=== PATIENT | male | born 1940 | race Caucasian/White ===

== ENCOUNTER 2016-02-24 18:31 | Inpatient (IN) | payer OTHER ==
[~2016-02-24] VITALS: Ht 165.1 cm; Wt 79.9 kg
[~2016-02-24 18:31] MED LIST: ASPCH81X PO; CALC500C70 PO; CITA40TA12 PO; CLOP1TAB15 PO; FLUT0.15 NAE; GABA-112 PO; IPRA1AER2 INH; LEVO112T2 PO; LORA-741 PO; MULT-506 PO; NTRGSL/4 UT; OXYC-57 PO; POLY335019 PO; PROP80TA2 PO; SIMV20TA2 PO; TRIA37.5 PO
[2016-02-24] MEDS ORDERED: SODIUM CHLORIDE 0.9% 1000ML 1,000 ML IV STA ×2 (18:43→19:45)
[2016-02-24] MEDS ORDERED: SODIUM CHLORIDE 0.9% 1000ML 250 ML IV STA (18:43)
[2016-02-24 18:54] LABS: BASO % 0.1 %; BASO ABS # 0.02 K/uL (0-0.2); COMPLETE YES; EOS % 2.3 %; HEMATOCRIT 50.6 % (42-52); IG% 0.3 %; LYMPH % 8.4 %; LYMPH ABS # 1.12 K/uL (1.2-3.4); MEAN CELL VOLUME 93.4 fL (80-100); MEAN CORPUSCULAR HEMOGLOBIN 32.5 pg (25-34); MEAN CORPUSCULAR HGB CONC 34.8 g/dl (32-36); MEAN PLATELET VOLUME 10.3 fL (7.4-10.4); MONO % 6.4 %; NEUT % 82.5 %; PLATELET COUNT 170 K/uL (130-400); RED BLOOD COUNT 5.42 M/uL (4.7-6.1)
[2016-02-24 19:04] LABS: INR 1.1 (0.9-1.1); PARTIAL THROMBOPLASTIN RATIO 1.2; PROTHROMBIN TIME (PATIENT) 11.3 SECONDS (9.0-12.0)
[2016-02-24 19:13] LABS: ALB/GLOB RATIO 1.1 (0.9-2); BUN/CREATININE RATIO 13.6 (10-20); CALCIUM 9.4 mg/dl (8.5-10.1); CREATININE 1.1 mg/dl (0.60-1.40); POTASSIUM 4.2 mmol/L (3.5-5.1)
--- NOTE | 2016-02-24 19:46 | DIAGNOSTIC IMAGING REPORT ---
CHEST ONE VIEW PORTABLE HISTORY: Sepsis COMPARISON: Chest 06/12/2014. FINDINGS: Severe S-shaped scoliosis of the thoracolumbar spine. Old, healed left-sided rib fractures. Stable calcified granuloma within the right midlung zone. Hiatus hernia remains unchanged. The heart is normal in size. Right basilar linear densities favor subsegmental atelectasis. No evidence for pulmonary edema. No pleural effusions. No pneumothorax. Mild elevation the right hemidiaphragm remains unchanged. IMPRESSION: No significant change compared to the prior study. No acute process. Right basilar subsegmental atelectasis is again noted. Electronically signed by: Byron Collazo M.D. 02/24/2016 7:45 PM
[2016-02-24] MEDS ORDERED: SPRIN/30 INH (19:51)
[2016-02-24] MEDS ORDERED: RANI150T2 PO (19:51)
--- NOTE | 2016-02-24 20:06 | EMERGENCY ROOM VISIT NOTE ---
History Report prepared by Adal: Allen Morales Under the Supervision of: Dr. Ricardo Dill M.D. First contact with patient: 18:33 Chief Complaint: SHORTNESS OF BREATH Stated Complaint: SOB History of Present Illness The patient is a 75 year old male who presents to the Emergency Room by EMS with complaints of persistent shortness of breath beginning 1 week ago. He states that his symptoms worsened today after lunch several hours ago, and he began experiencing "shakiness". He states that his shortness of breath has been so bad that it has made it difficult for him to get out of bed. He denies any dizziness, fevers, vomiting, abdominal pain or leg swelling. The patient notes that he has experienced some chest pain radiating into his arm. He has a history of a previous [place] occurring several years ago, and is on Plavix. He states that he wears 3 L of oxygen at night, but otherwise is not on supplemental oxygen during the day. The patient has a history of asthma and a familial tremor. He has associated mild cough. He denies any recent falls or trauma. Source of History: patient Onset: 1 week ago Quality: other (shortness of breath) Timing: other (persistent) Associated Symptoms: + cough, No abdominal pain, No fevers, No vomiting Note: He denies any leg swelling or dizziness. He has associated increased "shakiness ". Review of Systems See HPI for pertinent positives & negatives. A total of 10 systems reviewed and were otherwise negative. Past Medical & Surgical Medical Problems: (1) CAD (coronary artery disease) (2) COPD (chronic obstructive pulmonary disease) (3) Depression (4) Dyslipidemia (5) Essential tremor (6) GERD (gastroesophageal reflux disease) (7) History of left heart catheterization (8) HTN (hypertension) (9) Hypothyroidism (10) EZEQUIEL (obstructive sleep apnea) (11) Scoliosis (12) Spinal stenosis Surgical Problems: (1) H/O cystoscopy (2) H/O lithotripsy (3) Stented coronary artery Old medical records were reviewed. Nurse's notes were reviewed and I agree with. Family History Heart disease Social History Smoking Status: Former Smoker Alcohol Use: none Drug Use: none Marital Status: single Housing Status: lives alone Occupation Status: retired Current/Historical Medications Scheduled Aspirin (Aspirin Chewable), 81 MG PO QAM Calcium/Vitamin D (Os-Familia 500 Plus D), 1 TAB PO QAM Citalopram Hydrobromide (Celexa), 40 MG PO QAM Clopidogrel (Plavix), 75 MG PO QAM Gabapentin (Neurontin), 100 MG PO TID Levothyroxine Sodium (Synthroid), 112 MCG PO QAM Multivitamin (Multivitamin), 1 TAB PO QAM Nitroglycerin (Nitrostat), 0.4 MG UT PRN Oxygen (Oxygen), 3 LITERS NA HS Propranolol (Inderal), 80 MG PO TID Ranitidine HCl (Ranitidine HCl), 150 MG PO BID Simvastatin (Zocor), 20 MG PO QPM Triamterene/Hctz (Dyazide 37.5MG/25MG), 1 TAB PO QAM Scheduled PRN Benzonatate (Tessalon Perles), 100 MG PO TID PRN for Cough Fluticasone Propionate (Nasal) (Flonase Allergy Relief), 1 SPRAY KAYLEN DAILY PRN for PRN Ipratropium-Albuterol (Combivent Respimat), 1 PUFFS INH QID PRN for Shortness of Breath Lorazepam (Ativan), 0.5 MG PO TID PRN for ANX OR TREMORS Oxycodone/Acetaminophen 5MG/325MG (Percocet 5MG/325MG), 1 TAB PO Q8H PRN for Pain Polyethylene Glycol 3350 (Miralax), 17 GM PO DAILY PRN for Constipation Tiotropium [place] (Spiriva Handihaler), 1 PUFF INH DAILY PRN for SOB/Wheezing Allergies Coded Allergies: Grapefruit (Verified Allergy, Unknown, WAS TOLD NOT TO TAKE, 02/24/16) NO KNOWN DRUG ALLERGIES (Verified Allergy, Unknown, ., 09/03/15) Physical Exam Vital Signs Date Time Temp Pulse Resp B/P Pulse Ox O2 Delivery O2 Flow Rate FiO2 02/24/16 20:17 37.2 02/24/16 19:55 67 28 110/74 02/24/16 19:31 67 02/24/16 18:52 97 Nasal Cannula 4.0 02/24/16 18:52 85 Room Air 02/24/16 18:51 36.7 69 30 123/82 85 Room Air Physical Exam General: Well developed, well nourished, non-ill appearing, older male in no acute distress. Baseline familial tremor noted. HEENT: Normal cephalic atraumatic. Pupils are equal round and reactive to light. Extraocular movements are intact. Oropharynx is pink with moist mucous membranes. No swelling of the mouth lips or tongue. Neck: Supple with a midline trachea. No meningeal signs or stiffness, no JVD or bruits. No Stridor. Chest: Clear to auscultation bilaterally. No wheezes or rhonchi. No increased work of breathing. Heart: regular rate and rhythm. Abdomen: Soft nontender, nondistended without rebound guarding or rigidity. Extremities: No cyanosis clubbing or edema. No calf tenderness or assymetry Spine/Back. Non tender to palpation. No CVA tenderness Skin: Good turgor without rashes. Neurologic exam: Cranial nerves two through 12 are intact. Motor and sensation are intact and symmetrical throughout. Medical Decision & Procedures ER Provider Diagnostic Interpretation: X-ray results as stated below per interpretation by me and the radiologist: CHEST ONE VIEW PORTABLE FINDINGS: Severe S-shaped scoliosis of the thoracolumbar spine. Old, healed left-sided rib fractures. Stable calcified granuloma within the right midlung zone. Hiatus hernia remains unchanged. The heart is normal in size. Right basilar linear densities favor subsegmental atelectasis. No evidence for pulmonary edema. No pleural effusions. No pneumothorax. Mild elevation the right hemidiaphragm remains unchanged. IMPRESSION: No significant change compared to the prior study. No acute process. Right basilar subsegmental atelectasis is again noted. Electronically signed by: Byron Collazo M.D. Laboratory Results Test 02/24/16 18:16 02/24/16 19:09 02/24/16 19:23 02/24/16 19:26 Immature Granulocyte % (Auto) 0.3 % White Blood Count 13.40 K/uL (4.8-10.8) Red Blood Count 5.42 M/uL (4.7-6.1) Hemoglobin 17.6 g/dL (14.0-18.0) Hematocrit 50.6 % (42-52) Mean Corpuscular Volume 93.4 fL (80-100) Mean Corpuscular Hemoglobin 32.5 pg (25-34) Mean Corpuscular Hemoglobin Concent 34.8 g/dl (32-36) Platelet Count 170 K/uL (130-400) Mean Platelet Volume 10.3 fL (7.4-10.4) Neutrophils (%) (Auto) 82.5 % Lymphocytes (%) (Auto) 8.4 % Monocytes (%) (Auto) 6.4 % Eosinophils (%) (Auto) 2.3 % Basophils (%) (Auto) 0.1 % Neutrophils # (Auto) 11.05 K/uL (1.4-6.5) Lymphocytes # (Auto) 1.12 K/uL (1.2-3.4) Monocytes # (Auto) 0.86 K/uL (0.11-0.59) Eosinophils # (Auto) 0.31 K/uL (0-0.5) Basophils # (Auto) 0.02 K/uL (0-0.2) Immature Granulocyte # (Auto) 0.04 K/uL (0.00-0.02) Prothrombin Time 11.3 SECONDS (9.0-12.0) Prothromb Time International Ratio 1.1 (0.9-1.1) Activated Partial Thromboplast Time 30.5 SECONDS (21.0-31.0) Partial Thromboplastin Ratio 1.2 D-Dimer 370 ug/L FEU (0-500) Total Bilirubin 0.7 mg/dl (0.2-1) Aspartate Amino Transf (AST/SGOT) 23 U/L (15-37) Alanine Aminotransferase (ALT/SGPT) 26 U/L (12-78) Alkaline Phosphatase 100 U/L (45-117) Total Protein 8.0 gm/dl (6.4-8.2) Albumin 4.1 gm/dl (3.4-5.0) Globulin 3.9 gm/dl (2.5-4.0) Albumin/Globulin Ratio 1.1 (0.9-2) Chemistry Specimen Hemolysis Bedside Troponin I 0.000 ng/ml (0-0.045) Influenza Type A Antigen Neg for Influ A (NEG) Influenza Type B Antigen Neg for Influ B (NEG) Bedside Lactic Acid Venous 1.44 mmol/L (0.90-1.70) Laboratory studies as stated above per my review. Medications Administered Medications (Trade) Dose Ordered Sig/Ann Route Start Time Stop Time Status Last Admin Dose Admin Sodium Chloride 250 ml @ 999 mls/hr Q16M STAT IV 02/24/16 18:43 02/24/16 18:58 DC 02/24/16 18:49 999 MLS/HR Sodium Chloride 1,000 ml @ 100 mls/hr Q10H STAT IV 02/24/16 18:43 02/24/16 22:43 DC 02/24/16 18:49 100 MLS/HR Sodium Chloride (Nss 1000ml) 1,000 ml @ 999 mls/hr Q1H1M STAT IV 02/24/16 19:45 02/24/16 20:45 DC 02/24/16 19:55 999 MLS/HR Levofloxacin 750 mg 750 mg NOW ONCE IV 02/24/16 20:15 02/24/16 20:16 DC 02/24/16 20:25 750 MG Sodium Chloride (Nss 1000ml) 1,000 ml @ 50 mls/hr Q20H IV 02/24/16 21:23 03/25/16 21:22 02/25/16 20:49 50 MLS/HR ECG Indication: SOB/dyspnea Rate (beats per minute): 76 Rhythm: normal sinus Findings: other (Poor baseline secondary to tremor. No definite ischemic change. ) Comparison ECG Date: May 23, 2014 Change: no significant change ED Course 1831: Past medical records reviewed. The patient was evaluated in room B10, and a complete history and physical examination were performed. 1842: Ordered NSS 1000 mL @ 100 mL/hr IV, NSS 250 mL @ 999 mL/hr IV. 1944: Ordered NSS 1000 mL @ 999 mL/hr IV. 2014: Ordered Levaquin / D5w 750 mg IV. Upon reevaluation, the patient is resting comfortably. I discussed the results and treatment plan with the patient. He verbalized agreement of the treatment plan. 2024: The patient will be evaluated for further management. Medical Decision Differentials include, but are not limited to; sepsis, pneumonia, acute coronary syndrome, anemia, arrhythmia, UTI, and electrolyte or metabolic abnormality. This patient comes in as described above. He was laced in room B 10. He had an episode where he felt very shaky at home. He is also had some shortness of breath and was noted to be hypoxemic although present feels much better. EKG, and multiple blood testing was obtained. chest x-ray was obtained. Blood cultures were obtained and a sepsis pathway was initiated. He was hydrated with IV normal saline. He's been normotensive here and he has nothing to suggest septic shock. He was given Levaquin 750 mgs IV for likely pulmonary etiology. EKG does not suggest acute coronary syndrome or arrhythmias. He has no acute electrolyte or metabolic abnormalities. He has remained stable. Given his episode of rigors, I do think he needs to be admitted ruled out for sepsis. There may also been a COPD exacerbation and he will also need to be ruled out for cardiac event. I did consult the [facility] hospitalist. Consults Time Called: 2014 Consulting Physician: Dr. Ramses Allen Returned Call: 2024 Discussed the patient's case. The patient will be evaluated for further evaluation. Impression Primary Impression: Hypoxemia Additional Impression: COPD exacerbation Scribe Attestation The scribe's documentation has been prepared under my direction and personally reviewed by me in its entirety. I confirm that the note above accurately reflects all work, treatment, procedures, and medical decision making performed by me. Departure Information Dispostion Being Evaluated By Hospitalist Referrals Fawad Espinal D.O. (PCP) Patient Instructions A Signature Page, My [facility]
[2016-02-24] MEDS ORDERED: LEVAQUIN 750MG / 150ML D5W IV ONE (20:15)
[2016-02-24] MEDS ORDERED: NITROGLYCERIN 0.4 MG SL PER TAB CHARGE SL PRN (21:30)
[2016-02-24] MEDS ORDERED: ONDANSETRON INJ 2 MG/ML 2 ML VIAL IV PRN (21:30)
[2016-02-24] MEDS ORDERED: OXGN (21:44)
[2016-02-24] MEDS ORDERED: BENZ100C18 PO (21:44)
--- NOTE | 2016-02-24 22:16 | History and Physical ---
History & Physical Date & Time of Service: Feb 24, 2016 at 21:46 Chief Complaint: SOB Primary Care Physician: Fawad Espinal D.O. History of Present Illness Source: patient This is a 75 y/o male with PMHx of COPD on 3 L O2 HS, CAD s/p stent placement, essential tremor on Propranolol, HTN, Dyslipidemia and other problems as outlined below who presents to the ED via EMS c/o worsening SOB that began this afternoon. At baseline he is able to ambulate with no respiratory difficulty however this afternoon he was "huffing and puffing" with minimal exertion. His sxs were assoc with shaking chills, wheezing, nausea and 2 episodes of diarrhea. The shaking chills were so intense that he was having trouble ambulating. Pt has a history of essential tremor however this was much worse than usual to the point that he was afraid he might fall. He also mentions that early this evening he was laying in bed when he experienced 8/10 "sharp" L chest pain that radiated into his L arm. The pain lasted approx 15-20 seconds before resolving completely. Pt has a history of [place] in [place]. He feels that these sxs do not reflect those he felt with his heart attack. Pt has not had any sick contacts and got his flu shot this year. Pt denies fever, palpitations , SOB, worsening cough, wheezing, abd pain, vomiting, constipation, hematochezia , melena, bladder issues, LE edema, calf pain, lightheadedness/dizziness. In the ED, pt is tachy and hypoxic on room air on arrival. He is afebrile with leukocytosis >13k. POC lactic acid 1.44. Trop negative. Flu negative. CXR negative for acute process. EKG: NSR with no acute ischemic changes. Pt is currently chest pain free and will be admitted for further evaluation and treatment. Past Medical/Surgical History Medical Problems: (1) CAD (coronary artery disease) Status: Chronic (2) COPD (chronic obstructive pulmonary disease) Status: Chronic (3) Depression Status: Chronic (4) Dyslipidemia Status: Chronic (5) Essential tremor Status: Chronic (6) GERD (gastroesophageal reflux disease) Status: Chronic (7) History of left heart catheterization Status: Resolved (8) HTN (hypertension) Status: Chronic (9) Hypothyroidism Status: Chronic (10) EZEQUIEL (obstructive sleep apnea) Status: Chronic (11) Scoliosis Status: Chronic (12) Spinal stenosis Status: Chronic Surgical Problems: (1) H/O cystoscopy Status: Resolved (2) H/O lithotripsy Status: Resolved (3) Stented coronary artery Permanent Comment: bare metal stent to LAD 2009 Status: Resolved Family History Heart disease Social History Smoking Status: Former Smoker (sporadic cigar and pipe smoker for 30 years; quit 1985) Alcohol Use: occasionally Drug Use: none Marital Status: Housing status: lives alone Occupational Status: retired Immunizations History of Influenza Vaccine: Yes Influenza Vaccine Date: Nov 24, 2011 History of Tetanus Vaccine?: Unknown Tetanus Immunization Date: May 08, 2000 History of Pneumococcal: Yes Pneumococcal Date: Feb 19, 2002 History of Hepatitis B Vaccine: No Multi-Drug Resistant Organisms History of MDRO: Yes Type of MDRO: MRSA Allergies Coded Allergies: Grapefruit (Verified Allergy, Unknown, WAS TOLD NOT TO TAKE, 02/24/16) NO KNOWN DRUG ALLERGIES (Verified Allergy, Unknown, ., 09/03/15) Home Medications Scheduled Aspirin (Aspirin Chewable), 81 MG PO QAM Calcium/Vitamin D (Os-Familia 500 Plus D), 1 TAB PO QAM Citalopram Hydrobromide (Celexa), 40 MG PO QAM Clopidogrel (Plavix), 75 MG PO QAM Gabapentin (Neurontin), 100 MG PO TID Levothyroxine Sodium (Synthroid), 112 MCG PO QAM Multivitamin (Multivitamin), 1 TAB PO QAM Nitroglycerin (Nitrostat), 0.4 MG UT PRN Oxygen (Oxygen), 3 LITERS NA HS Propranolol (Inderal), 80 MG PO TID Ranitidine HCl (Ranitidine HCl), 150 MG PO BID Simvastatin (Zocor), 20 MG PO QPM Triamterene/Hctz (Dyazide 37.5MG/25MG), 1 TAB PO QAM Scheduled PRN Benzonatate (Tessalon Perles), 100 MG PO TID PRN for Cough Fluticasone Propionate (Nasal) (Flonase Allergy Relief), 1 SPRAY KAYLEN DAILY PRN for PRN Ipratropium-Albuterol (Combivent Respimat), 1 PUFFS INH QID PRN for Shortness of Breath Lorazepam (Ativan), 0.5 MG PO TID PRN for ANX OR TREMORS Oxycodone/Acetaminophen 5MG/325MG (Percocet 5MG/325MG), 1 TAB PO Q8H PRN for Pain Polyethylene Glycol 3350 (Miralax), 17 GM PO DAILY PRN for Constipation Tiotropium [place] (Spiriva Handihaler), 1 PUFF INH DAILY PRN for SOB/Wheezing Review of Systems Constitutional: + chills, + fatigue, + sweats, + weakness, No fever Eyes: No worsening of vision ENT: No nasal symptoms, No sore throat Respiratory: + cough (unchanged from baseline), + dyspnea at rest, + dyspnea on exertion, + shortness of breath, + wheezing Cardiovascular: + chest pain, No claudication, No edema, No palpitations Abdomen: + diarrhea, + nausea, No GI bleeding, No constipation, No pain, No vomiting Musculoskeletal: No calf pain, No swelling Genitourinary - Male: No dysuria, No hematuria Neurologic: No weakness Psychiatric: No depression symptoms Endocrine: + fatigue Hematologic / Lymphatic: No abnormal bleeding/bruising Integumentary: No new/changing skin lesions Physical Exam Vital Signs Date Time Temp Pulse Resp B/P Pulse Ox O2 Delivery O2 Flow Rate FiO2 02/24/16 20:17 37.2 02/24/16 19:55 67 28 110/74 02/24/16 19:31 67 02/24/16 18:52 97 Nasal Cannula 4.0 02/24/16 18:52 85 Room Air 02/24/16 18:51 36.7 69 30 123/82 85 Room Air General Appearance: WD/WN, no apparent distress, + pertinent finding (Pt is sitting up in bed in NAD) Head: normocephalic, atraumatic Eyes: normal inspection ENT: hearing grossly normal Neck: supple Respiratory/Chest: chest non-tender, no respiratory distress, no accessory muscle use, + wheezing, + pertinent finding (no crackles noted) Cardiovascular: regular rate, rhythm, no edema, no murmur Abdomen/GI: normal bowel sounds, non tender, soft Back: normal inspection Extremities/Musculoskelatal: normal inspection, no calf tenderness, no pedal edema Neurologic/Psych: alert, normal mood/affect, oriented x 3 Skin: normal color, warm/dry Diagnostics Laboratory Results Results Past 24 Hours Test 02/24/16 18:16 02/24/16 19:09 02/24/16 19:23 02/24/16 19:26 Range/Units White Blood Count 13.40 4.8-10.8 K/uL Red Blood Count 5.42 4.7-6.1 M/uL Hemoglobin 17.6 14.0-18.0 g/dL Hematocrit 50.6 42-52 % Mean Corpuscular Volume 93.4 80-100 fL Mean Corpuscular Hemoglobin 32.5 25-34 pg Mean Corpuscular Hemoglobin Concent 34.8 32-36 g/dl Platelet Count 170 130-400 K/uL Mean Platelet Volume 10.3 7.4-10.4 fL Neutrophils (%) (Auto) 82.5 % Lymphocytes (%) (Auto) 8.4 % Monocytes (%) (Auto) 6.4 % Eosinophils (%) (Auto) 2.3 % Basophils (%) (Auto) 0.1 % Neutrophils # (Auto) 11.05 1.4-6.5 K/uL Lymphocytes # (Auto) 1.12 1.2-3.4 K/uL Monocytes # (Auto) 0.86 0.11-0.59 K/uL Eosinophils # (Auto) 0.31 0-0.5 K/uL Basophils # (Auto) 0.02 0-0.2 K/uL RDW Standard Deviation 47.8 36.4-46.3 fL RDW Coefficient of Variation 14.1 11.5-14.5 % Immature Granulocyte % (Auto) 0.3 % Immature Granulocyte # (Auto) 0.04 0.00-0.02 K/uL Prothrombin Time 11.3 9.0-12.0 SECONDS Prothromb Time International Ratio 1.1 0.9-1.1 Activated Partial Thromboplast Time 30.5 21.0-31.0 SECONDS Partial Thromboplastin Ratio 1.2 Sodium Level 141 136-145 mmol/L Potassium Level 4.2 3.5-5.1 mmol/L Chloride Level 101 98-107 mmol/L Carbon Dioxide Level 29 21-32 mmol/L Anion Gap 11.0 3-11 mmol/L Blood Urea Nitrogen 15 7-18 mg/dl Creatinine 1.10 0.60-1.40 mg/dl Est Creatinine Clear Calc Drug Dose 56.8 ml/min Estimated GFR () 76.2 Estimated GFR (Non- 65.8 BUN/Creatinine Ratio 13.6 10-20 Random Glucose 103 70-99 mg/dl Calcium Level 9.4 8.5-10.1 mg/dl Total Bilirubin 0.7 0.2-1 mg/dl Aspartate Amino Transf (AST/SGOT) 23 15-37 U/L Alanine Aminotransferase (ALT/SGPT) 26 12-78 U/L Alkaline Phosphatase 100 45-117 U/L Total Protein 8.0 6.4-8.2 gm/dl Albumin 4.1 3.4-5.0 gm/dl Globulin 3.9 2.5-4.0 gm/dl Albumin/Globulin Ratio 1.1 0.9-2 Chemistry Specimen Hemolysis Bedside Troponin I 0.000 0-0.045 ng/ml Influenza Type A Antigen Neg for Influ A NEG Influenza Type B Antigen Neg for Influ B NEG Bedside Lactic Acid Venous 1.44 0.90-1.70 mmol/L Test 02/24/16 21:29 02/24/16 21:35 Range/Units Microbiology Results 02/24/16 Blood Culture, Received Pending 02/24/16 Blood Culture, Received Pending Diagnostic Radiology CXR IMPRESSION: No significant change compared to the prior study. No acute process. Right basilar subsegmental atelectasis is again noted. EKG EKG: NSR at 76 bpm with no definite ischemic changes; no change when compared to EKG from 05/23/14 Impression Assessment and Plan ACUTE HYPOXIC RESPIRATORY FAILURE LIKELY SECONDARY TO COPD; R/O PE pt presents with SOB assoc with shaking chills, chest pain and wheezing; h/o COPD -admit to telemetry -pt is hypoxic and tachy on arrival; now saturating well on 4L O2 -afebrile with leukocytosis >13k -CXR negative for acute process -negative flu -POC lactic acid 1.44; check lab value -check d-dimer to r/o PE -start IVF, Levaquin, Solu-Medrol and duonebs -cont supplemental O2 -monitor ATYPICAL CHEST PAIN R/O ACS pt reports fleeting L sided chest pain radiating down L arm; h/o CAD s/p stent to LAD -RFs include prior [place], prior tobacco use, HTN, dyslipidemia, sex and age -Initial trop is negative; continue to monitor with serial cardiac enzymes -EKG negative for ischemic change; repeat EKG PRN chest pain and in AM -obtain echo to r/o cardiac wall motion abnormalities -cont ASA, Plavix and statin -consider cardiology consult if [place]mina trend up -pt is currently chest pain free -continue to monitor NAUSEA/DIARRHEA; POSSIBLE GASTROENTERITIS -stool culture and C.diff-pending -electrolytes WNL; check magnesium -cont IVF -monitor AMBULATORY DYSFUNCTION -h/o tremor -fall precautions -PT/OT eval ESSENTIAL TREMOR -cont Propranolol -follows with neuro, Dr. Melara BACK PAIN WITH H/O CHRONIC BACK PAIN -Aleve and oxycodone PRN HYPOTHYROIDISM -cont levothyroxine DEPRESSION/ANXIETY -increased stress recently due to son with recent health problems and daughter going through divorce -cont Celexa -cont Ativan PRN GERD -cont Zantac HTN -stable -cont Maxzide and Propranolol -documented intolerance to EDITH-I -monitor DYSLIPIDEMIA -cont statin DVT PROPHYLAXIS -subq Lovenox CODE STATUS -FULL CODE per discussion with patient DISPO Pt seen in collaboration with Dr. Pearce. Please see his addendum for further details. Thanks! ADDENDUM: This is a 75 year old male with COPD, CAD, essential tremor presented with chills, shortness of breath - requiring O2 in the ER for improvement of oxygen saturation; also c/o chest pain at the left side with radiation to the left arm. +wheezing on exam; otherwise, no distress/benign exam Acute Respiratory Failure is likely secondary to COPD exacerbation - will continue solu-medrol; possible pneumonia? continue levaquin and oxygen as needed (uses 3L nocturnally) - continue nebulization. d-dimer wnl, no sign of sepsis. Rule Out ACS due to chest pain Otherwise, management as above. VTE Prophylaxis VTE Risk Assessment Done? Y/N: Yes Risk Level: Moderate
[2016-02-24 22:47] VITALS: BP 126/79; PULSE 66; TEMP 36.5; O2SAT 96; Ht 165.1 cm; Wt 79.9 kg
[2016-02-24 23:35] LABS: URINE APPEARANCE CLEAR (CLEAR); URINE BILIRUBIN NEG (NEG); URINE COLOR YELLOW; URINE NITRITE NEG (NEG); URINE PH 5.5 (4.5-7.5); URINE SPECIFIC GRAVITY 1.014 (1.000-1.030); UROBILINOGEN NEG (NEG)
[2016-02-24 23:38] LABS: MANUAL MICROSCOPIC REQUIRED? NO; REVIEW REQ? NO
[2016-02-24] MEDS: SODIUM CHLORIDE 0.9% 1000ML 1,000 ML IV SCH (23:48)
[2016-02-24 23:59] VITALS: O2SAT 96
[2016-02-25] VITALS (12 sets, daily range): BP systolic 97–125; BP diastolic 59–79; PULSE 60–80; TEMP 36.3–36.8; O2SAT 91–95
[2016-02-25] MEDS: METHYLPREDNISOLONE IV 40 MG in SYRINGE 0 ML IV SCH ×4 (00:07→23:56)
[2016-02-25] MEDS: NAPROXEN 250 MG TAB PO PRN (02:13)
[2016-02-25] MEDS: ACETAMINOPHEN 325 MG TAB PO PRN (06:17)
[2016-02-25] MEDS ORDERED: PERFLUTREN LIPID MICROSPHERE (DEFINITY) IV ONE (07:35)
[2016-02-25] MEDS: ALBUT/IPRATROP 3MG/0.5MG NEB 3 ML VIAL INH SCH ×4 (08:00→19:11)
[2016-02-25 08:23] LABS: HEMATOCRIT 45.3 % (42-52); MEAN CELL VOLUME 92.3 fL (80-100); MEAN CORPUSCULAR HGB CONC 34.7 g/dl (32-36); MEAN PLATELET VOLUME 9.8 fL (7.4-10.4); PLATELET COUNT 142 K/uL (130-400); RED BLOOD COUNT 4.91 M/uL (4.7-6.1); WHITE BLOOD COUNT 9.66 K/uL (4.8-10.8)
[2016-02-25] MEDS: ENOXAPARIN 40 MG/0.4 ML SYR SC SCH (08:27)
[2016-02-25] MEDS: SODIUM CHLORIDE 0.9% 1000ML 1,000 ML IV SCH ×2 (08:36→20:49)
--- NOTE | 2016-02-25 08:36 | ECHOCARDIOGRAM REPORT ---
*NOTICE TO RECEIVING [employer] This information is strictly Confidential and protected under [place] law. [place] law prohibits you from making any further disclosure of this information unless further disclosure is expressly permitted by the written consent of the person to whom it pertains or is authorized by law. A general authorization for the release of medical or other information is not sufficient for this purpose. Hospital accepts no responsibility if the information is made available to any other person, INCLUDING THE PATIENT. Interpretation Summary * Name: BLANCA MAHONEY Study Date: 02/25/2016 07:09 AM BP: 97/59 mmHg * Patient Location: .2T\S\S233\S\1 HR: 72 * : 1940 (M/d/yyyy) Gender: Male Height: 65 in * Age: 75 yrs Ethnicity: [place] Weight: 171 lb * Ordering Physician: Sachi Gomez * Referring Physician: Self, Referred * Performed By: [facility] * * Reason For Study: Chest Pain * BSA: 1.9 m2 * -- Conclusions -- * Normal LV chamber size and wall thickness. * Normal LV systolic function, EF 60-65%. * No segmental left ventricular wall motion abnormalities are noted. * Grade I diastolic dysfunction. * No significant valvular pathology. Procedure Details * A complete two-dimensional transthoracic echocardiogram was performed (2D, M-mode, Doppler and color flow Doppler). * A contrast injection of Definity was performed to improve assessment of LV function. * Contrast was injected into an intravenous site in the left arm. * One vial of Definity ultrasound contrast was diluted in normal saline to a total volume of 10 ml. A total of '2' ml of solution was administered during imaging. * Lot # [id number] of Definity utilized for procedure. * Expiration date 1JUN. * The attending nurse who injected the contrast agent was KORIN Hanson. Left Ventricle * The left ventricle is normal in size. * There is normal left ventricular wall thickness. * Left ventricular systolic function is normal. * No segmental left ventricular wall motion abnormalities are noted. * Ejection Fraction = 60-65%. * The left ventricular wall motion is normal. Right Ventricle * The right ventricular cavity size is normal (basal dimension <4.2 cm in right ventricular apical 4-chamber view). * The right ventricular systolic function is normal as assessed by tricuspid annular plane systolic excursion (TAPSE) (normal >1.5 cm). Atria * The left atrial size is normal. * Right atrial size is normal. * No ASD detected; PFO is not assessed. Mitral Valve * The mitral valve is normal in structure and function. Tricuspid Valve * The tricuspid valve is normal in structure and function. Aortic Valve * The aortic valve is normal in structure and function. Pulmonic Valve * The pulmonary valve is not well seen, but the Doppler examination is normal without significant regurgitation or stenosis. Great Vessels * The aortic root is normal size. Pericardium/Pleural * There is no pericardial effusion. Left Ventricular Diastolic Function * Grade I diastolic dysfunction, (abnormal relaxation pattern). MMode 2D Measurements and Calculations IVSd 0.96 cm IVSs 1.2 cm LVIDd 4.4 cm LVIDs 2.8 cm LVPWd 1.0 cm LVPWs 1.2 cm IVS/LVPW 0.92 FS 35.5 % EDV(Teich) 85.5 ml ESV(Teich) 29.7 ml EF(Teich) 65.2 % EDV(cubed) 82.4 ml ESV(cubed) 22.1 ml EF(cubed) 73.2 % % IVS thick 22.0 % % LVPW thick 20.4 % LV mass(C)d 144.5 grams LV mass(C)dI 78.1 grams/m\S\2 LV mass(C)s 100.6 grams LV mass(C)sI 54.3 grams/m\S\2 CO(Teich) 3.3 l/min CI(Teich) 1.8 l/min/m\S\2 SV(Teich) 55.8 ml SI(Teich) 30.1 ml/m\S\2 CO(cubed) 3.6 l/min CI(cubed) 1.9 l/min/m\S\2 SV(cubed) 60.3 ml SI(cubed) 32.6 ml/m\S\2 Ao root diam 3.4 cm Ao root area 9.3 cm\S\2 ACS 1.9 cm LA dimension 3.4 cm LA/Ao 0.99 LVAd ap4 31.0 cm\S\2 LVLd ap4 8.7 cm EDV(MOD-sp4) 93.0 ml LVAs ap4 15.3 cm\S\2 LVLs ap4 6.6 cm ESV(MOD-sp4) 32.0 ml EF(MOD-sp4) 65.6 % LVAd ap2 29.0 cm\S\2 LVLd ap2 8.3 cm EDV(MOD-sp2) 88.0 ml LVAs ap2 15.9 cm\S\2 LVLs ap2 6.7 cm ESV(MOD-sp2) 32.0 ml EF(MOD-sp2) 63.6 % CO(MOD-sp4) 3.6 l/min CI(MOD-sp4) 1.9 l/min/m\S\2 SV(MOD-sp4) 61.0 ml SI(MOD-sp4) 33.0 ml/m\S\2 CO(MOD-sp2) 3.3 l/min CI(MOD-sp2) 1.8 l/min/m\S\2 SV(MOD-sp2) 56.0 ml SI(MOD-sp2) 30.3 ml/m\S\2 Doppler Measurements and Calculations MV E max hafsa 62.7 cm/sec MV A max hafsa 92.6 cm/sec MV E/A 0.68 MV P1/2t max hafsa 69.5 cm/sec MV P1/2t 41.4 msec MVA(P1/2t) 5.3 cm\S\2 MV dec slope 492.0 cm/sec\S\2 MV dec time 0.25 sec Ao V2 max 107.4 cm/sec Ao max PG 4.6 mmHg Ao max PG (full) 0.56 mmHg LV V1 max PG 4.1 mmHg LV V1 max 100.7 cm/sec PA V2 max 82.6 cm/sec PA max PG 2.7 mmHg PI max hafsa 206.3 cm/sec PI max PG 17.1 mmHg PI dec slope 130.5 cm/sec\S\2 PI P1/2t 463.0 msec
[2016-02-25 08:46] LABS: BLOOD UREA NITROGEN 17 mg/dl (7-18); BUN/CREATININE RATIO 15.6 (10-20); CALCIUM 8.7 mg/dl (8.5-10.1); CARBON DIOXIDE 30 mmol/L (21-32); CHLORIDE 102 mmol/L (98-107); GLUCOSE 140 mg/dl (70-99); POTASSIUM 3.5 mmol/L (3.5-5.1); SODIUM 140 mmol/L (136-145)
[2016-02-25] MEDS ORDERED: POLYETHYLENE (MIRALAX) 17 GM PACK PO PRN (14:00)
[2016-02-25] MEDS ORDERED: BENZONATATE 100MG CAP PO PRN (14:00)
[2016-02-25] MEDS ORDERED: TIOTROPIUM BROMIDE 5 PUFF/90 MCG INH INH PRN (14:00)
[2016-02-25] MEDS ORDERED: NITROGLYCERIN 0.4 MG SL PER TAB CHARGE UT SCH (14:00)
[2016-02-25] MEDS ORDERED: OXYCODONE/ACETAMINOPHEN 5-325 TAB PO PRN (14:00)
[2016-02-25] MEDS ORDERED: FLUTICASONE PROPIONATE NA SPR 16 GM BTL NAE PRN (14:00)
[2016-02-25] MEDS ORDERED: LORAZEPAM 0.5 MG TAB PO PRN (14:00)
[2016-02-25] MEDS ORDERED: IPRATROPIUM BROMIDE/ALBUTEROL respimat INH INH PRN (14:00)
[2016-02-25] MEDS: GABAPENTIN 100 MG CAP PO SCH ×2 (15:51→21:14)
[2016-02-25] MEDS: PROPRANOLOL HCL 80 MG TAB PO SCH ×2 (15:51→21:13)
--- NOTE | 2016-02-25 20:00 | Progress Note ---
Internal Med Progress Note Date of Service: Feb 25, 2016. Provider Documentation: SUBJECTIVE: has some sob and cough chest pain resolved afebrile no nausea has some lower abdominal tenderness shaky OBJECTIVE: Vital Signs-as noted below Exam: General-alert and oriented x 3 shaky ENT-normal hearing Neck-no neck masses Lungs-cta b/l no wheezing or crackles Heart-s1 and s2 heard regular rate and rhythm, no murmurs Abdomen-soft bowel sounds present non tender no distension Extremities-no edema no erythema Neuro-alert and awake moves extremities Lab data as noted below. ASSESSMENT & PLAN: ACUTE HYPOXIC RESPIRATORY FAILURE LIKELY SECONDARY TO COPD; R/O PE pt presents with SOB assoc with shaking chills, chest pain and wheezing; h/o COPD CXR negative d dimer negative on oxygen, nebs and Levaquin continue same ATYPICAL CHEST PAIN R/O ACS pt reports fleeting L sided chest pain radiating down L arm; h/o CAD s/p stent to LAD ekg and CE negative echo unremarkable To cont ASA, Plavix and statin currently asymptomatic NAUSEA/DIARRHEA; POSSIBLE GASTROENTERITIS stool culture and C.diff-pending on gentle fluids will monitor AMBULATORY DYSFUNCTION h/o tremor fall precautions PT/OT eval ESSENTIAL TREMOR on Propranolol follows with neuro, Dr. Melara BACK PAIN WITH H/O CHRONIC BACK PAIN On Aleve and oxycodone PRN HYPOTHYROIDISM On levothyroxine DEPRESSION/ANXIETY increased stress recently due to son with recent health problems and daughter going through divorce on Celexa Ativan PRN GERD Zantac HTN Stable on Maxzide and Propranolol documented intolerance to EDITH-I will monitor DYSLIPIDEMIA On statin DVT PROPHYLAXIS subq Lovenox CODE STATUS. FULL CODE DISPOSITION to be determined Vital Signs: Date Time Temp Pulse Resp B/P Pulse Ox O2 Delivery O2 Flow Rate FiO2 02/25/16 19:14 69 16 93 Nasal Cannula 4.0 02/25/16 16:00 Nasal Cannula 4.0 Free Flow/Blowby 02/25/16 15:56 68 16 93 Nasal Cannula 4.0 02/25/16 15:23 36.4 70 20 117/77 95 Nasal Cannula 3.5 02/25/16 13:41 95 02/25/16 12:00 Nasal Cannula 4.0 Free Flow/Blowby 02/25/16 11:18 36.8 62 22 118/74 93 Nasal Cannula 4.0 02/25/16 10:56 64 16 94 Nasal Cannula 4.0 02/25/16 08:05 36.3 80 60 110/79 92 Ambu-Bag 4.0 02/25/16 08:00 Nasal Cannula 4.0 Free Flow/Blowby 02/25/16 07:58 36.5 60 15 91 Ambu-Bag 4.0 91 Free Flow/Blowby 02/25/16 04:00 95 Nasal Cannula 4.0 02/25/16 04:00 36.6 72 17 97/59 91 Nasal Cannula 4.0 02/25/16 00:10 36.6 63 22 118/73 93 Nasal Cannula 4.0 02/24/16 23:59 96 Nasal Cannula 4.0 02/24/16 22:47 36.5 66 22 126/79 96 Nasal Cannula 4.0 02/24/16 22:15 67 20 105/67 98 Room Air 02/24/16 20:17 37.2 02/24/16 19:55 67 28 110/74 Lab Results: Results Past 24 Hours Test 02/24/16 21:35 02/24/16 23:17 02/25/16 00:49 02/25/16 07:00 Range/Units Lactic Acid Level 1.7 0.4-2.0 mmol/L Urine Color YELLOW Urine Appearance CLEAR CLEAR Urine pH 5.5 4.5-7.5 Urine Specific [place] 1.014 1.000-1.030 Urine Protein NEG NEG Urine Glucose (UA) NEG NEG Urine Ketones NEG NEG Urine Occult Blood NEG NEG Urine Nitrite NEG NEG Urine Bilirubin NEG NEG Urine Urobilinogen NEG NEG Urine Leukocyte Esterase NEG NEG Creatine Kinase MB 0.7 0.5-3.6 ng/ml Creatine Kinase MB Ratio 0-3.0 Troponin I < 0.015 0-0.045 ng/ml Test 02/25/16 08:10 Range/Units White Blood Count 9.66 4.8-10.8 K/uL Red Blood Count 4.91 4.7-6.1 M/uL Hemoglobin 15.7 14.0-18.0 g/dL Hematocrit 45.3 42-52 % Mean Corpuscular Volume 92.3 80-100 fL Mean Corpuscular Hemoglobin 32.0 25-34 pg Mean Corpuscular Hemoglobin Concent 34.7 32-36 g/dl RDW Standard Deviation 47.8 36.4-46.3 fL RDW Coefficient of Variation 14.3 11.5-14.5 % Platelet Count 142 130-400 K/uL Mean Platelet Volume 9.8 7.4-10.4 fL Sodium Level 140 136-145 mmol/L Potassium Level 3.5 3.5-5.1 mmol/L Chloride Level 102 98-107 mmol/L Carbon Dioxide Level 30 21-32 mmol/L Anion Gap 8.0 3-11 mmol/L Blood Urea Nitrogen 17 7-18 mg/dl Creatinine 1.10 0.60-1.40 mg/dl Est Creatinine Clear Calc Drug Dose 57.2 ml/min Estimated GFR () 76.2 Estimated GFR (Non- 65.8 BUN/Creatinine Ratio 15.6 10-20 Random Glucose 140 70-99 mg/dl Calcium Level 8.7 8.5-10.1 mg/dl Magnesium Level 2.0 1.8-2.4 mg/dl Creatine Kinase MB < 0.5 0.5-3.6 ng/ml Troponin I < 0.015 0-0.045 ng/ml Microbiology Results 02/24/16 Urine Culture, Received Pending
[2016-02-25] MEDS: RANITIDINE HCL 150 MG TAB PO SCH (21:14)
[2016-02-25] MEDS: SIMVASTATIN 20 MG TAB PO SCH (21:14)
[2016-02-25] MEDS: LEVOFLOXACIN / D5W 750 MG in PREMIXED IN D5W 150 ML IV SCH (21:20)
[2016-02-26] VITALS (9 sets, daily range): BP systolic 115–131; BP diastolic 69–82; PULSE 59–67; TEMP 36.4–36.7; O2SAT 93–96
[2016-02-26] MEDS: NAPROXEN 250 MG TAB PO PRN ×2 (03:28→19:27)
[2016-02-26] MEDS: LEVOTHYROXINE 112 MCG TAB PO SCH (06:11)
[2016-02-26] MEDS: ALBUT/IPRATROP 3MG/0.5MG NEB 3 ML VIAL INH SCH ×4 (07:16→20:13)
--- NOTE | 2016-02-26 09:03 | DIAGNOSTIC IMAGING REPORT ---
CHEST 2 VIEWS ROUTINE CLINICAL HISTORY: Shortness of breath and cough. COMPARISON STUDY: Chest radiograph February 24, 2016. FINDINGS: Evaluation is difficult given severe scoliosis of the thoracolumbar spine. There is no pneumothorax or pleural effusion. Linear right lung opacities favor atelectasis. There is a calcified granuloma within the right midlung. There is suspected left basilar opacity. Pulmonary vascularity is normal. Note is made of elevation of the right hemidiaphragm. IMPRESSION: 1. Left basilar opacity which may reflect atelectasis or consolidation. Radiographic follow up is recommended. 2. Linear right lung opacities which favor atelectasis. Possible small right pleural effusion. Electronically signed by: Abimael Feldman M.D. 02/26/2016 9:01 AM
[2016-02-26] MEDS: METHYLPREDNISOLONE IV 40 MG in SYRINGE 0 ML IV SCH ×2 (10:24→16:50)
[2016-02-26] MEDS: RANITIDINE HCL 150 MG TAB PO SCH ×2 (10:25→19:26)
[2016-02-26] MEDS: CALCIUM 600MG + VIT D 400 IU TAB PO SCH (10:25)
[2016-02-26] MEDS: CITALOPRAM 40 MG TAB PO SCH (10:25)
[2016-02-26] MEDS: PROPRANOLOL HCL 80 MG TAB PO SCH ×3 (10:26→19:28)
[2016-02-26] MEDS: CLOPIDOGREL BISULFATE 75 MG TAB PO SCH (10:26)
[2016-02-26] MEDS: GABAPENTIN 100 MG CAP PO SCH ×3 (10:26→19:27)
[2016-02-26] MEDS: TRIAMTERENE/HCTZ 37.5/25MG CAP PO SCH (10:27)
[2016-02-26] MEDS: ASPIRIN 81 MG ECTAB PO SCH (10:27)
[2016-02-26] MEDS: MULTIVITAMIN TAB PO SCH (10:28)
[2016-02-26] MEDS: ENOXAPARIN 40 MG/0.4 ML SYR SC SCH (10:29)
--- NOTE | 2016-02-26 11:15 | Progress Note ---
Internal Med Progress Note Date of Service: Feb 26, 2016. Provider Documentation: SUBJECTIVE: resting comfortably sob improved no abdominal pain diarrhea improved denies chest pain complains of nasal congestion says could not ambulate much because of shakiness and weakness OBJECTIVE: Vital Signs-as noted below Exam: General-alert and oriented x 3 shaky ENT-normal hearing Neck-no neck masses Lungs-cta b/l no wheezing or crackles Heart-s1 and s2 heard regular rate and rhythm, no murmurs Abdomen-soft bowel sounds present non tender no distension Extremities-no edema no erythema Neuro-alert and awake moves extremities Lab data as noted below. ASSESSMENT & PLAN: ACUTE HYPOXIC RESPIRATORY FAILURE LIKELY SECONDARY TO COPD; R/O PE pt presents with SOB assoc with shaking chills, chest pain and wheezing; h/o COPD CXR negative d dimer negative on oxygen, nebs and Levaquin improving pt/ot Flonase for nasal congestion continue same ATYPICAL CHEST PAIN R/O ACS pt reports fleeting L sided chest pain radiating down L arm; h/o CAD s/p stent to LAD ekg and CE negative echo unremarkable To cont ASA, Plavix and statin currently asymptomatic NAUSEA/DIARRHEA; POSSIBLE GASTROENTERITIS stool culture and C.diff-pending on gentle fluids improved will monitor AMBULATORY DYSFUNCTION h/o tremor fall precautions PT/OT eval ESSENTIAL TREMOR on Propranolol follows with neuro, Dr. Melara BACK PAIN WITH H/O CHRONIC BACK PAIN On Aleve and oxycodone PRN HYPOTHYROIDISM On levothyroxine DEPRESSION/ANXIETY increased stress recently due to son with recent health problems and daughter going through divorce on Celexa Ativan PRN GERD Zantac HTN Stable on Maxzide and Propranolol documented intolerance to EDITH-I will monitor DYSLIPIDEMIA On statin DVT PROPHYLAXIS subq Lovenox CODE STATUS. FULL CODE DISPOSITION pt/ot transfer to medical floor later in day if stable Vital Signs: Date Time Temp Pulse Resp B/P Pulse Ox O2 Delivery O2 Flow Rate FiO2 02/26/16 08:15 Nasal Cannula 3.0 Free Flow/Blowby 02/26/16 08:08 36.4 59 20 115/69 93 Nasal Cannula 3.0 02/26/16 07:16 60 16 93 Nasal Cannula 4.0 02/26/16 04:00 Nasal Cannula 4.0 Free Flow/Blowby 02/26/16 03:31 36.4 62 21 121/71 95 Nasal Cannula 3.0 02/26/16 00:01 Nasal Cannula 4.0 Free Flow/Blowby 02/25/16 23:46 36.5 67 21 116/72 94 Nasal Cannula 3.0 02/25/16 20:00 36.4 68 20 125/71 92 Nasal Cannula 4.0 02/25/16 20:00 95 Nasal Cannula 4.0 02/25/16 19:14 69 16 93 Nasal Cannula 4.0 02/25/16 16:00 Nasal Cannula 4.0 Free Flow/Blowby 02/25/16 15:56 68 16 93 Nasal Cannula 4.0 02/25/16 15:23 36.4 70 20 117/77 95 Nasal Cannula 3.5 02/25/16 13:41 95 02/25/16 12:00 Nasal Cannula 4.0 Free Flow/Blowby 02/25/16 11:18 36.8 62 22 118/74 93 Nasal Cannula 4.0 Lab Results: Microbiology Results 02/26/16 C.difficile Toxin B Gene (PCR), Received Pending 02/26/16 Shiga Toxin Test, Received Pending 02/26/16 Stool Culture, Received Pending
[2016-02-26] MEDS: FLUTICASONE PROPIONATE NA SPR 16 GM BTL SCH (13:18)
--- NOTE | 2016-02-26 13:21 | Clinical Documentation Query ---
CLINICAL DOCUMENTATION QUERY Dr. FERNANDES, Please indicate acuity level of COPD In your clinical opinion is this patient being managed for: ( ) COPD exacerbation ( ) COPD without exacerbation ( ) Other explanation of clinical findings (Please Explain) ( ) Unable to determine (Please Define) ( ) Need to Discuss ( ) Not Agree The medical record reflects the following clinical findings, treatment, and risk factors. Clinical Indicators: 75 yo male presenting with chest pain, wheezing. O2 sat 85% on RA, resp rate 30. H/P indicates pt has wheezing, dyspnea and cough at time of admission. H/P does not specify acuity level of COPD Treatment: O2 support, IV levaquin, IV solumedrol, duonebs Risk Factors:asthma, hx COPD Please clarify and document your clinical opinion in the progress notes and discharge summary. Terms such as "probable", "suspected", "likely", "questionable", "possible", or "still to be ruled out" are acceptable. IF IN AGREEMENT, YOU MUST DOCUMENT ABOVE DIAGNOSTIC STATEMENT IN DAILY PROGRESS NOTES AND DISCHARGE SUMMARY. This document is not part of the patient's record. Thank You, Karoline Johansen RN [phone]
[2016-02-26] MEDS: SODIUM CHLORIDE 0.9% 1000ML 1,000 ML IV SCH (16:50)
[2016-02-26] MEDS: SIMVASTATIN 20 MG TAB PO SCH (19:26)
[2016-02-26] MEDS: LEVOFLOXACIN / D5W 750 MG in PREMIXED IN D5W 150 ML IV SCH (20:03)
[2016-02-26 20:47] LABS: INFLUENZA A PCR Neg for Influ A (NEG); INFLUENZA B PCR Neg for Influ B (NEG)
[2016-02-27] VITALS (8 sets, daily range): BP systolic 113–151; BP diastolic 68–86; PULSE 57–67; TEMP 36.4–36.6; O2SAT 92–96
[2016-02-27] MEDS: METHYLPREDNISOLONE IV 40 MG in SYRINGE 0 ML IV SCH ×2 (00:24→08:15)
[2016-02-27] MEDS: LEVOTHYROXINE 112 MCG TAB PO SCH (04:45)
[2016-02-27] MEDS: ACETAMINOPHEN 325 MG TAB PO PRN (04:48)
[2016-02-27 06:33] LABS: HEMATOCRIT 43.6 % (42-52); MEAN CELL VOLUME 92.8 fL (80-100); MEAN CORPUSCULAR HEMOGLOBIN 31.3 pg (25-34); MEAN CORPUSCULAR HGB CONC 33.7 g/dl (32-36); MEAN PLATELET VOLUME 10.2 fL (7.4-10.4); PLATELET COUNT 156 K/uL (130-400); WHITE BLOOD COUNT 16.27 K/uL (4.8-10.8)
[2016-02-27] MEDS: ALBUT/IPRATROP 3MG/0.5MG NEB 3 ML VIAL INH SCH ×2 (07:07→11:04)
[2016-02-27 07:22] LABS: CREATININE 0.91 mg/dl (0.60-1.40)
[2016-02-27] MEDS: FLUTICASONE PROPIONATE NA SPR 16 GM BTL SCH (08:15)
[2016-02-27] MEDS: CLOPIDOGREL BISULFATE 75 MG TAB PO SCH (08:16)
[2016-02-27] MEDS: CALCIUM 600MG + VIT D 400 IU TAB PO SCH (08:16)
[2016-02-27] MEDS: ASPIRIN 81 MG ECTAB PO SCH (08:16)
[2016-02-27] MEDS: CITALOPRAM 40 MG TAB PO SCH (08:16)
[2016-02-27] MEDS: RANITIDINE HCL 150 MG TAB PO SCH (08:16)
[2016-02-27] MEDS: TRIAMTERENE/HCTZ 37.5/25MG CAP PO SCH (08:16)
[2016-02-27] MEDS: PROPRANOLOL HCL 80 MG TAB PO SCH (08:17)
[2016-02-27] MEDS: MULTIVITAMIN TAB PO SCH (08:17)
[2016-02-27] MEDS: GABAPENTIN 100 MG CAP PO SCH (08:17)
[2016-02-27] MEDS: ENOXAPARIN 40 MG/0.4 ML SYR SC SCH (08:19)
--- NOTE | 2016-02-27 11:23 | Progress Note ---
Internal Med Progress Note Date of Service: Feb 27, 2016. Provider Documentation: SUBJECTIVE: resting comfortably on the chair sob improved cough improved afebrile complains of pain in his right calf ok for discharge today OBJECTIVE: Vital Signs-as noted below Exam: General-alert and oriented x 3 shaky ENT-normal hearing Neck-no neck masses Lungs-cta b/l no wheezing or crackles Heart-s1 and s2 heard regular rate and rhythm, no murmurs Abdomen-soft bowel sounds present non tender no distension Extremities-no edema no erythema mild tenderness in right calf Neuro-alert and awake moves extremities Lab data as noted below. ASSESSMENT & PLAN: ACUTE HYPOXIC RESPIRATORY FAILURE LIKELY SECONDARY TO COPD; R/O PE pt presents with SOB assoc with shaking chills, chest pain and wheezing; h/o COPD CXR negative d dimer negative flu negative on oxygen, nebs and Levaquin improving pt/ot Flonase for nasal congestion two step home oxygen evaluation continue same possible d/c later in the day ATYPICAL CHEST PAIN R/O ACS pt reports fleeting L sided chest pain radiating down L arm; h/o CAD s/p stent to LAD ekg and CE negative echo unremarkable To cont ASA, Plavix and statin currently asymptomatic NAUSEA/DIARRHEA; POSSIBLE GASTROENTERITIS stool culture and C.diff-pending on gentle fluids improved will monitor AMBULATORY DYSFUNCTION h/o tremor fall precautions PT/OT eval HOme PT Right lower extremity pain in calf will f/u doppler ESSENTIAL TREMOR on Propranolol follows with neuro, Dr. Melara BACK PAIN WITH H/O CHRONIC BACK PAIN On Aleve and oxycodone PRN HYPOTHYROIDISM On levothyroxine DEPRESSION/ANXIETY increased stress recently due to son with recent health problems and daughter going through divorce on Celexa Ativan PRN GERD Zantac HTN Stable on Maxzide and Propranolol documented intolerance to EDITH-I will monitor DYSLIPIDEMIA On statin DVT PROPHYLAXIS subq Lovenox CODE STATUS. FULL CODE DISPOSITION pt/ot possible d/c home today Vital Signs: Date Time Temp Pulse Resp B/P Pulse Ox O2 Delivery O2 Flow Rate FiO2 02/27/16 08:00 93 Nasal Cannula 3.0 02/27/16 07:20 36.4 57 18 151/86 93 Nasal Cannula 3.0 02/27/16 07:07 60 16 96 Nasal Cannula 3.0 02/27/16 04:00 Nasal Cannula 3.0 02/27/16 03:30 36.5 62 22 132/76 93 Nasal Cannula 3.0 02/27/16 00:05 36.5 67 20 113/68 92 Nasal Cannula 3.0 02/26/16 23:59 Nasal Cannula 3.0 02/26/16 20:13 62 16 93 Nasal Cannula 3.0 02/26/16 20:00 Nasal Cannula 3.0 02/26/16 19:28 36.4 67 20 126/82 94 Nasal Cannula 3.0 02/26/16 17:00 Nasal Cannula 3.0 Free Flow/Blowby 02/26/16 15:51 36.5 64 22 129/77 93 Nasal Cannula 3.0 02/26/16 15:43 62 16 93 Nasal Cannula 3.0 02/26/16 12:30 Nasal Cannula 3.0 Free Flow/Blowby 02/26/16 11:50 36.7 22 131/78 96 Nasal Cannula 2.0 Lab Results: Results Past 24 Hours Test 02/26/16 19:45 02/27/16 05:53 Range/Units Influenza Type A (RT-PCR) Neg for Influ A NEG Influenza Type B (RT-PCR) Neg for Influ B NEG White Blood Count 16.27 4.8-10.8 K/uL Red Blood Count 4.70 4.7-6.1 M/uL Hemoglobin 14.7 14.0-18.0 g/dL Hematocrit 43.6 42-52 % Mean Corpuscular Volume 92.8 80-100 fL Mean Corpuscular Hemoglobin 31.3 25-34 pg Mean Corpuscular Hemoglobin Concent 33.7 32-36 g/dl RDW Standard Deviation 48.8 36.4-46.3 fL RDW Coefficient of Variation 14.4 11.5-14.5 % Platelet Count 156 130-400 K/uL Mean Platelet Volume 10.2 7.4-10.4 fL Creatinine 0.91 0.60-1.40 mg/dl Est Creatinine Clear Calc Drug Dose 69.4 ml/min Estimated GFR () 95.9 Estimated GFR (Non- 82.7
--- NOTE | 2016-02-27 12:01 | DIAGNOSTIC IMAGING REPORT ---
ULTRASOUND RIGHT VENOUS DOPP LOWER EXT UNILAT CLINICAL HISTORY: Shortness of breath. Possible pulmonary embolism. Right leg swelling. COMPARISON STUDY: No previous studies for comparison. FINDINGS: Real-time and color flow Doppler imaging were performed. Flow was seen within the femoral, popliteal and calf veins with no intraluminal thrombus demonstrated. The saphenous vein is patent. IMPRESSION: No evidence of right lower extremity DVT. Electronically signed by: Wolfgang Rucker M.D. 02/27/2016 11:59 AM Dictated Date/Time: 02/27/2016 11:49 AM
[2016-02-27] MEDS ORDERED: PRED10TA PO (14:11)
[2016-02-27] MEDS ORDERED: LEVO750T23 PO (14:11)
--- NOTE | 2016-02-27 14:13 | Discharge Instructions ---
Discharge Instructions Admission Reason for Admission: SOB Discharge Discharge Diagnosis / Problem: ACUTE HYPOXIC RESPIRATORY FAILURE LIKELY SECONDARY TO COPD, CHEST PAIN Discharge Goals Goal(s): Decrease discomfort, Improve function Activity Recommendations Activity Limitations: resume your previous activity . Instructions / Follow-Up Instructions / Follow-Up FOLLOWUP WITH FAMILY DOCTOR ON Feb AT 9:10AM Current Hospital Diet Patient's current hospital diet: AHA Diet (Heart Healthy) Discharge Diet Recommended Diet: AHA Diet (Heart Healthy) Pending Studies Studies pending at discharge: no Medical Emergencies . Who to Call and When: Medical Emergencies: If at any time you feel your situation is an emergency, please call 911 immediately. . Non-Emergent Contact Non-Emergency issues call your: Primary Care Provider . . "Provider Documentation" section prepared by Gian Rodriguez. VTE Core Measure Inpt VTE Proph given/why not?: Enoxaparin (Lovenox)SQ
--- NOTE | 2016-02-27 19:37 | Discharge Summary ---
Discharge Summary Admission Date: Feb 24, 2016 at 21:25 Discharge Date: Feb 27, 2016 Discharge Disposition: Home Principal Diagnosis: ACUTE HYPOXIC RESPIRATORY FAILURE LIKELY SECONDARY TO COPD; ATYPICAL CHEST PAIN GASTROENTERITIS Secondary Diagnoses/Problems: (1) CAD (coronary artery disease) Status: Chronic (2) COPD (chronic obstructive pulmonary disease) Status: Chronic (3) Depression Status: Chronic (4) Dyslipidemia Status: Chronic (5) Essential tremor Status: Chronic (6) GERD (gastroesophageal reflux disease) Status: Chronic (7) History of left heart catheterization Status: Resolved (8) HTN (hypertension) Status: Chronic (9) Hypothyroidism Status: Chronic (10) EZEQUIEL (obstructive sleep apnea) Status: Chronic (11) Scoliosis Status: Chronic (12) Spinal stenosis Status: Chronic Procedures: CXR: No significant change compared to the prior study. No acute process. Right basilar subsegmental atelectasis is again noted. LOWER EXTREMITY US: No evidence of right lower extremity DVT. ECHO Normal LV chamber size and wall thickness. * Normal LV systolic function, EF 60-65%. * No segmental left ventricular wall motion abnormalities are noted. * Grade I diastolic dysfunction. * No significant valvular pathology. Medication Reconciliation New Medications: Levofloxacin (Levaquin) 750 Mg Tab 1 TAB PO DAILY for 5 Days, #5 TAB Prednisone Tab (Prednisone) 10 Mg Tab 40 MG PO UD, #20 TAB PREDNISONE 40MG PO DAILY X 2 DAYS THEN PREDNISONE 30MG PO DAILY X 2 DAYS THEN PREDNISONE 20MG PO DAILY X 2 DAYS THEN PREDNISONE 10MG PO DAILY X 2 DAYS THEN STOP. Continued Medications: Aspirin (Aspirin Chewable) 81 Mg Chew 81 MG PO QAM Benzonatate (Tessalon Perles) 100 Mg Cap 100 MG PO TID PRN for Cough, CAP Calcium/Vitamin D (Os-Familia 500 Plus D) Tab 1 TAB PO QAM, TAB Citalopram Hydrobromide (Celexa) 40 Mg Tab 40 MG PO QAM, TAB Clopidogrel (Plavix) 75 Mg Tab 75 MG PO QAM, TAB Fluticasone Propionate (Nasal) (Flonase Allergy Relief) 50 Mcg/Act Spr 1 SPRAY KAYLEN DAILY PRN for PRN Gabapentin (Neurontin) 100 Mg Cap 100 MG PO TID, CAP Ipratropium-Albuterol (Combivent Respimat) 1 Aer Aer 1 PUFFS INH QID PRN for Shortness of Breath, INH Levothyroxine Sodium (Synthroid) 112 Mcg Tab 112 MCG PO QAM, TAB Lorazepam (Ativan) 0.5 Mg Tab 0.5 MG PO TID PRN for ANX OR TREMORS, TAB Multivitamin (Multivitamin) Tab 1 TAB PO QAM, TAB Nitroglycerin (Nitrostat) 0.4 Mg Tab 0.4 MG UT PRN, BTL Oxycodone/Acetaminophen 5MG/325MG (Percocet 5MG/325MG) Tab 1 TAB PO Q8H PRN for Pain, #120 TAB PAIN Oxygen (Oxygen) Gas 3 LITERS NA HS Polyethylene Glycol 3350 (Miralax) 1 Pow Pow 17 GM PO DAILY PRN for Constipation, #255 GM Propranolol (Inderal) 80 Mg Tab 80 MG PO TID, TAB Ranitidine HCl (Ranitidine HCl) 150 Mg Tab 150 MG PO BID, #180 Simvastatin (Zocor) 20 Mg Tab 20 MG PO QPM, TAB Tiotropium Calhoun (Spiriva Handihaler) 30 Puff/540 Mcg Aerp 1 PUFF INH DAILY PRN for SOB/Wheezing, #90 Triamterene/Hctz (Dyazide 37.5MG/25MG) Cap 1 TAB PO QAM, CAP Admission Information HPI (per Admitting provider): This is a 75 y/o male with PMHx of COPD on 3 L O2 HS, CAD s/p stent placement, essential tremor on Propranolol, HTN, Dyslipidemia and other problems as outlined below who presents to the ED via EMS c/o worsening SOB that began this afternoon. At baseline he is able to ambulate with no respiratory difficulty however this afternoon he was "huffing and puffing" with minimal exertion. His sxs were assoc with shaking chills, wheezing, nausea and 2 episodes of diarrhea. The shaking chills were so intense that he was having trouble ambulating. Pt has a history of essential tremor however this was much worse than usual to the point that he was afraid he might fall. He also mentions that early this evening he was laying in bed when he experienced 8/10 "sharp" L chest pain that radiated into his L arm. The pain lasted approx 15-20 seconds before resolving completely. Pt has a history of ME in 2008. He feels that these sxs do not reflect those he felt with his heart attack. Pt has not had any sick contacts and got his flu shot this year. Pt denies fever, palpitations , SOB, worsening cough, wheezing, abd pain, vomiting, constipation, hematochezia , melena, bladder issues, LE edema, calf pain, lightheadedness/dizziness. In the ED, pt is tachy and hypoxic on room air on arrival. He is afebrile with leukocytosis >13k. POC lactic acid 1.44. Trop negative. Flu negative. CXR negative for acute process. EKG: NSR with no acute ischemic changes. Pt is currently chest pain free and will be admitted for further evaluation and treatment. Physical Exam (per Admitting): General Appearance: WD/WN, no apparent distress, + pertinent finding (Pt is sitting up in bed in NAD) Head: normocephalic, atraumatic Eyes: normal inspection ENT: hearing grossly normal Neck: supple Respiratory/Chest: chest non-tender, no respiratory distress, no accessory muscle use, + wheezing, + pertinent finding (no crackles noted) Cardiovascular: regular rate, rhythm, no edema, no murmur Abdomen/GI: normal bowel sounds, non tender, soft Back: normal inspection Extremities/Musculoskelatal: normal inspection, no calf tenderness, no pedal edema Neurologic/Psych: alert, normal mood/affect, oriented x 3 Skin: normal color, warm/dry Physical Exam (per Admitting): General Appearance: WD/WN, no apparent distress, + pertinent finding (Pt is sitting up in bed in NAD) Head: normocephalic, atraumatic Eyes: normal inspection ENT: hearing grossly normal Neck: supple Respiratory/Chest: chest non-tender, no respiratory distress, no accessory muscle use, + wheezing, + pertinent finding (no crackles noted) Cardiovascular: regular rate, rhythm, no edema, no murmur Abdomen/GI: normal bowel sounds, non tender, soft Back: normal inspection Extremities/Musculoskelatal: normal inspection, no calf tenderness, no pedal edema Neurologic/Psych: alert, normal mood/affect, oriented x 3 Skin: normal color, warm/dry Hospital Course ACUTE HYPOXIC RESPIRATORY FAILURE LIKELY SECONDARY TO COPD; R/O PE pt presents with SOB assoc with shaking chills, chest pain and wheezing; h/o COPD CXR negative d dimer negative flu negative on oxygen, nebs and Levaquin improving pt/ot Flonase for nasal congestion two step home oxygen evaluation- DID OK continue same DISCHARGED HOME ON LEVAQUIN AND PREDNISONE TAPER ATYPICAL CHEST PAIN R/O ACS pt reports fleeting L sided chest pain radiating down L arm; h/o CAD s/p stent to LAD ekg and CE negative echo unremarkable To cont ASA, Plavix and statin currently asymptomatic NAUSEA/DIARRHEA; POSSIBLE GASTROENTERITIS stool culture and C.diff-pending on gentle fluids improved will monitor AMBULATORY DYSFUNCTION h/o tremor fall precautions PT/OT eval HOme PT Right lower extremity pain in calf NEGATIVE doppler ESSENTIAL TREMOR on Propranolol follows with neuro, Dr. Melara BACK PAIN WITH H/O CHRONIC BACK PAIN On Aleve and oxycodone PRN HYPOTHYROIDISM On levothyroxine DEPRESSION/ANXIETY increased stress recently due to son with recent health problems and daughter going through divorce on Celexa Ativan PRN GERD Zantac HTN Stable on Maxzide and Propranolol documented intolerance to EDITH-I will monitor DYSLIPIDEMIA On statin DISCHARGED HOME Total time spent on discharge = 35MINUTES This includes examination of the patient, discharge planning, medication reconciliation, and communication with other providers.
== END 2016-02-27 14:58 | disposition home or self-care (01) | DRG 189 ==
LOC: ENRESERVDT → ENRESERVTM → EDBD 18:31 → C.EDB 18:32 → C.2T 21:25
PROVIDERS: ADMIT Family Medicine; ATTEND Internal Medicine
DX: J96.01 Acute respiratory failure with hypoxia (principal); J44.1 Chronic obstructive pulmonary disease with (acute) exacerbation; J45.909 Unspecified asthma, uncomplicated; R07.89 Other chest pain; K52.9 Noninfective gastroenteritis and colitis, unspecified; M79.661 Pain in right lower leg; I25.10 Atherosclerotic heart disease of native coronary artery without angina pectoris; I10 Essential (primary) hypertension; E78.5 Hyperlipidemia, unspecified; K21.9 Gastro-esophageal reflux disease without esophagitis; E03.9 Hypothyroidism, unspecified; G89.29 Other chronic pain; M54.9 Dorsalgia, unspecified; G25.0 Essential tremor; R26.9 Unspecified abnormalities of gait and mobility; G47.33 Obstructive sleep apnea (adult) (pediatric); M48.00 Spinal stenosis, site unspecified; M41.9 Scoliosis, unspecified; F32.9 Major depressive disorder, single episode, unspecified; F41.9 Anxiety disorder, unspecified; I25.2 Old myocardial infarction; Z99.81 Dependence on supplemental oxygen; Z95.5 Presence of coronary angioplasty implant and graft; Z87.891 Personal history of nicotine dependence; Z79.02 Long term (current) use of antithrombotics/antiplatelets; Z79.82 Long term (current) use of aspirin; Z79.891 Long term (current) use of opiate analgesic; Z79.899 Other long term (current) drug therapy

== ENCOUNTER 2016-03-05 22:09 | Emergency (ER) | payer OTHER ==
[~2016-03-05] VITALS: Ht 172.7 cm; Wt 76.8 kg
[~2016-03-05 22:09] MED LIST changes: +BENZ100C18 PO; +OXGN; +PRED10TA PO; +RANI150T2 PO; +SPRIN/30 INH
[2016-03-05] MEDS ORDERED: LIDOCAINE/EPINEPH/TETRACAINE 1 EA SYR EXT STA (22:20)
[2016-03-05] MEDS ORDERED: XYLOCAINE 1%/SOD BICARB 20 ML VIAL INFIL ONE (22:30)
[2016-03-05 22:31] VITALS: TEMP 36.8; Ht 172.7 cm; Wt 76.8 kg
--- NOTE | 2016-03-06 00:43 | EMERGENCY ROOM VISIT NOTE ---
History Report prepared by Adal: Nakia Judge Under the Supervision of: Dr. Ricardo Dill M.D. First contact with patient: 22:14 Stated Complaint: FALL /HEAD LAC History of Present Illness The patient is a 75 year old male who presents to the Emergency Room via EMS to be evaluated for an episode of a fall that occurred this evening. He rates his pain as a 3/10. The patient fell as he was trying to lift a chair. He states he fell into the corner of a wall, hitting his head. The patient felt dizzy after the fall. He did not lose consciousness. The patient states that his vision is now blurry and he has some head pain. The patient did not feel ill before the fall. He denies chest pain, abdominal pain, neck pain. The patient is on a Plavix and aspirin. Source of History: patient Onset: this evening Position: other (global) Symptom Intensity: 3/10 Quality: other (fall) Timing: other (episode) Associated Symptoms: No LOC, No abdominal pain, No back pain, No chest pain , No neck pain Note: The patient felt dizzy after the fall. The patient states that his vision is now blurry and he has some head pain. Review of Systems See HPI for pertinent positives & negatives. A total of 10 systems reviewed and were otherwise negative. Past Medical & Surgical Medical Problems: (1) CAD (coronary artery disease) (2) COPD (chronic obstructive pulmonary disease) (3) Depression (4) Dyslipidemia (5) Essential tremor (6) GERD (gastroesophageal reflux disease) (7) History of left heart catheterization (8) HTN (hypertension) (9) Hypothyroidism (10) EZEQUIEL (obstructive sleep apnea) (11) Scoliosis (12) Spinal stenosis Surgical Problems: (1) H/O cystoscopy (2) H/O lithotripsy (3) Stented coronary artery Old medical records were reviewed. Nurse's notes were reviewed and I agree with. Family History Heart disease Social History Smoking Status: Former Smoker Alcohol Use: none Drug Use: none Marital Status: Housing Status: lives alone Occupation Status: retired Current/Historical Medications Scheduled Aspirin (Aspirin Chewable), 81 MG PO QAM Calcium/Vitamin D (Os-Familia 500 Plus D), 1 TAB PO QAM Citalopram Hydrobromide (Celexa), 40 MG PO QAM Clopidogrel (Plavix), 75 MG PO QAM Gabapentin (Neurontin), 100 MG PO TID Levothyroxine Sodium (Synthroid), 112 MCG PO QAM Multivitamin (Multivitamin), 1 TAB PO QAM Nitroglycerin (Nitrostat), 0.4 MG UT PRN Oxygen (Oxygen), 3 LITERS NA HS Prednisone Tab (Prednisone), 40 MG PO UD Propranolol (Inderal), 80 MG PO TID Ranitidine HCl (Ranitidine HCl), 150 MG PO BID Simvastatin (Zocor), 20 MG PO QPM Triamterene/Hctz (Dyazide 37.5MG/25MG), 1 TAB PO QAM Scheduled PRN Benzonatate (Tessalon Perles), 100 MG PO TID PRN for Cough Fluticasone Propionate (Nasal) (Flonase Allergy Relief), 1 SPRAY KAYLEN DAILY PRN for PRN Ipratropium-Albuterol (Combivent Respimat), 1 PUFFS INH QID PRN for Shortness of Breath Lorazepam (Ativan), 0.5 MG PO TID PRN for ANX OR TREMORS Oxycodone/Acetaminophen 5MG/325MG (Percocet 5MG/325MG), 1 TAB PO Q8H PRN for Pain Polyethylene Glycol 3350 (Miralax), 17 GM PO DAILY PRN for Constipation Tiotropium Scheller (Spiriva Handihaler), 1 PUFF INH DAILY PRN for SOB/Wheezing Allergies Coded Allergies: Grapefruit (Verified Allergy, Unknown, WAS TOLD NOT TO TAKE, 03/05/16) NO KNOWN DRUG ALLERGIES (Verified Allergy, Unknown, ., 03/05/16) Physical Exam Vital Signs Date Time Temp Pulse Resp B/P Pulse Ox O2 Delivery O2 Flow Rate FiO2 03/05/16 23:23 55 18 130/86 94 Nasal Cannula 2.0 03/05/16 22:31 36.8 57 20 109/62 91 Room Air Physical Exam General: Non-ill appearing older male who is on baseline oxygen, alert and oriented x3, in no acute distress. HEENT: Normal cephalic. 7 cm laceration on the posterior scalp, no active bleeding. There is a moderate amount of swelling. Minimal tenderness. Pupils are equal round and reactive to light. Extraocular movements are intact. Oropharynx is pink with moist mucous membranes. No swelling of the mouth lips or tongue. Neck: Supple with a midline trachea. No meningeal signs or stiffness, no JVD or bruits. No Stridor. Chest: Clear to auscultation bilaterally. No wheezes or rhonchi. No increased work of breathing. Heart: regular rate and rhythm. Abdomen: Soft nontender, nondistended without rebound guarding or rigidity. Extremities: No cyanosis clubbing or edema. No calf tenderness or assymetry Spine/Back. Non tender to palpation. No CVA tenderness Skin: Good turgor without rashes. Neurologic exam: Cranial nerves two through 12 are intact. Motor and sensation are intact and symmetrical throughout. Medical Decision & Procedures ER Provider Diagnostic Interpretation: CT results as stated below per my review and radiologist interpretation: CT Head: No ICH, mass effect or edema. No skull fracture. Atrophy/ white matter changes. Partial opacification paranasal sinuses. Comparison study dated 11/18/2011. CT C Spine: No acute fracture or malalignment. Mild positional rotary subluxation suspect C1 -2. Multilevel spondylosis and facet arthrosis. Radiologist: Fernando Rincon MD. Medications Administered Medications (Trade) Dose Ordered Sig/Ann Route Start Time Stop Time Status Last Admin Dose Admin Tetracaine/ Epinephrine/ Lidocaine (L.e.t. Gel 4%/ 1:100/0.5%) 1 ea NOW STAT EXT 03/05/16 22:20 03/05/16 22:22 DC 03/05/16 22:29 1 EA Procedure Location: Scalp Total length: 7 cm Complexity: Simple Verbal consent was obtained after the risks and benefits were explained, including but not limited to bleeding, scarring, infection, pain, and bone/ nerve damage. At this time, the risks of the procedure are less than the risks of NOT performing the procedure. A time out was taken and the correct patient and site identified. The scalp was prepped with betadine. The target area was anesthetized with LET gel. Copious irrigation was performed using saline. The skin was re-prepped with betadine, the hair cleared from the wound, and a sterile field set. The wound was explored for foreign bodies and none found. Debridement was not performed. Wound was irrigated no significant bleeding. I do not believe this violated the galea. The wound edges were approximated using 12 surgical josiah in the standard fashion. Hemostasis and excellent approximation was achieved. Antibacterial ointment and a sterile dressing applied. Detailed wound care instructions and signs and symptoms of infection reviewed with the patient. No complications and the patient tolerated the procedure well. ED Course 2213: Past medical records reviewed. The patient was evaluated in room B8, and a complete history and physical examination were performed. 0011: Upon reevaluation, the patient is doing well. I discussed the results and treatment plan with the patient. He verbalized agreement of the treatment plan. The patient was discharged home. Medical Decision Differentials include, but are not limited to; laceration, closed head injury, intracranial hemorrhage, skull fracture, laceration, anemia, orthopedic injury. This patient comes in as described above. He suffered a mechanical fall in the back of his head. he has a laceration. He is on Plavix. he has minimal bleeding there is some swelling. I did a CAT scan of his head and neck and there are no acute findings. although he has other medical problems, he has had no other issues and this was clearly mechanical fall. He believes is up-to- date on his tetanus booster and does follow with Dr. Espinal. I told that he can check with. The wound was closed with josiah and bacitracin and sterile dressing were applied and he was observed. He had no further bleeding. He does have some swelling. I encouraged him use ice. He should return if problems with the wound such as fever, pus, drainage, redness, warmth, bleeding , not acting like self, any new problems concerns. I told him that he can be careful getting up and down. He should've the josiah removed in about a week and follow-up with his doctor on Tuesday for recheck and return either to the doctor or here for staple removal. He is happy the plan and discharged to home. Impression Primary Impression: Laceration Additional Impression: Closed head injury Scribe Attestation The scribe's documentation has been prepared under my direction and personally reviewed by me in its entirety. I confirm that the note above accurately reflects all work, treatment, procedures, and medical decision making performed by me. Departure Information Dispostion Home / Self-Care Referrals Fawad Espinal D.O. (PCP) Forms HOME CARE DOCUMENTATION FORM, IMPORTANT VISIT INFORMATION Additional Instructions Rest. Drink plenty of fluids. Apply bacitracin and sterile dressing to wound twice a day. Return if: Redness or pus, fever, drainage, bleeding from the wound, not acting likeself, headache, difficulty ambulting, any new problems or concerns. Return in 7 days for staple removal Follow-up with your doctor in 1-2 days for recheck. Problem Qualifiers Additional Impression: Closed head injury Encounter type: initial encounter Qualified Codes: S09.90XA - Unspecified injury of head, initial encounter
[2016-03-06 00:49] VITALS: BP 128/82; PULSE 57; O2SAT 95
--- NOTE | 2016-03-06 06:48 | DIAGNOSTIC IMAGING REPORT ---
CT HEAD WITHOUT CONTRAST (CT) CLINICAL HISTORY: Head pain status post trauma COMPARISON STUDY: 08/03/2005 TECHNIQUE: Axial CT of the brain is performed from the vertex to the skull base. IV contrast was not administered for this examination. CT DOSE: 978.12 mGy.cm FINDINGS: No intra or extra-axial mass lesions are visualized. There is no CT evidence of acute cortical infarction. There is no evidence of midline shift. There is no acute hemorrhage. No calvarial fractures are visualized. There are moderate white matter hypodensities likely on a small vessel basis. These have progressed when compared the prior study. There is no evidence of pathologic ventricular dilatation. There is partial opacification the left sphenoid sinus. There are opacified right-sided ethmoid air cells. IMPRESSION: 1. No acute intracranial findings 2. Progressive white matter disease likely on a small vessel basis 3. Inflammatory changes within the left sphenoid and right ethmoid sinuses Electronically signed by: Wolfgang Rucker M.D. 03/06/2016 6:46 AM Dictated Date/Time: 03/06/2016 6:45 AM
--- NOTE | 2016-03-06 06:54 | DIAGNOSTIC IMAGING REPORT ---
CT OF THE CERVICAL SPINE CLINICAL HISTORY: Neck pain status post trauma COMPARISON STUDY: No previous studies for comparison. CT DOSE: TECHNIQUE: CT scan of the cervical spine was performed from the skull base to the thoracic inlet. Images are reviewed in the axial, sagittal, and coronal planes. IV contrast was not administered for this examination. FINDINGS: There is opacification the left sphenoid. There is trace fluid in the left maxillary sinus. No pneumothorax is visualized. No acute fractures or traumatic subluxations are visualized. The head is slightly rotated. There are multilevel degenerative changes. There is a nonspecific 6 mm lytic focus involving the right C7 lamina. IMPRESSION: 1. No evidence of acute fracture or traumatic subluxation 2. Multilevel degenerative change 3. 6 mm lytic focus involving the right C7 lamina 4. Inflammatory changes within the paranasal sinuses Electronically signed by: Wolfgang Rucker M.D. 03/06/2016 6:52 AM Dictated Date/Time: 03/06/2016 6:47 AM
== END 2016-03-06 00:49 | disposition home or self-care (01) ==
LOC: EDBD 22:09 → C.EDB 22:10
DX: S01.01XA Laceration without foreign body of scalp, initial encounter (principal); S09.90XA Unspecified injury of head, initial encounter; W19.XXXA Unspecified fall, initial encounter; I25.10 Atherosclerotic heart disease of native coronary artery without angina pectoris; J44.9 Chronic obstructive pulmonary disease, unspecified; F32.9 Major depressive disorder, single episode, unspecified; E78.5 Hyperlipidemia, unspecified; I10 Essential (primary) hypertension; K21.9 Gastro-esophageal reflux disease without esophagitis; G47.33 Obstructive sleep apnea (adult) (pediatric); Z87.891 Personal history of nicotine dependence; Z79.82 Long term (current) use of aspirin; Z79.899 Other long term (current) drug therapy

== ENCOUNTER → 2016-07-28 | Outpatient (CLI) | payer OTHER ==
[~2016-07-28] MED LIST changes: +ATROPINE SULFATE 0.1 MG/ML 5ML SYR ONE; +DOBUTamine HCL 12.5 MG/ML 20 ML VIAL ONE; +METOPROLOL TARTRATE 1 MG/ML VIAL ONE; +PERFLUTREN LIPID MICROSPHERE (DEFINITY) IV ONE
--- NOTE | 2016-07-28 18:46 | DOBUTAMINE ECHO ---
*NOTICE TO RECEIVING CONSTITUTION PARTY AGENCY This information is strictly Confidential and protected under [place] law. [place] law prohibits you from making any further disclosure of this information unless further disclosure is expressly permitted by the written consent of the person to whom it pertains or is authorized by law. A general authorization for the release of medical or other information is not sufficient for this purpose. Hospital accepts no responsibility if the information is made available to any other person, INCLUDING THE PATIENT. Interpretation Summary * Name: BLANCA MAHONEY Study Date: 07/28/2016 08:51 AM BP: 114/66 mmHg * Patient Location: [facility]\S\S233\S\1 HR: 59 * : 1940 (M/d/yyy) Gender: Male Height: 65 in * Age: 75 yrs Ethnicity: [place] Weight: 174 lb * Ordering Physician: Fawad Espinal * Referring Physician: Fawad Espinal D.O. * Performed By: Nakia Gu * * Reason For Study: SOB, FATIGUE * BSA: 1.9 m2 * -- Conclusions -- * STRESS STUDY: * The resting wall motion was normal with no regional wall motions abnormalities. * The stress wall motion is inconclusive. * Despite administering maximum dose dobutamine infusion and supplemental atropine, the patient's heart rate did not increase to a diagnostic level. * RESTING STUDY: * There is mild concentric left ventricular hypertrophy. * The LV Ejection Fraction = 60-65%. * The right ventricle is normal in size and function. * Grade I diastolic dysfunction, (abnormal relaxation pattern). * Aortic valve sclerosis mild, without significant aortic valvular stenosis. Procedure Details * DOBUTAMINE ECHO, CPT#74015 * ECHO DOPPLER, CPT #93595 * ECHO COLOR FLOW, CPT #03555 * A contrast injection of Definity was performed to improve assessment of LV function. * Contrast was injected into an intravenous site in the right arm. * One vial of Definity ultrasound contrast was diluted in normal saline to a total volume of 10 ml. A total of '8' ml of solution was administered during imaging. * Lot # [id number] of Definity utilized for procedure. * Expiration date 08/08. * The attending nurse who injected the contrast agent was ELIUD CUNNINGHAM RN. * ECHOEX, CPT #70345 Left Ventricle * The left ventricle is normal in size. * There is mild concentric left ventricular hypertrophy. * Ejection Fraction = 60-65%. * Left ventricular systolic function is normal. * The resting wall motion was normal with no regional wall motions abnormalities. The stress wall motion is inconclusive. Despite administering maximum dose dobutamine infusion and supplemental atropine, the patient's heart rate did not increase to a diagnostic level. Right Ventricle * The right ventricle is normal in size and function. Atria * The left atrial size is normal. * Right atrial size is normal. * No ASD detected; PFO is not assessed. Mitral Valve * The mitral valve is normal. * There is no mitral valve stenosis. * Significant mitral regurgitation is absent. Tricuspid Valve * The tricuspid valve is normal. * There is no tricuspid stenosis. * Significant tricuspid regurgitation is absent. * Doppler findings do not suggest pulmonary hypertension. Aortic Valve * The aortic valve is trileaflet. * Aortic valve sclerosis mild, without significant aortic valvular stenosis. * No hemodynamically significant valvular aortic stenosis. * No aortic regurgitation is present. Pulmonic Valve * The pulmonic valve is not well visualized. Great Vessels * The aortic root is normal size. Pericardium * There is no pericardial effusion. Stress Parameters * The stress portion of this study was personally supervised by the undersigned interpreting physician. * Rest heart rate was '59' BPM. * Rest blood pressure was '114/66' * Maximum heart rate achieved was 75 bpm. * Maximum heart rate was 51 % of maximum age-predicted heart rate. * Maximum blood pressure was '147/84' * Maximum Dobutamine infusion rate was '50' mcg/kg/min. * A total of 1 mg of intravenous Atropine was used to supplement Dobutamine for heart rate response. * Dobutamine infusion was terminated due to end of protocol/maximum medication doses * The patient did not exhibit any symptoms during drug infusion. * Normal blood pressure response to exercise. * Did not reach target heart rate with drug infusion. Left Ventricular Diastolic Function * Grade I diastolic dysfunction, (abnormal relaxation pattern). MMode 2D Measurements and Calculations IVSd 0.73 cm IVSs 1.6 cm LVIDd 4.4 cm LVIDs 2.7 cm LVPWd 0.88 cm LVPWs 1.9 cm IVS/LVPW 0.83 FS 38.3 % EDV(Teich) 89.1 ml ESV(Teich) 27.8 ml EF(Teich) 68.8 % EDV(cubed) 86.9 ml ESV(cubed) 20.4 ml EF(cubed) 76.5 % % IVS thick 116.5 % % LVPW thick 110.8 % LV mass(C)d 112.0 grams LV mass(C)dI 60.1 grams/m\S\2 LV mass(C)s 179.8 grams LV mass(C)sI 96.5 grams/m\S\2 SV(Teich) 61.2 ml SI(Teich) 32.8 ml/m\S\2 SV(cubed) 66.5 ml SI(cubed) 35.7 ml/m\S\2 ACS 1.6 cm asc Aorta Diam 3.4 cm LVOT diam 1.9 cm LVOT area 2.9 cm\S\2 LVAd ap4 30.5 cm\S\2 LVLd ap4 8.3 cm EDV(MOD-sp4) 91.0 ml EDV(sp4-el) 95.6 ml LVAs ap4 15.2 cm\S\2 LVLs ap4 6.4 cm ESV(MOD-sp4) 29.3 ml ESV(sp4-el) 30.6 ml EF(MOD-sp4) 67.8 % EF(sp4-el) 68.0 % LVAd ap2 32.3 cm\S\2 LVLd ap2 8.5 cm EDV(MOD-sp2) 105.1 ml EDV(sp2-el) 104.7 ml LVAs ap2 16.9 cm\S\2 LVLs ap2 6.8 cm ESV(MOD-sp2) 35.5 ml ESV(sp2-el) 35.8 ml EF(MOD-sp2) 66.2 % EF(sp2-el) 65.8 % LVLd %diff 2.3 % EDV(MOD-bp) 95.8 ml LVLs %diff 5.1 % ESV(MOD-bp) 32.5 ml EF(MOD-bp) 66.1 % SV(MOD-sp4) 61.7 ml SI(MOD-sp4) 33.1 ml/m\S\2 SV(MOD-sp2) 69.6 ml SI(MOD-sp2) 37.3 ml/m\S\2 SV(MOD-bp) 63.3 ml SI(MOD-bp) 33.9 ml/m\S\2 SV(sp4-el) 65.0 ml SI(sp4-el) 34.9 ml/m\S\2 SV(sp2-el) 68.9 ml SI(sp2-el) 37.0 ml/m\S\2 Doppler Measurements and Calculations MV E max hafsa 53.1 cm/sec MV A max hafsa 88.3 cm/sec MV E/A 0.60 MV dec time 0.34 sec Ao V2 max 99.6 cm/sec Ao max PG 4.0 mmHg Ao max PG (full) 0.13 mmHg JENNIFER(V,A) 2.8 cm\S\2 JENNIFER(V,D) 2.8 cm\S\2 LV V1 max PG 3.8 mmHg LV V1 max 98.0 cm/sec PA V2 max 46.3 cm/sec PA max PG 0.86 mmHg PI end-d hafsa 162.3 cm/sec
== END | disposition home or self-care (01) ==
LOC: C.CPL 08:40
PROVIDERS: ATTEND Internal Medicine
DX: R06.02 Shortness of breath (principal); R53.81 Other malaise; R53.83 Other fatigue

== ENCOUNTER → 2016-09-09 | Outpatient (CLI) | payer OTHER ==
[~2016-09-09] MED LIST changes: -ATROPINE SULFATE 0.1 MG/ML 5ML SYR ONE; -DOBUTamine HCL 12.5 MG/ML 20 ML VIAL ONE; -METOPROLOL TARTRATE 1 MG/ML VIAL ONE; -PERFLUTREN LIPID MICROSPHERE (DEFINITY) IV ONE; -PRED10TA PO
--- NOTE | 2016-09-09 13:46 | DIAGNOSTIC IMAGING REPORT ---
VIDEO SWALLOW CLINICAL HISTORY: 75-year-old male with history of dysphagia. TECHNIQUE: Video fluoroscopic evaluation of swallowing was performed in the AP and lateral projections by the speech pathology staff. The patient is fed nectar-thick and thin liquid barium, a barium coated wafer, and barium pudding. COMPARISON: None. FINDINGS: Penetration of thin liquids. No aspiration. No penetration or aspiration observed for the remaining textures administered. Swallowing function within normal limits. Fluoroscopy dosage (mGy): Not available. Fluoroscopy time: 3 minutes. Number of fluoroscopic spot images: 0. IMPRESSION: 1. Penetration of thin liquids without aspiration. No penetration or aspiration for the remaining textures. 2. Please see the speech pathologist report for detailed findings and recommendations. Electronically signed by: Vimal Jarvis M.D. 09/09/2016 1:45 PM Dictated Date/Time: 09/09/2016 1:41 PM
--- NOTE | 2016-09-09 14:36 | SWALLOWING EVALUATION ---
HISTORY: This 75 year-old man was referred for a VFSS at [facility] in order to rule out aspiration and address c/o dysphagia with solid foods. The patient has a PMH significant for COPD, CAD, essential tremors, dyslipidemia, NC (2008). Patient was seen for a VFSS at [facility] 04/2011. There was no aspiration, but mild penetration of thin liquids. Currently the patient's diet level is regular. PROCEDURE: The patient was seen in the Radiology Department of [facility] for the VFSS. Cursory examination of the oral cavity revealed adequate dentition. Movement of the articulators was WNL. The patient was seated on a stool and was viewed in both the Anterior-Posterior (A-P) and Lateral planes. Volitional phonation exercises completed in the A-P plane revealed bilateral vocal fold movement and vocal intensity that was slightly reduced. In the lateral plane, the patient was given the following boluses: 1 tsp. thin liquid barium x 2, single swallow thin liquid barium self-presented from a cup, sequential swallows of thin liquid barium self-presented from a cup, 1 tsp. nectar-thick liquid barium, single swallow nectar-thick liquid barium self-presented from a cup, sequential swallows nectar-thick liquid barium self-presented from a cup, 1 tsp. barium pudding, and 1 club cracker with barium pudding. The patient was then repositioned into the A-P plane and given the following boluses: 1 tsp. nectar-thick liquid barium and 1 tsp. barium pudding. RESULTS: Oral Stage: Labial seal was adequate. There was a cohesive bolus hold. Mastication was timely and efficient. Bolus transport was brisk. There was mild oral reside lining the tongue. Swallow was delayed with the bolus head at the posterior laryngeal surface of epiglottis at the initiation of the pharyngeal swallow. Initiation of swallow is delayed, but functional for patient's age. Oral residue was cleared with a second swallow. Pharyngeal Stage: Soft palate elevation was complete. Partial superior movement of the thyroid cartilage with partial approximation of arytenoids to epiglottic petiole. There was partial anterior excursion of the hyoid. Epiglottic inversion was complete. Laryngeal vestibular closure was incomplete with a narrow column of contrast in the laryngeal vestibule. Pharyngeal stripping wave was present, but diminished. Pharyngeal contraction showed (R) unilateral bulging. Pharyngoesophageal segment opening had partial distention/duration and partial obstruction of flow. Tongue base retraction showed a trace column of contrast between the tongue base and posterior pharyngeal wall. There was mild pharyngeal residue in the valleculae. There was no aspiration during the study. There was mild penetration with thin liquids. Laryngeal movement was reduced, but any pharyngeal residue was cleared with a second swallow. Patient shows (R) unilateral bulging in pharyngeal contraction with is indicative of muscle weakness. Pharyngeal stage of swallow is functional for patient's age. Esophageal Stage: There was complete esophageal clearance. SUMMARY/RECOMMENDATIONS: This patient presents with mild oral-pharyngeal dysphagia characterized by a delayed swallow, reduced laryngeal elevation, reduced tongue base retraction and mild oral/pharyngeal residue. The following is recommended: 1. Regular diet, thin liquids. 2. Avoid foods with thick textures including thick breads and large bites of meat and leafy foods. A double swallow can be used to help clear food from the pharynx. Take small bites and sips alternating solids and liquids. 3. May consider pulmonology consult to address c/o SOB. 4. Consider f/u with neurology re: (R) leg weakness. Pt is reporting he has to lift his leg in order to move it, but patient also continues to drive. A summary of the results and recommendations was discussed with patient and understanding was verbalized. He is anticipating f/u with the referring physician. Thank you for referral of this patient. Please contact me at if any additional information is needed. Alejandrina Garcia [facility]
== END | disposition home or self-care (01) ==
LOC: C.RAD 12:47
PROVIDERS: ATTEND Internal Medicine
DX: R13.12 Dysphagia, oropharyngeal phase (principal); R63.3 Feeding difficulties

== ENCOUNTER → 2017-06-03 | Day surgery (SDC) | payer OTHER ==
[~2017-06-03] VITALS: Ht 165.1 cm; Wt 81.8 kg
[~2017-06-03] MED LIST changes: -CALC500C70 PO; +CALC600T24 PO; +ISOS30TA35 PO; -LEVO112T2 PO; +LEVO88TA3 PO; +LIDOCAINE HCL 2% 2 ML VIAL (20MG/ML) ONE; +PROPOFOL IV EMULSION 10 MG/ML 20 ML VIAL IV ONE; +SODIUM CHLORIDE 0.9% 500ML 500 ML IV ONE; -SPRIN/30 INH
[2017-06-03 08:44] VITALS: Ht 165.1 cm; Wt 81.8 kg
[2017-06-03 08:55] VITALS: TEMP 36.4
--- NOTE | 2017-06-03 09:20 | Endo History and Physical ---
History & Physical Date of Service: Jun 03, 2017. Chief Complaint: SCREENING Referring Physician: DR. LOCKETT History of Present Illness pt for screening colonoscopy Past Surgical History Hx Cardiac Surgery: Yes (CARDIAC CATH 1 STENT) Hx Internal Defibrillator: No Hx Pacemaker: No Hx Abdominal Surgery: Yes (INGUINAL HERNIA REPAIR) Hx Post-Op Nausea and Vomiting: No Hx Cancer Surgery: No Hx Thoracic Surgery: No Hx Orthopedic: No (LEFT FOOT SURGERY (PLATE AND SCREWS)) Hx Urinary Tract Surgery: Yes (ESWL WITH LITHOTRIPSY AND CYSTOSCOPY) Family History None Social History Smoking Status: Former Smoker Hx Substance Use: No Hx Alcohol Use: Yes (occasionally drinks bourbon, rum) Allergies Coded Allergies: Grapefruit (Verified Allergy, Unknown, WAS TOLD NOT TO TAKE, 05/25/17) NO KNOWN DRUG ALLERGIES (Verified Allergy, Unknown, ., 05/25/17) Current Medications Reported Home Medications Medications Dose Route/Sig Max Daily Dose Days Date Category Dose Instructions Imdur Ext Rel (Isosorbide Mononitrate) 30 Mg Tabcr 30 Mg PO QAM 05/25/17 Reported Calcium/Vitamin D (Calcium W/ Vitamin D) 1 Tab Tab 1 Tab PO QAM 05/25/17 Reported Levothyroxine Sodium 88 Mcg Tab 88 Mcg PO QAM 05/25/17 Reported Oxygen Gas 3 Liters NA HS 02/24/16 Reported Tessalon Perles (Benzonatate) 100 Mg Cap 100 Mg PO TID PRN 02/24/16 Reported Ranitidine HCl 150 Mg Tab 150 Mg PO BID 02/24/16 Reported Nitrostat (Nitroglycerin) 0.4 Mg Tab 0.4 Mg UT PRN 07/09/15 Reported Aspirin Chewable (Aspirin) 81 Mg Chew 81 Mg PO QAM 07/09/15 Reported Miralax (Polyethylene Glycol 3350) 1 Pow Pow 17 Gm PO DAILY PRN 07/09/15 Reported Flonase Allergy Relief (Fluticasone Propionate (Nasal)) 50 Mcg/Act Spr 1 [place] KAYLEN DAILY PRN 07/09/15 Reported Multivitamin (Multivitamins) Tab 1 Tab PO QAM 07/09/15 Reported Neurontin (Gabapentin) 100 Mg Cap 100 Mg PO TID 07/09/15 Reported Plavix (Clopidogrel Bisulfate) 75 Mg Tab 75 Mg PO QAM 07/09/15 Reported PT INSTRUCTED TO CALL PRESCRIBING PHYSICIAN Dyazide 37.5MG/25MG (Triamterene/HCTZ) Cap 1 Tab PO QAM 07/09/15 Reported Combivent Respimat (Ipratropium-Albuterol) 1 Aer Aer 1 Puffs INH QID PRN 07/09/15 Reported Ativan (Lorazepam) 0.5 Mg Tab 0.5 Mg PO TID PRN 07/09/15 Reported Zocor (Simvastatin) 20 Mg Tab 10 Mg PO QPM 07/09/15 Reported Percocet 5MG/325MG (Oxycodone/Acetaminophen) Tab 1 Tab PO Q8H PRN 07/09/15 Reported PAIN Celexa (Citalopram Hydrobromide) 40 Mg Tab 40 Mg PO QAM 07/09/15 Reported Inderal (Propranolol HCl) 80 Mg Tab 80 Mg PO TID 07/09/15 Reported Vital Signs Weight (Kilograms): 81.82 Height (Feet): 5 Height (Inches): 5 Date Time Temp Pulse Resp B/P (MAP) Pulse Ox O2 Delivery O2 Flow Rate FiO2 06/03/17 08:55 36.4 50 20 154/77 (102) 95 Nasal Cannula 3 Physical Exam General Appearance: no apparent distress Respiratory/Chest: Auscultation: breath sounds normal Cardiovascular: Heart Auscultation: RRR Abdomen: Inspection & Palpation: soft Liver: non-tender Assessment and Plan stable for colonoscopy
--- NOTE | 2017-06-03 09:56 | Discharge Instructions ---
Endoscopy Patient Instructions Date / Procedure(s) Performed Jun 03, 2017. Colonoscopy Allergy Information Coded Allergies: Grapefruit (Verified Allergy, Unknown, WAS TOLD NOT TO TAKE, 05/25/17) NO KNOWN DRUG ALLERGIES (Verified Allergy, Unknown, ., 05/25/17) Discharge Date / Findings Jun 03, 2017. small polyp removed Medication Instructions Stopped Medication(s): PLAVIX Provider Instructions Activity Restrictions - No exercising or heavy lifting for 24 hours. - Do not drink alcohol the day of the procedure. - Do not drive a car or operate machinery until the day after the procedure. - Do not make any important decisions or sign important papers in 24 hours after the procedure. Following Day: - Return to full activity which may include returning to work/school. Diet Start your diet with liquids and light foods (jello, soup, juice, toast). Then eat your usual diet if not nauseated. Treatment For Common After Affects For mild abdominal pain, bloating, or excessive gas: - Rest - Eat lightly - Lie on right side Follow-Up Information Follow-up with DR. LOCKETT as scheduled Anesthesia Information What You Should Know You have had a procedure that required some medicine to reduce anxiety and discomfort. This treatment is called moderate sedation. After receiving the treatment, you may be sleepy, but you will be able to breathe on your own. The effects of the treatment may last for several hours. Follow these instructions along with Activity/Diet recommendations noted above: * Do NOT do anything where dizziness or clumsiness would be dangerous. * Rest quietly at home today, then you can be up and about tomorrow. * Have a responsible person stay with you the rest of today. * You may have had an I.V. today. If so, you may take the dressing off later today. Recommendations Call your doctor if: * Trouble breathing * Continuous vomiting for more than 24 hours * Temperature above 101 degrees * Severe abdominal pain or bloating * Pain not relieved by pain medicine ordered * There is increased drainage or redness from any incision * A large amount of rectal bleeding greater than 2-3 tablespoons. (If you had a polyp/s removed or have hemorrhoids, a small amount of blood - from the rectum is to be expected.) * You have any unanswered questions or concerns. IN THE EVENT OF A SERIOUS EMERGENCY, GO TO THE NEAREST EMERGENCY ROOM Your discharge instructions were prepared by provider Tyson Hess. Patient Instructions Signature Page Fabian Starks Patient (or Guardian) Signature/Date: I have read and understand the instructions given to me by my caregivers. Caregiver/RN/Doctor Signature/Date: The above-named patient and/or guardian has received patient instructions on this date. + Original Patient Signature Page (only) stays with chart. Please make copy for patient.
--- NOTE | 2017-06-03 10:03 | GI REPORT ---
Procedure Date: 06/03/2017 9:15 AM Procedure: Colonoscopy Indications: Screening for colorectal malignant neoplasm Medicines: See the Anesthesia note for documentation of the administered medications Complications: No immediate complications. Estimated Blood Loss: Estimated blood loss was minimal. Procedure: Pre-Anesthesia Assessment: - Prior to the procedure, a History and Physical was performed, and patient medications, allergies and sensitivities were reviewed. The patient's tolerance of previous anesthesia was reviewed. - The risks and benefits of the procedure and the sedation options and risks were discussed with the patient. All questions were answered and informed consent was obtained. - Patient identification and proposed procedure were verified prior to the procedure by the physician and the nurse. The procedure was verified in the pre-procedure area. - Pre-procedure physical examination revealed no contraindications to sedation. - After reviewing the risks and benefits, the patient was deemed in satisfactory condition to undergo the procedure. After I obtained informed consent, the scope was passed under direct vision. Throughout the procedure, the patient's blood pressure, pulse, and oxygen saturations were monitored continuously. The scope was introduced through the anus and advanced to the terminal ileum, with identification of the appendiceal orifice and IC valve. The colonoscopy was performed without difficulty. The patient tolerated the procedure well. The quality of the bowel preparation was good. Findings: The perianal and digital rectal examinations were normal. The terminal ileum appeared normal. A 5 mm polyp was found at 30 cm proximal to the anus. The polyp was semi-sessile. The polyp was removed with a cold snare. Resection and retrieval were complete. Verification of patient identification for the specimen was done by the physician and nurse using the patient's name and medical record number. Estimated blood loss was minimal. The exam was otherwise without abnormality on direct and retroflexion views. Impression: - The examined portion of the ileum was normal. - One 5 mm polyp at 30 cm proximal to the anus, removed with a cold snare. Resected and retrieved. - The examination was otherwise normal on direct and retroflexion views. Recommendation: - Await pathology results. - Discharge patient to home. Tyson Hess M.D. Tyson Hess MD 06/03/2017 10:03:16 AM This report has been signed electronically. Note Initiated On: 06/03/2017 9:15 AM I attest to the content of the Intraoperative Record and orders documented therein, exceptions below
--- NOTE | 2017-06-03 10:12 | Anesthesiology Progress Note ---
Anesthesia Post Op Note Date & Time Jun 03, 2017 at 10:12 Vital Signs Pain Intensity: 0 Vital Signs Past 12 Hours Date Time Temp Pulse Resp B/P (MAP) Pulse Ox O2 Delivery O2 Flow Rate FiO2 06/03/17 08:55 36.4 50 20 154/77 (102) 95 Nasal Cannula 3 Notes Mental Status: alert / awake / arousable, participated in evaluation Pt Amnestic to Procedure: Yes Nausea / Vomiting: adequately controlled Pain: adequately controlled Airway Patency, RR, SpO2: stable & adequate BP & HR: stable & adequate Hydration State: stable & adequate Anesthetic Complications: no major complications apparent
[2017-06-03 10:37] VITALS: BP 131/80; PULSE 48; O2SAT 92
== END | disposition home or self-care (01) ==
LOC: C.GI 08:25
PROVIDERS: ATTEND Internal Medicine Gastroenterology
DX: Z12.11 Encounter for screening for malignant neoplasm of colon (principal); K63.5 Polyp of colon; J44.9 Chronic obstructive pulmonary disease, unspecified; Z91.018 Allergy to other foods; Z87.891 Personal history of nicotine dependence; Z99.81 Dependence on supplemental oxygen; Z86.73 Personal history of transient ischemic attack (TIA), and cerebral infarction without residual deficits

== ENCOUNTER 2019-12-23 01:38 | Inpatient (IN) ==
--- NOTE | 2019-12-23 01:13 | Emergency Department Note ---
Impression & Plan Acute respiratory failure ED Provider Note Name: BLANCA MAHONEY Age: 79 Sex: M Arrives Via: Ambulance Informant: Patient, EMS ED Provider: Hugh Olguin MD Chief Complaint: Shortness of breath Impression: Acute Respiratory Failure Medical Decision Makin yr old male with COPD, CAD, CHF, amongst other medical issues arrives with acute shortness of breath with multiple nebs and CPAP and feeling better. Mild wheezing on evaluation but otherwise sounds clear. Some mild edema in legs though patietn notes this is baseline for him. Afebrile and otherwise exam benign. Given reported tight wheezing before nebs I opted to given IV steroids. CXR with bilateral congestion of unclear etiology. Labs otherwise unremarkable. Covid returned negative. No evidence ACS and seems unlikely this is PE related. Suspect this is primarily COPD and that WBC elevation stress response. Unclear why congestion on CXR though seems less likely CHF given rest of exam not consistent with fluid overlod and BNP is low. As afebrile will hold of on abx until hospitalist eval, as will defer lasix to them as well. Patient stable while on Bipap feeling much better. Prior Medical Record and Triage/Nursing Notes reviewed by Me Additional history obtained from chart Differentials:Reactive airway disease, pneumonia, pneumothorax, COPD, CHF, infections, cardiac ischemia, pulmonary embolism, musculoskeletal, gastrointestinal, as well as other pathologies. Vital Signs: reviewed and remarkable for no significant abnormalities Interventions: BIPAP, Decadron 10mg IV Labs:Reviewed and remarkable for no significant abnormalities Imaging:X ray results are stated below per my interpretation: Chest: 1 view: Bilateral increased congestion compared to previous without effusion EKG:Per My Interpretation: Indication SHOB: NSR 74 bpm, qtc 444 with poor baseline, no acute changes compared to 10/05/18. No Ectopy. No Ischemia. Cardiac/Tele Monitoring: Cardiac Monitoring: An Order was placed for continuous cardiac monitoring. The monitor shows a rate of 70 with a normal sinus rhythm. Consults:Dr Michael Manuel Hospitalist Plan: Disposition:Hospitalization. Condition: Fair Prescriptions:none PDMP: n/a History of Present Illness:79 yr old male arrives for evaluation of shortness of breath. Patient notes he was out at dinner this evening when he noted feeling increasing shortness of breath. Associated with mild cough. Symptoms gradually improving as night went on. Now associated with weakness, fatigue, and chills. Denies fevers, chest pain, syncope, leg swelling (beyond normal edema), headache, neck pain, vomiting, back pain, abdominal pain, urinary/bowel symptoms nor other symptoms. Exertion made worse, rest makes better. Called 911 due to shob and given multiple duoneb en route and placed on CPAP for severe sob. On arrival switched to Bipap. He notes feeling much better now after being on bipap. Denies previous episodes of this. No known covid exposures but admits he goes out to eat and does daily trips to store. ROS: See above HPI for pertinent positives & negatives. A total of 10 systems reviewed and were otherwise negative. Past Medical History:COPD, Hypothyroid, CAD, EZEQUIEL, Depression, GERD, HTN, DLP, CHF Past Surgical History:heart cath with stent, lithotripsy Family History:see below Social History:See Below Home Medications:See Below Allergies:NKDA Vitals:Blood Pressure: 127/92 , Pulse 73, RR 20, T 36.3C, O2 99% on BIPAP Physical Exam: GENERAL: Patient is unwell appearing and in moderate distress. EYES: No scleral icterus, unremarkable pupils. ENT: Mucous membranes moist, no nasal congestion. NECK: No masses appreciated, nomeningismus, trachea is midline. RESPIRATORY: Mild tachypnea without significant dyspnea on BIPAP. Mild diffuse wheezing no over crackles appreciated. CARDIOVASCULAR: Regular rate and rhythm.No murmurs, rubs, gallops appreciated. GASTROINTESTINAL: Abdomen soft, non-tender, no peritonitis.Bowel sounds positive.No masses appreciated. BACK: No midline tenderness, no CVA tenderness EXTREMITIES: Normal motion all extremities, no cyanosis, 2+ edema bilateral lower legs NEUROLOGIC: Alert and oriented, no acute motor or sensory deficits, no focal weakness, cranial nerves grossly intact. SKIN: No rash, no jaundice, no diaphoresis. PSYCH: Appropriate GCS: 15 ED Course: Times/Reassessments: Breathing comfortably on BIPAP no further complaints Critical Care: I have personally spent 35 minutes of critical care time in the direct management of this patient. Respiratory failure requiring BIPAP. This was a life/limb threatening event. This 35 minutes is in excess of all separately billable procedures. Hugh Olguin MD Past Med/Surg History Medical History (Updated 12/23/19 @ 06:58 by Hugh Olguin MD) Chronic back pain Chronic obstructive pulmonary disease Depression Familial tremor reason for propranolol GERD (gastroesophageal reflux disease) Hyperlipidemia Hypertension Hypothyroidism Kidney stones Myocardial Infarction 2009 On anticoagulant therapy plavix daily On home oxygen therapy 3L N/C at hs Scoliosis Sleep apnea uses 3L N/C hs SOB (shortness of breath) on exertion with wheezing Tinnitus of both ears Surgical History History of bilateral cataract extraction History of cardiac cath 2009 @ [facility] [place] stent--follows with Dr. Ramirez History of colonoscopy History of esophagogastroduodenoscopy (EGD) History of heart artery stent x1 2009--[facility] [place] History of lithotripsy History of open reduction and internal fixation (ORIF) procedure left foot fx/pinky toe fx--hardware in place History of testicular surgery "sac full of blood in testicle drained at 26 yrs old" History of tonsillectomy History of wisdom tooth extraction Hx of right inguinal hernia repair Hx of vasectomy Family History Sister Family history of reaction to anesthesia nausea/vomiting Mother Family history of diabetes mellitus Social History Smoking Status: Never smoker Second Hand Exposure: Yes (work environment); Hx Alcohol Use: No Hx Substance Use: No Preferred Language: Moldovan Communication Ability: Effective Facilities Maintenance Engineer Required: No Beliefs That Will Affect Care: None Current Living Situation: Alone Other Information That Helps Us Care for You: No Feels Safe at Home: Yes Safety Concerns: Feels Safe At This Time Assistive Devices: None Allergies Allergies Allergy/AdvReac Type Severity Reaction Status Date / Time grapefruit Allergy Unknown WAS TOLD Verified 12/23/19 01:07 EST NOT TO TAKE No Known Drug Allergies Allergy Unknown . Verified 12/23/19 01:07 EST Home Meds Home Medications Medication Instructions Recorded Confirmed Combivent Respimat 1 puff INHALATION QID 03/14/18 12/23/19 citalopram 40 mg PO QAM 03/14/18 12/23/19 clopidogrel [Plavix] 75 mg PO QAM 03/14/18 12/23/19 furosemide See Rx Instructions .ROUTE 03/14/18 12/23/19 .COMPLEX PRN isosorbide mononitrate 30 mg PO QAM 03/14/18 12/23/19 levothyroxine 100 mcg PO QAM 03/14/18 12/23/19 multivitamin 1 tab PO QAM 03/14/18 12/23/19 nitroglycerin 1 tab SUBLINGUAL UD PRN 03/14/18 12/23/19 zoledronic gbyf-[id number]-[id number] 1 dose IV YEARLY 03/14/18 12/23/19 [Reclast] calcium carbonate-vitamin D3 1 tab PO DAILY 12/23/19 12/23/19 [Calcium 600 + D(3)] propranolol 20 mg PO TID 12/23/19 12/23/19 simvastatin 10 mg PO HS 12/23/19 12/23/19 Results & Data (ED) Vital Signs Vital Signs - 24 hr 12/23/19 01:46 EDT 12/23/19 01:53 EDT 12/23/19 01:03 EST Temperature 36.4 C L Temperature Source Oral Pulse Rate 74 72 Pulse Rate [Bilateral Apical] Respiratory Rate 24 24 Respiratory Effort / Characteristics Spontaneous SOB on Exertion Respiratory Depth Shallow Deep Respiratory Pattern Tachypnea Regular Blood Pressure 127/92 Blood Pressure [Left Arm] Blood Pressure Mean 103 Blood Pressure Mean [Left Arm] Blood Pressure Position Sitting Pulse Oximetry 94 97 96 Oxygen Delivery Method BiPAP BiPAP Oxygen Flow Rate 50 Fraction of Inspired Oxygen 50 Sepsis Recent Fever Within 48 Hours No Sepsis New/Unexplained Change in Mental Status N/A Sepsis Action Taken by Nursing No Action Required 12/23/19 01:14 EST 12/23/19 01:29 EST 12/23/19 01:46 EST Temperature Temperature Source Pulse Rate Pulse Rate [Bilateral Apical] 68 Respiratory Rate 22 Respiratory Effort / Characteristics Respiratory Depth Respiratory Pattern Blood Pressure Blood Pressure [Left Arm] 129/83 Blood Pressure Mean Blood Pressure Mean [Left Arm] 98 Blood Pressure Position Pulse Oximetry 97 95 Oxygen Delivery Method BiPAP BiPAP Oxygen Flow Rate Fraction of Inspired Oxygen 40 Sepsis Recent Fever Within 48 Hours Sepsis New/Unexplained Change in Mental Status Sepsis Action Taken by Nursing 12/23/19 02:18 12/23/19 02:34 Temperature Temperature Source Pulse Rate Pulse Rate [Bilateral Apical] 68 68 Respiratory Rate 22 22 Respiratory Effort / Characteristics Respiratory Depth Respiratory Pattern Blood Pressure Blood Pressure [Left Arm] 128/81 124/84 Blood Pressure Mean Blood Pressure Mean [Left Arm] 96 97 Blood Pressure Position Pulse Oximetry 95 95 Oxygen Delivery Method BiPAP BiPAP Oxygen Flow Rate Fraction of Inspired Oxygen Sepsis Recent Fever Within 48 Hours Sepsis New/Unexplained Change in Mental Status Sepsis Action Taken by Nursing Laboratory Data Result diagrams: 12/23/19 01:17 EST 12/23/19 02:10 Lab Results 12/23/19 12/23/19 12/23/19 Range/Units 01:17 EST 01:17 EST 01:17 EST WBC 16.31 H (4.8-10.8) K/uL RBC 4.90 (4.7-6.1) M/uL Hgb 16.2 (14.0-18.0) g/dL Hct 47.7 (42-52) % MCV 97.3 (80-100) fL MCH 33.1 (25-34) pg MCHC 34.0 (32-36) g/dL RDW Std Deviation 50.5 H (36.4-46.3) fL RDW Coeff of Mannie 14.2 (11.5-14.5) % Plt Count 168 (130-400) K/uL MPV 10.1 (7.4-10.4) fL Immature Gran % (Auto) 0.5 % Neut % (Auto) 79.1 % Lymph % (Auto) 9.9 % Hamblen % (Auto) 9.1 % Eos % (Auto) 1.3 % Baso % (Auto) 0.1 % Neut # (Auto) 12.89 H (1.4-6.5) K/uL Lymph # (Auto) 1.61 (1.2-3.4) K/uL Hamblen # (Auto) 1.49 H (0.11-0.59) K/uL Eos # (Auto) 0.22 (0-0.5) K/uL Baso # (Auto) 0.02 (0-0.2) K/uL Immature Gran # (Auto) 0.08 H (0.00-0.02) K/uL Sodium 136 (136-145) mmol/L Potassium (3.5-5.1) mmol/L Chloride 102 (98-107) mmol/L Carbon Dioxide 30 (21-32) mmol/L Anion Gap 4.0 (3-11) BUN 14 (7-18) mg/dl Creatinine 1.22 (0.6-1.4) mg/dl Est Cr Clr Drug Dosing 49.6 ml/min Est GFR ( Amer) 65.4 Est GFR (Non-Af Amer) 56.4 BUN/Creatinine Ratio 11.4 (10-20) Glucose 120 H (70-99) mg/dl Lactate 1.8 (0.4-2.0) mmol/L Calcium 9.2 (8.5-10.1) mg/dl Magnesium (1.8-2.4) mg/dl Troponin I < 0.015 (0-0.045) ng/ml NT-Pro-B Natriuret Pep (0-1800) pg/ml COVID-19 Eval Order COVID-19 PCR (Negative) 12/23/19 12/23/19 12/23/19 Range/Units 01:20 EST 01:20 EST 02:10 WBC (4.8-10.8) K/uL RBC (4.7-6.1) M/uL Hgb (14.0-18.0) g/dL Hct (42-52) % MCV (80-100) fL MCH (25-34) pg MCHC (32-36) g/dL RDW Std Deviation (36.4-46.3) fL RDW Coeff of Mannie (11.5-14.5) % Plt Count (130-400) K/uL MPV (7.4-10.4) fL Immature Gran % (Auto) % Neut % (Auto) % Lymph % (Auto) % Hamblen % (Auto) % Eos % (Auto) % Baso % (Auto) % Neut # (Auto) (1.4-6.5) K/uL Lymph # (Auto) (1.2-3.4) K/uL Hamblen # (Auto) (0.11-0.59) K/uL Eos # (Auto) (0-0.5) K/uL Baso # (Auto) (0-0.2) K/uL Immature Gran # (Auto) (0.00-0.02) K/uL Sodium (136-145) mmol/L Potassium 4.2 (3.5-5.1) mmol/L Chloride (98-107) mmol/L Carbon Dioxide (21-32) mmol/L Anion Gap (3-11) BUN (7-18) mg/dl Creatinine (0.6-1.4) mg/dl Est Cr Clr Drug Dosing ml/min Est GFR ( Amer) Est GFR (Non-Af Amer) BUN/Creatinine Ratio (10-20) Glucose (70-99) mg/dl Lactate (0.4-2.0) mmol/L Calcium (8.5-10.1) mg/dl Magnesium 1.9 (1.8-2.4) mg/dl Troponin I (0-0.045) ng/ml NT-Pro-B Natriuret Pep 62 (0-1800) pg/ml COVID-19 Eval Order Covid19 Done at [facility] COVID-19 PCR NEGATIVE (Negative) Administered Medications Doxycycline Hyclate (Doxycycline Hyclate 100 Mg Cap) 100 mg PO BID [facility] Stop: 12/30/19 04:21 Last Admin: 12/23/19 04:56 Dose: 100 mg Documented by: [id number] Ceftriaxone Sodium 2,000 mg/ (Dextrose) 70 mls @ 100 mls/hr IV Q24H [facility]; Protocol Stop: 12/30/19 05:59 Last Infusion: 12/23/19 05:44 Dose: 0 mls/hr Documented by: [id number] Admin: 12/23/19 04:56 Dose: 100 mls/hr Documented by: [id number] Levothyroxine Sodium (Levothyroxine Sodium 100 Mcg Tablet) 100 mcg PO DAILYBB [facility] Stop: 01/22/20 06:29 Last Admin: 12/23/19 06:08 Dose: 100 mcg Documented by: [id number] Discontinued Medications Dexamethasone (Dexamethasone Sod Inj 10 Mg/Ml Vial) 10 mg IV NOW ONE Stop: 12/23/19 01:09 EST Last Admin: 12/23/19 01:27 EST Dose: 10 mg Documented by: [id number] Furosemide (Furosemide 40 Mg/4 Ml Vial) 40 mg IV NOW STA Stop: 12/23/19 03:28 Last Admin: 12/23/19 03:46 Dose: 40 mg Documented by: [id number] Discharge Plan Visit Data Chief Complaint: Respiratory Problems Stated Complaint: BREATHING DIFFICULTY ED Provider: Hugh Olguin Discharge Problem: Acute respiratory failure Patient Disposition: Admitted As Inpatient Discharge Instructions Interventions: ED Discharge Assessment Last Done: 12/23/19 04:10 Discharge Problem: Acute respiratory failure Qualifiers: Respiratory failure complication: hypoxia Qualified Code(s): J96.01 - Acute respiratory failure with hypoxia
[2019-12-23 01:30] LABS: Basophils # (auto) 0.02 K/uL (0-0.2); Basophils % (auto) 0.1 %; Eosinophils # (auto) 0.22 K/uL (0-0.5); Eosinophils % (auto) 1.3 %; Hematocrit (blood only) 47.7 % (42-52); Hemoglobin 16.2 g/dL (14.0-18.0); Immature Granulocytes # (auto) 0.08 K/uL (0.00-0.02); Immature Granulocytes % (auto) 0.5 %; Lymphocytes # (auto) 1.61 K/uL (1.2-3.4); Lymphocytes % (auto) 9.9 %; Mean Corpuscular Hemoglobin 33.1 pg (25-34); Mean Corpuscular Volume 97.3 fL (80-100); Mean Platelet Volume 10.1 fL (7.4-10.4); Monocytes # (auto) 1.49 K/uL (0.11-0.59); Monocytes % (auto) 9.1 %; Neutrophils # (auto) 12.89 K/uL (1.4-6.5); Neutrophils % (auto) 79.1 %; Platelet Count 168 K/uL (130-400); RDW Coefficient of Variation 14.2 % (11.5-14.5); RDW Standard Deviation 50.5 fL (36.4-46.3); White Blood Count 16.31 K/uL (4.8-10.8)
[~2019-12-23 01:38] MED LIST changes: -ASPCH81X PO; -BENZ100C18 PO; -CALC600T24 PO; -CITA40TA12 PO; -CLOP1TAB15 PO; +DEXAMETHASONE SOD INJ 10 MG/ML VIAL IV ONE; -FLUT0.15 NAE; -GABA-112 PO; -IPRA1AER2 INH; -ISOS30TA35 PO; -LEVO88TA3 PO; -LIDOCAINE HCL 2% 2 ML VIAL (20MG/ML) ONE; -LORA-741 PO; -MULT-506 PO; -NTRGSL/4 UT; -OXGN; -OXYC-57 PO; -POLY335019 PO; -PROP80TA2 PO; -PROPOFOL IV EMULSION 10 MG/ML 20 ML VIAL IV ONE; -RANI150T2 PO; -SIMV20TA2 PO; -SODIUM CHLORIDE 0.9% 500ML 500 ML IV ONE; -TRIA37.5 PO
[2019-12-23 01:57] LABS: BUN Creatinine Ratio 11.4 (10-20); Blood Urea Nitrogen 14 mg/dl (7-18); Calcium 9.2 mg/dl (8.5-10.1); Carbon Dioxide 30 mmol/L (21-32); Chloride 102 mmol/L (98-107); Creatinine Clr Calc Pharmacy 49.6 ml/min; Est GFR (African American) 65.4; Est GFR (Non-African American) 56.4; Glucose 120 mg/dl (70-99); Sodium 136 mmol/L (136-145); Troponin I < 0.015 ng/ml (0-0.045)
[2019-12-23 02:55] LABS: Magnesium 1.9 mg/dl (1.8-2.4); Potassium 4.2 mmol/L (3.5-5.1)
[2019-12-23] MEDS ORDERED: FUROSEMIDE 40 MG/4 ML VIAL IV STA (03:27)
[2019-12-23 03:54] LABS: Appearance Urine Clear (Clear); Bacteria Urine Automated Negative (Negative); Bilirubin Urine Negative (Negative); Blood Urine Trace (Negative); Color Urine Yellow; Epithelial Cell Urine Auto 20-30 /lpf (0-5); Glucose Urine UA Negative (Negative); Ketones Urine Negative (Negative); Leukocyte Esterase Urine Negative (Negative); Nitrite Urine Negative (Negative); Protein Urine Negative (Negative); RBC Urine Automated 0-4 /hpf (0-4); Specific Gravity Urine 1.016 (1.000-1.030); Urobilinogen Urine Negative (Negative)
[2019-12-23] MEDS ORDERED: ACETAMINOPHEN 325 MG TAB PO PRN (04:22)
[2019-12-23] MEDS ORDERED: XOPENEX/ATROVENT 1.25mg/0.5MG NEB COMBO NEB PRN (04:22)
[2019-12-23] MEDS ORDERED: NITROGLYCERIN SL 0.4 MG/TAB TAB SL PRN (04:22)
[2019-12-23] MEDS ORDERED: CEFDINIR 300 MG CAP PO SCH (04:22)
[2019-12-23] MEDS ORDERED: LEVALBUTEROL 1.25MG/0.5ML NEB INH PRN (04:42)
[2019-12-23] MEDS ORDERED: IPRATROPIUM BROMIDE NEB SOLN 0.02% 2.5 ML VIAL INH PRN (04:43)
[2019-12-23] MEDS: cefTRIAXone SODIUM 2,000 MG in DEXTROSE 5% 50 ML IV SCH (04:56)
[2019-12-23] MEDS: DOXYCYCLINE HYCLATE 100 MG CAP PO SCH ×3 (04:56→20:49)
[2019-12-23] MEDS: LEVOTHYROXINE SODIUM 100 MCG TABLET PO SCH (06:08)
--- NOTE | 2019-12-23 06:31 | History and Physical Report ---
DATE OF ADMISSION: 12/23/2019 CHIEF COMPLAINT: Shortness of breath. HISTORY OF PRESENT ILLNESS: This is a 79-year-old male with past medical history significant for hypothyroidism, hyperlipidemia, history of congenital anomaly of lung, nocturnal hypoxemia, sleep apnea, uses 4 liters of oxygen while sleeping, history of restrictive lung disease, elevated hemidiaphragm, CAD, hypertension, osteoporosis, depression, spinal stenosis, familial tremors, who lives alone, ambulates with a cane, comes because of shortness of breath. The patient says for the last few days he was not feeling his usual self. Today after dinner he suddenly felt short of breath and tried to go to bed and it got worse. He called his friend and then called 911 and brought in here. Initially, he was placed on CPAP for severe shortness of breath. In the ER, he was switched to BiPAP. Currently, he is feeling better on BiPAP and saturating fine and able to give his history. The patient says that last Tuesday he choked on his steak and he has chronic cough, but it got little worse in the last few days and also he brings up some light yellowish phlegm. Denies any fever, chills. Currently says he has some chest tightness when taking deep breaths and also some abdominal tightness. He is taking Lasix 40 mg daily, but did not take today's dose yet. Denies any exposure to COVID. He says he cooks most of the food himself at home, but once in a while he goes out to eat food. Denies any loss of sense of smell or taste. No headache, no blurred visions, no earache. Has some runny nose for the last 3 months. No sore throat, no nausea, no vomiting, no diarrhea or constipation. He says urine is somewhat dark colored. Has some edema in the lower extremities. He says appetite is okay. ALLERGIES: GRAPEFRUIT. PAST MEDICAL HISTORY: As mentioned above. PAST SURGICAL HISTORY: Left heart catheterization, colonoscopy, cystoscopy, EGDs, lithotripsy, tonsillectomy, cataract surgeries. MEDICATIONS: The patient is on calcium plus vitamin D 1 tablet daily, citalopram 40 mg p.o. daily, Plavix 75 mg p.o. daily, Combivent 1 puff inhalation q.i.d., Lasix currently taking 40 mg daily, isosorbide mononitrate 30 mg p.o. a.m., levothyroxine 100 mcg p.o. daily, multivitamin 1 tablet p.o. a.m., nitroglycerin 1 tablet sublingual p.r.n., propranolol 20 mg p.o. t.i.d., simvastatin 10 mg at bedtime, Reclast 1 dose IV yearly. FAMILY HISTORY: Significant for mother has diabetes. SOCIAL HISTORY: Currently lives alone. Sister lives in the town and daughter lives in the [facility]. Former smoker, smoked occasional pipe cigarette socially when he was younger. Alcohol rarely. No drug use. REVIEW OF SYSTEMS: As per HPI. Rest of review of systems negative. PHYSICAL EXAMINATION: GENERAL: The patient is of moderate build, not in acute distress. VITAL SIGNS: Temperature 36.4, pulse 68, respiratory 22, blood pressure 123/80, oxygen 95% on BiPAP. HEENT: Pupils equal, round, and reactive to light. No pallor, no icterus. NECK: No JVD, no neck masses. CARDIOVASCULAR: S1, S2 heard, regular rate and rhythm, no murmur, no gallop. RESPIRATORY SYSTEM: Normal AP diameter. No accessory muscle use. Mild bibasilar crackles. Mild occasional wheezing. ABDOMEN: Soft, bowel sounds present. Umbilical hernia seen. No guarding, no rigidity, mild distention. CENTRAL NERVOUS SYSTEM: Cranial nerves II-XII grossly intact, nonfocal. EXTREMITIES: Bilateral lower extremity edema present, no erythema seen. LABORATORY DATA: WBC 16, hemoglobin 16.2, hematocrit 47.7, platelets 168. Sodium 136, chloride 102, bicarbonate 30, BUN 14, creatinine 1.22, serum glucose 120, lactate 1.8, magnesium 1.9, calcium 9.2. Troponin I less than 0.015. BNP 62. Urinalysis negative. COVID-19 PCR negative. IMAGING DATA: Chest x-ray,mild congestion? elevated diaphragm EKG: Normal sinus rhythm, rate of 74, no acute ST changes seen. ASSESSMENT AND PLAN: This is a 79-year-old male who presents with shortness of breath. 1. Shortness of breath, acute respiratory distress requiring BiPAP, currently saturating fine on BiPAP. We will try to wean off Bipap. The patient uses 4 liters oxygen in the nighttime only at home. Most likely secondary to [id number] right-sided heart failure, questionable pneumonia. We will place him on IV Lasix 40 daily. Follow I's and O's, strict daily weights. Echocardiogram. Consult cardiology in a.m. Closely monitor. 2. History of nocturnal hypoxemia. Continue his oxygen 4 liters at nighttime. 3. Leukocytosis. Has cough, history of restrictive lung disease with asthma component. Will continue his home inhalers. We will place him on nebs around the clock and p.r.n. received a dose of Decadron in ER. We will hold on steroids for now and empirically put him Rocephin and po doxycycline for possible pneumonia and we will monitor. 4. History of possible aspiration. The patient states he choked on steak last Tuesday. We will consult speech therapy. 5. History of coronary artery disease status post bare-metal stent to the LAD in 2008. Continue his Plavix, Imdur, statin, and beta james. Currently seems to be stable. 6. History of familial tremors, on propranolol. 7. Hyperlipidemia, on statin. 8. Depression, on citalopram. 9. Hypothyroidism, on Synthroid. 10. Hypertension, on Imdur and diuretics and propranolol. Will follow the blood pressure. 11. Deep venous thrombosis prophylaxis, sequential compression devices. DISPOSITION: Admit to tele floor. PT and OT prior to discharge. Social service to help with discharge planning. SERGIO
[2019-12-23] MEDS ORDERED: XOPENEX/ATROVENT 0.63mg/0.5MG NEB COMBO NEB SCH (07:00)
[2019-12-23] MEDS ORDERED: LEVALBUTEROL 1.25MG/0.5ML NEB INH SCH (07:00)
[2019-12-23] MEDS ORDERED: IPRATROPIUM BROMIDE NEB SOLN 0.02% 2.5 ML VIAL INH SCH (07:00)
[2019-12-23 07:39] LABS: Basophils # (auto) 0.01 K/uL (0-0.2); Basophils % (auto) 0.1 %; Eosinophils # (auto) 0.01 K/uL (0-0.5); Eosinophils % (auto) 0.1 %; Immature Granulocytes # (auto) 0.06 K/uL (0.00-0.02); Immature Granulocytes % (auto) 0.4 %; Lymphocytes # (auto) 1.27 K/uL (1.2-3.4); Lymphocytes % (auto) 8.9 %; Mean Corpuscular Hemoglobin 32.3 pg (25-34); Mean Corpuscular Hgb Conc 33.3 g/dL (32-36); Mean Platelet Volume 10.5 fL (7.4-10.4); Monocytes # (auto) 0.14 K/uL (0.11-0.59); Neutrophils % (auto) 89.5 %; Platelet Count 170 K/uL (130-400); RDW Coefficient of Variation 14.1 % (11.5-14.5); RDW Standard Deviation 50.2 fL (36.4-46.3); Red Blood Count 5.26 M/uL (4.7-6.1); White Blood Count 14.19 K/uL (4.8-10.8)
--- NOTE | 2019-12-23 08:02 | Electrocardiogram Report ---
Test Reason : Blood Pressure : / mmHG Vent. Rate : 074 BPM Atrial Rate : 074 BPM P-R Int : 158 ms QRS Dur : 100 ms QT Int : 400 ms P-R-T Axes : 037 055 075 degrees QTc Int : 444 ms Poor data quality, interpretation may be adversely affected Normal sinus rhythm Possible Old Septal infarct (cited on or before 12-JUN-2014) Abnormal ECG When compared with ECG of 05-OCT-2018 05:13, No significant change Confirmed by Uriah Hurtado ([id number]) on 12/23/2019 8:01:54 AM Referred By: REFERRED SELF Confirmed By:Uriah Hurtado
[2019-12-23] MEDS: CALCIUM 600MG + VIT D 400 IU TAB PO SCH (08:08)
[2019-12-23] MEDS: CITALOPRAM 40 MG TAB PO SCH (08:09)
[2019-12-23] MEDS: HEPARIN SOD 5,000 UNIT/0.5 ML VIAL SQ SCH ×3 (08:09→20:50)
[2019-12-23] MEDS: PROPRANOLOL HCL 20 MG TAB PO SCH ×3 (08:09→20:49)
[2019-12-23] MEDS: ISOSORBIDE MONO EXTENDED REL 30 MG TABCR PO SCH (08:09)
[2019-12-23] MEDS: CLOPIDOGREL BISULFATE 75 MG TAB PO SCH (08:09)
[2019-12-23] MEDS: MULTIVITAMIN TAB PO SCH (08:09)
--- NOTE | 2019-12-23 08:12 | XRay Report ---
XR chest 1V portable HISTORY: 79 years-old Male shob acute shortness of breath COMPARISON: Chest radiographs 02/26/2016 TECHNIQUE: Portable AP view the chest FINDINGS: Cardiac silhouette is enlarged, unchanged. Hypoinflation. Pulmonary vascular congestion with linear b ibasilar densities and costophrenic angle blunting. No pneumothorax. Degenerative changes of the shou lders and spine. Sigmoidal thoracolumbar scoliosis. IMPRESSION: 1. Cardiomegaly with pulmonary vascular congestion and hypoinflation. 2. Bibasilar opacities favor atelectasis. ACT 112: Negative or not required by law. The above report was generated using voice recognition software. It may contain grammatical, syntax o r spelling errors. Electronically signed by: Aric Fofana M.D. 12/23/2019 8:11 AM
[2019-12-23 08:13] LABS: BUN Creatinine Ratio 11.4 (10-20); Blood Urea Nitrogen 14 mg/dl (7-18); Calcium 9.6 mg/dl (8.5-10.1); Carbon Dioxide 28 mmol/L (21-32); Chloride 100 mmol/L (98-107); Creatinine Clr Calc Pharmacy 49.9 ml/min; Est GFR (African American) 68.1; Est GFR (Non-African American) 58.8; Glucose 175 mg/dl (70-99); Potassium 3.8 mmol/L (3.5-5.1); Sodium 134 mmol/L (136-145)
[2019-12-23 08:15] LABS: Troponin I < 0.015 ng/ml (0-0.045)
[2019-12-23] MEDS ORDERED: IPRATROPIUM BROMIDE/ALBUTEROL respimat INH INH PRN (09:00)
[2019-12-23] MEDS ORDERED: FUROSEMIDE 40 MG/4 ML VIAL IV SCH (09:00)
[2019-12-23] MEDS ORDERED: FUROSEMIDE 40 MG in SYRINGE 0 ML IV SCH (09:30)
--- NOTE | 2019-12-23 10:53 | Cardiology Consultation ---
Date of Consultation December 23, 2019 Assessment & Plan (1) Shortness of breath: (2) Acute respiratory failure: (3) CAD (coronary artery disease): (4) EZEQUIEL (obstructive sleep apnea): (5) COPD (chronic obstructive pulmonary disease): (6) Stented coronary artery: (7) Aspiration into airway: Significant shortness of breath after choking on a piece of steak and then falling asleep without his oxygen with underlying severe obstructive sleep apnea. Responding well to therapy. I do not believe there is any significant cardiac component to this event. No need for diuretics at this time. Echocardiogram is unchanged and no further cardiac work-up necessary at this point. Continue outpatient medical regimen Okay to DC telemetry from a cardiac standpoint. History of Present Illness Reason for Consultation: SOB Requesting Physician: Dr. Rodriguez Attending Physician: Valorie Mcgregor MD History of Present Illness Mr. Starks is a very pleasant 79-year-old gentleman who routinely follows with Dr. Ramirez of our outpatient cardiology practice for his history of coronary artery disease. He presented to [facility] on 12/22/2019 with complaints of shortness of breath. He states he has been feeling great lately but last evening he was eating steak at a local diner when he choked on a piece. Ever since then his breathing started to decline. He fell asleep on the couch at home without his oxygen when he awoke he was severely short of breath. At that point, his neighbor called 911 and is brought into the ER. Upon arrival he was hypoxic and started on CPAP. His sats improved and he was changed to BiPAP and overnight supplemental oxygen only. He was admitted to telemetry and started on Lasix IV. Currently states he feels much better. His breathing feels great with the oxygen on and denies any chest pain, palpitations, lightheadedness or dizziness. Past medical history as per most recent outpatient cardiology visit note: 1. Atherosclerotic coronary disease, status post acute thrombotic left anterior descending occlusion treated with stenting with bare metal stent, September 2008. 2. Hypertension. 3. Hyperlipidemia. 4. Asthmatic lung disease with severe obstructive sleep apnea (untreated) and restrictive component secondary to chronically elevated right hemidiaphragm, nocturnal O2 dependent. 5. Severe thoracolumbar scoliosis 6. Essential tremor 7. Hypothyroidism 8. Chronic peripheral edema/right heart failure Allergies Allergy/AdvReac Type Severity Reaction Status Date / Time grapefruit Allergy Unknown WAS TOLD Verified 12/23/19 01:07 EST NOT TO TAKE No Known Drug Allergies Allergy Unknown . Verified 12/23/19 01:07 EST Home Medications Home Medications Medication Instructions Recorded Confirmed Type Combivent Respimat 1 puff INHALATION QID 03/14/18 12/23/19 History citalopram 40 mg PO QAM 03/14/18 12/23/19 History clopidogrel [Plavix] 75 mg PO QAM 03/14/18 12/23/19 History furosemide See Rx Instructions .ROUTE 03/14/18 12/23/19 History .COMPLEX PRN isosorbide mononitrate 30 mg PO QAM 03/14/18 12/23/19 History levothyroxine 100 mcg PO QAM 03/14/18 12/23/19 History multivitamin 1 tab PO QAM 03/14/18 12/23/19 History nitroglycerin 1 tab SUBLINGUAL UD PRN 03/14/18 12/23/19 History zoledronic esos-dvufrbit-wphoq 1 dose IV YEARLY 03/14/18 12/23/19 History [Reclast] calcium carbonate-vitamin D3 1 tab PO DAILY 12/23/19 12/23/19 History [Calcium 600 + D(3)] propranolol 20 mg PO TID 12/23/19 12/23/19 History simvastatin 10 mg PO HS 12/23/19 12/23/19 History Patient History Medical History (Updated 12/23/19 @ 13:09 by Salvador Tate DO) Chronic back pain Chronic obstructive pulmonary disease Depression Familial tremor reason for propranolol GERD (gastroesophageal reflux disease) Hyperlipidemia Hypertension Hypothyroidism Kidney stones Myocardial Infarction 2009 On anticoagulant therapy plavix daily On home oxygen therapy 3L N/C at hs Scoliosis Sleep apnea uses 3L N/C hs SOB (shortness of breath) on exertion with wheezing Tinnitus of both ears Surgical History History of bilateral cataract extraction [place] of cardiac cath [place] [facility] [place]follows with Dr. Ramirez History of colonoscopy History of esophagogastroduodenoscopy (EGD) History of heart artery stent x1 2009[place] [place] of lithotripsy History of open reduction and internal fixation (ORIF) procedure left foot fx/pinky toe fx--hardware in place History of testicular surgery "sac full of blood in testicle drained at 26 yrs old" History of tonsillectomy History of wisdom tooth extraction Hx of right inguinal hernia repair Hx of vasectomy Family History Sister Family history of reaction to anesthesia nausea/vomiting Mother Family history of diabetes mellitus Social History Smoking Status: Never smoker Second Hand Exposure: Yes (work environment); Hx Alcohol Use: No Hx Substance Use: No Preferred Language: Cymro Communication Ability: Effective Field Education Coordinator Required: No Beliefs That Will Affect Care: None marital status: Current Living Situation: Alone How many Children do You have: 1 Other Information That Helps Us Care for You: No Feels Safe at Home: Yes Safety Concerns: Feels Safe At This Time Assistive Devices: Cane and Oxygen - Continuous Review of Systems Review of Systems: All systems reviewed & are unremarkable except as noted in HPI & below Physical Exam Physical Exam: General: Awake, alert and oriented x 3. No acute distress. HEENT: Normocephalic, atraumatic. Pupils equal, round and reactive to light and accommodation. Extraocular muscles are intact. Anicteric sclera. Moist mucous membranes. Neck: No JVD. No bruit. Cardiovascular: Regular. Positive S-4. Normal S-1 and S-2. No S-3. 3/6 mid to late systolic ejection murmur, greatest at the right sternal border, second intercostal space with radiation to the bilateral carotids. No rubs. Pulmonary: Clear to auscultation bilaterally. No rales, rhonchi, or wheezing. Abdomen: Bowel sounds x 4, soft. No rebound, guarding or tenderness. No organomegaly. Extremities: No clubbing, cyanosis or edema. +2 pedal pulses bilaterally. Skin: Warm and dry. Results & Data ([facility]) Vital Signs (Past 12 Hours) Vital Signs Temp Pulse Pulse Pulse Pulse Resp BP 12/23/19 10:00 70 20 12/23/19 07:28 36.7 C 67 20 12/23/19 04:25 36.9 C 68 20 12/23/19 03:46 68 22 12/23/19 02:34 68 22 12/23/19 02:18 68 22 12/23/19 01:46 EST 12/23/19 01:29 EST 68 22 12/23/19 01:03 EST 12/23/19 01:53 EDT 36.4 C L 72 24 127/92 12/23/19 01:46 EDT 74 24 BP Pulse Ox 12/23/19 10:00 92 12/23/19 07:28 133/82 92 12/23/19 04:25 140/83 91 12/23/19 03:46 129/80 95 12/23/19 02:34 124/84 95 12/23/19 02:18 128/81 95 12/23/19 01:46 EST 95 12/23/19 01:29 EST 129/83 97 12/23/19 01:03 EST 96 12/23/19 01:53 EDT 97 12/23/19 01:46 EDT 94 (1) Acute respiratory failure Respiratory failure complication: hypoxia Qualified Code(s): J96.01 - Acute respiratory failure with hypoxia
--- NOTE | 2019-12-23 10:56 | Hospitalist Progress Note ---
Date of Service December 23, 2019 Assessment & Plan (1) Acute respiratory failure: (2) Leukocytosis: (3) Shortness of breath: SOB, increased cough, choking episode Required NIV on admission per Admitting physician but no documented desaturation CXR reported cardiomegaly with pulm vascular congestion, costophrenic angle blunting and hypoinflation BNP 62 SOB may be due to some pulmonary congestion vs atelectasis vs aspiration pneumonitis based on reported history, XR findings and leukocytosis Possible acute on chronic diastolic HF for which patient was started on iv lasix Patient does not seem overly fluid overloaded on my exam at this time Cardiology had been consulted on admission. Will follow up evaluation Continue antibiotics Incentive spirometry Wean oxygen as tolerated Other plans as in H/P (4) CAD (coronary artery disease): (5) Stented coronary artery: Continue statin, home meds (6) HTN (hypertension): Cont imdur, propranolol (7) Dyslipidemia: Continue statin (8) Hypothyroidism: Continue levothyroxine (9) Depression: Continue citalopram Admission and Anticipated Discharge Date Admission Date: December 23, 2019 Subjective Patient seen and examined. Reports malaise over the past few days. He also reported a recent choking episode with food . His shortness of breath has been worsening and got worse after that Has chronic cough which also worsened after the episode Denied any orthopnea. Reports occasional shortness of breath with exertion and leg swelling, stating he has good and bad days Denied any fevers, nausea, vomiting Denied any chest pain, diarrhea, constipation Physical Exam Constitutional: + well hydrated; no acute distress Mild tremors Eyes: PERRL, conjunctivae normal, anicteric sclerae ENMT: Some hearing deficits Respiratory: normal respiratory effort; no respiratory distress minimal basal crackles Cardiovascular: Rate/Rhythm: regular rate and regular rhythm Extremities: no pedal edema S1 S2 Gastrointestinal (Abdomen): normal bowel sounds, soft, nontender, no hepatosplenomegaly Neurologic: PERRL, EOMI, accommodation nl, no face palsy, no dysarthria Psychiatric: A+Ox3, euthymic affect Results & Data Results & Data ([facility]) Vital Signs (Past 12 Hours) Vital Signs Temp Pulse Pulse Pulse Pulse Resp BP 12/23/19 10:00 70 20 12/23/19 07:28 36.7 C 67 20 12/23/19 04:25 36.9 C 68 20 12/23/19 03:46 68 22 12/23/19 02:34 68 22 12/23/19 02:18 68 22 12/23/19 01:46 EST 12/23/19 01:29 EST 68 22 12/23/19 01:03 EST 12/23/19 01:53 EDT 36.4 C L 72 24 127/92 12/23/19 01:46 EDT 74 24 BP Pulse Ox 12/23/19 10:00 92 12/23/19 07:28 133/82 92 12/23/19 04:25 140/83 91 12/23/19 03:46 129/80 95 12/23/19 02:34 124/84 95 12/23/19 02:18 128/81 95 12/23/19 01:46 EST 95 12/23/19 01:29 EST 129/83 97 12/23/19 01:03 EST 96 12/23/19 01:53 EDT 97 12/23/19 01:46 EDT 94 Laboratory Results Laboratory Results - last 24 hr 12/23/19 12/23/19 12/23/19 01:17 EST 01:17 EST 01:17 EST WBC 16.31 H RBC 4.90 Hgb 16.2 Hct 47.7 MCV 97.3 MCH 33.1 MCHC 34.0 RDW Std Deviation 50.5 H RDW Coeff of Mannie 14.2 Plt Count 168 MPV 10.1 Immature Gran % (Auto) 0.5 Neut % (Auto) 79.1 Lymph % (Auto) 9.9 Bremer % (Auto) 9.1 Eos % (Auto) 1.3 Baso % (Auto) 0.1 Neut # (Auto) 12.89 H Lymph # (Auto) 1.61 Bremer # (Auto) 1.49 H Eos # (Auto) 0.22 Baso # (Auto) 0.02 Immature Gran # (Auto) 0.08 H Sodium 136 Potassium Chloride 102 Carbon Dioxide 30 Anion Gap 4.0 BUN 14 Creatinine 1.22 Est Cr Clr Drug Dosing 49.6 Est GFR ( Amer) 65.4 Est GFR (Non-Af Amer) 56.4 BUN/Creatinine Ratio 11.4 Glucose 120 H Lactate 1.8 Calcium 9.2 Magnesium Troponin I < 0.015 NT-Pro-B Natriuret Pep Urine Color Urine Appearance Urine pH Ur Specific Eads Urine Protein Urine Glucose (UA) Urine Ketones Urine Blood Urine Nitrite Urine Bilirubin Urine Urobilinogen Ur Leukocyte Esterase Urine WBC (Auto) Urine RBC (Auto) U Hyaline Cast (Auto) U Epithel Cells (Auto) Urine Bacteria (Auto) COVID-19 Eval Order COVID-19 PCR 12/23/19 12/23/19 12/23/19 01:20 EST 01:20 EST 02:10 WBC RBC Hgb Hct MCV MCH MCHC RDW Std Deviation RDW Coeff of Mannie Plt Count MPV Immature Gran % (Auto) Neut % (Auto) Lymph % (Auto) Bremer % (Auto) Eos % (Auto) Baso % (Auto) Neut # (Auto) Lymph # (Auto) Bremer # (Auto) Eos # (Auto) Baso # (Auto) Immature Gran # (Auto) Sodium Potassium 4.2 Chloride Carbon Dioxide Anion Gap BUN Creatinine Est Cr Clr Drug Dosing Est GFR ( Amer) Est GFR (Non-Af Amer) BUN/Creatinine Ratio Glucose Lactate Calcium Magnesium 1.9 Troponin I NT-Pro-B Natriuret Pep 62 Urine Color Urine Appearance Urine pH Ur Specific Eads Urine Protein Urine Glucose (UA) Urine Ketones Urine Blood Urine Nitrite Urine Bilirubin Urine Urobilinogen Ur Leukocyte Esterase Urine WBC (Auto) Urine RBC (Auto) U Hyaline Cast (Auto) U Epithel Cells (Auto) Urine Bacteria (Auto) COVID-19 Eval Order Covid19 Done at [facility] COVID-19 PCR NEGATIVE 12/23/19 12/23/19 12/23/19 03:45 06:56 06:56 WBC 14.19 H RBC 5.26 Hgb 17.0 Hct 51.0 MCV 97.0 MCH 32.3 MCHC 33.3 RDW Std Deviation 50.2 H RDW Coeff of Mannie 14.1 Plt Count 170 MPV 10.5 H Immature Gran % (Auto) 0.4 Neut % (Auto) 89.5 Lymph % (Auto) 8.9 Bremer % (Auto) 1.0 Eos % (Auto) 0.1 Baso % (Auto) 0.1 Neut # (Auto) 12.70 H Lymph # (Auto) 1.27 Bremer # (Auto) 0.14 Eos # (Auto) 0.01 Baso # (Auto) 0.01 Immature Gran # (Auto) 0.06 H Sodium 134 L Potassium 3.8 Chloride 100 Carbon Dioxide 28 Anion Gap 7.0 BUN 14 Creatinine 1.18 Est Cr Clr Drug Dosing 49.9 Est GFR ( Amer) 68.1 Est GFR (Non-Af Amer) 58.8 BUN/Creatinine Ratio 11.4 Glucose 175 H Lactate Calcium 9.6 Magnesium 2.0 Troponin I < 0.015 NT-Pro-B Natriuret Pep Urine Color Yellow Urine Appearance Clear Urine pH 5.0 Ur Specific Eads 1.016 Urine Protein Negative Urine Glucose (UA) Negative Urine Ketones Negative Urine Blood Trace H Urine Nitrite Negative Urine Bilirubin Negative Urine Urobilinogen Negative Ur Leukocyte Esterase Negative Urine WBC (Auto) 1-5 Urine RBC (Auto) 0-4 U Hyaline Cast (Auto) 1-5 U Epithel Cells (Auto) 20-30 H Urine Bacteria (Auto) Negative COVID-19 Eval Order COVID-19 PCR (1) Acute respiratory failure Respiratory failure complication: hypoxia Qualified Code(s): J96.01 - Acute respiratory failure with hypoxia
[2019-12-23] MEDS: IPRATROPIUM BROMIDE NEB SOLN 0.02% 2.5 ML VIAL INH SCH ×3 (11:48→19:11)
[2019-12-23] MEDS: LEVALBUTEROL HCL 0.63 MG/3 ML NEB NEB SCH ×3 (11:49→19:11)
[2019-12-23] MEDS ORDERED: OPTIRAY 320 125ml IV ONE (12:32)
--- NOTE | 2019-12-23 13:34 | CT Scan Report ---
CT angio chest PE protocol CT DOSE: 526.55 mGycm HISTORY: 79 years-old Male with Assess lung benavides better and also rule out PE. Acute shortness of breath TECHNIQUE: Multiple CTA images of the chest were obtained after the intravenous administration of 118 ml Optiray 320. Coronal and sagittal MIPS were obtained from the axial data set and were submitted for review. All measurements were obtained according to NASCET criteria. A dose lowering technique w as utilized adhering to the principles of ALARA. COMPARISON: Chest radiograph of same day, CTA chest 04/06/2013 FINDINGS: CTA: Mild cardiomegaly. No pericardial effusion. Coronary artery calcifications. Hypertrophic changes of t he left ventricle. No thoracic aortic aneurysm or dissection. There is patency of the imaged great ve ssels. Descending thoracic aortic tortuosity. The pulmonary arterial tree is opacified to the level o f the proximal subsegmental branches and demonstrates no filling defects to suggest thromboembolic di sease. Respiratory motion artifact limits evaluation of the lung bases branches. CT CHEST: No adenopathy. No pneumothorax or pleural effusion. Chronic right hemidiaphragmatic elevation. Mild d ependent subsegmental bibasilar linear consolidation. Calcified granuloma of the superior segment rig ht lower lobe. Mild tracheobronchial secretions. No overt pulmonary edema or airspace disease elevati on typical for pneumonia. Layering cholelithiasis. Calcified granulomata of the spleen. Cirrhotic mildly prominent distal perie sophageal lymph nodes. Gynecomastia. Severe sigmoidal thoracolumbar scoliosis. Healed remote bilatera l rib fractures. Bones appear intact. IMPRESSION: 1. Cardiomegaly without acute aortic pathology or evidence of pulmonary thromboembolic disease. 2. Chronic right hemidiaphragmatic elevation with mild subsegmental bibasilar atelectasis. 3. No pleural effusion, adenopathy or airspace consolidation typical for pneumonia. 4. Prior granulomatous disease. 5. Cholelithiasis. ACT 112: Negative or not required by law. The above report was generated using voice recognition software. It may contain grammatical, syntax o r spelling errors. Electronically signed by: Aric Fofana M.D. 12/23/2019 1:33 PM
[2019-12-23] MEDS: SIMVASTATIN 10 MG TAB PO SCH (20:49)
[2019-12-24] MEDS: IPRATROPIUM BROMIDE NEB SOLN 0.02% 2.5 ML VIAL INH SCH ×2 (00:36→07:20)
[2019-12-24] MEDS: LEVALBUTEROL HCL 0.63 MG/3 ML NEB NEB SCH ×2 (00:36→07:20)
[2019-12-24] MEDS: LEVOTHYROXINE SODIUM 100 MCG TABLET PO SCH (06:50)
[2019-12-24] MEDS: HEPARIN SOD 5,000 UNIT/0.5 ML VIAL SQ SCH ×3 (06:50→21:30)
[2019-12-24] MEDS: cefTRIAXone SODIUM 2,000 MG in DEXTROSE 5% 50 ML IV SCH (06:50)
[2019-12-24 07:42] LABS: Hematocrit (blood only) 50.2 % (42-52); Hemoglobin 17.1 g/dL (14.0-18.0); Mean Corpuscular Hemoglobin 32.9 pg (25-34); Mean Corpuscular Hgb Conc 34.1 g/dL (32-36); Mean Corpuscular Volume 96.5 fL (80-100); Mean Platelet Volume 10.5 fL (7.4-10.4); Platelet Count 185 K/uL (130-400); RDW Standard Deviation 49.7 fL (36.4-46.3); White Blood Count 20.93 K/uL (4.8-10.8)
[2019-12-24 08:26] LABS: BUN Creatinine Ratio 12.2 (10-20); Calcium 9.5 mg/dl (8.5-10.1); Creatinine Clr Calc Pharmacy 51.6 ml/min; Est GFR (Non-African American) 61.3; Potassium 3.4 mmol/L (3.5-5.1)
[2019-12-24] MEDS: PROPRANOLOL HCL 20 MG TAB PO SCH ×3 (08:29→21:30)
[2019-12-24] MEDS: CITALOPRAM 40 MG TAB PO SCH (08:29)
[2019-12-24] MEDS: CALCIUM 600MG + VIT D 400 IU TAB PO SCH (08:29)
[2019-12-24] MEDS: ISOSORBIDE MONO EXTENDED REL 30 MG TABCR PO SCH (08:29)
[2019-12-24] MEDS ORDERED: POTASSIUM CHLORIDE 20 MEQ/15 ML UDC PO STA (08:30)
[2019-12-24] MEDS: MULTIVITAMIN TAB PO SCH (08:30)
[2019-12-24] MEDS: CLOPIDOGREL BISULFATE 75 MG TAB PO SCH (08:30)
[2019-12-24] MEDS: DOXYCYCLINE HYCLATE 100 MG CAP PO SCH ×2 (08:30→21:30)
--- NOTE | 2019-12-24 11:21 | Electrocardiogram Report ---
Test Reason : Blood Pressure : / mmHG Vent. Rate : 067 BPM Atrial Rate : 067 BPM P-R Int : 194 ms QRS Dur : 102 ms QT Int : 432 ms P-R-T Axes : 051 055 082 degrees QTc Int : 456 ms Normal sinus rhythm Nonspecific ST abnormality When compared with ECG of 23-DEC-2019 01:48, Questionable change in initial forces of Anteroseptal leads Confirmed by Fernando Nieves ([id number]) on 12/24/2019 11:21:14 AM Referred By: REFERRED SELF Confirmed By:Wan Nieves
--- NOTE | 2019-12-24 11:46 | Hospitalist Progress Note ---
Date of Service December 24, 2019 Assessment & Plan (1) Acute respiratory failure: (2) Leukocytosis: (3) Shortness of breath: SOB, increased cough, choking episode Required NIV on admission per Admitting physician but no documented desaturation CXR reported cardiomegaly with pulm vascular congestion, costophrenic angle blunting and hypoinflation BNP 62 SOB may be due to aspiration pneumonitis based on reported history, XR findings and leukocytosis Heart failure ruled out CT PE negative for PE, showed some right basilar atelectasis Leukocytosis increased today Continue antibiotics Incentive spirometry Wean oxygen off if possible 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 Patient counselled on diet consistency to avoid aspiration (4) CAD (coronary artery disease): (5) Stented coronary artery: Continue statin, home meds (6) HTN (hypertension): Cont imdur, propranolol (7) Dyslipidemia: Continue statin (8) Hypothyroidism: Continue levothyroxine (9) Depression: Continue citalopram Will follow up PT eval Admission and Anticipated Discharge Date Admission Date: December 23, 2019 Subjective Patient seen and examined this morning. Reports he is feeling better today compared to yesterday States cough is mildly improved Still has LONG Denied any chest pain, palpitations Denied any fevers, chills, nausea, vomiting Denied any abd pain, diarrhea, constipation Denied dysuria, freq Has chronic essential tremors Physical Exam Constitutional: + well hydrated; no acute distress Eyes: PERRL, conjunctivae normal, anicteric sclerae Respiratory: normal respiratory effort; no respiratory distress Mild basilar crackles On nasal oxygen at 4l/min Cardiovascular: Rate/Rhythm: regular rate and regular rhythm Extremities: no pedal edema Gastrointestinal (Abdomen): normal bowel sounds, soft, nontender, no hepatosplenomegaly Neurologic: PERRL, EOMI, accommodation nl, no face palsy, no dysarthria +tremors Psychiatric: A+Ox3, euthymic affect Results & Data Results & Data ([facility]) Vital Signs (Past 12 Hours) Vital Signs Temp Pulse Pulse Resp BP Pulse Ox 12/24/19 11:10 96 12/24/19 07:29 36.5 C 62 20 123/74 95 12/24/19 07:20 64 18 94 12/24/19 04:00 36.6 C 68 20 128/77 90 12/24/19 00:50 72 12/24/19 00:47 36.7 C 66 20 132/83 92 12/24/19 00:41 67 18 92 Laboratory Results Laboratory Results - last 24 hr 12/23/19 12/24/19 12/24/19 13:55 06:58 06:58 WBC 20.93 H RBC 5.20 Hgb 17.1 Hct 50.2 MCV 96.5 MCH 32.9 MCHC 34.1 RDW Std Deviation 49.7 H RDW Coeff of Mannie 14.0 Plt Count 185 MPV 10.5 H Sodium 136 Potassium 3.4 L Chloride 98 Carbon Dioxide 29 Anion Gap 9.0 BUN 14 Creatinine 1.14 Est Cr Clr Drug Dosing 51.6 Est GFR ( Amer) 71.0 Est GFR (Non-Af Amer) 61.3 BUN/Creatinine Ratio 12.2 Glucose 123 H Calcium 9.5 Troponin I < 0.015 (1) Acute respiratory failure Respiratory failure complication: hypoxia Qualified Code(s): J96.01 - Acute respiratory failure with hypoxia
[2019-12-24] MEDS ORDERED: IPRATROPIUM BROMIDE/ALBUTEROL respimat INH INH SCH (15:00)
[2019-12-24] MEDS: Ipratropium HFA Inhaler (Combivent Respimat P&T Subs) INH SCH ×2 (15:32→19:39)
[2019-12-24] MEDS: Albuterol HFA 8 GM Inhaler (Combivent Respimat P&T Subs) INH SCH ×2 (15:33→19:40)
--- NOTE | 2019-12-24 16:33 | Cardiology Progress Note ---
Date of Service December 24, 2019 Assessment & Plan (1) Shortness of breath: (2) Acute respiratory failure: (3) CAD (coronary artery disease): (4) EZEQUIEL (obstructive sleep apnea): (5) COPD (chronic obstructive pulmonary disease): (6) Stented coronary artery: (7) Aspiration into airway: Significant shortness of breath after choking on a piece of steak and then falling asleep without his oxygen with underlying severe obstructive sleep apnea. Responding well to therapy. I do not believe there is any significant cardiac component to this event. No need for diuretics at this time. Echocardiogram is unchanged and no further cardiac work-up necessary at this point. Continue outpatient medical regimen Okay DC telemetry from a cardiac standpoint. Admission and Anticipated Discharge Date Admission Date: December 23, 2019 Subjective Patient seen and examined, chart reviewed. Feeling well today but still requiring supplemental O2. Denies chest pain, shortness of breath, palpitations, lightheadedness, dizziness or syncope. Physical Exam Physical Exam: General: Awake, alert and oriented x 3. No acute distress. HEENT: Normocephalic, atraumatic. Pupils equal, round and reactive to light and accommodation. Extraocular muscles are intact. Anicteric sclera. Moist mucous membranes. Neck: No JVD. No bruit. Cardiovascular: Regular. Positive S-4. Normal S-1 and S-2. No S-3. 3/6 mid to late systolic ejection murmur, greatest at the right sternal border, second intercostal space with radiation to the bilateral carotids. No rubs. Pulmonary: Clear to auscultation bilaterally. No rales, rhonchi, or wheezing. Abdomen: Bowel sounds x 4, soft. No rebound, guarding or tenderness. No organomegaly. Extremities: No clubbing, cyanosis or edema. +2 pedal pulses bilaterally. Skin: Warm and dry. Results & Data ([facility]) Vital Signs (Past 12 Hours) Vital Signs Temp Pulse Pulse Pulse Resp BP Pulse Ox 12/24/19 15:37 61 20 93 12/24/19 15:26 36.8 C 61 20 135/86 93 12/24/19 11:10 96 12/24/19 11:00 36.5 C 61 20 126/76 93 12/24/19 08:00 71 12/24/19 07:29 36.5 C 62 20 123/74 95 12/24/19 07:20 64 18 94 (1) Acute respiratory failure Respiratory failure complication: hypoxia Qualified Code(s): J96.01 - Acute respiratory failure with hypoxia
[2019-12-24] MEDS: SIMVASTATIN 10 MG TAB PO SCH (21:30)
[2019-12-25 06:21] LABS: Hemoglobin 17.1 g/dL (14.0-18.0); Mean Corpuscular Hemoglobin 33.5 pg (25-34); Mean Corpuscular Hgb Conc 34.2 g/dL (32-36); Mean Corpuscular Volume 97.8 fL (80-100); Mean Platelet Volume 10.4 fL (7.4-10.4); Platelet Count 181 K/uL (130-400); RDW Coefficient of Variation 14.2 % (11.5-14.5); RDW Standard Deviation 50.5 fL (36.4-46.3); Red Blood Count 5.11 M/uL (4.7-6.1); White Blood Count 13.97 K/uL (4.8-10.8)
[2019-12-25] MEDS: LEVOTHYROXINE SODIUM 100 MCG TABLET PO SCH (06:35)
[2019-12-25] MEDS: cefTRIAXone SODIUM 2,000 MG in DEXTROSE 5% 50 ML IV SCH (06:35)
[2019-12-25] MEDS: HEPARIN SOD 5,000 UNIT/0.5 ML VIAL SQ SCH ×3 (06:40→21:20)
[2019-12-25 06:52] LABS: BUN Creatinine Ratio 18.8 (10-20); Calcium 9.5 mg/dl (8.5-10.1); Creatinine Clr Calc Pharmacy 54.5 ml/min; Est GFR (African American) 75.8; Est GFR (Non-African American) 65.4; Potassium 3.7 mmol/L (3.5-5.1)
[2019-12-25] MEDS: Ipratropium HFA Inhaler (Combivent Respimat P&T Subs) INH SCH ×4 (07:19→20:00)
[2019-12-25] MEDS: Albuterol HFA 8 GM Inhaler (Combivent Respimat P&T Subs) INH SCH ×4 (07:19→20:00)
[2019-12-25] MEDS: MULTIVITAMIN TAB PO SCH (09:32)
[2019-12-25] MEDS: CALCIUM 600MG + VIT D 400 IU TAB PO SCH (09:32)
[2019-12-25] MEDS: ISOSORBIDE MONO EXTENDED REL 30 MG TABCR PO SCH (09:32)
[2019-12-25] MEDS: CITALOPRAM 40 MG TAB PO SCH (09:32)
[2019-12-25] MEDS: PROPRANOLOL HCL 20 MG TAB PO SCH ×3 (09:32→21:20)
[2019-12-25] MEDS: CLOPIDOGREL BISULFATE 75 MG TAB PO SCH (09:32)
[2019-12-25] MEDS: DOXYCYCLINE HYCLATE 100 MG CAP PO SCH ×2 (09:33→21:20)
--- NOTE | 2019-12-25 11:34 | Hospitalist Progress Note ---
Date of Service December 25, 2019 Assessment & Plan (1) Acute respiratory failure: (2) Leukocytosis: (3) Shortness of breath: SOB, increased cough, choking episode Required NIV on admission per Admitting physician but no documented desaturation CXR reported cardiomegaly with pulm vascular congestion, costophrenic angle blunting and hypoinflation BNP 62 SOB, cough likely due to aspiration pneumonitis based on reported history, XR findings and leukocytosis Heart failure ruled out CT PE negative for PE, showed some right basilar atelectasis Leukocytosis resolving Change antibiotics to augmentin and doxycycline Continue Incentive spirometry 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 Patient counselled again on diet consistency to avoid aspiration (4) CAD (coronary artery disease): (5) Stented coronary artery: Continue statin, home meds (6) HTN (hypertension): Cont imdur, propranolol (7) Dyslipidemia: Continue statin (8) Hypothyroidism: Continue levothyroxine (9) Depression: Continue citalopram PT recommend rehab. Patient seem a bit reluctant about this I discussed this extensively with him about the benefits He stated he will think about it. CM informed and she will submit for insurance auth and follow up with patient Admission and Anticipated Discharge Date Admission Date: December 23, 2019 Subjective Patient seen and examined He reports continued improvement in cough and exertional dyspnea No fevers, chills, nausea, vomiting No abd pain, diarrhea No chest pain. Per RN, patient desaturated to high 80s on 2l/min NC while walking with OT this AM Physical Exam Constitutional: + well hydrated; no acute distress Eyes: PERRL, conjunctivae normal, anicteric sclerae Respiratory: normal respiratory effort; no respiratory distress Auscultation: no crackles and no rales Cardiovascular: Rate/Rhythm: regular rate and regular rhythm Extremities: no pedal edema S1 S2 Gastrointestinal (Abdomen): normal bowel sounds, soft, nontender, no hepatosplenomegaly Neurologic: PERRL, EOMI, accommodation nl, no face palsy, no dysarthria +Tremors Psychiatric: A+Ox3, euthymic affect Results & Data Results & Data ([facility] [place]) Vital Signs (Past 12 Hours) Vital Signs Temp Pulse Pulse Pulse Resp BP Pulse Ox 12/25/19 11:16 64 20 91 12/25/19 09:00 63 12/25/19 07:44 37.0 C 63 19 138/75 91 12/25/19 07:19 71 20 94 12/25/19 03:00 36.7 C 69 20 123/76 90 12/25/19 00:34 58 L Laboratory Results Laboratory Results - last 24 hr 12/24/19 12/25/19 12/25/19 11:54 05:47 05:47 WBC 13.97 H RBC 5.11 Hgb 17.1 Hct 50.0 MCV 97.8 MCH 33.5 MCHC 34.2 RDW Std Deviation 50.5 H RDW Coeff of Mannie 14.2 Plt Count 181 MPV 10.4 Sodium 138 Potassium 3.7 Chloride 101 Carbon Dioxide 31 Anion Gap 6.0 BUN 20 H Creatinine 1.08 Est Cr Clr Drug Dosing 54.5 Est GFR ( Amer) 75.8 Est GFR (Non-Af Amer) 65.4 BUN/Creatinine Ratio 18.8 Glucose 89 Calcium 9.5 Procalcitonin < 0.05 (1) Acute respiratory failure Respiratory failure complication: hypoxia Qualified Code(s): J96.01 - Acute respiratory failure with hypoxia
--- NOTE | 2019-12-25 12:49 | Electrocardiogram Report ---
Test Reason : Blood Pressure : / mmHG Vent. Rate : 062 BPM Atrial Rate : 062 BPM P-R Int : 176 ms QRS Dur : 090 ms QT Int : 452 ms P-R-T Axes : 020 061 075 degrees QTc Int : 458 ms Normal sinus rhythm When compared with ECG of 24-DEC-2019 06:20, Questionable change in initial forces of Anterior leads Confirmed by Fernando Nieves ([id number]) on 12/25/2019 12:48:54 PM Referred By: REFERRED SELF Confirmed By:Wan Nieves
[2019-12-25] MEDS: AMOXICILLIN/CLAVULANATE 875 MG TAB PO SCH (17:43)
[2019-12-25] MEDS: SIMVASTATIN 10 MG TAB PO SCH (21:20)
[2019-12-26] MEDS: LEVOTHYROXINE SODIUM 100 MCG TABLET PO SCH (05:30)
[2019-12-26] MEDS: HEPARIN SOD 5,000 UNIT/0.5 ML VIAL SQ SCH ×3 (05:30→21:05)
[2019-12-26 06:36] LABS: Hematocrit (blood only) 49.1 % (42-52); Hemoglobin 16.4 g/dL (14.0-18.0); Mean Corpuscular Hemoglobin 32.6 pg (25-34); Mean Corpuscular Hgb Conc 33.4 g/dL (32-36); Mean Corpuscular Volume 97.6 fL (80-100); Platelet Count 160 K/uL (130-400); RDW Coefficient of Variation 14.3 % (11.5-14.5); RDW Standard Deviation 50.5 fL (36.4-46.3); Red Blood Count 5.03 M/uL (4.7-6.1); White Blood Count 10.42 K/uL (4.8-10.8)
[2019-12-26 07:06] LABS: BUN Creatinine Ratio 17.1 (10-20); Calcium 9.5 mg/dl (8.5-10.1); Creatinine Clr Calc Pharmacy 66.9 ml/min; Est GFR (African American) 95.4; Est GFR (Non-African American) 82.3; Potassium 3.9 mmol/L (3.5-5.1)
[2019-12-26] MEDS: Albuterol HFA 8 GM Inhaler (Combivent Respimat P&T Subs) INH SCH ×4 (07:38→19:30)
[2019-12-26] MEDS: Ipratropium HFA Inhaler (Combivent Respimat P&T Subs) INH SCH ×4 (07:38→19:30)
[2019-12-26] MEDS: ISOSORBIDE MONO EXTENDED REL 30 MG TABCR PO SCH (10:22)
[2019-12-26] MEDS: MULTIVITAMIN TAB PO SCH (10:22)
[2019-12-26] MEDS: CLOPIDOGREL BISULFATE 75 MG TAB PO SCH (10:22)
[2019-12-26] MEDS: CALCIUM 600MG + VIT D 400 IU TAB PO SCH (10:23)
[2019-12-26] MEDS: PROPRANOLOL HCL 20 MG TAB PO SCH ×3 (10:23→21:03)
[2019-12-26] MEDS: AMOXICILLIN/CLAVULANATE 875 MG TAB PO SCH ×2 (10:23→17:39)
[2019-12-26] MEDS: CITALOPRAM 40 MG TAB PO SCH (10:23)
[2019-12-26] MEDS: DOXYCYCLINE HYCLATE 100 MG CAP PO SCH ×2 (10:23→21:04)
--- NOTE | 2019-12-26 10:53 | Hospitalist Progress Note ---
Date of Service December 26, 2019 Assessment & Plan (1) Acute respiratory failure: (2) Leukocytosis: (3) Shortness of breath: SOB, increased cough, choking episode Required NIV on admission per Admitting physician but no documented desaturation CXR reported cardiomegaly with pulm vascular congestion, costophrenic angle blunting and hypoinflation BNP 62 SOB, cough likely due to aspiration pneumonitis based on reported history, XR findings and leukocytosis Heart failure ruled out CT PE negative for PE, showed some right basilar atelectasis Leukocytosis resolving, now WBC ~10k Changed antibiotics to augmentin and doxycycline Continue Incentive spirometry 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 Patient counselled again on diet consistency to avoid aspiration (4) CAD (coronary artery disease): (5) Stented coronary artery: Continue statin, home meds (6) HTN (hypertension): Cont imdur, propranolol (7) Dyslipidemia: Continue statin (8) Hypothyroidism: Continue levothyroxine (9) Depression: Continue citalopram PT recommend rehab. Patient is reluctant about this. I discussed this extensively with him about the benefits He stated he will think about it. CM informed and she will submit for insurance auth and follow up with patient Admission and Anticipated Discharge Date Admission Date: December 23, 2019 Subjective Pt reports feeling much better since admission. Discussed rehab and pt strongly prefers to be discharged home with home health. Currently denies any fever, chills, chest pain, shortness of breath. He is using suppl. O2. per CM pt is supposed to use suppl. O2 at all times as outpt. Will give script for 2L continuous. Review of Systems Review of Systems: All systems reviewed & are unremarkable except as noted in HPI & below Constitutional: no fever and no chills Respiratory: + dyspnea (much improved); no cough Cardiovascular: no chest pain and no palpitations Gastrointestinal: no abdominal pain, no nausea and no vomiting Physical Exam Physical Exam: Constitutional: + well hydrated; no acute distress Eyes: PERRL, EOMI, conjunctivae normal, anicteric sclerae Respiratory: normal respiratory effort; no respiratory distress Auscultation: no crackles and no rales Cardiovascular: Rate/Rhythm: regular rate and regular rhythm Extremities: no pedal edema S1 S2 Gastrointestinal (Abdomen): normal bowel sounds, soft, nontender : Ibrahim catheter with clear yellow urine and blood tinge Neurologic: PERRL, EOMI, no face palsy, no dysarthria +Tremors, moves all extremities, ambulates w/ walker Psychiatric: A+Ox3, euthymic affect Results & Data Results & Data ([facility]) Vital Signs (Past 12 Hours) Vital Signs Temp Pulse Pulse Resp BP Pulse Ox 12/26/19 07:43 37.0 C 65 19 130/73 90 12/26/19 07:38 64 16 91 12/26/19 04:23 36.6 C 60 20 130/85 92 12/25/19 23:46 36.6 C 60 20 127/73 90 12/25/19 23:00 61 Laboratory Results 12/26/19 12/26/19 Range/Units 06:13 06:13 WBC 10.42 (4.8-10.8) K/uL RBC 5.03 (4.7-6.1) M/uL Hgb 16.4 (14.0-18.0) g/dL Hct 49.1 (42-52) % MCV 97.6 (80-100) fL MCH 32.6 (25-34) pg MCHC 33.4 (32-36) g/dL RDW Std Deviation 50.5 H (36.4-46.3) fL RDW Coeff of Mannie 14.3 (11.5-14.5) % Plt Count 160 (130-400) K/uL MPV 10.0 (7.4-10.4) fL Sodium 138 (136-145) mmol/L Potassium 3.9 (3.5-5.1) mmol/L Chloride 103 (98-107) mmol/L Carbon Dioxide 32 (21-32) mmol/L Anion Gap 3.0 (3-11) BUN 15 (7-18) mg/dl Creatinine 0.88 (0.6-1.4) mg/dl Est Cr Clr Drug Dosing 66.9 ml/min Est GFR ( Amer) 95.4 Est GFR (Non-Af Amer) 82.3 BUN/Creatinine Ratio 17.1 (10-20) Glucose 95 (70-99) mg/dl Calcium 9.5 (8.5-10.1) mg/dl Medications Administered Current Inpatient Medications Acetaminophen (Acetaminophen 325 Mg Tab) 650 mg PO Q4H PRN PRN Reason: Pain or Fever Stop: 01/22/20 04:21 Albuterol (Albuterol Hfa 8 Gm Inhaler (Combivent Respimat P&T Subs)) 1 puffs INH QIDR [facility] Stop: 01/23/20 14:59 Last Admin: 12/26/19 07:38 Dose: 1 puffs Documented by: Amoxicillin/Clavulanate Potassium (Amoxicillin/Clavulanate 875 Mg Tab) [facility] [place] Stop: 12/28/19 16:59 Last Admin: 12/26/19 10:23 Dose: 1 tab Documented by: Citalopram Hydrobromide (Citalopram 40 Mg Tab) 40 mg PO [facility] Stop: 01/22/20 08:59 Last Admin: 12/26/19 10:23 Dose: 40 mg Documented by: Clopidogrel Bisulfate (Clopidogrel Bisulfate 75 Mg Tab) 75 mg PO [facility] Stop: 01/22/20 08:59 Last Admin: 12/26/19 10:22 Dose: 75 mg Documented by: Doxycycline Hyclate (Doxycycline Hyclate 100 Mg Cap) 100 mg PO BID [facility] Stop: 12/30/19 04:21 Last Admin: 12/26/19 10:23 Dose: 100 mg Documented by: Heparin Sodium (Porcine) (Heparin Sod 5,000 Unit/0.5 Ml Vial) 5,000 units SQ Q8 [facility] Stop: 01/22/20 05:59 Last Admin: 12/26/19 05:30 Dose: 5,000 units Documented by: Furosemide 40 mg/ Syringe 4 mls @ 4 mls/min IV [facility] Stop: 01/22/20 09:29 Last Admin: 12/23/19 09:35 Dose: 4 mls/min Documented by: Ipratropium [place] (Ipratropium [place] Neb Soln 0.02% 2.5 Ml Vial) 0.5 mg INH Q2H PRN PRN Reason: Shortness Of Breath Or Wheezing Stop: 01/22/20 04:42 Ipratropium [place] (Ipratropium Hfa Inhaler (Combivent Respimat P&T Subs)) 1 puffs INH QIDR [facility] Stop: 01/23/20 14:59 Last Admin: 12/26/19 07:38 Dose: 1 puffs Documented by: Isosorbide Mononitrate (Isosorbide [place] Extended Rel 30 Mg Tabcr) 30 mg PO QAM [facility] Stop: 01/22/20 08:59 Last Admin: 12/26/19 10:22 Dose: 30 mg Documented by: Levalbuterol HCl (Levalbuterol 1.25mg/0.5ml Neb) 1.25 mg INH Q2H PRN PRN Reason: Shortness Of Breath Or Wheezing Stop: 01/22/20 04:41 Levothyroxine Sodium (Levothyroxine Sodium 100 Mcg Tablet) 100 mcg PO DAILYBB [facility] Stop: 01/22/20 06:29 Last Admin: 12/26/19 05:30 Dose: 100 mcg Documented by: Multivitamins (Multivitamin Tab) 1 tab PO QAM [facility] Stop: 01/22/20 08:59 Last Admin: 12/26/19 10:22 Dose: 1 tab Documented by: Multivitamins/Minerals (Calcium 600mg + Vit D 400 Iu Tab) 1 tab PO DAILY [facility] Stop: 01/22/20 08:59 Last Admin: 12/26/19 10:23 Dose: 1 tab Documented by: Nitroglycerin (Nitroglycerin Sl 0.4 Mg/Tab Tab) 0.4 mg SL UD PRN PRN Reason: Chest Pain Stop: 01/22/20 04:21 Propranolol HCl (Propranolol Hcl 20 Mg Tab) 20 mg PO TID [facility] Stop: 01/22/20 08:59 Last Admin: 12/26/19 10:23 Dose: 20 mg Documented by: Simvastatin (Simvastatin 10 Mg Tab) 10 mg PO HS [facility] Stop: 01/22/20 20:59 Last Admin: 12/25/19 21:20 Dose: 10 mg Documented by: (1) Acute respiratory failure Respiratory failure complication: hypoxia Qualified Code(s): J96.01 - Acute respiratory failure with hypoxia
[2019-12-26] MEDS: SIMVASTATIN 10 MG TAB PO SCH (21:54)
[2019-12-27] MEDS: LEVOTHYROXINE SODIUM 100 MCG TABLET PO SCH (05:58)
[2019-12-27] MEDS: HEPARIN SOD 5,000 UNIT/0.5 ML VIAL SQ SCH ×2 (05:58→15:20)
[2019-12-27 06:19] LABS: Hemoglobin 17.3 g/dL (14.0-18.0); Mean Corpuscular Hemoglobin 32.9 pg (25-34); Mean Corpuscular Hgb Conc 33.9 g/dL (32-36); Mean Platelet Volume 10.2 fL (7.4-10.4); Platelet Count 169 K/uL (130-400); RDW Standard Deviation 49.6 fL (36.4-46.3); Red Blood Count 5.26 M/uL (4.7-6.1); White Blood Count 10.89 K/uL (4.8-10.8)
[2019-12-27 06:50] LABS: BUN Creatinine Ratio 14.7 (10-20); Calcium 9.6 mg/dl (8.5-10.1); Creatinine Clr Calc Pharmacy 61.5 ml/min; Est GFR (African American) 88.5; Est GFR (Non-African American) 76.4; Magnesium 2.1 mg/dl (1.8-2.4)
[2019-12-27] MEDS: Ipratropium HFA Inhaler (Combivent Respimat P&T Subs) INH SCH ×3 (07:30→15:16)
[2019-12-27] MEDS: Albuterol HFA 8 GM Inhaler (Combivent Respimat P&T Subs) INH SCH ×3 (07:30→15:16)
--- NOTE | 2019-12-27 09:23 | Hospitalist Progress Note ---
Date of Service December 27, 2019 Assessment & Plan (1) Acute respiratory failure: (2) Leukocytosis: (3) Shortness of breath: SOB, increased cough, choking episode Required NIV on admission per Admitting physician but no documented desaturation CXR reported cardiomegaly with pulm vascular congestion, costophrenic angle blunting and hypoinflation BNP 62 SOB, cough likely due to aspiration pneumonitis based on reported history, XR findings and leukocytosis Heart failure ruled out CT PE negative for PE, showed some right basilar atelectasis Leukocytosis resolving, now WBC ~10k Changed antibiotics to augmentin and doxycycline will finish Augmentin as outpt Continue Incentive spirometry 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 Patient counselled again on diet consistency to avoid aspiration (4) CAD (coronary artery disease): (5) Stented coronary artery: Continue statin, home meds (6) HTN (hypertension): Cont imdur, propranolol (7) Dyslipidemia: Continue statin (8) Hypothyroidism: Continue levothyroxine (9) Depression: Continue citalopram PT recommend rehab. Patient is reluctant about this. I discussed this extensively with him about the benefits Doing better, discussed again with PT today, patient regardless insists on going home with home health. Admission and Anticipated Discharge Date Admission Date: December 23, 2019 Subjective Pt reports feeling much better since admission. Discussed rehab and pt strongly prefers to be discharged home with home health. Today he says he is feeling better than yesterday. Discussed with physical th erapist in the room, per their recommendation he is improved from yesterday. Currently denies any fever, chills, chest pain, shortness of breath. He is using suppl. O2. Script for 2L continuous provided. Review of Systems Review of Systems: All systems reviewed & are unremarkable except as noted in HPI & below Constitutional: no fever and no chills Respiratory: no cough and no dyspnea (says much improved) Cardiovascular: no chest pain and no palpitations Gastrointestinal: no abdominal pain, no nausea and no vomiting Physical Exam Physical Exam: Constitutional: + well hydrated; no acute distress Eyes: PERRL, EOMI, conjunctivae normal, anicteric sclerae Respiratory: normal respiratory effort; no respiratory distress Auscultation: no crackles and no rales Cardiovascular: Rate/Rhythm: regular rate and regular rhythm Extremities: no pedal edema S1 S2 Gastrointestinal (Abdomen): normal bowel sounds, soft, nontender : Ibrahim catheter with clear yellow urine and blood tinge Neurologic: PERRL, EOMI, no face palsy, no dysarthria +Tremors, moves all extremities, ambulates w/ walker Psychiatric: A+Ox3, euthymic affect Results & Data Results & Data ([facility]) Vital Signs (Past 12 Hours) Vital Signs Temp Pulse Pulse Resp BP Pulse Ox 12/27/19 07:57 36.5 C 61 18 129/78 93 12/27/19 07:34 66 16 95 12/27/19 04:09 36.7 C 62 18 126/75 90 12/26/19 23:26 36.7 C 61 18 126/66 91 Laboratory Results 12/27/19 12/27/19 Range/Units 06:11 06:11 WBC 10.89 H (4.8-10.8) K/uL RBC 5.26 (4.7-6.1) M/uL Hgb 17.3 (14.0-18.0) g/dL Hct 51.0 (42-52) % MCV 97.0 (80-100) fL MCH 32.9 (25-34) pg MCHC 33.9 (32-36) g/dL RDW Std Deviation 49.6 H (36.4-46.3) fL RDW Coeff of Mannie 14.0 (11.5-14.5) % Plt Count 169 (130-400) K/uL MPV 10.2 (7.4-10.4) fL Sodium 137 (136-145) mmol/L Potassium 4.0 (3.5-5.1) mmol/L Chloride 101 (98-107) mmol/L Carbon Dioxide 31 (21-32) mmol/L Anion Gap 5.0 (3-11) BUN 14 (7-18) mg/dl Creatinine 0.95 (0.6-1.4) mg/dl Est Cr Clr Drug Dosing 61.5 ml/min Est GFR ( Amer) 88.5 Est GFR (Non-Af Amer) 76.4 BUN/Creatinine Ratio 14.7 (10-20) Glucose 101 H (70-99) mg/dl Calcium 9.6 (8.5-10.1) mg/dl Magnesium 2.1 (1.8-2.4) mg/dl Medications Administered Current Inpatient Medications Acetaminophen (Acetaminophen 325 Mg Tab) 650 mg PO Q4H PRN PRN Reason: Pain or Fever Stop: 01/22/20 04:21 Albuterol (Albuterol Hfa 8 Gm Inhaler (Combivent Respimat P&T Subs)) 1 puffs INH QIDR [facility] Stop: 01/23/20 14:59 Last Admin: 12/27/19 07:30 Dose: 1 puffs Documented by: Amoxicillin/Clavulanate Potassium (Amoxicillin/Clavulanate 875 Mg Tab) [facility] [place] Stop: 12/28/19 16:59 Last Admin: 12/26/19 17:39 Dose: 1 tab Documented by: Citalopram Hydrobromide (Citalopram 40 Mg Tab) 40 mg PO [facility] Stop: 01/22/20 08:59 Last Admin: 12/26/19 10:23 Dose: 40 mg Documented by: Clopidogrel Bisulfate (Clopidogrel Bisulfate 75 Mg Tab) 75 mg PO [facility] Stop: 01/22/20 08:59 Last Admin: 12/26/19 10:22 Dose: 75 mg Documented by: Doxycycline Hyclate (Doxycycline Hyclate 100 Mg Cap) 100 mg PO BID [facility] Stop: 12/30/19 04:21 Last Admin: 12/26/19 21:04 Dose: 100 mg Documented by: Heparin Sodium (Porcine) (Heparin Sod 5,000 Unit/0.5 Ml Vial) 5,000 units SQ Q8 [facility] Stop: 01/22/20 05:59 Last Admin: 12/27/19 05:58 Dose: 5,000 units Documented by: Furosemide 40 mg/ Syringe 4 mls @ 4 mls/min IV [facility] Stop: 01/22/20 09:29 Last Admin: 12/23/19 09:35 Dose: 4 mls/min Documented by: Ipratropium [place] (Ipratropium [place] Neb Soln 0.02% 2.5 Ml Vial) 0.5 mg INH Q2H PRN PRN Reason: Shortness Of Breath Or Wheezing Stop: 01/22/20 04:42 Ipratropium [place] (Ipratropium Hfa Inhaler (Combivent Respimat P&T Subs)) 1 puffs INH QIDR [facility] Stop: 01/23/20 14:59 Last Admin: 12/27/19 07:30 Dose: 1 puffs Documented by: Isosorbide Mononitrate (Isosorbide [place] Extended Rel 30 Mg Tabcr) 30 mg PO QAM [facility] Stop: 01/22/20 08:59 Last Admin: 12/26/19 10:22 Dose: 30 mg Documented by: Levalbuterol HCl (Levalbuterol 1.25mg/0.5ml Neb) 1.25 mg INH Q2H PRN PRN Reason: Shortness Of Breath Or Wheezing Stop: 01/22/20 04:41 Levothyroxine Sodium (Levothyroxine Sodium 100 Mcg Tablet) 100 mcg PO DAILYBB [facility] Stop: 01/22/20 06:29 Last Admin: 12/27/19 05:58 Dose: 100 mcg Documented by: Multivitamins (Multivitamin Tab) 1 tab PO QAM [facility] Stop: 01/22/20 08:59 Last Admin: 12/26/19 10:22 Dose: 1 tab Documented by: Multivitamins/Minerals (Calcium 600mg + Vit D 400 Iu Tab) 1 tab PO DAILY [facility] Stop: 01/22/20 08:59 Last Admin: 12/26/19 10:23 Dose: 1 tab Documented by: Nitroglycerin (Nitroglycerin Sl 0.4 Mg/Tab Tab) 0.4 mg SL UD PRN PRN Reason: Chest Pain Stop: 01/22/20 04:21 Propranolol HCl (Propranolol Hcl 20 Mg Tab) 20 mg PO TID [facility] Stop: 01/22/20 08:59 Last Admin: 12/26/19 21:03 Dose: 20 mg Documented by: Simvastatin (Simvastatin 10 Mg Tab) 10 mg PO HS [facility] Stop: 01/22/20 20:59 Last Admin: 12/26/19 21:54 Dose: 10 mg Documented by: (1) Acute respiratory failure Respiratory failure complication: hypoxia Qualified Code(s): J96.01 - Acute respiratory failure with hypoxia
[2019-12-27] MEDS: CALCIUM 600MG + VIT D 400 IU TAB PO SCH (09:38)
[2019-12-27] MEDS: AMOXICILLIN/CLAVULANATE 875 MG TAB PO SCH (09:38)
[2019-12-27] MEDS: ISOSORBIDE MONO EXTENDED REL 30 MG TABCR PO SCH (09:38)
[2019-12-27] MEDS: MULTIVITAMIN TAB PO SCH (09:38)
[2019-12-27] MEDS: DOXYCYCLINE HYCLATE 100 MG CAP PO SCH (09:38)
[2019-12-27] MEDS: CITALOPRAM 40 MG TAB PO SCH (09:38)
[2019-12-27] MEDS: PROPRANOLOL HCL 20 MG TAB PO SCH ×2 (09:38→15:20)
[2019-12-27] MEDS: CLOPIDOGREL BISULFATE 75 MG TAB PO SCH (09:38)
[2019-12-27] MEDS ORDERED: ADVANCED PROBIOTIC 1250 MG CAPSULE PO SCH (11:45)
--- NOTE | 2019-12-27 11:59 | Discharge Summary ---
Date of Service December 27, 2019 Admission HPI Per Admitting Provider This is a 79-year-old male with past medical history significant for hypothyroidism, hyperlipidemia, history of congenital anomaly of lung, nocturnal hypoxemia, sleep apnea, uses 4 liters of oxygen while sleeping, history of restrictive lung disease, elevated hemidiaphragm, CAD, hypertension, osteoporosis, depression, spinal stenosis, familial tremors, who lives alone, ambulates with a cane, comes because of shortness of breath. The patient says for the last few days he was not feeling his usual self. Today after dinner he suddenly felt short of breath and tried to go to bed and it got worse. He called his friend and then called 911 and brought in here. Initially, he was placed on CPAP for severe shortness of breath. In the ER, he was switched to BiPAP. Currently, he is feeling better on BiPAP and saturating fine and able to give his history. The patient says that last Tuesday he choked on his steak and he has chronic cough, but it got little worse in the last few days and also he brings up some light yellowish phlegm. Denies any fever, chills. Currently says he has some chest tightness when taking deep breaths and also some abdominal tightness. He is taking Lasix 40 mg daily, but did not take today's dose yet. Denies any exposure to COVID. He says he cooks most of the food himself at home, but once in a while he goes out to eat food. Denies any loss of sense of smell or taste. No headache, no blurred visions, no earache. Has some runny nose for the last 3 months. No sore throat, no nausea, no vomiting, no diarrhea or constipation. He says urine is somewhat dark colored. Has some edema in the lower extremities. He says appetite is okay. Admission Exam Per Admitting Provider GENERAL: The patient is of moderate build, not in acute distress. VITAL SIGNS: Temperature 36.4, pulse 68, respiratory 22, blood pressure 123/80, oxygen 95% on BiPAP. HEENT: Pupils equal, round, and reactive to light. No pallor, no icterus. NECK: No JVD, no neck masses. CARDIOVASCULAR: S1, S2 heard, regular rate and rhythm, no murmur, no gallop. RESPIRATORY SYSTEM: Normal AP diameter. No accessory muscle use. Mild bibasilar crackles. Mild occasional wheezing. ABDOMEN: Soft, bowel sounds present. Umbilical hernia seen. No guarding, no rigidity, mild distention. CENTRAL NERVOUS SYSTEM: Cranial nerves II-XII grossly intact, nonfocal. EXTREMITIES: Bilateral lower extremity edema present, no erythema seen. Principal Diagnosis Aspiration pneumonitis/pneumonia Discharge Exam Constitutional: + well hydrated; no acute distress Eyes: PERRL, EOMI, conjunctivae normal, anicteric sclerae Respiratory: normal respiratory effort; no respiratory distress Auscultation: no crackles and no rales Cardiovascular: Rate/Rhythm: regular rate and regular rhythm Extremities: no pedal edema S1 S2 Gastrointestinal (Abdomen): normal bowel sounds, soft, nontender : Ibrahim catheter with clear yellow urine and blood tinge Neurologic: PERRL, EOMI, no face palsy, no dysarthria +Tremors, moves all extremities, ambulates w/ walker Psychiatric: A+Ox3, euthymic affect Discharge Data Allergies Allergy/AdvReac Type Severity Reaction Status Date / Time grapefruit Allergy Unknown WAS TOLD Verified 12/23/19 01:07 EST NOT TO TAKE No Known Drug Allergies Allergy Unknown . Verified 12/23/19 01:07 EST Consultations 12/23/19 02:27 ED Decision to Admit Stat 12/23/19 04:22 Consult Case Management - Discharge Planning Routine 12/23/19 08:00 Consult Cardiology Routine Ordered Studies 12/23/19 12:07 CT angio chest PE protocol Stat IMPRESSION: 1. Cardiomegaly without acute aortic pathology or evidence of pulmonary thromboembolic disease. 2. Chronic right hemidiaphragmatic elevation with mild subsegmental bibasilar atelectasis. 3. No pleural effusion, adenopathy or airspace consolidation typical for pneumonia. 4. Prior granulomatous disease. 5. Cholelithiasis. Hospital Course (1) Acute respiratory failure: (2) Leukocytosis: (3) Shortness of breath: SOB, increased cough, choking episode Required NIV on admission per Admitting physician but no documented desaturation CXR reported cardiomegaly with pulm vascular congestion, costophrenic angle blunting and hypoinflation BNP 62 SOB, cough likely due to aspiration pneumonitis based on reported history, XR findings and leukocytosis Heart failure ruled out CT PE negative for PE, showed some right basilar atelectasis Leukocytosis resolving, now WBC ~10k Changed antibiotics to augmentin and doxycycline will finish Augmentin as outpt Will be discharged on 2L/min cont. oxygen. Continue Incentive spirometry LPN evaluation noted. Patient counselled again on diet consistency to avoid aspiration (4) CAD (coronary artery disease): (5) Stented coronary artery: Continue statin, home meds (6) HTN (hypertension): Cont imdur, propranolol (7) Dyslipidemia: Continue statin (8) Hypothyroidism: Continue levothyroxine (9) Depression: Continue citalopram PT recommend rehab. Patient is reluctant about this. I discussed this extensively with him about the benefits Doing better, discussed again with PT today, patient regardless insists on going home with home health. Total Time Total Time Spent Total Time Spent (In Minutes): 40 Total Time Includes: Examination of the Patient, Discharge Planning, Medication Reconciliation and Communication With Other Providers Discharge Plan Discharge Items Patient Disposition: Home - Home Health Services Reason For Visit: SOB Discharge Diagnosis: Aspiration pneumonitis/pneumonia Activity: Per Instructions section Activity Comment: Per PT instructions Non-emergency contact: Primary Care Provider Call non-emergency contact if: you have any medication questions Follow-up/Referrals: Fawad Espinal DO [Primary Care Provider] - (Date & Time 12/31/2019 11:20 AM Provider Fawad Espinal DO Department General Internal Medicine [facility] ) Diet: Heart Healthy Addtl Attending Provider Instructions: Mr Starks. You came to the hospital complaining of worsening cough and shortness of breath. You also reported recent choking incident with eating. You were evaluated by speech therapist. Please only eat soft bite sized food as we discussed. Please avoid dry hard foods like steaks to avoid choking/aspiration event. Please complete your antibiotics. Use oxygen at all times during the day, prescription for 2 L/min was provided. Use your night oxygen as previously. Follow up with your primary care doctor, the appointment was scheduled for you for December 30. It was a pleasure taking care of you. Pending Studies at Discharge: No Stand-Alone Forms: My [employer], Smoking Cessation Medications and DC Order Prescriptions: New amoxicillin-pot clavulanate [Augmentin] 875-125 mg Tablet 1 tab PO BIDM 3 Days Qty: 6 RF: 0 Advanced Probiotic 625 mg (10 billion cell) Capsule 2 cap PO DAILY 10 Days Qty: 20 RF: 0 Continued multivitamin Tablet 1 tab PO QAM RF: 0 furosemide 40 mg Tablet See Rx Instructions .ROUTE .COMPLEX PRN (Reason: Edema) RF: 0 citalopram 40 mg Tablet 40 mg PO QAM RF: 0 isosorbide mononitrate 30 mg Tablet Extended Release 24 Hr 30 mg PO QAM RF: 0 clopidogrel [Plavix] 75 mg Tablet 75 mg PO QAM RF: 0 nitroglycerin 0.4 mg Tablet, Sublingual 1 tab Sublingual UD PRN (Reason: Angina) RF: 0 zoledronic [id number]-[id number] [Reclast] 5 mg/100 mL Piggyback 1 dose IV YEARLY RF: 0 levothyroxine 100 mcg Capsule 100 mcg PO QAM RF: 0 Combivent Respimat 20-100 mcg/actuation Mist 1 puff INHALATION QID RF: 0 propranolol 40 mg Tablet 20 mg PO TID RF: 0 calcium carbonate-vitamin D3 [Calcium 600 + D(3)] 600 mg(1,500mg) -400 unit Tablet 1 tab PO DAILY RF: 0 simvastatin 20 mg tablet 10 mg PO HS RF: 0 Discharge Orders: Discharge Order (Routine); Ordered 12/27/19 Ordered By: David Moon Admission Data Admit Date/Time: 12/23/19 03:27 Attending Provider: David Moon Admit Provider: Gian Rodriguez Primary Care Provider: Fawad Espinal Other Providers: Gian Rodriguez ; Salvador Tate ; Fernando Dickinson ; Filemon Ramirez ; Cecilio Strauss ; Marvin Milner ; Job Bravo ; Alexandra Israel ; Ana María Vides ; Maikel Maier ; Bebo Avalos ; [facility] ; Valorie Mcgregor I. ; [facility] ; [facility]
== END 2019-12-27 15:25 | disposition home health service (06) | DRG 189 ==
LOC: ED 01:38 → 2E 03:27 → SUATTDRO 03:27 → 2E 04:10

== ENCOUNTER 2020-07-31 17:10 | Observation (INO) ==
--- NOTE | 2020-07-31 18:21 | Emergency Department Note ---
Impression & Plan Cervical spine fracture, Acute shoulder pain, Fall ED Provider Note NAME: BLANCA MAHONEY AGE: 79 SEX: M : 1940 ARRIVES VIA: Walk-In INFORMANT: Patient ED PROVIDER(S): Antonio Madsne DO CHIEF COMPLAINT: Shoulder pain and head pain HPI: Patient is a 79-year-old male who presents to the ER following mechanical fall this past Tuesday. Patient initially was complaining of neck pain and could not move his neck but that has now all resolved. Denies any headache or change in vision. Pain is all focal in the left shoulder. Did have some upper chest wall pain that has resolved. Denies any chest pain, shortness of breath, nausea, vomiting, or diarrhea. No dysuria, urgency, or frequency. No other exacerbating or remitting factors. ROS: See above HPI for pertinent positives & negatives. A total of 10 systems reviewed and were otherwise negative. PAST MEDICAL HISTORY:See Below PAST SURGICAL HISTORY:See Below FAMILY HISTORY:See Below SOCIAL HISTORY:See Below HOME MEDICATIONS:See Below ALLERGIES:See Below VITALS:See Below PHYSICAL EXAMINATION: GENERAL: Sitting up in bed, alert, well appearing, well nourished, no distress, non-toxic EYE EXAM: normal conjunctiva. PERRL and EOM's grossly intact. OROPHARYNX: no exudate, no erythema, lips, buccal mucosa, and tongue normal and mucous membranes are moist NECK: supple, no nuchal rigidity, no adenopathy, non-tender LUNGS: Clear to auscultation. Normal chest wall mechanics CHEST: Tenderness over left shoulder. HEART: no murmurs, S1 normal and S2 normal ABDOMEN: abdomen soft, non-tender, normo-active bowel sounds, no masses, no rebound or guarding. UPPER EXTREMITIES: upper extremities are grossly normal. Moderate pain with movement of the humeral head. No tenderness over the wrist and forearm elbow distal or mid humerus LOWER EXTREMITIES: No pitting edema. NEURO EXAM: Normal sensorium, cranial nerves II-XII grossly intact, normal speech, no gross weakness of arms, no gross weakness of legs. MEDICAL DECISION MAKING: Patient is a 79-year-old male who presents the ER following a fall last Tuesday. Having severe left shoulder pain and some neck pain. IV was established blood work was obtained. Labs show no significant leukocytosis or anemia. BMP with slightly elevated CO2 at 34. Calcium slightly elevated at 10. LFTs bilirubin was unremarkable. Lipase was normal. Covid was negative.CT of the cervical spine showed C2 fracture and was discussed with orthopedic spine. CT angio of the neck was obtained and showed no involvement of the artery. X-rays of the shoulder were unremarkable. CT head was negative. Patient was having significant difficulty getting up and moving around. Patient would need to get placed in consult we discussed with hospitalist for further evaluation. He was observed in the ER for 6 hours. Patient was placed on nasal cannula as he supposed to wearing 2 L nasal cannula all day. Observation Status: Indication: Medical stability Patient with no pertinent family history, was seen first at 1730 hrs and was necessary in order to determine medical stability and avoid unnecessary admission. Upon reevaluation, 6 hours of observation revealed that the patient should be admitted for placement. Disposition date and time 11:30 PM on 08/01/2019. Triage Nursing notes reviewed. Limited review of prior medical records performed Vital Signs: reviewed and remarkable for no significant abnormalities Differential diagnosis: Differential diagnoses include major intracranial, cervical, spinal, thoracic, abdominal, pelvic and neurologic injury. Fracture, contusion, sprain, strain, laceration, abrasions included as well. ER treatment provided: See below Diagnostics interpreted by me: ECG: none Cardiac Monitoring: An order was placed for continuous cardiac monitoring. The monitor shows a rate of 58 with sinus rhythm. Laboratory studies: As stated above and show below. Imaging studies: CT cervical spine and angio C2 fracture but no involvement of the artery CT of the head was negative X-ray of the left shoulder was negative Chest x-ray unremarkable Consultation(s): Discussed with Dr. Sousa who for further evaluation Procedures: none Critical Care: None Past Med/Surg History Medical History (Updated 07/31/20 @ 23:22 by Antonio Madsen DO) Chronic back pain Chronic obstructive pulmonary disease Depression Familial tremor reason for propranolol GERD (gastroesophageal reflux disease) Hyperlipidemia Hypertension Hypothyroidism Kidney stones Myocardial Infarction 2009 On anticoagulant therapy plavix daily On home oxygen therapy 3L N/C at hs Scoliosis Sleep apnea uses 3L N/C hs SOB (shortness of breath) on exertion with wheezing Tinnitus of both ears Surgical History History of bilateral cataract extraction History of cardiac cath 2009 [place] [facility] [place]--follows with Dr. Ramirez History of colonoscopy History of esophagogastroduodenoscopy (EGD) History of heart artery stent x1 2009[place] [place] of lithotripsy History of open reduction and internal fixation (ORIF) procedure left foot fx/pinky toe fx--hardware in place History of testicular surgery "sac full of blood in testicle drained at 26 yrs old" History of tonsillectomy History of wisdom tooth extraction Hx of right inguinal hernia repair Hx of vasectomy Family History Sister Family history of reaction to anesthesia nausea/vomiting Mother Family history of diabetes mellitus Social History Smoking Status: Never smoker Second Hand Exposure: Yes (work environment); Hx Alcohol Use: No Hx Substance Use: No Preferred Language: Japanese Communication Ability: Effective Pediatric Registered Nurse Required: No Beliefs That Will Affect Care: None marital status: Current Living Situation: Alone How many Children do You have: 1 Feels Safe at Home: Yes Assistive Devices: Oxygen - Continuous and Walker Allergies Allergies Allergy/AdvReac Type Severity Reaction Status Date / Time grapefruit Allergy Unknown WAS TOLD Verified 07/31/20 18:03 NOT TO TAKE No Known Drug Allergies Allergy Unknown . Verified 07/31/20 18:03 Home Meds Home Medications Medication Instructions Recorded Confirmed Combivent Respimat 1 puff INHALATION UD 03/14/18 07/31/20 citalopram 40 mg PO QAM 03/14/18 07/31/20 clopidogrel [Plavix] 75 mg PO QAM 03/14/18 07/31/20 furosemide See Rx Instructions .ROUTE 03/14/18 07/31/20 .COMPLEX PRN isosorbide mononitrate 30 mg PO QAM 03/14/18 07/31/20 levothyroxine 100 mcg PO QAM 03/14/18 07/31/20 multivitamin 1 tab PO QAM 03/14/18 07/31/20 nitroglycerin 1 tab SUBLINGUAL UD PRN 03/14/18 07/31/20 zoledronic [id number] 1 dose IV YEARLY 03/14/18 07/31/20 [Reclast] calcium carbonate-vitamin D3 1 tab PO DAILY 12/23/19 07/31/20 [Calcium 600 + D(3)] simvastatin 10 mg PO HS 12/23/19 07/31/20 propranolol 20 mg PO TID 07/31/20 07/31/20 Results & Data (ED) Vital Signs Vital Signs - 24 hr 07/31/20 17:14 07/31/20 19:33 07/31/20 19:48 Temperature 36.8 C Temperature Source Oral Pulse Rate 62 55 L Pulse Rate [Right Finger] 55 L Pulse Rate from SpO2 Sensor 55 L Pulse Rhythm Pulse Rhythm [Right Finger] Regular Pulse Strength [Right Finger] Normal Respiratory Rate 18 20 15 Respiratory Effort / Characteristics Non-Labored Respiratory Depth Normal Respiratory Pattern Regular Blood Pressure 135/85 120/82 Blood Pressure [Right Arm] 133/85 Blood Pressure Mean 101 94 Blood Pressure Mean [Right Arm] 101 Blood Pressure Position [Right Arm] Lying Pulse Oximetry 90 92 92 Oxygen Delivery Method Room Air Nasal Cannula Oxygen Flow Rate 4 Sepsis Recent Fever Within 48 Hours No Sepsis New/Unexplained Change in Mental Status N/A Sepsis Action Taken by Nursing No Action Required 07/31/20 20:00 07/31/20 20:10 07/31/20 21:22 Temperature Temperature Source Pulse Rate 54 L 60 55 L Pulse Rate [Right Finger] Pulse Rate from SpO2 Sensor 54 L 55 L Pulse Rhythm Regular Pulse Rhythm [Right Finger] Pulse Strength [Right Finger] Respiratory Rate 18 18 17 Respiratory Effort / Characteristics Respiratory Depth Respiratory Pattern Blood Pressure 118/74 126/74 Blood Pressure [Right Arm] Blood Pressure Mean 88 91 Blood Pressure Mean [Right Arm] Blood Pressure Position [Right Arm] Pulse Oximetry 93 94 Oxygen Delivery Method Room Air Oxygen Flow Rate Sepsis Recent Fever Within 48 Hours Sepsis New/Unexplained Change in Mental Status Sepsis Action Taken by Nursing 07/31/20 21:30 Temperature Temperature Source Pulse Rate 54 L Pulse Rate [Right Finger] Pulse Rate from SpO2 Sensor 54 L Pulse Rhythm Pulse Rhythm [Right Finger] Pulse Strength [Right Finger] Respiratory Rate 17 Respiratory Effort / Characteristics Respiratory Depth Respiratory Pattern Blood Pressure 122/72 Blood Pressure [Right Arm] Blood Pressure Mean 88 Blood Pressure Mean [Right Arm] Blood Pressure Position [Right Arm] Pulse Oximetry 94 Oxygen Delivery Method Oxygen Flow Rate Sepsis Recent Fever Within 48 Hours Sepsis New/Unexplained Change in Mental Status Sepsis Action Taken by Nursing Laboratory Data Result diagrams: 07/31/20 20:20 07/31/20 20:20 Lab Results 0607/31/20 07/31/20 Range/Units 20:20 20:20 20:25 WBC 10.19 (4.8-10.8) K/uL RBC 4.73 (4.7-6.1) M/uL Hgb 15.2 (14.0-18.0) g/dL Hct 45.2 (42-52) % MCV 95.6 (80-100) fL MCH 32.1 (25-34) pg MCHC 33.6 (32-36) g/dL RDW Std Deviation 50.0 H (36.4-46.3) fL RDW Coeff of Mannie 14.2 (11.5-14.5) % Plt Count 182 (130-400) K/uL MPV 10.4 (7.4-10.4) fL Immature Gran % (Auto) 0.7 % Neut % (Auto) 61.7 % Lymph % (Auto) 23.9 % [place] % (Auto) 10.0 % Eos % (Auto) 3.4 % Baso % (Auto) 0.3 % Neut # (Auto) 6.28 (1.4-6.5) K/uL Lymph # (Auto) 2.44 (1.2-3.4) K/uL [place] # (Auto) 1.02 H (0.11-0.59) K/uL Eos # (Auto) 0.35 (0-0.5) K/uL Baso # (Auto) 0.03 (0-0.2) K/uL Immature Gran # (Auto) 0.07 H (0.00-0.02) K/uL Sodium 142 (136-145) mmol/L Potassium 4.2 (3.5-5.1) mmol/L Chloride 105 (98-107) mmol/L Carbon Dioxide 34 H (21-32) mmol/L Anion Gap 3.0 (3-11) BUN 13 (7-18) mg/dl Creatinine 1.03 (0.6-1.4) mg/dl Est Cr Clr Drug Dosing 58.1 ml/min Est GFR ( Amer) 80.3 ml/min Est GFR (Non-Af Amer) 69.3 ml/min BUN/Creatinine Ratio 12.1 (10-20) Glucose 95 (70-99) mg/dl Calcium 10.2 H (8.5-10.1) mg/dl Total Bilirubin 0.4 (0.2-1) mg/dl AST 16 (15-37) U/L ALT 21 (12-78) U/L Alkaline Phosphatase 95 (45-117) U/L Total Protein 7.0 (6.4-8.2) gm/dl Albumin 3.5 (3.4-5.0) gm/dl Globulin 3.5 (2.5-4.0) gm/dl Albumin/Globulin Ratio 1.0 (0.9-2) Lipase 266 (73-393) U/L COVID-19 Eval Order Covid19 at [facility] SARS-CoV-2 (PCR) (Negative) 07/31/20 Range/Units 20:25 WBC (4.8-10.8) K/uL RBC (4.7-6.1) M/uL Hgb (14.0-18.0) g/dL Hct (42-52) % MCV (80-100) fL MCH (25-34) pg MCHC (32-36) g/dL RDW Std Deviation (36.4-46.3) fL RDW Coeff of Mannie (11.5-14.5) % Plt Count (130-400) K/uL MPV (7.4-10.4) fL Immature Gran % (Auto) % Neut % (Auto) % Lymph % (Auto) % [place] % (Auto) % Eos % (Auto) % Baso % (Auto) % Neut # (Auto) (1.4-6.5) K/uL Lymph # (Auto) (1.2-3.4) K/uL [place] # (Auto) (0.11-0.59) K/uL Eos # (Auto) (0-0.5) K/uL Baso # (Auto) (0-0.2) K/uL Immature Gran # (Auto) (0.00-0.02) K/uL Sodium (136-145) mmol/L Potassium (3.5-5.1) mmol/L Chloride (98-107) mmol/L Carbon Dioxide (21-32) mmol/L Anion Gap (3-11) BUN (7-18) mg/dl Creatinine (0.6-1.4) mg/dl Est Cr Clr Drug Dosing ml/min Est GFR ( Amer) ml/min Est GFR (Non-Af Amer) ml/min BUN/Creatinine Ratio (10-20) Glucose (70-99) mg/dl Calcium (8.5-10.1) mg/dl Total Bilirubin (0.2-1) mg/dl AST (15-37) U/L ALT (12-78) U/L Alkaline Phosphatase (45-117) U/L Total Protein (6.4-8.2) gm/dl Albumin (3.4-5.0) gm/dl Globulin (2.5-4.0) gm/dl Albumin/Globulin Ratio (0.9-2) Lipase (73-393) U/L COVID-19 Eval Order SARS-CoV-2 (PCR) NEGATIVE (Negative) Administered Medications Discontinued Medications Ioversol (Optiray 350 500ml) 112 ml IV ONCE ONE Stop: 07/31/20 21:06 Last Admin: 07/31/20 21:07 Dose: 112 ml Documented by: [id number] Morphine Sulfate (Morphine Sulfate 4 Mg/Ml 1 Ml Carp\\Vial) 4 mg IV NOW STA Stop: 07/31/20 20:43 Last Admin: 07/31/20 21:54 Dose: 4 mg Documented by: [id number] Imaging Data Radiologist's Impression: Cervical Spine CT 07/31/20 18:03 CT OF THE CERVICAL SPINE CLINICAL HISTORY: Neck pain status post trauma COMPARISON STUDY: 10/05/2018 CT DOSE: 480.92 mGycm TECHNIQUE: CT scan of the cervical spine was performed from the skull base to the thoracic inlet. Images are reviewed in the axial, sagittal, and coronal planes. IV contrast was not administered for this examination. A dose lowering technique was utilized adhering to the principles of ALARA. FINDINGS: There are paranasal sinus inflammatory changes. The visualized portions of the lung apices reveal no evidence of pneumothorax. There is a subtle nondisplaced hairline fracture through the superior aspect of the left inferior C2 articulating facet There are multilevel degenerative changes IMPRESSION: 1. Subtle nondisplaced hairline fracture through the superior aspect of the left inferior C2 articulating facet ACT 112: Negative or not required by law. Electronically signed by: Wolfgang Rucker M.D. 07/31/2020 7:40 PM Chest X-Ray 07/31/20 18:03 XR chest 1V portable CLINICAL HISTORY: Pain status post trauma COMPARISON STUDY: 12/23/2019 FINDINGS: There is a prominent scoliosis. The heart is mildly enlarged. There is aortic tortuosity. There is elevation of interstitium consistent with mild pulmonary vascular congestion/fluid overload. There is a calcified right midlung zone granuloma. Trace pleural effusions are suspected. There is no pneumothorax.[A left suprahilar density while nonspecific likely represents a summation with vascular markings and riba IMPRESSION: 1. Cardiomegaly and radiographic evidence of mild congestive failure/fluid overload with suspected trace pleural effusions 2. Prominent scoliosis 3. No pneumothorax identified ACT 112: Negative or not required by law. Electronically signed by: Wolfgang Rucker M.D. 07/31/2020 6:[address] 07/31/20 18:03 CT head/brain wo con CLINICAL HISTORY: Headache status post head trauma COMPARISON STUDY: 10/05/2018 TECHNIQUE: Axial CT of the brain is performed from the vertex to the skull base. IV contrast was not administered for this examination. A dose lowering technique was utilized adhering to the principles of ALARA. CT DOSE: 2071.62 mGycm FINDINGS: No intra or extra-axial mass lesions are visualized. There is no CT evidence of acute cortical infarction. There is no evidence of midline shift. There is no acute hemorrhage. No calvarial fractures are visualized. There are moderate white matter hypodensities likely on a small vessel basis. There is no evidence of pathologic ventricular dilatation. There are trace bilateral maxillary sinus air-fluid levels. There is opacif ication sphenoid sinus. There are multiple opacified ethmoid air cells. IMPRESSION: 1. No acute intracranial findings 2. Paranasal sinus inflammatory changes. ACT 112: Negative or not required by law. Electronically signed by: Wolfgang Rucker M.D. 07/31/2020 7:39 PM Shoulder X-Ray 07/31/20 18:03 XR shoulder LT min 2V routine CLINICAL HISTORY: Left shoulder pain status post trauma COMPARISON: None. DISCUSSION: No acute fractures or dislocations are visualized. Degenerative changes are present within the glenohumeral joint. There is mild narrowing of the humeral acromial distance raises the possibility of chronic rotator cuff degeneration. IMPRESSION: 1. Degenerative change 2. No acute fractures or dislocations identified ACT 112: Negative or not required by law. Electronically signed by: Wolfgang Rucker M.D. 07/31/2020 6:30 PM Discharge Plan Visit Data Chief Complaint: Shoulder Pain Stated Complaint: SHOULDER PAIN ED Provider: Antonio Madsen Discharge Problem: Cervical spine fracture, Acute shoulder pain, Fall Forms Stand Alone Forms: My [facility] Prescriptions Prescriptions: No Action multivitamin Tablet 1 tab PO QAM RF: 0 furosemide 40 mg Tablet See Rx Instructions .ROUTE .COMPLEX PRN (Reason: Edema) RF: 0 citalopram 40 mg Tablet 40 mg PO QAM RF: 0 isosorbide mononitrate 30 mg Tablet Extended Release 24 Hr 30 mg PO QAM RF: 0 clopidogrel [Plavix] 75 mg Tablet 75 mg PO QAM RF: 0 nitroglycerin 0.4 mg Tablet, Sublingual 1 tab Sublingual UD PRN (Reason: Angina) RF: 0 zoledronic jdqr-[id number]-bnsky [Reclast] 5 mg/100 mL Piggyback 1 dose IV YEARLY RF: 0 levothyroxine 100 mcg Capsule 100 mcg PO QAM RF: 0 Combivent Respimat 20-100 mcg/actuation Mist 1 puff INHALATION UD RF: 0 calcium carbonate-vitamin D3 [Calcium 600 + D(3)] 600 mg(1,500mg) -400 unit Tablet 1 tab PO DAILY RF: 0 simvastatin 20 mg tablet 10 mg PO HS RF: 0 propranolol 20 mg tablet 20 mg PO TID RF: 0 Discharge Problem: Cervical spine fracture Qualifiers: Encounter type: initial encounter Cervical vertebra fracture level: C2 Fracture type: closed Fracture morphology: unspecified fracture morphology Fracture alignment: nondisplaced Qualified Code(s): S12.101A - Unspecified nondisplaced fracture of second cervical vertebra, initial encounter for closed fracture Acute shoulder pain Qualifiers: Laterality: left Qualified Code(s): M25.512 - Pain in left shoulder Fall Qualifiers: Encounter type: initial encounter Qualified Code(s): W19.XXXA - Unspecified fall, initial encounter
--- NOTE | 2020-07-31 18:31 | XRay Report ---
XR chest 1V portable CLINICAL HISTORY: Pain status post trauma COMPARISON STUDY: 12/23/2019 FINDINGS: There is a prominent scoliosis. The heart is mildly enlarged. There is aortic tortuosity. T here is elevation of interstitium consistent with mild pulmonary vascular congestion/fluid overload. There is a calcified right midlung zone granuloma. Trace pleural effusions are suspected. There is no pneumothorax.[A left suprahilar density while nonspecific likely represents a summation with vascula r markings and riba IMPRESSION: 1. Cardiomegaly and radiographic evidence of mild congestive failure/fluid overload with suspected tr zev pleural effusions 2. Prominent scoliosis 3. No pneumothorax identified ACT 112: Negative or not required by law. Electronically signed by: Wolfgang Rucker M.D. 07/31/2020 6:29 PM
--- NOTE | 2020-07-31 18:31 | XRay Report ---
XR shoulder LT min 2V routine CLINICAL HISTORY: Left shoulder pain status post trauma COMPARISON: None. DISCUSSION: No acute fractures or dislocations are visualized. Degenerative changes are present withi n the glenohumeral joint. There is mild narrowing of the humeral acromial distance raises the possibi lity of chronic rotator cuff degeneration. IMPRESSION: 1. Degenerative change 2. No acute fractures or dislocations identified ACT 112: Negative or not required by law. Electronically signed by: Wolfgang Rucker M.D. 07/31/2020 6:30 PM
--- NOTE | 2020-07-31 19:41 | CT Scan Report ---
CT head/brain wo con CLINICAL HISTORY: Headache status post head trauma COMPARISON STUDY: 10/05/2018 TECHNIQUE: Axial CT of the brain is performed from the vertex to the skull base. IV contrast was not administered for this examination. A dose lowering technique was utilized adhering to the principles of ALARA. CT DOSE: 2071.62 mGycm FINDINGS: No intra or extra-axial mass lesions are visualized. There is no CT evidence of acute cortical infarc tion. There is no evidence of midline shift. There is no acute hemorrhage. No calvarial fractures ar e visualized. There are moderate white matter hypodensities likely on a small vessel basis. There is no evidence of pathologic ventricular dilatation. There are trace bilateral maxillary sinus air-fluid levels. There is opacification sphenoid sinus. Th ere are multiple opacified ethmoid air cells. IMPRESSION: 1. No acute intracranial findings 2. Paranasal sinus inflammatory changes. ACT 112: Negative or not required by law. Electronically signed by: Wolfgang Rucker M.D. 07/31/2020 7:39 PM
--- NOTE | 2020-07-31 19:41 | CT Scan Report ---
CT OF THE CERVICAL SPINE CLINICAL HISTORY: Neck pain status post trauma COMPARISON STUDY: 10/05/2018 CT DOSE: 480.92 mGycm TECHNIQUE: CT scan of the cervical spine was performed from the skull base to the thoracic inlet. Carolyn ges are reviewed in the axial, sagittal, and coronal planes. IV contrast was not administered for thi s examination. A dose lowering technique was utilized adhering to the principles of ALARA. FINDINGS: There are paranasal sinus inflammatory changes. The visualized portions of the lung apices reveal no evidence of pneumothorax. There is a subtle nondisplaced hairline fracture through the superior aspect of the left inferior C2 articulating facet There are multilevel degenerative changes IMPRESSION: 1. Subtle nondisplaced hairline fracture through the superior aspect of the left inferior C2 articula ting facet ACT 112: Negative or not required by law. Electronically signed by: Wolfgang Rucker M.D. 07/31/2020 7:40 PM
[2020-07-31] MEDS ORDERED: MoRPHine SULFATE 4 MG/ML 1 ML CARP\\VIAL IV STA (20:42)
[2020-07-31 20:52] LABS: Albumin Level 3.5 gm/dl (3.4-5.0); BUN Creatinine Ratio 12.1 (10-20); Calcium 10.2 mg/dl (8.5-10.1); Creatinine Clr Calc Pharmacy 58.1 ml/min; Est GFR (African American) 80.3 ml/min; Est GFR (Non-African American) 69.3 ml/min; Potassium 4.2 mmol/L (3.5-5.1)
--- NOTE | 2020-07-31 20:54 | Orthopedic Consultation ---
Date of Consultation July 31, 2020 History of Present Illness Reason for Consultation: Please see HPI Requesting Physician: Please see HPI History of Present Illness Reason for Consult: fall, neck pain Patient is seen in consultation from Dr Antonio Madsen for above. This occurred as result of fall from standing height on date: July 25 (6 days walker). Patient was bending forward in the kitchen he fell. He believes he hit his forehead in the process. He has had neck pain since. Patient's pain is focal to midline upper neck. The pain is worse with movements of neck and improved by rest. There is no associated numbness and tingling. There is no subjective weakness. Physical Exam: Appearance: Well kept, normally developed Psych: Alert, normal mood and affect Eyes: Anicteric Cardiovascular: No lower extremity edema, extremities warm Respiratory: Breathing unlabored Skin: no rashes Musculoskeletal: grossly intact motor strength bilateral upper and lower extremities except left upper extremity pain-inhibited secondary to shoulder pain after fall. General tremor (chronic) Neurologic: grossly intact sensation to light touch bilateral upper and lower e xtremities. Reflexes are 2+ Shipley neg Babinski neg No clonus tenderness to palpation around upper mid-cervical spine no tenderness more distal mid-back no step deformity palpable Spine Imaging: CTA cervical spine independently reviewed/interpreted. Findings: no evidence of vertebral artery damage at site of fracture at left C2 transverse foramen radiology report negative for vertebral artery damage as per Dr. Madsen (not populated in EPR at time of this writing) [] CT cervical spine (without contrast) independently reviewed/interpreted. Findings: C2 left lateral mass fracture with minimal displacement, extension into inferior articulating facet and the transverse foramen reported as " FINDINGS: There are paranasal sinus inflammatory changes. The visualized portions of the lung apices reveal no evidence of pneumothorax. There is a subtle nondisplaced hairline fracture through the superior aspect of the left inferior C2 articulating facet There are multilevel degenerative changes IMPRESSION: 1. Subtle nondisplaced hairline fracture through the superior aspect of the left inferior C2 articulating facet " Assessment/Plan: Patient with below presentation and diagnosis. Discussed diagnosis, natural history, treatment recommendations based on best available evidence Presentation in keeping with acute stable C2 lateral mass fracture 6 days ago with extension into transverse foramen with no evidence of injury to vertebral artery Recommend - Barry collar at all times - follow-up 2 weeks for repeat assessment patient to call my office at [phone] to schedule appointment Thank you for allowing me to participate in the care of this patient, Neva Agudelo MD Spine Surgeon [facility] Orthopedics Allergies Allergy/AdvReac Type Severity Reaction Status Date / Time grapefruit Allergy Unknown WAS TOLD Verified 07/31/20 18:03 NOT TO TAKE No Known Drug Allergies Allergy Unknown . Verified 07/31/20 18:03 Home Medications Medication Instructions Recorded Confirmed Type Combivent Respimat 1 puff INHALATION UD 03/14/18 07/31/20 History citalopram 40 mg PO QAM 03/14/18 07/31/20 History clopidogrel [Plavix] 75 mg PO QAM 03/14/18 07/31/20 History furosemide See Rx Instructions .ROUTE 03/14/18 07/31/20 History .COMPLEX PRN isosorbide mononitrate 30 mg PO QAM 03/14/18 07/31/20 History levothyroxine 100 mcg PO QAM 03/14/18 07/31/20 History multivitamin 1 tab PO QAM 03/14/18 07/31/20 History nitroglycerin 1 tab SUBLINGUAL UD PRN 03/14/18 07/31/20 History zoledronic dvdc-apzyoruw-wmnar 1 dose IV YEARLY 03/14/18 07/31/20 History [Reclast] calcium carbonate-vitamin D3 1 tab PO DAILY 12/23/19 07/31/20 History [Calcium 600 + D(3)] simvastatin 10 mg PO HS 12/23/19 07/31/20 History propranolol 20 mg PO TID 07/31/20 07/31/20 History Patient History Medical History (Updated 07/31/20 @ 23:22 by Antonio Madsen DO) Chronic back pain Chronic obstructive pulmonary disease Depression Familial tremor reason for propranolol GERD (gastroesophageal reflux disease) Hyperlipidemia Hypertension Hypothyroidism Kidney stones Myocardial Infarction 2009 On anticoagulant therapy plavix daily On home oxygen therapy 3L N/C at hs Scoliosis Sleep apnea uses 3L N/C hs SOB (shortness of breath) on exertion with wheezing Tinnitus of both ears Surgical History History of bilateral cataract extraction History of cardiac cath 2009 @ [facility] [place] with 1 stent--follows with Dr. Ramirez History of colonoscopy History of esophagogastroduodenoscopy (EGD) History of heart artery stent x1 2010--[facility] [place] History of lithotripsy History of open reduction and internal fixation (ORIF) procedure left foot fx/pinky toe fx--hardware in place History of testicular surgery "sac full of blood in testicle drained at 26 yrs old" History of tonsillectomy History of wisdom tooth extraction Hx of right inguinal hernia repair Hx of vasectomy Family History Sister Family history of reaction to anesthesia nausea/vomiting Mother Family history of diabetes mellitus Social History Smoking Status: Never smoker Second Hand Exposure: Yes (work environment); Hx Alcohol Use: No Hx Substance Use: No Preferred Language: Spanish Communication Ability: Effective Weigher And Crusher Required: No Beliefs That Will Affect Care: None marital status: Current Living Situation: Alone How many Children do You have: 1 Feels Safe at Home: Yes Assistive Devices: Oxygen - Continuous and Walker Review of Systems Review of Systems: All systems reviewed & are unremarkable except as noted in HPI & below. Physical Exam Physical Exam: Please see HPI Results & Data ([place]) Vital Signs (Past 12 Hours) Vital Signs Temp Pulse Pulse Resp BP BP Pulse Ox 07/31/20 19:33 55 L 20 133/85 92 07/31/20 17:14 36.8 C 62 18 135/85 90 Laboratory Results . Diagnostic Findings See History of Present Illness (HPI) section above. PG Care Time/CCT Total # of Minutes Spent Total Time Spent with Patient: Total time spent is greater than 50% in coordination of care (as documented) at patient's floor/unit and/or counseling patient: Coding Level of Care Code 21866 Office/Outpt Visit, [facility]
[2020-07-31 20:55] LABS: Bilirubin,Total 0.4 mg/dl (0.2-1); Globulin 3.5 gm/dl (2.5-4.0)
[2020-07-31] MEDS ORDERED: OPTIRAY 350 500ml IV ONE (21:05)
[2020-07-31 22:22] LABS: Basophils # (auto) 0.03 K/uL (0-0.2); Basophils % (auto) 0.3 %; Eosinophils # (auto) 0.35 K/uL (0-0.5); Eosinophils % (auto) 3.4 %; Hematocrit (blood only) 45.2 % (42-52); Hemoglobin 15.2 g/dL (14.0-18.0); Immature Granulocytes # (auto) 0.07 K/uL (0.00-0.02); Immature Granulocytes % (auto) 0.7 %; Lymphocytes # (auto) 2.44 K/uL (1.2-3.4); Lymphocytes % (auto) 23.9 %; Mean Corpuscular Hemoglobin 32.1 pg (25-34); Mean Corpuscular Hgb Conc 33.6 g/dL (32-36); Mean Corpuscular Volume 95.6 fL (80-100); Mean Platelet Volume 10.4 fL (7.4-10.4); Monocytes # (auto) 1.02 K/uL (0.11-0.59); Neutrophils # (auto) 6.28 K/uL (1.4-6.5); Neutrophils % (auto) 61.7 %; Platelet Count 182 K/uL (130-400); RDW Coefficient of Variation 14.2 % (11.5-14.5); Red Blood Count 4.73 M/uL (4.7-6.1); White Blood Count 10.19 K/uL (4.8-10.8)
[2020-08-01] MEDS ORDERED: MoRPHine SULFATE 4 MG/ML 1 ML CARP\\VIAL IV STA (01:28)
[2020-08-01] MEDS ORDERED: POLYETHYLENE (MIRALAX) 17 GM PACK PO PRN (03:19)
[2020-08-01] MEDS ORDERED: IPRATROPIUM BROMIDE/ALBUTEROL respimat INH INH SCH (03:19)
[2020-08-01] MEDS ORDERED: ONDANSETRON INJ 2 MG/ML 2 ML VIAL IV PRN (03:19)
[2020-08-01] MEDS ORDERED: ACETAMINOPHEN 325 MG TAB PO PRN (03:19)
[2020-08-01] MEDS ORDERED: NITROGLYCERIN SL 0.4 MG/TAB TAB SL PRN (03:19)
[2020-08-01] MEDS ORDERED: FUROSEMIDE 20 MG TAB PO PRN (03:35)
--- NOTE | 2020-08-01 04:16 | History and Physical Report ---
DATE OF ADMISSION: 08/01/2020 CHIEF COMPLAINT: Status post fall and C2 subtle fracture. HISTORY OF PRESENT ILLNESS: A 79-year-old male with past medical history significant for hypothyroidism, hyperlipidemia, congenital anomaly of lung, nocturnal hypoxemia, obstructive sleep apnea, restrictive lung disease, elevated hemidiaphragm, history of [place], hypertension, chronic right-sided heart failure, idiopathic scoliosis, senile osteoporosis, history of tremor, depression, abnormality of the gait, who lives alone, on oxygen at home 4 liters. Says he was trying to bend and get something from the floor on last Tuesday when he slipped and fell. He laid on the floor for 15 minutes and finally was able to crawl on his hands and legs and able to sit in a chair. Since then, he has some neck pain. But currently now he has a pain in the left shoulder. He cannot move his left upper extremity much because of pain in his shoulder. This is the reason he came to the hospital. Seen by orthopedics for C2 fracture and placed on [place] collar. CT angio neck was obtained showing no involvement of artery. Other imaging studies, shoulder x-ray and cxr okay. Currently resting comfortably, on neck collar. Denies any headache. Vision is not that great. No earache. He has chronic runny nose. No sore throat, no cough, no fever, no chest pain. Gets sometimes short of breath on exertion. Has some nausea, no vomiting, no abdominal pain. Somewhat constipated. No bloody stools. Normal bladder movements. No rash. Appetite is okay. . ALLERGIES: Grape fruit. No known drug allergies. PAST MEDICAL HISTORY: As mentioned above. PAST SURGICAL HISTORY: Left heart catheterization, colonoscopy, EGDs, lithotripsy, bilateral hernia repair, removal of cataracts. MEDICATIONS: The patient is on calcium carbonate with vitamin D 1 tablet p.o. daily, citalopram 40 mg p.o. a.m., Plavix 75 mg p.o. a.m., Combivent 1 puff inhalation as directed, Lasix as directed, isosorbide mononitrate 30 mg p.o. a.m., levothyroxine 100 mcg p.o. a.m., multivitamin 1 tablet p.o. a.m., nitroglycerin sublingual p.r.n., propranolol 20 mg p.o. t.i.d., simvastatin 10 mg p.o. at bedtime, Reclast 1 dose IV yearly. FAMILY HISTORY: Significant for mother has type 2 diabetes, aunt has cancer. SOCIAL HISTORY: Lives alone. Smoked occasional pipe of cigar socially when he was younger. Alcohol rarely. No drug use. REVIEW OF SYSTEMS: As per HPI. Rest of the review of systems negative. PHYSICAL EXAMINATION: GENERAL: The patient is of moderate build, not in acute distress. VITAL SIGNS: Temperature 36.8, pulse 51, respiratory rate 13, blood pressure 127/71, oxygen 94% on room air. HEENT: Pupils equal, round, reactive to light. Oral mucosa dry. NECK: On neck collar. CARDIOVASCULAR: S1, S2 heard, regular rate and rhythm. No murmur, no gallop. RESPIRATORY SYSTEM: Normal AP diameter. No accessory muscle use. No wheezing, no crackles. ABDOMEN: Soft, bowel sounds present, nontender. No distention. CENTRAL NERVOUS SYSTEM: Cranial nerves II-XII grossly intact. Nonfocal. Power 5/5 in all extremities except he is having painful movements because of pain left upper extremity. EXTREMITIES: No edema, no erythema. LABORATORY DATA: WBC 10.1, hemoglobin 15.2, hematocrit 45.2, platelets 182. Sodium 142, potassium 4.2, chloride 105, bicarbonate 34, BUN 13, creatinine 1.03, serum glucose 95, calcium 10.2, total bilirubin 0.4, AST 16, ALT 21, alkaline phosphatase 95. Lipase 266. SARS-CoV-2 PCR negative. IMAGING DATA: Cervical spine CT, subtle nondisplaced hairline fracture through superior aspect of the left inferior C2 facet. Chest x-ray, cardiomegaly and radiographic evidence of mild congestive failure. Overall, suspect trace pleural effusions. Prominent scoliosis. No pneumothorax identified. CT of the head, no acute intracranial findings. Paranasal sinus inflammatory changes. Shoulder x-ray, degenerative changes, no acute fractures or dislocations identified. CTA of the neck preliminary report, patent bilateral cervical, carotid, and vertebral arteries without significant stenosis, dissection or occlusion; nondisplaced fracture of the left C2 facet through the foramen transversarium. No evidence of arterial injury of pseudoaneurysm of the left vertebral artery. Hypoplastic right vertebral artery. Cervical soft tissues are unremarkable. No soft tissue hematoma. Vascular upper lung and mediastinal structures are unremarkable. ASSESSMENT AND PLAN: This is an 79-year-old male who presents with a fall and C2 fracture. 1. Fall and subtle C2 fracture: Seen by orthopedics, on neck collar. PT and OT, pain control. Follow up in 2 weeks for repeat assessment by orthopedics. May need placement. 2. History of chronic respiratory failure: History of congenital anomaly of lung, severe obstructive sleep apnea, nocturnal hypoxemia, restrictive lung disease, on 4 liters oxygen at nighttime, which he will continue. Continue home inhalers. 3. History of coronary artery disease status post stent to LAD. Imdur, propranolol, Plavix, statin. Currently stable. 4. History of hypertension: On propranolol, Imdur. Monitor the blood pressure. 5. History of hypothyroidism: On Synthroid. 6. History of hyperlipidemia: On statin. 7. History of depression: On citalopram. 8. History of chronic right-sided heart failure: Currently not volume overloaded, Uses Lasix as needed and on Imdur and propranolol. 9. Deep venous thrombosis prophylaxis: Will placed him on sequential compression devices for now. 10. Disposition: Closely monitor in the medical floor. PT and OT. Social service to help with discharge plan as the patient may need placement. Level 1 full code. MTDD
[2020-08-01] MEDS: LEVOTHYROXINE SODIUM 100 MCG TABLET PO SCH (05:54)
[2020-08-01 07:10] LABS: Basophils # (auto) 0.03 K/uL (0-0.2); Basophils % (auto) 0.3 %; Eosinophils # (auto) 0.35 K/uL (0-0.5); Hematocrit (blood only) 48.3 % (42-52); Immature Granulocytes # (auto) 0.05 K/uL (0.00-0.02); Immature Granulocytes % (auto) 0.4 %; Lymphocytes # (auto) 2.52 K/uL (1.2-3.4); Lymphocytes % (auto) 21.6 %; Mean Corpuscular Hemoglobin 31.9 pg (25-34); Mean Corpuscular Hgb Conc 33.1 g/dL (32-36); Mean Corpuscular Volume 96.4 fL (80-100); Mean Platelet Volume 10.2 fL (7.4-10.4); Monocytes # (auto) 1.36 K/uL (0.11-0.59); Monocytes % (auto) 11.7 %; Neutrophils # (auto) 7.33 K/uL (1.4-6.5); Platelet Count 182 K/uL (130-400); RDW Coefficient of Variation 14.6 % (11.5-14.5); RDW Standard Deviation 51.7 fL (36.4-46.3); Red Blood Count 5.01 M/uL (4.7-6.1); White Blood Count 11.64 K/uL (4.8-10.8)
[2020-08-01] MEDS: MoRPHine SULFATE 4 MG/ML 1 ML CARP\\VIAL IV PRN ×2 (07:21→15:12)
--- NOTE | 2020-08-01 07:44 | CT Scan Report ---
NECK CTA HISTORY: neck fracture TECHNIQUE: Multiaxial CT images of the neck were performed following the intravenous administration o f contrast to evaluate the major cervical vessels. Maximum intensity projection images were also obta ined. All measurements were calculated based on NASCET criteria. A dose lowering technique was utili zed adhering to the principles of ALARA. COMPARISON STUDY: Cervical spine CT 07/31/2020. FINDINGS: The aortic arch and proximal great vessels are widely patent. There is no significant sten osis, occlusion, or dissection identified within the bilateral common carotid, internal carotid, or v ertebral arteries. Subtle fracture within the left inferior C2 articulating facet is again noted. IMPRESSION: No significant stenosis, occlusion, or dissection identified within the carotid or vertebral arteries . Nondisplaced left C2 facet fracture is again noted. ACT 112: Negative or not required by law. Electronically signed by: Byron Collazo M.D. 08/01/2020 7:43 AM
[2020-08-01 07:47] LABS: BUN Creatinine Ratio 9.5 (10-20); Calcium 9.6 mg/dl (8.5-10.1); Creatinine Clr Calc Pharmacy 60.4 ml/min; Est GFR (African American) 84.2 ml/min; Est GFR (Non-African American) 72.6 ml/min; Magnesium 2.3 mg/dl (1.8-2.4); Potassium 4.1 mmol/L (3.5-5.1)
[2020-08-01 08:12] LABS: Appearance Urine Clear (Clear); Bacteria Urine Automated Negative (Negative); Bilirubin Urine Negative (Negative); Blood Urine 1+ (Negative); Cast Urine Automated 0 /lpf (0-5); Color Urine Yellow; Epithelial Cell Urine Auto 0-5 /lpf (0-5); Glucose Urine UA Negative (Negative); Ketones Urine Negative (Negative); Leukocyte Esterase Urine Negative (Negative); Nitrite Urine Negative (Negative); Protein Urine Negative (Negative); Urobilinogen Urine Negative (Negative)
[2020-08-01] MEDS: CALCIUM 600MG + VIT D 400 IU TAB PO SCH (09:02)
[2020-08-01] MEDS: PROPRANOLOL HCL 20 MG TAB PO SCH ×3 (09:02→19:47)
[2020-08-01] MEDS: MULTIVITAMIN TAB PO SCH (09:03)
[2020-08-01] MEDS: CLOPIDOGREL BISULFATE 75 MG TAB PO SCH (09:03)
[2020-08-01] MEDS: CITALOPRAM 40 MG TAB PO SCH (09:03)
[2020-08-01] MEDS: ISOSORBIDE MONO EXTENDED REL 30 MG TABCR PO SCH (09:04)
[2020-08-01] MEDS: Albuterol HFA 8 GM Inhaler (Combivent Respimat P&T Subs) INH SCH ×4 (10:39→19:15)
[2020-08-01] MEDS: Ipratropium HFA Inhaler (Combivent Respimat P&T Subs) INH SCH ×4 (10:39→19:14)
--- NOTE | 2020-08-01 15:27 | Communication Note ---
Date of Service: August 01, 2020 79-year-old male with past medical history significant for hypothyroidism, hyperlipidemia, congenital anomaly of lung, nocturnal hypoxemia, obstructive sle ep apnea, restrictive lung disease, elevated hemidiaphragm, history of [place], hypertension, chronic right-sided heart failure, idiopathic scoliosis, senile osteoporosis, history of tremor, depression, abnormality of the gait, who lives alone, on oxygen at home 4 liters who presented with left upper extremity and shoulder pain after falling while trying to pick something from the ground some days before. Evaluated and found to have a subtle C2 fracture Patient seen and examined History as detailed by Dr Rodriguez this morning -C2 Fracture Appears stable Ortho evaluation noted Continue aspirin collar. Patient will follow up with Ortho in the office in 2 weeks. Get PT/OT evaluation Patient will need placement Continue home levothyroxine, statin, citalopram Continue home Lasix, Imdur and propranolol Continue home oxygen. Agree with other plans as detailed in H&P by Dr. Rodriguez this morning
[2020-08-01] MEDS: SIMVASTATIN 10 MG TAB PO SCH (19:46)
[2020-08-02] MEDS: MoRPHine SULFATE 4 MG/ML 1 ML CARP\\VIAL IV PRN ×2 (00:30→21:15)
[2020-08-02] MEDS: LEVOTHYROXINE SODIUM 100 MCG TABLET PO SCH (06:00)
[2020-08-02 06:38] LABS: Hematocrit (blood only) 45.4 % (42-52); Hemoglobin 15.2 g/dL (14.0-18.0); Mean Corpuscular Hemoglobin 31.7 pg (25-34); Mean Corpuscular Hgb Conc 33.5 g/dL (32-36); Mean Corpuscular Volume 94.6 fL (80-100); Mean Platelet Volume 9.9 fL (7.4-10.4); Platelet Count 148 K/uL (130-400); RDW Coefficient of Variation 14.4 % (11.5-14.5); RDW Standard Deviation 49.9 fL (36.4-46.3)
[2020-08-02 06:56] LABS: BUN Creatinine Ratio 11.8 (10-20); Calcium 8.5 mg/dl (8.5-10.1); Est GFR (Non-African American) 79.4 ml/min; Potassium 3.7 mmol/L (3.5-5.1)
[2020-08-02] MEDS: Ipratropium HFA Inhaler (Combivent Respimat P&T Subs) INH SCH ×4 (07:59→19:00)
[2020-08-02] MEDS: Albuterol HFA 8 GM Inhaler (Combivent Respimat P&T Subs) INH SCH ×4 (08:00→19:00)
[2020-08-02] MEDS: CALCIUM 600MG + VIT D 400 IU TAB PO SCH (08:48)
[2020-08-02] MEDS: CLOPIDOGREL BISULFATE 75 MG TAB PO SCH (08:48)
[2020-08-02] MEDS: CITALOPRAM 40 MG TAB PO SCH (08:48)
[2020-08-02] MEDS: ISOSORBIDE MONO EXTENDED REL 30 MG TABCR PO SCH (08:48)
[2020-08-02] MEDS: MULTIVITAMIN TAB PO SCH (08:49)
[2020-08-02] MEDS: PROPRANOLOL HCL 20 MG TAB PO SCH ×3 (08:51→21:14)
--- NOTE | 2020-08-02 13:39 | Hospitalist Progress Note ---
Date of Service August 02, 2020 Assessment & Plan (1) Fall: (2) Acute shoulder pain: (3) Cervical spine fracture: Continue aspen Orthopedic neck collar commendations appreciated. PT/OT evaluation noted manager of digital working on rehab placement Fall precautions (4) HTN (hypertension): Controlled (5) Hypothyroidism: Continue levothyroxine (6) Depression: Continue home citalopram (7) Chronic right-sided heart failure: (8) CAD (coronary artery disease): (9) Stented coronary artery: Continue Plavix, statin, imdur (10) EZEQUIEL (obstructive sleep apnea): On chronic oxygen Continue oxygen supplementation Admission and Anticipated Discharge Date Admission Date: August 01, 2020 Subjective 79-year-old male with past medical history significant for hypothyroidism, h yperlipidemia, congenital anomaly of lung, nocturnal hypoxemia, obstructive sleep apnea, restrictive lung disease, elevated hemidiaphragm, history of [place], hypertension, chronic right-sided heart failure, idiopathic scoliosis, senile osteoporosis, history of tremor, depression, abnormality of the gait, who lives alone, on oxygen at home 4 liters who presented with left upper extremity and shoulder pain after falling while trying to pick something from the ground some days before. Evaluated and found to have a subtle C2 fracture Patient seen and examined. Complains only of pain in left arm especially with activity. Review of Systems Review of Systems: All systems reviewed & are unremarkable except as noted in Subjective Physical Exam Constitutional: + well hydrated; no acute distress Eyes: PERRL, conjunctivae normal, anicteric sclerae ENMT: external ear and nose normal, oropharynx normal Neck: [place] collar on Respiratory: normal respiratory effort, lungs clear to auscultation On nasal oxygen Cardiovascular: Rate/Rhythm: regular rate and regular rhythm S1 S2 Gastrointestinal (Abdomen): normal bowel sounds, soft, nontender, no hepatosplenomegaly Musculoskeletal: No pedal edema Power is 4/5 on LUE across elbow Power is 5/5 on RUE/RLE Neurologic: PERRL, EOMI, accommodation nl, no face palsy, no dysarthria Psychiatric: A+Ox3, euthymic affect Results & Data Results & Data ([facility]) Vital Signs (Past 12 Hours) Vital Signs Temp Pulse Resp BP Pulse Ox 08/02/20 10:52 60 16 92 08/02/20 08:00 54 L 20 93 08/02/20 06:53 36.6 C 56 L 16 121/78 93 Laboratory Results Abnormal lab results 08/02/20 Range/Units 06:14 RDW Std Deviation 49.9 H (36.4-46.3) fL (1) Fall Encounter type: initial encounter Qualified Code(s): W19.XXXA - Unspecified fall, initial encounter (2) Acute shoulder pain Laterality: left Qualified Code(s): M25.512 - Pain in left shoulder (3) Cervical spine fracture Cervical vertebra fracture level: C2 Encounter type: initial encounter Fracture alignment: nondisplaced Fracture morphology: unspecified fracture morphology Fracture type: closed Qualified Code(s): S12.101A - Unspecified nondisplaced fracture of second cervical vertebra, initial encounter for closed fracture
[2020-08-02] MEDS: SIMVASTATIN 10 MG TAB PO SCH (21:14)
[2020-08-03] MEDS: MoRPHine SULFATE 4 MG/ML 1 ML CARP\\VIAL IV PRN (01:19)
[2020-08-03] MEDS: LEVOTHYROXINE SODIUM 100 MCG TABLET PO SCH (05:52)
[2020-08-03] MEDS: Albuterol HFA 8 GM Inhaler (Combivent Respimat P&T Subs) INH SCH ×4 (07:18→19:05)
[2020-08-03] MEDS: Ipratropium HFA Inhaler (Combivent Respimat P&T Subs) INH SCH ×4 (07:18→19:05)
[2020-08-03] MEDS: CLOPIDOGREL BISULFATE 75 MG TAB PO SCH (08:51)
[2020-08-03] MEDS: ISOSORBIDE MONO EXTENDED REL 30 MG TABCR PO SCH (08:51)
[2020-08-03] MEDS: CITALOPRAM 40 MG TAB PO SCH (08:51)
[2020-08-03] MEDS: CALCIUM 600MG + VIT D 400 IU TAB PO SCH (08:51)
[2020-08-03] MEDS: MULTIVITAMIN TAB PO SCH (08:52)
[2020-08-03] MEDS: PROPRANOLOL HCL 20 MG TAB PO SCH ×3 (08:52→22:20)
[2020-08-03] MEDS ORDERED: TAMSULOSIN HCL 0.4 MG CAP PO ONE (11:39)
--- NOTE | 2020-08-03 11:57 | Hospitalist Progress Note ---
Date of Service August 03, 2020 Assessment & Plan (1) Fall: (2) Acute shoulder pain: (3) Cervical spine fracture: Continue aspen Orthopedic neck collar commendations appreciated. 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 Will check urinalysis DVT ppx- lovenox Admission and Anticipated Discharge Date Admission Date: August 01, 2020 Subjective 79-year-old male with past medical history significant for hypothyroidism, hyperlipidemia, congenital anomaly of lung, nocturnal hypoxemia, obstructive sleep apnea, restrictive lung disease, elevated hemidiaphragm, history of [place], hypertension, chronic right-sided heart failure, idiopathic scoliosis, senile osteoporosis, history of tremor, depression, abnormality of the gait, who lives alone, on oxygen at home 4 liters who presented with left upper extremity and shoulder pain after falling while trying to pick something from the ground some days before. Evaluated and found to have a subtle C2 fracture Patient seen and examined. Reports left shoulder and arm pain is controlled. Reports urinary frequency. Stated that this is been going on for some time but seem to have gotten worse. Also reports hesitancy and occasional feeling of incomplete emptying. Said this has been going on for a while Denies any dysuria, hematuria Review of Systems Review of Systems: All systems reviewed & are unremarkable except as noted in Subjective Physical Exam Constitutional: + well hydrated; no acute distress Eyes: PERRL, conjunctivae normal, anicteric sclerae ENMT: external ear and nose normal, oropharynx normal Neck: [place] neck collar Respiratory: normal respiratory effort, lungs clear to auscultation Cardiovascular: Rate/Rhythm: regular rate and regular rhythm Gastrointestinal (Abdomen): normal bowel sounds, soft, nontender, no hepatosplenomegaly Musculoskeletal: Power is 4/5 on LUE across elbow Power is 5/5 on RUE/RLE Neurologic: PERRL, EOMI, accommodation nl, no face palsy, no dysarthria Psychiatric: A+Ox3, euthymic affect Genitourinary: no CVA tenderness Results & Data Results & Data ([facility]) Vital Signs (Past 12 Hours) Vital Signs Temp Pulse Resp BP Pulse Ox 08/03/20 10:39 58 L 18 93 08/03/20 07:27 36.8 C 56 L 19 127/80 92 08/03/20 07:19 56 L 14 92 (1) Fall Encounter type: initial encounter Qualified Code(s): W19.XXXA - Unspecified fall, initial encounter (2) Acute shoulder pain Laterality: left Qualified Code(s): M25.512 - Pain in left shoulder (3) Cervical spine fracture Cervical vertebra fracture level: C2 Encounter type: initial encounter Fracture alignment: nondisplaced Fracture morphology: unspecified fracture morphology Fracture type: closed Qualified Code(s): S12.101A - Unspecified nondisplaced fracture of second cervical vertebra, initial encounter for closed fracture
[2020-08-03 13:27] LABS: Appearance Urine Clear (Clear); Bacteria Urine Automated Negative (Negative); Bilirubin Urine Negative (Negative); Blood Urine Trace (Negative); Color Urine Yellow; Glucose Urine UA Negative (Negative); Ketones Urine Negative (Negative); Leukocyte Esterase Urine Negative (Negative); Nitrite Urine Negative (Negative); Protein Urine Trace (Negative); RBC Urine Automated 0-4 /hpf (0-4); Specific Gravity Urine 1.012 (1.000-1.030); Urobilinogen Urine Negative (Negative)
[2020-08-03] MEDS: traMADol HCL 50 MG TABLET PO PRN ×2 (15:01→22:21)
[2020-08-03] MEDS: SIMVASTATIN 10 MG TAB PO SCH (22:21)
[2020-08-04] MEDS: LEVOTHYROXINE SODIUM 100 MCG TABLET PO SCH (06:41)
[2020-08-04] MEDS: Ipratropium HFA Inhaler (Combivent Respimat P&T Subs) INH SCH ×4 (07:18→19:29)
[2020-08-04] MEDS: Albuterol HFA 8 GM Inhaler (Combivent Respimat P&T Subs) INH SCH ×4 (07:18→19:29)
[2020-08-04] MEDS: ENOXAPARIN INJ 40 MG/0.4 ML SYR SQ SCH ×2 (07:45→07:51)
[2020-08-04] MEDS: CALCIUM 600MG + VIT D 400 IU TAB PO SCH (07:46)
[2020-08-04] MEDS: TAMSULOSIN HCL 0.4 MG CAP PO SCH (07:46)
[2020-08-04] MEDS: MULTIVITAMIN TAB PO SCH (07:46)
[2020-08-04] MEDS: PROPRANOLOL HCL 20 MG TAB PO SCH ×3 (07:46→21:52)
[2020-08-04] MEDS: ISOSORBIDE MONO EXTENDED REL 30 MG TABCR PO SCH (07:47)
[2020-08-04] MEDS: CITALOPRAM 40 MG TAB PO SCH (07:47)
[2020-08-04] MEDS: CLOPIDOGREL BISULFATE 75 MG TAB PO SCH (07:47)
[2020-08-04] MEDS: traMADol HCL 50 MG TABLET PO PRN ×3 (08:02→19:21)
--- NOTE | 2020-08-04 13:17 | Hospitalist Progress Note ---
Date of Service August 04, 2020 Assessment & Plan (1) Fall: (2) Acute shoulder pain: (3) Cervical spine fracture: Continue aspen collar Patient needs to follow up with ortho in 2 weeks (Patient to call ortho office at [phone] for appointment) PT/OT evaluation noted manager of change working on rehab placement Fall precautions (4) HTN (hypertension): Continue meds (5) Hypothyroidism: Continue levothyroxine (6) Depression: Continue home citalopram (7) Chronic right-sided heart failure: (8) CAD (coronary artery disease): (9) Stented coronary artery: Continue Plavix, statin, imdur (10) EZEQUIEL (obstructive sleep apnea): On chronic oxygen Continue oxygen supplementation Patient's urinary symptoms suggest possible LUTS ?BPH Has been ongoing for a while Trial of flomax Urinalysis on admission did not suggest UTI. Repeat Urinalysis does not suggest UTI If symptoms persist, patient to follow up with Urology DVT ppx- lovenox Admission and Anticipated Discharge Date Admission Date: August 01, 2020 Subjective 79-year-old male with past medical history significant for hypothyroidism, hyperlipidemia, congenital anomaly of lung, nocturnal hypoxemia, obstructive sleep apnea, restrictive lung disease, elevated hemidiaphragm, history of [place], hypertension, chronic right-sided heart failure, idiopathic scoliosis, senile osteoporosis, history of tremor, depression, abnormality of the gait, who lives alone, on oxygen at home 4 liters who presented with left upper extremity and shoulder pain after falling while trying to pick something from the ground some days before. Evaluated and found to have a subtle C2 fracture Patient seen and examined. Reports left shoulder and arm pain is controlled Has urinary freq, hesitancy, occasional incomplete emptying and dribbling Review of Systems Review of Systems: All systems reviewed & are unremarkable except as noted in Subjective Physical Exam Constitutional: + well hydrated; no acute distress Eyes: PERRL, conjunctivae normal, anicteric sclerae ENMT: external ear and nose normal, oropharynx normal Neck: [place] Collar in place Respiratory: normal respiratory effort, lungs clear to auscultation Cardiovascular: Rate/Rhythm: regular rate and regular rhythm Gastrointestinal (Abdomen): normal bowel sounds, soft, nontender, no hepatosplenomegaly Musculoskeletal: Power is 4/5 on LUE across elbow Power is 5/5 on RUE/RLE Neurologic: PERRL, EOMI, accommodation nl, no face palsy, no dysarthria Psychiatric: A+Ox3, euthymic affect Genitourinary: no CVA tenderness Results & Data Results & Data ([facility]) Vital Signs (Past 12 Hours) Vital Signs Temp Pulse Resp BP Pulse Ox 08/04/20 10:57 60 17 94 08/04/20 08:01 36.5 C 68 18 143/84 H 94 08/04/20 07:18 56 L 18 96 Laboratory Results Abnormal lab results 08/03/20 Range/Units 13:10 Urine Protein Trace H (Negative) Urine Blood Trace H (Negative) U Epithel Cells (Auto) 10-20 H (0-5) /lpf Laboratory Results - last 24 hr 08/03/20 13:10 Urine Color Yellow Urine Appearance Clear Urine pH 7.0 Ur Specific [place] 1.012 Urine Protein Trace H Urine Glucose (UA) Negative Urine Ketones Negative Urine Blood Trace H Urine Nitrite Negative Urine Bilirubin Negative Urine Urobilinogen Negative Ur Leukocyte Esterase Negative Urine WBC (Auto) 1-5 Urine RBC (Auto) 0-4 U Hyaline Cast (Auto) 1-5 U Epithel Cells (Auto) 10-20 H Urine Bacteria (Auto) Negative (1) Fall Encounter type: initial encounter Qualified Code(s): W19.XXXA - Unspecified fall, initial encounter (2) Acute shoulder pain Laterality: left Qualified Code(s): M25.512 - Pain in left shoulder (3) Cervical spine fracture Cervical vertebra fracture level: C2 Encounter type: initial encounter Fracture alignment: nondisplaced Fracture morphology: unspecified fracture morphology Fracture type: closed Qualified Code(s): S12.101A - Unspecified nondisplaced fracture of second cervical vertebra, initial encounter for closed fracture
[2020-08-04] MEDS: SIMVASTATIN 10 MG TAB PO SCH (21:52)
[2020-08-04] MEDS: MoRPHine SULFATE 4 MG/ML 1 ML CARP\\VIAL IV PRN (22:15)
[2020-08-05] MEDS: LEVOTHYROXINE SODIUM 100 MCG TABLET PO SCH (06:02)
[2020-08-05] MEDS: Albuterol HFA 8 GM Inhaler (Combivent Respimat P&T Subs) INH SCH ×4 (07:26→19:19)
[2020-08-05] MEDS: Ipratropium HFA Inhaler (Combivent Respimat P&T Subs) INH SCH ×4 (07:27→19:19)
[2020-08-05] MEDS: ENOXAPARIN INJ 40 MG/0.4 ML SYR SQ SCH (07:43)
[2020-08-05] MEDS: TAMSULOSIN HCL 0.4 MG CAP PO SCH (07:45)
[2020-08-05] MEDS: ISOSORBIDE MONO EXTENDED REL 30 MG TABCR PO SCH (07:45)
[2020-08-05] MEDS: CLOPIDOGREL BISULFATE 75 MG TAB PO SCH (07:45)
[2020-08-05] MEDS: CALCIUM 600MG + VIT D 400 IU TAB PO SCH (07:45)
[2020-08-05] MEDS: MULTIVITAMIN TAB PO SCH (07:45)
[2020-08-05] MEDS: CITALOPRAM 40 MG TAB PO SCH (07:45)
[2020-08-05] MEDS: PROPRANOLOL HCL 20 MG TAB PO SCH ×3 (07:49→22:20)
--- NOTE | 2020-08-05 12:02 | Hospitalist Progress Note ---
Date of Service August 05, 2020 Assessment & Plan (1) Fall: (2) Acute shoulder pain: (3) Cervical spine fracture: Continue aspen collar Patient needs to follow up with ortho in 2 weeks (Patient to call ortho office at [phone] for appointment) PT/OT evaluation noted manager decision support working on rehab placement Fall precautions Shoulder pain likely related to fall and osteoarthritis No fractures on xray. Only degenerative changes in glenohumeral joint and possible chronic rotator cuff degeneration (4) HTN (hypertension): Continue meds (5) Hypothyroidism: Continue levothyroxine (6) Depression: Continue home citalopram (7) Chronic right-sided heart failure: (8) CAD (coronary artery disease): (9) Stented coronary artery: Continue Plavix, statin, imdur (10) EZEQUIEL (obstructive sleep apnea): On chronic oxygen Continue oxygen supplementation Patient's urinary symptoms suggest possible LUTS ?BPH Has been ongoing for a while Continue flomax on discharge Urinalysis on admission did not suggest UTI. Repeat Urinalysis does not suggest UTI If symptoms persist, patient to follow up with Urology DVT ppx- lovenox Admission and Anticipated Discharge Date Admission Date: August 01, 2020 Subjective 79-year-old male with past medical history significant for hypothyroidism, hyperlipidemia, congenital anomaly of lung, nocturnal hypoxemia, obstructive sleep apnea, restrictive lung disease, elevated hemidiaphragm, history of [place], hypertension, chronic right-sided heart failure, idiopathic scoliosis, senile osteoporosis, history of tremor, depression, abnormality of the gait, who lives alone, on oxygen at home 4 liters who presented with left upper extremity and shoulder pain after falling while trying to pick something from the ground some days before. Evaluated and found to have a subtle C2 fracture Patient seen and examined. Reports left shoulder pain especially with abduction. Left arm pain is improved Reports no urinary frequency today but does have hesitancy, occasional incomplete emptying and dribbling Physical Exam Constitutional: + well hydrated; no acute distress Eyes: PERRL, conjunctivae normal, anicteric sclerae ENMT: external ear and nose normal, oropharynx normal Neck: [place] Collar in place Respiratory: normal respiratory effort, lungs clear to auscultation Cardiovascular: Rate/Rhythm: regular rate and regular rhythm S1 S2 Gastrointestinal (Abdomen): normal bowel sounds, soft, nontender, no hepatosplenomegaly Musculoskeletal: [place] Collar in place Power is 4/5 on LUE across elbow Power is 5/5 on RUE/RLE Some pain with active abduction of left shoulder. none on passive abduction Neurologic: PERRL, EOMI, accommodation nl, no face palsy, no dysarthria Psychiatric: A+Ox3, euthymic affect Genitourinary: no CVA tenderness Results & Data Results & Data ([facility]) Vital Signs (Past 12 Hours) Vital Signs Temp Pulse Resp BP Pulse Ox 08/05/20 11:07 63 18 92 08/05/20 07:27 56 L 18 94 08/05/20 07:18 36.6 C 58 L 16 110/74 91 (1) Acute shoulder pain Laterality: left Qualified Code(s): M25.512 - Pain in left shoulder (2) Cervical spine fracture Cervical vertebra fracture level: C2 Encounter type: initial encounter Fracture alignment: nondisplaced Fracture morphology: unspecified fracture morphology Fracture type: closed Qualified Code(s): S12.101A - Unspecified nondisplaced fracture of second cervical vertebra, initial encounter for closed fracture (3) Fall Encounter type: initial encounter Qualified Code(s): W19.XXXA - Unspecified fall, initial encounter
[2020-08-05] MEDS: traMADol HCL 50 MG TABLET PO PRN ×2 (12:15→20:56)
[2020-08-05] MEDS: SIMVASTATIN 10 MG TAB PO SCH (22:20)
[2020-08-06] MEDS: traMADol HCL 50 MG TABLET PO PRN (00:52)
[2020-08-06] MEDS: LEVOTHYROXINE SODIUM 100 MCG TABLET PO SCH (06:44)
[2020-08-06 06:53] LABS: Creatinine Clr Calc Pharmacy 59.8 ml/min; Est GFR (African American) 83.2 ml/min; Est GFR (Non-African American) 71.8 ml/min
[2020-08-06] MEDS: Ipratropium HFA Inhaler (Combivent Respimat P&T Subs) INH SCH (07:31)
[2020-08-06] MEDS: Albuterol HFA 8 GM Inhaler (Combivent Respimat P&T Subs) INH SCH (07:32)
[2020-08-06] MEDS: CITALOPRAM 40 MG TAB PO SCH (08:03)
[2020-08-06] MEDS: CLOPIDOGREL BISULFATE 75 MG TAB PO SCH (08:03)
[2020-08-06] MEDS: CALCIUM 600MG + VIT D 400 IU TAB PO SCH (08:03)
[2020-08-06] MEDS: ISOSORBIDE MONO EXTENDED REL 30 MG TABCR PO SCH (08:04)
[2020-08-06] MEDS: PROPRANOLOL HCL 20 MG TAB PO SCH ×3 (08:04→21:13)
[2020-08-06] MEDS: MULTIVITAMIN TAB PO SCH (08:04)
[2020-08-06] MEDS: TAMSULOSIN HCL 0.4 MG CAP PO SCH (08:04)
[2020-08-06] MEDS: ENOXAPARIN INJ 40 MG/0.4 ML SYR SQ SCH (08:07)
[2020-08-06] MEDS ORDERED: ALBUTEROL HFA 8 GM INHALER INH PRN (09:01)
[2020-08-06] MEDS ORDERED: IPRATROPIUM BROMIDE HFA INHALER INH PRN (09:01)
[2020-08-06] MEDS: ACETAMINOPHEN 500 MG TAB PO SCH ×3 (09:22→21:13)
[2020-08-06] MEDS: traMADol HCL 50 MG TABLET PO SCH ×3 (09:23→21:12)
--- NOTE | 2020-08-06 16:01 | Hospitalist Progress Note ---
Date of Service August 06, 2020 Assessment & Plan (1) Cervical spine fracture: Traumatic cervical spine fracture in situ status post fall, continue aspen collar follow up with ortho in 2 weeks (Patient to call ortho office at [phone] for appointment) PT/OT, power plant manager working on rehab placement Fall precautions (2) Acute shoulder pain: Shoulder pain likely related to fall and osteoarthritis No fractures on xray. Only degenerative changes in glenohumeral joint and possible chronic rotator cuff degeneration Change pain regimen to scheduled tramadol 50 mg with Tylenol 1000 mg every 8 hours, ice to area as often as tolerated. (3) Fall: PT/OT (4) Hypothyroidism: Continue levothyroxine per home regimen. (5) Depression: Continue home citalopram per home regimen. (6) CAD (coronary artery disease): h/o stents. Cont medical management with Plavix, and simvastatin. Also on Imdur. On propranolol for tremors. (7) Hypoxia: He requires 4LPM oxygen while sleeping. Currently wearing it more often, but he is also lying around in bed while at the hospital. He is not working to breathe and lungs are clear to auscultation. CXR revealed trace pleural effusions. Will repeat CXR now. Patient uses intermittent Lasix as outpatient. I don't believe he has taken any this admission. (8) EZEQUIEL (obstructive sleep apnea): Per records, h/o asthmatic lung disease with severe EZEQUIEL (untreated) and a restrictive component secondary to chronically elevated right hemidiaphragm, nocturnal oxygen dependent. Continue oxygen supplementation (9) Lower urinary tract symptoms (LUTS): Urinary frequency, hesitancy, incomplete emptying and dribbling reported this admission. Trial of Flomax started. Continue this at discharge and follow-up [facility] as outpatient. (10) DVT prophylaxis: Lovenox Full Code Dispo-uncertain at this time. Patient is still hypoxic. Will need to investigate this further and work to titrate him off oxygen as tolerated prior to discharge. Was declined from [facility]. SNF may be an option. Nenita Myers DO [facility] Hospitalist Admission and Anticipated Discharge Date Admission Date: August 01, 2020 Subjective 79 yo M with hairline C2 fracture remains in [place] collar pain in left shoulder reported reviewed shoulder xray-no fracture present Tramadol/Tylenol scheduled to help stay ahead of pain Very restricted ROM of left shoulder and this is his main concern He is having difficulty sitting up on his own in bed and has a body tremor at baseline that comes out with any exertion. denies neck pain Review of Systems Review of Systems: All systems reviewed & are unremarkable except as noted in Subjective Physical Exam Physical Exam: CONSTITUTIONAL: WNWD, vitals as above, generally well- appearing EYES: normal conjunctivae, no scleral icterus ENT: external ear and nose normal, MMM RESPIRATORY: clear to auscultation bilaterally, no crackles, rales or wheezes, normal respiratory effort CARDIOVASCULAR: regular rate and rhythm, S1 and 2 heard without murmurs, gallop s or rubs, no JVD, no peripheral edema GASTROINTESTINAL: soft, nontender, ND MUSCULOSKELETAL: strength 5/5 throughout, cannot move left shoulder very much at all in forward flexion or abduction. He is guarded with any passive manipulation from the examiner. Head NC/AT SKIN: warm and dry NEUROLOGIC: CN 2-12 grossly intact, no sensory deficit, normal cognition, normal speech, +tremor with exertion. PSYCHIATRIC: alert cooperative and oriented to person, place and time. Results & Data Results & Data ([facility]) Vital Signs (Past 12 Hours) Vital Signs Temp Pulse Resp BP Pulse Ox 08/06/20 15:37 36.5 C 51 L 18 126/79 93 08/06/20 07:32 63 18 92 08/06/20 07:10 37.1 C 58 L 18 127/[address] [facility] 08/06/20 05:44 Creatinine 1.00 Medications Administered Current Inpatient Medications Acetaminophen (Acetaminophen 500 Mg Tab) 1,000 mg PO Q8 [facility] Stop: 09/05/20 08:59 Last Admin: 08/06/20 13:23 Dose: 1,000 mg Documented by: Albuterol (Albuterol Hfa 8 Gm Inhaler) 1 puffs INH QIDR PRN PRN Reason: SOB/wheezing Stop: 08/31/20 06:59 Citalopram Hydrobromide (Citalopram 40 Mg Tab) [facility] [place] Stop: 08/31/20 08:59 Last Admin: 08/06/20 08:03 Dose: 40 mg Documented by: Clopidogrel Bisulfate (Clopidogrel Bisulfate 75 Mg Tab) 75 [facility] [place] Stop: 08/31/20 08:59 Last Admin: 08/06/20 08:03 Dose: 75 mg Documented by: Enoxaparin Sodium (Enoxaparin Inj 40 Mg/0.4 Ml Syr) 40 mg SQ QAM [facility] Stop: 09/03/20 08:59 Last Admin: 08/06/20 08:07 Dose: Not Given Documented by: Furosemide (Furosemide 20 Mg Tab) 20 mg PO DAILY PRN PRN Reason: Edema Stop: 08/31/20 03:34 Ipratropium [place] (Ipratropium [place] Hfa Inhaler) 1 puffs INH QIDR PRN PRN Reason: SOB/wheezing Stop: 08/31/20 06:59 Isosorbide Mononitrate (Isosorbide [place] Extended Rel 30 Mg Tabcr) 30 mg PO QAM [facility] Stop: 08/31/20 08:59 Last Admin: 08/06/20 08:04 Dose: 30 mg Documented by: Levothyroxine Sodium (Levothyroxine Sodium 100 Mcg Tablet) 100 mcg PO DAILYBB [facility] Stop: 08/31/20 06:29 Last Admin: 08/06/20 06:44 Dose: 100 mcg Documented by: Multivitamins (Multivitamin Tab) 1 tab [facility] [place] Stop: 08/31/20 08:59 Last Admin: 08/06/20 08:04 Dose: 1 tab Documented by: Multivitamins/Minerals (Calcium 600mg + Vit D 400 Iu Tab) 1 tab PO DAILY [facility] Stop: 08/31/20 08:59 Last Admin: 08/06/20 08:03 Dose: 1 tab Documented by: Nitroglycerin (Nitroglycerin Sl 0.4 Mg/Tab Tab) 0.4 mg SL UD PRN PRN Reason: Angina Stop: 08/31/20 03:18 Ondansetron HCl (Ondansetron Inj 2 Mg/Ml 2 Ml Vial) 4 mg IV Q6H PRN PRN Reason: Nausea Stop: 08/31/20 03:18 Polyethylene Glycol (Polyethylene (Miralax) 17 Gm Pack) 17 gm PO DAILY PRN PRN Reason: Constipation Stop: 08/31/20 03:18 Propranolol HCl (Propranolol Hcl 20 Mg Tab) 20 mg PO TID [facility] Stop: 08/31/20 08:59 Last Admin: 08/06/20 13:22 Dose: 20 mg Documented by: Simvastatin (Simvastatin 10 Mg Tab) 10 mg PO [facility] Stop: 08/31/20 20:59 Last Admin: 08/05/20 22:20 Dose: 10 mg Documented by: Tamsulosin HCl (Tamsulosin Hcl 0.4 Mg Cap) 0.4 mg PO QAM [facility] Stop: 09/03/20 08:59 Last Admin: 08/06/20 08:04 Dose: 0.4 mg Documented by: Tramadol HCl (Tramadol Hcl 50 Mg Tablet) 50 mg PO Q4H PRN PRN Reason: Moderate Pain Stop: 09/02/20 14:53 Last Admin: 08/06/20 00:52 Dose: 50 mg Documented by: Tramadol HCl (Tramadol Hcl 50 Mg Tablet) 50 mg PO Q8 [facility] Stop: 09/05/20 08:59 Last Admin: 08/06/20 13:24 Dose: 50 mg Documented by: (1) Fall Encounter type: initial encounter Qualified Code(s): W19.XXXA - Unspecified fall, initial encounter (2) Acute shoulder pain Laterality: left Qualified Code(s): M25.512 - Pain in left shoulder (3) Cervical spine fracture Cervical vertebra fracture level: C2 Encounter type: initial encounter Fracture alignment: nondisplaced Fracture morphology: unspecified fracture morphology Fracture type: closed Qualified Code(s): S12.101A - Unspecified nondisplaced fracture of second cervical vertebra, initial encounter for closed fracture
--- NOTE | 2020-08-06 17:00 | XRay Report ---
SINGLE VIEW CHEST CLINICAL HISTORY: Hypoxia. FINDINGS: 2 AP, portable, supine chest radiographs are compared to study dated 07/31/2020 and correlat ed with chest CT dated 12/23/2019. The examination is degraded by portable technique and patient rotat ion. The heart is top normal for projection. There is pulmonary vascular congestion. Chronic elevat ion of the right hemidiaphragm is similar to previous. There is bibasilar atelectasis. No large pleur al effusion or pneumothorax is identified. A calcified granuloma seen in the right midlung. The skele kassidy structures are osteopenic. Degenerative change and scoliosis are noted in the thoracic spine. The bony thorax is grossly intact. IMPRESSION: 1. There is pulmonary vascular congestion. 2. No airspace consolidation or large pleural effusion is identified. ACT 112: Negative or not required by law. Electronically signed by: Hernan Arguello M.D. 08/06/2020 4:59 PM
[2020-08-06] MEDS: SIMVASTATIN 10 MG TAB PO SCH (21:13)
[2020-08-07] MEDS: traMADol HCL 50 MG TABLET PO PRN (01:23)
[2020-08-07 07:07] LABS: BUN Creatinine Ratio 15.5 (10-20); Calcium 9.4 mg/dl (8.5-10.1); Creatinine Clr Calc Pharmacy 68.8 ml/min; Est GFR (African American) 95.8 ml/min; Est GFR (Non-African American) 82.7 ml/min; Magnesium 2.1 mg/dl (1.8-2.4); Potassium 4.2 mmol/L (3.5-5.1)
[2020-08-07] MEDS: FUROSEMIDE 40 MG in SYRINGE 0 ML IV SCH (07:47)
[2020-08-07] MEDS: CLOPIDOGREL BISULFATE 75 MG TAB PO SCH (07:47)
[2020-08-07] MEDS: PROPRANOLOL HCL 20 MG TAB PO SCH ×3 (07:47→21:11)
[2020-08-07] MEDS: TAMSULOSIN HCL 0.4 MG CAP PO SCH (07:47)
[2020-08-07] MEDS: LEVOTHYROXINE SODIUM 100 MCG TABLET PO SCH (07:48)
[2020-08-07] MEDS: MULTIVITAMIN TAB PO SCH (07:48)
[2020-08-07] MEDS: CALCIUM 600MG + VIT D 400 IU TAB PO SCH (07:48)
[2020-08-07] MEDS: CITALOPRAM 40 MG TAB PO SCH (07:48)
[2020-08-07] MEDS: ACETAMINOPHEN 500 MG TAB PO SCH ×3 (07:48→21:11)
[2020-08-07] MEDS: ISOSORBIDE MONO EXTENDED REL 30 MG TABCR PO SCH (07:48)
[2020-08-07] MEDS: traMADol HCL 50 MG TABLET PO SCH ×3 (07:48→21:10)
[2020-08-07] MEDS: ENOXAPARIN INJ 40 MG/0.4 ML SYR SQ SCH (07:50)
--- NOTE | 2020-08-07 16:35 | Hospitalist Progress Note ---
Date of Service August 07, 2020 Assessment & Plan (1) Cervical spine fracture: Traumatic cervical spine fracture in situ status post fall, continue aspen collar follow up with ortho in 2 weeks (Patient to call ortho office at [phone] for appointment) PT/OT, it audit manager working on rehab placement, SNF strongly recommended. Fall precautions (2) Acute shoulder pain: Shoulder pain likely related to fall and osteoarthritis No fractures on xray. Only degenerative changes in glenohumeral joint and possible chronic rotator cuff degeneration Change pain regimen to scheduled tramadol 50 mg with Tylenol 1000 mg every 8 hours, ice to area as often as tolerated. Added extra tramadol for breakthrough pain in between scheduled doses. (3) Fall: PT/OT (4) Hypothyroidism: Continue levothyroxine per home regimen. (5) Depression: Continue home citalopram per home regimen. (6) CAD (coronary artery disease): h/o stents. Cont medical management with Plavix, and simvastatin. Also on Imdur. On propranolol for tremors. (7) Hypoxia: He requires 4LPM oxygen while sleeping. Currently wearing it more often, but he is also lying around in bed while at the hospital. He is not working to breathe and lungs are clear to auscultation. CXR revealed trace pleural effusions. Will repeat CXR now. Patient uses intermittent Lasix as outpatient. I don't believe he has taken any this admission. (8) EZEQUIEL (obstructive sleep apnea): Per records, h/o asthmatic lung disease with severe EZEQUIEL (untreated) and a restrictive component secondary to chronically elevated right hemidiaphragm, nocturnal oxygen dependent. Continue oxygen supplementation (9) Lower urinary tract symptoms (LUTS): Urinary frequency, hesitancy, incomplete emptying and dribbling reported this admission. Trial of Flomax started. Continue this at discharge and follow-up [facility] as outpatient. (10) DVT prophylaxis: Lovenox Full Code Dispo-uncertain at this time. Was declined from [facility]. SNF may be an option-referrals are pending. Poss dc out in am. Nenita Myers DO [facility] Hospitalist Admission and Anticipated Discharge Date Admission Date: August 01, 2020 Subjective 79 yo M with hairline C2 fracture remains in [place] collar pain in left shoulder reported as somewhat better on the TT combination. Needs some tramadol for breakthrough. denies neck pain Tolerating PO Discussed case with OT provider who strongly recommends SNF with left shoudler injury and whole body tremors. Review of Systems Review of Systems: All systems reviewed & are unremarkable except as noted in Subjective Physical Exam Physical Exam: CONSTITUTIONAL: WNWD, vitals as above, generally well- appearing EYES: normal conjunctivae, no scleral icterus ENT: external ear and nose normal, MMM RESPIRATORY: clear to auscultation bilaterally, no crackles, rales or wheezes, normal respiratory effort CARDIOVASCULAR: regular rate and rhythm, S1 and 2 heard without murmurs, gallops or rubs, no JVD, no peripheral edema GASTROINTESTINAL: soft, nontender, [place] MUSCULOSKELETAL: strength 5/5 throughout, cannot move left shoulder very much at all in forward flexion or abduction. He is guarded with any passive manipulation from the examiner. He can brain picker his arm and flex it forward. Head NC/AT SKIN: warm and dry NEUROLOGIC: CN 2-12 grossly intact, no sensory deficit, normal cognition, normal speech, +tremor with exertion. PSYCHIATRIC: alert cooperative and oriented to person, place and time. Results & Data Results & Data ([facility]) Vital Signs (Past 12 Hours) Vital Signs Temp Pulse Resp BP Pulse Ox 08/07/20 06:59 36.6 C 64 20 127/82 92 Laboratory Results [facility] 08/07/20 05:53 Sodium 136 Potassium 4.2 Chloride 100 Carbon Dioxide 32 BUN 13 Creatinine 0.87 Glucose 95 Calcium 9.4 Medications Administered Current Inpatient Medications Acetaminophen (Acetaminophen 500 Mg Tab) 1,000 mg PO Q8 [facility] Stop: 09/05/20 08:59 Last Admin: 08/07/20 14:07 Dose: 1,000 mg Documented by: Albuterol (Albuterol Hfa 8 Gm Inhaler) 1 puffs INH QIDR PRN PRN Reason: SOB/wheezing Stop: 08/31/20 06:59 Citalopram Hydrobromide (Citalopram 40 Mg Tab) [facility] [place] Stop: 08/31/20 08:59 Last Admin: 08/07/20 07:48 Dose: 40 mg Documented by: Clopidogrel Bisulfate (Clopidogrel Bisulfate 75 Mg Tab) 75 mg [facility] [place] Stop: 08/31/20 08:59 Last Admin: 08/07/20 07:47 Dose: 75 mg Documented by: Enoxaparin Sodium (Enoxaparin Inj 40 Mg/0.4 Ml Syr) 40 mg SQ QAM [facility] Stop: 09/03/20 08:59 Last Admin: 08/07/20 07:50 Dose: Not Given Documented by: Furosemide (Furosemide 20 Mg Tab) 20 mg PO DAILY PRN PRN Reason: Edema Stop: 08/31/20 03:34 Furosemide 40 mg/ Syringe 4 mls @ 4 mls/min [facility] [place] Stop: 09/06/20 08:59 Last Admin: 08/07/20 07:47 Dose: 4 mls/min Documented by: Ipratropium [place] (Ipratropium [place] Hfa Inhaler) 1 puffs INH QIDR PRN PRN Reason: SOB/wheezing Stop: 08/31/20 06:59 Isosorbide Mononitrate (Isosorbide [place] Extended Rel 30 Mg Tabcr) 30 mg PO [facility] Stop: 08/31/20 08:59 Last Admin: 08/07/20 07:48 Dose: 30 mg Documented by: Levothyroxine Sodium (Levothyroxine Sodium 100 Mcg Tablet) 100 mcg PO DAILYBB [facility] Stop: 08/31/20 06:29 Last Admin: 08/07/20 07:48 Dose: 100 mcg Documented by: Multivitamins (Multivitamin Tab) 1 tab PO [facility] Stop: 08/31/20 08:59 Last Admin: 08/07/20 07:48 Dose: 1 tab Documented by: Multivitamins/Minerals (Calcium 600mg + Vit D 400 Iu Tab) 1 tab PO DAILY [facility] Stop: 08/31/20 08:59 Last Admin: 08/07/20 07:48 Dose: 1 tab Documented by: Nitroglycerin (Nitroglycerin Sl 0.4 Mg/Tab Tab) 0.4 mg SL UD PRN PRN Reason: Angina Stop: 08/31/20 03:18 Ondansetron HCl (Ondansetron Inj 2 Mg/Ml 2 Ml Vial) 4 mg IV Q6H PRN PRN Reason: Nausea Stop: 08/31/20 03:18 Polyethylene Glycol (Polyethylene (Miralax) 17 Gm Pack) 17 gm PO DAILY PRN PRN Reason: Constipation Stop: 08/31/20 03:18 Propranolol HCl (Propranolol Hcl 20 Mg Tab) 20 mg PO TID [facility] Stop: 08/31/20 08:59 Last Admin: 08/07/20 14:07 Dose: 20 mg Documented by: Simvastatin (Simvastatin 10 Mg Tab) 10 mg PO HS [facility] Stop: 08/31/20 20:59 Last Admin: 08/06/20 21:13 Dose: 10 mg Documented by: Tamsulosin HCl (Tamsulosin Hcl 0.4 Mg Cap) 0.4 mg PO QAM [facility] Stop: 09/03/20 08:59 Last Admin: 08/07/20 07:47 Dose: 0.4 mg Documented by: Tramadol HCl (Tramadol Hcl 50 Mg Tablet) 50 mg PO Q8 [facility] Stop: 09/05/20 08:59 Last Admin: 08/07/20 14:07 Dose: 50 mg Documented by: Tramadol HCl (Tramadol Hcl 50 Mg Tablet) 50 mg PO Q6H PRN PRN Reason: severe breakthrough pain Stop: 09/06/20 16:23 (1) Acute shoulder pain Laterality: left Qualified Code(s): M25.512 - Pain in left shoulder (2) Cervical spine fracture Cervical vertebra fracture level: C2 Encounter type: initial encounter Fracture alignment: nondisplaced Fracture morphology: unspecified fracture morphology Fracture type: closed Qualified Code(s): S12.101A - Unspecified nondisplaced fracture of second cervical vertebra, initial encounter for closed fracture (3) Fall Encounter type: initial encounter Qualified Code(s): W19.XXXA - Unspecified fall, initial encounter
[2020-08-07] MEDS: SIMVASTATIN 10 MG TAB PO SCH (21:10)
[2020-08-08] MEDS: traMADol HCL 50 MG TABLET PO PRN ×2 (02:39→23:36)
[2020-08-08] MEDS: traMADol HCL 50 MG TABLET PO SCH ×2 (05:45→15:09)
[2020-08-08] MEDS: LEVOTHYROXINE SODIUM 100 MCG TABLET PO SCH (05:45)
[2020-08-08] MEDS: ACETAMINOPHEN 500 MG TAB PO SCH ×3 (05:45→21:08)
[2020-08-08] MEDS: ENOXAPARIN INJ 40 MG/0.4 ML SYR SQ SCH (09:10)
[2020-08-08] MEDS: CALCIUM 600MG + VIT D 400 IU TAB PO SCH (09:10)
[2020-08-08] MEDS: ISOSORBIDE MONO EXTENDED REL 30 MG TABCR PO SCH (09:10)
[2020-08-08] MEDS: MULTIVITAMIN TAB PO SCH (09:10)
[2020-08-08] MEDS: CITALOPRAM 40 MG TAB PO SCH (09:10)
[2020-08-08] MEDS: TAMSULOSIN HCL 0.4 MG CAP PO SCH (09:10)
[2020-08-08] MEDS: CLOPIDOGREL BISULFATE 75 MG TAB PO SCH (09:10)
[2020-08-08] MEDS: PROPRANOLOL HCL 20 MG TAB PO SCH ×3 (09:11→21:08)
[2020-08-08] MEDS: FUROSEMIDE 40 MG in SYRINGE 0 ML IV SCH (09:11)
--- NOTE | 2020-08-08 19:06 | Hospitalist Progress Note ---
Date of Service August 08, 2020 Assessment & Plan (1) Cervical spine fracture: Traumatic cervical spine fracture in situ status post fall, continue aspen collar follow up with ortho in 2 weeks (Patient to call ortho office at [phone] for appointment) PT/OT, SNF on Tuesday (2) Acute shoulder pain: Shoulder pain likely related to fall and osteoarthritis, strain vs sprain. Cont ICE and scheduled Tylenol. Some spasms of arms and ?hallucinations. Backing off the tramadol now and use PRN only. (3) Fall: PT/OT (4) Hypothyroidism: Continue levothyroxine per home regimen. (5) Depression: Continue home citalopram per home regimen. (6) CAD (coronary artery disease): h/o stents. Cont medical management with Plavix, and simvastatin. Also on Imdur. On propranolol for tremors. (7) Hypoxia: He requires 4LPM oxygen while sleeping. No SOB-seems to be around baseline oxygen needs. Cont with daily Lasix for now as patient states he feels better with this. Euvolemic. (8) EZEQUIEL (obstructive sleep apnea): Per records, h/o asthmatic lung disease with severe EZEQUIEL (untreated) and a restrictive component secondary to chronically elevated right hemidiaphragm, nocturnal oxygen dependent. Continue oxygen supplementation (9) Lower urinary tract symptoms (LUTS): Urinary frequency, hesitancy, incomplete emptying and dribbling reported this admission. Trial of Flomax started. Continue this at discharge and follow-up [facility] as outpatient. (10) DVT prophylaxis: Lovenox Full Code Dispo-uncertain at this time. Was declined from [facility] on Tuesday. DO [facility] Hospital[facility] Admission and Anticipated Discharge Date Admission Date: August 01, 2020 Subjective 79 yo M with hairline C2 fracture remains in [place] collar pain in left shoulder is better, improved ROM denies neck pain Plan for SNF on Tuesday Review of Systems Review of Systems: All systems reviewed & are unremarkable except as noted in Subjective Physical Exam Physical Exam: CONSTITUTIONAL: WNWD, vitals as above, generally well- appearing EYES: normal conjunctivae, no scleral icterus ENT: external ear and nose normal, MMM RESPIRATORY: clear to auscultation bilaterally, no crackles, rales or wheezes, normal respiratory effort CARDIOVASCULAR: regular rate and rhythm, S1 and 2 heard without murmurs, gallops or rubs, no JVD, no peripheral edema GASTROINTESTINAL: soft, nontender, ND MUSCULOSKELETAL: strength 5/5 throughout, improved ROM of left shoulder-can forward flex better today. Head NC/AT, hard collar in place. SKIN: warm and dry NEUROLOGIC: CN 2-12 grossly intact, no sensory deficit, normal cognition, normal speech, +whole body tremors PSYCHIATRIC: alert cooperative and oriented to person, place and time. Results & Data Results & [facility] ([facility] Vital Signs (Past 12 Hours) Vital Signs Temp Pulse Resp BP Pulse Ox 08/08/20 15:11 36.5 C 67 18 129/69 92 08/08/20 07:35 37 C 81 18 133/73 94 Medications Administered Current Inpatient Medications Acetaminophen (Acetaminophen 500 Mg Tab) 1,000 mg PO Q8 [facility] Stop: 09/05/20 08:59 Last Admin: 08/08/20 15:09 Dose: 1,000 mg Documented by: Albuterol (Albuterol Hfa 8 Gm Inhaler) 1 puffs INH QIDR PRN PRN Reason: SOB/wheezing Stop: 08/31/20 06:59 Citalopram Hydrobromide ([facility]italopram 40 Mg Tab) [facility] 08/31/20 08:59 Last Admin: 08/08/20 09:10 Dose: 40 mg Documented by: Clopidogrel Bisulfate (Clopidogrel Bisulfate 75 Mg Tab) 75 mg PO QAM [facility] Stop: 08/31/20 08:59 Last Admin: 08/08/20 09:10 Dose: 75 mg Documented by: Enoxaparin Sodium (Enoxaparin Inj 40 Mg/0.4 Ml Syr) [facility] Stop: 09/03/20 08:59 Last Admin: 08/08/20 09:10 Dose: Not Given Documented by: Furosemide (Furosemide 20 Mg Tab) 20 mg PO DAILY PRN PRN Reason: Edema Stop: 08/31/20 03:34 Furosemide 40 mg/ Syringe 4 mls @ 4 mls/min IV QAM [facility] Stop: 09/06/20 08:59 Last Admin: 08/08/20 09:11 Dose: 4 mls/min Documented by: Ipratropium [place] (Ipratropium [place] Hfa Inhaler) 1 puffs INH QIDR PRN PRN Reason: SOB/wheezing Stop: 08/31/20 06:59 Isosorbide Mononitrate (Isosorbide [place] Extended Rel 30 Mg Tabcr) 30 mg PO QAM [facility] Stop: 08/31/20 08:59 Last Admin: 08/08/20 09:10 Dose: 30 mg Documented by: Levothyroxine Sodium (Levothyroxine Sodium 100 Mcg Tablet) 100 mcg PO DAILYBB [facility] Stop: 08/31/20 06:29 Last Admin: 08/08/20 05:45 Dose: 100 mcg Documented by: Multivitamins (Multivitamin Tab) 1 tab PO QAM [facility] Stop: 08/31/20 08:59 Last Admin: 08/08/20 09:10 Dose: 1 tab Documented by: Multivitamins/Minerals (Calcium 600mg + Vit D 400 Iu Tab) 1 tab PO DAILY [facility] Stop: 08/31/20 08:59 Last Admin: 08/08/20 09:10 Dose: 1 tab Documented by: Nitroglycerin (Nitroglycerin Sl 0.4 Mg/Tab Tab) 0.4 mg SL UD PRN PRN Reason: Angina Stop: 08/31/20 03:18 Ondansetron HCl (Ondansetron Inj 2 Mg/Ml 2 Ml Vial) 4 mg IV Q6H PRN PRN Reason: Nausea Stop: 08/31/20 03:18 Polyethylene Glycol (Polyethylene (Miralax) 17 Gm Pack) 17 gm PO DAILY PRN PRN Reason: Constipation Stop: 08/31/20 03:18 Propranolol HCl (Propranolol Hcl 20 Mg Tab) 20 mg PO TID [facility] Stop: 08/31/20 08:59 Last Admin: 08/08/20 15:09 Dose: 20 mg Documented by: Simvastatin (Simvastatin 10 Mg Tab) 10 mg PO HS [facility] Stop: 08/31/20 20:59 Last Admin: 08/07/20 21:10 Dose: 10 mg Documented by: Tamsulosin HCl (Tamsulosin Hcl 0.4 Mg Cap) 0.4 mg PO QAM [facility] Stop: 09/03/20 08:59 Last Admin: 08/08/20 09:10 Dose: 0.4 mg Documented by: Tramadol HCl (Tramadol Hcl 50 Mg Tablet) 50 mg PO Q6H PRN PRN Reason: severe breakthrough pain Stop: 07/17/21 16:23 Last Admin: 08/08/20 02:39 Dose: 50 mg Documented by: (1) Acute shoulder pain Laterality: left Qualified Code(s): M25.512 - Pain in left shoulder (2) Cervical spine fracture Cervical vertebra fracture level: C2 Encounter type: initial encounter Fracture alignment: nondisplaced Fracture morphology: unspecified fracture morphology Fracture type: closed Qualified Code(s): S12.101A - Unspecified nondisplaced fracture of second cervical vertebra, initial encounter for closed fracture (3) Fall Encounter type: initial encounter Qualified Code(s): W19.XXXA - Unspecified fall, initial encounter
[2020-08-08] MEDS: SIMVASTATIN 10 MG TAB PO SCH (21:09)
[2020-08-09] MEDS: ACETAMINOPHEN 500 MG TAB PO SCH ×3 (05:56→22:14)
[2020-08-09] MEDS: LEVOTHYROXINE SODIUM 100 MCG TABLET PO SCH (05:56)
[2020-08-09] MEDS: FUROSEMIDE 40 MG in SYRINGE 0 ML IV SCH (08:17)
[2020-08-09] MEDS: traMADol HCL 50 MG TABLET PO PRN (08:17)
[2020-08-09] MEDS: ISOSORBIDE MONO EXTENDED REL 30 MG TABCR PO SCH (08:18)
[2020-08-09] MEDS: PROPRANOLOL HCL 20 MG TAB PO SCH ×3 (08:18→22:13)
[2020-08-09] MEDS: ENOXAPARIN INJ 40 MG/0.4 ML SYR SQ SCH ×2 (08:18→08:25)
[2020-08-09] MEDS: CALCIUM 600MG + VIT D 400 IU TAB PO SCH (08:19)
[2020-08-09] MEDS: MULTIVITAMIN TAB PO SCH (08:19)
[2020-08-09] MEDS: CLOPIDOGREL BISULFATE 75 MG TAB PO SCH (08:19)
[2020-08-09] MEDS: CITALOPRAM 40 MG TAB PO SCH (08:19)
[2020-08-09] MEDS: TAMSULOSIN HCL 0.4 MG CAP PO SCH (08:19)
[2020-08-09 10:12] LABS: BUN Creatinine Ratio 19.1 (10-20); Calcium 9.8 mg/dl (8.5-10.1); Creatinine Clr Calc Pharmacy 70.4 ml/min; Est GFR (African American) 96.7 ml/min; Est GFR (Non-African American) 83.5 ml/min; Potassium 3.7 mmol/L (3.5-5.1)
--- NOTE | 2020-08-09 16:37 | Hospitalist Progress Note ---
Date of Service August 09, 2020 Assessment & Plan (1) Cervical spine fracture: Traumatic cervical spine fracture in situ status post fall, continue aspen collar follow up with ortho in 2 weeks (Patient to call ortho office at [phone] for appointment) PT/OT, SNF on Tuesday (2) Acute shoulder pain: Shoulder pain likely related to fall and osteoarthritis, strain vs sprain. Cont ICE and scheduled Tylenol. Some spasms of arms and ?hallucinations. Backing off the tramadol now and use PRN only. (3) Fall: PT/OT (4) Hypothyroidism: Continue levothyroxine per home regimen. (5) Depression: Continue home citalopram per home regimen. (6) CAD (coronary artery disease): h/o stents. Cont medical management with Plavix, and simvastatin. Also on Imdur. On propranolol for tremors. (7) Hypoxia: He requires 4LPM oxygen while sleeping. No SOB-seems to be around baseline oxygen needs. Cont with daily Lasix for now as patient states he feels better with this. Euvolemic. (8) EZEQUIEL (obstructive sleep apnea): Per records, h/o asthmatic lung disease with severe EZEQUIEL (untreated) and a restrictive component secondary to chronically elevated right hemidiaphragm, nocturnal oxygen dependent. Continue oxygen supplementation (9) Lower urinary tract symptoms (LUTS): Urinary frequency, hesitancy, incomplete emptying and dribbling reported this admission. Trial of Flomax started. Continue this at discharge and follow-up [facility] as outpatient. (10) DVT prophylaxis: Lovenox Full Code Dispo-uncertain at this time. Was declined from [facility] on Tuesday. DO [facility] Hospitalist Admission and Anticipated Discharge Date Admission Date: August 01, 2020 Subjective 79 yo M with hairline C2 fracture remains in [place] collar pain in left shoulder is better, improved ROM denies neck pain Plan for SNF on Tuesday Review of Systems Review of Systems: All systems reviewed & are unremarkable except as noted in Subjective Physical Exam Physical Exam: CONSTITUTIONAL: WNWD, vitals as above, generally well- appearing EYES: normal conjunctivae, no scleral icterus ENT: external ear and nose normal, MMM RESPIRATORY: clear to auscultation bilaterally, no crackles, rales or wheezes, normal respiratory effort CARDIOVASCULAR: regular rate and rhythm, S1 and 2 heard without murmurs, gallops or rubs, no JVD, no peripheral edema GASTROINTESTINAL: soft, nontender, ND MUSCULOSKELETAL: strength 5/5 throughout, improved ROM of left shoulder-can forward flex better today. Head NC/AT, hard collar in place. SKIN: warm and dry NEUROLOGIC: CN 2-12 grossly intact, no sensory deficit, normal cognition, normal speech, +whole body tremors PSYCHIATRIC: alert cooperative and oriented to person, place and time. Results & Data Results & Data ([facility]) Vital Signs (Past 12 Hours) Vital Signs Temp Pulse Resp BP Pulse Ox 08/09/20 15:22 36.6 C 70 20 125/83 92 08/09/20 08:23 36.6 C 61 18 96 Laboratory Results [facility] 08/09/20 08:38 Sodium 136 Potassium 3.7 Chloride 99 Carbon Dioxide 33 H BUN 16 Creatinine 0.85 Glucose 98 Calcium 9.8 Medications Administered Current Inpatient Medications Acetaminophen (Acetaminophen 500 Mg Tab) 1,000 mg PO Q8 [facility] Stop: 09/05/20 08:59 Last Admin: 08/09/20 14:14 Dose: 1,000 mg Documented by: Albuterol (Albuterol Hfa 8 Gm Inhaler) 1 puffs INH QIDR PRN PRN Reason: SOB/wheezing Stop: 08/31/20 06:59 Citalopram Hydrobromide (Citalopram 40 Mg Tab) 40 mg [facility] Stop: 08/31/20 08:59 Last Admin: 08/09/20 08:19 Dose: 40 mg Documented by: Clopidogrel Bisulfate (Clopidogrel Bisulfate 75 Mg Tab) 75 mg PO QAWW [facility] Stop: 08/31/20 08:59 Last Admin: 08/09/20 08:19 Dose: 75 mg Documented by: Enoxaparin Sodium (Enoxaparin Inj 40 Mg/0.4 Ml Syr) 40 mg SQ QAWW [facility] Stop: 09/03/20 08:59 Last Admin: 08/09/20 08:25 Dose: Not Given Documented by: Furosemide (Furosemide 20 Mg Tab) 20 mg PO DAILY PRN PRN Reason: Edema Stop: 08/31/20 03:34 Furosemide 40 mg/ Syringe 4 mls @ 4 mls/min IV QAWW [facility] Stop: 09/06/20 08:59 Last Admin: 08/09/20 08:17 Dose: 4 mls/min Documented by: Ipratropium [place] (Ipratropium [place] Hfa Inhaler) 1 puffs INH QIDR PRN PRN Reason: SOB/wheezing Stop: 08/31/20 06:59 Isosorbide Mononitrate (Isosorbide [place] Extended Rel 30 Mg Tabcr) 30 mg PO QAM [facility] Stop: 08/31/20 08:59 Last Admin: 08/09/20 08:18 Dose: 30 mg Documented by: Levothyroxine Sodium (Levothyroxine Sodium 100 Mcg Tablet) 100 mcg PO DAILYBB [facility] Stop: 08/31/20 06:29 Last Admin: 08/09/20 05:56 Dose: 100 mcg Documented by: Multivitamins (Multivitamin Tab) 1 tab PO QAM [facility] Stop: 08/31/20 08:59 Last Admin: 08/09/20 08:19 Dose: 1 tab Documented by: Multivitamins/Minerals (Calcium 600mg + Vit D 400 Iu Tab) 1 tab PO DAILY [facility] Stop: 08/31/20 08:59 Last Admin: 08/09/20 08:19 Dose: 1 tab Documented by: Nitroglycerin (Nitroglycerin Sl 0.4 Mg/Tab Tab) 0.4 mg SL UD PRN PRN Reason: Angina Stop: 08/31/20 03:18 Ondansetron HCl (Ondansetron Inj 2 Mg/Ml 2 Ml Vial) 4 mg IV Q6H PRN PRN Reason: Nausea Stop: 08/31/20 03:18 Polyethylene Glycol (Polyethylene (Miralax) 17 Gm Pack) 17 gm PO DAILY PRN PRN Reason: Constipation Stop: 08/31/20 03:18 Propranolol HCl (Propranolol Hcl 20 Mg Tab) 20 mg PO TID [facility] Stop: 08/31/20 08:59 Last Admin: 08/09/20 14:15 Dose: 20 mg Documented by: Simvastatin (Simvastatin 10 Mg Tab) 10 mg PO HS [facility] Stop: 08/31/20 20:59 Last Admin: 08/08/20 21:09 Dose: 10 mg Documented by: Tamsulosin HCl (Tamsulosin Hcl 0.4 Mg Cap) 0.4 mg PO QAM [facility] Stop: 09/03/20 08:59 Last Admin: 08/09/20 08:19 Dose: 0.4 mg Documented by: Tramadol HCl (Tramadol Hcl 50 Mg Tablet) 50 mg PO Q6H PRN PRN Reason: severe breakthrough pain Stop: 09/06/20 16:23 Last Admin: 08/09/20 08:17 Dose: 50 mg Documented by: (1) Acute shoulder pain Laterality: left Qualified Code(s): M25.512 - Pain in left shoulder (2) Cervical spine fracture Cervical vertebra fracture level: C2 Encounter type: initial encounter Fracture alignment: nondisplaced Fracture morphology: unspecified fracture morphology Fracture type: closed Qualified Code(s): S12.101A - Unspecified nondisplaced fracture of second cervical vertebra, initial encounter for closed fracture (3) Fall Encounter type: initial encounter Qualified Code(s): W19.XXXA - Unspecified fall, initial encounter
[2020-08-09] MEDS: SIMVASTATIN 10 MG TAB PO SCH (22:14)
[2020-08-10] MEDS: LEVOTHYROXINE SODIUM 100 MCG TABLET PO SCH (05:57)
[2020-08-10] MEDS: ACETAMINOPHEN 500 MG TAB PO SCH ×3 (05:58→20:56)
[2020-08-10] MEDS: MULTIVITAMIN TAB PO SCH (09:22)
[2020-08-10] MEDS: PROPRANOLOL HCL 20 MG TAB PO SCH ×3 (09:22→20:55)
[2020-08-10] MEDS: ENOXAPARIN INJ 40 MG/0.4 ML SYR SQ SCH (09:22)
[2020-08-10] MEDS: CLOPIDOGREL BISULFATE 75 MG TAB PO SCH (09:22)
[2020-08-10] MEDS: FUROSEMIDE 40 MG in SYRINGE 0 ML IV SCH (09:22)
[2020-08-10] MEDS: ISOSORBIDE MONO EXTENDED REL 30 MG TABCR PO SCH (09:23)
[2020-08-10] MEDS: CALCIUM 600MG + VIT D 400 IU TAB PO SCH (09:23)
[2020-08-10] MEDS: TAMSULOSIN HCL 0.4 MG CAP PO SCH (09:23)
[2020-08-10] MEDS: CITALOPRAM 40 MG TAB PO SCH (09:34)
--- NOTE | 2020-08-10 19:55 | Hospitalist Progress Note ---
Date of Service August 10, 2020 Assessment & Plan (1) Cervical spine fracture: Traumatic cervical spine fracture in situ status post fall, continue aspen collar follow up with ortho in 2 weeks (Patient to call ortho office at [phone] for appointment) PT/OT, SNF on Tuesday (2) Acute shoulder pain: Shoulder pain likely related to fall and osteoarthritis, strain vs sprain. Cont ICE and scheduled Tylenol. Some spasms of arms and ?hallucinations. Tramadol PRN. (3) Fall: PT/OT (4) Hypothyroidism: Continue levothyroxine per home regimen. (5) Depression: Continue home citalopram per home regimen. (6) CAD (coronary artery disease): h/o stents. Cont medical management with Plavix, and simvastatin. Also on Imdur. On propranolol for tremors. (7) Hypoxia: He requires 4LPM oxygen while sleeping. No SOB-seems to be around [place] oxygen needs. Cont with daily Lasix for now as patient states he feels better with this. Euvolemic. (8) EZEQUIEL (obstructive sleep apnea): Per records, h/o asthmatic lung disease with severe EZEQUIEL (untreated) and a restrictive component secondary to chronically elevated right hemidiaphragm, nocturnal oxygen dependent. Continue oxygen supplementation (9) Lower urinary tract symptoms (LUTS): Urinary frequency, hesitancy, incomplete emptying and dribbling reported this admission. Trial of Flomax started. Continue this at discharge and follow-up [facility] as outpatient. (10) DVT prophylaxis: Lovenox Full Code Dispo-uncertain at this time. Was declined from [facility] on Tuesday. Nenita Myers DO [facility] Hospitalist Admission and Anticipated Discharge Date Admission Date: August 01, 2020 Subjective 79 yo M with hairline C2 fracture remains in [place] collar pain in left shoulder is better, improved ROM denies neck pain Plan for SNF on Tuesday Review of Systems Review of Systems: All systems reviewed & are unremarkable except as noted in Subjective Physical Exam Physical Exam: CONSTITUTIONAL: WNWD, vitals as above, generally well- appearing EYES: normal conjunctivae, no scleral icterus ENT: external ear and nose normal, MMM RESPIRATORY: clear to auscultation bilaterally, no crackles, rales or wheezes, normal respiratory effort CARDIOVASCULAR: regular rate and rhythm, S1 and 2 heard without murmurs, gallops or rubs, no JVD, no peripheral edema GASTROINTESTINAL: soft, nontender, ND MUSCULOSKELETAL: strength 5/5 throughout, improved ROM of left shoulder. Head NC/AT, hard collar in place. SKIN: warm and dry NEUROLOGIC: CN 2-12 grossly intact, no sensory deficit, normal cognition, normal speech, +whole body tremors PSYCHIATRIC: alert cooperative and oriented to person, place and time. Results & Data Results & Data ([facility]) Vital Signs (Past 12 Hours) Vital Signs Temp Pulse Resp BP Pulse Ox 08/10/20 17:59 36.8 C 64 18 117/74 92 Medications Administered Current Inpatient Medications Acetaminophen (Acetaminophen 500 Mg Tab) 1,000 mg PO Q8 [facility] Stop: 09/05/20 08:59 Last Admin: 08/10/20 14:41 Dose: 1,000 mg Documented by: Albuterol (Albuterol Hfa 8 Gm Inhaler) 1 puffs INH QIDR PRN PRN Reason: SOB/wheezing Stop: 08/31/20 06:59 Citalopram Hydrobromide (Citalopram 40 Mg Tab) 40 mg PO [facility] Stop: 08/31/20 08:59 Last Admin: 08/10/20 09:34 Dose: 40 mg Documented by: Clopidogrel Bisulfate (Clopidogrel Bisulfate 75 Mg Tab) 75 mg PO QAM [facility] Stop: 08/31/20 08:59 Last Admin: 08/10/20 09:22 Dose: 75 mg Documented by: Enoxaparin Sodium (Enoxaparin Inj 40 Mg/0.4 Ml Syr) [facility]: 09/03/20 08:59 Last Admin: 08/10/20 09:22 Dose: 40 mg Documented by: Furosemide (Furosemide 20 Mg Tab) 20 mg PO DAILY PRN PRN Reason: Edema Stop: 08/31/20 03:34 Furosemide 40 mg/ Syringe 4 mls @ 4 mls/min [facility] Stop: 09/06/20 08:59 Last Admin: 08/10/20 09:22 Dose: 4 mls/min Documented by: Ipratropium [place] (Ipratropium [place] Hfa Inhaler) 1 puffs INH QIDR PRN PRN Reason: SOB/wheezing Stop: 08/31/20 06:59 Isosorbide Mononitrate (Isosorbide [place] Extended Rel 30 Mg Tabcr) 30 mg PO QAM [facility] Stop: 08/31/20 08:59 Last Admin: 08/10/20 09:23 Dose: 30 mg Documented by: Levothyroxine Sodium (Levothyroxine Sodium 100 Mcg Tablet) 100 mcg PO DAILYBB [facility] Stop: 08/31/20 06:29 Last Admin: 08/10/20 05:57 Dose: 100 mcg Documented by: Multivitamins (Multivitamin Tab) 1 tab PO QAM [facility] Stop: 08/31/20 08:59 Last Admin: 08/10/20 09:22 Dose: 1 tab Documented by: Multivitamins/Minerals (Calcium 600mg + Vit D 400 Iu Tab) 1 tab PO DAILY [facility] Stop: 08/31/20 08:59 Last Admin: 08/10/20 09:23 Dose: 1 tab Documented by: Nitroglycerin (Nitroglycerin Sl 0.4 Mg/Tab Tab) 0.4 mg SL UD PRN PRN Reason: Angina Stop: 08/31/20 03:18 Ondansetron HCl (Ondansetron Inj 2 Mg/Ml 2 Ml Vial) 4 mg IV Q6H PRN PRN Reason: Nausea Stop: 08/31/20 03:18 Polyethylene Glycol (Polyethylene (Miralax) 17 Gm Pack) 17 gm PO DAILY PRN PRN Reason: Constipation Stop: 08/31/20 03:18 Propranolol HCl (Propranolol Hcl 20 Mg Tab) 20 mg PO TID [facility] Stop: 08/31/20 08:59 Last Admin: 08/10/20 14:41 Dose: 20 mg Documented by: Simvastatin (Simvastatin 10 Mg Tab) 10 mg PO [facility] Stop: 08/31/20 20:59 Last Admin: 08/09/20 22:14 Dose: 10 mg Documented by: Tamsulosin HCl (Tamsulosin Hcl 0.4 Mg Cap) 0.4 mg PO QAM [facility] Stop: 09/03/20 08:59 Last Admin: 08/10/20 09:23 Dose: 0.4 mg Documented by: Tramadol HCl (Tramadol Hcl 50 Mg Tablet) 50 mg PO Q6H PRN PRN Reason: severe breakthrough pain Stop: 09/06/20 16:23 Last Admin: 08/09/20 08:17 Dose: 50 mg Documented by: (1) Acute shoulder pain Laterality: left Qualified Code(s): M25.512 - Pain in left shoulder (2) Cervical spine fracture Cervical vertebra fracture level: C2 Encounter type: initial encounter Fracture alignment: nondisplaced Fracture morphology: unspecified fracture morphology Fracture type: closed Qualified Code(s): S12.101A - Unspecified nondisplaced fracture of second cervical vertebra, initial encounter for closed fracture (3) Fall Encounter type: initial encounter Qualified Code(s): W19.XXXA - Unspecified fall, initial encounter
[2020-08-10] MEDS: SIMVASTATIN 10 MG TAB PO SCH (20:56)
[2020-08-11] MEDS: LEVOTHYROXINE SODIUM 100 MCG TABLET PO SCH (05:24)
[2020-08-11] MEDS: ACETAMINOPHEN 500 MG TAB PO SCH (05:24)
[2020-08-11] MEDS: CALCIUM 600MG + VIT D 400 IU TAB PO SCH (09:21)
[2020-08-11] MEDS: CITALOPRAM 40 MG TAB PO SCH (09:22)
[2020-08-11] MEDS: CLOPIDOGREL BISULFATE 75 MG TAB PO SCH (09:22)
[2020-08-11] MEDS: ENOXAPARIN INJ 40 MG/0.4 ML SYR SQ SCH (09:23)
[2020-08-11] MEDS: ISOSORBIDE MONO EXTENDED REL 30 MG TABCR PO SCH (09:23)
[2020-08-11] MEDS: MULTIVITAMIN TAB PO SCH (09:23)
[2020-08-11] MEDS: PROPRANOLOL HCL 20 MG TAB PO SCH (09:23)
[2020-08-11] MEDS: TAMSULOSIN HCL 0.4 MG CAP PO SCH (09:24)
--- NOTE | 2020-08-11 11:14 | Discharge Summary ---
Date of Service August 11, 2020 Admission HPI Per Admitting Provider HISTORY OF PRESENT ILLNESS: A 79-year-old male with past medical history significant for hypothyroidism, hyperlipidemia, congenital anomaly of lung, nocturnal hypoxemia, obstructive sleep apnea, restrictive lung disease, elevated hemidiaphragm, history of IA, hypertension, chronic right-sided heart failure, idiopathic scoliosis, senile osteoporosis, history of tremor, depression, abnormality of the gait, who lives alone, on oxygen at home 4 liters. Says he was trying to bend and get something from the floor on last Tuesday when he slipped and fell. He laid on the floor for 15 minutes and finally was able to crawl on his hands and legs and able to sit in a chair. Since then, he has some neck pain. But currently now he has a pain in the left shoulder. He cannot move his left upper extremity much because of pain in his shoulder. This is the reason he came to the hospital. Seen by orthopedics for C2 fracture and placed on Dellroy collar. CT angio neck was obtained showing no involvement of artery. Other imaging studies, shoulder x-ray and cxr okay. Currently resting comfortably, on neck collar. Denies any headache. Vision is not that great. No earache. He has chronic runny nose. No sore throat, no cough, no fever, no chest pain. Gets sometimes short of breath on exertion. Has some nausea, no vomiting, no abdominal pain. Somewhat constipated. No bloody stools. Normal bladder movements. No rash. Appetite is okay. . Admission Exam Per Admitting Provider PHYSICAL EXAMINATION: GENERAL: The patient is of moderate build, not in acute distress. VITAL SIGNS: Temperature 36.8, pulse 51, respiratory rate 13, blood pressure 127/71, oxygen 94% on room air. HEENT: Pupils equal, round, reactive to light. Oral mucosa dry. NECK: On neck collar. CARDIOVASCULAR: S1, S2 heard, regular rate and rhythm. No murmur, no gallop. RESPIRATORY SYSTEM: Normal AP diameter. No accessory muscle use. No wheezing, no crackles. ABDOMEN: Soft, bowel sounds present, nontender. No distention. CENTRAL NERVOUS SYSTEM: Cranial nerves II-XII grossly intact. Nonfocal. Power 5/5 in all extremities except he is having painful movements because of pain left upper extremity. EXTREMITIES: No edema, no erythema. Principal Diagnosis Cervical spine fracture Acute shoulder pain status post fall likely related to strain versus sprain Chronic hypoxic respiratory failure Discharge Exam CONSTITUTIONAL: WNWD, vitals as above, generally well-appearing EYES: normal conjunctivae, no scleral icterus ENT: external ear and nose normal, MMM RESPIRATORY: clear to auscultation bilaterally, no crackles, rales or wheezes, normal respiratory effort CARDIOVASCULAR: regular rate and rhythm, S1 and 2 heard without murmurs, gallops or rubs, no JVD, no peripheral edema GASTROINTESTINAL: soft, nontender, ND MUSCULOSKELETAL: strength 5/5 throughout, improved ROM of left shoulder. Head NC/AT, hard collar in place. SKIN: warm and dry NEUROLOGIC: CN 2-12 grossly intact, no sensory deficit, normal cognition, normal speech, +whole body tremors PSYCHIATRIC: alert cooperative and oriented to person, place and time. Discharge Data Allergies Allergy/AdvReac Type Severity Reaction Status Date / Time grapefruit Allergy Unknown WAS TOLD Verified 08/15/20 11:00 NOT TO TAKE No Known Drug Allergies Allergy Unknown . Verified 08/15/20 11:00 Consultations 07/31/20 23:10 ED Decision to Admit Stat 08/01/20 03:19 Consult Orthopedic Surgery Routine Ordered Studies Laboratory Results WBC 10.20 K/uL (4.8-10.8) 08/02/20 06:14 RBC 4.80 M/uL (4.7-6.1) 08/02/20 06:14 Hgb 15.2 g/dL (14.0-18.0) 08/02/20 06:14 Hct 45.4 % (42-52) 08/02/20 06:14 MCV 94.6 fL (80-100) 08/02/20 06:14 MCH 31.7 pg (25-34) 08/02/20 06:14 MCHC 33.5 g/dL (32-36) 08/02/20 06:14 RDW Std Deviation 49.9 fL (36.4-46.3) H 08/02/20 06:14 RDW Coeff of Mannie 14.4 % (11.5-14.5) 08/02/20 06:14 Plt Count 148 K/uL (130-400) 08/02/20 06:14 MPV 9.9 fL (7.4-10.4) 08/02/20 06:14 Immature Gran % (Auto) 0.4 % 08/01/20 07:01 Neut % (Auto) 63.0 % 08/01/20 07:01 Lymph % (Auto) 21.6 % 08/01/20 07:01 [place] % (Auto) 11.7 % 08/01/20 07:01 Eos % (Auto) 3.0 % 08/01/20 07:01 Baso % (Auto) 0.3 % 08/01/20 07:01 Neut # (Auto) 7.33 K/uL (1.4-6.5) H 08/01/20 07:01 Lymph # (Auto) 2.52 K/uL (1.2-3.4) 08/01/20 07:01 [place] # (Auto) 1.36 K/uL (0.11-0.59) H 08/01/20 07:01 Eos # (Auto) 0.35 K/uL (0-0.5) 08/01/20 07:01 Baso # (Auto) 0.03 K/uL (0-0.2) 08/01/20 07:01 Immature Gran # (Auto) 0.05 K/uL (0.00-0.02) H 08/01/20 07:01 Sodium 136 mmol/L (136-145) 08/09/20 08:38 Potassium 3.7 mmol/L (3.5-5.1) 08/09/20 08:38 Chloride 99 mmol/L (98-107) 08/09/20 08:38 Carbon Dioxide 33 mmol/L (21-32) H 08/09/20 08:38 Anion Gap 4.0 (3-11) 08/09/20 08:38 BUN 16 mg/dl (7-18) 08/09/20 08:38 Creatinine 0.85 mg/dl (0.6-1.4) 08/09/20 08:38 Est Cr Clr Drug Dosing 70.4 ml/min 08/09/20 08:38 Est GFR ( Amer) 96.7 ml/min 08/09/20 08:38 Est GFR (Non-Af Amer) 83.5 ml/min 08/09/20 08:38 BUN/Creatinine Ratio 19.1 (10-20) 08/09/20 08:38 Glucose 98 mg/dl (70-99) 08/09/20 08:38 Calcium 9.8 mg/dl (8.5-10.1) 08/09/20 08:38 Magnesium 2.1 mg/dl (1.8-2.4) 08/07/20 05:53 Total Bilirubin 0.4 mg/dl (0.2-1) 07/31/20 20:20 AST 16 U/L (15-37) 07/31/20 20:20 ALT 21 U/L (12-78) 07/31/20 20:20 Alkaline Phosphatase 95 U/L (45-117) 07/31/20 20:20 Total Protein 7.0 gm/dl (6.4-8.2) 07/31/20 20:20 Albumin 3.5 gm/dl (3.4-5.0) 07/31/20 20:20 Globulin 3.5 gm/dl (2.5-4.0) 07/31/20 20:20 Albumin/Globulin Ratio 1.0 (0.9-2) 07/31/20 20:20 Lipase 266 U/L (73-393) 07/31/20 20:20 Urine Color Yellow 08/03/20 13:10 Urine Appearance Clear (Clear) 08/03/20 13:10 Urine pH 7.0 (4.5-7.5) 08/03/20 13:10 Ur Specific Magnolia 1.012 (1.000-1.030) 08/03/20 13:10 Urine Protein Trace (Negative) H 08/03/20 13:10 Urine Glucose (UA) Negative (Negative) 08/03/20 13:10 Urine Ketones Negative (Negative) 08/03/20 13:10 Urine Blood Trace (Negative) H 08/03/20 13:10 Urine Nitrite Negative (Negative) 08/03/20 13:10 Urine Bilirubin Negative (Negative) 08/03/20 13:10 Urine Urobilinogen Negative (Negative) 08/03/20 13:10 Ur Leukocyte Esterase Negative (Negative) 08/03/20 13:10 Urine WBC (Auto) 1-5 /hpf (0-5) 08/03/20 13:10 Urine RBC (Auto) 0-4 /hpf (0-4) 08/03/20 13:10 U Hyaline Cast (Auto) 1-5 /lpf (0-5) 08/03/20 13:10 U Epithel Cells (Auto) 10-20 /lpf (0-5) H 08/03/20 13:10 Urine Bacteria (Auto) Negative (Negative) 08/03/20 13:10 COVID-19 Eval Order Covid19 IDNow [facility] 08/11/20 10:19 SARS-CoV-2 (PCR) NEGATIVE (Negative) 07/31/20 20:25 SARS-CoV-2, RNA, NAAT NEGATIVE (NEGATIVE) 08/11/20 10:[address] 07/31/20 18:03 CT OF THE CERVICAL SPINE CLINICAL HISTORY: Neck pain status post trauma COMPARISON STUDY: 10/05/2018 CT DOSE: 480.92 mGycm TECHNIQUE: CT scan of the cervical spine was performed from the skull base to the thoracic inlet. Images are reviewed in the axial, sagittal, and coronal planes. IV contrast was not administered for this examination. A dose lowering technique was utilized adhering to the principles of ALARA. FINDINGS: There are paranasal sinus inflammatory changes. The visualized portions of the lung apices reveal no evidence of pneumothorax. There is a subtle nondisplaced hairline fracture through the superior aspect of the left inferior C2 articulating facet There are multilevel degenerative changes IMPRESSION: 1. Subtle nondisplaced hairline fracture through the superior aspect of the left inferior C2 articulating facet ACT 112: Negative or not required by law. Electronically signed by: Wolfgang Rucker M.D. 07/31/2020 7:[address] 07/31/20 18:03 CT head/brain wo con CLINICAL HISTORY: Headache status post head trauma COMPARISON STUDY: 10/05/2018 TECHNIQUE: Axial CT of the brain is performed from the vertex to the skull base. IV contrast was not administered for this examination. A dose lowering technique was utilized adhering to the principles of ALARA. CT DOSE: 2071.62 mGycm FINDINGS: No intra or extra-axial mass lesions are visualized. There is no CT evidence of acute cortical infarction. There is no evidence of midline shift. There is no acute hemorrhage. No calvarial fractures are visualized. There are moderate white matter hypodensities likely on a small vessel basis. There is no evidence of pathologic ventricular dilatation. There are trace bilateral maxillary sinus air-fluid levels. There is opacification sphenoid sinus. There are multiple opacified ethmoid air cells. IMPRESSION: 1. No acute intracranial findings 2. Paranasal sinus inflammatory changes. ACT 112: Negative or not required by law. Electronically signed by: Wolfgang Rucker M.D. 07/31/2020 7:39 PM Shoulder X-Ray 07/31/20 18:03 XR shoulder LT min 2V routine CLINICAL HISTORY: Left shoulder pain status post trauma COMPARISON: None. DISCUSSION: No acute fractures or dislocations are visualized. Degenerative changes are present within the glenohumeral joint. There is mild narrowing of the humeral acromial distance raises the possibility of chronic rotator cuff degeneration. IMPRESSION: 1. Degenerative change 2. No acute fractures or dislocations identified ACT 112: Negative or not required by law. Electronically signed by: Wolfgang Rucker M.D. 07/31/2020 6:30 PM Neck CTA 07/31/20 20:09 NECK CTA HISTORY: neck fracture TECHNIQUE: Multiaxial CT images of the neck were performed following the intravenous administration of contrast to evaluate the major cervical vessels. Maximum intensity projection images were also obtained. All measurements were calculated based on NASCET criteria. A dose lowering technique was utilized adhering to the principles of ALARA. COMPARISON STUDY: Cervical spine CT 07/31/2020. FINDINGS: The aortic arch and proximal great vessels are widely patent. There is no significant stenosis, occlusion, or dissection identified within the bilateral common carotid, internal carotid, or vertebral arteries. Subtle fracture within the left inferior C2 articulating facet is again noted. IMPRESSION: No significant stenosis, occlusion, or dissection identified within the carotid or vertebral arteries. Nondisplaced left C2 facet fracture is again noted. ACT 112: Negative or not required by law. Electronically signed by: Byron Collazo M.D. 08/01/2020 7:43 AM Chest X-Ray 08/06/20 16:15 SINGLE VIEW CHEST CLINICAL HISTORY: Hypoxia. FINDINGS: 2 AP, portable, supine chest radiographs are compared to study dated 07/31/2020 and correlated with chest CT dated 12/23/2019. The examination is degraded by portable technique and patient rotation. The heart is top normal for projection. There is pulmonary vascular congestion. Chronic elevation of the right hemidiaphragm is similar to previous. There is bibasilar atelectasis. No large pleural effusion or pneumothorax is identified. A calcified granuloma seen in the right midlung. The skeletal structures are osteopenic. Degenerative change and scoliosis are noted in the thoracic spine. The bony thorax is grossly intact. IMPRESSION: 1. There is pulmonary vascular congestion. 2. No airspace consolidation or large pleural effusion is identified. ACT 112: Negative or not required by law. Electronically signed by: Hernan Arguello M.D. 08/06/2020 4:59 PM Hospital Course (1) Cervical spine fracture: Traumatic cervical spine fracture in situ status post fall, continue aspen collar follow up with ortho in 2 weeks (Patient to call ortho office at [phone] for appointment) PT/OT, transition to SNF on Tuesday (2) Acute shoulder pain: Left shoulder pain likely related to fall and osteoarthritis, strain vs sprain. Cont ICE and scheduled Tylenol. Was initially on scheduled Tramadol which improved the pain but were thought to cause some spasms and intermittent hallucinations per patient report. Tramadol was continued as needed. (3) Fall: PT/OT was continued throughout his stay. (4) Hypothyroidism: Continue levothyroxine per home regimen. (5) Depression: Continue home citalopram per home regimen. (6) CAD (coronary artery disease): h/o stents. Cont medical management with Plavix, and simvastatin. Also on Imdur. On propranolol for tremors. (7) Hypoxia: He requires 4LPM oxygen while sleeping. No SOB-seems to be around baseline oxygen needs. Had him on daily Lasix while admitted, and return to PRN at discharge with close primary care followup. (8) EZEQUIEL (obstructive sleep apnea): Per records, h/o asthmatic lung disease with severe EZEQUIEL (untreated) and a restrictive component secondary to chronically elevated right hemidiaphragm, nocturnal oxygen dependent. Continue oxygen supplementation (9) Lower urinary tract symptoms (LUTS): Urinary frequency, hesitancy, incomplete emptying and dribbling reported this admission. Trial of Flomax started. Continue this at discharge and follow-up [facility] as outpatient. (10) DVT prophylaxis: Lovenox given daily. Full Code Dispo-sent to [facility] until followup with Ortho spine as it would be difficult for him to manage ADLs with current activity restrictions. Spoke with daughter who was at bedside on day of discharge and reviewed the plan. Answered all questions to her satisfaction. DO Mar Rasmussen Hospitalist Total Time Total Time Spent Total Time Spent (In Minutes): 60 Total Time Includes: Examination of the Patient, Discharge Planning, Medication Reconciliation and Communication With Other Providers Discharge Plan Discharge Items Patient Disposition: Transfer Residential Fac Reason For Visit: FALL, SHOULDER PAIN Discharge Diagnosis: Cervical spine fracture Acute shoulder pain status post fall likely related to strain versus sprain Chronic hypoxic respiratory failure Activity: Resume your previous activity Non-emergency contact: Primary Care Provider and Surgeon Call non-emergency contact if: you have any medication questions, your symptoms worsen, your pain is not controlled, your pain is worsening, your pain is unusual for you and your pain is concerning for you Follow-up/Referrals: Fawad Espinal DO [Primary Care Provider] - Diet: Heart Healthy Diet Texture: Easy to Chew Addtl Attending Provider Instructions: Please keep Dellroy collar on at all times. Please follow-up with Dr. Neva Agudelo, spine surgeon at [facility] physician [facility] orthopedics for repeat assessment in 2 weeks from placement of collar. Please contact his office at [phone] to schedule an appointment. You have been started on daily Flomax to help with lower urinary tract symptoms reported during your hospital stay. Please follow-up with your primary care doctor regarding the efficacy of this medication. It is recommended that you follow-up with your primary care doctor within 1 week of discharge from the hospital stay to review how your Flomax is working for you, ensure you have a proper follow-up for your neck fracture, and ensure you are still doing well after your discharge home. You may need follow-up care for your left shoulder injury. For now, please continue using Acetaminophen, as needed Tramadol and ICE as needed. It was a pleasure taking care of you! Please call if you have any questions or problems. You can reach a [facility] hospitalist on duty at [facility] 24 hours a day by calling [phone]. Take care of yourself. DO Mar Rasmussen [facility] Hospitalist Pending Studies at Discharge: No Stand-Alone Forms: My [facility] Panna, Opioid Pain Management Skilled Items Patient informed of condition?: Yes DNR: No Discharge Level of Care: Skilled Communicable Disease: No Discharge Prognosis: Stable Lines: None Urinary Catheter: No Medications and DC Order Prescriptions: New tamsulosin 0.4 mg Capsule 0.4 mg PO QAM Qty: 30 RF: 0 tramadol 50 mg Tablet 50 mg PO Q6H PRN (Reason: pain) Qty: 20 RF: 0 Continued multivitamin Tablet 1 tab PO QAM RF: 0 furosemide 40 mg Tablet See Rx Instructions .ROUTE .COMPLEX PRN (Reason: Edema) RF: 0 citalopram 40 mg Tablet 40 mg PO QAM RF: 0 isosorbide mononitrate 30 mg Tablet Extended Release 24 Hr 30 mg PO QAM RF: 0 clopidogrel [Plavix] 75 mg Tablet 75 mg PO QAM RF: 0 nitroglycerin 0.4 mg Tablet, Sublingual 1 tab Sublingual UD PRN (Reason: Angina) RF: 0 zoledronic [id number]-[id number]-pediv [Reclast] 5 mg/100 mL Piggyback 1 dose IV YEARLY RF: 0 levothyroxine 100 mcg Capsule 100 mcg PO QAM RF: 0 Combivent Respimat 20-100 mcg/actuation Mist 1 puff INHALATION UD RF: 0 calcium carbonate-vitamin D3 [Calcium 600 + D(3)] 600 mg(1,500mg) -400 unit Tablet 1 tab PO DAILY RF: 0 simvastatin 20 mg tablet 10 mg PO HS RF: 0 propranolol 20 mg tablet 20 mg PO TID RF: 0 Discharge Orders: Discharge Order (Routine); Ordered 08/11/20 Ordered By: Nenita Myers Admission Data Admit Date/Time: 08/01/20 01:25 Attending Provider: Nenita Myers Admit Provider: Gian Rodriguez Primary Care Provider: Fawad Espinal Other Providers: Gian Rodriguez ; Neva Agudelo Other Interventions: Discharge Summary Assessment (RN) Last Done: 08/11/20 10:21
== END 2020-08-11 12:49 ==
LOC: ED 17:10 → 3N 08-01 01:25 → SUATTDRO 08-01 01:25 → INTOOBSV 08-01 01:25 → 3N 08-01 02:25
DX: J44.9 Chronic obstructive pulmonary disease, unspecified; R39.9 Unspecified symptoms and signs involving the genitourinary system; M19.012 Primary osteoarthritis, left shoulder; I11.0 Hypertensive heart disease with heart failure; E03.9 Hypothyroidism, unspecified; G47.33 Obstructive sleep apnea (adult) (pediatric); Z20.822 Contact with and (suspected) exposure to COVID-19; I50.9 Heart failure, unspecified; Z79.899 Other long term (current) drug therapy; I25.2 Old myocardial infarction; Z95.818 Presence of other cardiac implants and grafts; S12.101A Unspecified nondisplaced fracture of second cervical vertebra, initial encounter for closed fracture; K21.9 Gastro-esophageal reflux disease without esophagitis; G25.0 Essential tremor; W19.XXXA Unspecified fall, initial encounter; E78.5 Hyperlipidemia, unspecified; Z79.02 Long term (current) use of antithrombotics/antiplatelets

== ENCOUNTER 2021-07-03 07:18 | Inpatient (IN) ==
[2021-07-03] MEDS ORDERED: CEFEPIME 2,000 MG/20 ML VIAL IV STA (07:31)
--- NOTE | 2021-07-03 07:38 | Emergency Department Note ---
History of Present Illness General Chief complaint: Illness Time Seen by Provider: 07/03/21 07:21 History of Present Illness Maximum Pain Intensity: 5 30-year-old male presents to the ED with a chief complaint of generalized weakness and low oxygen saturations on his 4 L of home oxygen. He states that he originally had some left lower jaw pain and tooth ache yesterday. He states that he had some chills and a headache as well. He took some Tylenol for his symptoms. He thought he might be developing a tooth infection. He subsequently called EMS today because of those symptoms. He was also feeling very weak. He was too weak to walk according to EMS. The patient has felt a little short of breath and had some chest tightness as well. EMS found him to have oxygen saturations of 78% on his 4 L. They did give him a DuoNeb treatment as well as some aspirin p.o. and some Zofran. His saturations are somewhat improved here. He overall does not feel terrible. EMS found him to have a temperature of 100.9. He is 37.8 here. No additional complaints. No significant cough. Patient states that his breathing feels relatively normal. No abdominal pains. No vomiting or diarrhea. Home Medications Medication Instructions Recorded Confirmed Type citalopram 40 mg tablet 40 mg PO QAM 03/14/18 07/03/21 History clopidogrel 75 mg tablet (Plavix) 75 mg PO QAM 03/14/18 07/03/21 History furosemide 40 mg tablet See Rx Instructions .ROUTE 03/14/18 07/03/21 History .COMPLEX PRN ipratropium 20 mcg-albuterol 100 1 puff INHALATION UD 03/14/18 07/03/21 History mcg/actuation mist for inhalation (Combivent Respimat) isosorbide mononitrate 30 mg 30 mg PO QAM 03/14/18 07/03/21 History tablet,extended release 24 hr levothyroxine 100 mcg capsule 100 mcg PO QAM 03/14/18 07/03/21 History multivitamin 1 tab PO QAM 03/14/18 07/03/21 History nitroglycerin 0.4 mg sublingual 1 tab SUBLINGUAL UD PRN 03/14/18 07/03/21 History tablet zoledronic acid 5 mg/100 mL in 1 dose IV YEARLY 03/14/18 07/03/21 History mannitol 5 %-water intravenous piggybck (Reclast) calcium carbonate 600 mg-vitamin 1 tab PO DAILY 12/23/19 07/03/21 History D3 10 mcg (400 unit) tablet (Calcium 600 + D(3)) simvastatin 20 mg tablet 10 mg PO HS 12/23/19 07/03/21 History propranolol 20 mg tablet 20 mg PO TID 07/31/20 07/03/21 History tamsulosin 0.4 mg capsule 0.4 mg PO QAM #30 cap 08/11/20 07/03/21 Rx tramadol 50 mg tablet 50 mg PO Q6H PRN #20 tab 08/11/20 07/03/21 Rx acetaminophen 500 mg tablet 500 mg PO Q6H PRN 07/03/21 07/03/21 History benzonatate 100 mg capsule 100 mg PO TID PRN 07/03/21 07/03/21 History fluticasone propionate 50 2 spray INTRANASAL QAM 07/03/21 07/03/21 History mcg/actuation nasal spray,suspension ipratropium 20 mcg-albuterol 100 1 puff INHALATION QID 07/03/21 07/03/21 History mcg/actuation mist for inhalation oxycodone-acetaminophen 5 mg-325 1 tab PO Q8H PRN 07/03/21 07/03/21 History mg tablet pantoprazole 40 mg tablet,delayed 40 mg PO DAILY 07/03/21 07/03/21 History release rosuvastatin 5 mg tablet 5 mg PO DAILY 07/03/21 07/03/21 History Allergies Allergy/AdvReac Type Severity Reaction Status Date / Time grapefruit Allergy Unknown WAS TOLD Verified 07/03/21 08:05 NOT TO TAKE No Known Drug Allergies Allergy Unknown . Verified 09/12/20 13:05 Past Med/Surg History Medical History Acute shoulder pain CAD (coronary artery disease) Cervical spine fracture Chronic back pain Chronic obstructive pulmonary disease Depression Depression Fall Familial tremor reason for propranolol GERD (gastroesophageal reflux disease) HTN (hypertension) Hyperlipidemia Hypertension Hypothyroidism Hypothyroidism Kidney stones Myocardial Infarction 2009 On anticoagulant therapy plavix daily On home oxygen therapy 3L N/C at hs EZEQUIEL (obstructive sleep apnea) Scoliosis Sleep apnea uses 3L N/C hs SOB (shortness of breath) on exertion with wheezing Tinnitus of both ears Surgical History History of bilateral cataract extraction History of cardiac cath 2009 @ [facility] with 1 stent--follows with Dr. Ramirez History of colonoscopy History of esophagogastroduodenoscopy (EGD) History of heart artery stent x1 2010--[facility] History of lithotripsy History of open reduction and internal fixation (ORIF) procedure left foot fx/pinky toe fx--hardware in place History of testicular surgery "sac full of blood in testicle drained at 26 yrs old" History of tonsillectomy History of wisdom tooth extraction Hx of right inguinal hernia repair Hx of vasectomy Stented coronary artery "bare metal stent to LAD 2008" Family History Sister Family history of reaction to anesthesia nausea/vomiting Mother Family history of diabetes mellitus Social History Smoking Status: Former smoker Tobacco Type: Cigarettes Second Hand Exposure: No; Hx Alcohol Use: Yes Alcohol type: hard liquor Hx Substance Use: No Preferred Language: Palestinian Communication Ability: Effective 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: No Beliefs That Will Affect Care: None marital status: Current Living Situation: Alone How many Children do You have: 1 Feels Safe at Home: Yes Assistive Devices: Walker Review of Systems A total of 10 systems reviewed and were otherwise negative Physical Exam Vital Signs Vital Signs - 24 hr 07/03/21 07:18 07/03/21 07:30 07/03/21 07:45 Temperature 37.8 C H Temperature Source Oral Pulse Rate 65 63 Respiratory Rate 20 21 Blood Pressure 140/61 129/83 Blood Pressure Mean 87 98 Pulse Oximetry 96 94 95 Oxygen Delivery Method Nasal Cannula Nasal Cannula Nasal Cannula Oxygen Flow Rate 4 4 4 Sepsis Recent Fever Within 48 Hours No Sepsis New/Unexplained Change in Mental Status No Sepsis Action Taken by Nursing No Action Required 07/03/21 08:00 07/03/21 08:30 Temperature Temperature Source Pulse Rate 62 62 Respiratory Rate 20 19 Blood Pressure 120/78 133/82 Blood Pressure Mean 92 99 Pulse Oximetry 93 94 Oxygen Delivery Method Nasal Cannula Nasal Cannula Oxygen Flow Rate 4 4 Sepsis Recent Fever Within 48 Hours Sepsis New/Unexplained Change in Mental Status Sepsis Action Taken by Nursing CONSTITUTIONAL/VITAL SIGNS: Reviewed / noted above. GENERAL: Non-toxic in appearance. INTEGUMENTARY: Warm, dry, and Hostetter. HEAD: Normocephalic. EYES: without scleral icterus or trauma. ENT/OROPHARYNX: clear and moist. LYMPHADENOPATHY/NECK: Is supple without lymphadenopathy or meningismus. RESPIRATORY: Clear to auscultation bilaterally. No increased work of breathing. CARDIOVASCULAR: Regular rate and rhythm. GI/ABDOMEN: Soft and nontender. No organomegaly or pulsatile mass. EXTREMITIES: Warm and well perfused. BACK: No CVA tenderness. NEUROLOGICAL: Intact without focal deficits. PSYCHIATRIC: normal affect. MUSCULOSKELETAL: Normally developed with good muscle tone. TRIAGE NURSING DOCUMENTATION REVIEWED. Course Administered Medications Discontinued Medications Cefepime HCl (Maxipime) 2,000 mg in 20 mls @ 5 mls/min IV NOW STA; Protocol Stop: 07/03/21 07:34 Last Admin: 07/03/21 08:07 Dose: 5 mls/min Documented by: [id number] Medical Decision Making Differential Diagnosis Differential includes acute coronary syndrome, myocardial infarction, CVA, TIA, anemia, infection, pneumonia, UTI, pyelonephritis, poor nutrition, dehydration, electrolyte disturbance,hypoglycemia. Medical Records Attestation: I reviewed the patient's medical records. Home Medications Current Medication List: was personally reviewed by me Laboratory Data Attestation: I reviewed the patient's lab results. Result diagrams: 07/03/21 07:28 07/03/21 07:28 Lab Results 07/03/21 07/03/21 07/03/21 Range/Units 07:28 07:28 07:35 WBC 13.67 H (4.8-10.8) K/uL RBC 4.74 (4.7-6.1) M/uL Hgb 15.3 (14.0-18.0) g/dL Hct 45.2 (42-52) % MCV 95.4 (80-100) fL MCH 32.3 (25-34) pg MCHC 33.8 (32-36) g/dL RDW Std Deviation 48.5 H (36.4-46.3) fL RDW Coeff of Mannie 13.9 (11.5-14.5) % Plt Count 177 (130-400) K/uL MPV 9.9 (7.4-10.4) fL Immature Gran % (Auto) 0.3 % Neut % (Auto) 71.0 % Lymph % (Auto) 17.0 % [place] % (Auto) 9.5 % Eos % (Auto) 2.1 % Baso % (Auto) 0.1 % Neut # (Auto) 9.70 H (1.4-6.5) K/uL Lymph # (Auto) 2.32 (1.2-3.4) K/uL [place] # (Auto) 1.30 H (0.11-0.59) K/uL Eos # (Auto) 0.29 (0-0.5) K/uL Baso # (Auto) 0.02 (0-0.2) K/uL Immature Gran # (Auto) 0.04 H (0.00-0.02) K/uL Sodium 139 (136-145) mmol/L Potassium 3.9 (3.5-5.1) mmol/L Chloride 98 (98-107) mmol/L Carbon Dioxide 34 H (21-32) mmol/L Anion Gap 7 (3-11) BUN 9 (6-23) mg/dl Creatinine 0.98 (0.6-1.4) mg/dl Est Cr Clr Drug Dosing 60.1 ml/min Est GFR ( Amer) 84.6 ml/min Est GFR (Non-Af Amer) 73.0 ml/min BUN/Creatinine Ratio 9.2 L (10-20) Glucose 105 H (70-99(Fasting)) mg/dl Lactate (0.4-2.0) mmol/L Calcium 9.7 (8.5-10.1) mg/dl Total Bilirubin 0.8 (0.2-1.0) mg/dl AST 20 (13-39) U/L ALT 14 (7-52) U/L Alkaline Phosphatase 85 (34-104) U/L Troponin I High Sens 9.6 (0-20) pg/ml Total Protein 7.5 (6.0-8.3) gm/dl Albumin 4.3 (3.4-5.0) gm/dl Globulin 3.2 (2.5-4.0) gm/dl Albumin/Globulin Ratio 1.3 (0.9-2) Urine Color Yellow Urine Appearance Clear (Clear) Urine pH 8.0 H (4.5-7.5) Ur Specific [place] 1.007 (1.000-1.030) Urine Protein Negative (Negative) Urine Glucose (UA) Negative (Negative) Urine Ketones Negative (Negative) Urine Blood 1+ H (Negative) Urine Nitrite Negative (Negative) Urine Bilirubin Negative (Negative) Urine Urobilinogen Negative (Negative) Ur Leukocyte Esterase Negative (Negative) Urine WBC (Auto) 1-5 (0-5) /hpf Urine RBC (Auto) 5-10 H (0-4) /hpf U Hyaline Cast (Auto) 0 (0-5) /lpf U Epithel Cells (Auto) 0-5 (0-5) /lpf Urine Bacteria (Auto) Negative (Negative) SARS-CoV-2, RNA, NAAT (NEGATIVE) 07/03/21 07/03/21 Range/Units 07:54 08:30 WBC (4.8-10.8) K/uL RBC (4.7-6.1) M/uL Hgb (14.0-18.0) g/dL Hct (42-52) % MCV (80-100) fL MCH (25-34) pg MCHC (32-36) g/dL RDW Std Deviation (36.4-46.3) fL RDW Coeff of Mannie (11.5-14.5) % Plt Count (130-400) K/uL MPV (7.4-10.4) fL Immature Gran % (Auto) % Neut % (Auto) % Lymph % (Auto) % [place] % (Auto) % Eos % (Auto) % Baso % (Auto) % Neut # (Auto) (1.4-6.5) K/uL Lymph # (Auto) (1.2-3.4) K/uL [place] # (Auto) (0.11-0.59) K/uL Eos # (Auto) (0-0.5) K/uL Baso # (Auto) (0-0.2) K/uL Immature Gran # (Auto) (0.00-0.02) K/uL Sodium (136-145) mmol/L Potassium (3.5-5.1) mmol/L Chloride (98-107) mmol/L Carbon Dioxide (21-32) mmol/L Anion Gap (3-11) BUN (6-23) mg/dl Creatinine (0.6-1.4) mg/dl Est Cr Clr Drug Dosing ml/min Est GFR ( Amer) ml/min Est GFR (Non-Af Amer) ml/min BUN/Creatinine Ratio (10-20) Glucose (70-99(Fasting)) mg/dl Lactate 0.9 (0.4-2.0) mmol/L Calcium (8.5-10.1) mg/dl Total Bilirubin (0.2-1.0) mg/dl AST (13-39) U/L ALT (7-52) U/L Alkaline Phosphatase (34-104) U/L Troponin I High Sens (0-20) pg/ml Total Protein (6.0-8.3) gm/dl Albumin (3.4-5.0) gm/dl Globulin (2.5-4.0) gm/dl Albumin/Globulin Ratio (0.9-2) Urine Color Urine Appearance (Clear) Urine pH (4.5-7.5) Ur Specific [place] (1.000-1.030) Urine Protein (Negative) Urine Glucose (UA) (Negative) Urine Ketones (Negative) Urine Blood (Negative) Urine Nitrite (Negative) Urine Bilirubin (Negative) Urine Urobilinogen (Negative) Ur Leukocyte Esterase (Negative) Urine WBC (Auto) (0-5) /hpf Urine RBC (Auto) (0-4) /hpf U Hyaline Cast (Auto) (0-5) /lpf U Epithel Cells (Auto) (0-5) /lpf Urine Bacteria (Auto) (Negative) SARS-CoV-2, RNA, NAAT NEGATIVE (NEGATIVE) Imaging Data Radiologist's Impression: Chest X-Ray 07/03/21 07:31 XR chest 1V portable CLINICAL HISTORY: SEPSIS TECHNIQUE: Single frontal radiograph of the chest was obtained. Comparison: Comparison is made to chest radiograph 08/06/2020 FINDINGS: No lines and tubes are seen. The cardiomediastinal silhouette is normal. Lungs are underinflated but clear. No evidence of pleural effusion or pneumothorax. IMPRESSION: Low lung volumes without evidence of acute abnormality. ACT 112: Negative or not required by law. Electronically signed by: Luis Rajan M.D. 07/03/2021 8:15 AM ECG Data Attestation: I personally reviewed and interpreted this ECG as follows: Additional Comments: 12 Lead EKG: Per my interpretation shows normal sinus rhythm at a rate of 62. No ST elevation. No PVCs. Normal QTC. MDM Narrative 80-year-old male presents with generalized weakness, concerns about some jaw discomfort, fever and hypoxia on his 4 L of oxygen at home. Exam was relatively benign. No obvious dental abscess or facial swelling. He does have some dental decay issues that has been ongoing. Lungs are clear. Reducible umbilical hernia. No tenderness in the abdomen. No rashes. The patient states that he still drives. He goes to [facility] physical therapy weekly. Twelve-lead EKG shows a sinus rhythm without ischemic changes. Troponin was negative. Chest x-ray was negative for acute disease. White blood cell count is mildly elevated. Metabolic panel was unremarkable. Urine did not show infection. The patient's fever could be related to a subtle pneumonia that not present on chest x-ray or possibly related to his dental complaint. He was treated empirically with IV cefepime. The patient will be seen by the hospitalist primarily because of significant weakness and ambulatory dysfunction and inability to walk to walk and he lives alone. Impression & Plan Generalized muscle weakness, Fever Discharge Plan Visit Data Chief Complaint: Illness ED Provider: Phillip Reeves Discharge Problem: Generalized muscle weakness, Fever Patient Disposition: Being Evaluated by Hospitalist Forms Stand Alone Forms: My [facility] [address] Prescriptions Prescriptions: No Action multivitamin Tablet 1 tab PO QAM RF: 0 furosemide 40 mg Tablet See Rx Instructions .ROUTE .COMPLEX PRN (Reason: Edema) RF: 0 citalopram 40 mg Tablet 40 mg PO QAM RF: 0 isosorbide mononitrate 30 mg Tablet Extended Release 24 Hr 30 mg PO QAM RF: 0 clopidogrel [Plavix] 75 mg Tablet 75 mg PO QAM RF: 0 nitroglycerin 0.4 mg Tablet, Sublingual 1 tab Sublingual UD PRN (Reason: Angina) RF: 0 zoledronic [id number] [Reclast] 5 mg/100 mL Piggyback 1 dose IV YEARLY RF: 0 levothyroxine 100 mcg Capsule 100 mcg PO QAM RF: 0 Combivent Respimat 20-100 mcg/actuation Mist 1 puff INHALATION UD RF: 0 calcium carbonate-vitamin D3 [Calcium 600 + D(3)] 600 mg(1,500mg) -400 unit Tablet 1 tab PO DAILY RF: 0 simvastatin 20 mg tablet 10 mg PO HS RF: 0 propranolol 20 mg tablet 20 mg PO TID RF: 0 tamsulosin 0.4 mg Capsule 0.4 mg PO QAM Qty: 30 RF: 0 tramadol 50 mg Tablet 50 mg PO Q6H PRN (Reason: pain) Qty: 20 RF: 0 acetaminophen 500 mg Tablet 500 mg PO Q6H PRN (Reason: Pain) RF: 0 oxycodone-acetaminophen 5-325 mg tablet 1 tab PO Q8H PRN (Reason: Pain) RF: 0 benzonatate 100 mg capsule 100 mg PO TID PRN (Reason: Cough) RF: 0 pantoprazole 40 mg tablet,delayed release (DR/EC) 40 mg PO DAILY RF: 0 fluticasone propionate 50 mcg/actuation spray,suspension 2 spray INTRANASAL QAM RF: 0 rosuvastatin 5 mg tablet 5 mg PO DAILY RF: 0 ipratropium-albuterol 20-100 mcg/actuation Mist 1 puff INHALATION QID RF: 0 Referrals Referrals: Fawad Espinal DO [Physician] -
[2021-07-03 07:58] LABS: Basophils # (auto) 0.02 K/uL (0-0.2); Basophils % (auto) 0.1 %; Eosinophils # (auto) 0.29 K/uL (0-0.5); Eosinophils % (auto) 2.1 %; Hematocrit (blood only) 45.2 % (42-52); Hemoglobin 15.3 g/dL (14.0-18.0); Immature Granulocytes # (auto) 0.04 K/uL (0.00-0.02); Immature Granulocytes % (auto) 0.3 %; Lymphocytes # (auto) 2.32 K/uL (1.2-3.4); Mean Corpuscular Hemoglobin 32.3 pg (25-34); Mean Corpuscular Hgb Conc 33.8 g/dL (32-36); Mean Corpuscular Volume 95.4 fL (80-100); Mean Platelet Volume 9.9 fL (7.4-10.4); Monocytes % (auto) 9.5 %; Platelet Count 177 K/uL (130-400); RDW Coefficient of Variation 13.9 % (11.5-14.5); RDW Standard Deviation 48.5 fL (36.4-46.3); Red Blood Count 4.74 M/uL (4.7-6.1); White Blood Count 13.67 K/uL (4.8-10.8)
[2021-07-03 08:08] LABS: Appearance Urine Clear (Clear); Bacteria Urine Automated Negative (Negative); Bilirubin Urine Negative (Negative); Blood Urine 1+ (Negative); Cast Urine Automated 0 /lpf (0-5); Color Urine Yellow; Epithelial Cell Urine Auto 0-5 /lpf (0-5); Glucose Urine UA Negative (Negative); Ketones Urine Negative (Negative); Leukocyte Esterase Urine Negative (Negative); Nitrite Urine Negative (Negative); Protein Urine Negative (Negative); Specific Gravity Urine 1.007 (1.000-1.030); Urobilinogen Urine Negative (Negative)
[2021-07-03 08:09] LABS: Troponin I High Sensitivity 9.6 pg/ml (0-20)
--- NOTE | 2021-07-03 08:16 | XRay Report ---
XR chest 1V portable CLINICAL HISTORY: SEPSIS TECHNIQUE: Single frontal radiograph of the chest was obtained. Comparison: Comparison is made to chest radiograph 08/06/2020 FINDINGS: No lines and tubes are seen. The cardiomediastinal silhouette is normal. Lungs are underinflated but clear. No evidence of pleural effusion or pneumothorax. IMPRESSION: Low lung volumes without evidence of acute abnormality. ACT 112: Negative or not required by law. Electronically signed by: Luis Rajan M.D. 07/03/2021 8:15 AM
[2021-07-03 08:21] LABS: Albumin Globulin Ratio 1.3 (0.9-2); Albumin Level 4.3 gm/dl (3.4-5.0); BUN Creatinine Ratio 9.2 (10-20); Bilirubin,Total 0.8 mg/dl (0.2-1.0); Calcium 9.7 mg/dl (8.5-10.1); Creatinine Clr Calc Pharmacy 60.1 ml/min; Est GFR (African American) 84.6 ml/min; Globulin 3.2 gm/dl (2.5-4.0); Potassium 3.9 mmol/L (3.5-5.1); Total Protein 7.5 gm/dl (6.0-8.3)
[2021-07-03] MEDS ORDERED: traMADol HCL 50 MG TABLET PO PRN (10:13)
[2021-07-03] MEDS ORDERED: BENZONATATE 100 MG CAPSULE PO PRN (10:13)
[2021-07-03] MEDS ORDERED: ACETAMINOPHEN 500 MG TAB PO PRN (10:13)
[2021-07-03] MEDS ORDERED: FUROSEMIDE 40 MG TAB PO PRN (10:13)
[2021-07-03] MEDS ORDERED: NITROGLYCERIN SL 0.4 MG/TAB TAB SL PRN (10:13)
[2021-07-03] MEDS ORDERED: ZOLEDRONIC ACID 5 MG/100 ML VIAL IV SCH (10:15)
[2021-07-03] MEDS ORDERED: IPRATROPIUM BROMIDE/ALBUTEROL respimat INH INH SCH ×2 (10:15→13:00)
[2021-07-03] MEDS ORDERED: OPTIRAY 320 100ml IV ONE (10:23)
--- NOTE | 2021-07-03 10:24 | History & Physical Report ---
Date of Service July 03, 2021 Assessment & Plan (1) Fever: (2) Pain, dental: Plan: -Admit to [facility] -Obtain CT of the face with contrast to rule out dental abscess, possible that underlying abscesses causing worsening pain, weakness, fatigue, consider oral maxillofacial surgery consult -Received dose of cefepime in the ER, continue on IV Unasyn -Febrile with T-max here 37.8, continue Tylenol -Follow blood cultures -UA appears to be clean, CXR is clear, possible that there is underlying pneumonia slightly with patient history of cough starting 1 week ago and small amount of sputum production. Unasyn would cover this as well. Can consider follow-up chest x-ray or CT of the chest if no improvement in symptoms. He is currently saturating at 92% on his home dose of 4L via NC and has been since arriving here. He got 1 nebulizer treatment by EMS in route to hospital. (3) Dyslipidemia: Plan: -Continue rosuvastatin (4) GERD (gastroesophageal reflux disease): Plan: -Continue pantoprazole, history of recent EGD with stretching of esophagus here at [facility], currently no issues (5) Essential tremor: Plan: -Continue propranolol, worse currently with increased weakness and fever -PT/OT consults ordered (6) COPD (chronic obstructive pulmonary disease): Plan: -History of such may continue inhalers, not on any steroids -Continue 4L via NC (7) CAD (coronary artery disease): Plan: - Follows with cardiology, Job Bravo as outpatient - Continue Plavix, not on baby aspirin for some time now -Continue Imdur, propranolol (more so for essential tremor) - Continue lasix, patient took this morning dose, currently euvolemic (8) Hypothyroidism: Plan: -Continue levothyroxine (9) HTN (hypertension): Plan: -Continue medications as above DVT PPx: - teds, scds, Plavix CODE: Full code Dispo: From home, likely to remain in the hospital x 1-2 days History of Present Illness Chief Complaint: Weakness, mouth pain, hypoxia Primary Care Provider: Jennifer Sarkar MD This is a 80-year-old male with PMHx of COPD, vitamin D deficiency, essential tremor, GERD, dyslipidemia, spinal stenosis, who presents to the ER after calling the ambulance this morning from home due to increased weakness. He reports that he has had several days of left lower jaw pain which she has been medicating Tylenol with, he has had a low-grade fever, and increasing weakness where he felt that he was unsteady to walk even with his cane. Patient lives at home by himself and typically performs all ADLs without difficulty. He notes that he has been in to see a dentist recently and has had several teeth removed. He has not been on any antibiotics recently. His p.o. intake has been poor due to mouth pain, but he has been maintaining drinking fluids. He reports that last night he had been much difficulty sleeping due to pain in side of his face, and it has been swollen on the left lower jaw. He has been using Tylenol [id number] for the past 2 days due to pain. He denies fever specifically but upon EMS presentation was 100.4. He admits to having a cough last week and is still bringing up small amounts of phlegm, specifically in the morning. He wears his 4 L O2 all the time, and states that he does take breaks here and there when his O2 sats are high enough. He maintains them around 92% at home with his pulse oximeter. Patient took his morning levothyroxine and Lasix however did not get any of his other medications yet today. EMS presented to his home and found that he was hypoxic at 79% and received a nebulizer treatment in the ambulance in route to the hospital. He has been saturating at 94% on his typical 4 L which he wears at all times since being here. Febrile at 37.8. CXR is clear, no leukocytosis. Concern for possible dental abscess so will obtain a CT of the face with contrast. Allergies Allergy/AdvReac Type Severity Reaction Status Date / Time grapefruit Allergy Unknown WAS TOLD Verified 07/03/21 08:05 NOT TO TAKE No Known Drug Allergies Allergy Unknown . Verified 09/12/20 13:05 Home Medications Medication Instructions Recorded Confirmed Type citalopram 40 mg tablet 40 mg PO QAM 03/14/18 07/03/21 History clopidogrel 75 mg tablet (Plavix) 75 mg PO QAM 03/14/18 07/03/21 History ipratropium 20 mcg-albuterol 100 1 puff INHALATION UD 03/14/18 07/03/21 History mcg/actuation mist for inhalation (Combivent Respimat) isosorbide mononitrate 30 mg 30 mg PO QAM 03/14/18 07/03/21 History tablet,extended release 24 hr levothyroxine 100 mcg capsule 100 mcg PO QAM 03/14/18 07/03/21 History multivitamin 1 tab PO QAM 03/14/18 07/03/21 History nitroglycerin 0.4 mg sublingual 1 tab SUBLINGUAL UD PRN 03/14/18 07/03/21 History tablet zoledronic acid 5 mg/100 mL in 1 dose IV YEARLY 03/14/18 07/03/21 History mannitol 5 %-water intravenous piggybck (Reclast) calcium carbonate 600 mg-vitamin 1 tab PO DAILY 12/23/19 07/03/21 History D3 10 mcg (400 unit) tablet (Calcium 600 + D(3)) simvastatin 20 mg tablet 10 mg PO HS 12/23/19 07/03/21 History propranolol 20 mg tablet 20 mg PO TID 07/31/20 07/03/21 History tamsulosin 0.4 mg capsule 0.4 mg PO QAM #30 cap 08/11/20 07/03/21 Rx acetaminophen 500 mg tablet 500 mg PO Q6H PRN 07/03/21 07/03/21 History benzonatate 100 mg capsule 100 mg PO TID PRN 07/03/21 07/03/21 History fluticasone propionate 50 2 spray INTRANASAL QAM 07/03/21 07/03/21 History mcg/actuation nasal spray,suspension furosemide 20 mg PO QPM 07/03/21 07/03/21 History furosemide 40 mg tablet 40 mg PO QAM 07/03/21 07/03/21 History ipratropium 20 mcg-albuterol 100 1 puff INHALATION QID 07/03/21 07/03/21 History mcg/actuation mist for inhalation oxycodone-acetaminophen 5 mg-325 1 tab PO Q8H PRN 07/03/21 07/03/21 History mg tablet pantoprazole 40 mg tablet,delayed 40 mg PO DAILY 07/03/21 07/03/21 History release rosuvastatin 5 mg tablet 5 mg PO DAILY 07/03/21 07/03/21 History Past Med/Surg History Medical History (Updated 07/03/21 @ 10:32 by Gracia Singh PA-C) Acute shoulder pain CAD (coronary artery disease) Cervical spine fracture Chronic back pain Chronic obstructive pulmonary disease Depression Depression Fall Familial tremor reason for propranolol GERD (gastroesophageal reflux disease) HTN (hypertension) Hyperlipidemia Hypertension Hypothyroidism Hypothyroidism Kidney stones Myocardial Infarction 2009 On anticoagulant therapy plavix daily On home oxygen therapy 3L N/C at hs EZEQUIEL (obstructive sleep apnea) Scoliosis Sleep apnea uses 3L N/C hs SOB (shortness of breath) on exertion with wheezing Tinnitus of both ears Surgical History History of bilateral cataract extraction History of cardiac cath 2009 [place] [facility] [place]--follows with Dr. Ramirez History of colonoscopy History of esophagogastroduodenoscopy (EGD) History of heart artery stent x1 2009--[facility] [place] History of lithotripsy History of open reduction and internal fixation (ORIF) procedure left foot fx/pinky toe fx--hardware in place History of testicular surgery "sac full of blood in testicle drained at 26 yrs old" History of tonsillectomy History of wisdom tooth extraction Hx of right inguinal hernia repair Hx of vasectomy Stented coronary artery "bare metal stent to LAD 2008" Family History Sister Family history of reaction to anesthesia nausea/vomiting Mother Family history of diabetes mellitus Social History Smoking Status: Former smoker Tobacco Type: Cigarettes Second Hand Exposure: No; Hx Alcohol Use: Yes Alcohol type: hard liquor Hx Substance Use: No Preferred Language: Marshallese Communication Ability: Effective Accounts Receivable Administrator Required: No Beliefs That Will Affect Care: None marital status: Current Living Situation: Alone How many Children do You have: 1 Feels Safe at Home: Yes Assistive Devices: Walker Review of Systems Review of Systems: Constitutional: No fever, sweats or chills Eyes: No diplopia, no worsening or blurred vision ENT: normal hearing, no trouble swallowing, + left lower jaw pain, left-sided face swelling Respiratory: + cough, +sputum in the morning, no dyspnea at rest or on exertion Cardiovascular: No chest pain, tightness or palpitations Abdomen: No pain, nausea, vomiting, diarrhea or constipation Musculoskeletal: No joint pain, calf pain, swelling Neurologic: + weakness, + essential tremor at baseline currently worse today due to weakness, no numbness/tingling, + balance problems, uses cane at baseline Psychiatric: No anxiety or depression Skin: No rash or itch Physical Exam Physical Exam: General: awake, alert, no apparent distress Head: Normocephalic, atraumatic ENT: PERRL, EOMI, no pharyngeal exudate, mucous membranes moist, Left lower jaw without obvious abscess, missing second molar, tenderness to palpation in Left submandibular region, + mild edema of the left jaw Chest: Clear to auscultation, on 4L via NC, +expiratory wheeze in R benavides, no rales or rhonchi Cardiac: Regular rate and rhythm, no murmur, no JVD, normal peripheral pulses, good capillary refill Abdominal: NABS x 4 quadrants, soft, nondistended, nontender to palpation, no rebound or guarding Extremities: Normal inspection, no peripheral edema or erythema, calfs nontender to palpation Psych: Normal mood and affect Neuro: AAO x 3, strength intact bilaterally and rated 5/5, no motor deficits, speech is clear, no peripheral sensory deficits Results & Data Results & Data ([facility]) Vital Signs (Past 12 Hours) Vital Signs Temp Pulse Resp BP Pulse Ox 07/03/21 08:30 62 19 133/82 94 07/03/21 08:00 62 20 120/78 93 07/03/21 07:45 95 07/03/21 07:30 63 21 129/83 94 07/03/21 07:18 37.8 C H 65 20 140/61 96 Laboratory Results 07/03/21 07:54 Aerobic Blood Culture - Pending Blood Anaerobic Blood Culture - Pending 07/03/21 07:54 Aerobic Blood Culture - Pending Blood Anaerobic Blood Culture - Pending 07/03/21 07/03/21 07/03/21 08:30 07:54 07:35 WBC RBC Hgb Hct MCV MCH MCHC RDW Std Deviation RDW Coeff of Mannie Plt Count MPV Immature Gran % (Auto) Neut % (Auto) Lymph % (Auto) [place] % (Auto) Eos % (Auto) Baso % (Auto) Neut # (Auto) Lymph # (Auto) [place] # (Auto) Eos # (Auto) Baso # (Auto) Immature Gran # (Auto) Sodium Potassium Chloride Carbon Dioxide Anion Gap BUN Creatinine Est Cr Clr Drug Dosing Est GFR ( Amer) Est GFR (Non-Af Amer) BUN/Creatinine Ratio Glucose Lactate 0.9 Calcium Total Bilirubin AST ALT Alkaline Phosphatase Troponin I High Sens Total Protein Albumin Globulin Albumin/Globulin Ratio Urine Color Yellow Urine Appearance Clear Urine pH 8.0 H Ur Specific Fidelity 1.007 Urine Protein Negative Urine Glucose (UA) Negative Urine Ketones Negative Urine Blood 1+ H Urine Nitrite Negative Urine Bilirubin Negative Urine Urobilinogen Negative Ur Leukocyte Esterase Negative Urine WBC (Auto) 1-5 Urine RBC (Auto) 5-10 H U Hyaline Cast (Auto) 0 U Epithel Cells (Auto) 0-5 Urine Bacteria (Auto) Negative SARS-CoV-2, RNA, NAAT NEGATIVE 07/03/21 07/03/21 07:28 07:28 WBC 13.67 H RBC 4.74 Hgb 15.3 Hct 45.2 MCV 95.4 MCH 32.3 MCHC 33.8 RDW Std Deviation 48.5 H RDW Coeff of Mannie 13.9 Plt Count 177 MPV 9.9 Immature Gran % (Auto) 0.3 Neut % (Auto) 71.0 Lymph % (Auto) 17.0 [place] % (Auto) 9.5 Eos % (Auto) 2.1 Baso % (Auto) 0.1 Neut # (Auto) 9.70 H Lymph # (Auto) 2.32 [place] # (Auto) 1.30 H Eos # (Auto) 0.29 Baso # (Auto) 0.02 Immature Gran # (Auto) 0.04 H Sodium 139 Potassium 3.9 Chloride 98 Carbon Dioxide 34 H Anion Gap 7 BUN 9 Creatinine 0.98 Est Cr Clr Drug Dosing 60.1 Est GFR ( Amer) 84.6 Est GFR (Non-Af Amer) 73.0 BUN/Creatinine Ratio 9.2 L Glucose 105 H Lactate Calcium 9.7 Total Bilirubin 0.8 AST 20 ALT 14 Alkaline Phosphatase 85 Troponin I High Sens 9.6 Total Protein 7.5 Albumin 4.3 Globulin 3.2 Albumin/Globulin Ratio 1.3 Urine Color Urine Appearance Urine pH Ur Specific Fidelity Urine Protein Urine Glucose (UA) Urine Ketones Urine Blood Urine Nitrite Urine Bilirubin Urine Urobilinogen Ur Leukocyte Esterase Urine WBC (Auto) Urine RBC (Auto) U Hyaline Cast (Auto) U Epithel Cells (Auto) Urine Bacteria (Auto) SARS-CoV-2, RNA, NAAT Diagnostic Findings Chest X-Ray 07/03/21 07:31 XR chest 1V portable CLINICAL HISTORY: SEPSIS TECHNIQUE: Single frontal radiograph of the chest was obtained. Comparison: Comparison is made to chest radiograph 08/06/2020 FINDINGS: No lines and tubes are seen. The cardiomediastinal silhouette is normal. Lungs are underinflated but clear. No evidence of pleural effusion or pneumothorax. IMPRESSION: Low lung volumes without evidence of acute abnormality. ACT 112: Negative or not required by law. Electronically signed by: Luis Rajan M.D. 07/03/2021 8:15 AM Code Status & VTE Plan Code Status Full code - discussed with the patient at bedside Supervising Physician Co-Signing Physician Notes Patient was seen and examined independently at bedside. Chart reviewed. Discussed case with Gracia JOLLY and agree with the documentation. In summary, this is a 80 year old male with chronic hypoxic respiratory failure on 4 L home oxygen, COPD, essential tremor, GERD presented to the ED with dental/left jaw pain which started last night after dinner. Had some fever at home. States she saw [facility] in [place] couple months ago for regular check up and had dental cleaning/teeth removed but did not follow up as there were too many things going on and the cost was too expensive for him ($800 for that visit). In the ED, he was febrile, with leucocytosis but not sick looking. hemodynamically stable. He is on 4 L oxygen at his baseline. AAO, answering questions appropriately, poor oral dentition and hygiene, chest clear, heart sounds normal, abdomen benign, essential tremors +. CT face showed extensive dental caries and likely periodontal abscess about the left mandibular second premolar but no cortical breakthrough or soft tissue abscess is seen. Will admit for IV unasyn, check MRSA nares, consult oromaxillofacial surgeon. Rest per the note above.
--- NOTE | 2021-07-03 10:37 | CT Scan Report ---
CT facial bones w con CLINICAL HISTORY: Eval for dental abscess TECHNIQUE: Multidetector row helical CT of the maxillofacial bones was performed without administrati on of intravenous contrast, and processed with bone and soft tissue algorithms. Coronal and sagittal reformations were obtained. Automated dose lowering techniques and/or adjustment according to patient size were utilized for this exam. CT DOSE: 719.63 mGy.cm Comparison: None available at the time of this dictation. FINDINGS: Multiple dental caries are seen. Periapical lucency is noted about the left mandibular second premola r. No cortical breakthrough is seen. The mandible is intact. The temporomandibular joints are anatomi danii aligned. Pterygoid plates are intact. Zygomatic arches are intact. The globes are normal and symmetric, without proptosis, obvious disruption or lens dislocation. Ther e is no orbital radiopaque foreign body. The orbital helm are intact. The retrobulbar fat is without evidence of disruption. Extraocular muscles are normal and symmetric. Optic nerve sheath complexes are normal in course and caliber. Mucous thickening is seen in multiple ethmoid air cells as well as the left frontal and sphenoid sinu ses. Mild mucous thickening is seen in the maxillary sinuses. IMPRESSION: Extensive dental caries and likely periodontal abscess about the left mandibular second premolar. No cortical breakthrough or soft tissue abscess is seen. ACT 112: Negative or not required by law. Electronically signed by: Luis Rajan M.D. 07/03/2021 10:35 AM
[2021-07-03] MEDS ORDERED: ACETAMINOPHEN 325 MG TAB PO PRN (10:40)
[2021-07-03] MEDS ORDERED: ONDANSETRON INJ 2 MG/ML 2 ML VIAL IV PRN (10:40)
[2021-07-03] MEDS: Ipratropium HFA Inhaler (Combivent Respimat P&T Subs) INH SCH ×3 (11:11→19:16)
[2021-07-03] MEDS: Albuterol HFA 8 GM Inhaler (Combivent Respimat P&T Subs) INH SCH ×3 (11:11→19:16)
[2021-07-03] MEDS: PROPRANOLOL HCL 20 MG TAB PO SCH ×2 (13:22→20:54)
[2021-07-03] MEDS: PANTOprazole 40 MG TAB PO SCH (13:22)
[2021-07-03] MEDS: ROSUVASTATIN CALCIUM 5 MG TAB PO SCH (13:22)
[2021-07-03] MEDS: ISOSORBIDE MONO EXTENDED REL 30 MG TABCR PO SCH (13:22)
[2021-07-03] MEDS: FLUTICASONE PROPIONATE NA SPR 16 GM BTL SCH (13:22)
[2021-07-03] MEDS: TAMSULOSIN HCL 0.4 MG CAP PO SCH (13:23)
[2021-07-03] MEDS: AMPICILLIN/SULBACTAM SOD 3,000 MG in 0.9 % SODIUM CHLORIDE 100 ML IV SCH ×2 (13:23→17:23)
[2021-07-03] MEDS: FUROSEMIDE 20 MG TAB PO SCH (17:23)
[2021-07-03] MEDS ORDERED: SIMVASTATIN 10 MG TAB PO SCH (21:00)
--- NOTE | 2021-07-03 21:07 | Oral/Maxillofacial Consult ---
Date of Consultation July 03, 2021 Assessment & Plan (1) Pain, dental: (2) Acute periodontal abscess: (3) Gum hyperplasia: (4) Subperiosteal abscess of jaw: (5) Infected dental caries: History of Present Illness Reason for Consultation: Acute dental pain and weakness Attending Physician: El Saldana MD History of Present Illness Patient was seen and examined independently at bedside. Chart reviewed. Discussed case with Gracia JOLLY and agree with the documentation. In summary, this is a 80 year old male with chronic hypoxic respiratory failure on 4 L home oxygen, COPD, essential tremor, GERD presented to the ED with dental/left jaw pain which started last night after dinner. Had some fever at home. States he saw [facility] in [place] couple months ago for regular check up and had dental cleaning/teeth removed but did not follow up as there were too many things going on and the cost was too expensive for him ($800 for that visit). In the ED, he was febrile, with leucocytosis but not sick looking. hemodynamically stable. He is on 4 L oxygen at his baseline. AAO, answering questions appropriately, poor oral dentition and hygiene, chest clear, heart sounds normal, abdomen benign, essential tremors +. Plan--Will admit for IV Unasyn, check MRSA nares, consult oral maxillofacial surgeon Oral Maxillofacial Surgery Exam Present Complaint: I have pain/swelling/drainage from my infected teeth. Symptoms have been ongoing for a while. Last night acute pain --getting me sick--weak Oral Exam: Finding--Many fractured and carious/abscessed teeth , tender gingival tissue with deep pocket formation. Teeth are in an very bad shape and removal is clinical indicated. The acute pain is causing all the present symptoms that he presented to the ED Imaging: CT face showed extensive dental caries and likely periodontal abscess about the left mandibular second premolar but no cortical breakthrough or soft tissue abscess is seen. Soft tissue: There is extensive subperiosteal swelling and associated periodontal pathology. The teeth are fractured abd decayed with multiple draining fistula The floor of the mouth, tongue, hard/soft palate, posterior pharyngeal area all with in normal limits, no pathology or abnormal findings noted. Summery-advanced dental decay, carious teeth, fractured teeth, abscessed teeth with acute periodontal disease. Oral Care Overall oral care is very poor Occlusion: Class I missing teeth TMJ exam: No pop, clicking, pain, good ROM, No history of TMJ injury or dysfunction Periodontal exam: The gingival tissue - evidence of periodontal pathology with acute inflammation and infection in the subperiosteal space Head/Neck exam: Neck is supple, FROM, Able to extend and flex neck w/o difficulty, no masses, no abnormalities, no airway issues, no evidence of sleep apnea. Treatment Plan: Set up with general anesthesia in hospital OR as soon as we receive medical clearance to extract the fractured and periodontally involved teeth. I reviewed the treatment plan and consent with the patient at bedside. Medical clearance was granted and he is COVID neg Understanding was expressed. Time was given for questions regarding the surgery, risks and post op care. Discussed alternative to treatment--procedure as planned, Do not do surgery The following teeth are decayed and fractured and removal is indicated ALBA:---- -teeth # 4,9,10,18,20,26 Risks discussed: Bleeding,Pain,swelling,infection, dry socket, delayed healing, nerve injury to face,lips,tongue,chin area which could be permanent (rare). TMJ, jaw stiffness, change in bite (rare), ear pain (referred). Sinus problems like fistula or infection. Need to leave a small root fragment in place to avoid injury to nerve or sinus. Relationship of teeth to nerve/sinus and risk of jaw fracture. Home care reviewed: tooth brushing, rinsing, follow up care with Dr Chacko. diet=[id number] dental. Discussed activity level, routine dental care to prevent similar problems from happening again Surgery to be set up Tuesday AM in OR with GA. This is an emergency -as patient is in acute pain which has caused the admission to the hospital Hopefully once his pain is controlled he can be discharged on oral antimitotics Allergies Allergy/AdvReac Type Severity Reaction Status Date / Time grapefruit Allergy Unknown WAS TOLD Verified 07/03/21 08:05 NOT TO TAKE No Known Drug Allergies Allergy Unknown . Verified 09/12/20 13:05 Home Medications Medication Instructions Recorded Confirmed Type citalopram 40 mg tablet 40 mg PO QAM 03/14/18 07/03/21 History clopidogrel 75 mg tablet (Plavix) 75 mg PO QAM 03/14/18 07/03/21 History ipratropium 20 mcg-albuterol 100 1 puff INHALATION UD 03/14/18 07/03/21 History mcg/actuation mist for inhalation (Combivent Respimat) isosorbide mononitrate 30 mg 30 mg PO QAM 03/14/18 07/03/21 History tablet,extended release 24 hr levothyroxine 100 mcg capsule 100 mcg PO QAM 03/14/18 07/03/21 History multivitamin 1 tab PO QAM 03/14/18 07/03/21 History nitroglycerin 0.4 mg sublingual 1 tab SUBLINGUAL UD PRN 03/14/18 07/03/21 History tablet zoledronic acid 5 mg/100 mL in 1 dose IV YEARLY 03/14/18 07/03/21 History mannitol 5 %-water intravenous piggybck (Reclast) calcium carbonate 600 mg-vitamin 1 tab PO DAILY 12/23/19 07/03/21 History D3 10 mcg (400 unit) tablet (Calcium 600 + D(3)) simvastatin 20 mg tablet 10 mg PO HS 12/23/19 07/03/21 History propranolol 20 mg tablet 20 mg PO TID 07/31/20 07/03/21 History tamsulosin 0.4 mg capsule 0.4 mg PO QAM #30 cap 08/11/20 07/03/21 Rx acetaminophen 500 mg tablet 500 mg PO Q6H PRN 07/03/21 07/03/21 History benzonatate 100 mg capsule 100 mg PO TID PRN 07/03/21 07/03/21 History fluticasone propionate 50 2 spray INTRANASAL QAM 07/03/21 07/03/21 History mcg/actuation nasal spray,suspension furosemide 20 mg PO QPM 07/03/21 07/03/21 History furosemide 40 mg tablet 40 mg PO QAM 07/03/21 07/03/21 History ipratropium 20 mcg-albuterol 100 1 puff INHALATION QID 07/03/21 07/03/21 History mcg/actuation mist for inhalation oxycodone-acetaminophen 5 mg-325 1 tab PO Q8H PRN 07/03/21 07/03/21 History mg tablet pantoprazole 40 mg tablet,delayed 40 mg PO DAILY 07/03/21 07/03/21 History release rosuvastatin 5 mg tablet 5 mg PO DAILY 07/03/21 07/03/21 History Patient History Medical History (Updated 07/03/21 @ 21:06 by Sin Chacko DMD) Acute shoulder pain CAD (coronary artery disease) Cervical spine fracture Chronic back pain Chronic obstructive pulmonary disease Depression Depression Fall Familial tremor reason for propranolol GERD (gastroesophageal reflux disease) HTN (hypertension) Hyperlipidemia Hypertension Hypothyroidism Hypothyroidism Kidney stones Myocardial Infarction 2009 On anticoagulant therapy plavix daily On home oxygen therapy 3L N/C at hs EZEQUIEL (obstructive sleep apnea) Scoliosis Sleep apnea uses 3L N/C hs SOB (shortness of breath) on exertion with wheezing Tinnitus of both ears Surgical History History of bilateral cataract extraction History of cardiac cath 2009 [place] [facility] [place]--follows with Dr. Ramirez History of colonoscopy History of esophagogastroduodenoscopy (EGD) History of heart artery stent x1 2009--[facility] [place] History of lithotripsy History of open reduction and internal fixation (ORIF) procedure left foot fx/pinky toe fx--hardware in place History of testicular surgery "sac full of blood in testicle drained at 26 yrs old" History of tonsillectomy History of wisdom tooth extraction Hx of right inguinal hernia repair Hx of vasectomy Stented coronary artery "bare metal stent to LAD 2008" Family History Sister Family history of reaction to anesthesia nausea/vomiting Mother Family history of diabetes mellitus Social History Smoking Status: Former smoker Tobacco Type: Cigarettes Second Hand Exposure: No; Hx Alcohol Use: Yes Alcohol type: hard liquor Hx Substance Use: No Preferred Language: Citizen Of [place] Communication Ability: Effective Provider Relations Manager Required: No Beliefs That Will Affect Care: None marital status: Current Living Situation: Alone How many Children do You have: 1 Other Information That Helps Us Care for You: No Feels Safe at Home: Yes Safety Concerns: Feels Safe At This Time Assistive Devices: Cane Results & Data ([facility]) Vital Signs (Past 12 Hours) Vital Signs Temp Pulse Pulse Resp BP BP Pulse Ox 07/03/21 19:17 65 18 92 07/03/21 15:29 37.1 C 57 L 16 118/69 90 07/03/21 15:23 80 18 96 07/03/21 14:29 07/03/21 13:53 36.7 C 63 91 07/03/21 11:12 58 L 19 92 07/03/21 10:01 59 L 21 120/81 92 07/03/21 10:00 58 L 21 92 07/03/21 09:30 58 L 16 124/77 95 07/03/21 09:00 61 18 127/80 92 Pulse Ox Pulse Ox Pulse Ox 07/03/21 19:17 07/03/21 15:29 07/03/21 15:23 07/03/21 14:29 92 94 84 L 07/03/21 13:53 07/03/21 11:12 07/03/21 10:01 07/03/21 10:00 07/03/21 09:30 07/03/21 09:00 PG Care Time/CCT Total # of Minutes Spent Total Time Spent with Patient: Total time spent is greater than 50% in coordination of care (as documented) at patient's floor/unit and/or counseling patient: Coding Level of Care Code 07785 Inpt Consult Level 3 Diagnoses Pain, dental K08.89 Acute periodontal abscess K05.219 Gum hyperplasia K06.1 Subperiosteal abscess of jaw M27.2 Infected dental caries K02.9; K04.7
--- NOTE | 2021-07-03 22:24 | Electrocardiogram Report ---
Test Reason : Blood Pressure : / mmHG Vent. Rate : 062 BPM Atrial Rate : 062 BPM P-R Int : 178 ms QRS Dur : 090 ms QT Int : 412 ms P-R-T Axes : 078 045 081 degrees QTc Int : 418 ms Poor data quality, interpretation may be adversely affected Normal sinus rhythm When compared with ECG of 25-DEC-2019 06:22, No significant change was found Confirmed by Gaston Cannon ([id number]) on 07/03/2021 10:23:54 PM Referred By: REFERRED SELF Confirmed By:Gaston Cannon
[2021-07-04] MEDS: AMPICILLIN/SULBACTAM SOD 3,000 MG in 0.9 % SODIUM CHLORIDE 100 ML IV SCH ×5 (00:02→22:34)
[2021-07-04] MEDS: oxyCODONE/ACETAMINOPHEN 5mg/325mg TAB PO PRN ×2 (01:54→22:37)
[2021-07-04] MEDS: LEVOTHYROXINE SODIUM 100 MCG TABLET PO SCH (05:52)
[2021-07-04 06:28] LABS: Hemoglobin 13.8 g/dL (14.0-18.0); Mean Corpuscular Hgb Conc 32.9 g/dL (32-36); Mean Corpuscular Volume 97.4 fL (80-100); Mean Platelet Volume 9.8 fL (7.4-10.4); Platelet Count 138 K/uL (130-400); RDW Coefficient of Variation 13.8 % (11.5-14.5); Red Blood Count 4.31 M/uL (4.7-6.1); White Blood Count 10.25 K/uL (4.8-10.8)
--- NOTE | 2021-07-04 06:43 | Anesthesiology Consultation ---
Date of Service July 04, 2021 Assessment & Plan Chart Review Chart Review: Acceptable Risk for Surgery and Patient NOT seen in Pre Admission Testing Consults Requested none ASA ASA4 Proposed Anesthesia Anesthesia Type: General History Surgery Operation Date: 07/04/21 07:30 Proposed Procedures p Multiple Teeth Extractions (Facial Infection) - Sin Chacko, EMERALD Height/Weight Height: 5 ft 5 in Weight: 81.6 kg Allergies Allergy/AdvReac Type Severity Reaction Status Date / Time grapefruit Allergy Unknown WAS TOLD Verified 07/03/21 08:05 NOT TO TAKE No Known Drug Allergies Allergy Unknown . Verified 09/12/20 13:05 Medications Home Medications Medication Instructions Recorded Confirmed Last Taken citalopram 40 mg tablet 40 mg PO QAM 03/14/18 07/03/21 12/22/19 clopidogrel 75 mg tablet (Plavix) 75 mg PO QAM 03/14/18 07/03/21 12/22/19 ipratropium 20 mcg-albuterol 100 1 puff INHALATION UD 03/14/18 07/03/21 03/19/18 mcg/actuation mist for inhalation (Combivent Respimat) isosorbide mononitrate 30 mg 30 mg PO QAM 03/14/18 07/03/21 12/22/19 tablet,extended release 24 hr levothyroxine 100 mcg capsule 100 mcg PO QAM 03/14/18 07/03/21 07/03/21 multivitamin 1 tab PO QAM 03/14/18 07/03/21 12/22/19 nitroglycerin 0.4 mg sublingual 1 tab SUBLINGUAL UD PRN 03/14/18 07/03/21 Unknown tablet zoledronic acid 5 mg/100 mL in 1 dose IV YEARLY 03/14/18 07/03/21 1 Year Ago mannitol 5 %-water intravenous ~03/21/17 piggybck (Reclast) calcium carbonate 600 mg-vitamin 1 tab PO DAILY 12/23/19 07/03/21 Unknown D3 10 mcg (400 unit) tablet (Calcium 600 + D(3)) simvastatin 20 mg tablet 10 mg PO HS 12/23/19 07/03/21 Unknown propranolol 20 mg tablet 20 mg PO TID 07/31/20 07/03/21 Unknown tamsulosin 0.4 mg capsule 0.4 mg PO QAM #30 cap 08/11/20 07/03/21 Unknown acetaminophen 500 mg tablet 500 mg PO Q6H PRN 07/03/21 07/03/21 Unknown benzonatate 100 mg capsule 100 mg PO TID PRN 07/03/21 07/03/21 Unknown fluticasone propionate 50 2 spray INTRANASAL QAM 07/03/21 07/03/21 Unknown mcg/actuation nasal spray,suspension furosemide 20 mg PO QPM 07/03/21 07/03/21 07/02/21 furosemide 40 mg tablet 40 mg PO QAM 07/03/21 07/03/21 07/03/21 ipratropium 20 mcg-albuterol 100 1 puff INHALATION QID 07/03/21 07/03/21 Unknown mcg/actuation mist for inhalation oxycodone-acetaminophen 5 mg-325 1 tab PO Q8H PRN 07/03/21 07/03/21 Unknown mg tablet pantoprazole 40 mg tablet,delayed 40 mg PO DAILY 07/03/21 07/03/21 Unknown release rosuvastatin 5 mg tablet 5 mg PO DAILY 07/03/21 07/03/21 Unknown Active Medications Generic Name Dose Route Start Last Admin Trade Name Freq PRN Reason Stop Dose Admin Albuterol 1 puffs 07/03/21 11:00 07/03/21 19:16 Albuterol Hfa 8 Gm Inhaler (Combivent Respimat P&T Subs) INH 08/02/21 10:59 1 puffs QIDR SAHIL Administration Fluticasone Propionate 2 sprays 07/03/21 10:15 07/03/21 13:22 Fluticasone Propionate Na Spr 16 Gm Btl NA 08/02/21 10:14 2 sprays QAM SAHIL Administration Furosemide 20 mg 07/03/21 16:00 07/03/21 17:23 Furosemide 20 Mg Tab PO 08/02/21 15:59 20 mg QD@16 SAHIL Administration Ampicillin Sodium/Sulbactam 108 mls @ 200 mls/hr 07/03/21 11:00 07/04/21 05:52 Sodium 3,000 mg/ Sodium IV 07/05/21 10:59 200 mls/hr Chloride Q6H SAHIL Administration Protocol Ipratropium [place] 1 puffs 07/03/21 11:00 07/03/21 19:16 Ipratropium Hfa Inhaler (Combivent Respimat P&T Subs) INH 08/02/21 10:59 1 puffs QIDR SAHIL Administration Isosorbide Mononitrate 30 mg 07/03/21 10:15 07/03/21 13:22 Isosorbide [place] Extended Rel 30 Mg Tabcr PO 08/02/21 10:14 30 mg QAM SAHIL Administration Levothyroxine Sodium 100 mcg 07/04/21 06:30 07/04/21 05:52 Levothyroxine Sodium 100 Mcg Tablet PO 08/03/21 06:29 100 mcg DAILYBB SAHIL Administration Oxycodone/Acetaminophen 1 tab 07/03/21 10:13 07/04/21 01:54 Oxycodone/Acetaminophen 5mg/325mg Tab PO 07/17/21 10:12 1 tab Q8H PRN Administration Pain Pantoprazole Sodium 40 mg 07/03/21 10:15 07/03/21 13:22 Pantoprazole 40 Mg Tab PO 08/02/21 10:14 40 mg DAILY SAHIL Administration Propranolol HCl 20 mg 07/03/21 14:00 07/03/21 20:54 Propranolol Hcl 20 Mg Tab PO 08/02/21 13:59 20 mg TID SAHIL Administration Rosuvastatin Calcium 5 mg 07/03/21 10:15 07/03/21 13:22 Rosuvastatin Calcium 5 Mg Tab PO 08/02/21 10:14 5 mg DAILY SAHIL Administration Tamsulosin HCl 0.4 mg 07/03/21 10:15 07/03/21 13:23 Tamsulosin Hcl 0.4 Mg Cap PO 08/02/21 10:14 0.4 mg QAM SAHIL Administration NPO Date Last Intake of Fluids: 07/03/21 Time Last Intake of Fluids: 23:59 Date Last Intake of Solids: 07/03/21 Time Last Intake of Solids: 22:00 Past Medical History Medical History Acute shoulder pain CAD (coronary artery disease) Cervical spine fracture Chronic back pain Chronic obstructive pulmonary disease Depression Depression Fall Familial tremor reason for propranolol GERD (gastroesophageal reflux disease) HTN (hypertension) Hyperlipidemia Hypertension Hypothyroidism Hypothyroidism Kidney stones Myocardial Infarction 2009 On anticoagulant therapy plavix daily On home oxygen therapy 3L N/C at hs EZEQUIEL (obstructive sleep apnea) Scoliosis Sleep apnea uses 3L N/C hs SOB (shortness of breath) on exertion with wheezing Tinnitus of both ears Exercise / Class Metabolic Activity III < 4 Walking/Shop/Light housework Past Family History Family History Sister Family history of reaction to anesthesia nausea/vomiting Mother Family history of diabetes mellitus Past Surgical History Surgical History History of bilateral cataract extraction History of cardiac cath 2009 @ [facility] [place] with 1 stent--follows with Dr. Ramirez History of colonoscopy History of esophagogastroduodenoscopy (EGD) History of heart artery stent x1 2009--[facility] [place] History of lithotripsy History of open reduction and internal fixation (ORIF) procedure left foot fx/pinky toe fx--hardware in place History of testicular surgery "sac full of blood in testicle drained at 26 yrs old" History of tonsillectomy History of wisdom tooth extraction Hx of right inguinal hernia repair Hx of vasectomy Stented coronary artery "bare metal stent to LAD 2008" Past Anesthesia History No Hx of Anesthesia Complications and No Family Hx of Anesthesia Complications History of PONV No Hx of PONV and No Hx of Motion Sickness Social History Smoking Status: Former smoker Hx Alcohol Use: Yes Alcohol type: hard liquor alcohol intake frequency: holidays/special occasions only Hx Substance Use: No substance use type: does not use Physical Exam Vital Signs Last Vital Signs Temp 37.2 C 07/03/21 21:54 Pulse 60 07/03/21 21:54 Resp 18 07/03/21 21:54 BP 118/71 07/03/21 21:54 Pulse Ox 90 07/03/21 21:54 Testing Laboratory Results 07/04/21 06:15 Urine Color Yellow 07/03/21 07:35 Urine Appearance Clear (Clear) 07/03/21 07:35 Urine pH 8.0 (4.5-7.5) H 07/03/21 07:35 Ur Specific [place] 1.007 (1.000-1.030) 07/03/21 07:35 Urine Protein Negative (Negative) 07/03/21 07:35 Urine Glucose (UA) Negative (Negative) 07/03/21 07:35 Urine Ketones Negative (Negative) 07/03/21 07:35 Urine Nitrite Negative (Negative) 07/03/21 07:35 Ur Leukocyte Esterase Negative (Negative) 07/03/21 07:35 Urine WBC (Auto) 1-5 /hpf (0-5) 07/03/21 07:35 Urine RBC (Auto) 5-10 /hpf (0-4) H 07/03/21 07:35 U Hyaline Cast (Auto) 0 /lpf (0-5) 07/03/21 07:35 U Epithel Cells (Auto) 0-5 /lpf (0-5) 07/03/21 07:35 Urine Bacteria (Auto) Negative (Negative) 07/03/21 07:35 Electrocardiogram Date: 07/03/21 Findings: + NSR @ (@ 62) Chest X-Ray Date: 07/03/21 Findings: + NAD Echocardiogram Date: 12/23/19 EF: 55% LV Function: normal RWMA: + akinetic (small sized anterior septal WMA w/AK of apical anterior septal and apical anterior segments) Other Findings: + LVH (mild w/ sigmoid septum) and + diastolic dysfunction (grade 1) Valvular Disease: + no significant valvular disease
[2021-07-04 06:50] LABS: Albumin Globulin Ratio 1.2 (0.9-2); Albumin Level 3.6 gm/dl (3.4-5.0); BUN Creatinine Ratio 9.8 (10-20); Bilirubin,Total 0.8 mg/dl (0.2-1.0); Calcium 8.9 mg/dl (8.5-10.1); Creatinine Clr Calc Pharmacy 57.8 ml/min; Est GFR (African American) 80.6 ml/min; Est GFR (Non-African American) 69.6 ml/min; Globulin 2.9 gm/dl (2.5-4.0); Magnesium 1.9 mg/dl (1.7-2.4); Phosphorus 3.3 mg/dl (2.5-4.9); Potassium 3.7 mmol/L (3.5-5.1); Total Protein 6.5 gm/dl (6.0-8.3)
[2021-07-04] MEDS ORDERED: SUCCINYLCHOLINE CHLORIDE 20 MG/ML 10 ML VIAL IV ONE (07:01)
[2021-07-04] MEDS ORDERED: PROPOFOL IV EMULSION 10 MG/ML 20 ML VIAL IV ONE ×2 (07:01→08:17)
[2021-07-04] MEDS ORDERED: fentaNYL citrate 100 MCG/2 ML VIAL ONE (07:01)
[2021-07-04] MEDS ORDERED: DEXAMETHASONE SOD INJ 4 MG/ML VIAL ONE (07:01)
[2021-07-04] MEDS ORDERED: ONDANSETRON INJ 2 MG/ML 2 ML VIAL ONE (07:01)
[2021-07-04] MEDS ORDERED: BUPIVACAINE/EPINEPHRINE 0.5% 1:200,000 1.8 ML CARP ONE (07:11)
[2021-07-04] MEDS ORDERED: CHLORHEXIDINE GLUCONATE 0.12% 480 ML ONE (07:11)
--- NOTE | 2021-07-04 07:27 | History & Physical Bridge Note ---
Date of Service July 04, 2021 History & Physical Bridge Note I have examined the patient, reviewed the History & Physical and in the interval since the performance of the History & Physical I have noted the following changes of clinical significance: no changes noted COVID NEG Reviewed CT we will plan extraction of the following teeth 4,9,10,18,20,26 and any other teeth that are decayed once I get a better view of his teeth in the OR.
[2021-07-04] MEDS ORDERED: NALOXONE HCL 0.4 MG/1 ML VIAL/CARP IV PRN (07:37)
[2021-07-04] MEDS ORDERED: ONDANSETRON INJ 2 MG/ML 2 ML VIAL IV PRN (07:37)
[2021-07-04] MEDS ORDERED: ATROPINE SULFATE 0.1 MG/ML 10ML SYR IV PRN (07:37)
[2021-07-04] MEDS ORDERED: LABETALOL HCL IV 5 MG/ML 20ML IV PRN (07:37)
[2021-07-04] MEDS ORDERED: PROMETHAZINE HCL 12.5 MG in SODIUM CHLORIDE 0.9% 50 ML IV PRN (07:37)
[2021-07-04] MEDS ORDERED: FLUMAZENIL 0.1 MG/1 ML 10 ML VIAL IV PRN (07:37)
[2021-07-04] MEDS ORDERED: fentaNYL citrate 100 MCG/2 ML VIAL IV PRN (07:37)
[2021-07-04] MEDS ORDERED: ePHEDrine sulfate 50 MG/ML AMP IV PRN (07:37)
[2021-07-04] MEDS ORDERED: ePHEDrine sulfate 50 MG/ML SYR ONE (07:53)
[2021-07-04] MEDS: Ipratropium HFA Inhaler (Combivent Respimat P&T Subs) INH SCH ×4 (07:54→19:12)
[2021-07-04] MEDS: Albuterol HFA 8 GM Inhaler (Combivent Respimat P&T Subs) INH SCH ×4 (07:54→19:12)
[2021-07-04] MEDS ORDERED: ALBUTEROL HFA INHALER 8.5 GM ONE (09:10)
--- NOTE | 2021-07-04 09:42 | Operative Report ---
PG Post Operative Report Pre & Post Diagnosis Operation Date: 07/04/21 07:30 Pre-Op Diagnosis: Acute peridontal abscess Post-Op Diagnosis: Acute peridontal abscess I identified the patient and participated in the time-out.: Yes Procedure Operation Date: 07/04/21 07:30 Actual Procedures p Multiple Teeth Extractions for Facial Infection - Sin Chacko, DMD Surgeon Sin Chacko, DMD Civil Engineering Professor none Estimated Blood Loss 5 Findings Consistent with Post-Op Diagnosis grossly carious and infected teeth Specimens none Drains none Anesthesia Type General Indications severe pain and swelling Description of Procedure Pre-op= Drain Subperiosteal abscess lower left with extension into mandibular (curriculum advisory teacher) space CPT 84425 K12.2 Extraction of # 4,9,10,18,20,23,24,25,26 D7210 surgical removal of 9 fractured and carious teeth K04.6 K04. D7210 x 2 for # 18 and # 20 K04. D7140 x 7 for # 4,9,10,23,24,25,26 Once cleared for surgery general anesthesia was achieved, the eyes were protected by the anesthesia dept criteria.. A time out was take for patient ID, antibiotics, equipment and position verification once all agreed the procedure began. Local anesthesia was given into each area using Marcaine with a vasoconstrictor ( 1.8 ml per site). A throat pack was placed after the oral cavity was irrigated with saline. Once a surgical level of anesthesia was obtained and the local anesthesia was given time for the blocks the surgery was started. I turned my attention to the upper wisdom teeth first. Upper carious teeth # 4,9,10 D7140 x 3 A full thickness flap was reflected, bone removed with a rongeur, the tooth was visualized, it was and removed with an 81 elevator. Bony margins were trimmed, smoothed and sutured closed with a 2-0 chromic x 2. Surgical xavier placed given history of bleeding after past dental extractions.There was no sinus involvement. Surgical extraction Lower carious/fractured # 18,20 and I&D left subperiosteal and Facility Maintenance Worker space. D7210 x 2/CPT 38458 A full thick Muco-periosteal flap was made on the lower left side from 18-20 and from 22-27 area. The flap was reflected to expose the fractured and carious teeth. The subperiosteal swelling associated with the lower left teeth 18-20 was drained once the flap was reflected. Upon extraction of # 18 and # 20 it was noted that this tooth was grossly necrotic and the surrounding tissue infection extended posterior into the curriculum advisory teacher space--this was the cause of the limit open. Tooth # 18 and # 20 the drill with a straight bur was used to remove bone.The lingual plate was protected. The tooth was removed with a 301 elevator, the nerve was intact, there was no bleeding. I extended the incision into the Facility Maintenance Worker space and with a hemostat I was able open up the space. Some thick pus extruded. I irrigated the space and made sure that all pus was removed and all spaces were explored. I now smoothed and the flap and closed with a few 2-0 chromic sutures surgical xavier was placed into the socket. No drain was needed as the fluid can drain thr ough the # 18/20 extraction site. Drain Subperiosteal abscess lower left with extension into mandibular (curriculum advisory teacher) space CPT 44315 K12.2 K04. D7210 x 2 for # 18 and # 20 K04. D7140 x 7 for # 4,9,10,23,24,25,26 Simple Extraction of 23,24,25,26 D7140 x 4 K04. I now turned my attention to the removal of the follow teeth 23,24,25,26 which were simple extractions but grossly infected with periodontal swelling and abscess. At first (during bedside exam) # 26 was the only tooth to be extracted in the anterior area. However once I was able to do a better evaluation the 23,24,25 teeth were severely periodontally involved and loose-removal indicated . Using a dental forceps the 4 anterior teeth were removed, sockets curetted and sutured with a few 2-0 chromic When all the teeth were removed I inspected the sites to insure all bleeding was controlled. I removed the throat pack and suctioned the throat. Bilateral gauze pressure dressings were placed. All instrument and sponge count was correct. the patient was allowed to awake from the anesthesia. Once full awake the anesthesia tube was removed and the patient was taken to the recovery room with all vital sign stable. The patient tolerated the surgery very well. Due to the infected nature, fractured and necrotic teeth this case was medically necessary and difficult. I will follow the patient in my office, Rx and instructions will be given upon discharge. I attest to the content of the Intraoperative Record and any orders documented therein. Any exceptions are noted below.
--- NOTE | 2021-07-04 10:15 | Anesthesiology Progress Note ---
Date of Service July 04, 2021 Anesthesia Post Procedure Vital Signs Vital Signs: Temp Pulse Pulse Resp BP BP Pulse Ox 07/04/21 09:50 65 19 123/80 93 07/04/21 09:40 69 19 128/81 93 07/04/21 09:30 36.1 C L 72 21 130/79 91 07/04/21 07:53 36.7 C 55 L 18 132/71 92 07/03/21 21:54 37.2 C 60 18 118/71 90 07/03/21 20:52 07/03/21 20:49 36.7 C 65 20 127/76 86 L 07/03/21 19:17 65 18 92 07/03/21 15:29 37.1 C 57 L 16 118/69 90 07/03/21 15:23 80 18 96 07/03/21 14:29 07/03/21 13:53 36.7 C 63 91 07/03/21 11:12 58 L 19 92 Pulse Ox Pulse Ox Pulse Ox Pulse Ox 07/04/21 09:50 07/04/21 09:40 07/04/21 09:30 07/04/21 07:53 07/03/21 21:54 07/03/21 20:52 89 L 07/03/21 20:49 07/03/21 19:17 07/03/21 15:29 07/03/21 15:23 07/03/21 14:29 92 94 84 L 07/03/21 13:53 07/03/21 11:12 Transfer of Care Handoff Completed per policy Notes Mental Status: alert / awake / arousable Patient Amnestic to Procedure: Yes Nausea / Vomiting: adequately controlled Pain: adequately controlled Airway Patency, RR, SpO2: stable & adequate BP & HR: stable & adequate Hydration State: stable & adequate Anesthetic Complications: no major complications apparent
[2021-07-04] MEDS: CALCIUM 600MG + VIT D 400 IU TAB PO SCH (12:10)
[2021-07-04] MEDS: MULTIVITAMIN TAB PO SCH (12:10)
[2021-07-04] MEDS: CITALOPRAM 40 MG TAB PO SCH (12:37)
[2021-07-04] MEDS: FLUTICASONE PROPIONATE NA SPR 16 GM BTL SCH (12:37)
[2021-07-04] MEDS: ISOSORBIDE MONO EXTENDED REL 30 MG TABCR PO SCH (12:37)
[2021-07-04] MEDS: CLOPIDOGREL BISULFATE 75 MG TAB PO SCH (12:37)
[2021-07-04] MEDS: TAMSULOSIN HCL 0.4 MG CAP PO SCH (12:38)
[2021-07-04] MEDS: ROSUVASTATIN CALCIUM 5 MG TAB PO SCH (12:38)
[2021-07-04] MEDS: FUROSEMIDE 40 MG TAB PO SCH (12:38)
[2021-07-04] MEDS: PANTOprazole 40 MG TAB PO SCH (12:38)
[2021-07-04] MEDS: PROPRANOLOL HCL 20 MG TAB PO SCH ×3 (12:38→20:58)
--- NOTE | 2021-07-04 16:58 | Hospitalist Progress Note ---
Date of Service July 04, 2021 Assessment & Plan (1) Acute periodontal abscess: Plan: Has had dental procedure with cleaning/teeth removal a couple of months ago and did not have a follow-up Has been complaining of increasing pain and also fever recently Noted to have perio dental abscess in CT scan of the face Has been started on intravenous Unasyn and oropharyngeal surgeon consulted Status postDrain Subperiosteal abscess lower left, extraction of # 4,9,10,18,20,23,24,25,26 [id number] surgical removal of 9 fractured and carious teeth Remains painful in the mouth Denies any other symptoms We will continue current medication (2) Pain, dental: Plan: As above -Obtain CT of the face with contrast to rule out dental abscess, possible that underlying abscesses causing worsening pain, weakness, fatigue, consider oral maxillofacial surgery consult -Received dose of cefepime in the ER, continue on IV Unasyn -Febrile with T-max here 37.8, continue Tylenol -Follow blood cultures-negative so far -UA appears to be clean, CXR is clear, possible that there is underlying pneumonia slightly with patient history of cough starting 1 week ago and small amount of sputum production. -Unasyn would cover this as well. -Can consider follow-up chest x-ray or CT of the chest if no improvement in symptoms. -He is currently saturating at 92% on his home dose of 4L via [place] and has been since arriving here. -He got 1 nebulizer treatment by EMS in route to hospital. (3) Fever: (4) Dyslipidemia: Plan: -Continue rosuvastatin (5) GERD (gastroesophageal reflux disease): Plan: -Continue pantoprazole, history of recent EGD with stretching of esophagus here at [facility], currently no issues (6) Essential tremor: Plan: -Continue propranolol, worse currently with increased weakness and fever -PT/OT consults ordered (7) COPD (chronic obstructive pulmonary disease): Plan: -CXR is clear, possible that there is underlying pneumonia slightly with patient history of cough starting 1 week ago and small amount of sputum production. -Unasyn would cover this as well. -Can consider follow-up chest x-ray or CT of the chest if no improvement in symptoms. -He is currently saturating at 92% on his home dose of 4L via [place] and has been since arriving here. -He got 1 nebulizer treatment by EMS in route to hospital.-History of such may continue inhalers, not on any steroids -Continue 4L via NC -No evidence of acute exacerbation (8) CAD (coronary artery disease): Plan: - Follows with cardiology, Job Bravo as outpatient - Continue Plavix, not on baby aspirin for some time now -Continue Imdur, propranolol (more so for essential tremor) - Continue lasix, patient took this morning dose, currently euvolemic (9) Hypothyroidism: Plan: -Continue levothyroxine (10) HTN (hypertension): Plan: -Continue medications as above DVT PPx: - teds, scds, Plavix CODE: Full code Dispo: From home, likely to remain in the hospital x 1-2 days Admission and Anticipated Discharge Date Admission Date: July 03, 2021 Subjective 07/04/2021 The patient was seen and examined in medical floor He is a status post multiple teeth extraction today Still has difficulty in talking due to facial numbness and pain Denies any other significant symptoms Review of Systems Review of Systems: All systems reviewed and are unremarkable except as noted below Physical Exam Physical Exam: Lying in bed with difficulty due to pain in the mouth Constitutional: well developed, well nourished, + ill appearing and + obese Eyes: PERRL, conjunctivae normal, anicteric sclerae ENMT: Oropharynx-status post multiple tooth extraction, edematous and painful Neck: trachea midline, no thyromegaly Respiratory: no respiratory distress Auscultation: + diminished lung sounds and + crackles (Minimal crackles at the bases) Cardiovascular: Rate/Rhythm: regular rate and regular rhythm; not tachycardic Heart Sounds: normal S1 and normal S2; no murmur Extremities: no edema Gastrointestinal (Abdomen): Inspection/Auscultation: normal bowel sounds; abdomen not distended Percussion/Palpation: abdomen soft; abdomen nontender Musculoskeletal: No acute arthritis in any joint Neurologic: Alert, awake and oriented x3. No focal sensory no motor deficit appreciated Lymphatic: no cervical or axillary lymphadenopathy Results & Data Results & Data ([facility]) Vital Signs (Past 12 Hours) Vital Signs Temp Pulse Pulse Resp BP BP Pulse Ox 07/04/21 15:19 36.2 C L 61 18 104/59 L 88 L 07/04/21 14:44 65 18 91 07/04/21 13:55 36.4 C L 59 L 16 115/68 90 07/04/21 12:55 36.4 C L 75 16 137/73 90 07/04/21 11:55 36.5 C 63 16 134/81 90 07/04/21 11:25 36.6 C 63 16 131/83 90 07/04/21 11:00 36.1 C L 65 132/82 92 07/04/21 10:30 64 19 104/80 91 07/04/21 10:20 62 19 126/79 91 07/04/21 10:10 66 18 130/81 89 L 07/04/21 10:00 36.7 C 66 21 134/80 92 07/04/21 09:50 65 19 123/80 93 07/04/21 09:40 69 19 128/81 93 07/04/21 09:30 36.1 C L 72 21 130/79 91 07/04/21 07:53 36.7 C 55 L 18 132/71 92 Laboratory Results Short CBC 07/04/21 Range/Units 06:15 WBC 10.25 (4.8-10.8) K/uL Hgb 13.8 L (14.0-18.0) g/dL Hct 42.0 (42-52) % Plt Count 138 (130-400) K/uL BMP 07/04/21 06:15 Sodium 139 Potassium 3.7 Chloride 99 Carbon Dioxide 32 BUN 10 Creatinine 1.02 Glucose 117 H Calcium 8.9 Liver Function 07/04/21 Range/Units 06:15 Total Bilirubin 0.8 (0.2-1.0) mg/dl AST 14 (13-39) U/L ALT 10 (7-52) U/L Alkaline Phosphatase 66 (34-104) U/L Albumin 3.6 (3.4-5.0) gm/dl Medications Administered Current Inpatient Medications Acetaminophen (Acetaminophen 325 Mg Tab) 650 mg PO Q4H PRN PRN Reason: Moderate Pain Stop: 08/02/21 10:39 Albuterol (Albuterol Hfa 8 Gm Inhaler (Combivent Respimat P&T Subs)) 1 puffs INH QIDR SAHIL Stop: 08/02/21 10:59 Last Admin: 07/04/21 14:43 Dose: 1 puffs Documented by: Benzonatate (Benzonatate 100 Mg Capsule) 100 mg PO TID PRN PRN Reason: Cough Stop: 08/02/21 10:12 Citalopram Hydrobromide (Citalopram 40 Mg Tab) 40 mg PO [facility] Stop: 08/03/21 08:59 Last Admin: 07/04/21 12:37 Dose: 40 mg Documented by: Clopidogrel Bisulfate (Clopidogrel Bisulfate 75 Mg Tab) 75 mg PO [facility] Stop: 08/03/21 08:59 Last Admin: 07/04/21 12:37 Dose: 75 mg Documented by: Fluticasone Propionate (Fluticasone Propionate Na Spr 16 Gm Btl) 2 sprays NA [facility] Stop: 08/02/21 10:14 Last Admin: 07/04/21 12:37 Dose: 2 sprays Documented by: Furosemide (Furosemide 40 Mg Tab) 40 mg PO [facility] Stop: 08/03/21 08:59 Last Admin: 07/04/21 12:38 Dose: 40 mg Documented by: Furosemide (Furosemide 20 Mg Tab) 20 mg PO QD@16 [facility] Stop: 08/02/21 15:59 Last Admin: 07/03/21 17:23 Dose: 20 mg Documented by: Ampicillin Sodium/Sulbactam Sodium 3,000 mg/ Sodium Chloride 108 mls @ 200 mls/hr IV Q6H [facility]; Protocol Stop: 07/05/21 10:59 Last Infusion: 07/04/21 14:25 Dose: Infused Documented by: Ipratropium [place] (Ipratropium Hfa Inhaler (Combivent Respimat P&T Subs)) 1 puffs INH QIDR [facility] Stop: 08/02/21 10:59 Last Admin: 07/04/21 14:44 Dose: 1 puffs Documented by: Isosorbide Mononitrate (Isosorbide [place] Extended Rel 30 Mg Tabcr) 30 mg PO [facility] Stop: 08/02/21 10:14 Last Admin: 07/04/21 12:37 Dose: 30 mg Documented by: Levothyroxine Sodium (Levothyroxine Sodium 100 Mcg Tablet) [facility] Stop: 08/03/21 06:29 Last Admin: 07/04/21 05:52 Dose: 100 mcg Documented by: Multivitamins (Multivitamin Tab) 1 tab PO [facility] Stop: 08/03/21 08:59 Last Admin: 07/04/21 12:10 Dose: Not Given Documented by: Multivitamins/Minerals (Calcium 600mg + Vit D 400 Iu Tab) 1 tab PO DAILY [facility] Stop: 08/03/21 08:59 Last Admin: 07/04/21 12:10 Dose: Not Given Documented by: Nitroglycerin (Nitroglycerin Sl 0.4 Mg/Tab Tab) 0.4 mg SL UD PRN PRN Reason: Angina Stop: 08/02/21 10:12 Ondansetron HCl (Ondansetron Inj 2 Mg/Ml 2 Ml Vial) 4 mg IV Q4H PRN PRN Reason: Nausea And Vomiting Stop: 08/02/21 10:39 Oxycodone/Acetaminophen (Oxycodone/Acetaminophen 5mg/325mg Tab) 1 tab PO Q8H PRN PRN Reason: Pain Stop: 07/17/21 10:12 Last Admin: 07/04/21 01:54 Dose: 1 tab Documented by: Pantoprazole Sodium (Pantoprazole 40 Mg Tab) 40 mg PO DAILY [facility] Stop: 08/02/21 10:14 Last Admin: 07/04/21 12:38 Dose: 40 mg Documented by: Propranolol HCl (Propranolol Hcl 20 Mg Tab) 20 mg PO TID [facility] Stop: 08/02/21 13:59 Last Admin: 07/04/21 12:58 Dose: 20 mg Documented by: Rosuvastatin Calcium (Rosuvastatin Calcium 5 Mg Tab) 5 mg PO DAILY [facility] Stop: 08/02/21 10:14 Last Admin: 07/04/21 12:38 Dose: 5 mg Documented by: Tamsulosin HCl (Tamsulosin Hcl 0.4 Mg Cap) 0.4 mg PO QAM [facility] Stop: 08/02/21 10:14 Last Admin: 07/04/21 12:38 Dose: 0.4 mg Documented by:
[2021-07-04] MEDS: FUROSEMIDE 20 MG TAB PO SCH (17:03)
[2021-07-05] MEDS: LEVOTHYROXINE SODIUM 100 MCG TABLET PO SCH (06:09)
[2021-07-05] MEDS: oxyCODONE/ACETAMINOPHEN 5mg/325mg TAB PO PRN ×2 (06:09→20:18)
[2021-07-05] MEDS: AMPICILLIN/SULBACTAM SOD 3,000 MG in 0.9 % SODIUM CHLORIDE 100 ML IV SCH (06:09)
[2021-07-05 07:24] LABS: Basophils # (auto) 0.01 K/uL (0-0.2); Basophils % (auto) 0.1 %; Hematocrit (blood only) 41.5 % (42-52); Hemoglobin 13.7 g/dL (14.0-18.0); Immature Granulocytes # (auto) 0.04 K/uL (0.00-0.02); Immature Granulocytes % (auto) 0.3 %; Lymphocytes # (auto) 1.18 K/uL (1.2-3.4); Lymphocytes % (auto) 8.4 %; Monocytes # (auto) 1.02 K/uL (0.11-0.59); Monocytes % (auto) 7.3 %; Neutrophils # (auto) 11.74 K/uL (1.4-6.5); Neutrophils % (auto) 83.9 %; Platelet Count 167 K/uL (130-400); RDW Coefficient of Variation 13.7 % (11.5-14.5); Red Blood Count 4.28 M/uL (4.7-6.1); White Blood Count 13.99 K/uL (4.8-10.8)
[2021-07-05] MEDS: Ipratropium HFA Inhaler (Combivent Respimat P&T Subs) INH SCH ×4 (07:41→19:08)
[2021-07-05] MEDS: Albuterol HFA 8 GM Inhaler (Combivent Respimat P&T Subs) INH SCH ×4 (07:41→19:07)
[2021-07-05 07:45] LABS: BUN Creatinine Ratio 14.8 (10-20); Creatinine Clr Calc Pharmacy 72.7 ml/min; Est GFR (Non-African American) 84.5 ml/min; Potassium 3.9 mmol/L (3.5-5.1)
[2021-07-05] MEDS: FUROSEMIDE 40 MG TAB PO SCH (09:54)
[2021-07-05] MEDS: FLUTICASONE PROPIONATE NA SPR 16 GM BTL SCH (09:54)
[2021-07-05] MEDS: CALCIUM 600MG + VIT D 400 IU TAB PO SCH (09:54)
[2021-07-05] MEDS: CLOPIDOGREL BISULFATE 75 MG TAB PO SCH (09:54)
[2021-07-05] MEDS: PROPRANOLOL HCL 20 MG TAB PO SCH ×3 (09:54→23:17)
[2021-07-05] MEDS: ISOSORBIDE MONO EXTENDED REL 30 MG TABCR PO SCH (09:54)
[2021-07-05] MEDS: MULTIVITAMIN TAB PO SCH (09:54)
[2021-07-05] MEDS: PANTOprazole 40 MG TAB PO SCH (09:54)
[2021-07-05] MEDS: CITALOPRAM 40 MG TAB PO SCH (09:54)
[2021-07-05] MEDS: TAMSULOSIN HCL 0.4 MG CAP PO SCH (09:55)
[2021-07-05] MEDS: ROSUVASTATIN CALCIUM 5 MG TAB PO SCH (09:55)
--- NOTE | 2021-07-05 10:15 | Oral/Maxillofacial Progress Nt ---
Date of Service July 05, 2021 Assessment & Plan Admission and Anticipated Discharge Date Admission Date: July 03, 2021 Subjective Fabian is doing much better today--less dental pain. The extraction sites look good, no bleeding or drainage noted. All sutures are in place. Clotting well POST OP NOTE:----OK for discharge as from Oral Surgery point of view Procedure removal of 9 carious teeth 4,9,10,18,20,23,24,25.26 I&D left subperiosteal and mandibular space left side The patient did very well post operatively, healing is excellent given the severity and infection that was present. There is minimal swelling as expected. The swollen subperiosteal spaces have responded will Tissue tone =healthy normal tissue No sinus or nerve complications noted Excellent ROM Reviewed diet, massage,continued home/oral care RTC for follow up on JULY 23 at 2:30 at my office--director of casework services notified and card given. Overall: Excellent healing from recent oral surgery good response from surgery OK for discharge as per medical suggested oral antibiotics for 7 days, pain Meds as per medical management Results & Data ([facility]) Vital Signs (Past 12 Hours) Vital Signs Temp Pulse Pulse Resp BP Pulse Ox 07/05/21 07:39 92 H 17 07/05/21 07:30 36.9 C 58 L 18 122/72 91 07/05/21 03:29 36.3 C L 60 18 130/76 93 07/04/21 23:24 36.4 C L 60 18 123/76 93 PG Care Time/CCT Total # of Minutes Spent Total Time Spent with Patient: Total time spent is greater than 50% in coordination of care (as documented) at patient's floor/unit and/or counseling patient: Coding Level of Care Code None
[2021-07-05] MEDS: FUROSEMIDE 20 MG TAB PO SCH (16:40)
--- NOTE | 2021-07-05 19:07 | Hospitalist Progress Note ---
Date of Service July 05, 2021 Assessment & Plan (1) Acute periodontal abscess: (2) Pain, dental: Plan: Has had dental procedure with cleaning/teeth removal a couple of months ago and did not have a follow-up Has been complaining of increasing pain and also fever recently Noted to have perio dental abscess in CT scan of the face -Received dose of cefepime in the ER Blood culture no growth Has been started on intravenous Unasyn and oropharyngeal surgeon consulted Status post Drain Subperiosteal abscess lower left, extraction of # 4,9,10,18,20,23,24,25,26 [id number] surgical removal of 9 fractured and carious teeth Pain improves Will transition to PO Augmentin on discharge Outpatient follow up with oralmaxillofacial (3) Fever: (4) Dyslipidemia: Plan: -Continue rosuvastatin (5) GERD (gastroesophageal reflux disease): Plan: -Continue pantoprazole, history of recent EGD with stretching of esophagus here at [facility], currently no issues (6) Essential tremor: Plan: -Continue propranolol, worse currently with increased weakness and fever -PT/OT consults ordered (7) COPD (chronic obstructive pulmonary disease): Plan: -CXR is clear, possible that there is underlying pneumonia slightly with patient history of cough starting 1 week ago and small amount of sputum production. -Unasyn would cover this as well. -Can consider follow-up chest x-ray or CT of the chest if no improvement in symptoms. -He is currently saturating at 92% on his home dose of 4L via [place] and has been since arriving here. -He got 1 nebulizer treatment by EMS in route to hospital.-History of such may continue inhalers, not on any steroids -Continue 4L via [place] -No evidence of acute exacerbation (8) CAD (coronary artery disease): Plan: - Follows with cardiology, Job Bravo as outpatient - Continue Plavix, not on baby aspirin for some time now -Continue Imdur, propranolol (more so for essential tremor) - Continue lasix, patient took this morning dose, currently euvolemic (9) Hypothyroidism: Plan: -Continue levothyroxine (10) HTN (hypertension): Plan: -Continue medications as above DVT PPx: - teds, scds, Plavix CODE: Full code Dispo: From home, likely to remain in the hospital x 1-2 days Admission and Anticipated Discharge Date Admission Date: July 03, 2021 Subjective Patient was seen and examined for follow-up of dental procedure Sitting in chair with no acute distress watching TV Patient said pain and swelling improve significantly He would like to spend 1 more night since he has to arrange for his ride before discharged Denies any chest pain, palpitation, dizziness and SOB Review of Systems Review of Systems: All systems reviewed & are unremarkable except as noted in Subjective Physical Exam Physical Exam: General- No acute distress Head- atraumatic Eyes- PERRL, EOMI, ENT- +status post multiple tooth extraction, edematous and painful Neck- supple, no JVD Lungs- +diminished BS Heart- regular rhythm; no murmur Abdomen- normal bowel sounds, soft, nontender Extremities- no calf tenderness Neuro- alert, oriented x 3; PERRL, EOMI; no facial palsy; no dysarthria Skin- warm & dry Results & Data Results & Data ([facility]) Vital Signs (Past 12 Hours) Vital Signs Temp Pulse Pulse Resp BP Pulse Ox 07/05/21 15:53 62 16 123/74 92 07/05/21 15:18 76 19 92 07/05/21 12:44 88 L 07/05/21 11:24 81 18 92 07/05/21 07:39 92 H 17 07/05/21 07:30 36.9 C 58 L 18 122/72 91
[2021-07-06] MEDS: LEVOTHYROXINE SODIUM 100 MCG TABLET PO SCH (06:29)
[2021-07-06 07:12] LABS: Hematocrit (blood only) 41.8 % (42-52); Hemoglobin 13.8 g/dL (14.0-18.0); Mean Corpuscular Hemoglobin 32.2 pg (25-34); Mean Corpuscular Volume 97.7 fL (80-100); Mean Platelet Volume 10.1 fL (7.4-10.4); Platelet Count 170 K/uL (130-400); RDW Coefficient of Variation 13.8 % (11.5-14.5); RDW Standard Deviation 49.2 fL (36.4-46.3); Red Blood Count 4.28 M/uL (4.7-6.1); White Blood Count 13.36 K/uL (4.8-10.8)
[2021-07-06] MEDS: Albuterol HFA 8 GM Inhaler (Combivent Respimat P&T Subs) INH SCH ×3 (07:18→15:26)
[2021-07-06] MEDS: Ipratropium HFA Inhaler (Combivent Respimat P&T Subs) INH SCH ×3 (07:18→15:26)
[2021-07-06] MEDS: CLOPIDOGREL BISULFATE 75 MG TAB PO SCH (08:38)
[2021-07-06] MEDS: MULTIVITAMIN TAB PO SCH (08:38)
[2021-07-06] MEDS: FUROSEMIDE 40 MG TAB PO SCH (08:38)
[2021-07-06] MEDS: CALCIUM 600MG + VIT D 400 IU TAB PO SCH (08:38)
[2021-07-06] MEDS: CITALOPRAM 40 MG TAB PO SCH (08:38)
[2021-07-06] MEDS: PANTOprazole 40 MG TAB PO SCH (08:38)
[2021-07-06] MEDS: ISOSORBIDE MONO EXTENDED REL 30 MG TABCR PO SCH (08:38)
[2021-07-06] MEDS: PROPRANOLOL HCL 20 MG TAB PO SCH ×2 (08:39→13:26)
[2021-07-06] MEDS: TAMSULOSIN HCL 0.4 MG CAP PO SCH (08:39)
[2021-07-06] MEDS: ROSUVASTATIN CALCIUM 5 MG TAB PO SCH (08:39)
[2021-07-06] MEDS: FLUTICASONE PROPIONATE NA SPR 16 GM BTL SCH (08:43)
[2021-07-06] MEDS ORDERED: AMOXICILLIN/CLAVULANATE 875 MG TAB PO ONE (15:47)
[2021-07-06] MEDS: FUROSEMIDE 20 MG TAB PO SCH (16:31)
[2021-07-06] MEDS ORDERED: AMOXICILLIN/CLAVULANATE 875 MG TAB PO SCH (17:00)
--- NOTE | 2021-07-06 18:06 | Discharge Summary ---
Date of Service July 06, 2021 Admission HPI Per Admitting Provider This is a 80-year-old male with PMHx of COPD, vitamin D deficiency, essential tremor, GERD, dyslipidemia, spinal stenosis, who presents to the ER after calling the ambulance this morning from home due to increased weakness. He reports that he has had several days of left lower jaw pain which she has been medicating Tylenol with, he has had a low-grade fever, and increasing weakness where he felt that he was unsteady to walk even with his cane. Patient lives at home by himself and typically performs all ADLs without difficulty. He notes that he has been in to see a dentist recently and has had several teeth removed. He has not been on any antibiotics recently. His p.o. intake has been poor due to mouth pain, but he has been maintaining drinking fluids. He reports that last night he had been much difficulty sleeping due to pain in side of his face, and it has been swollen on the left lower jaw. He has been using Tylenol [id number] for the past 2 days due to pain. He denies fever specifically but upon EMS presentation was 100.4. He admits to having a cough last week and is still bringing up small amounts of phlegm, specifically in the morning. He wears his 4 L O2 all the time, and states that he does take breaks here and there when his O2 sats are high enough. He maintains them around 92% at home with his pulse oximeter. Patient took his morning levothyroxine and Lasix however did not get any of his other medications yet today. EMS presented to his home and found that he was hypoxic at 79% and received a nebulizer treatment in the ambulance in route to the hospital. He has been saturating at 94% on his typical 4 L which he wears at all times since being here. Febrile at 37.8. CXR is clear, no leukocytosis. Concern for possible dental abscess so will obtain a CT of the face with contrast. Discharge Exam General- No acute distress Head- atraumatic Eyes- PERRL, EOMI, ENT- +status post multiple tooth extraction, edematous and painful Neck- supple, no JVD Lungs- +diminished BS Heart- regular rhythm; no murmur Abdomen- normal bowel sounds, soft, nontender Extremities- no calf tenderness Neuro- alert, oriented x 3; PERRL, EOMI; no facial palsy; no dysarthria Skin- warm & dry Discharge Data Allergies Allergy/AdvReac Type Severity Reaction Status Date / Time grapefruit Allergy Unknown WAS TOLD Verified 07/03/21 08:05 NOT TO TAKE No Known Drug Allergies Allergy Unknown . Verified 09/12/20 13:05 Consultations 07/03/21 09:37 ED Decision to Admit Stat 07/03/21 11:43 Consult Oromaxillofacial Surgery Routine Procedures Performed Operation Date: 07/04/21 07:30 Actual Procedures p Multiple Teeth Extractions for Facial Infection - Sin Chacko, DMD Ordered Studies 07/03/21 09:37 CT facial bones w con Stat Hospital Course (1) Acute periodontal abscess: (2) Pain, dental: Has had dental procedure with cleaning/teeth removal a couple of months ago and did not have a follow-up Has been complaining of increasing pain and also fever recently Noted to have perio dental abscess in CT scan of the face -Received dose of cefepime in the ER Blood culture no growth Has been started on intravenous Unasyn and oropharyngeal surgeon consulted Status post Drain Subperiosteal abscess lower left, extraction of # 4,9,10,18,20,23,24,25,26 [id number] surgical removal of 9 fractured and carious teeth Pain improves Will transition to PO Augmentin on discharge Outpatient follow up with oralmaxillofacial (3) Fever: (4) Dyslipidemia: -Continue rosuvastatin (5) GERD (gastroesophageal reflux disease): -Continue pantoprazole, history of recent EGD with stretching of esophagus here at [facility], currently no issues (6) Essential tremor: -Continue propranolol, worse currently with increased weakness and fever -PT/OT consults ordered (7) COPD (chronic obstructive pulmonary disease): -CXR is clear, possible that there is underlying pneumonia slightly with patient history of cough starting 1 week ago and small amount of sputum production. -Unasyn would cover this as well. -Can consider follow-up chest x-ray or CT of the chest if no improvement in symptoms. -He is currently saturating at 92% on his home dose of 4L via [place] and has been since arriving here. -He got 1 nebulizer treatment by EMS in route to hospital.-History of such may continue inhalers, not on any steroids -Continue 4L via [place] -No evidence of acute exacerbation (8) CAD (coronary artery disease): - Follows with cardiology, Job Bravo as outpatient - Continue Plavix, not on baby aspirin for some time now -Continue Imdur, propranolol (more so for essential tremor) - Continue lasix, patient took this morning dose, currently euvolemic (9) Hypothyroidism: -Continue levothyroxine (10) HTN (hypertension): -Continue medications as above DVT PPx: - teds, scds, Plavix CODE: Full code Dispo: From home, likely to remain in the hospital x 1-2 days Discharge Plan Discharge Items Patient Disposition: Home - Home Health Services Reason For Visit: WEAKNESS, HYPOXIA, 1ABSCESSED TEETH Discharge Diagnosis: (1) Acute periodontal abscess: (2) Pain, dental: (3) Fever: (4) Dyslipidemia: (5) GERD (gastroesophageal reflux disease): (6) Essential tremor: (7) COPD (chronic obstructive pulmonary disease) (8) CAD (coronary artery disease): (9) Hypothyroidism: Activity: Resume your previous activity Lifting: None Bathing: No limitations Exercise/Sports: None Non-emergency contact: Primary Care Provider and Surgeon Call non-emergency contact if: your symptoms worsen, your pain is not controlled, your pain is worsening, your temperature is above 101, your temperature is above 101.5 and your wound pain has increased Follow-up/Referrals: Jennifer Sarkar MD [Primary Care Provider] - 07/09/21 2:20 pm (Date & Time 07/09/2021 2:20 PM Provider Ynaa Prince MD Department General Internal Medicine [facility] ) Sin Chacko DMD [Physician] - 07/23/21 2:30 pm (Patient has a follow up appointment July 23 230pm) Diet: Heart Healthy Diet Texture: Pureed (blended smooth) Diet Comment: clear liquid--full liquid--dental soft as tolerated Addtl Attending Provider Instructions: Follow up with primary care provider Dr. Prince on 07/09/2021 @ 2:20 PM @ General Internal Medicine [facility] Complete the course of the antibiotic Continue oxygen supplement with 4-5 L nasal canula on discharge Please advance diet as tolerated slowly ADDITIONAL ACTIVITY RECOMMENDATIONS: * [place] teeth after every meal. It is very important to keep your mouth clean to prevent infection. * Starting tonight rinse with the Peridex as directed then 2 x a day * it is very important to keep well hydrated, this prevents fever and possible dry socket pain SPECIAL CARE INSTRUCTIONS: *It is not uncommon that between day 2-4 that your swelling will be at its worst this is very normal, do not be alarmed. * Keep ice on the side of your face for the next 24 to 36 hours. This will help keep the swelling down. * Tomorrow start rinsing your mouth with 1/2 teaspoon salt in 8 ounces warm water. This rinse should be used every 4-6 hours. * You may experience slight nausea. To prevent this, never take your medication on an empty stomach. If nauseated, take small sips of liz chetan until you feel better; then you may start on applesauce and toast. * Some swelling is common. It should gradually decrease within 4-5 days. * A certain amount of bleeding is to be expected. It is often possible to control mild oozing by placing folded gauze over the area and biting down for 30 minutes. If you are unable to control excessive bleeding, call Dr Chacko at [phone] * You may experience some discomfort for a few days. If pain or swelling increases, Call Dr Chacko * Return to the office for a follow up check up on: TuesdayJULY 23 at 2:30 * office address--[address] phone # [phone] Pending Studies at Discharge: No Stand-Alone Forms: My [facility] [place], Smoking Cessation Medications and DC Order Prescriptions: New amoxicillin-pot clavulanate 875-125 mg tablet 1 tab PO BID 5 Days Qty: 10 RF: 0 Continued multivitamin Tablet 1 tab PO QAM RF: 0 citalopram 40 mg Tablet 40 mg PO QAM RF: 0 isosorbide mononitrate 30 mg Tablet Extended Release 24 Hr 30 mg PO QAM RF: 0 clopidogrel [Plavix] 75 mg Tablet 75 mg PO QAM RF: 0 nitroglycerin 0.4 mg Tablet, Sublingual 1 tab Sublingual UD PRN (Reason: Angina) RF: 0 zoledronic [id number] [Reclast] 5 mg/100 mL Piggyback 1 dose IV YEARLY RF: 0 levothyroxine 100 mcg Capsule 100 mcg PO QAM RF: 0 Combivent Respimat 20-100 mcg/actuation Mist 1 puff INHALATION UD RF: 0 calcium carbonate-vitamin D3 [Calcium 600 + D(3)] 600 mg(1,500mg) -400 unit Tablet 1 tab PO DAILY RF: 0 simvastatin 20 mg tablet 10 mg PO HS RF: 0 propranolol 20 mg tablet 20 mg PO TID RF: 0 tamsulosin 0.4 mg Capsule 0.4 mg PO QAM Qty: 30 RF: 0 acetaminophen 500 mg Tablet 500 mg PO Q6H PRN (Reason: Pain) RF: 0 benzonatate 100 mg capsule 100 mg PO TID PRN (Reason: Cough) RF: 0 pantoprazole 40 mg tablet,delayed release (DR/EC) 40 mg PO DAILY RF: 0 fluticasone propionate 50 mcg/actuation spray,suspension 2 spray INTRANASAL QAM RF: 0 rosuvastatin 5 mg tablet 5 mg PO DAILY RF: 0 ipratropium-albuterol 20-100 mcg/actuation Mist 1 puff INHALATION QID RF: 0 furosemide 40 mg tablet 40 mg PO QAM RF: 0 furosemide 20 mg PO QPM RF: 0 Changed oxycodone-acetaminophen 5-325 mg tablet 1 tab PO Q12H PRN (Reason: Pain) Qty: 10 RF: 0 Discharge Orders: Discharge Order (Routine); Ordered 07/06/21 Ordered By: Quita John/Other Patient Handouts: Dental Abscess, ED Dental Cavity Admission Data Admit Date/Time: 07/03/21 10:30 Attending Provider: Quita Gibson Admit Provider: El Saldana Primary Care Provider: Jennifer Sarkar Other Providers: [place] ; Tony Giang ; Sin Chacko Other Interventions: Discharge Summary Assessment (RN) Last Done: 07/06/21 16:45
== END 2021-07-06 19:10 | disposition home health service (06) | DRG 137 ==
LOC: ED 07:18 → 3W 10:13 → SUATTDRO 10:30 → 3W 10:30

== ENCOUNTER 2021-11-27 23:49 | Inpatient (IN) ==
[2021-11-28] MEDS ORDERED: methylPREDNISolone 125 MG/2 ML VIAL IV STA (00:08)
[2021-11-28] MEDS ORDERED: ALBUT/IPRATROP 3MG/0.5MG NEB 3 ML VIAL INH STA (00:08)
--- NOTE | 2021-11-28 00:09 | Emergency Department Note ---
Impression & Plan COVID-19, Pulmonary embolism ADMIT ED Provider Note HPI: The patient is an 81-year-old male with history of COPD, on 4 L nasal cannula oxygen at baseline, who presents the emergency department with a chief complaint of shortness of breath. Patient has a history of COPD and is on 4 L of nasal cannula oxygen at baseline, states that he began to feel more short of breath throughout the evening tonight and therefore contacted EMS to be transported to the ED. patient states he is also had some subjective fever and chills throughout the day today. On arrival the patient is mildly tremulous, states this is his baseline, he is saturating at 94% on 4 L nasal cannula oxygen on my initial assessment. ROS: -Pulmonary: Shortness of breath *10 point review systems was conducted and is otherwise negative unless stated above *Outpatient medications and allergy history reviewed PE: General: Alert, tremulous HEENT: Normocephalic, trachea midline Eyes: Extraocular eye movement is intact, no scleral erythema Pulmonary: Diminished breath sounds bilaterally without wheezing or crackles Cardio: Regular rate and rhythm GI: Abdomen is soft, nontender : No suprapubic tenderness MSK: No evidence of trauma or malformation of the extremities, no edema Skin: No evidence of rash Neuro: Alert, no focal deficits 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 No infiltrate, effusion or pneumothorax. The mediastinum is intact. There is mild enlargement of the heart. Minimal atherosclerosis of the aortic arch. There are coronary artery calcifications. No aneurysm or dissection. Small left upper lobe PEs. Small lingular PE. Cholelithiasis. Granulomas of the spleen. Severe scoliotic curvature of the spine. Impression: Small left PEs. No right heart strain. Radiologist: Trey Justice M.D. Study ready at 02:06 and initial results transmitted at 02:39 Communications: Clear Time Type Notes Call Doctor Pulmonary Embolism Medical Decision Making: Patient presented to the emergency department with a chief complaint of shortness of breath, on arrival he is saturating at 94% on his baseline 4 L nasal cannula oxygen but he does have some mild increased work of breathing. IV was established, lab work obtained, patient was placed on cafeteria monitor, DuoNeb breathing treatment and IV steroids were ordered. COVID-19 testing was obtained and is positive, CT angiography of the chest was obtained that shows evidence of small left-sided pulmonary emboli, no evidence of any right heart strain on imaging. Troponin is negative, EKG does not show any acute ischemic c hanges. Patient does have a leukocytosis with a left shift, will order blood cultures, at this time I do think his symptoms are likely viral in nature, he will be started on heparin drip for pulmonary emboli, case was discussed with the on-call admitting hospitalist for [facility], Dr. Hull, the patient was admitted in stable condition for further care. Diagnosis: 1. Dyspnea, acute 2. Acute pulmonary emboli, left-sided, subsegmental 3. COVID-19 infection 4. Leukocytosis Disposition: Admission Job Giron DO Emergency Medicine Past Med/Surg History Medical History Ankle swelling PT PLANS TO DISCUSS WITH PT REPORTS DR HAD HIM STOP FLUID PILL AND NOT SURE WHY Cervical spine fracture LAST SUMMER NO LIMITATIONS Choking REASON FOR UPCOMING PROCEDURE PER PT Chronic back pain Chronic obstructive pulmonary disease COPD (chronic obstructive pulmonary disease) Depression Dyslipidemia Fall HX, NOT RECENTLY Familial tremor reason for propranolol Generalized muscle weakness GERD (gastroesophageal reflux disease) Hyperlipidemia Hypertension Hypothyroidism Kidney stones ONE PRESENT/NO PROBLEMS WITH Myocardial Infarction 2009 On anticoagulant therapy plavix daily On home oxygen therapy 3-4 L CONTINUOUS MOSTLY, AND PRN PER PT Scoliosis Sleep apnea uses 4 L N/C MOSTLY ALL THE TIME SOB (shortness of breath) on exertion with wheezing Tinnitus of both ears Surgical History History of bilateral cataract extraction History of cardiac cath 2009 @ [facility] [place] with 1 stent--follows with Dr. Ramirez History of colonoscopy History of esophagogastroduodenoscopy (EGD) History of heart artery stent x1 2010--[facility] [place] History of lithotripsy History of open reduction and internal fixation (ORIF) procedure left foot fx/pinky toe fx--hardware in place History of testicular surgery "sac full of blood in testicle drained at 26 yrs old" History of tonsillectomy History of wisdom tooth extraction Hx of oral surgery (07/05/21) Multiple Teeth Extractions for Facial Infection - Sin Chacko, DMD NO CURRENT INFECTION PER PT (PAT CALL 08/18/21) Hx of right inguinal hernia repair Hx of vasectomy Stented coronary artery "bare metal stent to LAD 2008" Family History Sister Family history of reaction to anesthesia nausea/vomiting Mother Family history of diabetes mellitus Social History Smoking Status: Smoker, status unknown Tobacco Type: Cigarettes Cigarettes Per Day: SMOKED PIPE/CIGAR AGE 21'S; Second Hand Exposure: No; Hx Alcohol Use: Yes Alcohol type: hard liquor Hx Substance Use: No Preferred Language: Trinidadian Communication Ability: Effective Visual Impairment: No Limitations Slitter Cut Off Operator Required: No Beliefs That Will Affect Care: None marital status: / Current Living Situation: Alone Current Living Situation Comment: DOG How many Children do You have: 1 Feels Safe at Home: Yes Assistive Devices: Cane, Glasses, Oxygen - at Night and Oxygen - Continuous Allergies Allergies Allergy/AdvReac Type Severity Reaction Status Date / Time grapefruit Allergy Unknown WAS TOLD Verified 08/21/21 13:14 NOT TO TAKE BECAUSE ONE OF THE PILLS I TAKE No Known Drug Allergies Allergy Unknown . Verified 08/21/21 13:14 Home Meds Home Medications Medication Instructions Recorded Confirmed citalopram 40 mg tablet 40 mg PO QAM 03/14/18 08/21/21 clopidogrel 75 mg tablet (Plavix) 75 mg PO QAM 03/14/18 08/21/21 ipratropium 20 mcg-albuterol 100 1 puff inhalation QID 03/14/18 08/21/21 mcg/actuation mist for inhalation (Combivent Respimat) isosorbide mononitrate 30 mg 30 mg PO QAM 03/14/18 08/21/21 tablet,extended release 24 hr levothyroxine 100 mcg capsule 100 mcg PO QAM 03/14/18 08/21/21 multivitamin 1 tab PO QAM 03/14/18 08/21/21 nitroglycerin 0.4 mg sublingual 1 tab sublingual UD PRN Angina 03/14/18 08/21/21 tablet zoledronic acid 5 mg/100 mL in 1 dose IV YEARLY 03/14/18 08/21/21 mannitol 5 %-water intravenous piggybck (Reclast) calcium carbonate 600 mg-vitamin 1 tab PO QAM 12/23/19 08/21/21 D3 10 mcg (400 unit) tablet (Calcium 600 + D(3)) simvastatin 20 mg tablet 10 mg PO HS 12/23/19 08/21/21 propranolol 20 mg tablet 20 mg PO TID 07/31/20 08/21/21 acetaminophen 500 mg tablet 500 mg PO Q6H PRN Pain 07/03/21 08/21/21 benzonatate 100 mg capsule 100 mg PO TID PRN Cough 07/03/21 08/21/21 fluticasone propionate 50 1 spray intranasal BID 07/03/21 08/21/21 mcg/actuation nasal spray,suspension furosemide 40 mg tablet 40 mg PO QAM 07/03/21 08/21/21 pantoprazole 40 mg tablet,delayed 40 mg PO QA 07/03/21 08/21/21 release rosuvastatin 5 mg tablet 5 mg PO QAM 07/03/21 08/21/21 Results & Data (ED) Vital Signs Vital Signs - 24 hr 11/28/21 00:02 11/28/21 01:04 11/28/21 01:04 Temperature 37.7 C H Temperature Source Oral Pulse Rate 68 Pulse Rate [Apical] Respiratory Rate 26 H Respiratory Effort / Characteristics Non-Labored Spontaneous Respiratory Depth Normal Respiratory Pattern Regular Blood Pressure 124/68 Blood Pressure [Right Arm] Blood Pressure Mean 86 Blood Pressure Mean [Right Arm] Blood Pressure Position Lying Pulse Oximetry 97 90 Oxygen Delivery Method Nasal Cannula Nasal Cannula Nasal Cannula Oxygen Flow Rate 4 4 4 Sepsis Recent Fever Within 48 Hours No Sepsis New/Unexplained Change in Mental Status No Sepsis Action Taken by Nursing No Action Required 11/28/21 02:05 11/28/21 02:24 Temperature Temperature Source Pulse Rate 78 Pulse Rate [Apical] 70 Respiratory Rate 18 22 Respiratory Effort / Characteristics Non-Labored Spontaneous Respiratory Depth Normal Respiratory Pattern Regular Blood Pressure Blood Pressure [Right Arm] 117/66 Blood Pressure Mean Blood Pressure Mean [Right Arm] 83 Blood Pressure Position Pulse Oximetry 91 91 Oxygen Delivery Method Nasal Cannula Nasal Cannula Oxygen Flow Rate 4 4 Sepsis Recent Fever Within 48 Hours Sepsis New/Unexplained Change in Mental Status Sepsis Action Taken by Nursing Laboratory Data Result diagrams: 11/28/21 00:11 11/28/21 00:11 Lab Results 11/28/21 11/28/21 11/28/21 Range/Units 00:11 00:11 00:11 WBC 13.76 H (4.8-10.8) K/ul RBC 5.20 (4.63-6.08) M/uL Hgb 16.0 (14.0-18.0) g/dl Hct 48.0 (40.1-51.0) % MCV 92.3 (80.0-100.0) fL MCH 30.8 (25.0-34.0) pg MCHC 33.3 (32.0-36.0) g/dL RDW Std Deviation 51.4 H (36.4-46.3) fL RDW Coeff of Mannie 15.2 H (11.5-14.5) % Plt Count 175 (130-400) K/uL MPV 9.4 (9.4-12.4) fL Immature Gran % (Auto) 0.5 % Neut % (Auto) 77.1 % Lymph % (Auto) 9.2 % Bell % (Auto) 11.2 % Eos % (Auto) 1.6 % Baso % (Auto) 0.4 % Neut # (Auto) 10.61 H (1.4-6.5) K/uL Lymph # (Auto) 1.26 (1.2-3.4) K/uL Bell # (Auto) 1.54 H (0.24-0.82) K/uL Eos # (Auto) 0.22 (0-0.50) K/uL Baso # (Auto) 0.06 (0-0.2) K/uL Immature Gran # (Auto) 0.07 H (0.00-0.02) K/uL PT 10.9 (9.0-12.0) Seconds INR 1.0 (0.9-1.1) APTT 30.3 (21.0-31.0) Seconds PTT Ratio 1.1 VBG pH (7.36-7.41) VBG pCO2 (38-50) mmHg VBG pO2 mmHg VBG HCO3 mmol/L VBG O2 Saturation % VBG Base Excess mEq/L Sodium 138 (136-145) mmol/L Potassium 4.2 (3.5-5.1) mmol/L Chloride 101 (98-107) mmol/L Carbon Dioxide 31 (21-32) mmol/L Anion Gap 6 (3-11) BUN 6 (6-23) mg/dl Creatinine 1.10 (0.6-1.4) mg/dl Est Cr Clr Drug Dosing 51.7 ml/min Est GFR ( Amer) 73.1 ml/min Est GFR (Non-Af Amer) 63.1 ml/min BUN/Creatinine Ratio 5.5 L (10-20) Glucose 99 (70-99(Fasting)) mg/dl Calcium 9.4 (8.5-10.1) mg/dl Total Bilirubin 0.5 (0.2-1.0) mg/dl AST 21 (13-39) U/L ALT 13 (7-52) U/L Alkaline Phosphatase 89 (34-104) U/L Troponin I High Sens 10.5 (0-20) pg/ml B-Natriuretic Peptide (0-100) pg/ml Total Protein 7.1 (6.0-8.3) gm/dl Albumin 4.4 (3.4-5.0) gm/dl Globulin 2.7 (2.5-4.0) gm/dl Albumin/Globulin Ratio 1.6 (0.9-2) Urine Color Urine Appearance (Clear) Urine pH (4.5-7.5) Ur Specific [place] (1.000-1.030) Urine Protein (Negative) Urine Glucose (UA) (Negative) Urine Ketones (Negative) Urine Blood (Negative) Urine Nitrite (Negative) Urine Bilirubin (Negative) Urine Urobilinogen (Negative) Ur Leukocyte Esterase (Negative) Urine WBC (Auto) (0-5) /hpf Urine RBC (Auto) (0-4) /hpf U Hyaline Cast (Auto) (0-5) /lpf U Epithel Cells (Auto) (0-5) /lpf Urine Bacteria (Auto) (Negative) SARS-CoV-2 (PCR) (Negative) Influenza Type A (PCR) (Neg) Influenza Type B (PCR) (Neg) RSV (RT-PCR) (Neg) 11/28/21 11/28/21 11/28/21 Range/Units 00:21 00:21 01:19 WBC (4.8-10.8) K/ul RBC (4.63-6.08) M/uL Hgb (14.0-18.0) g/dl Hct (40.1-51.0) % MCV (80.0-100.0) fL MCH (25.0-34.0) pg MCHC (32.0-36.0) g/dL RDW Std Deviation (36.4-46.3) fL RDW Coeff of Mannie (11.5-14.5) % Plt Count (130-400) K/uL MPV (9.4-12.4) fL Immature Gran % (Auto) % Neut % (Auto) % Lymph % (Auto) % Bell % (Auto) % Eos % (Auto) % Baso % (Auto) % Neut # (Auto) (1.4-6.5) K/uL Lymph # (Auto) (1.2-3.4) K/uL Bell # (Auto) (0.24-0.82) K/uL Eos # (Auto) (0-0.50) K/uL Baso # (Auto) (0-0.2) K/uL Immature Gran # (Auto) (0.00-0.02) K/uL PT (9.0-12.0) Seconds INR (0.9-1.1) APTT (21.0-31.0) Seconds PTT Ratio VBG pH 7.38 (7.36-7.41) VBG pCO2 58 H (38-50) mmHg VBG pO2 44 mmHg VBG HCO3 34 mmol/L VBG O2 Saturation 69.7 % VBG Base Excess 7.3 mEq/L Sodium (136-145) mmol/L Potassium (3.5-5.1) mmol/L Chloride (98-107) mmol/L Carbon Dioxide (21-32) mmol/L Anion Gap (3-11) BUN (6-23) mg/dl Creatinine (0.6-1.4) mg/dl Est Cr Clr Drug Dosing ml/min Est GFR ( Amer) ml/min Est GFR (Non-Af Amer) ml/min BUN/Creatinine Ratio (10-20) Glucose (70-99(Fasting)) mg/dl Calcium (8.5-10.1) mg/dl Total Bilirubin (0.2-1.0) mg/dl AST (13-39) U/L ALT (7-52) U/L Alkaline Phosphatase (34-104) U/L Troponin I High Sens (0-20) pg/ml B-Natriuretic Peptide 75 (0-100) pg/ml Total Protein (6.0-8.3) gm/dl Albumin (3.4-5.0) gm/dl Globulin (2.5-4.0) gm/dl Albumin/Globulin Ratio (0.9-2) Urine Color Yellow Urine Appearance Clear (Clear) Urine pH 6.0 (4.5-7.5) Ur Specific [place] 1.011 (1.000-1.030) Urine Protein Negative (Negative) Urine Glucose (UA) Negative (Negative) Urine Ketones Negative (Negative) Urine Blood Trace H (Negative) Urine Nitrite Negative (Negative) Urine Bilirubin Negative (Negative) Urine Urobilinogen Negative (Negative) Ur Leukocyte Esterase Trace H (Negative) Urine WBC (Auto) 1-5 (0-5) /hpf Urine RBC (Auto) 0-4 (0-4) /hpf U Hyaline Cast (Auto) 0 (0-5) /lpf U Epithel Cells (Auto) 10-20 H (0-5) /lpf Urine Bacteria (Auto) Negative (Negative) SARS-CoV-2 (PCR) (Negative) Influenza Type A (PCR) (Neg) Influenza Type B (PCR) (Neg) RSV (RT-PCR) (Neg) 11/28/21 Range/Units 01:27 WBC (4.8-10.8) K/ul RBC (4.63-6.08) M/uL Hgb (14.0-18.0) g/dl Hct (40.1-51.0) % MCV (80.0-100.0) fL MCH (25.0-34.0) pg MCHC (32.0-36.0) g/dL RDW Std Deviation (36.4-46.3) fL RDW Coeff of Mannie (11.5-14.5) % Plt Count (130-400) K/uL MPV (9.4-12.4) fL Immature Gran % (Auto) % Neut % (Auto) % Lymph % (Auto) % Bell % (Auto) % Eos % (Auto) % Baso % (Auto) % Neut # (Auto) (1.4-6.5) K/uL Lymph # (Auto) (1.2-3.4) K/uL Bell # (Auto) (0.24-0.82) K/uL Eos # (Auto) (0-0.50) K/uL Baso # (Auto) (0-0.2) K/uL Immature Gran # (Auto) (0.00-0.02) K/uL PT (9.0-12.0) Seconds INR (0.9-1.1) APTT (21.0-31.0) Seconds PTT Ratio VBG pH (7.36-7.41) VBG pCO2 (38-50) mmHg VBG pO2 mmHg VBG HCO3 mmol/L VBG O2 Saturation % VBG Base Excess mEq/L Sodium (136-145) mmol/L Potassium (3.5-5.1) mmol/L Chloride (98-107) mmol/L Carbon Dioxide (21-32) mmol/L Anion Gap (3-11) BUN (6-23) mg/dl Creatinine (0.6-1.4) mg/dl Est Cr Clr Drug Dosing ml/min Est GFR ( Amer) ml/min Est GFR (Non-Af Amer) ml/min BUN/Creatinine Ratio (10-20) Glucose (70-99(Fasting)) mg/dl Calcium (8.5-10.1) mg/dl Total Bilirubin (0.2-1.0) mg/dl AST (13-39) U/L ALT (7-52) U/L Alkaline Phosphatase (34-104) U/L Troponin I High Sens (0-20) pg/ml B-Natriuretic Peptide (0-100) pg/ml Total Protein (6.0-8.3) gm/dl Albumin (3.4-5.0) gm/dl Globulin (2.5-4.0) gm/dl Albumin/Globulin Ratio (0.9-2) Urine Color Urine Appearance (Clear) Urine pH (4.5-7.5) Ur Specific [place] (1.000-1.030) Urine Protein (Negative) Urine Glucose (UA) (Negative) Urine Ketones (Negative) Urine Blood (Negative) Urine Nitrite (Negative) Urine Bilirubin (Negative) Urine Urobilinogen (Negative) Ur Leukocyte Esterase (Negative) Urine WBC (Auto) (0-5) /hpf Urine RBC (Auto) (0-4) /hpf U Hyaline Cast (Auto) (0-5) /lpf U Epithel Cells (Auto) (0-5) /lpf Urine Bacteria (Auto) (Negative) SARS-CoV-2 (PCR) POSITIVE A* (Negative) Influenza Type A (PCR) Negative (Neg) Influenza Type B (PCR) Negative (Neg) RSV (RT-PCR) Negative (Neg) Administered Medications Discontinued Medications Albuterol (Albut/Ipratrop 3mg/0.5mg Neb 3 Ml Vial) 3 ml INH NOW STA Stop: 11/28/21 00:09 Last Admin: 11/28/21 00:21 Dose: 3 ml Documented By: THOMAS Ioversol (Optiray 300 500ml) 114 ml IV ONCE ONE Stop: 11/28/21 02:05 Last Admin: 11/28/21 02:05 Dose: 114 ml Documented By: SUN Methylprednisolone (Methylprednisolone 125 Mg/2 Ml Vial) 125 mg IV NOW STA Stop: 11/28/21 00:09 Last Admin: 11/28/21 00:21 Dose: 125 mg Documented By: THOMAS Morphine Sulfate (Morphine Sulfate 2 Mg/Ml Carp) 2 mg IV NOW STA Stop: 11/28/21 02:10 Last Admin: 11/28/21 02:21 Dose: 2 mg Documented By: JT Discharge Plan Visit Data Chief Complaint: Shortness of Breath/Dyspnea Stated Complaint: cough ED Provider: Job Giron Discharge Problem: COVID-19, Pulmonary embolism Forms Stand Alone Forms: My [facility] Prescriptions Prescriptions: No Action multivitamin Tablet 1 tab PO QAM citalopram 40 mg Tablet 40 mg PO QAM isosorbide mononitrate 30 mg Tablet Extended Release 24 Hr 30 mg PO QAM clopidogrel [Plavix] 75 mg Tablet 75 mg PO QAM nitroglycerin 0.4 mg Tablet, Sublingual 1 tab Sublingual UD PRN (Reason: Angina) Label Comments: NEVER HAD TO USE zoledronic [id number] [Reclast] 5 mg/100 mL Piggyback 1 dose IV YEARLY levothyroxine 100 mcg Capsule 100 mcg PO QAM Combivent Respimat 20-100 mcg/actuation Mist 1 puff INHALATION QID calcium carbonate-vitamin D3 [Calcium 600 + D(3)] 600 mg(1,500mg) -400 unit Tablet 1 tab PO QAM simvastatin 20 mg tablet 10 mg PO HS propranolol 20 mg tablet 20 mg PO TID Label Comments: FOR TREMOR acetaminophen 500 mg Tablet 500 mg PO Q6H PRN (Reason: Pain) benzonatate 100 mg capsule 100 mg PO TID PRN (Reason: Cough) pantoprazole 40 mg tablet,delayed release (DR/EC) 40 mg PO QAM fluticasone propionate 50 mcg/actuation spray,suspension 1 spray INTRANASAL BID rosuvastatin 5 mg tablet 5 mg PO QAM furosemide 40 mg tablet 40 mg PO QAM Label Comments: HAD ME STOP FOR SOME REASON, NOT CURRENTLY TAKING Referrals Referrals: Jennifer Sarkar MD [Primary Care Provider] - : Pulmonary embolism Qualifiers: Pulmonary embolism type: unspecified Chronicity: acute Acute cor pulmonale presence: without acute cor pulmonale Qualified Code(s): I26.99 - Other pulmonary embolism without acute cor pulmonale
[2021-11-28 00:23] LABS: Basophils # (auto) 0.06 K/uL (0-0.2); Basophils % (auto) 0.4 %; Eosinophils # (auto) 0.22 K/uL (0-0.50); Eosinophils % (auto) 1.6 %; Immature Granulocytes # (auto) 0.07 K/uL (0.00-0.02); Immature Granulocytes % (auto) 0.5 %; Lymphocytes # (auto) 1.26 K/uL (1.2-3.4); Lymphocytes % (auto) 9.2 %; Mean Corpuscular Hemoglobin 30.8 pg (25.0-34.0); Mean Corpuscular Hgb Conc 33.3 g/dL (32.0-36.0); Mean Corpuscular Volume 92.3 fL (80.0-100.0); Mean Platelet Volume 9.4 fL (9.4-12.4); Monocytes # (auto) 1.54 K/uL (0.24-0.82); Monocytes % (auto) 11.2 %; Neutrophils # (auto) 10.61 K/uL (1.4-6.5); Neutrophils % (auto) 77.1 %; Platelet Count 175 K/uL (130-400); RDW Coefficient of Variation 15.2 % (11.5-14.5); RDW Standard Deviation 51.4 fL (36.4-46.3); White Blood Count 13.76 K/ul (4.8-10.8)
[2021-11-28 00:37] LABS: Partial Thromboplastin Ratio 1.1; Partial Thromboplastin Time 30.3 Seconds (21.0-31.0); Prothrombin Time 10.9 Seconds (9.0-12.0)
[2021-11-28 00:38] LABS: Base Excess VBG 7.3 mEq/L; HCO3 VBG 34 mmol/L; Oxygen Saturation VBG 69.7 %; PCO2 VBG 58 mmHg (38-50); PO2 VBG 44 mmHg; pH VBG 7.38 (7.36-7.41)
[2021-11-28 00:51] LABS: Troponin I High Sensitivity 10.5 pg/ml (0-20)
[2021-11-28 01:01] LABS: Albumin Globulin Ratio 1.6 (0.9-2); Albumin Level 4.4 gm/dl (3.4-5.0); BUN Creatinine Ratio 5.5 (10-20); Bilirubin,Total 0.5 mg/dl (0.2-1.0); Calcium 9.4 mg/dl (8.5-10.1); Creatinine Clr Calc Pharmacy 51.7 ml/min; Est GFR (African American) 73.1 ml/min; Est GFR (Non-African American) 63.1 ml/min; Globulin 2.7 gm/dl (2.5-4.0); Potassium 4.2 mmol/L (3.5-5.1); Total Protein 7.1 gm/dl (6.0-8.3)
[2021-11-28 01:40] LABS: Appearance Urine Clear (Clear); Bacteria Urine Automated Negative (Negative); Bilirubin Urine Negative (Negative); Blood Urine Trace (Negative); Cast Urine Automated 0 /lpf (0-5); Color Urine Yellow; Glucose Urine UA Negative (Negative); Ketones Urine Negative (Negative); Leukocyte Esterase Urine Trace (Negative); Nitrite Urine Negative (Negative); Protein Urine Negative (Negative); RBC Urine Automated 0-4 /hpf (0-4); Specific Gravity Urine 1.011 (1.000-1.030); Urobilinogen Urine Negative (Negative)
[2021-11-28] MEDS ORDERED: OPTIRAY 300 500mL IV ONE (02:04)
[2021-11-28] MEDS ORDERED: MoRPHine SULFATE 2 MG/ML CARP IV STA (02:09)
[2021-11-28 02:12] LABS: Influenza A virus by PCR Negative (Neg); Influenza B virus by PCR Negative (Neg); RSV by PCR Negative (Neg)
[2021-11-28 02:23] LABS: SARS CoV2 RNA(COVID-19) InHosp POSITIVE (Negative)
[2021-11-28] MEDS ORDERED: Heparin IV Adult Wt-Based Standard *NO* Bolus Protocol IV ONE (02:49)
--- NOTE | 2021-11-28 03:01 | History & Physical Report ---
Date of Service November 28, 2021 Assessment & Plan (1) Acute and chronic respiratory failure with hypercapnia: Plan: Underlying restrictive lung disease/granulomatous lung disease, EZEQUIEL (CPAP intolerance), nocturnal hypoxemia nasal cannula at night, Secondary to severe COVID-19 illness Multifactorial : Complicated bronchitis, possible sepsis Pulmonary embolus, initial occurrence hx chronic right-sided heart failure (EF 55 to 60%, TTE 2020) hx CAD status post stenting HTN, stable hypothyroidism, euthyroid as of recent outpatient TSH from August 2021 essential tremors at baseline Medical telemetry Supplemental O2 Decadron for severe COVID-19 illness Doxycycline for complicated bronchitis IV heparin for pulmonary embolus Pulmonary consult Re: Respiratory failure, severe COVID-19 illness DVT prophylaxis. IV heparin Full code Patient daughter requesting updates from providers. Ms. Ciara Mcgrath, contact #[phone]. Text document was generated using [employer] voice recognition software. It may contain grammatical or spelling errors. Kindly contact undersigned for clarification of any documentation item in question. History of Present Illness Chief Complaint: Worsening shortness of breath, cough Primary Care Provider: Jennifer Sarkar MD History obtained from patient, family, and records. Medical history significant for chronic right-sided heart failure (EF 55 to 60%, TTE 2020) on Lasix and Jardiance, CAD status post stenting, restrictive lung disease/granulomatous lung disease, EZEQUIEL (CPAP intolerance), nocturnal hypoxemia nasal cannula at night, HTN, hypothyroidism, essential tremors, chronic back pain, past tobacco abuse Last confinement June 2021 for periodontal abscess status post drainage. 2 days ago, patient noted junky cough symptoms and shortness of breath worse than usual. No recent choking episodes, chest pain and headache with coughing. No unusual fluid retention/weight gain as per patient. No known recent sick contacts. Patient completed COVID-19 vaccination. Solu-Medrol administered at the ER. IV heparin initiated for pulmonary embolism. MEDICAL HISTORY: As above. SURGERIES: Hernia surgery, foot surgery, ESWL, tonsillectomy, cataract surgeries FAMILY HISTORY: Lung cancer, DM PERSONAL SOCIAL HISTORY: Past tobacco use. 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 Allergies Allergy/AdvReac Type Severity Reaction Status Date / Time grapefruit Allergy Unknown WAS TOLD Verified 11/28/21 03:20 NOT TO TAKE BECAUSE ONE OF THE PILLS I TAKE No Known Drug Allergies Allergy Unknown . Verified 11/28/21 03:20 tramadol AdvReac Mild Hallucinati Verified 11/28/21 09:12 ng Home Medications Medication Instructions Recorded Confirmed Type citalopram 40 mg tablet 40 mg PO QAM 03/14/18 11/28/21 History clopidogrel 75 mg tablet (Plavix) 75 mg PO QAM 03/14/18 11/28/21 History ipratropium 20 mcg-albuterol 100 1 puff inhalation QID 03/14/18 11/28/21 History mcg/actuation mist for inhalation (Combivent Respimat) isosorbide mononitrate 30 mg 30 mg PO QAM 03/14/18 11/28/21 History tablet,extended release 24 hr levothyroxine 100 mcg capsule 100 mcg PO QA 03/14/18 11/28/21 History multivitamin 1 tab PO QAM 03/14/18 11/28/21 History nitroglycerin 0.4 mg sublingual 1 tab sublingual UD PRN Angina 03/14/18 11/28/21 History tablet zoledronic acid 5 mg/100 mL in 1 dose IV YEARLY 03/14/18 11/28/21 History mannitol 5 %-water intravenous piggybck (Reclast) calcium carbonate 600 mg-vitamin 1 tab PO QA 12/23/19 11/28/21 History D3 10 mcg (400 unit) tablet (Calcium 600 + D(3)) propranolol 20 mg tablet 20 mg PO TID 07/31/20 11/28/21 History acetaminophen 500 mg tablet 500 mg PO Q6H PRN Pain 07/03/21 11/28/21 History benzonatate 100 mg capsule 100 mg PO TID PRN Cough 07/03/21 11/28/21 History fluticasone propionate 50 2 spray intranasal QA 07/03/21 11/28/21 History mcg/actuation nasal spray,suspension pantoprazole 40 mg tablet,delayed 40 mg PO HS 07/03/21 11/28/21 History release rosuvastatin 5 mg tablet 5 mg PO QAM 07/03/21 11/28/21 History empagliflozin 10 mg tablet 10 mg PO QAM 11/28/21 11/28/21 History (Jardiance) furosemide 20 mg tablet 40 mg PO QA 11/28/21 11/28/21 History Past Med/Surg History Medical History Ankle swelling PT PLANS TO DISCUSS WITH DR PT REPORTS DR HAD HIM STOP FLUID PILL AND NOT SURE WHY Cervical spine fracture LAST SUMMER NO LIMITATIONS Choking REASON FOR UPCOMING PROCEDURE PER PT Chronic back pain Chronic obstructive pulmonary disease COPD (chronic obstructive pulmonary disease) Depression Dyslipidemia Fall HX, NOT RECENTLY Familial tremor reason for propranolol Generalized muscle weakness GERD (gastroesophageal reflux disease) Hyperlipidemia Hypertension Hypothyroidism Kidney stones ONE PRESENT/NO PROBLEMS WITH Myocardial Infarction 2009 On anticoagulant therapy plavix daily On home oxygen therapy 3-4 L CONTINUOUS MOSTLY, AND PRN PER PT Scoliosis Sleep apnea uses 4 L N/C MOSTLY ALL THE TIME SOB (shortness of breath) on exertion with wheezing Tinnitus of both ears Surgical History History of bilateral cataract extraction History of cardiac cath 2009 @ [facility] [place] with 1 stent--follows with Dr. Ramirez History of colonoscopy History of esophagogastroduodenoscopy (EGD) History of heart artery stent x1 2009--[facility] [place] History of lithotripsy History of open reduction and internal fixation (ORIF) procedure left foot fx/pinky toe fx--hardware in place History of testicular surgery "sac full of blood in testicle drained at 26 yrs old" History of tonsillectomy History of wisdom tooth extraction Hx of oral surgery (07/05/21) Multiple Teeth Extractions for Facial Infection - Sin Chacko, DMD NO CURRENT INFECTION PER PT (PAT CALL 08/18/21) Hx of right inguinal hernia repair Hx of vasectomy Stented coronary artery "bare metal stent to LAD 2008" Family History Sister Family history of reaction to anesthesia nausea/vomiting Mother Family history of diabetes mellitus Social History Smoking Status: Former smoker Tobacco Type: Cigarettes Cigarettes Per Day: SMOKED PIPE/CIGAR AGE 21'S; Second Hand Exposure: No; Hx Alcohol Use: Yes Alcohol type: hard liquor Hx Substance Use: No Preferred Language: Guinean Communication Ability: Effective Communication Tools: Other Visual Impairment: No Limitations Base Ply Hand Required: Yes Beliefs That Will Affect Care: None marital status: / Current Living Situation: Alone Current Living Situation Comment: DOG How many Children do You have: 1 Other Information That Helps Us Care for You: No Feels Safe at Home: Yes Assistive Devices: Cane Review of Systems Review of Systems: As per HPI, all other systems reviewed and negative Physical Exam Physical Exam: GENERAL: Slightly uncomfortable, tremulous, no respiratory distress SKIN: Normal color, warm HEENT: [place] palpebral conjunctivae, no ptosis, dry buccal mucosa, nasal cannula in place NECK : Supple, no tenderness CHEST : Decreased breath sounds, occasional expiratory wheezes, no tenderness HEART : RRR, no obvious murmurs ABDOMEN: Some distention, nontender EXTREMITIES : Minimal LE swelling, no LE tenderness, no other conspicuous deformities noted NEUROLOGIC : Coherent, no facial asymmetry, rest tremors, gait and stance not assessed Results & Data Results & Data ([facility]) Vital Signs (Past 12 Hours) Vital Signs Temp Pulse Pulse Resp BP BP Pulse Ox 11/28/21 02:24 70 22 117/66 91 11/28/21 02:05 78 18 91 11/28/21 01:04 90 11/28/21 01:04 11/28/21 00:02 37.7 C H 68 26 H 124/68 97 O2 Del Method O2 Flow Rate 11/28/21 02:24 Nasal Cannula 4 11/28/21 02:05 Nasal Cannula 4 11/28/21 01:04 Nasal Cannula 4 11/28/21 01:04 Nasal Cannula 4 11/28/21 00:02 Nasal Cannula 4 Laboratory Results Laboratory Results WBC 13.76 K/ul (4.8-10.8) H 11/28/21 00:11 RBC 5.20 M/uL (4.63-6.08) 11/28/21 00:11 Hgb 16.0 g/dl (14.0-18.0) 11/28/21 00:11 Hct 48.0 % (40.1-51.0) 11/28/21 00:11 MCV 92.3 fL (80.0-100.0) 11/28/21 00:11 MCH 30.8 pg (25.0-34.0) 11/28/21 00:11 MCHC 33.3 g/dL (32.0-36.0) 11/28/21 00:11 RDW Std Deviation 51.4 fL (36.4-46.3) H 11/28/21 00:11 RDW Coeff of Mannie 15.2 % (11.5-14.5) H 11/28/21 00:11 Plt Count 175 K/uL (130-400) 11/28/21 00:11 MPV 9.4 fL (9.4-12.4) 11/28/21 00:11 Immature Gran % (Auto) 0.5 % 11/28/21 00:11 Neut % (Auto) 77.1 % 11/28/21 00:11 Lymph % (Auto) 9.2 % 11/28/21 00:11 Logan % (Auto) 11.2 % 11/28/21 00:11 Eos % (Auto) 1.6 % 11/28/21 00:11 Baso % (Auto) 0.4 % 11/28/21 00:11 Neut # (Auto) 10.61 K/uL (1.4-6.5) H 11/28/21 00:11 Lymph # (Auto) 1.26 K/uL (1.2-3.4) 11/28/21 00:11 Logan # (Auto) 1.54 K/uL (0.24-0.82) H 11/28/21 00:11 Eos # (Auto) 0.22 K/uL (0-0.50) 11/28/21 00:11 Baso # (Auto) 0.06 K/uL (0-0.2) 11/28/21 00:11 Immature Gran # (Auto) 0.07 K/uL (0.00-0.02) H 11/28/21 00:11 PT 10.9 Seconds (9.0-12.0) 11/28/21 00:11 INR 1.0 (0.9-1.1) 11/28/21 00:11 APTT 30.3 Seconds (21.0-31.0) 11/28/21 00:11 PTT Ratio 1.1 11/28/21 00:11 VBG pH 7.38 (7.36-7.41) 11/28/21 00:21 VBG pCO2 58 mmHg (38-50) H 11/28/21 00:21 VBG pO2 44 mmHg 11/28/21:21 VBG HCO3 34 mmol/L 11/28/21 00:21 VBG O2 Saturation 69.7 % 11/28/21:21 VBG Base Excess 7.3 mEq/L 11/28/21:21 Sodium 138 mmol/L (136-145) 11/28/21 00:11 Potassium 4.2 mmol/L (3.5-5.1) 11/28/21 00:11 Chloride 101 mmol/L (98-107) 11/28/21 00:11 Carbon Dioxide 31 mmol/L (21-32) 11/28/21 00:11 Anion Gap 6 (3-11) 11/28/21 00:11 BUN 6 mg/dl (6-23) 11/28/21 00:11 Creatinine 1.10 mg/dl (0.6-1.4) 11/28/21 00:11 Est Cr Clr Drug Dosing 51.7 ml/min 11/28/21 00:11 Est GFR ( Amer) 73.1 ml/min 11/28/21 00:11 Est GFR (Non-Af Amer) 63.1 ml/min 11/28/21 00:11 BUN/Creatinine Ratio 5.5 (10-20) L 11/28/21 00:11 Glucose 99 mg/dl (70-99(Fasting)) 11/28/21 00:11 Calcium 9.4 mg/dl (8.5-10.1) 11/28/21 00:11 Total Bilirubin 0.5 mg/dl (0.2-1.0) 11/28/21 00:11 AST 21 U/L (13-39) 11/28/21 00:11 ALT 13 U/L (7-52) 11/28/21 00:11 Alkaline Phosphatase 89 U/L (34-104) 11/28/21 00:11 Troponin I High Sens 10.5 pg/ml (0-20) 11/28/21 00:11 B-Natriuretic Peptide 75 pg/ml (0-100) 11/28/21 00:21 Total Protein 7.1 gm/dl (6.0-8.3) 11/28/21 00:11 Albumin 4.4 gm/dl (3.4-5.0) 11/28/21 00:11 Globulin 2.7 gm/dl (2.5-4.0) 11/28/21 00:11 Albumin/Globulin Ratio 1.6 (0.9-2) 11/28/21 00:11 Urine Color Yellow 11/28/21 01:19 Urine Appearance Clear (Clear) 11/28/21 01:19 Urine pH 6.0 (4.5-7.5) 11/28/21 01:19 Ur Specific [place] 1.011 (1.000-1.030) 11/28/21 01:19 Urine Protein Negative (Negative) 11/28/21 01:19 Urine Glucose (UA) Negative (Negative) 11/28/21 01:19 Urine Ketones Negative (Negative) 11/28/21 01:19 Urine Blood Trace (Negative) H 11/28/21 01:19 Urine Nitrite Negative (Negative) 11/28/21 01:19 Urine Bilirubin Negative (Negative) 11/28/21 01:19 Urine Urobilinogen Negative (Negative) 11/28/21 01:19 Ur Leukocyte Esterase Trace (Negative) H 11/28/21 01:19 Urine WBC (Auto) 1-5 /hpf (0-5) 11/28/21 01:19 Urine RBC (Auto) 0-4 /hpf (0-4) 11/28/21 01:19 U Hyaline Cast (Auto) 0 /lpf (0-5) 11/28/21 01:19 U Epithel Cells (Auto) 10-20 /lpf (0-5) H 11/28/21 01:19 Urine Bacteria (Auto) Negative (Negative) 11/28/21 01:19 SARS-CoV-2 (PCR) POSITIVE (Negative) A* 11/28/21 01:27 Influenza Type A (PCR) Negative (Neg) 11/28/21 01:27 Influenza Type B (PCR) Negative (Neg) 11/28/21 01:27 RSV (RT-PCR) Negative (Neg) 11/28/21 01:[address] chest initial read: Atelectatic changes at the lung bases. No infiltrate, effusion or pneumothorax. The mediastinumis intact. There is mild enlargement of the heart. Minimal atherosclerosis of the aortic arch. There are coronaryarterycalcifications. No aneurysmor dissection. Small left upper lobe PEs. Small lingular PE. Cholelithiasis. Granulomas of the spleen. Severe scoliotic curvature of the spine. Impression: Small left PEs. No right heart strain EKG as per my interpretation : Rate 65, NSR, normal axis, T wave abnormalities lateral leads
[2021-11-28] MEDS ORDERED: HEPARIN SODIUM/DEXTROSE 25,000 UNITS/500 ML BAG IV SCH (03:15)
[2021-11-28] MEDS ORDERED: DOXYCYCLINE HYCLATE 100 MG in DEXTROSE 5% 100 ML IV STA (03:58)
[2021-11-28] MEDS ORDERED: SODIUM CHLORIDE 0.9% 500 ML IV ONE (04:08)
[2021-11-28] MEDS ORDERED: MAGNESIUM SULFATE / D5W 1 GM/100 ML BAG IV ONE (04:08)
[2021-11-28] MEDS ORDERED: NITROGLYCERIN SL 0.4 MG/TAB TAB SL STA (04:40)
[2021-11-28] MEDS ORDERED: NITROGLYCERIN SL 0.4 MG/TAB TAB ONE (04:42)
[2021-11-28] MEDS ORDERED: PROMETHAZINE HCL 12.5 MG in SODIUM CHLORIDE 0.9% 50 ML IV PRN (06:21)
[2021-11-28] MEDS ORDERED: traMADol HCL 50 MG TABLET PO PRN (06:21)
[2021-11-28] MEDS: LEVOTHYROXINE SODIUM 100 MCG TABLET PO SCH (07:27)
--- NOTE | 2021-11-28 08:05 | XRay Report ---
XR chest 1V portable HISTORY: 81 years-old Male Dyspnea acute shortness of breath COMPARISON: Chest radiograph 08/21/2021 TECHNIQUE: AP view of the chest FINDINGS: Cardiac silhouette is enlarged. Chronic right hemidiaphragmatic elevation with bibasilar atelectasis/ scarring. Pulmonary vascular congestion without overt pulmonary edema or large pleural effusion. No p neumothorax. Degenerative changes of the shoulders and spine with sigmoidal thoracolumbar scoliosis. IMPRESSION: 1. Cardiomegaly with pulmonary vascular congestion. 2. Chronic right hemidiaphragmatic elevation with bibasilar atelectasis. 3. Sigmoidal thoracolumbar scoliosis. ACT 112: Negative or not required by law. The above report was generated using voice recognition software. It may contain grammatical, syntax o r spelling errors. Electronically signed by: Michael Fofana M.D. 11/28/2021 8:03 AM
--- NOTE | 2021-11-28 08:44 | Pulmonary Consultation ---
Date of Consultation November 28, 2021 Assessment & Plan (1) Acute on chronic respiratory failure with hypoxemia: (2) COVID-19: (3) Scoliosis: (4) Restrictive lung disease: Plan CT chest 11/28/2021 personally reviewed: Elevated right hemidiaphragm with depend ent atelectasis of the right lower lobe No signs of any pulmonary infiltrate, right upper lobe granuloma calcified Severe kyphoscoliosis No clear evidence of pulmonary embolism No mediastinal lymphadenopathy ABG 7.4//74 on 4 L nasal cannula -- Acute on chronic hypoxic respiratory failure Patient is chronically on 2 L at home D-dimer negative Continue with O2 supplementation to keep O2 saturation between 88-92% -- COVID-[address] chest I do not see any evidence of groundglass opacities Requiring more oxygen than baseline. --Restrictive lung disease Likely secondary to elevation of right hemidiaphragm on top of severe kyphoscoliosis BiPAP/CPAP will be beneficial for the patient if he is willing to use it --EZEQUIEL Not able to tolerate CPAP Plan: No clear evidence of PE, D-dimer negative. Okay to discontinue heparin drip Patient is COVID-19 positive but no pulmonary infiltrate. We will start the Start patient on hypertonic saline nebulized along with flutter valve Continue with diuretics to keep the patient negative balance Case was discussed with Dr Reeder Please note the above document was generated using voice recognition software. It may contain grammatical, syntax or spelling errors.Any formal questions or concerns about the content, text or information contained within the body of this dictation should be directly addressed to the provider for clarification. History of Present Illness Attending Physician: Cr Reeder MD History of Present Illness 81-year-old male admitted to the hospital with complaints of cough and shortness of breath worse than usual Past medical history: HFpEF, EZEQUIEL not able to tolerate CPAP, nocturnal hypoxia, hypertension, hypothyroidism, restrictive lung disease Patient was found to be COVID-positive At the time of examination patient was on 4 L nasal cannula saturating 90% He was not in any respiratory distress Does complain of cough and having difficulty bringing up the phlegm Denies any hemoptysis No fever or chills at home. Complains of generalized lethargy. No dysuria, no diarrhea. No headache, no blurry vision Social history: He is to work in [employer] for 35 years. Used to smoke pipe approximately 50 years ago Allergies Allergy/AdvReac Type Severity Reaction Status Date / Time grapefruit Allergy Unknown WAS TOLD Verified 11/28/21 03:20 NOT TO TAKE BECAUSE ONE OF THE PILLS I TAKE No Known Drug Allergies Allergy Unknown . Verified 11/28/21 03:20 tramadol AdvReac Mild Hallucinati Verified 11/28/21 09:12 ng Home Medications Medication Instructions Recorded Confirmed Type citalopram 40 mg tablet 40 mg PO QAM 03/14/18 11/28/21 History clopidogrel 75 mg tablet (Plavix) 75 mg PO QAM 03/14/18 11/28/21 History ipratropium 20 mcg-albuterol 100 1 puff inhalation QID 03/14/18 11/28/21 History mcg/actuation mist for inhalation (Combivent Respimat) isosorbide mononitrate 30 mg 30 mg PO QA 03/14/18 11/28/21 History tablet,extended release 24 hr levothyroxine 100 mcg capsule 100 mcg PO QA 03/14/18 11/28/21 History multivitamin 1 tab PO QAM 03/14/18 11/28/21 History nitroglycerin 0.4 mg sublingual 1 tab sublingual UD PRN Angina 03/14/18 11/28/21 History tablet zoledronic acid 5 mg/100 mL in 1 dose IV YEARLY 03/14/18 11/28/21 History mannitol 5 %-water intravenous piggybck (Reclast) calcium carbonate 600 mg-vitamin 1 tab PO QAM 12/23/19 11/28/21 History D3 10 mcg (400 unit) tablet (Calcium 600 + D(3)) propranolol 20 mg tablet 20 mg PO TID 07/31/20 11/28/21 History acetaminophen 500 mg tablet 500 mg PO Q6H PRN Pain 07/03/21 11/28/21 History benzonatate 100 mg capsule 100 mg PO TID PRN Cough 07/03/21 11/28/21 History fluticasone propionate 50 2 spray intranasal QAM 07/03/21 11/28/21 History mcg/actuation nasal spray,suspension pantoprazole 40 mg tablet,delayed 40 mg PO HS 07/03/21 11/28/21 History release rosuvastatin 5 mg tablet 5 mg PO QAM 07/03/21 11/28/21 History empagliflozin 10 mg tablet 10 mg PO QAM 11/28/21 11/28/21 History (Jardiance) furosemide 20 mg tablet 40 mg PO QAM 11/28/21 11/28/21 History Patient History Medical History Ankle swelling PT PLANS TO DISCUSS WITH DR PT REPORTS DR HAD HIM STOP FLUID PILL AND NOT SURE WHY Cervical spine fracture LAST SUMMER NO LIMITATIONS Choking REASON FOR UPCOMING PROCEDURE PER PT Chronic back pain Chronic obstructive pulmonary disease COPD (chronic obstructive pulmonary disease) Depression Dyslipidemia Fall HX, NOT RECENTLY Familial tremor reason for propranolol Generalized muscle weakness GERD (gastroesophageal reflux disease) Hyperlipidemia Hypertension Hypothyroidism Kidney stones ONE PRESENT/NO PROBLEMS WITH Myocardial Infarction 2009 On anticoagulant therapy plavix daily On home oxygen therapy 3-4 L CONTINUOUS MOSTLY, AND PRN PER PT Scoliosis Sleep apnea uses 4 L N/C MOSTLY ALL THE TIME SOB (shortness of breath) on exertion with wheezing Tinnitus of both ears Surgical History History of bilateral cataract extraction History of cardiac cath 2009 @ [facility] [place] with 1 stent--follows with Dr. Ramirez History of colonoscopy History of esophagogastroduodenoscopy (EGD) History of heart artery stent x1 2009--[facility] [place] History of lithotripsy History of open reduction and internal fixation (ORIF) procedure left foot fx/pinky toe fx--hardware in place History of testicular surgery "sac full of blood in testicle drained at 26 yrs old" History of tonsillectomy History of wisdom tooth extraction Hx of oral surgery (07/05/21) Multiple Teeth Extractions for Facial Infection - Sin Chacko, DMD NO CURRENT INFECTION PER PT (PAT CALL 08/18/21) Hx of right inguinal hernia repair Hx of vasectomy Stented coronary artery "bare metal stent to LAD 2008" Family History Sister Family history of reaction to anesthesia nausea/vomiting Mother Family history of diabetes mellitus Social History Smoking Status: Former smoker Tobacco Type: Cigarettes Cigarettes Per Day: SMOKED PIPE/CIGAR AGE 21'S; Second Hand Exposure: No; Hx Alcohol Use: Yes Alcohol type: hard liquor Hx Substance Use: No Preferred Language: Guamanian Communication Ability: Effective Communication Tools: Other Visual Impairment: No Limitations 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 Beliefs That Will Affect Care: None marital status: Current Living Situation: Alone Current Living Situation Comment: DOG How many Children do You have: 1 Other Information That Helps Us Care for You: No Feels Safe at Home: Yes Assistive Devices: Cane, Oxygen - Continuous and Walker Review of Systems Review of Systems: All systems reviewed & are unremarkable except as noted in HPI & below Physical Exam Physical Exam: Constitutional: No acute distress HEENT: EOMI, PERRLA Respiratory system: Decreased air entry bilaterally, more decreased on the right side, positive crackles bilateral lower lobes, no wheeze, no rhonchi CVS: S1-S2 positive Abdomen: Soft, nontender, nondistended, positive bowel sounds x4, obese Extremities: +2 pulses bilaterally radialis/ dorsalis pedis, no cyanosis, +1 pitting edema bilateral lower extremity Neuro: Awake alert oriented x3 Psych: Normal mood and affect G/U: No ramos Musculoskeletal: Scoliosis of the thoracic spine Skin: no rashes, warm and dry Lymphatic: no cervical or axillary lymphadenopathy Results & Data Results & [facility] ([facility]) Vital Signs (Past 12 Hours) Vital Signs Temp Pulse Pulse Resp BP BP Pulse Ox 11/28/21 07:25 36.6 C 64 18 115/67 93 11/28/21 06:20 11/28/21 06:20 36.8 C 68 20 113/69 93 11/28/21 05:39 64 18 113/66 92 11/28/21 04:42 66 22 117/68 91 11/28/21 02:24 70 22 117/66 91 11/28/21 02:05 78 18 91 11/28/21 01:04 90 11/28/21 01:04 11/28/21 00:02 37.7 C H 68 26 H 124/68 97 O2 Del Method O2 Flow Rate 11/28/21 07:25 Nasal Cannula 4 11/28/21 06:20 Nasal Cannula 4 11/28/21 06:20 Nasal Cannula 3 11/28/21 05:39 Room Air 11/28/21 04:42 Nasal Cannula 4 10/08/22 02:24 Nasal Cannula 4 11/28/21 02:05 Nasal Cannula 4 11/28/21 01:04 Nasal Cannula 4 11/28/21 01:04 Nasal Cannula 4 11/28/21 00:02 Nasal Cannula 4 Laboratory Results 11/28/21 00:11 11/28/21 00:11 PG Care Time/CCT Total # of Minutes Spent Total Time Spent with Patient: Total time spent is greater than 50% in coordination of care (as documented) at patient's floor/unit and/or counseling patient: Coding Level of Care Code 43732 Initial Inpt Care Lvl 3 Diagnoses Acute on chronic respiratory failure with hypoxemia J96.21 COVID-19 U07.1 Scoliosis M41.9 Restrictive lung disease J98.4
[2021-11-28] MEDS: BENZONATATE 100 MG CAPSULE PO PRN ×2 (08:46→13:51)
[2021-11-28] MEDS: PROPRANOLOL HCL 20 MG TAB PO SCH ×2 (08:49→14:05)
[2021-11-28] MEDS: CLOPIDOGREL BISULFATE 75 MG TAB PO SCH (08:50)
[2021-11-28] MEDS: CITALOPRAM 40 MG TAB PO SCH (08:50)
[2021-11-28] MEDS: FLUTICASONE PROPIONATE NA SPR 16 GM BTL SCH (08:50)
[2021-11-28] MEDS: ROSUVASTATIN CALCIUM 5 MG TAB PO SCH (08:50)
[2021-11-28] MEDS: ISOSORBIDE MONO EXTENDED REL 30 MG TABCR PO SCH (08:50)
[2021-11-28] MEDS: MULTIVITAMIN TAB PO SCH (08:50)
[2021-11-28 08:56] LABS: C Reactive Protein 1.55 mg/dl (0-0.5)
[2021-11-28] MEDS ORDERED: IPRATROPIUM BROMIDE/ALBUTEROL respimat INH INH SCH (09:00)
[2021-11-28 09:11] LABS: Ferritin 153.3 ng/ml (8-388)
[2021-11-28 09:18] LABS: D Dimer 460 ug/L FEU (0-500); Partial Thromboplastin Ratio 3.2
[2021-11-28 09:36] LABS: Partial Thromboplastin Time 89.1 Seconds (21.0-31.0)
--- NOTE | 2021-11-28 09:50 | CT Scan Report ---
CT ANGIOGRAPHY OF THE CHEST, PULMONARY EMBOLUS PROTOCOL CLINICAL HISTORY: Shortness of breath. Evaluate for pulmonary embolus. COMPARISON STUDY: Chest CT December 23, 2019. Chest radiograph November 28, 2021. TECHNIQUE: Following IV administration of 114 mL of Optiray, helical axial images of the chest were o btained utilizing the pulmonary embolus protocol. Maximal intensity projections and sagittal and cor onal reformats were viewed on an independent 3D workstation. IV contrast was administered without co mplication. Automated exposure control was utilized for the study. A dose lowering technique was ut ilized adhering to the principles of ALARA. CT DOSE: 800.72 mGy.cm FINDINGS: This exam is moderately compromised by respiratory motion. No definite pulmonary emboli ar e identified. Apparent filling defects within segmental left upper lobe pulmonary arteries are likely artifactual. There is no pericardial effusion. No thoracic aortic dissection is noted. There is mode rate coronary artery calcification. Size of the heart is within normal limits. No thoracic lymphadeno chas is present. Thoracolumbar spine scoliosis is incidentally noted. No consolidation is identified to suggest pneumonia. A calcified granuloma within the right lower lobe is noted. Subpleural opaciti es reflect atelectasis. There are no suspicious pulmonary nodules. There are calcified granulomas wit hin the spleen. Gallstones are noted within the gallbladder. IMPRESSION: 1. No definite pulmonary emboli. Exam compromised by respiratory motion artifact. Apparent filling de fects within segmental left upper lobe pulmonary arteries are likely artifactual. This finding will b e called/faxed to ordering provider at time of dictation. 2. No consolidation to suggest pneumonia. 3. Thoracolumbar spine scoliosis. ACT 112: Negative or not required by law. Electronically signed by: Abimael Feldman M.D. 11/28/2021 9:48 AM
[2021-11-28 10:15] LABS: HCO3 ABG 25 mmol/L (19-24); Oxygen Saturation ABG 95.9 % (90-95); PCO2 ABG 40 mmHg (35-46); PO2 ABG 74 mmHg (80-95)
[2021-11-28] MEDS: Albuterol HFA 8 GM Inhaler (Combivent Respimat P&T Subs) INH SCH ×4 (10:16→19:40)
[2021-11-28] MEDS: Ipratropium HFA Inhaler (Combivent Respimat P&T Subs) INH SCH ×4 (10:16→19:40)
[2021-11-28 10:17] LABS: Allen Test Pos (Pos)
--- NOTE | 2021-11-28 14:46 | Hospitalist Progress Note ---
Date of Service November 28, 2021 Assessment & Plan (1) Acute and chronic respiratory failure with hypercapnia: Plan: Per admitting service notes with addendum: Underlying restrictive lung disease/granulomatous lung disease, EZEQUIEL (CPAP intolerance), nocturnal hypoxemia nasal cannula at night, Secondary to severe COVID-19 illness Multifactorial : Complicated bronchitis, possible sepsis -- Remains on 4 L of oxygen via nasal cannula, which is his baseline --CT angiogram chest: No pulmonary embolism, no pneumonia --Continue Decadron 6 mg IV now Start remdesivir day #1, discussed with patient regarding risks and benefits, he is understanding agreeable -- Continue doxycycline p.o. Continue inhalers Anoro Ellipta started by pulmonary service --Appreciate pulmonary service recommendations hx chronic right-sided heart failure (EF 55 to 60%, TTE 2020) hx CAD status post stenting HTN, stable hypothyroidism, euthyroid as of recent outpatient TSH from August 2021 essential tremors at baseline -- Hold propranolol in light of patient's heart rate in the mid 50s, reassess tomorrow --Continue other usual medications DVT prophylaxis. IV heparin Full code Disposition Pending PT and OT evaluation May need to transition to inpatient rehab Admission and Anticipated Discharge Date Admission Date: November 28, 2021 Subjective ff up for COVID 19 infection, etc seen resting in bed, comfortable on 4 L nasal cannula- baseline States breathing is better today Still has dry cough, unable to expectorate phlegm No chest pain, leg pain Denies fevers or chills, abdominal pain, nausea vomiting No other symptoms Review of Systems Review of Systems: all noted and negative except for above Physical Exam Physical Exam: General- oriented x 3, not in distress, speaks in sentences with no effort or accessory muscle use Eyes- anicteric Neck- no JVD Lungs-diminished but clear breath sounds bilaterally, no crackles or wheezing Heart- normal rate, regular rhythm; no murmurs Abdomen- normal bowel sounds, nondistended, soft, nontender Extremities- no pretibial edema, no calf tenderness Neuro- alert, oriented x 3; no gross focal neurologic deficits Skin- warm & dry Results & Data Results & Data ([facility]) Vital Signs (Past 12 Hours) Vital Signs Temp Pulse Pulse Resp BP Pulse Ox O2 Del Method 11/28/21 13:52 60 11/28/21 11:23 54 L 16 92 Nasal Cannula 11/28/21 11:06 36.5 C 54 L 20 107/63 91 Nasal Cannula 11/28/21 09:25 65 11/28/21 09:14 Nasal Cannula 11/28/21 07:25 36.6 C 64 18 115/67 93 Nasal Cannula 11/28/21 06:20 Nasal Cannula 11/28/21 06:20 36.8 C 68 20 113/69 93 Nasal Cannula 11/28/21 05:39 64 18 113/66 92 Room Air 11/28/21 04:42 66 22 117/68 91 Nasal Cannula O2 Flow Rate 11/28/21 13:52 11/28/21 11:23 4 11/28/21 11:06 4 11/28/21 09:25 11/28/21 09:14 4 11/28/21 07:25 4 11/28/21 06:20 4 11/28/21 06:20 3 11/28/21 05:39 11/28/21 04:42 4 all noted and reviewed including below
[2021-11-28] MEDS ORDERED: REMDESIVIR 200 MG in SODIUM CHLORIDE 0.9% 210 ML IV ONE (15:15)
[2021-11-28] MEDS: UMECLIDINIUM/VILANTEROL 62.5/25MCG 7 PUFFS/INHALER INH SCH (15:31)
[2021-11-28] MEDS: ACETAMINOPHEN 325 MG TAB PO PRN (15:36)
--- NOTE | 2021-11-28 16:33 | Electrocardiogram Report ---
Test Reason : Blood Pressure : / mmHG Vent. Rate : 066 BPM Atrial Rate : 066 BPM P-R Int : 168 ms QRS Dur : 086 ms QT Int : 390 ms P-R-T Axes : 051 061 082 degrees QTc Int : 408 ms Poor data quality, interpretation may be adversely affected Normal sinus rhythm Normal ECG When compared with ECG of 03-JUL-2021 07:27, No significant change was found Confirmed by Darius Pimentel ([id number]) on 11/28/2021 4:33:25 PM Referred By: REFERRED SELF Confirmed By:Darius Pimentel
--- NOTE | 2021-11-28 16:36 | Electrocardiogram Report ---
Test Reason : Blood Pressure : / mmHG Vent. Rate : 067 BPM Atrial Rate : 067 BPM P-R Int : 168 ms QRS Dur : 084 ms QT Int : 432 ms P-R-T Axes : 031 064 079 degrees QTc Int : 456 ms Poor data quality, interpretation may be adversely affected Normal sinus rhythm Normal ECG When compared with ECG of 28-NOV-2021 00:27, (unconfirmed) No significant change was found Confirmed by Darius Pimentel ([id number]) on 11/28/2021 4:36:22 PM Referred By: REFERRED SELF Confirmed By:Darius Pimentel
[2021-11-28] MEDS: SODIUM CHLOR 7% 4 ML NEB NEB SCH (19:39)
[2021-11-28] MEDS: guaiFENesin 600 MG TABCR PO SCH (20:08)
[2021-11-28] MEDS: PANTOprazole 40 MG TAB PO SCH (20:08)
[2021-11-28] MEDS: DOXYCYCLINE HYCLATE 100 MG CAP PO SCH (20:15)
[2021-11-28] MEDS: oxyCODONE HCL IR 5 MG TAB (IMMEDIATE RELEASE) PO PRN (21:40)
[2021-11-29] MEDS: LEVOTHYROXINE SODIUM 100 MCG TABLET PO SCH (03:49)
[2021-11-29 06:14] LABS: Basophils # (auto) 0.02 K/uL (0-0.2); Basophils % (auto) 0.2 %; Hematocrit (blood only) 42.5 % (40.1-51.0); Hemoglobin 14.1 g/dl (14.0-18.0); Immature Granulocytes # (auto) 0.07 K/uL (0.00-0.02); Immature Granulocytes % (auto) 0.7 %; Lymphocytes # (auto) 0.84 K/uL (1.2-3.4); Lymphocytes % (auto) 8.5 %; Mean Corpuscular Hemoglobin 30.8 pg (25.0-34.0); Mean Corpuscular Hgb Conc 33.2 g/dL (32.0-36.0); Mean Corpuscular Volume 92.8 fL (80.0-100.0); Mean Platelet Volume 9.7 fL (9.4-12.4); Monocytes # (auto) 1.68 K/uL (0.24-0.82); Monocytes % (auto) 16.9 %; Neutrophils # (auto) 7.32 K/uL (1.4-6.5); Neutrophils % (auto) 73.7 %; Platelet Count 144 K/uL (130-400); RDW Coefficient of Variation 15.6 % (11.5-14.5); Red Blood Count 4.58 M/uL (4.63-6.08); White Blood Count 9.93 K/ul (4.8-10.8)
[2021-11-29 06:39] LABS: Albumin Globulin Ratio 1.3 (0.9-2); Albumin Level 3.8 gm/dl (3.4-5.0); BUN Creatinine Ratio 10.8 (10-20); Bilirubin,Total 0.3 mg/dl (0.2-1.0); Calcium 8.9 mg/dl (8.5-10.1); Creatinine Clr Calc Pharmacy 60.4 ml/min; Est GFR (African American) 89.5 ml/min; Est GFR (Non-African American) 77.3 ml/min; Globulin 2.9 gm/dl (2.5-4.0); Potassium 3.8 mmol/L (3.5-5.1); Total Protein 6.7 gm/dl (6.0-8.3)
[2021-11-29] MEDS: Albuterol HFA 8 GM Inhaler (Combivent Respimat P&T Subs) INH SCH ×2 (07:44→19:30)
[2021-11-29] MEDS: Ipratropium HFA Inhaler (Combivent Respimat P&T Subs) INH SCH ×2 (07:45→19:29)
[2021-11-29] MEDS: SODIUM CHLOR 7% 4 ML NEB NEB SCH ×2 (07:45→19:30)
[2021-11-29] MEDS: dexAMETHasone 6 MG in SYRINGE 0 ML IV SCH (08:23)
[2021-11-29] MEDS: CITALOPRAM 40 MG TAB PO SCH (08:23)
[2021-11-29] MEDS: guaiFENesin 600 MG TABCR PO SCH ×2 (08:24→19:51)
[2021-11-29] MEDS: ISOSORBIDE MONO EXTENDED REL 30 MG TABCR PO SCH (08:24)
[2021-11-29] MEDS: UMECLIDINIUM/VILANTEROL 62.5/25MCG 7 PUFFS/INHALER INH SCH (08:24)
[2021-11-29] MEDS: FLUTICASONE PROPIONATE NA SPR 16 GM BTL SCH (08:24)
[2021-11-29] MEDS: ROSUVASTATIN CALCIUM 5 MG TAB PO SCH (08:24)
[2021-11-29] MEDS: CLOPIDOGREL BISULFATE 75 MG TAB PO SCH (08:24)
[2021-11-29] MEDS: MULTIVITAMIN TAB PO SCH (08:24)
[2021-11-29] MEDS: DOXYCYCLINE HYCLATE 100 MG CAP PO SCH ×2 (09:43→19:50)
--- NOTE | 2021-11-29 10:40 | Pulmonology Progress Note ---
Date of Service November 29, 2021 Assessment & Plan (1) Acute on chronic respiratory failure with hypoxemia: (2) COVID-19: (3) Scoliosis: (4) Restrictive lung disease: Plan CT chest 11/28/2021 personally reviewed: Elevated right hemidiaphragm with dependent atelectasis of the right lower lobe No signs of any pulmonary infiltrate, right upper lobe granuloma calcified Severe kyphoscoliosis No clear evidence of pulmonary embolism No mediastinal lymphadenopathy ABG 7.4/40/74 on 4 L nasal cannula -- Acute on chronic hypoxic respiratory failure Patient is chronically on 2 L at home D-dimer negative Continue with O2 supplementation to keep O2 saturation between 88-92% -- COVID-[address] chest I do not see any evidence of groundglass opacities Requiring more oxygen than baseline. --Restrictive lung disease Likely secondary to elevation of right hemidiaphragm on top of severe kyphoscoliosis BiPAP/CPAP will be beneficial for the patient if he is willing to use it --EZEQUIEL Not able to tolerate CPAP Plan: In/out: -323, urine output 1800 mL Continue with diuretics to keep the patient negative balance Complete the course of dexamethasone. Case was discussed with Dr Reeder No further recommendation for pulmonary perspective. If there is any worsening please call directly. Will sign off. Please note the above document was generated using voice recognition software. It may contain grammatical, syntax or spelling errors.Any formal questions or concerns about the content, text or information contained within the body of this dictation should be directly addressed to the provider for clarification. Admission and Anticipated Discharge Date Admission Date: November 28, 2021 Subjective Patient seen and examined at bedside. No acute distress, no adverse events overnight. Today while he was eating he did complain of having 1 episode of choking. He has a history of aspiration in the past. Overall he says he is feeling better when it comes to his breathing other than the episode of coughing up. He was saturating 92% on 4 L. I was able to go down to 3 L. Denies any chest pain No headache, no nausea, no vomiting. Review of Systems Review of Systems: All systems reviewed & are unremarkable except as noted in Subjective Physical Exam Physical Exam: Constitutional: No acute distress HEENT: EOMI, PERRLA Respiratory system: Decreased air entry bilaterally, more decreased on the right side, positive crackles bilateral lower lobes, no wheeze, no rhonchi CVS: S1-S2 positive Abdomen: Soft, nontender, nondistended, positive bowel sounds x4, obese Extremities: +2 pulses bilaterally radialis/ dorsalis pedis, no cyanosis, +1 pitting edema bilateral lower extremity Neuro: Awake alert oriented x3 Psych: Normal mood and affect G/U: No ramos Musculoskeletal: Scoliosis of the thoracic spine Skin: no rashes, warm and dry Lymphatic: no cervical or axillary lymphadenopathy Results & Data Results & Data ([facility]) Vital Signs (Past 12 Hours) Vital Signs Temp Pulse Pulse Resp BP Pulse Ox O2 Del Method 11/29/21 08:00 52 L 11/29/21 08:00 Nasal Cannula 11/29/21 08:00 36.6 C 54 L 18 136/79 96 11/29/21 07:43 59 L 18 95 Nasal Cannula 11/29/21 03:20 36.6 C 51 L 20 115/70 91 Nasal Cannula 11/28/21 22:54 57 L O2 Flow Rate 11/29/21 08:00 11/29/21 08:00 4 11/29/21 08:00 11/29/21 07:43 4 11/29/21 03:20 4 11/28/21 22:54 Laboratory Results 11/29/21 05:33 11/29/21 05:33 PG Care Time/CCT Total # of Minutes Spent Total Time Spent with Patient: Total time spent is greater than 50% in coordination of care (as documented) at patient's floor/unit and/or counseling patient: Coding Level of Care Code 30442 Subseq Hosp Care Lvl 2 Diagnoses Acute on chronic respiratory failure with hypoxemia J96.21 COVID-19 U07.1 Scoliosis M41.9 Restrictive lung disease J98.4
[2021-11-29] MEDS: REMDESIVIR 100 MG in SODIUM CHLORIDE 0.9% 230 ML IV SCH (12:14)
[2021-11-29 16:55] LABS: Anion Gap 5.3 (3-11)
--- NOTE | 2021-11-29 17:10 | Hospitalist Progress Note ---
Date of Service November 29, 2021 Assessment & Plan (1) Acute and chronic respiratory failure with hypercapnia: Plan: Per admitting service notes with addendum: Underlying restrictive lung disease/granulomatous lung disease, EZEQUIEL (CPAP intolerance), nocturnal hypoxemia nasal cannula at night, Secondary to severe COVID-19 illness Multifactorial : Complicated bronchitis, possible sepsis -- Remains on 4 L of oxygen via nasal cannula, which is his baseline --CT angiogram chest: No pulmonary embolism, no pneumonia --Continue Decadron 6 mg IV day #2 Start remdesivir day #2, discussed with patient regarding risks and benefits, he is understanding agreeable -- Continue doxycycline p.o. Continue scheduled albuterol and ipratropium inhalers Anoro Ellipta started by pulmonary service --Appreciate pulmonary service recommendations Dysphagia Follows with GI Soft diet Aspiration precautions hx chronic right-sided heart failure (EF 55 to 60%, TTE 2020) hx CAD status post stenting HTN, stable hypothyroidism, euthyroid as of recent outpatient TSH from August 2021 essential tremors at baseline -- Hold propranolol in light of patient's heart rate in the mid 50s, reassess tomorrow --Continue other usual medications DVT prophylaxis. Heparin subcu Full code Disposition Pending PT and OT evaluation May need to transition to inpatient rehab plan of care discussed with patient and his daughter Ciara over the phone in detail and at length all questions answered They are understanding, agreeable, comfortable with the plan of care Admission and Anticipated Discharge Date Admission Date: November 28, 2021 Subjective Follow-up for COVID-19 infection, acute on chronic hypoxic respiratory failure, COPD, etc. Seen resting in bed, on 4 L of oxygen via nasal cannula Comfortable, not in distress Appears to be brighter today States he feels improved today compared to yesterday Breathing is improving, cough is less Had 1 episode of coughing spell after lunch No other symptoms Review of Systems Review of Systems: all noted and negative except for above Physical Exam Physical Exam: General- oriented x 2, not in distress, speaks in sentences with no effort or accessory muscle use Eyes- anicteric Neck- no JVD Lungs-faint intermittent wheeze, no crackles Heart- normal rate, regular rhythm; no murmurs Abdomen- normal bowel sounds, nondistended, soft, nontender Extremities- no pretibial edema, no calf tenderness Neuro- alert, oriented x 2; no gross focal neurologic deficits Skin- warm & dry Results & Data Results & Data ([facility] [place]) Vital Signs (Past 12 Hours) Vital Signs Temp Pulse Pulse Resp BP Pulse Ox O2 Del Method 11/29/21 15:37 59 L 11/29/21 14:40 36.5 C 58 L 20 127/51 L 92 Nasal Cannula 11/29/21 11:54 36.8 C 51 L 18 146/65 H 94 11/29/21 08:00 52 L 11/29/21 08:00 Nasal Cannula 11/29/21 08:00 36.6 C 54 L 18 136/79 96 11/29/21 07:43 59 L 18 95 Nasal Cannula O2 Flow Rate 11/29/21 15:37 11/29/21 14:40 4 11/29/21 11:54 11/29/21 08:00 11/29/21 08:00 4 11/29/21 08:00 11/29/21 07:43 4 all noted and reviewed including below
[2021-11-29] MEDS: PANTOprazole 40 MG TAB PO SCH (19:51)
[2021-11-29] MEDS: oxyCODONE HCL IR 5 MG TAB (IMMEDIATE RELEASE) PO PRN (22:03)
[2021-11-30] MEDS: LEVOTHYROXINE SODIUM 100 MCG TABLET PO SCH (05:49)
[2021-11-30] MEDS: Albuterol HFA 8 GM Inhaler (Combivent Respimat P&T Subs) INH SCH ×5 (07:05→19:33)
[2021-11-30] MEDS: Ipratropium HFA Inhaler (Combivent Respimat P&T Subs) INH SCH ×5 (07:05→19:33)
[2021-11-30] MEDS: SODIUM CHLOR 7% 4 ML NEB NEB SCH ×2 (07:06→19:33)
[2021-11-30] MEDS: dexAMETHasone 6 MG in SYRINGE 0 ML IV SCH (08:03)
[2021-11-30] MEDS: CITALOPRAM 40 MG TAB PO SCH (08:04)
[2021-11-30] MEDS: guaiFENesin 600 MG TABCR PO SCH ×2 (08:04→20:06)
[2021-11-30] MEDS: DOXYCYCLINE HYCLATE 100 MG CAP PO SCH ×2 (08:04→20:06)
[2021-11-30] MEDS: MULTIVITAMIN TAB PO SCH (08:04)
[2021-11-30] MEDS: ACETAMINOPHEN 325 MG TAB PO PRN (08:04)
[2021-11-30] MEDS: FLUTICASONE PROPIONATE NA SPR 16 GM BTL SCH (08:04)
[2021-11-30] MEDS: ISOSORBIDE MONO EXTENDED REL 30 MG TABCR PO SCH (08:04)
[2021-11-30] MEDS: CLOPIDOGREL BISULFATE 75 MG TAB PO SCH (08:04)
[2021-11-30] MEDS: ROSUVASTATIN CALCIUM 5 MG TAB PO SCH (08:04)
[2021-11-30] MEDS: UMECLIDINIUM/VILANTEROL 62.5/25MCG 7 PUFFS/INHALER INH SCH (08:05)
[2021-11-30 08:38] LABS: Albumin Globulin Ratio 1.3 (0.9-2); Albumin Level 3.9 gm/dl (3.4-5.0); BUN Creatinine Ratio 17.4 (10-20); Bilirubin,Total 0.4 mg/dl (0.2-1.0); Calcium 8.9 mg/dl (8.5-10.1); Creatinine Clr Calc Pharmacy 61.1 ml/min; Est GFR (African American) 90.7 ml/min; Est GFR (Non-African American) 78.3 ml/min; Potassium 4.1 mmol/L (3.5-5.1); Total Protein 6.9 gm/dl (6.0-8.3)
[2021-11-30] MEDS: REMDESIVIR 100 MG in SODIUM CHLORIDE 0.9% 230 ML IV SCH (11:29)
--- NOTE | 2021-11-30 11:52 | XRay Report ---
XR chest 1V portable HISTORY: ff up covid COMPARISON: Chest 11/28/2021. FINDINGS: No pneumothorax. No pleural effusions. There are low lung volumes with mild elevation the r ight hemidiaphragm, unchanged. Bibasilar densities also persist and favor atelectasis. The heart arielle ins mildly enlarged. Ossified granuloma within the right lower lobe. S-shaped scoliosis of the thorac olumbar spine. IMPRESSION: No change in the low lung volumes and bibasilar linear densities. This favors subsegmental atelectasi s. ACT 112: Negative or not required by law. Electronically signed by: Byron Collazo M.D. 11/30/2021 11:51 AM
--- NOTE | 2021-11-30 12:33 | Hospitalist Progress Note ---
Date of Service November 30, 2021 Assessment & Plan (1) Acute and chronic respiratory failure with hypercapnia: Plan: Per admitting service notes with addendum: Underlying restrictive lung disease/granulomatous lung disease, EZEQUIEL (CPAP intolerance), nocturnal hypoxemia nasal cannula at night, Secondary to COVID-19 bronchitis possible sepsis -- Remains on 4 L of oxygen via nasal cannula, which is his baseline Clinically improving Sputum culture ordered --CT angiogram chest: No pulmonary embolism, no pneumonia --Continue Decadron 6 mg IV day #3 remdesivir day #3/5, discussed with patient regarding risks and benefits, he is understanding agreeable -- Continue doxycycline p.o., to complete 7 days course Continue scheduled albuterol and ipratropium inhalers Anoro Ellipta started by pulmonary service --Appreciate pulmonary service recommendations Dysphagia Follows with GI Soft diet Aspiration precautions hx chronic right-sided heart failure (EF 55 to 60%, TTE 2020) hx CAD status post stenting HTN, stable hypothyroidism, euthyroid as of recent outpatient TSH from August 2021 essential tremors at baseline -- Hold propranolol in light of patient's heart rate in the mid 50s Heart rate improving now 66-68 Hold propranolol --Continue other usual medications DVT prophylaxis. Heparin subcu Full code Disposition Pending PT and OT evaluation May need to transition to inpatient rehab Admission and Anticipated Discharge Date Admission Date: November 28, 2021 Subjective Follow-up for acute on chronic hypoxic respite failure, COVID-19 bronchitis, etc. Seen resting in bedside chair, comfortable, not in distress On 2 to 4 L of oxygen via nasal cannula States he feels improved today overall Has a yellow productive cough No chest pain No shortness of breath Tolerating diet well Abdominal pain, nausea vomiting No fevers or chills No other symptoms Review of Systems Review of Systems: all noted and negative except for above Physical Exam Physical Exam: General- oriented x 3, not in distress, speaks in sentences with no effort or accessory muscle use Eyes- anicteric Neck- no JVD Lungs-diminished but clear breath sounds bilaterally, no crackles or wheezing Heart- normal rate, regular rhythm; no murmurs Abdomen- normal bowel sounds, nondistended, soft, no tenderness Extremities- no pretibial edema, no calf tenderness Neuro- alert, oriented x 3; no gross focal neurologic deficits Skin- warm & dry Results & Data Results & Data ([facility]) Vital Signs (Past 12 Hours) Vital Signs Temp Pulse Pulse Resp BP Pulse Ox O2 Del Method 11/30/21 08:30 37 C 58 L 20 130/76 93 11/30/21 11:32 36.9 C 66 18 121/75 92 Nasal Cannula 11/30/21 10:46 68 20 93 Nasal Cannula 11/30/21 08:00 57 L 11/30/21 08:00 Nasal Cannula 11/30/21 07:06 64 18 94 Nasal Cannula 11/30/21 03:00 36.9 C 59 L 18 131/67 91 Nasal Cannula O2 Flow Rate 11/30/21 08:30 2 11/30/21 11:32 2 11/30/21 10:46 3 11/30/21 08:00 11/30/21 08:00 2 11/30/21 07:06 4 11/30/21 03:00 4 all noted and reviewed including below
[2021-11-30] MEDS: oxyCODONE HCL IR 5 MG TAB (IMMEDIATE RELEASE) PO PRN (20:06)
[2021-11-30] MEDS: BENZONATATE 100 MG CAPSULE PO PRN (20:07)
[2021-11-30] MEDS: PANTOprazole 40 MG TAB PO SCH (20:07)
[2021-12-01] MEDS: LEVOTHYROXINE SODIUM 100 MCG TABLET PO SCH (05:35)
[2021-12-01] MEDS: Ipratropium HFA Inhaler (Combivent Respimat P&T Subs) INH SCH ×4 (06:56→19:38)
[2021-12-01] MEDS: SODIUM CHLOR 7% 4 ML NEB NEB SCH ×2 (06:56→19:37)
[2021-12-01] MEDS: Albuterol HFA 8 GM Inhaler (Combivent Respimat P&T Subs) INH SCH ×4 (06:57→19:38)
[2021-12-01 07:27] LABS: Albumin Globulin Ratio 1.3 (0.9-2); Albumin Level 3.8 gm/dl (3.4-5.0); BUN Creatinine Ratio 17.3 (10-20); Bilirubin,Total 0.4 mg/dl (0.2-1.0); Creatinine Clr Calc Pharmacy 68.9 ml/min; Est GFR (African American) 97.3 ml/min; Est GFR (Non-African American) 83.9 ml/min; Globulin 2.9 gm/dl (2.5-4.0); Potassium 3.8 mmol/L (3.5-5.1); Total Protein 6.7 gm/dl (6.0-8.3)
[2021-12-01] MEDS: CITALOPRAM 40 MG TAB PO SCH (08:27)
[2021-12-01] MEDS: ISOSORBIDE MONO EXTENDED REL 30 MG TABCR PO SCH (08:27)
[2021-12-01] MEDS: guaiFENesin 600 MG TABCR PO SCH ×2 (08:27→21:38)
[2021-12-01] MEDS: ROSUVASTATIN CALCIUM 5 MG TAB PO SCH (08:27)
[2021-12-01] MEDS: CLOPIDOGREL BISULFATE 75 MG TAB PO SCH (08:28)
[2021-12-01] MEDS: UMECLIDINIUM/VILANTEROL 62.5/25MCG 7 PUFFS/INHALER INH SCH (08:28)
[2021-12-01] MEDS: MULTIVITAMIN TAB PO SCH (08:28)
[2021-12-01] MEDS: DOXYCYCLINE HYCLATE 100 MG CAP PO SCH ×2 (08:28→21:38)
[2021-12-01] MEDS: FLUTICASONE PROPIONATE NA SPR 16 GM BTL SCH (08:29)
[2021-12-01] MEDS: dexAMETHasone 6 MG in SYRINGE 0 ML IV SCH (08:38)
[2021-12-01] MEDS: REMDESIVIR 100 MG in SODIUM CHLORIDE 0.9% 230 ML IV SCH (11:56)
--- NOTE | 2021-12-01 14:45 | Electrocardiogram Report ---
Test Reason : Blood Pressure : / mmHG Vent. Rate : 055 BPM Atrial Rate : 055 BPM P-R Int : 164 ms QRS Dur : 094 ms QT Int : 486 ms P-R-T Axes : 060 052 092 degrees QTc Int : 464 ms Poor data quality, interpretation may be adversely affected Sinus bradycardia Nonspecific ST and T wave abnormality Abnormal ECG When compared with ECG of 28-NOV-2021 04:31, No significant change was found Confirmed by Bull Maciel ([id number]) on 12/01/2021 2:44:54 PM Referred By: REFERRED SELF Confirmed By:Bull Maciel
[2021-12-01] MEDS ORDERED: FUROSEMIDE 40 MG TAB PO SCH (16:00)
[2021-12-01] MEDS ORDERED: FUROSEMIDE INJ 20 MG/2 ML VIAL IV ONE (16:32)
--- NOTE | 2021-12-01 17:33 | Hospitalist Progress Note ---
Date of Service December 01, 2021 Assessment & Plan (1) Acute and chronic respiratory failure with hypercapnia: Plan: Per admitting service notes with addendum: Acute on chronic hypoxic respiratory failure secondary to: COVID-19 infection Acute bronchitis Underlying COPD, restrictive lung disease/granulomatous lung disease, on 4 L of oxygen by nasal cannula at home, EZEQUIEL (CPAP intolerance), --Sepsis, POA -- Currently on oxygen supplement at 2 L via nasal cannula Clinically improving gradually Sputum culture ordered --CT angiogram chest: No pulmonary embolism, no pneumonia --Continue Decadron 6 mg IV day #4 remdesivir day #4/5 -- Continue doxycycline p.o., to complete 7 days course Continue scheduled albuterol and ipratropium inhalers Anoro Ellipta started by pulmonary service --Appreciate pulmonary service recommendations Dysphagia -- Follows with GI Soft diet Aspiration precautions hx chronic right-sided heart failure (EF 55 to 60%, TTE 2020) --Usually on Lasix 40 mg p.o. daily Held during admission --Lasix 20 mg IV 1 dose given today Resume usual Lasix 40 mg p.o. daily tomorrow hx CAD status post stenting HTN, stable hypothyroidism, euthyroid as of recent outpatient TSH from August 2021 essential tremors at baseline -- Hold propranolol in light of patient's heart rate in the mid 50s Heart rate improving now 66-68 Hold propranolol --Continue other usual medications DVT prophylaxis. Heparin subcu Full code Disposition Pending PT and OT evaluation May need to transition to inpatient rehab or shelter facility Admission and Anticipated Discharge Date Admission Date: November 28, 2021 Subjective Follow-up for acute on chronic hypoxic respiratory failure, acute bronchitis secondary to COVID-19, etc. Seen resting in bedside chair, comfortable, not in distress On 2 L of oxygen via nasal cannula States he feels he is gradually improving Still has some cough productive of yellow sputum No chest pain, fevers or chills No other symptom Review of Systems Review of Systems: all noted and negative except for above Physical Exam Physical Exam: General- oriented x 3, not in distress, speaks in sentences with no effort or accessory muscle use Eyes- anicteric Neck- no JVD Lungs-faint wheeze bilaterally, no crackles Heart- normal rate, regular rhythm; no murmurs Abdomen- normal bowel sounds, nondistended, soft, nontender Extremities- no pretibial edema, no calf tenderness Neuro- alert, oriented x 3; no gross focal neurologic deficits Skin- warm & dry Results & Data Results & Data ([facility]) Vital Signs (Past 12 Hours) Vital Signs Temp Pulse Pulse Resp BP BP Pulse Ox 12/01/21 16:28 36.7 C 103 H 22 122/68 92 12/01/21 16:25 60 12/01/21 15:24 86 18 92 12/01/21 12:00 36.6 C 122 H 20 116/73 94 12/01/21 10:34 95 H 20 92 12/01/21 08:48 12/01/21 07:19 36.4 C L 56 L 20 154/88 H 92 12/01/21 07:12 52 L 12/01/21 06:58 54 L 18 92 O2 Del Method O2 Flow Rate 12/01/21 16:28 Nasal Cannula 2 12/01/21 16:25 12/01/21 15:24 Nasal Cannula 2 12/01/21 12:00 Nasal Cannula 2 12/01/21 10:34 Nasal Cannula 2 12/01/21 08:48 Nasal Cannula 2 12/01/21 07:19 Nasal Cannula 2 12/01/21 07:12 12/01/21 06:58 Nasal Cannula 2 all noted and reviewed including below
[2021-12-01] MEDS: oxyCODONE HCL IR 5 MG TAB (IMMEDIATE RELEASE) PO PRN (21:38)
[2021-12-01] MEDS: PANTOprazole 40 MG TAB PO SCH (21:38)
[2021-12-02] MEDS: LEVOTHYROXINE SODIUM 100 MCG TABLET PO SCH (05:36)
[2021-12-02] MEDS: Albuterol HFA 8 GM Inhaler (Combivent Respimat P&T Subs) INH SCH ×4 (07:28→19:26)
[2021-12-02] MEDS: Ipratropium HFA Inhaler (Combivent Respimat P&T Subs) INH SCH ×4 (07:28→19:25)
[2021-12-02] MEDS: SODIUM CHLOR 7% 4 ML NEB NEB SCH (07:29)
[2021-12-02 07:42] LABS: Albumin Globulin Ratio 1.3 (0.9-2); Albumin Level 3.8 gm/dl (3.4-5.0); BUN Creatinine Ratio 20.7 (10-20); Bilirubin,Total 0.5 mg/dl (0.2-1.0); Calcium 9.2 mg/dl (8.5-10.1); Creatinine Clr Calc Pharmacy 60.3 ml/min; Est GFR (African American) 90.7 ml/min; Est GFR (Non-African American) 78.3 ml/min; Potassium 3.4 mmol/L (3.5-5.1); Total Protein 6.8 gm/dl (6.0-8.3)
[2021-12-02] MEDS: dexAMETHasone 6 MG in SYRINGE 0 ML IV SCH (08:57)
[2021-12-02] MEDS: ROSUVASTATIN CALCIUM 5 MG TAB PO SCH (08:58)
[2021-12-02] MEDS: UMECLIDINIUM/VILANTEROL 62.5/25MCG 7 PUFFS/INHALER INH SCH (08:58)
[2021-12-02] MEDS: DOXYCYCLINE HYCLATE 100 MG CAP PO SCH ×2 (08:58→20:52)
[2021-12-02] MEDS: CLOPIDOGREL BISULFATE 75 MG TAB PO SCH (08:58)
[2021-12-02] MEDS: FLUTICASONE PROPIONATE NA SPR 16 GM BTL SCH (08:59)
[2021-12-02] MEDS: guaiFENesin 600 MG TABCR PO SCH ×2 (08:59→20:52)
[2021-12-02] MEDS: ISOSORBIDE MONO EXTENDED REL 30 MG TABCR PO SCH (08:59)
[2021-12-02] MEDS: FUROSEMIDE 40 MG TAB PO SCH (08:59)
[2021-12-02] MEDS: CITALOPRAM 40 MG TAB PO SCH (08:59)
[2021-12-02] MEDS: MULTIVITAMIN TAB PO SCH (08:59)
[2021-12-02] MEDS ORDERED: SODIUM CHLOR 7% 4 ML NEB NEB PRN (09:50)
[2021-12-02] MEDS: REMDESIVIR 100 MG in SODIUM CHLORIDE 0.9% 230 ML IV SCH (11:47)
--- NOTE | 2021-12-02 14:55 | Hospitalist Progress Note ---
Date of Service December 02, 2021 Assessment & Plan (1) Acute and chronic respiratory failure with hypercapnia: Plan: Per admitting service notes with addendum: Acute on chronic hypoxic respiratory failure secondary to: COVID-19 infection Acute bronchitis Underlying COPD, restrictive lung disease/granulomatous lung disease, on 4 L of oxygen by nasal cannula at home, EZEQUIEL (CPAP intolerance), --Sepsis, POA -- Currently on oxygen supplement at 2 L via nasal cannula Clinically improving gradually --CT angiogram chest: No pulmonary embolism, no pneumonia --Continue Decadron 6 mg IV day # remdesivir day #5/5 -- Continue doxycycline p.o., to complete 7 days course Continue scheduled albuterol and ipratropium inhalers --Appreciate pulmonary service recommendations; Recommend to complete the course of dexamethasone. Also, continue on diuretics. Dysphagia -- Follows with GI Soft diet Aspiration precautions hx chronic right-sided heart failure (EF 55 to 60%, TTE 2020) --onl Lasix 40 mg p.o. daily tomorrow hx CAD status post stenting HTN, stable hypothyroidism, euthyroid as of recent outpatient TSH from August 2021 essential tremors at baseline -- Hold propranolol in light of patient's heart rate in the mid 50s Heart rate improving now 66-68 Hold propranolol --Continue other usual medications DVT prophylaxis. Heparin subcu Full code Disposition: Discussed with patient regarding disposition. Patient lives at home with his dog and gets help from his neighbors. He prefers going back home after the discharge. Called his daughter Ciara twice to provide medical update; unable to reach. Admission and Anticipated Discharge Date Admission Date: November 28, 2021 Subjective Patient seen and examined at bedside. He is comfortable; not in any distress. Hi Is presently at 2 L of nasal cannula Review of Systems Review of Systems: All systems reviewed & are unremarkable except as noted in Subjective Physical Exam Physical Exam: General- oriented x 3, not in distress, speaks in sentences with no effort or accessory muscle use Eyes- anicteric Neck- no JVD Lungs-faint wheeze bilaterally, no crackles Heart- normal rate, regular rhythm; no murmurs Abdomen- normal bowel sounds, nondistended, soft, nontender Extremities- no pretibial edema, no calf tenderness Neuro- alert, oriented x 3; no gross focal neurologic deficits Skin- warm & dry Results & Data Results & Data ([facility]) Vital Signs (Past 12 Hours) Vital Signs Temp Pulse Pulse Resp BP Pulse Ox O2 Del Method 12/02/21 11:47 37 C 66 20 125/75 92 Nasal Cannula 12/02/21 10:44 68 22 95 Nasal Cannula 12/02/21 09:38 57 L 12/02/21 09:00 Nasal Cannula 12/02/21 07:33 36.8 C 61 20 155/91 H 97 Room Air 12/02/21 07:30 99 H 18 93 Nasal Cannula 12/02/21 06:49 36.4 C L 59 L 18 143/86 H 91 Nasal Cannula 12/02/21 03:32 36.5 C 57 L 18 142/79 H 92 Nasal Cannula O2 Flow Rate 12/02/21 11:47 2 12/02/21 10:44 3 12/02/21 09:38 12/02/21 09:00 2 12/02/21 07:33 4 12/02/21 07:30 3 12/02/21 06:49 2 12/02/21 03:32 2 Laboratory Results Laboratory Results WBC 9.93 K/ul (4.8-10.8) 11/29/21 05:33 RBC 4.58 M/uL (4.63-6.08) L 11/29/21 05:33 Hgb 14.1 g/dl (14.0-18.0) 11/29/21 05:33 Hct 42.5 % (40.1-51.0) 11/29/21 05:33 MCV 92.8 fL (80.0-100.0) 11/29/21 05:33 MCH 30.8 pg (25.0-34.0) 11/29/21 05:33 MCHC 33.2 g/dL (32.0-36.0) 11/29/21 05:33 RDW Std Deviation 53.0 fL (36.4-46.3) H 11/29/21 05:33 RDW Coeff of Mannie 15.6 % (11.5-14.5) H 11/29/21 05:33 Plt Count 144 K/uL (130-400) 11/29/21 05:33 MPV 9.7 fL (9.4-12.4) 11/29/21 05:33 Immature Gran % (Auto) 0.7 % 11/29/21 05:33 Neut % (Auto) 73.7 % 11/29/21 05:33 Lymph % (Auto) 8.5 % 11/29/21 05:33 Child[place] % (Auto) 16.9 % 11/29/21 05:33 Eos % (Auto) 0.0 % 11/29/21 05:33 Baso % (Auto) 0.2 % 11/29/21 05:33 Neut # (Auto) 7.32 K/uL (1.4-6.5) H 11/29/21 05:33 Lymph # (Auto) 0.84 K/uL (1.2-3.4) L 11/29/21 05:33 [place] # (Auto) 1.68 K/uL (0.24-0.82) H 11/29/21 05:33 Eos # (Auto) 0.00 K/uL (0-0.50) 11/29/21 05:33 Baso # (Auto) 0.02 K/uL (0-0.2) 11/29/21 05:33 Immature Gran # (Auto) 0.07 K/uL (0.00-0.02) H 11/29/21 05:33 PT 10.9 Seconds (9.0-12.0) 11/28/21 00:11 INR 1.0 (0.9-1.1) 11/28/21 00:11 APTT 89.1 Seconds (21.0-31.0) H* 11/28/21 08:13 PTT Ratio 3.2 11/28/21 08:13 D-Dimer 460 ug/L FEU (0-500) 11/28/21 08:13 D-Dimer Cancelled 11/28/21 08:13 ABG pH 7.40 (7.35-7.45) 11/28/21 09:50 ABG pCO2 40 mmHg (35-46) 11/28/21 09:50 ABG pO2 74 mmHg (80-95) L 11/28/21 09:50 ABG HCO3 25 mmol/L (19-24) H 11/28/21 09:50 ABG O2 Saturation 95.9 % (90-95) H 11/28/21 09:50 ABG Base Excess 0.0 mEq/L (-9-1.8) 11/28/21 09:50 Henry Test Pos (Pos) 11/28/21 09:50 VBG pH 7.38 (7.36-7.41) 11/28/21 00:21 VBG pCO2 58 mmHg (38-50) H 11/28/21 00:21 VBG pO2 44 mmHg 11/28/21 00:21 VBG HCO3 34 mmol/L 11/28/21 00:21 VBG O2 Saturation 69.7 % 11/28/21 00:21 VBG Base Excess 7.3 mEq/L 11/28/21 00:21 Oxygen Given 4L 11/28/21 09:50 Sodium 138 mmol/L (136-145) 12/02/21 06:45 Potassium 3.4 mmol/L (3.5-5.1) L 12/02/21 06:45 Chloride 99 mmol/L (98-107) 12/02/21 06:45 Carbon Dioxide 33 mmol/L (21-32) H 12/02/21 06:45 Anion Gap 6 (3-11) 12/02/21 06:45 BUN 19 mg/dl (6-23) 12/02/21 06:45 Creatinine 0.92 mg/dl (0.6-1.4) 12/02/21 06:45 Est Cr Clr Drug Dosing 60.3 ml/min 12/02/21 06:45 Est GFR ( Amer) 90.7 ml/min 12/02/21 06:45 Est GFR (Non-Af Amer) 78.3 ml/min 12/02/21 06:45 BUN/Creatinine Ratio 20.7 (10-20) H 12/02/21 06:45 Glucose 122 mg/dl (70-99(Fasting)) H 12/02/21 06:45 Calcium 9.2 mg/dl (8.5-10.1) 12/02/21 06:45 Magnesium 1.8 mg/dl (1.7-2.4) 11/28/21 00:11 Ferritin 153.3 ng/ml (8-388) 11/28/21 08:13 Total Bilirubin 0.5 mg/dl (0.2-1.0) 12/02/21 06:45 AST 28 U/L (13-39) 12/02/21 06:45 ALT 24 U/L (7-52) 12/02/21 06:45 Alkaline Phosphatase 65 U/L (34-104) 12/02/21 06:45 Troponin I High Sens 10.5 pg/ml (0-20) 11/28/21 00:11 C-Reactive Protein 1.55 mg/dl (0-0.5) H 11/28/21 08:13 B-Natriuretic Peptide 167 pg/ml (0-100) H 11/28/21 14:07 Total Protein 6.8 gm/dl (6.0-8.3) 12/02/21 06:45 Albumin 3.8 gm/dl (3.4-5.0) 12/02/21 06:45 Globulin 3.0 gm/dl (2.5-4.0) 12/02/21 06:45 Albumin/Globulin Ratio 1.3 (0.9-2) 12/02/21 06:45 TSH 0.484 uIu/ml (0.300-4.500) 11/29/21 14:34 Urine Color Yellow 11/28/21 01:19 Urine Appearance Clear (Clear) 11/28/21 01:19 Urine pH 6.0 (4.5-7.5) 11/28/21 01:19 Ur Specific [place] 1.011 (1.000-1.030) 11/28/21 01:19 Urine Protein Negative (Negative) 11/28/21 01:19 Urine Glucose (UA) Negative (Negative) 11/28/21 01:19 Urine Ketones Negative (Negative) 11/28/21 01:19 Urine Blood Trace (Negative) H 11/28/21 01:19 Urine Nitrite Negative (Negative) 11/28/21 01:19 Urine Bilirubin Negative (Negative) 11/28/21 01:19 Urine Urobilinogen Negative (Negative) 11/28/21 01:19 Ur Leukocyte Esterase Trace (Negative) H 11/28/21 01:19 Urine WBC (Auto) 1-5 /hpf (0-5) 11/28/21 01:19 Urine RBC (Auto) 0-4 /hpf (0-4) 11/28/21 01:19 U Hyaline Cast (Auto) 0 /lpf (0-5) 11/28/21 01:19 U Epithel Cells (Auto) 10-20 /lpf (0-5) H 11/28/21 01:19 Urine Bacteria (Auto) Negative (Negative) 11/28/21 01:19 SARS-CoV-2 (PCR) POSITIVE (Negative) A* 11/28/21 01:27 Influenza Type A (PCR) Negative (Neg) 11/28/21 01:27 Influenza Type B (PCR) Negative (Neg) 11/28/21 01:27 RSV (RT-PCR) Negative (Neg) 11/28/21 01:27 Impressions Chest CTA 11/28/21 01:14 CT ANGIOGRAPHY OF THE CHEST, PULMONARY EMBOLUS PROTOCOL CLINICAL HISTORY: Shortness of breath. Evaluate for pulmonary embolus. COMPARISON STUDY: Chest CT December 23, 2019. Chest radiograph November 28, 2021. TECHNIQUE: Following IV administration of 114 mL of Optiray, helical axial images of the chest were obtained utilizing the pulmonary embolus protocol. Maximal intensity projections and sagittal and coronal reformats were viewed on an independent 3D workstation. IV contrast was administered without complication. Automated exposure control was utilized for the study. A dose lowering technique was utilized adhering to the principles of ALARA. CT DOSE: 800.72 mGy.cm FINDINGS: This exam is moderately compromised by respiratory motion. No definite pulmonary emboli are identified. Apparent filling defects within segmental left upper lobe pulmonary arteries are likely artifactual. There is no pericardial effusion. No thoracic aortic dissection is noted. There is moderate coronary artery calcification. Size of the heart is within normal limits. No thoracic lymphadenopathy is present. Thoracolumbar spine scoliosis is incident ally noted. No consolidation is identified to suggest pneumonia. A calcified granuloma within the right lower lobe is noted. Subpleural opacities reflect atelectasis. There are no suspicious pulmonary nodules. There are calcified granulomas within the spleen. Gallstones are noted within the gallbladder. IMPRESSION: 1. No definite pulmonary emboli. Exam compromised by respiratory motion artif act. Apparent filling defects within segmental left upper lobe pulmonary arteries are likely artifactual. This finding will be called/faxed to ordering provider at time of dictation. 2. No consolidation to suggest pneumonia. 3. Thoracolumbar spine scoliosis. ACT 112: Negative or not required by law. Electronically signed by: Abimael Feldman M.D. 11/28/2021 9:48 AM Chest X-Ray 11/30/21 09:50 XR chest 1V portable HISTORY: ff up covid COMPARISON: Chest 11/28/2021. FINDINGS: No pneumothorax. No pleural effusions. There are low lung volumes with mild elevation the right hemidiaphragm, unchanged. Bibasilar densities also persist and favor atelectasis. The heart remains mildly enlarged. Ossified granuloma within the right lower lobe. S-shaped scoliosis of the thoracolumbar spine. IMPRESSION: No change in the low lung volumes and bibasilar linear densities. This favors subsegmental atelectasis. ACT 112: Negative or not required by law. Electronically signed by: Byron Collazo M.D. 11/30/2021 11:51 AM
[2021-12-02] MEDS: PANTOprazole 40 MG TAB PO SCH (20:52)
[2021-12-02] MEDS: BENZONATATE 100 MG CAPSULE PO PRN (20:52)
[2021-12-02] MEDS: oxyCODONE HCL IR 5 MG TAB (IMMEDIATE RELEASE) PO PRN (20:52)
[2021-12-03] MEDS: LEVOTHYROXINE SODIUM 100 MCG TABLET PO SCH (05:52)
[2021-12-03] MEDS: Albuterol HFA 8 GM Inhaler (Combivent Respimat P&T Subs) INH SCH ×4 (07:22→19:43)
[2021-12-03] MEDS: Ipratropium HFA Inhaler (Combivent Respimat P&T Subs) INH SCH ×4 (07:23→19:43)
[2021-12-03 07:31] LABS: Basophils # (auto) 0.02 K/uL (0-0.2); Basophils % (auto) 0.2 %; Eosinophils # (auto) 0.01 K/uL (0-0.50); Eosinophils % (auto) 0.1 %; Hematocrit (blood only) 44.7 % (40.1-51.0); Hemoglobin 15.3 g/dl (14.0-18.0); Immature Granulocytes # (auto) 0.19 K/uL (0.00-0.02); Immature Granulocytes % (auto) 1.7 %; Lymphocytes % (auto) 15.9 %; Mean Corpuscular Hemoglobin 30.7 pg (25.0-34.0); Mean Corpuscular Hgb Conc 34.2 g/dL (32.0-36.0); Mean Corpuscular Volume 89.6 fL (80.0-100.0); Monocytes % (auto) 10.6 %; Neutrophils # (auto) 8.12 K/uL (1.4-6.5); Neutrophils % (auto) 71.5 %; Platelet Count 154 K/uL (130-400); RDW Coefficient of Variation 15.7 % (11.5-14.5); RDW Standard Deviation 50.9 fL (36.4-46.3); Red Blood Count 4.99 M/uL (4.63-6.08); White Blood Count 11.34 K/ul (4.8-10.8)
[2021-12-03 08:03] LABS: Calcium 9.1 mg/dl (8.5-10.1); Creatinine Clr Calc Pharmacy 58.2 ml/min; Est GFR (Non-African American) 81.1 ml/min; Potassium 3.5 mmol/L (3.5-5.1)
[2021-12-03] MEDS: UMECLIDINIUM/VILANTEROL 62.5/25MCG 7 PUFFS/INHALER INH SCH (08:50)
[2021-12-03] MEDS: FUROSEMIDE 40 MG TAB PO SCH (08:50)
[2021-12-03] MEDS: FLUTICASONE PROPIONATE NA SPR 16 GM BTL SCH (08:52)
[2021-12-03] MEDS: dexAMETHasone 6 MG in SYRINGE 0 ML IV SCH (08:53)
[2021-12-03] MEDS: MULTIVITAMIN TAB PO SCH (08:55)
[2021-12-03] MEDS: CLOPIDOGREL BISULFATE 75 MG TAB PO SCH (08:55)
[2021-12-03] MEDS: CITALOPRAM 40 MG TAB PO SCH (08:55)
[2021-12-03] MEDS: DOXYCYCLINE HYCLATE 100 MG CAP PO SCH ×2 (08:55→21:39)
[2021-12-03] MEDS: ISOSORBIDE MONO EXTENDED REL 30 MG TABCR PO SCH (08:55)
[2021-12-03] MEDS: ROSUVASTATIN CALCIUM 5 MG TAB PO SCH (08:56)
[2021-12-03] MEDS: guaiFENesin 600 MG TABCR PO SCH ×2 (08:56→21:33)
[2021-12-03] MEDS: PROPRANOLOL HCL 10 MG TAB PO SCH ×3 (10:15→21:41)
--- NOTE | 2021-12-03 11:49 | Hospitalist Progress Note ---
Date of Service December 03, 2021 Assessment & Plan (1) Acute and chronic respiratory failure with hypercapnia: Plan: Acute on chronic hypoxic respiratory failure secondary to: COVID-19 infection Acute bronchitis Underlying COPD, restrictive lung disease/granulomatous lung disease, on 4 L of oxygen by nasal cannula at home, EZEQUIEL (CPAP intolerance), Sepsis, POA CT angiogram chest: No pulmonary embolism, no pneumonia Plan: Continue supplemental oxygen as needed. Titrate oxygen to maintain saturation above 88 to 90%. Patient is at 4 L by nasal cannula at home. His respiratory status is similar to his baseline. Status post 5 days of remdesivir completed on 12/02 Currently on Decadron 6 mg. To be completed on 12/08. Continue on doxycycline; to be completed on 12/05 Continue on home diuretics. Continue on albuterol and ipratropium inhalers. Pulmonology recommendation appreciated. Dysphagia -- Follows with GI Soft diet Aspiration precautions Hx chronic right-sided heart failure (EF 55 to 60%, TTE 2020) --on Lasix 40 mg p.o. daily hx CAD status post stenting HTN, stable hypothyroidism, euthyroid as of recent outpatient TSH from August 2021 Essential tremors at baseline: Propanolol resume at lower dose given increasing tremors. DVT prophylaxis. Heparin subcu Full code Disposition: Discussed with patient regarding disposition. Patient feels that he is not quite at his baseline in terms of mobility. He is agreeable for going to rehab. [employer] worker informed. Admission and Anticipated Discharge Date Admission Date: November 28, 2021 Subjective Patient seen and examined at bedside. He complains of coughing whitish phlegm. He feels overall weaker and is unsure if he will be able to manage by himself at home. He denies increasing shortness of breath, fever, chills, abdominal pain or urinary symptoms. Review of Systems Review of Systems: All systems reviewed & are unremarkable except as noted in Subjective Physical Exam Physical Exam: General- oriented x 3, not in distress, speaks in sentences with no effort or accessory muscle use Eyes- anicteric Neck- no JVD Lungs-decreased breath sound at bases. Heart- normal rate, regular rhythm; no murmurs Abdomen- normal bowel sounds, nondistended, soft, nontender Extremities- no pretibial edema, no calf tenderness Neuro- alert, oriented x 3; no gross focal neurologic deficits Skin- warm & dry Results & Data Results & Data ([facility]) Vital Signs (Past 12 Hours) Vital Signs Temp Pulse Pulse Pulse Resp BP Pulse Ox 12/03/21 11:33 70 22 92 12/03/21 08:00 12/03/21 08:00 57 L 12/03/21 11:43 36.4 C L 76 20 108/75 90 12/03/21 10:16 70 20 142/78 H 92 12/03/21 07:44 36.6 C 56 L 20 140/87 90 12/03/21 07:25 53 L 18 93 12/03/21 03:45 36.5 C 62 18 122/80 91 12/02/21 23:52 36.4 C L 55 L 16 157/90 H 90 O2 Del Method O2 Flow Rate 12/03/21 11:33 Nasal Cannula 3 12/03/21 08:00 Nasal Cannula 3 12/03/21 08:00 12/03/21 11:43 Nasal Cannula 3 12/03/21 10:16 Nasal Cannula 3 12/03/21 07:44 Nasal Cannula 3 12/03/21 07:25 Nasal Cannula 2 12/03/21 03:45 Nasal Cannula 2 12/02/21 23:52 Nasal Cannula 2 Laboratory Results Laboratory Results WBC 11.34 K/ul (4.8-10.8) H 12/03/21 07:03 RBC 4.99 M/uL (4.63-6.08) 12/03/21 07:03 Hgb 15.3 g/dl (14.0-18.0) 12/03/21 07:03 Hct 44.7 % (40.1-51.0) 12/03/21 07:03 MCV 89.6 fL (80.0-100.0) 12/03/21 07:03 MCH 30.7 pg (25.0-34.0) 12/03/21 07:03 MCHC 34.2 g/dL (32.0-36.0) 12/03/21 07:03 RDW Std Deviation 50.9 fL (36.4-46.3) H 12/03/21 07:03 RDW Coeff of Mannie 15.7 % (11.5-14.5) H 12/03/21 07:03 Plt Count 154 K/uL (130-400) 12/03/21 07:03 MPV 10.0 fL (9.4-12.4) 12/03/21 07:03 Immature Gran % (Auto) 1.7 % 12/03/21 07:03 Neut % (Auto) 71.5 % 12/03/21 07:03 Lymph % (Auto) 15.9 % 12/03/21 07:03 George % (Auto) 10.6 % 12/03/21 07:03 Eos % (Auto) 0.1 % 12/03/21 07:03 Baso % (Auto) 0.2 % 12/03/21 07:03 Neut # (Auto) 8.12 K/uL (1.4-6.5) H 12/03/21 07:03 Lymph # (Auto) 1.80 K/uL (1.2-3.4) 12/03/21 07:03 George # (Auto) 1.20 K/uL (0.24-0.82) H 12/03/21 07:03 Eos # (Auto) 0.01 K/uL (0-0.50) 12/03/21 07:03 Baso # (Auto) 0.02 K/uL (0-0.2) 12/03/21 07:03 Immature Gran # (Auto) 0.19 K/uL (0.00-0.02) H 12/03/21 07:03 PT 10.9 Seconds (9.0-12.0) 11/28/21 00:11 INR 1.0 (0.9-1.1) 11/28/21 00:11 APTT 89.1 Seconds (21.0-31.0) H* 11/28/21 08:13 PTT Ratio 3.2 11/28/21 08:13 D-Dimer 460 ug/L FEU (0-500) 11/28/21 08:13 D-Dimer Cancelled 11/28/21 08:13 ABG pH 7.40 (7.35-7.45) 11/28/21 09:50 ABG pCO2 40 mmHg (35-46) 11/28/21 09:50 ABG pO2 74 mmHg (80-95) L 11/28/21 09:50 ABG HCO3 25 mmol/L (19-24) H 11/28/21 09:50 ABG O2 Saturation 95.9 % (90-95) H 11/28/21 09:50 ABG Base Excess 0.0 mEq/L (-9-1.8) 11/28/21 09:50 Henry Test Pos (Pos) 11/28/21 09:50 VBG pH 7.38 (7.36-7.41) 11/28/21 00:21 VBG pCO2 58 mmHg (38-50) H 11/28/21 00:21 VBG pO2 44 mmHg 11/28/21 00:21 VBG HCO3 34 mmol/L 11/28/21 00:21 VBG O2 Saturation 69.7 % 11/28/21 00:21 VBG Base Excess 7.3 mEq/L 11/28/21 00:21 Oxygen Given 4L 11/28/21 09:50 Sodium 138 mmol/L (136-145) 12/03/21 07:03 Potassium 3.5 mmol/L (3.5-5.1) 12/03/21 07:03 Chloride 100 mmol/L (98-107) 12/03/21 07:03 Carbon Dioxide 33 mmol/L (21-32) H 12/03/21 07:03 Anion Gap 5 (3-11) 12/03/21 07:03 BUN 22 mg/dl (6-23) 12/03/21 07:03 Creatinine 0.88 mg/dl (0.6-1.4) 12/03/21 07:03 Est Cr Clr Drug Dosing 58.2 ml/min 12/03/21 07:03 Est GFR ( Amer) 94.0 ml/min 12/03/21 07:03 Est GFR (Non-Af Amer) 81.1 ml/min 12/03/21 07:03 BUN/Creatinine Ratio 25.0 (10-20) H 12/03/21 07:03 Glucose 107 mg/dl (70-99(Fasting)) H 12/03/21 07:03 Calcium 9.1 mg/dl (8.5-10.1) 12/03/21 07:03 Magnesium 1.8 mg/dl (1.7-2.4) 11/28/21 00:11 Ferritin 153.3 ng/ml (8-388) 11/28/21 08:13 Total Bilirubin 0.5 mg/dl (0.2-1.0) 12/02/21 06:45 AST 28 U/L (13-39) 12/02/21 06:45 ALT 24 U/L (7-52) 12/02/21 06:45 Alkaline Phosphatase 65 U/L (34-104) 12/02/21 06:45 Troponin I High Sens 10.5 pg/ml (0-20) 11/28/21 00:11 C-Reactive Protein 1.55 mg/dl (0-0.5) H 11/28/21 08:13 B-Natriuretic Peptide 167 pg/ml (0-100) H 11/28/21 14:07 Total Protein 6.8 gm/dl (6.0-8.3) 12/02/21 06:45 Albumin 3.8 gm/dl (3.4-5.0) 12/02/21 06:45 Globulin 3.0 gm/dl (2.5-4.0) 12/02/21 06:45 Albumin/Globulin Ratio 1.3 (0.9-2) 12/02/21 06:45 TSH 0.484 uIu/ml (0.300-4.500) 11/29/21 14:34 Urine Color Yellow 11/28/21 01:19 Urine Appearance Clear (Clear) 11/28/21 01:19 Urine pH 6.0 (4.5-7.5) 11/28/21 01:19 Ur Specific [place] 1.011 (1.000-1.030) 11/28/21 01:19 Urine Protein Negative (Negative) 11/28/21 01:19 Urine Glucose (UA) Negative (Negative) 11/28/21 01:19 Urine Ketones Negative (Negative) 11/28/21 01:19 Urine Blood Trace (Negative) H 11/28/21 01:19 Urine Nitrite Negative (Negative) 11/28/21 01:19 Urine Bilirubin Negative (Negative) 11/28/21 01:19 Urine Urobilinogen Negative (Negative) 11/28/21 01:19 Ur Leukocyte Esterase Trace (Negative) H 11/28/21 01:19 Urine WBC (Auto) 1-5 /hpf (0-5) 11/28/21 01:19 Urine RBC (Auto) 0-4 /hpf (0-4) 11/28/21 01:19 U Hyaline Cast (Auto) 0 /lpf (0-5) 11/28/21 01:19 U Epithel Cells (Auto) 10-20 /lpf (0-5) H 11/28/21 01:19 Urine Bacteria (Auto) Negative (Negative) 11/28/21 01:19 SARS-CoV-2 (PCR) POSITIVE (Negative) A* 11/28/21 01:27 Influenza Type A (PCR) Negative (Neg) 11/28/21 01:27 Influenza Type B (PCR) Negative (Neg) 11/28/21 01:27 RSV (RT-PCR) Negative (Neg) 11/28/21 01:27 Impressions Chest CTA 11/28/21 01:14 CT ANGIOGRAPHY OF THE CHEST, PULMONARY EMBOLUS PROTOCOL CLINICAL HISTORY: Shortness of breath. Evaluate for pulmonary embolus. COMPARISON STUDY: Chest CT December 23, 2019. Chest radiograph November 28, 2021. TECHNIQUE: Following IV administration of 114 mL of Optiray, helical axial images of the chest were obtained utilizing the pulmonary embolus protocol. Maximal intensity projections and sagittal and coronal reformats were viewed on an independent 3D workstation. IV contrast was administered without complication. Automated exposure control was utilized for the study. A dose lowering technique was utilized adhering to the principles of ALARA. CT DOSE: 800.72 mGy.cm FINDINGS: This exam is moderately compromised by respiratory motion. No definite pulmonary emboli are identified. Apparent filling defects within segmental left upper lobe pulmonary arteries are likely artifactual. There is no pericardial effusion. No thoracic aortic dissection is noted. There is moderate coronary artery calcification. Size of the heart is within normal limits. No thoracic lymphadenopathy is present. Thoracolumbar spine scoliosis is incidentally noted. No consolidation is identified to suggest pneumonia. A calcified granuloma within the right lower lobe is noted. Subpleural opacities reflect atelectasis. There are no suspicious pulmonary nodules. There are calcified granulomas within the spleen. Gallstones are noted within the gallbladder. IMPRESSION: 1. No definite pulmonary emboli. Exam compromised by respiratory motion artifact. Apparent filling defects within segmental left upper lobe pulmonary arteries are likely artifactual. This finding will be called/faxed to ordering provider at time of dictation. 2. No consolidation to suggest pneumonia. 3. Thoracolumbar spine scoliosis. ACT 112: Negative or not required by law. Electronically signed by: Abimael Feldman M.D. 11/28/2021 9:48 AM Chest X-Ray 11/30/21 09:50 XR chest 1V portable HISTORY: ff up covid COMPARISON: Chest 11/28/2021. FINDINGS: No pneumothorax. No pleural effusions. There are low lung volumes with mild elevation the right hemidiaphragm, unchanged. Bibasilar densities also persist and favor atelectasis. The heart remains mildly enlarged. Ossified granuloma within the right lower lobe. S-shaped scoliosis of the thoracolumbar spine. IMPRESSION: No change in the low lung volumes and bibasilar linear densities. This favors subsegmental atelectasis. ACT 112: Negative or not required by law. Electronically signed by: Byron Collazo M.D. 11/30/2021 11:51 AM
[2021-12-03] MEDS: PANTOprazole 40 MG TAB PO SCH (21:33)
[2021-12-03] MEDS: oxyCODONE HCL IR 5 MG TAB (IMMEDIATE RELEASE) PO PRN (21:34)
[2021-12-04] MEDS: LEVOTHYROXINE SODIUM 100 MCG TABLET PO SCH (06:46)
[2021-12-04 06:51] LABS: Basophils # (auto) 0.04 K/uL (0-0.2); Basophils % (auto) 0.3 %; Eosinophils # (auto) 0.02 K/uL (0-0.50); Eosinophils % (auto) 0.1 %; Hematocrit (blood only) 48.2 % (40.1-51.0); Hemoglobin 16.3 g/dl (14.0-18.0); Immature Granulocytes % (auto) 2.1 %; Lymphocytes # (auto) 2.28 K/uL (1.2-3.4); Lymphocytes % (auto) 16.2 %; Mean Corpuscular Hemoglobin 30.1 pg (25.0-34.0); Mean Corpuscular Hgb Conc 33.8 g/dL (32.0-36.0); Mean Corpuscular Volume 89.1 fL (80.0-100.0); Mean Platelet Volume 9.6 fL (9.4-12.4); Monocytes # (auto) 1.31 K/uL (0.24-0.82); Monocytes % (auto) 9.3 %; Neutrophils # (auto) 10.12 K/uL (1.4-6.5); Platelet Count 168 K/uL (130-400); RDW Coefficient of Variation 16.2 % (11.5-14.5); RDW Standard Deviation 51.6 fL (36.4-46.3); Red Blood Count 5.41 M/uL (4.63-6.08); White Blood Count 14.07 K/ul (4.8-10.8)
[2021-12-04] MEDS: Albuterol HFA 8 GM Inhaler (Combivent Respimat P&T Subs) INH SCH ×4 (07:06→19:15)
[2021-12-04] MEDS: Ipratropium HFA Inhaler (Combivent Respimat P&T Subs) INH SCH ×4 (07:06→19:14)
[2021-12-04 07:14] LABS: BUN Creatinine Ratio 27.1 (10-20); Calcium 9.5 mg/dl (8.5-10.1); Creatinine Clr Calc Pharmacy 53.4 ml/min; Est GFR (African American) 86.2 ml/min; Est GFR (Non-African American) 74.4 ml/min; Potassium 3.5 mmol/L (3.5-5.1)
[2021-12-04] MEDS: DOXYCYCLINE HYCLATE 100 MG CAP PO SCH ×2 (08:17→22:32)
[2021-12-04] MEDS: CLOPIDOGREL BISULFATE 75 MG TAB PO SCH (08:18)
[2021-12-04] MEDS: ISOSORBIDE MONO EXTENDED REL 30 MG TABCR PO SCH (08:18)
[2021-12-04] MEDS: FUROSEMIDE 40 MG TAB PO SCH (08:18)
[2021-12-04] MEDS: CITALOPRAM 40 MG TAB PO SCH (08:18)
[2021-12-04] MEDS: ROSUVASTATIN CALCIUM 5 MG TAB PO SCH (08:18)
[2021-12-04] MEDS: guaiFENesin 600 MG TABCR PO SCH ×2 (08:18→22:32)
[2021-12-04] MEDS: MULTIVITAMIN TAB PO SCH (08:18)
[2021-12-04] MEDS: UMECLIDINIUM/VILANTEROL 62.5/25MCG 7 PUFFS/INHALER INH SCH (08:19)
[2021-12-04] MEDS: FLUTICASONE PROPIONATE NA SPR 16 GM BTL SCH (08:20)
[2021-12-04] MEDS: PROPRANOLOL HCL 10 MG TAB PO SCH ×3 (08:23→20:44)
[2021-12-04] MEDS: dexAMETHasone 6 MG in SYRINGE 0 ML IV SCH (08:24)
[2021-12-04] MEDS: oxyCODONE HCL IR 5 MG TAB (IMMEDIATE RELEASE) PO PRN ×3 (08:34→22:44)
--- NOTE | 2021-12-04 14:07 | Hospitalist Progress Note ---
Date of Service December 04, 2021 Assessment & Plan (1) Acute and chronic respiratory failure with hypercapnia: Plan: Acute on chronic hypoxic respiratory failure secondary to: COVID-19 infection Acute bronchitis Underlying COPD, restrictive lung disease/granulomatous lung disease, on 4 L of oxygen by nasal cannula at home, EZEQUIEL (CPAP intolerance), Sepsis, POA CT angiogram chest: No pulmonary embolism, no pneumonia Plan: Continue supplemental oxygen as needed. Titrate oxygen to maintain saturation above 88 to 90%. Patient is at 4 L by nasal cannula at home. His respiratory status is similar to his baseline. Status post 5 days of remdesivir completed on 12/02 Currently on Decadron 6 mg. To be completed on 12/08. Continue on doxycycline; to be completed on 12/05 Lasix decreased to 20mg once daily. Continue on albuterol and ipratropium inhalers. Pulmonology recommendation appreciated. Dysphagia -- Follows with GI Soft diet Aspiration precautions Hx chronic right-sided heart failure (EF 55 to 60%, TTE 2020) --on Lasix 20 mg p.o. daily hx CAD status post stenting HTN, stable hypothyroidism, euthyroid as of recent outpatient TSH from August 2021 Essential tremors at baseline: Propanolol resume at lower dose given increasing tremors. DVT prophylaxis. Heparin subcu Full code Disposition: Discussed with patient regarding disposition. Patient feels that he is not quite at his baseline in terms of mobility. He is agreeable for going to rehab. 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 Daughter called to provide medical updates. Admission and Anticipated Discharge Date Admission Date: November 28, 2021 Subjective Patient seen and examined at bedside. He is comfortably lying on the bed; not in any distress. Currently on baseline oxygen requirement. Review of Systems Review of Systems: All systems reviewed & are unremarkable except as noted in Subjective Physical Exam Physical Exam: General- oriented x 3, not in distress, speaks in sentences with no effort or accessory muscle use Eyes- anicteric Neck- no JVD Lungs-decreased breath sound at bases. Heart- normal rate, regular rhythm; no murmurs Abdomen- normal bowel sounds, nondistended, soft, nontender Extremities- no pretibial edema, no calf tenderness Neuro- alert, oriented x 3; no gross focal neurologic deficits Skin- warm & dry Results & Data Results & Data ([facility]) Vital Signs (Past 12 Hours) Vital Signs Temp Pulse Pulse Resp BP Pulse Ox O2 Del Method 12/04/21 11:06 61 20 90 Nasal Cannula 12/04/21 08:15 Nasal Cannula 12/04/21 10:37 36.6 C 5 L 19 127/79 92 Room Air 12/04/21 06:17 52 L 12/04/21 07:06 52 L 18 92 Nasal Cannula 12/04/21 07:02 36.6 C 59 L 20 132/84 90 Nasal Cannula 12/04/21 03:00 36.6 C 84 20 130/85 97 Nasal Cannula O2 Flow Rate 12/04/21 11:06 3 12/04/21 08:15 4 12/04/21 10:37 12/04/21 06:17 12/04/21 07:06 2 12/04/21 07:02 12/04/21 03:00 Laboratory Results Laboratory Results WBC 14.07 K/ul (4.8-10.8) H 12/04/21 06:31 RBC 5.41 M/uL (4.63-6.08) 12/04/21 06:31 Hgb 16.3 g/dl (14.0-18.0) 12/04/21 06:31 Hct 48.2 % (40.1-51.0) 12/04/21 06:31 MCV 89.1 fL (80.0-100.0) 12/04/21 06:31 MCH 30.1 pg (25.0-34.0) 12/04/21 06:31 MCHC 33.8 g/dL (32.0-36.0) 12/04/21 06:31 RDW Std Deviation 51.6 fL (36.4-46.3) H 12/04/21 06:31 RDW Coeff of Mannie 16.2 % (11.5-14.5) H 12/04/21 06:31 Plt Count 168 K/uL (130-400) 12/04/21 06:31 MPV 9.6 fL (9.4-12.4) 12/04/21 06:31 Immature Gran % (Auto) 2.1 % 12/04/21 06:31 Neut % (Auto) 72.0 % 12/04/21 06:31 Lymph % (Auto) 16.2 % 12/04/21 06:31 [place] % (Auto) 9.3 % 12/04/21 06:31 Eos % (Auto) 0.1 % 12/04/21 06:31 Baso % (Auto) 0.3 % 12/04/21 06:31 Neut # (Auto) 10.12 K/uL (1.4-6.5) H 12/04/21 06:31 Lymph # (Auto) 2.28 K/uL (1.2-3.4) 12/04/21 06:31 [place] # (Auto) 1.31 K/uL (0.24-0.82) H 12/04/21 06:31 Eos # (Auto) 0.02 K/uL (0-0.50) 12/04/21 06:31 Baso # (Auto) 0.04 K/uL (0-0.2) 12/04/21 06:31 Immature Gran # (Auto) 0.30 K/uL (0.00-0.02) H 12/04/21 06:31 PT 10.9 Seconds (9.0-12.0) 11/28/21 00:11 INR 1.0 (0.9-1.1) 11/28/21 00:11 APTT 89.1 Seconds (21.0-31.0) H* 11/28/21 08:13 PTT Ratio 3.2 11/28/21 08:13 D-Dimer 460 ug/L FEU (0-500) 11/28/21 08:13 D-Dimer Cancelled 11/28/21 08:13 ABG pH 7.40 (7.35-7.45) 11/28/21 09:50 ABG pCO2 40 mmHg (35-46) 11/28/21 09:50 ABG pO2 74 mmHg (80-95) L 11/28/21 09:50 ABG HCO3 25 mmol/L (19-24) H 11/28/21 09:50 ABG O2 Saturation 95.9 % (90-95) H 11/28/21 09:50 ABG Base Excess 0.0 mEq/L (-9-1.8) 11/28/21 09:50 Henry Test Pos (Pos) 11/28/21 09:50 VBG pH 7.38 (7.36-7.41) 11/28/21 00:21 VBG pCO2 58 mmHg (38-50) H 11/28/21 00:21 VBG pO2 44 mmHg 11/28/21 00:21 VBG HCO3 34 mmol/L 11/28/21 00:21 VBG O2 Saturation 69.7 % 11/28/21 00:21 VBG Base Excess 7.3 mEq/L 11/28/21 00:21 Oxygen Given 4L 11/28/21 09:50 Sodium 138 mmol/L (136-145) 12/04/21 06:31 Potassium 3.5 mmol/L (3.5-5.1) 12/04/21 06:31 Chloride 99 mmol/L (98-107) 12/04/21 06:31 Carbon Dioxide 33 mmol/L (21-32) H 12/04/21 06:31 Anion Gap 6 (3-11) 12/04/21 06:31 BUN 26 mg/dl (6-23) H 12/04/21 06:31 Creatinine 0.96 mg/dl (0.6-1.4) 12/04/21 06:31 Est Cr Clr Drug Dosing 53.4 ml/min 12/04/21 06:31 Est GFR ( Amer) 86.2 ml/min 12/04/21 06:31 Est GFR (Non-Af Amer) 74.4 ml/min 12/04/21 06:31 BUN/Creatinine Ratio 27.1 (10-20) H 12/04/21 06:31 Glucose 124 mg/dl (70-99(Fasting)) H 12/04/21 06:31 Calcium 9.5 mg/dl (8.5-10.1) 12/04/21 06:31 Magnesium 1.8 mg/dl (1.7-2.4) 11/28/21 00:11 Ferritin 153.3 ng/ml (8-388) 11/28/21 08:13 Total Bilirubin 0.5 mg/dl (0.2-1.0) 12/02/21 06:45 AST 28 U/L (13-39) 12/02/21 06:45 ALT 24 U/L (7-52) 12/02/21 06:45 Alkaline Phosphatase 65 U/L (34-104) 12/02/21 06:45 Troponin I High Sens 10.5 pg/ml (0-20) 11/28/21 00:11 C-Reactive Protein 1.55 mg/dl (0-0.5) H 11/28/21 08:13 B-Natriuretic Peptide 167 pg/ml (0-100) H 11/28/21 14:07 Total Protein 6.8 gm/dl (6.0-8.3) 12/02/21 06:45 Albumin 3.8 gm/dl (3.4-5.0) 12/02/21 06:45 Globulin 3.0 gm/dl (2.5-4.0) 12/02/21 06:45 Albumin/Globulin Ratio 1.3 (0.9-2) 12/02/21 06:45 TSH 0.484 uIu/ml (0.300-4.500) 11/29/21 14:34 Urine Color Yellow 11/28/21 01:19 Urine Appearance Clear (Clear) 11/28/21 01:19 Urine pH 6.0 (4.5-7.5) 11/28/21 01:19 Ur Specific [place] 1.011 (1.000-1.030) 11/28/21 01:19 Urine Protein Negative (Negative) 11/28/21 01:19 Urine Glucose (UA) Negative (Negative) 11/28/21 01:19 Urine Ketones Negative (Negative) 11/28/21 01:19 Urine Blood Trace (Negative) H 11/28/21 01:19 Urine Nitrite Negative (Negative) 11/28/21 01:19 Urine Bilirubin Negative (Negative) 11/28/21 01:19 Urine Urobilinogen Negative (Negative) 11/28/21 01:19 Ur Leukocyte Esterase Trace (Negative) H 11/28/21 01:19 Urine WBC (Auto) 1-5 /hpf (0-5) 11/28/21 01:19 Urine RBC (Auto) 0-4 /hpf (0-4) 11/28/21 01:19 U Hyaline Cast (Auto) 0 /lpf (0-5) 11/28/21 01:19 U Epithel Cells (Auto) 10-20 /lpf (0-5) H 11/28/21 01:19 Urine Bacteria (Auto) Negative (Negative) 11/28/21 01:19 SARS-CoV-2 (PCR) POSITIVE (Negative) A* 11/28/21 01:27 Influenza Type A (PCR) Negative (Neg) 11/28/21 01:27 Influenza Type B (PCR) Negative (Neg) 11/28/21 01:27 RSV (RT-PCR) Negative (Neg) 11/28/21 01:27 Impressions Chest CTA 11/28/21 01:14 CT ANGIOGRAPHY OF THE CHEST, PULMONARY EMBOLUS PROTOCOL CLINICAL HISTORY: Shortness of breath. Evaluate for pulmonary embolus. COMPARISON STUDY: Chest CT December 23, 2019. Chest radiograph November 28, 2021. TECHNIQUE: Following IV administration of 114 mL of Optiray, helical axial images of the chest were obtained utilizing the pulmonary embolus protocol. Maximal intensity projections and sagittal and coronal reformats were viewed on an independent 3D workstation. IV contrast was administered without complication. Automated exposure control was utilized for the study. A dose lowering technique was utilized adhering to the principles of ALARA. CT DOSE: 800.72 mGy.cm FINDINGS: This exam is moderately compromised by respiratory motion. No definite pulmonary emboli are identified. Apparent filling defects within segmental left upper lobe pulmonary arteries are likely artifactual. There is no pericardial effusion. No thoracic aortic dissection is noted. There is moderate coronary artery calcification. Size of the heart is within normal limits. No thoracic lymphadenopathy is present. Thoracolumbar spine scoliosis is incidentally noted. No consolidation is identified to suggest pneumonia. A calcified granuloma within the right lower lobe is noted. Subpleural opacities reflect atelectasis. There are no suspicious pulmonary nodules. There are calcified granulomas within the spleen. Gallstones are noted within the gallbladder. IMPRESSION: 1. No definite pulmonary emboli. Exam compromised by respiratory motion artifact. Apparent filling defects within segmental left upper lobe pulmonary arteries are likely artifactual. This finding will be called/faxed to ordering provider at time of dictation. 2. No consolidation to suggest pneumonia. 3. Thoracolumbar spine scoliosis. ACT 112: Negative or not required by law. Electronically signed by: Abimael Feldman M.D. 11/28/2021 9:48 AM Chest X-Ray 11/30/21 09:50 XR chest 1V portable HISTORY: ff up covid COMPARISON: Chest 11/28/2021. FINDINGS: No pneumothorax. No pleural effusions. There are low lung volumes with mild elevation the right hemidiaphragm, unchanged. Bibasilar densities also persist and favor atelectasis. The heart remains mildly enlarged. Ossified granuloma within the right lower lobe. S-shaped scoliosis of the thoracolumbar spine. IMPRESSION: No change in the low lung volumes and bibasilar linear densities. This favors subsegmental atelectasis. ACT 112: Negative or not required by law. Electronically signed by: Byron Collazo M.D. 11/30/2021 11:51 AM
[2021-12-04] MEDS: PANTOprazole 40 MG TAB PO SCH (20:44)
[2021-12-05] MEDS: oxyCODONE HCL IR 5 MG TAB (IMMEDIATE RELEASE) PO PRN ×2 (05:53→20:28)
[2021-12-05] MEDS: LEVOTHYROXINE SODIUM 100 MCG TABLET PO SCH (05:54)
[2021-12-05 07:08] LABS: Basophils # (auto) 0.09 K/uL (0-0.2); Basophils % (auto) 0.5 %; Eosinophils # (auto) 0.03 K/uL (0-0.50); Eosinophils % (auto) 0.2 %; Hematocrit (blood only) 51.1 % (40.1-51.0); Hemoglobin 17.5 g/dl (14.0-18.0); Immature Granulocytes # (auto) 0.56 K/uL (0.00-0.02); Immature Granulocytes % (auto) 3.2 %; Lymphocytes # (auto) 2.35 K/uL (1.2-3.4); Lymphocytes % (auto) 13.3 %; Mean Corpuscular Hemoglobin 30.6 pg (25.0-34.0); Mean Corpuscular Hgb Conc 34.2 g/dL (32.0-36.0); Mean Corpuscular Volume 89.5 fL (80.0-100.0); Mean Platelet Volume 10.1 fL (9.4-12.4); Monocytes # (auto) 1.64 K/uL (0.24-0.82); Monocytes % (auto) 9.3 %; Neutrophils % (auto) 73.5 %; Platelet Count 202 K/uL (130-400); RDW Standard Deviation 51.9 fL (36.4-46.3); Red Blood Count 5.71 M/uL (4.63-6.08); White Blood Count 17.67 K/ul (4.8-10.8)
[2021-12-05] MEDS: Ipratropium HFA Inhaler (Combivent Respimat P&T Subs) INH SCH ×4 (07:23→20:20)
[2021-12-05] MEDS: Albuterol HFA 8 GM Inhaler (Combivent Respimat P&T Subs) INH SCH ×4 (07:23→20:20)
[2021-12-05 07:53] LABS: BUN Creatinine Ratio 24.8 (10-20); Calcium 9.9 mg/dl (8.5-10.1); Creatinine Clr Calc Pharmacy 43.8 ml/min; Est GFR (African American) 67.8 ml/min; Est GFR (Non-African American) 58.5 ml/min; Potassium 3.5 mmol/L (3.5-5.1)
[2021-12-05] MEDS: FUROSEMIDE 20 MG TAB PO SCH (08:33)
[2021-12-05] MEDS: dexAMETHasone 6 MG in SYRINGE 0 ML IV SCH (08:33)
[2021-12-05] MEDS: FLUTICASONE PROPIONATE NA SPR 16 GM BTL SCH (08:34)
[2021-12-05] MEDS: PROPRANOLOL HCL 10 MG TAB PO SCH (08:34)
[2021-12-05] MEDS: UMECLIDINIUM/VILANTEROL 62.5/25MCG 7 PUFFS/INHALER INH SCH (08:34)
[2021-12-05] MEDS: CLOPIDOGREL BISULFATE 75 MG TAB PO SCH (09:11)
[2021-12-05] MEDS: MULTIVITAMIN TAB PO SCH (09:11)
[2021-12-05] MEDS: ISOSORBIDE MONO EXTENDED REL 30 MG TABCR PO SCH (09:11)
[2021-12-05] MEDS: CITALOPRAM 40 MG TAB PO SCH (09:12)
[2021-12-05] MEDS: ROSUVASTATIN CALCIUM 5 MG TAB PO SCH (09:12)
[2021-12-05] MEDS: guaiFENesin 600 MG TABCR PO SCH ×2 (09:12→20:29)
[2021-12-05] MEDS: DOXYCYCLINE HYCLATE 100 MG CAP PO SCH (09:12)
--- NOTE | 2021-12-05 13:59 | Hospitalist Progress Note ---
Date of Service December 05, 2021 Assessment & Plan (1) Acute and chronic respiratory failure with hypercapnia: Plan: Acute on chronic hypoxic respiratory failure secondary to: COVID-19 infection Acute bronchitis Underlying COPD, restrictive lung disease/granulomatous lung disease, on 4 L of oxygen by nasal cannula at home, EZEQUIEL (CPAP intolerance), Sepsis, POA CT angiogram chest: No pulmonary embolism, no pneumonia Plan: Continue supplemental oxygen as needed. Titrate oxygen to maintain saturation above 88 to 90%. Patient is at 4 L by nasal cannula at home. His respiratory status is similar to his baseline. Status post 5 days of remdesivir completed on 12/02 Currently on Decadron 6 mg. To be completed on 12/08. Continue on doxycycline; completed on 12/05 Lasix decreased to 20mg once daily. Continue on albuterol and ipratropium inhalers. Pulmonology recommendation appreciated. Dysphagia -- Follows with GI Soft diet Aspiration precautions Hx chronic right-sided heart failure (EF 55 to 60%, TTE 2020) --on Lasix 20 mg p.o. daily hx CAD status post stenting HTN, stable hypothyroidism, euthyroid as of recent outpatient TSH from August 2021 Essential tremors at baseline: Propanolol resumed DVT prophylaxis. Heparin subcu Full code Disposition: Discussed with patient regarding disposition. Patient feels that he is not quite at his baseline in terms of mobility. He is agreeable for going to rehab. 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 Daughter called to provide medical updates on 12/04 Admission and Anticipated Discharge Date Admission Date: November 28, 2021 Subjective Comfortable; not in any distress. He is at baseline oxygen requirement. He reports generalized weakness Review of Systems Review of Systems: All systems reviewed & are unremarkable except as noted in Subjective Physical Exam Physical Exam: General- oriented x 3, comfortable not in any distress. Eyes- anicteric Neck- no JVD Lungs-decreased breath sound at bases. Heart- normal rate, regular rhythm; no murmurs Abdomen- normal bowel sounds, nondistended, soft, nontender Extremities- no pretibial edema, no calf tenderness Neuro- alert, oriented x 3; no gross focal neurologic deficits Skin- warm & dry Results & Data Results & Data ([facility]) Vital Signs (Past 12 Hours) Vital Signs Temp Pulse Pulse Resp BP Pulse Ox O2 Del Method 12/05/21 11:44 36.4 C L 69 19 121/69 93 Nasal Cannula 12/05/21 10:59 68 20 94 Nasal Cannula 12/05/21 08:30 Nasal Cannula 12/05/21 06:18 62 12/05/21 07:30 36.5 C 84 20 122/76 96 Nasal Cannula 12/05/21 07:23 61 18 93 Nasal Cannula 12/05/21 02:43 36.8 C 61 18 147/88 H 96 Nasal Cannula O2 Flow Rate 12/05/21 11:44 3 12/05/21 10:59 3 12/05/21 08:30 3 12/05/21 06:18 12/05/21 07:30 2 12/05/21 07:23 3 12/05/21 02:43 3 Laboratory Results Laboratory Results WBC 17.67 K/ul (4.8-10.8) H 12/05/21 06:24 RBC 5.71 M/uL (4.63-6.08) 12/05/21 06:24 Hgb 17.5 g/dl (14.0-18.0) 12/05/21 06:24 Hct 51.1 % (40.1-51.0) H 12/05/21 06:24 MCV 89.5 fL (80.0-100.0) 12/05/21 06:24 MCH 30.6 pg (25.0-34.0) 12/05/21 06:24 MCHC 34.2 g/dL (32.0-36.0) 12/05/21 06:24 RDW Std Deviation 51.9 fL (36.4-46.3) H 12/05/21 06:24 RDW Coeff of Mannie 17.0 % (11.5-14.5) H 12/05/21 06:24 Plt Count 202 K/uL (130-400) 12/05/21 06:24 MPV 10.1 fL (9.4-12.4) 12/05/21 06:24 Immature Gran % (Auto) 3.2 % 12/05/21 06:24 Neut % (Auto) 73.5 % 12/05/21 06:24 Lymph % (Auto) 13.3 % 12/05/21 06:24 [place] % (Auto) 9.3 % 12/05/21 06:24 Eos % (Auto) 0.2 % 12/05/21 06:24 Baso % (Auto) 0.5 % 12/05/21 06:24 Neut # (Auto) 13.00 K/uL (1.4-6.5) H 12/05/21 06:24 Lymph # (Auto) 2.35 K/uL (1.2-3.4) 12/05/21 06:24 [place] # (Auto) 1.64 K/uL (0.24-0.82) H 12/05/21 06:24 Eos # (Auto) 0.03 K/uL (0-0.50) 12/05/21 06:24 Baso # (Auto) 0.09 K/uL (0-0.2) 12/05/21 06:24 Immature Gran # (Auto) 0.56 K/uL (0.00-0.02) H 12/05/21 06:24 PT 10.9 Seconds (9.0-12.0) 11/28/21 00:11 INR 1.0 (0.9-1.1) 11/28/21 00:11 APTT 89.1 Seconds (21.0-31.0) H* 11/28/21 08:13 PTT Ratio 3.2 11/28/21 08:13 D-Dimer 460 ug/L FEU (0-500) 11/28/21 08:13 D-Dimer Cancelled 11/28/21 08:13 ABG pH 7.40 (7.35-7.45) 11/28/21 09:50 ABG pCO2 40 mmHg (35-46) 11/28/21 09:50 ABG pO2 74 mmHg (80-95) L 11/28/21 09:50 ABG HCO3 25 mmol/L (19-24) H 11/28/21 09:50 ABG O2 Saturation 95.9 % (90-95) H 11/28/21 09:50 ABG Base Excess 0.0 mEq/L (-9-1.8) 11/28/21 09:50 Henry Test Pos (Pos) 11/28/21 09:50 VBG pH 7.38 (7.36-7.41) 11/28/21 00:21 VBG pCO2 58 mmHg (38-50) H 11/28/21 00:21 VBG pO2 44 mmHg 11/28/21 00:21 VBG HCO3 34 mmol/L 11/28/21 00:21 VBG O2 Saturation 69.7 % 11/28/21 00:21 VBG Base Excess 7.3 mEq/L 11/28/21 00:21 Oxygen Given 4L 11/28/21 09:50 Sodium 139 mmol/L (136-145) 12/05/21 06:24 Potassium 3.5 mmol/L (3.5-5.1) 12/05/21 06:24 Chloride 98 mmol/L (98-107) 12/05/21 06:24 Carbon Dioxide 34 mmol/L (21-32) H 12/05/21 06:24 Anion Gap 7 (3-11) 12/05/21 06:24 BUN 29 mg/dl (6-23) H 12/05/21 06:24 Creatinine 1.17 mg/dl (0.6-1.4) 12/05/21 06:24 Est Cr Clr Drug Dosing 43.8 ml/min 12/05/21 06:24 Est GFR ( Amer) 67.8 ml/min 12/05/21 06:24 Est GFR (Non-Af Amer) 58.5 ml/min 12/05/21 06:24 BUN/Creatinine Ratio 24.8 (10-20) H 12/05/21 06:24 Glucose 107 mg/dl (70-99(Fasting)) H 12/05/21 06:24 Calcium 9.9 mg/dl (8.5-10.1) 12/05/21 06:24 Magnesium 1.8 mg/dl (1.7-2.4) 11/28/21 00:11 Ferritin 153.3 ng/ml (8-388) 11/28/21 08:13 Total Bilirubin 0.5 mg/dl (0.2-1.0) 12/02/21 06:45 AST 28 U/L (13-39) 12/02/21 06:45 ALT 24 U/L (7-52) 12/02/21 06:45 Alkaline Phosphatase 65 U/L (34-104) 12/02/21 06:45 Troponin I High Sens 10.5 pg/ml (0-20) 11/28/21 00:11 C-Reactive Protein 1.55 mg/dl (0-0.5) H 11/28/21 08:13 B-Natriuretic Peptide 167 pg/ml (0-100) H 11/28/21 14:07 Total Protein 6.8 gm/dl (6.0-8.3) 12/02/21 06:45 Albumin 3.8 gm/dl (3.4-5.0) 12/02/21 06:45 Globulin 3.0 gm/dl (2.5-4.0) 12/02/21 06:45 Albumin/Globulin Ratio 1.3 (0.9-2) 12/02/21 06:45 TSH 0.484 uIu/ml (0.300-4.500) 11/29/21 14:34 Urine Color Yellow 11/28/21 01:19 Urine Appearance Clear (Clear) 11/28/21 01:19 Urine pH 6.0 (4.5-7.5) 11/28/21 01:19 Ur Specific [place] 1.011 (1.000-1.030) 11/28/21 01:19 Urine Protein Negative (Negative) 11/28/21 01:19 Urine Glucose (UA) Negative (Negative) 11/28/21 01:19 Urine Ketones Negative (Negative) 11/28/21 01:19 Urine Blood Trace (Negative) H 11/28/21 01:19 Urine Nitrite Negative (Negative) 11/28/21 01:19 Urine Bilirubin Negative (Negative) 11/28/21 01:19 Urine Urobilinogen Negative (Negative) 11/28/21 01:19 Ur Leukocyte Esterase Trace (Negative) H 11/28/21 01:19 Urine WBC (Auto) 1-5 /hpf (0-5) 11/28/21 01:19 Urine RBC (Auto) 0-4 /hpf (0-4) 11/28/21 01:19 U Hyaline Cast (Auto) 0 /lpf (0-5) 11/28/21 01:19 U Epithel Cells (Auto) 10-20 /lpf (0-5) H 11/28/21 01:19 Urine Bacteria (Auto) Negative (Negative) 11/28/21 01:19 SARS-CoV-2 (PCR) POSITIVE (Negative) A* 11/28/21 01:27 Influenza Type A (PCR) Negative (Neg) 11/28/21 01:27 Influenza Type B (PCR) Negative (Neg) 11/28/21 01:27 RSV (RT-PCR) Negative (Neg) 11/28/21 01:27 Impressions Chest CTA 11/28/21 01:14 CT ANGIOGRAPHY OF THE CHEST, PULMONARY EMBOLUS PROTOCOL CLINICAL HISTORY: Shortness of breath. Evaluate for pulmonary embolus. COMPARISON STUDY: Chest CT December 23, 2019. Chest radiograph November 28, 2021. TECHNIQUE: Following IV administration of 114 mL of Optiray, helical axial images of the chest were obtained utilizing the pulmonary embolus protocol. Maximal intensity projections and sagittal and coronal reformats were viewed on an independent 3D workstation. IV contrast was administered without compl ication. Automated exposure control was utilized for the study. A dose lowering technique was utilized adhering to the principles of ALARA. CT DOSE: 800.72 mGy.cm FINDINGS: This exam is moderately compromised by respiratory motion. No definite pulmonary emboli are identified. Apparent filling defects within segmental left upper lobe pulmonary arteries are likely artifactual. There is no pericardial effusion. No thoracic aortic dissection is noted. There is moderate coronary artery calcification. Size of the heart is within normal limits. No thoracic lymphadenopathy is present. Thoracolumbar spine scoliosis is incidentally noted. No consolidation is identified to suggest pneumonia. A calcified granuloma within the right lower lobe is noted. Subpleural opacities reflect atelectasis. There are no suspicious pulmonary nodules. There are calcified granulomas within the spleen. Gallstones are noted within the gallbladder. IMPRESSION: 1. No definite pulmonary emboli. Exam compromised by respiratory motion artifact. Apparent filling defects within segmental left upper lobe pulmonary arteries are likely artifactual. This finding will be called/faxed to ordering provider at time of dictation. 2. No consolidation to suggest pneumonia. 3. Thoracolumbar spine scoliosis. ACT 112: Negative or not required by law. Electronically signed by: Abimael Feldman M.D. 11/28/2021 9:48 AM Chest X-Ray 11/30/21 09:50 XR chest 1V portable HISTORY: ff up covid COMPARISON: Chest 11/28/2021. FINDINGS: No pneumothorax. No pleural effusions. There are low lung volumes with mild elevation the right hemidiaphragm, unchanged. Bibasilar densities also persist and favor atelectasis. The heart remains mildly enlarged. Ossified granuloma within the right lower lobe. S-shaped scoliosis of the thoracolumbar spine. IMPRESSION: No change in the low lung volumes and bibasilar linear densities. This favors subsegmental atelectasis. ACT 112: Negative or not required by law. Electronically signed by: Byron Collazo M.D. 11/30/2021 11:51 AM
[2021-12-05] MEDS: HEPARIN SOD 5,000 UNIT/0.5 ML VIAL SQ SCH ×2 (14:47→21:03)
[2021-12-05] MEDS: PROPRANOLOL HCL 20 MG TAB PO SCH ×2 (14:47→20:29)
[2021-12-05] MEDS: PANTOprazole 40 MG TAB PO SCH (20:29)
[2021-12-06] MEDS: oxyCODONE HCL IR 5 MG TAB (IMMEDIATE RELEASE) PO PRN ×3 (01:31→20:28)
[2021-12-06] MEDS: HEPARIN SOD 5,000 UNIT/0.5 ML VIAL SQ SCH ×3 (05:26→21:26)
[2021-12-06] MEDS: LEVOTHYROXINE SODIUM 100 MCG TABLET PO SCH (05:26)
[2021-12-06] MEDS: Albuterol HFA 8 GM Inhaler (Combivent Respimat P&T Subs) INH SCH ×4 (07:24→19:30)
[2021-12-06] MEDS: Ipratropium HFA Inhaler (Combivent Respimat P&T Subs) INH SCH ×4 (07:24→19:30)
[2021-12-06 07:45] LABS: Basophils # (auto) 0.04 K/uL (0-0.2); Basophils % (auto) 0.2 %; Eosinophils # (auto) 0.06 K/uL (0-0.50); Eosinophils % (auto) 0.3 %; Hematocrit (blood only) 51.4 % (40.1-51.0); Hemoglobin 17.3 g/dl (14.0-18.0); Immature Granulocytes % (auto) 2.9 %; Lymphocytes # (auto) 1.94 K/uL (1.2-3.4); Lymphocytes % (auto) 11.2 %; Mean Corpuscular Hemoglobin 30.8 pg (25.0-34.0); Mean Corpuscular Hgb Conc 33.7 g/dL (32.0-36.0); Mean Corpuscular Volume 91.5 fL (80.0-100.0); Monocytes # (auto) 1.64 K/uL (0.24-0.82); Monocytes % (auto) 9.5 %; Neutrophils # (auto) 13.16 K/uL (1.4-6.5); Neutrophils % (auto) 75.9 %; Platelet Count 188 K/uL (130-400); RDW Coefficient of Variation 16.4 % (11.5-14.5); RDW Standard Deviation 53.3 fL (36.4-46.3); Red Blood Count 5.62 M/uL (4.63-6.08); White Blood Count 17.34 K/ul (4.8-10.8)
[2021-12-06 08:05] LABS: BUN Creatinine Ratio 26.5 (10-20); Calcium 9.7 mg/dl (8.5-10.1); Creatinine Clr Calc Pharmacy 50.2 ml/min; Est GFR (African American) 80.1 ml/min; Est GFR (Non-African American) 69.1 ml/min; Potassium 3.5 mmol/L (3.5-5.1)
[2021-12-06] MEDS: dexAMETHasone 6 MG in SYRINGE 0 ML IV SCH (09:12)
[2021-12-06] MEDS: MULTIVITAMIN TAB PO SCH (09:12)
[2021-12-06] MEDS: CITALOPRAM 40 MG TAB PO SCH (09:13)
[2021-12-06] MEDS: PROPRANOLOL HCL 20 MG TAB PO SCH ×4 (09:13→20:28)
[2021-12-06] MEDS: CLOPIDOGREL BISULFATE 75 MG TAB PO SCH (09:13)
[2021-12-06] MEDS: UMECLIDINIUM/VILANTEROL 62.5/25MCG 7 PUFFS/INHALER INH SCH (09:14)
[2021-12-06] MEDS: FUROSEMIDE 20 MG TAB PO SCH (09:14)
[2021-12-06] MEDS: ROSUVASTATIN CALCIUM 5 MG TAB PO SCH (09:14)
[2021-12-06] MEDS: ISOSORBIDE MONO EXTENDED REL 30 MG TABCR PO SCH (09:14)
[2021-12-06] MEDS: guaiFENesin 600 MG TABCR PO SCH ×2 (09:14→20:28)
[2021-12-06] MEDS: FLUTICASONE PROPIONATE NA SPR 16 GM BTL SCH (09:15)
--- NOTE | 2021-12-06 14:56 | Hospitalist Progress Note ---
Date of Service December 06, 2021 Assessment & Plan (1) Acute and chronic respiratory failure with hypercapnia: Plan: Acute on chronic hypoxic respiratory failure secondary to: COVID-19 infection Acute bronchitis Underlying COPD, restrictive lung disease/granulomatous lung disease, on 4 L of oxygen by nasal cannula at home, EZEQUIEL (CPAP intolerance), Sepsis, POA CT angiogram chest: No pulmonary embolism, no pneumonia Plan: Continue supplemental oxygen as needed. Titrate oxygen to maintain saturation above 88 to 90%. Patient is at 4 L by nasal cannula at home. His respiratory status is similar to his baseline. Status post 5 days of remdesivir completed on 12/02 Currently on Decadron 6 mg. To be completed on 12/08. Leukocytosis likely secondary to steroids. Continue on doxycycline; completed on 12/05 Lasix decreased to 20mg once daily. Continue on albuterol and ipratropium inhalers. Pulmonology recommendation appreciated. Dysphagia -- Follows with GI Soft diet Aspiration precautions Hx chronic right-sided heart failure (EF 55 to 60%, TTE 2020) --on Lasix 20 mg p.o. daily hx CAD status post stenting HTN, stable hypothyroidism, euthyroid as of recent outpatient TSH from August 2021 Essential tremors at baseline: Propanolol resumed DVT prophylaxis. Heparin subcu Full code Disposition: Discussed with patient regarding disposition. Patient feels that he is not quite at his baseline in terms of mobility. He is agreeable for going to rehab. [employer] worker on board. Daughter called to provide medical updates on 12/04 Admission and Anticipated Discharge Date Admission Date: November 28, 2021 Subjective Patient seen and examined at bedside. His respiratory status is at baseline; requiring 3 to 4 L of oxygen. He continues to to have significant tremors. Review of Systems Review of Systems: All systems reviewed & are unremarkable except as noted in Subjective Physical Exam Physical Exam: General- oriented x 3, comfortable not in any distress. Eyes- anicteric Neck- no JVD Lungs-decreased breath sound at bases. Heart- normal rate, regular rhythm; no murmurs Abdomen- normal bowel sounds, nondistended, soft, nontender Extremities- no pretibial edema, no calf tenderness Neuro- alert, oriented x 3; no gross focal neurologic deficits Skin- warm & dry Results & Data Results & Data ([facility]) Vital Signs (Past 12 Hours) Vital Signs Temp Pulse Pulse Pulse Resp BP Pulse Ox 12/06/21 11:54 36.3 C L 58 L 58 L 16 122/89 91 12/06/21 11:17 55 L 18 92 12/06/21 09:11 12/06/21 06:13 54 L 12/06/21 08:13 36.8 C 53 L 22 133/85 96 12/06/21 07:24 53 L 20 93 O2 Del Method O2 Flow Rate 12/06/21 11:54 Nasal Cannula 3 12/06/21 11:17 Nasal Cannula 3 12/06/21 09:11 Nasal Cannula 3 12/06/21 06:13 12/06/21 08:13 Room Air 12/06/21 07:24 Nasal Cannula 3 Laboratory Results Laboratory Results WBC 17.34 K/ul (4.8-10.8) H 12/06/21 07:19 RBC 5.62 M/uL (4.63-6.08) 12/06/21 07:19 Hgb 17.3 g/dl (14.0-18.0) 12/06/21 07:19 Hct 51.4 % (40.1-51.0) H 12/06/21 07:19 MCV 91.5 fL (80.0-100.0) 12/06/21 07:19 MCH 30.8 pg (25.0-34.0) 12/06/21 07:19 MCHC 33.7 g/dL (32.0-36.0) 12/06/21 07:19 RDW Std Deviation 53.3 fL (36.4-46.3) H 12/06/21 07:19 RDW Coeff of Mannie 16.4 % (11.5-14.5) H 12/06/21 07:19 Plt Count 188 K/uL (130-400) 12/06/21 07:19 MPV 10.0 fL (9.4-12.4) 12/06/21 07:19 Immature Gran % (Auto) 2.9 % 12/06/21 07:19 Neut % (Auto) 75.9 % 12/06/21 07:19 Lymph % (Auto) 11.2 % 12/06/21 07:19 [place] % (Auto) 9.5 % 12/06/21 07:19 Eos % (Auto) 0.3 % 12/06/21 07:19 Baso % (Auto) 0.2 % 12/06/21 07:19 Neut # (Auto) 13.16 K/uL (1.4-6.5) H 12/06/21 07:19 Lymph # (Auto) 1.94 K/uL (1.2-3.4) 12/06/21 07:19 [place] # (Auto) 1.64 K/uL (0.24-0.82) H 12/06/21 07:19 Eos # (Auto) 0.06 K/uL (0-0.50) 12/06/21 07:19 Baso # (Auto) 0.04 K/uL (0-0.2) 12/06/21 07:19 Immature Gran # (Auto) 0.50 K/uL (0.00-0.02) H 12/06/21 07:19 PT 10.9 Seconds (9.0-12.0) 11/28/21 00:11 INR 1.0 (0.9-1.1) 11/28/21 00:11 APTT 89.1 Seconds (21.0-31.0) H* 11/28/21 08:13 PTT Ratio 3.2 11/28/21 08:13 D-Dimer 460 ug/L FEU (0-500) 11/28/21 08:13 D-Dimer Cancelled 11/28/21 08:13 ABG pH 7.40 (7.35-7.45) 11/28/21 09:50 ABG pCO2 40 mmHg (35-46) 11/28/21 09:50 ABG pO2 74 mmHg (80-95) L 11/28/21 09:50 ABG HCO3 25 mmol/L (19-24) H 11/28/21 09:50 ABG O2 Saturation 95.9 % (90-95) H 11/28/21 09:50 ABG Base Excess 0.0 mEq/L (-9-1.8) 11/28/21 09:50 Henry Test Pos (Pos) 11/28/21 09:50 VBG pH 7.38 (7.36-7.41) 11/28/21 00:21 VBG pCO2 58 mmHg (38-50) H 11/28/21 00:21 VBG pO2 44 mmHg 11/28/21 00:21 VBG HCO3 34 mmol/L 11/28/21 00:21 VBG O2 Saturation 69.7 % 11/28/21 00:21 VBG Base Excess 7.3 mEq/L 11/28/21 00:21 Oxygen Given 4L 11/28/21 09:50 Sodium 139 mmol/L (136-145) 12/06/21 07:19 Potassium 3.5 mmol/L (3.5-5.1) 12/06/21 07:19 Chloride 98 mmol/L (98-107) 12/06/21 07:19 Carbon Dioxide 35 mmol/L (21-32) H 12/06/21 07:19 Anion Gap 6 (3-11) 12/06/21 07:19 BUN 27 mg/dl (6-23) H 12/06/21 07:19 Creatinine 1.02 mg/dl (0.6-1.4) 12/06/21 07:19 Est Cr Clr Drug Dosing 50.2 ml/min 12/06/21 07:19 Est GFR ( Amer) 80.1 ml/min 12/06/21 07:19 Est GFR (Non-Af Amer) 69.1 ml/min 12/06/21 07:19 BUN/Creatinine Ratio 26.5 (10-20) H 12/06/21 07:19 Glucose 115 mg/dl (70-99(Fasting)) H 12/06/21 07:19 Calcium 9.7 mg/dl (8.5-10.1) 12/06/21 07:19 Magnesium 1.8 mg/dl (1.7-2.4) 11/28/21 00:11 Ferritin 153.3 ng/ml (8-388) 11/28/21 08:13 Total Bilirubin 0.5 mg/dl (0.2-1.0) 12/02/21 06:45 AST 28 U/L (13-39) 12/02/21 06:45 ALT 24 U/L (7-52) 12/02/21 06:45 Alkaline Phosphatase 65 U/L (34-104) 12/02/21 06:45 Troponin I High Sens 10.5 pg/ml (0-20) 11/28/21 00:11 C-Reactive Protein 1.55 mg/dl (0-0.5) H 11/28/21 08:13 B-Natriuretic Peptide 167 pg/ml (0-100) H 11/28/21 14:07 Total Protein 6.8 gm/dl (6.0-8.3) 12/02/21 06:45 Albumin 3.8 gm/dl (3.4-5.0) 12/02/21 06:45 Globulin 3.0 gm/dl (2.5-4.0) 12/02/21 06:45 Albumin/Globulin Ratio 1.3 (0.9-2) 12/02/21 06:45 TSH 0.484 uIu/ml (0.300-4.500) 11/29/21 14:34 Urine Color Yellow 11/28/21 01:19 Urine Appearance Clear (Clear) 11/28/21 01:19 Urine pH 6.0 (4.5-7.5) 11/28/21 01:19 Ur Specific [place] 1.011 (1.000-1.030) 11/28/21 01:19 Urine Protein Negative (Negative) 11/28/21 01:19 Urine Glucose (UA) Negative (Negative) 11/28/21 01:19 Urine Ketones Negative (Negative) 11/28/21 01:19 Urine Blood Trace (Negative) H 11/28/21 01:19 Urine Nitrite Negative (Negative) 11/28/21 01:19 Urine Bilirubin Negative (Negative) 11/28/21 01:19 Urine Urobilinogen Negative (Negative) 11/28/21 01:19 Ur Leukocyte Esterase Trace (Negative) H 11/28/21 01:19 Urine WBC (Auto) 1-5 /hpf (0-5) 11/28/21 01:19 Urine RBC (Auto) 0-4 /hpf (0-4) 11/28/21 01:19 U Hyaline Cast (Auto) 0 /lpf (0-5) 11/28/21 01:19 U Epithel Cells (Auto) 10-20 /lpf (0-5) H 11/28/21 01:19 Urine Bacteria (Auto) Negative (Negative) 11/28/21 01:19 SARS-CoV-2 (PCR) POSITIVE (Negative) A* 11/28/21 01:27 Influenza Type A (PCR) Negative (Neg) 11/28/21 01:27 Influenza Type B (PCR) Negative (Neg) 11/28/21 01:27 RSV (RT-PCR) Negative (Neg) 11/28/21 01:27 Impressions Chest CTA 11/28/21 01:14 CT ANGIOGRAPHY OF THE CHEST, PULMONARY EMBOLUS PROTOCOL CLINICAL HISTORY: Shortness of breath. Evaluate for pulmonary embolus. COMPARISON STUDY: Chest CT December 23, 2019. Chest radiograph November 28, 2021. TECHNIQUE: Following IV administration of 114 mL of Optiray, helical axial jaime ges of the chest were obtained utilizing the pulmonary embolus protocol. Maximal intensity projections and sagittal and coronal reformats were viewed on an independent 3D workstation. IV contrast was administered without complication. Automated exposure control was utilized for the study. A dose lowering technique was utilized adhering to the principles of ALARA. CT DOSE: 800.72 mGy.cm FINDINGS: This exam is moderately compromised by respiratory motion. No definite pulmonary emboli are identified. Apparent filling defects within segmental left upper lobe pulmonary arteries are likely artifactual. There is no pericardial effusion. No thoracic aortic dissection is noted. There is moderate coronary artery calcification. Size of the heart is within normal limits. No thoracic lymphadenopathy is present. Thoracolumbar spine scoliosis is incidentally noted. No consolidation is identified to suggest pneumonia. A calcified granuloma within the right lower lobe is noted. Subpleural opacities reflect atelectasis. There are no suspicious pulmonary nodules. There are calcified granulomas within the spleen. Gallstones are noted within the gallbladder. IMPRESSION: 1. No definite pulmonary emboli. Exam compromised by respiratory motion artifact. Apparent filling defects within segmental left upper lobe pulmonary arteries are likely artifactual. This finding will be called/faxed to ordering provider at time of dictation. 2. No consolidation to suggest pneumonia. 3. Thoracolumbar spine scoliosis. ACT 112: Negative or not required by law. Electronically signed by: Abimael Feldman M.D. 11/28/2021 9:48 AM Chest X-Ray 11/30/21 09:50 XR chest 1V portable HISTORY: ff up covid COMPARISON: Chest 11/28/2021. FINDINGS: No pneumothorax. No pleural effusions. There are low lung volumes with mild elevation the right hemidiaphragm, unchanged. Bibasilar densities also persist and favor atelectasis. The heart remains mildly enlarged. Ossified granuloma within the right lower lobe. S-shaped scoliosis of the thoracolumbar spine. IMPRESSION: No change in the low lung volumes and bibasilar linear densities. This favors subsegmental atelectasis. ACT 112: Negative or not required by law. Electronically signed by: Byron Collazo M.D. 11/30/2021 11:51 AM
[2021-12-06] MEDS: PANTOprazole 40 MG TAB PO SCH (20:28)
[2021-12-07] MEDS: oxyCODONE HCL IR 5 MG TAB (IMMEDIATE RELEASE) PO PRN ×4 (02:40→19:58)
[2021-12-07] MEDS: HEPARIN SOD 5,000 UNIT/0.5 ML VIAL SQ SCH ×3 (06:21→21:03)
[2021-12-07] MEDS: LEVOTHYROXINE SODIUM 100 MCG TABLET PO SCH (06:22)
[2021-12-07] MEDS: Ipratropium HFA Inhaler (Combivent Respimat P&T Subs) INH SCH ×4 (06:58→19:34)
[2021-12-07] MEDS: Albuterol HFA 8 GM Inhaler (Combivent Respimat P&T Subs) INH SCH ×4 (06:58→19:34)
[2021-12-07] MEDS: guaiFENesin 600 MG TABCR PO SCH ×2 (08:09→20:00)
[2021-12-07] MEDS: ISOSORBIDE MONO EXTENDED REL 30 MG TABCR PO SCH (08:09)
[2021-12-07] MEDS: CLOPIDOGREL BISULFATE 75 MG TAB PO SCH (08:09)
[2021-12-07] MEDS: ROSUVASTATIN CALCIUM 5 MG TAB PO SCH (08:09)
[2021-12-07] MEDS: FUROSEMIDE 20 MG TAB PO SCH (08:09)
[2021-12-07] MEDS: MULTIVITAMIN TAB PO SCH (08:09)
[2021-12-07] MEDS: CITALOPRAM 40 MG TAB PO SCH (08:09)
[2021-12-07] MEDS: FLUTICASONE PROPIONATE NA SPR 16 GM BTL SCH (08:10)
[2021-12-07] MEDS: dexAMETHasone 6 MG in SYRINGE 0 ML IV SCH (08:10)
[2021-12-07] MEDS: UMECLIDINIUM/VILANTEROL 62.5/25MCG 7 PUFFS/INHALER INH SCH (08:11)
[2021-12-07] MEDS: PROPRANOLOL HCL 20 MG TAB PO SCH ×3 (08:11→20:00)
--- NOTE | 2021-12-07 15:13 | Hospitalist Progress Note ---
Date of Service December 07, 2021 Assessment & Plan (1) Acute and chronic respiratory failure with hypercapnia: Plan: Acute on chronic hypoxic respiratory failure secondary to: COVID-19 infection Acute bronchitis Underlying COPD, restrictive lung disease/granulomatous lung disease, on 4 L of oxygen by nasal cannula at home, EZEQUIEL (CPAP intolerance), Sepsis, POA CT angiogram chest: No pulmonary embolism, no pneumonia Plan: Continue supplemental oxygen as needed. Titrate oxygen to maintain saturation above 88 to 90%. Patient is at 4 L by nasal cannula at home. His respiratory status is similar to his baseline. Status post 5 days of remdesivir completed on 12/02 Currently on Decadron 6 mg. To be completed on 12/08. Leukocytosis likely secondary to steroids. Continue on doxycycline; completed on 12/05 Lasix decreased to 20mg once daily. Continue on albuterol and ipratropium inhalers. Pulmonology recommendation appreciated. Dysphagia -- Follows with GI Soft diet Aspiration precautions Hx chronic right-sided heart failure (EF 55 to 60%, TTE 2020) --on Lasix 20 mg p.o. daily hx CAD status post stenting HTN, stable hypothyroidism, euthyroid as of recent outpatient TSH from August 2021 Essential tremors at baseline: Propanolol resumed DVT prophylaxis. Heparin subcu Full code Disposition: Discussed with patient regarding disposition. Patient feels that he is not quite at his baseline in terms of mobility. He is agreeable for going to rehab. 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 Daughter called to provide medical updates on 12/04 Admission and Anticipated Discharge Date Admission Date: November 28, 2021 Subjective Patient seen and examined at bedside. He is comfortable; not in any distress. He is frustrated regarding being in the hospital. Review of Systems Review of Systems: All systems reviewed & are unremarkable except as noted in Subjective Physical Exam Physical Exam: General- oriented x 3, comfortable not in any distress. Eyes- anicteric Neck- no JVD Lungs-decreased breath sound at bases. Heart- normal rate, regular rhythm; no murmurs Abdomen- normal bowel sounds, nondistended, soft, nontender Extremities- no pretibial edema, no calf tenderness Neuro- alert, oriented x 3; no gross focal neurologic deficits Skin- warm & dry Results & Data Results & Data ([facility]) Vital Signs (Past 12 Hours) Vital Signs Temp Pulse Pulse Resp BP Pulse Ox O2 Del Method 12/07/21 14:42 63 19 92 Nasal Cannula 12/07/21 12:00 37.2 C 59 L 20 106/69 96 Nasal Cannula 12/07/21 10:51 60 19 92 Nasal Cannula 12/07/21 08:00 Nasal Cannula 12/07/21 07:00 36.8 C 64 20 120/73 96 Nasal Cannula 12/07/21 06:58 52 L 20 91 Nasal Cannula O2 Flow Rate 12/07/21 14:42 3 12/07/21 12:00 3 12/07/21 10:51 3 12/07/21 08:00 3 12/07/21 07:00 3 12/07/21 06:58 3 Laboratory Results Laboratory Results WBC 17.34 K/ul (4.8-10.8) H 12/06/21 07:19 RBC 5.62 M/uL (4.63-6.08) 12/06/21 07:19 Hgb 17.3 g/dl (14.0-18.0) 12/06/21 07:19 Hct 51.4 % (40.1-51.0) H 12/06/21 07:19 MCV 91.5 fL (80.0-100.0) 12/06/21 07:19 MCH 30.8 pg (25.0-34.0) 12/06/21 07:19 MCHC 33.7 g/dL (32.0-36.0) 12/06/21 07:19 RDW Std Deviation 53.3 fL (36.4-46.3) H 12/06/21 07:19 RDW Coeff of Mannie 16.4 % (11.5-14.5) H 12/06/21 07:19 Plt Count 188 K/uL (130-400) 12/06/21 07:19 MPV 10.0 fL (9.4-12.4) 12/06/21 07:19 Immature Gran % (Auto) 2.9 % 12/06/21 07:19 Neut % (Auto) 75.9 % 12/06/21 07:19 Lymph % (Auto) 11.2 % 12/06/21 07:19 [place] % (Auto) 9.5 % 12/06/21 07:19 Eos % (Auto) 0.3 % 12/06/21 07:19 Baso % (Auto) 0.2 % 12/06/21 07:19 Neut # (Auto) 13.16 K/uL (1.4-6.5) H 12/06/21 07:19 Lymph # (Auto) 1.94 K/uL (1.2-3.4) 12/06/21 07:19 [place] # (Auto) 1.64 K/uL (0.24-0.82) H 12/06/21 07:19 Eos # (Auto) 0.06 K/uL (0-0.50) 12/06/21 07:19 Baso # (Auto) 0.04 K/uL (0-0.2) 12/06/21 07:19 Immature Gran # (Auto) 0.50 K/uL (0.00-0.02) H 12/06/21 07:19 PT 10.9 Seconds (9.0-12.0) 11/28/21 00:11 INR 1.0 (0.9-1.1) 11/28/21 00:11 APTT 89.1 Seconds (21.0-31.0) H* 11/28/21 08:13 PTT Ratio 3.2 11/28/21 08:13 D-Dimer 460 ug/L FEU (0-500) 11/28/21 08:13 D-Dimer Cancelled 11/28/21 08:13 ABG pH 7.40 (7.35-7.45) 11/28/21 09:50 ABG pCO2 40 mmHg (35-46) 11/28/21 09:50 ABG pO2 74 mmHg (80-95) L 11/28/21 09:50 ABG HCO3 25 mmol/L (19-24) H 11/28/21 09:50 ABG O2 Saturation 95.9 % (90-95) H 11/28/21 09:50 ABG Base Excess 0.0 mEq/L (-9-1.8) 11/28/21 09:50 Henry Test Pos (Pos) 11/28/21 09:50 VBG pH 7.38 (7.36-7.41) 11/28/21 00:21 VBG pCO2 58 mmHg (38-50) H 11/28/21 00:21 VBG pO2 44 mmHg 11/28/21 00:21 VBG HCO3 34 mmol/L 11/28/21 00:21 VBG O2 Saturation 69.7 % 11/28/21 00:21 VBG Base Excess 7.3 mEq/L 11/28/21 00:21 Oxygen Given 4L 11/28/21 09:50 Sodium 139 mmol/L (136-145) 12/06/21 07:19 Potassium 3.5 mmol/L (3.5-5.1) 12/06/21 07:19 Chloride 98 mmol/L (98-107) 12/06/21 07:19 Carbon Dioxide 35 mmol/L (21-32) H 12/06/21 07:19 Anion Gap 6 (3-11) 12/06/21 07:19 BUN 27 mg/dl (6-23) H 12/06/21 07:19 Creatinine 1.02 mg/dl (0.6-1.4) 12/06/21 07:19 Est Cr Clr Drug Dosing 50.2 ml/min 12/06/21 07:19 Est GFR ( Amer) 80.1 ml/min 12/06/21 07:19 Est GFR (Non-Af Amer) 69.1 ml/min 12/06/21 07:19 BUN/Creatinine Ratio 26.5 (10-20) H 12/06/21 07:19 Glucose 115 mg/dl (70-99(Fasting)) H 12/06/21 07:19 Calcium 9.7 mg/dl (8.5-10.1) 12/06/21 07:19 Magnesium 1.8 mg/dl (1.7-2.4) 11/28/21 00:11 Ferritin 153.3 ng/ml (8-388) 11/28/21 08:13 Total Bilirubin 0.5 mg/dl (0.2-1.0) 12/02/21 06:45 AST 28 U/L (13-39) 12/02/21 06:45 ALT 24 U/L (7-52) 12/02/21 06:45 Alkaline Phosphatase 65 U/L (34-104) 12/02/21 06:45 Troponin I High Sens 10.5 pg/ml (0-20) 11/28/21 00:11 C-Reactive Protein 1.55 mg/dl (0-0.5) H 11/28/21 08:13 B-Natriuretic Peptide 167 pg/ml (0-100) H 11/28/21 14:07 Total Protein 6.8 gm/dl (6.0-8.3) 12/02/21 06:45 Albumin 3.8 gm/dl (3.4-5.0) 12/02/21 06:45 Globulin 3.0 gm/dl (2.5-4.0) 12/02/21 06:45 Albumin/Globulin Ratio 1.3 (0.9-2) 12/02/21 06:45 TSH 0.484 uIu/ml (0.300-4.500) 11/29/21 14:34 Urine Color Yellow 11/28/21 01:19 Urine Appearance Clear (Clear) 11/28/21 01:19 Urine pH 6.0 (4.5-7.5) 11/28/21 01:19 Ur Specific [place] 1.011 (1.000-1.030) 11/28/21 01:19 Urine Protein Negative (Negative) 11/28/21 01:19 Urine Glucose (UA) Negative (Negative) 11/28/21 01:19 Urine Ketones Negative (Negative) 11/28/21 01:19 Urine Blood Trace (Negative) H 11/28/21 01:19 Urine Nitrite Negative (Negative) 11/28/21 01:19 Urine Bilirubin Negative (Negative) 11/28/21 01:19 Urine Urobilinogen Negative (Negative) 11/28/21 01:19 Ur Leukocyte Esterase Trace (Negative) H 11/28/21 01:19 Urine WBC (Auto) 1-5 /hpf (0-5) 11/28/21 01:19 Urine RBC (Auto) 0-4 /hpf (0-4) 11/28/21 01:19 U Hyaline Cast (Auto) 0 /lpf (0-5) 11/28/21 01:19 U Epithel Cells (Auto) 10-20 /lpf (0-5) H 11/28/21 01:19 Urine Bacteria (Auto) Negative (Negative) 11/28/21 01:19 SARS-CoV-2 (PCR) POSITIVE (Negative) A* 11/28/21 01:27 Influenza Type A (PCR) Negative (Neg) 11/28/21 01:27 Influenza Type B (PCR) Negative (Neg) 11/28/21 01:27 RSV (RT-PCR) Negative (Neg) 11/28/21 01:27 Impressions Chest CTA 11/28/21 01:14 CT ANGIOGRAPHY OF THE CHEST, PULMONARY EMBOLUS PROTOCOL CLINICAL HISTORY: Shortness of breath. Evaluate for pulmonary embolus. COMPARISON STUDY: Chest CT December 23, 2019. Chest radiograph November 28, 2021. TECHNIQUE: Following IV administration of 114 mL of Optiray, helical axial images of the chest were obtained utilizing the pulmonary embolus protocol. Maximal intensity projections and sagittal and coronal reformats were viewed on an independent 3D workstation. IV contrast was administered without complication. Automated exposure control was utilized for the study. A dose lowering technique was utilized adhering to the principles of ALARA. CT DOSE: 800.72 mGy.cm FINDINGS: This exam is moderately compromised by respiratory motion. No definite pulmonary emboli are identified. Apparent filling defects within segmental left upper lobe pulmonary arteries are likely artifactual. There is no pericardial effusion. No thoracic aortic dissection is noted. There is moderate coronary artery calcification. Size of the heart is within normal limits. No thoracic lymphadenopathy is present. Thoracolumbar spine scoliosis is incidentally noted. No consolidation is identified to suggest pneumonia. A calcified granuloma within the right lower lobe is noted. Subpleural opacities reflect atelectasis. There are no suspicious pulmonary nodules. There are calcified granulomas within the spleen. Gallstones are noted within the gallbladder. IMPRESSION: 1. No definite pulmonary emboli. Exam compromised by respiratory motion artifact. Apparent filling defects within segmental left upper lobe pulmonary arteries are likely artifactual. This finding will be called/faxed to ordering provider at time of dictation. 2. No consolidation to suggest pneumonia. 3. Thoracolumbar spine scoliosis. ACT 112: Negative or not required by law. Electronically signed by: Abimael Feldman M.D. 11/28/2021 9:48 AM Chest X-Ray 11/30/21 09:50 XR chest 1V portable HISTORY: ff up covid COMPARISON: Chest 11/28/2021. FINDINGS: No pneumothorax. No pleural effusions. There are low lung volumes with mild elevation the right hemidiaphragm, unchanged. Bibasilar densities also persist and favor atelectasis. The heart remains mildly enlarged. Ossified gra nuloma within the right lower lobe. S-shaped scoliosis of the thoracolumbar spine. IMPRESSION: No change in the low lung volumes and bibasilar linear densities. This favors subsegmental atelectasis. ACT 112: Negative or not required by law. Electronically signed by: Byron Collazo M.D. 11/30/2021 11:51 AM
[2021-12-07] MEDS: PANTOprazole 40 MG TAB PO SCH (20:00)
[2021-12-08] MEDS: oxyCODONE HCL IR 5 MG TAB (IMMEDIATE RELEASE) PO PRN ×5 (00:16→20:30)
[2021-12-08] MEDS: LEVOTHYROXINE SODIUM 100 MCG TABLET PO SCH (05:34)
[2021-12-08] MEDS: HEPARIN SOD 5,000 UNIT/0.5 ML VIAL SQ SCH ×3 (05:34→21:53)
[2021-12-08] MEDS: Ipratropium HFA Inhaler (Combivent Respimat P&T Subs) INH SCH ×4 (07:22→19:55)
[2021-12-08] MEDS: Albuterol HFA 8 GM Inhaler (Combivent Respimat P&T Subs) INH SCH ×4 (07:22→19:55)
[2021-12-08] MEDS: ROSUVASTATIN CALCIUM 5 MG TAB PO SCH (08:13)
[2021-12-08] MEDS: FLUTICASONE PROPIONATE NA SPR 16 GM BTL SCH (08:13)
[2021-12-08] MEDS: ISOSORBIDE MONO EXTENDED REL 30 MG TABCR PO SCH (08:13)
[2021-12-08] MEDS: PROPRANOLOL HCL 20 MG TAB PO SCH ×3 (08:13→20:30)
[2021-12-08] MEDS: FUROSEMIDE 20 MG TAB PO SCH (08:13)
[2021-12-08] MEDS: CLOPIDOGREL BISULFATE 75 MG TAB PO SCH (08:13)
[2021-12-08] MEDS: guaiFENesin 600 MG TABCR PO SCH ×2 (08:13→20:30)
[2021-12-08] MEDS: MULTIVITAMIN TAB PO SCH (08:13)
[2021-12-08] MEDS: CITALOPRAM 40 MG TAB PO SCH (08:13)
[2021-12-08] MEDS: UMECLIDINIUM/VILANTEROL 62.5/25MCG 7 PUFFS/INHALER INH SCH (08:14)
--- NOTE | 2021-12-08 14:22 | Hospitalist Progress Note ---
Date of Service December 08, 2021 Assessment & Plan (1) Acute and chronic respiratory failure with hypercapnia: Plan: Acute on chronic hypoxic respiratory failure secondary to: COVID-19 infection Acute bronchitis Underlying COPD, restrictive lung disease/granulomatous lung disease, on 4 L of oxygen by nasal cannula at home, EZEQUIEL (CPAP intolerance), Sepsis, POA CT angiogram chest: No pulmonary embolism, no pneumonia Plan: Continue supplemental oxygen as needed. Titrate oxygen to maintain saturation above 88 to 90%. Patient is at 4 L by nasal cannula at home. His respiratory status is similar to his baseline. Status post 5 days of remdesivir completed on 12/02 Status post 10 days of dexamethasone on 12/08. Continue on doxycycline; completed on 12/05 Lasix decreased to 20mg once daily. Continue on albuterol and ipratropium inhalers. Pulmonology recommendation appreciated. Dysphagia -- Follows with GI Soft diet Aspiration precautions Hx chronic right-sided heart failure (EF 55 to 60%, TTE 2020) --on Lasix 20 mg p.o. daily hx CAD status post stenting HTN, stable hypothyroidism, euthyroid as of recent outpatient TSH from August 2021 Essential tremors at baseline: Propanolol resumed DVT prophylaxis. Heparin subcu Full code Disposition: Discussed with patient regarding disposition. Patient feels that he is not quite at his baseline in terms of mobility. He is agreeable for going to rehab. 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 Daughter called to provide medical updates on 12/08. Admission and Anticipated Discharge Date Admission Date: November 28, 2021 Subjective Patient seen and examined at bedside. His respiratory status as baseline. No complaint of increasing shortness of breath. Review of Systems Review of Systems: All systems reviewed & are unremarkable except as noted in Subjective Physical Exam Physical Exam: General- oriented x 3, comfortable not in any distress. Eyes- anicteric Neck- no JVD Lungs-decreased breath sound at bases. Heart- normal rate, regular rhythm; no murmurs Abdomen- normal bowel sounds, nondistended, soft, nontender Extremities- no pretibial edema, no calf tenderness Neuro- alert, oriented x 3; no gross focal neurologic deficits Skin- warm & dry Results & Data Results & Data ([facility]) Vital Signs (Past 12 Hours) Vital Signs Temp Pulse Pulse Resp BP Pulse Ox O2 Del Method 12/08/21 11:58 36.4 C L 56 L 16 110/78 91 Nasal Cannula 12/08/21 11:00 56 L 18 93 Nasal Cannula 12/08/21 07:45 59 L 12/08/21 07:45 Nasal Cannula 12/08/21 07:44 36.7 C 58 L 16 104/53 L 93 Room Air 12/08/21 07:23 51 L 18 94 Nasal Cannula 12/08/21 02:54 36.7 C 59 L 18 130/81 91 Nasal Cannula O2 Flow Rate 12/08/21 11:58 3 12/08/21 11:00 3 12/08/21 07:45 12/08/21 07:45 3 12/08/21 07:44 12/08/21 07:23 3 12/08/21 02:54 3 Laboratory Results Laboratory Results WBC 17.34 K/ul (4.8-10.8) H 12/06/21 07:19 RBC 5.62 M/uL (4.63-6.08) 12/06/21 07:19 Hgb 17.3 g/dl (14.0-18.0) 12/06/21 07:19 Hct 51.4 % (40.1-51.0) H 12/06/21 07:19 MCV 91.5 fL (80.0-100.0) 12/06/21 07:19 MCH 30.8 pg (25.0-34.0) 12/06/21 07:19 MCHC 33.7 g/dL (32.0-36.0) 12/06/21 07:19 RDW Std Deviation 53.3 fL (36.4-46.3) H 12/06/21 07:19 RDW Coeff of Mannie 16.4 % (11.5-14.5) H 12/06/21 07:19 Plt Count 188 K/uL (130-400) 12/06/21 07:19 MPV 10.0 fL (9.4-12.4) 12/06/21 07:19 Immature Gran % (Auto) 2.9 % 12/06/21 07:19 Neut % (Auto) 75.9 % 12/06/21 07:19 Lymph % (Auto) 11.2 % 12/06/21 07:19 Whitley % (Auto) 9.5 % 12/06/21 07:19 Eos % (Auto) 0.3 % 12/06/21 07:19 Baso % (Auto) 0.2 % 12/06/21 07:19 Neut # (Auto) 13.16 K/uL (1.4-6.5) H 12/06/21 07:19 Lymph # (Auto) 1.94 K/uL (1.2-3.4) 12/06/21 07:19 Whitley # (Auto) 1.64 K/uL (0.24-0.82) H 12/06/21 07:19 Eos # (Auto) 0.06 K/uL (0-0.50) 12/06/21 07:19 Baso # (Auto) 0.04 K/uL (0-0.2) 12/06/21 07:19 Immature Gran # (Auto) 0.50 K/uL (0.00-0.02) H 12/06/21 07:19 PT 10.9 Seconds (9.0-12.0) 11/28/21 00:11 INR 1.0 (0.9-1.1) 11/28/21 00:11 APTT 89.1 Seconds (21.0-31.0) H* 11/28/21 08:13 PTT Ratio 3.2 11/28/21 08:13 D-Dimer 460 ug/L FEU (0-500) 11/28/21 08:13 D-Dimer Cancelled 11/28/21 08:13 ABG pH 7.40 (7.35-7.45) 11/28/21 09:50 ABG pCO2 40 mmHg (35-46) 11/28/21 09:50 ABG pO2 74 mmHg (80-95) L 11/28/21 09:50 ABG HCO3 25 mmol/L (19-24) H 11/28/21 09:50 ABG O2 Saturation 95.9 % (90-95) H 11/28/21 09:50 ABG Base Excess 0.0 mEq/L (-9-1.8) 11/28/21 09:50 Henry Test Pos (Pos) 11/28/21 09:50 VBG pH 7.38 (7.36-7.41) 11/28/21 00:21 VBG pCO2 58 mmHg (38-50) H 11/28/21 00:21 VBG pO2 44 mmHg 11/28/21 00:21 VBG HCO3 34 mmol/L 11/28/21 00:21 VBG O2 Saturation 69.7 % 11/28/21 00:21 VBG Base Excess 7.3 mEq/L 11/28/21 00:21 Oxygen Given 4L 11/28/21 09:50 Sodium 139 mmol/L (136-145) 12/06/21 07:19 Potassium 3.5 mmol/L (3.5-5.1) 12/06/21 07:19 Chloride 98 mmol/L (98-107) 12/06/21 07:19 Carbon Dioxide 35 mmol/L (21-32) H 12/06/21 07:19 Anion Gap 6 (3-11) 12/06/21 07:19 BUN 27 mg/dl (6-23) H 12/06/21 07:19 Creatinine 1.02 mg/dl (0.6-1.4) 12/06/21 07:19 Est Cr Clr Drug Dosing 50.2 ml/min 12/06/21 07:19 Est GFR ( Amer) 80.1 ml/min 12/06/21 07:19 Est GFR (Non-Af Amer) 69.1 ml/min 12/06/21 07:19 BUN/Creatinine Ratio 26.5 (10-20) H 12/06/21 07:19 Glucose 115 mg/dl (70-99(Fasting)) H 12/06/21 07:19 Calcium 9.7 mg/dl (8.5-10.1) 12/06/21 07:19 Magnesium 1.8 mg/dl (1.7-2.4) 11/28/21 00:11 Ferritin 153.3 ng/ml (8-388) 11/28/21 08:13 Total Bilirubin 0.5 mg/dl (0.2-1.0) 12/02/21 06:45 AST 28 U/L (13-39) 12/02/21 06:45 ALT 24 U/L (7-52) 12/02/21 06:45 Alkaline Phosphatase 65 U/L (34-104) 12/02/21 06:45 Troponin I High Sens 10.5 pg/ml (0-20) 11/28/21 00:11 C-Reactive Protein 1.55 mg/dl (0-0.5) H 11/28/21 08:13 B-Natriuretic Peptide 167 pg/ml (0-100) H 11/28/21 14:07 Total Protein 6.8 gm/dl (6.0-8.3) 12/02/21 06:45 Albumin 3.8 gm/dl (3.4-5.0) 12/02/21 06:45 Globulin 3.0 gm/dl (2.5-4.0) 12/02/21 06:45 Albumin/Globulin Ratio 1.3 (0.9-2) 12/02/21 06:45 TSH 0.484 uIu/ml (0.300-4.500) 11/29/21 14:34 Urine Color Yellow 11/28/21 01:19 Urine Appearance Clear (Clear) 11/28/21 01:19 Urine pH 6.0 (4.5-7.5) 11/28/21 01:19 Ur Specific [place] 1.011 (1.000-1.030) 11/28/21 01:19 Urine Protein Negative (Negative) 11/28/21 01:19 Urine Glucose (UA) Negative (Negative) 11/28/21 01:19 Urine Ketones Negative (Negative) 11/28/21 01:19 Urine Blood Trace (Negative) H 11/28/21 01:19 Urine Nitrite Negative (Negative) 11/28/21 01:19 Urine Bilirubin Negative (Negative) 11/28/21 01:19 Urine Urobilinogen Negative (Negative) 11/28/21 01:19 Ur Leukocyte Esterase Trace (Negative) H 11/28/21 01:19 Urine WBC (Auto) 1-5 /hpf (0-5) 11/28/21 01:19 Urine RBC (Auto) 0-4 /hpf (0-4) 11/28/21 01:19 U Hyaline Cast (Auto) 0 /lpf (0-5) 11/28/21 01:19 U Epithel Cells (Auto) 10-20 /lpf (0-5) H 11/28/21 01:19 Urine Bacteria (Auto) Negative (Negative) 11/28/21 01:19 SARS-CoV-2 (PCR) POSITIVE (Negative) A* 11/28/21 01:27 Influenza Type A (PCR) Negative (Neg) 11/28/21 01:27 Influenza Type B (PCR) Negative (Neg) 11/28/21 01:27 RSV (RT-PCR) Negative (Neg) 11/28/21 01:27 Impressions Chest CTA 11/28/21 01:14 CT ANGIOGRAPHY OF THE CHEST, PULMONARY EMBOLUS PROTOCOL CLINICAL HISTORY: Shortness of breath. Evaluate for pulmonary embolus. COMPARISON STUDY: Chest CT December 23, 2019. Chest radiograph November 28, 2021. TECHNIQUE: Following IV administration of 114 mL of Optiray, helical axial images of the chest were obtained utilizing the pulmonary embolus protocol. Maximal intensity projections and sagittal and coronal reformats were viewed on an independent 3D workstation. IV contrast was administered without complication. Automated exposure control was utilized for the study. A dose lowering technique was utilized adhering to the principles of ALARA. CT DOSE: 800.72 mGy.cm FINDINGS: This exam is moderately compromised by respiratory motion. No definite pulmonary emboli are identified. Apparent filling defects within segmental left upper lobe pulmonary arteries are likely artifactual. There is no pericardial effusion. No thoracic aortic dissection is noted. There is moderate coronary artery calcification. Size of the heart is within normal limits. No thoracic lymphadenopathy is present. Thoracolumbar spine scoliosis is incidentally noted. No consolidation is identified to suggest pneumonia. A calcified granuloma within the right lower lobe is noted. Subpleural opacities reflect atelectasis. There are no suspicious pulmonary nodules. There are calcified granulomas within the spleen. Gallstones are noted within the gallbladder. IMPRESSION: 1. No definite pulmonary emboli. Exam compromised by respiratory motion artifact. Apparent filling defects within segmental left upper lobe pulmonary arteries are likely artifactual. This finding will be called/faxed to ordering provider at time of dictation. 2. No consolidation to suggest pneumonia. 3. Thoracolumbar spine scoliosis. ACT 112: Negative or not required by law. Electronically signed by: Abimael Feldman M.D. 11/28/2021 9:48 AM Chest X-Ray 11/30/21 09:50 XR chest 1V portable HISTORY: ff up covid COMPARISON: Chest 11/28/2021. FINDINGS: No pneumothorax. No pleural effusions. There are low lung volumes with mild elevation the right hemidiaphragm, unchanged. Bibasilar densities also persist and favor atelectasis. The heart remains mildly enlarged. Ossified granuloma within the right lower lobe. S-shaped scoliosis of the thoracolumbar spine. IMPRESSION: No change in the low lung volumes and bibasilar linear densities. This favors subsegmental atelectasis. ACT 112: Negative or not required by law. Electronically signed by: Byron Collazo M.D. 11/30/2021 11:51 AM
[2021-12-08] MEDS: PANTOprazole 40 MG TAB PO SCH (20:30)
[2021-12-09] MEDS: oxyCODONE HCL IR 5 MG TAB (IMMEDIATE RELEASE) PO PRN (00:29)
[2021-12-09] MEDS: HEPARIN SOD 5,000 UNIT/0.5 ML VIAL SQ SCH ×3 (05:34→23:17)
[2021-12-09] MEDS: LEVOTHYROXINE SODIUM 100 MCG TABLET PO SCH (05:34)
[2021-12-09] MEDS: Ipratropium HFA Inhaler (Combivent Respimat P&T Subs) INH SCH ×4 (07:40→19:53)
[2021-12-09] MEDS: Albuterol HFA 8 GM Inhaler (Combivent Respimat P&T Subs) INH SCH ×4 (07:40→19:52)
[2021-12-09] MEDS: CITALOPRAM 40 MG TAB PO SCH (08:04)
[2021-12-09] MEDS: ISOSORBIDE MONO EXTENDED REL 30 MG TABCR PO SCH (08:04)
[2021-12-09] MEDS: FLUTICASONE PROPIONATE NA SPR 16 GM BTL SCH (08:04)
[2021-12-09] MEDS: UMECLIDINIUM/VILANTEROL 62.5/25MCG 7 PUFFS/INHALER INH SCH (08:04)
[2021-12-09] MEDS: FUROSEMIDE 20 MG TAB PO SCH (08:04)
[2021-12-09] MEDS: PROPRANOLOL HCL 20 MG TAB PO SCH ×3 (08:04→20:52)
[2021-12-09] MEDS: ROSUVASTATIN CALCIUM 5 MG TAB PO SCH (08:04)
[2021-12-09] MEDS: CLOPIDOGREL BISULFATE 75 MG TAB PO SCH (08:04)
[2021-12-09] MEDS: MULTIVITAMIN TAB PO SCH (08:04)
[2021-12-09] MEDS: guaiFENesin 600 MG TABCR PO SCH ×2 (08:04→20:51)
[2021-12-09] MEDS: PANTOprazole 40 MG TAB PO SCH (20:51)
--- NOTE | 2021-12-09 22:15 | Hospitalist Progress Note ---
Date of Service December 09, 2021 Assessment & Plan (1) Acute and chronic respiratory failure with hypercapnia: Plan: Acute on chronic hypoxic respiratory failure secondary to: COVID-19 infection Acute bronchitis Underlying COPD, restrictive lung disease/granulomatous lung disease, on 4 L of oxygen by nasal cannula at home, EZEQUIEL (CPAP intolerance), Sepsis, POA CT angiogram chest: No pulmonary embolism, no pneumonia Plan: Continue supplemental oxygen as needed. Titrate oxygen to maintain saturation above 88 to 90%. Status post 5 days of remdesivir completed on 12/02 Status post 10 days of dexamethasone on 12/08. Continue on doxycycline; completed on 12/05 Lasix decreased to 20mg once daily. Continue on albuterol and ipratropium inhalers. Pulmonology recommendation appreciated. -Continue flutter valve and incentive spirometry Dysphagia -- Follows with GI Soft diet Aspiration precautions Hx chronic right-sided heart failure (EF 55 to 60%, TTE 2020) --on Lasix 20 mg p.o. daily hx CAD status post stenting HTN, stable hypothyroidism, euthyroid as of recent outpatient TSH from August 2021 Essential tremors at baseline: Propanolol resumed DVT prophylaxis. Heparin subcu Full code Disposition: Plan to go to rehab once medically stable Admission and Anticipated Discharge Date Admission Date: November 28, 2021 Subjective Patient was seen and evaluated for follow-up of shortness of breath Sitting in chair with no acute distress watching TV Patient said that he feels weak He said that his breathing is stable Denies any chest pain, palpitation, dizziness, shortness of breath. Review of Systems Review of Systems: All systems reviewed & are unremarkable except as noted in Subjective Physical Exam Physical Exam: General- No acute distress Head- atraumatic Eyes- PERRL, EOMI, ENT- oropharynx clear Neck- supple, no JVD Lungs-+diminished breath sounds Heart- regular rhythm; no murmur Abdomen- normal bowel sounds, soft, nontender Extremities- no calf tenderness Neuro- alert, oriented x 3; PERRL, EOMI; no facial palsy; no dysarthria Skin- warm & dry Results & Data Results & Data ([facility]) Vital Signs (Past 12 Hours) Vital Signs Temp Pulse Pulse Resp BP BP Pulse Ox 12/09/21 21:20 12/09/21 19:53 57 L 18 93 12/09/21 19:42 36.5 C 63 20 123/76 92 12/09/21 16:29 72 12/09/21 15:57 36.7 C 54 L 16 103/70 94 12/09/21 15:27 42 L 14 91 12/09/21 11:20 56 L 21 91 12/09/21 11:22 36.5 C 55 L 16 108/71 92 O2 Del Method O2 Flow Rate FiO2 12/09/21 21:20 Nasal Cannula 4 12/09/21 19:53 Nasal Cannula 5 12/09/21 19:42 Nasal Cannula 4 12/09/21 16:29 12/09/21 15:57 Nasal Cannula 4 12/09/21 15:27 Room Air 21 12/09/21 11:20 Nasal Cannula 4 12/09/21 11:22 Nasal Cannula 5
[2021-12-10] MEDS: HEPARIN SOD 5,000 UNIT/0.5 ML VIAL SQ SCH (05:57)
[2021-12-10] MEDS: LEVOTHYROXINE SODIUM 100 MCG TABLET PO SCH (05:57)
[2021-12-10 07:40] LABS: BUN Creatinine Ratio 18.1 (10-20); Calcium 9.2 mg/dl (8.5-10.1); Creatinine Clr Calc Pharmacy 61.7 ml/min; Est GFR (African American) 96.3 ml/min; Est GFR (Non-African American) 83.1 ml/min; Potassium 3.5 mmol/L (3.5-5.1)
[2021-12-10] MEDS: Albuterol HFA 8 GM Inhaler (Combivent Respimat P&T Subs) INH SCH ×4 (07:41→19:11)
[2021-12-10] MEDS: Ipratropium HFA Inhaler (Combivent Respimat P&T Subs) INH SCH ×4 (07:41→19:12)
[2021-12-10 08:02] LABS: Hematocrit (blood only) 48.3 % (40.1-51.0); Hemoglobin 16.4 g/dl (14.0-18.0); Mean Corpuscular Hemoglobin 31.1 pg (25.0-34.0); Mean Corpuscular Volume 91.5 fL (80.0-100.0); Mean Platelet Volume 11.4 fL (9.4-12.4); Platelet Count 115 K/uL (130-400); RDW Coefficient of Variation 15.9 % (11.5-14.5); RDW Standard Deviation 53.1 fL (36.4-46.3); Red Blood Count 5.28 M/uL (4.63-6.08); White Blood Count 16.22 K/ul (4.8-10.8)
[2021-12-10] MEDS: FLUTICASONE PROPIONATE NA SPR 16 GM BTL SCH (08:49)
[2021-12-10] MEDS: MULTIVITAMIN TAB PO SCH (08:50)
[2021-12-10] MEDS: CLOPIDOGREL BISULFATE 75 MG TAB PO SCH (08:50)
[2021-12-10] MEDS: ISOSORBIDE MONO EXTENDED REL 30 MG TABCR PO SCH (08:50)
[2021-12-10] MEDS: CITALOPRAM 40 MG TAB PO SCH (08:50)
[2021-12-10] MEDS: guaiFENesin 600 MG TABCR PO SCH ×2 (08:50→21:12)
[2021-12-10] MEDS: PROPRANOLOL HCL 20 MG TAB PO SCH ×3 (08:50→21:11)
[2021-12-10] MEDS: FUROSEMIDE 20 MG TAB PO SCH (08:50)
[2021-12-10] MEDS: UMECLIDINIUM/VILANTEROL 62.5/25MCG 7 PUFFS/INHALER INH SCH (08:50)
[2021-12-10] MEDS: ROSUVASTATIN CALCIUM 5 MG TAB PO SCH (08:50)
[2021-12-10] MEDS: PANTOprazole 40 MG TAB PO SCH (21:11)
[2021-12-10] MEDS: ACETAMINOPHEN 325 MG TAB PO PRN (21:20)
--- NOTE | 2021-12-10 23:25 | Hospitalist Progress Note ---
Date of Service December 10, 2021 Assessment & Plan (1) Acute and chronic respiratory failure with hypercapnia: Plan: Acute on chronic hypoxic respiratory failure secondary to: COVID-19 infection Acute bronchitis Underlying COPD, restrictive lung disease/granulomatous lung disease, on 4 L of oxygen by nasal cannula at home, EZEQUIEL (CPAP intolerance), Sepsis, POA CT angiogram chest: No pulmonary embolism, no pneumonia Plan: Continue supplemental oxygen as needed. Titrate oxygen to maintain saturation above 88 to 90%. Status post 5 days of remdesivir completed on 12/02 Status post 10 days of dexamethasone on 12/08. Continue on doxycycline; completed on 12/05 Lasix decreased to 20mg once daily. Continue on albuterol and ipratropium inhalers. Pulmonology recommendation appreciated. -Continue flutter valve and incentive spirometry Dysphagia -- Follows with GI Soft diet Aspiration precautions Hx chronic right-sided heart failure (EF 55 to 60%, TTE 2020) --on Lasix 20 mg p.o. daily hx CAD status post stenting HTN, stable hypothyroidism, euthyroid as of recent outpatient TSH from August 2021 Essential tremors at baseline: Propanolol resumed DVT prophylaxis. Heparin subcu Full code Disposition: Plan to go to rehab once medically stable Admission and Anticipated Discharge Date Admission Date: November 28, 2021 Subjective Patient was seen and evaluated for follow-up of shortness of breath Sitting in chair with no acute distress watching TV Patient said that he feels weak Denies any chest pain, palpitation, dizziness, shortness of breath. Review of Systems Review of Systems: All systems reviewed & are unremarkable except as noted in Subjective Physical Exam Physical Exam: General- No acute distress Head- atraumatic Eyes- PERRL, EOMI, ENT- oropharynx clear Neck- supple, no JVD Lungs-+diminished breath sounds Heart- regular rhythm; no murmur Abdomen- normal bowel sounds, soft, nontender Extremities- no calf tenderness Neuro- alert, oriented x 3; PERRL, EOMI; no facial palsy; no dysarthria Skin- warm & dry Results & Data Results & Data ([facility]) Vital Signs (Past 12 Hours) Vital Signs Temp Pulse Pulse Resp BP Pulse Ox O2 Del Method 12/10/21 23:17 36.5 C 56 L 20 112/72 96 Nasal Cannula 12/10/21 22:48 57 L 12/10/21 20:00 Nasal Cannula 12/10/21 20:50 36.5 C 63 18 110/71 93 Nasal Cannula 12/10/21 19:12 63 20 95 Nasal Cannula 12/10/21 15:00 36.5 C 60 18 115/68 97 12/10/21 14:43 60 18 94 Nasal Cannula O2 Flow Rate 12/10/21 23:17 12/10/21 22:48 12/10/21 20:00 4 12/10/21 20:50 4.0 12/10/21 19:12 4 12/10/21 15:00 12/10/21 14:43 4
[2021-12-11] MEDS: LEVOTHYROXINE SODIUM 100 MCG TABLET PO SCH (06:07)
[2021-12-11] MEDS: Albuterol HFA 8 GM Inhaler (Combivent Respimat P&T Subs) INH SCH ×4 (07:15→19:37)
[2021-12-11] MEDS: Ipratropium HFA Inhaler (Combivent Respimat P&T Subs) INH SCH ×4 (07:15→19:36)
[2021-12-11] MEDS: PROPRANOLOL HCL 20 MG TAB PO SCH ×3 (10:04→20:42)
[2021-12-11] MEDS: CLOPIDOGREL BISULFATE 75 MG TAB PO SCH (10:04)
[2021-12-11] MEDS: FUROSEMIDE 20 MG TAB PO SCH (10:04)
[2021-12-11] MEDS: guaiFENesin 600 MG TABCR PO SCH ×2 (10:04→20:44)
[2021-12-11] MEDS: ISOSORBIDE MONO EXTENDED REL 30 MG TABCR PO SCH (10:04)
[2021-12-11] MEDS: CITALOPRAM 40 MG TAB PO SCH (10:04)
[2021-12-11] MEDS: MULTIVITAMIN TAB PO SCH (10:04)
[2021-12-11] MEDS: ROSUVASTATIN CALCIUM 5 MG TAB PO SCH (10:04)
[2021-12-11] MEDS: UMECLIDINIUM/VILANTEROL 62.5/25MCG 7 PUFFS/INHALER INH SCH (10:04)
[2021-12-11] MEDS: FLUTICASONE PROPIONATE NA SPR 16 GM BTL SCH (10:05)
[2021-12-11] MEDS: PANTOprazole 40 MG TAB PO SCH (20:44)
[2021-12-11] MEDS: HEPARIN SOD 5,000 UNIT/0.5 ML VIAL SQ SCH (20:45)
--- NOTE | 2021-12-11 21:52 | Hospitalist Progress Note ---
Date of Service December 11, 2021 Assessment & Plan (1) Acute and chronic respiratory failure with hypercapnia: Plan: Acute on chronic hypoxic respiratory failure secondary to: COVID-19 infection Acute bronchitis Underlying COPD, restrictive lung disease/granulomatous lung disease, on 4 L of oxygen by nasal cannula at home, EZEQUIEL (CPAP intolerance), Sepsis, POA CT angiogram chest: No pulmonary embolism, no pneumonia Plan: Continue supplemental oxygen as needed. Titrate oxygen to maintain saturation above 88 to 90%. Status post 5 days of remdesivir completed on 12/02 Status post 10 days of dexamethasone on 12/08. Continue on doxycycline; completed on 12/05 Lasix decreased to 20mg once daily. Continue on albuterol and ipratropium inhalers. Pulmonology recommendation appreciated. -Continue flutter valve and incentive spirometry - Case discussed with infection control that ok to remove contact precaution tomorrow if no tylenol given over 24 hrs ad pt has no symptoms or afebrile Dysphagia -- Follows with GI Soft diet Aspiration precautions Hx chronic right-sided heart failure (EF 55 to 60%, TTE 2020) --on Lasix 20 mg p.o. daily hx CAD status post stenting HTN, stable hypothyroidism, euthyroid as of recent outpatient TSH from August 2021 Essential tremors at baseline: Propanolol resumed DVT prophylaxis. Heparin subcu Full code Disposition: Plan to go to rehab once bed available Admission and Anticipated Discharge Date Admission Date: November 28, 2021 Subjective Patient was seen and evaluated for follow-up of shortness of breath Lying in bed with no acute distress watching TV Denies any chest pain, palpitation, dizziness, shortness of breath. Review of Systems Review of Systems: All systems reviewed & are unremarkable except as noted in Subjective Physical Exam Physical Exam: General- No acute distress Head- atraumatic Eyes- PERRL, EOMI, ENT- oropharynx clear Neck- supple, no JVD Lungs-+diminished breath sounds Heart- regular rhythm; no murmur Abdomen- normal bowel sounds, soft, nontender Extremities- no calf tenderness Neuro- alert, oriented x 3; PERRL, EOMI; no facial palsy; no dysarthria Skin- warm & dry Results & Data Results & Data ([facility]) Vital Signs (Past 12 Hours) Vital Signs Temp Pulse Resp BP BP Pulse Ox O2 Del Method 12/11/21 21:09 60 19 96 Nasal Cannula 12/11/21 19:32 36.6 C 63 20 107/68 94 Nasal Cannula 12/11/21 16:14 36.4 C L 56 L 18 96/67 L 94 Nasal Cannula 12/11/21 11:00 36.7 C 62 18 103/70 95 Nasal Cannula 12/11/21 11:48 58 L 18 97 Nasal Cannula O2 Flow Rate 12/11/21 21:09 3 12/11/21 19:32 4 12/11/21 16:14 3 12/11/21 11:00 3 12/11/21 11:48 3
[2021-12-12] MEDS: LEVOTHYROXINE SODIUM 100 MCG TABLET PO SCH (05:52)
[2021-12-12] MEDS: Albuterol HFA 8 GM Inhaler (Combivent Respimat P&T Subs) INH SCH ×4 (06:20→19:36)
[2021-12-12] MEDS: Ipratropium HFA Inhaler (Combivent Respimat P&T Subs) INH SCH ×4 (06:20→19:36)
[2021-12-12] MEDS: UMECLIDINIUM/VILANTEROL 62.5/25MCG 7 PUFFS/INHALER INH SCH (08:55)
[2021-12-12] MEDS: PROPRANOLOL HCL 20 MG TAB PO SCH ×3 (08:55→20:18)
[2021-12-12] MEDS: ROSUVASTATIN CALCIUM 5 MG TAB PO SCH (08:55)
[2021-12-12] MEDS: FLUTICASONE PROPIONATE NA SPR 16 GM BTL SCH (08:55)
[2021-12-12] MEDS: MULTIVITAMIN TAB PO SCH (08:55)
[2021-12-12] MEDS: ISOSORBIDE MONO EXTENDED REL 30 MG TABCR PO SCH (08:55)
[2021-12-12] MEDS: guaiFENesin 600 MG TABCR PO SCH ×2 (08:56→20:49)
[2021-12-12] MEDS: CITALOPRAM 40 MG TAB PO SCH (08:56)
[2021-12-12] MEDS: FUROSEMIDE 20 MG TAB PO SCH (08:56)
[2021-12-12] MEDS: CLOPIDOGREL BISULFATE 75 MG TAB PO SCH (08:56)
[2021-12-12] MEDS: HEPARIN SOD 5,000 UNIT/0.5 ML VIAL SQ SCH ×2 (10:15→20:18)
--- NOTE | 2021-12-12 16:05 | Hospitalist Progress Note ---
Date of Service December 12, 2021 Assessment & Plan (1) Acute and chronic respiratory failure with hypercapnia: Plan: Acute on chronic hypoxic respiratory failure secondary to: COVID-19 infection Acute bronchitis Underlying COPD, restrictive lung disease/granulomatous lung disease, on 4 L of oxygen by nasal cannula at home, EZEQUIEL (CPAP intolerance), Sepsis, POA CT angiogram chest: No pulmonary embolism, no pneumonia Plan: Continue supplemental oxygen as needed. Titrate oxygen to maintain saturation above 88 to 90%. Status post 5 days of remdesivir completed on 12/02 Status post 10 days of dexamethasone on 12/08. Continue on doxycycline; completed on 12/05 Lasix decreased to 20mg once daily. Continue on albuterol and ipratropium inhalers. Pulmonology recommendation appreciated. -Continue flutter valve and incentive spirometry - Case discussed with infection control that ok to remove contact precaution today since pt did not get Tylenol and remains afebrile Dysphagia -- Follows with GI Soft diet Aspiration precautions Hx chronic right-sided heart failure (EF 55 to 60%, TTE 2020) --on Lasix 20 mg p.o. daily hx CAD status post stenting HTN, stable hypothyroidism, euthyroid as of recent outpatient TSH from August 2021 Essential tremors at baseline: Propanolol resumed DVT prophylaxis. Heparin subcu Full code Disposition: Waiting for placement to [facility] Admission and Anticipated Discharge Date Admission Date: November 28, 2021 Subjective Patient was seen and evaluated for follow-up of shortness of breath Lying in bed with no acute distress Contact precaution removed today Denies any chest pain, palpitation, dizziness, shortness of breath. Review of Systems Review of Systems: All systems reviewed & are unremarkable except as noted in Subjective Physical Exam Physical Exam: General- No acute distress Head- atraumatic Eyes- PERRL, EOMI, ENT- oropharynx clear Neck- supple, no JVD Lungs-+diminished breath sounds Heart- regular rhythm; no murmur Abdomen- normal bowel sounds, soft, nontender Extremities- no calf tenderness Neuro- alert, oriented x 3; PERRL, EOMI; no facial palsy; no dysarthria Skin- warm & dry Results & Data Results & Data ([facility]) Vital Signs (Past 12 Hours) Vital Signs Temp Pulse Pulse Resp BP Pulse Ox O2 Del Method 12/12/21 15:46 36.5 C 59 L 19 122/76 93 Nasal Cannula 12/12/21 15:10 62 18 92 Nasal Cannula 12/12/21 11:50 36.6 C 54 L 19 105/65 92 Nasal Cannula 12/12/21 11:04 56 L 16 91 Nasal Cannula 12/12/21 07:00 Nasal Cannula 12/12/21 07:46 36.7 C 56 L 20 116/78 92 Nasal Cannula 12/12/21 07:02 58 L 12/12/21 06:20 57 L 18 93 12/12/21 04:47 36.4 C L 57 L 18 127/83 92 Nasal Cannula O2 Flow Rate 12/12/21 15:46 3 12/12/21 15:10 3 12/12/21 11:50 3 12/12/21 11:04 3 12/12/21 07:00 4 12/12/21 07:46 12/12/21 07:02 12/12/21 06:20 3 12/12/21 04:47 4
[2021-12-12] MEDS ORDERED: Nursing to Pharmacy Communication SCH (20:30)
[2021-12-12] MEDS: PANTOprazole 40 MG TAB PO SCH (20:50)
[2021-12-13] MEDS ORDERED: POLYETHYLENE (MIRALAX) 17 GM PACK PO STA (05:32)
[2021-12-13] MEDS ORDERED: POLYETHYLENE (MIRALAX) 17 GM PACK PO PRN (05:32)
[2021-12-13] MEDS: LEVOTHYROXINE SODIUM 100 MCG TABLET PO SCH (05:40)
[2021-12-13] MEDS: DOCUSATE SODIUM/SENNA 50/8.6MG TAB PO SCH (05:42)
[2021-12-13 06:15] LABS: BUN Creatinine Ratio 14.1 (10-20); Calcium 9.2 mg/dl (8.5-10.1); Creatinine Clr Calc Pharmacy 60.3 ml/min; Est GFR (African American) 95.4 ml/min; Est GFR (Non-African American) 82.3 ml/min; Potassium 3.9 mmol/L (3.5-5.1)
[2021-12-13] MEDS: Albuterol HFA 8 GM Inhaler (Combivent Respimat P&T Subs) INH SCH ×4 (07:13→19:47)
[2021-12-13] MEDS: Ipratropium HFA Inhaler (Combivent Respimat P&T Subs) INH SCH ×4 (07:13→19:46)
[2021-12-13 07:36] LABS: Hemoglobin 15.5 g/dl (14.0-18.0); Mean Corpuscular Hemoglobin 31.1 pg (25.0-34.0); Mean Corpuscular Hgb Conc 34.4 g/dL (32.0-36.0); Mean Corpuscular Volume 90.2 fL (80.0-100.0); Mean Platelet Volume 10.9 fL (9.4-12.4); Platelet Count 117 K/uL (130-400); RDW Coefficient of Variation 15.7 % (11.5-14.5); Red Blood Count 4.99 M/uL (4.63-6.08); White Blood Count 11.56 K/ul (4.8-10.8)
[2021-12-13] MEDS: MULTIVITAMIN TAB PO SCH (08:00)
[2021-12-13] MEDS: PROPRANOLOL HCL 20 MG TAB PO SCH ×3 (08:00→20:16)
[2021-12-13] MEDS: FLUTICASONE PROPIONATE NA SPR 16 GM BTL SCH (08:00)
[2021-12-13] MEDS: UMECLIDINIUM/VILANTEROL 62.5/25MCG 7 PUFFS/INHALER INH SCH (08:00)
[2021-12-13] MEDS: ROSUVASTATIN CALCIUM 5 MG TAB PO SCH (08:00)
[2021-12-13] MEDS: ISOSORBIDE MONO EXTENDED REL 30 MG TABCR PO SCH (08:00)
[2021-12-13] MEDS: guaiFENesin 600 MG TABCR PO SCH ×2 (08:00→20:16)
[2021-12-13] MEDS: CLOPIDOGREL BISULFATE 75 MG TAB PO SCH (08:00)
[2021-12-13] MEDS: CITALOPRAM 40 MG TAB PO SCH (08:00)
[2021-12-13] MEDS: FUROSEMIDE 20 MG TAB PO SCH (11:22)
[2021-12-13] MEDS: HEPARIN SOD 5,000 UNIT/0.5 ML VIAL SQ SCH ×2 (11:23→23:11)
[2021-12-13] MEDS: PANTOprazole 40 MG TAB PO SCH (20:15)
--- NOTE | 2021-12-13 23:28 | Hospitalist Progress Note ---
Date of Service December 13, 2021 Assessment & Plan (1) Acute and chronic respiratory failure with hypercapnia: Plan: Acute on chronic hypoxic respiratory failure secondary to: COVID-19 infection Acute bronchitis Underlying COPD, restrictive lung disease/granulomatous lung disease, on 4 L of oxygen by nasal cannula at home, EZEQUIEL (CPAP intolerance), Sepsis, POA CT angiogram chest: No pulmonary embolism, no pneumonia Plan: Continue supplemental oxygen as needed. Titrate oxygen to maintain saturation above 88 to 90%. Status post 5 days of remdesivir completed on 12/02 Status post 10 days of dexamethasone on 12/08. Continue on doxycycline; completed on 12/05 Lasix decreased to 20mg once daily. Continue on albuterol and ipratropium inhalers. Pulmonology recommendation appreciated. -Continue flutter valve and incentive spirometry - Case discussed with infection control that ok to remove contact precaution today since pt did not get Tylenol and remains afebrile Dysphagia -- Follows with GI Soft diet Aspiration precautions Hx chronic right-sided heart failure (EF 55 to 60%, TTE 2020) --on Lasix 20 mg p.o. daily hx CAD status post stenting HTN, stable hypothyroidism, euthyroid as of recent outpatient TSH from August 2021 Essential tremors at baseline: Propanolol resumed DVT prophylaxis. Heparin subcu Full code Disposition: Waiting for placement to [facility] [place] [facility] Admission and Anticipated Discharge Date Admission Date: November 28, 2021 Subjective Patient was seen and evaluated for follow-up of shortness of breath Lying in bed with no acute distress He said that he walked 2 laps in the hallway today Denies any chest pain, palpitation, dizziness, shortness of breath. Review of Systems Review of Systems: All systems reviewed & are unremarkable except as noted in Subjective Physical Exam Physical Exam: General- No acute distress Head- atraumatic Eyes- PERRL, EOMI, ENT- oropharynx clear Neck- supple, no JVD Lungs-+diminished breath sounds Heart- regular rhythm; no murmur Abdomen- normal bowel sounds, soft, nontender Extremities- no calf tenderness Neuro- alert, oriented x 3; PERRL, EOMI; no facial palsy; no dysarthria Skin- warm & dry Results & Data Results & Data ([facility]) Vital Signs (Past 12 Hours) Vital Signs Temp Pulse Pulse Resp BP Pulse Ox O2 Del Method 12/13/21 22:54 36.5 C 56 L 18 111/68 91 Nasal Cannula 12/13/21 20:47 68 18 94 Nasal Cannula 12/13/21 19:47 Nasal Cannula 12/13/21 19:38 36.4 C L 60 20 131/86 97 Room Air 12/13/21 15:00 55 L 16 94 Nasal Cannula 12/13/21 18:00 55 L 12/13/21 15:18 36.8 C 54 L 19 110/77 93 Nasal Cannula 12/13/21 13:07 61 20 93 Nasal Cannula O2 Flow Rate 12/13/21 22:54 3 12/13/21 20:47 4 12/13/21 19:47 4 12/13/21 19:38 12/13/21 15:00 3 12/13/21 18:00 12/13/21 15:18 3 12/13/21 13:07 3
[2021-12-14] MEDS: LEVOTHYROXINE SODIUM 100 MCG TABLET PO SCH (06:01)
[2021-12-14] MEDS: Ipratropium HFA Inhaler (Combivent Respimat P&T Subs) INH SCH ×4 (07:10→19:50)
[2021-12-14] MEDS: Albuterol HFA 8 GM Inhaler (Combivent Respimat P&T Subs) INH SCH ×4 (07:10→19:50)
[2021-12-14] MEDS: guaiFENesin 600 MG TABCR PO SCH ×2 (08:37→20:04)
[2021-12-14] MEDS: MULTIVITAMIN TAB PO SCH (08:37)
[2021-12-14] MEDS: FUROSEMIDE 20 MG TAB PO SCH (08:37)
[2021-12-14] MEDS: ISOSORBIDE MONO EXTENDED REL 30 MG TABCR PO SCH (08:37)
[2021-12-14] MEDS: DOCUSATE SODIUM/SENNA 50/8.6MG TAB PO SCH (08:37)
[2021-12-14] MEDS: CITALOPRAM 40 MG TAB PO SCH (08:37)
[2021-12-14] MEDS: ROSUVASTATIN CALCIUM 5 MG TAB PO SCH (08:37)
[2021-12-14] MEDS: CLOPIDOGREL BISULFATE 75 MG TAB PO SCH (08:37)
[2021-12-14] MEDS: FLUTICASONE PROPIONATE NA SPR 16 GM BTL SCH (08:37)
[2021-12-14] MEDS: PROPRANOLOL HCL 20 MG TAB PO SCH ×3 (08:37→20:05)
[2021-12-14] MEDS: UMECLIDINIUM/VILANTEROL 62.5/25MCG 7 PUFFS/INHALER INH SCH (08:38)
[2021-12-14] MEDS: HEPARIN SOD 5,000 UNIT/0.5 ML VIAL SQ SCH ×2 (11:33→22:10)
--- NOTE | 2021-12-14 17:43 | Hospitalist Progress Note ---
Date of Service December 14, 2021 Assessment & Plan (1) Acute and chronic respiratory failure with hypercapnia: Plan: Acute on chronic hypoxic respiratory failure secondary to: COVID-19 infection Acute bronchitis Underlying COPD, restrictive lung disease/granulomatous lung disease, on 4 L of oxygen by nasal cannula at home, EZEQUIEL (CPAP intolerance), Sepsis, POA CT angiogram chest: No pulmonary embolism, no pneumonia Plan: Continue supplemental oxygen as needed. Titrate oxygen to maintain saturation above 88 to 90%. Status post 5 days of remdesivir completed on 12/02 Status post 10 days of dexamethasone on 12/08. Continue on doxycycline; completed on 12/05 Lasix decreased to 20mg once daily. Continue on albuterol and ipratropium inhalers. Pulmonology recommendation appreciated. -Continue flutter valve and incentive spirometry - Case discussed with infection control that ok to remove contact precaution today since pt did not get Tylenol and remains afebrile Dysphagia -- Follows with GI Soft diet Aspiration precautions Hx chronic right-sided heart failure (EF 55 to 60%, TTE 2020) --on Lasix 20 mg p.o. daily hx CAD status post stenting HTN, stable hypothyroidism, euthyroid as of recent outpatient TSH from August 2021 Essential tremors at baseline: Propanolol resumed Ambulatory dysfunction Continue PT/OT fall precaution Peer to peer reviewed done today with dr. Cruz that did not approve [facility] case management was notified DVT prophylaxis. Heparin subcu Full code Disposition: Waiting for placement to [facility] Admission and Anticipated Discharge Date Admission Date: November 28, 2021 Subjective Patient was seen and evaluated for follow-up of shortness of breath Sitting in chair with no acute distress Peer to peer reviewed done today with dr. Cruz that did not approve [facility] I spoke to daughter over the phone in details to update her and answered all her questions Denies any chest pain, palpitation, dizziness, shortness of breath. Review of Systems Review of Systems: All systems reviewed & are unremarkable except as noted in Subjective Physical Exam Physical Exam: General- No acute distress Head- atraumatic Eyes- PERRL, EOMI, ENT- oropharynx clear Neck- supple, no JVD Lungs-+diminished breath sounds Heart- regular rhythm; no murmur Abdomen- normal bowel sounds, soft, nontender Extremities- no calf tenderness Neuro- alert, oriented x 3; PERRL, EOMI; no facial palsy; no dysarthria Skin- warm & dry Results & Data Results & Data ([facility]) Vital Signs (Past 12 Hours) Vital Signs Temp Pulse Pulse Resp BP BP Pulse Ox 12/14/21 15:24 36.6 C 61 18 108/66 93 12/14/21 15:14 81 18 97 12/14/21 11:53 36.6 C 71 19 109/77 91 12/14/21 10:51 82 18 96 12/14/21 07:30 56 L 12/14/21 07:30 12/14/21 07:42 36.4 C L 58 L 21 114/68 98 12/14/21 07:09 84 18 97 O2 Del Method O2 Flow Rate 12/14/21 15:24 Nasal Cannula 3 12/14/21 15:14 Nasal Cannula 3 12/14/21 11:53 Nasal Cannula 3 12/14/21 10:51 Nasal Cannula 3 12/14/21 07:30 12/14/21 07:30 Nasal Cannula 4 12/14/21 07:42 Nasal Cannula 3 12/14/21 07:09 Nasal Cannula 3
[2021-12-14] MEDS: PANTOprazole 40 MG TAB PO SCH (20:04)
[2021-12-15] MEDS: LEVOTHYROXINE SODIUM 100 MCG TABLET PO SCH (05:49)
[2021-12-15] MEDS: Albuterol HFA 8 GM Inhaler (Combivent Respimat P&T Subs) INH SCH ×3 (07:40→15:08)
[2021-12-15] MEDS: Ipratropium HFA Inhaler (Combivent Respimat P&T Subs) INH SCH ×3 (07:40→15:07)
[2021-12-15] MEDS: FUROSEMIDE 20 MG TAB PO SCH (07:49)
[2021-12-15] MEDS: guaiFENesin 600 MG TABCR PO SCH (07:49)
[2021-12-15] MEDS: PROPRANOLOL HCL 20 MG TAB PO SCH ×2 (07:50→11:11)
[2021-12-15] MEDS: DOCUSATE SODIUM/SENNA 50/8.6MG TAB PO SCH (07:51)
[2021-12-15] MEDS: UMECLIDINIUM/VILANTEROL 62.5/25MCG 7 PUFFS/INHALER INH SCH (07:54)
[2021-12-15] MEDS: FLUTICASONE PROPIONATE NA SPR 16 GM BTL SCH (07:55)
[2021-12-15] MEDS: HEPARIN SOD 5,000 UNIT/0.5 ML VIAL SQ SCH (07:55)
[2021-12-15] MEDS: ISOSORBIDE MONO EXTENDED REL 30 MG TABCR PO SCH (08:26)
[2021-12-15] MEDS: CITALOPRAM 40 MG TAB PO SCH (08:26)
[2021-12-15] MEDS: CLOPIDOGREL BISULFATE 75 MG TAB PO SCH (08:26)
[2021-12-15] MEDS: MULTIVITAMIN TAB PO SCH (08:26)
[2021-12-15] MEDS: ROSUVASTATIN CALCIUM 5 MG TAB PO SCH (08:26)
--- NOTE | 2021-12-15 16:06 | Discharge Summary ---
Date of Service December 15, 2021 Admission HPI Per Admitting Provider Chief Complaint: Worsening shortness of breath, cough Primary Care Provider: Jennifer Sarkar MD History obtained from patient, family, and records. Medical history significant for chronic right-sided heart failure (EF 55 to 60%, TTE 2020) on Lasix and Jardiance, CAD status post stenting, restrictive lung disease/granulomatous lung disease, EZEQUIEL (CPAP intolerance), nocturnal hypoxemia nasal cannula at night, HTN, hypothyroidism, essential tremors, chronic back pain, past tobacco abuse Last confinement June 2021 for periodontal abscess status post drainage. 2 days ago, patient noted junky cough symptoms and shortness of breath worse than usual. No recent choking episodes, chest pain and headache with coughing. No unusual fluid retention/weight gain as per patient. No known recent sick contacts. Patient completed COVID-19 vaccination. Solu-Medrol administered at the ER. IV heparin initiated for pulmonary embolism. Admission Exam Per Admitting Provider GENERAL: Slightly uncomfortable, tremulous, no respiratory distress SKIN: Normal color, warm HEENT: [place] palpebral conjunctivae, no ptosis, dry buccal mucosa, nasal cannula in place NECK : Supple, no tenderness CHEST : Decreased breath sounds, occasional expiratory wheezes, no tenderness HEART : RRR, no obvious murmurs ABDOMEN: Some distention, nontender EXTREMITIES : Minimal LE swelling, no LE tenderness, no other conspicuous deformities noted NEUROLOGIC : Coherent, no facial asymmetry, rest tremors, gait and stance not assessed Principal Diagnosis Acute and chronic respiratory failure with hypercapnia: Acute on chronic hypoxic respiratory failure COVID-19 infection Acute bronchitis Dysphagia Hx chronic right-sided heart failure (EF 55 to 60%, TTE 2020) hx CAD status post stenting Hypertension hypothyroidism Essential tremors Ambulatory dysfunction Discharge Exam General- No acute distress Head- atraumatic Eyes- PERRL, EOMI, ENT- oropharynx clear Neck- supple, no JVD Lungs-+diminished breath sounds Heart- regular rhythm; no murmur Abdomen- normal bowel sounds, soft, nontender Extremities- no calf tenderness Neuro- alert, oriented x 3; PERRL, EOMI; no facial palsy; no dysarthria Skin- warm & dry Discharge Data Allergies Allergy/AdvReac Type Severity Reaction Status Date / Time grapefruit Allergy Unknown WAS TOLD Verified 11/28/21 03:20 NOT TO TAKE BECAUSE ONE OF THE PILLS I TAKE No Known Drug Allergies Allergy Unknown . Verified 11/28/21 03:20 tramadol AdvReac Mild Hallucinati Verified 11/28/21 09:12 ng Consultations 11/28/21 02:56 ED Decision to Admit Stat 11/28/21 06:21 Consult Pulmonology Routine Ordered Studies 11/28/21 01:14 CT angio chest PE protocol Urgent Laboratory Results WBC 11.56 K/ul (4.8-10.8) H 12/13/21 05:32 RBC 4.99 M/uL (4.63-6.08) 12/13/21 05:32 Hgb 15.5 g/dl (14.0-18.0) 12/13/21 05:32 Hct 45.0 % (40.1-51.0) 12/13/21 05:32 MCV 90.2 fL (80.0-100.0) 12/13/21 05:32 MCH 31.1 pg (25.0-34.0) 12/13/21 05:32 MCHC 34.4 g/dL (32.0-36.0) 12/13/21 05:32 RDW Std Deviation 52.0 fL (36.4-46.3) H 12/13/21 05:32 RDW Coeff of Mannie 15.7 % (11.5-14.5) H 12/13/21 05:32 Plt Count 117 K/uL (130-400) L 12/13/21 05:32 MPV 10.9 fL (9.4-12.4) 12/13/21 05:32 Immature Gran % (Auto) 2.9 % 12/06/21 07:19 Neut % (Auto) 75.9 % 12/06/21 07:19 Lymph % (Auto) 11.2 % 12/06/21 07:19 [place] % (Auto) 9.5 % 12/06/21 07:19 Eos % (Auto) 0.3 % 12/06/21 07:19 Baso % (Auto) 0.2 % 12/06/21 07:19 Neut # (Auto) 13.16 K/uL (1.4-6.5) H 12/06/21 07:19 Lymph # (Auto) 1.94 K/uL (1.2-3.4) 12/06/21 07:19 [place] # (Auto) 1.64 K/uL (0.24-0.82) H 12/06/21 07:19 Eos # (Auto) 0.06 K/uL (0-0.50) 12/06/21 07:19 Baso # (Auto) 0.04 K/uL (0-0.2) 12/06/21 07:19 Immature Gran # (Auto) 0.50 K/uL (0.00-0.02) H 12/06/21 07:19 PT 10.9 Seconds (9.0-12.0) 11/28/21 00:11 INR 1.0 (0.9-1.1) 11/28/21 00:11 APTT 89.1 Seconds (21.0-31.0) H* 11/28/21 08:13 PTT Ratio 3.2 11/28/21 08:13 D-Dimer 460 ug/L FEU (0-500) 11/28/21 08:13 D-Dimer Cancelled 11/28/21 08:13 ABG pH 7.40 (7.35-7.45) 11/28/21 09:50 ABG pCO2 40 mmHg (35-46) 11/28/21 09:50 ABG pO2 74 mmHg (80-95) L 11/28/21 09:50 ABG HCO3 25 mmol/L (19-24) H 11/28/21 09:50 ABG O2 Saturation 95.9 % (90-95) H 11/28/21 09:50 ABG Base Excess 0.0 mEq/L (-9-1.8) 11/28/21 09:50 Henry Test Pos (Pos) 11/28/21 09:50 VBG pH 7.38 (7.36-7.41) 11/28/21 00:21 VBG pCO2 58 mmHg (38-50) H 11/28/21 00:21 VBG pO2 44 mmHg 11/28/21 00:21 VBG HCO3 34 mmol/L 11/28/21 00:21 VBG O2 Saturation 69.7 % 11/28/21 00:21 VBG Base Excess 7.3 mEq/L 11/28/21 00:21 Oxygen Given 4L 11/28/21 09:50 Sodium 137 mmol/L (136-145) 12/13/21 05:32 Potassium 3.9 mmol/L (3.5-5.1) 12/13/21 05:32 Chloride 98 mmol/L (98-107) 12/13/21 05:32 Carbon Dioxide 35 mmol/L (21-32) H 12/13/21 05:32 Anion Gap 4 (3-11) 12/13/21 05:32 BUN 12 mg/dl (6-23) 12/13/21 05:32 Creatinine 0.85 mg/dl (0.6-1.4) 12/13/21 05:32 Est Cr Clr Drug Dosing 60.3 ml/min 12/13/21 05:32 Est GFR ( Amer) 95.4 ml/min 12/13/21 05:32 Est GFR (Non-Af Amer) 82.3 ml/min 12/13/21 05:32 BUN/Creatinine Ratio 14.1 (10-20) 12/13/21 05:32 Glucose 103 mg/dl (70-99(Fasting)) H 12/13/21 05:32 Calcium 9.2 mg/dl (8.5-10.1) 12/13/21 05:32 Magnesium 1.8 mg/dl (1.7-2.4) 11/28/21 00:11 Ferritin 153.3 ng/ml (8-388) 11/28/21 08:13 Total Bilirubin 0.5 mg/dl (0.2-1.0) 12/02/21 06:45 AST 28 U/L (13-39) 12/02/21 06:45 ALT 24 U/L (7-52) 12/02/21 06:45 Alkaline Phosphatase 65 U/L (34-104) 12/02/21 06:45 Troponin I High Sens 10.5 pg/ml (0-20) 11/28/21 00:11 C-Reactive Protein 1.55 mg/dl (0-0.5) H 11/28/21 08:13 B-Natriuretic Peptide 167 pg/ml (0-100) H 11/28/21 14:07 Total Protein 6.8 gm/dl (6.0-8.3) 12/02/21 06:45 Albumin 3.8 gm/dl (3.4-5.0) 12/02/21 06:45 Globulin 3.0 gm/dl (2.5-4.0) 12/02/21 06:45 Albumin/Globulin Ratio 1.3 (0.9-2) 12/02/21 06:45 TSH 0.484 uIu/ml (0.300-4.500) 11/29/21 14:34 Urine Color Yellow 11/28/21 01:19 Urine Appearance Clear (Clear) 11/28/21 01:19 Urine pH 6.0 (4.5-7.5) 11/28/21 01:19 Ur Specific [place] 1.011 (1.000-1.030) 11/28/21 01:19 Urine Protein Negative (Negative) 11/28/21 01:19 Urine Glucose (UA) Negative (Negative) 11/28/21 01:19 Urine Ketones Negative (Negative) 11/28/21 01:19 Urine Blood Trace (Negative) H 11/28/21 01:19 Urine Nitrite Negative (Negative) 11/28/21 01:19 Urine Bilirubin Negative (Negative) 11/28/21 01:19 Urine Urobilinogen Negative (Negative) 11/28/21 01:19 Ur Leukocyte Esterase Trace (Negative) H 11/28/21 01:19 Urine WBC (Auto) 1-5 /hpf (0-5) 11/28/21 01:19 Urine RBC (Auto) 0-4 /hpf (0-4) 11/28/21 01:19 U Hyaline Cast (Auto) 0 /lpf (0-5) 11/28/21 01:19 U Epithel Cells (Auto) 10-20 /lpf (0-5) H 11/28/21 01:19 Urine Bacteria (Auto) Negative (Negative) 11/28/21 01:19 SARS-CoV-2 (PCR) POSITIVE (Negative) A* 11/28/21 01:27 Influenza Type A (PCR) Negative (Neg) 11/28/21 01:27 Influenza Type B (PCR) Negative (Neg) 11/28/21 01:27 RSV (RT-PCR) Negative (Neg) 11/28/21 01:27 Impressions Chest CTA 11/28/21 01:14 CT ANGIOGRAPHY OF THE CHEST, PULMONARY EMBOLUS PROTOCOL CLINICAL HISTORY: Shortness of breath. Evaluate for pulmonary embolus. COMPARISON STUDY: Chest CT December 23, 2019. Chest radiograph November 28, 2021. TECHNIQUE: Following IV administration of 114 mL of Optiray, helical axial images of the chest were obtained utilizing the pulmonary embolus protocol. Maximal intensity projections and sagittal and coronal reformats were viewed on an independent 3D workstation. IV contrast was administered without complication. Automated exposure control was utilized for the study. A dose lowering technique was utilized adhering to the principles of ALARA. CT DOSE: 800.72 mGy.cm FINDINGS: This exam is moderately compromised by respiratory motion. No definite pulmonary emboli are identified. Apparent filling defects within segmental left upper lobe pulmonary arteries are likely artifactual. There is no pericardial effusion. No thoracic aortic dissection is noted. There is moderate coronary artery calcification. Size of the heart is within normal limits. No thoracic lymphadenopathy is present. Thoracolumbar spine scoliosis is incidentally noted. No consolidation is identified to suggest pneumonia. A calcified granuloma within the right lower lobe is noted. Subpleural opacities reflect atelectasis. There are no suspicious pulmonary nodules. There are calcified granulomas within the spleen. Gallstones are noted within the gallbladder. IMPRESSION: 1. No definite pulmonary emboli. Exam compromised by respiratory motion artifact. Apparent filling defects within segmental left upper lobe pulmonary arteries are likely artifactual. This finding will be called/faxed to ordering provider at time of dictation. 2. No consolidation to suggest pneumonia. 3. Thoracolumbar spine scoliosis. ACT 112: Negative or not required by law. Electronically signed by: Abimael Feldman M.D. 11/28/2021 9:48 AM Chest X-Ray 11/30/21 09:50 XR chest 1V portable HISTORY: ff up covid COMPARISON: Chest 11/28/2021. FINDINGS: No pneumothorax. No pleural effusions. There are low lung volumes with mild elevation the right hemidiaphragm, unchanged. Bibasilar densities also persist and favor atelectasis. The heart remains mildly enlarged. Ossified granuloma within the right lower lobe. S-shaped scoliosis of the thoracolumbar spine. IMPRESSION: No change in the low lung volumes and bibasilar linear densities. This favors subsegmental atelectasis. ACT 112: Negative or not required by law. Electronically signed by: Byron Collazo M.D. 11/30/2021 11:51 AM Hospital Course (1) Acute and chronic respiratory failure with hypercapnia: Acute on chronic hypoxic respiratory failure secondary to: COVID-19 infection Acute bronchitis Underlying COPD, restrictive lung disease/granulomatous lung disease, on 4 L of oxygen by nasal cannula at home, EZEQUIEL (CPAP intolerance), Sepsis, POA CT angiogram chest: No pulmonary embolism, no pneumonia Plan: Continue supplemental oxygen as needed. Titrate oxygen to maintain saturation above 88 to 90%. Status post 5 days of remdesivir completed on 12/02 Status post 10 days of dexamethasone on 12/08. Continue on doxycycline; completed on 12/05 Lasix decreased to 20mg once daily. Continue on albuterol and ipratropium inhalers. Pulmonology recommendation appreciated. -Continue flutter valve and incentive spirometry - Case discussed with infection control that ok to remove contact precaution today since pt did not get Tylenol and remains afebrile Dysphagia -- Follows with GI Soft diet Aspiration precautions Hx chronic right-sided heart failure (EF 55 to 60%, TTE 2020) --on Lasix 20 mg p.o. daily hx CAD status post stenting HTN, stable hypothyroidism, euthyroid as of recent outpatient TSH from August 2021 Essential tremors at baseline: Propanolol resumed Ambulatory dysfunction Continue PT/OT fall precaution Peer to peer reviewed done today with dr. Cruz that did not approve SNF case management was notified DVT prophylaxis. Heparin subcu Full code Disposition: Waiting for placement to [place] care Total Time Total Time Spent Total Time Spent (In Minutes): 35 minutes Discharge Plan Discharge Items Patient Disposition: Home - Home Health Services Reason For Visit: RESP FAILURE, COVID Discharge Diagnosis: Acute and chronic respiratory failure with hypercapnia: Acute on chronic hypoxic respiratory failure COVID-19 infection Acute bronchitis Dysphagia Hx chronic right-sided heart failure (EF 55 to 60%, TTE 2020) hx CAD status post stenting Hypertension hypothyroidism Essential tremors Ambulatory dysfunction Activity: Resume your previous activity Non-emergency contact: Primary Care Provider and Rn Acute Care Call non-emergency contact if: you have any medication questions and your symptoms worsen Follow-up/Referrals: Jennifer Sarkar MD [Primary Care Provider] - (Date & Time 12/21/2021 10:20 AM Provider Jennifer Sarkar MD Department General Internal Medicine [facility] ) Diet: Heart Healthy Diet Texture: Dental soft (bite-sized) Addtl Attending Provider Instructions: Follow up with your primary care provider 12/21/2021 @ 10:20 AM Jennifer Sarkar MD Department General Internal Medicine [facility] Continue physical and occupational therapy Continue oxygen supplement with 2 to 3 Liter nasal canula Continue incentive spirometry and flutter valve Fall precaution Continue soft diet Aspiration precaution Continue lasix 20mg daily. If you develop any sign of fluid overload such as difficulty to breath, you may take an additional tab of lasix and notify your provider Seek urgent medical attention if your symptoms shortness of breath worsening Continue to wear mask and practice social distance Home Isolation COVID-19 Instructions The following information about Home Isolation is from the CDC Website: https://www.cdc.gov/coronavirus/2019-ncov/hcp/xwppaunh-oxxqiys-wqazzx.html Stay home except to get medical care People who are mildly ill with COVID-19 are able to isolate at home during their illness. You should restrict activities outside your home, except for getting medical care. Do not go to work, school, or public areas. Avoid using public t ransportation, ride-sharing, or taxis. Separate yourself from other people and animals in your home People: As much as possible, you should stay in a specific room and away from other people in your home. Also, you should use a separate bathroom, if available. Animals: You should restrict contact with pets and other animals while you are sick with COVID-19, just like you would around other people. Although there have not been reports of pets or other animals becoming sick with COVID-19, it is still recommended that people sick with COVID-19 limit contact with animals until more information is known about the virus. When possible, have another member of your household care for your animals while you are sick. If you are sick with COVID-19, avoid contact with your pet, including petting, snuggling, being kissed or licked, and sharing food. If you must care for your pet or be around animals while you are sick, wash your hands before and after you interact with pets and wear a face mask. Call ahead before visiting your doctor If you have a medical appointment, call the healthcare provider and tell them that you have or may have COVID-19. This will help the healthcare providers office take steps to keep other people from getting infected or exposed. Wear a face mask You should wear a face mask when you are around other people (e.g., sharing a room or vehicle) or pets and before you enter a healthcare providers office. If you are not able to wear a face mask (for example, because it causes trouble breathing), then people who live with you should not stay in the same room with you, or they should wear a face mask if they enter your room. Cover your coughs and sneezes Cover your mouth and nose with a tissue when you cough or sneeze. Throw used tissues in a lined trash can. Immediately wash your hands with soap and water for at least 20 seconds or, if soap and water are not available, clean your hands with an alcohol-based hand polls or surveys interviewer that contains at least 60% alcohol. Clean your hands often Wash your hands often with soap and water for at least 20 seconds, especially after blowing your nose, coughing, or sneezing; going to the bathroom; and before eating or preparing food. If soap and water are not readily available, use an alcohol-based hand polls or surveys interviewer with at least 60% alcohol, covering all surfaces of your hands and rubbing them together until they feel dry. Soap and water are the best option if hands are visibly dirty. Avoid touching your eyes, nose, and mouth with unwashed hands. Avoid sharing personal household items You should not share dishes, drinking glasses, cups, eating utensils, towels, or bedding with other people or pets in your home. After using these items, they should be washed thoroughly with soap and water. Clean all high-touch surfaces everyday High touch surfaces include counters, tabletops, doorknobs, bathroom fixtures, toilets, phones, keyboards, tablets, and bedside tables. Also, clean any surfaces that may have blood, stool, or body fluids on them. Use a household cleaning spray or wipe, according to the label instructions. Labels contain instructions for safe and effective use of the cleaning product including precautions you should take when applying the product, such as wearing gloves and making sure you have good ventilation during use of the product. Monitor your symptoms Seek prompt medical attention if your illness is worsening (e.g., difficulty breathing).Beforeseeking care, call your healthcare provider and tell them that you have, or are being evaluated for, COVID-19. Put on a face mask before you enter the facility. These steps will help the healthcare providers office to keep other people in the office or waiting room from getting infected or exposed. Ask your healthcare provider to call the local or state health department. Persons who are placed under active monitoring or facilitated self- monitoring should follow instructions provided by their local health department or occupational health professionals, as appropriate. When working with your local health department check their available hours. If you have a medical emergency and need to call 911, notify the dispatch personnel that you have, or are being evaluated for COVID-19. If possible, put on a face mask before emergency medical services arrive. Discontinuing home isolation Patients with confirmed COVID-19 should remain under home isolation precautions until the risk of secondary transmission to others is thought to be low. The decision to discontinue home isolation precautions should be made on a eonr-kw-tyyh basis, in consultation with healthcare providers and state and local health departments. Coronavirus disease 2019 (COVID-19) is a virus that causes a respiratory illness. It is caused by a coronavirus called 2019 novel coronavirus (2019- nCoV). There are many types of coronavirus. Coronaviruses are a very common cause of bronchitis. They may sometimes cause lung infection(pneumonia). Symptoms can range from mild to severe respiratory illness. These viruses are also foundin some animals. COVID-19 was first found in people in [facility], in late 2019. In 2020, several cases of COVID-19 have been confirmed in the [place] Public health officials are working to find the source. How the virus spreads is not yet fully known. It may be spread through droplets of fluid that a person coughs or sneezes into the air. It may be spread if you touch a surface with virus on it, such as a handle or object, and then touch your mouth. What are the symptoms of COVID-19? Some people have no symptoms or mild symptoms. Symptoms may appear 2 to 14 days after contact with the virus. Symptoms can include: Fever Coughing Trouble breathing What are possible complications from COVID-19? In many cases, this virus can cause infection (pneumonia) in both lungs. In some cases, this can cause . How is COVID-19 diagnosed? Your healthcare provider will ask about your symptoms. He or she will also ask about your recent travel and contact with sick people. Testing for the virus is only done through the CDC. If yourhealthcare provider thinks you may have COVID- 19, he or she will work with your local health department and the CDC on testing. Follow all instructions from your healthcare provider. COVID-19 is diagnosed by: Nasal and throat swab. A cotton-tipped swab is wiped inside your nose or throat. This is done to check for viruses in your nasal mucus. Sputum culture. A small sample of mucus coughed from your lungs (sputum) is collected if you have a cough. It is checked for the virus. How is COVID-19 treated? There is currently no medicine to treat the virus. Treatment is done to help your body while it fights the virus. This is known as supportive care. Supportive care may include: Pain medicine. These include acetaminophen and ibuprofen. They are used to help ease pain and reduce fever. Bed rest. This helps your body fight the illness. For severe illness, you may need to stay in the hospital. Care during severe illness may include: IV (intravenous) fluids.These are given through a vein to help keep your body hydrated. Oxygen. Supplemental oxygen or ventilation with a breathing machine (ventilator) may be given. This is done to keep enough oxygen in your body. Are you at risk for COVID-19? If youve been to a place where people have been sick with this virus, you are at risk for infection. You are at risk if you: Recently traveled to an affected area Had contact with a sick person who recently traveled to this area Had contact with a person who was diagnosed with COVID-19 How can COVID-19 be prevented? There is no vaccine yet. The best prevention is to not have contact with the virus. The CDC advises that people should not travel to areas where there are COVID-19 outbreaks right now for any reason that is not urgent. To help prevent spreading the infection, wash your hands often, or use an alcohol-basedhand polls or surveys interviewer. If you are in an area with COVID-19: Wash your hands often. Or use an alcohol-based hand polls or surveys interviewer often. Only touch your eyes, nose, or mouth with clean hands. Dont have contact with people who are sick. Follow local instructions about being in public. For example, you may be told to not use public transport for a period of time. Stay away from markets that have live or animals. Wash your hands after touching any animals. Don't touch animals that may be sick. Dont share eating or drinking tools with sick people. Dont kiss someone who is sick. Clean surfaces often with disinfectant. If you were in an area with COVID-19 in the last 14 days: Call your healthcare provider. He or she can talk with local health staff to see what action may be needed. Follow all instructions from your provider. Take your temperature every morning and evening for at least 14 days. This is to check for fever. Keep a record of the readings. Keep watch for symptoms of the virus. Tell your provider right away if you have symptoms. If you were in an area with COVID-19 and have a fever or other symptoms: Dont panic. Keep in mind that other illnesses can cause similar symptoms. Stay away from work, school, and public places. Limit physical contact with family members. Don't kiss anyone or share eating or drinking utensils. Clean surfaces you touch with disinfectant. This is to help prevent the virus from spreading. Call your healthcare provider. Explain that you have been exposed to COVID-19 and have symptoms. Do this before going to any hospital. Wait for instructions. Keep in mind that healthcare staff may wear protective equipment such as masks, gowns, gloves, and eye protection. You may be put in a separate room. This is to prevent the possible virus from spreading. Tell the healthcare staff about recent travel. This includes local travel on public transport. Staff may need to find other people you have been in contact with. Follow all instructions the healthcare staff give you. If you have been diagnosed with COVID-19 Follow all instructions from your healthcare provider. Dont leave your home, except to get medical care. Call your healthcare providers office before going. They can prepare and give you instructions. This will help prevent the virus from spreading. Dont go to work, school, or public areas. Dont use public transport or taxis. Stay away from other people in your home. Have them wear face masks around you. Dont share household items or food. Wear a face mask if you can. This includes at home or in a medical facility. Cover your face with a tissue when you cough or sneeze. Throw the tissue away. Wash your hands. Wash your hands often. Caregivers should: Follow all instructions from healthcare staff. Wear a face mask and protective clothing as advised. Wash hands often. Keep track of the sick persons symptoms. Clean surfaces, fabrics, and laundry thoroughly. Keep other people away from the sick person. When to call your healthcare provider Call your healthcare provider: If youve recently traveled and have symptoms If you have been diagnosed with COVID-19 and your symptoms are worse To learn more To find out more about COVID-19, visit the CDC website at www.cdc.gov/coronavirus/2019-ncov/index.html. 9560-9099 [employer]. [address] [place], [place] [id number]. All rights reserved. This information is not intended as a substitute for professional medical care. Always follow your healthcare professional's instructions. This information has been adapted from [employer] Pending Studies at Discharge: No Stand-Alone Forms: My [facility] [email or web address], Smoking Cessation Medications and DC Order Prescriptions: New guaifenesin [Mucinex] 600 mg Tablet Extended Release 12hr 600 mg PO Q12 Qty: 30 0RF Anoro Ellipta 62.5-25 mcg/actuation Blister With Device 1 ea inhalation DAILY 30 Days Qty: 1 0RF sennosides-docusate sodium [Senokot-S] 8.6-50 mg Tablet 1 tab PO QAM PRN (Reason: constipation) Qty: 30 0RF Atrovent HFA 17 mcg/actuation Hfa Aerosol Inhaler 1 puff inhalation QIDR 30 Days Qty: 12.9 0RF albuterol sulfate [Ventolin HFA] 90 mcg/actuation Hfa Aerosol Inhaler 1 puff inhalation QIDR 30 Days Qty: 8.5 0RF Continued multivitamin Tablet 1 tab PO QAM citalopram 40 mg Tablet 40 mg PO QAM isosorbide mononitrate 30 mg Tablet Extended Release 24 Hr 30 mg PO QAM clopidogrel [Plavix] 75 mg Tablet 75 mg PO QAM nitroglycerin 0.4 mg Tablet, Sublingual 1 tab Sublingual UD PRN (Reason: Angina) Label Comments: NEVER HAD TO USE zoledronic rybe-nzykgbxb-viman [Reclast] 5 mg/100 mL Piggyback 1 dose IV YEARLY levothyroxine 100 mcg Capsule 100 mcg PO QAM Combivent Respimat 20-100 mcg/actuation Mist 1 puff INHALATION QID calcium carbonate-vitamin D3 [Calcium 600 + D(3)] 600 mg(1,500mg) -400 unit Tablet 1 tab PO QAM propranolol 20 mg tablet 20 mg PO TID Label Comments: FOR TREMOR acetaminophen 500 mg Tablet 500 mg PO Q6H PRN (Reason: Pain) benzonatate 100 mg capsule 100 mg PO TID PRN (Reason: Cough) pantoprazole 40 mg tablet,delayed release (DR/EC) 40 mg PO HS fluticasone propionate 50 mcg/actuation spray,suspension 2 spray INTRANASAL QAM rosuvastatin 5 mg tablet 5 mg PO QAM Jardiance 10 mg Tablet 10 mg PO QAM Changed furosemide 20 mg tablet 20 mg PO QAM Qty: 30 0RF Discharge Orders: Discharge Order (Routine); Ordered 12/15/21 Ordered By: Quita Gibson Admission Data Admit Date/Time: 11/28/21 04:03 Attending Provider: Quita Gibson Admit Provider: Mele Aguila Primary Care Provider: Jennifer Sarkar Other Providers: Mele Aguila ; Hernan Morales ; Daniele Loya ; Clarke Pérez ; Kassi Alvarez ; Ashley Alvarez ; [facility] ; [place],[facility] ; [facility] ; Evan Calix ; [facility] ; [facility] Other Interventions: Discharge Summary Assessment (RN) Last Done: 12/15/21 17:15
== END 2021-12-15 17:47 | disposition home health service (06) | DRG 871 ==
LOC: ED 23:49 → SUATTDRO 11-28 04:03 → 2S 11-28 04:03 → 2W 12-14 19:21

== ENCOUNTER 2023-01-02 18:34 | Observation (INO) ==
[2023-01-02 19:05] LABS: Basophils # (auto) 0.07 K/uL (0.00-0.20); Basophils % (auto) 0.4 %; Eosinophils # (auto) 0.41 K/uL (0.00-0.50); Eosinophils % (auto) 2.5 %; Hemoglobin 15.1 g/dl (14.0-18.0); Immature Granulocytes % (auto) 0.6 %; Lymphocytes # (auto) 2.25 K/uL (1.20-3.40); Lymphocytes % (auto) 13.8 %; Mean Corpuscular Hemoglobin 29.9 pg (25.0-34.0); Mean Corpuscular Hgb Conc 32.1 g/dL (32.0-36.0); Mean Corpuscular Volume 93.1 fL (80.0-100.0); Monocytes # (auto) 1.62 K/uL (0.11-0.59); Neutrophils # (auto) 11.83 K/uL (1.40-6.50); Neutrophils % (auto) 72.7 %; Platelet Count 172 K/uL (130-400); RDW Coefficient of Variation 14.6 % (11.5-14.5); RDW Standard Deviation 49.5 fL (36.4-46.3); Red Blood Count 5.05 M/uL (4.70-6.10); White Blood Count 16.28 K/ul (4.8-10.8)
[2023-01-02 19:35] LABS: Alanine Aminotransferase 12 U/L (7-52); Albumin Globulin Ratio 1.3 (0.9-2); Albumin Level 4.5 gm/dl (3.4-5.0); Alkaline Phosphatase 86 U/L (34-104); Anion Gap 7 (3-11); Aspartate Aminotransferase 23 U/L (13-39); BUN Creatinine Ratio 11.8 (10-20); Bilirubin,Total 0.8 mg/dl (0.2-1.0); Blood Urea Nitrogen 11 mg/dl (6-23); Calcium 10.5 mg/dl (8.6-10.3); Carbon Dioxide 33 mmol/L (21-32); Chloride 98 mmol/L (98-107); Est GFR (African American) 88.9 ml/min; Est GFR (Non-African American) 76.7 ml/min; Globulin 3.5 gm/dl (2.5-4.0); Glucose 95 mg/dl (70-99(Fasting)); Potassium 4.2 mmol/L (3.5-5.1); Sodium 138 mmol/L (136-145)
--- NOTE | 2023-01-02 20:26 | XRay Report ---
XR chest 1V not portable HISTORY: Dyspnea COMPARISON: Chest 12/14/2022. FINDINGS: No pneumothorax. There is persistent elevation of the right hemidiaphragm with bibasilar li near densities. This favors subsegmental atelectasis are scarring. No new focal lung consolidations t o suggest a pneumonia. No evidence for pulmonary edema. Scoliosis again noted. There are degenerative changes within the shoulders. A calcified granuloma within the right midlung zone again noted. IMPRESSION: 1. No significant change compared to the prior study. 2. Bibasilar linear densities persist and favor subsegmental atelectasis or scarring. 3. Severe S-shaped scoliosis ACT 112: Negative or not required by law. Electronically signed by: Byron Collazo M.D. 01/02/2023 8:24 PM
[2023-01-02 20:38] LABS: Appearance Urine Clear (Clear); Bacteria Urine Automated Negative (Negative); Bilirubin Urine Negative (Negative); Blood Urine Trace (Negative); Color Urine Yellow; Glucose Urine UA Negative (Negative); Ketones Urine Negative (Negative); Leukocyte Esterase Urine Negative (Negative); Nitrite Urine Negative (Negative); Protein Urine Negative (Negative); Specific Gravity Urine 1.012 (1.000-1.030); Urobilinogen Urine Negative (Negative); pH Urine 7.5 (4.5-7.5)
[2023-01-02 21:04] LABS: Troponin I High Sensitivity 9.1 pg/ml (0-20)
--- NOTE | 2023-01-02 21:09 | Emergency Department Note ---
Impression & Plan Generalized weakness, Ambulatory dysfunction, Leukocytosis ED Provider Note HISTORY OF PRESENT ILLNESS: Patient is an 82-year-old male presenting with right hip pain and low back pain after fall. Patient reports that he was taking his dog out into the yard when he tripped over his oxygen tubing and fell, landing on his right hip and low back. He denies striking his head or loss of consciousness. He is on Plavix. He states that his pain was too significant to get up so he was able to call 911. Patient reports that he has been feeling generally unwell for the last 24 hours, states that he is more weak than normal. He lives home alone. Denies any dysuria or hematuria. Denies any chest pain, shortness of breath or lightheadedness prior to the fall. He wears 3 L nasal cannula at baseline ROS: as above PHYSICAL EXAM: Constitutional: Patient appears in no acute distress. HENT: Head: Normocephalic and atraumatic. Eyes: EOMI, PERRL Mouth/Throat: Mucous membranes moist. Neck: Trachea midline. Neck supple. Cardiovascular: RRR, No murmurs, rubs or gallops. Intact distal pulses. Pulmonary/Chest: No respiratory distress. Breath sounds clear and equal bilaterally. No wheezes or rales. No chest wall tenderness to palpation. Abdominal: Abdomen soft, no tenderness, rebound or guarding. Back: No paraspinal tenderness, no CVA tenderness. Patient has lower lumbar midline tenderness to palpation Musculoskeletal: No edema, tenderness or deformity noted. Right hip is tender to palpation. No obvious ecchymosis, swelling or deformity to the proximal femur. Patient is unable to straight leg raise with either leg secondary to pain in the low back Skin: Warm and dry. No rash, erythema, pallor or cyanosis Psychiatric: Appropriate mood and affect for situation. Neurological: Alert and keenly responsive. CN II-XII grossly intact, moving all extremities equally and fully. MDM: - Vitals signs stable - History obtained via patient. Patient presents with right hip pain and low back pain. Patient reports he was walking his dog out in the yard when he went to turn and tripped over his oxygen tubing. States he landed on his right hip and buttock region. Denies striking his head or loss of consciousness. He is on Plavix daily. Denies any chest pain or shortness of breath prior to the fall. He states he lives alone. Reports in the last 24 hours he felt more weak than normal - Chronic conditions affecting care: COPD; hx of PE; CHF; HTN; HLD - Differential diagnoses include, but are not limited to: Pelvic fracture; femur fracture; UTI; pneumonia; ACS - Order placed for continuous cardiac monitoring. At this time, monitor showed rate of 71 bpm with normal sinus rhythm, per my interpretation. - External medical records reviewed. EMS run sheet was reviewed. Patient was vitally stable in route. No medications were given prehospital - EKG reviewed by myself showed normal sinus rhythm. Rate 68 bpm. QTc 412. No acute ischemic changes. Significant amount of artifact on the EKG. - Laboratory workup interpreted by myself showed leukocytosis (WBC 16.8) with left shift; stable electrolytes; normal BNP; normal troponin; normal procalcitonin - CXR negative for pneumonia, per my interpretation - UA negative for infection - CT pelvis and CT lumbar spine ordered. - Patient given 50 mcg IV fentanyl for pain control in ER. - Patient is significantly weak and unable to get up and ambulate in ER. Will admit for PT/OT assessment. - Discussion was had with progressive care manager about patient's case and need for admission - Hospitalist consulted for admission - Patient admitted to [facility] Hospitalist service for further evaluation and management. ASSESSMENT AND PLAN: Diagnosis: fall from standing; left hip pain; generalized weakness; ambulatory dysfunction Plan: admit Past Med/Surg History Medical History (Updated 01/02/23 @ 23:03 by Francie Sweeney MD) Acute and chronic respiratory failure Restrictive lung disease Acute on chronic respiratory failure with hypoxemia Acute and chronic respiratory failure with hypercapnia Pulmonary embolism COVID-19 Choking REASON FOR UPCOMING PROCEDURE PER PT Ankle swelling PT PLANS TO DISCUSS WITH PT REPORTS DR HAD HIM STOP FLUID PILL AND NOT SURE WHY Infected dental caries Subperiosteal abscess of jaw Acute periodontal abscess Pain, dental Generalized muscle weakness Lower urinary tract symptoms (LUTS) Hypoxia DVT prophylaxis Chronic right-sided heart failure Fall HX, NOT RECENTLY Cervical spine fracture LAST SUMMER NO LIMITATIONS SOB (shortness of breath) on exertion with wheezing Scoliosis Chronic back pain Kidney stones ONE PRESENT/NO PROBLEMS WITH GERD (gastroesophageal reflux disease) Hypothyroidism On anticoagulant therapy plavix daily Tinnitus of both ears Depression Familial tremor reason for propranolol Hypertension Hyperlipidemia Myocardial Infarction 2009 Sleep apnea uses 4 L N/C MOSTLY ALL THE TIME On home oxygen therapy 3-4 L CONTINUOUS MOSTLY, AND PRN PER PT Chronic obstructive pulmonary disease COPD (chronic obstructive pulmonary disease) Scoliosis Dyslipidemia HTN (hypertension) Hypothyroidism CAD (coronary artery disease) Surgical History Hx of oral surgery (07/05/21) Multiple Teeth Extractions for Facial Infection - Sin Chacko, DMD NO CURRENT INFECTION PER PT (PAT CALL 08/18/21) History of testicular surgery "sac full of blood in testicle drained at 26 yrs old" History of heart artery stent x1 2009--[facility] [place] History of open reduction and internal fixation (ORIF) procedure left foot fx/pinky toe fx--hardware in place History of lithotripsy Hx of vasectomy Hx of right inguinal hernia repair History of colonoscopy History of esophagogastroduodenoscopy (EGD) History of wisdom tooth extraction History of tonsillectomy History of bilateral cataract extraction History of cardiac cath 2009 @ [facility] [place] with 1 stent--follows with Dr. Ramirez Stented coronary artery "bare metal stent to LAD 2008" Family History Sister Family history of reaction to anesthesia nausea/vomiting Mother Family history of diabetes mellitus Social History Smoking Status: Never smoker Tobacco Type: Cigarettes Cigarettes Per Day: SMOKED PIPE/CIGAR AGE 21'S; Second Hand Exposure: No; Do You Dip or Chew Tobacco: No; Hx Alcohol Use: No Hx Substance Use: No Preferred Language: Panamanian Communication Ability: Effective Communication Tools: Other Visual Impairment: No Limitations Reel System Operator Required: No Beliefs That Will Affect Care: None marital status: Current Living Situation: Alone Current Living Situation Comment: DOG How many Children do You have: 1 Feels Safe at Home: Yes Assistive Devices: Cane and Oxygen - Continuous Allergies Allergies Allergy/AdvReac Type Severity Reaction Status Date / Time tramadol AdvReac Intermediate Hallucinati Verified 01/02/23 20:55 ng grapefruit AdvReac Unknown WAS TOLD Verified 01/02/23 20:55 NOT TO TAKE BECAUSE OF CHOLESTROL PILL. Home Meds Home Medications Medication Instructions Recorded Confirmed citalopram 40 mg tablet 20 mg PO QAM 03/14/18 01/02/23 clopidogrel 75 mg tablet (Plavix) 75 mg PO QAM 03/14/18 01/02/23 nitroglycerin 0.4 mg sublingual 1 tab sublingual UD PRN Angina 03/14/18 01/02/23 tablet acetaminophen 500 mg tablet 1,000 mg PO AMHS PRN Pain 07/03/21 01/02/23 rosuvastatin 5 mg tablet 5 mg PO QAM 07/03/21 01/02/23 albuterol sulfate 90 mcg/actuation 2 puff inhalation Q6H PRN 10/14/22 01/02/23 aerosol inhaler Shortness Of Breath Or Wheezing duloxetine 30 mg capsule,delayed 30 mg PO QPM Pain 10/14/22 01/02/23 release furosemide 20 mg tablet 40 mg PO QAM 10/14/22 01/02/23 meclizine 12.5 mg tablet 12.5 mg PO TID PRN Dizziness Or 10/14/22 01/02/23 Vertigo montelukast 10 mg tablet 10 mg PO QAM 10/14/22 01/02/23 (Singulair) pantoprazole 20 mg tablet,delayed 20 mg PO DAILYBB 10/14/22 01/02/23 release levothyroxine 112 mcg tablet 112 mcg PO DAILYBB 12/07/22 01/02/23 benzonatate 100 mg capsule 100 mg PO TID PRN Cough 01/02/23 01/02/23 ipratropium 20 mcg-albuterol 100 1 puff inhalation QID 01/02/23 01/02/23 mcg/actuation mist for inhalation sod chloride-sod 1 applic intranasal HS PRN NASAL 01/02/23 01/02/23 bicarb-hyaluronate sod-aloe 0.9 % DRYNESS nasal spray gel (Nasogel) Previous Rx's Medication Instructions Recorded propranolol 20 mg tablet 20 mg PO TID #90 tabs 11/13/22 Results & Data (ED) Vital Signs Vital Signs - 24 hr 01/02/23 18:41 01/02/23 23:04 01/02/23 23:05 Temperature 36.6 C Temperature Source Temporal Artery Scan Pulse Rate 71 Pulse Rate [Finger] Respiratory Rate 18 Respiratory Depth Normal Respiratory Pattern Regular Blood Pressure 123/84 Blood Pressure [Right Arm] Blood Pressure Mean 97 Blood Pressure Mean [Right Arm] Blood Pressure Position Sitting Pulse Oximetry 92 93 Oxygen Delivery Method Nasal Cannula Nasal Cannula Oxygen Flow Rate 3 2 Sepsis Recent Fever Within 48 Hours No Sepsis New/Unexplained Change in Mental Status N/A Sepsis Action Taken by Nursing No Action Required 01/02/23 23:30 Temperature Temperature Source Pulse Rate Pulse Rate [Finger] 69 Respiratory Rate 18 Respiratory Depth Respiratory Pattern Blood Pressure Blood Pressure [Right Arm] 131/83 Blood Pressure Mean Blood Pressure Mean [Right Arm] 99 Blood Pressure Position Pulse Oximetry 91 Oxygen Delivery Method Nasal Cannula Oxygen Flow Rate 3 Sepsis Recent Fever Within 48 Hours Sepsis New/Unexplained Change in Mental Status Sepsis Action Taken by Nursing Laboratory Data 01/02/23 18:53 01/02/23 18:53 Lab Results 01/02/23 01/02/23 Range/Units 18:53 20:23 WBC 16.28 H (4.8-10.8) K/ul RBC 5.05 (4.70-6.10) M/uL Hgb 15.1 (14.0-18.0) g/dl Hct 47.0 (42.0-52.0) % MCV 93.1 (80.0-100.0) fL MCH 29.9 (25.0-34.0) pg MCHC 32.1 (32.0-36.0) g/dL RDW Std Deviation 49.5 H (36.4-46.3) fL RDW Coeff of Mannie 14.6 H (11.5-14.5) % Plt Count 172 (130-400) K/uL MPV 10.0 (9.4-12.4) fL Immature Gran % (Auto) 0.6 % Neut % (Auto) 72.7 % Lymph % (Auto) 13.8 % [place] % (Auto) 10.0 % Eos % (Auto) 2.5 % Baso % (Auto) 0.4 % Neut # (Auto) 11.83 H (1.40-6.50) K/uL Lymph # (Auto) 2.25 (1.20-3.40) K/uL [place] # (Auto) 1.62 H (0.11-0.59) K/uL Eos # (Auto) 0.41 (0.00-0.50) K/uL Baso # (Auto) 0.07 (0.00-0.20) K/uL Immature Gran # (Auto) 0.10 (0.01-0.20) K/uL Sodium 138 (136-145) mmol/L Potassium 4.2 (3.5-5.1) mmol/L Chloride 98 (98-107) mmol/L Carbon Dioxide 33 H (21-32) mmol/L Anion Gap 7 (3-11) BUN 11 (6-23) mg/dl Creatinine 0.93 (0.6-1.4) mg/dl Est Cr Clr Drug Dosing Not Reportable Est GFR ( Amer) 88.9 ml/min Est GFR (Non-Af Amer) 76.7 ml/min BUN/Creatinine Ratio 11.8 (10-20) Glucose 95 (70-99(Fasting)) mg/dl Calcium 10.5 H (8.6-10.3) mg/dl Total Bilirubin 0.8 (0.2-1.0) mg/dl AST 23 (13-39) U/L ALT 12 (7-52) U/L Alkaline Phosphatase 86 (34-104) U/L Troponin I High Sens 9.1 (0-20) pg/ml B-Natriuretic Peptide 70 (0-100) pg/ml Total Protein 8.0 (6.0-8.3) gm/dl Albumin 4.5 (3.4-5.0) gm/dl Globulin 3.5 (2.5-4.0) gm/dl Albumin/Globulin Ratio 1.3 (0.9-2) Procalcitonin < 0.05 (0-0.5) ng/ml Urine Color Yellow Urine Appearance Clear (Clear) Urine pH 7.5 (4.5-7.5) Ur Specific [place] 1.012 (1.000-1.030) Urine Protein Negative (Negative) Urine Glucose (UA) Negative (Negative) Urine Ketones Negative (Negative) Urine Blood Trace H (Negative) Urine Nitrite Negative (Negative) Urine Bilirubin Negative (Negative) Urine Urobilinogen Negative (Negative) Ur Leukocyte Esterase Negative (Negative) Urine WBC (Auto) 1-5 (0-5) /hpf Urine RBC (Auto) 5-10 H (0-4) /hpf U Hyaline Cast (Auto) 1-5 (0-5) /lpf U Epithel Cells (Auto) 5-10 H (0-5) /lpf Urine Bacteria (Auto) Negative (Negative) Administered Medications Discontinued Medications Fentanyl Citrate (Fentanyl Citrate Pf 100 Mcg/2 Ml Vial) 50 mcg IV NOW STA Stop: 01/02/23 23:17 Last Admin: 01/02/23 23:29 Dose: 50 mcg Documented By: LEONOR Imaging Data Radiologist's Impression: Chest X-Ray 01/02/23 18:46 XR chest 1V not portable HISTORY: Dyspnea COMPARISON: Chest 12/14/2022. FINDINGS: No pneumothorax. There is persistent elevation of the right hemidiaphragm with bibasilar linear densities. This favors subsegmental atelectasis are scarring. No new focal lung consolidations to suggest a pneumonia. No evidence for pulmonary edema. Scoliosis again noted. There are degenerative changes within the shoulders. A calcified granuloma within the right midlung zone again noted. IMPRESSION: 1. No significant change compared to the prior study. 2. Bibasilar linear densities persist and favor subsegmental atelectasis or scarring. 3. Severe S-shaped scoliosis ACT 112: Negative or not required by law. Electronically signed by: Byron Collazo M.D. 01/02/2023 8:24 PM Discharge Plan Visit Data Chief Complaint: Shortness of Breath/Dyspnea Stated Complaint: FALL, SOB ED Provider: Francie Sweeney Discharge Problem: Generalized weakness, Ambulatory dysfunction, Leukocytosis Forms Stand Alone Forms: My [facility] [employer] Prescriptions Prescriptions: No Action citalopram 40 mg Tablet 20 mg PO QAM clopidogrel [Plavix] 75 mg Tablet 75 mg PO QAM nitroglycerin 0.4 mg Tablet, Sublingual 1 tab Sublingual UD PRN (Reason: Angina) Patient Comments: NEVER HAD TO USE Rx Instructions: NEEDED FOR CHEST PAIN : ONE TABLET UNDER THE TONGUE EVERY 5 MINUTES X THREE DOSES. acetaminophen 500 mg Tablet 1,000 mg PO AMHS PRN (Reason: Pain) Rx Instructions: MAY TAKE A THIRD DOSE IN BETWEEN rosuvastatin 5 mg tablet 5 mg PO QAM levothyroxine 112 mcg tablet 112 mcg PO DAILYBB benzonatate 100 mg capsule 100 mg PO TID PRN (Reason: Cough) Nasogel 0.9 % [place] Gel 1 applic INTRANASAL HS PRN (Reason: NASAL DRYNESS) ipratropium-albuterol 20-100 mcg/actuation Mist 1 puff INHALATION QID Rx Instructions: space evenly during waking hours albuterol sulfate 90 mcg/actuation HFA aerosol inhaler 2 puff INHALATION Q6H PRN (Reason: Shortness Of Breath Or Wheezing) montelukast [Singulair] 10 mg Tablet 10 mg PO QAM furosemide 20 mg tablet 40 mg PO QAM meclizine 12.5 mg tablet 12.5 mg PO TID PRN (Reason: Dizziness Or Vertigo) pantoprazole 20 mg tablet,delayed release (DR/EC) 20 mg PO DAILYBB duloxetine 30 mg capsule,delayed release(DR/EC) 30 mg PO QPM propranolol 20 mg Tablet 20 mg PO TID Qty: 90 0RF Referrals Referrals: Jennifer Sarkar MD [Primary Care Provider] -
[2023-01-02] MEDS ORDERED: fentaNYL citrate PF 100 MCG/2 ML VIAL IV STA (23:16)
--- NOTE | 2023-01-02 23:54 | CT Scan Report ---
Exam(s): CT L SPINE EXAM: CT Lumbar Spine Without Intravenous Contrast CLINICAL HISTORY: Reason for exam: low back pain s/p fall. TECHNIQUE: Axial computed tomography images of the lumbar spine without intravenous contrast. CTDI is 39.4 mGy and DLP is 1079.83 mGy-cm. Automated exposure control was utilized for the study. A dose lowering technique was utilized adhering to the principles of ALARA. COMPARISON: No relevant prior studies available. FINDINGS: Severe levoconvex scoliosis of the lumbar spine. The vertebral body heights are maintained. The lumbar lordosis is preserved. There is no spondylolisthesis. The posterior elements are maintained, without evidence of acute fracture. The pedicles are intact. Multilevel lumbar spondylosis and degenerative disc disease. Bilateral pars defects at L5. Atelectasis at the lung bases. Nonobstructing bilateral renal calculi. IMPRESSION: Severe levoconvex scoliosis of the lumbar spine. No lumbar spine fracture. Nonobstructing bilateral renal calculi. Electronically signed by: Mario Way MD 01/02/23 23:53 PM
--- NOTE | 2023-01-03 | CT Scan Report ---
Exam(s): CT PELVIS Without Contrast EXAM: CT Pelvis Without Intravenous Contrast CLINICAL HISTORY: Reason for exam: left hip pain s/p fall. TECHNIQUE: Axial computed tomography images of the pelvis without intravenous contrast. CTDI is 39.4 mGy and DLP is 913.12 mGy-cm. Automated exposure control was utilized for the study. A dose lowering technique was utilized adhering to the principles of ALARA. COMPARISON: No relevant prior studies available. FINDINGS: No femoral neck or intertrochanteric hip fracture. No pelvic fracture. Intact bilateral superior and inferior pubic rami. Degenerative changes of the bilateral hip joints, pubic symphysis, and sacroiliac joints. Diffuse osseous demineralization. Lumbar spondylosis and disc space narrowing. Intrapelvic contents are within normal limits for the patient's age. Nondisplaced fracture of the S4 vertebral body. IMPRESSION: No hip fracture. Nondisplaced fracture of the S4 vertebral body. Electronically signed by: Mario Way MD 01/02/23 23:58 PM
--- NOTE | 2023-01-03 01:13 | History & Physical Report ---
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 Ambulatory dysfunction Fall PT OT Patient was recently in the hospital with a fall and insurance declined SNF placement Social service to help with discharge planning Chronic respiratory failure with hypoxia on home oxygen Restrictive lung disease COPD Continue oxygen Home inhalers History of CAD s/p stent On Plavix, statin and beta-james Essential tremor On propranolol History of right-sided heart failure On Lasix We will monitor for volume overload Hyperlipidemia On statin GERD On Protonix Hypothyroidism On Synthroid Depression Duloxetine and citalopram History of Schatzki's of distal esophagus States it was stretched twice Monitor for dysphagia Had a video swallow last admission and was deemed high risk for aspiration Minced and moist diet with small portions, no straws. DVT prophylaxis Heparin subcu History of Present Illness Chief Complaint: Fall and ambulatory dysfunction Primary Care Provider: Jennifer Sarkar MD 82-year-old male with past medical significant for chronic respiratory failure with hypoxia on home oxygen, hypothyroidism, hyperlipidemia, history of hypercalcemia, congenital anomaly of lung, granulomatous lung disease, sleep apnea, restrictive lung disease, elevated hemidiaphragm, history of cad s/p stent hypertension, chronic right-sided heart failure, Schatzki's ring of the distal esophagus, idiopathic scoliosis, osteoporosis, essential tremor, depression, abnormality of gait presents from home with fall. Seems patient was taking his dog out in the yard when he tripped over his oxygen tubing and fell landing on the right hip and low back and also hit his right side of the head. No loss of consciousness. No head injury. Having severe pain in his tailbone region. His 2 neighbors helped him to get up. In the ER he was having ambulatory dysfunction. Denies any chest pain. Has cough. Currently denies any shortness of breath. Afebrile. No nausea. No headaches. Vision is okay. Normal bowel and bladder movements. Patient was recently in the hospital with a ambulatory dysfunction dysfunction and fall but insurance denied SNF placement. Past medical history. As mentioned above Past surgical history. Left heart catheterization. EGD. Colonoscopy. Lithotripsy. Bilateral hernia repair. Tonsillectomy. Cataract surgery. Social history. Lives alone. Quit cigar 1961. Alcohol rarely. No drug use. Family history. Mother has diabetes. Aunt has cancer. Allergies Allergy/AdvReac Type Severity Reaction Status Date / Time tramadol AdvReac Intermediate Hallucinati Verified 01/02/23 20:55 ng grapefruit AdvReac Unknown WAS TOLD Verified 01/02/23 20:55 NOT TO TAKE BECAUSE OF CHOLESTROL PILL. Home Medications Medication Instructions Recorded Confirmed Type citalopram 40 mg tablet 20 mg PO QAM 03/14/18 01/02/23 History clopidogrel 75 mg tablet (Plavix) 75 mg PO QAM 03/14/18 01/02/23 History nitroglycerin 0.4 mg sublingual 1 tab sublingual UD PRN Angina 03/14/18 01/02/23 History tablet acetaminophen 500 mg tablet 1,000 mg PO AMHS PRN Pain 07/03/21 01/02/23 History rosuvastatin 5 mg tablet 5 mg PO QAM 07/03/21 01/02/23 History albuterol sulfate 90 mcg/actuation 2 puff inhalation Q6H PRN 10/14/22 01/02/23 History aerosol inhaler Shortness Of Breath Or Wheezing duloxetine 30 mg capsule,delayed 30 mg PO QPM Pain 10/14/22 01/02/23 History release furosemide 20 mg tablet 40 mg PO QAM 10/14/22 01/02/23 History meclizine 12.5 mg tablet 12.5 mg PO TID PRN Dizziness Or 10/14/22 01/02/23 History Vertigo montelukast 10 mg tablet 10 mg PO QAM 10/14/22 01/02/23 History (Singulair) pantoprazole 20 mg tablet,delayed 20 mg PO DAILYBB 10/14/22 01/02/23 History release propranolol 20 mg tablet 20 mg PO TID #90 tabs 11/13/22 01/02/23 Rx levothyroxine 112 mcg tablet 112 mcg PO DAILYBB 12/07/22 01/02/23 History benzonatate 100 mg capsule 100 mg PO TID PRN Cough 01/02/23 01/02/23 History ipratropium 20 mcg-albuterol 100 1 puff inhalation QID 01/02/23 01/02/23 History mcg/actuation mist for inhalation sod chloride-sod 1 applic intranasal HS PRN NASAL 01/02/23 01/02/23 History bicarb-hyaluronate sod-aloe 0.9 % DRYNESS nasal spray gel (Nasogel) Past Med/Surg History Medical History (Updated 01/02/23 @ 23:03 by Francie Sweeney MD) Acute and chronic respiratory failure Restrictive lung disease Acute on chronic respiratory failure with hypoxemia Acute and chronic respiratory failure with hypercapnia Pulmonary embolism COVID-19 Choking REASON FOR UPCOMING PROCEDURE PER PT Ankle swelling PT PLANS TO DISCUSS WITH DR PT REPORTS DR HAD HIM STOP FLUID PILL AND NOT SURE WHY Infected dental caries Subperiosteal abscess of jaw Acute periodontal abscess Pain, dental Generalized muscle weakness Lower urinary tract symptoms (LUTS) Hypoxia DVT prophylaxis Chronic right-sided heart failure Fall HX, NOT RECENTLY Cervical spine fracture LAST SUMMER NO LIMITATIONS SOB (shortness of breath) on exertion with wheezing Scoliosis Chronic back pain Kidney stones ONE PRESENT/NO PROBLEMS WITH GERD (gastroesophageal reflux disease) Hypothyroidism On anticoagulant therapy plavix daily Tinnitus of both ears Depression Familial tremor reason for propranolol Hypertension Hyperlipidemia Myocardial Infarction 2009 Sleep apnea uses 4 L N/C MOSTLY ALL THE TIME On home oxygen therapy 3-4 L CONTINUOUS MOSTLY, AND PRN PER PT Chronic obstructive pulmonary disease COPD (chronic obstructive pulmonary disease) Scoliosis Dyslipidemia HTN (hypertension) Hypothyroidism CAD (coronary artery disease) Surgical History Hx of oral surgery (07/05/21) Multiple Teeth Extractions for Facial Infection - Sin Chacko DMD NO CURRENT INFECTION PER PT (PAT CALL 08/18/21) History of testicular surgery "sac full of blood in testicle drained at 26 yrs old" History of heart artery stent x1 2009--[facility] [place] History of open reduction and internal fixation (ORIF) procedure left foot fx/pinky toe fx--hardware in place History of lithotripsy Hx of vasectomy Hx of right inguinal hernia repair History of colonoscopy History of esophagogastroduodenoscopy (EGD) History of wisdom tooth extraction History of tonsillectomy History of bilateral cataract extraction History of cardiac cath 2009 @ [facility] [place] with 1 stent--follows with Dr. James Stented coronary artery "bare metal stent to LAD 2008" Family History Sister Family history of reaction to anesthesia nausea/vomiting Mother Family history of diabetes mellitus Social History Smoking Status: Never smoker Tobacco Type: Cigarettes Cigarettes Per Day: SMOKED PIPE/CIGAR AGE 21'S; Second Hand Exposure: No; Do You Dip or Chew Tobacco: No; Hx Alcohol Use: No Hx Substance Use: No Preferred Language: Kiswahili Communication Ability: Effective Communication Tools: Other Visual Impairment: No Limitations Business Intelligence Developer Required: No Beliefs That Will Affect Care: None marital status: Current Living Situation: Alone Current Living Situation Comment: DOG How many Children do You have: 1 Other Information That Helps Us Care for You: No Feels Safe at Home: Yes Safety Concerns: Feels Safe At This Time Assistive Devices: Cane, Glasses, Oxygen - Continuous and Walker Review of Systems Review of Systems: All systems reviewed & are unremarkable except as noted in HPI & below Physical Exam Physical Exam: General- Not in distress Head- atraumatic Eyes- PERRL. ENT- oropharynx clear Neck- supple, no JVD. Lungs- clear to auscultation no wheezing or crackles. Heart- regular rhythm; no murmur, no gallop. Abdomen- normal bowel sounds, soft, nontender, no distension. Extremities- b/l lower extremity =1 edema present. No erythema seen. Neuro- alert, oriented x 3; PERRL, no facial palsy; no dysarthria; moves extremities. Skin- warm & dry Results & Data Results & Data Vital Signs (Past 12 Hours) Vital Signs Temp Pulse Pulse Resp BP BP Pulse Ox 01/02/23 23:43 67 01/02/23 23:30 69 18 131/83 91 01/02/23 23:04 93 01/02/23 18:41 36.6 C 71 18 123/84 92 O2 Del Method O2 Flow Rate 01/02/23 23:43 01/02/23 23:30 Nasal Cannula 3 01/02/23 23:04 Nasal Cannula 2 01/02/23 18:41 Nasal Cannula 3 Diagnostic Findings Laboratory Results WBC 16.28 K/ul (4.8-10.8) H 01/02/23 18:53 RBC 5.05 M/uL (4.70-6.10) 01/02/23 18:53 Hgb 15.1 g/dl (14.0-18.0) 01/02/23 18:53 Hct 47.0 % (42.0-52.0) 01/02/23 18:53 MCV 93.1 fL (80.0-100.0) 01/02/23 18:53 MCH 29.9 pg (25.0-34.0) 01/02/23 18:53 MCHC 32.1 g/dL (32.0-36.0) 01/02/23 18:53 RDW Std Deviation 49.5 fL (36.4-46.3) H 01/02/23 18:53 RDW Coeff of Mannie 14.6 % (11.5-14.5) H 01/02/23 18:53 Plt Count 172 K/uL (130-400) 01/02/23 18:53 MPV 10.0 fL (9.4-12.4) 01/02/23 18:53 Immature Gran % (Auto) 0.6 % 01/02/23 18:53 Neut % (Auto) 72.7 % 01/02/23 18:53 Lymph % (Auto) 13.8 % 01/02/23 18:53 [place] % (Auto) 10.0 % 01/02/23 18:53 Eos % (Auto) 2.5 % 01/02/23 18:53 Baso % (Auto) 0.4 % 01/02/23 18:53 Neut # (Auto) 11.83 K/uL (1.40-6.50) H 01/02/23 18:53 Lymph # (Auto) 2.25 K/uL (1.20-3.40) 01/02/23 18:53 [place] # (Auto) 1.62 K/uL (0.11-0.59) H 01/02/23 18:53 Eos # (Auto) 0.41 K/uL (0.00-0.50) 01/02/23 18:53 Baso # (Auto) 0.07 K/uL (0.00-0.20) 01/02/23 18:53 Immature Gran # (Auto) 0.10 K/uL (0.01-0.20) 01/02/23 18:53 Sodium 138 mmol/L (136-145) 01/02/23 18:53 Potassium 4.2 mmol/L (3.5-5.1) 01/02/23 18:53 Chloride 98 mmol/L (98-107) 01/02/23 18:53 Carbon Dioxide 33 mmol/L (21-32) H 01/02/23 18:53 Anion Gap 7 (3-11) 01/02/23 18:53 BUN 11 mg/dl (6-23) 01/02/23 18:53 Creatinine 0.93 mg/dl (0.6-1.4) 01/02/23 18:53 Est Cr Clr Drug Dosing Not Reportable 01/02/23 18:53 Est GFR ( Amer) 88.9 ml/min 01/02/23 18:53 Est GFR (Non-Af Amer) 76.7 ml/min 01/02/23 18:53 BUN/Creatinine Ratio 11.8 (10-20) 01/02/23 18:53 Glucose 95 mg/dl (70-99(Fasting)) 01/02/23 18:53 Calcium 10.5 mg/dl (8.6-10.3) H 01/02/23 18:53 Total Bilirubin 0.8 mg/dl (0.2-1.0) 01/02/23 18:53 AST 23 U/L (13-39) 01/02/23 18:53 ALT 12 U/L (7-52) 01/02/23 18:53 Alkaline Phosphatase 86 U/L (34-104) 01/02/23 18:53 Troponin I High Sens 9.1 pg/ml (0-20) 01/02/23 18:53 B-Natriuretic Peptide 70 pg/ml (0-100) 01/02/23 18:53 Total Protein 8.0 gm/dl (6.0-8.3) 01/02/23 18:53 Albumin 4.5 gm/dl (3.4-5.0) 01/02/23 18:53 Globulin 3.5 gm/dl (2.5-4.0) 01/02/23 18:53 Albumin/Globulin Ratio 1.3 (0.9-2) 01/02/23 18:53 Procalcitonin < 0.05 ng/ml (0-0.5) 01/02/23 18:53 Urine Color Yellow 01/02/23 20: Urine Appearance Clear (Clear) 01/02/23 20: Urine pH 7.5 (4.5-7.5) 01/02/23 20:23 Ur Specific [place] 1.012 (1.000-1.030) 01/02/23 20:23 Urine Protein Negative (Negative) 01/02/23 20: Urine Glucose (UA) Negative (Negative) 01/02/23 20: Urine Ketones Negative (Negative) 01/02/23 20: Urine Blood Trace (Negative) H 01/02/23 20: Urine Nitrite Negative (Negative) 01/02/23 20: Urine Bilirubin Negative (Negative) 01/02/23 20: Urine Urobilinogen Negative (Negative) 01/02/23 20: Ur Leukocyte Esterase Negative (Negative) 01/02/23 20:23 Urine WBC (Auto) 1-5 /hpf (0-5) 01/02/23 20:23 Urine RBC (Auto) 5-10 /hpf (0-4) H 01/02/23 20: U Hyaline Cast (Auto) 1-5 /lpf (0-5) 01/02/23 20: U Epithel Cells (Auto) 5-10 /lpf (0-5) H 01/02/23 20:23 Urine Bacteria (Auto) Negative (Negative) 01/02/23 20:23 Impressions Chest X-Ray 01/02/23 18:46 XR chest 1V not portable HISTORY: Dyspnea COMPARISON: Chest 12/14/2022. FINDINGS: No pneumothorax. There is persistent elevation of the right h emidiaphragm with bibasilar linear densities. This favors subsegmental atelectasis are scarring. No new focal lung consolidations to suggest a pneumonia. No evidence for pulmonary edema. Scoliosis again noted. There are degenerative changes within the shoulders. A calcified granuloma within the right midlung zone again noted. IMPRESSION: 1. No significant change compared to the prior study. 2. Bibasilar linear densities persist and favor subsegmental atelectasis or scarring. 3. Severe S-shaped scoliosis ACT 112: Negative or not required by law. Electronically signed by: Byron Collazo M.D. 01/02/2023 8:[address] 01/02/23 21:06 Exam(s): CT L SPINE EXAM: CT Lumbar Spine Without Intravenous Contrast CLINICAL HISTORY: Reason for exam: low back pain s/p fall. TECHNIQUE: Axial computed tomography images of the lumbar spine without intravenous contrast. CTDI is 39.4 mGy and DLP is 1079.83 mGy-cm. Automated exposure control was utilized for the study. A dose lowering technique was utilized adhering to the principles of ALARA. COMPARISON: No relevant prior studies available. FINDINGS: Severe levoconvex scoliosis of the lumbar spine. The vertebral body heights are maintained. The lumbar lordosis is preserved. There is no spondylolisthesis. The posterior elements are maintained, without evidence of acute fracture. The pedicles are intact. Multilevel lumbar spondylosis and degenerative disc disease. Bilateral pars defects at L5. Atelectasis at the lung bases. Nonobstructing bilateral renal calculi. IMPRESSION: Severe levoconvex scoliosis of the lumbar spine. No lumbar spine fracture. Nonobstructing bilateral renal calculi. Electronically signed by: Mario Way MD 01/02/23 23:[address] 01/02/23 21:06 Exam(s): CT PELVIS Without Contrast EXAM: CT Pelvis Without Intravenous Contrast CLINICAL HISTORY: Reason for exam: left hip pain s/p fall. TECHNIQUE: Axial computed tomography images of the pelvis without intravenous contrast. CTDI is 39.4 mGy and DLP is 913.12 mGy-cm. Automated exposure control was utilized for the study. A dose lowering technique was utilized adhering to the principles of ALARA. COMPARISON: No relevant prior studies available. FINDINGS: No femoral neck or intertrochanteric hip fracture. No pelvic fracture. Intact bilateral superior and inferior pubic rami. Degenerative changes of the bilateral hip joints, pubic symphysis, and sacroiliac joints. Diffuse osseous demineralization. Lumbar spondylosis and disc space narrowing. Intrapelvic contents are within normal limits for the patient's age. Nondisplaced fracture of the S4 vertebral body. IMPRESSION: No hip fracture. Nondisplaced fracture of the S4 vertebral body. Electronically signed by: Mario Way MD 01/02/23 23:58 PM ECG Additional Comments: ECG. Normal sinus rhythm with rate of 68. Poor quality. Code Status & VTE Plan VTE Prophylaxis Plan VTE Prophylaxis will be ordered: Yes
[2023-01-03] MEDS ORDERED: oxyCODONE HCL IR 5 MG TAB (IMMEDIATE RELEASE) PO STA (02:25)
[2023-01-03] MEDS ORDERED: NITROGLYCERIN SL 0.4 MG/TAB TAB SL PRN (06:47)
[2023-01-03] MEDS ORDERED: ACETAMINOPHEN 325 MG TAB PO PRN (06:47)
[2023-01-03] MEDS ORDERED: BENZONATATE 100 MG CAPSULE PO PRN (06:47)
[2023-01-03] MEDS ORDERED: ALBUTEROL HFA 8 GM INHALER INH PRN (06:47)
[2023-01-03] MEDS ORDERED: MECLIZINE 12.5 MG TAB PO PRN (06:47)
[2023-01-03] MEDS ORDERED: POLYETHYLENE (MIRALAX) 17 GM PACK PO PRN (06:47)
[2023-01-03] MEDS ORDERED: SODIUM CHLORIDE 0.65% NA SOLN 45 ML (OCEAN) PRN (07:08)
[2023-01-03] MEDS ORDERED: PANTOprazole 40 MG TAB PO SCH (07:30)
[2023-01-03 08:18] LABS: Basophils # (auto) 0.04 K/uL (0.00-0.20); Basophils % (auto) 0.4 %; Eosinophils % (auto) 2.8 %; Hematocrit (blood only) 41.2 % (42.0-52.0); Hemoglobin 13.3 g/dl (14.0-18.0); Immature Granulocytes # (auto) 0.08 K/uL (0.01-0.20); Immature Granulocytes % (auto) 0.7 %; Lymphocytes # (auto) 2.38 K/uL (1.20-3.40); Lymphocytes % (auto) 22.1 %; Mean Corpuscular Hemoglobin 30.2 pg (25.0-34.0); Mean Corpuscular Hgb Conc 32.3 g/dL (32.0-36.0); Mean Corpuscular Volume 93.6 fL (80.0-100.0); Mean Platelet Volume 10.2 fL (9.4-12.4); Monocytes # (auto) 1.56 K/uL (0.11-0.59); Monocytes % (auto) 14.5 %; Neutrophils # (auto) 6.39 K/uL (1.40-6.50); Neutrophils % (auto) 59.5 %; Platelet Count 139 K/uL (130-400); RDW Coefficient of Variation 14.6 % (11.5-14.5); RDW Standard Deviation 50.3 fL (36.4-46.3); White Blood Count 10.75 K/ul (4.8-10.8)
--- NOTE | 2023-01-03 08:34 | Electrocardiogram Report ---
Test Reason : Blood Pressure : / mmHG Vent. Rate : 068 BPM Atrial Rate : 068 BPM P-R Int : 178 ms QRS Dur : 074 ms QT Int : 388 ms P-R-T Axes : 104 037 051 degrees QTc Int : 412 ms Normal sinus rhythm Possible Old Septal infarct (cited on or before 08-DEC-2022) Abnormal ECG When compared with ECG of 08-DEC-2022 02:41, No significant change Confirmed by Uriah Hurtado ([id number]) on 01/03/2023 8:34:28 AM Referred By: REFERRED SELF Confirmed By:Uriah Hurtado
[2023-01-03] MEDS: LEVOTHYROXINE SODIUM 112 MCG TABLET PO SCH (08:41)
[2023-01-03 08:43] LABS: BUN Creatinine Ratio 11.8 (10-20); Calcium 9.3 mg/dl (8.6-10.3); Creatinine Clr Calc Pharmacy 59.3 ml/min; Est GFR (African American) 94.7 ml/min; Est GFR (Non-African American) 81.7 ml/min; Magnesium 1.9 mg/dl (1.7-2.4); Potassium 3.5 mmol/L (3.5-5.1)
[2023-01-03] MEDS ORDERED: IPRATROPIUM BROMIDE/ALBUTEROL respimat INH INH SCH (09:00)
[2023-01-03] MEDS: CITALOPRAM 20 MG TAB PO SCH (09:03)
[2023-01-03] MEDS: ROSUVASTATIN CALCIUM 5 MG TAB PO SCH (09:03)
[2023-01-03] MEDS: CLOPIDOGREL BISULFATE 75 MG TAB PO SCH (09:03)
[2023-01-03] MEDS: PANTOprazole 40 MG TAB PO SCH (09:03)
[2023-01-03] MEDS: MONTELUKAST SODIUM 10 MG TABLET PO SCH (09:03)
[2023-01-03] MEDS: PROPRANOLOL HCL 20 MG TAB PO SCH ×3 (09:04→20:59)
[2023-01-03] MEDS: FUROSEMIDE 40 MG TAB PO SCH (09:04)
[2023-01-03] MEDS: HEPARIN SOD 5,000 UNIT/0.5 ML VIAL SQ SCH ×3 (09:04→20:59)
[2023-01-03] MEDS: ACETAMINOPHEN 325 MG TAB PO SCH ×3 (09:08→21:00)
[2023-01-03] MEDS: LIDOCAINE 5% 1 PATCH TD SCH (09:56)
[2023-01-03] MEDS: Ipratropium HFA Inhaler (Combivent Respimat P&T Subs) INH SCH ×3 (11:16→19:35)
[2023-01-03] MEDS: Albuterol HFA 8 GM Inhaler (Combivent Respimat P&T Subs) INH SCH ×3 (11:16→19:34)
--- NOTE | 2023-01-03 12:23 | Orthopedic Consultation ---
Date of Consultation January 03, 2023 Assessment & Plan (1) Ambulatory dysfunction: Patient has severe scoliosis and evidence of spinal stenosis and pars defect at the L4-5 L5-S1 level. He does not describe any gross neurogenic claudication. Nevertheless I am sure this is contributing to some of his leg weakness,. This is combined with generalized deconditioning and of course the sacral fracture. He is not a surgical candidate. He clearly would benefit from a stay in rehab. History of Present Illness Reason for Consultation: Back pain and weakness with ambulation Attending Physician: Evan Calix MD History of Present Illness This is a very pleasant 82-year-old male who presents with predominantly sacral discomfort after trying to sit at home. In doing so he instead landing on the seat of the chair he sat on the arm of the chair and now has a sacral fracture. This morning he denies any radicular pain or pain down his legs he states he gets occasional discomfort on the legs but not limiting nature. He does note generalized weakness with ambulation. Allergies Allergy/AdvReac Type Severity Reaction Status Date / Time tramadol AdvReac Intermediate Hallucinati Verified 01/02/23 20:55 ng grapefruit AdvReac Unknown WAS TOLD Verified 01/02/23 20:55 NOT TO TAKE BECAUSE OF CHOLESTROL PILL. Home Medications Medication Instructions Recorded Confirmed Type citalopram 40 mg tablet 20 mg PO QAM 03/14/18 01/02/23 History clopidogrel 75 mg tablet (Plavix) 75 mg PO QAM 03/14/18 01/02/23 History nitroglycerin 0.4 mg sublingual 1 tab sublingual UD PRN Angina 03/14/18 01/02/23 History tablet acetaminophen 500 mg tablet 1,000 mg PO AMHS PRN Pain 07/03/21 01/02/23 History rosuvastatin 5 mg tablet 5 mg PO QAM 07/03/21 01/02/23 History albuterol sulfate 90 mcg/actuation 2 puff inhalation Q6H PRN 10/14/22 01/02/23 History aerosol inhaler Shortness Of Breath Or Wheezing duloxetine 30 mg capsule,delayed 30 mg PO QPM Pain 10/14/22 01/02/23 History release furosemide 20 mg tablet 40 mg PO QAM 10/14/22 01/02/23 History meclizine 12.5 mg tablet 12.5 mg PO TID PRN Dizziness Or 10/14/22 01/02/23 History Vertigo montelukast 10 mg tablet 10 mg PO QAM 10/14/22 01/02/23 History (Singulair) pantoprazole 20 mg tablet,delayed 20 mg PO DAILYBB 10/14/22 01/02/23 History release propranolol 20 mg tablet 20 mg PO TID #90 tabs 11/13/22 01/02/23 Rx levothyroxine 112 mcg tablet 112 mcg PO DAILYBB 12/07/22 01/02/23 History benzonatate 100 mg capsule 100 mg PO TID PRN Cough 01/02/23 01/02/23 History ipratropium 20 mcg-albuterol 100 1 puff inhalation QID 01/02/23 01/02/23 History mcg/actuation mist for inhalation sod chloride-sod 1 applic intranasal HS PRN NASAL 01/02/23 01/02/23 History bicarb-hyaluronate sod-aloe 0.9 % DRYNESS nasal spray gel (Nasogel) Patient History Medical History (Updated 01/02/23 @ 23:03 by Francie Sweeney MD) Acute and chronic respiratory failure Restrictive lung disease Acute on chronic respiratory failure with hypoxemia Acute and chronic respiratory failure with hypercapnia Pulmonary embolism COVID-19 Choking REASON FOR UPCOMING PROCEDURE PER PT Ankle swelling PT PLANS TO DISCUSS WITH PT REPORTS DR HAD HIM STOP FLUID PILL AND NOT SURE WHY Infected dental caries Subperiosteal abscess of jaw Acute periodontal abscess Pain, dental Generalized muscle weakness Lower urinary tract symptoms (LUTS) Hypoxia DVT prophylaxis Chronic right-sided heart failure Fall HX, NOT RECENTLY Cervical spine fracture LAST SUMMER NO LIMITATIONS SOB (shortness of breath) on exertion with wheezing Scoliosis Chronic back pain Kidney stones ONE PRESENT/NO PROBLEMS WITH GERD (gastroesophageal reflux disease) Hypothyroidism On anticoagulant therapy plavix daily Tinnitus of both ears Depression Familial tremor reason for propranolol Hypertension Hyperlipidemia Myocardial Infarction 2009 Sleep apnea uses 4 L N/C MOSTLY ALL THE TIME On home oxygen therapy 3-4 L CONTINUOUS MOSTLY, AND PRN PER PT Chronic obstructive pulmonary disease COPD (chronic obstructive pulmonary disease) Scoliosis Dyslipidemia HTN (hypertension) Hypothyroidism CAD (coronary artery disease) Surgical History Hx of oral surgery (07/05/21) Multiple Teeth Extractions for Facial Infection - Sin R Chacko, DMD NO CURRENT INFECTION PER PT (PAT CALL 08/18/21) History of testicular surgery "sac full of blood in testicle drained at 26 yrs old" History of heart artery stent x1 2009--[facility] [place] History of open reduction and internal fixation (ORIF) procedure left foot fx/pinky toe fx--hardware in place History of lithotripsy Hx of vasectomy Hx of right inguinal hernia repair History of colonoscopy History of esophagogastroduodenoscopy (EGD) History of wisdom tooth extraction History of tonsillectomy History of bilateral cataract extraction History of cardiac cath [address] [facility] [place] with 1 stent--follows with Dr. Ramirez Stented coronary artery "bare metal stent to LAD 2008" Family History Sister Family history of reaction to anesthesia nausea/vomiting Mother Family history of diabetes mellitus Social History Smoking Status: Never smoker Tobacco Type: Cigarettes Cigarettes Per Day: SMOKED PIPE/CIGAR AGE 21'S; Second Hand Exposure: No; Do You Dip or Chew Tobacco: No; Hx Alcohol Use: No Hx Substance Use: No Preferred Language: Swedish Communication Ability: Effective Communication Tools: Other Visual Impairment: No Limitations Real Estate Valuer Required: No Beliefs That Will Affect Care: None marital status: Current Living Situation: Alone Current Living Situation Comment: DOG How many Children do You have: 1 Other Information That Helps Us Care for You: No Feels Safe at Home: Yes Safety Concerns: Feels Safe At This Time Assistive Devices: Cane, Glasses, Oxygen - Continuous and Walker Physical Exam Physical Exam: On exam is in the chair at the bedside. Is cooperative. Demonstrates reasonable plantarflexion dorsiflexion quadriceps. Sensory is symmetric and intact. Results & Data Vital Signs (Past 12 Hours) Vital Signs Temp Pulse Pulse Pulse Resp BP BP 01/03/23 11:35 36.9 C 79 18 121/78 01/03/23 11:16 58 L 18 01/03/23 07:36 36.4 C L 63 18 115/73 01/03/23 07:35 01/03/23 05:10 01/03/23 05:10 36.6 C 69 20 107/72 01/03/23 05:04 76 01/03/23 03:53 77 01/03/23 01:30 67 22 120/78 Pulse Ox O2 Del Method O2 Flow Rate 01/03/23 11:35 92 Nasal Cannula 3 01/03/23 11:16 94 Nasal Cannula 3 01/03/23 07:36 92 Nasal Cannula 3 01/03/23 07:35 Nasal Cannula 4 01/03/23 05:10 Nasal Cannula 4 01/03/23 05:10 4 L Nasal Cannula 4 01/03/23 05:04 01/03/23 03:53 01/03/23 01:30 92 Nasal Cannula 4
--- NOTE | 2023-01-03 13:30 | Hospitalist Progress Note ---
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 Ambulatory dysfunction Mechanical fall S4 vertebral fracture Patient presented from home after mechanical fall. Lumbar CT personally reviewed; no acute finding Pelvic CT personally reviewed shows nondisplaced fracture of S4 vertebral body Pain control with lidocaine patch, Tylenol and oxycodone Orthospine recommends rehab Consult orthotics for brace PT OT evaluation Chronic respiratory failure with hypoxia on home oxygen Restrictive lung disease COPD Continue oxygen Home inhalers History of CAD s/p stent On Plavix, statin and beta-james Essential tremor On propranolol History of right-sided heart failure On Lasix We will monitor for volume overload Hyperlipidemia On statin GERD On Protonix Hypothyroidism On Synthroid Depression Duloxetine and citalopram History of Schatzki's of distal esophagus States it was stretched twice Monitor for dysphagia Had a video swallow last admission and was deemed high risk for aspiration Minced and moist diet with small portions, no straws. DVT prophylaxis Heparin subcu Time spent evaluating patient, direct bedside care, chart review, placing orders, interpretation of diagnostic studies, discussion with consultants, patient, and family members, as well as other required patient management activities is 60 minutes Please note the above document was generated using voice recognition software. It may contain grammatical, syntax or spelling errors. Any formal questions or concerns about the content, text or information contained within the body of this dictation should be directly addressed to the provider for clarification Admission and Anticipated Discharge Date Admission Date: January 03, 2023 Subjective Patient reports severe lower back pain on any movement. Denies any bilateral extremity weakness. Oxygen requirement has baseline. No other complaints. Review of Systems Review of Systems: All systems reviewed & are unremarkable except as noted in Subjective Physical Exam Physical Exam: Gen: Awake alert oriented x3; bilateral upper extremity tremors HEENT: Normocephalic, atraumatic, conjunctivae moist, sclerae anicteric, mucous membranes moist Lung: Clear to Auscultation bilaterally, intermittent cough Heart: Regular rate, regular rhythm, no murmurs, rubs, or gallops Abdomen: Soft, NT, ND +BS x 4 MSKtenderness in lower back. Extremities: no edema Skin: Warm, no rash Results & Data Results & Data Vital Signs (Past 12 Hours) Vital Signs Temp Pulse Pulse Pulse Resp BP BP 01/03/23 11:35 36.9 C 79 18 121/78 01/03/23 11:16 58 L 18 01/03/23 07:36 36.4 C L 63 18 115/73 01/03/23 07:35 01/03/23 05:10 01/03/23 05:10 36.6 C 69 20 107/72 01/03/23 05:04 76 01/03/23 03:53 77 01/03/23 01:30 67 22 120/78 Pulse Ox O2 Del Method O2 Flow Rate 01/03/23 11:35 92 Nasal Cannula 3 01/03/23 11:16 94 Nasal Cannula 3 01/03/23 07:36 92 Nasal Cannula 3 01/03/23 07:35 Nasal Cannula 4 01/03/23 05:10 Nasal Cannula 4 01/03/23 05:10 4 L Nasal Cannula 4 01/03/23 05:04 01/03/23 03:53 01/03/23 01:30 92 Nasal Cannula 4 Laboratory Results Laboratory Results WBC 10.75 K/ul (4.8-10.8) 01/03/23 07:13 RBC 4.40 M/uL (4.70-6.10) L 01/03/23 07:13 Hgb 13.3 g/dl (14.0-18.0) L 01/03/23 07:13 Hct 41.2 % (42.0-52.0) L 01/03/23 07:13 MCV 93.6 fL (80.0-100.0) 01/03/23 07:13 MCH 30.2 pg (25.0-34.0) 01/03/23 07:13 MCHC 32.3 g/dL (32.0-36.0) 01/03/23 07:13 RDW Std Deviation 50.3 fL (36.4-46.3) H 01/03/23 07:13 RDW Coeff of Mannie 14.6 % (11.5-14.5) H 01/03/23 07:13 Plt Count 139 K/uL (130-400) 01/03/23 07:13 MPV 10.2 fL (9.4-12.4) 01/03/23 07:13 Immature Gran % (Auto) 0.7 % 01/03/23 07:13 Neut % (Auto) 59.5 % 01/03/23 07:13 Lymph % (Auto) 22.1 % 01/03/23 07:13 Banks % (Auto) 14.5 % 01/03/23 07:13 Eos % (Auto) 2.8 % 01/03/23 07:13 Baso % (Auto) 0.4 % 01/03/23 07:13 Neut # (Auto) 6.39 K/uL (1.40-6.50) 01/03/23 07:13 Lymph # (Auto) 2.38 K/uL (1.20-3.40) 01/03/23 07:13 Banks # (Auto) 1.56 K/uL (0.11-0.59) H 01/03/23 07:13 Eos # (Auto) 0.30 K/uL (0.00-0.50) 01/03/23 07:13 Baso # (Auto) 0.04 K/uL (0.00-0.20) 01/03/23 07:13 Immature Gran # (Auto) 0.08 K/uL (0.01-0.20) 01/03/23 07:13 Sodium 139 mmol/L (136-145) 01/03/23 07:13 Potassium 3.5 mmol/L (3.5-5.1) 01/03/23 07:13 Chloride 99 mmol/L (98-107) 01/03/23 07:13 Carbon Dioxide 35 mmol/L (21-32) H 01/03/23 07:13 Anion Gap 5 (3-11) 01/03/23 07:13 BUN 10 mg/dl (6-23) 01/03/23 07:13 Creatinine 0.85 mg/dl (0.6-1.4) 01/03/23 07:13 Est Cr Clr Drug Dosing 59.3 ml/min 01/03/23 07:13 Est GFR ( Amer) 94.7 ml/min 01/03/23 07:13 Est GFR (Non-Af Amer) 81.7 ml/min 01/03/23 07:13 BUN/Creatinine Ratio 11.8 (10-20) 01/03/23 07:13 Glucose 106 mg/dl (70-99(Fasting)) H 01/03/23 07:13 Calcium 9.3 mg/dl (8.6-10.3) 01/03/23 07:13 Magnesium 1.9 mg/dl (1.7-2.4) 01/03/23 07:13 Total Bilirubin 0.8 mg/dl (0.2-1.0) 01/02/23 18:53 AST 23 U/L (13-39) 01/02/23 18:53 ALT 12 U/L (7-52) 01/02/23 18:53 Alkaline Phosphatase 86 U/L (34-104) 01/02/23 18:53 Troponin I High Sens 9.1 pg/ml (0-20) 01/02/23 18:53 B-Natriuretic Peptide 70 pg/ml (0-100) 01/02/23 18:53 Total Protein 8.0 gm/dl (6.0-8.3) 01/02/23 18:53 Albumin 4.5 gm/dl (3.4-5.0) 01/02/23 18:53 Globulin 3.5 gm/dl (2.5-4.0) 01/02/23 18:53 Albumin/Globulin Ratio 1.3 (0.9-2) 01/02/23 18:53 Procalcitonin < 0.05 ng/ml (0-0.5) 01/02/23 18:53 Urine Color Yellow 01/02/23 20:23 Urine Appearance Clear (Clear) 01/02/23 20: Urine pH 7.5 (4.5-7.5) 01/02/23 20: Ur Specific Belle 1.012 (1.000-1.030) 01/02/23 20:23 Urine Protein Negative (Negative) 01/02/23 20:23 Urine Glucose (UA) Negative (Negative) 01/02/23 20: Urine Ketones Negative (Negative) 01/02/23 20: Urine Blood Trace (Negative) H 01/02/23 20:23 Urine Nitrite Negative (Negative) 01/02/23 20:23 Urine Bilirubin Negative (Negative) 01/02/23 20:23 Urine Urobilinogen Negative (Negative) 01/02/23 20:23 Ur Leukocyte Esterase Negative (Negative) 01/02/23 20:23 Urine WBC (Auto) 1-5 /hpf (0-5) 01/02/23 20:23 Urine RBC (Auto) 5-10 /hpf (0-4) H 01/02/23 20:23 U Hyaline Cast (Auto) 1-5 /lpf (0-5) 01/02/23 20:23 U Epithel Cells (Auto) 5-10 /lpf (0-5) H 01/02/23 20:23 Urine Bacteria (Auto) Negative (Negative) 01/02/23 20:23 Impressions Chest X-Ray 01/02/23 18:46 XR chest 1V not portable HISTORY: Dyspnea COMPARISON: Chest 12/14/2022. FINDINGS: No pneumothorax. There is persistent elevation of the right hemidiaphragm with bibasilar linear densities. This favors subsegmental atelectasis are scarring. No new focal lung consolidations to suggest a pneumonia. No evidence for pulmonary edema. Scoliosis again noted. There are degenerative changes within the shoulders. A calcified granuloma within the right midlung zone again noted. IMPRESSION: 1. No significant change compared to the prior study. 2. Bibasilar linear densities persist and favor subsegmental atelectasis or scarring. 3. Severe S-shaped scoliosis ACT 112: Negative or not required by law. Electronically signed by: Byron Collazo M.D. 01/02/2023 8:[address] 01/02/23 21:06 Exam(s): CT L SPINE EXAM: CT Lumbar Spine Without Intravenous Contrast CLINICAL HISTORY: Reason for exam: low back pain s/p fall. TECHNIQUE: Axial computed tomography images of the lumbar spine without intravenous contrast. CTDI is 39.4 mGy and DLP is 1079.83 mGy-cm. Automated exposure control was utilized for the study. A dose lowering technique was utilized adhering to the principles of ALARA. COMPARISON: No relevant prior studies available. FINDINGS: Severe levoconvex scoliosis of the lumbar spine. The vertebral body heights are maintained. The lumbar lordosis is preserved. There is no spondylolisthesis. The posterior elements are maintained, without evidence of acute fracture. The pedicles are intact. Multilevel lumbar spondylosis and degenerative disc disease. Bilateral pars defects at L5. Atelectasis at the lung bases. Nonobstructing bilateral renal calculi. IMPRESSION: Severe levoconvex scoliosis of the lumbar spine. No lumbar spine fracture. Nonobstructing bilateral renal calculi. Electronically signed by: Mario Way MD 01/02/23 23:[address] 01/02/23 21:06 Exam(s): CT PELVIS Without Contrast EXAM: CT Pelvis Without Intravenous Contrast CLINICAL HISTORY: Reason for exam: left hip pain s/p fall. TECHNIQUE: Axial computed tomography images of the pelvis without intravenous contrast. CTDI is 39.4 mGy and DLP is 913.12 mGy-cm. Automated exposure control was utilized for the study. A dose lowering technique was utilized adhering to the principles of ALARA. COMPARISON: No relevant prior studies available. FINDINGS: No femoral neck or intertrochanteric hip fracture. No pelvic fracture. Intact bilateral superior and inferior pubic rami. Degenerative changes of the bilateral hip joints, pubic symphysis, and sacroiliac joints. Diffuse osseous demineralization. Lumbar spondylosis and disc space narrowing. Intrapelvic contents are within normal limits for the patient's age. Nondisplaced fracture of the S4 vertebral body. IMPRESSION: No hip fracture. Nondisplaced fracture of the S4 vertebral body. Electronically signed by: Mario Way MD 01/02/23 23:58 PM
[2023-01-03] MEDS: oxyCODONE HCL IR 5 MG TAB (IMMEDIATE RELEASE) PO PRN ×2 (14:13→20:58)
[2023-01-03] MEDS: DULoxetine HCL 30 MG CAP PO SCH (20:59)
[2023-01-04] MEDS: ACETAMINOPHEN 325 MG TAB PO SCH ×3 (03:05→14:00)
[2023-01-04] MEDS: oxyCODONE HCL IR 5 MG TAB (IMMEDIATE RELEASE) PO PRN ×3 (03:05→18:14)
[2023-01-04] MEDS: Albuterol HFA 8 GM Inhaler (Combivent Respimat P&T Subs) INH SCH ×4 (06:56→19:21)
[2023-01-04] MEDS: Ipratropium HFA Inhaler (Combivent Respimat P&T Subs) INH SCH ×4 (06:56→19:21)
[2023-01-04] MEDS: ROSUVASTATIN CALCIUM 5 MG TAB PO SCH (08:00)
[2023-01-04] MEDS: PROPRANOLOL HCL 20 MG TAB PO SCH ×3 (08:00→21:32)
[2023-01-04] MEDS: LEVOTHYROXINE SODIUM 112 MCG TABLET PO SCH (08:01)
[2023-01-04] MEDS: CLOPIDOGREL BISULFATE 75 MG TAB PO SCH (08:01)
[2023-01-04] MEDS: MONTELUKAST SODIUM 10 MG TABLET PO SCH (08:01)
[2023-01-04] MEDS: PANTOprazole 40 MG TAB PO SCH (08:01)
[2023-01-04] MEDS: CITALOPRAM 20 MG TAB PO SCH (08:01)
[2023-01-04] MEDS: FUROSEMIDE 40 MG TAB PO SCH (08:02)
[2023-01-04] MEDS: LIDOCAINE 5% 1 PATCH TD SCH (08:03)
[2023-01-04] MEDS: HEPARIN SOD 5,000 UNIT/0.5 ML VIAL SQ SCH ×2 (08:03→21:29)
--- NOTE | 2023-01-04 15:43 | Hospitalist Progress Note ---
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 Ambulatory dysfunction Mechanical fall S4 vertebral fracture Patient presented from home after mechanical fall. Lumbar CT - Severe levoconvex scoliosis of the lumbar spine. No lumbar spine fracture. Pelvic CT - nondisplaced fracture of S4 vertebral body Pain control with lidocaine patch, scheduled Tylenol and PRN oxycodone Spine Ortho consulted, nonoperative management recommended, PT/OT Consult orthotics for brace PT OT, CM following Chronic respiratory failure with hypoxia on home oxygen Restrictive lung disease COPD Continue oxygen Home inhalers History of CAD s/p stent On Plavix, statin and beta-james Essential tremor On propranolol History of right-sided heart failure On Lasix Monitor for volume overload Hyperlipidemia On statin GERD On Protonix Hypothyroidism On Synthroid Depression Duloxetine and citalopram History of Schatzki's of distal esophagus States it was stretched twice Monitor for dysphagia Had a video swallow last admission and was deemed high risk for aspiration Minced and moist diet with small portions, no straws. DVT PROPHYLAXIS SQ heparin Dispo -pending, likely will need rehab placement, PT/OT, CM following Patient seen in collaboration with Dr. Calix. Admission and Anticipated Discharge Date Admission Date: January 03, 2023 Supervising Physician Co-Signing Physician Notes Patient seen and examined independently. Discussed with above provider. Pain well controlled on current regimen. Transfer to rehab when placement available. Subjective Follow-up for ambulatory dysfunction. Patient seen and examined. Reports ongoing sacral pain controlled with current pain medication regimen. No chest pain or shortness of breath. Denies abdominal pain and nausea. Physical Exam Constitutional: WD/WN, vitals as above no acute distress Respiratory: normal respiratory effort; no respiratory distress Auscultation: + diminished lung sounds Cardiovascular: Rate/Rhythm: regular rate and regular rhythm Vessels: normal peripheral pulses Extremities: no edema Gastrointestinal (Abdomen): Percussion/Palpation: abdomen soft; abdomen nontender Skin: no rashes, warm and dry Neurologic: no focal motor deficits Psychiatric: A+Ox3, euthymic affect Results & Data Results & Data Vital Signs (Past 12 Hours) Vital Signs Temp Pulse Pulse Resp BP Pulse Ox Pulse Ox 01/04/23 15:06 77 18 95 01/04/23 14:34 36.6 C 60 18 129/83 94 01/04/23 10:58 80 18 95 01/04/23 07:35 01/04/23 07:35 91 01/04/23 07:16 36.5 C 63 20 109/63 91 01/04/23 06:58 66 17 95 O2 Del Method O2 Del Method O2 Flow Rate O2 Flow Rate 01/04/23 15:06 Nasal Cannula 4 01/04/23 14:34 Nasal Cannula 3.5 01/04/23 10:58 Nasal Cannula 4 01/04/23 07:35 Nasal Cannula 3 01/04/23 07:35 Nasal Cannula 3 01/04/23 07:16 Nasal Cannula 3 01/04/23 06:58 Nasal Cannula 4
[2023-01-04] MEDS ORDERED: ACETAMINOPHEN 500 MG TAB PO SCH (15:46)
[2023-01-04] MEDS: ACETAMINOPHEN 500 MG TAB PO SCH (21:29)
[2023-01-04] MEDS: DULoxetine HCL 30 MG CAP PO SCH (21:31)
[2023-01-05] MEDS: oxyCODONE HCL IR 5 MG TAB (IMMEDIATE RELEASE) PO PRN ×4 (00:59→22:06)
--- OUTSIDE RECORDS SUMMARY | 2023-01-05 01:50 | External Medical Summary | Summary of Care ---
Author Name Unknown Organization [facility] Address [address] [place] [address] Phone [phone] Care Team Providers Care Call Or Contact Centre Manager Name Role Phone Jennifer Sarkar MD Primary Care Provider [phone] Reason for Visit * Reason Comments Cough C/o cough that is so metimes productive with light yellow mucus. Was discharged from the hospital yesterday and has had the cough for three days. He was on an abx and cough medicine in the hospital but nothing on discharge. Had swallow study and was told he has been aspirating. Daughter is concerned, patient gets pneumonia easily. Encounter Details Date Type Department Care Team (Late st Contact Info) Description 12/20/2022 1:40 PM EDT Office Visit General Internal Medicine [facility] [address] [place] [address] Osvaldo Carrera PA-C [address] [place] [address] Hospital discharge follow-up*; Aspiration into airway, subsequent encounter; Chronic respiratory failure with hypoxia (HCC); Granulomatous lung disease (HCC); Restrictive lung disease; Severe obstructive sleep apnea; Chronic right-sided heart failure (HCC); Coronary artery disease involving [place] coronary artery of [place] heart without angina pectoris; Essential tremor Allergies Active Allergy Reactions Criticality Noted Date Comments Food (See Comments) 03/21/2018 Other reaction(s): WAS TOLD NOT TO TAKE grapefruit Tramadol Other (Please comment) High 10/06/2020 Hallucinations documented as of this encounter (statuses as of 12/20/2022) Medications Medication Sig Dispensed Refills Start Date End Date Status NITROGLYCERIN 0.4 MG SL SUBLIndications:Old myocardial infarct,S/P primary angioplasty with coronary stent,Obstructive sleep apnea (adult) (pediatric),HTN, goal to be determined 1every 5 min as needed with chest pain up to 3 doses in 15 minutes 25 Tab 11 2 Active Zoledronic Acid 5 MG/100ML Intravenous Solution Administer 5 mg intravenously once. Yearly administration 0 Active oxygen 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:Granul omatous lung disease (HCC),Chronic right-sided heart failure (HCC),Chronic respiratory failure with hypoxia (HCC) Use 2 LPM with exertion. Portable oxygen tanks needed 1 Each 0 2 Active Acetaminophen 500 MG Oral Tablet (Tylenol)Indications: Spinal stenosis of lumbar region without neurogenic claudication Take by mouth 2 Tablets in the morning AND 2 Tablets before bedtime. ,may take 3rd dose in between --12/21/2021. 1 Tablet 0 2 Active Ipratropium-Albuterol 20-100 MCG/ACT Inhalation Aerosol Solution (Combivent Respimat)Indications: Granulomatous lung disease (HCC),Chronic respiratory failure with hypoxia (HCC) Inhale 1 Puff by mouth in the morning and 1 Puff at noon and 1 Puff in the evening and 1 Puff before bedtime. 4 g 2 3 Active Albuterol Sulfate HFA 108 (90 Base) MCG/ACT Inhalation Aerosol Solution Inhale 2 Puffs by mouth every 6 hours as needed for Wheezing. 18 g 0 3 Active Rosuvastatin Calcium 5 MG Oral Tablet (Crestor)Indications: Dyslipidemia, goal LDL below 100,S/P primary angioplasty with coronary stent Take 1 Tablet by mouth in the morning. Restart 04/16/2022. 90 Tablet 3 3 Active Saline Nasal Gel (Nasogel)Indications: Chronic respiratory failure with hypoxia (HCC),Supplemental oxygen dependent,Nasal septal perforation,Nose dryness Administer into each nostril daily. For dryness(nasal septal perforation) 14 g 0 3 Active Additional Information Patient not taking.Reported on 07/08/2022 Citalopram Hydrobromide 40 MG Oral Tablet (CeleXA)Indications:A nxiety Take 0.5 Tablets by mouth in the morning. --dec dose 05/18/2022 as adding duloxetine 30 In evening from 05/18/2022. 90 Tablet 3 3 Active Propranolol HCl 20 MG Oral Tablet (Inderal) Take 1 Tablet by mouth in the morning and 1 Tablet at noon and 1 Tablet before bedtime. 270 Tablet 3 3 Active DULoxetine HCl 30 MG Oral Capsule Delayed Release Particles (Cymbalta)Indications :Chronic bilateral low back pain without sciatica,Levoscoliosi s of lumbar spine TAKE 1 CAPSULE BY MOUTH EVERY EVENING. DO NOT CUT, CRUSH OR CHEW--START 05/18/2022 AND DEC CITALOPRAM TO 20MG 90 Capsule 1 3 Active Meclizine HCl 12.5 MG Oral Tablet (Antivert)Indications :Dizziness,Benign paroxysmal positional vertigo, unspecified laterality TAKE 1 TABLET BY MOUTH THREE TIMES A DAY NEEDED FOR DIZZINESS 30 Tablet 1 3 Active Pantoprazole Sodium 20 MG Oral Tablet Delayed Release (Protonix)Indications :History of gastroesophageal reflux (GERD),History of esophageal dilatation Take 1 Tablet by mouth at bedtime. 30 minutes before the first meal of the day. Do not crush, split or chew the tablet--12/21/2021([facility] EGD 08/21/21)--chg timing 05/18/2022 90 Tablet 3 3 Active Additional Information Patient taking differently: 40 mgOral HS, 30 minutes before the first meal of the day. Do not crush, split or chew the tablet--12/21/2021([facility] EGD 08/21/21)--chg timing 05/18/2022, Reported on 12/01/2022 Clopidogrel Bisulfate 75 MG Oral Tablet (pLAVix)Indications:S /P primary angioplasty with coronary stent TAKE 1 TABLET DAILY 90 Tablet 1 3 Active Montelukast Sodium 10 MG Oral Tablet (Singulair)Indication s:Chronic pansinusitis Take 1 Tablet by mouth in the morning. St 09/01/2022. 90 Tablet 3 3 Active Furosemide 20 MG Oral Tablet (Lasix)Indications:Ch ronic right-sided heart failure (HCC),Coronary artery disease involving [place] coronary artery of [place] heart without angina pectoris,Bilateral leg edema TAKE BY MOUTH 2 TABLETS IN THE MORNING. TAKE ADDITIONAL ONE FOR THREE DAYS AND DIRECTED. 270 Tablet 3 3 Active Levothyroxine Sodium 112 MCG Oral Tablet (Levoxyl)Indications: Acquired hypothyroidism Take 1 Tablet by mouth in the morning. (at least 30 min prior to breakfast or other meds)--dec 12/03/2022, lab in [place]. 90 Tablet 0 3 Active Benzonatate 100 MG Oral CapsuleIndications:As piration into airway, subsequent encounter Take 1 Capsule by mouth 3 times a day as needed for Cough. 30 Capsule 1 3 Active documented as of this encounter (statuses as of 12/20/2022) Active Problems Problem Noted Date Diagnosed Date Hypercalcemia 12/03/2022 Supplemental oxygen dependent 05/06/2022 Nasal septal perforation 05/06/2022 Chronic respiratory failure with hypoxia 022 Granulomatous lung disease 09/18/2021 Chronic rhinitis 06/10/2021 Schatzki's ring of distal esophagus 06/10/2021 Chronic right-sided heart failure 04/08/2020 Coronary artery disease invo lving [place] coronary artery of [place] heart without angina pectoris 11/21/2018 Abnormality of gait 11/21/2018 Displaced fracture of middle third of navicular bone of right wrist with delayed healing 10/04/2018 Current moderate episode of major depressive disorder without prior episode 11/21/2017 Senile osteoporosis 02/24/2017 Restrictive lung disease 09/06/2013 Overview: 11/15/21--86% rest, 91% ambln>to st O2 2 lt at rest and with exertion per Nixon Elevated hemidiaphragm 09/06/2013 EDITH inhibitor intolerance 10/13/2010 Overview: hypotension Dyslipidemia, goal LDL below 70 08/28/2009 HTN, GOAL BELOW 140/90 01/13/2009 Overview: Modified per HTN protocol #16. Old myocardial infarct 10/21/2008 ANGIOPLASTY WITH CORONARY STENT TO LAD - bare Me kassidy 10/16/2008 Severe obstructive sleep apnea 01/15/2008 Overview: 2007 PSG -- AHI 49.4/hr, hypoxemia Nocturnal hypoxemia 06/08/2007 Overview: 3 LPM at bedtime [employer] SPINAL STENOSIS-LUMBAR 07/29/2005 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 Essential tremor documented as of this encounter (statuses as of 12/20/2022) Resolved Problems Problem Noted Date Diagnosed Date Resolved Date Right-sided heart failure 01/30/2020 Gastroesophageal reflux dise ase without esophagitis 03/12/2019 10/03/2019 Hepatomegaly 04/22/2011 11/21/2017 EXT ASTHMA W/O STATUS ASTHMATIC OR AC EXACER 0 04/22/2009 Dysuria 10/14/2008 05/20/2011 Other chest pain 10/09/2008 10/16/2008 INTERFACED RESULT 10/09/2008 05/20/2011 Acute coronary syndrome 10/09/200804/22 Labyrinthitis, unspecified 08/30/2005 0 07/21/2016 Edema 08/30/2005 11/21/2017 Benign localized hyperplasia of prostate with urinary obstruction and other lower urinary tract symptoms (LUTS) 05/21/2005 07/21/2016 Abdominal pain, generalized 04/01/2005 01/19/2017 Overview: 03/29: Office cystoscopy for :cystoscopy and stent removal.He is s/p SWL for left renal stone. KUB suggests SWL not successful. Anesthesia : 2% lidocaine gel Procedure : Patient identified, prepped and draped in usual sterile manner. 14 Greek flexible cystoscope inserted into urethra and guided into bladder under direct vision. Findings :normal bladder mucosa, normal anatomical position of ureteral orifices.Ureteral stent removed completely Calculus of ureter 04/01/2005 8 ADVANCE DIRECTIVE INFORMATION 07/27/2004 07/21/2016 Overview: Patient does not have an advanced directive. Patient given information booklet. Bacterial pneumonia 07/31/2002 09/17/19 16 Depression with anxiety 11/18/200002/2017 HYPERTENSION NOS 01/13/2009 Overview: Modified per HTN protocol #16. Screening for prostate cancer 01/03/2007 Asthma, allergic 04/22/2009 Osteoporosis 02/24/2017 documented as of this encounter (statuses as of 12/20/2022) Immunizations Name Administration Dates Next Due COVID-19 mRNA, LNP-s, No Pre serve, 2-Dose Series (Pfizer) 05/14/2020,04/18/2020 H1N1 2009 Influenza, IM 04/22/2009 PPD 08/20/2020,08/11/2020 Pneumococcal Conjugate Vacc, 13 Valent (Prevnar) 11/12/2014 Pneumococcal Polysaccharide PPV23 (Pneumovax) 07/20/2007 SEASONAL INFLUENZA, PF, 6 M & Above, IM , (FLULAVAL or FLUZONE) 11/21/2017,11/29/2016 Season Influenza, Quad, PF, Adjuvanted, 65+ Yrs, IM (FLUAD) 11/29/2019 Seasonal Influenza, Quadriva lent Hd (Fluzone Hd) 11/22/2022,04/06/2022,12/09/2020 Seasonal Influenza, Quadriva lent, No Preserve, IM 12/25/2015,04/22/2009 Seasonal Influenza, Split, I IV3, With Preserve, Inj 11/12/2014,11/26/2013,10/31/2012,01/20,11/10/2010,12/23/2009,12/18/2008 ,12/14/2007,01/03/2007,12/15/2005 Seasonal Influenza, Trivalen t, Adjuvanted, 65+ yrs 11/21/2018 TD, Preservative Free 12/14/2007 TDAP (age 10 and older)(Boostrix) 07/19/2018 Zoster Vaccine Recombinant (Shingrix) 01/28/2020 ,09/17/2019 documented as of this encounter Social History Tobacco Use Types Packs/Day Years Used Date Smoking Tobacco: Former Pipe Q uit: 1961 Cigars Quit: 1961 Smokeless Tobacco: Never Comments:Smoked a occasional pipe or cigar socially when was younger. Alcohol Use Standard Drinks/Week Comments Yes 0 (1 standard drink = 0.6 oz pur e alcohol) rarely PHQ-2 Answer Date Recorded PHQ Adult Total Score 0 09/09/2021 Hunger Vital Sign Answer Date Recorded Worried About Running Out of Food in the Last Ye ar Never true 03/12/2019 Ran Out of Food in the Last Year Never true 03/12/2019 Sex and Gender Information Value Date Recorded Sex Assigned at Male 09/12/2018 4:46 PM EDT Gender Identity Male 09/12/2018 4:46 PM EDT Sexual Orientation Straight 09/12/2018 4: 46 PM EDT Job Start Date Occupation Industry Not on file Not on file Not on file documented as of this encounter Last Filed Vital Signs Vital Sign Reading Time Taken Comments Blood Pressure 110/70 12/20/2022 1:55 PM EDT Pulse 61 12/20/2022 1:55 PM EDT Temperature 36.3 C (97.4 F) 12/20/2022 1:55 PM ED T Respiratory Rate - - Oxygen Saturation 88% 12/20/2022 1:55 PM EDT Inhaled Oxygen Concentration - - Weight 74.5 kg (164 lb 3.2 oz) 12/20/2022 1:55 P M EDT Height - - Body Mass Index 27.32 12/01/2022 11:08 AM EDT documented in this encounter Nursing Notes * Rebeka Shipley LPN - 12/20/2022 1:55 PM EDT Chief Complaint Patient presents with Cough C/o cough that is sometimes productive with light yellow mucus. Was discharged from the hospital yesterday and has had the cough for three days. He was on an abx and cough medicine in the hospital but nothing on discharge. Had swallow study and was told he has been aspirating. Daughter is concerned, patient gets pneumonia easily. documented in this encounter Plan of Treatment Upcoming Encounters Date Type Department Care Team (Late st Contact Info) Description 12/21/2022 11:20 AM EDT Office Visit General Internal Medicine [facility] [address] [place] [address] Jennifer Sarkar MD [address] [place] [id number] 03/04/2023 11:00 AM EST Office Visit General Internal Medicine [facility] [address] [place], [place] [address] Jennifer Sarkar MD [address] [place], [place] [address] 04/12/2023 2:30 PM EST Office Visit Rheumatology [facility] [address] [place], [place] [address] Meryl Santiago CRNP [address] [facility] [place], [place] [address] 05/06/2023 2:30 PM EDT Office Visit Cardiology, [facility] [address] [place] [address] Filemon Ramirez MD [address] [place] [address] 08/03/2023 9:30 AM EDT Office Visit Urology, [facility] [address] [place] [address] Man Gu MD [address] [facility] [address] [place] [address] 10/20/2023 7:00 AM EDT Office Visit Nephrology, [facility] [address] [place], [place] [address] Yumiko Philippe MD [address] [place], [place] [address] Pending Results Name Type Priority Associated Diagnoses Date /Time RESPIRATORY PATHOGEN PANEL, PCR Lab Routine Aspiration into airway, subsequent encounter 12/20/2022 2:59 PM EDT Scheduled Orders Name Type Priority Associated Diagnoses Orde r Schedule RESPIRATORY PATHOGEN PANEL, PCR Lab Routine Aspiration into airway, subsequent encounter Expected: 12/20/2022 (Approximate), Expires: 12/20/2023 Scheduled Procedures Name Priority Associated Diagnoses Date/Ti me COLONOSCOPY FLEXIBLE PROXIMAL DIAGNOSTIC Recall History of colon polyps Health Maintenance Due Date Last Done Comments DXA Scan 08/05/2021 08/06/2019, 04/04/2017, 05/13/2015, Additional history exists COLONOSCOPY-EVERY 5 YRS AGES 18-100 06/03/2022 06/03/2017, 02/01/2007 Depression Screening 09/09/2022 09/09/2021 COVID-19 Vaccine ( season) 2022 05/14/2020, 04/18/2020 GFR 12/02/2023 12/01/2022, 03/24, 01/08/2022, Additional history exists TSH 12/02/2023 12/01/2022, 07/23, 05/18/2022, Additional history exists Albumin/Creatinine Ratio 09/09/2024 09/09/2021, 09/22 DTaP,Tdap,and Td Vaccines (2 - Td or Tdap) 07/19/2028 07/19/2018, 12/14/2007 Pneumococcal Vaccine: 65+ Years Completed 11/12/2014, 07/20/2007, 02/25/2002 Zoster Vaccines Completed 01/28/2020, 09/17/2019 Influenza Vaccine (FLU shot) Completed 03/2022, 04/06/2022, 12/09/2020, Additional history exists VITAMIN D LEVEL ONCE IN A LIFETIME-USE SMARTSET# [id number] Completed 12/01/2022, 09/09/2021, 04/08/2021, Additional history exists GARDASIL-HPV IMMUNIZATION SERIES Aged Out No longer eligible based on patient's age to complete this topic Hepatitis B Aged Out No longer eligi ble based on patient's age to complete this topic MENINGOCOCCAL (MENACTRA/MENVEO) Aged Out No longer eligible based on patient's age to complete this topic documented as of this encounter Medical Devices Implanted Type Area Steward/Stewardess Second Class Device Identifier Shelf Expiration Date Model / Serial / Lot Lens Intraoc 23.0 - [id number] - [id number] Implanted:Qty: 1 on 12/21/2016 by Raj Bernard MD at OR [facility] Left: Eye [employer] 06/20/2021 [id number] / [id number] / Lens Intraoc 22.0 - [id number] - [id number] Implanted:Qty: 1 on 01/06/2017 by Raj Bernard MD at [facility] Right: Eye [employer] 08/20/2021 [id number] / [id number] / [id number] documented as of this encounter Visit Diagnoses Diagnosis Hospital discharge follow-up- Primary Other follow-up examination Aspiration into airway, subsequent encounter Chronic respiratory failure with hypoxia (HCC) Chronic respiratory failure Granulomatous lung disease (HCC) Other diseases of lung, not elsewhere classified Restrictive lung disease Other diseases of lung, not elsewhere classified Severe obstructive sleep apnea Obstructive sleep apnea (adult) (pediatric) Chronic right-sided heart failure (HCC) Congestive heart failure, unspecified Coronary artery disease involving [place] coronary artery of [place] heart without angina pectoris Essential tremor Essential and other specified forms of tremor documented in this encounter Advance Directives Latest Code Status on File Code Status Date Activated Date Inactivated Comments Full Code 01/06/2017 12:19 PM 01/10/2017 11:00 AM T his order reflects the patients wishes and were consensually agreed upon. Code Status History Code Status Date Activated Date Inactivated Comments Full Code 12/21/2016 1:46 PM 12/21/2016 8:34 PM Thi s order reflects the patients wishes and were consensually agreed upon. Full Code 10/09/2008 1:46 PM 10/14/2008 9:18 PM This order reflects the patients wishes and were consensually agreed upon. Question Answer Comments Discussion of Advance Directives occurred with: Patient/Family Does the patient have a Living Will? No Does the patient have Health Care Power of Rf Technician? No Care Teams Call Or Contact Centre Manager Relationship Specialty Start Date End Date Jennifer Sarkar MD [address] [facility] [place] [address] PCP - General Internal Medicine 10/06/20 documented as of this encounter
--- OUTSIDE RECORDS SUMMARY | 2023-01-05 01:50 | External Medical Summary ---
Author Name Unknown Address Unknown Organization [id number]:[facility] [place] [address] [facility] [address] Laboratory Report Ordering Provider Test Date Status BRAD ALLRED 12/20/2022 14:59:25 Final Observation Date Value Abnormality Reference (Units ) Status Adenovirus DNA [Presence] in Nasopharynx by DANI with non-probe detection 12/20/2022 14:59:25 Negative Negative Final Human coronavirus 229E RNA [Presence] in Nasopharynx by DANI with non-probe detection 12/20/2022 14:59:25 Negative Negative Final Human coronavirus HKU1 RNA [Presence] in Nasopharynx by DANI with non-probe detection 12/20/2022 14:59:25 Negative Negative Final Human coronavirus NL63 RNA [Presence] in Nasopharynx by DANI with non-probe detection 12/20/2022 14:59:25 Negative Negative Final Human coronavirus OC43 RNA [Presence] in Nasopharynx by DANI with non-probe detection 12/20/2022 14:59:25 Negative Negative Final SARS-CoV-2 (COVID-19) RNA [Presence] in Nasopharynx by DANI with non-probe detection 12/20/2022 14:59:25 Negative Negative Final Human metapneumovirus RNA [Presence] in Nasopharynx by DANI with non-probe detection 12/20/2022 14:59:25 Negative Negative Final Rhinovirus+Enterovirus RNA [Presence] in Nasopharynx by DANI with non-probe detection 12/20/2022 14:59:25 Positive Abnormal Negative Final Rhinovirus/Enterovirus detec giovanni by PCR (amplified probe). Influenza virus A RNA [Prese nce] in Nasopharynx by DANI with non-probe detection 12/20/2022 14:59:25 Negative Negative Final Influenza virus B RNA [Prese nce] in Nasopharynx by DANI with non-probe detection 12/20/2022 14:59:25 Negative Negative Final Parainfluenza virus 1 RNA [P resence] in Nasopharynx by DANI with non-probe detection 12/20/2022 14:59:25 Negative Negative Final Parainfluenza virus 2 RNA [P resence] in Nasopharynx by DANI with non-probe detection 12/20/2022 14:59:25 Negative Negative Final Parainfluenza virus 3 RNA [P resence] in Nasopharynx by DANI with non-probe detection 12/20/2022 14:59:25 Negative Negative Final Parainfluenza virus 4 RNA [P resence] in Nasopharynx by DANI with non-probe detection 12/20/2022 14:59:25 Negative Negative Final Respiratory syncytial virus RNA [Presence] in Nasopharynx by DANI with non-probe detection 12/20/2022 14:59:25 Negative Negative F inal Bordetella pertussis.pertuss is toxin promoter region [Presence] in Nasopharynx by DANI with non-probe detection 12/20/2022 14:59:25 Negative Negative Final Chlamydophila pneumoniae DNA [Presence] in Nasopharynx by DANI with non-probe detection 12/20/2022 14:59:25 Negative Negative Final Mycoplasma pneumoniae DNA [P resence] in Nasopharynx by DANI with non-probe detection 12/20/2022 14:59:25 Negative Negative Final Bordetella parapertussis IS1 001 DNA [Presence] in Nasopharynx by DANI with non-probe detection 12/20/2022 14:59:25 Negative Negative F inal
The primers that detect Rhinovirus may cross react with some Enterorviruses. The validation of bronchial specimens, tracheal aspirates, and throats for this assay was developed and performance characteristics determined by [employer]. The validation of alternate specimen types has not been cleared or approved by the U.S. Food and Drug Administration (FDA). It has been determined that such clearance or approval is not necessary. Performing Location [facility] [place] [facility] [address]. [facility] [address]
--- OUTSIDE RECORDS SUMMARY | 2023-01-05 01:50 | External Medical Summary | Summary of Care ---
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 Phone Jennifer Sarkar MD Primary Care Provider [phone] Reason for Visit * Reason Onset Date Comments Follow Up The pt stated he is here to follow up after a recent d/c from [facility] on 12/19/2022 Hospital Follow-Up 12/21/2022 Encounter Details Date Type Department Care Team (Latest Contact Info) Description 12/21/2022 11:20 AM EDT Office Visit General Internal Medicine [facility] [address] [facility] [place] [address] Jennifer Sarkar MD [address] [place] [address] Hospital discharge follow-up*; Ambulatory dysfunction; Personal history of fall; Chronic right-sided heart failure (HCC); Chronic respiratory failure with hypoxia (HCC); At risk for aspiration pneumonia; HTN, goal below 140/90; History of esophageal dilatation; Schatzki's ring of distal esophagus; Essential tremor; Coronary artery disease involving umatilla tribe coronary artery of umatilla tribe heart without angina pectoris; Acquired hypothyroidism; Bilateral nephrolithiasis; Cerebral microvascular disease; Rhinovirus infection; Senile osteoporosis; Dyslipidemia, goal LDL below 70 Allergies Active Allergy Reactions Criticality Noted Date Comments Food (See Comments) 03/21/2018 Other reaction(s): WAS TOLD NOT TO TAKE grapefruit Tramadol Other (Please comment) High 10/06/2020 Hallucinations documented as of this encounter (statuses as of 12/21/2022) Medications Medication Sig Dispensed Refills Start Date [...] between --12/21/2021. 1 Tablet 0 2 Active Additional Information Patient taking differently:1,000 mg [id number] PRN, ,may take 3rd dose in between --12/21/2021, Reported on 12/21/2022 Ipratropium-Albuterol 20-100 MCG/ACT Inhalation Aerosol Solution (Combivent [...] septal perforation) 14 g 0 3 Active Citalopram Hydrobromide 40 MG Oral Tablet (CeleXA)Indications:A [...] Do not crush, split or chew the tablet--dec 12/21/2021(nml EGD 08/21/21)--chg timing 05/18/2022 90 Tablet 3 3 Active Additional Information Patient taking differently:20 mg OralDaily(AM), (No instructions reported), Reported on 12/21/2022 Clopidogrel Bisulfate 75 MG Oral Tablet (pLAVix)Indications:S /P primary angioplasty with coronary stent TAKE 1 TABLET DAILY 90 Tablet 1 3 Active Montelukast Sodium 10 MG Oral Tablet (Singulair)Indication s:Chronic pansinusitis Take 1 Tablet by mouth in the morning. St 09/01/2022. 90 Tablet 3 3 Active Furosemide 20 MG Oral Tablet (Lasix)Indications:Ch ronic right-sided heart failure (HCC),Coronary artery disease involving umatilla tribe coronary artery of umatilla tribe heart without angina pectoris,Bilateral leg edema TAKE [...] as of this encounter (statuses as of 12/21/2022) Active Problems Problem Noted Date Diagnosed Date Hypercalcemia 12/03/2022 Supplemental oxygen dependent 05/06/2022 Nasal septal perforation 05/06/2022 Chronic respiratory failure with hypoxia 022 Granulomatous lung disease 09/18/2021 Chronic rhinitis 06/10/2021 Schatzki's ring of distal esophagus 06/10/2021 Chronic right-sided heart failure 04/08/2020 Coronary artery disease invo lving umatilla tribe coronary artery of umatilla tribe heart without angina pectoris 11/21/2018 Abnormality of [...] CORONARY STENT TO LAD - bare Me kasisdy 10/16/2008 Severe obstructive sleep apnea 01/15/2008 Overview: [...] as of this encounter (statuses as of 12/21/2022) Resolved Problems Problem Noted Date Diagnosed Date [...] and draped in usual sterile manner. 14 Taiwanese flexible cystoscope inserted into urethra and guided [...] as of this encounter (statuses as of 12/21/2022) Immunizations Name Administration Dates Next Due COVID-19 [...] Sign Reading Time Taken Comments Blood Pressure 112/62 12/21/2022 11:43 AM EDT Pulse 64 12/21/2022 11:43 AM EDT Temperature 36.2 C (97.1 F) 12/21/2022 11:43 AM E DT Respiratory Rate - - Oxygen Saturation 93% 12/21/2022 11:43 AM EDT 3L: N/C Inhaled Oxygen Concentration - - Weight 73.3 kg (161 lb 8 oz) 12/21/2022 11:43 AM EDT Height - - Body Mass Index 26.88 12/01/2022 11:08 AM EDT documented in this encounter Progress Notes * Jennifer Sarkar MD - 12/21/2022 11:46 AM EDT SUBJECTIVE: Fabian Starks is a 82 year old male. Chief Complaint Patient presents with Follow Up The pt stated he is here to follow up after a recent d/c from [facility] on 12/19/2022 HPI: Patient presents today for hospital follow-up appointment. Reviewed available hospital records including history and physical, labs, imaging and discharge summary. Wt Readings from Last 6 Encounters: 12/21/22 73.3 kg (161 lb 8 oz) 12/20/22 74.5 kg (164 lb 3.2 oz) 12/01/22 73.7 kg (162 lb 6.4 oz) 09/01/22 80.5 kg (177 lb 6.4 oz) 08/11/22 78 kg (172 lb 0.6 oz) 07/08/22 77.7 kg (171 lb 6.4 oz) BP Readings from Last 6 Encounters: 12/21/22 112/62 12/20/22 110/70 12/01/22 110/72 09/01/22 110/78 08/11/22 130/78 07/08/22 124/84 History of CAD H/o AMI SP BMStent 09/2008, HTN, dyslipidemia, hypothyroidism, chronic peripheral edema, right heart failure, severe EZEQUIEL Untreated(sev EZEQUIEL on PSG 2007 with hypoxia) and RLD with chronically elevated right hemidiaphragm,scoliosis; on nocturnal oxygen 4 lts and in day, essential tremors , Osteoporosis, Depression, history of C2 fracture from a mechanical fall 08/11 managed conservatively; Lumbar spinal stenosis, cerv and lumbar DDD,nephrolithiasis noted on CT 04/2017-saw Michael for other issue. History of periodontal abscess and several teeth extraction done 07/05/2021. H/o Eso dilation, erosions in 2018 history of dysphagia, EGD 09/11 was normal empirically dilated esophagus, small hiatal hernia Essential tremors, last saw Neurology in October 2019 --had wish to follow-up and had zmrfixqhuvw45/4/2022 which he missed Admitted 10/14/2022, discharged 11/13/2022 with a final diagnosis of acute on chronic respiratory failure, pulmonary edema, COPD exacerbation, possible MRSA pneumonia versus aspiration pneumonia, probable C diff colitis. -sent to short-term rehab at [facility] and discharged from there on 11/26/2022 with home health through [facility]. Was treated with IV vancomycin and cefepime for 10 days, initially placed on BiPAP and weaned off, continued on supplemental oxygen, home diuretics. Stool studies positive for C diff gene negative for toxin, completed 10 day course of p.o. vancomycin. 08/06/22--ECHO- LVEF normal 59% with a small-sized apical wall motion abnormality. Aortic sclerosis without stenosis. Mild MR. RV normal in size and function. Admitted to [facility] 12/08/2022 discharged 12/19/2022 with diagnosis of ambulatory dysfunction, suspectaspiration pneumonia. --he had been trying to get food out of the refrigerator but because of weakness and tremors in theleg he fell hitting the back of his head against a wall, no loss of consciousness, had difficulty getting up, neighbor helped him and brought him to the ER. Labs--normal CBC except WBC 11.28, normal BMP except potassium 3.4, bicarb 36. EKG normal sinus rhythm no ischemic changes. Chest x-ray negative. CT head negative for acute findings, global volume loss, extensive chronic microvascular ischemic changes. CT C-spine no acute findings, facet arthritis and varying degrees of spinal stenosis. CT lumbar spine-severe osteoporosis, scoliosis, nonobstructing stone bilateral, right renal cyst Was admitted status post fall at home and felt a physical deconditioning, insurance denied SNF placement, discharged home with home health.,Pt,OT Was empirically started on Augmentin. Speech therapy consulted-video swallow cjaho-guff-rs-moderate oropharyngeal dysphagia with suspected esophageal dysfunction, aspiration reflux precautions recommended-minced and moist diet with smallportion, no straws --REC alternate solids and liquids fully alert and upright give meds in a carrier, oral hygiene, single bites, small sips, slow rate, no straws, head of the bed 30 all time ; upright with meals andadditional 30 minutes Discharge medications-no chg- ct propranolol 20 mg three times conchita citalopram 20 mg, Plavix, Combivent, Crestor 5 mg, Singulair, Lasix 40 mg daily with extra 20 mg in the afternoon as needed for swelling or shortness of breath, levothyroxine 112g-we dec 12/03/22, lab in feb, meclizine p.r.n., Protonix 20 mg, duloxetine 30 mg, O2 2l with exertion. IV Reclast yearly;--LD 10/14/22 -next rheumatology follow-up 04/12/2023 --dexa needs ann-last in 2019, had order from [facility] 08/12 but not ann yet -seen yesterday for cough, got RF Tessalon, respiratory pathogen panel positive for rhino virus. -daughter accompanies him today again. He has not been using the Combivent, has a cough seems productive of sputum which he is unable to expectorate. No fever or chills. No leg edema. Denies diarrhea. [facility] nurse came in yesterday, to start PT, OT, they also have requested a speech therapy referral. Has not elevated the head end of the bed 30 recommended to as per speech pathology advise. To try bed risers or use a wedge pillow, he is not ready for hospital bed yet. Gets meals from neighbors or his sister or what daughter has shopped for him. 12/01/22--Labs-normal CMP except calcium 10.6, -added Phos,PTH,vitamin-D , he is not on MV/ calciumsupplements Uric acid improved to 6.4,, continue low purine diet. Submit urine-urorisk now, ann earlier appt nephrology TSH 0.28, decrease levothyroxine to 112 mcg daily.-rx sent --ch TSH in Feb Urinalysis shows trace blood, keep appointment with Urology and Nephrology --Nml VD PTH,PHOS,refer to endocrinology eval of hypercalcemia Discussed about covid booster, RSV vaccine. Keep cardiology appointment in April , also need to [facility] pul appt Potassium Results: Lab Results Component Value Date/Time POTASSIUM - [facility] 4.2 12/01/2022 12:22 PM POTASSIUM - [facility] 4.1 04/06/2022 12:44 PM POTASSIUM - [facility] 3.7 01/08/2022 10:58 AM POTASSIUM - [facility] 4.0 01/02/2020 12:23 PM POTASSIUM - [facility] 4.3 09/10/2019 09:34 AM POTASSIUM - [facility] 4.7 11/21/2018 02:46 PM [facility] 4.0 10/03/2020 12:00 AM [facility] 4.0 06/12/2014 12:00 AM Lipid Panel Results: Results for orders placed or performed in visit on 09/09/21 LIPID PANEL WITH DIRECT LDL IF TG IS HIGH Result Value Ref Range Triglycerides 166 <=174 mg/dL Cholesterol 121 <200 mg/dL HDL Cholesterol 53 >39 mg/dL Non-HDL Cholesterol 68 <=159 mg/dL . Patient Active Problem List Diagnosis Code Acquired hypothyroidism E03.9 Congenital anomaly of lung Q33.9 Essential tremor G25.0 Idiopathic scoliosis M41.20 SPINAL STENOSIS-LUMBAR M48.061 Nocturnal hypoxemia G47.34 Severe obstructive sleep apnea G47.33 ANGIOPLASTY WITH CORONARY STENT TO LAD - bare Metal Z95.5 Old myocardial infarct I25.2 HTN, GOAL BELOW 140/90 I10 Dyslipidemia, goal LDL below 70 E78.5 EDITH inhibitor intolerance Z78.9 Restrictive lung disease J98.4 Elevated hemidiaphragm J98.6 Senile osteoporosis M81.0 Current moderate episode of major depressive disorder without prior episode ([facility]) F32.1 Displaced fracture of middle third of navicular bone of right wrist with delayed healing S62.021G Coronary artery disease involving umatilla tribe coronary artery of umatilla tribe heart without angina pectoris I25.10 Abnormality of gait R26.9 Chronic right-sided heart failure ([facility]) I50.812 Chronic rhinitis J31.0 Schatzki's ring of distal esophagus K22.2 Granulomatous lung disease ([facility]) J84.10 Chronic respiratory failure with hypoxia ([facility]) J96.11 Supplemental oxygen dependent Z99.81 Nasal septal perforation J34.89 Hypercalcemia E83.52 Outpatient Medications Prior to Visit Medication Sig Dispense Refill Benzonatate 100 MG Oral Capsule Take 1 Capsule by mouth 3 times a day as needed for Cough. 30 Capsule 1 Levothyroxine Sodium 112 MCG Oral Tablet (Levoxyl) Take 1 Tablet by mouth in the morning. (at least30 min prior to breakfast or other meds)--12/03/2022, lab in Feb. 90 Tablet 0 Furosemide 20 MG Oral Tablet (Lasix) TAKE BY MOUTH 2 TABLETS IN THE MORNING. TAKE ADDITIONAL ONE FOR THREE DAYS AND DIRECTED. 270 Tablet 3 Montelukast Sodium 10 MG Oral Tablet (Singulair) Take 1 Tablet by mouth in the morning. St 09/01/2022. 90 Tablet 3 Clopidogrel Bisulfate 75 MG Oral Tablet (pLAVix) TAKE 1 TABLET DAILY 90 Tablet 1 DULoxetine HCl 30 MG Oral Capsule Delayed Release Particles (Cymbalta) TAKE 1 CAPSULE BY MOUTH EVERY EVENING. DO NOT CUT, CRUSH OR CHEW--START 05/18/2022 AND DEC CITALOPRAM TO 20MG 90 Capsule 1 Meclizine HCl 12.5 MG Oral Tablet (Antivert) TAKE 1 TABLET BY MOUTH THREE TIMES A DAY NEEDED FORDIZZINESS 30 Tablet 1 Pantoprazole Sodium 20 MG Oral Tablet Delayed Release (Protonix) Take 1 Tablet by mouth at bedtime.30 minutes before the first meal of the day. Do not crush, split or chew the tablet--12/21/2021(nml EGD 08/21/21)--[facility] timing 05/18/2022 (Patient taking differently: Take 1 Tablet by mouth in the morning.) 90 Tablet 3 Propranolol HCl 20 MG Oral Tablet (Inderal) Take 1 Tablet by mouth in the morning and 1 Tablet at noon and 1 Tablet before bedtime. 270 Tablet 3 Citalopram Hydrobromide 40 MG Oral Tablet (CeleXA) Take 0.5 Tablets by mouth in the morning. --dec dose 05/18/2022 as adding duloxetine 30 In evening from 05/18/2022. 90 Tablet 3 Saline Nasal Gel (Nasogel) Administer into each nostril daily. For dryness(nasal septal perforation) 14 g 0 Rosuvastatin Calcium 5 MG Oral Tablet (Crestor) Take 1 Tablet by mouth in the morning. Restart 04/16/2022. 90 Tablet 3 Albuterol Sulfate HFA 108 (90 Base) MCG/ACT Inhalation Aerosol Solution Inhale 2 Puffs by mouth every 6 hours as needed for Wheezing. 18 g 0 Ipratropium-Albuterol 20-100 MCG/ACT Inhalation Aerosol Solution (Combivent Respimat) Inhale 1 Puffby mouth in the morning and 1 Puff at noon and 1 Puff in the evening and 1 Puff before bedtime. 4 g2 Acetaminophen 500 MG Oral Tablet (Tylenol) Take by mouth 2 Tablets in the morning AND 2 Tablets before bedtime. ,may take 3rd dose in between --12/21/2021. (Patient taking differently: Take 2 Tabletsby mouth every 6 hours as needed. ,may take 3rd dose in between --12/21/2021) 1 Tablet 0 oxygen IN GAS Use 2 LPM with exertion. Portable oxygen tanks needed 1 Each 0 NITROGLYCERIN 0.4 MG SL SUBL 1every 5 min as needed with chest pain up to 3 doses in 15 minutes 25 Tab 11 Zoledronic Acid 5 MG/100ML Intravenous Solution Administer 5 mg intravenously once. Yearly administration (Patient not taking: Reported on 07/08/2022) No facility-administered medications prior to visit. Last reviewed on 12/21/2022 11:42 AM by Joel David LPN Review of patient's allergies indicates: Allergen Reactions Tramadol Other (Please comment) Hallucinations Food (See Comments) Other reaction(s): WAS TOLD NOT TO TAKE grapefruit OBJECTIVE: BP 112/62 | Pulse 64 | Temp 36.2 C (97.1 F) | Wt 73.3 kg (161 lb 8 oz) | SpO2 93% Comment: 3L: N/C | BMI 26.88 kg/m | BSA 1.83 m PHYSICAL EXAM: General: alert, healthy, no distress, well nourished and well developed Eyes: conjunctiva non-injected, sclera white, gaze conjugate, EOMI, PERRLA, Ears: pinna normal shape and color Last OV(Nose: +nasal septal perforation,,no mucosal erythema, no mucosal edema and no purulent discharge Mouth: no exudate, uvula moves centrally) Neck: supple, no adenopathy, no bruits, thyroid normal size, non-tender, without nodularity Heart: regular rate & rhythm, no gallops /murmurs. Lungs: lungs clear to auscultation, sl dec BS Neuro: alert, gait slow, motor no focal deficits, Neg cerebellar signs.-kiyz-ml-iyve, dysdiadochokinesis, Ext--+tremors Back--mild left convex lumbar scoliosis Abdomen: Soft, non-tender,small umb hernia, normal bowel sounds, no masses or organomegaly, no bruits Extremities: trace Edema above sock line,no clubbing, no cyanosis with O2. Rt hand-no erythema/swelling now Skin: skin color, texture, turgor are normal, no rashes ASSESSMENT/PLAN: Hospital discharge follow-up (Primary) - DISCH MED RECON CUR MED LIS - SPEECH/HEARING THERAPY, INDIVIDUAL Ambulatory dysfunction - DISCH MED RECON CUR MED LIS Personal history of fall - DISCH MED RECON CUR MED LIS Chronic right-sided heart failure (HCC) - DISCH MED RECON CUR MED LIS Chronic respiratory failure with hypoxia (HCC) - COMPREHENSIVE METABOLIC PANEL; Future; Expected date: 02/25/2023 At risk for aspiration pneumonia - DISCH MED RECON CUR MED LIS - SPEECH/HEARING THERAPY, INDIVIDUAL HTN, goal below 140/90 - COMPREHENSIVE METABOLIC PANEL; Future; Expected date: 02/25/2023 History of esophageal dilatation Schatzki's ring of distal esophagus - DEXA SCAN/BONE MINERAL AXIAL; Future; Expected date: 12/21/2022 - SPEECH/HEARING THERAPY, INDIVIDUAL Essential tremor Coronary artery disease involving umatilla tribe coronary artery of umatilla tribe heart without angina pectoris - LIPID PANEL WITH DIRECT LDL IF TG IS HIGH; Future; Expected date: 02/25/2023 - COMPREHENSIVE METABOLIC PANEL; Future; Expected date: 02/25/2023 Acquired hypothyroidism Bilateral nephrolithiasis Cerebral microvascular disease Rhinovirus infection Senile osteoporosis - DEXA SCAN/BONE MINERAL AXIAL; Future; Expected date: 12/21/2022 Dyslipidemia, goal LDL below 70 - LIPID PANEL WITH DIRECT LDL IF TG IS HIGH; Future; Expected date: 02/25/2023 ct current meds Discussed aspiration precautions. Hospital discharge follow-up (Primary) - DISCH MED RECON CUR MED LIS - SPEECH/HEARING THERAPY, INDIVIDUAL Ambulatory dysfunction - DISCH MED RECON CUR MED LIS Personal history of fall - DISCH MED RECON CUR MED LIS Chronic right-sided heart failure (HCC) - DISCH MED RECON CUR MED LIS Chronic respiratory failure with hypoxia (HCC) - COMPREHENSIVE METABOLIC PANEL; Future; Expected date: 02/25/2023 At risk for aspiration pneumonia - DISCH MED RECON CUR MED LIS - SPEECH/HEARING THERAPY, INDIVIDUAL HTN, goal below 140/90 - COMPREHENSIVE METABOLIC PANEL; Future; Expected date: 02/25/2023 History of esophageal dilatation Schatzki's ring of distal esophagus - DEXA SCAN/BONE MINERAL AXIAL; Future; Expected date: 12/21/2022 - SPEECH/HEARING THERAPY, INDIVIDUAL Essential tremor Coronary artery disease involving umatilla tribe coronary artery of umatilla tribe heart without angina pectoris - LIPID PANEL WITH DIRECT LDL IF TG IS HIGH; Future; Expected date: 02/25/2023 - COMPREHENSIVE METABOLIC PANEL; Future; Expected date: 02/25/2023 Acquired hypothyroidism Bilateral nephrolithiasis Cerebral microvascular disease Rhinovirus infection Senile osteoporosis - DEXA SCAN/BONE MINERAL AXIAL; Future; Expected date: 12/21/2022 Dyslipidemia, goal LDL below 70 - LIPID PANEL WITH DIRECT LDL IF TG IS HIGH; Future; Expected date: 02/25/2023 Follow Up: Return if symptoms worsen or fail to improve, for Return with Physician. | For: Return with Physician | Check-out note: As ann in [facility] Ann dexa, endo appt also need to ann pulm appt that is overdue (This note was completed using the dictation program Fluency Direct. As such, there may be misspellings, word substitutions, or other variations that should not change the essence of the clinical content of this encounter note. If there is need for further clarification, please direct questions to the provider listed above.) Patient and / caregiver verbalizes understanding of above instructions and agrees with plan of care. Jennifer Sarkar MD 12/21/2022 documented in this encounter Nursing Notes * Joel David LPN - 12/21/2022 11:43 AM EDT Chief Complaint Patient presents with Follow Up The pt stated he is here to follow up after a recent d/c from [facility] on 12/19/2022 documented in this encounter Plan of Treatment Upcoming Encounters Date Type Department Care Team (Late st Contact Info) Description 01/06/2023 1:00 PM EST Telemedicine Endocrinology, [place] [address] [place] [address] Mikie Degroot MD [address] [place] [address] 03/04/2023 11:00 AM EST Office Visit General Internal Medicine [facility] [address] [facility] [place] [address] Jennifer Sarkar MD [address] [facility] [place] [address] 03/08/2023 2:00 PM EST Imaging Radiology, [address] [place] [address] 04/12/2023 2:30 PM EST Office Visit Rheumatology [address] [place] [address] Meryl Santiago CRNP [address] [place] [address] [place] [address] 05/06/2023 2:30 PM EDT Office Visit Cardiology, [facility] [address] [facility] [place] [address] Filemon Ramirez MD [address] [place] [address] 08/03/2023 9:30 AM EDT Office Visit Urology, [facility] [address] [facility] [place] [address] Man Gu MD [address] [facility] [address] [address] [place] [address] 10/20/2023 7:00 AM EDT Office Visit Nephrology, [facility] [address] [facility] [place] [address] Yumiko Philippe MD [address] [facility] [place] [address] Scheduled Orders Name Type Priority Associated Diagnoses Orde r Schedule DEXA SCAN/BONE MINERAL AXIAL Medical Imaging Routine Schatzki's ring of distal esophagus Senile osteoporosis Expected: 12/21/2022, Expires: 01/21/2024 LIPID PANEL WITH DIRECT LDL IF TG IS HIGH Lab Routine Coronary artery disease involving umatilla tribe coronary artery of umatilla tribe heart without angina pectoris Dyslipidemia, goal LDL below 70 Expected: 02/25/2023 (Approximate), Expires: 12/22/2023 COMPREHENSIVE METABOLIC PANEL Lab Routine Chronic respiratory failure with hypoxia (HCC) HTN, goal below 140/90 Coronary artery disease involving umatilla tribe coronary artery of umatilla tribe heart without angina pectoris Expected: 02/25/2023 (Approximate), Expires: 12/21/2023 SPEECH/HEARING THERAPY, INDIVIDUAL Procedures Routine At risk for aspiration pneumonia Schatzki's ring of distal esophagus Hospital discharge follow-up Ordered: 12/21/2022 Scheduled Procedures Name Priority Associated Diagnoses Date/Ti me COLONOSCOPY FLEXIBLE PROXIMAL DIAGNOSTIC Recall History of colon polyps Health Maintenance Due Date Last Done Comments DXA Scan 08/05/2021 08/06/2019, 04/0 04/2017, 05/13/2015, Additional history exists COLONOSCOPY-EVERY 5 YRS [...] D LEVEL ONCE IN A LIFETIME-USE SMARTSET# [id number] Completed 12/01/2022, 09/09/2021, 04/08/2021, Additional history exists [...] this encounter Medical Devices Implanted Type Area Plant Chief Device Identifier Shelf Expiration Date Model / Serial / Lot Lens Intraoc 23.0 - [id number] - [id number] Implanted:Qty: 1 on 12/21/2016 by Raj Bernard MD at [facility] Left: Eye [employer] 06/20/2021 [id number] / [id number] / Lens Intraoc 22.0 - [id number] - [id number] Implanted:Qty: 1 on 01/06/2017 by Raj Bernard MD at [facility] Right: Eye [employer] 08/20/2021 [id number] / [id number] / [id number] documented as of this encounter Visit Diagnoses Diagnosis Hospital discharge follow-up- Primary Other follow-up examination Ambulatory dysfunction Personal history of fall Chronic right-sided heart failure (HCC) Congestive heart failure, unspecified Chronic respiratory failure with hypoxia (HCC) Chronic respiratory failure At risk for aspiration pneumonia HTN, goal below 140/90 Unspecified essential hypertension History of esophageal dilatation Schatzki's ring of distal esophagus Essential tremor Essential and other specified forms of tremor Coronary artery disease involving umatilla tribe coronary artery of umatilla tribe heart without angina pectoris Acquired hypothyroidism Unspecified hypothyroidism Bilateral nephrolithiasis Cerebral microvascular disease Cerebrovascular disease, unspecified Rhinovirus infection Rhinovirus infection in conditions classified elsewhere and of unspecified site Senile osteoporosis Dyslipidemia, goal LDL below 70 Other and unspecified hyperlipidemia documented in this encounter Additional Health Concerns Infection Onset Date Last Indicated Resolved Time Enterovirus (resp)/Rhinovirus 12/20/2022 12/20/2022 documented as of this encounter Advance Directives Latest Code Status [...] the patient have Health Care Power of News Camera Person? 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
--- OUTSIDE RECORDS SUMMARY | 2023-01-05 01:50 | External Medical Summary | Summary of Care ---
Author Name Unknown Organization [facility] Address [address] [facility] [address] Phone [phone] Care Team Providers Care Stock Preparation Operator Name Role Phone Jennifer Sarkar MD Primary Care Provider [phone] Reason for Visit * Reason Onset Date Comments Hospital Follow-Up 12/20/2022 Encounter Details Date Type Department Care Team (Late st Contact Info) Description 12/20/2022 Telephone Ancillary [facility] [place] [address] [place] [address] Linette Pope, K[facility] Hospital Follow-Up Allergies Active Allergy Reactions Criticality Noted Date [...] Do not crush, split or chew the tablet--12/21/2021([facility] EGD 08/21/21)--chg timing 05/18/2022 90 Tablet 3 3 Active Additional Information Patient taking differently: 40 mgOral HS, 30 minutes before the first meal of the day. Do not crush, split or chew the tablet--12/21/2021([facility] EGD 08/21/21)--chg timing 05/18/2022, Reported on 12/01/2022 [...] right-sided heart failure (HCC),Coronary artery disease involving crow coronary artery of crow heart without angina pectoris,Bilateral leg edema TAKE BY MOUTH 2 TABLETS IN THE MORNING. TAKE ADDITIONAL ONE FOR THREE DAYS AND DIRECTED. 270 Tablet 3 3 Active Levothyroxine Sodium 112 MCG Oral Tablet (Levoxyl)Indications: Acquired hypothyroidism Take 1 Tablet by mouth in the morning. (at least 30 min prior to breakfast or other meds)--12/03/2022, lab in Feb. 90 Tablet 0 3 Active documented as of this encounter (statuses as of 12/20/2022) Active Problems Problem Noted Date Diagnosed Date Hypercalcemia 12/03/2022 Supplemental oxygen dependent 05/06/2022 Nasal septal perforation 05/06/2022 Chronic respiratory failure with hypoxia 022 Granulomatous lung disease 09/18/2021 Chronic rhinitis 06/10/2021 Schatzki's ring of distal esophagus 06/10/2021 Chronic right-sided heart failure 04/08/2020 Coronary artery disease invo lving crow coronary artery of crow heart without angina pectoris 11/21/2018 Abnormality of [...] and draped in usual sterile manner. 14 Arabic flexible cystoscope inserted into urethra and guided [...] mRNA, LNP-s, No Pre serve, 2-Dose Series ([employer]) 05/14/2020,04/18/2020 H1N1 2009 Influenza, IM 04/22/2009 PPD 08/20/2020,08/11/2020 Pneumococcal Conjugate Vacc, 13 Valent (Prevnar) 11/12/2014 Pneumococcal Polysaccharide PPV23 (Pneumovax) 07/20/2007 SEASONAL INFLUENZA, PF, 6 M & Above, IM , (FLULAVAL or FLUZONE) 11/21/2017,11/29/2016 Season Influenza, Quad, PF, Adjuvanted, 65+ Yrs, IM (FLUAD) 11/29/2019 Seasonal Influenza, Quadriva lent Hd (Fluzone Hd) 04/06/2022,12/09/2020 Seasonal Influenza, Quadriva lent, No Preserve, IM [...] on file documented as of this encounter Miscellaneous Notes * Telephone Encounter - Linette Pope RN - 12/20/2022 10:06 AM EDT Images from the original note were not included. Transitions of Care Note Reason for Referral:Recent Admission Phone visit for follow up: TONA Admitted to: [facility], Date: 12/08/2022 Discharged to: Home with home nursing, Date: 12/19/2022 Diagnosis driving hospitalization: Multiple falls Due to lower extremity weakness, chronic tremor Ambulatory dysfunction Source/Contact: Other daughter SUBJECTIVE Consent: Verbal consent for review of hospital discharge: Yes p REVIEW OF SYSTEMS Patient/Other Reports: Current patient/caregiver problems or concerns: very wobbly today. Productive cough, yellow white sputum on home 02 3 l n/c CV: Denies problems Pulmonary: Cough- productive cough, white yellow sputum Oxygen- 3 L n/c Inhaler -albuterol Chills/Sweats/Fever:Denies chills/sweats Denies fever Appetite:Denies problems such as nausea, vomiting, burning, decreased appetite Current diet: minced and moist no straws Bowel: denies problems date of last BM: 12/19 Bladder: denies problems Wound (If applicable): N/A Pain:Denies Sleep:slept sporatically FUNCTIONAL STATUS: ADL'S: Needs Assistance With:N/A as pt is independent IADL'S: Needs Assistance With:Grocery Shopping Cognitive and Mental Health: denies problems, alert and oriented x 3, and able to communicate, understand instructions, process information. MEDICATION RECONCILIATION Medications: Discharge med list reviewed with patient or caregiver Reports all medications taken as prescribed. ASSESSMENT Medication Risk Assessment: No risks identified Did patient fail outpatient treatment? Yes Discharge instructions available for review? Yes PLAN Symptom Monitoring Interventions:Member/caregiver education - signs and symptoms to contact PrimaryCare (DO NOT DELETE-Three sanderson symptoms patient is to report to PCP) 1. Cough, SOB, Wheezing 2. Swelling of lower legs 3. Fever chills Trimming InspectorWholesale Parts Salesperson of Care interventions/Action Plan: Intervention to address concerns and issues Patient has developed productive cough since discharge.Appointment has been made for him to be seen in Family Practice as an acute visit today and 5 - 7 day follow-up with PCP in place - Date: 12/21/2022 Dr. Sarkar at 1120 Educated on role of TONA completed with patient/caregiver. Educated patient/caregiver on patient right to have input on TONA plan of care. Verification of Home Health/DME if indicated: YES Has home O2, walker and [facility] home health Identified Care Gaps: Yes Care Gaps closed this call: Appointment made or confirmed, Divert post-acute admission, and Transition of Care follow-up communication Re-evaluation of Plan of Care and progress towards goals achievement: Patient education this visit: Verbal, Discussed with daughter, that due to cough he should be seen today at an acute visit. Provider today will determine if hospital follow up visit is needed for tomorrow. . Plan to see Osvaldo Carrera PA-C at 120 today. Linette Kessler, RN documented in this encounter Plan of Treatment Upcoming Encounters Date Type Department Care Team (Late st Contact Info) Description 12/20/2022 1:40 PM EDT Office Visit General Internal Medicine [facility] [address] [facility] [place] [address] Osvaldo Carrera PA-C [address] [facility] [place] [address] 12/21/2022 11:20 AM EDT Office Visit General Internal Medicine [facility] [address] [place] [address] Jennifer Sarkar MD [address] [facility] [place] [address] 03/04/2023 11:00 AM EST Office Visit General Internal Medicine [facility] [address] [place] [address] Jennifer Sarkar MD [address] [facility] [place] [place] [address] 04/12/2023 2:30 PM EST Office Visit Rheumatology [place] [id number] [place] [address] Meryl Santiago CRNP [address] [facility] [place], [place] [address] 05/06/2023 2:30 PM EDT Office Visit Cardiology, [facility] [address] [place] [address] [address] Filemon Ramirez MD [address] [place] [id number] 08/03/2023 9:30 AM EDT Office Visit Urology, [facility] [address] [place] [address] Man Gu MD [address] [place] [address] [place] [address] 10/20/2023 7:00 AM EDT Office Visit Nephrology, [facility] [address] [facility] [place] [address] Yumiko Philippe MD [address] [facility] [place] [address] Scheduled Procedures Name Priority Associated Diagnoses Date/Ti me COLONOSCOPY FLEXIBLE PROXIMAL DIAGNOSTIC Recall History of colon polyps Health Maintenance Due Date Last Done Comments DXA Scan 08/05/2021 08/06/2019, 04/2017, 05/13/2015, Additional history exists COLONOSCOPY-EVERY 5 YRS AGES 18-100 06/03/2022 06/03/2017, 02/01/2007 Depression Screening 09/09/2022 09/09/2021 COVID-19 Vaccine ( season) 2022 05/14/2020, 04/18/2020 Influenza Vaccine (FLU shot) (#1) 2022 04/06/2022, 12/09/2020, 11/29/2019, Additional history exists GFR 12/02/2023 12/01/2022, 03/24, 01/08/2022, Additional history exists TSH 12/02/2023 12/01/2022, 07/23, 05/18/2022, Additional history exists Albumin/Creatinine Ratio 09/09/2024 09/09/2021, 09/22 DTaP,Tdap,and Td Vaccines (2 - Td or Tdap) 07/19/2028 07/19/2018, 12/14/2007 Pneumococcal Vaccine: 65+ Years Completed 11/12/2014, 07/20/2007, 02/25/2002 Zoster Vaccines Completed 01/28/2020, 09/17/2019 VITAMIN D LEVEL ONCE IN A LIFETIME-USE SMARTSET# [id number] Completed 12/01/2022, 09/09/2021, 04/08/2021, Additional history exists [...] this encounter Medical Devices Implanted Type Area Commissioning Engineer Device Identifier Shelf Expiration Date Model / Serial / Lot Lens Intraoc 23.0 - [id number] - [id number] Implanted:Qty: 1 on 12/21/2016 by Raj Bernard MD at OR [facility] Left: Eye BAUSCH & LOMB 06/20/2021 [id number] / [id number] / Lens Intraoc 22.0 - [id number] - [id number] Implanted:Qty: 1 on 01/06/2017 by Raj Bernard MD at OR [facility] Right: Eye BAUSCH & LOMB 08/20/2021 [id number] / [id number] / [id number] documented as of this encounter Advance Directives [...] the patient have Health Care Power of Psych Assistant? No Care Teams Stock Preparation Operator Relationship Specialty Start Date End Date Jennifer Sarkar MD [address] [place] [address], [place] [address] PCP - General Internal Medicine 10/06/20 documented as of this encounter
--- OUTSIDE RECORDS SUMMARY | 2023-01-05 01:50 | External Medical Summary | Summary of Care ---
Author Name Unknown Organization [facility] Address [address] [place] [address] Phone [phone] Care Team Providers Care Ruby Rails Developer Name Role Phone Jennifer Sarkar MD Primary Care Provider [phone] Reason for Visit * Reason Comments Cough [...] PM EDT Office Visit General Internal Medicine [facility] [address] [facility] [place] [address] Osvaldo Carrera PA-C [address] [facility] [place] [address] Hospital discharge follow-up*; Aspiration into airway, subsequent encounter; Chronic respiratory failure with hypoxia (HCC); Granulomatous lung disease (HCC); Restrictive lung disease; Severe obstructive sleep apnea; Chronic right-sided heart failure (HCC); Coronary artery disease involving twin hills coronary artery of twin hills heart without angina pectoris; Essential tremor Allergies [...] Do not crush, split or chew the tablet--12/21/2021([facility] EGD 08/21/21)--chg timing 05/18/2022 90 Tablet 3 3 Active Additional Information Patient taking differently: 40 mgOral HS, 30 minutes before the first meal of the day. Do not crush, split or chew the tablet--12/21/2021([facility] EGD 08/21/21)--chg timing 05/18/2022, Reported on [...] right-sided heart failure (HCC),Coronary artery disease involving twin hills coronary artery of twin hills heart without angina pectoris,Bilateral leg edema TAKE [...] failure 04/08/2020 Coronary artery disease invo lving twin hills coronary artery of twin hills heart without angina pectoris 11/21/2018 Abnormality of [...] and draped in usual sterile manner. 14 Bengali flexible cystoscope inserted into urethra and guided [...] State [place] [address] [place] [address] Jennifer Sarkar MD [address] [place] [address] 03/04/2023 11:00 AM EST Office Visit General Internal Medicine [facility] [address] [facility] [place] [address] Jennifer Sarkar MD [address] [facility] [place] [address] 04/12/2023 2:30 PM EST Office Visit Rheumatology [facility] [address] [facility] [place] [address] Meryl Santiago CRNP [address] [facility] [place] [address] 05/06/2023 2:30 PM EDT Office Visit Cardiology, [facility] [address] [place] [address] Filemon Ramirez MD 132 [place] [address] 08/03/2023 9:30 AM EDT Office Visit Urology, [facility] [address] [place] [address] Man Gu MD [address] [facility] [address] [place] [address] 10/20/2023 7:00 AM EDT Office Visit Nephrology, [facility] [address] [facility] [place] [address] Yumiko Philippe MD [address] [facility] [place], [place] [address] Scheduled Procedures Name Priority Associated Diagnoses Date/Ti me COLONOSCOPY FLEXIBLE PROXIMAL DIAGNOSTIC Recall History of colon polyps Health Maintenance Due Date Last Done Comments DXA Scan 08/05/2021 08/06/2019, 04/0 04/2017, 05/13/2015, Additional history exists COLONOSCOPY-EVERY 5 YRS AGES 18-100 06/03/2022 06/03/2017, 02/01/2007 Depression Screening 09/09/2022 09/09/2021 COVID-19 Vaccine (3 - 2023-24 season) 2022 05/14/2020, 04/18/2020 GFR 12/02/2023 12/01/2022, [...] D LEVEL ONCE IN A LIFETIME-USE SMARTSET# [id number] Completed 12/01/2022, 09/09/2021, 04/08/2021, Additional history exists [...] this encounter Medical Devices Implanted Type Area Construction Stonemason Device Identifier Shelf Expiration Date Model / Serial / Lot Lens Intraoc 23.0 - [id number] - [id number] Implanted:Qty: 1 on 12/21/2016 by Raj Bernard MD at OR [facility] Left: Eye BAUSCH & LOMB 06/20/2021 [id number] / [id number] / Lens Intraoc 22.0 - [id number] - [id number] Implanted:Qty: 1 on 01/06/2017 by Raj Bernard MD at OR [facility] Right: Eye BAUSCH [employer] LOMB 08/20/2021 [id number] / [id number] / [id number] documented as of this encounter Procedures Procedure Name Priority Date/Time Associated Diagnosis Comments RESPIRATORY PATHOGEN PANEL, PCR Routine 12/20/2022 2:59 PM EDT Aspiration into airway, subsequent encounter documented in this encounter Results * (ABNORMAL) RESPIRATORY PATHOGEN PANEL, PCR (12/20/2022 2:59 PM EDT) Adenovirus by PCR Negative Negative 023 10:11 PM EDT [facility] Coronavirus 229E by PCR Negative Negative 12/20/2022 10:11 PM EDT [facility] Coronavirus HKU1 by PCR Negative Negative 12/20/2022 10:11 PM EDT [facility] Coronavirus NL63 by PCR Negative Negative 12/20/2022 10:11 PM EDT [facility] Coronavirus OC43 by PCR Negative Negative 12/20/2022 10:11 PM EDT [facility] Coronavirus SARS-CoV-2 by PCR Negative Negative 12/20/2022 10:11 PM EDT [facility] Human Metapneumovirus by PCR Negative Negative 12/20/2022 10:11 PM EDT [facility] Rhinovirus/Enterov irus by PCR Positive(A) Negative 12/20/2022 10:11 PM EDT [facility] Comment:Rhinovirus/Enterovir us detected by PCR (amplified probe). Influenza A Virus by PCR Negative Negative 12/20/2022 10:11 PM EDT [facility] Influenza B Virus by PCR Negative Negative 12/20/2022 10:11 PM EDT [facility] Parainfluenza Virus 1 by PCR Negative Negative 12/20/2022 10:11 PM EDT [facility] Parainfluenza Virus 2 by PCR Negative Negative 12/20/2022 10:11 PM EDT [facility] Parainfluenza Virus 3 by PCR Negative Negative 12/20/2022 10:11 PM EDT [facility] Parainfluenza Virus 4 by PCR Negative Negative 12/20/2022 10:11 PM EDT [facility] Respiratory Syncytial Virus by PCR Negative Negative 12/20/2022 10:11 PM EDT [facility] Bordetella pertussis by PCR Negative Negative 12/20/2022 10:11 PM EDT [facility] Chlamydia pneumoniae by PCR Negative Negative 12/20/2022 10:11 PM EDT [facility] Mycoplasma pneumoniae by PCR Negative Negative 12/20/2022 10:11 PM EDT [facility] Bordetella parapertussis by PCR Negative Negative 12/20/2022 10:11 PM EDT [facility] Comment: The primers that detect Rhinovirus may cross react with some Enterorviruses. The validation of bronchial specimens, tracheal aspirates, and throats for this assay was developed and performance characteristics determined by [employer]. The validation of alternate specimen types has not been cleared or approved by the U.S. Food and Drug Administration (FDA). It has been determined that such clearance or approval is not necessary. Upper Respiratory Nasopharyngeal swab / Unknown Non-blood Collection / Unknown 12/20/2022 2:59 PM EDT 12/20/2022 3:02 PM EDT Osvaldo Carrera PA-C LAB MICRO - GENERA L ORDERABLES Performing Organization Address City/State/[facility] Co de Phone Number [facility] [address] [place] [address] documented in this encounter Visit Diagnoses Diagnosis Hospital discharge [...] heart failure, unspecified Coronary artery disease involving twin hills coronary artery of twin hills heart without angina pectoris Essential tremor Essential [...] the patient have Health Care Power of Steel Die Printer? No Care Teams Ruby Rails Developer Relationship Specialty Start Date End Date Jennifer Sarkar MD [address] [place] [address] PCP - General Internal Medicine 10/06/20 documented as of this encounter
[2023-01-05] MEDS: PANTOprazole 40 MG TAB PO SCH (05:21)
[2023-01-05] MEDS: LEVOTHYROXINE SODIUM 112 MCG TABLET PO SCH (05:21)
[2023-01-05] MEDS: ACETAMINOPHEN 500 MG TAB PO SCH ×3 (05:21→22:06)
[2023-01-05] MEDS: Albuterol HFA 8 GM Inhaler (Combivent Respimat P&T Subs) INH SCH ×4 (07:37→19:45)
[2023-01-05] MEDS: Ipratropium HFA Inhaler (Combivent Respimat P&T Subs) INH SCH ×4 (07:38→19:44)
[2023-01-05] MEDS: LIDOCAINE 5% 1 PATCH TD SCH (08:09)
[2023-01-05] MEDS: CLOPIDOGREL BISULFATE 75 MG TAB PO SCH (08:09)
[2023-01-05] MEDS: MONTELUKAST SODIUM 10 MG TABLET PO SCH (08:09)
[2023-01-05] MEDS: PROPRANOLOL HCL 20 MG TAB PO SCH ×3 (08:09→19:46)
[2023-01-05] MEDS: CITALOPRAM 20 MG TAB PO SCH (08:09)
[2023-01-05] MEDS: ROSUVASTATIN CALCIUM 5 MG TAB PO SCH (08:09)
[2023-01-05] MEDS: FUROSEMIDE 40 MG TAB PO SCH (08:09)
[2023-01-05] MEDS: HEPARIN SOD 5,000 UNIT/0.5 ML VIAL SQ SCH ×2 (08:10→19:45)
--- NOTE | 2023-01-05 18:54 | Hospitalist Progress Note ---
Date of Service January 05, 2023 Assessment & Plan (1) Ambulatory dysfunction: Plan: 82-year-old male with past medical significant for chronic respiratory with hypoxia on home oxygen, hypothyroidism, hyperlipidemia, history of hypercalcemia, congenital anomaly of lung, granulomatous lung disease, sleep apnea, restrictive lung disease, elevated hemidiaphragm, history of cad s/p stent hypertension, chronic right-sided heart failure, Schatzki's ring of the di stal esophagus, idiopathic scoliosis, osteoporosis, essential tremor, depression, abnormality of gait presents from home with fall. Ambulatory dysfunction Mechanical fall S4 vertebral fracture --Lumbar CT - Severe levoconvex scoliosis of the lumbar spine. No lumbar spine fracture. --Pelvic CT - nondisplaced fracture of S4 vertebral body Pain control with lidocaine patch, scheduled Tylenol and PRN oxycodone Spine Ortho consulted, nonoperative management recommended, PT/OT Consult orthotics for brace Continue PT OT Pete as able Chronic respiratory failure with hypoxia on home oxygen Restrictive lung disease COPD Continue oxygen Home inhalers History of CAD s/p stent On Plavix, statin and beta-james Essential tremor On propranolol History of right-sided heart failure On Lasix Monitor for volume overload Hyperlipidemia Continue statin GERD Continue Protonix Hypothyroidism Continue levothyroxine Depression Continue Duloxetine and citalopram History of Schatzki's of distal esophagus States it was stretched twice Monitor for dysphagia Had a video swallow last admission and was deemed high risk for aspiration Minced and moist diet with small portions, no straws. DVT Px SQ heparin Disposition Rehab when accepted Admission and Anticipated Discharge Date Admission Date: January 03, 2023 Subjective Patient is seen and examined at bedside States having back pain associated with ambulatory dysfunction No other complaints Denies any chest pain, dyspnea, dizziness Review of Systems Review of Systems: All systems reviewed & are unremarkable except as noted in Subjective Physical Exam Physical Exam: Physical Exam: Vitals signs as noted above General Appearance:Moderately built and nourished, no apparent distress Head: normocephalic, Atraumatic Eyes: normal inspection, EOMI Neck: supple, Trachea midline Respiratory/Chest: Decreased breath sounds, CTA, No accessory muscle use Cardiovascular: S1, S2, No murmur Abdomen/GI:Soft, Non tender, Bowel sounds present Extremities/Musculoskeletal:normal inspection, no edema Neurologic/Psych:AAOX3, grossly no focal neurological deficits, chronic tremor, slow to respond Skin: normal color, warm Results & Data Results & Data Vital Signs (Past 12 Hours) Vital Signs Temp Pulse Resp BP BP Pulse Ox O2 Del Method 01/05/23 15:35 57 L 18 95 Nasal Cannula 01/05/23 15:25 36.7 C 58 L 18 129/78 94 Nasal Cannula 01/05/23 13:18 67 117/76 01/05/23 11:49 72 18 91 Nasal Cannula 01/05/23 08:04 36.4 C L 62 20 118/78 91 Nasal Cannula 01/05/23 07:38 104 H 18 91 Nasal Cannula 01/05/23 07:30 Nasal Cannula O2 Flow Rate 01/05/23 15:35 3 01/05/23 15:25 3 01/05/23 13:18 01/05/23 11:49 3 01/05/23 08:04 3 01/05/23 07:38 3 01/05/23 07:30 3
[2023-01-05] MEDS: DULoxetine HCL 30 MG CAP PO SCH (19:47)
[2023-01-06] MEDS: oxyCODONE HCL IR 5 MG TAB (IMMEDIATE RELEASE) PO PRN ×4 (01:58→22:28)
[2023-01-06] MEDS: ACETAMINOPHEN 500 MG TAB PO SCH ×3 (05:20→21:13)
[2023-01-06] MEDS: PANTOprazole 40 MG TAB PO SCH (05:20)
[2023-01-06] MEDS: LEVOTHYROXINE SODIUM 112 MCG TABLET PO SCH (05:20)
[2023-01-06] MEDS: Ipratropium HFA Inhaler (Combivent Respimat P&T Subs) INH SCH ×4 (07:34→20:09)
[2023-01-06] MEDS: Albuterol HFA 8 GM Inhaler (Combivent Respimat P&T Subs) INH SCH ×4 (07:35→20:09)
[2023-01-06 07:57] LABS: BUN Creatinine Ratio 14.6 (10-20); Calcium 9.5 mg/dl (8.6-10.3); Creatinine Clr Calc Pharmacy 61.5 ml/min; Est GFR (African American) 96.1 ml/min; Est GFR (Non-African American) 82.9 ml/min; Potassium 4.1 mmol/L (3.5-5.1)
[2023-01-06] MEDS: LIDOCAINE 5% 1 PATCH TD SCH (08:33)
[2023-01-06] MEDS: PROPRANOLOL HCL 20 MG TAB PO SCH ×3 (08:37→21:12)
[2023-01-06] MEDS: FUROSEMIDE 40 MG TAB PO SCH (08:37)
[2023-01-06] MEDS: CITALOPRAM 20 MG TAB PO SCH (08:37)
[2023-01-06] MEDS: CLOPIDOGREL BISULFATE 75 MG TAB PO SCH (08:37)
[2023-01-06] MEDS: ROSUVASTATIN CALCIUM 5 MG TAB PO SCH (08:38)
[2023-01-06] MEDS: MONTELUKAST SODIUM 10 MG TABLET PO SCH (08:38)
[2023-01-06] MEDS: HEPARIN SOD 5,000 UNIT/0.5 ML VIAL SQ SCH ×2 (08:38→21:13)
--- NOTE | 2023-01-06 17:39 | Hospitalist Progress Note ---
Date of Service January 06, 2023 Assessment & Plan (1) Ambulatory dysfunction: Plan: 82-year-old male with past medical significant for chronic respiratory with hypoxia on home oxygen, hypothyroidism, hyperlipidemia, history of hypercalcemia, congenital anomaly of lung, granulomatous lung disease, sleep apnea, restrictive lung disease, elevated hemidiaphragm, history of cad s/p stent hypertension, chronic right-sided heart failure, Schatzki's ring of the di stal esophagus, idiopathic scoliosis, osteoporosis, essential tremor, depression, abnormality of gait presents from home with fall. Ambulatory dysfunction Mechanical fall S4 vertebral fracture --Lumbar CT - Severe levoconvex scoliosis of the lumbar spine. No lumbar spine fracture. --Pelvic CT - nondisplaced fracture of S4 vertebral body Pain control with lidocaine patch, scheduled Tylenol and PRN oxycodone Spine Ortho consulted, nonoperative management recommended, PT/OT Consult orthotics for brace Continue PT OT Waiting for rehab placement Case management to help with discharge planning Chronic respiratory failure with hypoxia on home oxygen Restrictive lung disease COPD Continue oxygen Home inhalers History of CAD s/p stent On Plavix, statin and beta-james Essential tremor On propranolol History of right-sided heart failure On Lasix Monitor for volume overload Hyperlipidemia Continue statin GERD Continue Protonix Hypothyroidism Continue levothyroxine Depression Continue Duloxetine and citalopram History of Schatzki's of distal esophagus States it was stretched twice Monitor for dysphagia Had a video swallow last admission and was deemed high risk for aspiration Minced and moist diet with small portions, no straws. DVT Px SQ heparin Disposition Rehab when accepted Admission and Anticipated Discharge Date Admission Date: January 03, 2023 Subjective Patient is seen and examined at bedside Reports back pain, controlled Waiting for rehab placement Denies any chest pain, dyspnea, dizziness Review of Systems Review of Systems: All systems reviewed & are unremarkable except as noted in Subjective Physical Exam Physical Exam: Physical Exam: Vitals signs as noted above General Appearance:Moderately built and nourished, no apparent distress Head: normocephalic, Atraumatic Eyes: normal inspection, EOMI Neck: supple, Trachea midline Respiratory/Chest: Decreased breath sounds, CTA, No accessory muscle use Cardiovascular: S1, S2, No murmur Abdomen/GI:Soft, Non tender, Bowel sounds present Extremities/Musculoskeletal:normal inspection, no edema Neurologic/Psych:AAOX3, grossly no focal neurological deficits, chronic tremor, slow to respond Skin: normal color, warm Results & Data Results & Data Vital Signs (Past 12 Hours) Vital Signs Temp Pulse Pulse Resp BP BP Pulse Ox 01/06/23 15:36 64 18 90 01/06/23 14:30 36.4 C L 67 18 116/77 92 01/06/23 10:23 62 18 92 01/06/23 08:34 63 93 01/06/23 07:38 36.5 C 59 L 17 103/67 91 01/06/23 07:35 01/06/23 07:35 67 18 90 O2 Del Method O2 Flow Rate 01/06/23 15:36 Nasal Cannula 3 01/06/23 14:30 Nasal Cannula 3 01/06/23 10:23 Nasal Cannula 3 01/06/23 08:34 Nasal Cannula 3 01/06/23 07:38 Nasal Cannula 3 01/06/23 07:35 Nasal Cannula 3 01/06/23 07:35 Nasal Cannula 3 Laboratory Results [facility] [place] 01/06/23 07:25 Sodium 137 Potassium 4.1 Chloride 99 Carbon Dioxide 35 H BUN 12 Creatinine 0.82 Glucose 105 H Calcium 9.5
[2023-01-06] MEDS: DULoxetine HCL 30 MG CAP PO SCH (21:13)
[2023-01-07] MEDS: oxyCODONE HCL IR 5 MG TAB (IMMEDIATE RELEASE) PO PRN ×5 (02:22→23:08)
[2023-01-07] MEDS: LEVOTHYROXINE SODIUM 112 MCG TABLET PO SCH (06:19)
[2023-01-07] MEDS: ACETAMINOPHEN 500 MG TAB PO SCH ×3 (06:19→20:57)
[2023-01-07] MEDS: PANTOprazole 40 MG TAB PO SCH (06:20)
[2023-01-07] MEDS: Ipratropium HFA Inhaler (Combivent Respimat P&T Subs) INH SCH ×4 (07:06→19:34)
[2023-01-07] MEDS: Albuterol HFA 8 GM Inhaler (Combivent Respimat P&T Subs) INH SCH ×4 (07:06→19:34)
[2023-01-07] MEDS: FUROSEMIDE 40 MG TAB PO SCH (08:35)
[2023-01-07] MEDS: CLOPIDOGREL BISULFATE 75 MG TAB PO SCH (08:35)
[2023-01-07] MEDS: MONTELUKAST SODIUM 10 MG TABLET PO SCH (08:35)
[2023-01-07] MEDS: PROPRANOLOL HCL 20 MG TAB PO SCH ×3 (08:35→20:57)
[2023-01-07] MEDS: ROSUVASTATIN CALCIUM 5 MG TAB PO SCH (08:35)
[2023-01-07] MEDS: CITALOPRAM 20 MG TAB PO SCH (08:36)
[2023-01-07] MEDS: HEPARIN SOD 5,000 UNIT/0.5 ML VIAL SQ SCH ×2 (08:36→20:58)
[2023-01-07] MEDS: LIDOCAINE 5% 1 PATCH TD SCH (08:36)
--- NOTE | 2023-01-07 17:43 | Hospitalist Progress Note ---
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 Ambulatory dysfunction Mechanical fall S4 vertebral fracture --Lumbar CT - Severe levoconvex scoliosis of the lumbar spine. No lumbar spine fracture. --Pelvic CT - nondisplaced fracture of S4 vertebral body Pain control with lidocaine patch, scheduled Tylenol and PRN oxycodone Spine Ortho consulted, nonoperative management recommended, PT/OT Consult orthotics for brace Continue PT OT Insurance denied for acute rehab Plan to discharge to SNF when accepted Chronic respiratory failure with hypoxia on home oxygen Restrictive lung disease COPD Continue oxygen Home inhalers History of CAD s/p stent On Plavix, statin and beta-james Essential tremor On propranolol History of right-sided heart failure On Lasix Monitor for volume overload Hyperlipidemia Continue statin GERD Continue Protonix Hypothyroidism Continue levothyroxine Depression Continue Duloxetine and citalopram History of Schatzki's of distal esophagus States it was stretched twice Monitor for dysphagia Had a video swallow last admission and was deemed high risk for aspiration Minced and moist diet with small portions, no straws. DVT Px SQ heparin Disposition SNF as able Admission and Anticipated Discharge Date Admission Date: January 03, 2023 Subjective Patient is seen and examined at bedside No new complaints Back pain slightly better today Denies any chest pain, dyspnea, dizziness Waiting for rehab placement Review of Systems Review of Systems: All systems reviewed & are unremarkable except as noted in Subjective Physical Exam Physical Exam: Physical Exam: Vitals signs as noted above General Appearance:Moderately built and nourished, no apparent distress Head: normocephalic, Atraumatic Eyes: normal inspection, EOMI Neck: supple, Trachea midline Respiratory/Chest: Decreased breath sounds, CTA, No accessory muscle use Cardiovascular: S1, S2, No murmur Abdomen/GI:Soft, Non tender, Bowel sounds present Extremities/Musculoskeletal:normal inspection, no edema Neurologic/Psych:AAOX3, grossly no focal neurological deficits, chronic tremor, slow to respond Skin: normal color, warm Results & Data Results & Data Vital Signs (Past 12 Hours) Vital Signs Temp Pulse Pulse Resp BP BP Pulse Ox 01/07/23 16:21 64 18 93 01/07/23 15:13 36.5 C 65 16 121/57 L 91 01/07/23 10:47 60 17 92 01/07/23 07:52 36.3 C L 62 18 110/71 96 01/07/23 07:50 01/07/23 07:06 66 20 92 O2 Del Method O2 Flow Rate 01/07/23 16:21 Nasal Cannula 3 01/07/23 15:13 Nasal Cannula 3 01/07/23 10:47 Nasal Cannula 3 01/07/23 07:52 Nasal Cannula 3 01/07/23 07:50 Nasal Cannula 3 01/07/23 07:06 Nasal Cannula 3
[2023-01-07] MEDS: DULoxetine HCL 30 MG CAP PO SCH (20:58)
[2023-01-08] MEDS: ACETAMINOPHEN 500 MG TAB PO SCH ×3 (04:44→21:02)
[2023-01-08] MEDS: LEVOTHYROXINE SODIUM 112 MCG TABLET PO SCH (04:44)
[2023-01-08] MEDS: oxyCODONE HCL IR 5 MG TAB (IMMEDIATE RELEASE) PO PRN ×5 (04:44→22:06)
[2023-01-08] MEDS: PANTOprazole 40 MG TAB PO SCH (04:44)
[2023-01-08] MEDS: Ipratropium HFA Inhaler (Combivent Respimat P&T Subs) INH SCH ×4 (05:24→19:36)
[2023-01-08] MEDS: Albuterol HFA 8 GM Inhaler (Combivent Respimat P&T Subs) INH SCH ×4 (05:24→19:35)
[2023-01-08] MEDS: CLOPIDOGREL BISULFATE 75 MG TAB PO SCH (09:26)
[2023-01-08] MEDS: CITALOPRAM 20 MG TAB PO SCH (09:26)
[2023-01-08] MEDS: LIDOCAINE 5% 1 PATCH TD SCH (09:26)
[2023-01-08] MEDS: FUROSEMIDE 40 MG TAB PO SCH (09:26)
[2023-01-08] MEDS: HEPARIN SOD 5,000 UNIT/0.5 ML VIAL SQ SCH ×2 (09:27→20:57)
[2023-01-08] MEDS: MONTELUKAST SODIUM 10 MG TABLET PO SCH (09:27)
[2023-01-08] MEDS: ROSUVASTATIN CALCIUM 5 MG TAB PO SCH (09:27)
[2023-01-08] MEDS: PROPRANOLOL HCL 20 MG TAB PO SCH ×3 (09:27→21:01)
--- NOTE | 2023-01-08 17:59 | Hospitalist Progress Note ---
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 Ambulatory dysfunction Mechanical fall S4 vertebral fracture --Lumbar CT - Severe levoconvex scoliosis of the lumbar spine. No lumbar spine fracture. --Pelvic CT - nondisplaced fracture of S4 vertebral body Pain control with lidocaine patch, scheduled Tylenol and PRN oxycodone Spine Ortho consulted, nonoperative management recommended, PT/OT Consult orthotics for brace Continue PT OT Insurance denied for acute rehab Plan to discharge to SNF when accepted Fall precautions Chronic respiratory failure with hypoxia on home oxygen Restrictive lung disease COPD Continue oxygen Home inhalers History of CAD s/p stent On Plavix, statin and beta-james Essential tremor On propranolol History of right-sided heart failure On Lasix Monitor for volume overload Hyperlipidemia Continue statin GERD Continue Protonix Hypothyroidism Continue levothyroxine Depression Continue Duloxetine and citalopram History of Schatzki's of distal esophagus States it was stretched twice Monitor for dysphagia Had a video swallow last admission and was deemed high risk for aspiration Minced and moist diet with small portions, no straws. DVT Px SQ heparin Disposition SNF as able Admission and Anticipated Discharge Date Admission Date: January 03, 2023 Subjective Patient is seen and examined at bedside Back pain is controlled Denies any chest pain, dyspnea, dizziness Waiting for rehab placement Review of Systems Review of Systems: All systems reviewed & are unremarkable except as noted in Subjective Physical Exam Physical Exam: Physical Exam: Vitals signs as noted above General Appearance:Moderately built and nourished, no apparent distress Head: normocephalic, Atraumatic Eyes: normal inspection, EOMI Neck: supple, Trachea midline Respiratory/Chest: Decreased breath sounds, CTA, No accessory muscle use Cardiovascular: S1, S2, No murmur Abdomen/GI:Soft, Non tender, Bowel sounds present Extremities/Musculoskeletal:normal inspection, no edema Neurologic/Psych:AAOX3, grossly no focal neurological deficits, chronic tremor, slow to respond Skin: normal color, warm Results & Data Results & Data Vital Signs (Past 12 Hours) Vital Signs Temp Pulse Pulse Resp BP BP Pulse Ox 01/08/23 16:00 60 16 91 01/08/23 15:54 36.1 C L 90 16 127/74 91 01/08/23 13:47 01/08/23 11:32 58 L 12 88 L 01/08/23 07:22 36.5 C 60 18 121/89 96 O2 Del Method O2 Flow Rate 01/08/23 16:00 Nasal Cannula 2 01/08/23 15:54 Nasal Cannula 2 01/08/23 13:47 Nasal Cannula 3 01/08/23 11:32 Nasal Cannula 2.5 01/08/23 07:22 Nasal Cannula 2
[2023-01-08] MEDS: DULoxetine HCL 30 MG CAP PO SCH (20:59)
[2023-01-09] MEDS: oxyCODONE HCL IR 5 MG TAB (IMMEDIATE RELEASE) PO PRN ×3 (02:20→14:46)
[2023-01-09] MEDS: ACETAMINOPHEN 500 MG TAB PO SCH ×2 (05:58→14:46)
[2023-01-09] MEDS: PANTOprazole 40 MG TAB PO SCH (05:58)
[2023-01-09] MEDS: LEVOTHYROXINE SODIUM 112 MCG TABLET PO SCH (05:58)
[2023-01-09] MEDS: Ipratropium HFA Inhaler (Combivent Respimat P&T Subs) INH SCH ×2 (07:23→10:57)
[2023-01-09] MEDS: Albuterol HFA 8 GM Inhaler (Combivent Respimat P&T Subs) INH SCH ×2 (07:23→10:57)
[2023-01-09] MEDS: CLOPIDOGREL BISULFATE 75 MG TAB PO SCH (08:08)
[2023-01-09] MEDS: PROPRANOLOL HCL 20 MG TAB PO SCH ×2 (08:08→14:46)
[2023-01-09] MEDS: FUROSEMIDE 40 MG TAB PO SCH (08:08)
[2023-01-09] MEDS: CITALOPRAM 20 MG TAB PO SCH (08:08)
[2023-01-09] MEDS: ROSUVASTATIN CALCIUM 5 MG TAB PO SCH (08:08)
[2023-01-09] MEDS: MONTELUKAST SODIUM 10 MG TABLET PO SCH (08:08)
[2023-01-09] MEDS: LIDOCAINE 5% 1 PATCH TD SCH (08:09)
[2023-01-09] MEDS: HEPARIN SOD 5,000 UNIT/0.5 ML VIAL SQ SCH (08:11)
--- NOTE | 2023-01-09 13:28 | Hospitalist Progress Note ---
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 Ambulatory dysfunction Mechanical fall S4 vertebral fracture --Lumbar CT - Severe levoconvex scoliosis of the lumbar spine. No lumbar spine fracture. --Pelvic CT - nondisplaced fracture of S4 vertebral body Pain control with lidocaine patch, scheduled Tylenol and PRN oxycodone Spine Ortho consulted, nonoperative management recommended, PT/OT Consult orthotics for brace Continue PT OT Insurance denied for acute rehab Fall precautions SNF today Chronic respiratory failure with hypoxia on home oxygen Restrictive lung disease COPD Continue oxygen Home inhalers History of CAD s/p stent On Plavix, statin and beta-james Essential tremor On propranolol History of right-sided heart failure On Lasix Monitor for volume overload Hyperlipidemia Continue statin GERD Continue Protonix Hypothyroidism Continue levothyroxine Depression Continue Duloxetine and citalopram History of Schatzki's of distal esophagus States it was stretched twice Monitor for dysphagia Had a video swallow last admission and was deemed high risk for aspiration Minced and moist diet with small portions, no straws. DVT Px SQ heparin Disposition SNF Admission and Anticipated Discharge Date Admission Date: January 03, 2023 Subjective Patient is seen and examined at bedside No new complaints Back pain is controlled Denies any chest pain, dyspnea, dizziness Plan to discharge to rehab today Review of Systems Review of Systems: All systems reviewed & are unremarkable except as noted in Subjective Physical Exam Physical Exam: Physical Exam: Vitals signs as noted above General Appearance:Moderately built and nourished, no apparent distress Head: normocephalic, Atraumatic Eyes: normal inspection, EOMI Neck: supple, Trachea midline Respiratory/Chest: Decreased breath sounds, CTA, No accessory muscle use Cardiovascular: S1, S2, No murmur Abdomen/GI:Soft, Non tender, Bowel sounds present Extremities/Musculoskeletal:normal inspection, no edema Neurologic/Psych:AAOX3, grossly no focal neurological deficits, chronic tremor, slow to respond Skin: normal color, warm Results & Data Results & Data Vital Signs (Past 12 Hours) Vital Signs Temp Pulse Pulse Resp BP Pulse Ox O2 Del Method 01/09/23 11:01 69 14 89 L Nasal Cannula 01/09/23 09:01 Nasal Cannula 01/09/23 07:41 36.4 C L 57 L 16 131/78 92 Nasal Cannula 01/09/23 07:23 52 L 14 92 Nasal Cannula O2 Flow Rate 01/09/23 11:01 4 01/09/23 09:01 3 01/09/23 07:41 3 01/09/23 07:23 3
--- NOTE | 2023-01-09 13:37 | Discharge Summary ---
Date of Service January 09, 2023 Admission HPI Per Admitting Provider 82-year-old male with past medical significant for chronic respiratory failure with hypoxia on home oxygen, hypothyroidism, hyperlipidemia, history of hypercalcemia, congenital anomaly of lung, granulomatous lung disease, sleep apnea, restrictive lung disease, elevated hemidiaphragm, history of cad s/p stent hypertension, chronic right-sided heart failure, Schatzki's ring of the distal esophagus, idiopathic scoliosis, osteoporosis, essential tremor, depression, abnormality of gait presents from home with fall. Seems patient was taking his dog out in the yard when he tripped over his oxygen tubing and fell landing on the right hip and low back and also hit his right side of the head. No loss of consciousness. No head injury. Having severe pain in his tailbone region. His 2 neighbors helped him to get up. In the ER he was having ambulatory dysfunction. Denies any chest pain. Has cough. Currently denies any shortness of breath. Afebrile. No nausea. No headaches. Vision is okay. Normal bowel and bladder movements. Patient was recently in the hospital with a ambulatory dysfunction dysfunction and fall but insurance denied SNF placement. Past medical history. As mentioned above Past surgical history. Left heart catheterization. EGD. Colonoscopy. Lithotripsy. Bilateral hernia repair. Tonsillectomy. Cataract surgery. Social history. Lives alone. Quit cigar 1961. Alcohol rarely. No drug use. Family history. Mother has diabetes. Aunt has cancer. Admission Exam Per Admitting Provider General- Not in distress Head- atraumatic Eyes- PERRL. ENT- oropharynx clear Neck- supple, no JVD. Lungs- clear to auscultation no wheezing or crackles. Heart- regular rhythm; no murmur, no gallop. Abdomen- normal bowel sounds, soft, nontender, no distension. Extremities- b/l lower extremity =1 edema present. No erythema seen. Neuro- alert, oriented x 3; PERRL, no facial palsy; no dysarthria; moves extremities. Skin- warm & dry Principal Diagnosis Ambulatory dysfunction Recurrent falls S4 vertebral fracture Chronic respiratory failure with hypoxia on home oxygen Restrictive lung disease COPD Essential tremor Chronic Dysphagia Discharge Data Allergies Allergy/AdvReac Type Severity Reaction Status Date / Time tramadol AdvReac Intermediate Hallucinati Verified 01/02/23 20:55 ng grapefruit AdvReac Unknown WAS TOLD Verified 01/02/23 20:55 NOT TO TAKE BECAUSE OF CHOLESTROL PILL. Consultations 01/02/23 22:53 ED Decision to Admit Stat 01/03/23 09:01 Consult Orthopedic Spine Surgery Routine Procedures Performed Laboratory Results WBC 10.75 K/ul (4.8-10.8) 01/03/23 07:13 RBC 4.40 M/uL (4.70-6.10) L 01/03/23 07:13 Hgb 13.3 g/dl (14.0-18.0) L 01/03/23 07:13 Hct 41.2 % (42.0-52.0) L 01/03/23 07:13 MCV 93.6 fL (80.0-100.0) 01/03/23 07:13 MCH 30.2 pg (25.0-34.0) 01/03/23 07:13 MCHC 32.3 g/dL (32.0-36.0) 01/03/23 07:13 RDW Std Deviation 50.3 fL (36.4-46.3) H 01/03/23 07:13 RDW Coeff of Mannie 14.6 % (11.5-14.5) H 01/03/23 07:13 Plt Count 139 K/uL (130-400) 01/03/23 07:13 MPV 10.2 fL (9.4-12.4) 01/03/23 07:13 Immature Gran % (Auto) 0.7 % 01/03/23 07:13 Neut % (Auto) 59.5 % 01/03/23 07:13 Lymph % (Auto) 22.1 % 01/03/23 07:13 Mclean % (Auto) 14.5 % 01/03/23 07:13 Eos % (Auto) 2.8 % 01/03/23 07:13 Baso % (Auto) 0.4 % 01/03/23 07:13 Neut # (Auto) 6.39 K/uL (1.40-6.50) 01/03/23 07:13 Lymph # (Auto) 2.38 K/uL (1.20-3.40) 01/03/23 07:13 Mclean # (Auto) 1.56 K/uL (0.11-0.59) H 01/03/23 07:13 Eos # (Auto) 0.30 K/uL (0.00-0.50) 01/03/23 07:13 Baso # (Auto) 0.04 K/uL (0.00-0.20) 01/03/23 07:13 Immature Gran # (Auto) 0.08 K/uL (0.01-0.20) 01/03/23 07:13 Sodium 137 mmol/L (136-145) 01/06/23 07:25 Potassium 4.1 mmol/L (3.5-5.1) 01/06/23 07:25 Chloride 99 mmol/L (98-107) 01/06/23 07:25 Carbon Dioxide 35 mmol/L (21-32) H 01/06/23 07:25 Anion Gap 3 (3-11) 01/06/23 07:25 BUN 12 mg/dl (6-23) 01/06/23 07:25 Creatinine 0.82 mg/dl (0.6-1.4) 01/06/23 07:25 Est Cr Clr Drug Dosing 61.5 ml/min 01/06/23 07:25 Est GFR ( Amer) 96.1 ml/min 01/06/23 07:25 Est GFR (Non-Af Amer) 82.9 ml/min 01/06/23 07:25 BUN/Creatinine Ratio 14.6 (10-20) 01/06/23 07:25 Glucose 105 mg/dl (70-99(Fasting)) H 01/06/23 07:25 POC Glucose 111 mg/dl (70-99) H 01/06/23 07:38 Calcium 9.5 mg/dl (8.6-10.3) 01/06/23 07:25 Magnesium 1.9 mg/dl (1.7-2.4) 01/03/23 07:13 Total Bilirubin 0.8 mg/dl (0.2-1.0) 01/02/23 18:53 AST 23 U/L (13-39) 01/02/23 18:53 ALT 12 U/L (7-52) 01/02/23 18:53 Alkaline Phosphatase 86 U/L (34-104) 01/02/23 18:53 Troponin I High Sens 9.1 pg/ml (0-20) 01/02/23 18:53 B-Natriuretic Peptide 70 pg/ml (0-100) 01/02/23 18:53 Total Protein 8.0 gm/dl (6.0-8.3) 01/02/23 18:53 Albumin 4.5 gm/dl (3.4-5.0) 01/02/23 18:53 Globulin 3.5 gm/dl (2.5-4.0) 01/02/23 18:53 Albumin/Globulin Ratio 1.3 (0.9-2) 01/02/23 18:53 Procalcitonin < 0.05 ng/ml (0-0.5) 01/02/23 18:53 Urine Color Yellow 01/02/23 20: Urine Appearance Clear (Clear) 01/02/23 20: Urine pH 7.5 (4.5-7.5) 01/02/23 20:23 Ur Specific Mullins 1.012 (1.000-1.030) 01/02/23 20:23 Urine Protein Negative (Negative) 01/02/23 20: Urine Glucose (UA) Negative (Negative) 01/02/23 20: Urine Ketones Negative (Negative) 01/02/23 20:23 Urine Blood Trace (Negative) H 01/02/23 20:23 Urine Nitrite Negative (Negative) 01/02/23 20: Urine Bilirubin Negative (Negative) 01/02/23 20:23 Urine Urobilinogen Negative (Negative) 01/02/23 20:23 Ur Leukocyte Esterase Negative (Negative) 01/02/23 20:23 Urine WBC (Auto) 1-5 /hpf (0-5) 01/02/23 20:23 Urine RBC (Auto) 5-10 /hpf (0-4) H 01/02/23 20:23 U Hyaline Cast (Auto) 1-5 /lpf (0-5) 01/02/23 20: U Epithel Cells (Auto) 5-10 /lpf (0-5) H 01/02/23 20:23 Urine Bacteria (Auto) Negative (Negative) 01/02/23 20:23 SARS-CoV-2 (PCR) NEGATIVE (Negative) 01/09/23 08:15 Impressions Chest X-Ray 01/02/23 18:46 XR chest 1V not portable HISTORY: Dyspnea COMPARISON: Chest 12/14/2022. FINDINGS: No pneumothorax. There is persistent elevation of the right hemidiaphragm with bibasilar linear densities. This favors subsegmental atelectasis are scarring. No new focal lung consolidations to suggest a pneumonia. No evidence for pulmonary edema. Scoliosis again noted. There are degenerative changes within the shoulders. A calcified granuloma within the right midlung zone again noted. IMPRESSION: 1. No significant change compared to the prior study. 2. Bibasilar linear densities persist and favor subsegmental atelectasis or scarring. 3. Severe S-shaped scoliosis ACT 112: Negative or not required by law. Electronically signed by: Byron Collazo M.D. 01/02/2023 8:[address] 01/02/23 21:06 Exam(s): CT L SPINE EXAM: CT Lumbar Spine Without Intravenous Contrast CLINICAL HISTORY: Reason for exam: low back pain s/p fall. TECHNIQUE: Axial computed tomography images of the lumbar spine without intravenous contrast. CTDI is 39.4 mGy and DLP is 1079.83 mGy-cm. Automated exposure control was utilized for the study. A dose lowering technique was utilized adhering to the principles of ALARA. COMPARISON: No relevant prior studies available. FINDINGS: Severe levoconvex scoliosis of the lumbar spine. The vertebral body heights are maintained. The lumbar lordosis is preserved. There is no spondylolisthesis. The posterior elements are maintained, without evidence of acute fracture. The pedicles are intact. Multilevel lumbar spondylosis and degenerative disc disease. Bilateral pars defects at L5. Atelectasis at the lung bases. Nonobstructing bilateral renal calculi. IMPRESSION: Severe levoconvex scoliosis of the lumbar spine. No lumbar spine fracture. Nonobstructing bilateral renal calculi. Electronically signed by: Mario Way MD 01/02/23 23:[address] 01/02/23 21:06 Exam(s): CT PELVIS Without Contrast EXAM: CT Pelvis Without Intravenous Contrast CLINICAL HISTORY: Reason for exam: left hip pain s/p fall. TECHNIQUE: Axial computed tomography images of the pelvis without intravenous contrast. CTDI is 39.4 mGy and DLP is 913.12 mGy-cm. Automated exposure control was utilized for the study. A dose lowering technique was utilized adhering to the principles of ALARA. COMPARISON: No relevant prior studies available. FINDINGS: No femoral neck or intertrochanteric hip fracture. No pelvic fracture. Intact bilateral superior and inferior pubic rami. Degenerative changes of the bilateral hip joints, pubic symphysis, and sacroiliac joints. Diffuse osseous demineralization. Lumbar spondylosis and disc space narrowing. Intrapelvic contents are within normal limits for the patient's age. Nondisplaced fracture of the S4 vertebral body. IMPRESSION: No hip fracture. Nondisplaced fracture of the S4 vertebral body. Electronically signed by: Mario Way MD 01/02/23 23:58 PM Ordered Studies 01/02/23 21:06 CT lumbar spine wo con Stat CT pelvis wo con Stat Hospital Course (1) Ambulatory dysfunction: 82-year-old male with past medical significant for chronic respiratory with hypoxia on home oxygen, hypothyroidism, hyperlipidemia, history of hypercalcemia, congenital anomaly of lung, granulomatous lung disease, sleep apnea, restrictive lung disease, elevated hemidiaphragm, history of cad s/p stent hypertension, chronic right-sided heart failure, Schatzki's ring of the distal esophagus, idiopathic scoliosis, osteoporosis, essential tremor, depression, abnormality of gait presents from home with fall. Ambulatory dysfunction Mechanical fall S4 vertebral fracture --Lumbar CT - Severe levoconvex scoliosis of the lumbar spine. No lumbar spine fracture. --Pelvic CT - nondisplaced fracture of S4 vertebral body Pain control with lidocaine patch, scheduled Tylenol and PRN oxycodone Spine Ortho consulted, nonoperative management recommended, PT/OT Consult orthotics for brace Continue PT OT Insurance denied for acute rehab Fall precautions SNF today Chronic respiratory failure with hypoxia on home oxygen Restrictive lung disease COPD Continue oxygen Home inhalers History of CAD s/p stent On Plavix, statin and beta-james Essential tremor On propranolol History of right-sided heart failure On Lasix Monitor for volume overload Hyperlipidemia Continue statin GERD Continue Protonix Hypothyroidism Continue levothyroxine Depression Continue Duloxetine and citalopram History of Schatzki's of distal esophagus States it was stretched twice Monitor for dysphagia Had a video swallow last admission and was deemed high risk for aspiration Minced and moist diet with small portions, no straws. DVT Px SQ heparin Disposition SNF Total Time Total Time Spent Total Time Spent (In Minutes): 54 minutes Discharge Plan Discharge Items Patient Disposition: Transfer Long-Term Fac Reason For Visit: FALL, WEAKNESS Discharge Diagnosis: Ambulatory dysfunction Recurrent falls S4 vertebral fracture Chronic respiratory failure with hypoxia on home oxygen Restrictive lung disease COPD Essential tremor Chronic Dysphagia Activity: Resume your previous activity Exercise/Sports: Gradually increase as tolerated Non-emergency contact: Primary Care Provider Call non-emergency contact if: you have any medication questions, your symptoms worsen, your pain is concerning for you and you have a fever Follow-up/Referrals: Jennifer Sarkar MD [Primary Care Provider] - Dietitian Info: Minced and Moist Diet: Heart Healthy Addtl Attending Provider Instructions: Follow-up with your primary care physician in 1 week upon discharge from rehab Follow-up with your orthopedic surgeon Dr. Yee in 3 to 4 weeks --- Continue minced and moist diet, aspiration precautions at all times. --- Continue back brace with activity Seek immediate medical attention if your symptoms reoccur or worsen Please take all medications as instructed on discharge list below. Please call if you have any questions or problems. You can reach a [facility] hospitalist on duty at [facility] 24 hours a day by calling [phone] Pending Studies at Discharge: No Stand-Alone Forms: My [facility] Skilled Items Patient informed of condition?: Yes DNR: No Discharge Level of Care: Skilled Communicable Disease: No Discharge Prognosis: Stable Lines: None Urinary Catheter: No Medications and DC Order Prescriptions: New oxycodone 5 mg Tablet 5 mg PO Q8H PRN (Reason: pain) Qty: 10 0RF Continued citalopram 40 mg Tablet 20 mg PO QAM clopidogrel [Plavix] 75 mg Tablet 75 mg PO QAM nitroglycerin 0.4 mg Tablet, Sublingual 1 tab Sublingual UD PRN (Reason: Angina) Patient Comments: NEVER HAD TO USE Rx Instructions: NEEDED FOR CHEST PAIN : ONE TABLET UNDER THE TONGUE EVERY 5 MINUTES X THREE DOSES. acetaminophen 500 mg Tablet 1,000 mg PO AMHS PRN (Reason: Pain) Rx Instructions: MAY TAKE A THIRD DOSE IN BETWEEN rosuvastatin 5 mg tablet 5 mg PO QAM levothyroxine 112 mcg tablet 112 mcg PO DAILYBB benzonatate 100 mg capsule 100 mg PO TID PRN (Reason: Cough) Nasogel 0.9 % [place] Gel 1 applic INTRANASAL HS PRN (Reason: NASAL DRYNESS) ipratropium-albuterol 20-100 mcg/actuation Mist 1 puff INHALATION QID Rx Instructions: space evenly during waking hours albuterol sulfate 90 mcg/actuation HFA aerosol inhaler 2 puff INHALATION Q6H PRN (Reason: Shortness Of Breath Or Wheezing) montelukast [Singulair] 10 mg Tablet 10 mg PO QAM furosemide 20 mg tablet 40 mg PO QAM meclizine 12.5 mg tablet 12.5 mg PO TID PRN (Reason: Dizziness Or Vertigo) pantoprazole 20 mg tablet,delayed release (DR/EC) 20 mg PO DAILYBB duloxetine 30 mg capsule,delayed release(DR/EC) 30 mg PO QPM propranolol 20 mg Tablet 20 mg PO TID Qty: 90 0RF Discharge Orders: Discharge Order (Routine); Ordered 01/09/23 Ordered By: Barber Duenas Admission Data Admit Date/Time: 01/03/23 00:54 Attending Provider: Barber Duenas Admit Provider: Gian Rodriguez Primary Care Provider: Jennifer Sarkar Other Providers: Gian Rodriguez; Clarke Bernal; [facility]; [facility]
== END 2023-01-09 15:47 | DRG 552 ==
LOC: ED 18:34 → INTOOBSV 01-03 00:54 → 2E 01-03 00:54 → SUATTDRO 01-03 00:54 → 2E 01-03 03:24 → 3E 01-03 21:51

== ENCOUNTER 2023-07-03 07:37 | Inpatient (IN) ==
--- OUTSIDE RECORDS SUMMARY | 2023-07-03 07:43 | External Medical Summary ---
Author Name Unknown Address Unknown Organization K01:[facility] [place] [address] [place] [address] Laboratory Report Ordering Provider Test Date Status DOMENICAJESSA 06/22/2023 18:24:43 Final Observation Date Value Abnormality Reference (Units) Status Bacteria identified in Specimen by Culture 06/22/2023 18:24:43 No significant growth Final Test: Culture, Urine, Quanti tative
Specimen Source: Urine, Clean Catch
Specimen Type: Urine
Specimen Date: 06/22/2023 6:24 PM
Result Date: 06/24/2023 9:31 AM
Result Status: Final result
Resulting Lab: [facility] [place]
[address]
[place] [address]

CULTURE

No significant growth

null Performing Location [facility] [place] - [address] [place] [address]
--- OUTSIDE RECORDS SUMMARY | 2023-07-03 07:43 | External Medical Summary | Summary of Care ---
Author Name Unknown Organization [facility] Address [address] [facility] [place] [address] Phone [phone] Care Team Providers Care Lead Quality Control Technician Name Role Phone Jennifer Sarkar MD Primary Care Provider [phone] Encounter Details Date Type Department Care Team (Late st Contact Info) Description 03/21/2023 Telephone General Internal Medicine [facility] [address] [facility] [place] [address] Jennifer Sarkra MD [address] [facility] [place] [address] Allergies Active Allergy Reactions Criticality Noted Date Comments Food (See Comments) 03/21/2018 Other reaction(s): WAS TOLD NOT TO TAKE grapefruit Tramadol Other (Please comment) High 10/06/2020 Hallucinations documented as of this encounter (statuses as of 06/20/2023) Medications Medication Sig Dispensed Refills Start Date [...] mg intravenously once. Yearly administration 0 Active Acetaminophen 500 MG Oral Tablet (Tylenol)Indications: Spinal stenosis of lumbar region without neurogenic claudication Take by mouth 2 Tablets in the morning AND 2 Tablets before bedtime. ,may take 3rd dose in between --12/21/2021. 1 Tablet 0 2 Active Additional Information Patient taking differently:1,000 mg [id number] PRN, ,may take 3rd dose in between [...] OralDaily(AM), (No instructions reported), Reported on 12/21/2022 Montelukast Sodium 10 MG Oral Tablet (Singulair)Indication s:Chronic pansinusitis Take 1 Tablet by mouth in the morning. St 09/01/2022. 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 TAKE ADDITIONAL ONE FOR THREE DAYS AND DIRECTED. 270 Tablet 3 3 Active Benzonatate 100 MG Oral CapsuleIndications:As piration into airway, subsequent encounter Take 1 Capsule by mouth 3 times a day as needed for Cough. 30 Capsule 1 3 Active Clopidogrel Bisulfate 75 MG Oral Tablet (pLAVix)Indications:S /P primary angioplasty with coronary stent TAKE 1 TABLET DAILY 90 Tablet 1 3 Active documented as of this encounter (statuses as of 06/20/2023) Active Problems Problem Noted Date Diagnosed Date Hypercalcemia 12/03/2022 Supplemental oxygen dependent 05/06/2022 Nasal septal perforation 05/06/2022 Chronic respiratory failure with hypoxia 022 Granulomatous lung disease 09/18/2021 Chronic rhinitis 06/10/2021 Schatzki's ring of distal esophagus 06/10/2021 Chronic right-sided heart failure 04/08/2020 Coronary artery disease invo lving koi coronary artery of koi heart without angina pectoris 11/21/2018 Abnormality of [...] hypoxemia 06/08/2007 Overview: 3 LPM at bedtime [employer] SPINAL STENOSIS-LUMBAR 07/29/2005 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 Essential tremor documented as of this encounter (statuses as of 06/20/2023) Resolved Problems Problem Noted Date Diagnosed Date Resolved Date Right-sided heart failure 01/30/2020 Gastroesophageal reflux dise ase without esophagitis 03/12/2019 10/03/2019 Hepatomegaly 04/22/2011 11/21/2017 EXT ASTHMA W/O STATUS ASTHMATIC OR AC EXACER 0 04/22/2009 Dysuria 10/14/2008 05/20/2011 Other chest pain 10/09/2008 10/16/2008 INTERFACED RESULT 10/09/2008 05/20/2011 Acute coronary syndrome 10/09/2008 03/10/2011 Labyrinthitis, unspecified 08/30/2005 0 07/21/2016 Edema 08/30/2005 [...] and draped in usual sterile manner. 14 Mohawk flexible cystoscope inserted into urethra and guided [...] as of this encounter (statuses as of 06/20/2023) Immunizations Name Administration Dates Next Due COVID-19 mRNA, LNP-s, No Pre serve, 2-Dose Series (Chogger) 05/14/2020,04/18/2020 H1N1 2009 Influenza, IM 04/22/2009 PPD 01/18/2023, 3,11/22/2022,11/13,08/20/2020,08/11/2020 Pneumococcal Conjugate Vacc, 13 Valent (Prevnar) 11/12/2014 Pneumococcal Polysaccharide PPV23 (Pneumovax) 07/20/2007 Season Influenza, Quad, PF, Adjuvanted, 65+ Yrs, IM (FLUAD) 11/29/2019 Seasonal Influenza, PF, 6 M & above, IM , (FluLaval or Fluzone) 04/06/2022,11/21/2017,11/29/2016 Seasonal Influenza, Quadriva lent Hd (Fluzone Hd) [...] Years Used Date Smoking Tobacco: Former Pipe Cigars Smokeless Tobacco: Never Comments:Smoked a occasional pipe [...] on file documented as of this encounter Plan of Treatment Upcoming Encounters Date Type Department Care Team (Late st Contact Info) Description 06/22/2023 5:00 PM EDT Office Visit General Internal Medicine [facility] [place] [address] [place] [address] Jennifer Sarkar MD [address] [place] [address] 08/03/2023 9:30 AM EDT Office Visit Urology, [facility] [address] [place] [address] Man Gu MD [address] [place] [address] [place] [address] 08/08/2023 1:30 PM EDT Office Visit Orthopaedics [facility] [address] [place] [address] Ricardo Licona, [address] [facility] [place] [address] 08/11/2023 8:00 AM EDT Office Visit Rheumatology [address] [place] [address] Meryl Santiago CRNP [address] [place] [address] [place] [address] 10/20/2023 7:00 AM EDT Office Visit Nephrology, [facility] [address] [facility] [place] [address] Yumiko Philippe MD [address] [facility] [place] [address] 11/07/2023 2:30 PM EDT Imaging Radiology, [address] [place] [address] Scheduled Procedures Name Priority Associated Diagnoses Date/Ti me COLONOSCOPY FLEXIBLE PROXIMAL DIAGNOSTIC Recall History of colon polyps Health Maintenance Due Date Last Done Comments DXA Scan 08/05/2021 08/06/2019, 0404/2017, 05/13/2015, Additional history exists Colonoscopy 06/03/2022 06/03/2017, 02/01/2007 COVID-19 Vaccine ( season) 2022 05/14/2020, 04/18/2020 GFR 03/23/2024 03/23/2023, 11/21, 04/06/2022, Additional history exists TSH 03/23/2024 03/23/2023, 11/21, 08/11/2022, Additional history exists Albumin/Creatinine Ratio 09/09/2024 09/09/2021, 08/ DTaP,Tdap,and Td Vaccines (2 - Td or Tdap) 07/19/2028 07/19/2018, 12/14/2007 Pneumococcal Vaccine: 65+ Years Completed 11/12/2014, 07/20/2007, 02/25/2002 RETIRED - COLONOSCOPY-EVERY 5 YRS AGES 18-100 Discontinued 06/03/2017, 02/01/2007 Zoster Vaccines Completed 01/28/2020, 09/17/2019 Influenza Vaccine (FLU shot) Completed 11/22/2022, 04/06/2022, 04/06/2022, Additional history exists VITAMIN D LEVEL ONCE IN A LIFETIME-USE SMARTSET# [id number] Completed 12/01/2022, 09/09/2021, 04/08/2021, Additional history exists [...] this encounter Medical Devices Implanted Type Area Mobile Phlebotomist Device Identifier Shelf Expiration Date Model / Serial / Lot Lens Intraoc 23.0 - [id number] - [id number] Implanted:Qty: 1 on 12/21/2016 by Raj Bernard MD at [facility] Left: Eye [employer] 06/20/2021 [id number] / [id number] / Lens Intraoc 22.0 - [id number] - [id number] Implanted:Qty: 1 on 01/06/2017 by Raj Bernard MD at [facility] Right: Eye [employer] 08/20/2021 [id number] / [id number] / [id number] documented as of this encounter Advance Directives [...] the patient have Health Care Power of Cattle Knocker? No Care Teams Lead Quality Control Technician Relationship Specialty Start Date End Date Jennifer Sarkar MD [address] [place] [address] PCP - General Internal Medicine 10/06/20 documented as of this encounter
--- OUTSIDE RECORDS SUMMARY | 2023-07-03 07:43 | External Medical Summary | Summary of Care ---
Author Name Unknown Organization [facility] Address [address] [facility] [place] [address] Phone [phone] Care Team Providers Care Service Center Specialist Name Role Phone Jennifer Sarkar MD Primary Care Provider [phone] Reason for Visit * Reason Comments eRx-Medication Refill Encounter Details Date Type Department Care Team (Late st Contact Info) Description 06/16/2023 Refill General Internal Medicine [facility] [address] [facility] [place] [address] Jennifer Sarkar MD 200 [facility] [address] Acquired hypothyroidism; Anxiety Allergies Active Allergy Reactions Criticality Noted Date Comments Food (See Comments) 03/21/2018 Other reaction(s): WAS TOLD NOT TO TAKE grapefruit Tramadol Other (Please comment) High 10/06/2020 Hallucinations documented as of this encounter (statuses as of 06/16/2023) Medications Medication Sig Dispensed Refills Start Date End Date Status NITROGLYCERIN 0.4 MG SL SUBLIndications:Old myocardial infarct,S/P primary angioplasty with coronary stent,Obstructive sleep apnea (adult) (pediatric),HTN, goal to be determined 1every 5 min as needed with chest pain up to 3 doses in 15 minutes 25 Tab 11 03/08/19 12 Active Zoledronic Acid 5 MG/100ML Intravenous Solution Administer 5 mg intravenously once. Yearly administration 0 Active Acetaminophen 500 MG Oral Tablet (Tylenol)Indications :Spinal stenosis of lumbar region without neurogenic claudication Take by mouth 2 Tablets in the morning AND 2 Tablets before bedtime. ,may take 3rd dose in between --12/21/2021. 1 Tablet 0 12/22/19 22 Active Additional Information Patient taking differently:1,000 mg [id number] PRN, ,may take 3rd dose in between --12/21/2021, Reported on 12/21/2022 Ipratropium-Albutero l 20-100 MCG/ACT Inhalation Aerosol Solution (Combivent Respimat)Indications :Granulomatous lung disease (HCC),Chronic respiratory failure with hypoxia (HCC) Inhale 1 Puff by mouth in the morning and 1 Puff at noon and 1 Puff in the evening and 1 Puff before bedtime. 4 g 2 04/06/19 23 Active Albuterol Sulfate HFA 108 (90 Base) MCG/ACT Inhalation Aerosol Solution Inhale 2 Puffs by mouth every 6 hours as needed for Wheezing. 18 g 0 04/07/19 23 Active Rosuvastatin Calcium 5 MG Oral Tablet (Crestor)Indications :Dyslipidemia, goal LDL below 100,S/P primary angioplasty with coronary stent Take 1 Tablet by mouth in the morning. Restart 04/16/2022. 90 Tablet 3 04/16/19 23 Active Saline Nasal Gel (Nasogel)Indications :Chronic respiratory failure with hypoxia (HCC),Supplemental oxygen dependent,Nasal septal perforation,Nose dryness Administer into each nostril daily. For dryness(nasal septal perforation) 14 g 0 05/07/19 23 Active Citalopram Hydrobromide 40 MG Oral Tablet (CeleXA)Indications: Anxiety Take 0.5 Tablets by mouth in the morning. --dec dose 05/18/2022 as adding duloxetine 30 In evening from 05/18/2022. 90 Tablet 3 05/19/19 23 Active Propranolol HCl 20 MG Oral Tablet (Inderal) Take 1 Tablet by mouth in the morning and 1 Tablet at noon and 1 Tablet before bedtime. 270 Tablet 3 06/19/19 23 Active DULoxetine HCl 30 MG Oral Capsule Delayed Release Particles (Cymbalta)Indication s:Chronic bilateral low back pain without sciatica,Levoscolios is of lumbar spine TAKE 1 CAPSULE BY MOUTH EVERY EVENING. DO NOT CUT, CRUSH OR CHEW--START 05/18/2022 AND DEC CITALOPRAM TO 20MG 90 Capsule 1 08/11/19 23 Active Meclizine HCl 12.5 MG Oral Tablet (Antivert)Indication s:Dizziness,Benign paroxysmal positional vertigo, unspecified laterality TAKE 1 TABLET BY MOUTH THREE TIMES A DAY NEEDED FOR DIZZINESS 30 Tablet 1 08/11/19 23 Active Pantoprazole Sodium 20 MG Oral Tablet Delayed Release (Protonix)Indication s:History of gastroesophageal reflux (GERD),History of esophageal dilatation Take 1 Tablet by mouth at bedtime. 30 minutes before the first meal of the day. Do not crush, split or chew the tablet--dec 12/21/2021(nml EGD 08/21/21)--chg timing 05/18/2022 90 Tablet 3 08/10/19 23 Active Additional Information Patient taking differently:20 mg OralDaily(AM), (No instructions reported), Reported on 12/21/2022 Montelukast Sodium 10 MG Oral Tablet (Singulair)Indicatio ns:Chronic pansinusitis Take 1 Tablet by mouth in the morning. St 09/01/2022. 90 Tablet 3 09/02/19 23 Active Furosemide 20 MG Oral Tablet (Lasix)Indications:C hronic right-sided heart failure (HCC),Coronary artery disease involving sitka coronary artery of sitka heart without angina pectoris,Bilateral leg edema TAKE BY MOUTH 2 TABLETS IN THE MORNING. TAKE ADDITIONAL ONE FOR THREE DAYS AND DIRECTED. 270 Tablet 3 10/09/19 23 Active Benzonatate 100 MG Oral CapsuleIndications:A spiration into airway, subsequent encounter Take 1 Capsule by mouth 3 times a day as needed for Cough. 30 Capsule 1 12/21/19 23 Active Clopidogrel Bisulfate 75 MG Oral Tablet (pLAVix)Indications: S/P primary angioplasty with coronary stent TAKE 1 TABLET DAILY 90 Tablet 1 02/12/20 23 Active oxyCODONE HCl 5 MG Oral Tablet (Oxy IR) Take 1 Tablet by mouth every 8 hours as needed for Pain, Severe. 0 01/10/20 23 Active oxygen 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:Chron ic respiratory failure with hypoxia (HCC),Chronic right-sided heart failure (HCC),Granulomatous lung disease (HCC) Use 3lpm continuous, increased to 4lpm with exertion. Changed 03/23/23 1 Each 0 04/10/19 Active Levothyroxine Sodium 112 MCG Oral Tablet (Levoxyl)Indications :Acquired hypothyroidism TAKE 1 TABLET BY MOUTH IN THE MORNING. (AT LEAST 30 MIN PRIOR TO BREAKFAST OR OTHER MEDS) 90 Tablet 0 06/16/19 24 Active Citalopram Hydrobromide 20 MG Oral Tablet (CeleXA) TAKE 1 TABLET BY MOUTH EVERY DAY FOR DEPRESSION 90 Tablet 0 06/16/19 24 Active Levothyroxine Sodium 112 MCG Oral Tablet (Levoxyl)Indications :Acquired hypothyroidism Take 1 Tablet by mouth in the morning. (at least 30 min prior to breakfast or other meds)--dec 12/03/2022, lab in Feb. 90 Tablet 0 12/04/19 23 024 Discontinued documented as of this encounter (statuses as of 06/16/2023) Active Problems Problem Noted Date Diagnosed Date Hypercalcemia 12/03/2022 Supplemental oxygen dependent 05/06/2022 Nasal septal perforation 05/06/2022 Chronic respiratory failure with hypoxia 022 Granulomatous lung disease 09/18/2021 Chronic rhinitis 06/10/2021 Schatzki's ring of distal esophagus 06/10/2021 Chronic right-sided heart failure 04/08/2020 Coronary artery disease invo lving sitka coronary artery of sitka heart without angina pectoris 11/21/2018 Abnormality of [...] Overview: copd and restrictive lung disease CXR 2004: IMPRESSION: I see no active disease in the chest but do note a significant thoracic scoliosis. Essential tremor documented as of this encounter (statuses as of 06/16/2023) Resolved Problems Problem Noted Date Diagnosed Date [...] and draped in usual sterile manner. 14 Lao flexible cystoscope inserted into urethra and guided into bladder under direct vision. Findings :normal bladder mucosa, normal anatomical position of ureteral orifices.Ureteral stent removed completely Calculus of ureter 04/01/2005 8 ADVANCE DIRECTIVE INFORMATION 07/27/2004 07/21/2016 Overview: Patient does not have an advanced directive. Patient given information booklet. Bacterial pneumonia 07/31/2002 09/17/19 16 Depression with anxiety 11/18/200002/2017 HYPERTENSION NOS 01/13/2009 Overview: Modified per [facility] protocol #16. Screening for prostate cancer 01/03/2007 Asthma, allergic 04/22/2009 Osteoporosis 02/24/2017 documented as of this encounter (statuses as of 06/16/2023) Immunizations Name Administration Dates Next Due COVID-19 [...] encounter Miscellaneous Notes * Telephone Encounter - Vimal Dueñas RP - 06/16/2023 6:19 PM EDT Signed Prescriptions: Disp Refills Levothyroxine Sodium 112 MCG Oral Tablet (*90 Tab*0 Sig: TAKE 1 TABLET BY MOUTH IN THE MORNING. (AT LEAST 30 MIN PRIOR TO BREAKFAST OR OTHER MEDS)Authorizing Provider: Tabitha SARKAR User: VIMAL DUEÑAS Citalopram Hydrobromide 20 MG Oral Tablet *90 Tab*0 Sig: TAKE 1 TABLET BY MOUTH EVERY DAY FOR DEPRESSIONAuthorizing Provider: Tabitha SARKAR User: VIMAL DUEÑAS * Telephone Encounter - Kellee Cooper machine ii coremaker - 06/16/2023 6:02 PM EDT Pt requesting HIGH PRIORITY due to pt is out of meds Did you pend patient's preferred pharmacy and medication before forwarding?yes Pharmacy: [id number] [address] [facility] Pending Prescriptions: Disp Refills Levothyroxine Sodium 112 MCG Oral Tablet *90 Tab*0 Sig: TAKE 1 TABLET BY MOUTH IN THE MORNING. (AT LEAST 30 MIN PRIOR TO BREAKFAST OR OTHER MEDS) Citalopram Hydrobromide 20 MG Oral Tablet*30 Tab* Sig: TAKE 1 TABLET BY MOUTH EVERY DAY FOR DEPRESSION Last Visit: 03/23/2023 (in office), Visit date not found (telemedicine) Next Visit: 06/22/2023 If no future appointments scheduled, and last appointment is greater than a year ago, please schedule patient for a follow-up appointment Last date the medication was ordered: 12/03/2022,05/18/2022 Is this request for a controlled substance?No Urine Drug Screen:No results found. However, due to the size of the patient record, not all encounters were searched. Please check Results Review for a complete set of results. Patient Phone Numbers Labs: Lab Results Component Value Date/Time CREAT 0.9 03/23/2023 01:05 PM CREAT 1.00 10/03/2020 12:00 AM CREAT 1.0 01/02/2020 12:23 PM POTASSIUM 4.5 03/23/2023 01:05 PM POTASSIUM 4.0 10/03/2020 12:00 AM POTASSIUM 4.0 01/02/2020 12:23 PM TSH 1.70 03/23/2023 01:05 PM TSH 1.32 01/02/2020 12:23 PM LDLCALC 43 11/21/2017 02:01 PM LDLDIRECT 52 03/23/2023 01:05 PM LDLDIRECT 57 01/02/2020 12:23 PM LDLDIRECT 39 04/27/2013 11:50 AM ALT 13 03/23/2023 01:05 PM ALT 20 01/02/2020 12:23 PM HGBA1C 5.6 10/09/2008 01:40 PM documented in this encounter Plan of Treatment Upcoming Encounters Date Type Department Care Team (Late st Contact Info) Description 06/22/2023 5:00 PM EDT Office Visit General Internal Medicine [facility] [address] [place] [address] Jennifer Sarkar MD [address] [place] [address] 08/03/2023 9:30 AM EDT Office Visit Urology, [facility] [address] [facility] [place] [address] Man Gu MD [address] [place] [address] 08/08/2023 1:30 PM EDT Office Visit Orthopaedics [facility] [address] [place] [address] Ricardo Licona, 132 [place] [address] 08/11/2023 8:00 AM EDT Office Visit Rheumatology [address] [place] [address] Meryl Santiago CRNP [address] [place] [address] [place] [address] 10/20/2023 7:00 AM EDT Office Visit Nephrology, [facility] 200 [facility] [place] [address] Yumiko Philippe MD [address] [place] [address] 11/07/2023 2:30 PM EDT Imaging Radiology, [address] [place] [address] Scheduled Procedures Name Priority Associated Diagnoses Date/Ti me COLONOSCOPY FLEXIBLE PROXIMAL DIAGNOSTIC Recall History of colon polyps Health Maintenance Due Date Last Done Comments DXA Scan 08/05/2021 08/06/2019, 0404/2017, 05/13/2015, Additional history exists COLONOSCOPY-EVERY 5 YRS AGES 18-100 06/03/2022 06/03/2017, 02/01/2007 COVID-19 Vaccine ( season) 2022 05/14/2020, 04/18/2020 GFR 03/23/2024 03/23/2023, 11/21, 04/06/2022, Additional history exists TSH 03/23/2024 03/23/2023, 11/21, 08/11/2022, Additional history exists Albumin/Creatinine Ratio 09/09/2024 09/09/2021, 09/22 DTaP,Tdap,and Td Vaccines (2 - Td or Tdap) 07/19/2028 07/19/2018, 12/14/2007 Pneumococcal Vaccine: 65+ Years Completed 11/12/2014, 07/20/2007, 02/25/2002 Zoster Vaccines Completed 01/28/2020, 09/17/2019 Influenza Vaccine (FLU shot) Completed 03/2022, 04/06/2022, 04/06/2022, Additional history exists VITAMIN D LEVEL ONCE IN A LIFETIME-USE SMARTSET# [id number] Completed 12/01/2022, 09/09/2021, 04/08/2021, Additional history exists [...] this encounter Medical Devices Implanted Type Area Relay Mechanic Device Identifier Shelf Expiration Date Model / Serial / Lot Lens Intraoc 23.0 - [id number] - [id number] Implanted:Qty: 1 on 12/21/2016 by Raj Bernard MD at OR [facility] Left: Eye BAUSCH & LOMB 06/20/2021 [id number] / [id number] / Lens Intraoc 22.0 - [id number] - [id number] Implanted:Qty: 1 on 01/06/2017 by Raj Bernard MD at OR [facility] Right: Eye BAUSCH & LOMB 08/20/2021 [id number] / [id number] / [id number] documented as of this encounter Visit Diagnoses Diagnosis Acquired hypothyroidism Unspecified hypothyroidism Anxiety Anxiety state, unspecified documented in this encounter Advance Directives Latest [...] the patient have Health Care Power of Flume Tender? No Care Teams Service Center Specialist Relationship Specialty Start Date End Date Jennifer Sarkar MD [address] [facility] [place] [address] PCP - General Internal Medicine 10/06/20 documented as of this encounter
--- OUTSIDE RECORDS SUMMARY | 2023-07-03 07:43 | External Medical Summary | Summary of Care ---
Author Name Unknown Organization [facility] Address [address] [facility] [place] [address] Phone [phone] Care Team Providers Care Mathematics Department Chair Name Role Phone Jennifer Sarkar MD Primary Care Provider [phone] Reason for Visit * Reason Onset Date Comments Appointment 07/01/2023 Encounter Details Date Type Department Care Team (Late st Contact Info) Description 07/01/2023 Telephone General Internal Medicine [facility] [address] [place] [address] Jennifer Sarkar MD 200 [place] [address] Appointment Allergies Active Allergy Reactions Criticality Noted Date Comments Food (See Comments) 03/21/2018 Other reaction(s): WAS TOLD NOT TO TAKE grapefruit Tramadol Other (Please comment) High 10/06/2020 Hallucinations documented as of this encounter (statuses as of 07/01/2023) Medications Medication Sig Dispensed Refills Start Date [...] Active Additional Information Patient taking differently:1,000 mg [id number] PRN, ,may take 3rd dose in between [...] septal perforation) 14 g 0 3 Active Propranolol HCl 20 MG Oral Tablet (Inderal) Take 1 Tablet by mouth in the morning and 1 Tablet at noon and 1 Tablet before bedtime. 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 0 3 Active oxygen 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:Chroni c respiratory failure with hypoxia (HCC),Chronic right-sided heart failure (HCC),Granulomatous lung disease (HCC) Use 3lpm continuous, increased to 4lpm with exertion. Changed 03/23/23 1 Each 0 4 Active Levothyroxine Sodium 112 MCG Oral Tablet (Levoxyl)Indications: Acquired hypothyroidism TAKE 1 TABLET BY MOUTH IN THE MORNING. (AT LEAST 30 MIN PRIOR TO BREAKFAST OR OTHER MEDS) 90 Tablet 0 4 Active Citalopram Hydrobromide 20 MG Oral Tablet (CeleXA) TAKE 1 TABLET BY MOUTH EVERY DAY FOR DEPRESSION 90 Tablet 0 4 Active DULoxetine HCl 60 MG Oral Capsule Delayed Release Particles (Cymbalta)Indications :Chronic pain of both shoulders,Spinal stenosis of lumbar region without neurogenic claudication,Current moderate episode of major depressive disorder without prior episode (HCC) Take 1 Capsule by mouth in the morning. Do not cut, crush or chew--inc from 06/23/2023. 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 Essential tremor [G25.0] Cerebral microvascular disease [I67.89] Please contact pt to schedule appointment. Thank You documented in this encounter Plan of Treatment Upcoming Encounters Date Type Department Care Team (Late st Contact Info) Description 08/03/2023 9:30 AM EDT Office Visit Urology, [facility] [address] [facility] [place] [address] Man Gu MD [address] [facility] [address] [place] [address] 08/08/2023 1:30 PM EDT Office Visit Orthopaedics [facility] [address] [facility] [place] [address] Ricardo Licona, [address] [facility] [place] [address] 08/11/2023 8:00 AM EDT Office Visit Rheumatology [place] [address] [facility] [place] [address] Meryl Santiago CRNP [address] [facility] [place] [address] 10/20/2023 7:00 AM EDT Office Visit Nephrology, [facility] [address] [place] [address] Yumiko Philippe MD [address] [place] [address] 11/07/2023 2:30 PM EDT Imaging Radiology, [facility] [address] [facility] [place] [address] 12/26/2023 11:20 AM EST Office Visit General Internal Medicine [facility] [place] [address] [facility] [place] [address] Jennifer Sarkar MD 200 [facility] [place] [address] Scheduled Procedures Name Priority Associated Diagnoses Date/Ti me COLONOSCOPY FLEXIBLE PROXIMAL DIAGNOSTIC Recall History of colon polyps Health Maintenance Due Date Last Done Comments DXA Scan 08/05/2021 08/06/2019, 04/2017, 05/13/2015, Additional history exists Colonoscopy 06/03/2022 06/03/2017, [...] D LEVEL ONCE IN A LIFETIME-USE SMARTSET# [id number] Completed 12/01/2022, 09/09/2021, 04/08/2021, Additional history exists [...] this encounter Medical Devices Implanted Type Area De Icer Device Identifier Shelf Expiration Date Model / Serial / Lot Lens Intraoc 23.0 - [id number] - [id number] Implanted:Qty: 1 on 12/21/2016 by Raj Bernard MD at OR [facility] Left: Eye BAUSCH & LOMB 06/20/2021 [id number] / [id number] / Lens Intraoc 22.0 - [id number] - [id number] Implanted:Qty: 1 on 01/06/2017 by Raj Bernard MD at OR [facility] Right: Eye BAUSCH & LOMB 08/20/2021 [id number] / [id number] / [id number] documented as of this encounter Advance Directives Latest Code Status on File Code Status Date Activated Date Inactivated Comments Full Code 01/06/2017 12:19 PM 01/10/2017 11:00 AM T his order reflects the patients wishes and were consensually agreed upon. Code Status History Code Status Date Activated Date Inactivated Comments Full Code 12/21/2016 1:46 PM 12/21/2016 8:34 PM Th is order reflects the patients wishes and were consensually agreed upon. Full Code 10/09/2008 1:46 PM 10/14/2008 9:18 PM This order reflects the patients wishes and were consensually agreed upon. Question Answer Comments Discussion of Advance Directives occurred with: Patient/Family Does the patient have a Living Will? No Does the patient have Health Care Power of Textile Pin Worker? No Care Teams Mathematics Department Chair Relationship Specialty Start Date End Date Jennifer Sarkar MD [address] [place] [address] PCP - General Internal Medicine 10/06/20 documented as of this encounter
--- OUTSIDE RECORDS SUMMARY | 2023-07-03 07:44 | External Medical Summary | Summary of Care ---
Author Name Unknown Organization [facility] Address [address] [place] [address] Phone [phone] Care Team Providers Care Twill Cutter Name Role Phone Jennifer Sarkar MD Primary Care Provider [phone] Reason for Visit * Reason Onset Date Comments Home Health 04/06/2023 Encounter Details Date Type Department Care Team (Late st Contact Info) Description 04/06/2023 Telephone General Internal Medicine [facility] [address] [facility] [place] [address] Jennifer Sarkar MD [address] [place] [address] Home Health Allergies Active Allergy Reactions Criticality Noted Date Comments Food (See Comments) 03/21/2018 Other reaction(s): WAS TOLD NOT TO TAKE grapefruit Tramadol Other (Please comment) High 10/06/2020 Hallucinations documented as of this encounter (statuses as of 04/18/2023) Medications Medication Sig Dispensed Refills Start Date [...] Active Additional Information Patient taking differently:1,000 mg IbddN2T PRN, ,may take 3rd dose in between [...] right-sided heart failure (HCC),Coronary artery disease involving gakona coronary artery of gakona heart without angina pectoris,Bilateral leg edema TAKE BY MOUTH 2 TABLETS IN THE MORNING. TAKE ADDITIONAL ONE FOR THREE DAYS AND DIRECTED. 270 Tablet 3 3 Active Levothyroxine Sodium 112 MCG Oral Tablet (Levoxyl)Indications: Acquired hypothyroidism Take 1 Tablet by mouth in the morning. (at least 30 min prior to breakfast or other meds)--12/03/2022, lab in Feb. 90 Tablet 0 3 Active Benzonatate 100 [...] needed for Pain, Severe. 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 Essential tremor documented as of this encounter (statuses as of 04/18/2023) Resolved Problems Problem Noted Date Diagnosed Date [...] and draped in usual sterile manner. 14 [place] flexible cystoscope inserted into urethra and guided [...] as of this encounter (statuses as of 04/18/2023) Immunizations Name Administration Dates Next Due COVID-19 mRNA, LNP-s, No Pre serve, 2-Dose Series ([employer]) 05/14/2020,04/18/2020 H1N1 2009 Influenza, IM 04/22/2009 PPD [...] encounter Miscellaneous Notes * Telephone Encounter - Michelle CamaraBARRON - 04/18/2023 1:19 PM EST [facility] HH aware * Telephone Encounter - Jennifer Sarkar MD - 04/06/2023 7:20 PM EST Noted. Wt Readings from Last 3 Encounters: 03/23/23 71.6 kg (157 lb 14.4 oz) 12/21/22 73.3 kg (161 lb 8 oz) 12/20/22 74.5 kg (164 lb 3.2 oz) Ct lasix 40mg Fluid restriction to 5-6cups(8oz)/d Low salt diet. Check daily weight Call if weight gain >3lb/24hr or 5lb/3d * Telephone Encounter - Veronica Bueno LPN - 04/06/2023 4:21 PM EST HH Concerns Tonia RN, Calling from: [facility] Report/Concerns of: update on pt Symptoms: see narrative Vitals: T 97.3 P 65 RR 16 BP 112/72 SP O2 95 RA Lung sounds clear Weight 157lbs On 03/30 wt was 152 lbs no increased edema leg measurements are actually down. Narrative: pt had 5 lb wt gain in one week, He is taking furosemide. He does report he is eating more. Daughter took him to [facility]. No increased edema, leg measurements are actually down from 2 weeks prior. Lungs clear. I did review note in previous encounter about using [facility] for pills packs for meds. Tonia will reach out to daughter to find out if they would be interested in this and call back. Tonia is adding 2 more HH nurse visits to continue seeing pt. Call back [facility] HH intake if there are any concerns about his weight at Advised that additional visit orders will be signed by Dr Sarkar and to fax to the office for signature documented in this encounter Plan of Treatment Upcoming Encounters Date Type Department Care Team (Late st Contact Info) Description 06/14/2023 9:00 AM EDT Imaging [place]iology, [address] [place] [address] 06/22/2023 5:00 PM EDT Office Visit General Internal Medicine [facility] [address] [facility] [place] [address] Jennifer Sarkar MD [address] [facility] [place] [address] 08/03/2023 9:30 AM EDT Office Visit Urology, [facility] [address] [facility] [place] [address] Man Gu MD [address] [place] [address] [place] [address] 08/08/2023 1:30 PM EDT Office Visit Orthopaedics [facility] [address] [place] [address] Ricardo Licona, [address] [place] [address] 08/11/2023 8:00 AM EDT Office Visit Rheumatology [address] [place] [address] Meryl Santiago CRNP [address] [place] [address] [place] [address] 10/20/2023 7:00 AM EDT Office Visit Nephrology, [facility] [address] [place] [address] Yumiko Philippe MD [address] [facility] [place] [address] Scheduled Procedures Name Priority Associated Diagnoses Date/Ti me COLONOSCOPY FLEXIBLE PROXIMAL DIAGNOSTIC Recall History of colon polyps Health Maintenance Due Date Last Done Comments DXA Scan 08/05/2021 08/06/2019, 0404/2017, 05/13/2015, Additional history exists COLONOSCOPY-EVERY 5 YRS AGES 18-100 06/03/2022 06/03/2017, 02/01/2007 Depression Screening 09/09/2022 09/09/2021 COVID-19 Vaccine (2022- season) 2022 05/14/2020, 04/18/2020 GFR 03/23/2024 03/23/2023, [...] D LEVEL ONCE IN A LIFETIME-USE SMARTSET# [id number] Completed 12/01/2022, 09/09/2021, 04/08/2021, Additional history exists [...] this encounter Medical Devices Implanted Type Area Associate Sales Device Identifier Shelf Expiration Date Model / Serial / Lot Lens Intraoc 23.0 - [id number] - [id number] Implanted:Qty: 1 on 12/21/2016 by Raj Bernard MD at [facility] Left: Eye [employer] 06/20/2021 [id number] / [id number] / Lens Intraoc 22.0 - [id number] - [id number] Implanted:Qty: 1 on 01/06/2017 by Raj Bernard MD at [facility] Right: Eye [employer] 08/20/2021 [id number] / [id number] / [id number] documented as of this encounter Advance Directives [...] the patient have Health Care Power of Mercantile Agent? No Care Teams Twill Cutter Relationship Specialty Start Date End Date Jennifer Sarkar MD [address] [facility] [place], [place] [address] PCP - General Internal Medicine 10/06/20 documented as of this encounter
--- OUTSIDE RECORDS SUMMARY | 2023-07-03 07:44 | External Medical Summary | Summary of Care ---
Author Name Unknown Organization [facility] Address [address] [facility] [address] Phone [phone] Care Team Providers Care Corporate Compliance Manager Name Role Phone Jennifer Sarkar MD Primary Care Provider [phone] Reason for Referral * Evaluate & Treat - Unlimited Visits (Within 10 days (routine)) - Pending Review Specialty Diagnoses / Procedures Referred By Contac t Referred To Contact Orthopaedic Surgery / Orthopedics Diagnoses Chronic pain of both shoulders Jennifer Sarkar MD [address] [place] [address] Referral ID Status Reason Start Date Expiration Date Visits Requested Visits Authorized [id number] Pending Review Specialty Services Required 03/23/[phone] Question Answer Referral Priority Within 10 days (routine) Where should this appointment be scheduled? [facility] What body part is the patient being seen for? Shoulder What condition is the patient being seen for? Arthritis including related infection * Evaluate & Treat - Unlimited Visits (Within 10 days (routine)) - Pending Review Specialty Diagnoses / Procedures Referred By Contac t Referred To Contact Pulmonary Diseases / Pulmonary Diagnoses Nocturnal hypoxemia Severe obstructive sleep apnea Restrictive lung disease Chronic right-sided heart failure (HCC) At high risk for aspiration Granulomatous lung disease (HCC) Jennifer Sarkar MD [address] [place] [address] Referral ID Status Reason Start Date Expiration Date Visits Requested Visits Authorized [id number] Pending Review Specialty Services Required 03/23/[phone] Question Answer Referral Priority Within 10 days (routine) Where should this appointment be scheduled? [facility] Reason for Referral? Other Reason for Visit * Reason Comments Emergency Department Follow-Up [facility] ER Encounter Details Date Type Department Care Team (Late st Contact Info) Description 03/23/2023 11:20 AM EST [facility] [place] [address] [facility] [place] [address] Jennifer Sarkar MD [address] [facility] [place] [address] Hospital discharge follow-up*; Closed fracture of sacrum with routine healing, unspecified portion of sacrum, subsequent encounter; Ambulatory dysfunction; Recurrent falls; Chronic respiratory failure with hypoxia (HCC); HTN, GOAL BELOW 140/90; Coronary artery disease involving [place] coronary artery of [place] heart without angina pectoris; Dyslipidemia, goal LDL below 70; Nocturnal hypoxemia; Severe obstructive sleep apnea; Restrictive lung disease; Chronic right-sided heart failure (HCC); Senile osteoporosis; Essential tremor; Current moderate episode of major depressive disorder without prior episode (HCC); SPINAL STENOSIS-LUMBAR; At high risk for aspiration; Granulomatous lung disease (HCC); Chronic pain of both shoulders Allergies Active Allergy Reactions Criticality Noted Date Comments Food (See Comments) 03/21/2018 Other reaction(s): WAS TOLD NOT TO TAKE grapefruit Tramadol Other (Please comment) High 10/06/2020 Hallucinations documented as of this encounter (statuses as of 04/10/2023) Medications Medication Sig Dispensed Refills Start Date [...] Active Additional Information Patient taking differently:1,000 mg [id number] PRN, ,may take 3rd dose in between [...] DEC CITALOPRAM TO 20MG 90 Capsule 1 06/20/20 23 Active Meclizine HCl 12.5 MG Oral Tablet (Antivert)Indication s:Dizziness,Benign paroxysmal positional vertigo, unspecified laterality TAKE 1 TABLET BY MOUTH THREE TIMES A DAY NEEDED FOR DIZZINESS 30 Tablet 1 08/11/19 Active Pantoprazole Sodium 20 MG Oral Tablet Delayed Release (Protonix)Indication s:History of gastroesophageal reflux (GERD),History of esophageal dilatation Take 1 Tablet by mouth at bedtime. 30 minutes before the first meal of the day. Do not crush, split or chew the tablet--dec 12/21/2021(nml EGD 08/21/21)--chg timing 05/18/2022 90 Tablet 3 08/10/19 Active Additional Information Patient taking differently:20 mg OralDaily(AM), (No instructions reported), Reported on 12/21/2022 Montelukast Sodium 10 MG Oral Tablet (Singulair)Indicatio ns:Chronic pansinusitis Take 1 Tablet by mouth in the morning. St 09/01/2022. 90 Tablet 3 09/02/19 Active Furosemide 20 MG Oral Tablet (Lasix)Indications:C hronic right-sided heart failure (HCC),Coronary artery disease involving [place] coronary artery of [place] heart without angina pectoris,Bilateral leg edema TAKE BY MOUTH 2 TABLETS IN THE MORNING. TAKE ADDITIONAL ONE FOR THREE DAYS AND DIRECTED. 270 Tablet 3 10/09/19 Active Levothyroxine Sodium 112 MCG Oral Tablet (Levoxyl)Indications :Acquired hypothyroidism Take 1 Tablet by mouth in the morning. (at least 30 min prior to breakfast or other meds)--12/03/2022, lab in Feb. 90 Tablet 0 12/04/19 Active Benzonatate 100 MG Oral CapsuleIndications:A spiration into airway, subsequent encounter Take 1 Capsule by mouth 3 times a day as needed for Cough. 30 Capsule 1 12/21/19 Active Clopidogrel Bisulfate 75 MG Oral Tablet (pLAVix)Indications: S/P primary angioplasty with coronary stent TAKE 1 TABLET DAILY 90 Tablet 1 02/12/20 Active oxyCODONE HCl 5 MG Oral Tablet (Oxy IR) Take 1 Tablet by mouth every 8 hours as needed for Pain, Severe. 0 01/10/20 Active oxygen 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:Chron ic respiratory failure with hypoxia (HCC),Chronic right-sided heart failure (HCC),Granulomatous lung disease (HCC) Use 3lpm continuous, increased to 4lpm with exertion. Changed 03/23/23 1 Each 0 04/10/19 24 Active oxygen 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:Granu lomatous lung disease (HCC),Chronic right-sided heart failure (HCC),Chronic respiratory failure with hypoxia (HCC) Use 2 LPM with exertion. Portable oxygen tanks needed 1 Each 0 11/15/19 22 024 Discontinued documented as of this encounter (statuses as of 04/10/2023) Active Problems Problem Noted Date Diagnosed Date Hypercalcemia 12/03/2022 Supplemental oxygen dependent 05/06/2022 Nasal septal perforation 05/06/2022 Chronic respiratory failure with hypoxia 022 Granulomatous lung disease 09/18/2021 Chronic rhinitis 06/10/2021 Schatzki's ring of distal esophagus 06/10/2021 Chronic right-sided heart failure 04/08/2020 Coronary artery disease invo lving [place] coronary artery of [place] heart without angina pectoris 11/21/2018 Abnormality of [...] Overview: 3 LPM at bedtime Health Care Apptio SPINAL STENOSIS-LUMBAR 07/29/2005 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 Essential tremor documented as of this encounter (statuses as of 04/10/2023) Resolved Problems Problem Noted Date Diagnosed Date [...] and draped in usual sterile manner. 14 Slovak flexible cystoscope inserted into urethra and guided into bladder under direct vision. Findings :normal bladder mucosa, normal anatomical position of ureteral orifices.Ureteral stent removed completely Calculus of ureter 04/01/2005 8 ADVANCE DIRECTIVE INFORMATION 07/27/2004 07/21/2016 Overview: Patient does not have an advanced directive. Patient given information booklet. Bacterial pneumonia 07/31/2002 09/17/19 16 Depression with anxiety 11/18/2000 1002/2017 HYPERTENSION NOS 01/13/2009 Overview: Modified per HTN protocol #16. Screening for prostate cancer 01/03/2007 Asthma, allergic 04/22/2009 Osteoporosis 02/24/2017 documented as of this encounter (statuses as of 04/10/2023) Immunizations Name Administration Dates Next Due COVID-19 mRNA, LNP-s, No Pre serve, 2-Dose Series (myOrder) 05/14/2020,04/18/2020 H1N1 2009 Influenza, IM 04/22/2009 PPD [...] Sign Reading Time Taken Comments Blood Pressure 112/70 03/23/2023 11:19 AM EST Pulse 69 03/23/2023 11:19 AM EST Temperature 36.9 C (98.4 F) 03/23/2023 1 1:19 AM EST Respiratory Rate - - Oxygen Saturation 90% 03/23/2023 11: 19 AM EST Inhaled Oxygen Concentration - - Weight 71.6 kg (157 lb 14.4 oz) 024 11:19 AM EST Height 165.1 cm (5' 5") 03/23/2023 11:1 9 AM EST Body Mass Index 26.28 03/23/2023 11:19 AM EST documented in this encounter Progress Notes * Jennifer Sarkar MD - 03/23/2023 12:01 PM EST SUBJECTIVE: Fabian Starks is a 82 year old male. Chief Complaint Patient presents with Emergency Department Follow-Up [facility] ER 03/12/23 HPI: Patient presents today for hospital follow-up appointment. Wt Readings from Last 6 Encounters: 03/23/23 71.6 kg (157 lb 14.4 oz) 12/21/22 73.3 kg (161 lb 8 oz) 12/20/22 74.5 kg (164 lb 3.2 oz) 12/01/22 73.7 kg (162 lb 6.4 oz) 09/01/22 80.5 kg (177 lb 6.4 oz) 08/11/22 78 kg (172 lb 0.6 oz) BP Readings from Last 6 Encounters: 03/23/23 112/70 12/21/22 112/62 12/20/22 110/70 12/01/22 110/72 09/01/22 110/78 08/11/22 130/78 Reviewed available hospital records including history and physical, labs, imaging and discharge summary. History of CAD H/o AMI SP BMStent [...] 2019 --had wish to follow-up and had mlmumcowjpd46/4/2022 which he missed Admitted 10/14/2022, discharged 11/13/2022 with a final diagnosis of acute on chronic respiratory failure, pulmonary edema, COPD exacerbation, possible MRSA pneumonia versus aspiration pneumonia, probable C diff colitis. -sent to short-term rehab at [facility] and discharged from there on 11/26/2022 with home health through [facility]. Was treated with IV vancomycin and cefepime for 10 days, initially placed on BiPAP and weaned off, continued on supplemental oxygen, home diuretics. Stool studies positive for C diff gene negative for toxin, completed 10 day course of p.o. vancomycin. 08/06/22--ECHO- LVEF normal 59% with a small-sized apical wall motion abnormality. Aortic sclerosis without stenosis. Mild MR. RV normal in size and function. hosp f/u 12/21/22 -Admitted to [facility] 12/08/2022 discharged 12/19/2022 with diagnosis of ambulatory dysfunction, suspect aspiration pneumonia. --he had been trying to get [...] started on Augmentin. Speech therapy consulted-video swallow ypjyj-fruy-bq-moderate oropharyngeal dysphagia with suspected esophageal dysfunction, aspiration [...] for swelling or shortness of breath, levothyroxine 112mcg-we dec 12/03/22, lab in feb, meclizine p.r.n., Protonix 20 mg, duloxetine 30 mg, O2 2l with exertion. IV Reclast yearly;--LD 10/14/22 -next rheumatology follow-up 04/12/2023 --dexa needs ann-last in 2019, had order from [facility] 08/12 but not ann yet -seen yesterday for cough, got RF Tessalon, respiratory pathogen panel positive for rhino virus. -daughter accompanies him today again. He has not been using the Combivent, has a cough seems productive of sputum which he is unable to expectorate. No fever or chills. No leg edema. Denies diarrhea. [facility] nurse came in yesterday, to start PT, [...] VD PTH,PHOS,refer to endocrinology eval of hypercalcemia 03/23/23--was admitted to [facility] 01/03/23 to 01/09/2023 and discharged to rehab [facility] 01/22/2023, seen in the ED 03/12/2023 Accompanied by his neighbor today. Daughter is in the process of finding permanent placement at assisted living facility Has nursing through [facility] home health. Reviewed discharge instructions from [facility], discharged on oxygen 3 L was to have blood work done for TSH, recommended regular/dental soft diet, thin liquids with aspiration precautions, no straws, walking independently with walker or grab bar. Seen in the ER on the March 12 status post fall at home 2 days ago where he had tripped on his home oxygen, brought in by EMS. He would several falls in the past few months over his oxygen tubing, had gone to the basement to reset his Breaker box, got short of breath upon going down the stairs and was unable to get back up. Labs-normal CBC, BMP except bicarb 32, normal LFT, negative troponin, respiratory panel negative. Chest x-ray -no acute findings, chronic scoliosis, bibasilar subsegmental atelectasis, degenerative changes shoulders, X-ray of the forearm and humerus negative. Was given oxycodone for p.r.n. use at discharge from the [facility], is asking for refill, given his history of falls try to avoid narcotics. Home health has been feeling his medication boxes he wants them to continue to come in for few moreweeks Discussed about covid booster, RSV vaccine. Keep cardiology appointment in April , also need to [facility] pulm appt Patient Active Problem List Diagnosis Code Acquired [...] of major depressive disorder without prior episode ([facility]) F32.1 Displaced fracture of middle third of navicular bone of right wrist with delayed healing S62.021G Coronary artery disease involving [place] coronary artery of [place] heart without angina pectoris I25.10 Abnormality of gait R26.9 Chronic right-sided heart failure ([facility]) I50.812 Chronic rhinitis J31.0 Schatzki's ring of distal esophagus K22.2 Granulomatous lung disease ([facility]) J84.10 Chronic respiratory failure with hypoxia ([facility]) J96.11 Supplemental oxygen dependent Z99.81 Nasal septal perforation J34.89 Hypercalcemia E83.52 Current Outpatient Medications Medication Sig Dispense Refill NITROGLYCERIN 0.4 MG SL SUBL 1every 5 min as needed with chest pain up to 3 doses in 15 minutes 25 Tab 11 oxygen IN GAS Use 2 LPM with exertion. Portable oxygen tanks needed 1 Each 0 Acetaminophen 500 MG Oral Tablet (Tylenol) Take by mouth 2 Tablets in the morning AND 2 Tablets before bedtime. ,may take 3rd dose in between --12/21/2021. (Patient taking differently: Take 2 Tabletsby mouth every 6 hours as needed. ,may take 3rd dose in between --12/21/2021) 1 Tablet 0 Ipratropium-Albuterol 20-100 MCG/ACT Inhalation Aerosol Solution (Combivent Respimat) Inhale 1 Puffby mouth in the morning and 1 Puff at noon and 1 Puff in the evening and 1 Puff before bedtime. 4 g2 Albuterol Sulfate HFA 108 (90 Base) MCG/ACT Inhalation Aerosol Solution Inhale 2 Puffs by mouth every 6 hours as needed for Wheezing. 18 g 0 Rosuvastatin Calcium 5 MG Oral Tablet (Crestor) Take 1 Tablet by mouth in the morning. Restart 04/16/2022. 90 Tablet 3 Saline Nasal Gel (Nasogel) Administer into each nostril daily. For dryness(nasal septal perforation) 14 g 0 Citalopram Hydrobromide 40 MG Oral Tablet (CeleXA) Take 0.5 Tablets by mouth in the morning. --dec dose 05/18/2022 as adding duloxetine 30 In evening from 05/18/2022. 90 Tablet 3 Propranolol HCl 20 MG Oral Tablet (Inderal) Take 1 Tablet by mouth in the morning and 1 Tablet at noon and 1 Tablet before bedtime. 270 Tablet 3 DULoxetine HCl 30 MG Oral Capsule Delayed [...] crush, split or chew the tablet--12/21/2021(nml EGD 08/21/21)--[facility] timing 05/18/2022 (Patient taking differently: Take 1 Tablet by mouth in the morning.) 90 Tablet 3 Montelukast Sodium 10 MG Oral Tablet (Singulair) Take 1 Tablet by mouth in the morning. St 09/01/2022. 90 Tablet 3 Furosemide 20 MG Oral Tablet (Lasix) TAKE BY MOUTH 2 TABLETS IN THE MORNING. TAKE ADDITIONAL ONE FOR THREE DAYS AND DIRECTED. 270 Tablet 3 Levothyroxine Sodium 112 MCG Oral Tablet (Levoxyl) Take 1 Tablet by mouth in the morning. (at least30 min prior to breakfast or other meds)--12/03/2022, lab in Feb. 90 Tablet 0 Benzonatate 100 MG Oral Capsule Take 1 Capsule by mouth 3 times a day as needed for Cough. 30 Capsule 1 Clopidogrel Bisulfate 75 MG Oral Tablet (pLAVix) TAKE 1 TABLET DAILY 90 Tablet 1 oxyCODONE HCl 5 MG Oral Tablet (Oxy IR) Take 1 Tablet by mouth every 8 hours as needed for Pain, Severe. Zoledronic Acid 5 MG/100ML Intravenous Solution Administer 5 mg intravenously once. Yearly administration No current facility-administered medications for this visit. Review of patient's allergies indicates: Allergen Reactions Tramadol Other (Please comment) Hallucinations Food (See Comments) Other reaction(s): WAS TOLD NOT TO TAKE grapefruit Immunization History Administered Date(s) Administered COVID-19 mRNA, LNP-s, No Preserve, 2-Dose Series (myOrder) 04/18/2020, 05/14/2020 H1N1 2009 Influenza, IM 04/22/2009 PPD 08/11/2020, 08/20/2020, 11/13/2022, 11/22/2022, 01/09/2023, 01/18/2023 Pneumococcal Conjugate Vacc, 13 Valent (Prevnar) 11/12/2014 Pneumococcal Polysaccharide PPV23 (Pneumovax) 02/25/2002, 07/20/2007 Season Influenza, Quad, PF, Adjuvanted, 65+ Yrs, IM (FLUAD) 11/29/2019 Seasonal Influenza, PF, 6 M & above, IM , (FluLaval or Fluzone) 11/29/2016, 11/21/2017, 04/06/2022 Seasonal Influenza, Quadrivalent Hd (Fluzone Hd) 12/09/2020, 04/06/2022, 11/22/2022 Seasonal Influenza, Quadrivalent, No Preserve, IM 04/22/2009, 12/25/2015 Seasonal Influenza, Split, IIV3, With Preserve, Inj 01/17/2002, 12/19/2002, 02/26/2004, 12/14/2004,12/15/2005, 01/03/2007, 12/14/2007, 12/18/2008, 12/23/2009, 11/10/2010, 01/21/2012, 10/31/2012, 11/26/2013, 11/12/2014 Seasonal Influenza, Trivalent, Adjuvanted, 65+ yrs 11/21/2018 TD, Preservative Free 12/14/2007 TDAP (age 10 and older)(Boostrix) 07/19/2018 Zoster Vaccine Recombinant (Shingrix) 09/17/2019, 01/28/2020 OBJECTIVE: BP 112/70 | Pulse 69 | Temp 36.9 C (98.4 F) (Tympanic) | Ht 1.651 m (5' 5") | Wt 71.6 kg (157 lb 14.4 oz) | SpO2 90% | BMI 26.28 kg/m | BSA 1.81 m PHYSICAL EXAM: General: alert, healthy, no distress, well nourished and well developed Eyes: conjunctiva non-injected, sclera white, gaze conjugate Ears: pinna normal shape and color Last [...] slow, motor no focal deficits, Neg cerebellar signs.-haxf-ll-mwdq, dysdiadochokinesis, Ext--+tremors Back--mild left convex lumbar scoliosis , dec rom shoulders. Gait with cane-slow Abdomen: Soft, non-tender,small umb hernia, normal bowel sounds, no masses or organomegaly, no bruits Extremities:1+pitting ,no clubbing, no cyanosis with O2. TSH Results: Lab Results Component Value Date/Time TSH - [facility] 0.28 12/01/2022 12:22 PM TSH - [facility] 1.65 08/11/2022 10:27 AM TSH - [facility] 4.22 (H) 05/18/2022 12:54 PM TSH - [facility] 1.32 01/02/2020 12:23 PM TSH - [facility] 1.54 11/21/2018 02:46 PM TSH - [facility] 9.66 (H) 07/19/2018 09:48 AM ASSESSMENT/PLAN: Hospital discharge follow-up (Primary) Closed fracture of sacrum with routine healing, unspecified portion of sacrum, subsequent encounter Resolved pain. Ambulatory dysfunction Recurrent falls Chronic respiratory failure with hypoxia (HCC) - PULSE OX W/ REST/EXERCISE, MULTIPLE (OP) - oxygen IN GAS; Use 3lpm continuous, increased to 4lpm with exertion. Changed 03/23/23 HTN, GOAL BELOW 140/90 Coronary artery disease involving [place] coronary artery of [place] heart without angina pectoris Dyslipidemia, goal LDL below 70 Nocturnal hypoxemia - PULMONARY REFERRAL OP - PULSE OX W/ REST/EXERCISE, MULTIPLE (OP) Severe obstructive sleep apnea - PULMONARY REFERRAL OP - PULSE OX W/ REST/EXERCISE, MULTIPLE (OP) Restrictive lung disease - PULMONARY REFERRAL OP Chronic right-sided heart failure (HCC) - PULMONARY REFERRAL OP - oxygen IN GAS; Use 3lpm continuous, increased to 4lpm with exertion. Changed 03/23/23 Senile osteoporosis Essential tremor Current moderate episode of major depressive disorder without prior episode (HCC) SPINAL STENOSIS-LUMBAR At high risk for aspiration - PULMONARY REFERRAL OP Granulomatous lung disease (HCC) - PULMONARY REFERRAL OP - oxygen IN GAS; Use 3lpm continuous, increased to 4lpm with exertion. Changed 03/23/23 Chronic pain of both shoulders - ORTHOPAEDICS REFERRAL OP Pulse ox on room air at rest 78%, with 3 L 91%, with exercise 86% -advised nurse to let him know toincrease to [address] current meds, continue using walker, fall aspiration precautions. Follow up with pulmonology Avoid narcotics. Tylenol 500 mg 2 tab q8 hrs prn For pain. [facility] fu ortho Follow Up: Return in about 3 months (around 06/21/2023), or if symptoms worsen or fail to improve, for Return with Physician. | For: Return with Physician | Check-out note: Ann dexa soon, [facility] pulm appt TSH today (This note was completed using the dictation [...] with plan of care. Jennifer Sarkar MD 03/23/2023 documented in this encounter Nursing Notes * Rebeka Shipley LPN - 03/23/2023 11:19 AM EST Chief Complaint Patient presents with Emergency Department Follow-Up [facility] ER 03/12/23 documented in this encounter Plan of Treatment Upcoming Encounters Date Type Department Care Team (Late st Contact Info) Description 04/14/2023 2:00 PM EST Office Visit Orthopaedics [facility] [address] [facility] [place] [address] Chase Paz MD [address] [facility] [place] [phone] 06/14/2023 9:00 AM EDT Imaging Radiology, [address] [place] [address] 06/22/2023 5:00 PM EDT Office Visit General Internal Medicine [facility] [address] [facility] [place] [address] Jennifer Sarkar MD [address] [facility] [place] [address] 08/03/2023 9:30 AM EDT Office Visit Urology, [facility] [address] [facility] [place] [address] Man Gu MD [address] [facility] [address] [place] [address] 08/11/2023 8:00 AM EDT Office Visit Rheumatology [address] [place] [address] Meryl Santiago CRNP [address] [place] [address] [place] [address] 10/20/2023 7:00 AM EDT Office Visit Nephrology, [facility] [address] [facility] [place] [address] Yumiko Philippe MD [address] [facility] [place] [address] Scheduled Procedures Name Priority Associated Diagnoses Date/Ti me COLONOSCOPY FLEXIBLE PROXIMAL DIAGNOSTIC Recall History of colon polyps Scheduled Referrals Name Type Priority Associated Diagnoses Orde r Schedule PULMONARY REFERRAL OP Referral Within 10 days (routine) Nocturnal hypoxemia Severe obstructive sleep apnea Restrictive lung disease Chronic right-sided heart failure (HCC) At high risk for aspiration Granulomatous lung disease (HCC) Ordered: 03/23/2023 ORTHOPAEDICS REFERRAL OP Referral Within 10 days (routine) Chronic pain of both shoulders Ordered: 03/23/2023 Health Maintenance Due Date Last Done Comments [...] D LEVEL ONCE IN A LIFETIME-USE SMARTSET# [id number] Completed 12/01/2022, 09/09/2021, 04/08/2021, Additional history exists [...] this encounter Medical Devices Implanted Type Area Senior Linux Unix Engineer Device Identifier Shelf Expiration Date Model / Serial / Lot Lens Intraoc 23.0 - [id number] - [id number] Implanted:Qty: 1 on 12/21/2016 by Raj Bernard MD at [facility] Left: Eye [employer] 06/20/2021 [id number] / [id number] / Lens Intraoc 22.0 - [id number] - [id number] Implanted:Qty: 1 on 01/06/2017 by Raj Bernard MD at [facility] Right: Eye [employer] 08/20/2021 [id number] / [id number] / [id number] documented as of this encounter Procedures Procedure Name Priority Date/Time Associated Diagnosis Comments PULSE OX W/ REST/EXERCISE, MULTIPLE (OP) Routine 03/23/2023 Chronic respiratory failure with hypoxia (HCC) Nocturnal hypoxemia Severe obstructive sleep apnea documented in this encounter Results * PULSE OX W/ REST/EXERCISE, MULTIPLE (OP) (03/23/2023) Pulse Oximetry-Initia l Rest 78 Comment:Room air Pulse Oximetry-During Exercise 86 Comment:3lpm Pulse Oximetry-Post Exercise 91 Comment:3lpm at rest 03/23/2023 Jennifer Sarkar MD MEDICINE documented in this encounter Visit Diagnoses Diagnosis Hospital discharge follow-up- Primary Other follow-up examination Closed fracture of sacrum with routine healing, unspecified portion of sacrum, subsequent encounter Ambulatory dysfunction Recurrent falls Personal history of fall Chronic respiratory failure with hypoxia (HCC) Chronic respiratory failure HTN, GOAL BELOW 140/90 Unspecified essential hypertension Coronary artery disease involving [place] coronary artery of [place] heart without angina pectoris Dyslipidemia, goal LDL below 70 Other and unspecified hyperlipidemia Nocturnal hypoxemia Hypoxemia Severe obstructive sleep apnea Obstructive sleep apnea (adult) (pediatric) Restrictive lung disease Other diseases of lung, not elsewhere classified Chronic right-sided heart failure (HCC) Congestive heart failure, unspecified Senile osteoporosis Essential tremor Essential and other specified forms of tremor Current moderate episode of major depressive disorder without prior episode (HCC) SPINAL STENOSIS-LUMBAR Spinal stenosis, lumbar region, without neurogenic claudication At high risk for aspiration Other specified conditions influencing health status Granulomatous lung disease (HCC) Other diseases of lung, not elsewhere classified Chronic pain of both shoulders Pain in joint, shoulder region documented in this encounter Advance Directives Latest [...] the patient have Health Care Power of Water Taxi Captain? No Care Teams Corporate Compliance Manager Relationship Specialty Start Date End Date Jennifer Sarkar MD [address] [place] [address] PCP - General Internal Medicine 10/06/20 documented as of this encounter
--- OUTSIDE RECORDS SUMMARY | 2023-07-03 07:44 | External Medical Summary | Summary of Care ---
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 [facility] Comments Bilateral LT > RT rotator cuff tears. Reason for Visit * Reason Comments Joint Pain Shoulder pain * Evaluate & Treat - Unlimited Visits (Within 10 days (routine)) - Pending Review Specialty Diagnoses / Procedures Referred By Derek knight Referred To Contact Orthopaedic Surgery / Orthopedics Diagnoses Chronic pain of both shoulders Jennifer Sarkar MD [address] [place] [address] Referral ID Status Reason Start Date Expiration Date Visits Requested Visits Authorized [id number] Pending Review Specialty Services Required 03/23/[phone] Encounter Details Date Type Department Care Team (Late st Contact Info) Description 04/15/2023 2:00 PM EST Office Visit Orthopaedics [facility] [address] [place] [address] Chase Paz MD [address] [place] [phone] Chronic pain of both shoulders [M25.511, G89.29, M25.512]*; Nontraumatic complete tear of right rotator cuff; Nontraumatic complete tear of left rotator cuff Allergies Active Allergy Reactions Criticality Noted Date Comments Food (See Comments) 03/21/2018 Other reaction(s): WAS TOLD NOT TO TAKE grapefruit Tramadol Other (Please comment) High 10/06/2020 Hallucinations documented as of this encounter (statuses as of 04/29/2023) Medications Medication Sig Dispensed Refills Start Date [...] Active Additional Information Patient taking differently:1,000 mg [id number] PRN, ,may take 3rd dose in between [...] right-sided heart failure (HCC),Coronary artery disease involving [place]cree coronary artery of [place] heart without angina pectoris,Bilateral leg edema TAKE [...] Changed 03/23/23 1 Each 0 4 Active Hospital, Clinic, or Other Facility Administered Medication Ordered Dose Route Frequency Start Date End Date Status lidocaine 1% 1 mL - triamcinolone acetonide 40 mg/mL 1 mL inj 2 mLIndications:Nontraumatic complete tear of right rotator cuff,Nontraumatic complete tear of left rotator cuff 2 mL IJ ONCE 04/18/2023 04/15/2023 Ended lidocaine 1% 1 mL - triamcinolone acetonide 40 mg/mL 1 mL inj 2 mLIndications:Nontraumatic complete tear of right rotator cuff,Nontraumatic complete tear of left rotator cuff 2 mL IJ ONCE 04/18/2023 04/15/2023 Ended documented as of this encounter (statuses as of 04/29/2023) Active Problems Problem Noted Date Diagnosed Date Hypercalcemia 12/03/2022 Supplemental oxygen dependent 05/06/2022 Nasal septal perforation 05/06/2022 Chronic respiratory failure with hypoxia 022 Granulomatous lung disease 09/18/2021 Chronic rhinitis 06/10/2021 Schatzki's ring of distal esophagus 06/10/2021 Chronic right-sided heart failure 04/08/2020 Coronary artery disease invo lving chippewa-cree coronary artery of [place] heart without angina pectoris 11/21/2018 Abnormality of [...] as of this encounter (statuses as of 04/29/2023) Resolved Problems Problem Noted Date Diagnosed Date [...] and draped in usual sterile manner. 14 Sami flexible cystoscope inserted into urethra and guided [...] as of this encounter (statuses as of 04/29/2023) Immunizations Name Administration Dates Next Due COVID-19 mRNA, LNP-s, No Pre serve, 2-Dose Series ([employer] 05/14/2020,04/18/2020 H1N1 2009 Influenza, IM 04/22/2009 PPD 01/18/2023, 3,11/22/2022,11/13,08/20/2020,08/11/2020 Pneumococcal Conjugate Vacc, 13 Valent (Prevnar) 11/12/2014 Pneumococcal Polysaccharide PPV23 (Pneumovax) 07/20/2007,02/25/2002 Season Influenza, Quad, PF, Adjuvanted, 65+ Yrs, IM (FLUAD) 11/29/2019 Seasonal Influenza, PF, 6 M & above, IM , (FluLaval or Fluzone) 04/06/2022,11/21/2017,11/29/2016 Seasonal Influenza, Quadriva lent Hd (Fluzone Hd) 11/22/2022,04/06/2022,12/09/2020 Seasonal Influenza, Quadriva lent, No Preserve, IM 12/25/2015,04/22/2009 Seasonal Influenza, Split, I IV3, With Preserve, Inj 11/12/2014,11/26/2013,10/31/2012,01/20,11/10/2010,12/23/2009,12/18/2008 ,12/14/2007,01/03/2007,12/15/2005,11/22,02/26/2004,12/19/2002, 2 Seasonal Influenza, Trivalen t, Adjuvanted, 65+ yrs [...] on file documented as of this encounter Progress Notes * Chase Paz MD - 04/15/2023 2:39 PM EST CHIEF COMPLAINT: Chief Complaint Patient presents with Joint Pain Shoulder pain Impression: M75.121 Nontraumatic complete tear of right rotator cuff (primary encounter diagnosis) M75.122 Nontraumatic complete tear of left rotator cuff Plan: We discussed the diagnosis and treatment options with the patient today. Patient's symptoms today are consistent with bilateral rotator cuff tears with the left worse than right. Patient is requesting cortisone injections today. We feel that he would benefit from a course of physical therapy for strengthening. Follow Up: Return for Follow up with nonoperative sports medicine or Joel Cristina in 3 months. | For: Follow up with nonoperative sports medicine or Joel Cristina in 3 months There are no Patient Instructions on file for this visit. Injection Procedure Note: BILATERAL Shoulder: Time out: Prior to injection, a time out was called to confirm the administration of appropriate medicine, patient name, procedure and confirm to the best of our ability and knowledge the presence of any necessary risks and benefits. Patient verbalizes understanding. Consent obtained. Sterile techinique applied. Skin was prepped with Hibiclens swab. The right and left shoulder subacromial space was injected using 1.5 inch, 25 gauge needle with 1 mL 0.5% ropivacaine, 1 mL 1% lidocaine and 1 mL Depo-Medrol 40 mg/mL. Skin cleansed with alcohol and Band-Aid placed. Patient toleratedprocedure with no significant bleeding or adverse reaction. Patient instructed to call or return to clinic for fever or warmth and redness at injection site for potential infection. Patient also advised as to potential for steroid flare reaction including increased pain and redness at injection site which should be treated with ice and resolve within 24 hours. HISTORY OF PRESENT ILLNESS: Fabian Starks is a 82 year old hand dominant male who lives alone on home oxygen, who presents to orthopedic Sports Medicine for consultation at the request of Jennifer Sarkar MD to us with a history of right shoulder pain and left shoulder pain . Patient states that he has pain with raising the arms above his head. States that he was diagnosed with a left small rotator cuff tear over 6 years ago. Hehas had no formal treatment for the shoulders. He presents to our office today for evaluation. Wakes at night? no. Physical Therapy? no. Injections? no. Nursing Notes: Zuhair Mon LPN 04/15/23 2205 Addendum Referred by Jennifer Sarkar MD for shoulder pain. Pt states he fell in his kitchen in October 2022- landed on right arm. Was told he has small tear in rotator cuff left shoulder by Joel Cristina PA-C April 2021. Performed formal PT at [facility]. Pt is LHD. Zuhair Jean Baptiste LPN Past Surgical History: Procedure Laterality Date ABDOMEN (KUB) 1 VIEW 03/30/2005 CATHETERIZE LEFT HEART THRU SKIN 10/09/2008 LEFT HEART CATH, PERCUTANEOUS performed by ANSHU FOFANA at [facility] COLONOSCOPY W/ LESION REMOVAL, SNARE 02/01/2007 repeat in 5-10 yrs COLONOSCOPY, DIAGNOSTIC (RECTUM) 06/03/2017 adenomatous polyp, repeat 5 yrs/[facility] CYSTOSCOPY 03/30/2005 stent removal EGD, FLEXIBLE, DIAGNOSTIC 11/24/2012 UPPER GI ENDOSCOPY DIAGNOSTIC performed by Nakia Benton DO at [facility] EGD, FLEXIBLE, DIAGNOSTIC 07/15/2015 Schatzki ring, sm HH/[facility] EGD, FLEXIBLE, DIAGNOSTIC 03/21/2018 erosive gastropathy, tortous esophagus, Schatzki ring/[facility] EGD, FLEXIBLE, DIAGNOSTIC 08/21/2021 sm hiatal hernia / [facility] FRAGMENT KIDNEY STONE BY SHOCK WAVE 03/26/2005 ESWL (Extracorporeal Shock Wave Lithotripsy) INFORMATION bilateral hernia repair REMOVAL OF TONSILS, UNDER AGE 12 REMOVE CATARACT, INSERT LENS PROSTH Left 12/21/2016 left EXTRACAPSULAR CATARACT REMOVAL WITH INTRAOCULAR LENS performed by Raj Bernard MD at [facility] REMOVE CATARACT, INSERT LENS PROSTH Right 01/06/2017 right EXTRACAPSULAR CATARACT REMOVAL WITH INTRAOCULAR LENS performed by Raj Bernard MD at [facility] Review of patient's allergies indicates: Allergen Reactions Tramadol Other (Please comment) Hallucinations Food (See Comments) Other reaction(s): WAS TOLD NOT TO TAKE grapefruit Current Outpatient Medications Medication Sig Dispense Refill NITROGLYCERIN 0.4 MG SL SUBL 1every 5 min as needed with chest pain up to 3 doses in 15 minutes 25 Tab 11 Zoledronic Acid 5 MG/100ML Intravenous Solution Administer 5 mg intravenously once. Yearly administration Acetaminophen 500 MG Oral Tablet (Tylenol) Take [...] crush, split or chew the tablet--12/21/2021(nml EGD 08/21/21)--chg timing 05/18/2022 (Patient taking differently: Take 1 [...] 8 hours as needed for Pain, Severe. oxygen IN GAS Use 3lpm continuous, increased to 4lpm with exertion. Changed 03/23/23 1 Each 0 No current facility-administered medications for this visit. Social History Socioeconomic History Marital status: Number of children: 2 Occupational History Occupation: [employer] Employer: [employer] Comment: 30 yrs Tobacco Use Smoking status: Former Types: Pipe, Cigars Smokeless tobacco: Never Tobacco comments: Smoked a occasional pipe or cigar socially when was younger. Vaping Use Vaping Use: Never used Substance and Sexual Activity Alcohol use: Yes Comment: rarely Drug use: No Social Determinants of Health Food Insecurity: No Food Insecurity (03/12/2019) Hunger Vital Sign Worried About Running Out of Food in the Last Year: Never true Ran Out of Food in the Last Year: Never true Family History Problem Relation Age of Onset Diabetes Mother Type II Cancer Aunt (Unspecified) Arthritis None Cancer Other 26 lung cancer Past Medical History: Diagnosis Date Acquired hypothyroidism ANGIOPLASTY WITH CORONARY STENT TO LAD - bare Metal 10/16/2008 Calculus of ureter 04/01/2005 Chronic respiratory failure with hypoxia (HCC) 11/14/2021 Chronic right-sided heart failure (HCC) 04/08/2020 Coronary artery disease involving chippewa-cree coronary artery of [place] heart without angina pectoris 11/21/2018 Dyslipidemia, goal LDL below 100 08/28/2009 Essential tremor Gastroesophageal reflux disease without esophagitis 03/12/2019 Granulomatous lung disease (HCC) 09/18/2021 HTN, goal below 140/90 01/13/2009 Modified per HTN protocol #16. 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 Nocturnal hypoxemia 06/08/2007 3 LPM at bedtime [employer] OBSTRUCTIVE SLEEP APNEA - refuses CPAP 01/15/2008 uses oxygen at night Osteoporosis Schatzki's ring Sleep apnea, obstructive SPINAL STENOSIS-LUMBAR 07/29/2005 ROS: Constitional: No change in weight, No weakness, No fatigue, and No fevers, sweats, or chills Skin: No edema, No rash, and No itching Psychiatric: No depression, No anxiety, and No psychosis Xray: I personally reviewed the xrays. X-rays of the right shoulder today do not show any evidence fracture. No dislocation. No loose bodies. There is evidence of chronic changes to the rotator cuff footprint and the acromion. No evidence significant humeral head migration. PHYSICAL EXAM: General: generally well-nourished and in no acute distress, on home oxygen HEENT: normocephalic, atraumatic, EOMI, sclera anicteric. Psych: mood and affect normal , cooperative Card: Peripheral pulses: normal in affected extremity (s) Resp: equal chest rise, non-tachypneic, non-labored breathing Skin: no rash, normal Neuro: Coordination: normal; Sensation: normal on affected extremity (s) Skin: normal. C-Spine evaluation: Does patient have neck symptoms and/or numbness/tingling in upper extremities: no Inspection: bilateral and symmetrical without apparent abnormality Shoulder ROM: ABD (170') - Right - 90 degrees Left - 20 degrees ER (40') - Bilateral and equal Passive ER -Bilateral and equal IR (T10) - not assessed from the wheelchair FF (180') - Right - 90 degrees Left - 20 degrees Scapular elevation with forward flexion:negativeBilateral Tenderness/Location: yes - SS , Biceps , and AC Inspection AC Joint Prominence: normal Cross-arm maneuver: positive Impingement sign: positive Sulcus sign: negative Lift-off test: negative Apprehension:negative Buena's test: negative Load and shift: negative Speed's test: Positive bilaterally Drop-arm test: Positive on the left Instability Testing: Shoulder instability testing: not examined negative scapular winging negative scapular dyskinesis Strength: ABD: Right - 4+/5 Left - 3/5 ER: Right - 4+/5 Left - 3/5 IR: Right - 5-/5 Left - 5-/5 Biceps: Right - 4/5 Left - 4/5 "Empty can": Right - 4/5 Left - 0/5 Neurovascular assessment: negative for deficit Neck ROM: Extension 10 Flexion to the chest Spurlings test: Right negative Left negative Lateral bending and rotation pain: right negative left negative TTP: negative Ligamentous laxity testing: negative Bilateral Chase Paz MD Orthopaedics [address] [address] Orthopedic Sports Medicine Surgery 04/15/2023 2:39 PM This chart was completed in part utilizing [employer] Speech Voice Recognition Software. Grammatical errors, random word insertions, pronoun errors, and incomplete sentences are an occasional consequence of this system due to software limitations, ambient noise, and hardware issues. Any formal questions or concerns about the content, text, or information contained within the body of this dictation should be directly addressed to the provider for clarification. documented in this encounter Nursing Notes * Zuhair Mon LPN - 04/15/2023 1:50 PM EST Referred by Jennifer Sarkar MD for shoulder pain. Pt states he fell in his kitchen in October 2022- landed on right arm. Was told he has small tear in rotator cuff left shoulder by Joel Cristina PA-C April 2021. Performed formal PT at [facility]. Pt is LHD. Zuhair Jean Baptiste LPN documented in this encounter Miscellaneous Notes * Addendum Note - Chase Paz MD - 04/18/2023 7:28 AM ESTAddended by: CHASE PAZ on: 04/18/2023 07:28 AM Modules accepted: Orders * Addendum Note - Zuhair Mon LPN - 04/15/2023 2:59 PM ESTAddended by: ZUHAIR MON on: 04/15/2023 02:59 PM Modules accepted: Orders * Addendum Note - Zuhair Mon LPN - 04/15/2023 2:58 PM ESTAddended by: ZUHAIR MON on: 04/15/2023 02:58 PM Modules accepted: Orders documented in this encounter Plan of Treatment Upcoming Encounters Date Type Department Care Team (Late st Contact Info) Description 06/14/2023 9:00 AM EDT Imaging Radiology, [address] [place] [address] 06/22/2023 5:00 PM EDT Office Visit General Internal Medicine [facility] [address] [place] [address] Jennifer Sarkar MD [address] [place] [address] 08/03/2023 9:30 AM EDT Office Visit Urology, [facility] [address] [facility] [place] [address] Man Gu MD [address] [facility] [address] [place] [address] 08/08/2023 1:30 PM EDT Office Visit Orthopaedics [facility] [address] [place] [address] Ricardo Licona, [address] [place] [address] 08/11/2023 8:00 AM EDT Office Visit Rheumatology [facility] [address] [place] [address] Meryl Santiago CRNP [address] [place] [address] 10/20/2023 7:00 AM EDT Office Visit Nephrology, [facility] [address] [facility] [place] [address] Yumiko Philippe MD [address] [facility] [place] [address] Scheduled Procedures Name Priority Associated Diagnoses Date/Ti me COLONOSCOPY FLEXIBLE PROXIMAL DIAGNOSTIC Recall History of colon polyps Scheduled Referrals Name Type Priority Associated Diagnoses Orde r Schedule PHYSICAL THERAPY REFERRAL OP Referral Within 10 days (routine) Nontraumatic complete tear of right rotator cuff Nontraumatic complete tear of left rotator cuff Chronic pain of both shoulders [M25.511, G89.29, M25.512] Ordered: 04/15/2023 Health Maintenance Due Date Last Done Comments [...] D LEVEL ONCE IN A LIFETIME-USE SMARTSET# [id number] Completed 12/01/2022, 09/09/2021, 04/08/2021, Additional history exists [...] this encounter Medical Devices Implanted Type Area Clerk General Device Identifier Shelf Expiration Date Model / Serial / Lot Lens Intraoc 23.0 - [id number] - [id number] Implanted:Qty: 1 on 12/21/2016 by Raj Bernard MD at OR [facility] Left: Eye [employer] 06/20/2021 [id number] / [id number] / Lens Intraoc 22.0 - [id number] - [id number] Implanted:Qty: 1 on 01/06/2017 by Raj Bernard MD at OR [facility] Right: Eye [employer] 08/20/2021 [id number] / [id number] / [id number] documented as of this encounter Procedures Procedure Name Priority Date/Time Associated Diagnosis Comments XR SHOULDER, 2 OR MORE VIEWS Routine 04/15/2023 2:22 PM EST documented in this encounter Results * XR SHOULDER, 2 OR MORE VIEWS (04/15/2023 2:22 PM EST) Anatomical Region Laterality Modality Upper Extremity, Shoulder Digita l Radiography 04/19/2023 3:46 PM EST Impressions 04/19/2023 3:44 PM EST IMPRESSION No acute fracture or dislocation. Moderate glenohumeral osteoarthritis. Os acromiale. Narrative 04/19/2023 3:44 PM EST EXAM XR SHOULDER, 2 OR MORE VIEWS - 04/15/2023 2:22 pm HISTORY right shoulder pain TECHNIQUE XR SHOULDER, 2 OR MORE VIEWS RT COMPARISON None 07/14/2016 CT. FINDINGS No acute fracture or dislocation. Moderate glenohumeral osteoarthritis. Likely rotator cuff calcific tendinitis. Os acromiale is noted. Right lung calcified granuloma. Procedure Note Zoe López MD - 04/19/2023 EXAM XR SHOULDER, 2 OR MORE VIEWS - 04/15/2023 2:22 pm HISTORY right shoulder pain TECHNIQUE XR SHOULDER, 2 OR MORE VIEWS RT COMPARISON None 07/14/2016 CT. FINDINGS No acute fracture or dislocation. Moderate glenohumeral osteoarthritis.Likely rotator cuff calcific tendinitis. Os acromiale is noted. Right lung calcified granuloma. IMPRESSION IMPRESSION No acute fracture or dislocation. Moderate glenohumeral osteoarthritis. Os acromiale. Chase Paz MD RADIOLOGY (RAD G ENERAL) documented in this encounter Visit Diagnoses Diagnosis Chronic pain of both shoulders [M25.511, G89.29, M25.512]- Primary Pain in joint, shoulder region Nontraumatic complete tear of right rotator cuff Nontraumatic complete tear of left rotator cuff documented in this encounter Administered Medications Inactive Administered Medications - up to 3 most recent administrations Medication Order MAR Action Action Date Dose Rate Site lidocaine 1% 1 mL - triamcinolone acetonide 40 mg/mL 1 mL inj 2 mL 2 mL, Injection, ONCE, On Tue04/18/23 at 0800, For 1 dose, Lidocaine 1% 1mL Triamcinolone Acetonide 40 mg/mL 1 mL (Final concentration = 20 mg/mL) REFRIGERATE and SHAKE WELL Given 04/15/2023 9:06 AM EST 2 mL Shoulder Right lidocaine 1% 1 mL - triamcinolone acetonide 40 mg/mL 1 mL inj 2 mL 2 mL, Injection, ONCE, On Tue04/18/23 at 0800, For 1 dose, Lidocaine 1% 1mL Triamcinolone Acetonide 40 mg/mL 1 mL (Final concentration = 20 mg/mL) REFRIGERATE and SHAKE WELL Given 04/15/2023 9:05 AM EST 2 mL Shoulder Left documented in this encounter Advance Directives Latest [...] the patient have Health Care Power of Cereal Supervisor? No Care Teams Stress Analyst Relationship Specialty Start Date End Date Jennifer Sarkar MD [address] [facility] [place] [address] PCP - General Internal Medicine 10/06/20 documented as of this encounter
--- OUTSIDE RECORDS SUMMARY | 2023-07-03 07:44 | External Medical Summary | Summary of Care ---
Author Name Unknown Organization [facility] Address [address] [facility] [address] Phone [phone] Care Team Providers Care Gold Letterer Name Role Phone Jennifer Sarkar MD Primary Care Provider [phone] Reason for Referral * Evaluate & Treat - Unlimited Visits (Within 10 days (routine)) - Pending Review Specialty Diagnoses / Procedures Referred By Derek knight Referred To Contact Physical Therapy / Physical Medicine And Rehab Diagnoses Nontraumatic complete tear of right rotator cuff Nontraumatic complete tear of left rotator cuff Chronic pain of both shoulders [facility] [address] [facility] [address] Referral ID Status Reason Start Date Expiration Date Visits Requested Visits Authorized [id number] Pending Review Specialty Services Required 04/15/2023 999 [...] of both shoulders Jennifer Sarkar MD [address] [place] [address] Referral ID Status Reason Start Date Expiration Date Visits Requested Visits Authorized [id number] Pending Review Specialty Services Required 03/23/2023 999 999 Encounter Details Date Type Department Care Team (Late st Contact Info) Description 04/15/2023 2:00 PM EST Office Visit Orthopaedics [facility] [address] [place] [address] Chase Paz MD [address] [place] [phone] Chronic pain of both shoulders [M25.511, G89.29, M25.512]*; Nontraumatic complete tear of right rotator cuff; Nontraumatic complete tear of left rotator cuff Allergies Active Allergy Reactions Criticality Noted Date Comments Food (See Comments) 03/21/2018 Other reaction(s): WAS TOLD NOT TO TAKE grapefruit Tramadol Other (Please comment) High 10/06/2020 Hallucinations documented as of this encounter (statuses as of 04/15/2023) Medications Medication Sig Dispensed Refills Start Date [...] Active Additional Information Patient taking differently:1,000 mg [id number] PRN, ,may take 3rd dose in between [...] right-sided heart failure (HCC),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 TAKE ADDITIONAL ONE FOR THREE DAYS AND DIRECTED. 270 Tablet 3 3 Active Levothyroxine Sodium 112 MCG Oral Tablet (Levoxyl)Indications: Acquired hypothyroidism Take 1 Tablet by mouth in the morning. (at least 30 min prior to breakfast or other meds)--dec 12/03/2022, lab in Feb. 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 14 [place] flexible cystoscope inserted into urethra and guided [...] as of this encounter (statuses as of 04/15/2023) Immunizations Name Administration Dates Next Due COVID-19 mRNA, LNP-s, No Pre serve, 2-Dose Series (Cinario) 05/14/2020,04/18/2020 H1N1 2009 Influenza, IM 04/22/2009 PPD [...] no. Nursing Notes: Zuhair Mon LPN 04/15/23 0770 Addendum Referred by Jennifer Sarkar MD for [...] performed by ANSHU FOFANA at [facility] COLONOSCOPY W/ LESION REMOVAL, SNARE 02/01/2007 repeat in 5-10 yrs COLONOSCOPY, DIAGNOSTIC (RECTUM) 06/03/2017 adenomatous polyp, repeat 5 yrs/[facility] CYSTOSCOPY 03/30/2005 stent removal EGD, FLEXIBLE, DIAGNOSTIC 11/24/2012 UPPER GI ENDOSCOPY DIAGNOSTIC performed by Nakia Benton DO at [facility] EGD, FLEXIBLE, DIAGNOSTIC 07/15/2015 Schatzki ring, sm HH/[facility] EGD, FLEXIBLE, DIAGNOSTIC 03/21/2018 erosive gastropathy, [facility] EGD, FLEXIBLE, DIAGNOSTIC 08/21/2021 hiatal hernia / [facility] FRAGMENT KIDNEY STONE BY SHOCK WAVE 03/26/2005 ESWL (Extracorporeal Shock Wave Lithotripsy) INFORMATION bilateral hernia repair REMOVAL OF TONSILS, UNDER AGE 12 REMOVE CATARACT, INSERT LENS PROSTH Left 12/21/2016 left EXTRACAPSULAR CATARACT REMOVAL WITH INTRAOCULAR LENS performed by Raj Bernard MD at [facility] REMOVE CATARACT, INSERT LENS PROSTH Right 01/06/2017 right EXTRACAPSULAR CATARACT REMOVAL WITH INTRAOCULAR LENS performed by Raj Bernard MD at OR [facility] Review of patient's allergies indicates: Allergen Reactions [...] split or chew the tablet--dec 12/21/2021(nml EGD 08/21/21)--[facility] timing 05/18/2022 (Patient taking differently: Take [...] Number of children: 2 Occupational History Occupation: [employer] Employer: [id number] Comment: 30 yrs Tobacco Use Smoking [...] failure (HCC) 04/08/2020 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 Hypothyroidism Idiopathic scoliosis 03/04/2005 LUNG ANOMALY NOS copd and restrictive lung disease CXR 2004: [...] Sulcus sign: negative Lift-off test: negative Apprehension:negative Taylor's test: negative Load and shift: negative Speed's [...] testing: negative Bilateral Chase Paz MD Orthopaedics [address] [place] [address] Orthopedic Sports Medicine Surgery 04/15/2023 2:39 PM This chart was completed in part utilizing [employer] Speech Voice Recognition Software. Grammatical errors, random [...] encounter Miscellaneous Notes * Addendum Note - Zuhair Mon LPN [...] Description 06/14/2023 9:00 AM EDT Imaging Radiology, [address] [place] [address] 06/22/2023 5:00 PM EDT Office Visit General Internal Medicine [facility] [address] [place] [address] Jennifer Sarkar MD [address] [place] [address] 08/03/2023 9:30 AM EDT Office Visit Urology, [facility] 132 [place] [address] Man Gu MD 27 [facility] [address] [place] [address] 08/08/2023 1:30 PM EDT Office Visit Orthopaedics [facility] 132 [place] [address] Ricardo Licona DO 132 [place] [address] 08/11/2023 8:00 AM EDT Office Visit Rheumatology [address] [place] [address] Meryl Santiago CRNP [address] [place] [address] [place] [address] 10/20/2023 7:00 AM EDT Office Visit Nephrology, [facility] [address] [place] [address] Yumiko Philippe MD [address] [place] [address] Pending Results Name Type Priority Associated Diagnoses Date /Time XR SHOULDER, 2 OR MORE VIEWS Medical Imaging Routine 04/15/2023 2:22 PM EST Scheduled Procedures Name Priority Associated Diagnoses Date/Ti [...] D LEVEL ONCE IN A LIFETIME-USE SMARTSET# [id number] Completed 12/01/2022, 09/09/2021, 04/08/2021, Additional history exists [...] this encounter Medical Devices Implanted Type Area Mechanical Repair Worker Device Identifier Shelf Expiration Date Model / Serial / Lot Lens Intraoc 23.0 - [id number] - [id number] Implanted:Qty: 1 on 12/21/2016 by Raj Bernard MD at OR [facility] Left: Eye BAUSCH & LOMB 06/20/2021 [id number] / [id number] / Lens Intraoc 22.0 - [id number] - [id number] Implanted:Qty: 1 on 01/06/2017 by Raj Bernard MD at OR [facility] Right: Eye BAUSCH & LOMB 08/20/2021 [id number] / [id number] / [id number] documented as of this encounter Visit Diagnoses Diagnosis Chronic pain of both shoulders [M25.511, G89.29, M25.512]- Primary Pain in joint, shoulder region Nontraumatic complete tear of right rotator cuff Nontraumatic complete tear of left rotator cuff documented in this encounter Advance Directives Latest [...] the patient have Health Care Power of Gasoline Engine Assembler? No Care Teams Gold Letterer Relationship Specialty Start Date End Date Jennifer Sarkar MD 200 [place] [address] PCP - General Internal Medicine 10/06/20 documented as of this encounter
--- OUTSIDE RECORDS SUMMARY | 2023-07-03 07:44 | External Medical Summary | Summary of Care ---
Author Name Unknown Organization [facility] Address [address] [place] [address] Phone [phone] Care Team Providers Care Solar Consultant Name Role Phone Jennifer Sarkar MD Primary Care Provider [phone] Reason for Visit * Reason Onset Date Comments Appointment 04/13/2023 Encounter Details Date Type Department Care Team (Late st Contact Info) Description 04/13/2023 Telephone Orthopaedics [facility] [address] [place] [address] Chase Paz MD [address] [place] [phone] Appointment Allergies Active Allergy Reactions Criticality Noted Date Comments Food (See Comments) 03/21/2018 Other reaction(s): WAS TOLD NOT TO TAKE grapefruit Tramadol Other (Please comment) High 10/06/2020 Hallucinations documented as of this encounter (statuses as of 04/13/2023) Medications Medication Sig Dispensed Refills Start Date [...] Active Additional Information Patient taking differently:1,000 mg HaypO6C PRN, ,may take 3rd dose in between [...] chew the tablet--12/21/2021(nml EGD 08/21/21)--chg timing 05/18/2022 90 Tablet 3 3 Active Additional Information Patient taking differently:20 mg OralDaily(AM), (No instructions reported), Reported on 12/21/2022 Montelukast Sodium 10 MG Oral Tablet (Singulair)Indication s:Chronic pansinusitis Take 1 Tablet by mouth in the morning. St 09/01/2022. 90 Tablet 3 3 Active Furosemide 20 MG Oral Tablet (Lasix)Indications:Ch ronic right-sided heart failure (HCC),Coronary artery disease involving habematolel coronary artery of habematolel heart without angina pectoris,Bilateral leg edema TAKE [...] as of this encounter (statuses as of 04/13/2023) Active Problems Problem Noted Date Diagnosed Date Hypercalcemia 12/03/2022 Supplemental oxygen dependent 05/06/2022 Nasal septal perforation 05/06/2022 Chronic respiratory failure with hypoxia 022 Granulomatous lung disease 09/18/2021 Chronic rhinitis 06/10/2021 Schatzki's ring of distal esophagus 06/10/2021 Chronic right-sided heart failure 04/08/2020 Coronary artery disease invo lving habematolel coronary artery of habematolel heart without angina pectoris 11/21/2018 Abnormality of [...] as of this encounter (statuses as of 04/13/2023) Resolved Problems Problem Noted Date Diagnosed Date [...] and draped in usual sterile manner. 14 Yakut flexible cystoscope inserted into urethra and guided [...] as of this encounter (statuses as of 04/13/2023) Immunizations Name Administration Dates Next Due COVID-19 mRNA, LNP-s, No Pre serve, 2-Dose Series (Ribbit) 05/14/2020,04/18/2020 H1N1 2009 Influenza, IM 04/22/2009 PPD [...] encounter Miscellaneous Notes * Telephone Encounter - Ana Gerber OSA - 04/13/2023 12:18 PM EST Called patient that we had to CX 04-14-23 at 2:00PM We rescheduled it for 24 at 2:00PM Left a very detailed message. Thank you documented in this encounter Plan of Treatment Upcoming Encounters Date Type Department Care Team (Late st Contact Info) Description 04/15/2023 2:00 PM EST Office Visit Orthopaedics [facility] [address] [place] [address] Chase Paz MD [address] [place] [phone] 06/14/2023 9:00 AM EDT Imaging Radiology, [address] [place] [address] 06/22/2023 5:00 PM EDT Office Visit General Internal Medicine [facility] [address] [place] [address] Jennifer Sarkar MD [address] [place] [address] 08/03/2023 9:30 AM EDT Office Visit Urology, [facility] [address] [place] [address] Man Gu MD 27 [facility] [address] [place] [address] 08/11/2023 8:00 AM EDT Office Visit Rheumatology [place] [address] [address] [address] Meryl Santiago CRNP [address] [place] [address] 10/20/2023 7:00 AM EDT Office Visit Nephrology, [place] 200 [facility] [place] [address] Yumiko Philippe MD 200 [facility] [place] [address] Scheduled Procedures Name Priority Associated Diagnoses Date/Ti [...] D LEVEL ONCE IN A LIFETIME-USE SMARTSET# [id number] Completed 12/01/2022, 09/09/2021, 04/08/2021, Additional history exists [...] this encounter Medical Devices Implanted Type Area Building Consultant Device Identifier Shelf Expiration Date Model / Serial / Lot Lens Intraoc 23.0 - [id number] - [id number] Implanted:Qty: 1 on 12/21/2016 by Raj Bernard MD at OR [facility] Left: Eye BAUSCH & LOMB 06/20/2021 [id number] / [id number] / Lens Intraoc 22.0 - [id number] - [id number] Implanted:Qty: 1 on 01/06/2017 by Raj Bernard MD at OR [facility] Right: Eye BAUSCH & LOMB 08/20/2021 [id number] / [id number] / [id number] documented as of this encounter Advance Directives [...] the patient have Health Care Power of Associate Principal? No Care Teams Solar Consultant Relationship Specialty Start Date End Date Jennifer Sarkar MD 200 [place] [place] [address] PCP - General Internal Medicine 10/06/20 documented as of this encounter
--- OUTSIDE RECORDS SUMMARY | 2023-07-03 07:44 | External Medical Summary | Summary of Care ---
Author Name Unknown Organization [facility] Address [address] [facility] [place] [address] Phone [phone] Team [address] Care Court Registry Officer Name Role Phone Jennifer Sarkar MD Primary Care Provider [phone] Reason for Referral * Evaluate & Treat - Unlimited Visits (Within 10 days (routine)) - Pending Review Specialty Diagnoses / Procedures Referred By Derek knight Referred To Contact Physical Therapy / Physical Medicine And Rehab Diagnoses Nontraumatic complete tear of right rotator cuff Nontraumatic complete tear of left rotator cuff Chronic pain of both shoulders Chase [facility] [address] Referral ID Status Reason Start Date Expiration Date Visits Requested Visits Authorized [id number] Pending Review Specialty Services Required 04/15/2023 999 [...] of both shoulders Jennifer Sarkar MD [address] [place] [address] Referral ID Status Reason Start Date Expiration Date Visits Requested Visits Authorized [id number] Pending Review Specialty Services Required 03/23/2023 999 999 Encounter Details Date Type Department Care Team (Late st Contact Info) Description 04/15/2023 2:00 PM EST Office Visit Orthopaedics [facility] [address] [place] [address] Chase Paz MD [address] [place] [phone] Chronic pain of both shoulders [M25.511, G89.29, [...] Active Additional Information Patient taking differently:1,000 mg [id number] PRN, ,may take 3rd dose in between [...] right-sided heart failure (HCC),Coronary artery disease involving [place] coronary artery of [place] heart without angina pectoris,Bilateral leg edema TAKE [...] failure 04/08/2020 Coronary artery disease invo lving [place] coronary artery of [place] heart without angina pectoris 11/21/2018 Abnormality of [...] and draped in usual sterile manner. 14 Malay flexible cystoscope inserted into urethra and guided [...] mRNA, LNP-s, No Pre serve, 2-Dose Series ([facility]) 05/14/2020,04/18/2020 H1N1 2009 Influenza, IM 04/22/2009 PPD [...] no. Nursing Notes: Zuhair Mon LPN 04/15/23 9805 Addendum Referred by Jennifer Sarkar MD for [...] performed by ANSHU FOFANA at [facility] COLONOSCOPY W/ LESION REMOVAL, SNARE 02/01/2007 repeat in 5-10 yrs COLONOSCOPY, DIAGNOSTIC (RECTUM) 06/03/2017 adenomatous polyp, repeat 5 yrs/[facility] CYSTOSCOPY 03/30/2005 stent removal EGD, FLEXIBLE, DIAGNOSTIC 11/24/2012 UPPER GI ENDOSCOPY DIAGNOSTIC performed by Nakia Benton DO at [facility] EGD, FLEXIBLE, DIAGNOSTIC 07/15/2015 Schatzki ring, sm HH/[facility] EGD, FLEXIBLE, DIAGNOSTIC 03/21/2018 erosive gastropathy, tortous esophagus, Schatzki ring/[facility] EGD, FLEXIBLE, DIAGNOSTIC 08/21/2021 sm hiatal hernia / [facility] FRAGMENT KIDNEY STONE BY SHOCK WAVE 03/26/2005 ESWL (Extracorporeal Shock Wave Lithotripsy) INFORMATION bilateral hernia repair REMOVAL OF TONSILS, UNDER AGE 12 REMOVE CATARACT, INSERT LENS PROSTH Left 12/21/2016 left EXTRACAPSULAR CATARACT REMOVAL WITH INTRAOCULAR LENS performed by Raj Bernard MD at [facility] REMOVE CATARACT, INSERT LENS PROSTH Right 01/06/2017 right EXTRACAPSULAR CATARACT REMOVAL WITH INTRAOCULAR LENS performed by Raj Bernard MD at [facility] Review of patient's allergies indicates: Allergen [...] Number of children: 2 Occupational History Occupation: [employer] Employer: [employer] 0[employer] Comment: 30 yrs Tobacco Use [...] failure (HCC) 04/08/2020 Coronary artery disease involving [place] coronary artery of [place] heart without angina pectoris 11/21/2018 Dyslipidemia, goal [...] Sulcus sign: negative Lift-off test: negative Apprehension:negative [place]'s test: negative Load and shift: negative Speed's [...] testing: negative Bilateral Chase Paz MD Orthopaedics [address] [address] Orthopedic Sports Medicine Surgery 04/15/2023 2:39 PM This chart was completed in part utilizing [employer] Speech Voice Recognition Software. Grammatical errors, random [...] Description 06/14/2023 9:00 AM EDT Imaging Radiology, [address] [place] [address] 06/22/2023 5:00 PM EDT Office Visit General Internal Medicine [facility] [address] [place] [address] Jennifer Sarkar MD [address] [place] [address] 08/03/2023 9:30 AM EDT Office Visit Urology, [facility] 132 [facility] [place] [address] Man Gu MD 27 [facility] [address] [place] [address] 08/08/2023 1:30 PM EDT Office Visit Orthopaedics [facility] [address] [place] [address] Ricardo Licona, [address] [place] [address] 08/11/2023 8:00 AM EDT Office Visit Rheumatology [facility] [address] [place] [address] Meryl Santiago CRNP [address] [place] [address] 10/20/2023 7:00 AM EDT Office Visit Nephrology, [facility] 200 [facility] [place] [address] Yumiko Philippe MD 200 [facility] [place] [address] Scheduled Procedures Name Priority Associated Diagnoses Date/Ti [...] D LEVEL ONCE IN A LIFETIME-USE SMARTSET# [id number] Completed 12/01/2022, 09/09/2021, 04/08/2021, Additional history exists [...] this encounter Medical Devices Implanted Type Area Heading Matcher And Assembler Device Identifier Shelf Expiration Date Model / Serial / Lot Lens Intraoc 23.0 - [id number] - [id number] Implanted:Qty: 1 on 12/21/2016 by Raj Bernard MD at OR [facility] Left: Eye BAUSCH & LOMB 06/20/2021 [id number] / [id number] / Lens Intraoc 22.0 - [id number] - [id number] Implanted:Qty: 1 on 01/06/2017 by Raj Bernard MD at OR [facility] Right: Eye BAUSCH & LOMB 08/20/2021 [id number] / [id number] / [id number] documented as of this encounter Procedures Procedure [...] the patient have Health Care Power of Paperhanger Assistant? No Care Teams Court Registry Officer Relationship Specialty Start Date End Date Jennifer Sarkar MD 200 [place] [address] PCP - General Internal Medicine 10/06/20 documented as of this encounter
--- OUTSIDE RECORDS SUMMARY | 2023-07-03 07:44 | External Medical Summary | Summary of Care ---
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 Chronic pain of both shoulders Chase Paz MD [facility] [address] Referral ID Status Reason Start Date Expiration Date Visits Requested Visits Authorized [id number] Pending Review Specialty Services Required 04/15/2023 999 [...] of both shoulders Jennifer Sarkar MD [address] [place] [address] Referral ID Status Reason Start Date Expiration Date Visits Requested Visits Authorized [id number] Pending Review Specialty Services Required 03/23/2023 999 999 Encounter Details Date Type Department Care Team (Late st Contact Info) Description 04/15/2023 2:00 PM EST Office Visit Orthopaedics [facility] [address] [place] [address] Chase Paz MD [address] [place] [phone] Chronic pain of both shoulders [M25.511, G89.29, [...] Active Additional Information Patient taking differently:1,000 mg UniaH1F PRN, ,may take 3rd dose in between [...] right-sided heart failure (HCC),Coronary artery disease involving [place] coronary artery of [place] heart without angina pectoris,Bilateral leg edema TAKE [...] rotator cuff 2 mL IJ ONCE 04/18/2023 04/18/2023 Active lidocaine 1% 1 mL - triamcinolone acetonide 40 mg/mL 1 mL inj 2 mLIndications:Nontraumatic complete tear of right rotator cuff,Nontraumatic complete tear of left rotator cuff 2 mL IJ ONCE 04/18/2023 04/18/2023 Active documented as of this encounter (statuses as of 04/18/2023) Active Problems Problem Noted Date Diagnosed Date Hypercalcemia 12/03/2022 Supplemental oxygen dependent 05/06/2022 Nasal septal perforation 05/06/2022 Chronic respiratory failure with hypoxia 022 Granulomatous lung disease 09/18/2021 Chronic rhinitis 06/10/2021 Schatzki's ring of distal esophagus 06/10/2021 Chronic right-sided heart failure 04/08/2020 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 14 [place] Citizen flexible cystoscope inserted into urethra and guided [...] mRNA, LNP-s, No Pre serve, 2-Dose Series (Lomography) 05/14/2020,04/18/2020 H1N1 2009 Influenza, IM 04/22/2009 PPD [...] no. Nursing Notes: Zuhair Mon LPN 04/15/23 2395 Addendum Referred by Jennifer Sarkar MD for shoulder pain. Pt states he fell in his kitchen in October 2022- landed on right arm. Was told he has small tear in rotator cuff left shoulder by Joel Cristina PA-C April 2021. Performed formal PT at [facility]. Pt is LHD. Zuhair Jean Baptiset LPN Past Surgical History: Procedure Laterality Date ABDOMEN (KUB) 1 VIEW 03/30/2005 CATHETERIZE LEFT HEART THRU SKIN 10/09/2008 LEFT HEART CATH, PERCUTANEOUS performed by ANSHU FOFANA at [facility] [place] W/ LESION REMOVAL, SNARE 02/01/2007 repeat in 5-10 yrs COLONOSCOPY, DIAGNOSTIC (RECTUM) 06/03/2017 adenomatous polyp, repeat 5 yrs/[facility] CYSTOSCOPY 03/30/2005 stent removal EGD, FLEXIBLE, DIAGNOSTIC 11/24/2012 UPPER GI ENDOSCOPY DIAGNOSTIC performed by Nakia Benton DO at [facility] EGD, FLEXIBLE, DIAGNOSTIC 07/15/2015 Schatzki ring, sm HH/[facility] EGD, FLEXIBLE, DIAGNOSTIC 03/21/2018 erosive gastropathy, tortous esophagus, Schatzki ring/[facility] EGD, FLEXIBLE, DIAGNOSTIC 08/21/2021 sm hiatal hernia / [facility] FRAGMENT KIDNEY STONE BY SHOCK [...] Number of children: 2 Occupational History Occupation: [employer] Employer: [employer] 0[employer] Comment: 30 yrs Tobacco Use [...] failure (HCC) 04/08/2020 Coronary artery disease involving [place] coronary artery of [place] heart without angina pectoris 11/21/2018 Dyslipidemia, goal [...] Sulcus sign: negative Lift-off test: negative Apprehension:negative Barton's test: negative Load and shift: negative Speed's [...] testing: negative Bilateral Chase Paz MD Orthopaedics [address] [address] Orthopedic Sports Medicine Surgery 04/15/2023 2:39 PM This chart was completed in part utilizing [employer] Speech Voice Recognition Software. Grammatical errors, random [...] Description 06/14/2023 9:00 AM EDT Imaging Radiology, [address] [place] [address] 06/22/2023 5:00 PM EDT Office Visit General Internal Medicine [facility] [address] [place] [address] Jennifer Sarkar MD [address] [place] [address] 08/03/2023 9:30 AM EDT Office Visit Urology, [facility] 132 [facility] [place] [address] Man Gu MD 27 [facility] [address] [place] [address] 08/08/2023 1:30 PM EDT Office Visit Orthopaedics [facility] [address] [place] [address] Ricardo Licona, [address] [place] [address] 08/11/2023 8:00 AM EDT Office Visit Rheumatology [facility] [address] [place] [address] Meryl Santiago CRNP [address] [place] [address] 10/20/2023 7:00 AM EDT Office Visit Nephrology, [facility] 200 [facility] [place] [address] Yumiko Philippe MD 200 [facility] [place] [address] Pending Results Name Type Priority Associated Diagnoses [...] D LEVEL ONCE IN A LIFETIME-USE SMARTSET# 31575 Completed 12/01/2022, 09/09/2021, 04/08/2021, Additional history exists [...] encounter Medical Devices Implanted Type Area Senior Policy Analyst Device Identifier Shelf Expiration Date Model / Serial / Lot Lens Intraoc 23.0 - [id number] - [id number] Implanted:Qty: 1 on 12/21/2016 by Raj Bernard MD at OR [facility] Left: Eye BAUSCH & LOMB 06/20/2021 [id number] / [id number] / Lens Intraoc 22.0 - [id number] - [id number] Implanted:Qty: 1 on 01/06/2017 by Raj Bernard MD at OR [facility] Right: Eye BAUSCH & LOMB 08/20/2021 [id number] / [id number] / [id number] documented as of this encounter Visit Diagnoses [...] patient have Health Care Power of Associate Marketing Manager? No Care Teams Registered Vascular Technologist (Rvt) Relationship Specialty Start Date End Date Jennifer Sarkar MD [address] [place] [address] PCP - General Internal Medicine 10/06/20 documented as of this encounter
--- OUTSIDE RECORDS SUMMARY | 2023-07-03 07:44 | External Medical Summary | Summary of Care ---
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 [address] Referral ID Status Reason Start Date Expiration Date Visits Requested Visits Authorized [id number] Pending Review Specialty Services Required 04/15/2023 999 [...] of both shoulders Jennifer Sarkar MD 200 [place] [address] Referral ID Status Reason Start Date Expiration Date Visits Requested Visits Authorized [id number] Pending Review Specialty Services Required 03/23/2023 999 999 Encounter Details Date Type Department Care Team (Late st Contact Info) Description 04/15/2023 2:00 PM EST Office Visit Orthopaedics [facility] [address] [place] [address] Chase Paz MD [address] [place] [phone] Chronic pain of both shoulders [M25.511, G89.29, [...] Active Additional Information Patient taking differently:1,000 mg VraiM2Q PRN, ,may take 3rd dose in between [...] right-sided heart failure (HCC),Coronary artery disease involving [place] coronary artery of [place] heart without angina pectoris,Bilateral leg edema TAKE [...] failure 04/08/2020 Coronary artery disease invo lving [place] coronary artery of [place] heart without angina pectoris 11/21/2018 Abnormality of [...] and draped in usual sterile manner. 14 [place] flexible cystoscope inserted into urethra and guided [...] mRNA, LNP-s, No Pre serve, 2-Dose Series (ThinkC[employer]) 05/14/2020,04/18/2020 H1N1 2009 Influenza, IM 04/22/2009 PPD [...] no. Nursing Notes: Zuhair Mon LPN 04/15/23 6691 Addendum Referred by Jennifer Sarkar MD for [...] performed by ANSHU FOFANA at [facility] [place]ONOSCOPY W/ LESION REMOVAL, SNARE 02/01/2007 repeat in 5-10 yrs COLONOSCOPY, DIAGNOSTIC (RECTUM) 06/03/2017 adenomatous polyp, repeat 5 yrs/[facility] CYSTOSCOPY 03/30/2005 stent removal EGD, FLEXIBLE, DIAGNOSTIC 11/24/2012 UPPER GI ENDOSCOPY DIAGNOSTIC performed by Nakia Benton DO at [facility] EGD, FLEXIBLE, DIAGNOSTIC 07/15/2015 Schatzki ring, sm HH/[facility] EGD, FLEXIBLE, DIAGNOSTIC 03/21/2018 erosive gastropathy, tortous esophagus, [facility] EGD, FLEXIBLE, DIAGNOSTIC 08/21/2021 hiatal hernia / [facility] FRAGMENT KIDNEY STONE BY SHOCK WAVE 03/26/2005 ESWL (Extracorporeal Shock Wave Lithotripsy) INFORMATION bilateral hernia repair REMOVAL OF TONSILS, UNDER AGE 13 REMOVE CATARACT, INSERT LENS PROSTH Left 12/21/2016 left EXTRACAPSULAR CATARACT REMOVAL WITH INTRAOCULAR LENS performed by Raj Bernard MD at [facility] REMOVE CATARACT, INSERT LENS PROSTH Right 01/06/2017 right EXTRACAPSULAR CATARACT REMOVAL WITH INTRAOCULAR LENS performed by Raj Bernard MD at OR [facility] Review of patient's allergies indicates: Allergen Reactions [...] split or chew the tablet--dec 12/21/2021(nml EGD 08/21/21)--[facility] timing 05/18/2022 (Patient taking differently: Take 1 [...] Number of children: 2 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: [employer] 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 Grammatical errors, random [...] Description 06/14/2023 9:00 AM EDT Imaging Radiology, [address] [place] [address] 06/22/2023 5:00 PM EDT Office Visit General Internal Medicine [facility] [address] [place] [address] Jennifer Sarkar MD [address] [place] [address] 08/03/2023 9:30 AM EDT Office Visit Urology, [facility] 132 [place] [address] Man Gu MD 27 [facility] 270 [place] [address] 08/08/2023 1:30 PM EDT Office Visit Orthopaedics [facility] 132 [place] [address] Ricardo Licona DO 132 [place] [address] 08/11/2023 8:00 AM EDT Office Visit Rheumatology [address] [place] [address] Meryl Santiago CRNP [address] [place] [address] [place] [address] 10/20/2023 7:00 AM EDT Office Visit Nephrology, [facility] [address] [place] [address] Yumiko Philippe MD [address] [place] [address] Pending Results Name Type Priority Associated Diagnoses [...] D LEVEL ONCE IN A LIFETIME-USE SMARTSET# 37652 Completed 12/01/2022, 09/09/2021, 04/08/2021, Additional history exists [...] this encounter Medical Devices Implanted Type Area Carpet Installer Helper Device Identifier Shelf Expiration Date Model / Serial / Lot Lens Intraoc 23.0 - [id number] - [id number] Implanted:Qty: 1 on 12/21/2016 by Raj Bernard MD at OR [facility] Left: Eye BAUSCH & LOMB 06/20/2021 [id number] / [id number] / Lens Intraoc 22.0 - [id number] - [id number] Implanted:Qty: 1 on 01/06/2017 by Raj Bernard MD at OR [facility] Right: Eye BAUSCH & LOMB 08/20/2021 [id number] / [id number] / [id number] documented as of this encounter Visit Diagnoses [...] the patient have Health Care Power of Merchandising Team Lead? No Care Teams Gang Hemstitching Machine Operator Relationship Specialty Start Date End Date Jennifer Sarkar MD 200 [facility] [place] [address] PCP - General Internal Medicine 10/06/20 documented as of this encounter
--- OUTSIDE RECORDS SUMMARY | 2023-07-03 07:44 | External Medical Summary | Summary of Care ---
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 [address] Referral ID Status Reason Start Date Expiration Date Visits Requested Visits Authorized [id number] Pending Review Specialty Services Required 04/15/2023 999 [...] of both shoulders Jennifer Sarkar MD 200 [place] [address] Referral ID Status Reason Start Date Expiration Date Visits Requested Visits Authorized [id number] Pending Review Specialty Services Required 03/23/2023 999 999 Encounter Details Date Type Department Care Team (Late st Contact Info) Description 04/15/2023 2:00 PM EST Office Visit Orthopaedics [facility] [address] [place] [address] Chase Paz MD [address] [place] [phone] Chronic pain of both shoulders [M25.511, G89.29, [...] Active Additional Information Patient taking differently:1,000 mg ZwpaV0M PRN, ,may take 3rd dose in between [...] right-sided heart failure (HCC),Coronary artery disease involving [place] coronary artery of [place] heart without angina pectoris,Bilateral leg edema TAKE [...] failure 04/08/2020 Coronary artery disease invo lving [place] coronary artery of [place] heart without angina pectoris 11/21/2018 Abnormality of [...] and draped in usual sterile manner. 14 [place] flexible cystoscope inserted into urethra and guided [...] mRNA, LNP-s, No Pre serve, 2-Dose Series ([email or web address]) 05/14/2020,04/18/2020 H1N1 2009 Influenza, IM 04/22/2009 PPD [...] no. Nursing Notes: Zuhair Mon LPN 04/15/23 0598 Addendum Referred by Jennifer Sarkar MD for [...] performed by ANSHU FOFANA at [facility] COLONOSCOPY W/ LESION REMOVAL, SNARE 02/01/2007 repeat in 5-10 yrs COLONOSCOPY, DIAGNOSTIC (RECTUM) 06/03/2017 adenomatous polyp, repeat 5 yrs/[facility] CYSTOSCOPY 03/30/2005 stent removal EGD, FLEXIBLE, DIAGNOSTIC 11/24/2012 UPPER GI ENDOSCOPY DIAGNOSTIC performed by Nakia Benton DO at [facility] EGD, FLEXIBLE, DIAGNOSTIC 07/15/2015 Schatzki ring, sm HH/[facility] EGD, FLEXIBLE, DIAGNOSTIC 03/21/2018 erosive gastropathy, [facility]ous esophagus[facility] EGD, FLEXIBLE, DIAGNOSTIC 08/21/2021 hiatal hernia / [facility] FRAGMENT KIDNEY STONE BY SHOCK WAVE 03/26/2005 ESWL (Extracorporeal Shock Wave Lithotripsy) INFORMATION bilateral hernia repair REMOVAL OF TONSILS, UNDER AGE 12 REMOVE CATARACT, INSERT LENS PROSTH Left 12/21/2016 left EXTRACAPSULAR CATARACT REMOVAL WITH INTRAOCULAR LENS performed by Raj Bernard MD at [facility] REMOVE CATARACT, INSERT LENS PROSTH Right 01/06/2017 right EXTRACAPSULAR CATARACT REMOVAL WITH INTRAOCULAR LENS performed by Raj Bernard MD at OR [facility] Review of patient's allergies indicates: Allergen [...] split or chew the tablet--dec 12/21/2021(nml EGD 08/21/21)--[facility] timing 05/18/2022 (Patient taking differently: Take [...] Number of children: 2 Occupational History Occupation: [employer] Employer: [employer] 0[employer] Comment: 30 yrs Tobacco Use Smoking [...] failure (HCC) 04/08/2020 Coronary artery disease involving [place] coronary artery of [place] heart without angina pectoris 11/21/2018 Dyslipidemia, goal [...] Sulcus sign: negative Lift-off test: negative Apprehension:negative [place]'s test: negative Load and shift: negative Speed's [...] testing: negative Bilateral Chase Paz MD Orthopaedics [facility] 132 [facility] [place] [address] Orthopedic Sports Medicine Surgery 04/15/2023 2:39 PM This chart was completed in part utilizing [employer] Speech Voice Recognition Software. Grammatical errors, random [...] Description 06/14/2023 9:00 AM EDT Imaging Radiology, [address] [place] [address] 06/22/2023 5:00 PM EDT Office Visit General Internal Medicine [facility] 200 [facility] [place] [address] Jennifer Sarkar MD 200 [facility] [place] [address] 08/03/2023 9:30 AM EDT Office Visit Urology, [facility] [address] [place] [address] Man Gu MD 27 [address] 270 [place] [address] 08/08/2023 1:30 PM EDT Office Visit Orthopaedics [facility] [address] [facility] [place] [address] Ricardo Licona, 132 [place] [address] 08/11/2023 8:00 AM EDT Office Visit Rheumatology [address] [place] [address] Meryl Santiago CRNP [address] [place] [address] [place] [address] 10/20/2023 7:00 AM EDT Office Visit Nephrology, [facility] 200 [facility] [place] [address] Yumiko Philippe MD 200 [facility] [place], [place] [address] Pending Results Name Type Priority Associated Diagnoses [...] D LEVEL ONCE IN A LIFETIME-USE SMARTSET# 80213 Completed 12/01/2022, 09/09/2021, 04/08/2021, Additional history exists [...] this encounter Medical Devices Implanted Type Area Blueprint Processor Device Identifier Shelf Expiration Date Model / Serial / Lot Lens Intraoc 23.0 - [id number] - [id number] Implanted:Qty: 1 on 12/21/2016 by Raj Bernard MD at OR [facility] Left: Eye BAUSCH & LOMB 06/20/2021 [id number] / [id number] / Lens Intraoc 22.0 - [id number] - [id number] Implanted:Qty: 1 on 01/06/2017 by Raj Bernard MD at OR [facility] Right: Eye BAUSCH & LOMB 08/20/2021 [id number] / [id number] / [id number] documented as of this encounter Visit Diagnoses [...] the patient have Health Care Power of Seismic Prospecting Observer Helper? No Care Teams Assistant Professor Of Mathematics Relationship Specialty Start Date End Date Jennifer Sarkar MD 200 [facility] [place] [address] PCP - General Internal Medicine 10/06/20 documented as of this encounter
--- OUTSIDE RECORDS SUMMARY | 2023-07-03 07:44 | External Medical Summary | Summary of Care ---
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 [facility] Comments Bilateral LT > RT rotator cuff tears. Reason for Visit * Reason Comments Joint Pain Shoulder pain * Evaluate & Treat - Unlimited Visits (Within 10 days (routine)) - Pending Review Specialty Diagnoses / Procedures Referred By Derke knight Referred To Contact Orthopaedic Surgery / Orthopedics Diagnoses Chronic pain of both shoulders Jennifer Sarkar MD [address] [place] [address] Referral ID Status Reason Start Date Expiration Date Visits Requested Visits Authorized [id number] Pending Review Specialty Services Required 03/23/[phone] Encounter Details Date Type Department Care Team (Late st Contact Info) Description 04/15/2023 2:00 PM EST Office Visit Orthopaedics [facility] [address] [place] [address] Chase Paz MD [address] [place] [phone] Chronic pain of both shoulders [M25.511, G89.29, [...] Active Additional Information Patient taking differently:1,000 mg [id number] PRN, ,may take 3rd dose in between [...] right-sided heart failure (HCC),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 14 Slovenian flexible cystoscope inserted into urethra and guided [...] mRNA, LNP-s, No Pre serve, 2-Dose Series (LinkCloud) 05/14/2020,04/18/2020 H1N1 2009 Influenza, IM 04/22/2009 PPD [...] no. Nursing Notes: Zuhair Mon LPN 04/15/23 1960 Addendum Referred by Jennifer Sarkar MD for [...] performed by ANSHU FOFANA at [facility] COLONOSCOPY W/ LESION REMOVAL, SNARE 02/01/2007 repeat in 5-10 yrs COLONOSCOPY, DIAGNOSTIC (RECTUM) 06/03/2017 adenomatous polyp, repeat 5 yrs/[facility] CYSTOSCOPY 03/30/2005 stent removal EGD, FLEXIBLE, DIAGNOSTIC 11/24/2012 UPPER GI ENDOSCOPY DIAGNOSTIC performed by Nakia Benton DO at [facility] [place] EGD, FLEXIBLE, DIAGNOSTIC 07/15/2015 Schatzki ring, sm HH/[facility] EGD, FLEXIBLE, DIAGNOSTIC 03/21/2018 erosive gastropathy, tortous esophagus, [facility] EGD, FLEXIBLE, DIAGNOSTIC 08/21/2021 hiatal hernia / [facility] FRAGMENT KIDNEY STONE BY SHOCK WAVE 03/26/2005 ESWL (Extracorporeal Shock Wave Lithotripsy) INFORMATION bilateral hernia repair REMOVAL OF TONSILS, UNDER AGE 13 REMOVE CATARACT, INSERT LENS PROSTH Left 12/21/2016 left EXTRACAPSULAR CATARACT REMOVAL WITH INTRAOCULAR LENS performed by Raj Bernard MD at [facility] REMOVE CATARACT, INSERT LENS PROSTH Right 01/06/2017 right EXTRACAPSULAR CATARACT REMOVAL WITH INTRAOCULAR LENS performed by Raj Bernard MD at [facility] Review of patient's allergies indicates: Allergen [...] split or chew the tablet--dec 12/21/2021(nml EGD 08/21/21)--[facility] timing 05/18/2022 (Patient taking differently: Take [...] Number of children: 2 Occupational History Occupation: [employer] Employer: [employer] Comment: 30 yrs Tobacco Use Smoking [...] failure (HCC) 04/08/2020 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 Grammatical errors, random [...] Miscellaneous Notes * Addendum Note - Zuhair oMn LPN - 04/15/2023 2:59 PM ESTAddended by: ZUHAIR MON on: 04/15/2023 02:59 PM Modules accepted: Orders * Addendum Note - Zuhair Mon LPN - 04/15/2023 2:58 PM ESTAddended by: ZUHAIR MON on: 04/15/2023 02:58 PM Modules accepted: Orders documented in this encounter Plan of Treatment Upcoming Encounters Date Type Department Care Team (Late st Contact Info) Description 06/14/2023 9:00 AM EDT Imaging Radiology, [address] [place] [address] 06/22/2023 5:00 PM EDT Office Visit General Internal Medicine [facility] [address] [place] [address] Jennifer Sarkar MD [address] [place] [address] 08/03/2023 9:30 AM EDT Office Visit Urology, [facility] 132 [facility] [place] [address] Man Gu MD 27 [facility] [address] [place] [address] 08/08/2023 1:30 PM EDT Office Visit Orthopaedics [facility] 132 [facility] [place] [address] Ricardo Licona DO 132 [facility] [place] [address] 08/11/2023 8:00 AM EDT Office Visit Rheumatology [address] [place] [address] Meryl Santiago CRNP [address] [place] [address] [place] [address] 10/20/2023 7:00 AM EDT Office Visit Nephrology, [facility] [address] [place] [address] Yumiko Philippe MD [address] [place] [address] Pending Results Name Type Priority Associated Diagnoses [...] D LEVEL ONCE IN A LIFETIME-USE SMARTSET# 22149 Completed 12/01/2022, 09/09/2021, 04/08/2021, Additional history exists [...] this encounter Medical Devices Implanted Type Area Child Care Attendant Device Identifier Shelf Expiration Date Model / Serial / Lot Lens Intraoc 23.0 - [id number] - [id number] Implanted:Qty: 1 on 12/21/2016 by Raj Bernard MD at [facility] Left: Eye BAUSCH & LOMB 06/20/2021 [id number] / [id number] / Lens Intraoc 22.0 - [id number] - [id number] Implanted:Qty: 1 on 01/06/2017 by Raj Bernard MD at [facility] Right: Eye BAUSCH & LOMB 08/20/2021 [id number] / [id number] / [id number] documented as of this encounter Visit Diagnoses [...] the patient have Health Care Power of Seating Upholsterer? No Care Teams Insulation Mechanic Relationship Specialty Start Date End Date Jennifer Sarkar MD 200 [place] [address] PCP - General Internal Medicine 10/06/20 documented as of this encounter
--- OUTSIDE RECORDS SUMMARY | 2023-07-03 07:45 | External Medical Summary | Summary of Care ---
Author Name Unknown Organization [facility] Address [address] [facility] [place] [address] Phone [phone] Care Team Providers Care Wet End Helper Name Role Phone Jennifer Sarkar MD Primary Care Provider [phone] Reason for Visit * Reason Onset Date Comments Test Results 04/01/2023 Encounter Details Date Type Department Care Team (Late st Contact Info) Description 04/01/2023 Telephone General Internal Medicine [facility] 200 [place] [address] Jennifer Sarkar MD 200 [place] [address] Test Results Allergies Active Allergy Reactions Criticality Noted Date Comments Food (See Comments) 03/21/2018 Other reaction(s): WAS TOLD NOT TO TAKE grapefruit Tramadol Other (Please comment) High 10/06/2020 Hallucinations documented as of this encounter (statuses as of 04/01/2023) Medications Medication Sig Dispensed Refills Start Date [...] tanks needed 1 Each 0 2 Active Additional Information Patient taking differently: Use 3lpm continuous, increased to 4lpm with exertion. Changed 03/23/23, Reported on 03/23/2023 Acetaminophen 500 MG Oral Tablet (Tylenol)Indications: Spinal stenosis of lumbar region without neurogenic claudication Take by mouth 2 Tablets in the morning AND 2 Tablets before bedtime. ,may take 3rd dose in between --12/21/2021. 1 Tablet 0 2 Active Additional Information Patient taking differently:1,000 mg [id number] PRN, ,may take 3rd dose in between [...] right-sided heart failure (HCC),Coronary artery disease involving [place] coronary artery of [place] heart without angina pectoris,Bilateral leg edema TAKE [...] as of this encounter (statuses as of 04/01/2023) Active Problems Problem Noted Date Diagnosed Date Hypercalcemia 12/03/2022 Supplemental oxygen dependent 05/06/2022 Nasal septal perforation 05/06/2022 Chronic respiratory failure with hypoxia 022 Granulomatous lung disease 09/18/2021 Chronic rhinitis 06/10/2021 Schatzki's ring of distal esophagus 06/10/2021 Chronic right-sided heart failure 04/08/2020 Coronary artery disease invo lving [place] coronary artery of [place] heart without angina pectoris 11/21/2018 Abnormality of [...] as of this encounter (statuses as of 04/01/2023) Resolved Problems Problem Noted Date Diagnosed Date [...] and draped in usual sterile manner. 14 Telugu flexible cystoscope inserted into urethra and guided [...] as of this encounter (statuses as of 04/01/2023) Immunizations Name Administration Dates Next Due COVID-19 [...] encounter Miscellaneous Notes * Telephone Encounter - Emelyn Lozano LPN - 04/01/2023 10:27 AM EST Patient aware and verbalized understanding. Patient states he will pharmacy picking technician 24hr urine testing materials and instructions when he goes for labs on 04/07/2023 at . Patient states he is not taking any multi vitamins or calcium supplements. Emelyn Lozano LPN * Telephone Encounter - Emelyn Lozano LPN - 04/01/2023 10:24 AM EST ----- Message from Jennifer Sarkar MD sent at 04/01/2023 6:07 AM EST ----- Normal CMP except calcium high at 10.5 stable lipids TSH. -confirm he is not taking multivitamin or calcium supplement. -check ionized calcium, vitamin-D, PTH on 04/07 at [facility] -submit 24 hour urine for uro risk that was ordered in November documented in this encounter Plan of Treatment Upcoming Encounters Date Type Department Care Team (Late st Contact Info) Description 04/04/2023 3:00 PM EST Office Visit Pulmonary Medicine, [facility] 132 [facility] [place] [address] Wing Acevedo DO [address] [place] [address] 04/07/2023 1:00 PM EST Office Visit Orthopaedics [facility] 132 [facility] [place] [address] Chase Paz MD 132 [facility] [place] [phone] 05/06/2023 2:30 PM EDT Office Visit Cardiology, [facility] 132 [place] [address] Filemon Ramirez MD 132 [facility] [address] 06/14/2023 9:00 AM EDT Imaging Radiology, [address] [place] [address] 06/22/2023 5:00 PM EDT Office Visit General Internal Medicine [facility] 200 [facility] [place] [address] Jennifer Sarkar MD 200 [facility] [place] [address] 08/03/2023 9:30 AM EDT Office Visit Urology, [facility] 132 [place] [address] Man Gu MD 27 [facility] 270 [place] [address] 08/11/2023 8:00 AM EDT Office Visit Rheumatology [address] [place] [address] Meryl Santiago CRNP [address] [place] [address] [place] [address] 10/20/2023 7:00 AM EDT Office Visit Nephrology, [facility] 200 [facility] [place] [address] Yumiko Philippe MD 200 [facility] [place] [address] Scheduled Procedures Name Priority Associated Diagnoses Date/Ti [...] D LEVEL ONCE IN A LIFETIME-USE SMARTSET# 86552 Completed 12/01/2022, 09/09/2021, 04/08/2021, Additional history exists [...] this encounter Medical Devices Implanted Type Area Criminal Investigative Agent Device Identifier Shelf Expiration Date Model / Serial / Lot Lens Intraoc 23.0 - [id number] - [id number] Implanted:Qty: 1 on 12/21/2016 by Raj Bernard MD at [facility] Left: Eye BAUSCH & LOMB 06/20/2021 [id number] / [id number] / Lens Intraoc 22.0 - [id number] - [id number] Implanted:Qty: 1 on 01/06/2017 by Raj Bernard MD at [facility] Right: Eye BAUSCH & LOMB 08/20/2021 [id number] / [id number] / [id number] documented as of this encounter Advance Directives [...] the patient have Health Care Power of Chip Mucker? No Care Teams Wet End Helper Relationship Specialty Start Date End Date Jennifer Sarkar MD 200 [place] [address] PCP - General Internal Medicine 10/06/20 documented as of this encounter
--- OUTSIDE RECORDS SUMMARY | 2023-07-03 07:45 | External Medical Summary | Summary of Care ---
Author Name Unknown Organization [facility] Address [address] [facility] [place] [address] Phone [phone] Care Team Providers Care Supervisor Steel Division Name Role Phone Jennifer Sarkar MD Primary Care Provider [phone] Reason for Visit * Reason Onset Date Comments Home Health 03/24/2023 Encounter Details Date Type Department Care Team (Late st Contact Info) Description 03/24/2023 Telephone General [facility] 200 [facility] [place] [address] Jennifer Sarkar MD 200 [place] [address] Home Health Allergies Active Allergy Reactions Criticality Noted Date Comments Food (See Comments) 03/21/2018 Other reaction(s): WAS TOLD NOT TO TAKE grapefruit Tramadol Other (Please comment) High 10/06/2020 Hallucinations documented as of this encounter (statuses as of 03/25/2023) Medications Medication Sig Dispensed Refills Start Date [...] Active Additional Information Patient taking differently:1,000 mg [id number] PRN, ,may take 3rd dose in between [...] right-sided heart failure (HCC),Coronary artery disease involving [place] coronary artery of [place] heart without angina pectoris,Bilateral leg edema TAKE [...] as of this encounter (statuses as of 03/25/2023) Active Problems Problem Noted Date Diagnosed Date Hypercalcemia 12/03/2022 Supplemental oxygen dependent 05/06/2022 Nasal septal perforation 05/06/2022 Chronic respiratory failure with hypoxia 022 Granulomatous lung disease 09/18/2021 Chronic rhinitis 06/10/2021 Schatzki's ring of distal esophagus 06/10/2021 Chronic right-sided heart failure 04/08/2020 Coronary artery disease invo lving [place] coronary artery of [place] heart without angina pectoris 11/21/2018 Abnormality of [...] as of this encounter (statuses as of 03/25/2023) Resolved Problems Problem Noted Date Diagnosed Date [...] and draped in usual sterile manner. 14 Turkish flexible cystoscope inserted into urethra and guided [...] as of this encounter (statuses as of 03/25/2023) Immunizations Name Administration Dates Next Due COVID-19 [...] encounter Miscellaneous Notes * Telephone Encounter - Jennifer Sarkar MD - 03/25/2023 12:33 PM EST Noted, thanks nurse--pl f/u on below message * Telephone Encounter - Francie Dawkins RN - 03/25/2023 8:16 AM EST Based on his insurance coverage he does not qualify for CM through [facility]. * Telephone Encounter - Jennifer Sarkar MD - 03/24/2023 9:08 PM EST Aware. His daughter is looking at assisted living, pt said he is on wait list. He could consider switch pharmacy to [facility] who does prepackaged medications, [facility] nurse can help check with them if they deliver to his area if he is agreeable.. Routing to comp field case manager to see if he qualifies for CM. * Telephone Encounter - Veronica Bueno LPN - 03/24/2023 4:33 PM EST [facility] Eval Start of Care/Continuation Lorena, Calling from: [facility] RN Plan of care: 1 times per week for 2 weeks: Focusing on: education on filling pill space planner Concerns: yes See narrative Symptoms: none Vitals: Tonia was driving and unable to see VS, she indicated WNLs Narrative: HH has been working with pt many times to educate on filling pill space planner. Tonia will see pt 2 more times but insurance will not keep covering HH to only fill space planner as it is not a skilled need. He has always been able to do it, it just takes him a long time due to his shaking. He admits he doesn't like to fill his own space planner but he can. Tonia is going to educate neighbor on how to fill space planner and also attempt to contact family. She feels if discussion of moving to assisted livingmaybe needed in future. This is FYI Advised that additional visit orders will be signed by Dr Sarkar and to fax to the office for signature documented in this encounter Plan of Treatment Upcoming Encounters Date Type Department Care Team (Late st Contact Info) Description 03/30/2023 10:30 AM EST PulmDiagnostic Pulmonary Function Lab, [facility] [address] [place] [address] [place], [address] 132 [facility] [place] [address] 04/04/2023 3:20 PM EST Office Visit Pulmonary Medicine, [facility] [address] [place] [address] Wing Acevedo, DO [address] [place] [address] 04/07/2023 1:00 PM EST Office Visit Orthopaedics [facility] [place] [address] Chase Paz MD 132 [place] [phone] 05/06/2023 2:30 PM EDT Office Visit Cardiology, [facility] [address] [place] [address] Filemon Ramirez MD 132 [place] [address] 06/14/2023 9:00 AM EDT Imaging Radiology, [address] [place] [address] 06/22/2023 5:00 PM EDT Office Visit General Internal Medicine [facility] [address] [place] [address] Jennifer Sarkar MD [address] [place] [address] 08/03/2023 9:30 AM EDT Office Visit Urology, [facility] 132 [facility] [place] [address] Man Gu MD 27 [facility] 270 [facility] [address] 08/11/2023 8:00 AM EDT Office Visit Rheumatology [address] [place] [address] Meryl Santiago CRNP [address] [place] [address] [place] [address] 10/20/2023 7:00 AM EDT Office Visit Nephrology, [facility] [address] [place] [address] Yumiko Philippe MD 200 [facility] [place] [address] Scheduled Procedures Name Priority Associated Diagnoses Date/Ti [...] D LEVEL ONCE IN A LIFETIME-USE SMARTSET# 45633 Completed 12/01/2022, 09/09/2021, 04/08/2021, Additional history exists [...] this encounter Medical Devices Implanted Type Area Systems Support Officer Device Identifier Shelf Expiration Date Model / Serial / Lot Lens Intraoc 23.0 - [id number] - [id number] Implanted:Qty: 1 on 12/21/2016 by Raj Bernard MD at OR [facility] Left: Eye BAUSCH & LOMB 06/20/2021 [id number] / [id number] / Lens Intraoc 22.0 - [id number] - [id number] Implanted:Qty: 1 on 01/06/2017 by Raj Bernard MD at OR [facility] Right: Eye BAUSCH & LOMB 08/20/2021 [id number] / [id number] / [id number] documented as of this encounter Advance Directives [...] the patient have Health Care Power of Director Of Regional Sales? No Care Teams Supervisor Steel Division Relationship Specialty Start Date End Date Jennifer Sarkar MD 200 [place] [address] PCP - General Internal Medicine 10/06/20 documented as of this encounter
--- OUTSIDE RECORDS SUMMARY | 2023-07-03 07:45 | External Medical Summary | Summary of Care ---
Author Name Unknown Organization [facility] Address [address] [facility] [place] [address] Phone [phone] Care Team Providers Care Lead Custodian Name Role Phone Jennifer Sarkar MD Primary Care Provider Reason for Visit * Reason Onset Date Comments Home Health 03/24/2023 Encounter Details Date Type Department Care Team (Late st Contact Info) Description 03/24/[address] Medicine [facility] 200 [facility] [place] [address] Jennifer Sarkar MD 200 [place] [address] Home Health Allergies Active Allergy Reactions Criticality Noted Date Comments Food (See Comments) 03/21/2018 Other reaction(s): WAS TOLD NOT TO TAKE grapefruit Tramadol Other (Please comment) High 10/06/2020 Hallucinations documented as of this encounter (statuses as of 04/07/2023) Medications Medication Sig Dispensed Refills Start Date [...] Active Additional Information Patient taking differently:1,000 mg AczpW6G PRN, ,may take 3rd dose in between [...] right-sided heart failure (HCC),Coronary artery disease involving angoon coronary artery of angoon heart without angina pectoris,Bilateral leg edema TAKE [...] as of this encounter (statuses as of 04/07/2023) Active Problems Problem Noted Date Diagnosed Date Hypercalcemia 12/03/2022 Supplemental oxygen dependent 05/06/2022 Nasal septal perforation 05/06/2022 Chronic respiratory failure with hypoxia 022 Granulomatous lung disease 09/18/2021 Chronic rhinitis 06/10/2021 Schatzki's ring of distal esophagus 06/10/2021 Chronic right-sided heart failure 04/08/2020 Coronary artery disease invo lving angoon coronary artery of angoon heart without angina pectoris 11/21/2018 Abnormality of [...] as of this encounter (statuses as of 04/07/2023) Resolved Problems Problem Noted Date Diagnosed Date [...] and draped in usual sterile manner. 14 Monegasque flexible cystoscope inserted into urethra and guided [...] as of this encounter (statuses as of 04/07/2023) Immunizations Name Administration Dates Next Due COVID-19 [...] encounter Miscellaneous Notes * Telephone Encounter - Rebeka Shipley LPN - 04/07/2023 6:45 PM EST See TE from 04/06/23 * Telephone Encounter - Jennifer Sarkar MD - 03/25/2023 12:33 PM EST Noted, thanks nurse--pl f/u on below message * Telephone Encounter - Francie Dawkins, KORIN - 03/25/2023 8:16 AM EST Based on his insurance coverage he does not qualify for CM through [place]. * Telephone Encounter - Jennifer Sarkar MD - 03/24/2023 9:08 PM EST Aware. His daughter is looking at assisted living, pt said he is on wait list. He could consider switch pharmacy to [facility] who does prepackaged medications, [facility] nurse can help check with them if they deliver to his area if he is agreeable.. Routing to casework supervisor to see if he qualifies for CM. * Telephone Encounter - Veronica Bueno LPN - 03/24/2023 4:33 PM EST HH detention Eval Start of Care/Continuation Lorena, Calling from: [facility] RN Plan of care: 1 times per week for 2 weeks: Focusing on: education on filling pill maintenance planner Concerns: yes See narrative Symptoms: none Vitals: Tonia was driving and unable to see VS, she indicated WNLs Narrative: HH has been working with pt many times to educate on filling pill maintenance planner. Tonia will see pt 2 more times but insurance will not keep covering HH to only fill maintenance planner as it is not a skilled need. He has always been able to do it, it just takes him a long time due to his shaking. He admits he doesn't like to fill his own maintenance planner but he can. Tonia is going to educate neighbor on how to fill maintenance planner and also attempt to contact family. [...] 04/14/2023 2:00 PM EST Office Visit Orthopaedics [facility] [address] [place] [address] Chase Paz MD [address] [place] [phone] 05/06/2023 2:30 PM EDT Office Visit Cardiology, [facility] [address] [place] [address] Filemon Ramirez MD [address] [place] [address] 06/14/2023 9:00 AM EDT Imaging Radiology, [address] [place] [address] 06/22/2023 5:00 PM EDT Office Visit General Internal Medicine [facility] [address] [place] [address] Jennifer Sarkar MD 200 [facility] [place] [address] 08/03/2023 9:30 AM EDT Office Visit Urology, [facility] [address] [place] [address] Man Gu MD [address] [place] [address] [place] [address] 08/11/2023 8:00 AM EDT Office Visit Rheumatology [facility] [address] [place] [address] Meryl Santiago CRNP [address] [place], [place] [address] 10/20/2023 7:00 AM EDT Office Visit Nephrology, [facility] 200 [facility] [place], [place] [address] Yumiko Philippe MD 200 [facility] [place], [place] [address] Scheduled Procedures Name Priority Associated Diagnoses Date/Ti [...] D LEVEL ONCE IN A LIFETIME-USE SMARTSET# 99557 Completed 12/01/2022, 09/09/2021, 04/08/2021, Additional history exists [...] this encounter Medical Devices Implanted Type Area Tearoom Host Device Identifier Shelf Expiration Date Model / Serial / Lot Lens Intraoc 23.0 - [id number] - [id number] Implanted:Qty: 1 on 12/21/2016 by Raj Bernard MD at OR [facility] Left: Eye [employer]CH [employer] LOMB 06/20/2021 [id number] / [id number] / Lens Intraoc 22.0 - [id number] - [id number] Implanted:Qty: 1 on 01/06/2017 by Raj Bernard MD at OR [facility] Right: Eye BAUSCH [employer] LOMB 08/20/2021 [id number] / [id number] / [id number] documented as of this encounter Advance Directives [...] the patient have Health Care Power of Fiber Drier Operator? No Care Teams Lead Custodian Relationship Specialty Start Date End Date Jennifer Sarkar MD 200 [facility] [place] [address] PCP - General Internal Medicine 10/06/20 documented as of this encounter
--- OUTSIDE RECORDS SUMMARY | 2023-07-03 07:45 | External Medical Summary | Summary of Care ---
Author Name Unknown Organization [facility] Address [address] [facility] [place] [address] Phone [phone] Care Team Providers Care Code Enforcement Supervisor Name Role Phone Jennifer Sarkar MD Primary Care Provider [phone] Reason for Visit * Reason Onset Date Comments Home Health 03/24/2023 Encounter Details Date Type Department Care Team (Late st Contact Info) Description 03/24/2023 Telephone General Internal Medicine [facility] 200 [facility] [place] [place] [address] Jennifer Sarkar MD 200 [place] [address] Home Health Allergies Active Allergy Reactions Criticality [...] Active Additional Information Patient taking differently:1,000 mg TijdF0M PRN, ,may take 3rd dose in between [...] right-sided heart failure (HCC),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 14 Trinidadian flexible cystoscope inserted into urethra and guided [...] encounter Miscellaneous Notes * Telephone Encounter - Francie Dawkins RN - 03/25/2023 8:16 AM EST Based on his insurance coverage he does not qualify for CM through [place]. * Telephone Encounter - Jennifer Sarkar MD - 03/24/2023 9:08 PM EST Aware. His daughter is looking at assisted living, pt said he is on wait list. He could consider switch pharmacy to [facility] who does prepackaged medications, [facility] nurse can help check with them if they deliver to his area if he is agreeable.. Routing to assistant case manager to see if he qualifies for CM. * Telephone Encounter - Veronica Bueno LPN - 03/24/2023 4:33 PM EST retirement Eval Start of Care/Continuation Lorena, Calling from: [facility] RN Plan of care: 1 times per week for 2 weeks: Focusing on: education on filling pill corporate planner Concerns: yes See narrative Symptoms: none Vitals: Tonia was driving and unable to see VS, she indicated WNLs Narrative: HH has been working with pt many times to educate on filling pill corporate planner. Tonia will see pt 2 more times but insurance will not keep covering HH to only fill corporate planner as it is not a skilled need. He has always been able to do it, it just takes him a long time due to his shaking. He admits he doesn't like to fill his own corporate planner but he can. Tonia is going to educate neighbor on how to fill corporate planner and also attempt to contact family. [...] 10:30 AM EST PulmDiagnostic Pulmonary Function Lab, [facility] 132 [facility] [place] [address] [address], [address] 132 [facility] [place] [address] 04/04/2023 3:20 PM EST Office Visit Pulmonary Medicine, [facility] 132 [facility] [place] [address] Wing Acevedo, DO [address] [place] [address] 04/07/2023 1:00 PM EST Office Visit Orthopaedics [facility] [address] [place] [address] Chase Paz MD [address] [place] [phone] 05/06/2023 2:30 PM EDT Office Visit Cardiology, [facility] [address] [place] [address] Filemon Ramirez MD [address] [place] [address] 06/14/2023 9:00 AM EDT Imaging Radiology, [facility] [address] [facility] [place] [address] 06/22/2023 5:00 PM EDT Office Visit General Internal Medicine [facility] 200 [facility] [place] [address] Jennifer Sarkar MD 200 [facility] [place] [place] [address] 08/03/2023 9:30 AM EDT Office Visit Urology, [facility] [address] [place] [address] Man Gu MD [address] [place] [address] 08/11/2023 8:00 AM EDT Office Visit Rheumatology [facility] [address] [employer] [place] [address] Meryl Santiago CRNP [address] [place], [place] [address] 10/20/2023 7:00 AM EDT Office Visit Nephrology, [facility] 200 [facility] [place] [address] Yumiko Philippe MD 200 [facility] [place] [address] Scheduled Procedures Name Priority Associated Diagnoses Date/Ti [...] Additional history exists Albumin/Creatinine Ratio 09/09/2024 09/09/2021, 08/2 DTaP,Tdap,and Td Vaccines (2 - Td or Tdap) 07/19/2028 07/19/2018, 12/14/2007 Pneumococcal Vaccine: 65+ Years Completed 11/12/2014, 07/20/2007, 02/25/2002 Zoster Vaccines Completed 01/28/2020, 09/17/2019 Influenza Vaccine (FLU shot) Completed 03/2022, 04/06/2022, 04/06/2022, Additional history exists VITAMIN D LEVEL ONCE IN A LIFETIME-USE SMARTSET# [id number] Completed 12/01/2022, 09/09/2021, 04/08/2021, Additional history exists [...] this encounter Medical Devices Implanted Type Area Insurance Healthcare Consultant Device Identifier Shelf Expiration Date Model / Serial / Lot Lens Intraoc 23.0 - [id number] - [id number] Implanted:Qty: 1 on 12/21/2016 by Raj Bernard MD at OR [facility] Left: Eye BA[employer]CH [employer]OM[employer] 06/20/2021 [id number] / [id number] / Lens Intraoc 22.0 - [id number] - [id number] Implanted:Qty: 1 on 01/06/2017 by Raj Bernard MD at OR [facility] Right: Eye BAUSCH [employer] LOMB 08/20/2021 [id number] / [id number] / [id number] documented as of this encounter Advance Directives [...] the patient have Health Care Power of Heel Packer? No Care Teams Code Enforcement Supervisor Relationship Specialty Start Date End Date Jennifer Sarkar MD 200 [place] [address] PCP - General Internal Medicine 10/06/20 documented as of this encounter
--- OUTSIDE RECORDS SUMMARY | 2023-07-03 07:45 | External Medical Summary | Summary of Care ---
Author Name Unknown Organization [facility] Address [address] [facility] [place] [address] Phone [phone] Care Team Providers Care Director Sales Training Name Role Phone Jennifer Sarkar MD Primary Care Provider [phone] Reason for Visit * Reason Onset Date Comments Advice 03/21/2023 Encounter Details Date Type Department Care Team (Late st Contact Info) Description 03/21/2023 Telephone General Internal Medicine [facility] 200 [place] [address] Jennifer Sarkar MD 200 [place] [address] Advice Allergies Active Allergy Reactions Criticality Noted Date Comments Food (See Comments) 03/21/2018 Other reaction(s): WAS TOLD NOT TO TAKE grapefruit Tramadol Other (Please comment) High 10/06/2020 Hallucinations documented as of this encounter (statuses as of 03/23/2023) Medications Medication Sig Dispensed Refills Start Date [...] Active Additional Information Patient taking differently:1,000 mg GoylB2B PRN, ,may take 3rd dose in between [...] right-sided heart failure (HCC),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,Bilateral leg edema TAKE [...] as of this encounter (statuses as of 03/23/2023) Active Problems Problem Noted Date Diagnosed Date Hypercalcemia 12/03/2022 Supplemental oxygen dependent 05/06/2022 Nasal septal perforation 05/06/2022 Chronic respiratory failure with hypoxia 022 Granulomatous lung disease 09/18/2021 Chronic rhinitis 06/10/2021 Schatzki's ring of distal esophagus 06/10/2021 Chronic right-sided heart failure 04/08/2020 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 14 Tajik flexible cystoscope inserted into urethra and guided [...] as of this encounter (statuses as of 03/23/2023) Immunizations Name Administration Dates Next Due COVID-19 mRNA, LNP-s, No Pre serve, 2-Dose Series (BOND) 05/14/2020,04/18/2020 H1N1 2009 Influenza, IM 04/22/2009 PPD [...] Telephone Encounter - Jennifer Sarkar MD - 03/23/2023 7:35 PM EST ok * Telephone Encounter - Karissa Ryan LPN - 03/23/2023 4:41 PM EST Ricardo, PT calling from [facility] HH He stated that patient was finally able to make to in to see PCP for Hospital follow up appointment. Ricardo is sending over orders for signature for PT continuation and also Usp help managehis medications. FYI * Telephone Encounter - Angie Limon OSA - 03/23/2023 4:36 PM EST Reason for patient's call: Ricardo/ PT for [facility] Home Health Caller was transferred to [facility] at the nurse line. * Telephone Encounter - Veronica Bueno LPN - 03/21/2023 1:00 PM EST Concerns Ricardo PT, Calling from: [facility] Report/Concerns of: miss appts due to transportation Narrative: pt has difficult with transportation and making appt with PCP. He miss appt with f/u Scheduled appt. * Telephone Encounter - Jayde Sam OSA - 03/21/2023 12:59 PM EST Reason for patient's call: Ricardo from [facility] Home Health Caller was transferred to Veronica at the nurse line. * Telephone Encounter - Johanna Ornelas OSA - 03/21/2023 12:47 PM EST Spoke to Brain voiced he at the pt home currently and need appointment for tomorrow for pt er follow up and so they can have orders signed, would like tele call due to transportation issues and age,asked to be transferred to actual location, thanks Earliest appointment I have is 03/24/23 requesting tomorrow. Somehow we were disconnected, please call documented in this encounter Plan of Treatment Upcoming Encounters Date Type Department Care Team (Late st Contact Info) Description 03/30/2023 10:30 AM EST PulmDiagnostic Pulmonary Function Lab, [facility] 132 [facility] [place] [address] [address], [address] 132 [facility] [place] [address] 04/04/2023 3:20 PM EST Office Visit Pulmonary Medicine, [facility] 132 [facility] [place] [address] Wing Acevedo, DO [address] [place] [address] 04/07/2023 1:00 PM EST Office Visit [facility]opaedics [facility] [place] [address] Chase Paz MD [address] [place] [phone] 05/06/2023 2:30 PM EDT Office Visit Cardiology, [facility] 132 [facility] [place] [address] Filemon Ramirez MD [address] [place] [address] 06/14/2023 9:00 AM EDT Imaging Radiology, [address] [place] [address] 06/22/2023 5:00 PM EDT Office Visit General Internal Medicine [facility] 200 [facility] [place] [address] Jennifer Sarkar MD 200 [facility] [place] [address] 08/03/2023 9:30 AM EDT Office Visit Urology, [facility] 132 [facility] [place] [address] Man Gu MD [address] [place] [address] [place] [address] 08/11/2023 8:00 AM EDT Office Visit Rheumatology [address] [place] [address] Meryl Santiago CRNP [address] [place] [address] [place] [address] 10/20/2023 7:00 AM EDT Office Visit Nephrology, [facility] 200 [facility] [place] [address] Yumiko Philippe MD 200 [facility] [place] [address] Scheduled Procedures Name Priority Associated Diagnoses Date/Ti me COLONOSCOPY FLEXIBLE PROXIMAL DIAGNOSTIC Recall History of colon polyps Health Maintenance Due Date Last Done Comments DXA Scan 08/05/2021 08/06/2019, 04/2017, 05/13/2015, Additional history exists COLONOSCOPY-EVERY 5 YRS AGES 18-100 06/03/2022 06/03/2017, 02/01/2007 Depression Screening 09/09/2022 09/09/2021 COVID-19 Vaccine ( season) 2022 05/14/2020, 04/18/2020 TSH 12/02/2023 12/01/2022, 07/23, 05/18/2022, Additional history exists GFR 03/23/2024 03/23/2023, 11/21, 04/06/2022, Additional history exists Albumin/Creatinine Ratio 09/09/2024 09/09/2021, 09/22 DTaP,Tdap,and Td Vaccines (2 - Td or Tdap) 07/19/2028 07/19/2018, 12/14/2007 Pneumococcal Vaccine: 65+ Years Completed 11/12/2014, 07/20/2007, 02/25/2002 Zoster Vaccines Completed 01/28/2020, 09/17/2019 Influenza Vaccine (FLU shot) Completed 03/2022, 04/06/2022, 04/06/2022, Additional history exists VITAMIN D LEVEL ONCE IN A LIFETIME-USE SMARTSET# [id number] Completed 12/01/2022, 09/09/2021, 04/08/2021, Additional history exists [...] this encounter Medical Devices Implanted Type Area Cartography/Mapping Technician Device Identifier Shelf Expiration Date Model / Serial / Lot Lens Intraoc 23.0 - [id number] - [id number] Implanted:Qty: 1 on 12/21/2016 by Raj Bernard MD at OR [facility] Left: Eye [employer]USCH [employer] LOMB 06/20/2021 [id number] / [id number] / Lens Intraoc 22.0 - [id number] - [id number] Implanted:Qty: 1 on 01/06/2017 by Raj Bernard MD at OR [facility] Right: Eye BAUSCH & LOMB 08/20/2021 [id number] / [id number] / [id number] documented as of this encounter Advance Directives [...] the patient have Health Care Power of Hospitalist? No Care Teams Director Sales Training Relationship Specialty Start Date End Date Jennifer Sarkar MD 200 [place] [address] PCP - General Internal Medicine 10/06/20 documented as of this encounter
--- OUTSIDE RECORDS SUMMARY | 2023-07-03 07:45 | External Medical Summary | Summary of Care ---
Author Name Unknown Organization [facility] Address [address] [facility] [place] [address] Phone [phone] Care Team Providers Care Ginning Operator Name Role Phone Jennifer Sarkar MD Primary Care Provider [phone] Encounter Details Date Type Department Care Team (Late st Contact Info) Description 04/02/2023 Orders Only PATIENT PORTAL DO NOT DELETE THIS DEPT USED BY N[place] LAI [id number] Allergies Active Allergy Reactions Criticality Noted Date Comments Food (See Comments) 03/21/2018 Other reaction(s): WAS TOLD NOT TO TAKE grapefruit Tramadol Other (Please comment) High 10/06/2020 Hallucinations documented as of this encounter (statuses as of 04/02/2023) Medications Medication Sig Dispensed Refills Start Date [...] Active Additional Information Patient taking differently:1,000 mg [id number] PRN, ,may take 3rd dose in between [...] right-sided heart failure (HCC),Coronary artery disease involving stockbridge coronary artery of stockbridge heart without angina pectoris,Bilateral leg edema TAKE [...] hours as needed for Pain, Severe. 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 14 Polish flexible cystoscope inserted into urethra and guided [...] as of this encounter (statuses as of 04/02/2023) Immunizations Name Administration Dates Next Due COVID-19 mRNA, LNP-s, No Pre serve, 2-Dose Series (Routeware) 05/14/2020,04/18/2020 H1N1 2009 Influenza, IM 04/22/2009 PPD [...] 3:00 PM EST Office Visit Pulmonary Medicine, [facility] [address] [facility] [place] [address] Wing Acevedo, DO [address] [place] [address] 04/07/2023 1:00 PM EST Office Visit Orthopaedics [facility] [address] [facility] [place] [address] Chase Paz MD [address] [facility] [place] [phone] 05/06/2023 2:30 PM EDT Office Visit Cardiology, [facility] [address] [facility] [place] [address] Filemon Ramirez MD 132 [facility] [address] 06/14/2023 9:00 AM EDT Imaging Radiology, [address] [place] [address] 06/22/2023 5:00 PM EDT Office Visit General Internal Medicine [facility] [address] [place] [address] Jennifer Sarkar MD [address] [place] [address] 08/03/2023 9:30 AM EDT Office Visit Urology, [facility] [address] [facility] [place] [address] Man Gu MD 27 [facility] 270 [place] [address] 08/11/2023 8:00 AM EDT Office Visit Rheumatology [facility] [address] [place] [address] Meryl Santiago CRNP [address] [place], [place] [address] 10/20/2023 7:00 AM EDT Office Visit Nephrology, [place] 200 [facility] [place], [place] [address] Yumiko Philippe MD 200 [facility] [place], [place] [address] Scheduled Procedures Name Priority Associated Diagnoses Date/Ti [...] D LEVEL ONCE IN A LIFETIME-USE SMARTSET# 86439 Completed 12/01/2022, 09/09/2021, 04/08/2021, Additional history exists [...] this encounter Medical Devices Implanted Type Area Cardiovascular Or Nurse Device Identifier Shelf Expiration Date Model / Serial / Lot Lens Intraoc 23.0 - [id number] - [id number] Implanted:Qty: 1 on 12/21/2016 by Raj Bernard MD at OR [facility] Left: Eye BAUSCH & LOMB 06/20/2021 [id number] / [id number] / Lens Intraoc 22.0 - [id number] - [id number] Implanted:Qty: 1 on 01/06/2017 by Raj Bernard MD at OR [facility] Right: Eye BAUSCH & LOMB 08/20/2021 [id number] / [id number] / [id number] documented as of this encounter Advance Directives [...] the patient have Health Care Power of Manager Architecture? No Care Teams Ginning Operator Relationship Specialty Start Date End Date Jennifer Sarkar MD 200 [facility] [place] [address] PCP - General Internal Medicine 10/06/20 documented as of this encounter
--- OUTSIDE RECORDS SUMMARY | 2023-07-03 07:46 | External Medical Summary ---
Author Name Unknown Address Unknown Organization [id number]:[facility] [address] [place] [address] Laboratory Report Ordering Provider Test Date Status JESSA METZGER 03/23/2023 13:05:58 Final Observation Date Value Abnormality Reference (Units ) Status Triglyceride 03/23/2023 13:05:58 220 Above high normal <=174 (mg/dL) Final Triglyceride Reference Range s (mg/dL):
<150 Acceptable
150-174 Borderline high
175-499 High
>=500 Very high Cholesterol 03/23/2023 13:05:58 151 <200 (mg /dL) Final Total Cholesterol Reference Ranges (mg/dL):
<200 Desirable
200-239 Borderline high
>=240 High HDL 03/23/2023 13:05:58 50 >39 (mg/dL ) Final HDL Cholesterol Reference Ra nges (mg/dL):
>=60 High (Desirable)
<50 Low (Undesirable) For Females
<40 Low (Undesirable) For Males NON-HDL CHOLESTEROL 03/23/2023 13:05:58 101 <=159 (mg/dL) Final Non-HDL Cholesterol Referenc e Range (mg/dL):
<100 Target level for high risk ASCVD patient
<130 Optimal for general population
130-159 Near optimal for general population
160-189 Borderline High
190-219 High
>=220 Very High Performing Location [facility] - [address] [place] [address]
--- OUTSIDE RECORDS SUMMARY | 2023-07-03 07:46 | External Medical Summary | Summary of Care ---
Author Name Unknown Organization [facility] Address [address] [facility] [place] [address] Phone [phone] Care Team Providers Care Associate Professor Of Counseling Name Role Phone Jennifer Sarkar MD Primary Care Provider [phone] Reason for Visit * Reason Onset Date Comments Advice 12/20/2022 Encounter Details Date Type Department Care Team (Late st Contact Info) Description 12/20/2022 Telephone General Internal Medicine [facility] 200 [place] [address] Jennifer Sarkar MD 200 [place] [address] Advice Allergies Active Allergy Reactions Criticality Noted Date Comments Food (See Comments) 03/21/2018 Other reaction(s): WAS TOLD NOT TO TAKE grapefruit Tramadol Other (Please comment) High 10/06/2020 Hallucinations documented as of this encounter (statuses as of 03/21/2023) Medications Medication Sig Dispensed Refills Start Date [...] Active Additional Information Patient taking differently:1,000 mg NryyP7P PRN, ,may take 3rd dose in between [...] right-sided heart failure (HCC),Coronary artery disease involving [place] coronary artery of [place] heart without angina pectoris,Bilateral leg edema [...] as of this encounter (statuses as of 03/21/2023) Active Problems Problem Noted Date Diagnosed Date Hypercalcemia 12/03/2022 Supplemental oxygen dependent 05/06/2022 Nasal septal perforation 05/06/2022 Chronic respiratory failure with hypoxia 022 Granulomatous lung disease 09/18/2021 Chronic rhinitis 06/10/2021 Schatzki's ring of distal esophagus 06/10/2021 Chronic right-sided heart failure 04/08/2020 Coronary artery disease invo lving [place] coronary artery of [place] heart without angina pectoris 11/21/2018 Abnormality [...] as of this encounter (statuses as of 03/21/2023) Resolved Problems Problem Noted Date Diagnosed Date Resolved Date Right-sided heart failure 01/30/2020 Gastroesophageal reflux dise ase without esophagitis 03/12/2019 10/03/2019 Hepatomegaly 04/22/2011 11/21/2017 EXT ASTHMA W/O STATUS ASTHMATIC OR AC EXACER 0 04/22/2009 Dysuria 10/14/2008 05/20/2011 Other chest pain 10/09/2008 10/16/2008 INTERFACED RESULT 10/09/2008 05/20/2011 Acute coronary syndrome 10/09/2008 0310/2011 Labyrinthitis, unspecified 08/30/2005 0 07/21/2016 Edema 08/30/2005 [...] as of this encounter (statuses as of 03/21/2023) Immunizations Name Administration Dates Next Due COVID-19 mRNA, LNP-s, No Pre serve, 2-Dose Series (LiveRe) 05/14/2020,04/18/2020 H1N1 2009 Influenza, IM 04/22/2009 PPD 08/20/2020,08/11/2020 Pneumococcal Conjugate Vacc, 13 Valent (Prevnar) 11/12/2014 Pneumococcal Polysaccharide PPV23 (Pneumovax) 07/20/2007 Season Influenza, Quad, PF, Adjuvanted, 65+ Yrs, IM (FLUAD) 11/29/2019 Seasonal Influenza, PF, 6 M & above, IM , (FluLaval or Fluzone) 11/21/2017,11/29/2016 Seasonal Influenza, Quadriva lent Hd (Fluzone Hd) [...] encounter Miscellaneous Notes * Telephone Encounter - Jayde Washington OSA - 12/20/2022 10:01 AM EDT No Appointments Available Patient declined appointments?: Yes What Visit Type is needed? Hospital Discharge If Acute Visit Type is needed, were surrounding clinics offered to patient (Yes/No)? No, explain hospital discharge appt Was patient offered appointments with other available providers (Yes/No)? No, explain No available appointments for today 10/30/23 would like patient seen today if possible. See Call Details? (Yes or No): No documented in this encounter Plan of Treatment Upcoming Encounters Date Type Department Care Team (Late st Contact Info) Description 03/23/2023 11:20 AM EST Office Visit General Internal Medicine [facility] [address] [place] [address] Jennifer Sarkar MD 200 [facility] [place] [address] 05/06/2023 2:30 PM EDT Office Visit Cardiology, [facility] 132 [place] [address] Filemon Ramirez MD 132 [place] [address] 08/03/2023 9:30 AM EDT Office Visit Urology, [facility] [address] [place] [address] Man Gu MD 27 [facility] 270 [facility] [place] [address] 08/11/2023 8:00 AM EDT Office Visit Rheumatology [address] [place] [address] Meryl Santiago CRNP [facility] [place] [address] 10/20/2023 7:00 AM EDT Office Visit Nephrology, [facility] 200 [facility] [place] [address] Yumiko Philippe MD 200 [facility] [place] [address] Scheduled Procedures Name Priority Associated Diagnoses Date/Ti me COLONOSCOPY FLEXIBLE PROXIMAL DIAGNOSTIC Recall History of colon polyps Health Maintenance Due Date Last Done Comments DXA Scan 08/05/2021 08/06/2019, 04/0 04/2017, 05/13/2015, Additional history exists COLONOSCOPY-EVERY 5 YRS AGES 18-100 06/03/2022 06/03/2017, 02/01/2007 Depression Screening 09/09/2022 09/09/2021 COVID-19 Vaccine (2022- season) 2022 05/14/2020, 04/18/2020 GFR 12/02/2023 12/01/2022, [...] D LEVEL ONCE IN A LIFETIME-USE SMARTSET# [id number] Completed 12/01/2022, 09/09/2021, 04/08/2021, Additional history exists [...] this encounter Medical Devices Implanted Type Area Product Marketing Coordinator Device Identifier Shelf Expiration Date Model / Serial / Lot Lens Intraoc 23.0 - [id number] - [id number] Implanted:Qty: 1 on 12/21/2016 by Raj Bernard MD at [facility] Left: Eye BAUSCH & LOMB 06/20/2021 [id number] / [id number] / Lens Intraoc 22.0 - [id number] - [id number] Implanted:Qty: 1 on 01/06/2017 by Raj Bernard MD at OR [facility] Right: Eye BAUSCH & LOMB 08/20/2021 [id number] / [id number] / [id number] documented as of this encounter Additional Health Concerns Infection Onset Date Last Indicated Resolved Time Respiratory Rule-Out 12/20/2022 12/20/2022 023 10:11 PM EDT Enterovirus (resp)/Rhinovirus 12/20/2022 12/20/2022 01/10/2023 12:20 AM EST documented as of this encounter Advance Directives [...] the patient have Health Care Power of Repair Cameraman? No Care Teams Associate Professor Of Counseling Relationship Specialty Start Date End Date Jennifer Sarkar MD [address] [place] [address] PCP - General Internal Medicine 10/06/20 documented as of this encounter
--- OUTSIDE RECORDS SUMMARY | 2023-07-03 07:46 | External Medical Summary ---
Author Name Unknown Address Unknown Organization K09:[facility] - [address] [place] [address] Laboratory Report Ordering Provider Test Date Status JESSA METZGER 03/23/2023 13:05:58 Final Observation Date Value Abnormality Reference (Units ) Status BUN 03/23/2023 13:05:58 10 6-20 (mg/dL) Final Creatinine 03/23/2023 13:05:58 0.9 0.6-1.2 (mg/dL) Final Glomerular filtration rate/1.73 sq M.predicted [Volume Rate/Area] in Serum, Plasma or Blood by Creatinine-based formula (CKD-EPI) 03/23/2023 13:05:58 87 >=60 (mL/min) Final eGFR is calculated based on the CKD-EPI 2020 equation SODIUM 03/23/2023 13:05:58 140 135-146 (m mol/L) Final Potassium 03/23/2023 13:05:58 4.5 3.5-5.1 (m mol/L) Final Cl 03/23/2023 13:05:58 98 98-107 (mm ol/L) Final CO2 03/23/2023 13:05:58 31 22-32 (mmo l/L) Final Anion gap 03/23/2023 13:05:58 11 7-15 (mmol /L) Final Glucose 03/23/2023 13:05:58 106 70-120 (mg /dL) Final Albumin 03/23/2023 13:05:58 4.2 3.8-5.0 (g /dL) Final AST (Aspartate aminotransferase) 03/23/2023 13:05:58 23 10-50 (U/L) Final Result may be falsely elevat ed due to hemolysis. Alk Phos 03/23/2023 13:05:58 121 35-130 (U/ L) Final Bilirubin, Total 03/23/2023 13:05:58 0.6 <=1 .2 (mg/dL) Final Calcium 03/23/2023 13:05:58 10.5 Above high normal 8. 4-10.2 (mg/dL) Final Protein 03/23/2023 13:05:58 7.4 6.0-8.3 (g /dL) Final ALT (Alanine aminotransferase) 03/23/2023 13:05:58 13 10-50 (U/L) Benito tamez Performing Location [facility] [place] [address] [place] [address]
--- OUTSIDE RECORDS SUMMARY | 2023-07-03 07:46 | External Medical Summary | Summary of Care ---
Author Name Unknown Organization [facility] Address [address] [facility] [place] [address] Phone [phone] Care Team Providers Care Messenger Office Name Role Phone Jennifer Sarkar MD Primary Care Provider [phone] Reason for Visit * Reason Onset Date Comments Advice 03/21/2023 Encounter Details Date Type Department Care Team (Late st Contact Info) Description 03/21/2023 Telephone General Internal Medicine [facility] 200 [place] [address] Jennifer Sarkar MD 200 [place] [address] Advice Allergies Active Allergy Reactions Criticality Noted [...] Active Additional Information Patient taking differently:1,000 mg GibiB4S PRN, ,may take 3rd dose in between [...] mRNA, LNP-s, No Pre serve, 2-Dose Series (Infoblox) 05/14/2020,04/18/2020 H1N1 2009 Influenza, IM 04/22/2009 PPD [...] encounter Miscellaneous Notes * Telephone Encounter - Karissa Ryan LPN - 03/23/2023 4:41 PM EST Ricardo PT calling from [facility] He stated that patient was finally able to make to in to see PCP for Hospital follow up appointment. Ricardo is sending over orders for signature for PT continuation and also Jail help managehis medications. FYI * Telephone Encounter - Angie Limon OSA - 03/23/2023 4:36 PM EST Reason for patient's call: Ricardo/ PT for [facility] Home Health Caller was transferred to [facility] at the nurse line. * Telephone Encounter - Veronica Bueno LPN - 03/21/2023 1:00 PM EST Concerns Ricardo PT, Calling from: [facility] Report/Concerns of: miss appts due to transportation Narrative: pt has difficult with transportation and making appt with PCP. He miss appt with f/u Scheduled appt. * Telephone Encounter - Jayde Sam OSA - 03/21/2023 12:59 PM EST Reason for patient's call: Ricardo from [facility] Home Health Caller was transferred to Veronica [...] 10:30 AM EST PulmDiagnostic Pulmonary Function Lab, [facility] [address] [facility] [place] [address] [place], [address] [facility] [place] [address] 04/04/2023 3:20 PM EST Office Visit Pulmonary Medicine, [facility] [address] [facility] [place] [address] Wing Acevedo, DO [address] [place] [address] 04/07/2023 1:00 PM EST Office Visit Orthopaedics [facility] [address] [facility] [place] [address] Chase Paz MD 132 [facility] [place] [phone] 05/06/2023 2:30 PM EDT Office Visit Cardiology, [facility] [address] [facility] [place] [address] Filemon Ramirez MD [address] [place] [address] 06/14/2023 9:00 AM EDT Imaging Radiology, [address] [place] [address] 06/22/2023 5:00 PM EDT Office Visit General Internal Medicine [facility] 200 [facility] [place] [address] Jennifer Sarkar MD 200 [facility] [place] [address] 08/03/2023 9:30 AM EDT Office Visit Urology, [facility] [address] [facility] [place] [address] Man Gu MD [address] [place] [address] [place] [address] 08/11/2023 8:00 AM EDT Office Visit Rheumatology [facility] [address] [place] [address] Meryl Santiago CRNP [address] [place] [address] 10/20/2023 7:00 AM EDT Office Visit Nephrology, [facility] 200 [facility] [place] [address] Yumiko Philippe MD 200 [place] [address] Scheduled Procedures Name Priority Associated Diagnoses Date/Ti [...] D LEVEL ONCE IN A LIFETIME-USE SMARTSET# [id number] Completed 12/01/2022, 09/09/2021, 04/08/2021, Additional history exists [...] this encounter Medical Devices Implanted Type Area Engraver Pantograph Device Identifier Shelf Expiration Date Model / Serial / Lot Lens Intraoc 23.0 - [id number] - [id number] Implanted:Qty: 1 on 12/21/2016 by Raj Bernard MD at OR [facility] Left: Eye BAUSCH & LOMB 06/20/2021 [id number] / [id number] / Lens Intraoc 22.0 - [id number] - [id number] Implanted:Qty: 1 on 01/06/2017 by Raj Bernard MD at OR [facility] Right: Eye BAUSCH & LOMB 08/20/2021 [id number] / [id number] / [id number] documented as of this encounter Advance Directives [...] the patient have Health Care Power of Development Officer? No Care Teams Messenger Office Relationship Specialty Start Date End Date Jennifer Sarkar MD 200 [facility] [place] [address] PCP - General Internal Medicine 10/06/20 documented as of this encounter
--- OUTSIDE RECORDS SUMMARY | 2023-07-03 07:46 | External Medical Summary | Summary of Care ---
Author Name Unknown Organization [facility] Address [address] [facility] [place] [address] Phone [phone] Care Team Providers Care Veterinary Technician Assistant Name Role Phone Jennifer Sarkar MD Primary Care Provider [phone] Reason for Visit * Reason Onset Date Comments Forms Request 03/17/2023 Encounter Details Date Type Department Care Team (Late st Contact Info) Description 03/17/2023 Telephone General Internal Medicine [facility] 200 [place] [address] Jennifer Sarkar MD 200 [place] [address] Forms Request Allergies Active Allergy Reactions Criticality Noted Date Comments Food (See Comments) 03/21/2018 Other reaction(s): WAS TOLD NOT TO TAKE grapefruit Tramadol Other (Please comment) High 10/06/2020 Hallucinations documented as of this encounter (statuses as of 03/18/2023) Medications Medication Sig Dispensed Refills Start Date [...] Active Additional Information Patient taking differently:1,000 mg IijpE0D PRN, ,may take 3rd dose in between [...] right-sided heart failure (HCC),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,Bilateral leg edema TAKE [...] as of this encounter (statuses as of 03/18/2023) Active Problems Problem Noted Date Diagnosed Date Hypercalcemia 12/03/2022 Supplemental oxygen dependent 05/06/2022 Nasal septal perforation 05/06/2022 Chronic respiratory failure with hypoxia 022 Granulomatous lung disease 09/18/2021 Chronic rhinitis 06/10/2021 Schatzki's ring of distal esophagus 06/10/2021 Chronic right-sided heart failure 04/08/2020 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 14 Martiniquais flexible cystoscope inserted into urethra and guided [...] as of this encounter (statuses as of 03/18/2023) Immunizations Name Administration Dates Next Due COVID-19 mRNA, LNP-s, No Pre serve, 2-Dose Series (WILEX) 05/14/2020,04/18/2020 H1N1 2009 Influenza, IM 04/22/2009 PPD [...] encounter Miscellaneous Notes * Telephone Encounter - Veronica Bueno LPN - 03/18/2023 9:06 AM EST Sister returned call, informed of message. She verbalized understanding. she will relay the messageand have him call for an appt. * Telephone Encounter - Joel David LPN - 03/17/2023 7:36 AM EST Received fax from [facility] Home care requesting Jennifer Sarkar MD signature of the plan of care forms. Provider will not sign until pt has visit. Pt has repeatedly no showed and canceled numerous appointments. LM for pt to call back to reschedule. LM with pt's sister to have her brother call us as well. [facility] Home health informed documented in this encounter Plan of Treatment Upcoming Encounters Date Type Department Care Team (Late st Contact Info) Description 05/06/2023 2:30 PM EDT Office Visit Cardiology, [facility] [address] [place] [address] Filemon Ramirez MD 132 [place] [address] 08/03/2023 9:30 AM EDT Office Visit Urology, [facility] [address] [place] [address] Man Gu MD 27 [facility] 270 [place] [address] 08/11/2023 8:00 AM EDT Office Visit Rheumatology [address] [place] [address] Meryl Santiago CRNP [address] [place] [address] [place] [address] 10/20/2023 7:00 AM EDT Office Visit Nephrology, [place] 200 [facility] [place] [address] Yumiko Philippe MD 200 [facility] [place] [address] Scheduled Procedures Name Priority Associated Diagnoses Date/Ti [...] D LEVEL ONCE IN A LIFETIME-USE SMARTSET# [id number] Completed 12/01/2022, 09/09/2021, 04/08/2021, Additional history exists [...] this encounter Medical Devices Implanted Type Area Farm Labor Contractor Device Identifier Shelf Expiration Date Model / Serial / Lot Lens Intraoc 23.0 - [id number] - [id number] Implanted:Qty: 1 on 12/21/2016 by Raj Bernard MD at OR [facility] Left: Eye BAUSCH & LOMB 06/20/2021 [id number] / [id number] / Lens Intraoc 22.0 - [id number] - [id number] Implanted:Qty: 1 on 01/06/2017 by Raj Bernard MD at OR [facility] Right: Eye BAUSCH & LOMB 08/20/2021 [id number] / [id number] / [id number] documented as of this encounter Advance Directives [...] the patient have Health Care Power of Material Handling Equipment Stevedore? No Care Teams Veterinary Technician Assistant Relationship Specialty Start Date End Date Jennifer Sarkar MD 200 [facility] [place] [address] PCP - General Internal Medicine 10/06/20 documented as of this encounter
--- OUTSIDE RECORDS SUMMARY | 2023-07-03 07:46 | External Medical Summary | Summary of Care ---
Author Name Unknown Organization [facility] Address [address] [facility] [place] [address] Phone [phone] Care Team Providers Care Mortising Machine Operator Name Role Phone Jennifer Sarkar MD Primary Care Provider [phone] Reason for Visit * Reason Onset Date Comments Forms Request 03/17/2023 Encounter Details Date Type Department Care Team (Late st Contact Info) Description 03/17/2023 Telephone General Internal Medicine [facility] 200 [place] [address] Jennifer Sarkar MD 200 [place] [address] Forms Request Allergies Active Allergy Reactions Criticality [...] Active Additional Information Patient taking differently:1,000 mg BnhmJ6I PRN, ,may take 3rd dose in between [...] right-sided heart failure (HCC),Coronary artery disease involving am[place] coronary artery of ambler heart without angina pectoris,Bilateral leg edema TAKE [...] failure 04/08/2020 Coronary artery disease invo lving ambler coronary artery of ambler heart without angina pectoris 11/21/2018 Abnormality of [...] and draped in usual sterile manner. 14 Maltese flexible cystoscope inserted into urethra and guided [...] mRNA, LNP-s, No Pre serve, 2-Dose Series ([employer]ContactForm) 05/14/2020,04/18/2020 H1N1 2009 Influenza, IM 04/22/2009 PPD [...] Telephone Encounter - Jennifer Sarkar MD - 03/18/2023 4:12 PM EST Noted. I cannot sign HH forms without seeing patient for hosp + rehab stay f/u. * Telephone Encounter - Veronica Bueno LPN - 03/18/2023 9:06 AM EST Sister returned call, informed of message. She verbalized understanding. she will relay the messageand have him call for an appt. * Telephone Encounter - Joel David LPN - 03/17/2023 7:36 AM EST Received fax from [facility] Home care requesting Jennifer Sarkar MD signature of the plan of care forms. Provider will not sign until pt has visit. Pt has repeatedly no showed and canceled numerous appointments. LM for pt to call back to reschedule. LM with pt's sister to have her brother call us as well. [facility] Home health informed documented in this encounter Plan of Treatment Upcoming Encounters Date Type Department Care Team (Late st Contact Info) Description 05/06/2023 2:30 PM EDT Office Visit Cardiology, [facility] [address] [place] [address] Filemon Ramirez MD [address] [place] [address] 08/03/2023 9:30 AM EDT Office Visit Urology, [facility] [address] [place] [address] Man Gu MD 27 [facility] [address] [place] [id number] 08/11/2023 8:00 AM EDT Office Visit Rheumatology [facility] [address] [facility] [place], [place] [address] Meryl Santiago CRNP [address] [employer] [place] [address] 10/20/2023 7:00 AM EDT Office Visit Nephrology, [facility] 200 [facility] [place] [address] Yuimko Philippe MD 200 [facility] [place] [address] Scheduled Procedures Name Priority Associated Diagnoses Date/Ti [...] D LEVEL ONCE IN A LIFETIME-USE SMARTSET# [id number] Completed 12/01/2022, 09/09/2021, 04/08/2021, Additional history exists [...] this encounter Medical Devices Implanted Type Area Putty Mixer Device Identifier Shelf Expiration Date Model / Serial / Lot Lens Intraoc 23.0 - [id number] - [id number] Implanted:Qty: 1 on 12/21/2016 by Raj Bernard MD at OR [facility] Left: Eye BAUSCH & LOMB 06/20/2021 [id number] / [id number] / Lens Intraoc 22.0 - [id number] - [id number] Implanted:Qty: 1 on 01/06/2017 by Raj Bernard MD at OR [facility] Right: Eye BAUSCH & LOMB 08/20/2021 [id number] / [id number] / [id number] documented as of this encounter Advance Directives [...] the patient have Health Care Power of Floor Layer? No Care Teams Mortising Machine Operator Relationship Specialty Start Date End Date Jennifer Sarkar MD 200 [place] [address] PCP - General Internal Medicine 10/06/20 documented as of this encounter
--- OUTSIDE RECORDS SUMMARY | 2023-07-03 07:46 | External Medical Summary ---
Author Name Unknown Address Unknown Organization K01:LABORATORY [facility] - [address] [place] [address] Laboratory Report Ordering Provider Test Date Status JESSA METZGER 03/23/2023 13:05:58 Final Observation Date Value Abnormality Reference (Units ) Status TSH 03/23/2023 13:05:58 1.70 0.27-4.20 (uIU/mL) Final Performing Location [facility] - [address] [address]
--- OUTSIDE RECORDS SUMMARY | 2023-07-03 07:46 | External Medical Summary | Summary of Care ---
Author Name Unknown Organization [facility] Address [address] [facility] [place] [address] Phone [phone] Care Team Providers Care Residential Insurance Inspector Name Role Phone Jennifer Sarkar MD Primary Care Provider [phone] Reason for Visit * Reason Onset Date Comments Advice 03/21/2023 Encounter Details Date Type Department Care Team (Late st Contact Info) Description 03/21/2023 Telephone General Internal Medicine [facility] 200 [place] [address] Jennifer Sarkar MD 200 [place] [address] Advice Allergies Active Allergy Reactions Criticality Noted [...] Active Additional Information Patient taking differently:1,000 mg EpozI8R PRN, ,may take 3rd dose in between [...] right-sided heart failure (HCC),Coronary artery disease involving council coronary artery of council heart without angina pectoris,Bilateral leg edema TAKE [...] failure 04/08/2020 Coronary artery disease invo lving council coronary artery of council heart without angina pectoris 11/21/2018 Abnormality of [...] and draped in usual sterile manner. 14 Canadian flexible cystoscope inserted into urethra and guided [...] mRNA, LNP-s, No Pre serve, 2-Dose Series ([employer]) 05/14/2020,04/18/2020 H1N1 2009 Influenza, IM 04/22/2009 PPD [...] Bueno LPN - 03/21/2023 1:00 PM EST HH Concerns Ricardo PT, Calling from: [facility] Report/Concerns of: miss appts due to transportation Narrative: pt has difficult with transportation and making appt with PCP. He miss appt with f/u Scheduled appt. * Telephone Encounter - Jayde Sam OSA - 03/21/2023 12:59 PM EST Reason for patient's call: Ricardo from [facility] Home Health Caller was transferred to [...] AM EST Office Visit [facility] [address] [place] [address] Jennifer Sarkar MD [address] [place] [address] 05/06/2023 2:30 PM EDT [facility] 132 [place] [address] Filemon Ramirez MD [address] [place] [address] 08/03/2023 9:30 AM EDT Office Visit Urology, [facility] [address] [place] [address] Man Gu MD 27 [facility] [place] [address] [place] [address] 08/11/2023 8:00 AM EDT Office Visit Rheumatology [facility] 25[address] [facility] [place] [address] Meryl Santiago CRNP [address] [facility] [place] [address] 10/20/2023 7:00 AM EDT Office Visit Nephrology, [facility] 200 [facility] [place] [address] Ymuiko Philippe MD 200 [facility] [place] [address] Scheduled Procedures Name Priority Associated Diagnoses Date/Ti [...] D LEVEL ONCE IN A LIFETIME-USE SMARTSET# [id number] Completed 12/01/2022, 09/09/2021, 04/08/2021, Additional history exists [...] this encounter Medical Devices Implanted Type Area Education Intern Device Identifier Shelf Expiration Date Model / Serial / Lot Lens Intraoc 23.0 - [id number] - [id number] Implanted:Qty: 1 on 12/21/2016 by Raj Bernard MD at OR [facility] Left: Eye BAUSCH & LOMB 06/20/2021 [id number] / [id number] / Lens Intraoc 22.0 - [id number] - [id number] Implanted:Qty: 1 on 01/06/2017 by Raj Bernard MD at OR [facility] Right: Eye BAUSCH & LOMB 08/20/2021 [id number] / [id number] / [id number] documented as of this encounter Advance Directives [...] the patient have Health Care Power of Driver'S License Reviewing Officer? No Care Teams Residential Insurance Inspector Relationship Specialty Start Date End Date Jennifer Sarkar MD 200 [facility] [place] [address] PCP - General Internal Medicine 10/06/20 documented as of this encounter
--- OUTSIDE RECORDS SUMMARY | 2023-07-03 07:46 | External Medical Summary | Summary of Care ---
Author Name Unknown Organization [facility] Address [address] [facility] [place] [address] Phone [phone] Care Team Providers Care Aerospace Manager Name Role Phone Jennifer Sarkar MD Primary Care Provider [phone] Reason for Visit * Reason Onset Date Comments Test Results 03/17/2023 Encounter Details Date Type Department Care Team (Late st Contact Info) Description 03/17/2023 Telephone General Internal Medicine [facility] 200 [place] [address] Jennifer Sarkar MD 200 [place] [address] Test Results Allergies Active Allergy Reactions Criticality Noted Date Comments Food (See Comments) 03/21/2018 Other reaction(s): WAS TOLD NOT TO TAKE grapefruit Tramadol Other (Please comment) High 10/06/2020 Hallucinations documented as of this encounter (statuses as of 03/17/2023) Medications Medication Sig Dispensed Refills Start Date [...] Active Additional Information Patient taking differently:1,000 mg TyxiG3P PRN, ,may take 3rd dose in between [...] right-sided heart failure (HCC),Coronary artery disease involving [place] coronary artery of [place] heart without angina pectoris,Bilateral leg edema TAKE [...] as of this encounter (statuses as of 03/17/2023) Active Problems Problem Noted Date Diagnosed Date Hypercalcemia 12/03/2022 Supplemental oxygen dependent 05/06/2022 Nasal septal perforation 05/06/2022 Chronic respiratory failure with hypoxia 022 Granulomatous lung disease 09/18/2021 Chronic rhinitis 06/10/2021 Schatzki's ring of distal esophagus 06/10/2021 Chronic right-sided heart failure 04/08/2020 Coronary artery disease invo lving [place] coronary artery of [place] heart without angina pectoris 11/21/2018 Abnormality of [...] as of this encounter (statuses as of 03/17/2023) Resolved Problems Problem Noted Date Diagnosed Date [...] as of this encounter (statuses as of 03/17/2023) Immunizations Name Administration Dates Next Due COVID-19 mRNA, LNP-s, No Pre serve, 2-Dose Series ([employer]) 05/14/2020,04/18/2020 H1N1 2009 Influenza, IM 04/22/2009 PPD [...] encounter Miscellaneous Notes * Telephone Encounter - Joel David LPN - 03/17/2023 7:36 AM EST Received fax from [facility] Home care requesting Jennifer Sarkar MD signature of the plan of care forms. Provider will not sign until pt has visit. Pt has repeatedly no showed and canceled numerous appointments. LM for pt to call back to reschedule. LM with pt's sister to have her brother call us as well. documented in this encounter Plan of Treatment Upcoming Encounters Date Type Department Care Team (Late st Contact Info) Description 05/06/2023 2:30 PM EDT Office Visit Cardiology, [facility] 132 [facility] [place] [address] Filemon Ramirez MD 132 [facility] [place] [address] 08/03/2023 9:30 AM EDT Office Visit Urology, [facility] 132 [facility] [place] [address] Man Gu MD [address] [place] [address] [place] [address] 08/11/2023 8:00 AM EDT Office Visit Rheumatology [address] [place] [address] Meryl Santiago CRNP [address] [place] [address] [place] [address] 10/20/2023 7:00 AM EDT Office Visit Nephrology, [place] [address] [place] [address] Yumiko Philippe MD 200 [facility] [place] [address] Scheduled Procedures Name Priority Associated Diagnoses Date/Ti [...] D LEVEL ONCE IN A LIFETIME-USE SMARTSET# [id number] Completed 12/01/2022, 09/09/2021, 04/08/2021, Additional history exists [...] this encounter Medical Devices Implanted Type Area Reprint Sorter Device Identifier Shelf Expiration Date Model / Serial / Lot Lens Intraoc 23.0 - [id number] - [id number] Implanted:Qty: 1 on 12/21/2016 by Raj Bernard MD at [facility] Left: Eye BAUSCH & LOMB 06/20/2021 [id number] / [id number] / Lens Intraoc 22.0 - [id number] - [id number] Implanted:Qty: 1 on 01/06/2017 by Raj Bernard MD at OR [facility] Right: Eye BAUSCH & LOMB 08/20/2021 [id number] / [id number] / [id number] documented as of this encounter Advance Directives [...] the patient have Health Care Power of Deputy County Counsel? No Care Teams Aerospace Manager Relationship Specialty Start Date End Date Jennifer Sarkar MD 200 [place] [address] PCP - General Internal Medicine 10/06/20 documented as of this encounter
--- OUTSIDE RECORDS SUMMARY | 2023-07-03 07:46 | External Medical Summary | Summary of Care ---
Author Name Unknown Organization [facility] Address [address] [facility] [place] [address] Phone [phone] Care Team Providers Care Vegetable Tester Name Role Phone Jennifer Sarkar MD Primary Care Provider [phone] Reason for Visit * Reason Comments Outpatient Testing Encounter Details Date Type Department Care Team (Late st Contact Info) Description 03/23/2023 1:00 PM EST Laboratory Laboratory [facility] [address] [place] [address] [facility] [address] [place] [address] Acquired hypothyroidism; Coronary artery disease involving [place] coronary artery of [place] heart without angina pectoris; Dyslipidemia, goal LDL below 70; Chronic respiratory failure with hypoxia (HCC); HTN, goal below 140/90 Allergies Active Allergy Reactions Criticality Noted Date [...] Active Additional Information Patient taking differently:1,000 mg PtiwF9Y PRN, ,may take 3rd dose in between [...] right-sided heart failure (HCC),Coronary artery disease involving [place] coronary artery of [place] heart without angina pectoris,Bilateral leg edema TAKE [...] failure 04/08/2020 Coronary artery disease invo lving [place] coronary artery of [place] heart without angina pectoris 11/21/2018 Abnormality of [...] hypoxemia 06/08/2007 Overview: 3 LPM at bedtime [facility] [facility] [place] SPINAL STENOSIS-LUMBAR 07/29/2005 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 14 Gabonese flexible cystoscope inserted into urethra and guided [...] 10:30 AM EST PulmDiagnostic Pulmonary Function Lab, [facility] 132 [facility] [place] [address] [address], [address] [facility] [place] [address] 04/04/2023 3:20 PM EST Office Visit Pulmonary Medicine, [facility] 132 [facility] [place] [address] Wing Acevedo, DO [address] [place] [address] 04/07/2023 1:00 PM EST Office Visit Orthopaedics [facility] 132 [facility] [place] [address] Chase Paz MD 132 [facility] [place] [phone] 05/06/2023 2:30 PM EDT Office Visit Cardiology, [facility] 132 [facility] [place] [address] Filemon Ramirez MD [address] [place] [address] 06/14/2023 9:00 AM EDT Imaging Radiology, [address] [place] [address] 06/22/2023 5:00 PM EDT Office Visit General Internal Medicine [facility] 200 [facility] [place] [address] Jennifer Sarkar MD 200 [facility] [place] [address] 08/03/2023 9:30 AM EDT Office Visit Urology, [facility] 132 [facility] [place] [address] Man Gu MD [address] [place] [address] [facility] [address] 08/11/2023 8:00 AM EDT Office Visit Rheumatology [place] [address] [facility] [place] [address] Meryl Santiago CRNP [address] [place] [address] [place] [address] 10/20/2023 7:00 AM EDT Office Visit Nephrology, [facility] 200 [facility] [place] [address] Yumiko Philippe MD 200 [facility] [place] [address] Pending Results Name Type Priority Associated Diagnoses Date /Time TSH WITH FREE T4 IF INDICATED Lab Routine Acquired hypothyroidism 03/23/2023 1:05 PM EST LIPID PANEL WITH DIRECT LDL IF TG IS HIGH Lab Routine Coronary artery disease involving [place] coronary artery of [place] heart without angina pectoris Dyslipidemia, goal LDL below 70 03/23/2023 1:05 PM EST COMPREHENSIVE METABOLIC PANEL Lab Routine Chronic respiratory failure with hypoxia (HCC) HTN, goal below 140/90 Coronary artery disease involving [place] coronary artery of [place] heart without angina pectoris 03/23/2023 1:05 PM EST Scheduled Procedures Name Priority Associated [...] D LEVEL ONCE IN A LIFETIME-USE SMARTSET# [id number] Completed 12/01/2022, 09/09/2021, 04/08/2021, Additional history exists [...] this encounter Medical Devices Implanted Type Area Rail Loader Device Identifier Shelf Expiration Date Model / Serial / Lot Lens Intraoc 23.0 - [id number] - [id number] Implanted:Qty: 1 on 12/21/2016 by Raj Bernard MD at [facility] Left: Eye BAUSCH & LOMB 06/20/2021 [id number] / [id number] / Lens Intraoc 22.0 - [id number] - [id number] Implanted:Qty: 1 on 01/06/2017 by Raj Bernard MD at OR [facility] Right: Eye BAUSCH & LOMB 08/20/2021 [id number] / [id number] / [id number] documented as of this encounter Visit Diagnoses Diagnosis Acquired hypothyroidism Unspecified hypothyroidism Coronary artery disease involving [place] coronary artery of [place] heart without angina pectoris Dyslipidemia, goal LDL below 70 Other and unspecified hyperlipidemia Chronic respiratory failure with hypoxia (HCC) Chronic respiratory failure HTN, goal below 140/90 Unspecified essential hypertension documented in this encounter Advance Directives Latest [...] the patient have Health Care Power of Farmer Diversified Crops? No Care Teams Vegetable Tester Relationship Specialty Start Date End Date Jennifer Sarkar MD 200 [place] [address] PCP - General Internal Medicine 10/06/20 documented as of this encounter
--- OUTSIDE RECORDS SUMMARY | 2023-07-03 07:46 | External Medical Summary ---
Author Name Unknown Address Unknown Organization K01:LABORATORY [facility] - [address] [address] Laboratory Report Ordering Provider Test Date Status JESSA METZGER 03/23/2023 13:05:58 Final Observation Date Value Abnormality Reference (Units ) Status LDL, (direct) 03/23/2023 13:05:58 52 <=129 (mg/dL) Final LDL Cholesterol Reference Ra nges (mg/dL):
<70 Target level for high risk ASCVD patient
<100 Optimal for general population
100-129 Near optimal for general population
130-159 Borderline high
160-189 High
>=190 Very high Performing Location [facility] - [address] [address]
--- OUTSIDE RECORDS SUMMARY | 2023-07-03 07:46 | External Medical Summary | Summary of Care ---
Author Name Unknown Organization [facility] Address [address] [facility] [place] [address] Phone [phone] Care Team Providers Care Consumer Product Advisor Name Role Phone Jennifer Sarkar MD Primary Care Provider [phone] Reason for Visit * Reason Onset Date Comments Advice 03/21/2023 Encounter Details Date Type Department Care Team (Late st Contact Info) Description 03/21/2023 Telephone General Internal Medicine [facility] 200 [place] [address] Jennifer Sarkar MD [address] [place] [address] Advice Allergies Active Allergy Reactions Criticality Noted [...] Active Additional Information Patient taking differently:1,000 mg NxtrJ0U PRN, ,may take 3rd dose in between [...] right-sided heart failure (HCC),Coronary artery disease involving [place] coronary artery of [place] heart without angina pectoris,Bilateral leg edema TAKE [...] failure 04/08/2020 Coronary artery disease invo lving [place] coronary artery of [place] heart without angina pectoris 11/21/2018 Abnormality of [...] mRNA, LNP-s, No Pre serve, 2-Dose Series ([employer]) 05/14/2020,04/18/2020 H1N1 2009 Influenza, IM 04/22/2009 PPD [...] encounter Miscellaneous Notes * Telephone Encounter - Angie Limon OSA - 03/23/2023 4:36 PM EST Reason for patient's call: Ricardo/ PT for [facility] Home Health Caller was transferred to [facility] at the nurse line. * Telephone Encounter - Veronica Bueno LPN - 03/21/2023 1:00 PM EST HH Concerns Ricardo PT, Calling from: [facility] Report/Concerns of: miss appts due to transportation Narrative: pt has difficult with transportation and making appt with PCP. He miss appt with f/u Scheduled appt. * Telephone Encounter - Jayde Sam OSA - 03/21/2023 12:59 PM EST Reason for patient's call: Ricardo from [facility] Home Health Caller was transferred to [place] at the nurse line. * Telephone Encounter [...] 10:30 AM EST PulmDiagnostic Pulmonary Function Lab, [facility] 132 [facility] [place] [address] [address], [address] [facility] [place] [address] 04/04/2023 3:20 PM EST Office Visit Pulmonary Medicine, [facility] 132 [facility] [place] [address] Wing Acevedo, DO [address] [place] [address] 04/07/2023 1:00 PM EST Office Visit Orthopaedics [facility] 132 [facility] [place] [address] Chase Paz MD 132 [facility] [place] [phone] 05/06/2023 2:30 PM EDT Office Visit Cardiology, [facility] 132 [facility] [place] [address] Filemon Ramirez MD [address] [place] [address] 06/14/2023 9:00 AM EDT Imaging Radiology, [place] [address]60 [facility] [place] [address] 06/22/2023 5:00 PM EDT Office Visit [facility] [address] [place] [address] Jennifer Sarkar MD [address] [place] [address] 08/03/2023 9:30 AM EDT Office Visit Urology, [facility] 132 [facility] [place] [address] Man Gu MD [address] [place] [address] [place] [address] 08/11/2023 8:00 AM EDT Office Visit Rheumatology [facility] [address] [employer] [place] [address] Meryl Santiago CRNP [address] [employer] [place] [address] 10/20/2023 7:00 AM EDT Office Visit Nephrology, [facility] 200 [facility] [place] [address] Yumiko Philippe MD 200 [facility] [place] [address] Scheduled Procedures Name Priority Associated Diagnoses Date/Ti [...] D LEVEL ONCE IN A LIFETIME-USE SMARTSET# 74430 Completed 12/01/2022, 09/09/2021, 04/08/2021, Additional history exists [...] this encounter Medical Devices Implanted Type Area Hospital Housekeeper Device Identifier Shelf Expiration Date Model / Serial / Lot Lens Intraoc 23.0 - [id number] - [id number] Implanted:Qty: 1 on 12/21/2016 by Raj Bernard MD at OR [facility] Left: Eye BAUSCH & LOMB 06/20/2021 [id number] / [id number] / Lens Intraoc 22.0 - [id number] - [id number] Implanted:Qty: 1 on 01/06/2017 by Raj Bernard MD at OR [facility] Right: Eye BAUSCH & LOMB 08/20/2021 [id number] / [id number] / [id number] documented as of this encounter Advance Directives [...] the patient have Health Care Power of Cross Tie Maker? No Care Teams Consumer Product Advisor Relationship Specialty Start Date End Date Jennifer Sarkar MD [address] [place] [address] PCP - General Internal Medicine 10/06/20 documented as of this encounter
--- OUTSIDE RECORDS SUMMARY | 2023-07-03 07:46 | External Medical Summary | Summary of Care ---
Author Name Unknown Organization [facility] Address [address] [facility] [place] [address] Phone [phone] Care Team Providers Care Hunter Name Role Phone Jennifer Sarkar MD Primary Care Provider [phone] Reason for Visit * Reason Onset Date Comments Forms Request 03/17/2023 Encounter Details Date Type Department Care Team (Late st Contact Info) Description 03/17/2023 Telephone General Internal Medicine [facility] [address] [place] [address] Jennifer Sarkar MD [address] [place] [address] Forms Request Allergies Active Allergy Reactions Criticality [...] Active Additional Information Patient taking differently:1,000 mg JetyS7N PRN, ,may take 3rd dose in between [...] right-sided heart failure (HCC),Coronary artery disease involving [place] coronary artery of [place] heart without angina pectoris,Bilateral leg edema TAKE [...] failure 04/08/2020 Coronary artery disease invo lving [place] coronary artery of [place] heart without angina pectoris 11/21/2018 Abnormality of [...] and draped in usual sterile manner. 14 [place]ati flexible cystoscope inserted into urethra and guided [...] mRNA, LNP-s, No Pre serve, 2-Dose Series (Zarfo) 05/14/2020,04/18/2020 H1N1 2009 Influenza, IM 04/22/2009 PPD [...] 03/17/2023 7:36 AM EST Received fax from [facility] Home care requesting Jennifer Sarkar MD signature of the plan of care forms. Provider will not sign until pt has visit. Pt has repeatedly no showed and canceled numerous appointments. LM for pt to call back to reschedule. LM with pt's sister to have her brother call us as well. [facility] Home health informed documented in this encounter Plan of Treatment Upcoming Encounters Date Type Department Care Team (Late st Contact Info) Description 05/06/2023 2:30 PM EDT Office Visit Cardiology, [facility] [address] [facility] [place] [address] Filemon Ramirez MD [address] [facility] [place] [address] 08/03/2023 9:30 AM EDT Office Visit Urology, [facility] [address] [facility] [place] [address] Man Gu MD [address] [place] [address] 08/11/2023 8:00 AM EDT Office Visit Rheumatology [place] [id number] [facility] [place] [address] Meryl Santiago CRNP [address] [facility] [place] [address] 10/20/2023 7:00 AM EDT Office Visit Nephrology, [facility] [address] [place] [address] Yumiko Philippe MD [address] [place] [address] Scheduled Procedures Name Priority Associated Diagnoses Date/Ti [...] D LEVEL ONCE IN A LIFETIME-USE SMARTSET# 53134 Completed 12/01/2022, 09/09/2021, 04/08/2021, Additional history exists [...] this encounter Medical Devices Implanted Type Area Cooler Deliverer Device Identifier Shelf Expiration Date Model / Serial / Lot Lens Intraoc 23.0 - [id number] - [id number] Implanted:Qty: 1 on 12/21/2016 by Raj Bernard MD at OR [facility] Left: Eye [employer] 06/20/2021 [id number] / [id number] / Lens Intraoc 22.0 - [id number] - [id number] Implanted:Qty: 1 on 01/06/2017 by Raj Bernard MD at OR [facility] Right: Eye [employer] 08/20/2021 [id number] / [id number] / [id number] documented as of this encounter Advance Directives [...] the patient have Health Care Power of Ground Support Agent? No Care Teams Hunter Relationship Specialty Start Date End Date Jennifer Sarkar MD [address] [place] [address] PCP - General Internal Medicine 10/06/20 documented as of this encounter
--- NOTE | 2023-07-03 07:54 | Emergency Department Note ---
Impression & Plan Generalized weakness, COPD (chronic obstructive pulmonary disease), Dizziness, Fall, Chronic hypoxic respiratory failure, on home oxygen therapy, Ambulatory dysfunction ED Provider Note ED Provider Note NAME: BLANCA MAHONEY AGE:82 SEX: Male : 1940 ARRIVES VIA: EMS INFORMANT: Patient ED PROVIDER(s): Anusha Vargas DO CHIEF COMPLAINT: Weakness, fall, dizziness HPI: This is an 82-year-old male brought in by EMS from home due to concern for weakness, and fall. Patient states he did not fell but felt so weak and dizzy that he lowered himself to the ground. He states he was too weak and dizzy to stand back up but crawled around on his floor for approximately 6 hours before finally calling for help. He states he had increased weakness in recent days. He does wear 3 L/min of oxygen chronically at home due to history of COPD. He denies any recent change in medications or recent illness. He states he has chronic low back and tailbone pain. He states when he lowered himself he may have hit his head but did not lose consciousness. Patient lives alone. Patient does admit to other prior falls. PAST MEDICAL HISTORY:See Below PAST SURGICAL HISTORY:See Below FAMILY HISTORY:See Below SOCIAL HISTORY:See Below HOME MEDICATIONS:See Below ALLERGIES:See Below VITALS:See Below PHYSICAL EXAMINATION: GENERAL: alert, well appearing, well nourished, no distress, non-toxic HEAD: nc/at EYE EXAM: normal conjunctiva, PERRL and EOM's grossly intact OROPHARYNX: no exudate, no erythema, lips, buccal mucosa, and tongue normal and mucous membranes are moist NECK: supple, no nuchal rigidity, no adenopathy, non-tender LUNGS: Clear to auscultation. Normal chest wall mechanics, no w/r/r HEART: no murmurs, S1 normal and S2 normal ABDOMEN: abdomen soft, non-tender, normo-active bowel sounds, no masses, no rebound or guarding. BACK: Back is symmetrical on inspection and there is no deformity, no midline tenderness, no CVA tenderness. SKIN: no rashes, petechiae, orbruising UPPER EXTREMITIES: upper extremities are grossly normal. FROM, nml pulses b/l. LOWER EXTREMITIES: No pitting edema. FROM, nml pulses b/l. NEURO EXAM: Normal sensorium, cranial nerves II-XII grossly intact, normal speech, no facial droop,nogross weakness of arms, no gross weakness of legs. Gross sensation intact. No ataxia. Vital Signs: reviewed and remarkable Differential Diagnosis: dehydration, stroke, anemia, hypoglycemia, hyponatremia, hypernatremia, urinary tract infection, pneumonia, bronchitis, sepsis, gastroenteritis, additional abdominal pathology, metabolic abnormalities, as well as others were considered MEDICAL DECISION MAKING: This is an 82-year-old male brought in by EMS due to concern for a fall and inability to get back to a standing position. Patient lives at home alone. He was afebrile vital signs stable. He was maintained on his usual 3 L/min via nasal cannula which patient is on chronically due to history of COPD. Labs drawn and sent, IV established, EKG and chest ray performed bedside interpreted by me and patient monitor on telemetry. He was initially sent for CT head and CT C-spine due to the recent falls. He denies any pain or concern for injury. He admitted to increased weakness over the course of the week as well as intermittent dizziness. Patient mildly clinically hydrated however labs otherwise initially reassuring. Urine finally collected and did show hematuria, in light of the concern for trauma and his use of Plavix, he was sent back for additional CT imaging. Additional CT of the abdomen and pelvis as well as lumbar spine were reassuring. No evidence of evolving infection. Patient cautiously hydrated with maintenance IV fluids due to prior documented history of CHF. Patient unable to steadily stand at bedside or even pivot/transfer. Due to concern for safe discharge plan and inability to walk in the setting of recent worsening weakness and multiple falls, the case was discussed with the hospitalist team for additional evaluation and management. Consultation(s): 1248: Discussed with Dr. Bean, [facility] hospitalist team, for additional evaluation and management. ER Treatment Provided: See below Diagnostics Interpreted By Me: -ECG: Normal sinus at 60, normal axis, normal intervals, nonspecific ST/T wave changes, baseline artifact and aberrancy noted, poor overall tracing -Cardiac Monitoring: An order was placed for continuous cardiac monitoring. The monitor shows a rate of 60 with normal sinus rhythm. -Laboratory studies: As stated above and show below. -Imaging studies: X-ray Chest: A single view study of the chest was reviewed and was negative for cardiomegaly, focal infiltrate, effusion, pulmonary edema, or wide mediastinum. Triage Nursing Note Reviewed Prior/Outside Records Reviewed Past Med/Surg History Medical History Fall Acute and chronic respiratory failure Restrictive lung disease Acute on chronic respiratory failure with hypoxemia Acute and chronic respiratory failure with hypercapnia Pulmonary embolism COVID-19 Choking REASON FOR UPCOMING PROCEDURE PER PT Ankle swelling PT PLANS TO DISCUSS WITH DR PT REPORTS DR HAD HIM STOP FLUID PILL AND NOT SURE WHY Infected dental caries Subperiosteal abscess of jaw Acute periodontal abscess Pain, dental Generalized muscle weakness Lower urinary tract symptoms (LUTS) Hypoxia DVT prophylaxis Chronic right-sided heart failure Fall HX, NOT RECENTLY Cervical spine fracture LAST SUMMER NO LIMITATIONS SOB (shortness of breath) on exertion with wheezing Scoliosis Chronic back pain Kidney stones ONE PRESENT/NO PROBLEMS WITH GERD (gastroesophageal reflux disease) Hypothyroidism On anticoagulant therapy plavix daily Tinnitus of both ears Depression Familial tremor reason for propranolol Hypertension Hyperlipidemia Myocardial Infarction 2009 Sleep apnea uses 4 L N/C MOSTLY ALL THE TIME On home oxygen therapy 3-4 L CONTINUOUS MOSTLY, AND PRN PER PT Chronic obstructive pulmonary disease COPD (chronic obstructive pulmonary disease) Scoliosis Dyslipidemia HTN (hypertension) Hypothyroidism CAD (coronary artery disease) Surgical History Hx of oral surgery (07/05/21) Multiple Teeth Extractions for Facial Infection - Sin Chacko DMD NO CURRENT INFECTION PER PT (PAT CALL 08/18/21) History of testicular surgery "sac full of blood in testicle drained at 26 yrs old" [place] of heart [place] [place] of open reduction and internal fixation (ORIF) procedure left foot fx/pinky toe fx--hardware in place History of lithotripsy Hx of vasectomy Hx of right inguinal hernia repair History of colonoscopy History of esophagogastroduodenoscopy (EGD) History of wisdom tooth extraction History of tonsillectomy History of bilateral cataract extraction History of cardiac [place] [facility] [place]--follows with Dr. James Vickersed coronary artery "bare metal stent to LAD 2008" Family History Sister Family history of reaction to anesthesia nausea/vomiting Mother Family history of diabetes mellitus Social History (Reviewed 07/03/23 @ 07:52 by JULES Redd Smoking Status: Never smoker Tobacco Type: Cigarettes Cigarettes Per Day: SMOKED PIPE/CIGAR AGE 21'S; Second Hand Exposure: No; Do You Dip or Chew Tobacco: No; Hx Alcohol Use: No Hx Substance Use: No Preferred Language: Malay Communication Ability: Effective Communication Tools: Other Visual Impairment: No Limitations Reports Analysis Manager Required: No Beliefs That Will Affect Care: None marital status: Current Living Situation: Alone Current Living Situation Comment: DOG How many Children do You have: 1 Feels Safe at Home: Yes Assistive Devices: Cane, Oxygen - Continuous and Walker Allergies Allergies Allergy/AdvReac Type Severity Reaction Status Date / Time tramadol AdvReac Intermediate Hallucinati Verified 03/12/23 02:38 ng grapefruit AdvReac Unknown WAS TOLD Verified 03/12/23 02:38 NOT TO TAKE BECAUSE OF CHOLESTROL PILL. Home Meds Home Medications Medication Instructions Recorded Confirmed citalopram 40 mg tablet 20 mg PO QAM 03/14/18 07/03/23 clopidogrel 75 mg tablet (Plavix) See Rx Instructions .Route .COMPLEX 03/14/18 07/03/23 nitroglycerin 0.4 mg sublingual 1 tab sublingual UD PRN Angina 03/14/18 07/03/23 tablet acetaminophen 500 mg tablet 1,000 mg PO Q6H PRN Pain 07/03/21 07/03/23 rosuvastatin 5 mg tablet 5 mg PO QAM 07/03/21 07/03/23 albuterol sulfate 90 mcg/actuation 2 puff inhalation Q6H PRN 10/14/22 07/03/23 aerosol inhaler Shortness Of Breath Or Wheezing duloxetine 30 mg capsule,delayed 60 mg PO QAM Pain 10/14/22 07/03/23 release furosemide 20 mg tablet 40 mg PO QAM 10/14/22 07/03/23 montelukast 10 mg tablet 10 mg PO QAM 10/14/22 07/03/23 (Singulair) pantoprazole 20 mg tablet,delayed 20 mg PO DAILYBB 10/14/22 07/03/23 release levothyroxine 112 mcg tablet 112 mcg PO DAILYBB 12/07/22 07/03/23 benzonatate 100 mg capsule 100 mg PO TID PRN Cough 01/02/23 07/03/23 ipratropium 20 mcg-albuterol 100 1 puff inhalation QID 01/02/23 07/03/23 mcg/actuation mist for inhalation sodium chloride-aloe vera nasal 1 applic intranasal BID PRN Dry 03/12/23 07/03/23 gel (Saline Nasal (aloe vera) gel) Nasal Passages tamsulosin 0.4 mg capsule 0.4 mg PO HS 07/03/23 07/03/23 Previous Rx's Medication Instructions Recorded propranolol 20 mg tablet 20 mg PO TID #90 tabs 11/13/22 oxycodone 5 mg tablet 5 mg PO Q8H PRN pain #10 tabs 01/09/23 Results & Data (ED) Vital Signs Vital Signs - 24 hr 07/03/23 07:49 07/03/23 07:49 07/03/23 08:28 Pulse Rate 60 60 Pulse Rate [Apical] 61 Respiratory Rate 23 20 Respiratory Effort / Characteristics Non-Labored Respiratory Depth Normal Normal Blood Pressure 136/89 Blood Pressure [Left Arm] 136/89 Blood Pressure Mean 104 Blood Pressure Mean [Left Arm] 104 Blood Pressure Position Lying Pulse Oximetry 92 94 Oxygen Delivery Method Nasal Cannula Nasal Cannula Oxygen Flow Rate 3 3 Sepsis Recent Fever Within 48 Hours No Sepsis New/Unexplained Change in Mental Status Yes Sepsis Action Taken by Nursing Physician Notified 07/03/23 10:12 07/03/23 11:07 07/03/23 12:35 Pulse Rate 58 L Pulse Rate [Apical] 60 60 Respiratory Rate 20 20 Respiratory Effort / Characteristics Non-Labored Non-Labored Respiratory Depth Normal Normal Blood Pressure Blood Pressure [Left Arm] 123/75 123/75 Blood Pressure Mean Blood Pressure Mean [Left Arm] 91 91 Blood Pressure Position Pulse Oximetry 97 98 Oxygen Delivery Method Nasal Cannula Nasal Cannula Oxygen Flow Rate 3 3 Sepsis Recent Fever Within 48 Hours Sepsis New/Unexplained Change in Mental Status Sepsis Action Taken by Nursing 07/03/23 12:42 Pulse Rate Pulse Rate [Apical] 59 L Respiratory Rate 20 Respiratory Effort / Characteristics Non-Labored Respiratory Depth Normal Blood Pressure Blood Pressure [Left Arm] 133/71 Blood Pressure Mean Blood Pressure Mean [Left Arm] 91 Blood Pressure Position Pulse Oximetry 98 Oxygen Delivery Method Room Air Oxygen Flow Rate Sepsis Recent Fever Within 48 Hours Sepsis New/Unexplained Change in Mental Status Sepsis Action Taken by Nursing Laboratory Data 07/03/23 08:04 07/03/23 08:04 Lab Results 07/03/23 07/03/23 Range/Units 08:04 11:05 WBC 10.51 (4.8-10.8) K/ul RBC 5.11 (4.70-6.10) M/uL Hgb 16.2 (14.0-18.0) g/dl Hct 48.0 (42.0-52.0) % MCV 93.9 (80.0-100.0) fL MCH 31.7 (25.0-34.0) pg MCHC 33.8 (32.0-36.0) g/dL RDW Std Deviation 49.0 H (36.4-46.3) fL RDW Coeff of Mannie 14.3 (11.5-14.5) % Plt Count 156 (130-400) K/uL MPV 9.8 (9.4-12.4) fL Immature Gran % (Auto) 0.8 % Neut % (Auto) 75.7 % Lymph % (Auto) 10.2 % [place] % (Auto) 12.6 % Eos % (Auto) 0.2 % Baso % (Auto) 0.5 % Neut # (Auto) 7.97 H (1.40-6.50) K/uL Lymph # (Auto) 1.07 L (1.20-3.40) K/uL [place] # (Auto) 1.32 H (0.11-0.59) K/uL Eos # (Auto) 0.02 (0.00-0.50) K/uL Baso # (Auto) 0.05 (0.00-0.20) K/uL Immature Gran # (Auto) 0.08 (0.01-0.20) K/uL PT 11.0 (9.0-12.0) Seconds INR 1.0 (0.9-1.1) Sodium 138 (136-145) mmol/L Potassium 3.5 (3.5-5.1) mmol/L Chloride 95 L (98-107) mmol/L Carbon Dioxide 34 H (21-32) mmol/L Anion Gap 9 (3-11) BUN 12 (6-23) mg/dl Creatinine 0.97 (0.6-1.4) mg/dl Est Cr Clr Drug Dosing 52.0 ml/min Est GFR ( Amer) 84.5 ml/min Est GFR (Non-Af Amer) 72.9 ml/min BUN/Creatinine Ratio 12.4 (10-20) Glucose 117 H (70-99(Fasting)) mg/dl Calcium 10.2 (8.6-10.3) mg/dl Magnesium 1.9 (1.7-2.4) mg/dl Total Bilirubin 0.9 (0.2-1.0) mg/dl AST 28 (13-39) U/L ALT 15 (7-52) U/L Alkaline Phosphatase 109 H (34-104) U/L Total Creatine Kinase 539 H (30-223) U/L Troponin I High Sens 17.4 (0-20) pg/ml B-Natriuretic Peptide 77 (0-100) pg/ml Total Protein 8.2 (6.0-8.3) gm/dl Albumin 4.7 (3.4-5.0) gm/dl Globulin 3.5 (2.5-4.0) gm/dl Albumin/Globulin Ratio 1.3 (0.9-2) Lipase 30 (11-82) U/L TSH 15.212 H (0.300-4.500) uIu/ml Free T4 0.79 (0.61-1.60) ng/dl Urine Color Dark Yellow Urine Appearance Cloudy A (Clear) Urine pH 5.5 (4.5-7.5) Ur Specific [place] 1.018 (1.000-1.030) Urine Protein 2+ H (Negative) Urine Glucose (UA) Negative (Negative) Urine Ketones 1+ H (Negative) Urine Blood 3+ H (Negative) Urine Nitrite Negative (Negative) Urine Bilirubin Negative (Negative) Urine Urobilinogen Negative (Negative) Ur Leukocyte Esterase Trace H (Negative) Urine WBC (Auto) 0-5 (0-5) /hpf Urine RBC (Auto) >20 H (0-2) /hpf U Hyaline Cast (Auto) 0-2 (0-2) /lpf U Epithel Cells (Auto) 3-5 H (0-2) /hpf Urine Bacteria (Auto) None Seen (None Seen) Administered Medications Sodium Chloride (Nss) 500 mls @ 80 mls/hr IV .Q6H15M PENDING SALE TO [facility] Stop: 08/02/23 07:59 Last Admin: 07/03/23 13:36 Dose: 80 mls/hr Documented By: Infusion: 07/03/23 11:37 Dose: Infused Documented By: Admin: 07/03/23 08:05 Dose: 80 mls/hr Documented By: IRIS Discontinued Medications Ioversol (Optiray 320 100ml) 94 ml IV ONCE ONE Stop: 07/03/23 11:59 Last Admin: 07/03/23 11:53 Dose: 94 ml Documented By: OMAR Lidocaine (Lidocaine 5% 1 Patch) 1 patch TD NOW STA Stop: 07/03/23 11:04 Last Admin: 07/03/23 11:26 Dose: 1 patch Documented By: HERB Imaging Data Radiologist's Impression: Cervical Spine CT 07/03/23 07:49 CT cervical spine wo con CLINICAL HISTORY: trauma TECHNIQUE: Multidetector row helical CT of the cervical spine was performed without administration of intravenous contrast. Coronal and sagittal reformations were obtained. Automated dose lowering techniques and/or adjustment according to patient size were utilized for this exam. Comparison: Comparison is made to CT cervical spine 12/07/2022 FINDINGS: No acute fractures or subluxations are identified. Degenerative changes are seen in the visualized spine. The alignment is normal. Soft tissues are unremarkable. IMPRESSION: Degenerative changes without evidence of acute bony injury. ACT 112: Negative or not required by law. Electronically signed by: Luis Rajan M.D. 07/03/2023 8:[address] 07/03/23 07:49 CT head/brain wo con CLINICAL HISTORY: trauma Technique: Contiguous axial CT images of the head were acquired from the base of the skull to the vertex without intravenous contrast administration. Images were viewed in brain, subdural and bone windows. Automated dose lowering techniques and/or adjustment according to patient size were utilized for this exam. Comparison: None available at the time of this dictation. Findings: Areas of decreased attenuation are present in the periventricular and subcortical white matter bilaterally consistent with small vessel ischemic disease. Generalized cerebral atrophy with commensurate enlargement of the ventricles, sulci, and cisterns is also present. There is no acute intracranial hemorrhage or evidence of acute territorial infarction. No shift of the midline structures, mass effect, or extra-axial abnormalities are shown. Atherosclerotic calcifications are present in the intracranial segments of the internal carotid arteries. Imaged portions of the paranasal sinuses and mastoid air cells are clear. The orbits appear normal. There are no acute fractures of the calvaria or scalp swelling. Impression: No acute intracranial hemorrhage, no evidence of acute territorial infarction or other acute intracranial disease process. ACT 112: Negative or not required by law. Electronically signed by: Luis Rajan M.D. 07/03/2023 8:24 AM Chest X-Ray 07/03/23 07:50 XR chest 1V portable CLINICAL HISTORY: trauma TECHNIQUE: Single frontal radiograph of the chest was obtained. Comparison: Comparison is made to chest radiograph 03/12/2023 FINDINGS: No lines and tubes are seen. Cardiomegaly is noted. Right lower lung atelectasis versus scarring, unchanged. Small right pleural effusion. IMPRESSION: Small right pleural effusion and right lung base atelectasis is again seen with or without superimposed aspiration/pneumonia. ACT 112: Negative or not required by law. Electronically signed by: Luis Rajan M.D. 07/03/2023 8:39 AM Abdomen/Pelvis CT 07/03/23 11:40 CT abd pelvis IV con only, CT lumbar spine w con CLINICAL HISTORY: trauma, hematuria TECHNIQUE: Helical axial images of the abdomen and pelvis were obtained and displayed. Automated dose lowering techniques and/or adjustment according to patient size were utilized for this exam. Dedicated images of the lumbar spine were obtained. This exam was performed with intravenous contrast. COMPARISON: Comparison is made to CT abdomen pelvis 10/20/[address] pelvis 01/12/2023 FINDINGS: Lower chest: Atelectasis is in the right lung base. Liver: Unremarkable. No focal lesions are seen. Gallbladder and biliary tree: Cholelithiasis is seen without evidence of cholecystitis. No intra- or extrahepatic biliary ductal dilation. Pancreas: Unremarkable, no focal lesions. Spleen: Calcifications are noted in the spleen compatible with prior granulomatous disease. Adrenals: Unremarkable. Kidneys and ureters: Renal cysts are seen. There is a 15 mm stone in the left collecting system and ureteral thickening at this level is unchanged from prior exam. Bladder: Diffuse homogeneous wall thickening is seen. Reproductive organs: Prostatomegaly is seen. Bowel: The appendix is normal. Lymph nodes Retroperitoneal: Unremarkable. Pelvic: Unremarkable. Mesenteric: Unremarkable. Peritoneum: Normal. Vessels: Atherosclerotic calcifications are seen. Abdominal wall: Umbilical hernia contains a small loop of bowel Bones: Degenerative changes in the visualized spine. S-shaped scoliosis is seen. IMPRESSION: Nonobstructive stones are seen with thickening of the left collecting system, similar to prior exam. Otherwise no acute abnormalities. No evidence of acute fracture. ACT 112: Negative or not required by law. Electronically signed by: Luis Rajan M.D. 07/03/2023 12:[address] 07/03/23 11:40 CT abd pelvis IV con only, CT lumbar spine w con CLINICAL HISTORY: trauma, hematuria TECHNIQUE: Helical axial images of the abdomen and pelvis were obtained and displayed. Automated dose lowering techniques and/or adjustment according to patient size were utilized for this exam. Dedicated images of the lumbar spine were obtained. This exam was performed with intravenous contrast. COMPARISON: Comparison is made to CT abdomen pelvis 10/20/[address] pelvis 01/12/2023 FINDINGS: Lower chest: Atelectasis is in the right lung base. Liver: Unremarkable. No focal lesions are seen. Gallbladder and biliary tree: Cholelithiasis is seen without evidence of cholecystitis. No intra- or extrahepatic biliary ductal dilation. Pancreas: Unremarkable, no focal lesions. Spleen: Calcifications are noted in the spleen compatible with prior granulomatous disease. Adrenals: Unremarkable. Kidneys and ureters: Renal cysts are seen. There is a 15 mm stone in the left collecting system and ureteral thickening at this level is unchanged from prior exam. Bladder: Diffuse homogeneous wall thickening is seen. Reproductive organs: Prostatomegaly is seen. Bowel: The appendix is normal. Lymph nodes Retroperitoneal: Unremarkable. Pelvic: Unremarkable. Mesenteric: Unremarkable. Peritoneum: Normal. Vessels: Atherosclerotic calcifications are seen. Abdominal wall: Umbilical hernia contains a small loop of bowel Bones: Degenerative changes in the visualized spine. S-shaped scoliosis is seen. IMPRESSION: Nonobstructive stones are seen with thickening of the left collecting system, similar to prior exam. Otherwise no acute abnormalities. No evidence of acute fracture. ACT 112: Negative or not required by law. Electronically signed by: Luis Rajan M.D. 07/03/2023 12:30 PM Discharge Plan Visit Data Chief Complaint: Fall Stated Complaint: FALL, WEAKNESS ED Provider: Anusha Vargas Discharge Problem: Generalized weakness, COPD (chronic obstructive pulmonary disease), Dizziness, Fall, Chronic hypoxic respiratory failure, on home oxygen therapy, Ambulatory dysfunction Forms Stand Alone Forms: [place] Prescriptions Prescriptions: No Action citalopram 40 mg Tablet 20 mg PO QAM clopidogrel [Plavix] 75 mg Tablet See Rx Instructions .ROUTE .COMPLEX Rx Instructions: never filled with pharmacy 07/03/23 nitroglycerin 0.4 mg Tablet, Sublingual 1 tab Sublingual UD PRN (Reason: Angina) Patient Comments: NEVER HAD TO USE Rx Instructions: never picked up NEEDED FOR CHEST PAIN : ONE TABLET UNDER THE TONGUE EVERY 5 MINUTES X THREE DOSES. acetaminophen 500 mg Tablet 1,000 mg PO Q6H PRN (Reason: Pain) Rx Instructions: otc unable to verify MAY TAKE A THIRD DOSE IN BETWEEN rosuvastatin 5 mg tablet 5 mg PO QAM levothyroxine 112 mcg tablet 112 mcg PO DAILYBB benzonatate 100 mg capsule 100 mg PO TID PRN (Reason: Cough) Rx Instructions: filled back in nov 2022 ipratropium-albuterol 20-100 mcg/actuation Mist 1 puff INHALATION QID Rx Instructions: unable to verify with pharmacy 07/03/23 space evenly during waking hours oxycodone 5 mg Tablet 5 mg PO Q8H PRN (Reason: pain) Qty: 10 0RF Rx Instructions: filled mar 13 2023 albuterol sulfate 90 mcg/actuation HFA aerosol inhaler 2 puff INHALATION Q6H PRN (Reason: Shortness Of Breath Or Wheezing) Rx Instructions: on hold at pharmacy. hasnt filled for some time montelukast [Singulair] 10 mg Tablet 10 mg PO QAM furosemide 20 mg tablet 40 mg PO QAM pantoprazole 20 mg tablet,delayed release (DR/EC) 20 mg PO DAILYBB duloxetine 30 mg capsule,delayed release(DR/EC) 60 mg PO QAM propranolol 20 mg Tablet 20 mg PO TID Qty: 90 0RF Saline Nasal (aloe vera) Gel 1 applic intranasal BID PRN (Reason: Dry Nasal Passages) Rx Instructions: otc unable to verify tamsulosin 0.4 mg capsule 0.4 mg PO HS Referrals Referrals: Jennifer Sarkar MD [Primary Care Provider] -
[2023-07-03] MEDS: SODIUM CHLORIDE 0.9% 500 ML IV SCH (08:05)
[2023-07-03 08:17] LABS: Basophils # (auto) 0.05 K/uL (0.00-0.20); Basophils % (auto) 0.5 %; Eosinophils # (auto) 0.02 K/uL (0.00-0.50); Eosinophils % (auto) 0.2 %; Hemoglobin 16.2 g/dl (14.0-18.0); Immature Granulocytes # (auto) 0.08 K/uL (0.01-0.20); Immature Granulocytes % (auto) 0.8 %; Lymphocytes # (auto) 1.07 K/uL (1.20-3.40); Lymphocytes % (auto) 10.2 %; Mean Corpuscular Hemoglobin 31.7 pg (25.0-34.0); Mean Corpuscular Hgb Conc 33.8 g/dL (32.0-36.0); Mean Corpuscular Volume 93.9 fL (80.0-100.0); Mean Platelet Volume 9.8 fL (9.4-12.4); Monocytes # (auto) 1.32 K/uL (0.11-0.59); Monocytes % (auto) 12.6 %; Neutrophils # (auto) 7.97 K/uL (1.40-6.50); Neutrophils % (auto) 75.7 %; Platelet Count 156 K/uL (130-400); RDW Coefficient of Variation 14.3 % (11.5-14.5); Red Blood Count 5.11 M/uL (4.70-6.10); White Blood Count 10.51 K/ul (4.8-10.8)
--- NOTE | 2023-07-03 08:25 | CT Scan Report ---
CT head/brain wo con CLINICAL HISTORY: trauma Technique: Contiguous axial CT images of the head were acquired from the base of the skull to the anai benigno without intravenous contrast administration. Images were viewed in brain, subdural and bone [facility]. Automated dose lowering techniques and/or adjustment according to patient size were utilized for this exam. Comparison: None available at the time of this dictation. Findings: Areas of decreased attenuation are present in the periventricular and subcortical white matter bilate rally consistent with small vessel ischemic disease. Generalized cerebral atrophy with commensurate e nlargement of the ventricles, sulci, and cisterns is also present. There is no acute intracranial hem orrhage or evidence of acute territorial infarction. No shift of the midline structures, mass effect, or extra-axial abnormalities are shown. Atherosclerotic calcifications are present in the intracran ial segments of the internal carotid arteries. Imaged portions of the paranasal sinuses and mastoid air cells are clear. The orbits appear normal. There are no acute fractures of the calvaria or scalp swelling. Impression: No acute intracranial hemorrhage, no evidence of acute territorial infarction or other acute intracra nial disease process. ACT 112: Negative or not required by law. Electronically signed by: Luis Rajan M.D. 07/03/2023 8:24 AM
--- NOTE | 2023-07-03 08:29 | CT Scan Report ---
CT cervical spine wo con CLINICAL HISTORY: trauma TECHNIQUE: Multidetector row helical CT of the cervical spine was performed without administration of intravenous contrast. Coronal and sagittal reformations were obtained. Automated dose lowering techn iques and/or adjustment according to patient size were utilized for this exam. Comparison: Comparison is made to CT cervical spine 12/07/2022 FINDINGS: No acute fractures or subluxations are identified. Degenerative changes are seen in the visualized sp ine. The alignment is normal. Soft tissues are unremarkable. IMPRESSION: Degenerative changes without evidence of acute bony injury. ACT 112: Negative or not required by law. Electronically signed by: Luis Rajan M.D. 07/03/2023 8:27 AM
[2023-07-03 08:35] LABS: Albumin Globulin Ratio 1.3 (0.9-2); Albumin Level 4.7 gm/dl (3.4-5.0); BUN Creatinine Ratio 12.4 (10-20); Bilirubin,Total 0.9 mg/dl (0.2-1.0); Calcium 10.2 mg/dl (8.6-10.3); Est GFR (African American) 84.5 ml/min; Est GFR (Non-African American) 72.9 ml/min; Globulin 3.5 gm/dl (2.5-4.0); Magnesium 1.9 mg/dl (1.7-2.4); Potassium 3.5 mmol/L (3.5-5.1); Total Protein 8.2 gm/dl (6.0-8.3)
--- NOTE | 2023-07-03 08:41 | XRay Report ---
XR chest 1V portable CLINICAL HISTORY: trauma TECHNIQUE: Single frontal radiograph of the chest was obtained. Comparison: Comparison is made to chest radiograph 03/12/2023 FINDINGS: No lines and tubes are seen. Cardiomegaly is noted. Right lower lung atelectasis versus scarring, unc hanged. Small right pleural effusion. IMPRESSION: Small right pleural effusion and right lung base atelectasis is again seen with or without superimpos ed aspiration/pneumonia. ACT 112: Negative or not required by law. Electronically signed by: Luis Rajan M.D. 07/03/2023 8:39 AM
[2023-07-03 08:42] LABS: Troponin I High Sensitivity 17.4 pg/ml (0-20)
[2023-07-03 08:51] LABS: Thyroid Stimulating Hormone 15.212 uIu/ml (0.300-4.500)
[2023-07-03 09:28] LABS: T4 Free Thyroxine 0.79 ng/dl (0.61-1.60)
[2023-07-03] MEDS: LIDOCAINE 5% 1 PATCH TD STA (11:26)
[2023-07-03 11:36] LABS: Appearance Urine Cloudy (Clear); Bacteria Urine Automated None Seen (None Seen); Bilirubin Urine Negative (Negative); Blood Urine 3+ (Negative); Cast Urine Automated 0-2 /lpf (0-2); Color Urine Dark Yellow; Glucose Urine UA Negative (Negative); Ketones Urine 1+ (Negative); Leukocyte Esterase Urine Trace (Negative); Nitrite Urine Negative (Negative); Protein Urine 2+ (Negative); RBC Urine Automated >20 /hpf (0-2); Specific Gravity Urine 1.018 (1.000-1.030); Urobilinogen Urine Negative (Negative); WBC Urine Automated 0-5 /hpf (0-5); pH Urine 5.5 (4.5-7.5)
[2023-07-03] MEDS: OPTIRAY 320 100ml IV ONE (11:53)
--- NOTE | 2023-07-03 12:32 | CT Scan Report ---
CT abd pelvis IV con only, CT lumbar spine w con CLINICAL HISTORY: trauma, hematuria TECHNIQUE: Helical axial images of the abdomen and pelvis were obtained and displayed. Automated dose lowering techniques and/or adjustment according to patient size were utilized for this exam. Dedicat ed images of the lumbar spine were obtained. This exam was performed with intravenous contrast. COMPARISON: Comparison is made to CT abdomen pelvis 10/20/[address] pelvis 01/12/2023 FINDINGS: Lower chest: Atelectasis is in the right lung base. Liver: Unremarkable. No focal lesions are seen. Gallbladder and biliary tree: Cholelithiasis is seen without evidence of cholecystitis. No intra- or extrahepatic biliary ductal dilation. Pancreas: Unremarkable, no focal lesions. Spleen: Calcifications are noted in the spleen compatible with prior granulomatous disease. Adrenals: Unremarkable. Kidneys and ureters: Renal cysts are seen. There is a 15 mm stone in the left collecting system and u reteral thickening at this level is unchanged from prior exam. Bladder: Diffuse homogeneous wall thickening is seen. Reproductive organs: Prostatomegaly is seen. Bowel: The appendix is normal. Lymph nodes Retroperitoneal: Unremarkable. Pelvic: Unremarkable. Mesenteric: Unremarkable. Peritoneum: Normal. Vessels: Atherosclerotic calcifications are seen. Abdominal wall: Umbilical hernia contains a small loop of bowel Bones: Degenerative changes in the visualized spine. S-shaped scoliosis is seen. IMPRESSION: Nonobstructive stones are seen with thickening of the left collecting system, similar to prior exam. Otherwise no acute abnormalities. No evidence of acute fracture. ACT 112: Negative or not required by law. Electronically signed by: Luis Rajan M.D. 07/03/2023 12:30 PM
--- NOTE | 2023-07-03 13:14 | History & Physical Report ---
Date of Service July 03, 2023 Assessment & Plan (1) Ambulatory dysfunction: (2) Generalized weakness: (3) Hematuria: (4) Spinal stenosis: (5) Chronic hypoxic respiratory failure, on home oxygen therapy: (6) Elevated hemidiaphragm: Plan Mr. Starks is an 82-year-old male with past medical significant for chronic respiratory failure with hypoxia on home oxygen, hypothyroidism, hyperlipidemia, history of hypercalcemia, granulomatous lung disease, sleep apnea, restrictive lung disease, elevated hemidiaphragm, history of cad s/p stent hypertension, chronic right-sided heart failure, Schatzki's ring of the distal esophagus, idiopathic scoliosis, osteoporosis, essential tremor, depression, abnormality of gait presents from home with fall. Patient is poor historian. Attempted to call daughter for further information, no success. 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 Previously evaluated by Ortho spine in 12/2022 for similar issues, not a surgical candidate fall precautions #Hematuria #Nephrolithiasis, nonobstructing #LUTS -Blood and RBC +, did not reflex to culture, low suspicion for infection, normal WBC -OP UA similar with hematuria noted, OP urology in 07/2023 -Bladder: Diffuse homogeneous wall thickening is seen Consult Urology #Elevated CK Cr stable at this time Trend CMP and CK in am Hold lasix at this time IVF gentle at 80 stop at 2L #Hypothyroidism Synthroid TSH 15, with low normal FT4; unable to get a clear sense of if he takes this medications appropriately; recently dose reduced given too tight control with TSH 0.2 Repeat OP tfts, ensure proper education of timing #Dysphagia history #Schatzki's ring Prior HH requesting speech referral Speech eval Aspiration precautions, soft diet sized #Depression #Radiculopathy -Recently Cymbalta dose increased from 30 to 60mg daily (06/21) will continue at 30mg daily in case contributing confusion/"falls" Continue citalopram #Obstructive CAD s/p acute thrombotic LAD s/p bare metal stent, September 2008 #Chronic right heart failure iso untreated EZEQUIEL 08/06/22: ECHO-LVEF normal 59% with a small-sized apical wall motion abnormality. Aortic sclerosis without stenosis. Mild MR. RV normal in size and function. -appears relatively dry Hold lasix at this time #Chronic hypoxic resp failure, on home O2 (prescribed 2L at rest, 4L exertion; 4L nocturnal) #Granulomatous lung disease #Asthma #Severe EZEQUIEL #Chronically elevated right hemidiaphragm spirometry in 2021, restrictive, moderate reduction in DLCO -VBG consistent with prior draws--compensated on cmp -Continue nocturnal O2 and O2 with exertion -Declines NIV -Continue combivent #Frequent ventricular ectopy propanolol TID (initially prescribed for tremor) monitor on tele #Hyperlipidemia. Hold Crestor iso CK elevation #Essential tremor Last followed neuro in 2018 propanolol #Bilateral rotator cuff tears left worse than right, s/p steroid injections 03/2023 PT/OT Patient was not in appropriate state to discuss code status. Readdress this issue at later time. DVT ppx heparin sq Admit med tele Admission and Anticipated Discharge Date Admission Date: Time spent evaluating patient, direct bedside care, chart review, placing orders, interpretation of diagnostic studies, discussion with consultants, patient, and family members, as well as other required patient management activities is 60 minutes. History of Present Illness Chief Complaint: Fall, inability to stand Primary Care Provider: Jennifer Sarkar MD Mr. Starks is an 82-year-old male with past medical significant for chronic respiratory failure with hypoxia on home oxygen, hypothyroidism, hyperlipidemia, history of hypercalcemia, granulomatous lung disease, sleep apnea, restrictive lung disease, elevated hemidiaphragm, history of cad s/p stent hypertension, chronic right-sided heart failure, Schatzki's ring of the distal esophagus, idiopathic scoliosis, osteoporosis, essential tremor, depression, abnormality of gait presented to [facility] ED due to fall. Patient is adamant that it was not a fall, but rather a slow decent to the ground in which he could not stand. He states that he was on the ground for approximately six hours attempting to stand until deciding to call EMS. He denies loss of consciousness, chest pain, palpitations, or other symptoms. He currently lives alone and has neighbors who check in on him periodically. His daughter is out of state and per OP records is attempting to coordinate assisted living. Patient denies any acute concerns, reports feeling exhausted because he didn't sleep well after being on the ground. He states he manages his own prescriptions, but is poor historian falling asleep mid exam. Patient focused on left shoulder pain, for which he received steroid injections 03/2023. Patient denies any respiratory concerns. History of admission in 12/2022 for fall with discharge to [facility] home health thereafter. Home health services discontinued 04/2023. In the ED, vitals were notable for BP of 120-130s HR of high 50s-60s, and O2 sat of high 90s on 3L Imaging revealed CTH without hemorrhage, stable C spine, stable CXR read independently with stable right hemidiaphragm elevation and atelectasis/scarring as compared to prior (stable); bladder wallthickening Labs with CK 539, bnp 77, TSH 15.212, Free T4 0.79, UA RBC and blood++ no bacteria no relflex to culture EKG NSR, QtC 402 ED interventions: NS, lidocaine patch Patient to be admitted to [facility] for further evaluation and management of ambulatory dysfunction, weakness, and hematuria. Allergies Allergy/AdvReac Type Severity Reaction Status Date / Time tramadol AdvReac Intermediate Hallucinati Verified 03/12/23 02:38 ng grapefruit AdvReac Unknown WAS TOLD Verified 03/12/23 02:38 NOT TO TAKE BECAUSE OF CHOLESTROL PILL. Home Medications Medication Instructions Recorded Confirmed Type citalopram 40 mg tablet 20 mg PO QAM 03/14/18 07/03/23 History clopidogrel 75 mg tablet (Plavix) See Rx Instructions .Route .COMPLEX 03/14/18 07/03/23 History nitroglycerin 0.4 mg sublingual 1 tab sublingual UD PRN Angina 03/14/18 07/03/23 History tablet acetaminophen 500 mg tablet 1,000 mg PO Q6H PRN Pain 07/03/21 07/03/23 History rosuvastatin 5 mg tablet 5 mg PO QAM 07/03/21 07/03/23 History albuterol sulfate 90 mcg/actuation 2 puff inhalation Q6H PRN 10/14/22 07/03/23 History aerosol inhaler Shortness Of Breath Or Wheezing duloxetine 30 mg capsule,delayed 60 mg PO QAM Pain 10/14/22 07/03/23 History release furosemide 20 mg tablet 40 mg PO QAM 10/14/22 07/03/23 History montelukast 10 mg tablet 10 mg PO QAM 10/14/22 07/03/23 History (Singulair) pantoprazole 20 mg tablet,delayed 20 mg PO DAILYBB 10/14/22 07/03/23 History release propranolol 20 mg tablet 20 mg PO TID #90 tabs 11/13/22 07/03/23 Rx levothyroxine 112 mcg tablet 112 mcg PO DAILYBB 12/07/22 07/03/23 History benzonatate 100 mg capsule 100 mg PO TID PRN Cough 01/02/23 07/03/23 History ipratropium 20 mcg-albuterol 100 1 puff inhalation QID 01/02/23 07/03/23 History mcg/actuation mist for inhalation oxycodone 5 mg tablet 5 mg PO Q8H PRN pain #10 tabs 01/09/23 07/03/23 Rx sodium chloride-aloe vera nasal 1 applic intranasal BID PRN Dry 03/12/23 07/03/23 History gel (Saline Nasal (aloe vera) gel) Nasal Passages tamsulosin 0.4 mg capsule 0.4 mg PO HS 07/03/23 07/03/23 History Past Med/Surg History Medical History Fall Acute and chronic respiratory failure Restrictive lung disease Acute on chronic respiratory failure with hypoxemia Acute and chronic respiratory failure with hypercapnia Pulmonary embolism COVID-19 Choking REASON FOR UPCOMING PROCEDURE PER PT Ankle swelling PT PLANS TO DISCUSS WITH PT REPORTS DR HAD HIM STOP FLUID PILL AND NOT SURE WHY Infected dental caries Subperiosteal abscess of jaw Acute periodontal abscess Pain, dental Generalized muscle weakness Lower urinary tract symptoms (LUTS) Hypoxia DVT prophylaxis Chronic right-sided heart failure Fall HX, NOT RECENTLY Cervical spine fracture LAST SUMMER NO LIMITATIONS SOB (shortness of breath) on exertion with wheezing Scoliosis Chronic back pain Kidney stones ONE PRESENT/NO PROBLEMS WITH GERD (gastroesophageal reflux disease) Hypothyroidism On anticoagulant therapy plavix daily Tinnitus of both ears Depression Familial tremor reason for propranolol Hypertension Hyperlipidemia Myocardial Infarction 2009 Sleep apnea uses 4 L N/C MOSTLY ALL THE TIME On home oxygen therapy 3-4 L CONTINUOUS MOSTLY, AND PRN PER PT Chronic obstructive pulmonary disease COPD (chronic obstructive pulmonary disease) Scoliosis Dyslipidemia HTN (hypertension) Hypothyroidism CAD (coronary artery disease) Surgical History Hx of oral surgery (07/05/21) Multiple Teeth Extractions for Facial Infection - Sin Chacko, DMD NO CURRENT INFECTION PER PT (PAT CALL 08/18/21) History of testicular surgery "sac full of blood in testicle drained at 26 yrs old" History of heart artery stent x1 2009--[facility] [place] History of open reduction and internal fixation (ORIF) procedure left foot fx/pinky toe fx--hardware in place History of lithotripsy Hx of vasectomy Hx of right inguinal hernia repair History of colonoscopy History of esophagogastroduodenoscopy (EGD) History of wisdom tooth extraction History of tonsillectomy History of bilateral cataract extraction History of cardiac cath 2010 @ [facility] [place] with 1 stent--follows with Dr. Ramirez Stented coronary artery "bare metal stent to LAD 2008" Family History Sister Family history of reaction to anesthesia nausea/vomiting Mother Family history of diabetes mellitus Social History Smoking Status: Never smoker Tobacco Type: Cigarettes Cigarettes Per Day: SMOKED PIPE/CIGAR AGE 21'S; Second Hand Exposure: No; Do You Dip or Chew Tobacco: No; Hx Alcohol Use: No Hx Substance Use: No Preferred Language: Turkish Communication Ability: Effective Communication Tools: Other Visual Impairment: No Limitations Donor Floor Technician Required: No Beliefs That Will Affect Care: None marital status: Current Living Situation: Alone Current Living Situation Comment: DOG How many Children do You have: 1 Feels Safe at Home: Yes Assistive Devices: Cane, Oxygen - Continuous and Walker Review of Systems Review of Systems: Constitutional: (-) fever/chills, (-) recent loss of weight, (-) appetite changes, (-) night sweats. Head: (-) headache, (-) dizziness. Eye: (-) blurring of vision, (-) double vision, (-) redness. Ear: (-) hearing loss, (-) discharge, (-) vertigo Nose: (-) discharge, (-) bleeding, (-) congestion, (-) post nasal drip. Throat: (-) sore throat, (-) hoarseness of voice, (-) odynophagia. Cardiovascular: (-) chest pain, (-) palpitations, (-) syncope, (-) orthopnea Respiratory: (-) shortness of breath, (-) cough, (-) wheezing, (-) hemoptysis. Neuro: (++) weakness in extremities, (-) numbness, (-) tingling, (-) tremor. Gastrointestinal: (-) belly pain, (-) belly distension, (-) nausea, (-) vomiting, (-) diarrhea, (-) constipation= Genitourinary: (-) hematuria, (-) dysuria, (-) polyuria, (-) hesitancy, (-) frequency, (-) urinary incontinence. Musculoskeletal: (-) myalgia, (-) arthralgia. Skin: (-) rashes. Endocrine: (-) heat/cold intolerance. Physical Exam Physical Exam: GENERAL APPEARANCE: AxOx1-2 frail older man, conversational and pleasant, falls asleep mid conversation , no acute distress. HEENT: NC, AT. MMM. EOMI, clear conjunctiva, oropharynx clear. NECK: Supple without lymphadenopathy. No stiffness or restricted ROM. HEART: Normal rate and regular rhythm, normal S1/S1, no m/r/g LUNGS: CTAB, moving air well. No crackles or wheezes are heard. ABDOMEN: Soft, nontender, nondistended with good bowel sounds heard. EXTREMITIES: Without cyanosis, clubbing or edema. NEUROLOGICAL: Grossly nonfocal. Alert and oriented to self and "hospital" , moving all 4 extremities. strength 4/5 upper, 3/5 lower extremities, CN not formally tested but appear grossly intact Skin: Warm and dry without any rash. Results & Data Results & Data Vital Signs (Past 12 Hours) Vital Signs Pulse Pulse Resp BP BP Pulse Ox O2 Del Method 07/03/23 12:42 59 L 20 133/71 98 Room Air 07/03/23 12:35 58 L 07/03/23 11:07 60 20 123/75 98 Nasal Cannula 07/03/23 10:12 60 20 123/75 97 Nasal Cannula 07/03/23 08:28 60 07/03/23 07:49 61 20 136/89 94 Nasal Cannula 07/03/23 07:49 60 23 136/89 92 Nasal Cannula O2 Flow Rate 07/03/23 12:42 07/03/23 12:35 07/03/23 11:07 3 07/03/23 10:12 3 07/03/23 08:28 07/03/23 07:49 3 07/03/23 07:49 3 Laboratory Results Short CBC 07/03/23 Range/Units 08:04 WBC 10.51 (4.8-10.8) K/ul Hgb 16.2 (14.0-18.0) g/dl Hct 48.0 (42.0-52.0) % Plt Count 156 (130-400) K/uL BMP 07/03/23 08:04 Sodium 138 Potassium 3.5 Chloride 95 L Carbon Dioxide 34 H BUN 12 Creatinine 0.97 Glucose 117 H Calcium 10.2 Cardiac Enzymes 07/03/23 Range/Units 08:04 Total Creatine Kinase 539 H (30-223) U/L Liver Function 07/03/23 Range/Units 08:04 Total Bilirubin 0.9 (0.2-1.0) mg/dl AST 28 (13-39) U/L ALT 15 (7-52) U/L Alkaline Phosphatase 109 H (34-104) U/L Albumin 4.7 (3.4-5.0) gm/dl Urine 07/03/23 Range/Units 11:05 Urine Color Dark Yellow Urine Appearance Cloudy A (Clear) Urine pH 5.5 (4.5-7.5) Ur Specific [place] 1.018 (1.000-1.030) Urine Protein 2+ H (Negative) Urine Glucose (UA) Negative (Negative) Diagnostic Findings Cervical Spine CT 07/03/23 07:49 CT cervical spine wo con CLINICAL HISTORY: trauma TECHNIQUE: Multidetector row helical CT of the cervical spine was performed without administration of intravenous contrast. Coronal and sagittal reformat ions were obtained. Automated dose lowering techniques and/or adjustment according to patient size were utilized for this exam. Comparison: Comparison is made to CT cervical spine 12/07/2022 FINDINGS: No acute fractures or subluxations are identified. Degenerative changes are seen in the visualized spine. The alignment is normal. Soft tissues are unremarkable. IMPRESSION: Degenerative changes without evidence of acute bony injury. ACT 112: Negative or not required by law. Electronically signed by: Luis Rajan M.D. 07/03/2023 8:[address] 07/03/23 07:49 CT head/brain wo con CLINICAL HISTORY: trauma Technique: Contiguous axial CT images of the head were acquired from the base of the skull to the vertex without intravenous contrast administration. Images were viewed in brain, subdural and bone windows. Automated dose lowering techniques and/or adjustment according to patient size were utilized for this exam. Comparison: None available at the time of this dictation. Findings: Areas of decreased attenuation are present in the periventricular and subcortical white matter bilaterally consistent with small vessel ischemic dis ease. Generalized cerebral atrophy with commensurate enlargement of the ventricles, sulci, and cisterns is also present. There is no acute intracranial hemorrhage or evidence of acute territorial infarction. No shift of the midline structures, mass effect, or extra-axial abnormalities are shown. Atherosclerotic calcifications are present in the intracranial segments of the internal carotid arteries. Imaged portions of the paranasal sinuses and mastoid air cells are clear. The orbits appear normal. There are no acute fractures of the calvaria or scalp swelling. Impression: No acute intracranial hemorrhage, no evidence of acute territorial infarction or other acute intracranial disease process. ACT 112: Negative or not required by law. Electronically signed by: Luis Rajan M.D. 07/03/2023 8:24 AM Chest X-Ray 07/03/23 07:50 XR chest 1V portable CLINICAL HISTORY: trauma TECHNIQUE: Single frontal radiograph of the chest was obtained. Comparison: Comparison is made to chest radiograph 03/12/2023 FINDINGS: No lines and tubes are seen. Cardiomegaly is noted. Right lower lung atelectasis versus scarring, unchanged. Small right pleural effusion. IMPRESSION: Small right pleural effusion and right lung base atelectasis is again seen with or without superimposed aspiration/pneumonia. ACT 112: Negative or not required by law. Electronically signed by: Luis Rajan M.D. 07/03/2023 8:39 AM Abdomen/Pelvis CT 07/03/23 11:40 CT abd pelvis IV con only, CT lumbar spine w con CLINICAL HISTORY: trauma, hematuria TECHNIQUE: Helical axial images of the abdomen and pelvis were obtained and displayed. Automated dose lowering techniques and/or adjustment according to patient size were utilized for this exam. Dedicated images of the lumbar spine were obtained. This exam was performed with intravenous contrast. COMPARISON: Comparison is made to CT abdomen pelvis 10/20/[address] pelvis 12/23 FINDINGS: Lower chest: Atelectasis is in the right lung base. Liver: Unremarkable. No focal lesions are seen. Gallbladder and biliary tree: Cholelithiasis is seen without evidence of cholecystitis. No intra- or extrahepatic biliary ductal dilation. Pancreas: Unremarkable, no focal lesions. Spleen: Calcifications are noted in the spleen compatible with prior granulomatous disease. Adrenals: Unremarkable. Kidneys and ureters: Renal cysts are seen. There is a 15 mm stone in the left collecting system and ureteral thickening at this level is unchanged from prior exam. Bladder: Diffuse homogeneous wall thickening is seen. Reproductive organs: Prostatomegaly is seen. Bowel: The appendix is normal. Lymph nodes Retroperitoneal: Unremarkable. Pelvic: Unremarkable. Mesenteric: Unremarkable. Peritoneum: Normal. Vessels: Atherosclerotic calcifications are seen. Abdominal wall: Umbilical hernia contains a small loop of bowel Bones: Degenerative changes in the visualized spine. S-shaped scoliosis is seen. IMPRESSION: Nonobstructive stones are seen with thickening of the left collecting system, similar to prior exam. Otherwise no acute abnormalities. No evidence of acute fracture. ACT 112: Negative or not required by law. Electronically signed by: Luis Rajan M.D. 07/03/2023 12:[address] 07/03/23 11:40 CT abd pelvis IV con only, CT lumbar spine w con CLINICAL HISTORY: trauma, hematuria TECHNIQUE: Helical axial images of the abdomen and pelvis were obtained and displayed. Automated dose lowering techniques and/or adjustment according to patient size were utilized for this exam. Dedicated images of the lumbar spine were obtained. This exam was performed with intravenous contrast. COMPARISON: Comparison is made to CT abdomen pelvis 10/20/[address] pelvis 01/12/2023 FINDINGS: Lower chest: Atelectasis is in the right lung base. Liver: Unremarkable. No focal lesions are seen. Gallbladder and biliary tree: Cholelithiasis is seen without evidence of cholecystitis. No intra- or extrahepatic biliary ductal dilation. Pancreas: Unremarkable, no focal lesions. Spleen: Calcifications are noted in the spleen compatible with prior granulomatous disease. Adrenals: Unremarkable. Kidneys and ureters: Renal cysts are seen. There is a 15 mm stone in the left collecting system and ureteral thickening at this level is unchanged from prior exam. Bladder: Diffuse homogeneous wall thickening is seen. Reproductive organs: Prostatomegaly is seen. Bowel: The appendix is normal. Lymph nodes Retroperitoneal: Unremarkable. Pelvic: Unremarkable. Mesenteric: Unremarkable. Peritoneum: Normal. Vessels: Atherosclerotic calcifications are seen. Abdominal wall: Umbilical hernia contains a small loop of bowel Bones: Degenerative changes in the visualized spine. S-shaped scoliosis is seen. IMPRESSION: Nonobstructive stones are seen with thickening of the left collecting system, similar to prior exam. Otherwise no acute abnormalities. No evidence of acute fracture. ACT 112: Negative or not required by law. Electronically signed by: Luis Rajan M.D. 07/03/2023 12:30 PM Medications Administered Home Medications Medication Instructions Recorded Confirmed Last Taken citalopram 40 mg tablet 20 mg PO QAM 03/14/18 07/03/23 03/11/23 clopidogrel 75 mg tablet (Plavix) See Rx Instructions .Route .COMPLEX 03/14/18 07/03/23 03/11/23 nitroglycerin 0.4 mg sublingual 1 tab sublingual UD PRN Angina 03/14/18 07/03/23 Unknown tablet acetaminophen 500 mg tablet 1,000 mg PO Q6H PRN Pain 07/03/21 07/03/23 03/11/23 rosuvastatin 5 mg tablet 5 mg PO QAM 07/03/21 07/03/23 03/11/23 albuterol sulfate 90 mcg/actuation 2 puff inhalation Q6H PRN 10/14/22 07/03/23 Unknown aerosol inhaler Shortness Of Breath Or Wheezing duloxetine 30 mg capsule,delayed 60 mg PO QAM Pain 10/14/22 07/03/23 03/10/23 release furosemide 20 mg tablet 40 mg PO QAM 10/14/22 07/03/23 03/11/23 montelukast 10 mg tablet 10 mg PO QAM 10/14/22 07/03/23 03/11/23 (Singulair) pantoprazole 20 mg tablet,delayed 20 mg PO DAILYBB 10/14/22 07/03/23 03/11/23 release propranolol 20 mg tablet 20 mg PO TID #90 tabs 11/13/22 07/03/23 03/11/23 12:00 levothyroxine 112 mcg tablet 112 mcg PO DAILYBB 12/07/22 07/03/23 03/11/23 benzonatate 100 mg capsule 100 mg PO TID PRN Cough 01/02/23 07/03/23 Unknown ipratropium 20 mcg-albuterol 100 1 puff inhalation QID 01/02/23 07/03/23 03/11/23 mcg/actuation mist for inhalation oxycodone 5 mg tablet 5 mg PO Q8H PRN pain #10 tabs 01/09/23 07/03/23 Unknown sodium chloride-aloe vera nasal 1 applic intranasal BID PRN Dry 03/12/23 07/03/23 Unknown gel (Saline Nasal (aloe vera) gel) Nasal Passages tamsulosin 0.4 mg capsule 0.4 mg PO HS 07/03/23 07/03/23 Unknown Active Medications Generic Name Dose Route Start Last Admin Trade Name Freq PRN Reason Stop Dose Admin Sodium Chloride 500 mls @ 80 mls/hr 07/03/23 08:00 07/03/23 13:36 Nss IV 08/02/23 07:59 80 mls/hr .Q6H15M SAHIL Administration
[2023-07-03 14:45] LABS: Base Excess VBG 6.7 mEq/L; HCO3 VBG 34 mmol/L; Oxygen Saturation VBG 79.3 %; PCO2 VBG 59 mmHg (38-50); PO2 VBG 48 mmHg; pH VBG 7.37 (7.36-7.41)
[2023-07-03 15:09] LABS: BUN Creatinine Ratio 14.6 (10-20); Calcium 9.4 mg/dl (8.6-10.3); Creatinine Clr Calc Pharmacy 61.5 ml/min; Est GFR (African American) 96.1 ml/min; Est GFR (Non-African American) 82.9 ml/min; Potassium 3.7 mmol/L (3.5-5.1)
[2023-07-03] MEDS ORDERED: ALBUTEROL HFA 8 GM INHALER INH PRN (17:30)
[2023-07-03] MEDS ORDERED: NITROGLYCERIN SL 0.4 MG/TAB TAB SL PRN (17:30)
[2023-07-03] MEDS ORDERED: BENZONATATE 100 MG CAPSULE PO PRN (17:30)
[2023-07-03] MEDS ORDERED: IPRATROPIUM BROMIDE/ALBUTEROL respimat INH INH SCH (17:30)
[2023-07-03] MEDS ORDERED: ARTIFICIAL TEARS OP PRN (17:42)
[2023-07-03] MEDS ORDERED: SODIUM CHLORIDE 0.65% NA SOLN 45 ML (OCEAN) PRN (17:47)
[2023-07-03] MEDS: HEPARIN SOD 5,000 UNIT/0.5 ML VIAL SQ SCH (18:20)
[2023-07-03] MEDS ORDERED: Albuterol HFA 8 GM Inhaler (Combivent Respimat P&T Subs) INH SCH (19:00)
[2023-07-03] MEDS ORDERED: Ipratropium HFA Inhaler (Combivent Respimat P&T Subs) INH SCH (19:00)
[2023-07-03] MEDS: TAMSULOSIN HCL 0.4 MG CAP PO SCH (19:48)
[2023-07-03] MEDS: PROPRANOLOL HCL 20 MG TAB PO SCH (19:48)
[2023-07-03] MEDS: Ipratropium HFA Inhaler (Combivent Respimat P&T Subs) INH SCH (20:33)
[2023-07-03] MEDS: Albuterol HFA 8 GM Inhaler (Combivent Respimat P&T Subs) INH SCH (20:34)
[2023-07-03] MEDS: ACETAMINOPHEN 500 MG TAB PO PRN (23:15)
[2023-07-04] MEDS: LEVOTHYROXINE SODIUM 112 MCG TABLET PO SCH (05:34)
[2023-07-04] MEDS: PANTOprazole 40 MG TAB PO SCH (05:34)
[2023-07-04 06:29] LABS: Hematocrit (blood only) 42.1 % (42.0-52.0); Hemoglobin 14.1 g/dl (14.0-18.0); Mean Corpuscular Hemoglobin 31.5 pg (25.0-34.0); Mean Corpuscular Hgb Conc 33.5 g/dL (32.0-36.0); Mean Corpuscular Volume 94.2 fL (80.0-100.0); Platelet Count 130 K/uL (130-400); RDW Coefficient of Variation 14.4 % (11.5-14.5); RDW Standard Deviation 49.7 fL (36.4-46.3); Red Blood Count 4.47 M/uL (4.70-6.10); White Blood Count 6.91 K/ul (4.8-10.8)
[2023-07-04 07:09] LABS: Albumin Globulin Ratio 1.3 (0.9-2); Albumin Level 3.6 gm/dl (3.4-5.0); BUN Creatinine Ratio 15.2 (10-20); Bilirubin,Total 0.6 mg/dl (0.2-1.0); Est GFR (African American) 97.6 ml/min; Est GFR (Non-African American) 84.2 ml/min; Globulin 2.8 gm/dl (2.5-4.0); Magnesium 1.9 mg/dl (1.7-2.4); Potassium 3.3 mmol/L (3.5-5.1); Total Protein 6.4 gm/dl (6.0-8.3)
[2023-07-04] MEDS: CITALOPRAM 20 MG TAB PO SCH (07:59)
[2023-07-04] MEDS: MONTELUKAST SODIUM 10 MG TABLET PO SCH (08:00)
[2023-07-04] MEDS: CLOPIDOGREL BISULFATE 75 MG TAB PO SCH (08:00)
[2023-07-04] MEDS: DULoxetine HCL 30 MG CAP PO SCH (08:00)
--- NOTE | 2023-07-04 08:18 | Urology Consultation ---
Date of Consultation July 04, 2023 Assessment & Plan (1) Hematuria: (2) Kidney stones: Plan 82yo/M admitted for management of ambulatory dysfunction, weakness, and hematuria. Urology consulted for hematuria and bladder wall thickening We reviewed his CT imaging, specifically that there is a 15mm nonobstructing stone in the left collecting system and ureteral thickening at this level is unchanged from prior exam, nonobstructing right nephrolithiasis, diffuse bladder wall thickening, and prostatomegaly also noted. He is afebrile and hemodynamically stable. Labs show no leukocytosis and normal renal function. Urinalysis on admission notable for 3+ blood, > 20 RBC. No plan for acute intervention. He denies gross hematuria, fever, or flank pain. He is voiding spontaneously. Would recommend continued monitoring and can bladder scan as needed. Continue tamsulosin. He does endorse some mild dysuria with voiding. Would recommend checking a urine culture and treating if indicated. Will arrange outpatient follow-up for discussion of stone management and microscopic hematuria workup. Urology will sign off. Please call with any further questions, concerns, or changes in patient status. History of Present Illness Attending Physician: David Moon MD History of Present Illness 82-year-old male with past medical significant for chronic respiratory failure with hypoxia, hypothyroidism, hyperlipidemia, history of hypercalcemia, granulomatous lung disease, sleep apnea, restrictive lung disease, elevated hemidiaphragm, history of cad s/p stent hypertension, chronic right-sided heart failure, Schatzki's ring of the distal esophagus, idiopathic scoliosis, osteoporosis, essential tremor, depression, abnormality of gait admitted after a fall at home with generalized weakness and ambulatory dysfunction. Patient admitted to [facility] for further evaluation and management of ambulatory dysfunction, weakness, and hematuria. Urology was consulted for hematuria and bladder wall thickening In the ED, he was afebrile and hemodynamically stable. Labs showing no leukocytosis and normal renal function Urinalysis (07/03/2023) showing 3+ blood, >20RBC, trace LE, negative bacteria, negative nitrite CT abdomen pelvis- Nonobstructive stones are seen with thickening of the left collecting system, similar to prior exam. Otherwise no acute abnormalities. Patient was seen at bedside this AM. Awake, sitting in bedside chair on arrival. No acute distress. He denies gross hematuria. Reports some dysuria. Voiding spontaneously. Notes some urinary hesitancy and frequency. Feels he is emptying well for the most part. Stream ok. Denies flank pain. Report chronic back pain. Denies f/c/n/v. Patient reports a known history of nephrolithiasis with prior intervention. Was seen by urology several years ago (unsure of exact details). Denies prior history of malignancy. Pt reports he does not currently follow with a urologist. Allergies Allergy/AdvReac Type Severity Reaction Status Date / Time tramadol AdvReac Intermediate Hallucinati Verified 03/12/23 02:38 ng grapefruit AdvReac Unknown WAS TOLD Verified 03/12/23 02:38 NOT TO TAKE BECAUSE OF CHOLESTROL PILL. Home Medications Medication Instructions Recorded Confirmed Type citalopram 40 mg tablet 20 mg PO QAM 03/14/18 07/03/23 History clopidogrel 75 mg tablet (Plavix) See Rx Instructions .Route .COMPLEX 03/14/18 07/03/23 History nitroglycerin 0.4 mg sublingual 1 tab sublingual UD PRN Angina 03/14/18 07/03/23 History tablet acetaminophen 500 mg tablet 1,000 mg PO Q6H PRN Pain 07/03/21 07/03/23 History rosuvastatin 5 mg tablet 5 mg PO QAM 07/03/21 07/03/23 History albuterol sulfate 90 mcg/actuation 2 puff inhalation Q6H PRN 10/14/22 07/03/23 History aerosol inhaler Shortness Of Breath Or Wheezing duloxetine 30 mg capsule,delayed 60 mg PO QAM Pain 10/14/22 07/03/23 History release furosemide 20 mg tablet 40 mg PO QAM 10/14/22 07/03/23 History montelukast 10 mg tablet 10 mg PO QAM 10/14/22 07/03/23 History (Singulair) pantoprazole 20 mg tablet,delayed 20 mg PO DAILYBB 10/14/22 07/03/23 History release propranolol 20 mg tablet 20 mg PO TID #90 tabs 11/13/22 07/03/23 Rx levothyroxine 112 mcg tablet 112 mcg PO DAILYBB 12/07/22 07/03/23 History benzonatate 100 mg capsule 100 mg PO TID PRN Cough 01/02/23 07/03/23 History ipratropium 20 mcg-albuterol 100 1 puff inhalation QID 01/02/23 07/03/23 History mcg/actuation mist for inhalation oxycodone 5 mg tablet 5 mg PO Q8H PRN pain #10 tabs 01/09/23 07/03/23 Rx sodium chloride-aloe vera nasal 1 applic intranasal BID PRN Dry 03/12/23 07/03/23 History gel (Saline Nasal (aloe vera) gel) Nasal Passages tamsulosin 0.4 mg capsule 0.4 mg PO HS 07/03/23 07/03/23 History Patient History Medical History (Updated 07/04/23 @ 14:42 by ALFONSO Sky) Fall Acute and chronic respiratory failure Restrictive lung disease Acute on chronic respiratory failure with hypoxemia Acute and chronic respiratory failure with hypercapnia Pulmonary embolism COVID-19 Choking REASON FOR UPCOMING PROCEDURE PER PT Ankle swelling PT PLANS TO DISCUSS WITH DR PT REPORTS DR HAD HIM STOP FLUID PILL AND NOT SURE WHY Infected dental caries Subperiosteal abscess of jaw Acute periodontal abscess Pain, dental Generalized muscle weakness Lower urinary tract symptoms (LUTS) Hypoxia DVT prophylaxis Chronic right-sided heart failure Fall HX, NOT RECENTLY Cervical spine fracture LAST SUMMER NO LIMITATIONS SOB (shortness of breath) on exertion with wheezing Scoliosis Chronic back pain Kidney stones ONE PRESENT/NO PROBLEMS WITH GERD (gastroesophageal reflux disease) Hypothyroidism On anticoagulant therapy plavix daily Tinnitus of both ears Depression Familial tremor reason for propranolol Hypertension Hyperlipidemia Myocardial Infarction 2009 Sleep apnea uses 4 L N/C MOSTLY ALL THE TIME On home oxygen therapy 3-4 L CONTINUOUS MOSTLY, AND PRN PER PT Chronic obstructive pulmonary disease COPD (chronic obstructive pulmonary disease) Scoliosis Dyslipidemia HTN (hypertension) Hypothyroidism CAD (coronary artery disease) Surgical History Hx of oral surgery (07/05/21) Multiple Teeth Extractions for Facial Infection - Sin Chacko, EMERALD NO CURRENT INFECTION PER PT (PAT CALL 08/18/21) History of testicular surgery "sac full of blood in testicle drained at 26 yrs old" History of heart artery stent x1 2009--[facility] [place] History of open reduction and internal fixation (ORIF) procedure left foot fx/pinky toe fx--hardware in place History of lithotripsy Hx of vasectomy Hx of right inguinal hernia repair History of colonoscopy History of esophagogastroduodenoscopy (EGD) History of wisdom tooth extraction History of tonsillectomy History of bilateral cataract extraction History of cardiac cath 2009 @ [facility] [place] with 1 stent--follows with Dr. Ramirez Stented coronary artery "bare metal stent to LAD 2008" Family History Sister Family history of reaction to anesthesia nausea/vomiting Mother Family history of diabetes mellitus Social History Smoking Status: Former smoker Tobacco Type: Pipe Cigarettes Per Day: SMOKED PIPE/CIGAR AGE 20'S; Second Hand Exposure: No; Do You Dip or Chew Tobacco: No; Tobacco Cessation Education Requested by Patient: No Hx Alcohol Use: Yes Alcohol type: beer Hx Substance Use: No Preferred Language: Togolese Communication Ability: Effective Communication Tools: Other Visual Impairment: No Limitations [employer] Worker Required: No Beliefs That Will Affect Care: None marital status: Current Living Situation: Alone Current Living Situation Comment: DOG How many Children do You have: 1 Other Information That Helps Us Care for You: No Feels Safe at Home: Yes Safety Concerns: Feels Safe At This Time Assistive Devices: Cane and Walker Review of Systems Review of Systems: All systems reviewed & are unremarkable except as noted in HPI & below Physical Exam Constitutional: no acute distress Forgetful Neck: normal visual inspection Respiratory: no respiratory distress and no labored breathing Musculoskeletal: Head/Neck/Chest: normocephalic Skin: No visible rashes or lesions to exposed skin areas Neurologic: moves all extremities and awake Psychiatric: A+Ox3, euthymic affect Results & Data Vital Signs (Past 12 Hours) Vital Signs Temp Pulse Pulse Resp BP BP Pulse Ox 07/04/23 07:42 60 16 93 07/04/23 07:41 36.4 C L 56 L 20 114/73 94 07/04/23 03:08 36.5 C 57 L 18 104/65 92 07/03/23 22:04 62 07/03/23 22:02 36.9 C 61 18 121/84 92 07/03/23 20:35 66 18 97 O2 Del Method O2 Flow Rate 07/04/23 07:42 Nasal Cannula 4 07/04/23 07:41 Room Air 07/04/23 03:08 Nasal Cannula 4 07/03/23 22:04 07/03/23 22:02 Nasal Cannula 4 07/03/23 20:35 Nasal Cannula 4 PG Care Time/CCT Total # of Minutes Spent Total Time Spent with Patient: Total time spent is greater than 50% in coordination of care (as documented) at patient's floor/unit and/or counseling patient: Coding Level of Care Code 06317 INT INP/OBS CARE 2/55MIN Diagnoses Hematuria R31.9 Kidney stones N20.0
--- NOTE | 2023-07-04 08:38 | Electrocardiogram Report ---
Test Reason : Blood Pressure : / mmHG Vent. Rate : 060 BPM Atrial Rate : 060 BPM P-R Int : 170 ms QRS Dur : 086 ms QT Int : 402 ms P-R-T Axes : 015 068 089 degrees QTc Int : 402 ms Normal sinus rhythm Possible Left atrial enlargement Nonspecific ST abnormality Abnormal ECG When compared with ECG of 12-MAR-2023 01:06, No significant change was found Confirmed by Fernando Nieves ([id number]) on 07/04/2023 8:38:17 AM Referred By: REFERRED SELF Confirmed By:Wan Nieves
--- NOTE | 2023-07-04 09:27 | Hospitalist Progress Note ---
Date of Service July 04, 2023 Assessment & Plan (1) Ambulatory dysfunction: (2) Generalized weakness: (3) Hematuria: (4) Spinal stenosis: (5) Chronic hypoxic respiratory failure, on home oxygen therapy: (6) Elevated hemidiaphragm: Plan Mr. Starks is an 82-year-old male with past medical significant for chronic respiratory failure with hypoxia on home oxygen, hypothyroidism, hyperlipidemia, history of hypercalcemia, granulomatous lung disease, sleep apnea, restrictive lung disease, elevated hemidiaphragm, history of cad s/p stent hypertension, chronic right-sided heart failure, Schatzki's ring of the distal esophagus, idiopathic scoliosis, osteoporosis, essential tremor, depression, abnormality of gait presents from home with fall. Patient is poor historian. Attempted to call daughter for further information, no success. 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 Previously evaluated by Ortho spine in 12/2022 for similar issues, not a surgical candidate fall precautions #Hematuria #Nephrolithiasis, nonobstructing #LUTS -Blood and RBC +, did not reflex to culture, low suspicion for infection, normal WBC -OP UA similar with hematuria noted, OP urology in 07/2023 -Bladder: Diffuse homogeneous wall thickening is seen Consulted Urology - obtain Ucultx Diarrhea - started this AM, multiple BMs - will obtain stool pcr #Elevated CK Cr stable at this time Trend CMP and CK Hold lasix at this time IVF gentle #Hypothyroidism Synthroid TSH 15, with low normal FT4; unable to get a clear sense of if he takes this medications appropriately; recently dose reduced given too tight control with TSH 0.2 Repeat OP tfts, ensure proper education of timing #Dysphagia history #Schatzki's ring Prior HH requesting speech referral Speech eval Aspiration precautions, soft diet sized #Depression #Radiculopathy -Recently Cymbalta dose increased from 30 to 60mg daily (06/21) will continue at 30mg daily in case contributing confusion/"falls" Continue citalopram #Obstructive CAD s/p acute thrombotic LAD s/p bare metal stent, September 2008 #Chronic right heart failure iso untreated EZEQUIEL 08/06/22: ECHO-LVEF normal 59% with a small-sized apical wall motion abnormality. Aortic sclerosis without stenosis. Mild MR. RV normal in size and function. -appears relatively dry Hold lasix at this time #Chronic hypoxic resp failure, on home O2 (prescribed 2L at rest, 4L exertion; 4L nocturnal) #Granulomatous lung disease #Asthma #Severe EZEQUIEL #Chronically elevated right hemidiaphragm spirometry in 2021, restrictive, moderate reduction in DLCO -VBG consistent with prior draws--compensated on cmp -Continue nocturnal O2 and O2 with exertion -Declines NIV -Continue combivent #Frequent ventricular ectopy propanolol TID (initially prescribed for tremor) monitor on tele #Hyperlipidemia. Hold Crestor iso CK elevation #Essential tremor Last followed neuro in 2019 propanolol #Bilateral rotator cuff tears left worse than right, s/p steroid injections 03/2023 PT/OT DVT ppx heparin sq med tele Admission and Anticipated Discharge Date Admission Date: July 03, 2023 Subjective Pt seen in follow up of fall, weakness, hematuria Urology consulted Currently sitting up in chair in [facility]. Says he has not been feeling well as he developed diarrhea this AM He reports he has been having burning with urination for some time No fever, chills, chest pain, increased shortness of breath, he is using suppl. O2 at baseline. Discussed with RN, will obtain stool sample Seen by urology - recommend Ucultx Review of Systems Review of Systems: All systems reviewed & are unremarkable except as noted in Subjective Physical Exam Physical Exam: GENERAL APPEARANCE: WD/WN frail elderly M in NAD, on suppl. O2 HEENT: NC, AT. MMM. EOMI NECK: Supple HEART: Normal rate and regular rhythm, normal S1/S1, no m/r/g LUNGS: CTAB, moving air well. No crackles or wheezes are heard. ABDOMEN: Soft, nontender, nondistended with + bowel sounds EXTREMITIES: no LE edema, moves extremities NEUROLOGICAL: Awake, alert, able to answer simple questions appropriately, moving all 4 extremities. Skin: Warm and dry Results & Data Results & Data Vital Signs (Past 12 Hours) Vital Signs Temp Pulse Pulse Resp BP BP Pulse Ox 07/04/23 08:42 07/04/23 07:42 60 16 93 07/04/23 07:41 36.4 C L 56 L 20 114/73 94 07/04/23 03:08 36.5 C 57 L 18 104/65 92 07/03/23 22:04 62 07/03/23 22:02 36.9 C 61 18 121/84 92 O2 Del Method O2 Flow Rate 07/04/23 08:42 Nasal Cannula 4 07/04/23 07:42 Nasal Cannula 4 07/04/23 07:41 Room Air 07/04/23 03:08 Nasal Cannula 4 07/03/23 22:04 07/03/23 22:02 Nasal Cannula 4 Laboratory Results 07/04/23 07/03/23 07/03/23 Range/Units 05:27 Unknown 14:39 WBC 6.91 (4.8-10.8) K/ul RBC 4.47 L (4.70-6.10) M/uL Hgb 14.1 (14.0-18.0) g/dl Hct 42.1 (42.0-52.0) % MCV 94.2 (80.0-100.0) fL MCH 31.5 (25.0-34.0) pg MCHC 33.5 (32.0-36.0) g/dL RDW Std Deviation 49.7 H (36.4-46.3) fL RDW Coeff of Mannie 14.4 (11.5-14.5) % Plt Count 130 (130-400) K/uL MPV 10.0 (9.4-12.4) fL VBG pH 7.37 (7.36-7.41) VBG pCO2 59 H (38-50) mmHg VBG pO2 48 mmHg VBG HCO3 34 mmol/L VBG O2 Saturation 79.3 % VBG Base Excess 6.7 mEq/L Sodium 139 139 (136-145) mmol/L Potassium 3.3 L 3.7 (3.5-5.1) mmol/L Chloride 101 100 (98-107) mmol/L Carbon Dioxide 30 31 (21-32) mmol/L Anion Gap 8 8 (3-11) BUN 12 12 (6-23) mg/dl Creatinine 0.79 0.82 (0.6-1.4) mg/dl Est Cr Clr Drug Dosing 75.0 61.5 ml/min Est GFR ( Amer) 97.6 96.1 ml/min Est GFR (Non-Af Amer) 84.2 82.9 ml/min BUN/Creatinine Ratio 15.2 14.6 (10-20) Glucose 101 H 100 H (70-99(Fasting)) mg/dl Calcium 9.0 9.4 (8.6-10.3) mg/dl Phosphorus 3.0 (2.5-4.9) mg/dl Magnesium 1.9 (1.7-2.4) mg/dl Total Bilirubin 0.6 (0.2-1.0) mg/dl AST 28 (13-39) U/L ALT 13 (7-52) U/L Alkaline Phosphatase 80 (34-104) U/L Total Creatine Kinase 283 H (30-223) U/L Total Protein 6.4 D (6.0-8.3) gm/dl Albumin 3.6 (3.4-5.0) gm/dl Globulin 2.8 (2.5-4.0) gm/dl Albumin/Globulin Ratio 1.3 (0.9-2) Free T4 (0.61-1.60) ng/dl Urine Color Urine Appearance (Clear) Urine pH (4.5-7.5) Ur Specific [place] (1.000-1.030) Urine Protein (Negative) Urine Glucose (UA) (Negative) Urine Ketones (Negative) Urine Blood (Negative) Urine Nitrite (Negative) Urine Bilirubin (Negative) Urine Urobilinogen (Negative) Ur Leukocyte Esterase (Negative) Urine WBC (Auto) (0-5) /hpf Urine RBC (Auto) (0-2) /hpf U Hyaline Cast (Auto) (0-2) /lpf U Epithel Cells (Auto) (0-2) /hpf Urine Bacteria (Auto) (None Seen) Nasal Screen MRSA (PCR) Positive A (Negative) 07/03/23 07/03/23 Range/Units 11:05 08:04 WBC (4.8-10.8) K/ul RBC (4.70-6.10) M/uL Hgb (14.0-18.0) g/dl Hct (42.0-52.0) % MCV (80.0-100.0) fL MCH (25.0-34.0) pg MCHC (32.0-36.0) g/dL RDW Std Deviation (36.4-46.3) fL RDW Coeff of Mannie (11.5-14.5) % Plt Count (130-400) K/uL MPV (9.4-12.4) fL VBG pH (7.36-7.41) VBG pCO2 (38-50) mmHg VBG pO2 mmHg VBG HCO3 mmol/L VBG O2 Saturation % VBG Base Excess mEq/L Sodium (136-145) mmol/L Potassium (3.5-5.1) mmol/L Chloride (98-107) mmol/L Carbon Dioxide (21-32) mmol/L Anion Gap (3-11) BUN (6-23) mg/dl Creatinine (0.6-1.4) mg/dl Est Cr Clr Drug Dosing ml/min Est GFR ( Amer) ml/min Est GFR (Non-Af Amer) ml/min BUN/Creatinine Ratio (10-20) Glucose (70-99(Fasting)) mg/dl Calcium (8.6-10.3) mg/dl Phosphorus (2.5-4.9) mg/dl Magnesium (1.7-2.4) mg/dl Total Bilirubin (0.2-1.0) mg/dl AST (13-39) U/L ALT (7-52) U/L Alkaline Phosphatase (34-104) U/L Total Creatine Kinase (30-223) U/L Total Protein (6.0-8.3) gm/dl Albumin (3.4-5.0) gm/dl Globulin (2.5-4.0) gm/dl Albumin/Globulin Ratio (0.9-2) Free T4 0.79 (0.61-1.60) ng/dl Urine Color Dark Yellow Urine Appearance Cloudy A (Clear) Urine pH 5.5 (4.5-7.5) Ur Specific [place] 1.018 (1.000-1.030) Urine Protein 2+ H (Negative) Urine Glucose (UA) Negative (Negative) Urine Ketones 1+ H (Negative) Urine Blood 3+ H (Negative) Urine Nitrite Negative (Negative) Urine Bilirubin Negative (Negative) Urine Urobilinogen Negative (Negative) Ur Leukocyte Esterase Trace H (Negative) Urine WBC (Auto) 0-5 (0-5) /hpf Urine RBC (Auto) >20 H (0-2) /hpf U Hyaline Cast (Auto) 0-2 (0-2) /lpf U Epithel Cells (Auto) 3-5 H (0-2) /hpf Urine Bacteria (Auto) None Seen (None Seen) Nasal Screen MRSA (PCR) (Negative) Medications Administered Current Inpatient Medications Acetaminophen (Acetaminophen 500 Mg Tab) 1,000 mg PO Q8H PRN PRN Reason: Pain Stop: 08/02/23 17:29 Last Admin: 07/03/23 23:15 Dose: 1,000 mg Albuterol (Albuterol Hfa 8 Gm Inhaler) 2 puffs INH Q6H PRN PRN Reason: Shortness Of Breath Or Wheezing Stop: 08/02/23 17:29 Albuterol (Albuterol Hfa 8 Gm Inhaler (Combivent Respimat P&T Subs)) [facility] Protocol Stop: 08/02/23 17:59 Last Admin: 07/04/23 07:42 Dose: 1 puffs Benzonatate (Benzonatate 100 Mg Capsule) 100 mg PO TID PRN PRN Reason: Cough Stop: 08/02/23 17:29 Citalopram Hydrobromide (Citalopram 20 Mg Tab) 20 mg PO [facility] Stop: 08/03/23 08:59 Last Admin: 07/04/23 07:59 Dose: 20 mg Clopidogrel Bisulfate (Clopidogrel Bisulfate 75 Mg Tab) 75 mg PO [facility] Stop: 08/03/23 08:59 Last Admin: 07/04/23 08:00 Dose: 75 mg Duloxetine HCl (Duloxetine Hcl 30 Mg Cap) 30 mg PO [facility] Stop: 08/03/23 08:59 Last Admin: 07/04/23 08:00 Dose: 30 mg Heparin Sodium (Porcine) (Heparin Sod 5,000 Unit/0.5 Ml Vial) 5,000 units SQ Q8 [facility] Stop: 08/02/23 17:59 Last Admin: 07/04/23 05:35 Dose: Not Given Ipratropium Lula (Ipratropium Hfa Inhaler (Combivent Respimat P&T Subs)) 1 puffs INH QIDR [facility]; Protocol Stop: 08/02/23 17:59 Last Admin: 07/04/23 07:42 Dose: 1 puffs Levothyroxine Sodium (Levothyroxine Sodium 112 Mcg Tablet) [facility]: 08/03/23 06:29 Last Admin: 07/04/23 05:34 Dose: 112 mcg Montelukast Sodium (Montelukast Sodium 10 Mg Tablet) 10 mg PO QAM [facility] Stop: 08/03/23 08:59 Last Admin: 07/04/23 08:00 Dose: 10 mg Nitroglycerin (Nitroglycerin Sl 0.4 Mg/Tab Tab) 0.4 mg SL UD PRN PRN Reason: Angina Stop: 08/02/23 17:29 Pantoprazole Sodium (Pantoprazole 40 Mg Tab) 40 mg PO DAILYBB [facility] Stop: 08/03/23 06:29 Last Admin: 07/04/23 05:34 Dose: 40 mg Propranolol HCl (Propranolol Hcl 20 Mg Tab) 20 mg PO TID [facility] Stop: 08/02/23 20:59 Last Admin: 07/04/23 07:59 Dose: 20 mg Sodium Chloride (Sodium Chloride 0.65% Na Soln 45 Ml ([place])) 1 sprays NA BID PRN PRN Reason: Dryness Stop: 08/02/23 17:46 Tamsulosin HCl (Tamsulosin Hcl 0.4 Mg Cap) 0.4 mg PO HS [facility] Stop: 08/02/23 20:59 Last Admin: 07/03/23 19:48 Dose: 0.4 mg
[2023-07-04] MEDS: POTASSIUM CHLORIDE CRTAB 20 MEQ TABCR PO STA (10:24)
[2023-07-04] MEDS: POTASSIUM CHLORIDE PWD 20 MEQ PACK PO ONE (10:28)
[2023-07-04 22:32] LABS: Adenovirus F 40/41 PCR Not Detected (NotDetected); Astrovirus PCR Not Detected (NotDetected); Campylobacter PCR Not Detected (NotDetected); Cryptosporidium PCR Not Detected (NotDetected); Cyclospora cayetanensis PCR Not Detected (NotDetected); Entamoeba histolytica PCR Not Detected (NotDetected); Enteroaggregative E.coli(EAEC) Not Detected (NotDetected); Enteropathogenic E.coli (EPEC) Not Detected (NotDetected); Enterotoxigenic E.coli (ETEC) Not Detected (NotDetected); Giardia lamblia PCR Not Detected (NotDetected); Norovirus GI/GII PCR Not Detected (NotDetected); Plesiomonas shigelloides PCR Not Detected (NotDetected); Rotavirus A PCR Not Detected (NotDetected); Salmonella PCR Not Detected (NotDetected); Sapovirus PCR Not Detected (NotDetected); Shiga-like Toxin E.coli (STEC) Not Detected (NotDetected); Shigella/Enteroinvasive E.coli Not Detected (NotDetected); Vibrio cholerae PCR Not Detected (NotDetected); Vibrio species PCR Not Detected (NotDetected); Yersinia enterocolitica PCR Not Detected (NotDetected)
[2023-07-04 22:40] LABS: Cdiff Toxin B Gene (2yr or >) Positive Cdiff Gene (Neg)
[2023-07-04 23:19] LABS: Cdiff Antigen Positive; Cdiff Toxin A+B Negative Cdiff Toxin (Negative)
[2023-07-05] MEDS: LOPERAMIDE HCL 2 MG CAP PO STA (00:15)
--- NOTE | 2023-07-05 11:09 | Hospitalist Progress Note ---
Date of Service July 05, 2023 Assessment & Plan (1) Ambulatory dysfunction: (2) Generalized weakness: (3) Hematuria: (4) Spinal stenosis: (5) Chronic hypoxic respiratory failure, on home oxygen therapy: (6) Elevated hemidiaphragm: Plan Mr. Starks is an 82-year-old male with past medical significant for chronic respiratory failure with hypoxia on home oxygen, hypothyroidism, hyperlipidemia, history of hypercalcemia, granulomatous lung disease, sleep apnea, restrictive lung disease, elevated hemidiaphragm, history of cad s/p stent hypertension, chronic right-sided heart failure, Schatzki's ring of the distal esophagus, idiopathic scoliosis, osteoporosis, essential tremor, depression, abnormality of gait presents from home with fall. Patient is poor historian. Attempted to call daughter for further information, no success. 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 for c. diff gene but not toxin - will start PO vancomycin #Elevated CK Cr stable at this time Trend CMP and CK Hold lasix at this time IVF gentle #Hypothyroidism Synthroid TSH 15, with low normal FT4; unable to get a clear sense of if he takes this medications appropriately; recently dose reduced given too tight control with TSH 0.2 Repeat OP tfts, ensure proper education of timing #Dysphagia history #Schatzki's ring Prior HH requesting speech referral Speech eval Aspiration precautions, soft diet sized #Depression #Radiculopathy -Recently Cymbalta dose increased from 30 to 60mg daily (06/21) will continue at 30mg daily in case contributing confusion/"falls" Continue citalopram #Obstructive CAD s/p acute thrombotic LAD s/p bare metal stent, September 2008 #Chronic right heart failure iso untreated EZEQUIEL 08/06/22: ECHO-LVEF normal 59% with a small-sized apical wall motion abnormality. Aortic sclerosis without stenosis. Mild MR. RV normal in size and function. -appears relatively dry Hold lasix at this time #Chronic hypoxic resp failure, on home O2 (prescribed 2L at rest, 4L exertion; 4L nocturnal) #Granulomatous lung disease #Asthma #Severe EZEQUIEL #Chronically elevated right hemidiaphragm spirometry in 2021, restrictive, moderate reduction in DLCO -VBG consistent with prior draws--compensated on cmp -Continue nocturnal O2 and O2 with exertion -Declines NIV -Continue combivent #Frequent ventricular ectopy propanolol TID (initially prescribed for tremor) monitor on tele #Hyperlipidemia. Hold Crestor iso CK elevation #Essential tremor Last followed neuro in 2018 propanolol #Bilateral rotator cuff tears left worse than right, s/p steroid injections 03/2023 PT/OT DVT ppx heparin sq med tele Admission and Anticipated Discharge Date Admission Date: July 03, 2023 Subjective Pt seen in follow up of fall, weakness, hematuria Urology consulted, ucultx pending Currently sitting up in chair in NAD. Says he has not been feeling well as he developed diarrhea yesterday He reports he has been having burning with urination for some time No fever, chills, chest pain, increased shortness of breath, he is using suppl. O2 at baseline. stool posit. for c. diff gene but not toxin Review of Systems Review of Systems: All systems reviewed & are unremarkable except as noted in Subjective Physical Exam Physical Exam: GENERAL APPEARANCE: WD/WN frail elderly M in NAD, on suppl. O2 HEENT: NC, AT. MMM. EOMI NECK: Supple HEART: Normal rate and regular rhythm, normal S1/S1, no m/r/g LUNGS: CTAB, moving air well. No crackles or wheezes are heard. ABDOMEN: Soft, nontender, nondistended with + bowel sounds EXTREMITIES: no LE edema, moves extremities NEUROLOGICAL: Awake, alert, able to answer simple questions appropriately, moving all 4 extremities. Skin: Warm and dry Results & Data Results & Data Vital Signs (Past 12 Hours) Vital Signs Temp Pulse Pulse Resp BP Pulse Ox O2 Del Method 07/05/23 10:51 68 18 95 Nasal Cannula 07/05/23 07:41 62 07/05/23 07:26 66 16 92 Nasal Cannula 07/05/23 07:14 36.9 C 65 20 100/63 93 Nasal Cannula 07/05/23 02:46 36.4 C L 58 L 18 111/72 94 Nasal Cannula 07/04/23 23:21 37 C 60 18 104/65 91 Nasal Cannula O2 Flow Rate 07/05/23 10:51 4 07/05/23 07:41 07/05/23 07:26 4 07/05/23 07:14 4 07/05/23 02:46 4 07/04/23 23:21 4 Laboratory Results 07/04/23 Range/Units 20:50 Stl C. cayetanensis PCR Not Detected (NotDetected) Stool Rotavirus A PCR Not Detected (NotDetected) Stl Adenov F 40/41 PCR Not Detected (NotDetected) Stool Astrovirus (PCR) Not Detected (NotDetected) Stool Campylobacter PCR Not Detected (NotDetected) Stl C. diff Tox B Gene Positive Cdiff Gene H (Neg) Stl C.difficile Tox A&B Negative Cdiff Toxin (Negative) Stool Cryptosporidium PCR Not Detected (NotDetected) Stl E.coli Shiga Tox PCR Not Detected (NotDetected) Stl Enterotoxigenic E PCR Not Detected (NotDetected) Stool EPEC (PCR) Not Detected (NotDetected) Stool EAEC (PCR) Not Detected (NotDetected) Stl E. histolytica PCR Not Detected (NotDetected) Stool Giardia Lamblia PCR Not Detected (NotDetected) Stool Salmonella PCR Not Detected (NotDetected) Stool Sapovirus (PCR) Not Detected (NotDetected) Stl P. shigelloides PCR Not Detected (NotDetected) Stl Shigella/EIEC PCR Not Detected (NotDetected) St Y.enterocolitica PCR Not Detected (NotDetected) Stool Vibrio (PCR) Not Detected (NotDetected) Stl Vibrio cholerae PCR Not Detected (NotDetected) Stl Norovirus GI/GII PCR Not Detected (NotDetected) Medications Administered Current Inpatient Medications Acetaminophen (Acetaminophen 500 Mg Tab) 1,000 mg PO Q8H PRN PRN Reason: Pain Stop: 08/02/23 17:29 Last Admin: 07/04/23 20:58 Dose: 1,000 mg Albuterol (Albuterol Hfa 8 Gm Inhaler) 2 puffs INH Q6H PRN PRN Reason: Shortness Of Breath Or Wheezing Stop: 08/02/23 17:29 Albuterol (Albuterol Hfa 8 Gm Inhaler (Combivent Respimat P&T Subs)) 1 puffs INH [facility]; Protocol Stop: 08/02/23 17:59 Last Admin: 07/05/23 10:51 Dose: 1 puffs Benzonatate (Benzonatate 100 Mg Capsule) 100 mg PO TID PRN PRN Reason: Cough Stop: 08/02/23 17:29 Oh Syrup (Oh Syrup 5 Ml Udp) 5 ml PO Q6 [facility] Stop: 07/15/23 11:59 Citalopram Hydrobromide (Citalopram 20 Mg Tab) 20 mg PO [facility] Stop: 08/03/23 08:59 Last Admin: 07/05/23 08:44 Dose: 20 mg Clopidogrel Bisulfate (Clopidogrel Bisulfate 75 Mg Tab) 75 mg PO [facility] Stop: 08/03/23 08:59 Last Admin: 07/05/23 08:44 Dose: 75 mg Duloxetine HCl (Duloxetine Hcl 30 Mg Cap) 30 mg PO [facility] Stop: 08/03/23 08:59 Last Admin: 07/05/23 08:45 Dose: 30 mg Heparin Sodium (Porcine) (Heparin Sod 5,000 Unit/0.5 Ml Vial) 5,000 units SQ Q8 [facility] Stop: 08/02/23 17:59 Last Admin: 07/05/23 05:25 Dose: Not Given Ipratropium Henry (Ipratropium Hfa Inhaler (Combivent Respimat P&T Subs)) 1 puffs INH [facility]; Protocol Stop: 08/02/23 17:59 Last Admin: 07/05/23 10:51 Dose: 1 puffs Levothyroxine Sodium (Levothyroxine Sodium 112 Mcg Tablet) [facility] Stop: 08/03/23 06:29 Last Admin: 07/05/23 05:25 Dose: 112 mcg Montelukast Sodium (Montelukast Sodium 10 Mg Tablet) 10 mg PO [facility] Stop: 08/03/23 08:59 Last Admin: 07/05/23 08:45 Dose: 10 mg Nitroglycerin (Nitroglycerin Sl 0.4 Mg/Tab Tab) 0.4 mg SL UD PRN PRN Reason: Angina Stop: 08/02/23 17:29 Pantoprazole Sodium (Pantoprazole 40 Mg Tab) 40 mg PO [facility] Stop: 08/03/23 06:29 Last Admin: 07/05/23 05:25 Dose: 40 mg Propranolol HCl (Propranolol Hcl 20 Mg Tab) 20 mg PO TID [facility] Stop: 08/02/23 20:59 Last Admin: 07/05/23 08:45 Dose: 20 mg Sodium Chloride (Sodium Chloride 0.65% Na Soln 45 Ml ([place])) 1 sprays NA BID PRN PRN Reason: Dryness Stop: 08/02/23 17:46 Tamsulosin HCl (Tamsulosin Hcl 0.4 Mg Cap) 0.4 mg PO HS [facility] Stop: 08/02/23 20:59 Last Admin: 07/04/23 19:43 Dose: 0.4 mg Vancomycin HCl (Vancomycin Hcl 125 Mg/2.5ml Soln) 125 mg PO Q6 [facility] Stop: 07/15/23 11:59
[2023-07-05 11:38] LABS: Hematocrit (blood only) 41.9 % (42.0-52.0); Hemoglobin 13.9 g/dl (14.0-18.0); Mean Corpuscular Hemoglobin 31.3 pg (25.0-34.0); Mean Corpuscular Hgb Conc 33.2 g/dL (32.0-36.0); Mean Corpuscular Volume 94.4 fL (80.0-100.0); Mean Platelet Volume 9.4 fL (9.4-12.4); Platelet Count 142 K/uL (130-400); RDW Coefficient of Variation 14.2 % (11.5-14.5); RDW Standard Deviation 49.3 fL (36.4-46.3); Red Blood Count 4.44 M/uL (4.70-6.10); White Blood Count 10.13 K/ul (4.8-10.8)
[2023-07-05 11:55] LABS: BUN Creatinine Ratio 12.2 (10-20); Calcium 9.4 mg/dl (8.6-10.3); Creatinine Clr Calc Pharmacy 70.6 ml/min; Est GFR (African American) 96.1 ml/min; Est GFR (Non-African American) 82.9 ml/min; Magnesium 1.9 mg/dl (1.7-2.4); Phosphorus 2.4 mg/dl (2.5-4.9); Potassium 3.5 mmol/L (3.5-5.1)
[2023-07-05] MEDS ORDERED: VANCOMYCIN HCL 250 MG/5 ML SOLN PO SCH ×2 (12:00)
[2023-07-05] MEDS: VANCOMYCIN HCL 125 MG/2.5ML SOLN PO SCH (12:59)
[2023-07-05] MEDS: CHERRY SYRUP 5 ML UDP PO SCH (12:59)
[2023-07-06 08:01] LABS: Hematocrit (blood only) 39.1 % (42.0-52.0); Hemoglobin 13.2 g/dl (14.0-18.0); Mean Corpuscular Hemoglobin 31.4 pg (25.0-34.0); Mean Corpuscular Hgb Conc 33.8 g/dL (32.0-36.0); Mean Corpuscular Volume 92.9 fL (80.0-100.0); Mean Platelet Volume 9.7 fL (9.4-12.4); Platelet Count 141 K/uL (130-400); RDW Standard Deviation 47.8 fL (36.4-46.3); Red Blood Count 4.21 M/uL (4.70-6.10); White Blood Count 8.65 K/ul (4.8-10.8)
[2023-07-06 08:39] LABS: Calcium 8.8 mg/dl (8.6-10.3); Magnesium 1.8 mg/dl (1.7-2.4); Potassium 3.3 mmol/L (3.5-5.1)
[2023-07-06 08:44] LABS: BUN Creatinine Ratio 11.4 (10-20); Creatinine Clr Calc Pharmacy 83.3 ml/min; Est GFR (African American) 102.6 ml/min; Est GFR (Non-African American) 88.5 ml/min; Phosphorus 2.9 mg/dl (2.5-4.9)
[2023-07-06] MEDS: CEFEPIME 2,000 MG in SYRINGE 0 ML IV SCH (14:52)
--- NOTE | 2023-07-06 15:41 | XRay Report ---
RIGHT SHOULDER 3 VIEWS CLINICAL HISTORY: Right shoulder pain. FINDINGS: 3 views of the right shoulder are correlated with right humeral radiographs dated 03/12/2023 . The skeletal structures are osteopenic. There is no radiographic evidence of fracture or dislocatio n. Productive degenerative change is seen at the acromioclavicular joint. Moderate to severe osteoart hritic change is seen at the glenohumeral articulation with bony sclerosis and overgrowth. Degenerati ve sclerosis is also seen in the greater tuberosity of the humeral head. The overlying soft tissues a re within normal limits. The imaged right lung parenchyma appears clear noting a calcified granuloma. Scoliosis is partially visualized in the thoracic spine. IMPRESSION: Osteopenia and arthritic change as above with no acute bony abnormality identified. Electronically signed by: Hernan Arguello M.D. 07/06/2023 3:40 PM
--- NOTE | 2023-07-06 17:30 | Hospitalist Progress Note ---
Date of Service July 06, 2023 Assessment & Plan (1) Ambulatory dysfunction: (2) Generalized weakness: (3) Hematuria: (4) Spinal stenosis: (5) Chronic hypoxic respiratory failure, on home oxygen therapy: (6) Elevated hemidiaphragm: Plan per previous hospitalist notes with addendum: Mr. Starks is an 82-year-old male with past medical significant for chronic respiratory failure with hypoxia on home oxygen, hypothyroidism, hyperlipidemia, history of hypercalcemia, granulomatous lung disease, sleep apnea, restrictive lung disease, elevated hemidiaphragm, history of cad s/p stent hypertension, chronic right-sided heart failure, Schatzki's ring of the distal esophagus, idi opathic scoliosis, osteoporosis, essential tremor, depression, abnormality of gait presents from home with fall. Patient is poor historian. Attempted to call daughter for further information, no success. 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 Previously evaluated by Ortho spine in 12/2022 for similar issues, not a surgical candidate fall precautions PT/OT eval #Hematuria #Nephrolithiasis, nonobstructing #LUTS -Blood and RBC +, di -OP UA similar with hematuria noted, OP urology in 07/2023 -Bladder: Diffuse homogeneous wall thickening is seen Consulted Urology - obtain Ucultx Urine culture: Proteus Blood culture: pending IV Cefepime Day 1 Diarrhea - started yesterday AM, multiple BMs - stool pcr posit. for c. diff gene but not toxin - will start PO vancomycin resolved change Vanco PO to daily #Elevated CK Cr stable at this time Trend CMP and CK Hold lasix at this time IVF gentle trended down #Hypothyroidism Synthroid TSH 15, with low normal FT4; unable to get a clear sense of if he takes this medications appropriately; recently dose reduced given too tight control with TSH 0.2 Repeat OP tfts, ensure proper education of timing #Dysphagia history #Schatzki's ring Prior HH requesting speech referral Speech eval Aspiration precautions, soft diet sized #Depression #Radiculopathy -Recently Cymbalta dose increased from 30 to 60mg daily (06/21) will continue at 30mg daily in case contributing confusion/"falls" Continue citalopram #Obstructive CAD s/p acute thrombotic LAD s/p bare metal stent, September 2008 #Chronic right heart failure iso untreated EZEQUIEL 08/06/22: ECHO-LVEF normal 59% with a small-sized apical wall motion abnormality. Aortic sclerosis without stenosis. Mild MR. RV normal in size and function. -appears relatively dry Hold lasix at this time #Chronic hypoxic resp failure, on home O2 (prescribed 2L at rest, 4L exertion; 4L nocturnal) #Granulomatous lung disease #Asthma #Severe EZEQUIEL #Chronically elevated right hemidiaphragm spirometry in 2021, restrictive, moderate reduction in DLCO -VBG consistent with prior draws--compensated on cmp -Continue nocturnal O2 and O2 with exertion -Declines NIV -Continue combivent #Frequent ventricular ectopy propanolol TID (initially prescribed for tremor) monitor on tele #Hyperlipidemia. Hold Crestor iso CK elevation #Essential tremor Last followed neuro in 2018 propanolol #Bilateral rotator cuff tears left worse than right, s/p steroid injections 03/2023 PT/OT DVT ppx heparin sq med tele PT/OT eval Admission and Anticipated Discharge Date Admission Date: July 03, 2023 Subjective ff up for ambulatory dysfunction, UTI, etc seen resting in bed, sleeping, easily awakened comfortable, not in distress states he feels tired, but ok overall has suprapubic discomfort no flank, new back pain still has occasional hematuria, dysuria no fever/chills no other symptoms Review of Systems Review of Systems: General- oriented x 3, not in distress, speaks in sentences with no effort or accessory muscle use Eyes- anicteric Neck- no JVD Lungs- clear breath sounds bilaterally, no rales/wheezes Heart- normal rate, regular rhythm; no murmurs Abdomen- normal bowel sounds, nondistended, soft, no tenderness (+) mild suprapubic tenderness Extremities- no pretibial edema, no calf tenderness Neuro- alert, oriented x 3; no gross focal neurologic deficits Skin- warm & dry Results & Data Results & Data Vital Signs (Past 12 Hours) Vital Signs Temp Pulse Pulse Resp BP Pulse Ox O2 Del Method 07/06/23 16:44 66 07/06/23 16:15 36.4 C L 57 L 18 119/81 95 Nasal Cannula 07/06/23 14:38 63 16 94 Nasal Cannula 07/06/23 11:12 36.5 C 59 L 18 120/88 98 Nasal Cannula 07/06/23 10:59 61 16 97 Nasal Cannula 07/06/23 07:42 36.4 C L 55 L 18 117/75 94 Nasal Cannula 07/06/23 07:20 64 16 95 Nasal Cannula 07/06/23 07:19 55 L O2 Flow Rate 07/06/23 16:44 07/06/23 16:15 4 07/06/23 14:38 4 07/06/23 11:12 4 07/06/23 10:59 4 07/06/23 07:42 4 07/06/23 07:20 4 07/06/23 07:19 all noted and reviewed including below
[2023-07-06] MEDS: POTASSIUM CHLORIDE 20 MEQ/15 ML UDC PO STA (18:37)
[2023-07-06] MEDS: LIDOCAINE 5% 1 PATCH TD SCH (18:38)
[2023-07-07 08:19] LABS: BUN Creatinine Ratio 12.5 (10-20); Calcium 9.3 mg/dl (8.6-10.3); Creatinine Clr Calc Pharmacy 73.1 ml/min; Est GFR (African American) 97.1 ml/min; Est GFR (Non-African American) 83.8 ml/min; Magnesium 1.9 mg/dl (1.7-2.4); Potassium 3.9 mmol/L (3.5-5.1)
[2023-07-07] MEDS: VANCOMYCIN HCL 125 MG/2.5ML SOLN PO SCH (08:51)
[2023-07-07] MEDS: PHENAZOPYRIDINE HCL 100 MG TAB PO SCH (12:25)
[2023-07-07] MEDS ORDERED: Nursing to Pharmacy Communication SCH (16:15)
--- NOTE | 2023-07-07 16:43 | Hospitalist Progress Note ---
Date of Service July 07, 2023 Assessment & Plan (1) Ambulatory dysfunction: (2) Generalized weakness: (3) Hematuria: (4) Spinal stenosis: (5) Chronic hypoxic respiratory failure, on home oxygen therapy: (6) Elevated hemidiaphragm: Plan per previous hospitalist notes with addendum: Mr. Starks is an 82-year-old male with past medical significant for chronic respiratory failure with hypoxia on home oxygen, hypothyroidism, hyperlipidemia, history of hypercalcemia, granulomatous lung disease, sleep apnea, restrictive lung disease, elevated hemidiaphragm, history of cad s/p stent hypertension, chronic right-sided heart failure, Schatzki's ring of the distal esophagus, idi opathic scoliosis, osteoporosis, essential tremor, depression, abnormality of gait presents from home with fall. Patient is poor historian. Attempted to call daughter for further information, no success. 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 Previously evaluated by Ortho spine in 12/2022 for similar issues, not a surgical candidate fall precautions PT/OT eval #Hematuria #Nephrolithiasis, nonobstructing #LUTS -Blood and RBC +, di -OP UA similar with hematuria noted, OP urology in 07/2023 -Bladder: Diffuse homogeneous wall thickening is seen Consulted Urology - obtain Ucultx Urine culture: Proteus Blood culture: pending IV Cefepime Day 2 Transition to Bactrim p.o. upon discharge Diarrhea - started yesterday AM, multiple BMs - stool pcr posit. for c. diff gene but not toxin - will start PO vancomycin resolved change Vanco PO to daily #Elevated CK Cr stable at this time Trend CMP and CK Hold lasix at this time IVF gentle trended down #Hypothyroidism Synthroid TSH 15, with low normal FT4; unable to get a clear sense of if he takes this medications appropriately; recently dose reduced given too tight control with TSH 0.2 Repeat OP tfts, ensure proper education of timing #Dysphagia history #Schatzki's ring Prior HH requesting speech referral Speech eval Aspiration precautions, soft diet sized #Depression #Radiculopathy -Recently Cymbalta dose increased from 30 to 60mg daily (06/21) will continue at 30mg daily in case contributing confusion/"falls" Continue citalopram #Obstructive CAD s/p acute thrombotic LAD s/p bare metal stent, September 2008 #Chronic right heart failure iso untreated EZEQUIEL 08/06/22: ECHO-LVEF normal 59% with a small-sized apical wall motion abnormality. Aortic sclerosis without stenosis. Mild MR. RV normal in size and function. -appears relatively dry Hold lasix at this time #Chronic hypoxic resp failure, on home O2 (prescribed 2L at rest, 4L exertion; 4L nocturnal) #Granulomatous lung disease #Asthma #Severe EZEQUIEL #Chronically elevated right hemidiaphragm spirometry in 2021, restrictive, moderate reduction in DLCO -VBG consistent with prior draws--compensated on cmp -Continue nocturnal O2 and O2 with exertion -Declines NIV -Continue combivent #Frequent ventricular ectopy propanolol TID (initially prescribed for tremor) monitor on tele #Hyperlipidemia. Hold Crestor iso CK elevation #Essential tremor Last followed neuro in 2018 propanolol #Bilateral rotator cuff tears left worse than right, s/p steroid injections 03/2023 reporting L shoulder pain, xray: no fractures PT/OT DVT ppx heparin sq med tele PT/OT eval Admission and Anticipated Discharge Date Admission Date: July 03, 2023 Subjective ff up for hematuria, UTI, etc. Seen resting in bedside chair, comfortable, not in distress States he feels okay overall No hematuria so far No fevers or chills No other new symptoms Review of Systems Review of Systems: all noted and negative except for above Physical Exam Physical Exam: General- oriented x 3, not in distress, speaks in sentences with no effort or accessory muscle use Eyes- anicteric Neck- no JVD Lungs- clear breath sounds bilaterally, no rales/wheezes Heart- normal rate, regular rhythm; no murmurs Abdomen- normal bowel sounds, nondistended, soft, nontender Extremities- no pretibial edema, no calf tenderness Neuro- alert, oriented x 3; no gross focal neurologic deficits Skin- warm & dry Results & Data Results & Data Vital Signs (Past 12 Hours) Vital Signs Temp Pulse Pulse Resp BP Pulse Ox O2 Del Method 07/07/23 15:51 58 L 07/07/23 15:35 64 18 93 Nasal Cannula 07/07/23 11:20 36.4 C L 58 L 18 119/67 93 Nasal Cannula 07/07/23 11:01 56 L 14 96 Nasal Cannula 07/07/23 08:05 Nasal Cannula 07/07/23 07:33 36.4 C L 69 18 124/70 92 Nasal Cannula 07/07/23 07:11 50 L 22 97 Nasal Cannula 07/07/23 07:09 49 L O2 Flow Rate 07/07/23 15:51 07/07/23 15:35 3 07/07/23 11:20 3 07/07/23 11:01 3 07/07/23 08:05 4 07/07/23 07:33 4 07/07/23 07:11 4 07/07/23 07:09 all noted and reviewed including below
[2023-07-08] MEDS: ADVANCED PROBIOTIC 625 MG CAPSULE PO SCH (08:21)
[2023-07-08] MEDS: CHERRY SYRUP 5 ML UDP PO SCH (08:21)
--- NOTE | 2023-07-08 11:02 | Orthopedic Consultation ---
Date of Consultation July 08, 2023 Assessment & Plan (1) Bilateral shoulder pain: Continue Lidoderm patches for pain control May use easy out for icing purposes. It is my understanding the patient is followed by [facility]. 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 History of Present Illness Reason for Consultation: Bilateral shoulder pain Requesting Physician: Vimal Agosto MD Attending Physician: Cr Reeder MD History of Present Illness This 82-year-old male is seen in consultation for bilateral shoulder pain. Patient was admitted to the hospital on July 02 for generalized weakness, shortness of breath and difficulty voiding. He states that he has chronic issues with both rotator cuffs. He states that he has seen an orthopedist in the past, but cannot recall who he saw or where he saw them. However, he states that he had bilateral shoulder corticosteroid injections performed near the end of March which did provide relief until recently. Currently the patient has Lidoderm patches on the shoulders which she states alleviates his pain significantly. He states that in the past he was told that his rotator cuffs do not function, however he was not a surgical candidate due to his other preexisting health issues. Currently he denies any chest pain. He states that he is always short of breath. He denies fever, chills, sweats or numbness or tingling in either upper extremity. He also denies nausea, vomiting or difficulty voiding but has had a few episodes of diarrhea. Allergies Allergy/AdvReac Type Severity Reaction Status Date / Time tramadol AdvReac Intermediate Hallucinati Verified 03/12/23 02:38 ng grapefruit AdvReac Unknown WAS TOLD Verified 03/12/23 02:38 NOT TO TAKE BECAUSE OF CHOLESTROL PILL. Home Medications Medication Instructions Recorded Confirmed Type citalopram 40 mg tablet 20 mg PO QAM 03/14/18 07/03/23 History clopidogrel 75 mg tablet (Plavix) See Rx Instructions .Route .COMPLEX 03/14/18 07/03/23 History nitroglycerin 0.4 mg sublingual 1 tab sublingual UD PRN Angina 03/14/18 07/03/23 History tablet acetaminophen 500 mg tablet 1,000 mg PO Q6H PRN Pain 07/03/21 07/03/23 History rosuvastatin 5 mg tablet 5 mg PO QAM 07/03/21 07/03/23 History albuterol sulfate 90 mcg/actuation 2 puff inhalation Q6H PRN 10/14/22 07/03/23 History aerosol inhaler Shortness Of Breath Or Wheezing duloxetine 30 mg capsule,delayed 60 mg PO QAM Pain 10/14/22 07/03/23 History release furosemide 20 mg tablet 40 mg PO QAM 10/14/22 07/03/23 History montelukast 10 mg tablet 10 mg PO QAM 10/14/22 07/03/23 History (Singulair) pantoprazole 20 mg tablet,delayed 20 mg PO DAILYBB 10/14/22 07/03/23 History release propranolol 20 mg tablet 20 mg PO TID #90 tabs 11/13/22 07/03/23 Rx levothyroxine 112 mcg tablet 112 mcg PO DAILYBB 12/07/22 07/03/23 History benzonatate 100 mg capsule 100 mg PO TID PRN Cough 01/02/23 07/03/23 History ipratropium 20 mcg-albuterol 100 1 puff inhalation QID 01/02/23 07/03/23 History mcg/actuation mist for inhalation oxycodone 5 mg tablet 5 mg PO Q8H PRN pain #10 tabs 01/09/23 07/03/23 Rx sodium chloride-aloe vera nasal 1 applic intranasal BID PRN Dry 03/12/23 07/03/23 History gel (Saline Nasal (aloe vera) gel) Nasal Passages tamsulosin 0.4 mg capsule 0.4 mg PO HS 07/03/23 07/03/23 History Patient History Medical History Fall Restrictive lung disease Acute on chronic respiratory failure with hypoxemia Acute and chronic respiratory failure with hypercapnia Pulmonary embolism COVID-19 Choking REASON FOR UPCOMING PROCEDURE PER PT Ankle swelling PT PLANS TO DISCUSS WITH PT REPORTS DR HAD HIM STOP FLUID PILL AND NOT SURE WHY Infected dental caries Subperiosteal abscess of jaw Acute periodontal abscess Pain, dental Generalized muscle weakness Lower urinary tract symptoms (LUTS) Hypoxia DVT prophylaxis Chronic right-sided heart failure Fall HX, NOT RECENTLY Cervical spine fracture LAST SUMMER NO LIMITATIONS SOB (shortness of breath) on exertion with wheezing Scoliosis Chronic back pain GERD (gastroesophageal reflux disease) Hypothyroidism On anticoagulant therapy plavix daily 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 Myocardial Infarction 2009 Sleep apnea uses 4 L N/C MOSTLY ALL THE TIME On home oxygen therapy 3-4 L CONTINUOUS MOSTLY, AND PRN PER PT COPD (chronic obstructive pulmonary disease) Dyslipidemia HTN (hypertension) Hypothyroidism CAD (coronary artery disease) Surgical History Hx of oral surgery (07/05/21) Multiple Teeth Extractions for Facial Infection - Sin Chacko, DMD NO CURRENT INFECTION PER PT (PAT CALL 08/18/21) History of testicular surgery "sac full of blood in testicle drained at 26 yrs old" History of heart artery stent x1 2009--[facility] [place] History of open reduction and internal fixation (ORIF) procedure left foot fx/pinky toe fx--hardware in place History of lithotripsy Hx of vasectomy Hx of right inguinal hernia repair History of colonoscopy History of esophagogastroduodenoscopy (EGD) History of wisdom tooth extraction History of tonsillectomy History of bilateral cataract extraction History of cardiac cath 2009 @ [facility] [place] with 1 stent--follows with Dr. Ramirez Stented coronary artery "bare metal stent to LAD 2008" Family History Sister Family history of reaction to anesthesia nausea/vomiting Mother Family history of diabetes mellitus Social History Smoking Status: Former smoker Tobacco Type: Pipe Cigarettes Per Day: SMOKED PIPE/CIGAR AGE 21'S; Second Hand Exposure: No; Do You Dip or Chew Tobacco: No; Tobacco Cessation Education Requested by Patient: No Hx Alcohol Use: Yes Alcohol type: beer Hx Substance Use: No Preferred Language: German Communication Ability: Effective Communication Tools: Other Visual Impairment: No Limitations Android Programmer Required: No Beliefs That Will Affect Care: None marital status: Current Living Situation: Alone Current Living Situation Comment: DOG How many Children do You have: 1 Other Information That Helps Us Care for You: No Feels Safe at Home: Yes Safety Concerns: Feels Safe At This Time Assistive Devices: Cane and Walker Review of Systems Review of Systems: All systems reviewed & are unremarkable except as noted in Subjective Physical Exam Physical Exam: Bilateral shoulders: Active forward flexion and abduction are limited to about 80 degrees. Patient has significant weakness with light applied resistance in these positions. I was able to passively forward flex his upper extremities to about 120 degrees before the patient experiences any pain. Flexed elbow external rotation bilaterally was limited to about 50 degrees. Patient had appreciable resistance with abducted internal rotation right approximately the T6 level. He had no resistance or pain with external rotation. [place]'s test with thumbs pointed downward at 0 and 30 degrees is positive. Empty can test is positive bilaterally. Subscapularis liftoff test positive bilaterally. Patient has tenderness over both glenohumeral and bicipital grooves. He states that at rest since having the Lidoderm patches placed he has no pain. He is able to reach terminal flexion extension his elbow. Has full range of motion of his wrist. Appropriate dexterity of his fingers. He is able to detect light sensation to touch over the pads of all digits. Results & Data Vital Signs (Past 12 Hours) Vital Signs Temp Pulse Pulse Resp BP BP Pulse Ox 07/08/23 08:09 36.5 C 55 L 18 113/72 92 07/08/23 07:58 51 L 07/08/23 07:26 55 L 18 92 07/08/23 03:36 36.5 C 67 18 109/70 93 07/07/23 23:15 36.6 C 67 18 114/74 91 O2 Del Method O2 Flow Rate 07/08/23 08:09 Nasal Cannula 4 07/08/23 07:58 07/08/23 07:26 Nasal Cannula 3 07/08/23 03:36 Room Air 07/07/23 23:15 Nasal Cannula 3 Diagnostic Findings Laboratory Results WBC 8.65 K/ul (4.8-10.8) 07/06/23 07:30 RBC 4.21 M/uL (4.70-6.10) L 07/06/23 07:30 Hgb 13.2 g/dl (14.0-18.0) L 07/06/23 07:30 Hct 39.1 % (42.0-52.0) L 07/06/23 07:30 MCV 92.9 fL (80.0-100.0) 07/06/23 07:30 MCH 31.4 pg (25.0-34.0) 07/06/23 07:30 MCHC 33.8 g/dL (32.0-36.0) 07/06/23 07:30 RDW Std Deviation 47.8 fL (36.4-46.3) H 07/06/23 07:30 RDW Coeff of Mannie 14.0 % (11.5-14.5) 07/06/23 07:30 Plt Count 141 K/uL (130-400) 07/06/23 07:30 MPV 9.7 fL (9.4-12.4) 07/06/23 07:30 Immature Gran % (Auto) 0.8 % 07/03/23 08:04 Neut % (Auto) 75.7 % 07/03/23 08:04 Lymph % (Auto) 10.2 % 07/03/23 08:04 [place] % (Auto) 12.6 % 07/03/23 08:04 Eos % (Auto) 0.2 % 07/03/23 08:04 Baso % (Auto) 0.5 % 07/03/23 08:04 Neut # (Auto) 7.97 K/uL (1.40-6.50) H 07/03/23 08:04 Lymph # (Auto) 1.07 K/uL (1.20-3.40) L 07/03/23 08:04 [place] # (Auto) 1.32 K/uL (0.11-0.59) H 07/03/23 08:04 Eos # (Auto) 0.02 K/uL (0.00-0.50) 07/03/23 08:04 Baso # (Auto) 0.05 K/uL (0.00-0.20) 07/03/23 08:04 Immature Gran # (Auto) 0.08 K/uL (0.01-0.20) 07/03/23 08:04 PT 11.0 Seconds (9.0-12.0) 07/03/23 08:04 INR 1.0 (0.9-1.1) 07/03/23 08:04 VBG pH 7.37 (7.36-7.41) 07/03/23 14:39 VBG pCO2 59 mmHg (38-50) H 07/03/23 14:39 VBG pO2 48 mmHg 07/03/23 14:39 VBG HCO3 34 mmol/L 07/03/23 14:39 VBG O2 Saturation 79.3 % 07/03/23 14:39 VBG Base Excess 6.7 mEq/L 07/03/23 14:39 Sodium 139 mmol/L (136-145) 07/07/23 07:04 Potassium 3.9 mmol/L (3.5-5.1) 07/07/23 07:04 Chloride 103 mmol/L (98-107) 07/07/23 07:04 Carbon Dioxide 31 mmol/L (21-32) 07/07/23 07:04 Anion Gap 5 (3-11) 07/07/23 07:04 BUN 10 mg/dl (6-23) 07/07/23 07:04 Creatinine 0.80 mg/dl (0.6-1.4) 07/07/23 07:04 Est Cr Clr Drug Dosing 73.1 ml/min 07/07/23 07:04 Est GFR ( Amer) 97.1 ml/min 07/07/23 07:04 Est GFR (Non-Af Amer) 83.8 ml/min 07/07/23 07:04 BUN/Creatinine Ratio 12.5 (10-20) 07/07/23 07:04 Glucose 101 mg/dl (70-99(Fasting)) H 07/07/23 07:04 Calcium 9.3 mg/dl (8.6-10.3) 07/07/23 07:04 Phosphorus 2.9 mg/dl (2.5-4.9) 07/06/23 07:30 Magnesium 1.9 mg/dl (1.7-2.4) 07/07/23 07:04 Total Bilirubin 0.6 mg/dl (0.2-1.0) 07/04/23 05:27 AST 28 U/L (13-39) 07/04/23 05:27 ALT 13 U/L (7-52) 07/04/23 05:27 Alkaline Phosphatase 80 U/L (34-104) 07/04/23 05:27 Total Creatine Kinase 283 U/L (30-223) H 07/04/23 05:27 Troponin I High Sens 17.4 pg/ml (0-20) 07/03/23 08:04 B-Natriuretic Peptide 77 pg/ml (0-100) 07/03/23 08:04 Total Protein 6.4 gm/dl (6.0-8.3) D 07/04/23 05:27 Albumin 3.6 gm/dl (3.4-5.0) 07/04/23 05:27 Globulin 2.8 gm/dl (2.5-4.0) 07/04/23 05:27 Albumin/Globulin Ratio 1.3 (0.9-2) 07/04/23 05:27 Lipase 30 U/L (11-82) 07/03/23 08:04 TSH 15.212 uIu/ml (0.300-4.500) H 07/03/23 08:04 Free T4 0.79 ng/dl (0.61-1.60) 07/03/23 08:04 Urine Color Dark Yellow 07/03/23 11:05 Urine Appearance Cloudy (Clear) A 07/03/23 11:05 Urine pH 5.5 (4.5-7.5) 07/03/23 11:05 Ur Specific [place] 1.018 (1.000-1.030) 07/03/23 11:05 Urine Protein 2+ (Negative) H 07/03/23 11:05 Urine Glucose (UA) Negative (Negative) 07/03/23 11:05 Urine Ketones 1+ (Negative) H 07/03/23 11:05 Urine Blood 3+ (Negative) H 07/03/23 11:05 Urine Nitrite Negative (Negative) 07/03/23 11:05 Urine Bilirubin Negative (Negative) 07/03/23 11:05 Urine Urobilinogen Negative (Negative) 07/03/23 11:05 Ur Leukocyte Esterase Trace (Negative) H 07/03/23 11:05 Urine WBC (Auto) 0-5 /hpf (0-5) 07/03/23 11:05 Urine RBC (Auto) >20 /hpf (0-2) H 07/03/23 11:05 U Hyaline Cast (Auto) 0-2 /lpf (0-2) 07/03/23 11:05 U Epithel Cells (Auto) 3-5 /hpf (0-2) H 07/03/23 11:05 Urine Bacteria (Auto) None Seen (None Seen) 07/03/23 11:05 Nasal Screen MRSA (PCR) Positive (Negative) A 07/03/23 Unknown Stl C. cayetanensis PCR Not Detected (NotDetected) 07/04/23 20:50 Stool Rotavirus A PCR Not Detected (NotDetected) 07/04/23 20:50 Stl Adenov F 40/41 PCR Not Detected (NotDetected) 07/04/23 20:50 Stool Astrovirus (PCR) Not Detected (NotDetected) 07/04/23 20:50 Stool Campylobacter PCR Not Detected (NotDetected) 07/04/23 20:50 Stl C. diff Tox B Gene Positive Cdiff Gene (Neg) H 07/04/23 20:50 Stl C.difficile Tox A&B Negative Cdiff Toxin (Negative) 07/04/23 20:50 Stool Cryptosporidium PCR Not Detected (NotDetected) 07/04/23 20:50 Stl E.coli Shiga Tox PCR Not Detected (NotDetected) 07/04/23 20:50 Stl Enterotoxigenic E PCR Not Detected (NotDetected) 07/04/23 20:50 Stool EPEC (PCR) Not Detected (NotDetected) 07/04/23 20:50 Stool EAEC (PCR) Not Detected (NotDetected) 07/04/23 20:50 Stl E. histolytica PCR Not Detected (NotDetected) 07/04/23 20:50 Stool Giardia Lamblia PCR Not Detected (NotDetected) 07/04/23 20:50 Stool Salmonella PCR Not Detected (NotDetected) 07/04/23 20:50 Stool Sapovirus (PCR) Not Detected (NotDetected) 07/04/23 20:50 Stl P. shigelloides PCR Not Detected (NotDetected) 07/04/23 20:50 Stl Shigella/EIEC PCR Not Detected (NotDetected) 07/04/23 20:50 St Y.enterocolitica PCR Not Detected (NotDetected) 07/04/23 20:50 Stool Vibrio (PCR) Not Detected (NotDetected) 07/04/23 20:50 Stl Vibrio cholerae PCR Not Detected (NotDetected) 07/04/23 20:50 Stl Norovirus GI/GII PCR Not Detected (NotDetected) 07/04/23 20:[address] 07/03/23 07:49 CT cervical spine wo con CLINICAL HISTORY: trauma TECHNIQUE: Multidetector row helical CT of the cervical spine was performed with out administration of intravenous contrast. Coronal and sagittal reformations were obtained. Automated dose lowering techniques and/or adjustment according to patient size were utilized for this exam. Comparison: Comparison is made to CT cervical spine 12/07/2022 FINDINGS: No acute fractures or subluxations are identified. Degenerative changes are seen in the visualized spine. The alignment is normal. Soft tissues are unremarkable. IMPRESSION: Degenerative changes without evidence of acute bony injury. ACT 112: Negative or not required by law. Electronically signed by: Luis Rajan M.D. 07/03/2023 8:[address] 07/03/23 07:49 CT head/brain wo con CLINICAL HISTORY: trauma Technique: Contiguous axial CT images of the head were acquired from the base of the skull to the vertex without intravenous contrast administration. Images were viewed in brain, subdural and bone windows. Automated dose lowering techniques and/or adjustment according to patient size were utilized for this exam. Comparison: None available at the time of this dictation. Findings: Areas of decreased attenuation are present in the periventricular and subco rtical white matter bilaterally consistent with small vessel ischemic disease. Generalized cerebral atrophy with commensurate enlargement of the ventricles, sulci, and cisterns is also present. There is no acute intracranial hemorrhage or evidence of acute territorial infarction. No shift of the midline structures, mass effect, or extra-axial abnormalities are shown. Atherosclerotic calcifications are present in the intracranial segments of the internal carotid arteries. Imaged portions of the paranasal sinuses and mastoid air cells are clear. The orbits appear normal. There are no acute fractures of the calvaria or scalp swelling. Impression: No acute intracranial hemorrhage, no evidence of acute territorial infarction or other acute intracranial disease process. ACT 112: Negative or not required by law. Electronically signed by: Luis Rajan M.D. 07/03/2023 8:24 AM Chest X-Ray 07/03/23 07:50 XR chest 1V portable CLINICAL HISTORY: trauma TECHNIQUE: Single frontal radiograph of the chest was obtained. Comparison: Comparison is made to chest radiograph 03/12/2023 FINDINGS: No lines and tubes are seen. Cardiomegaly is noted. Right lower lung atelectasis versus scarring, unchanged. Small right pleural effusion. IMPRESSION: Small right pleural effusion and right lung base atelectasis is again seen with or without superimposed aspiration/pneumonia. ACT 112: Negative or not required by law. Electronically signed by: Luis Rajan M.D. 07/03/2023 8:39 AM Abdomen/Pelvis CT 07/03/23 11:40 CT abd pelvis IV con only, CT lumbar spine w con CLINICAL HISTORY: trauma, hematuria TECHNIQUE: Helical axial images of the abdomen and pelvis were obtained and displayed. Automated dose lowering techniques and/or adjustment according to patient size were utilized for this exam. Dedicated images of the lumbar spine were obtained. This exam was performed with intravenous contrast. COMPARISON: Comparison is made to CT abdomen pelvis 10/20/[address] pelvis 01/12/2023 FINDINGS: Lower chest: Atelectasis is in the right lung base. Liver: Unremarkable. No focal lesions are seen. Gallbladder and biliary tree: Cholelithiasis is seen without evidence of cholecystitis. No intra- or extrahepatic biliary ductal dilation. Pancreas: Unremarkable, no focal lesions. Spleen: Calcifications are noted in the spleen compatible with prior granulomatous disease. Adrenals: Unremarkable. Kidneys and ureters: Renal cysts are seen. There is a 15 mm stone in the left collecting system and ureteral thickening at this level is unchanged from prior exam. Bladder: Diffuse homogeneous wall thickening is seen. Reproductive organs: Prostatomegaly is seen. Bowel: The appendix is normal. Lymph nodes Retroperitoneal: Unremarkable. Pelvic: Unremarkable. Mesenteric: Unremarkable. Peritoneum: Normal. Vessels: Atherosclerotic calcifications are seen. Abdominal wall: Umbilical hernia contains a small loop of bowel Bones: Degenerative changes in the visualized spine. S-shaped scoliosis is seen. IMPRESSION: Nonobstructive stones are seen with thickening of the left collecting system, similar to prior exam. Otherwise no acute abnormalities. No evidence of acute fracture. ACT 112: Negative or not required by law. Electronically signed by: Luis Rajan M.D. 07/03/2023 12:[address] 07/03/23 11:40 CT abd pelvis IV con only, CT lumbar spine w con CLINICAL HISTORY: trauma, hematuria TECHNIQUE: Helical axial images of the abdomen and pelvis were obtained and displayed. Automated dose lowering techniques and/or adjustment according to patient size were utilized for this exam. Dedicated images of the lumbar spine were obtained. This exam was performed with intravenous contrast. COMPARISON: Comparison is made to CT abdomen pelvis 10/20/[address] pelvis 01/12/2023 FINDINGS: Lower chest: Atelectasis is in the right lung base. Liver: Unremarkable. No focal lesions are seen. Gallbladder and biliary tree: Cholelithiasis is seen without evidence of cholecystitis. No intra- or extrahepatic biliary ductal dilation. Pancreas: Unremarkable, no focal lesions. Spleen: Calcifications are noted in the spleen compatible with prior granulomatous disease. Adrenals: Unremarkable. Kidneys and ureters: Renal cysts are seen. There is a 15 mm stone in the left collecting system and ureteral thickening at this level is unchanged from prior exam. Bladder: Diffuse homogeneous wall thickening is seen. Reproductive organs: Prostatomegaly is seen. Bowel: The appendix is normal. Lymph nodes Retroperitoneal: Unremarkable. Pelvic: Unremarkable. Mesenteric: Unremarkable. Peritoneum: Normal. Vessels: Atherosclerotic calcifications are seen. Abdominal wall: Umbilical hernia contains a small loop of bowel Bones: Degenerative changes in the visualized spine. S-shaped scoliosis is seen. IMPRESSION: Nonobstructive stones are seen with thickening of the left collecting system, similar to prior exam. Otherwise no acute abnormalities. No evidence of acute fracture. ACT 112: Negative or not required by law. Electronically signed by: Luis Rajan M.D. 07/03/2023 12:30 PM Shoulder X-Ray 07/06/23 13:42 RIGHT SHOULDER 3 VIEWS CLINICAL HISTORY: Right shoulder pain. FINDINGS: 3 views of the right shoulder are correlated with right humeral radiographs dated 03/12/2023. The skeletal structures are osteopenic. There is no radiographic evidence of fracture or dislocation. Productive degenerative change is seen at the acromioclavicular joint. Moderate to severe osteoarthritic change is seen at the glenohumeral articulation with bony sclerosis and overgrowth. Degenerative sclerosis is also seen in the greater tuberosity of the humeral head. The overlying soft tissues are within normal limits. The imaged right lung parenchyma appears clear noting a calcified granuloma. Scoliosis is partially visualized in the thoracic spine. IMPRESSION: Osteopenia and arthritic change as above with no acute bony abnormality identified. Electronically signed by: Hernan Arguello M.D. 07/06/2023 3:40 PM
[2023-07-08] MEDS: FUROSEMIDE 40 MG/4 ML VIAL IV ONE (17:42)
--- NOTE | 2023-07-08 19:23 | Hospitalist Progress Note ---
Date of Service July 08, 2023 Assessment & Plan (1) Ambulatory dysfunction: (2) Generalized weakness: (3) Hematuria: (4) Spinal stenosis: (5) Chronic hypoxic respiratory failure, on home oxygen therapy: (6) Elevated hemidiaphragm: Plan per previous hospitalist notes with addendum: Mr. Starks is an 82-year-old male with past medical significant for chronic respiratory failure with hypoxia on home oxygen, hypothyroidism, hyperlipidemia, history of hypercalcemia, granulomatous lung disease, sleep apnea, restrictive lung disease, elevated hemidiaphragm, history of cad s/p stent hypertension, chronic right-sided heart failure, Schatzki's ring of the distal esophagus, idi opathic scoliosis, osteoporosis, essential tremor, depression, abnormality of gait presents from home with fall. Patient is poor historian. Attempted to call daughter for further information, no success. 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 upon discharge Diarrhea - started yesterday AM, multiple BMs - stool pcr posit. for c. diff gene but not toxin - PO vancomycin resolved change Vanco PO to daily #Elevated CK Cr stable at this time Trend CMP and CK Hold lasix at this time IVF gentle trended down #Hypothyroidism Synthroid TSH 15, with low normal FT4; unable to get a clear sense of if he takes this medications appropriately; recently dose reduced given too tight control with TSH 0.2 Repeat OP tfts, ensure proper education of timing #Dysphagia history #Schatzki's ring Prior HH requesting speech referral Speech eval Aspiration precautions, soft diet sized #Depression #Radiculopathy -Recently Cymbalta dose increased from 30 to 60mg daily (06/21) will continue at 30mg daily in case contributing confusion/"falls" Continue citalopram #Obstructive CAD s/p acute thrombotic LAD s/p bare metal stent, September 2008 #Chronic right heart failure iso untreated EZEQUIEL 08/06/22: ECHO-LVEF normal 59% with a small-sized apical wall motion abnormality. Aortic sclerosis without stenosis. Mild MR. RV normal in size and function. -appears relatively dry -- Lasix 40 mg IV ordered For possible mild volume overload #Chronic hypoxic resp failure, on home O2 (prescribed 2L at rest, 4L exertion; 4L nocturnal) #Granulomatous lung disease #Asthma #Severe EZEQUIEL #Chronically elevated right hemidiaphragm spirometry in 2021, restrictive, moderate reduction in DLCO -VBG consistent with prior draws--compensated on cmp -Continue nocturnal O2 and O2 with exertion -Declines NIV -Continue combivent #Frequent ventricular ectopy propanolol TID (initially prescribed for tremor) monitor on tele #Hyperlipidemia. Hold Crestor iso CK elevation #Essential tremor Last followed neuro in 2018 propanolol #Bilateral rotator cuff tears left worse than right, s/p steroid injections 03/2023 reporting L shoulder pain, xray: no fractures PT/OT DVT ppx heparin sq med tele PT/OT eval Admission and Anticipated Discharge Date Admission Date: July 03, 2023 Subjective Follow-up for UTI, hematuria, etc. Seen resting in bed, not in distress, comfortable States he is having some mild dyspnea No cough, fevers or chills, sputum production Hematuria resolved No abdominal pain No other new symptoms Review of Systems Review of Systems: all noted and negative except for above Physical Exam Physical Exam: General- oriented x 3, not in distress, speaks in sentences with no effort or accessory muscle use Eyes- anicteric Neck- no JVD Lungs- clear breath sounds bilaterally, no rales/wheezes Heart- normal rate, regular rhythm; no murmurs Abdomen- normal bowel sounds, nondistended, soft, nontender Extremities- Mild pretibial edema, no calf tenderness Neuro- alert, oriented x 3; no gross focal neurologic deficits Skin- warm & dry Results & Data Results & Data Vital Signs (Past 12 Hours) Vital Signs Temp Pulse Pulse Resp BP Pulse Ox O2 Del Method 07/08/23 15:47 58 L 14 95 Nasal Cannula 07/08/23 15:11 36.5 C 65 19 136/75 95 Nasal Cannula 07/08/23 14:58 60 07/08/23 11:44 36.7 C 53 L 18 118/82 95 Nasal Cannula 07/08/23 11:30 Nasal Cannula 07/08/23 11:19 59 L 18 93 Nasal Cannula 07/08/23 08:09 36.5 C 55 L 18 113/72 92 Nasal Cannula 07/08/23 07:58 51 L 07/08/23 07:26 55 L 18 92 Nasal Cannula O2 Flow Rate 07/08/23 15:47 4 07/08/23 15:11 4 07/08/23 14:58 07/08/23 11:44 4 07/08/23 11:30 4 07/08/23 11:19 3 07/08/23 08:09 4 07/08/23 07:58 07/08/23 07:26 3 all noted and reviewed including below
[2023-07-09 07:07] LABS: Hematocrit (blood only) 41.3 % (42.0-52.0); Hemoglobin 13.8 g/dl (14.0-18.0); Mean Corpuscular Hemoglobin 31.1 pg (25.0-34.0); Mean Corpuscular Hgb Conc 33.4 g/dL (32.0-36.0); Mean Platelet Volume 9.8 fL (9.4-12.4); Platelet Count 181 K/uL (130-400); RDW Coefficient of Variation 13.7 % (11.5-14.5); RDW Standard Deviation 46.8 fL (36.4-46.3); Red Blood Count 4.44 M/uL (4.70-6.10); White Blood Count 11.13 K/ul (4.8-10.8)
[2023-07-09 07:14] LABS: BUN Creatinine Ratio 10.6 (10-20); Calcium 9.5 mg/dl (8.6-10.3); Creatinine Clr Calc Pharmacy 68.9 ml/min; Est GFR (African American) 94.7 ml/min; Est GFR (Non-African American) 81.7 ml/min; Potassium 3.7 mmol/L (3.5-5.1)
[2023-07-09 07:37] LABS: Basophils # (auto) 0.06 K/uL (0.00-0.20); Basophils % (auto) 0.5 %; Eosinophils # (auto) 0.44 K/uL (0.00-0.50); Immature Granulocytes # (auto) 0.13 K/uL (0.01-0.20); Immature Granulocytes % (auto) 1.2 %; Lymphocytes # (auto) 2.93 K/uL (1.20-3.40); Lymphocytes % (auto) 26.3 %; Monocytes # (auto) 0.87 K/uL (0.11-0.59); Monocytes % (auto) 7.8 %; Neutrophils % (auto) 60.2 %
--- NOTE | 2023-07-09 18:23 | Hospitalist Progress Note ---
Date of Service July 09, 2023 Assessment & Plan (1) Ambulatory dysfunction: (2) Generalized weakness: (3) Hematuria: (4) Spinal stenosis: (5) Chronic hypoxic respiratory failure, on home oxygen therapy: (6) Elevated hemidiaphragm: Plan per previous hospitalist notes with addendum: Mr. Starks is an 82-year-old male with past medical significant for chronic respiratory failure with hypoxia on home oxygen, hypothyroidism, hyperlipidemia, history of hypercalcemia, granulomatous lung disease, sleep apnea, restrictive lung disease, elevated hemidiaphragm, history of cad s/p stent hypertension, chronic right-sided heart failure, Schatzki's ring of the distal esophagus, idi opathic scoliosis, osteoporosis, essential tremor, depression, abnormality of gait presents from home with fall. Patient is poor historian. Attempted to call daughter for further information, no success. 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 Previously evaluated by Ortho spine in 12/2022 for similar issues, not a surgical candidate fall precautions PT/OT eval #Hematuria #Nephrolithiasis, nonobstructing #LUTS -Blood and RBC +, di -OP UA similar with hematuria noted, OP urology in 07/2023 -Bladder: Diffuse homogeneous wall thickening is seen Consulted Urology - obtain Ucultx Urine culture: Proteus Blood culture: Negative so far Hematuria resolved IV Cefepime Day 4 Transition to Bactrim p.o. upon discharge Diarrhea - started yesterday AM, multiple BMs - stool pcr posit. for c. diff gene but not toxin - PO vancomycin resolved change Vanco PO to daily #Elevated CK Cr stable at this time Trend CMP and CK Hold lasix at this time IVF gentle trended down #Hypothyroidism Synthroid TSH 15, with low normal FT4; unable to get a clear sense of if he takes this medications appropriately; recently dose reduced given too tight control with TSH 0.2 Repeat OP tfts, ensure proper education of timing #Dysphagia history #Schatzki's ring Prior HH requesting speech referral Speech eval Aspiration precautions, soft diet sized #Depression #Radiculopathy -Recently Cymbalta dose increased from 30 to 60mg daily (06/21) will continue at 30mg daily in case contributing confusion/"falls" Continue citalopram #Obstructive CAD s/p acute thrombotic LAD s/p bare metal stent, September 2008 #Chronic right heart failure iso untreated EZEQUIEL 08/06/22: ECHO-LVEF normal 59% with a small-sized apical wall motion abnormality. Aortic sclerosis without stenosis. Mild MR. RV normal in size and function. -appears relatively dry -- Lasix 40 mg IV ordered For possible mild volume overload--> Appears euvolemic today Resume Lasix 20 mg p.o. daily tomorrow #Chronic hypoxic resp failure, on home O2 (prescribed 2L at rest, 4L exertion; 4L nocturnal) #Granulomatous lung disease #Asthma #Severe EZEQUIEL #Chronically elevated right hemidiaphragm spirometry in 2021, restrictive, moderate reduction in DLCO -VBG consistent with prior draws--compensated on cmp -Continue nocturnal O2 and O2 with exertion -Declines NIV -Continue combivent #Frequent ventricular ectopy propanolol TID (initially prescribed for tremor) monitor on tele #Hyperlipidemia. Hold Crestor iso CK elevation #Essential tremor Last followed neuro in 2018 propanolol #Bilateral rotator cuff tears left worse than right, s/p steroid injections 03/2023 reporting L shoulder pain, xray: no fractures PT/OT DVT ppx heparin sq med tele PT/OT eval Transition to acute rehab when accepted Admission and Anticipated Discharge Date Admission Date: July 03, 2023 Subjective Follow-up for hematuria, etc. Seen resting in bed, comfortable, not in distress States he feels improved overall Breathing is improved No shortness of breath, cough No abdominal pain, hematuria No other new symptoms Review of Systems Review of Systems: all noted and negative except for above Physical Exam Physical Exam: General- oriented x 3, not in distress, speaks in sentences with no effort or accessory muscle use Eyes- anicteric Neck- no JVD Lungs- clear breath sounds bilaterally, no rales/wheezes Heart- normal rate, regular rhythm; no murmurs Abdomen- normal bowel sounds, nondistended, soft, nontender Extremities- no pretibial edema, no calf tenderness Neuro- alert, oriented x 3; no gross focal neurologic deficits Skin- warm & dry Results & Data Results & Data Vital Signs (Past 12 Hours) Vital Signs Temp Pulse Pulse Resp BP Pulse Ox O2 Del Method 07/09/23 16:21 36.3 C L 66 18 135/84 92 Nasal Cannula 07/09/23 15:53 73 15 93 Nasal Cannula 07/09/23 11:40 56 L 07/09/23 11:17 68 14 95 Nasal Cannula 07/09/23 09:26 Nasal Cannula 07/09/23 08:47 36.5 C 61 17 125/78 91 Nasal Cannula 07/09/23 07:34 61 17 94 Nasal Cannula O2 Flow Rate 07/09/23 16:21 2 07/09/23 15:53 2.5 07/09/23 11:40 07/09/23 11:17 3 07/09/23 09:26 2 07/09/23 08:47 2 07/09/23 07:34 2.5 all noted and reviewed including below
[2023-07-10 05:13] LABS: Calcium 9.9 mg/dl (8.6-10.3); Creatinine Clr Calc Pharmacy 71.5 ml/min; Est GFR (African American) 96.1 ml/min; Est GFR (Non-African American) 82.9 ml/min
--- NOTE | 2023-07-10 16:25 | Hospitalist Progress Note ---
Date of Service July 10, 2023 Assessment & Plan (1) Ambulatory dysfunction: (2) Generalized weakness: (3) Hematuria: (4) Spinal stenosis: (5) Chronic hypoxic respiratory failure, on home oxygen therapy: (6) Elevated hemidiaphragm: Plan per previous hospitalist notes with addendum: Mr. Starks is an 82-year-old male with past medical significant for chronic respiratory failure with hypoxia on home oxygen, hypothyroidism, hyperlipidemia, history of hypercalcemia, granulomatous lung disease, sleep apnea, restrictive lung disease, elevated hemidiaphragm, history of cad s/p stent hypertension, chronic right-sided heart failure, Schatzki's ring of the distal esophagus, idi opathic scoliosis, osteoporosis, essential tremor, depression, abnormality of gait presents from home with fall. Patient is poor historian. Attempted to call daughter for further information, no success. 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 Previously evaluated by Ortho spine in 12/2022 for similar issues, not a surgical candidate fall precautions PT/OT eval #Hematuria #Nephrolithiasis, nonobstructing #LUTS -Blood and RBC +, di -OP UA similar with hematuria noted, OP urology in 07/2023 -Bladder: Diffuse homogeneous wall thickening is seen Consulted Urology - Urine culture: Proteus Blood culture: Negative Hematuria resolved IV Cefepime Day 5 Transition to Bactrim p.o. upon discharge Diarrhea - started yesterday AM, multiple BMs - stool pcr posit. for c. diff gene but not toxin - PO vancomycin resolved change Vanco PO to daily #Elevated CK Cr stable at this time Trend CMP and CK Hold lasix at this time IVF gentle trended down #Hypothyroidism Synthroid TSH 15, with low normal FT4; unable to get a clear sense of if he takes this medications appropriately; recently dose reduced given too tight control with TSH 0.2 Repeat OP tfts, ensure proper education of timing #Dysphagia history #Schatzki's ring Prior HH requesting speech referral Speech eval Aspiration precautions, soft diet sized #Depression #Radiculopathy -Recently Cymbalta dose increased from 30 to 60mg daily (06/21) will continue at 30mg daily in case contributing confusion/"falls" Continue citalopram #Obstructive CAD s/p acute thrombotic LAD s/p bare metal stent, September 2008 #Chronic right heart failure iso untreated EZEQUIEL 08/06/22: ECHO-LVEF normal 59% with a small-sized apical wall motion abnormality. Aortic sclerosis without stenosis. Mild MR. RV normal in size and function. -appears relatively dry -- Lasix 40 mg IV ordered For possible mild volume overload--> Appears euvolemic today Resume Lasix 20 mg p.o. daily #Chronic hypoxic resp failure, on home O2 (prescribed 2L at rest, 4L exertion; 4L nocturnal) #Granulomatous lung disease #Asthma #Severe EZEQUIEL #Chronically elevated right hemidiaphragm spirometry in 2021, restrictive, moderate reduction in DLCO -VBG consistent with prior draws--compensated on cmp -Continue nocturnal O2 and O2 with exertion -Declines NIV -Continue combivent #Frequent ventricular ectopy propanolol TID (initially prescribed for tremor) monitor on tele #Hyperlipidemia. Hold Crestor iso CK elevation #Essential tremor Last followed neuro in 2018 propanolol #Bilateral rotator cuff tears left worse than right, s/p steroid injections 03/2023 reporting L shoulder pain, xray: no fractures PT/OT DVT ppx heparin sq med tele PT/OT eval Transition to acute rehab when accepted Admission and Anticipated Discharge Date Admission Date: July 03, 2023 Subjective follow-up for hematuria, UTI, etc. Seen resting in bed, comfortable, not in distress States he feels fine overall No hematuria No shortness of breath or cough No other new symptoms Review of Systems Review of Systems: all noted and negative except for above Physical Exam Physical Exam: General- oriented x 3, not in distress, speaks in sentences with no effort or accessory muscle use Eyes- anicteric Neck- no JVD Lungs- clear breath sounds bilaterally, no rales/wheezes Heart- normal rate, regular rhythm; no murmurs Abdomen- normal bowel sounds, nondistended, soft, No tenderness Extremities- no pretibial edema, no calf tenderness Neuro- alert, oriented x 3; no gross focal neurologic deficits Skin- warm & dry Results & Data Results & Data Vital Signs (Past 12 Hours) Vital Signs Temp Pulse Pulse Resp BP BP Pulse Ox 07/10/23 16:02 62 07/10/23 15:47 36.4 C L 57 L 17 143/86 H 93 07/10/23 14:21 62 16 93 07/10/23 11:43 36.3 C L 62 18 122/78 93 07/10/23 11:14 66 16 92 07/10/23 08:12 36.4 C L 68 16 131/78 91 07/10/23 07:32 67 O2 Del Method O2 Flow Rate 07/10/23 16:02 07/10/23 15:47 Nasal Cannula 2 07/10/23 14:21 Nasal Cannula 2 07/10/23 11:43 Nasal Cannula 2 07/10/23 11:14 Nasal Cannula 2 07/10/23 08:12 Nasal Cannula 2 07/10/23 07:32 all noted and reviewed including below
[2023-07-10] MEDS: FUROSEMIDE 20 MG TAB PO SCH (17:49)
[2023-07-11 08:07] LABS: BUN Creatinine Ratio 14.1 (10-20); Calcium 9.8 mg/dl (8.6-10.3); Creatinine Clr Calc Pharmacy 68.9 ml/min; Est GFR (African American) 94.7; Est GFR (Non-African American) 81.7
--- NOTE | 2023-07-11 10:40 | XRay Report ---
XR chest 1V portable CLINICAL HISTORY: Shortness of breath. COMPARISON STUDY: Chest radiograph July 03, 2023. Chest CT October 14, 2022. FINDINGS: Elevation of the right hemidiaphragm is unchanged. Thoracolumbar spine scoliosis is again n oted. There is no pneumothorax or pleural effusion. There is no evidence for pulmonary edema. Right b asilar opacity favors atelectasis. No consolidation is identified to suggest pneumonia. A calcified g ranuloma within the right lower lobe is incidentally noted. Cardiomediastinal silhouette is stable. IMPRESSION: No acute findings. No significant change in appearance of the chest. ACT 112: Negative or not required by law. Electronically signed by: Abimael Feldman M.D. 07/11/2023 10:39 AM
--- NOTE | 2023-07-11 15:07 | Hospitalist Progress Note ---
Date of Service July 11, 2023 Assessment & Plan (1) Ambulatory dysfunction: (2) Generalized weakness: (3) Hematuria: (4) Spinal stenosis: (5) Chronic hypoxic respiratory failure, on home oxygen therapy: (6) Elevated hemidiaphragm: Plan per previous hospitalist notes with addendum: Mr. Starks is an 82-year-old male with past medical significant for chronic respiratory failure with hypoxia on home oxygen, hypothyroidism, hyperlipidemia, history of hypercalcemia, granulomatous lung disease, sleep apnea, restrictive lung disease, elevated hemidiaphragm, history of cad s/p stent hypertension, chronic right-sided heart failure, Schatzki's ring of the distal esophagus, idi opathic scoliosis, osteoporosis, essential tremor, depression, abnormality of gait presents from home with fall. Patient is poor historian. Attempted to call daughter for further information, no success. 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 Previously evaluated by Ortho spine in 12/2022 for similar issues, not a surgical candidate fall precautions PT/OT eval #Hematuria #Nephrolithiasis, nonobstructing #LUTS -Blood and RBC +, di -OP UA similar with hematuria noted, OP urology in 07/2023 -Bladder: Diffuse homogeneous wall thickening is seen Consulted Urology - Urine culture: Proteus Blood culture: Negative Hematuria resolved IV Cefepime Day 6 Transition to Bactrim p.o. upon discharge Diarrhea - started yesterday AM, multiple BMs - stool pcr posit. for c. diff gene but not toxin - PO vancomycin resolved change Vanco PO to daily #Elevated CK Cr stable at this time Trend CMP and CK Hold lasix at this time IVF gentle trended down #Hypothyroidism Synthroid TSH 15, with low normal FT4; unable to get a clear sense of if he takes this medications appropriately; recently dose reduced given too tight control with TSH 0.2 Repeat OP tfts, ensure proper education of timing #Dysphagia history #Schatzki's ring Prior HH requesting speech referral Speech eval Aspiration precautions, soft diet sized #Depression #Radiculopathy -Recently Cymbalta dose increased from 30 to 60mg daily (06/21) will continue at 30mg daily in case contributing confusion/"falls" Continue citalopram #Obstructive CAD s/p acute thrombotic LAD s/p bare metal stent, September 2008 #Chronic right heart failure iso untreated EZEQUIEL 08/06/22: ECHO-LVEF normal 59% with a small-sized apical wall motion abnormality. Aortic sclerosis without stenosis. Mild MR. RV normal in size and function. -appears relatively dry -- Lasix 40 mg IV ordered For possible mild volume overload--> Appears euvolemic today Resume Lasix 20 mg p.o. daily #Chronic hypoxic resp failure, on home O2 (prescribed 2L at rest, 4L exertion; 4L nocturnal) #Granulomatous lung disease #Asthma #Severe EZEQUIEL #Chronically elevated right hemidiaphragm spirometry in 2021, restrictive, moderate reduction in DLCO -VBG consistent with prior draws--compensated on cmp -Continue nocturnal O2 and O2 with exertion -Declines NIV -Continue combivent Chest x-ray today: No pleural effusion, edema, pneumonia Continue baseline 3 L of O2 via nasal cannula #Frequent ventricular ectopy propanolol TID (initially prescribed for tremor) monitor on tele #Hyperlipidemia. Hold Crestor iso CK elevation #Essential tremor Last followed neuro in 2018 propanolol #Bilateral rotator cuff tears left worse than right, s/p steroid injections 03/2023 reporting L shoulder pain, xray: no fractures PT/OT DVT ppx heparin sq med tele PT/OT eval Transition to acute rehab when accepted Admission and Anticipated Discharge Date Admission Date: July 03, 2023 Subjective Follow-up for hematuria, etc. Seen resting in bed, comfortable, not in distress States he is having some mild dyspnea, requests O2 supplement to be increased from 2, to 3 L which is his baseline at home Denies cough, sputum production No hematuria No other new symptom Review of Systems Review of Systems: all noted and negative except for above Physical Exam Physical Exam: General- oriented x 3, not in distress, speaks in sentences with no effort or accessory muscle use Eyes- anicteric Neck- no JVD Lungs- clear breath sounds bilaterally, No rales or wheezing Heart- normal rate, regular rhythm; no murmurs Abdomen- normal bowel sounds, nondistended, soft, nontender Extremities- no pretibial edema, no calf tenderness Neuro- alert, oriented x 3; no gross focal neurologic deficits Skin- warm & dry Results & Data Results & Data Vital Signs (Past 12 Hours) Vital Signs Temp Pulse Pulse Resp BP BP Pulse Ox 07/11/23 14:48 62 18 93 07/11/23 11:41 36.3 C L 62 17 123/80 93 07/11/23 10:53 60 18 94 07/11/23 07:43 36.4 C L 61 18 123/78 93 07/11/23 07:25 07/11/23 07:22 75 18 95 07/11/23 05:50 68 O2 Del Method O2 Flow Rate 07/11/23 14:48 Nasal Cannula 3 07/11/23 11:41 Nasal Cannula 2 07/11/23 10:53 Nasal Cannula 3 07/11/23 07:43 Nasal Cannula 2 07/11/23 07:25 Nasal Cannula 2 07/11/23 07:22 Nasal Cannula 2 07/11/23 05:50 all noted and reviewed including below
[2023-07-12 06:33] LABS: BUN Creatinine Ratio 18.2 (10-20); Calcium 10.1 mg/dl (8.6-10.3); Creatinine Clr Calc Pharmacy 66.2 ml/min; Est GFR (African American) 93.4 ml/min; Est GFR (Non-African American) 80.6 ml/min
--- NOTE | 2023-07-12 09:02 | Hospitalist Progress Note ---
Date of Service July 12, 2023 Assessment & Plan (1) Ambulatory dysfunction: (2) Generalized weakness: (3) Hematuria: (4) Spinal stenosis: (5) Chronic hypoxic respiratory failure, on home oxygen therapy: (6) Elevated hemidiaphragm: Plan per previous hospitalist notes with addendum: Mr. Starks is an 82-year-old male with past medical significant for chronic respiratory failure with hypoxia on home oxygen, hypothyroidism, hyperlipidemia, history of hypercalcemia, granulomatous lung disease, sleep apnea, restrictive lung disease, elevated hemidiaphragm, history of cad s/p stent hypertension, chronic right-sided heart failure, Schatzki's ring of the distal esophagus, idi opathic scoliosis, osteoporosis, essential tremor, depression, abnormality of gait presents from home with fall. Patient is poor historian. Attempted to call daughter for further information, no success. 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 upon discharge To complete 10-day course Monitor renal function while on Bactrim Diarrhea - started yesterday AM, multiple BMs - stool pcr posit. for c. diff gene but not toxin - PO vancomycin resolved change Vanco PO to dailyFor DVT prophylaxis while on antibiotics #Elevated CK Resolved Given IV fluid #Hypothyroidism Synthroid TSH 15, with low normal FT4; unable to get a clear sense of if he takes this medications appropriately; recently dose reduced given too tight control with TSH 0.2 Repeat OP tfts, ensure proper education of timing #Dysphagia history #Schatzki's ring Prior HH requesting speech referral Speech eval Aspiration precautions, soft diet sized #Depression #Radiculopathy -Recently Cymbalta dose increased from 30 to 60mg daily (06/21) will continue at 30mg daily in case contributing confusion/"falls" Continue citalopram #Obstructive CAD s/p acute thrombotic LAD s/p bare metal stent, September 2008 #Chronic right heart failure iso untreated EZEQUIEL 08/06/22: ECHO-LVEF normal 59% with a small-sized apical wall motion abnormal ity. Aortic sclerosis without stenosis. Mild MR. RV normal in size and function. -appears relatively dry -- Lasix 40 mg IV ordered For possible mild volume overload Resume Lasix 20 mg p.o. daily #Chronic hypoxic resp failure, on home O2 (prescribed 2L at rest, 4L exertion; 4L nocturnal) #Granulomatous lung disease #Asthma #Severe EZEQUIEL #Chronically elevated right hemidiaphragm spirometry in 2021, restrictive, moderate reduction in DLCO -VBG consistent with prior draws--compensated on cmp -Continue nocturnal O2 and O2 with exertion -Declines NIV -Continue combivent Repeat Chest x-ray: No pleural effusion, edema, pneumonia Continue baseline 3 L of O2 via nasal cannula #Frequent ventricular ectopy propanolol TID (initially prescribed for tremor) monitor on tele #Hyperlipidemia. Hold Crestor iso CK elevation #Essential tremor Last followed neuro in 2018 propanolol #Bilateral rotator cuff tears left worse than right, s/p steroid injections 03/2023 reporting L shoulder pain, xray: no fractures PT/OT DVT ppx heparin sq med tele PT/OT eval Transition to acute rehab when accepted Admission and Anticipated Discharge Date Admission Date: July 03, 2023 Subjective Follow-up for hematuria, UTI, etc. Seen resting in bed side chair, comfortable, not in distress On 2 L of oxygen via nasal cannula which is his baseline States he feels much better today No shortness of breath, cough, sputum production, fevers or chills No hematuria, problems with urination No other new symptoms States he is ready for discharge to acute rehab Review of Systems Review of Systems: all noted and negative except for above Physical Exam Physical Exam: General- oriented x 3, not in distress, speaks in sentences with no effort or accessory muscle use Eyes- anicteric Neck- no JVD Lungs- clear breath sounds bilaterally, no rales/wheezes Heart- normal rate, regular rhythm; no murmurs Abdomen- normal bowel sounds, nondistended, soft, nontender Extremities- no pretibial edema, no calf tenderness Neuro- alert, oriented x 3; no gross focal neurologic deficits Skin- warm & dry Results & Data Results & Data Vital Signs (Past 12 Hours) Vital Signs Temp Pulse Pulse Resp BP BP Pulse Ox 07/12/23 07:58 36.7 C 61 17 116/75 93 07/12/23 07:55 63 16 93 07/12/23 07:05 07/12/23 06:00 58 L 07/12/23 04:00 36.6 C 65 18 125/77 93 07/11/23 23:00 36.5 C 64 18 135/80 93 O2 Del Method O2 Flow Rate 07/12/23 07:58 Nasal Cannula 2 07/12/23 07:55 Nasal Cannula 2 07/12/23 07:05 Nasal Cannula 3 07/12/23 06:00 07/12/23 04:00 Nasal Cannula 3 07/11/23 23:00 Nasal Cannula 3 all noted and reviewed including below
[2023-07-13 08:51] LABS: BUN Creatinine Ratio 18.2 (10-20); Creatinine Clr Calc Pharmacy 66.4 ml/min; Est GFR (African American) 93.4 ml/min; Est GFR (Non-African American) 80.6 ml/min
--- NOTE | 2023-07-13 15:09 | Discharge Summary ---
Date of Service July 13, 2023 Admission HPI Per Admitting Provider Mr. Starks is an 82-year-old male with past medical significant for chronic respiratory failure with hypoxia on home oxygen, hypothyroidism, hyperlipidemia, history of hypercalcemia, granulomatous lung disease, sleep apnea, restrictive lung disease, elevated hemidiaphragm, history of cad s/p stent hypertension, chronic right-sided heart failure, Schatzki's ring of the distal esophagus, idiopathic scoliosis, osteoporosis, essential tremor, depression, abnormality of gait presented to [facility] ED due to fall. Patient is adamant that it was not a fall, but rather a slow decent to the ground in which he could not stand. He states that he was on the ground for approximately six hours attempting to stand until deciding to call EMS. He denies loss of consciousness, chest pain, palpitations, or other symptoms. He currently lives alone and has neighbors who check in on him periodically. His daughter is out of state and per OP records is attempting to coordinate assisted living. Patient denies any acute concerns, reports feeling exhausted because he didn't sleep well after being on the ground. He states he manages his own prescriptions, but is poor historian falling asleep mid exam. Patient focused on left shoulder pain, for which he received steroid injections 03/2023. Patient denies any respiratory concerns. History of admission in 12/2022 for fall with discharge to [facility] home health thereafter. Home health services discontinued 04/2023. In the ED, vitals were notable for BP of 120-130s HR of high 50s-60s, and O2 sat of high 90s on 3L Imaging revealed CTH without hemorrhage, stable C spine, stable CXR read independently with stable right hemidiaphragm elevation and atelectasis/scarring as compared to prior (stable); bladder wallthickening Labs with CK 539, bnp 77, TSH 15.212, Free T4 0.79, UA RBC and blood++ no bacteria no relflex to culture EKG NSR, QtC 402 ED interventions: NS, lidocaine patch Patient to be admitted to [facility] for further evaluation and management of ambulatory dysfunction, weakness, and hematuria. Admission Exam Per Admitting Provider GENERAL APPEARANCE: AxOx1-2 frail older man, conversational and pleasant, falls asleep mid conversation , no acute distress. HEENT: NC, AT. MMM. EOMI, clear conjunctiva, oropharynx clear. NECK: Supple without lymphadenopathy. No stiffness or restricted ROM. HEART: Normal rate and regular rhythm, normal S1/S1, no m/r/g LUNGS: CTAB, moving air well. No crackles or wheezes are heard. ABDOMEN: Soft, nontender, nondistended with good bowel sounds heard. EXTREMITIES: Without cyanosis, clubbing or edema. NEUROLOGICAL: Grossly nonfocal. Alert and oriented to self and "hospital" , moving all 4 extremities. strength 4/5 upper, 3/5 lower extremities, CN not formally tested but appear grossly intact Skin: Warm and dry without any rash. Principal Diagnosis #Ambulatory dysfunction #Severe thoracolumbar scoliosis #Lumbar stenosis Discharge Exam General- oriented x 3, not in distress, speaks in sentences with no effort or accessory muscle use Eyes- anicteric Neck- no JVD Lungs- clear breath sounds bilaterally, no rales/wheezes Heart- normal rate, regular rhythm; no murmurs Abdomen- normal bowel sounds, nondistended, soft, nontender Extremities- no pretibial edema, no calf tenderness Neuro- alert, oriented x 3; no gross focal neurologic deficits Skin- warm & dry Discharge Data Allergies Allergy/AdvReac Type Severity Reaction Status Date / Time tramadol AdvReac Intermediate Hallucinati Verified 03/12/23 02:38 ng grapefruit AdvReac Unknown WAS TOLD Verified 03/12/23 02:38 NOT TO TAKE BECAUSE OF CHOLESTROL PILL. Consultations 07/03/23 12:50 ED Decision to Admit Stat 07/03/23 14:53 Consult Urology Routine 07/07/23 18:46 Consult Orthopedic Surgery Routine Ordered Studies 07/03/23 07:49 CT cervical spine wo con Stat CT head/brain wo con Stat 07/03/23 11:40 CT abd pelvis IV con only Stat CT lumbar spine w con Stat Hospital Course (1) Ambulatory dysfunction: (2) Generalized weakness: (3) Hematuria: (4) Spinal stenosis: (5) Chronic hypoxic respiratory failure, on home oxygen therapy: (6) Elevated hemidiaphragm: Plan Mr. Starks is an 82-year-old male with past medical significant for chronic respiratory failure with hypoxia on home oxygen, hypothyroidism, hyperlipidemia, history of hypercalcemia, granulomatous lung disease, sleep apnea, restrictive lung disease, elevated hemidiaphragm, history of cad s/p stent hypertension, chronic right-sided heart failure, Schatzki's ring of the distal esophagus, idiopathic scoliosis, osteoporosis, essential tremor, depression, abnormality of gait presents from home with fall. 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 for c. diff gene but not toxin - PO vancomycin resolved at discharge. change Vanco PO to dailyFor DVT prophylaxis while on antibiotics #Elevated CK Resolved Given IV fluid #Hypothyroidism Synthroid TSH 15, with low normal FT4; unable to get a clear sense of if he takes this medications appropriately; recently dose reduced given too tight control with TSH 0.2 Repeat OP tfts, ensure proper education of timing #Dysphagia history #Schatzki's ring Prior HH requesting speech referral Speech eval Aspiration precautions, soft diet sized #Depression #Radiculopathy -Recently Cymbalta dose increased from 30 to 60mg daily (06/21) will continue at 30mg daily in case contributing confusion/"falls" Continue citalopram Please note the above document was generated using voice recognition software. It may contain grammatical, syntax or spelling errors. Any formal questions or concerns about the content, text or information contained within the body of this dictation should be directly addressed to the provider for clarification Total Time Total Time Spent Total Time Spent (In Minutes): 45 Total Time Includes: Examination of the Patient, Discharge Planning, Medication Reconciliation, Communication With Other Providers and Other Discharge Plan Discharge Items Patient Disposition: Transfer [facility] Reason For Visit: WEAKNESS, FTT Discharge Diagnosis: Ambulatory dysfunction Urine tract infection Activity: Resume your previous activity Non-emergency contact: Primary Care Provider Call non-emergency contact if: you have any medication questions and your symptoms worsen Follow-up/Referrals: Jennifer Sarkar MD [Primary Care Provider] - Diet: Regular Addtl Attending Provider Instructions: You were admitted to the hospital due to a fall. You underwent PT OT evaluation during the hospitalization. They recommend that you go to rehab. You are found to have urinary tract infection during the hospitalization. You are treated with antibiotics during the hospitalization. Pending Studies at Discharge: No Stand-Alone Forms: My [facility] Skilled Items Patient informed of condition?: Yes DNR: No Discharge Level of Care: Skilled Communicable Disease: No Discharge Prognosis: Stable Lines: None Urinary Catheter: No Medications and DC Order Prescriptions: New acetaminophen [Tylenol Extra Strength] 500 mg Tablet 1,000 mg PO Q8H PRN (Reason: fever or pain) Qty: 90 0RF Continued citalopram 40 mg Tablet 20 mg PO QAM Qty: 30 0RF clopidogrel [Plavix] 75 mg Tablet See Rx Instructions .ROUTE .COMPLEX Qty: 30 0RF Rx Instructions: never filled with pharmacy 07/03/23 pantoprazole 20 mg tablet,delayed release (DR/EC) 20 mg PO DAILYBB Qty: 30 0RF tamsulosin 0.4 mg capsule 0.4 mg PO HS Qty: 30 0RF benzonatate 100 mg capsule 100 mg PO TID PRN (Reason: Cough) Qty: 90 0RF Rx Instructions: filled back in nov 2022 nitroglycerin 0.4 mg Tablet, Sublingual 1 tab Sublingual UD PRN (Reason: Angina) Qty: 30 0RF Rx Instructions: never picked up NEEDED FOR CHEST PAIN : ONE TABLET UNDER THE TONGUE EVERY 5 MINUTES X THREE DOSES. montelukast [Singulair] 10 mg Tablet 10 mg PO QAM Qty: 30 0RF albuterol sulfate 90 mcg/actuation HFA aerosol inhaler 2 puff INHALATION Q6H PRN (Reason: Shortness Of Breath Or Wheezing) Qty: 8.5 0RF Rx Instructions: on hold at pharmacy. hasnt filled for some time propranolol 20 mg Tablet 20 mg PO TID Qty: 90 0RF levothyroxine 112 mcg tablet 112 mcg PO DAILYBB Qty: 30 0RF rosuvastatin 5 mg tablet 5 mg PO QAM Qty: 30 0RF duloxetine 30 mg capsule,delayed release(DR/EC) 60 mg PO QAM Qty: 30 0RF Saline Nasal (aloe vera) Gel 1 applic intranasal BID PRN (Reason: Dry Nasal Passages) Qty: 14.1 0RF Rx Instructions: otc unable to verify ipratropium-albuterol 20-100 mcg/actuation Mist 1 puff INHALATION QID Qty: 4 0RF Rx Instructions: unable to verify with pharmacy 07/03/23 space evenly during waking hours Changed furosemide 20 mg tablet 20 mg PO QAM Qty: 30 0RF Discontinued acetaminophen 500 mg Tablet 1,000 mg PO Q6H PRN (Reason: Pain) Rx Instructions: otc unable to verify MAY TAKE A THIRD DOSE IN BETWEEN oxycodone 5 mg Tablet 5 mg PO Q8H PRN (Reason: pain) Qty: 10 0RF Rx Instructions: filled mar 13 2023 Discharge Orders: Discharge Order (Routine); Ordered 07/13/23 Ordered By: Evan Calix Admission Data Admit Date/Time: 07/03/23 13:41 Attending Provider: Evan Calix Admit Provider: Christiane Bean Primary Care Provider: Jennifer Sarkar Other Providers: Christiane Bean; [facility]; [place]; Clarke Bernal; Norberto Brumfield; Jose Oh; Yeny Melendrez; Cecilio Colin; Alejandrina Humphries; Demarcus Henry; Fernando Ro; Job Juarez; El Judge; Fernando Trejo; Marvin Rocha; Gordon Reyes; Hussein Baird; Júnior Tay; Alejandrina Merida; Jose Bowden Adam M.; Fawad Alfaro Lynn; Bebo Madrigal; Romero rBadshaw; Gypsy Linares; Michael Hernandez; Lucille Weaver Other Interventions: Discharge Summary Assessment (RN) Last Done: 07/13/23 11:13
== END 2023-07-13 15:54 | DRG 552 ==
LOC: ED 07:37 → SUATTDRO 13:41 → 2W 13:41

== ENCOUNTER 2023-10-28 19:20 | Observation (INO) ==
--- NOTE | 2023-10-28 19:41 | Emergency Department Note ---
Impression & Plan Fall, Dizziness, Chronic respiratory failure ED Provider Note Provider: El Roach MD DATE OF SERVICE: 10/28/2023 CHIEF COMPLAINT: Fall HISTORY OF PRESENT ILLNESS: Patient is a 83-year-old gentleman past medical history of chronic hypoxic respiratory failure on 3 to 4 L of oxygen, COPD, kidney stones, and heart failure presenting here today via ambulance after a fall. Went to the dining with finished dinner was coming out. Was just outside and felt little weak and dizzy and held onto one of the post. Evidently a pacifier came by and patient became weak and fell to the ground. Denies loss of consciousness but not real good clear historian exactly what happened. States did hit the back of his head and has bit of soreness there. Denies significant pain elsewise in his body. Denies feeling significant short of breath at this time or having recent fever. Did have some outpatient blood work he reports last several days. Does takes Lasix in relation to some swelling of his lower leg which is chronic but may be a little bit worse today. Patient reports he just 1 to make sure his head was okay has had a little bit of soreness there in the fall. Patient with some chronic knee and shoulder pain by his report. PAST MEDICAL HISTORY: As noted above MEDICATIONS: Reviewed home medications SOCIAL HISTORY: Not currently smoking PHYSICAL EXAM: GENERAL: alert and oriented in no acute distress on stretcher Head: normocephalic and atraumatic of the low bit of soreness to the posterior occiput. EYES: No injection, discharge or icterus. PERRL, EOMI. NECK: Trachea midline. Supple. ENT: Mucous membranes pink and moist. LUNGS: Airway patent. No retractions. Breath sounds coarse slight diminished in the bases HEART: Regular rate and rhythm. No chest wall tenderness ABDOMEN: Soft and non-tender, without guarding or rebound. Stable pelvis, no significant flank pain SKIN: Acyanotic, warm, dry, without rashes EXTREMITIES: Without swelling, tenderness or deformity of the upper extremities 2+ edema of the lower extremities without significant tenderness here. NEUROLOGICAL: No focal deficits moving all extremities. No aphasia. No facial droop or slurred speech. EK bpm normal sinus rhythm. No PVC or PAC. No acute ST segment elevation or depression with a bit of baseline artifact. QTc 414. CONTINUOUS CARDIAC MONITORING: was ordered and showed a heart rate of 60s to 70s bpm in sinus rhythm GCS 15. 1 view chest x-ray per my interpretation: What appears to be a little bit of right basilar effusion vs consolidation. No free air. Scoliosis notable. Patient's laboratory studies and imaging reviewed. Differential includes Fracture, dislocation, contusion, intra-abdominal, pneumothorax, intrathoracic, intracranial, neurologic, compartment syndrome, rhabdomyolysis, as well as other pathologies. IMPRESSION/MEDICAL DECISION MAKING: Patient made a trauma alert due to unknown use of anticoagulants. Did fall and hit his head but no LOC clearly reported. Had some dizziness. Baseline oxygen little bit hypoxic. Does seem to have some swelling of the lower legs on exam. Will send for CT imaging including CT of the chest to exclude PE underlying here as well. Doubt any significant thoracic pelvic or intra-abdominal trauma. No significant evidence of compartment syndrome or significant extremity injury. Bladder care with a very minimal leukocytosis 12.2 nonspecific. No anemia. Normal platelet count. No severe electrolyte abnormalities with chronic carbon oxide elevation related to his respiratory issues likely. Normal creatinine. No evidence of elevated troponin, BMP, or LFTs. Respiratory viral panel negative. CT of the head and cervical spine per radiology report without evidence of acute fracture or bleed. Given that the patient did have this dizziness episode and his chronic respiratory issues and the swelling of his legs CT of the chest to exclude PE was completed. Does appear little bit fluid overloaded but not in severe failure given the BNP is normal. CT angiogram of the chest per radiology report without evidence of PE with atelectasis in the bases. Discussed with the patient findings. He was given some Tylenol for his chronic knee and shoulder pain. Provided reassurance regarding imaging findings. Patient lives by himself. States he has had a little bit of dizziness before. I am concerned given the dizziness episode tonight and his ability to get up several steps at home and function at home tonight. Again I do question if there may have been some presyncopal component to this as well and feel further cardiac monitoring is warranted. Patient was agreeable and hospitalist was contacted for further observation. DIAGNOSIS: Fall, chronic respiratory failure DISPOSITION: Hospitalist will evaluate Patient was agreeable with this plan. Past Med/Surg History Problem List (Updated 10/29/23 @ 00:30 by El Roach M.D.) Chronic respiratory failure (Acute) Dizziness (Acute) Fall (Acute) Kidney stones ONE PRESENT/NO PROBLEMS WITH Hematuria Ambulatory dysfunction (Acute) Chronic hypoxic respiratory failure, on home oxygen therapy (Acute) Fall (Acute) Dizziness (Acute) Leukocytosis (Acute) Ambulatory dysfunction (Acute) Generalized weakness (Acute) COPD (chronic obstructive pulmonary disease) (Acute) Physical deconditioning (Acute) Dependence on supplemental oxygen (Acute) Fall Elevated hemidiaphragm Pneumonia Scoliosis Right heart failure Hypokalemia Acute and chronic respiratory failure Chronic obstructive pulmonary disease Depression Hyperlipidemia Hypertension Shortness of breath (Acute) Pulmonary edema (Acute) Acute exacerbation of CHF (congestive heart failure) (Acute) Encounter for pre-operative examination Spinal stenosis (Chronic) Encounter for pre-operative examination Acute respiratory failure (Acute) Shortness of breath Leukocytosis Aspiration into airway Medical History Bilateral shoulder pain Fall Restrictive lung disease Acute on chronic respiratory failure with hypoxemia Acute and chronic respiratory failure with hypercapnia Pulmonary embolism COVID-19 Choking Ankle swelling Infected dental caries Subperiosteal abscess of jaw Acute periodontal abscess Pain, dental Generalized muscle weakness Lower urinary tract symptoms (LUTS) Hypoxia DVT prophylaxis Chronic right-sided heart failure Fall Cervical spine fracture SOB (shortness of breath) on exertion Scoliosis Chronic back pain GERD (gastroesophageal reflux disease) Hypothyroidism On anticoagulant therapy Tinnitus of both ears Familial tremor Myocardial Infarction Sleep apnea On home oxygen therapy COPD (chronic obstructive pulmonary disease) Dyslipidemia HTN (hypertension) Hypothyroidism CAD (coronary artery disease) Surgical History Hx of oral surgery (07/05/21) History of testicular surgery History of heart artery stent History of open reduction and internal fixation (ORIF) procedure History of lithotripsy Hx of vasectomy Hx of right inguinal hernia repair History of colonoscopy History of esophagogastroduodenoscopy (EGD) History of wisdom tooth extraction History of tonsillectomy History of bilateral cataract extraction History of cardiac cath Stented coronary artery Family History Sister Family history of reaction to anesthesia nausea/vomiting Mother Family history of diabetes mellitus Social History Smoking Status: Former smoker Tobacco Type: Pipe Cigarettes Per Day: SMOKED PIPE/CIGAR AGE 21'S; Second Hand Exposure: No; Do You Dip or Chew Tobacco: No; Hx Alcohol Use: Yes Alcohol type: beer Hx Substance Use: No Preferred Language: Trinidadian Communication Ability: Effective Communication Tools: Other Visual Impairment: No Limitations Dough Mixer Helper Required: No Beliefs That Will Affect Care: None marital status: Current Living Situation: Alone Current Living Situation Comment: DOG How many Children do You have: 1 Feels Safe at Home: Yes Assistive Devices: Cane and Walker Allergies Allergies Allergy/AdvReac Type Severity Reaction Status Date / Time tramadol AdvReac Intermediate Hallucinati Verified 03/12/23 02:38 ng grapefruit AdvReac Unknown WAS TOLD Verified 03/12/23 02:38 NOT TO TAKE BECAUSE OF CHOLESTROL PILL. Home Meds Previous Rx's Medication Instructions Recorded acetaminophen 500 mg tablet 1,000 mg (2 x 500 mg) PO Q8H PRN 07/13/23 (Tylenol Extra Strength) fever or pain #90 tabs albuterol sulfate 90 mcg/actuation 2 puff inhalation Q6H PRN 07/13/23 aerosol inhaler Shortness Of Breath Or Wheezing #8.5 grams benzonatate 100 mg capsule 100 mg PO TID PRN Cough #90 caps 07/13/23 citalopram 40 mg tablet 20 mg (1/2 x 40 mg) PO QAM #30 tabs 07/13/23 clopidogrel 75 mg tablet (Plavix) See Rx Instructions .Route 07/13/23 .COMPLEX #30 tabs duloxetine 30 mg capsule,delayed 60 mg (2 x 30 mg) PO QAM Pain #30 07/13/23 release caps furosemide 20 mg tablet 20 mg PO QAM #30 tabs 07/13/23 ipratropium 20 mcg-albuterol 100 1 puff inhalation QID #4 grams 07/13/23 mcg/actuation mist for inhalation levothyroxine 112 mcg tablet 112 mcg PO DAILYBB #30 tabs 07/13/23 montelukast 10 mg tablet 10 mg PO QAM #30 tabs 07/13/23 (Singulair) nitroglycerin 0.4 mg sublingual 1 tab sublingual UD PRN Angina #30 07/13/23 tablet tabs pantoprazole 20 mg tablet,delayed 20 mg PO DAILYBB #30 tabs 07/13/23 release propranolol 20 mg tablet 20 mg PO TID #90 tabs 07/13/23 rosuvastatin 5 mg tablet 5 mg PO QAM #30 tabs 07/13/23 sodium chloride-aloe vera nasal 1 applic intranasal BID PRN Dry 07/13/23 gel (Saline Nasal (aloe vera) gel) Nasal Passages #14.1 grams tamsulosin 0.4 mg capsule 0.4 mg PO HS #30 caps 07/13/23 Results & Data (ED) Vital Signs Vital Signs - 24 hr 10/28/23 19:24 10/28/23 19:24 10/28/23 19:24 Temperature 36.5 C 36.5 C 36.5 C Temperature Source Oral Oral Pulse Rate 78 Pulse Rate from SpO2 Sensor Respiratory Rate 19 19 Respiratory Effort / Characteristics Non-Labored Spontaneous Respiratory Depth Normal Respiratory Pattern Regular Blood Pressure 120/89 Blood Pressure [Right Arm] 120/89 Blood Pressure Mean Blood Pressure Mean [Right Arm] 99 Blood Pressure Position [Right Arm] Lying Pulse Oximetry 89 L 89 L Oxygen Delivery Method Nasal Cannula Nasal Cannula Oxygen Flow Rate 3 3 Sepsis Recent Fever Within 48 Hours No Sepsis New/Unexplained Change in Mental Status N/A Sepsis Action Taken by Nursing No Action Required 10/28/23 19:24 10/28/23 19:24 10/28/23 19:27 Temperature Temperature Source Pulse Rate 79 78 Pulse Rate from SpO2 Sensor 77 Respiratory Rate 16 Respiratory Effort / Characteristics Respiratory Depth Respiratory Pattern Blood Pressure 120/89 Blood Pressure [Right Arm] Blood Pressure Mean 99 Blood Pressure Mean [Right Arm] Blood Pressure Position [Right Arm] Pulse Oximetry 89 L Oxygen Delivery Method Nasal Cannula Oxygen Flow Rate 3 Sepsis Recent Fever Within 48 Hours Sepsis New/Unexplained Change in Mental Status Sepsis Action Taken by Nursing 10/28/23 19:45 10/28/23 21:42 10/28/23 21:51 Temperature Temperature Source Pulse Rate 67 73 Pulse Rate from SpO2 Sensor 67 Respiratory Rate 19 19 Respiratory Effort / Characteristics Respiratory Depth Respiratory Pattern Blood Pressure 108/80 120/80 Blood Pressure [Right Arm] Blood Pressure Mean 89 93 Blood Pressure Mean [Right Arm] Blood Pressure Position [Right Arm] Pulse Oximetry 90 98 Oxygen Delivery Method Nasal Cannula Oxygen Flow Rate 5 Sepsis Recent Fever Within 48 Hours Sepsis New/Unexplained Change in Mental Status Sepsis Action Taken by Nursing 10/28/23 22:09 10/28/23 22:18 10/28/23 23:03 Temperature Temperature Source Pulse Rate 67 66 67 Pulse Rate from SpO2 Sensor 67 65 67 Respiratory Rate 19 23 22 Respiratory Effort / Characteristics Respiratory Depth Respiratory Pattern Blood Pressure 125/95 121/79 119/84 Blood Pressure [Right Arm] Blood Pressure Mean 105 93 95 Blood Pressure Mean [Right Arm] Blood Pressure Position [Right Arm] Pulse Oximetry 96 95 96 Oxygen Delivery Method Oxygen Flow Rate Sepsis Recent Fever Within 48 Hours Sepsis New/Unexplained Change in Mental Status Sepsis Action Taken by Nursing 10/28/23 23:34 Temperature Temperature Source Pulse Rate 66 Pulse Rate from SpO2 Sensor Respiratory Rate Respiratory Effort / Characteristics Respiratory Depth Respiratory Pattern Blood Pressure Blood Pressure [Right Arm] Blood Pressure Mean Blood Pressure Mean [Right Arm] Blood Pressure Position [Right Arm] Pulse Oximetry Oxygen Delivery Method Oxygen Flow Rate Sepsis Recent Fever Within 48 Hours Sepsis New/Unexplained Change in Mental Status Sepsis Action Taken by Nursing Laboratory Data 10/28/23 19:45 10/28/23 19:45 Lab Results 10/28/23 10/28/23 10/28/23 Range/Units 19:45 19:47 21:54 WBC 12.28 H (4.8-10.8) K/ul RBC 4.85 (4.70-6.10) M/uL Hgb 15.0 (14.0-18.0) g/dl Hct 44.5 (42.0-52.0) % MCV 91.8 (80.0-100.0) fL MCH 30.9 (25.0-34.0) pg MCHC 33.7 (32.0-36.0) g/dL RDW Std Deviation 47.0 H (36.4-46.3) fL RDW Coeff of Mannie 13.9 (11.5-14.5) % Plt Count 185 (130-400) K/uL MPV 9.4 (9.4-12.4) fL Immature Gran % (Auto) 0.9 % Neut % (Auto) 65.3 % Lymph % (Auto) 18.5 % [place] % (Auto) 11.4 % Eos % (Auto) 3.3 % Baso % (Auto) 0.6 % Neut # (Auto) 8.02 H (1.40-6.50) K/uL Lymph # (Auto) 2.27 (1.20-3.40) K/uL [place] # (Auto) 1.40 H (0.11-0.59) K/uL Eos # (Auto) 0.41 (0.00-0.50) K/uL Baso # (Auto) 0.07 (0.00-0.20) K/uL Immature Gran # (Auto) 0.11 (0.01-0.20) K/uL PT 10.6 (9.0-12.0) Seconds INR 1.0 (0.9-1.1) Sodium 136 (136-145) mmol/L Potassium 3.5 (3.5-5.1) mmol/L Chloride 94 L (98-107) mmol/L Carbon Dioxide 38 H (21-32) mmol/L Anion Gap 4 (3-11) BUN 12 (6-23) mg/dl Creatinine 1.02 (0.6-1.4) mg/dl Est Cr Clr Drug Dosing 53.6 ml/min Est GFR ( Amer) 79.0 ml/min Est GFR (Non-Af Amer) 68.1 ml/min BUN/Creatinine Ratio 11.8 (10-20) Glucose 124 H (70-99(Fasting)) mg/dl Calcium 9.9 (8.6-10.3) mg/dl Magnesium 1.9 (1.7-2.4) mg/dl Total Bilirubin 0.6 (0.2-1.0) mg/dl AST 18 (13-39) U/L ALT 12 (7-52) U/L Alkaline Phosphatase 103 (34-104) U/L Troponin I High Sens 9.9 (0-20) pg/ml B-Natriuretic Peptide 32 (0-100) pg/ml Total Protein 7.2 (6.0-8.3) gm/dl Albumin 4.4 (3.4-5.0) gm/dl Globulin 2.8 (2.5-4.0) gm/dl Albumin/Globulin Ratio 1.6 (0.9-2) Urine Color Yellow Urine Appearance Clear (Clear) Urine pH 8.0 H (4.5-7.5) Ur Specific [place] > 1.045 H (1.000-1.030) Urine Protein Negative (Negative) Urine Glucose (UA) Negative (Negative) Urine Ketones Negative (Negative) Urine Blood Trace H (Negative) Urine Nitrite Negative (Negative) Urine Bilirubin Negative (Negative) Urine Urobilinogen Negative (Negative) Ur Leukocyte Esterase Trace H (Negative) Urine WBC (Auto) 0-5 (0-5) /hpf Urine RBC (Auto) 11-20 H (0-2) /hpf U Hyaline Cast (Auto) 0-2 (0-2) /lpf U Epithel Cells (Auto) 0-2 (0-2) /hpf Urine Bacteria (Auto) None Seen (None Seen) Adenovirus (PCR) Not Detected (NotDetected) B. pertussis DNA (PCR) Not Detected (NotDetected) B.parapertussis DNA PCR Not Detected (NotDetected) C. pneumoniae DNA (PCR) Not Detected (NotDetected) Coronavirus OC43 (PCR) Not Detected (NotDetected) Coronavirus HKU1 (PCR) Not Detected (NotDetected) Coronavirus 229E (PCR) Not Detected (NotDetected) SARS-CoV-2 (PCR) Not Detected (NotDetected) Coronavirus NL63 (PCR) Not Detected (NotDetected) Human Metapneumovir PCR Not Detected (NotDetected) Influenza Type A (PCR) Not Detected (NotDetected) Influenza Type B (PCR) Not Detected (NotDetected) M. pneumoniae (PCR) Not Detected (NotDetected) Parainfluenza 1 (PCR) Not Detected (NotDetected) Parainfluenza 2 (PCR) Not Detected (NotDetected) Parainfluenza 3 (PCR) Not Detected (NotDetected) Parainfluenza 4 (PCR) Not Detected (NotDetected) RSV (PCR) Not Detected (NotDetected) Entero/Rhino (PCR) Not Detected (NotDetected) Administered Medications Discontinued Medications Acetaminophen (Acetaminophen 500 Mg Tab) 1,000 mg PO NOW STA Stop: 10/28/23 21:38 Last Admin: 10/28/23 21:44 Dose: 1,000 mg Documented By: FRANCINE Ioversol (Optiray 320 125ml) 118 ml IV ONCE ONE Stop: 10/28/23 20:41 Last Admin: 10/28/23 20:42 Dose: 118 ml Documented By: RITA Imaging Data Radiologist's Impression: Chest CTA 10/28/23 19:35 Exam(s): CTA CHEST EXAM: CT Angiography Chest With Intravenous Contrast CLINICAL HISTORY: Reason for exam: PE, fall, dizzy, chronic hypoxia. TECHNIQUE: Axial computed tomographic angiography images of the chest with intravenous contrast. CTDI is 25.35 mGy and DLP is 786.77 mGy-cm. Automated exposure control was utilized for the study. A dose lowering technique was utilized adhering to the principles of ALARA. MIP reconstructed images were created and reviewed. COMPARISON: 10/14/22 FINDINGS: Pulmonary arteries: Adequate pulmonary artery opacification. Normal caliber main pulmonary artery. No evidence of pulmonary embolism. Aorta: No acute findings. No aortic aneurysm or dissection. Lungs: Calcified right lower lobe granuloma. Calcified right upper lobe granuloma. Bilateral lower lobe atelectasis. No consolidation or mass. Pleural space: Unremarkable. No significant effusion. No pneumothorax. Heart: Unremarkable. No cardiomegaly. No significant pericardial effusion. Bones/joints: Marked thoracolumbar scoliosis with resultant thoracic cavity deformity. No acute fracture or dislocation. Soft tissues: Unremarkable. Lymph nodes: Calcified hilar lymph nodes in keeping with chronic granulomatous disease. No adenopathy by size criteria. Liver: Calcified hepatic granulomas. Gallbladder and bile ducts: Cholelithiasis. Spleen: Calcified splenic granulomas. IMPRESSION: 1. No evidence of pulmonary embolism. 2. Atelectasis. Electronically signed by: Latasha Langford M.D. 10/28/23 22:[address] 10/28/23 19:36 Exam(s): CT C SPINE EXAM: CT Cervical Spine Without Intravenous Contrast CLINICAL HISTORY: Reason for exam: Trauma. TECHNIQUE: Axial computed tomography images of the cervical spine without intravenous contrast. CTDI is 23.29 mGy and DLP is 469.02 mGy-cm. Automated exposure control was utilized for the study. A dose lowering technique was utilized adhering to the principles of ALARA. COMPARISON: No relevant prior studies available. FINDINGS: Vertebrae: Osteopenia. No acute fracture or subluxation. Discs/spinal canal/neural foramina: Multilevel disc, facet, and uncovertebral joint degeneration. Mild lower cervical central spinal canal narrowing. Varying degrees of foraminal narrowing, greatest on the right at C3-C4, C4-C5, and C5-C6. Soft tissues: Unremarkable. IMPRESSION: No acute findings in the cervical spine. Electronically signed by: Latasha Langford M.D. 10/28/23 22:[address] 10/28/23 19:36 Exam(s): CT HEAD Without Contrast IV Amt: 118ml optiray 320 EXAM: CT Head Without Intravenous Contrast CLINICAL HISTORY: Reason for exam: Trauma, hit back of head. TECHNIQUE: Axial computed tomography images of the head/brain without intravenous contrast. CTDI is 34.46 mGy and DLP is 624.41 mGy-cm. Automated exposure control was utilized for the study. A dose lowering technique was utilized adhering to the principles of ALARA. COMPARISON: No relevant prior studies available. FINDINGS: Brain: Generalized parenchymal volume loss. Periventricular and deep cerebral white matter hypoattenuation suggesting chronic small vessel ischemic change. [place]-white matter differentiation maintained. No hemorrhage, mass effect, parenchymal edema, or midline shift. Ventricles: Unremarkable. No hydrocephalus. Bones/joints: Unremarkable. No acute fracture. Soft tissues: Unremarkable. Vasculature: Intracranial atherosclerosis. Sinuses: Unremarkable as visualized. Mastoid air cells: Unremarkable as visualized. No mastoid effusion. IMPRESSION: No acute intracranial process. Electronically signed by: Latasha Langford M.D. 10/28/23 22:28 PM Discharge Plan Visit Data Chief Complaint: Trauma Stated Complaint: GLF, Hit Head, Unknown Thinners ED Provider: El Roach Discharge Problem: Fall, Dizziness, Chronic respiratory failure Patient Disposition: Being Evaluated by Hospitalist Forms Stand Alone Forms: [facility] Prescriptions Prescriptions: No Action acetaminophen [Tylenol Extra Strength] 500 mg Tablet 1,000 mg PO Q8H PRN (Reason: fever or pain) Qty: 90 0RF citalopram 40 mg Tablet 20 mg PO QAM Qty: 30 0RF clopidogrel [Plavix] 75 mg Tablet See Rx Instructions .ROUTE .COMPLEX Qty: 30 0RF Rx Instructions: never filled with pharmacy 07/03/23 pantoprazole 20 mg tablet,delayed release (DR/EC) 20 mg PO DAILYBB Qty: 30 0RF tamsulosin 0.4 mg capsule 0.4 mg PO HS Qty: 30 0RF benzonatate 100 mg capsule 100 mg PO TID PRN (Reason: Cough) Qty: 90 0RF Rx Instructions: filled back in nov 2022 nitroglycerin 0.4 mg Tablet, Sublingual 1 tab Sublingual UD PRN (Reason: Angina) Qty: 30 0RF Rx Instructions: never picked up NEEDED FOR CHEST PAIN : ONE TABLET UNDER THE TONGUE EVERY 5 MINUTES X THREE DOSES. montelukast [Singulair] 10 mg Tablet 10 mg PO QAM Qty: 30 0RF furosemide 20 mg tablet 20 mg PO QAM Qty: 30 0RF albuterol sulfate 90 mcg/actuation HFA aerosol inhaler 2 puff INHALATION Q6H PRN (Reason: Shortness Of Breath Or Wheezing) Qty: 8.5 0RF Rx Instructions: on hold at pharmacy. hasnt filled for some time propranolol 20 mg Tablet 20 mg PO TID Qty: 90 0RF levothyroxine 112 mcg tablet 112 mcg PO DAILYBB Qty: 30 0RF rosuvastatin 5 mg tablet 5 mg PO QAM Qty: 30 0RF duloxetine 30 mg capsule,delayed release(DR/EC) 60 mg PO QAM Qty: 30 0RF Saline Nasal (aloe vera) Gel 1 applic intranasal BID PRN (Reason: Dry Nasal Passages) Qty: 14.1 0RF Rx Instructions: otc unable to verify ipratropium-albuterol 20-100 mcg/actuation Mist 1 puff INHALATION QID Qty: 4 0RF Rx Instructions: unable to verify with pharmacy 07/03/23 space evenly during waking hours Referrals Referrals: Jennifer Sarkar MD [Primary Care Provider] - Discharge Problem: Fall Qualifiers: Encounter type: initial encounter Qualified Code(s): W19.XXXA - Unspecified fall, initial encounter Chronic respiratory failure Qualifiers: Respiratory failure complication: hypoxia Qualified Code(s): J96.11 - Chronic respiratory failure with hypoxia
[2023-10-28 20:00] LABS: Basophils # (auto) 0.07 K/uL (0.00-0.20); Basophils % (auto) 0.6 %; Eosinophils # (auto) 0.41 K/uL (0.00-0.50); Eosinophils % (auto) 3.3 %; Hematocrit (blood only) 44.5 % (42.0-52.0); Immature Granulocytes # (auto) 0.11 K/uL (0.01-0.20); Immature Granulocytes % (auto) 0.9 %; Lymphocytes # (auto) 2.27 K/uL (1.20-3.40); Lymphocytes % (auto) 18.5 %; Mean Corpuscular Hemoglobin 30.9 pg (25.0-34.0); Mean Corpuscular Hgb Conc 33.7 g/dL (32.0-36.0); Mean Corpuscular Volume 91.8 fL (80.0-100.0); Mean Platelet Volume 9.4 fL (9.4-12.4); Monocytes % (auto) 11.4 %; Neutrophils # (auto) 8.02 K/uL (1.40-6.50); Neutrophils % (auto) 65.3 %; Platelet Count 185 K/uL (130-400); RDW Coefficient of Variation 13.9 % (11.5-14.5); Red Blood Count 4.85 M/uL (4.70-6.10); White Blood Count 12.28 K/ul (4.8-10.8)
[2023-10-28 20:18] LABS: Albumin Globulin Ratio 1.6 (0.9-2); Albumin Level 4.4 gm/dl (3.4-5.0); BUN Creatinine Ratio 11.8 (10-20); Bilirubin,Total 0.6 mg/dl (0.2-1.0); Calcium 9.9 mg/dl (8.6-10.3); Creatinine Clr Calc Pharmacy 53.6 ml/min; Est GFR (Non-African American) 68.1 ml/min; Globulin 2.8 gm/dl (2.5-4.0); Potassium 3.5 mmol/L (3.5-5.1); Total Protein 7.2 gm/dl (6.0-8.3)
[2023-10-28 20:24] LABS: Troponin I High Sensitivity 9.9 pg/ml (0-20)
[2023-10-28 20:30] LABS: Prothrombin Time 10.6 Seconds (9.0-12.0)
[2023-10-28] MEDS: OPTIRAY 320 125ml IV ONE (20:42)
[2023-10-28 20:52] LABS: Adenovirus PCR Not Detected (NotDetected); Bordetella parapertussis PCR Not Detected (NotDetected); Bordetella pertussis PCR Not Detected (NotDetected); Chlamydia pneumoniae PCR Not Detected (NotDetected); Coronavirus 229E PCR Not Detected (NotDetected); Coronavirus CoV-2 (COVID19)PCR Not Detected (NotDetected); Coronavirus HKU1 PCR Not Detected (NotDetected); Coronavirus NL63 PCR Not Detected (NotDetected); Coronavirus OC43PCR Not Detected (NotDetected); Human Metapneumovirus PCR Not Detected (NotDetected); Influenza A PCR Not Detected (NotDetected); Influenza B PCR Not Detected (NotDetected); Mycoplasma pneumoniae PCR Not Detected (NotDetected); Parainfluenza Virus 1 PCR Not Detected (NotDetected); Parainfluenza Virus 2 PCR Not Detected (NotDetected); Parainfluenza Virus 3 PCR Not Detected (NotDetected); Parainfluenza Virus 4 PCR Not Detected (NotDetected); Respiratory Syncytial VirusPCR Not Detected (NotDetected); Rhinovirus/Enterovirus PCR Not Detected (NotDetected)
[2023-10-28] MEDS: ACETAMINOPHEN 500 MG TAB PO STA (21:44)
[2023-10-28 22:18] LABS: Appearance Urine Clear (Clear); Bacteria Urine Automated None Seen (None Seen); Bilirubin Urine Negative (Negative); Blood Urine Trace (Negative); Cast Urine Automated 0-2 /lpf (0-2); Color Urine Yellow; Epithelial Cell Urine Auto 0-2 /hpf (0-2); Glucose Urine UA Negative (Negative); Ketones Urine Negative (Negative); Leukocyte Esterase Urine Trace (Negative); Nitrite Urine Negative (Negative); Protein Urine Negative (Negative); Specific Gravity Urine > 1.045 (1.000-1.030); Urobilinogen Urine Negative (Negative); WBC Urine Automated 0-5 /hpf (0-5)
--- NOTE | 2023-10-28 22:24 | CT Scan Report ---
Exam(s): CT C SPINE EXAM: CT Cervical Spine Without Intravenous Contrast CLINICAL HISTORY: Reason for exam: Trauma. TECHNIQUE: Axial computed tomography images of the cervical spine without intravenous contrast. CTDI is 23.29 mGy and DLP is 469.02 mGy-cm. Automated exposure control was utilized for the study. A dose lowering technique was utilized adhering to the principles of ALARA. COMPARISON: No relevant prior studies available. FINDINGS: Vertebrae: Osteopenia. No acute fracture or subluxation. Discs/spinal canal/neural foramina: Multilevel disc, facet, and uncovertebral joint degeneration. Mild lower cervical central spinal canal narrowing. Varying degrees of foraminal narrowing, greatest on the right at C3-C4, C4-C5, and C5-C6. Soft tissues: Unremarkable. IMPRESSION: No acute findings in the cervical spine. Electronically signed by: Latasha Langford M.D. 10/28/23 22:23 PM
--- NOTE | 2023-10-28 22:26 | CT Scan Report ---
Exam(s): CTA CHEST EXAM: CT Angiography Chest With Intravenous Contrast CLINICAL HISTORY: Reason for exam: PE, fall, dizzy, chronic hypoxia. TECHNIQUE: Axial computed tomographic angiography images of the chest with intravenous contrast. CTDI is 25.35 mGy and DLP is 786.77 mGy-cm. Automated exposure control was utilized for the study. A dose lowering technique was utilized adhering to the principles of ALARA. MIP reconstructed images were created and reviewed. COMPARISON: 10/14/22 FINDINGS: Pulmonary arteries: Adequate pulmonary artery opacification. Normal caliber main pulmonary artery. No evidence of pulmonary embolism. Aorta: No acute findings. No aortic aneurysm or dissection. Lungs: Calcified right lower lobe granuloma. Calcified right upper lobe granuloma. Bilateral lower lobe atelectasis. No consolidation or mass. Pleural space: Unremarkable. No significant effusion. No pneumothorax. Heart: Unremarkable. No cardiomegaly. No significant pericardial effusion. Bones/joints: Marked thoracolumbar scoliosis with resultant thoracic cavity deformity. No acute fracture or dislocation. Soft tissues: Unremarkable. Lymph nodes: Calcified hilar lymph nodes in keeping with chronic granulomatous disease. No adenopathy by size criteria. Liver: Calcified hepatic granulomas. Gallbladder and bile ducts: Cholelithiasis. Spleen: Calcified splenic granulomas. IMPRESSION: 1. No evidence of pulmonary embolism. 2. Atelectasis. Electronically signed by: Latasha Langford M.D. 10/28/23 22:25 PM
--- NOTE | 2023-10-28 22:29 | CT Scan Report ---
Exam(s): CT HEAD Without Contrast IV Amt: 118ml optiray 320 EXAM: CT Head Without Intravenous Contrast CLINICAL HISTORY: Reason for exam: Trauma, hit back of head. TECHNIQUE: Axial computed tomography images of the head/brain without intravenous contrast. CTDI is 34.46 mGy and DLP is 624.41 mGy-cm. Automated exposure control was utilized for the study. A dose lowering technique was utilized adhering to the principles of ALARA. COMPARISON: No relevant prior studies available. FINDINGS: Brain: Generalized parenchymal volume loss. Periventricular and deep cerebral white matter hypoattenuation suggesting chronic small vessel ischemic change. [place]-white matter differentiation maintained. No hemorrhage, mass effect, parenchymal edema, or midline shift. Ventricles: Unremarkable. No hydrocephalus. Bones/joints: Unremarkable. No acute fracture. Soft tissues: Unremarkable. Vasculature: Intracranial atherosclerosis. Sinuses: Unremarkable as visualized. Mastoid air cells: Unremarkable as visualized. No mastoid effusion. IMPRESSION: No acute intracranial process. Electronically signed by: Latasha Langford M.D. 10/28/23 22:28 PM
--- OUTSIDE RECORDS SUMMARY | 2023-10-28 23:12 | External Medical Summary | Summary of Care ---
Author Name Unknown Organization [facility] Address [address] [place] [address] Phone [phone] Care Team Providers Care Border Patrol Agent Name Role Phone Jennifer Sarkar MD Primary Care Provider [phone] Reason for Visit * Reason Onset Date Comments Home Health 07/28/2023 Encounter Details Date Type Department Care Team (Late st Contact Info) Description 07/28/2023 Telephone General Internal Medicine [facility] [address] [facility] [place] [address] Jennifer Sarkar MD [address] [place] [address] Home Health Allergies Active Allergy Reactions Criticality Noted Date Comments Food (See Comments) 03/21/2018 Other reaction(s): WAS TOLD NOT TO TAKE grapefruit Tramadol Other (Please comment) High 10/06/2020 Hallucinations documented as of this encounter (statuses as of 10/27/2023) Medications Medication Sig Dispensed Refills Start Date End Date Status NITROGLYCERIN 0.4 MG SL SUBLIndications:Ol d myocardial infarct,S/P primary angioplasty with coronary stent,Obstructive sleep apnea (adult) (pediatric),HTN, goal to be determined 1every 5 min as needed with chest pain up to 3 doses in 15 minutes 25 Tab 11 03/08/2011 Active Zoledronic Acid 5 MG/100ML Intravenous Solution Administer 5 mg intravenously once. Yearly administration Active Acetaminophen 500 MG Oral Tablet (Tylenol)Indicatio ns:Spinal stenosis of lumbar region without neurogenic claudication Take by mouth 2 Tablets in the morning AND 2 Tablets before bedtime. ,may take 3rd dose in between --12/21/2021. 1 Tablet 12/21/2021 Active Additional Information Patient taking differently:1,000 mg [id number] PRN, ,may take 3rd dose in between --12/21/2021, Reported on 12/21/2022 Ipratropium-Albute rol 20-100 MCG/ACT Inhalation Aerosol Solution (Combivent Respimat)Indicatio ns:Granulomatous lung disease (HCC),Chronic respiratory failure with hypoxia (HCC) Inhale 1 Puff by mouth in the morning and 1 Puff at noon and 1 Puff in the evening and 1 Puff before bedtime. 4 g 2 04/06/2022 Active Albuterol Sulfate HFA 108 (90 Base) MCG/ACT Inhalation Aerosol Solution Inhale 2 Puffs by mouth every 6 hours as needed for Wheezing. 18 g 04/07/2022 Active Saline Nasal Gel (Nasogel)Indicatio ns:Chronic respiratory failure with hypoxia (HCC),Supplemental oxygen dependent,Nasal septal perforation,Nose dryness Administer into each nostril daily. For dryness(nasal septal perforation) 14 g 05/06/2022 Active Meclizine HCl 12.5 MG Oral Tablet (Antivert)Indicati ons:Dizziness,Marco A gn paroxysmal positional vertigo, unspecified laterality TAKE 1 TABLET BY MOUTH THREE TIMES A DAY NEEDED FOR DIZZINESS 30 Tablet 1 08/10/2022 Active Clopidogrel Bisulfate 75 MG Oral Tablet (pLAVix)Indication s:S/P primary angioplasty with coronary stent TAKE 1 TABLET DAILY 90 Tablet 1 02/11/2023 Active oxygen 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:Chr onic respiratory failure with hypoxia (HCC),Chronic right-sided heart failure (HCC),Granulomatou s lung disease (HCC) Use 3lpm continuous, increased to 4lpm with exertion. Changed 03/23/23 1 Each 04/10/2023 Active Propranolol HCl 20 MG Oral Tablet (Inderal) Take 1 Tablet by mouth in the morning and 1 Tablet at noon and 1 Tablet before bedtime. 270 Tablet 3 07/23/2023 Active documented as of this encounter (statuses as of 10/27/2023) Active Problems Problem Noted Date Diagnosed Date [...] as of this encounter (statuses as of 10/27/2023) Resolved Problems Problem Noted Date Diagnosed Date [...] and draped in usual sterile manner. 14 Turkmen flexible cystoscope inserted into urethra and guided [...] as of this encounter (statuses as of 10/27/2023) Immunizations Name Administration Dates Next Due COVID-19 mRNA, LNP-s, No Pre serve, 2-Dose Series (Rebelle) 05/14/2020,04/18/2020 H1N1 2009 Influenza, IM 04/22/2009 PPD 01/18/2023, 3,11/22/2022,11/13,08/20/2020,08/11/2020 Pneumococcal Conjugate Vacc, 13 Valent (Prevnar) 11/12/2014 Pneumococcal Polysaccharide PPV23 (Pneumovax) 07/20/2007 Season Influenza, Quad, PF, Adjuvanted, 65+ Yrs, IM (FLUAD) 11/29/2019 Seasonal Influenza, PF, 6 M & above, IM , (FluLaval or Fluzone) 04/06/2022,11/21/2017,11/29/2016 Seasonal Influenza, Quadriva lent Hd (Fluzone Hd) 11/22/2022,04/06/2022,12/09/2020 Seasonal Influenza, Quadriva lent, No Preserve, IM 12/25/2015,04/22/2009 Seasonal Influenza, Trivalen t, (IIV3), with Preserv, (Fluzone) 11/12/2014,11/26/2013,10/31/2012,01/20,11/10/2010,12/23/2009,12/18/2008 ,12/14/2007,01/03/2007,12/15/2005 Seasonal Influenza, Trivalen t, Adjuvanted, 65+ YRS, PF, (Fluad) 11/21/2018 TD, Preservative Free 12/14/2007 TDAP (age [...] in the Last Year Never true 03/12/2019 Utilities Answer Date Recorded Do you have trouble paying y our heating, water, or electric bill? (Adult - for ages 18 years and over) Not on file 08/09/2023 Is your family able to pay t he heat, water, or electric bill? (Household - for ages 0-17 years) Not on file 08/09/2023 Does your family have access to good internet? (Household - for ages 0-17 years) Not on file 08/09/2023 Social Connections Answer Date Recorded How often do you feel lonely or isolated from those around you? (Adult - for ages 18 years and over) Not on file 08/09/2023 Sex and Gender Information Value Date Recorded Sex Assigned at Male 09/12/2018 4:46 PM EDT Gender Identity Male 09/12/2018 4:46 PM EDT Sexual Orientation Straight 09/12/2018 4: 46 PM EDT Job Start Date Occupation Industry Not on file Not on file Not on file documented as of this encounter Miscellaneous Notes * Telephone Encounter - Jennifer Sarkar MD - 07/28/2023 2:32 PM EDT Will rev at hosp f/u appt keep legs elevated as much as possible in day and on pillow at night. * Telephone Encounter - Sharona Mehta LPN - 07/28/2023 1:01 PM EDT PT/OT/ST Eval Start of Care/Continuation SAI Fisher, Calling from: [facility] PT Plan of care: 2 times per week for 2 weeks: Then 1 times a week for 2 weeks Focusing on: gait training, strengthening and balance. Concerns: Edema- non pitting. Symptoms: edema- location bilateral ankles. Vitals: T 98.1 P 52 RR 20 BP 112/66 SP O2 92-93% at 3 LPM via NC Lung sounds NA Weight 160.6 Blood sugar NA Pain 1/10 chronic back pain. Narrative: Reports that the pt has non pitting lower extremity edema to the ankle region. Pt is scheduled for an OV 08/01/23. FYI Call back SAI Fisher with any advice or orders at [phone] Please fax new orders to [facility] Home Health [phone] Advised that additional visit orders will be signed by Jennifer Sarkar MD and to fax to the office for signature documented in this encounter Plan of Treatment Upcoming Encounters Date Type Department Care Team (Late st Contact Info) Description 11/08/2023 12:20 PM EDT Office Visit Pulmonary Medicine, [facility] [address] [facility] [address] [place] [address] Bashir Harding MD [address] [place] [address] 11/30/2023 12:30 PM EDT Office Visit Orthopaedics [facility] [address] [facility] [place] [address] Ely Cabrales MD [address] [facility] [place] [address] 12/20/2023 9:45 AM EDT Office Visit Urology, [facility] [address] [facility] [place] [address] Man Gu MD [address] [address] 12/26/2023 11:20 AM EST Office Visit General Internal Medicine [facility] [address] [place] [address] Jennifer Sarkar MD [address] [facility] [place] [address] 03/16/2024 2:00 PM EST Office Visit Cardiology, [facility] [address] [facility] [place] [address] Job Bravo PA-C [address] [facility] [place] [address] Scheduled Procedures Name Priority Associated Diagnoses Date/Ti me COLONOSCOPY FLEXIBLE PROXIMAL DIAGNOSTIC Recall History of colon polyps Health Maintenance Due Date Last Done Comments Adult Wellness Visit 11/29/2017 11/29/2016 Colonoscopy 06/03/2022 06/03/2017, 02/01/2007 Depression Monitoring 09/09/2022 09/09/2021 COVID-19 Vaccine ( season) 2023 05/14/2020, 04/18/2020 Albumin/Creatinine Ratio 09/09/2024 09/09/2021, 09/22 GFR 10/19/2024 10/20/2023, 08/21, 08/17/2023, Additional history exists TSH 10/24/2024 10/25/2023, 02/23, 12/01/2022, Additional history exists DXA Scan 08/29/2025 08/30/2023, 07/22, 05/24/2017, Additional history exists DTap/Tdap Vaccines (2 - Td or Tdap) 07/19/2028 07/19/2018, 12/14/2007 Pneumococcal Vaccine: 65+ Years Completed 11/12/2014, 07/20/2007, 02/25/2002 RETIRED - COLONOSCOPY-EVERY 5 YRS AGES 18-100 Discontinued 06/03/2017, 02/01/2007 Zoster Vaccines Completed 01/28/2020, 09/17/2019 VITAMIN D LEVEL ONCE IN A LIFETIME-USE SMARTSET# [id number] Completed 10/20/2023, 08/17/2023, 12/01/2022, Additional history exists Influenza Vaccine (FLU shot) Completed 10/25/2023, 11/22/2022, 04/06/2022, Additional history exists HPV (Gardasil) Vaccine Aged Out No lo nger eligible based on patient's age to complete this topic Hepatitis B Vaccine Aged Out No longe r eligible based on patient's age to complete this topic MENINGOCOCCAL (MENACTRA/MENVEO) Aged Out No longer eligible based on patient's age to complete this topic documented as of this encounter Medical Devices Implanted Type Area Cabin Agent Device Identifier Shelf Expiration Date Model / Serial / Lot Lens Intraoc 23.0 - [id number] - [id number] Implanted:Qty: 1 on 12/21/2016 by Raj Bernard MD at [facility] Left: Eye BAUSCH & LOMB 06/20/2021 [id number] / [id number] / Lens Intraoc 22.0 - [id number] - [id number] Implanted:Qty: 1 on 01/06/2017 by Raj Bernard MD at [facility] Right: Eye BAUSCH & LOMB 08/20/2021 [id number] / [id number] / [id number] documented as of this encounter Advance Directives * Full Code (Latest Code Status on File) Date Activated Date Inactivated Comments 01/06/2017 12:19 PM 01/10/2017 11:00 AM This ord er reflects the patients wishes and were consensually agreed upon. * Full Code Date Activated Date Inactivated Comments 12/21/2016 1:46 PM 12/21/2016 8:34 PM This order reflects the patients wishes and were consensually agreed upon. * Full Code Date Activated Date Inactivated Comments 10/09/2008 1:46 PM 10/14/2008 9:18 PM This order r eflects the patients wishes and were consensually agreed upon. Question Answer Comments Discussion of Advance Directives occurred with: Patient/Family Does the patient have a Living Will? No Does the patient have Health Care Power of Attor bj? No Care Teams Border Patrol Agent Relationship Specialty Start Date End Date Jennifer Sarkar MD [address] [facility] [place] [address] PCP - General Internal Medicine 10/06/20 documented as of this encounter
--- OUTSIDE RECORDS SUMMARY | 2023-10-28 23:12 | External Medical Summary | Summary of Care ---
Author Name Unknown Organization [facility] Address [address] [facility] [place] [address] Phone [phone] Care Team Providers Care Care Manager Name Role Phone Jennifer Sarkar MD Primary Care Provider [phone] Reason for Visit * Reason Onset Date Comments Test Results 10/26/2023 Encounter Details Date Type Department Care Team (Late st Contact Info) Description 10/26/2023 Telephone [facility]phrology, [facility] [address] [place] [address] Yumiko Philippe MD [address] [place] [address] Test Results Allergies Active Allergy Reactions Criticality Noted Date Comments Food (See Comments) 03/21/2018 Other reaction(s): WAS TOLD NOT TO TAKE grapefruit Tramadol Other (Please comment) High 10/06/2020 Hallucinations documented as of this encounter (statuses as of 10/26/2023) Medications Medication Sig Dispensed Refills Start Date [...] administration Active Acetaminophen 500 MG Oral Tablet (Tylenol)Indications: Spinal stenosis of lumbar region without neurogenic claudication Take by mouth 2 Tablets in the morning AND 2 Tablets before bedtime. ,may take 3rd dose in between --12/21/2021. 1 Tablet 2 Active Additional Information Patient taking differently:1,000 mg [id number] PRN, ,may take 3rd dose in between [...] hours as needed for Wheezing. 18 g 3 Active Saline Nasal Gel (Nasogel)Indications: Chronic respiratory failure with hypoxia (HCC),Supplemental oxygen dependent,Nasal septal perforation,Nose dryness Administer into each nostril daily. For dryness(nasal septal perforation) 14 g 3 Active Meclizine HCl 12.5 MG Oral Tablet (Antivert)Indications :Dizziness,Benign paroxysmal positional vertigo, unspecified laterality TAKE 1 TABLET BY MOUTH THREE TIMES A DAY NEEDED FOR DIZZINESS 30 Tablet 1 3 Active Clopidogrel Bisulfate 75 MG Oral Tablet (pLAVix)Indications:S /P primary angioplasty with coronary stent TAKE 1 TABLET DAILY 90 Tablet 1 3 Active oxygen 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:Chroni c respiratory failure with hypoxia (HCC),Chronic right-sided heart failure (HCC),Granulomatous lung disease (HCC) Use 3lpm continuous, increased to 4lpm with exertion. Changed 03/23/23 1 Each 4 Active Propranolol HCl 20 MG Oral Tablet (Inderal) Take 1 Tablet by mouth in the morning and 1 Tablet at noon and 1 Tablet before bedtime. 270 Tablet 3 4 Active Finasteride 5 MG Oral Tablet (Proscar) Take 1 Tablet by mouth in the morning. 90 Tablet 3 4 Active Furosemide 40 MG Oral Tablet (Lasix)Indications:Co ronary artery disease involving [place] coronary artery of [place] heart without angina pectoris,Chronic right-sided heart failure (HCC),Bilateral leg edema,Encounter for monitoring diuretic therapy 40 mg in the AM and 20 mg in the early afternoon 135 Tablet 3 4 Active Rosuvastatin Calcium 5 MG Oral Tablet (Crestor)Indications: Dyslipidemia, goal LDL below 100,S/P primary angioplasty with coronary stent TAKE 1 TABLET BY MOUTH EVERY DAY 30 Tablet 1 4 Active Levothyroxine Sodium 112 MCG Oral Tablet (Levoxyl)Indications: Acquired hypothyroidism TAKE 1 TABLET BY MOUTH IN THE MORNING. (AT LEAST 30 MIN PRIOR TO BREAKFAST OR OTHER MEDS) 90 Tablet 1 4 Active Pantoprazole Sodium 20 MG Oral Tablet Delayed Release (Protonix)Indications :History of gastroesophageal reflux (GERD),History of esophageal dilatation Take 1 Tablet by mouth in the morning. 30 minutes before the first meal of the day. Do not crush, split or chew the tablet. 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 ST 09/01/2022. 90 Tablet 3 4 Active DULoxetine HCl 60 MG Oral Capsule Delayed Release Particles (Cymbalta)Indications :Chronic pain of both shoulders,Spinal stenosis of lumbar region without neurogenic claudication,Current moderate episode of major depressive disorder without prior episode (HCC) TAKE 1 CAPSULE BY MOUTH IN THE MORNING. DO NOT CUT, CRUSH OR CHEW--INC FROM 06/23/2023. 90 Capsule 3 4 Active documented as of this encounter (statuses as of 10/26/2023) Active Problems Problem Noted Date Diagnosed Date Hypercalcemia 12/03/2022 Supplemental oxygen dependent 05/06/2022 Nasal septal perforation 05/06/2022 Chronic respiratory failure with hypoxia 022 Granulomatous lung disease 09/18/2021 Chronic rhinitis 06/10/2021 Schatzki's ring of distal esophagus 06/10/2021 Chronic right-sided heart failure 04/08/2020 Coronary artery disease invo lving [place] coronary artery of [place] heart without angina pectoris 11/21/2018 Abnormality of [...] as of this encounter (statuses as of 10/26/2023) Resolved Problems Problem Noted Date Diagnosed Date [...] and draped in usual sterile manner. 14 Dutch flexible cystoscope inserted into urethra and guided [...] as of this encounter (statuses as of 10/26/2023) Immunizations Name Administration Dates Next Due COVID-19 mRNA, LNP-s, No Pre serve, 2-Dose Series ([place]) 05/14/2020,04/18/2020 H1N1 2009 Influenza, IM 04/22/2009 PPD 01/18/2023, 3,11/22/2022,11/13,08/20/2020,08/11/2020 Pneumococcal Conjugate Vacc, 13 Valent (Prevnar) 11/12/2014 Pneumococcal Polysaccharide PPV23 (Pneumovax) 07/20/2007 Season Influenza, Quad, PF, Adjuvanted, 65+ Yrs, IM (FLUAD) 11/29/2019 Seasonal Influenza, High Dos e, Trivalent, PF, IM (Fluzone HD) 10/25/2023 Seasonal Influenza, PF, 6 M & above, [...] encounter Miscellaneous Notes * Telephone Encounter - Pippa Ryan RN - 10/26/2023 2:12 PM EDT TE with pt and aware to repeat lab tests. Will send follow up to review after these results are back. Labs ordered. * Telephone Encounter - Pippa Ryan RN - 10/26/2023 2:08 PM EDT ----- Message from Yumiko Philippe MD sent at 10/25/2023 3:48 PM EDT ----- Patient with active urine sediment which is new for him and it may relate to his kidney stone disease. Already following actively with Urology. Given bilirubinuria would check liver function though it was normal in February. Also with mildly elevated uric acid levels and I do recommend allopurinol once we know liver is okay. ->check cmp and repeat UACM; if liver ok, will add allopurinol 100 mg daily and repeat uric acidlevel after 2-3 wks on drug along w/ cmp documented in this encounter Plan of Treatment Upcoming Encounters Date Type Department Care Team (Late st Contact Info) Description 11/08/2023 12:20 PM EDT Office Visit Pulmonary Medicine, [facility] 132 [facility] [place] [address] Bashir Harding MD [address] [facility] [place] [address] 11/30/2023 12:30 PM EDT Office Visit [facility]ed[facility] [place] [address] Ely Cabrales MD [address] [place] [address] 12/20/2023 9:45 AM EDT Office Visit Urology, [facility] [place] [address] Man Gu MD [address] [facility] [place] [address] 12/26/2023 11:20 AM EST Office Visit General Internal Medicine [facility] 200 [facility] [place] [address] [facility] MD [facility] [address] 03/16/2024 2:00 PM EST Office Visit Cardiology, [facility] [address] [facility] [place] [address] Job Bravo PAJorgeC 132 [facility] [place] [address] Scheduled Orders Name Type Priority Associated Diagnoses Orde r Schedule COMPREHENSIVE METABOLIC PANEL Lab Routine Dyslipidemia, goal LDL below 70 Hematuria, microscopic Nephrolithiasis Hyperuricemia Expected: 10/26/2023, Expires: 10/25/2024 URINALYSIS WITH MICROSCOPIC EXAM Lab Routine Dyslipidemia, goal LDL below 70 Hematuria, microscopic Nephrolithiasis Hyperuricemia Expected: 10/27/2023 (Approximate), Expires: 10/25/2024 Scheduled Procedures Name Priority Associated Diagnoses Date/Ti me COLONOSCOPY FLEXIBLE PROXIMAL DIAGNOSTIC Recall History of colon polyps Health Maintenance Due Date Last Done Comments Adult Wellness Visit 11/29/2017 11/29/2016 Colonoscopy 06/03/2022 06/03/2017, 02/01/2007 Depression Monitoring 09/09/2022 09/09/2021 COVID-19 Vaccine (3 season) 2023 05/14/2020, 04/18/2020 Albumin/Creatinine Ratio 09/09/2024 [...] D LEVEL ONCE IN A LIFETIME-USE SMARTSET# [id number] Completed 10/20/2023, 08/17/2023, 12/01/2022, Additional history exists [...] this encounter Medical Devices Implanted Type Area Four Slide Machine Operator Device Identifier Shelf Expiration Date Model / Serial / Lot Lens Intraoc 23.0 - [id number] - [id number] Implanted:Qty: 1 on 12/21/2016 by Raj Bernard MD at [facility] Left: Eye BAUSCH [employer] LOMB 06/20/2021 [id number] / [id number] / Lens Intraoc 22.0 - [id number] - [id number] Implanted:Qty: 1 on 01/06/2017 by Raj Bernard MD at [facility] Right: Eye BAUSCH & LOMB 08/20/2021 [id number] / [id number] / [id number] documented as of this encounter Visit Diagnoses Diagnosis Dyslipidemia, goal LDL below 70- Primary Other and unspecified hyperlipidemia Hematuria, microscopic Microscopic hematuria Nephrolithiasis Calculus of kidney Hyperuricemia Other abnormal blood chemistry documented in this encounter Advance Directives * Full Code [...] Power of Attor bj? No Care Teams Care Manager Relationship Specialty Start Date End Date Jennifer Sarkar MD [address] [place] [address] PCP - General Internal Medicine 10/06/20 documented as of this encounter
--- OUTSIDE RECORDS SUMMARY | 2023-10-28 23:12 | External Medical Summary | Summary of Care ---
Author Name Unknown Organization [facility] Address [address] [facility] [place] [address] Phone [phone] Care Team Providers Care Receiving Associate Store Name Role Phone Jennifer Sarkar MD Primary Care Provider [phone] Reason for Visit * Reason Comments Outpatient Testing Encounter Details Date Type Department Care Team (Late st Contact Info) Description 10/25/2023 12:00 PM EDT Laboratory Laboratory [facility] [place] [address] [place] [address] [place], [facility] [address] [place] [address] Acquired hypothyroidism; Noncompliance with medications Allergies Active Allergy Reactions Criticality Noted Date Comments Food (See Comments) 03/21/2018 Other reaction(s): WAS TOLD NOT TO TAKE grapefruit Tramadol Other (Please comment) High 10/06/2020 Hallucinations documented as of this encounter (statuses as of 10/25/2023) Medications Medication Sig Dispensed Refills Start Date [...] Active Additional Information Patient taking differently:1,000 mg [id number] PRN, ,may take 3rd dose in between [...] Oral Tablet (Lasix)Indications:Co ronary artery disease involving [place] coronary artery of [place] heart without angina pectoris,Chronic right-sided heart failure [...] as of this encounter (statuses as of 10/25/2023) Active Problems Problem Noted Date Diagnosed Date Hypercalcemia 12/03/2022 Supplemental oxygen dependent 05/06/2022 Nasal septal perforation 05/06/2022 Chronic respiratory failure with hypoxia 022 Granulomatous lung disease 09/18/2021 Chronic rhinitis 06/10/2021 Schatzki's ring of distal esophagus 06/10/2021 Chronic right-sided heart failure 04/08/2020 Coronary artery disease invo lving [place] coronary artery of [place] heart without angina pectoris 11/21/2018 Abnormality of [...] Overview: 3 LPM at bedtime [facility] SPINAL STENOSIS-LUMBAR 07/29/2005 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 Essential tremor documented as of this encounter (statuses as of 10/25/2023) Resolved Problems Problem Noted Date Diagnosed Date [...] and draped in usual sterile manner. 14 German flexible cystoscope inserted into urethra and guided [...] as of this encounter (statuses as of 10/25/2023) Immunizations Name Administration Dates Next Due COVID-19 mRNA, LNP-s, No Pre serve, 2-Dose Series (Powerlytics) 05/14/2020,04/18/2020 H1N1 2009 Influenza, IM 04/22/2009 PPD [...] 12:20 PM EDT Office Visit Pulmonary Medicine, [facility] [address] [facility] [place] [address] Bashir Harding MD [address] [place] [address] 11/30/2023 12:30 PM EDT Office Visit Orthopaedics [facility] [address] [facility] [place] [address] Ely Cabrales MD [address] [facility] [place] [address] 12/20/2023 9:45 AM EDT Office Visit Urology, [facility] [address] [facility] [place] [address] Man Gu MD [address] [place] [address] 12/26/2023 11:20 AM EST Office Visit General Internal Medicine [facility] [place] [address] [place] [address] Jennifer Sarkar MD [address] [place] [address] 03/16/2024 2:00 PM EST Office Visit Cardiology, [facility] [address] [place] [address] Job Bravo PA-C [address] [place] [address] Pending Results Name Type Priority Associated Diagnoses Date /Time TSH WITH FREE T4 IF INDICATED Lab Routine Acquired hypothyroidism Noncompliance with medications 10/25/2023 12:04 PM EDT Scheduled Procedures Name Priority Associated Diagnoses Date/Ti me COLONOSCOPY FLEXIBLE PROXIMAL DIAGNOSTIC Recall History of colon polyps Health Maintenance Due Date Last Done Comments Adult Wellness Visit 11/29/2017 11/29/2016 Colonoscopy 06/03/2022 06/03/2017, 02/01/2007 Depression Monitoring 09/09/2022 09/09/2021 COVID-19 Vaccine ( season) 2023 05/14/2020, 04/18/2020 TSH 03/23/2024 03/23/2023, 11/21, 08/11/2022, Additional history exists Albumin/Creatinine Ratio 09/09/2024 09/09/2021, 08/ GFR 10/19/2024 10/20/2023, 08/21, 08/17/2023, Additional history exists DXA Scan 08/29/2025 08/30/2023, 07/22, 05/24/2017, Additional history exists DTap/Tdap Vaccines (2 - Td or Tdap) 07/19/2028 07/19/2018, 12/14/2007 Pneumococcal Vaccine: 65+ Years Completed 11/12/2014, 07/20/2007, 02/25/2002 RETIRED - COLONOSCOPY-EVERY 5 YRS AGES 18-100 Discontinued 06/03/2017, 02/01/2007 Zoster Vaccines Completed 01/28/2020, 09/17/2019 VITAMIN D LEVEL ONCE IN A LIFETIME-USE SMARTSET# [id number] Completed 10/20/2023, 08/17/2023, 12/01/2022, Additional history exists [...] this encounter Medical Devices Implanted Type Area Process Improvement Manager Device Identifier Shelf Expiration Date Model / Serial / Lot Lens Intraoc 23.0 - [id number] - [id number] Implanted:Qty: 1 on 12/21/2016 by Raj Bernard MD at OR [facility] Left: Eye BAUSCH [employer] LOMB 06/20/2021 [id number] / [id number] / Lens Intraoc 22.0 - [id number] - [id number] Implanted:Qty: 1 on 01/06/2017 by Raj Bernard MD at OR [facility] Right: Eye BAUSCH & LOMB 08/20/2021 [id number] / [id number] / [id number] documented as of this encounter Visit Diagnoses Diagnosis Acquired hypothyroidism Unspecified hypothyroidism Noncompliance with medications Personal history of noncompliance with medical treatment, presenting hazards to health documented in this encounter Advance Directives * [...] Power of Attor bj? No Care Teams Receiving Associate Store Relationship Specialty Start Date End Date Jennifer Sarkar MD [address] [facility], [place] [address] PCP - General Internal Medicine 10/06/20 documented as of this encounter
--- OUTSIDE RECORDS SUMMARY | 2023-10-28 23:12 | External Medical Summary ---
Author Name Unknown Address Unknown Organization [id number]:LABORATORY [facility] [place] - [address] [place] [address] Laboratory Report Ordering Provider Test Date Status JESSA METZGER 10/25/2023 12:04:38 Final Observation Date Value Abnormality Reference (Units ) Status TSH 10/25/2023 12:04:38 1.38 0.27-4.20 (uIU/mL) Final Performing Location LABORATORY [facility] - [address] [place] [address]
--- OUTSIDE RECORDS SUMMARY | 2023-10-28 23:12 | External Medical Summary | Summary of Care ---
Author Name Unknown Organization [facility] Address [address] [place] [address] Phone [phone] Care Team Providers Care Welder Journeyman Name Role Phone Jennifer Sarkar MD Primary Care Provider [phone] Reason for Visit * Reason Onset Date Comments Test Results 10/20/2023 Encounter Details Date Type Department Care Team (Late st Contact Info) Description 10/20/2023 Telephone Cardiology, [facility] [address] [place] [address] Job Bravo PA-C [address] [place] [address] Test Results Allergies Active Allergy Reactions Criticality Noted Date Comments Food (See Comments) 03/21/2018 Other reaction(s): WAS TOLD NOT TO TAKE grapefruit Tramadol Other (Please comment) High 10/06/2020 Hallucinations documented as of this encounter (statuses as of 10/20/2023) Medications Medication Sig Dispensed Refills Start Date [...] Active Additional Information Patient taking differently:1,000 mg [id number] PRN, ,may take 3rd dose in between [...] FOR DIZZINESS 30 Tablet 1 3 Active Benzonatate 100 MG Oral CapsuleIndications:As piration into airway, subsequent encounter Take 1 Capsule by mouth 3 times a day as needed for Cough. 30 Capsule 1 3 Active Additional Information Patient not taking.Reported on 09/08/2023 Clopidogrel Bisulfate 75 MG Oral Tablet (pLAVix)Indications:S /P primary angioplasty with coronary stent TAKE 1 TABLET DAILY 90 Tablet 1 3 Active oxyCODONE HCl 5 MG Oral Tablet (Oxy IR) Take 1 Tablet by mouth every 8 hours as needed for Pain, Severe. 3 Active oxygen 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:Chroni c respiratory [...] the morning. 90 Tablet 3 4 Active Magnesium Hydroxide 400 MG/5ML Oral Suspension (Mom) Take 30 mL by mouth. 4 Active Furosemide 40 MG Oral Tablet (Lasix)Indications:Co ronary artery disease involving [place] coronary artery of [place] heart without angina pectoris,Chronic right-sided heart failure [...] OR CHEW--INC FROM 06/23/2023. 90 Capsule 3 Active documented as of this encounter (statuses as of 10/20/2023) Active Problems Problem Noted Date Diagnosed Date Hypercalcemia 12/03/2022 Supplemental oxygen dependent 05/06/2022 Nasal septal perforation 05/06/2022 Chronic respiratory failure with hypoxia 022 Granulomatous lung disease 09/18/2021 Chronic rhinitis 06/10/2021 Schatzki's ring of distal esophagus 06/10/2021 Chronic right-sided heart failure 04/08/2020 Coronary artery disease invo lving [place] coronary artery of [place] heart without angina pectoris 11/21/2018 Abnormality of [...] as of this encounter (statuses as of 10/20/2023) Resolved Problems Problem Noted Date Diagnosed Date [...] and draped in usual sterile manner. 14 [place]ivian flexible cystoscope inserted into urethra and guided [...] as of this encounter (statuses as of 10/20/2023) Immunizations Name Administration Dates Next Due COVID-19 mRNA, LNP-s, No Pre serve, 2-Dose Series (InGaugeIt) 05/14/2020,04/18/2020 H1N1 2009 Influenza, IM 04/22/2009 PPD [...] encounter Miscellaneous Notes * Telephone Encounter - Phillip Hess LPN - 10/20/2023 1:31 PM EDT Called patient and informed of Job's message. Patient verbalized understanding. ----- Message from Job Bravo sent at 10/20/2023 1:30 PM EDT ----- Ok/stable documented in this encounter Plan of Treatment Upcoming Encounters Date Type Department Care Team (Late st Contact Info) Description 10/25/2023 10:20 AM EDT Office Visit General Internal Medicine [facility] [address] [place] [address] Jennifer Sarkar MD [address] [facility] [place] [address] 11/30/2023 12:30 PM EDT Office Visit Orthopaedics [facility] [address] [place] [address] Ely Cabrales MD [address] [place] [address] 12/20/2023 9:45 AM EDT Office Visit Urology, [facility] [address] [place] [address] Man Gu MD [address] [place] [id number] 12/26/2023 11:20 AM EST Office Visit General Internal Medicine [facility] [address] [facility] [place] [address] Jennifer Sarkar MD [address] [facility] [place] [address] 03/16/2024 2:00 PM EST Office Visit Cardiology, [facility] [address] [place] [address] Job Bravo PALisa [address] [place] [address] Scheduled Procedures Name Priority Associated Diagnoses Date/Ti me COLONOSCOPY FLEXIBLE PROXIMAL DIAGNOSTIC Recall History of colon polyps Health Maintenance Due Date Last Done Comments Adult Wellness Visit 11/29/2017 11/29/2016 Colonoscopy 06/03/2022 06/03/2017, 02/01/2007 Depression Monitoring 09/09/2022 09/09/2021 COVID-19 Vaccine ( season) 2022 05/14/2020, 04/18/2020 Influenza Vaccine (FLU shot) (#1) 2023 11/22/2022, 04/06/2022, 04/06/2022, Additional history exists TSH 03/23/2024 03/23/2023, 11/21, 08/11/2022, Additional history exists Albumin/Creatinine Ratio 09/09/2024 09/09/2021, 09/22 GFR 10/19/2024 10/20/2023, 08/21, 08/17/2023, Additional history exists DXA Scan 08/29/2025 08/30/2023, 07/22, 05/24/2017, Additional history exists DTap/Tdap Vaccines (2 - Td or Tdap) 07/19/2028 07/19/2018, 12/14/2007 Pneumococcal Vaccine: 65+ Years Completed 11/12/2014, 07/20/2007, 02/25/2002 RETIRED - COLONOSCOPY-EVERY 5 YRS AGES 18-100 Discontinued 06/03/2017, 02/01/2007 Zoster Vaccines Completed 01/28/2020, 09/17/2019 VITAMIN D LEVEL ONCE IN A LIFETIME-USE SMARTSET# [id number] Completed 08/17/2023, 12/01/2022, 09/09/2021, Additional history exists HPV (Gardasil) Vaccine Aged Out No lo nger eligible based on patient's age to complete this topic Hepatitis B Vaccine Aged Out No longe r eligible based on patient's age to complete this topic MENINGOCOCCAL (MENACTRA/MENVEO) Aged Out No longer eligible based on patient's age to complete this topic documented as of this encounter Medical Devices Implanted Type Area Android Programmer Device Identifier Shelf Expiration Date Model / Serial / Lot Lens Intraoc 23.0 - [id number] - [id number] Implanted:Qty: 1 on 12/21/2016 by Raj Bernard MD at OR [facility] Left: Eye BAUSCH & LOMB 06/20/2021 [id number] / [id number] / Lens Intraoc 22.0 - [id number] - [id number] Implanted:Qty: 1 on 01/06/2017 by Raj Bernard MD at OR [facility] Right: Eye BAUSCH & LOMB 08/20/2021 [id number] / [id number] / [id number] documented as of this encounter Advance Directives [...] Power of Attor bj? No Care Teams Welder Journeyman Relationship Specialty Start Date End Date Jennifer Sarkar MD [address] [place] [address] PCP - General Internal Medicine 10/06/20 documented as of this encounter
--- OUTSIDE RECORDS SUMMARY | 2023-10-28 23:13 | External Medical Summary ---
Author Name Unknown Address Unknown Organization K01:LABORATORY [facility] [place] - [address] [address] Laboratory Report Ordering Provider Test Date Status JOSHUA GEE 10/20/2023 08:26:30 Final Deficient: <20 ng/mL
Ins ufficient: 20-29 ng/mL
Recommended/Optimum:30-50 ng/mL

Vitamin D intoxication is rare. If suspicious of Vitamin D toxicity, evaluation of serum Calcium and PTH is recommended. Observation Date Value Abnormality Reference (Units ) Status 25-OH Vitamin D total 10/20/2023 08:26:30 32 >19 (ng/mL) Final Performing Location LABORATORY C - [address] [place] [address]
--- OUTSIDE RECORDS SUMMARY | 2023-10-28 23:13 | External Medical Summary | Summary of Care ---
Author Name Unknown Organization [facility] Address [address] [place] [address] Phone [phone] Care Team Providers Care Chaplain Resident Name Role Phone Jennifer Sarkar MD Primary Care Provider [phone] Reason for Visit * Reason Comments eRx-Medication Refill Encounter Details Date Type Department Care Team (Late st Contact Info) Description 10/16/2023 Refill General Internal Medicine [facility] [address] [facility] [place] [address] Jennifer Sarkar MD [address] [place] [address] Chronic pansinusitis; Chronic pain of both shoulders; Spinal stenosis of lumbar region without neurogenic claudication; Current moderate episode of major depressive disorder without prior episode (HCC) Allergies Active Allergy Reactions Criticality Noted Date Comments Food (See Comments) 03/21/2018 Other reaction(s): WAS TOLD NOT TO TAKE grapefruit Tramadol Other (Please comment) High 10/06/2020 Hallucinations documented as of this encounter (statuses as of 10/18/2023) Medications Medication Sig Dispensed Refills Start Date [...] administration Active Acetaminophen 500 MG Oral Tablet (Tylenol)Indications :Spinal stenosis of lumbar region without neurogenic claudication Take by mouth 2 Tablets in the morning AND 2 Tablets before bedtime. ,may take 3rd dose in between --12/21/2021. 1 Tablet 12/22/19 Active Additional Information Patient taking differently:1,000 mg [id number] PRN, ,may take 3rd dose in between --12/21/2021, Reported on 12/21/2022 Ipratropium-Albutero l 20-100 MCG/ACT Inhalation Aerosol Solution (Combivent Respimat)Indications :Granulomatous lung disease (HCC),Chronic respiratory failure with hypoxia (HCC) Inhale 1 Puff by mouth in the morning and 1 Puff at noon and 1 Puff in the evening and 1 Puff before bedtime. 4 g 2 04/06/19 Active Albuterol Sulfate HFA 108 (90 Base) MCG/ACT Inhalation Aerosol Solution Inhale 2 Puffs by mouth every 6 hours as needed for Wheezing. 18 g 04/07/19 23 Active Saline Nasal Gel (Nasogel)Indications :Chronic respiratory failure with hypoxia (HCC),Supplemental oxygen dependent,Nasal septal perforation,Nose dryness Administer into each nostril daily. For dryness(nasal septal perforation) 14 g 05/07/19 23 Active Meclizine HCl 12.5 MG Oral Tablet (Antivert)Indication s:Dizziness,Benign paroxysmal positional vertigo, unspecified laterality TAKE 1 TABLET BY MOUTH THREE TIMES A DAY NEEDED FOR DIZZINESS 30 Tablet 1 08/11/19 Active Benzonatate 100 MG Oral CapsuleIndications:A spiration into airway, subsequent encounter Take 1 Capsule by mouth 3 times a day as needed for Cough. 30 Capsule 1 12/21/19 Active Additional Information Patient not taking.Reported on 09/08/2023 Clopidogrel Bisulfate 75 MG Oral Tablet (pLAVix)Indications: S/P primary angioplasty with coronary stent TAKE 1 TABLET DAILY 90 Tablet 1 02/12/20 23 Active oxyCODONE HCl 5 MG Oral Tablet (Oxy IR) Take 1 Tablet by mouth every 8 hours as needed for Pain, Severe. 01/10/20 Active oxygen 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:Chron ic respiratory failure with hypoxia (HCC),Chronic right-sided heart failure (HCC),Granulomatous lung disease (HCC) Use 3lpm continuous, increased to 4lpm with exertion. Changed 03/23/23 1 Each 04/10/19 24 Active Propranolol HCl 20 MG Oral Tablet (Inderal) Take 1 Tablet by mouth in the morning and 1 Tablet at noon and 1 Tablet before bedtime. 270 Tablet 3 07/23/19 24 Active Finasteride 5 MG Oral Tablet (Proscar) Take 1 Tablet by mouth in the morning. 90 Tablet 3 08/03/19 24 Active Magnesium Hydroxide 400 MG/5ML Oral Suspension (Mom) Take 30 mL by mouth. 07/07/19 24 Active Furosemide 40 MG Oral Tablet (Lasix)Indications:C oronary artery disease involving [place] coronary artery of [place] heart without angina pectoris,Chronic right-sided heart failure (HCC),Bilateral leg edema,Encounter for monitoring diuretic therapy 40 mg in the AM and 20 mg in the early afternoon 135 Tablet 3 09/08/19 24 Active Rosuvastatin Calcium 5 MG Oral Tablet (Crestor)Indications :Dyslipidemia, goal LDL below 100,S/P primary angioplasty with coronary stent TAKE 1 TABLET BY MOUTH EVERY DAY 30 Tablet 1 09/15/19 24 Active Levothyroxine Sodium 112 MCG Oral Tablet (Levoxyl)Indications :Acquired hypothyroidism TAKE 1 TABLET BY MOUTH IN THE MORNING. (AT LEAST 30 MIN PRIOR TO BREAKFAST OR OTHER MEDS) 90 Tablet 1 09/27/19 24 Active Pantoprazole Sodium 20 MG Oral Tablet Delayed Release (Protonix)Indication s:History of gastroesophageal reflux (GERD),History of esophageal dilatation Take 1 Tablet by mouth in the morning. 30 minutes before the first meal of the day. Do not crush, split or chew the tablet. 90 Tablet 3 09/27/19 24 Active Tamsulosin HCl 0.4 MG Oral Capsule (Flomax)Indications: BPH with obstruction/lower urinary tract symptoms TAKE 1 CAPSULE BY MOUTH EVERYDAY AT BEDTIME 90 Capsule 1 09/27/19 24 Active Citalopram Hydrobromide 20 MG Oral Tablet (CeleXA) TAKE 1 TABLET BY MOUTH EVERY DAY FOR DEPRESSION 90 Tablet 1 09/27/19 24 Active Montelukast Sodium 10 MG Oral Tablet (Singulair)Indicatio ns:Chronic pansinusitis TAKE 1 TABLET BY MOUTH IN THE MORNING. ST 09/01/2022. 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 DO NOT CUT, CRUSH OR CHEW--INC FROM 06/23/2023. 90 Capsule 3 10/18/19 24 Active Montelukast Sodium 10 MG Oral Tablet (Singulair)Indicatio ns:Chronic pansinusitis Take 1 Tablet by mouth in the morning. St 09/01/2022. 90 Tablet 3 09/02/19 23 024 Discontinued DULoxetine HCl 60 MG Oral Capsule Delayed Release Particles (Cymbalta)Indication s:Chronic pain of both shoulders,Spinal stenosis of lumbar region without neurogenic claudication,Current moderate episode of major depressive disorder without prior episode (HCC) Take 1 Capsule by mouth in the morning. Do not cut, crush or chew--inc from 06/23/2023. 90 Capsule 1 06/22/19 24 024 Discontinued documented as of this encounter (statuses as of 10/18/2023) Active Problems Problem Noted Date Diagnosed Date Hypercalcemia 12/03/2022 Supplemental oxygen dependent 05/06/2022 Nasal septal perforation 05/06/2022 Chronic respiratory failure with hypoxia 022 Granulomatous lung disease 09/18/2021 Chronic rhinitis 06/10/2021 Schatzki's ring of distal esophagus 06/10/2021 Chronic right-sided heart failure 04/08/2020 Coronary artery disease invo lving [place] coronary artery of [place] heart without angina pectoris 11/21/2018 Abnormality of [...] as of this encounter (statuses as of 10/18/2023) Resolved Problems Problem Noted Date Diagnosed Date [...] and draped in usual sterile manner. 14 [place] flexible cystoscope inserted into urethra and guided into bladder under direct vision. Findings :normal bladder mucosa, normal anatomical position of ureteral orifices.Ureteral stent removed completely Calculus of ureter 04/01/2005 8 ADVANCE DIRECTIVE INFORMATION 07/27/2004 07/21/2016 Overview: Patient does not have an advanced directive. Patient given information booklet. Bacterial pneumonia 07/31/2002 09/17/19 16 Depression with anxiety 11/18/2000 10/02/2017 HYPERTENSION NOS 01/13/2009 Overview: Modified per HTN protocol #16. Screening for prostate cancer 01/03/2007 Asthma, allergic 04/22/2009 Osteoporosis 02/24/2017 documented as of this encounter (statuses as of 10/18/2023) Immunizations Name Administration Dates Next Due COVID-19 mRNA, LNP-s, No Pre serve, 2-Dose Series ([employer]) 05/14/2020,04/18/2020 H1N1 2009 Influenza, IM 04/22/2009 PPD [...] encounter Miscellaneous Notes * Telephone Encounter - Anitha Montanez [facility] - 10/18/2023 1:08 PM EDT Signed Prescriptions: Disp Refills Montelukast Sodium 10 MG Oral Tablet (Sing*90 Tab*3 Sig: TAKE 1 TABLET BY MOUTH IN THE MORNING. ST 09/01/2022.Authorizing Provider: Tabitha SARKAR User: ANITHA MONTANEZ DULoxetine HCl 60 MG Oral Capsule Delayed *90 Cap*3 Sig: TAKE 1 CAPSULE BY MOUTH IN THE MORNING. DO NOT CUT, CRUSH OR CHEW--INC FROM 06/23/2023.Authorizing Provider: Tabitha SARKAR User: ANITHA MONTANEZ documented in this encounter Plan of Treatment Upcoming Encounters Date Type Department Care Team (Late st Contact Info) Description 10/20/2023 7:00 AM EDT Office Visit Nephrology, [facility] [address] [place] [address] Yumiko Philippe MD [address] [place] [address] 11/30/2023 12:30 PM EDT Office Visit Orthopaedics [facility] [address] [facility] [place] [address] Ely Cabrales MD 132 [facility] [place] [address] 12/20/2023 9:45 AM EDT Office Visit Urology, [facility] [address] [facility] [address] [place] [address] Man Gu MD [address] [place] [address] 12/26/2023 11:20 AM EST Office Visit General Internal Medicine [facility] [address] [place] [address] Jennifer Sarkar MD [address] [place] [address] 03/16/2024 2:00 PM EST Office Visit Cardiology, [facility] [address] [address] Job Bravo PA-C [address] [place] [address] Scheduled Procedures Name Priority Associated Diagnoses Date/Ti [...] 03/23/2024 03/23/2023, 11/21, 08/11/2022, Additional history exists GFR 09/07/2024 09/08/2023, 07/23, 03/23/2023, Additional history exists Albumin/Creatinine Ratio 09/09/2024 09/09/2021, 09/22 DXA Scan 08/29/2025 08/30/2023, 07/22, 05/24/2017, Additional history exists DTap/Tdap Vaccines (2 - Td or Tdap) 07/19/2028 07/19/2018, 12/14/2007 Pneumococcal Vaccine: 65+ Years Completed 11/12/2014, 07/20/2007, 02/25/2002 RETIRED - COLONOSCOPY-EVERY 5 YRS AGES 18-100 Discontinued 06/03/2017, 02/01/2007 Zoster Vaccines Completed 01/28/2020, 09/17/2019 VITAMIN D LEVEL ONCE IN A LIFETIME-USE SMARTSET# [id number] Completed 08/17/2023, 12/01/2022, 09/09/2021, Additional history exists [...] this encounter Medical Devices Implanted Type Area Block Operator Device Identifier Shelf Expiration Date Model / Serial / Lot Lens Intraoc 23.0 - [id number] - [id number] Implanted:Qty: 1 on 12/21/2016 by Raj Bernard MD at OR [facility] Left: Eye [employer] 06/20/2021 [id number] / [id number] / Lens Intraoc 22.0 - [id number] - [id number] Implanted:Qty: 1 on 01/06/2017 by Raj Bernard MD at OR [facility] Right: Eye [employer]OMB 08/20/2021 [id number] / [id number] / [id number] documented as of this encounter Visit Diagnoses Diagnosis Chronic pansinusitis Other chronic sinusitis Chronic pain of both shoulders Pain in joint, shoulder region Spinal stenosis of lumbar region without neurogenic claudication Spinal stenosis, lumbar region, without neurogenic claudication Current moderate episode of major depressive disorder without prior episode (HCC) documented in this encounter Advance Directives * [...] Power of Attor bj? No Care Teams Chaplain Resident Relationship Specialty Start Date End Date Jennifer Sarkar MD [address] [place] [address] PCP - General Internal Medicine 10/06/20 documented as of this encounter
--- OUTSIDE RECORDS SUMMARY | 2023-10-28 23:13 | External Medical Summary | Summary of Care ---
Author Name Unknown Organization [facility] Address [address] [address] Phone [phone] Care Team Providers Care Plant Changer Name Role Phone Jennifer Sarkar MD Primary Care Provider [phone] Reason for Visit * Reason Onset Date Comments Appointment 09/21/2023 Encounter Details Date Type Department Care Team (Late st Contact Info) Description 09/21/2023 Telephone General Internal Medicine [facility] [address] [place] [address] Jennifer Sarkar MD [address] [place] [address] Appointment Allergies Active Allergy Reactions Criticality Noted Date Comments Food (See Comments) 03/21/2018 Other reaction(s): WAS TOLD NOT TO TAKE grapefruit Tramadol Other (Please comment) High 10/06/2020 Hallucinations documented as of this encounter (statuses as of 10/03/2023) Medications Medication Sig Dispensed Refills Start Date [...] Active Additional Information Patient taking differently:1,000 mg [id number] PRN, ,may take 3rd dose in between [...] FOR DIZZINESS 30 Tablet 1 08/10/2022 Active Montelukast Sodium 10 MG Oral Tablet (Singulair)Indicat ions:Chronic pansinusitis Take 1 Tablet by mouth in the morning. St 09/01/2022. 90 Tablet 3 09/01/2022 Active Benzonatate 100 MG Oral CapsuleIndications :Aspiration into airway, subsequent encounter Take 1 Capsule by mouth 3 times a day as needed for Cough. 30 Capsule 1 12/20/2022 Active Additional Information Patient not taking.Reported on 09/08/2023 Clopidogrel Bisulfate 75 MG Oral Tablet (pLAVix)Indication s:S/P primary angioplasty with coronary stent TAKE 1 TABLET DAILY 90 Tablet 1 02/11/2023 Active oxyCODONE HCl 5 MG Oral Tablet (Oxy IR) Take 1 Tablet by mouth every 8 hours as needed for Pain, Severe. 01/09/2023 Active oxygen 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:Chr onic respiratory failure with hypoxia (HCC),Chronic right-sided heart failure (HCC),Granulomatou s lung disease (HCC) Use 3lpm continuous, increased to 4lpm with exertion. Changed 03/23/23 1 Each 04/10/2023 Active DULoxetine HCl 60 MG Oral Capsule Delayed Release Particles (Cymbalta)Indicati ons:Chronic pain of both shoulders,Spinal stenosis of lumbar region without neurogenic claudication,Curre nt moderate episode of major depressive disorder without prior episode (HCC) Take 1 Capsule by mouth in the morning. Do not cut, crush or chew--inc from 06/23/2023. 90 Capsule 1 06/22/2023 Active Propranolol HCl 20 MG Oral Tablet (Inderal) Take 1 Tablet by mouth in the morning and 1 Tablet at noon and 1 Tablet before bedtime. 270 Tablet 3 07/23/2023 Active Finasteride 5 MG Oral Tablet (Proscar) Take 1 Tablet by mouth in the morning. 90 Tablet 3 08/03/2023 Active Magnesium Hydroxide 400 MG/5ML Oral Suspension (Mom) Take 30 mL by mouth. 07/07/2023 Active Furosemide 40 MG Oral Tablet (Lasix)Indications :Coronary artery disease involving [place] coronary artery of [place] heart without angina pectoris,Chronic right-sided heart failure (HCC),Bilateral leg edema,Encounter for monitoring diuretic therapy 40 mg in the AM and 20 mg in the early afternoon 135 Tablet 3 09/08/2023 Active Rosuvastatin Calcium 5 MG Oral Tablet (Crestor)Indicatio ns:Dyslipidemia, goal LDL below 100,S/P primary angioplasty with coronary stent TAKE 1 TABLET BY MOUTH EVERY DAY 30 Tablet 1 09/15/2023 Active documented as of this encounter (statuses as of 10/03/2023) Active Problems Problem Noted Date Diagnosed Date Hypercalcemia 12/03/2022 Supplemental oxygen dependent 05/06/2022 Nasal septal perforation 05/06/2022 Chronic respiratory failure with hypoxia 022 Granulomatous lung disease 09/18/2021 Chronic rhinitis 06/10/2021 Schatzki's ring of distal esophagus 06/10/2021 Chronic right-sided heart failure 04/08/2020 Coronary artery disease invo lving [place] coronary artery of [place] heart without angina pectoris 11/21/2018 Abnormality of [...] hypoxemia 06/08/2007 Overview: 3 LPM at bedtime [employer] SPINAL STENOSIS-LUMBAR 07/29/2005 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 Essential tremor documented as of this encounter (statuses as of 10/03/2023) Resolved Problems Problem Noted Date Diagnosed Date Resolved Date Right-sided heart failure 01/30/2020 Gastroesophageal reflux dise ase without esophagitis 03/12/2019 10/03/2019 Hepatomegaly 04/22/2011 11/21/2017 EXT ASTHMA W/O STATUS ASTHMATIC OR AC EXACER 0 04/22/2009 Dysuria 10/14/2008 05/20/2011 Other chest pain 10/09/2008 10/16/2008 INTERFACED RESULT 10/09/2008 05/20/2011 Acute coronary syndrome 10/09/2008/10/2011 Labyrinthitis, unspecified 08/30/2005 0 07/21/2016 Edema 08/30/2005 [...] and draped in usual sterile manner. 14 [place] flexible cystoscope inserted into urethra and guided [...] as of this encounter (statuses as of 10/03/2023) Immunizations Name Administration Dates Next Due COVID-19 mRNA, LNP-s, No Pre serve, 2-Dose Series ([employer]) 05/14/2020,04/18/2020 H1N1 2009 Influenza, IM 04/22/2009 PPD [...] encounter Miscellaneous Notes * Telephone Encounter - Mlevin Trujillo [facility] - 10/03/2023 8:23 AM EDT Scheduled with pt's earliest availability * Telephone Encounter - Jennifer Sarkar MD - 09/30/2023 4:40 PM EDT Not addressed yet, pl f/u * Telephone Encounter - Jennifer Sarkar MD - 09/21/2023 1:[address] [facility] f/u appt as I keep getting HH papers for signature and I have not seen him for last hosp f/u and will not be able sign any paperwork without a face to face visit. documented in this encounter Plan of Treatment Upcoming Encounters Date Type Department Care Team (Late st Contact Info) Description 10/17/2023 10:20 AM EDT Office Visit General Internal Medicine [facility] [address] [place] [address] Jennifer Sarkar MD 200 [facility] [place] [address] 10/20/2023 7:00 AM EDT Office Visit Nephrology, [facility] [address] [place] [address] Yumiko Philippe MD 200 [facility] [place] [address] 11/30/2023 12:30 PM EDT Office Visit Orthopaedics [facility] [address] [address] Ely Cabrales MD [address] [place] [address] 12/20/2023 9:45 AM EDT Office Visit Urology, [facility] [address] [facility] [place] [address] Man Gu MD [address] [place] [address] 12/26/2023 11:20 AM EST Office Visit General Internal Medicine [facility] [address] [facility] [place] [address] Jennifer Sarkar MD [address] [facility] [place] [address] 03/16/2024 2:00 PM EST Office Visit Cardiology, [facility] [address] [facility] [place] [address] Job Bravo PA-C 132 [facility] [place] [address] Scheduled Procedures Name Priority Associated Diagnoses Date/Ti [...] 08/29/2025 08/30/2023, 07/22, 05/24/2017, Additional history exists DTaP,Tdap,and Td Vaccines (2 - Td or Tdap) 07/19/2028 07/19/2018, 12/14/2007 Pneumococcal Vaccine: 65+ Years Completed 11/12/2014, 07/20/2007, 02/25/2002 RETIRED - COLONOSCOPY-EVERY 5 YRS AGES 18-100 Discontinued 06/03/2017, 02/01/2007 Zoster Vaccines Completed 01/28/2020, 09/17/2019 VITAMIN D LEVEL ONCE IN A LIFETIME-USE SMARTSET# [id number] Completed 08/17/2023, 12/01/2022, 09/09/2021, Additional history exists [...] this encounter Medical Devices Implanted Type Area Meal Attendant Device Identifier Shelf Expiration Date Model / Serial / Lot Lens Intraoc 23.0 - [id number] - [id number] Implanted:Qty: 1 on 12/21/2016 by Raj Bernard MD at OR [facility] Left: Eye [employer] 06/20/2021 [id number] / [id number] / Lens Intraoc 22.0 - [id number] - [id number] Implanted:Qty: 1 on 01/06/2017 by Raj Bernard MD at OR [facility] Right: Eye [employer] 08/20/2021 [id number] / [id number] / [id number] documented as of this encounter Advance Directives [...] Power of Attor bj? No Care Teams Plant Changer Relationship Specialty Start Date End Date Jennifer Sarkar MD [address] [place] [address] PCP - General Internal Medicine 10/06/20 documented as of this encounter
--- OUTSIDE RECORDS SUMMARY | 2023-10-28 23:13 | External Medical Summary | Summary of Care ---
Author Name Unknown Organization [facility] Address [address] [facility] [place] [address] Phone [phone] Care Team Providers Care Case Management Social Worker Name Role Phone Jennifer Sarkar MD Primary Care Provider [phone] Reason for Visit * Reason Comments eRx-Medication Refill Encounter Details Date Type Department Care Team (Late st Contact Info) Description 09/26/2023 Refill General Internal Medicine [facility] [address] [facility] [place] [address] Jagjit Fonseca MD 200 [place] [address] History of gastroesophageal reflux (GERD); History of esophageal dilatation Allergies Active Allergy Reactions Criticality Noted Date Comments Food (See Comments) 03/21/2018 Other reaction(s): WAS TOLD NOT TO TAKE grapefruit Tramadol Other (Please comment) High 10/06/2020 Hallucinations documented as of this encounter (statuses as of 09/27/2023) Medications Medication Sig Dispensed Refills Start Date [...] Active Additional Information Patient taking differently:1,000 mg [id number] PRN, ,may take 3rd dose in between [...] FOR DIZZINESS 30 Tablet 1 08/11/19 Active Montelukast Sodium 10 MG Oral Tablet (Singulair)Indicatio ns:Chronic pansinusitis Take 1 Tablet by mouth in the morning. St 09/01/2022. 90 Tablet 3 09/02/19 Active Benzonatate 100 MG Oral CapsuleIndications:A spiration [...] Changed 03/23/23 1 Each 04/10/19 24 Active DULoxetine HCl 60 MG Oral Capsule Delayed Release Particles (Cymbalta)Indication s:Chronic pain of both shoulders,Spinal stenosis of lumbar region without neurogenic claudication,Current moderate episode of major depressive disorder without prior episode (HCC) Take 1 Capsule by mouth in the morning. Do not cut, crush or chew--inc from 06/23/2023. 90 Capsule 1 06/22/19 24 Active Propranolol HCl 20 MG Oral [...] Oral Tablet (Lasix)Indications:C oronary artery disease involving [place] coronary artery of [place] heart without angina pectoris,Chronic right-sided heart failure [...] DEPRESSION 90 Tablet 1 09/27/19 24 Active Pantoprazole Sodium 20 MG Oral Tablet Delayed Release (Protonix)Indication s:History of gastroesophageal reflux (GERD),History of esophageal dilatation Take 1 Tablet by mouth at bedtime. 30 minutes before the first meal of the day. Do not crush, split or chew the tablet--dec 12/21/2021(nml EGD 08/21/21)--chg timing 05/18/2022 90 Tablet 3 08/10/19 23 024 Discontinued documented as of this encounter (statuses as of 09/27/2023) Active Problems Problem Noted Date Diagnosed Date Hypercalcemia 12/03/2022 Supplemental oxygen dependent 05/06/2022 Nasal septal perforation 05/06/2022 Chronic respiratory failure with hypoxia 022 Granulomatous lung disease 09/18/2021 Chronic rhinitis 06/10/2021 Schatzki's ring of distal esophagus 06/10/2021 Chronic right-sided heart failure 04/08/2020 Coronary artery disease invo lving [place] coronary artery of [place] heart without angina pectoris 11/21/2018 Abnormality of [...] as of this encounter (statuses as of 09/27/2023) Resolved Problems Problem Noted Date Diagnosed Date [...] and draped in usual sterile manner. 14 Serbian flexible cystoscope inserted into urethra and guided [...] as of this encounter (statuses as of 09/27/2023) Immunizations Name Administration Dates Next Due COVID-19 mRNA, LNP-s, No Pre serve, 2-Dose Series ([employer]) 05/14/2020,04/18/2020 H1N1 2009 Influenza, IM 04/22/2009 PPD [...] encounter Miscellaneous Notes * Telephone Encounter - Mark Reyes [facility] - 09/27/2023 2:00 PM EDTSigned Prescriptions: Disp Refills Pantoprazole Sodium 20 MG Oral Tablet Gaby*90 Tab*3 Sig: Take 1 Tablet by mouth in the morning. 30 minutes before the first meal of the day. Do not crush, split orchew the tablet.Authorizing Provider: Tabitha SARKAR User: MARK REYES documented in this encounter Plan of Treatment Upcoming Encounters Date Type Department Care Team (Late st Contact Info) Description 10/20/2023 7:00 AM EDT Office Visit Nephrology, [facility] [address] [facility] [place] [address] Yumiko Philippe MD 200 [facility] [place] [address] 11/30/2023 12:30 PM EDT Office Visit [facility] [address] [facility] [place] [address] Ely Cabrales MD [address] [place] [address] 12/20/2023 9:45 AM EDT Office Visit Urology, [facility] [address] [facility] [place] [address] Man Gu MD [address] [place] [address] 12/26/2023 11:20 AM EST Office Visit General Internal Medicine [facility] [address] [facility] [place] [address] Jennifer Sarkar MD [address] [facility] [place] [address] 03/16/2024 2:00 PM EST Office Visit Cardiology, [facility] [address] [place] [address] Job Bravo PA-C [address] [place] [address] Scheduled Procedures Name Priority Associated Diagnoses Date/Ti [...] D LEVEL ONCE IN A LIFETIME-USE SMARTSET# 34672 Completed 08/17/2023, 12/01/2022, 09/09/2021, Additional history exists [...] this encounter Medical Devices Implanted Type Area Wind Power Project Manager Device Identifier Shelf Expiration Date Model / Serial / Lot Lens Intraoc 23.0 - [id number] - [id number] Implanted:Qty: 1 on 12/21/2016 by Raj Bernard MD at OR [facility] Left: Eye [employer] LOMB 06/20/2021 [id number] / [id number] / Lens Intraoc 22.0 - [id number] - [id number] Implanted:Qty: 1 on 01/06/2017 by Raj Bernard MD at OR [facility] Right: Eye BAUSCH [employer] LOMB 08/20/2021 [id number] / [id number] / [id number] documented as of this encounter Visit Diagnoses Diagnosis History of gastroesophageal reflux (GERD) Personal history of other diseases of digestive system History of esophageal dilatation documented in this encounter Advance Directives * [...] Power of Attor bj? No Care Teams Case Management Social Worker Relationship Specialty Start Date End Date Jennifer Sarkar MD 200 [facility] [place] [address] PCP - General Internal Medicine 10/06/20 documented as of this encounter
--- OUTSIDE RECORDS SUMMARY | 2023-10-28 23:13 | External Medical Summary | Summary of Care ---
Author Name Unknown Organization [facility] Address [address] [facility] [place] [address] Phone [phone] Care Team Providers Care Traffic Analyst Name Role Phone Jennifer Sarkar MD Primary Care Provider [phone] Reason for Visit * Reason Comments Outpatient Testing Encounter Details Date Type Department Care Team (Late st Contact Info) Description 10/18/2023 11:10 AM EDT Laboratory Laboratory [facility] [place] [address] [place] [address] [place], [address] [place] [address] Bilateral nephrolithiasis; Hyperuricemia Allergies Active Allergy Reactions Criticality Noted Date [...] Active Additional Information Patient taking differently:1,000 mg [id number] PRN, ,may take 3rd dose in between [...] FOR DIZZINESS 30 Tablet 1 3 Active Montelukast Sodium 10 MG Oral Tablet (Singulair)Indication s:Chronic pansinusitis Take 1 Tablet by mouth in the morning. St 09/01/2022. 90 Tablet 3 3 Active Benzonatate 100 MG [...] exertion. Changed 03/23/23 1 Each 4 Active DULoxetine HCl 60 MG Oral Capsule Delayed Release Particles (Cymbalta)Indications :Chronic pain of both shoulders,Spinal stenosis of lumbar region without neurogenic claudication,Current moderate episode of major depressive disorder without prior episode (HCC) Take 1 Capsule by mouth in the morning. Do not cut, crush or chew--inc from 06/23/2023. 90 Capsule 1 4 Active Propranolol HCl 20 MG Oral [...] Oral Tablet (Lasix)Indications:Co ronary artery disease involving [place] coronary artery of [place] heart without angina pectoris,Chronic right-sided heart failure [...] FOR DEPRESSION 90 Tablet 1 4 Active documented as of this encounter (statuses as of 10/18/2023) Active Problems Problem Noted Date Diagnosed Date Hypercalcemia 12/03/2022 Supplemental oxygen dependent 05/06/2022 Nasal septal perforation 05/06/2022 Chronic respiratory failure with hypoxia 022 Granulomatous lung disease 09/18/2021 Chronic rhinitis 06/10/2021 Schatzki's ring of distal esophagus 06/10/2021 Chronic right-sided heart failure 04/08/2020 Coronary artery disease invo lving [place] coronary artery of [place] heart without angina pectoris 11/21/2018 Abnormality of [...] and draped in usual sterile manner. 14 Burmese flexible cystoscope inserted into urethra and guided [...] 7:00 AM EDT [facility], [facility] [address] [place] [address] Yumiko Philippe MD [address] [place] [address] 11/30/2023 12:30 PM EDT Office Visit Orthopaedics [facility] [address] [place] [address] Ely Cabrales MD [address] [place] [address] 12/20/2023 9:45 AM EDT Office Visit Urology, [facility] [address] [place] [address] Man Gu MD [address] [place] [address] 12/26/2023 11:20 AM EST Office Visit General Internal Medicine [facility] [address] [place] [address] Jennifer Sarkar MD [address] [place] [address] 03/16/2024 2:00 PM EST Office Visit Cardiology, [facility] [address] [place] [address] Job Bravo PA-C [address] [place] [address] Pending Results Name Type Priority Associated Diagnoses Date /Time URORISK(R) DIAGNOSTIC PROFILE Lab Routine Bilateral nephrolithiasis Hyperuricemia 10/18/2023 11:05 AM EDT Scheduled Procedures Name Priority Associated Diagnoses [...] D LEVEL ONCE IN A LIFETIME-USE SMARTSET# [id number] Completed 08/17/2023, 12/01/2022, 09/09/2021, Additional history exists [...] this encounter Medical Devices Implanted Type Area Instructional Systems Design Consultant Device Identifier Shelf Expiration Date Model / Serial / Lot Lens Intraoc 23.0 - [id number] - [id number] Implanted:Qty: 1 on 12/21/2016 by Raj Bernard MD at OR [facility] Left: Eye [employer]OMB 06/20/2021 [id number] / [id number] / Lens Intraoc 22.0 - [id number] - [id number] Implanted:Qty: 1 on 01/06/2017 by Raj Bernard MD at OR [facility] Right: Eye [employer]OMB 08/20/2021 [id number] / [id number] / [id number] documented as of this encounter Visit Diagnoses Diagnosis Bilateral nephrolithiasis Hyperuricemia Other abnormal blood chemistry documented in [...] Power of Attor bj? No Care Teams Traffic Analyst Relationship Specialty Start Date End Date Jennifer Sarkar MD 200 [facility], [place] [id number] PCP - General Internal Medicine 10/06/20 documented as of this encounter
--- OUTSIDE RECORDS SUMMARY | 2023-10-28 23:13 | External Medical Summary | Summary of Care ---
Author Name Unknown Organization [facility] Address [address] [facility] [place] [address] Phone [phone] Care Team Providers Care Manager Garage Name Role Phone Domenica Sarkar MD Primary Care Provider [phone] Reason for Visit * Reason Comments NEW PATIENT Kidney Stone * Evaluate & Treat - Unlimited Visits (Within 30 days (routine)) - Closed Specialty Diagnoses / Procedures Referred By Controslyn t Referred To Contact Nephrology Diagnoses Bilateral nephrolithiasis Hyperuricemia Domenica Sarkar MD [address] [facility] [place] [address] Referral ID Status Reason Start Date Expiration Date V isits Requested Visits Authorized [id number] Closed Specialty Services Required 12/01/[phone] Encounter Details Date Type Department Care Team (Late st Contact Info) Description 10/20/2023 7:00 AM EDT Office Visit Nephrology, [place] [address] [place] [address] Yumiko Philippe MD [address] [facility] [place] [address] Nephrolithiasis*; Chronic right-sided heart failure (HCC); Polypharmacy; Hematuria, microscopic; Hyperuricemia Allergies Active Allergy Reactions Criticality Noted [...] Active Additional Information Patient taking differently:1,000 mg [id number] PRN, ,may take 3rd dose in between [...] Oral Tablet (Lasix)Indications:Co ronary artery disease involving oscarville coronary artery of oscarville heart without angina pectoris,Chronic right-sided heart failure [...] failure 04/08/2020 Coronary artery disease invo lving oscarville coronary artery of oscarville heart without angina pectoris 11/21/2018 Abnormality of [...] and draped in usual sterile manner. 14 Occitan flexible cystoscope inserted into urethra and guided [...] Sign Reading Time Taken Comments Blood Pressure 115/66 10/20/2023 7:13 AM EDT Pulse 62 10/20/2023 7:13 AM EDT Temperature 36.3 C (97.3 F) 10/20/2023 7:13 AM ED T Respiratory Rate 20 10/20/2023 7:13 AM EDT Oxygen Saturation 92% 10/20/2023 7:13 AM EDT ON OXYGEN Inhaled Oxygen Concentration - - Weight 74.4 kg (164 lb) 10/20/2023 7:13 AM EDT Height - - Body Mass Index 27.29 06/22/2023 5:24 PM EDT documented in this encounter Patient Instructions * Patient Instructions* Yumiko Philippe MD - 10/20/2023 7:52 AM EDT -no medication changes today -blood and urine tests today -will follow up on pending 24 hour urine test >>based on blood and urine tests will let you know if we need to change medicine or not -eat a low sodium diet (less than 2000 mg or 1/2 tsp) daily -avoid medicines like aleve, advil, ibuprofen, aspirin more than 81 mg daily and other NSAIDS whichare not good for kidney patients. Take only tylenol (acetaminophen) up to 2000 mg daily as needed for pain or as directed by your primary care provider. -change a bit of how you drink >> drink 8 oz water at least daily and more would be better and try to cut down a bit on sweet tea; aim for at least 40 oz daily intake ->if you need to follow up more with us, will let you know >keep following with urology documented in this encounter Progress Notes * Yumiko Philippe MD - 10/20/2023 7:07 AM EDT NEPHROLOGY CLINIC NOTE Ne[facility] [address] [facility] [address] 10/20/2023, 7:07 AM Patient Name: Fabian Starks Fabian Starks is a 83 year old male being seen in consultation today in Nephrology clinic, at the request of Domenica Sarkar MD for BL nephrolithiasis and hyperuricemia. Past Medical History: Diagnosis Date Acquired hypothyroidism ANGIOPLASTY WITH CORONARY STENT TO LAD - bare Metal 10/16/2008 Calculus of ureter 04/01/2005 Chronic respiratory failure with hypoxia (HCC) 11/14/2021 Chronic right-sided heart failure (HCC) 04/08/2020 Coronary artery disease involving oscarville coronary artery of oscarville heart without angina pectoris 11/21/2018 Dyslipidemia, goal [...] Nocturnal hypoxemia 06/08/2007 3 LPM at bedtime [email or web address] OBSTRUCTIVE SLEEP APNEA - refuses CPAP 01/15/2008 uses oxygen at night Osteoporosis Schatzki's ring Sleep apnea, obstructive SPINAL STENOSIS-LUMBAR 07/29/2005 Patient Active Problem List Diagnosis Acquired hypothyroidism Congenital anomaly of lung Essential tremor Idiopathic scoliosis SPINAL STENOSIS-LUMBAR Nocturnal hypoxemia Severe obstructive sleep apnea ANGIOPLASTY WITH CORONARY STENT TO LAD - bare Metal Old myocardial infarct HTN, GOAL BELOW 140/90 Dyslipidemia, goal LDL below 70 EDITH inhibitor intolerance Restrictive lung disease Elevated hemidiaphragm Senile osteoporosis Current moderate episode of major depressive disorder without prior episode (HCC) Displaced fracture of middle third of navicular bone of right wrist with delayed healing Coronary artery disease involving oscarville coronary artery of oscarville heart without angina pectoris Abnormality of gait Chronic right-sided heart failure (HCC) Chronic rhinitis Schatzki's ring of distal esophagus Granulomatous lung disease (HCC) Chronic respiratory failure with hypoxia (HCC) Supplemental oxygen dependent Nasal septal perforation Hypercalcemia HPI: 83 year old male presents for evaluation of bilateral nephrolithiasis and elevated uric acid levels. Past Medical history includes coronary artery disease status post 2008 stenting, hypertension, frequent ventricular ectopy, right heart failure chronic peripheral edema, severe multifactorial lung disease a combination of asthma and untreated severe obstructive sleep apnea and restriction secondaryto chronically elevated right hemidiaphragm on 24/7 oxygen 3 L and 4 with exertion, essential tremor on propranolol, severe thoracolumbar scoliosis, hypothyroid, esophageal ring, conservatively manage C2 fracture 2020 after a fall, lumbar spinal stenosis, chronic ambulatory dysfunction, moderate LUTS and prostatic hypertrophy. Has BL rotator cuff pain >> getting injections. Weighs himself da nuha > feels best at weight 161 lb; was 161.4 this am. He established with Urology July 2023 [facility]. Long history of stones. Admitted July 02 to [facility] for ambulatory dysfunction and hematuria. Just completed urorisk > results pending; no gout attacks ever that he can recall STONE PROFILE Stone type : unknown First stone event: cannot recall Most recent stone event: cannot recall, for sure none past 4 years Urologist: Dr Gu Most recent urologic procedure: lithotripsy 2005 L stone Most recent 24 hr urine: September 2023, results pending Most recent imaging: June 2023 [facility] CT15mm nonobstructing stone L collecting system w/ ureteral thickening unchanged from prior exam, nonobstructing right nephrolithiasis, diffuse bladder wall thickening and prostatomegaly Stone meds: none Daily fluid intake: kayla sweet tea 32 oz daily, sips of water, occasional decaf coffee; no EtOH;occasional orange juice; some 1% milk Family history of CKD or ESRD: none; nephew d/o metastatic cancer NSAID use: N Last hospital stay: June 2023 weakness, fall, hematuria Acc by his neighbor today who's been bringing him to med appts since 2019. Lives independently in community. REVIEW OF SYSTEMS: No F/C, unintended wt loss or gain No new neck stiffness No palpitations, orthopnea, stable chronic reasonably controlled LE edema No cough, wheeze, or worsening dyspnea No N/V/D/C/abd pain; no flank or groin pain Intermittent dysuria but none recently - better on finasteride; denies gross hematuria, nocturia improved and under 2X; no new or worrisome voiding symptoms No worsening chronic joint/muscle aches No worsening tremor; no seizures, worsening focal or global weakness or paresthesias No orthostatic or presyncopal symptoms; no falls Current Outpatient Medications Medication Sig Dispense Refill Zoledronic Acid 5 MG/100ML Intravenous Solution Administer 5 mg intravenously once. Yearly administration Ipratropium-Albuterol 20-100 MCG/ACT Inhalation Aerosol Solution (Combivent Respimat) Inhale 1 Puffby mouth in the morning and 1 Puff at noon and 1 Puff in the evening and 1 Puff before bedtime. 4 g2 Meclizine HCl 12.5 MG Oral Tablet (Antivert) TAKE 1 TABLET BY MOUTH THREE TIMES A DAY NEEDED FORDIZZINESS 30 Tablet 1 Clopidogrel Bisulfate 75 MG Oral Tablet (pLAVix) TAKE 1 TABLET DAILY 90 Tablet 1 oxyCODONE HCl 5 MG Oral Tablet (Oxy IR) Take 1 Tablet by mouth every 8 hours as needed for Pain, Severe. oxygen IN GAS Use 3lpm continuous, increased to 4lpm with exertion. Changed 03/23/23 1 Each 0 Propranolol HCl 20 MG Oral Tablet (Inderal) Take 1 Tablet by mouth in the morning and 1 Tablet at noon and 1 Tablet before bedtime. 270 Tablet 3 Finasteride 5 MG Oral Tablet (Proscar) Take 1 Tablet by mouth in the morning. 90 Tablet 3 Magnesium Hydroxide 400 MG/5ML Oral Suspension (Mom) Take 30 mL by mouth. Furosemide 40 MG Oral Tablet (Lasix) 40 mg in the AM and 20 mg in the early afternoon 135 Tablet 3 Rosuvastatin Calcium 5 MG Oral Tablet (Crestor) TAKE 1 TABLET BY MOUTH EVERY DAY 30 Tablet 1 Levothyroxine Sodium 112 MCG Oral Tablet (Levoxyl) TAKE 1 TABLET BY MOUTH IN THE MORNING. (AT LEAST30 MIN PRIOR TO BREAKFAST OR OTHER MEDS) 90 Tablet 1 Pantoprazole Sodium 20 MG Oral Tablet Delayed Release (Protonix) Take 1 Tablet by mouth in the morning. 30 minutes before the first meal of the day. Do not crush, split or chew the tablet. 90 Tablet 3 Tamsulosin HCl 0.4 MG Oral Capsule (Flomax) TAKE 1 CAPSULE BY MOUTH EVERYDAY AT BEDTIME 90 Capsule 1 Citalopram Hydrobromide 20 MG Oral Tablet (CeleXA) TAKE 1 TABLET BY MOUTH EVERY DAY FOR DEPRESSION 90 Tablet 1 Montelukast Sodium 10 MG Oral Tablet (Singulair) TAKE 1 TABLET BY MOUTH IN THE MORNING. ST 09/01/2022. 90 Tablet 3 DULoxetine HCl 60 MG Oral Capsule Delayed Release Particles (Cymbalta) TAKE 1 CAPSULE BY MOUTH IN THE MORNING. DO NOT CUT, CRUSH OR CHEW--INC FROM 06/23/2023. 90 Capsule 3 NITROGLYCERIN 0.4 MG SL SUBL 1every 5 min as needed with chest pain up to 3 doses in 15 minutes 25 Tab 11 Acetaminophen 500 MG Oral Tablet (Tylenol) Take by mouth 2 Tablets in the morning AND 2 Tablets before bedtime. ,may take 3rd dose in between --12/21/2021. (Patient taking differently: Take 2 Tabletsby mouth every 6 hours as needed. ,may take 3rd dose in between --12/21/2021) 1 Tablet 0 Albuterol Sulfate HFA 108 (90 Base) MCG/ACT Inhalation Aerosol Solution Inhale 2 Puffs by mouth every 6 hours as needed for Wheezing. 18 g 0 Saline Nasal Gel (Nasogel) Administer into each nostril daily. For dryness(nasal septal perforation) 14 g 0 Benzonatate 100 MG Oral Capsule Take 1 Capsule by mouth 3 times a day as needed for Cough. (Patientnot taking: Reported on 09/08/2023) 30 Capsule 1 No current facility-administered medications for this visit. Review of patient's allergies indicates: Allergen Reactions Tramadol Other (Please comment) Hallucinations Food (See Comments) Other reaction(s): WAS TOLD NOT TO TAKE grapefruit Social History Socioeconomic History Marital status: Spouse name: Not on file Number of children: 2 Years of education: Not on file Highest education level: Not on file Occupational History Occupation: [employer] Employer: [email or web address] [email or web address] Comment: 30 yrs Tobacco Use Smoking status: Former Types: Pipe, Cigars Quit date: 1961 Years since quittin.7 Smokeless tobacco: Never Tobacco comments: Smoked a occasional pipe or cigar socially when was younger. Vaping Use Vaping status: Never Used Substance and Sexual Activity Alcohol use: Yes Comment: rarely Drug use: No Sexual activity: Not on file Other Topics Concern Not on file Social History Narrative Not on file Social Determinants of Health Financial Resource Strain: Not on file Food Insecurity: No Food Insecurity (03/12/2019) Hunger Vital Sign Worried About Running Out of Food in the Last Year: Never true Ran Out of Food in the Last Year: Never true Transportation Needs: Not on file Social Connections: Unknown (08/09/2023) Social Connections How often do you feel lonely or isolated from those around you? (Adult - for ages 18 years and over): Not on file Housing Stability: Not on file Family History Problem Relation Name Age of Onset Diabetes Mother Type II Cancer Aunt (Unspecified) maternal Arthritis None Cancer Other nephew 26 lung cancer Family Status Relation Status Mo Fa Sis Alive Ricardo Alive Son Alive AUNT (Not Specified) NONE (Not Specified) Other (Not Specified) PHYSICAL EXAMINATION: BP Readings from Last 6 Encounters: 10/20/23 115/66 09/08/23 130/82 06/22/23 114/80 03/23/23 112/70 12/21/22 112/62 12/20/22 110/70 Wt Readings from Last 6 Encounters: 10/20/23 74.4 kg (164 lb) 09/08/23 73.5 kg (162 lb) 08/11/23 73 kg (161 lb) 06/22/23 74.8 kg (164 lb 12.8 oz) 03/23/23 71.6 kg (157 lb 14.4 oz) 12/21/22 73.3 kg (161 lb 8 oz) Pulse Readings from Last 6 Encounters: 10/20/23 62 09/08/23 60 06/22/23 68 03/23/23 69 12/21/22 64 12/20/22 61 NAD, oriented x 3, ambulatory w/ cane; on 3L 02 Normocephalic, atraumatic, eomi nonicteric sclerae MMM, poor dentition Supple neck RRR w/o m/g/r; 2+ BLE ankle edema CTAB w/ reduced air mvt; diminished R base NT abd, +BS, soft, lordotic spine No CVA TTP, no diaper or ramos No cyanosis or clubbing + axial tremor, focal or global weakness; fluent speech, good historian; slight psychomotor slowing LABS: Recent Labs Units 09/08/23 1524 08/17/23 0838 03/23/23 1305 12/01/22 1222 04/06/22 1244 SODIUM - [facility] mmol/L 140 -- 140 140 141 POTASSIUM - [facility] mmol/L 4.2 -- 4.5 4.2 4.1 CHLORIDE - [facility] mmol/L 95* -- 98 97* 98 CO2 - [facility] mmol/L 35* -- 31 31 32 BUN - [facility] mg/dL 14 -- 10 8 12 CREATININE - [facility] mg/dL 1.0 0.9 0.9 0.9 1.1 ESTIMATED GLOMERULAR FILTRATION RATE - [facility] mL/min 78 86 87 87 66 Recent Labs Units 08/11/22 1027 HGB g/dL 17.0* Recent Labs Units 09/08/23 1524 08/17/23 0838 03/23/23 1305 12/01/22 1222 CALCIUM - [facility] mg/dL 10.1 10.1 10.5* 10.6* PHOSPHORUS - [facility] mg/dL -- -- -- 3.7 25-HYDROXY VITAMIN D - [facility] ng/mL -- 27 -- 35 PTH - [facility] pg/mL -- -- -- 37 No results for input(s): "HGBA1C" in the last 80697 hours. No results for input(s): "ALBCREHIDE", "ALBCREURN", "PROTCREATRAT" in the last 51724 hours. Recent Labs Units 12/01/22 1224 CLARITY, URINE - [facility] Clear GLUCOSE, URINE - [facility] mg/dL Negative BILIRUBIN, URINE - [facility] Negative KETONE, URINE - [facility] mg/dL Negative SPECIFIC GRAVITY, URINE - [facility] 1.014 BLOOD, URINE - [facility] Trace* PH, URINE - [facility] Units 7.0 PROTEIN, URINE - [facility] mg/dL Trace* UROBILINOGEN, URINE - [facility] mg/dL Normal NITRITE, URINE - [facility] Negative ESTERASE, URINE - [facility] Negative BACTERIA, URINE - [facility] /HPF 0-25 WBC, URINE - [facility] /HPF 3-5* RBC, URINE - [facility] /HPF 6-9* PERTINENT IMAGING INFO: Two thousand eighteen CT abdomen pelvis noncontrast (report highlights) HEART(visualized): Dense coronary vascular calcification partially visualized. Calcified hilar lymph nodes compatible with prior granulomatous disease. Bilateral gynecomastia partially visualized. ADRENALS: Unremarkable KIDNEYS/URETERS: No hydronephrosis. Bilateral renal cysts. Bilateral nonobstructing nephrolithiasis, the largest on the left measuring 13 millimeters, and the largest on the right within the inferior polemeasuring 9 millimeters. Mild fullness of the left renal pelvis is similar to examination from April 13, 2011, possibly representing an extrarenal pelvis. Normal bilateral ureteral course and caliber. BLADDER: Urachal remnant again noted. VESSELS: Atherosclerotic calcification of the abdominal aorta. BONES: Marked scoliotic curvature of the visualized spine. IMPRESSION 1. Bilateral nonobstructing nephrolithiasis. 2. Marked scoliosis. CT [facility] June 2023 15mm nonobstructing stone L collecting system w/ ureteral thickening unchanged from prior exam, nonobstructing right nephrolithiasis, diffuse bladder wall thickening and prostatomegaly ASSESSMENT AND PLAN: Nephrolithiasis (Primary) - URINALYSIS WITH MICROSCOPIC EXAM - URIC ACID Chronic right-sided heart failure (HCC) Polypharmacy Hematuria, microscopic - URINALYSIS WITH MICROSCOPIC EXAM Hyperuricemia - URIC ACID Follow-up: Return if symptoms worsen or fail to improve. | Check-out note: -to lab This patient has a long history greater than 20 or 30 years of bilateral nephrolithiasis. His most recent urologic procedure for these stones was in 2005. Stone composition unknown. He has not had anactive or symptomatic stone event that he can recall ever and certainly not in the past 4 years. Hehas multiple competing comorbidities including polypharmacy and right heart failure severe enough to require active volume management strategies with daily standing weights and twice daily Lasix therapy. -encourage change to his customary fluid intake as below -no indication to change diuretics at this time but will evaluate uro risk for final answer on this -continue Urology follow-up Hyperuricemia without history of active or past gout, though he does have risk factors Intermittent uric acid elevations on past labs -will update current labs and consider need for uric acid lowering therapy if any Patient Instructions -no medication changes today -blood and urine tests today -will follow up on pending 24 hour urine test >>based on blood and urine tests will let you know if we need to change medicine or not -eat a low sodium diet (less than 2000 mg or 1/2 tsp) daily -avoid medicines like aleve, advil, ibuprofen, aspirin more than 81 mg daily and other NSAIDS whichare not good for kidney patients. Take only tylenol (acetaminophen) up to 2000 mg daily as needed for pain or as directed by your primary care provider. -change a bit of how you drink >> drink 8 oz water at least daily and more would be better and try to cut down a bit on sweet tea; aim for at least 40 oz daily intake ->if you need to follow up more with us, will let you know >keep following with urology Yumiko Philippe MD CC: REF: DOMENICA SARKAR [address] [place] [id number] (office) [phone] (fax) PCP: DOMENICA SARKAR Dr [place] [address] [phone] This chart was completed in part utilizing [employer] Speech Voice Recognition Software. Randomword insertions, pronoun errors, and incomplete sentences are an occasional consequence of this system due to software limitations, and ambient noise. Any questions or concerns about the content, text, or information contained within the body of this dictation should be directly addressed to the provider for clarification. documented in this encounter Nursing Notes * Pippa Ryan RN - 10/20/2023 7:16 AM EDT New patient today referred by PCP for hx of kidney stones. Recent urorisk done and results not backyet. No recent hospital stays. Is oxygen dependent. States he takes propranolol for tremors which is noted on assessment. Is on Furosemide and states that he does have some swelling in his legs and across his abdomen at times. Neighbor is with him today. documented in this encounter Plan of Treatment Upcoming Encounters Date Type Department Care Team (Late st Contact Info) Description 10/25/2023 10:20 AM EDT Office Visit General Internal Medicine [facility] [address] [facility] [place] [address] Domenica Sarkar MD [address] [facility] [place] [address] 11/30/2023 12:30 PM EDT Office Visit Orthopaedics [facility] [address] [facility] [place] [address] Ely Cabrales MD [address] [facility] [place] [address] 12/20/2023 9:45 AM EDT Office Visit Urology, [facility] [address] [place] [address] Man Gu MD [address] [place] [id number] 12/26/2023 11:20 AM EST Office Visit General Internal Medicine [facility] [address] [facility] [place], [place] [address] Domenica Sarkar MD [address] [place] [address] 03/16/2024 2:00 PM EST Office Visit Cardiology, [facility] [address] [facility] [place] [address] Job Bravo PA-C [address] [place] [address] Scheduled Orders Name Type Priority Associated Diagnoses Orde r Schedule URINALYSIS WITH MICROSCOPIC EXAM Lab Routine Hematuria, microscopic Nephrolithiasis Ordered: 10/20/2023 URIC ACID Lab Routine Nephrolithiasis Hyperuricemia Ordered: 10/20/2023 Scheduled Procedures Name Priority Associated Diagnoses Date/Ti [...] D LEVEL ONCE IN A LIFETIME-USE SMARTSET# [id number] Completed 08/17/2023, 12/01/2022, 09/09/2021, Additional history exists [...] this encounter Medical Devices Implanted Type Area Medical Case Worker Device Identifier Shelf Expiration Date Model / Serial / Lot Lens Intraoc 23.0 - [id number] - [id number] Implanted:Qty: 1 on 12/21/2016 by Raj Bernard MD at [facility] Left: Eye [employer] 06/20/2021 [id number] / [id number] / Lens Intraoc 22.0 - [id number] - [id number] Implanted:Qty: 1 on 01/06/2017 by Raj Bernard MD at [facility] Right: Eye [employer] 08/20/2021 [id number] / [id number] / [id number] documented as of this encounter Visit Diagnoses Diagnosis Nephrolithiasis- Primary Calculus of kidney Chronic right-sided heart failure (HCC) Congestive heart failure, unspecified Polypharmacy Encounter for long-term (current) use of other medications Hematuria, microscopic Microscopic hematuria Hyperuricemia Other abnormal blood chemistry documented in [...] Power of Attor bj? No Care Teams Manager Garage Relationship Specialty Start Date End Date Domenica Sarkar MD [address] [place] [id number] PCP - General Internal Medicine 10/06/20 documented as of this encounter
--- OUTSIDE RECORDS SUMMARY | 2023-10-28 23:13 | External Medical Summary | Summary of Care ---
Author Name Unknown Organization [facility] Address [address] [facility] [place] [address] Phone [phone] Care Team Providers Care Crab Butcher Name Role Phone Jennifer Sarkar MD Primary Care Provider [phone] Encounter Details Date Type Department Care Team (Late st Contact Info) Description 10/17/2023 Telephone General Internal Medicine [facility] 200 [facility] [place] [address] Jennifer Sarkar MD 200 [facility] [place] [address] Allergies Active Allergy Reactions Criticality Noted Date Comments Food (See Comments) 03/21/2018 Other reaction(s): WAS TOLD NOT TO TAKE grapefruit Tramadol Other (Please comment) High 10/06/2020 Hallucinations documented as of this encounter (statuses as of 10/19/2023) Medications Medication Sig Dispensed Refills Start Date [...] Active Additional Information Patient taking differently:1,000 mg [id number] PRN, ,may take 3rd dose in between [...] DIZZINESS 30 Tablet 1 08/11/19 23 Active Benzonatate 100 MG Oral CapsuleIndications:A [...] hours as needed for Pain, Severe. 01/10/20 23 Active oxygen 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:Chron ic [...] Oral Tablet (Lasix)Indications:C oronary artery disease involving tlingit & haida coronary artery of tlingit & haida heart without angina pectoris,Chronic right-sided heart failure [...] as of this encounter (statuses as of 10/19/2023) Active Problems Problem Noted Date Diagnosed Date Hypercalcemia 12/03/2022 Supplemental oxygen dependent 05/06/2022 Nasal septal perforation 05/06/2022 Chronic respiratory failure with hypoxia 022 Granulomatous lung disease 09/18/2021 Chronic rhinitis 06/10/2021 Schatzki's ring of distal esophagus 06/10/2021 Chronic right-sided heart failure 04/08/2020 Coronary artery disease invo lving tlingit & haida coronary artery of tlingit & 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 14 Czech flexible cystoscope inserted into urethra and guided [...] as of this encounter (statuses as of 10/19/2023) Immunizations Name Administration Dates Next Due COVID-19 mRNA, LNP-s, No Pre serve, 2-Dose Series ([employer]) 05/14/2020,04/18/2020 H1N1 2009 Influenza, IM 04/22/2009 PPD [...] encounter Miscellaneous Notes * Telephone Encounter - Piotr Lomas OSA - 10/19/2023 8:47 AM EDT Patient scheduled * Telephone Encounter - Piotr Lomas OSA - 10/17/2023 11:57 AM EDT LMOM * Telephone Encounter - Sujit Nowak CMA - 10/17/2023 10:51 AM EDT Please assist pt in rescheduling hospital discharge, no showed on 10.16. documented in this encounter Plan of Treatment Upcoming Encounters Date Type Department Care Team (Late st Contact Info) Description 10/20/2023 7:00 AM EDT Office Visit NephrologyJuan [address] [place], [place] [id number] Yumiko Philippe MD [address] [place] [address] 10/25/2023 10:20 AM EDT Office Visit General Internal Medicine [facility] [address] [facility] [place] [address] Jennifer Sarkar MD 200 [facility] [place] [address] 11/30/2023 12:30 PM EDT Office Visit Orthopaedics [facility] [address] [place] [address] Ely Cabrales MD 132 [facility] [place] [address] 12/20/2023 9:45 AM EDT Office Visit Urology, [facility] [address] [facility] [place] [address] Man Gu MD 27 [place] [address] 12/26/2023 11:20 AM EST Office Visit General Internal Medicine [facility] [address] [facility] [place] [address] Jennifer Sarkar MD 200 [facility] [place], [place] [address] 03/16/2024 2:00 PM EST Office Visit Cardiology, [facility] [address] [place] [address] Job Bravo PA-C [address] [place] [address] Scheduled Procedures Name Priority Associated Diagnoses Date/Ti me COLONOSCOPY FLEXIBLE PROXIMAL DIAGNOSTIC Recall History of colon polyps Health Maintenance Due Date Last Done Comments Adult Wellness Visit 11/29/2017 11/29/2016 Colonoscopy 06/03/2022 06/03/2017, 02/01/2007 Depression Monitoring 09/09/2022 09/09/2021 COVID-19 Vaccine (3 - season) 2022 05/14/2020, 04/18/2020 Influenza Vaccine (FLU [...] D LEVEL ONCE IN A LIFETIME-USE SMARTSET# [id number] Completed 08/17/2023, 12/01/2022, 09/09/2021, Additional history exists [...] this encounter Medical Devices Implanted Type Area Blasting Cap Assembler Device Identifier Shelf Expiration Date Model / Serial / Lot Lens Intraoc 23.0 - [id number] - [id number] Implanted:Qty: 1 on 12/21/2016 by Raj Bernard MD at OR [facility] Left: Eye BAUSCH & LOMB 06/20/2021 [id number] / [id number] / Lens Intraoc 22.0 - [id number] - [id number] Implanted:Qty: 1 on 01/06/2017 by Raj Bernard MD at [facility] Right: Eye BAUSCH & LOMB 08/20/2021 [id number] / [id number] / [id number] documented as of this encounter Advance Directives [...] Power of Attor bj? No Care Teams Crab Butcher Relationship Specialty Start Date End Date Jennifer Sarkar MD 200 [facility] [place] [address] PCP - General Internal Medicine 10/06/20 documented as of this encounter
--- OUTSIDE RECORDS SUMMARY | 2023-10-28 23:13 | External Medical Summary ---
Author Name Unknown Address Unknown Organization K01:[facility] [address] [address] Laboratory Report Ordering Provider Test Date Status SHIRA MACK 10/20/2023 08:26:30 Final Observation Date Value Abnormality Reference (Units ) Status Uric Acid 10/20/2023 08:26:30 7.1 Above high normal 3. 4-7.0 (mg/dL) Final Performing Location [facility] - [address] [address]
--- OUTSIDE RECORDS SUMMARY | 2023-10-28 23:13 | External Medical Summary | Summary of Care ---
Author Name Unknown Organization [facility] Address [address] [facility] [place] [address] Phone [phone] Care Team Providers Care Dinkey Operator Slag Name Role Phone Jennifer Sarkar MD Primary Care Provider [phone] Reason for Visit * Reason Comments Outpatient Testing Encounter Details Date Type Department Care Team (Late st Contact Info) Description 10/20/2023 8:10 AM EDT Laboratory Laboratory [facility] [place] [address] [place] [address] [place], Lab Scenery [address] [place] [address] Senile osteoporosis; Encounter for monitoring diuretic therapy Allergies Active Allergy Reactions Criticality Noted Date [...] Active Additional Information Patient taking differently:1,000 mg ZgreS7V PRN, ,may take 3rd dose in between [...] Oral Tablet (Lasix)Indications:Co ronary artery disease involving [place] coronary artery of [place] heart without angina pectoris,Chronic right-sided heart failure [...] failure 04/08/2020 Coronary artery disease invo lving [place] coronary artery of [place] heart without angina pectoris 11/21/2018 Abnormality of [...] and draped in usual sterile manner. 14 Urdu flexible cystoscope inserted into urethra and guided [...] mRNA, LNP-s, No Pre serve, 2-Dose Series ([employer] 05/14/2020,04/18/2020 H1N1 2009 Influenza, IM 04/22/2009 PPD [...] AM EDT Office Visit General Internal Medicine [facility] [address] [place] [address] Jennifer Sarkar MD [address] [facility] [place] [address] 11/30/2023 12:30 PM EDT Office Visit Orthopaedics [facility] [address] [place] [address] Ely Cabrales MD 132 [place] [address] 12/20/2023 9:45 AM EDT Office Visit Urology, [facility] [address] [place] [address] Man Gu MD 27 [place] [address] 12/26/2023 11:20 AM EST Office Visit General Internal Medicine [facility] [address] [place] [address] Jennifer Sarkar MD [address] [place] [address] 03/16/2024 2:00 PM EST Office Visit Cardiology, [facility] [address] [place] [address] Job Bravo PA-C [address] [place] [address] Pending Results Name Type Priority Associated Diagnoses Date /Time 25-HYDROXY VITAMIN D Lab Routine Senile osteoporosis 10/20/2023 8:26 AM EDT BASIC METABOLIC PANEL Lab Routine Encounter for monitoring diuretic therapy 10/20/2023 8:26 AM EDT Scheduled Procedures Name Priority Associated [...] D LEVEL ONCE IN A LIFETIME-USE SMARTSET# [id number] Completed 08/17/2023, 12/01/2022, 09/09/2021, Additional history exists [...] this encounter Medical Devices Implanted Type Area Weatherstrip Machine Operator Device Identifier Shelf Expiration Date Model / Serial / Lot Lens Intraoc 23.0 - [id number] - [id number] Implanted:Qty: 1 on 12/21/2016 by Rja Bernard MD at OR [facility] Left: Eye BAUSCH & LOMB 06/20/2021 [id number] / [id number] / Lens Intraoc 22.0 - [id number] - [id number] Implanted:Qty: 1 on 01/06/2017 by Raj Bernard MD at OR [facility] Right: Eye BAUSCH & LOMB 08/20/2021 [id number] / [id number] / [id number] documented as of this encounter Visit Diagnoses Diagnosis Senile osteoporosis Encounter for monitoring diuretic therapy Encounter for therapeutic drug monitoring documented in this encounter Advance Directives * [...] Power of Attor bj? No Care Teams Dinkey Operator Slag Relationship Specialty Start Date End Date Jennifer Sarkar MD [address] [place] [address] PCP - General Internal Medicine 10/06/20 documented as of this encounter
--- OUTSIDE RECORDS SUMMARY | 2023-10-28 23:13 | External Medical Summary | Summary of Care ---
Author Name Unknown Organization [facility] Address [address] [place] [address] Phone [phone] Care Team Providers Care Senior Copywriter Name Role Phone Jennifer Sarkar MD Primary Care Provider [phone] Reason for Visit * Reason Onset Date Comments Appointment 09/21/2023 Encounter Details Date Type Department Care Team (Late st Contact Info) Description 09/21/2023 Telephone General Internal Medicine [facility] 200 [place] [address] Jennifer Sarkar MD 200 [place] [address] Appointment Allergies Active Allergy Reactions Criticality Noted Date Comments Food (See Comments) 03/21/2018 Other reaction(s): WAS TOLD NOT TO TAKE grapefruit Tramadol Other (Please comment) High 10/06/2020 Hallucinations documented as of this encounter (statuses as of 10/14/2023) Medications Medication Sig Dispensed Refills Start Date [...] Active Additional Information Patient taking differently:1,000 mg HgurK7G PRN, ,may take 3rd dose in between [...] Oral Tablet (Lasix)Indications :Coronary artery disease involving tlingit & haida coronary [...] as of this encounter (statuses as of 10/14/2023) Active Problems Problem Noted Date Diagnosed Date [...] hypoxemia 06/08/2007 Overview: 3 LPM at bedtime [email or web address] SPINAL STENOSIS-LUMBAR 07/29/2005 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 Essential tremor documented as of this encounter (statuses as of 10/14/2023) Resolved Problems Problem Noted Date Diagnosed Date [...] and draped in usual sterile manner. 14 Citizen [place] flexible cystoscope inserted into urethra and guided [...] as of this encounter (statuses as of 10/14/2023) Immunizations Name Administration Dates Next Due COVID-19 mRNA, LNP-s, No Pre serve, 2-Dose Series ([employer]) 05/14/2020,04/18/2020 H1N1 2009 Influenza, IM 04/22/2009 PPD [...] encounter Miscellaneous Notes * Telephone Encounter - Melvin Trujillo OSA - 10/03/2023 8:23 AM EDT [...] AM EDT Office Visit General Internal Medicine [facility] [address] [place] [address] Jennifer Sarkar MD 200 [facility] [place] [address] 10/20/2023 7:00 AM EDT Office Visit Nephrology, [facility] 200 [place] [place] [address] Yumiko Philippe MD 200 [facility] [place] [address] 11/30/2023 12:30 PM EDT Office Visit Orthopaedics [facility] [address] [place] [address] Ely Cabrales MD [address] [place] [address] 12/20/2023 9:45 AM EDT Office Visit Urology, [facility] 132 [facility] [place] [address] Man Gu MD [address] [place] [address] 12/26/2023 11:20 AM EST Office Visit General Internal Medicine [facility] 200 [facility] [place] [address] Jennifer Sarkar MD 200 [facility] [place] [address] 03/16/2024 2:00 PM EST Office Visit Cardiology, [facility] 132 [facility] [place] [address] Job Bravo PA-C 132 [facility] [place] [address] Scheduled Procedures Name Priority Associated Diagnoses Date/Ti [...] D LEVEL ONCE IN A LIFETIME-USE SMARTSET# [id number] Completed 08/17/2023, 12/01/2022, 09/09/2021, Additional history exists [...] this encounter Medical Devices Implanted Type Area Damascener Device Identifier Shelf Expiration Date Model / Serial / Lot Lens Intraoc 23.0 - [id number] - [id number] Implanted:Qty: 1 on 12/21/2016 by Raj Bernard MD at OR [facility] Left: Eye BAUSCH & LOMB 06/20/2021 [id number] / [id number] / Lens Intraoc 22.0 - [id number] - [id number] Implanted:Qty: 1 on 01/06/2017 by Raj Bernard MD at OR [facility] Right: Eye BAUSCH & LOMB 08/20/2021 [id number] / [id number] / [id number] documented as of this encounter Advance Directives [...] Power of Attor bj? No Care Teams Senior Copywriter Relationship Specialty Start Date End Date Jennifer Sarkar MD 200 [place] [address] PCP - General Internal Medicine 10/06/20 documented as of this encounter
--- OUTSIDE RECORDS SUMMARY | 2023-10-28 23:13 | External Medical Summary ---
Author Name Unknown Address Unknown Organization K09:[facility] [place] [address] Laboratory Report Ordering Provider Test Date Status ROBER ENRIQUEZ 10/20/2023 08:26:30 Final Observation Date Value Abnormality Reference (Units ) Status BUN 10/20/2023 08:26:30 12 6-20 (mg/dL) Final Creatinine 10/20/2023 08:26:30 1.0 0.6-1.2 (mg/dL) Final Glomerular filtration rate/1.73 sq M.predicted [Volume Rate/Area] in Serum, Plasma or Blood by Creatinine-based formula (CKD-EPI) 10/20/2023 08:26:30 73 >=60 (mL/min) Final eGFR is calculated based on the CKD-EPI 2020 equation. Sodium 10/20/2023 08:26:30 141 135-146 (m mol/L) Final Potassium 10/20/2023 08:26:30 3.8 3.5-5.1 (m mol/L) Final Cl 10/20/2023 08:26:30 96 Below low normal 98- 107 (mmol/L) Final CO2 10/20/2023 08:26:30 33 Above high normal 22 -32 (mmol/L) Final Anion gap 10/20/2023 08:26:30 12 7-15 (mmol /L) Final Glucose 10/20/2023 08:26:30 116 70-120 (mg /dL) Final Calcium 10/20/2023 08:26:30 9.7 8.4-10.2 ( mg/dL) Final Performing Location [facility] [place] [address]
--- OUTSIDE RECORDS SUMMARY | 2023-10-28 23:13 | External Medical Summary | Summary of Care ---
Author Name Unknown Organization [facility] Address [address] [facility] [place] [address] Phone [phone] Care Team Providers Care Loom Control Chain Builder Name Role Phone Jennifer Sarkar MD Primary Care Provider [phone] Encounter Details Date Type Department Care Team (Late st Contact Info) Description 10/17/2023 Telephone General Internal Medicine [facility] 200 [facility] [place] [address] Jennifer Sarkar MD 200 [facility] [place] [address] Allergies Active Allergy Reactions Criticality Noted Date Comments Food (See Comments) 03/21/2018 Other reaction(s): WAS TOLD NOT TO TAKE grapefruit Tramadol Other (Please comment) High 10/06/2020 Hallucinations documented as of this encounter (statuses as of 10/17/2023) Medications Medication Sig Dispensed Refills Start Date [...] Active Additional Information Patient taking differently:1,000 mg QyhhZ5F PRN, ,may take 3rd dose in between [...] Oral Tablet (Lasix)Indications:Co ronary artery disease involving pal[place] coronary artery of pala heart without angina pectoris,Chronic right-sided heart failure [...] EVERY DAY FOR DEPRESSION 90 Tablet 1 Active documented as of this encounter (statuses as of 10/17/2023) Active Problems Problem Noted Date Diagnosed Date Hypercalcemia 12/03/2022 Supplemental oxygen dependent 05/06/2022 Nasal septal perforation 05/06/2022 Chronic respiratory failure with hypoxia 022 Granulomatous lung disease 09/18/2021 Chronic rhinitis 06/10/2021 Schatzki's ring of distal esophagus 06/10/2021 Chronic right-sided heart failure 04/08/2020 Coronary artery disease invo lving pal[place] coronary artery of pala heart without angina pectoris 11/21/2018 Abnormality of [...] as of this encounter (statuses as of 10/17/2023) Resolved Problems Problem Noted Date Diagnosed Date [...] as of this encounter (statuses as of 10/17/2023) Immunizations Name Administration Dates Next Due COVID-19 mRNA, LNP-s, No Pre serve, 2-Dose Series ([employer]) 05/14/2020,04/18/2020 H1N1 2009 Influenza, IM 04/22/2009 PPD [...] Visit Nephrology, [facility] [place] [address] [place] [address] Yumiko Philippe MD [address] [place] [address] 11/30/2023 12:30 PM EDT Office Visit Orthopaedics [facility] [address] [place] [address] Ely Cabrales MD 132 [place] [address] 12/20/2023 9:45 AM EDT Office Visit Urology, [facility] 132 [facility] [place] [address] Man Gu MD [address] [place] [address] 12/26/2023 11:20 AM EST Office Visit General Internal Medicine [facility] 200 [facility] [place] [address] Jennifer Sarkar MD 200 [facility] [place] [address] 03/16/2024 2:00 PM EST Office Visit Cardiology, [facility] 132 [facility] [place] [address] Job Bravo PA-C 132 [facility] [place] [address] Scheduled Procedures Name Priority Associated Diagnoses Date/Ti [...] D LEVEL ONCE IN A LIFETIME-USE SMARTSET# [id number] Completed 08/17/2023, 12/01/2022, 09/09/2021, Additional history exists [...] this encounter Medical Devices Implanted Type Area Analysis Reporting Developer Device Identifier Shelf Expiration Date Model / Serial / Lot Lens Intraoc 23.0 - [id number] - [id number] Implanted:Qty: 1 on 12/21/2016 by Raj Bernard MD at OR [facility] Left: Eye BAUSCH & LOMB 06/20/2021 [id number] / [id number] / Lens Intraoc 22.0 - [id number] - [id number] Implanted:Qty: 1 on 01/06/2017 by Raj Bernard MD at OR [facility] Right: Eye BAUSCH & LOMB 08/20/2021 [id number] / [id number] / [id number] documented as of this encounter Advance Directives [...] Power of Attor bj? No Care Teams Loom Control Chain Builder Relationship Specialty Start Date End Date Jennifer Sarkar MD 200 [facility] [place] [address] PCP - General Internal Medicine 10/06/20 documented as of this encounter
--- OUTSIDE RECORDS SUMMARY | 2023-10-28 23:13 | External Medical Summary | Summary of Care ---
Author Name Unknown Organization [facility] Address [address] [facility] [place] [address] Phone [phone] Care Team Providers Care Home Economist Name Role Phone Jennifer Sarkar MD Primary Care Provider [phone] Reason for Visit * Reason Comments Outpatient Testing Encounter Details Date Type Department Care Team (Late st Contact Info) Description 10/20/2023 8:10 AM EDT Laboratory Laboratory [facility] [place] [address] [place] [address] [place], Lab Scenery [address] [place] [address] Senile osteoporosis; Encounter for monitoring diuretic therapy [...] Active Additional Information Patient taking differently:1,000 mg GtquT8G PRN, ,may take 3rd dose in between [...] Oral Tablet (Lasix)Indications:Co ronary artery disease involving [place] coronary artery of [place] heart without angina pectoris,Chronic right-sided heart failure [...] failure 04/08/2020 Coronary artery disease invo lving [place] coronary artery of [place] heart without angina pectoris 11/21/2018 Abnormality of [...] and draped in usual sterile manner. 14 Maori flexible cystoscope inserted into urethra and guided [...] mRNA, LNP-s, No Pre serve, 2-Dose Series ([employer]) 05/14/2020,04/18/2020 H1N1 2009 Influenza, IM 04/22/2009 PPD [...] AM EDT Office Visit General Internal Medicine [facility] [address] [place] [address] Jennifer Sarkar MD [address] [facility] [place] [address] 11/30/2023 12:30 PM EDT Office Visit Orthopaedics [facility] [address] [place] [address] [address] Ely Cabrales MD [address] [place] [address] 12/20/2023 9:45 AM EDT Office Visit Urology, [facility] [address] [place] [address] [address] Man Gu MD [address] [place] [address] 12/26/2023 11:20 AM EST Office Visit General Internal Medicine [facility] [address] [place] [address] Jennifer Sarkar MD [address] [place] [address] 03/16/2024 2:00 PM EST Office Visit Cardiology, [facility] [address] [place] [address] Job Bravo PA-C [address] [place] [address] Pending Results Name Type Priority Associated Diagnoses [...] D LEVEL ONCE IN A LIFETIME-USE SMARTSET# [id number] Completed 08/17/2023, 12/01/2022, 09/09/2021, Additional history exists [...] encounter Medical Devices Implanted Type Area Senior Network Security Architect Device Identifier Shelf Expiration Date Model / Serial / Lot Lens Intraoc 23.0 - [id number] - [id number] Implanted:Qty: 1 on 12/21/2016 by Raj Bernard MD at OR [facility] Left: Eye BAUSCH & LOMB 06/20/2021 [id number] / [id number] / Lens Intraoc 22.0 - [id number] - [id number] Implanted:Qty: 1 on 01/06/2017 by Raj Bernard MD at OR [facility] Right: Eye BAUSCH & LOMB 08/20/2021 [id number] / [id number] / [id number] documented as of this encounter Visit Diagnoses [...] Power of Attor bj? No Care Teams Home Economist Relationship Specialty Start Date End Date Jennifer Sarkar MD [address] [place] [address] PCP - General Internal Medicine 10/06/20 documented as of this encounter
--- OUTSIDE RECORDS SUMMARY | 2023-10-28 23:13 | External Medical Summary ---
Author Name Unknown Address Unknown Organization K09:[facility] [address] [place] [address] Laboratory Report Ordering Provider Test Date Status SHIRA MACK 10/20/2023 08:35:18 Final Observation Date Value Abnormality Reference (Units ) Status Color of Urine by Auto 10/20/2023 08:35:18 Yellow Light Yellow, Yellow, Dark Yellow Final Clarity, Urine 10/20/2023 08:35:18 Slightly Cloudy Abnormal Clear Final Glucose [Mass/volume] in Urine by Automated test strip 10/20/2023 08:35:18 Negative Negative (mg/dL) Final Bilirubin.total [Presence] in Urine by Automated test strip 10/20/2023 08:35:18 Small Abnormal Negative Final Ketones [Mass/volume] in Urine by Automated test strip 10/20/2023 08:35:18 Trace Abnormal Negative (mg/dL) Final Specific gravity, Urine 10/20/2023 08:35:18 1.020 1.003-1.030 Final Hemoglobin [Presence] in Urine by Automated test strip 10/20/2023 08:35:18 Moderate Abnormal Negative Final pH, Urine 10/20/2023 08:35:18 5.5 5.0-7.5 (Units) Final Protein [Mass/volume] in Urine by Automated test strip 10/20/2023 08:35:18 100 Abnormal Negative (mg/dL) Final Urobilinogen [Mass/volume] in Urine by Automated test strip 10/20/2023 08:35:18 1.0 0.2, 1.0 (mg/dL) Final Nitrite [Presence] in Urine by Automated test strip 10/20/2023 08:35:18 Negative Negative Final Leukocyte esterase [Presence] in Urine by Automated test strip 10/20/2023 08:35:18 Negative Negative Final RBC, Urine 10/20/2023 08:35:18 20-29 Abnormal 0-2 (/HPF) Final WBC, Urine 10/20/2023 08:35:18 0-2 0-2 (/HPF) Final Bacteria [#/area] in Urine sediment by Microscopy high power field 10/20/2023 08:35:18 0-25 0-25 (/HPF) Final Performing Location [facility] [address] [place] [address]
--- OUTSIDE RECORDS SUMMARY | 2023-10-28 23:14 | External Medical Summary | Summary of Care ---
Author Name Unknown Organization [facility] Address [address] [place] [address] Phone [phone] Care Team Providers Care Air Conditioning Engineer Name Role Phone Jennifer Sarkar MD Primary Care Provider [phone] Reason for Visit * Reason Onset Date Comments Med Request 07/27/2023 90 day supply Encounter Details Date Type Department Care Team (Late st Contact Info) Description 07/27/2023 Telephone General Internal Medicine [facility] [address] [facility] [place] [address] Jennifer Sarkar MD [address] [place] [address] Med Request (90 day supply) Allergies Active Allergy Reactions Criticality Noted Date Comments Food (See Comments) 03/21/2018 Other reaction(s): WAS TOLD NOT TO TAKE grapefruit Tramadol Other (Please comment) High 10/06/2020 Hallucinations documented as of this encounter (statuses as of 08/31/2023) Medications Medication Sig Dispensed Refills Start Date [...] Active Additional Information Patient taking differently:1,000 mg [id number] PRN, ,may take 3rd dose in between [...] needed for Wheezing. 18 g 3 Active Rosuvastatin Calcium 5 MG Oral Tablet (Crestor)Indications :Dyslipidemia, goal LDL below 100,S/P primary angioplasty with coronary stent Take 1 Tablet by mouth in the morning. Restart 04/16/2022. 90 Tablet 3 3 Active Saline Nasal Gel (Nasogel)Indications :Chronic respiratory [...] 3 3 Active Benzonatate 100 MG Oral CapsuleIndications:A spiration [...] for Pain, Severe. 3 Active oxygen 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:Chron ic respiratory failure with hypoxia (HCC),Chronic right-sided heart failure (HCC),Granulomatous lung disease (HCC) Use 3lpm continuous, increased to 4lpm with exertion. Changed 03/23/23 1 Each 4 Active Levothyroxine Sodium 112 MCG Oral Tablet (Levoxyl)Indications :Acquired hypothyroidism TAKE 1 TABLET BY MOUTH IN THE MORNING. (AT LEAST 30 MIN PRIOR TO BREAKFAST OR OTHER MEDS) 90 Tablet 4 Active Citalopram Hydrobromide 20 MG Oral Tablet (CeleXA) TAKE 1 TABLET BY MOUTH EVERY DAY FOR DEPRESSION 90 Tablet 4 Active DULoxetine HCl 60 MG Oral [...] before bedtime. 270 Tablet 3 4 Active Tamsulosin HCl 0.4 MG Oral Capsule (Flomax)Indications: BPH with obstruction/lower urinary tract symptoms Take 1 Capsule by mouth at bedtime. 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 TAKE ADDITIONAL ONE FOR THREE DAYS AND DIRECTED. 270 Tablet 3 3 08/19/19 24 Discontin ued(Refil l) Tamsulosin HCl 0.4 MG Oral Capsule (Flomax)Indications: BPH with obstruction/lower urinary tract symptoms Take 1 Capsule by mouth at bedtime. 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 Screening for prostate cancer 01/03/2007 Asthma, allergic 04/22/2009 Osteoporosis 02/24/2017 documented as of this encounter (statuses as of 08/31/2023) Immunizations Name Administration Dates Next Due COVID-19 mRNA, LNP-s, No Pre serve, 2-Dose Series (PagerDuty) 05/14/2020,04/18/2020 H1N1 2009 Influenza, IM 04/22/2009 PPD [...] encounter Miscellaneous Notes * Telephone Encounter - Altagracia Shelton LPN - 07/27/2023 12:39 PM EDT Pharmacy requesting 90 day supply for insurance purposes. New script pending. documented in this encounter Plan of Treatment Upcoming Encounters Date Type Department Care Team (Late st Contact Info) Description 09/08/2023 2:30 PM EDT Office Visit Cardiology, [facility] [address] [place] [address] Job Bravo PA-C [address] [place] [address] 09/14/2023 10:30 AM EDT Nurse Only Rheumatology [address] [place] [address] Pf, Nurse Rheum [facility] [facility] [place], [place] [address] 10/20/2023 7:00 AM EDT Office Visit Nephrology, [facility] [address] [facility] [place] [address] Yumiko Philippe MD [address] [facility] [place] [address] 11/30/2023 12:30 PM EDT Office Visit Orthopaedics [facility] 132 [place] [address] Ely Cabrales MD [address] [place] [address] 12/20/2023 9:45 AM EDT Office Visit Urology, [facility] [address] [place] [address] Man Gu MD [address] [place] [address] 12/26/2023 11:20 AM EST Office Visit General Internal Medicine [facility] [address] [facility] [place], [place] [address] Jennifer Sarkar MD [address] [facility] [place], [place] [address] Scheduled Procedures Name Priority Associated Diagnoses Date/Ti me COLONOSCOPY FLEXIBLE PROXIMAL DIAGNOSTIC Recall History of colon polyps Health Maintenance Due Date Last Done Comments DXA Scan 08/05/2021 08/30/2023, 07/22, 05/24/2017, Additional history exists Colonoscopy 06/03/2022 06/03/2017, 02/01/2007 Depression Monitoring 09/09/2022 09/09/2021 COVID-19 Vaccine ( season) 2022 05/14/2020, 04/18/2020 Influenza Vaccine (FLU shot) (#1) 2023 11/22/2022, 04/06/2022, 04/06/2022, Additional history exists TSH 03/23/2024 03/23/2023, 11/21, 08/11/2022, Additional history exists GFR 08/16/2024 08/17/2023, 02/23, 12/01/2022, Additional history exists Albumin/Creatinine Ratio 09/09/2024 09/09/2021, 09/22 DTaP,Tdap,and Td Vaccines (2 - Td or Tdap) 07/19/2028 07/19/2018, 12/14/2007 Pneumococcal Vaccine: 65+ Years Completed 11/12/2014, 07/20/2007, 02/25/2002 RETIRED - COLONOSCOPY-EVERY 5 YRS AGES 18-100 Discontinued 06/03/2017, 02/01/2007 Zoster Vaccines Completed 01/28/2020, 09/17/2019 VITAMIN D LEVEL ONCE IN A LIFETIME-USE SMARTSET# [id number] Completed 08/17/2023, 12/01/2022, 09/09/2021, Additional history exists [...] this encounter Medical Devices Implanted Type Area Servicenow Administrator Device Identifier Shelf Expiration Date Model / Serial / Lot Lens Intraoc 23.0 - [id number] - [id number] Implanted:Qty: 1 on 12/21/2016 by Raj Bernard MD at OR [facility] Left: Eye [employer] 06/20/2021 [id number] / [id number] / Lens Intraoc 22.0 - [id number] - [id number] Implanted:Qty: 1 on 01/06/2017 by Raj Bernard MD at OR [facility] Right: Eye [employer]OMB 08/20/2021 [id number] / [id number] / [id number] documented as of this encounter Visit Diagnoses Diagnosis BPH with obstruction/lower urinary tract symptoms Hypertrophy of prostate with urinary obstruction and other lower urinary tract symptoms (LUTS) documented in this encounter Advance Directives * [...] Power of Attor bj? No Care Teams Air Conditioning Engineer Relationship Specialty Start Date End Date Jennifer Sarkar MD [address] [facility] [place] [address] PCP - General Internal Medicine 10/06/20 documented as of this encounter
--- OUTSIDE RECORDS SUMMARY | 2023-10-28 23:14 | External Medical Summary | Summary of Care ---
Author Name Unknown Organization [facility] Address [address] [facility] [place] [address] Phone [phone] Care Team Providers Care Cryptologist Name Role Phone Jennifer Sarkar MD Primary Care Provider [phone] Reason for Visit * Reason Comments eRx-Medication Refill Encounter Details Date Type Department Care Team (Late st Contact Info) Description 09/14/2023 Refill General Internal Medicine [facility] 200 [facility] [place] [address] Jennifer Sarkar MD 200 [place] [address] Dyslipidemia, goal LDL below 100; ANGIOPLASTY WITH CORONARY STENT TO LAD - bare Metal Allergies Active Allergy Reactions Criticality Noted Date Comments Food (See Comments) 03/21/2018 Other reaction(s): WAS TOLD NOT TO TAKE grapefruit Tramadol Other (Please comment) High 10/06/2020 Hallucinations documented as of this encounter (statuses as of 09/15/2023) Medications Medication Sig Dispensed Refills Start Date [...] Active Additional Information Patient taking differently:1,000 mg [id number] PRN, ,may take 3rd dose in between [...] 09/01/2022. 90 Tablet 3 09/02/19 23 Active Benzonatate 100 MG Oral CapsuleIndications:A spiration into airway, subsequent encounter Take 1 Capsule by mouth 3 times a day as needed for Cough. 30 Capsule 1 12/21/19 23 Active Additional Information Patient not taking.Reported on [...] Changed 03/23/23 1 Each 04/10/19 24 Active Levothyroxine Sodium 112 MCG Oral Tablet (Levoxyl)Indications :Acquired hypothyroidism TAKE 1 TABLET BY MOUTH IN THE MORNING. (AT LEAST 30 MIN PRIOR TO BREAKFAST OR OTHER MEDS) 90 Tablet 06/16/19 24 Active Citalopram Hydrobromide 20 MG Oral Tablet (CeleXA) TAKE 1 TABLET BY MOUTH EVERY DAY FOR DEPRESSION 90 Tablet 06/16/19 24 Active DULoxetine HCl 60 MG Oral [...] bedtime. 270 Tablet 3 07/23/19 24 Active Tamsulosin HCl 0.4 MG Oral Capsule (Flomax)Indications: BPH with obstruction/lower urinary tract symptoms Take 1 Capsule by mouth at bedtime. St 06/22/2023 90 Capsule 07/28/19 24 Active Finasteride 5 MG Oral Tablet (Proscar) Take 1 Tablet by mouth in the morning. 90 Tablet 3 08/03/19 24 Active Magnesium Hydroxide 400 MG/5ML Oral Suspension (Mom) Take 30 mL by mouth. 07/07/19 24 Active Furosemide 40 MG Oral Tablet (Lasix)Indications:C oronary artery disease involving napaimute coronary artery of napaimute heart without angina pectoris,Chronic right-sided heart failure (HCC),Bilateral leg edema,Encounter for monitoring diuretic therapy 40 mg in the AM and 20 mg in the early afternoon 135 Tablet 3 09/08/19 24 Active Rosuvastatin Calcium 5 MG Oral Tablet (Crestor)Indications :Dyslipidemia, goal LDL below 100,S/P primary angioplasty with coronary stent TAKE 1 TABLET BY MOUTH EVERY DAY 30 Tablet 1 09/15/19 24 Active Rosuvastatin Calcium 5 MG Oral Tablet (Crestor)Indications :Dyslipidemia, goal LDL below 100,S/P primary angioplasty with coronary stent Take 1 Tablet by mouth in the morning. Restart 04/16/2022. 90 Tablet 3 04/16/19 23 024 Discontinued documented as of this encounter (statuses as of 09/15/2023) Active Problems Problem Noted Date Diagnosed Date Hypercalcemia 12/03/2022 Supplemental oxygen dependent 05/06/2022 Nasal septal perforation 05/06/2022 Chronic respiratory failure with hypoxia 022 Granulomatous lung disease 09/18/2021 Chronic rhinitis 06/10/2021 Schatzki's ring of distal esophagus 06/10/2021 Chronic right-sided heart failure 04/08/2020 Coronary artery disease invo lving napaimute coronary artery of napaimute heart without angina pectoris 11/21/2018 Abnormality of [...] as of this encounter (statuses as of 09/15/2023) Resolved Problems Problem Noted Date Diagnosed Date [...] and draped in usual sterile manner. 14 Wolof flexible cystoscope inserted into urethra and guided [...] as of this encounter (statuses as of 09/15/2023) Immunizations Name Administration Dates Next Due COVID-19 mRNA, LNP-s, No Pre serve, 2-Dose Series ([employer]io) 05/14/2020,04/18/2020 H1N1 2009 Influenza, IM 04/22/2009 PPD [...] encounter Miscellaneous Notes * Telephone Encounter - Edith Rodriguez RPh - 09/15/2023 9:51 AM EDT Signed Prescriptions: Disp Refills Rosuvastatin Calcium 5 MG Oral Tablet (Cre*30 Tab*1 Sig: TAKE 1 TABLET BY MOUTH EVERY DAYAuthorizing Provider: Tabitha SARKAR User: EDITH RODRIGUEZ--------- documented in this encounter Plan of Treatment Upcoming Encounters Date Type Department Care Team (Late st Contact Info) Description 10/20/2023 7:00 AM EDT Office Visit Nephrology, [facility] [address] [facility] [place] [address] Yumiko Philippe MD 200 [facility] [place] [address] 11/30/2023 12:30 PM EDT Office Visit [facility]opaedics [facility] [address] [facility] [place] [address] Ely Cabrales MD [address] [place] [address] 12/20/2023 9:45 AM EDT Office Visit Urology, [facility] [address] [facility] [place] [address] Man Gu MD [address] [place] [address] 12/26/2023 11:20 AM EST Office Visit General Internal Medicine [facility] [address] [facility] [place] [address] Jennifer Sarkar MD [address] [facility] [place] [address] 03/16/2024 2:00 PM EST Office Visit Cardiology, [facility] [address] [place] [address] Job Bravo PA-C [address] [place] [address] Scheduled Procedures Name Priority Associated Diagnoses Date/Ti me COLONOSCOPY FLEXIBLE PROXIMAL DIAGNOSTIC Recall History of colon polyps Health Maintenance Due Date Last Done Comments Colonoscopy 06/03/2022 06/03/2017, 02/01/2007 Depression Monitoring 09/09/2022 [...] D LEVEL ONCE IN A LIFETIME-USE SMARTSET# [id number] Completed 08/17/2023, 12/01/2022, 09/09/2021, Additional history exists [...] this encounter Medical Devices Implanted Type Area Steel Fabricating Supervisor Device Identifier Shelf Expiration Date Model / Serial / Lot Lens Intraoc 23.0 - [id number] - [id number] Implanted:Qty: 1 on 12/21/2016 by Raj Bernard MD at OR [facility] Left: Eye [employer]OM[employer] 06/20/2021 [id number] / [id number] / Lens Intraoc 22.0 - [id number] - [id number] Implanted:Qty: 1 on 01/06/2017 by Raj Bernard MD at OR [facility] Right: Eye BAUSCH & LOMB 08/20/2021 [id number] / [id number] / [id number] documented as of this encounter Visit Diagnoses Diagnosis Dyslipidemia, goal LDL below 100 Other and unspecified hyperlipidemia ANGIOPLASTY WITH CORONARY STENT TO LAD - bare Metal Postsurgical percutaneous transluminal coronary angioplasty status documented in this encounter Advance Directives * [...] Power of Attor bj? No Care Teams Cryptologist Relationship Specialty Start Date End Date Jennifer Sarkar MD 200 [place] [address] PCP - General Internal Medicine 10/06/20 documented as of this encounter
--- OUTSIDE RECORDS SUMMARY | 2023-10-28 23:14 | External Medical Summary | Summary of Care ---
Author Name Unknown Organization [facility] Address [address] [place] [address] Phone [phone] Care Team Providers Care Creative Art Therapist Name Role Phone Jennifer Sarkar MD Primary Care Provider [phone] Reason for Visit * Reason Comments Follow Up Encounter Details Date Type Department Care Team (Late st Contact Info) Description 09/08/2023 2:30 PM EDT Office Visit Cardiology, [facility] [address] [place] [address] Job Bravo PA-C [address] [place] [address] Dyslipidemia, goal LDL below 70*; Old myocardial infarct; Coronary artery disease involving absentee-shawnee coronary artery of absentee-shawnee heart without angina pectoris; Chronic right-sided heart failure (HCC); Bilateral leg edema; Encounter for monitoring diuretic therapy Allergies Active Allergy Reactions Criticality Noted Date Comments Food (See Comments) 03/21/2018 Other reaction(s): WAS TOLD NOT TO TAKE grapefruit Tramadol Other (Please comment) High 10/06/2020 Hallucinations documented as of this encounter (statuses as of 09/10/2023) Medications Medication Sig Dispensed Refills Start Date [...] dose in between --12/21/2021. 1 Tablet 12/22/19 22 Active Additional Information Patient taking differently:1,000 mg AzoxP8Y PRN, ,may take 3rd dose in between [...] for Wheezing. 18 g 04/07/19 23 Active Rosuvastatin Calcium 5 MG [...] with exertion. Changed 03/23/23 1 Each 04/10/19 Active Levothyroxine Sodium 112 MCG Oral [...] Oral Tablet (Lasix)Indications:C oronary artery disease involving absentee-shawnee coronary artery of absentee-shawnee heart without angina pectoris,Chronic right-sided heart failure (HCC),Bilateral leg edema,Encounter for monitoring diuretic therapy 40 mg in the AM and 20 mg in the early afternoon 135 Tablet 3 09/08/19 24 Active Furosemide 40 MG Oral Tablet (Lasix)Indications:C hronic right-sided heart failure (HCC),Coronary artery disease involving absentee-shawnee coronary artery of absentee-shawnee heart without angina pectoris,Bilateral leg edema TAKE BY MOUTH ONE TABLET IN THE MORNING AND/OR DIRECTED 120 Tablet 3 08/19/19 24 024 Discontinued documented as of this encounter (statuses as of 09/10/2023) Active Problems Problem Noted Date Diagnosed Date Hypercalcemia 12/03/2022 Supplemental oxygen dependent 05/06/2022 Nasal septal perforation 05/06/2022 Chronic respiratory failure with hypoxia 022 Granulomatous lung disease 09/18/2021 Chronic rhinitis 06/10/2021 Schatzki's ring of distal esophagus 06/10/2021 Chronic right-sided heart failure 04/08/2020 Coronary artery disease invo lving absentee-shawnee coronary artery of absentee-shawnee heart without angina pectoris 11/21/2018 Abnormality of [...] WITH CORONARY STENT TO LAD - bare kassidy 10/16/2008 Severe obstructive sleep apnea 01/15/2008 Overview: 2007 PSG -- AHI 49.4/hr, hypoxemia Nocturnal hypoxemia 06/08/2007 Overview: 3 LPM at bedtime [employer] SPINAL STENOSIS-LUMBAR 07/29/2005 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 Essential tremor documented as of this encounter (statuses as of 09/10/2023) Resolved Problems Problem Noted Date Diagnosed Date [...] and draped in usual sterile manner. 14 [place]uran flexible cystoscope inserted into urethra and guided into bladder under direct vision. Findings :normal bladder mucosa, normal anatomical position of ureteral orifices.Ureteral stent removed completely Calculus of ureter 04/01/2005 8 ADVANCE DIRECTIVE INFORMATION 07/27/2004 07/21/2016 Overview: Patient does not have an advanced directive. Patient given information booklet. Bacterial pneumonia 07/31/2002 09/17/19 Depression with anxiety 11/18/200002/2017 HYPERTENSION NOS 01/13/2009 Overview: Modified per HTN protocol #16. Screening for prostate cancer 01/03/2007 Asthma, allergic 04/22/2009 Osteoporosis 02/24/2017 documented as of this encounter (statuses as of 09/10/2023) Immunizations Name Administration Dates Next Due COVID-19 mRNA, LNP-s, No Pre serve, 2-Dose Series (Pogoplug) 05/14/2020,04/18/2020 H1N1 2008 Influenza, IM 04/22/2009 PPD 01/18/2023, 3,11/22/2022,11/13,08/20/2020,08/11/2020 Pneumococcal [...] 1961 Cigars Quit: 1961 Smokeless Tobacco: Never Tobacco Cessation:Counseling Given: Not Answered Comments:Smoked a occasional pipe or cigar socially [...] Sign Reading Time Taken Comments Blood Pressure 130/82 09/08/2023 2:37 PM EDT Pulse 60 09/08/2023 2:37 PM EDT Temperature - - Respiratory Rate - - Oxygen Saturation - - Inhaled Oxygen Concentration - - Weight 73.5 kg (162 lb) 09/08/2023 2:37 PM EDT Height - - Body Mass Index 26.96 06/22/2023 5:24 PM EDT documented in this encounter Progress Notes * Job Bravo PA-C - 09/08/2023 2:43 PM EDT History of Present Illness: Fabian Starks is a 82 year old male here followed by Dr. Ramirez, here today for cardiology follow-up having last been seen in this office in June 2022. Multiple interim hospitalizations at [facility] noted and reviewed today. Stomach gets hard, pushes on lungs, then has trouble breathing Left greater than right lower extremity edema. Takes furosemide 40 mg daily in the morning Took an extra 20 (in the afternoon) the last two days with some improvement. Still struggling with excessive sodium intake. Eating at the diner regularly No chest pain No palpitations No orthopnea No PND No dizziness or syncope. No melena or hematochezia. History: Atherosclerotic coronary disease, status post acute thrombotic left anterior descending occlusion treated with stenting with bare metal stent, September 2008. Hypertension. Hyperlipidemia. Asthmatic lung disease with severe obstructive sleep apnea (untreated) and restrictive component secondary to chronically elevated right hemidiaphragm, nocturnal O2 dependent. Severe thoracolumbar scoliosis Chronic peripheral edema/right heart failure Frequent ventricular ectopy Essential tremor Hypothyroidism Esophageal ring Depression Lumbar spinal stenosis Hospitalized in July 2020 following a mechanical fall, resultant C2 fracture managed conservatively. Patient Active Problem List Diagnosis Acquired hypothyroidism [...] with delayed healing Coronary artery disease involving absentee-shawnee coronary artery of absentee-shawnee heart without angina pectoris Abnormality of gait Chronic right-sided heart failure (HCC) Chronic rhinitis Schatzki's ring of distal esophagus Granulomatous lung disease (HCC) Chronic respiratory failure with hypoxia (HCC) Supplemental oxygen dependent Nasal septal perforation Hypercalcemia Past Medical History: Diagnosis Date Acquired hypothyroidism ANGIOPLASTY WITH CORONARY STENT TO LAD - bare Metal 10/16/2008 Calculus of ureter 04/01/2005 Chronic respiratory failure with hypoxia (HCC) 11/14/2021 Chronic right-sided heart failure (HCC) 04/08/2020 Coronary artery disease involving absentee-shawnee coronary artery of absentee-shawnee heart without angina pectoris 11/21/2018 Dyslipidemia, goal [...] ring Sleep apnea, obstructive SPINAL STENOSIS-LUMBAR 07/29/2005 Past Surgical History: Procedure Laterality Date ABDOMEN (KUB) 1 VIEW 03/30/2005 CATHETERIZE LEFT HEART THRU SKIN 10/09/2008 LEFT HEART CATH, PERCUTANEOUS performed by ANSHU FOFANA at [facility] COLONOSCOPY W/ LESION REMOVAL, SNARE 02/01/2007 repeat in 5-10 yrs COLONOSCOPY, DIAGNOSTIC (RECTUM) 06/03/2017 adenomatous polyp, repeat 5 yrs/[facility] CYSTOSCOPY 03/30/2005 stent removal EGD, FLEXIBLE, DIAGNOSTIC 11/24/2012 UPPER GI ENDOSCOPY DIAGNOSTIC performed by Nakia Benton DO at [facility] EGD, FLEXIBLE, DIAGNOSTIC 07/15/2015 Schatzki ring, sm HH/[facility] EGD, FLEXIBLE, DIAGNOSTIC 03/21/2018 erosive gastropathy, tortous esophagus, [facility] ring/[facility] EGD, FLEXIBLE, DIAGNOSTIC 08/21/2021 hiatal hernia / [facility] FRAGMENT KIDNEY STONE BY SHOCK [...] performed by Raj Bernard MD at OR [facility] Family History Problem Relation Name Age of Onset Diabetes Mother Type II Cancer Aunt (Unspecified) maternal Arthritis None Cancer Other nephew 26 lung cancer Social History Socioeconomic History Marital status: Spouse name: Not on file Number of children: 2 Years of education: Not on file Highest education level: Not on file Occupational History Occupation: [employer] Employer: [employer] 0[employer] Comment: 30 yrs Social Needs Financial resource strain: Not on file Food insecurity Worry: Never true Inability: Never true Transportation needs Medical: Not on file Non-medical: Not on file Tobacco Use Smoking status: Former Smoker Types: Pipe, Cigars Smokeless tobacco: Never Used Tobacco comment: Smoked a occasional pipe or cigar socially when was younger. Substance and Sexual Activity Alcohol use: Yes Comment: rarely Drug use: No Sexual activity: Not on file Lifestyle Complete Review of Systems is as stated above, negative, or noncontributory. Review of patient's allergies indicates: Allergen Reactions [...] For dryness(nasal septal perforation) 14 g 0 Meclizine HCl 12.5 MG Oral Tablet (Antivert) TAKE 1 TABLET BY MOUTH THREE TIMES A DAY NEEDED FORDIZZINESS 30 Tablet 1 Pantoprazole Sodium 20 MG Oral Tablet Delayed Release (Protonix) Take 1 Tablet by mouth at bedtime.30 minutes before the first meal of the day. Do not crush, split or chew the tablet--dec 12/21/2021(nml EGD 08/21/21)--chg timing 05/18/2022 (Patient taking differently: [...] with exertion. Changed 03/23/23 1 Each 0 Levothyroxine Sodium 112 MCG Oral Tablet (Levoxyl) TAKE 1 TABLET BY MOUTH IN THE MORNING. (AT LEAST30 MIN PRIOR TO BREAKFAST OR OTHER MEDS) 90 Tablet 0 Citalopram Hydrobromide 20 MG Oral Tablet (CeleXA) TAKE 1 TABLET BY MOUTH EVERY DAY FOR DEPRESSION 90 Tablet 0 DULoxetine HCl 60 MG Oral Capsule Delayed Release Particles (Cymbalta) Take 1 Capsule by mouth in the morning. Do not cut, crush or chew--inc from 06/23/2023. 90 Capsule 1 Propranolol HCl 20 MG Oral Tablet (Inderal) Take 1 Tablet by mouth in the morning and 1 Tablet at noon and 1 Tablet before bedtime. 270 Tablet 3 Tamsulosin HCl 0.4 MG Oral Capsule (Flomax) Take 1 Capsule by mouth at bedtime. St 06/22/2023 90 Capsule 0 Finasteride 5 MG Oral Tablet (Proscar) Take 1 Tablet by mouth in the morning. 90 Tablet 3 Magnesium Hydroxide 400 MG/5ML Oral Suspension (Mom) Take 30 mL by mouth. Furosemide 40 MG Oral Tablet (Lasix) TAKE BY MOUTH ONE TABLET IN THE MORNING AND/OR DIRECTED 120Tablet 3 Benzonatate 100 MG Oral Capsule Take 1 Capsule by mouth 3 times a day as needed for Cough. (Patientnot taking: Reported on 09/08/2023) 30 Capsule 1 No current facility-administered medications for this visit. PHYSICAL EXAMINATION: BP 130/82 | Pulse 60 | Wt 73.5 kg (162 lb) | BMI 26.96 kg/m | BSA 1.84 m General: A&Ox3. NAD HEENT: Normocephalic. Atraumatic. Neck: No carotid bruits. No overt JVD Lungs: Diminished. Decreased. No abnormal breath sounds appreciated. Heart: RRR. No audible murmur or rub. PMI is nondisplaced. Abdomen: +BS. + Umbilical hernia. Somewhat soft. Nontender. No organomegaly. Extremities: Trace to 1+ edema . No cyanosis. No clubbing. Intact distal pulses. Neuro: Bilateral upper extremity tremor Data: August 06, 2022 TTE Interpretation Summary (as per Dr. Strauss): The qualitative LV ejection fraction is 55-59% (normal). The LV wall thickness is mildly increased (concentric). There is a small sizedapical wall motion abnormality with hypokinesis to akinesis of the segments. There is aortic valve sclerosis without stenosis. Mild mitral regurgitation is present. The right ventricular cavity size is normal (basal dimension < 4.2 cm RV apical 4 chamber view). The right ventricular systolic function is normal as assessed by tricuspid annular plane systolic excursion (TAPSE) (normal >1.7 cm). Compared to prior study of 11/28/2018, there is no significant change. September 08, 2023 EKG: Normal sinus rhythm at 65 bpm. Septal infarct. Possible lateral infarct. When compared to prior tracings, there is no significant change. ASSESSMENT AND RECOMMENDATIONS/PLAN: Right heart failure. Volume status: Mild hypervolemia. Reduction in dietary sodium discussed. Continue the increased dose of furosemide, 40 mg in the morning and 20 mg in the early afternoon. Check abasic metabolic panel today. ASCVD. Seemingly stable. Continue appropriate medical management. Ventricular ectopy. Asymptomatic. Continue beta-james therapy with propanolol as past attempts with alternatives beta-james therapy resulted in worsening tremor. Hypertension. Blood pressure acceptably controlled Dyslipidemia. LDL 52 mg/dL on 03/23/2203 Asthmatic lung disease with severe obstructive sleep apnea (untreated) and restrictive component secondary to chronically elevated right hemidiaphragm, O2 dependent. Oxygen use encouraged. Ambulatory dysfunction. Routine cardiology follow-up in 4-6 months or as needed. ER with emergencies Job Bravo PA-C Department of Cardiology I spent a total of 30-39 minutes (exact time 31 mins) on the date of service in preparation, delivery, and documentation of the care provided to Fabian Starks excluding any time spent in the performance of separately billed services. This visit involved medical care services related to at least oneserious condition or complex condition requiring ongoing care. This chart was completed in part util [employer] Voice Recognition Software. Grammatical errors, random word insertions, prounoun errors, and incomplete sentences are an occasional consequence of this system due to software limitations, ambient noise, and hardware issues. Any formal questions or concerns about the content, text, or information contained within the body of this dictation should be directly addressed to the provider for clarification. documented in this encounter Procedure Notes * Marvin Milner DO - 09/08/2023 2:46 PM EDTAssociated Order(s): EKG REASON FOR STUDY: routine;routine CONCLUSIONS: Normal sinus rhythm Septal infarct (cited on or before 04-Nov-2014) Possible Lateral infarct (cited on or before 23-Oct-2013) Abnormal ECG When compared with ECG of 08-Dec-2020 14:15, No significant change was found Ventricular Rate: 65 Atrial Rate: 65 DC Interval: 180 QRS Duration: 90 QT/QTc: 406/422 ms P-R-T Edon: 39 : 68 : 90 degrees documented in this encounter Nursing Notes * Courtney Love CMA - 09/08/2023 2:36 PM EDT Examination Room: 1 Name: Fabian Starks Date of : (1940) Reason for Visit: 1 yr Interim Hospitalization(s): none Problems/Concerns: denied Chest Pain/SOB: denied chest pain, but does have SOB. My [facility] is a way you can talk to your provider online through e-mail. Would you like to sign up? I can activate it for you? DECLINES Patient was instructed to not get up on the exam table until directed and assisted by their provider; patient is to remain seated in the chair/ wheelchair/ exam table for fall prevention and safety reasons. Patient is aware to have assistance to step down off exam table with personnel. Patient voiced full comprehension of instructions. documented in this encounter Plan of Treatment Upcoming Encounters Date Type Department Care Team (Late st Contact Info) Description 09/14/2023 10:30 AM EDT Nurse Only Rheumatology [place] [id number] [facility] [place] [address] Pf, Nurse Rheum [address] [facility] [place] [address] 10/20/2023 7:00 AM EDT Office Visit Nephrology, [facility] [address] [place] [address] Yumiko Philippe MD [address] [place] [address] 11/30/2023 12:30 PM EDT Office Visit Orthopaedics [facility] [address] [facility] [place] [address] Ely Cabrales MD [address] [facility] [place] [address] 12/20/2023 9:45 AM EDT Office Visit Urology, [facility] [address] [facility] [place] [address] Man Gu MD [address] [place] [address] 12/26/2023 11:20 AM EST Office Visit General Internal Medicine [facility] [address] [place] [address] Jennifer Sarkar MD [address] [place] [address] 03/16/2024 2:00 PM EST Office Visit Cardiology, [facility] [address] [place] [address] Job Bravo PA-C [address] [place] [address] Scheduled Procedures Name Priority Associated Diagnoses Date/Ti [...] D LEVEL ONCE IN A LIFETIME-USE SMARTSET# [id number] Completed 08/17/2023, 12/01/2022, 09/09/2021, Additional history exists [...] this encounter Medical Devices Implanted Type Area Bleach Supervisor Device Identifier Shelf Expiration Date Model / Serial / Lot Lens Intraoc 23.0 - [id number] - [id number] Implanted:Qty: 1 on 12/21/2016 by Raj Bernard MD at OR [facility] Left: Eye [employer] 06/20/2021 [id number] / [id number] / Lens Intraoc 22.0 - [id number] - [id number] Implanted:Qty: 1 on 01/06/2017 by Raj Bernard MD at OR [facility] Right: Eye [employer] 08/20/2021 [id number] / [id number] / [id number] documented as of this encounter Procedures Procedure Name Priority Date/Time Associated Diagnosis Comments DC ECG ROUTINE ECG W/LEAST 12 LDS W/I&R Routine 09/08/2023 2:46 PM EDT Dyslipidemia, goal LDL below 70 Old myocardial infarct Coronary artery disease involving absentee-shawnee coronary artery of absentee-shawnee heart without angina pectoris documented in this encounter Results * (ABNORMAL) BASIC METABOLIC PANEL (09/08/2023 3:24 PM EDT) BUN 14 6 - 20 mg/dL 09/08/2023 4:22 PM EDT [facility] Creatinine 1.0 0.6 - 1.2 mg/dL 09/08/2023 4:22 PM EDT [facility] Estimated Glomerular Filtration Rate 78 >=60 mL/min 09/08/2023 4:22 PM EDT [facility] Comment:eGFR is calculated b ased on the CKD-EPI 2020 equation. Sodium 140 135 - 146 mmol/L 09/08/2023 4:22 PM EDT [facility] Potassium 4.2 3.5 - 5.1 mmol/L 09/08/2023 4:22 PM EDT [facility] Chloride 95(L) 98 - 107 mmol/L 09/08/2023 4:22 PM EDT [facility] CO2 35(H) 22 - 32 mmol/L 09/08/2023 4:22 PM EDT [facility] Anion Gap 10 7 - 15 mmol/L 09/08/2023 4:22 PM EDT [facility] Glucose 113 70 - 120 mg/dL 09/08/2023 4:22 PM EDT [facility] Calcium 10.1 8.4 - 10.2 mg/dL 09/08/2023 4:22 PM EDT [facility] Blood Venous blood specimen / Unknown Venipuncture / Unknown 09/08/2023 3:24 PM EDT 09/08/2023 3:24 PM EDT Job Bravo PA-C LAB BLOOD ORDERABLE S Performing Organization Address City/[facility]/ZIP Co de Phone Number [facility] [place] [address] * EKG (09/08/2023 2:46 PM EDT) 09/08/2023 2:46 PM EDT Narrative Procedure Note Marvin Milner, - 09/08/2023 2:46 PM EDT REASON FOR STUDY: routine;routine CONCLUSIONS: Normal sinus rhythm Septal infarct (cited on or before 04-Nov-2014) Possible Lateral infarct (cited on or before 23-Oct-2013) Abnormal ECG When compared with ECG of 08-Dec-2020 14:15, No significant change was found Ventricular Rate: 65 Atrial Rate: 65 DC Interval: 180 QRS Duration: 90 QT/QTc: 406/422 ms P-R-T Edon: 39 : 68 : 90 degrees Job Bravo PA-C EKG [facility] documented in this encounter Visit Diagnoses Diagnosis Dyslipidemia, goal LDL below 70- Primary Other and unspecified hyperlipidemia Old myocardial infarct Old myocardial infarction Coronary artery disease involving absentee-shawnee coronary artery of absentee-shawnee heart without angina pectoris Chronic right-sided heart failure (HCC) Congestive heart failure, unspecified Bilateral leg edema Edema Encounter for monitoring diuretic therapy Encounter for [...] Power of Attor bj? No Care Teams Creative Art Therapist Relationship Specialty Start Date End Date Jennifer Sarkar MD [address] [facility] [place] [address] PCP - General Internal Medicine 10/06/20 documented as of this encounter"
--- OUTSIDE RECORDS SUMMARY | 2023-10-28 23:14 | External Medical Summary | Summary of Care ---
Author Name Unknown Organization [facility] Address [address] [place] [address] Phone [phone] Care Team Providers Care Prospecting Observer Name Role Phone Jennifer Sarkar MD Primary Care Provider [phone] Reason for Visit * Reason Onset Date Comments Med Request 08/17/2023 Encounter Details Date Type Department Care Team (Late st Contact Info) Description 08/17/2023 Telephone Cardiology, [facility] [address] [place] [address] Gala Martins CRNP [address] [place] [address] Med Request Allergies Active Allergy Reactions Criticality Noted Date Comments Food (See Comments) 03/21/2018 Other reaction(s): WAS TOLD NOT TO TAKE grapefruit Tramadol Other (Please comment) High 10/06/2020 Hallucinations documented as of this encounter (statuses as of 08/19/2023) Medications Medication Sig Dispensed Refills Start Date [...] Active Additional Information Patient taking differently:1,000 mg [id number] PRN, ,may take 3rd dose in between [...] bedtime. St 06/22/2023 90 Capsule 4 Active Finasteride 5 MG Oral Tablet (Proscar) Take 1 Tablet by mouth in the morning. 90 Tablet 3 4 Active Magnesium Hydroxide 400 MG/5ML Oral Suspension (Mom) Take 30 mL by mouth. 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 TAKE ADDITIONAL ONE FOR THREE DAYS AND DIRECTED. 270 Tablet 3 3 08/19/19 24 Discontin ued(Refil l) documented as of this encounter (statuses as of 08/19/2023) Active Problems Problem Noted Date Diagnosed Date Hypercalcemia 12/03/2022 Supplemental oxygen dependent 05/06/2022 Nasal septal perforation 05/06/2022 Chronic respiratory failure with hypoxia 022 Granulomatous lung disease 09/18/2021 Chronic rhinitis 06/10/2021 Schatzki's ring of distal esophagus 06/10/2021 Chronic right-sided heart failure 04/08/2020 Coronary artery disease invo lving grayling coronary artery of grayling heart without angina pectoris 11/21/2018 Abnormality of [...] as of this encounter (statuses as of 08/19/2023) Resolved Problems Problem Noted Date Diagnosed Date [...] and draped in usual sterile manner. 14 Guamanian flexible cystoscope inserted into urethra and guided [...] as of this encounter (statuses as of 08/19/2023) Immunizations Name Administration Dates Next Due COVID-19 mRNA, LNP-s, No Pre serve, 2-Dose Series ([employer]) 05/14/2020,04/18/2020 H1N1 2009 Influenza, IM 04/22/2009 PPD [...] as of this encounter Miscellaneous Notes * Addendum Note - Zoe Richter PA-C - 08/19/2023 5:17 PM EDTAddended by: ZOE RICHTER on: 08/19/2023 05:17 PM Modules accepted: Orders * Telephone Encounter - Shanta Cote OSA - 08/19/2023 4:03 PM EDT Daughter calling in about lasix refill. Explained to patient' daughter that the Discharge summary from last hospital visit was requested before refill. She stated her dad is almost out and his legs are swelling and worried about him over the weekend. * Telephone Encounter - Jennifer Sarkar MD - 08/19/2023 2:58 PM EDT Pt missed hosp f/u 08/01/23 adm 07/02--Dc summary printed PL reschedule hosp f/u Lasix dose was dec to 20mg from hosp dc. Need Dc summary from [facility] before RF lasix. * Addendum Note - Clarke Stern RN - 08/19/2023 1:28 PM EDTAddended by: CLARKE STERN on: 08/19/2023 01:28 PM Modules accepted: Orders * Telephone Encounter - Clarke Stern RN - 08/19/2023 1:27 PM EDT Pending Prescriptions: Disp Refills Furosemide 40 MG Oral Tablet (Lasix) 100 Ta*3 Sig: TAKE BY MOUTH ONE TABLET IN THE MORNING. TAKE ADDITIONAL ONE FOR THREE DAYS AND DIRECTED. Last Visit: 07/08/2022 (in office), 07/05/2019 (telemedicine) Next Visit: 09/08/2023 Last medication order date: 09/21/2022 Have you choosen a preferred pharm?? 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 Abnormality of gait Chronic right-sided heart failure (HCC) Chronic rhinitis Schatzki's ring of distal esophagus Granulomatous lung disease (HCC) Chronic respiratory failure with hypoxia (HCC) Supplemental oxygen dependent Nasal septal perforation Hypercalcemia Labs: Lab Results Component Value Date/Time CREATININE - [facility] 0.9 08/17/2023 08:38 AM CREATININE - [facility] 1.0 01/02/2020 12:23 PM CREATININE, RANDOM URINE - [facility] 62 09/09/2021 02:10 PM CREATININE, RANDOM URINE - [facility] 116 10/10/2012 10:41 AM CREATININE-OUTSIDE LAB 1.00 10/03/2020 12:00 AM Lab Results Component Value Date/Time POTASSIUM - [facility] 4.5 03/23/2023 01:05 PM POTASSIUM - [facility] 4.0 01/02/2020 12:23 PM POTASSIUM-OUTSIDE LAB 4.0 10/03/2020 12:00 AM Lab Results Component Value Date/Time TSH - [facility] 1.70 03/23/2023 01:05 PM TSH - [facility] 1.32 01/02/2020 12:23 PM Lab Results Component Value Date/Time LDL CHOLESTEROL (CALCULATED) - [facility] 43 11/21/2017 02:01 PM LDL CHOLESTEROL (CALCULATED) - [facility] 47 01/19/2017 08:04 AM LDL CHOLESTEROL (DIRECT MEASURE) - [facility] 52 03/23/2023 01:05 PM LDL CHOLESTEROL (DIRECT MEASURE) - [facility] 49 05/18/2022 12:54 PM LDL CHOLESTEROL (DIRECT MEASURE) - [facility] 57 01/02/2020 12:23 PM LDL CHOLESTEROL (DIRECT MEASURE) - [facility] 54 11/21/2018 02:46 PM LDL CHOLESTEROL (DIRECT MEASURE) - [facility] 39 04/27/2013 11:50 AM LDL CHOLESTEROL (DIRECT MEASURE) - [facility] 48 03/23/2012 02:49 PM Lab Results Component Value Date/Time ALT - [facility] 13 03/23/2023 01:05 PM ALT - [facility] 20 01/02/2020 12:23 PM Hemoglobin AIC Results: Lab Results Component Value Date/Time HEMOGLOBIN A1C - [facility] 5.6 10/09/2008 01:40 PM HEMOGLOBIN A1C - [facility] 4.9 01/16/2008 10:43 AM * Telephone Encounter - Clarke Stern RN - 08/19/2023 1:19 PM EDT Called and spoke to the patient and he stated his feet are swelling and he is getting short of breath. He state dhe has cut his furosemide in half as he is running low. I told him that is why his feet are swelling and moist likely having trouble breathing. I explained that he will need to go back on the 40 mg daily and he can take an extra one when needed as written on the medicine bottle. Also explained that we got him an appointment for at 2:15 pm. He stated he understood. * Telephone Encounter - Byron Otoole OSA - 08/19/2023 12:53 PM EDT Currently no appts with Dr. Ramirez, patient has seen Zoe Richter. I called patient, and LM for himletting him know the date and time of the appt and that I do not have anything with Dr. Ramirez, and he has seen Zoe in the past. Also LM to call me back if there is a problem. Patient is scheduled with Zoe on: Aug Arrive by 2:15 PM Appt at 2:30 PM (30 min) * Telephone Encounter - Hien Buchanan LPN - 08/19/2023 12:29 PM EDT Spoke with pt regarding PSA results. Patient states he feels his legs are swelling more than usual,and he is cutting furosemide pills in half because he is running low. Patient is asking if he can increase his oxygen from 3 LPM to 4 LPM, states he is having difficultybreathing, feels this may be related to humidity. Patient overdue for cardiology appointment, would like to see Dr Ramirez if possible. Please contact patient with advice. Routing high priority to both cardiology and PCP's office. Thank you, Hien Buchanan LPN * Telephone Encounter - Paulina Sandhu CPhT - 08/17/2023 2:20 PM EDT Nurse calling for a refill on Furosemide . This was last prescribed by Cardiology . Transfer to specialty refill line. Thank you, Paulina Sandhu Hi Low Truck Driver II [facility] (formerly [facility]) 08/17/2023 2:20 PM documented in this encounter Plan of Treatment Upcoming Encounters Date Type Department Care Team (Late st Contact Info) Description 08/30/2023 9:30 AM EDT Imaging Radiology, [place] [address] [place] [address] 09/08/2023 2:30 PM EDT Office Visit Cardiology, [facility] [address] [place] [address] Zoe Richter PA-C [address] [place] [address] 09/14/2023 10:30 AM EDT Nurse Only Rheumatology [place] [address] [address] Pf, Nurse Rheum [facility] [place] [address] 10/20/2023 7:00 AM EDT Office Visit Nephrology, [facility] [address] [place] [address] Yumiko Philippe MD [address] [place] [address] 11/07/2023 2:30 PM EDT Imaging Radiology, [place] [address] [address] 11/30/2023 12:30 PM EDT Office Visit Orthopaedics [facility] [address] [place] [address] Ely Cabrales MD [address] [place] [address] 12/20/2023 9:45 AM EDT Office Visit Urology, [facility] [address] [place] [address] Man Gu MD [address] [place] [address] 12/26/2023 11:20 AM EST Office Visit General Internal Medicine [facility] [address] [place] [address] Jennifer [facility]ar MD [address] [facility] [address] Scheduled Procedures Name Priority Associated Diagnoses Date/Ti me COLONOSCOPY FLEXIBLE PROXIMAL DIAGNOSTIC Recall History of colon polyps Health Maintenance Due Date Last Done Comments DXA Scan 08/05/2021 08/06/2019, 04/2017, 05/13/2015, Additional history exists Colonoscopy 06/03/2022 06/03/2017, 02/01/2007 Depression Monitoring 09/09/2022 09/09/2021 COVID-19 Vaccine ( season) 2022 05/14/2020, 04/18/2020 TSH 03/23/2024 03/23/2023, 11/21, 08/11/2022, [...] D LEVEL ONCE IN A LIFETIME-USE SMARTSET# [id number] Completed 08/17/2023, 12/01/2022, 09/09/2021, Additional history exists GARDASIL-HPV IMMUNIZATION SERIES Aged Out No longer eligible based on patient's age to complete this topic Hepatitis B Aged Out No longer eligi ble based on patient's age to complete this topic MENINGOCOCCAL (MENACTRA/MENVEO) Aged Out No longer eligible based on patient's age to complete this topic documented as of this encounter Medical Devices Implanted Type Area Family Counselor Device Identifier Shelf Expiration Date Model / Serial / Lot Lens Intraoc 23.0 - [id number] - [id number] Implanted:Qty: 1 on 12/21/2016 by Raj Bernard MD at OR [facility] Left: Eye [employer]USCH [employer] LOMB 06/20/2021 [id number] / [id number] / Lens Intraoc 22.0 - [id number] - [id number] Implanted:Qty: 1 on 01/06/2017 by Raj Bernard MD at OR 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 No Care Teams Prospecting Observer Relationship Specialty Start Date End Date Jennifer Sarkar MD [address] [place] [address] PCP - General Internal Medicine 10/06/20 documented as of this encounter
--- OUTSIDE RECORDS SUMMARY | 2023-10-28 23:14 | External Medical Summary | Summary of Care ---
Author Name Unknown Organization [facility] Address [address] [facility] [place] [address] Phone [phone] Care Team Providers Care Podiatric Surgeon Name Role Phone Jennifer Sarkar MD Primary Care Provider [phone] Reason for Visit * Reason Comments eRx-Medication Refill Encounter Details Date Type Department Care Team (Late st Contact Info) Description 09/26/2023 Refill General Internal Medicine [facility] 200 [facility] [place] [address] Jennifer Sarkar MD 200 [place] [address] Acquired hypothyroidism; BPH with obstruction/lower urinary tract symptoms Allergies Active Allergy Reactions Criticality Noted Date [...] Active Additional Information Patient taking differently:1,000 mg [id number] PRN, ,may take 3rd dose in between [...] Oral Tablet (Lasix)Indications:C oronary artery disease involving shinnecock coronary artery of shinnecock heart without angina pectoris,Chronic right-sided heart failure [...] MEDS) 90 Tablet 1 09/27/19 24 Active Tamsulosin HCl 0.4 MG Oral Capsule (Flomax)Indications: BPH with obstruction/lower urinary tract symptoms TAKE 1 CAPSULE BY MOUTH EVERYDAY AT BEDTIME 90 Capsule 1 09/27/19 24 Active Citalopram Hydrobromide 20 MG Oral Tablet (CeleXA) TAKE 1 TABLET BY MOUTH EVERY DAY FOR DEPRESSION 90 Tablet 1 09/27/19 24 Active Levothyroxine Sodium 112 MCG Oral Tablet (Levoxyl)Indications :Acquired hypothyroidism TAKE 1 TABLET BY MOUTH IN THE MORNING. (AT LEAST 30 MIN PRIOR TO BREAKFAST OR OTHER MEDS) 90 Tablet 06/16/19 24 024 Discontinued Citalopram Hydrobromide 20 MG Oral Tablet (CeleXA) TAKE 1 TABLET BY MOUTH EVERY DAY FOR DEPRESSION 90 Tablet 06/16/19 24 024 Discontinued Tamsulosin HCl 0.4 MG Oral Capsule (Flomax)Indications: BPH with obstruction/lower urinary tract symptoms Take 1 Capsule by mouth at bedtime. St 06/22/2023 90 Capsule 07/28/19 24 024 Discontinued documented as of this encounter (statuses as of 09/27/2023) Active Problems Problem Noted Date Diagnosed Date Hypercalcemia 12/03/2022 Supplemental oxygen dependent 05/06/2022 Nasal septal perforation 05/06/2022 Chronic respiratory failure with hypoxia 022 Granulomatous lung disease 09/18/2021 Chronic rhinitis 06/10/2021 Schatzki's ring of distal esophagus 06/10/2021 Chronic right-sided heart failure 04/08/2020 Coronary artery disease invo lving shinnecock coronary artery of shinnecock heart without angina pectoris 11/21/2018 Abnormality of [...] hypoxemia 06/08/2007 Overview: 3 LPM at bedtime [employer] SPINAL STENOSIS-LUMBAR 07/29/2005 Idiopathic scoliosis [...] mRNA, LNP-s, No Pre serve, 2-Dose Series ([employer]) 05/14/2020,04/18/2020 H1N1 2009 Influenza, IM 04/22/2009 PPD [...] encounter Miscellaneous Notes * Telephone Encounter - Bear Soriano RPh - 09/27/2023 12:54 PM EDTSigned Prescriptions: Disp Refills Levothyroxine Sodium 112 MCG Oral Tablet (*90 Tab*1 Sig: TAKE 1 TABLET BY MOUTH IN THE MORNING. (AT LEAST 30 MIN PRIOR TO BREAKFAST OR OTHER MEDS)Authorizing Provider: Tabitha SARKAR User: DURA, BEAR Tamsulosin HCl 0.4 MG Oral Capsule (Flomax)90 Cap*1 Sig: TAKE 1 CAPSULE BY MOUTH EVERYDAY AT BEDTIMEAuthorizing Provider: Tabitha SARKAR User: BEAR SORIANO Citalopram Hydrobromide 20 MG Oral Tablet *90 Tab*1 Sig: TAKE 1 TABLET BY MOUTH EVERY DAY FOR DEPRESSIONAuthorizing Provider: Tabitha SARKAR User: BEAR SORIANO documented in this encounter Plan of Treatment Upcoming Encounters Date Type Department Care Team (Late st Contact Info) Description 10/20/2023 7:00 AM EDT Office Visit Nephrology, [facility] [address] [place] [address] Yumiko Philippe MD [address] [place] [address] 11/30/2023 12:30 PM EDT Office Visit Orthopaedics [facility] [address] [address] Ely Cabrales MD [address] [address] 12/20/2023 9:45 AM EDT Office Visit Urology, [facility] [address] [address] Man Gu MD [address] [place] [place] [address] 12/26/2023 11:20 AM EST Office Visit General Internal Medicine [facility] [address] [place] [address] Jennifer Sarkar MD 200 [place] [address] 03/16/2024 2:00 PM EST Office Visit Cardiology, [facility] [address] [place] [address] Job Bravo PA-C [address] [place] [address] Scheduled Procedures Name Priority Associated Diagnoses Date/Ti [...] D LEVEL ONCE IN A LIFETIME-USE SMARTSET# [id number] Completed 08/17/2023, 12/01/2022, 09/09/2021, Additional history exists [...] encounter Medical Devices Implanted Type Area Senior Clinical Study Manager Device Identifier Shelf Expiration Date Model / Serial / Lot Lens Intraoc 23.0 - [id number] - [id number] Implanted:Qty: 1 on 12/21/2016 by Raj Bernard MD at OR [facility] Left: Eye [employer]CH [employer] LOMB 06/20/2021 [id number] / [id number] / Lens Intraoc 22.0 - [id number] - [id number] Implanted:Qty: 1 on 01/06/2017 by Raj Bernard MD at OR [facility] Right: Eye BAUSCH [employer] LOMB 08/20/2021 [id number] / [id number] / [id number] documented as of this encounter Visit Diagnoses Diagnosis Acquired hypothyroidism Unspecified hypothyroidism BPH with obstruction/lower urinary tract symptoms Hypertrophy [...] Power of Attor bj? No Care Teams Podiatric Surgeon Relationship Specialty Start Date End Date Jennifer Sarkar MD [address] [place] [address] PCP - General Internal Medicine 10/06/20 documented as of this encounter
--- OUTSIDE RECORDS SUMMARY | 2023-10-28 23:14 | External Medical Summary | Summary of Care ---
Author Name Unknown Organization [facility] Address [address] [address] Phone [phone] Care Team Providers Care Elastic Yarn Twister Helper Name Role Phone Jennifer Sarkar MD Primary Care Provider [phone] Reason for Visit * Reason Onset Date Comments Test Results 09/09/2023 Encounter Details Date Type Department Care Team (Late st Contact Info) Description 09/09/2023 Telephone Cardiology, [facility] [address] [place] [address] Job Bravo PA-C [address] [place] [address] Test Results Allergies Active Allergy Reactions Criticality Noted Date Comments Food (See Comments) 03/21/2018 Other reaction(s): WAS TOLD NOT TO TAKE grapefruit Tramadol Other (Please comment) High 10/06/2020 Hallucinations documented as of this encounter (statuses as of 09/09/2023) Medications Medication Sig Dispensed Refills Start Date [...] Active Additional Information Patient taking differently:1,000 mg [id number] PRN, ,may take 3rd dose in between [...] Oral Tablet (Lasix)Indications:Co ronary artery disease involving seneca-cayuga coronary artery of seneca-cay[place] heart without angina pectoris,Chronic right-sided heart failure (HCC),Bilateral leg edema,Encounter for monitoring diuretic therapy 40 mg in the AM and 20 mg in the early afternoon 135 Tablet 3 4 Active documented as of this encounter (statuses as of 09/09/2023) Active Problems Problem Noted Date Diagnosed Date Hypercalcemia 12/03/2022 Supplemental oxygen dependent 05/06/2022 Nasal septal perforation 05/06/2022 Chronic respiratory failure with hypoxia 022 Granulomatous lung disease 09/18/2021 Chronic rhinitis 06/10/2021 Schatzki's ring of distal esophagus 06/10/2021 Chronic right-sided heart failure 04/08/2020 Coronary artery disease invo lving seneca-cayuga coronary artery of seneca-cayuga heart without angina pectoris 11/21/2018 Abnormality of [...] as of this encounter (statuses as of 09/09/2023) Resolved Problems Problem Noted Date Diagnosed Date [...] and draped in usual sterile manner. 14 Yi flexible cystoscope inserted into urethra and guided [...] NOS 01/13/2009 Overview: Modified per [facility] protocol #16. Screening for prostate cancer 01/03/2007 Asthma, allergic 04/22/2009 Osteoporosis 02/24/2017 documented as of this encounter (statuses as of 09/09/2023) Immunizations Name Administration Dates Next Due COVID-19 [...] Telephone Encounter - Phillip Hess LPN - 09/09/2023 4:43 PM EDT Called patient and left Job's message on an identified voicemail to make patient aware. BMP ordered. ----- Message from Job Bravo sent at 09/08/2023 4:25 PM EDT ----- Repeat basic metabolic panel in 3 weeks documented in this encounter Plan of Treatment Upcoming Encounters Date Type Department Care Team (Late st Contact Info) Description 09/14/2023 10:30 AM EDT Nurse Only Rheumatology [facility] [address] [place] [address] Pf, Nurse Rheum [address] [place] [address] 10/20/2023 7:00 AM EDT Office Visit Nephrology, [facility] [address] [facility] [place] [address] Yumiko Philippe MD 200 [facility] [place] [address] 11/30/2023 12:30 PM EDT Office Visit Orthopaedics [facility] 132 [facility] [place] [address] Ely Cabrales MD 132 [facility] [place] [address] 12/20/2023 9:45 AM EDT Office Visit Urology, [facility] 132 [facility] [place] [address] Man Gu MD [address] [facility] [place] [address] 12/26/2023 11:20 AM EST Office Visit General Internal Medicine [facility] [address] [facility] [place] [address] Jennifer Sarkar MD 200 [facility] [place] [address] 03/16/2024 2:00 PM EST Office Visit Cardiology, [facility] 132 [facility] [place] [address] Job Bravo PA-C 132 [facility] [place] [address] Scheduled Orders Name Type Priority Associated Diagnoses Orde r Schedule BASIC METABOLIC PANEL Lab Routine Encounter for monitoring diuretic therapy Expected: 09/30/2023 (Approximate), Expires: 09/08/2024 Scheduled Procedures Name Priority Associated Diagnoses Date/Ti [...] D LEVEL ONCE IN A LIFETIME-USE SMARTSET# [id number] Completed 08/17/2023, 12/01/2022, 09/09/2021, Additional history exists [...] this encounter Medical Devices Implanted Type Area Cap Inspector Device Identifier Shelf Expiration Date Model / Serial / Lot Lens Intraoc 23.0 - [id number] - [id number] Implanted:Qty: 1 on 12/21/2016 by Raj Bernard MD at OR [facility] Left: Eye [employer]CH [employer] LOMB 06/20/2021 [id number] / [id number] / Lens Intraoc 22.0 - [id number] - [id number] Implanted:Qty: 1 on 01/06/2017 by Raj Bernard MD at [facility] Right: Eye [employer]USCH [employer] LOMB 08/20/2021 [id number] / [id number] / [id number] documented as of this encounter Visit Diagnoses Diagnosis Encounter for monitoring diuretic therapy- Primary Encounter for therapeutic drug monitoring documented in [...] Power of Attor bj? No Care Teams Elastic Yarn Twister Helper Relationship Specialty Start Date End Date Jennifer Sarkar MD [address] [place] [address] PCP - General Internal Medicine 10/06/20 documented as of this encounter
--- OUTSIDE RECORDS SUMMARY | 2023-10-28 23:14 | External Medical Summary | Summary of Care ---
Author Name Unknown Organization [facility] Address [address] [facility] [place] [address] Phone [phone] Care Team Providers Care Director Construction Services Name Role Phone Jennifer Sarkar MD Primary Care Provider [phone] Reason for Visit * Reason Onset Date Comments Advice 09/06/2023 Encounter Details Date Type Department Care Team (Late st Contact Info) Description 09/06/2023 Telephone General Internal Medicine [facility] 200 [place] [address] Jennifer Sarkar MD 200 [place] [address] Advice Allergies Active Allergy Reactions Criticality Noted Date Comments Food (See Comments) 03/21/2018 Other reaction(s): WAS TOLD NOT TO TAKE grapefruit Tramadol Other (Please comment) High 10/06/2020 Hallucinations documented as of this encounter (statuses as of 09/08/2023) Medications Medication Sig Dispensed Refills Start Date [...] Active Additional Information Patient taking differently:1,000 mg [id number] PRN, ,may take 3rd dose in between [...] 4 Active Furosemide 40 MG Oral Tablet (Lasix)Indications:Ch ronic right-sided heart failure (HCC),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,Bilateral leg edema TAKE BY MOUTH ONE TABLET IN THE MORNING AND/OR DIRECTED 120 Tablet 3 4 Active documented as of this encounter (statuses as of 09/08/2023) Active Problems Problem Noted Date Diagnosed Date Hypercalcemia 12/03/2022 Supplemental oxygen dependent 05/06/2022 Nasal septal perforation 05/06/2022 Chronic respiratory failure with hypoxia 022 Granulomatous lung disease 09/18/2021 Chronic rhinitis 06/10/2021 Schatzki's ring of distal esophagus 06/10/2021 Chronic right-sided heart failure 04/08/2020 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 14 Hebrew flexible cystoscope inserted into urethra and guided [...] as of this encounter (statuses as of 09/08/2023) Immunizations Name Administration Dates Next Due COVID-19 mRNA, LNP-s, No Pre serve, 2-Dose Series (Gevo) 05/14/2020,04/18/2020 H1N1 2009 Influenza, IM 04/22/2009 PPD [...] Telephone Encounter - Melvin Trujillo OSA - 09/08/2023 7:54 AM EDT Spoke with patient. Will call back to schedule * Telephone Encounter - Melvin Trujillo OSA - 09/07/2023 10:26 AM EDT LMOM 09/07/23 to schedule * Telephone Encounter - Renetta Chen MED ASSIST - 09/06/2023 3:16 PM EDT Patient aware and receptive to instructions. He will await a call to schedule with Mello. * Telephone Encounter - Jennifer Sarkar MD - 09/06/2023 2:48 PM EDT We have not seen him since last rehab DC Ann appt ALBA for 40 min hosp f/u and eval May give extra lasix 20mg one dose Fluid restriction to 5-6cups(8oz)/d If sx worse go to ER. Wt Readings from Last 4 Encounters: 08/11/23 73 kg (161 lb) 06/22/23 74.8 kg (164 lb 12.8 oz) 03/23/23 71.6 kg (157 lb 14.4 oz) 12/21/22 73.3 kg (161 lb 8 oz) * Telephone Encounter - Karissa Ryan LPN - 09/06/2023 2:10 PM EDT HH Concerns Tonia RN, Calling from: [facility] Report/Concerns of: Weight Gain Vitals: T 97.1 P 72 RR 18 BP 115/70 SP O2 95% 3LPM Narrative: Tonia at patient's home at the time of call. Feeling a little off the last 3 days, more SOB, abd distended, edema Lungs clear but diminished. Weight gain 09/04 161.2lb 09/05 164lb Takes 40mg of furosemide daily. Tonia will add additional visit on this week to check up on patient. Spoke with Jayde in office she will make Dr. Sarkar aware of message and address. documented in this encounter Plan of Treatment Upcoming Encounters Date Type Department Care Team (Late st Contact Info) Description 09/08/2023 2:30 PM EDT Office Visit Cardiology, [facility] [address] [place] [address] Job Bravo PA-C [address] [place] [address] 09/14/2023 10:30 AM EDT Nurse Only Rheumatology [facility] [address] [facility] [place] [address] Pf, Nurse Rheum [address] [place] [address] [place] [address] 10/20/2023 7:00 AM EDT Office Visit Nephrology, [facility] 200 [facility] [place] [address] Yumiko Philippe MD 200 [facility] [place] [address] 11/30/2023 12:30 PM EDT Office Visit Orthopaedics [facility] 132 [facility] [place] [address] Ely Cabrales MD 132 [place] [address] 12/20/2023 9:45 AM EDT Office Visit Urology, [facility] 132 [place] [address] aMn Gu MD [address] [place] [id number] 12/26/2023 11:20 AM EST Office Visit General Internal Medicine [facility] 200 [facility] [place] [address] Jennifer Sarkar MD 200 [facility] [place] [address] Scheduled Procedures Name Priority Associated Diagnoses Date/Ti [...] D LEVEL ONCE IN A LIFETIME-USE SMARTSET# 26979 Completed 08/17/2023, 12/01/2022, 09/09/2021, Additional history exists [...] this encounter Medical Devices Implanted Type Area Shoe Repairman Device Identifier Shelf Expiration Date Model / Serial / Lot Lens Intraoc 23.0 - [id number] - [id number] Implanted:Qty: 1 on 12/21/2016 by Raj Bernard MD at OR [facility] Left: Eye BAUSCH & LOMB 06/20/2021 [id number] / [id number] / Lens Intraoc 22.0 - [id number] - [id number] Implanted:Qty: 1 on 01/06/2017 by Raj Bernard MD at OR [facility] Right: Eye BAUSCH & LOMB 08/20/2021 [id number] / [id number] / [id number] documented as of this encounter Advance Directives [...] Power of Attor bj? No Care Teams Director Construction Services Relationship Specialty Start Date End Date Jennifer Sarkar MD [address] [place] [address], [place] [address] PCP - General Internal Medicine 10/06/20 documented as of this encounter
--- OUTSIDE RECORDS SUMMARY | 2023-10-28 23:14 | External Medical Summary | Summary of Care ---
Author Name Unknown Organization [facility] Address [address] [place] [address] Phone [phone] Care Team Providers Care Hospital Educator Name Role Phone Jennifer Sarkar MD Primary Care Provider [phone] Encounter Details Date Type Department Care Team (Late st Contact Info) Description 07/03/2023 Result Scan Unspecified Department <No scans attached> Allergies Active Allergy Reactions Criticality Noted Date Comments Food (See Comments) 03/21/2018 Other reaction(s): WAS TOLD NOT TO TAKE grapefruit Tramadol Other (Please comment) High 10/06/2020 Hallucinations documented as of this encounter (statuses as of 09/02/2023) Medications Medication Sig Dispensed Refills Start Date [...] Active Additional Information Patient taking differently:1,000 mg QewsV0L PRN, ,may take 3rd dose in between [...] split or chew the tablet--dec 12/21/2021(nml EGD 08/21/21)--[facility] timing 05/18/2022 90 Tablet 3 3 Active [...] from 06/23/2023. 90 Capsule 1 4 Active documented as of this encounter (statuses as of 09/02/2023) Active Problems Problem Noted Date Diagnosed Date Hypercalcemia 12/03/2022 Supplemental oxygen dependent 05/06/2022 Nasal septal perforation 05/06/2022 Chronic respiratory failure with hypoxia 022 Granulomatous lung disease 09/18/2021 Chronic rhinitis 06/10/2021 Schatzki's ring of distal esophagus 06/10/2021 Chronic right-sided heart failure 04/08/2020 Coronary artery disease invo lving [place] coronary artery of [place] heart without angina pectoris 11/21/2018 [...] as of this encounter (statuses as of 09/02/2023) Resolved Problems Problem Noted Date Diagnosed Date [...] and draped in usual sterile manner. 14 Lithuanian flexible cystoscope inserted into urethra and guided [...] as of this encounter (statuses as of 09/02/2023) Immunizations Name Administration Dates Next Due COVID-19 mRNA, LNP-s, No Pre serve, 2-Dose Series (Actions) 05/14/2020,04/18/2020 H1N1 2009 Influenza, IM 04/22/2009 PPD [...] 09/08/2023 2:30 PM EDT Office Visit Cardiology, [facility] 132 [facility] [place] [address] Job Bravo PA-C 132 [facility] [place] [address] 09/14/2023 10:30 AM EDT Nurse Only Rheumatology [facility] 25[address] [facility] [place] [address] Pf, Nurse Rheum [facility] [place] [address] 10/20/2023 7:00 AM EDT Office Visit Nephrology, [facility] 200 [facility] [place] [address] Yumiko Philippe MD 200 [facility] [place] [address] 11/30/2023 12:30 PM EDT Office Visit Orthopaedics [facility] 132 [facility] [place] [address] Ely Cabrales MD 132 [facility] [place] [address] 12/20/2023 9:45 AM EDT Office Visit Urology, [facility] 132 [facility] [place] [address] Man Gu MD [address] [place] [address] 12/26/2023 11:20 AM EST Office Visit General Internal Medicine [facility] 200 [facility] [place] [address] Jennifer Sarkar MD 200 [facility] [place] [address] Scheduled Procedures Name Priority Associated Diagnoses Date/Ti [...] D LEVEL ONCE IN A LIFETIME-USE SMARTSET# [id number] Completed 08/17/2023, 12/01/2022, 09/09/2021, Additional history exists [...] this encounter Medical Devices Implanted Type Area Learning Consultant Device Identifier Shelf Expiration Date Model / Serial / Lot Lens Intraoc 23.0 - [id number] - [id number] Implanted:Qty: 1 on 12/21/2016 by Raj Bernard MD at OR [facility] Left: Eye BAUSCH [employer] LOMB 06/20/2021 [id number] / [id number] / Lens Intraoc 22.0 - [id number] - [id number] Implanted:Qty: 1 on 01/06/2017 by Raj Bernard MD at OR [facility] Right: Eye [employer]USCH [employer] LOMB 08/20/2021 [id number] / [id number] / [id number] documented as of this encounter Procedures Procedure Name Priority Date/Time Associated Diagnosis Comments RADIOLOGY SCANNED RESULT 07/03/2023 RADIOLOGY SCANNED RESULT 07/03/2023 RADIOLOGY SCANNED RESULT 07/03/2023 documented in this encounter Results * RADIOLOGY SCANNED RESULT (07/03/2023) 07/03/2023 No Physician Data Unknown DIAGNOSTIC RAD IOLOGY SERVICES * RADIOLOGY SCANNED RESULT (07/03/2023) 07/03/2023 No Physician Data Unknown DIAGNOSTIC RAD IOLOGY SERVICES * RADIOLOGY SCANNED RESULT (07/03/2023) 07/03/2023 No Physician Data Unknown DIAGNOSTIC RAD IOLOGY SERVICES documented in this encounter Advance Directives * [...] Power of Attor bj? No Care Teams Hospital Educator Relationship Specialty Start Date End Date Jennifer Sarkar MD [address] [place] [address] PCP - General Internal Medicine 10/06/20 documented as of this encounter
--- OUTSIDE RECORDS SUMMARY | 2023-10-28 23:14 | External Medical Summary | Summary of Care ---
Author Name Unknown Organization [facility] Address [address] [facility] [place] [address] Phone [phone] Care Team Providers Care Testing Coordinator Name Role Phone Jennifer Sarkar MD Primary Care Provider [phone] Reason for Visit * Reason Onset Date Comments Advice 09/06/2023 Encounter Details Date Type Department Care Team (Late st Contact Info) Description 09/06/2023 Telephone General Internal Medicine [facility] 200 [place] [address] Jennifer Sarkar MD 200 [place] [address] Advice Allergies Active Allergy Reactions Criticality Noted Date Comments Food (See Comments) 03/21/2018 Other reaction(s): WAS TOLD NOT TO TAKE grapefruit Tramadol Other (Please comment) High 10/06/2020 Hallucinations documented as of this encounter (statuses as of 09/07/2023) Medications Medication Sig Dispensed Refills Start Date [...] Active Additional Information Patient taking differently:1,000 mg OdnoY0P PRN, ,may take 3rd dose in between [...] right-sided heart failure (HCC),Coronary artery disease involving venet[place] coronary artery of [place]et[place] heart without angina pectoris,Bilateral leg edema TAKE BY MOUTH ONE TABLET IN THE MORNING AND/OR DIRECTED 120 Tablet 3 4 Active documented as of this encounter (statuses as of 09/07/2023) Active Problems Problem Noted Date Diagnosed Date Hypercalcemia 12/03/2022 Supplemental oxygen dependent 05/06/2022 Nasal septal perforation 05/06/2022 Chronic respiratory failure with hypoxia 022 Granulomatous lung disease 09/18/2021 Chronic rhinitis 06/10/2021 Schatzki's ring of distal esophagus 06/10/2021 Chronic right-sided heart failure 04/08/2020 Coronary artery disease invo lving [place] coronary artery of venet[place] heart without angina pectoris 11/21/2018 Abnormality of [...] as of this encounter (statuses as of 09/07/2023) Resolved Problems Problem Noted Date Diagnosed Date [...] and draped in usual sterile manner. 14 Luxembourgish flexible cystoscope inserted into urethra and guided [...] as of this encounter (statuses as of 09/07/2023) Immunizations Name Administration Dates Next Due COVID-19 mRNA, LNP-s, No Pre serve, 2-Dose Series (Solfo) 05/14/2020,04/18/2020 H1N1 2009 Influenza, IM 04/22/2009 PPD [...] EDT HH Concerns Tonia RN, Calling from: [facility] Report/Concerns of: Weight Gain Vitals: T 97.1 [...] 09/08/2023 2:30 PM EDT Office Visit Cardiology, [facility] [address] [place] [address] Job Bravo PA-C [address] [place] [address] 09/14/2023 10:30 AM EDT Nurse Only Rheumatology [facility] [address] [place] [address] Pf, Nurse Rheum [address] [place] [address] 10/20/2023 7:00 AM EDT Office Visit Nephrology, [address] [place] [address] Yumiko Philippe MD 200 [place] [address] 11/30/2023 12:30 PM EDT Office Visit Orthopaedics [facility] 132 [place] [address] Ely Cabrales MD 132 [place] [address] 12/20/2023 9:45 AM EDT Office Visit Urology, [facility] 132 [place] [address] Man Gu MD [address] [place] [place] [address] 12/26/2023 11:20 AM EST Office Visit General Internal Medicine [facility] 200 [place] [address] Jennifer Sarkar MD 200 [place] [address] Scheduled Procedures Name Priority Associated Diagnoses Date/Ti [...] D LEVEL ONCE IN A LIFETIME-USE SMARTSET# 78410 Completed 08/17/2023, 12/01/2022, 09/09/2021, Additional history exists [...] this encounter Medical Devices Implanted Type Area Hearing Screen Coordinator Device Identifier Shelf Expiration Date Model / Serial / Lot Lens Intraoc 23.0 - [id number] - [id number] Implanted:Qty: 1 on 12/21/2016 by Raj Bernard MD at OR [facility] Left: Eye BAUSCH [employer] LOMB 06/20/2021 [id number] / [id number] / Lens Intraoc 22.0 - [id number] - [id number] Implanted:Qty: 1 on 01/06/2017 by Raj Bernard MD at OR [facility] Right: Eye BAUSCH [employer] LOMB 08/20/2021 [id number] / [id number] / [id number] documented as of this encounter Advance Directives [...] Power of Attor bj? No Care Teams Testing Coordinator Relationship Specialty Start Date End Date Jennifer Sarkar MD 200 [place] [address] PCP - General Internal Medicine 10/06/20 documented as of this encounter
--- OUTSIDE RECORDS SUMMARY | 2023-10-28 23:14 | External Medical Summary | Summary of Care ---
Author Name Unknown Organization [facility] Address [address] [place] [address] Phone [phone] Care Team Providers Care Relationship Consultant Name Role Phone Jennifer Sarkar MD Primary Care Provider [phone] Reason for Visit * Reason Comments Outpatient Testing Encounter Details Date Type Department Care Team (Late st Contact Info) Description 09/08/2023 3:20 PM EDT Laboratory Laboratory, [facility] 132 [facility] [place] [address] [facility] 132 [facility] [place] [address] Encounter for monitoring diuretic therapy Allergies Active [...] Active Additional Information Patient taking differently:1,000 mg NsbbA4G PRN, ,may take 3rd dose in between [...] Oral Tablet (Lasix)Indications:Co ronary artery disease involving mechoopda coronary artery of mechoop[place] heart without angina pectoris,Chronic right-sided heart failure [...] failure 04/08/2020 Coronary artery disease invo lving [place] coronary artery of mechoopda heart without angina pectoris 11/21/2018 Abnormality of [...] and draped in usual sterile manner. 14 Cypriot flexible cystoscope inserted into urethra and guided [...] 09/14/2023 10:30 AM EDT Nurse Only Rheumatology [facility] [address] [place] [address] Pf, Nurse Rheum [address] [place] [address] 10/20/2023 7:00 AM EDT Office Visit NephrologyJuan [address] [place] [address] Yumiko Philippe MD [address] [place] [address] 11/30/2023 12:30 PM EDT Office Visit Orthopaedics [facility] [address] [place] [address] Ely Cabrales MD [address] [place] [address] 12/20/2023 9:45 AM EDT Office Visit Urology, [facility] [address] [place] [address] Man Gu MD 27 [facility] [place] [address] 12/26/2023 11:20 AM EST Office Visit General Internal Medicine [facility] 200 [facility] [place] [address] Jennifer Sarkar MD 200 [facility] [place] [address] 03/16/2024 2:00 PM EST Office Visit Cardiology, [facility] [place] [address] Job Bravo PA-C [address] [place] [address] Pending Results Name Type Priority Associated Diagnoses Date /Time BASIC METABOLIC PANEL Lab Routine Encounter for monitoring diuretic therapy 09/08/2023 3:24 PM EDT Scheduled Procedures Name Priority Associated [...] D LEVEL ONCE IN A LIFETIME-USE SMARTSET# [id number] Completed 08/17/2023, 12/01/2022, 09/09/2021, Additional history exists [...] this encounter Medical Devices Implanted Type Area Media Center Specialist Device Identifier Shelf Expiration Date Model / Serial / Lot Lens Intraoc 23.0 - [id number] - [id number] Implanted:Qty: 1 on 12/21/2016 by Raj Bernard MD at OR [facility] Left: Eye BAUSCH [employer] LOMB 06/20/2021 [id number] / [id number] / Lens Intraoc 22.0 - [id number] - [id number] Implanted:Qty: 1 on 01/06/2017 by Raj Bernard MD at OR [facility] Right: Eye BAUSCH & LOMB 08/20/2021 [id number] / [id number] / [id number] documented as of this encounter Visit Diagnoses Diagnosis Encounter for monitoring diuretic therapy Encounter for [...] Power of Attor bj? No Care Teams Relationship Consultant Relationship Specialty Start Date End Date Jennifer Sarkar MD 200 [place] [address] PCP - General Internal Medicine 10/06/20 documented as of this encounter
--- OUTSIDE RECORDS SUMMARY | 2023-10-28 23:14 | External Medical Summary ---
Author Name Unknown Address Unknown Organization [facility] [address] [place] [address] Laboratory Report Ordering Provider Test Date Status ORBER ENRIQUEZ 09/08/2023 15:24:38 Final Observation Date Value Abnormality Reference (Units ) Status BUN 09/08/2023 15:24:38 14 6-20 (mg/dL) Final Creatinine 09/08/2023 15:24:38 1.0 0.6-1.2 (mg/dL) Final Glomerular filtration rate/1.73 sq M.predicted [Volume Rate/Area] in Serum, Plasma or Blood by Creatinine-based formula (CKD-EPI) 09/08/2023 15:24:38 78 >=60 (mL/min) Final eGFR is calculated based on the CKD-EPI 2020 equation. Sodium 09/08/2023 15:24:38 140 135-146 (m mol/L) Final Potassium 09/08/2023 15:24:38 4.2 3.5-5.1 (m mol/L) Final Cl 09/08/2023 15:24:38 95 Below low normal 98- 107 (mmol/L) Final CO2 09/08/2023 15:24:38 35 Above high normal 22 -32 (mmol/L) Final Anion gap 09/08/2023 15:24:38 10 7-15 (mmol /L) Final Glucose 09/08/2023 15:24:38 113 70-120 (mg /dL) Final Calcium 09/08/2023 15:24:38 10.1 8.4-10.2 ( mg/dL) Final Per[facility] Location [facility] [place] [address]
--- OUTSIDE RECORDS SUMMARY | 2023-10-28 23:15 | External Medical Summary | Summary of Care ---
Author Name Unknown Organization [facility] Address [address] [address] Phone [phone] Care Team Providers Care Facing End Trimmer Name Role Phone Jennifer Sarkar MD Primary Care Provider [phone] Reason for Visit * Reason Onset Date Comments Med Request 08/17/2023 Encounter Details Date Type Department Care Team (Late st Contact Info) Description 08/17/2023 Telephone Cardiology, [facility] [address] [place] [address] Gala Martins CRNP [address] [place] [address] Med Request Allergies Active Allergy Reactions Criticality [...] Active Additional Information Patient taking differently:1,000 mg [id number] PRN, ,may take 3rd dose in between [...] right-sided heart failure (HCC),Coronary artery disease involving sen[place] coronary artery of seneca heart without angina pectoris,Bilateral leg edema TAKE [...] Take 30 mL by mouth. 4 Active documented as of this encounter (statuses as of 08/19/2023) Active Problems Problem Noted Date Diagnosed Date Hypercalcemia 12/03/2022 Supplemental oxygen dependent 05/06/2022 Nasal septal perforation 05/06/2022 Chronic respiratory failure with hypoxia 022 Granulomatous lung disease 09/18/2021 Chronic rhinitis 06/10/2021 Schatzki's ring of distal esophagus 06/10/2021 Chronic right-sided heart failure 04/08/2020 Coronary artery disease invo lving seneca coronary artery of seneca heart without angina pectoris 11/21/2018 Abnormality of [...] and draped in usual sterile manner. 14 Pashto flexible cystoscope inserted into urethra and guided [...] mRNA, LNP-s, No Pre serve, 2-Dose Series ([employer]) 05/14/2020,04/18/2020 H1N1 2009 Influenza, IM 04/22/2009 PPD [...] encounter Miscellaneous Notes * Telephone Encounter - Byron Otoole OSA - 08/19/2023 12:53 PM EDT Currently no appts with Dr. Ramirez, patient has seen Job Bravo. I called patient, and LM for himletting him know the date and time of the appt and that I do not have anything with Dr. Ramirez, and he has seen Job in the past. Also LM to call me back if there is a problem. Patient is scheduled with Job on: Aug Arrive by 2:15 PM Appt [...] specialty refill line. Thank you, Paulina Sandhu Intelligence Support Officer II Centralized Clinical Pharmacy Services (CCPS) (formerly Telepharmacy) 08/17/2023 2:20 PM documented in this encounter Plan of Treatment Upcoming Encounters Date Type Department Care Team (Late st Contact Info) Description 08/30/2023 9:30 AM EDT Imaging Radiology, [place] [address] [address] 09/08/2023 2:30 PM EDT Office Visit Cardiology, [facility] [address] [place] [address] Job Bravo PA-C [address] [place] [address] 09/14/2023 10:30 AM EDT Nurse Only Rheumatology [facility] [place] [address] [place] [address] Pf[facility] [address] [address] 10/20/2023 7:00 AM EDT Office Visit Nephrology, [facility] [address] [place] [address] Yumiko Philippe MD [address] [place] [address] 11/07/2023 2:30 PM EDT Imaging Radiology, [facility] [address] [facility] [place] [address] 11/30/2023 12:30 PM EDT Office Visit Orthopaedics [facility] 132 [facility] [place] [address] Ely Cabrales MD 132 [facility] [place] [address] 12/20/2023 9:45 AM EDT Office Visit Urology, [facility] 132 [facility] [place] [address] Man Gu MD [address] [place] [address] 12/26/2023 11:20 AM EST Office Visit General Internal Medicine [facility] [address] [place] [address] Jennifer Sarkar MD [address] [place] [address] Scheduled Procedures Name Priority Associated Diagnoses Date/Ti me COLONOSCOPY FLEXIBLE PROXIMAL DIAGNOSTIC Recall History of colon polyps Health Maintenance Due Date Last Done Comments DXA Scan 08/05/2021 08/06/2019, 04/0 04/2017, 05/13/2015, Additional history exists Colonoscopy 06/03/2022 [...] D LEVEL ONCE IN A LIFETIME-USE SMARTSET# 99417 Completed 08/17/2023, 12/01/2022, 09/09/2021, Additional history exists [...] this encounter Medical Devices Implanted Type Area Inspector Process Device Identifier Shelf Expiration Date Model / Serial / Lot Lens Intraoc 23.0 - [id number] - [id number] Implanted:Qty: 1 on 12/21/2016 by Raj Bernard MD at OR [facility] Left: Eye BAUSCH & LOMB 06/20/2021 [id number] / [id number] / Lens Intraoc 22.0 - [id number] - [id number] Implanted:Qty: 1 on 01/06/2017 by Raj Bernard MD at OR [facility] Right: Eye BAUSCH & LOMB 08/20/2021 [id number] / [id number] / [id number] documented as of this encounter Advance Directives [...] Power of Attor bj? No Care Teams Facing End Trimmer Relationship Specialty Start Date End Date Jennifer Sarkar MD [address] [place] [address] PCP - General Internal Medicine 10/06/20 documented as of this encounter
--- OUTSIDE RECORDS SUMMARY | 2023-10-28 23:15 | External Medical Summary | Summary of Care ---
Author Name Unknown Organization [facility] Address [address] [address] Phone [phone] Care Team Providers Care Electrical Panel Builder Name Role Phone Jennifer Sarkar MD Primary Care Provider Reason for Visit * Reason Onset Date Comments Med Request 08/17/2023 Encounter Details Date Type Department Care Team (Late st Contact Info) Description 08/17/2023 Telephone Cardiology, [facility] [address] [place] [address] Gala Martins CRNP [address] [place] [address] Med Request Allergies Active Allergy Reactions Criticality [...] Active Additional Information Patient taking differently:1,000 mg TrstO7V PRN, ,may take 3rd dose in between [...] right-sided heart failure (HCC),Coronary artery disease involving [place] coronary artery of [place] heart without angina pectoris,Bilateral leg edema TAKE [...] failure 04/08/2020 Coronary artery disease invo lving [place] coronary artery of [place] heart without angina pectoris 11/21/2018 Abnormality of [...] and draped in usual sterile manner. 14 Welsh flexible cystoscope inserted into urethra and guided [...] mRNA, LNP-s, No Pre serve, 2-Dose Series (Tig[employer]) 05/14/2020,04/18/2020 H1N1 2009 Influenza, IM 04/22/2009 PPD [...] Dr. Ramirez, patient has seen Job Bravo. Patient is scheduled with Job on: Aug [...] specialty refill line. Thank you, Paulina Sandhu Database Support II Centralized Clinical Pharmacy Services (CCPS) (formerly Telepharmacy) 08/17/2023 2:20 PM documented in this encounter Plan of Treatment Upcoming Encounters Date Type Department Care Team (Late st Contact Info) Description 08/30/2023 9:30 AM EDT Imaging Radiology, [place] [address] [address] 09/08/2023 2:30 PM EDT Office Visit Cardiology, [facility] 132 [facility] [place] [address] Job Bravo PA-C [facility] [address] 09/14/2023 10:30 AM EDT Nurse Only Rheumatology [place] [address] [address] Pf, [facility] [place] [address] 10/20/2023 7:00 AM EDT Office Visit Nephrology, [facility] [address] [place] [address] [place] [address] Yumiko Philippe MD [address] [place] [address] [address] 11/07/2023 2:30 PM EDT Imaging Radiology, [facility] [address] [facility] [place] [address] 11/30/2023 12:30 PM EDT Office Visit Orthopaedics [facility] [address] [place] [address] Ely Cabrales MD 132 [facility] [place] [address] 12/20/2023 9:45 AM EDT Office Visit Urology, [facility] 132 [facility] [place] [address] Man Gu MD [address] [facility] [place] [address] 12/26/2023 11:20 AM EST Office Visit General Internal Medicine [facility] [place] [address] Jennifer Sarkar MD 200 [facility] [place] [address] Scheduled Procedures Name Priority Associated Diagnoses Date/Ti [...] D LEVEL ONCE IN A LIFETIME-USE SMARTSET# 55913 Completed 08/17/2023, 12/01/2022, 09/09/2021, Additional history exists [...] this encounter Medical Devices Implanted Type Area Energy Auditor Device Identifier Shelf Expiration Date Model / Serial / Lot Lens Intraoc 23.0 - [id number] - [id number] Implanted:Qty: 1 on 12/21/2016 by Raj Bernard MD at OR [facility] Left: Eye BAUSCH & LOMB 06/20/2021 [id number] / [id number] / Lens Intraoc 22.0 - [id number] - [id number] Implanted:Qty: 1 on 01/06/2017 by Raj Bernard MD at OR [facility] Right: Eye BAUSCH & LOMB 08/20/2021 [id number] / [id number] / [id number] documented as of this encounter Advance Directives [...] Power of Attor bj? No Care Teams Electrical Panel Builder Relationship Specialty Start Date End Date Jennifer Sarkar MD 200 [place] [address] PCP - General Internal Medicine 10/06/20 documented as of this encounter
--- OUTSIDE RECORDS SUMMARY | 2023-10-28 23:15 | External Medical Summary | Summary of Care ---
Author Name Unknown Organization [facility] Address [address] [address] Phone [phone] Care Team Providers Care Tape Machine Tailer Name Role Phone Jennifer Sarkar MD Primary Care Provider [phone] Reason for Visit * Reason Onset Date Comments Med Request 08/17/2023 Encounter Details Date Type Department Care Team (Late st Contact Info) Description 08/17/2023 Telephone Cardiology, [facility] [address] [place] [address] Gala Martins CRNP [address] [place] [address] Med Request Allergies Active Allergy Reactions Criticality [...] Active Additional Information Patient taking differently:1,000 mg UigxF5Y PRN, ,may take 3rd dose in between [...] right-sided heart failure (HCC),Coronary artery disease involving [place] coronary artery of [place] heart without angina pectoris,Bilateral leg edema TAKE [...] failure 04/08/2020 Coronary artery disease invo lving [place] coronary artery of [place] heart without angina pectoris 11/21/2018 Abnormality of [...] and draped in usual sterile manner. 14 Thai flexible cystoscope inserted into urethra and guided [...] mRNA, LNP-s, No Pre serve, 2-Dose Series ([employer]) 05/14/2020,04/18/2020 H1N1 2009 Influenza, IM 04/22/2009 PPD [...] from hosp dc. [facility] Dc [email or web address] before RF lasix. * Addendum Note - [...] with delayed healing Coronary artery disease involving [place] coronary artery of [place] heart without angina pectoris Abnormality of gait [...] specialty refill line. Thank you, Paulina Sandhu Company Doctor II Centralized Clinical Pharmacy Services (CCPS) (formerly Telepharmacy) 08/17/2023 2:20 PM documented in this encounter Plan of Treatment Upcoming Encounters Date Type Department Care Team (Late st Contact Info) Description 08/30/2023 9:30 AM EDT Imaging Radiology, [address] [place] [address] 09/08/2023 2:30 PM EDT Office Visit Cardiology, [facility] 132 [facility] [place] [address] Job Mcgovern PA-C [address] [place] [address] 09/14/2023 10:30 AM EDT Nurse Only Rheumatology [address] [place] [address] Pf, Nurse Rheum [address] [place] [address] [place] [address] 10/20/2023 7:00 AM EDT Office Visit Nephrology, [facility] 200 [facility] [place] [address] Yumiko Philippe MD [address] [facility] [place] [address] 11/07/2023 2:30 PM EDT Imaging Radiology, [address] [place] [address] 11/30/2023 12:30 PM EDT Office Visit Orthopaedics [facility] 132 [facility] [place] [address] Ely Cabrales MD 132 [facility] [place] [address] 12/20/2023 9:45 AM EDT Office Visit Urology, [facility] 132 [facility] [place] [address] Man Gu MD [address] [place] [address] 12/26/2023 11:20 AM EST Office Visit General Internal Medicine [facility] [address] [address] Jennifer Sarkar MD 200 [facility] [place] [address] Scheduled Procedures Name Priority Associated Diagnoses Date/Ti [...] D LEVEL ONCE IN A LIFETIME-USE SMARTSET# 91367 Completed 08/17/2023, 12/01/2022, 09/09/2021, Additional history exists [...] this encounter Medical Devices Implanted Type Area Pattern Chart Writer Device Identifier Shelf Expiration Date Model / Serial / Lot Lens Intraoc 23.0 - [id number] - [id number] Implanted:Qty: 1 on 12/21/2016 by Raj Bernard MD at OR [facility] Left: Eye BAUSCH & LOMB 06/20/2021 [id number] / [id number] / Lens Intraoc 22.0 - [id number] - [id number] Implanted:Qty: 1 on 01/06/2017 by Raj Bernard MD at OR [facility] Right: Eye BAUSCH & LOMB 08/20/2021 [id number] / [id number] / [id number] documented as of this encounter Visit Diagnoses Diagnosis Chronic right-sided heart failure (HCC) Congestive heart failure, unspecified Coronary artery disease involving [place] coronary artery of [place] heart without angina pectoris Bilateral leg edema [...] Power of Attor bj? No Care Teams Tape Machine Tailer Relationship Specialty Start Date End Date Jennifer Sarkar MD [address] [facility] [place] [address] PCP - General Internal Medicine 10/06/20 documented as of this encounter
--- OUTSIDE RECORDS SUMMARY | 2023-10-28 23:15 | External Medical Summary | Summary of Care ---
Author Name Unknown Organization [facility] Address [address] [address] Phone [phone] Care Team Providers Care Loss Control Consultant Name Role Phone Jennifer Sarkar MD Primary Care Provider [phone] Reason for Visit * Reason Onset Date Comments Med Request 08/17/2023 Encounter Details Date Type Department Care Team (Late st Contact Info) Description 08/17/2023 Telephone Cardiology, [facility] [address] [place] [address] Gala Martins CRNP [address] [place] [address] Med Request Allergies Active Allergy Reactions Criticality [...] Active Additional Information Patient taking differently:1,000 mg NhepF1X PRN, ,may take 3rd dose in between [...] right-sided heart failure (HCC),Coronary artery disease involving pauma coronary artery of [place] heart without angina pectoris,Bilateral leg edema TAKE [...] failure 04/08/2020 Coronary artery disease invo lving [place] coronary artery of pauma heart without angina pectoris 11/21/2018 Abnormality of [...] and draped in usual sterile manner. 14 Spanish flexible cystoscope inserted into urethra and guided [...] mRNA, LNP-s, No Pre serve, 2-Dose Series ([employer]) 05/14/2020,04/18/2020 H1N1 2009 Influenza, IM 04/22/2009 PPD [...] from hosp dc. Need Dc summary from [facility] before RF lasix. * Addendum Note - [...] with delayed healing Coronary artery disease involving pauma coronary artery of pauma heart without angina pectoris Abnormality of gait [...] specialty refill line. Thank you, Paulina Sandhu Model Engine Mechanic II Centralized Clinical Pharmacy Services (CCPS) (formerly Telepharmacy) 08/17/2023 2:20 PM documented in this encounter Plan of Treatment Upcoming Encounters Date Type Department Care Team (Late st Contact Info) Description 08/30/2023 9:30 AM EDT Imaging Radiology, [address] [place] [address] 09/08/2023 2:30 PM EDT Office Visit Cardiology, [facility] 132 [facility] [place] [address] Job Mcgovern PA-C [address] [place] [address] 09/14/2023 10:30 AM EDT Nurse Only Rheumatology [address] [place] [address] Pf, Nurse Rheum [address] [place] [address] [place] [address] 10/20/2023 7:00 AM EDT Office Visit Nephrology, [facility] 200 [facility] [place] [address] Yumiko Philippe MD 200 [facility] [place] [address] 11/07/2023 2:30 PM EDT Imaging Radiology, [address] [place] [address] 11/30/2023 12:30 PM EDT Office Visit Orthopaedics [facility] 132 [facility] [place] [address] Ely Cabrales MD 132 [facility] [place] [address] 12/20/2023 9:45 AM EDT Office Visit Urology, [facility] 132 [facility] [place] [address] Man Gu MD [address] [place] [address] 12/26/2023 11:20 AM EST Office Visit General Internal Medicine [facility] [address] [address] [address] Jennifer Sarkar MD 200 [facility] [place] [address] Scheduled Procedures Name Priority Associated Diagnoses Date/Ti [...] D LEVEL ONCE IN A LIFETIME-USE SMARTSET# 65374 Completed 08/17/2023, 12/01/2022, 09/09/2021, Additional history exists [...] this encounter Medical Devices Implanted Type Area Human Resource Assistant Device Identifier Shelf Expiration Date Model / Serial / Lot Lens Intraoc 23.0 - [id number] - [id number] Implanted:Qty: 1 on 12/21/2016 by Raj Bernard MD at OR [facility] Left: Eye BAUSCH & LOMB 06/20/2021 [id number] / [id number] / Lens Intraoc 22.0 - [id number] - [id number] Implanted:Qty: 1 on 01/06/2017 by Raj Bernard MD at OR [facility] Right: Eye BAUSCH & LOMB 08/20/2021 [id number] / [id number] / [id number] documented as of this encounter Visit Diagnoses Diagnosis Chronic right-sided heart failure (HCC) Congestive heart failure, unspecified Coronary artery disease involving pauma coronary artery of pauma heart without angina pectoris Bilateral leg edema [...] Power of Attor bj? No Care Teams Loss Control Consultant Relationship Specialty Start Date End Date Jennifer Sarkar MD 200 [facility] [place] [address] PCP - General Internal Medicine 10/06/20 documented as of this encounter
--- OUTSIDE RECORDS SUMMARY | 2023-10-28 23:15 | External Medical Summary | Summary of Care ---
Author Name Unknown Organization [facility] Address [address] [facility] [place] [address] Phone [phone] Care Team Providers Care Interior Mechanic Name Role Phone Jennifer Sarkar MD Primary Care Provider [phone] Encounter Details Date Type Department Care Team (Late st Contact Info) Description 08/19/2023 Orders Only Urology, [facility] 132 [facility] [place] [address] Man Gu MD [address] [place] [address] Calculus of kidney*; BPH with obstruction/lower urinary tract symptoms Allergies [...] Active Additional Information Patient taking differently:1,000 mg BfkaY5C PRN, ,may take 3rd dose in between [...] right-sided heart failure (HCC),Coronary artery disease involving [place] coronary artery of [place] heart without angina pectoris,Bilateral leg edema TAKE [...] failure 04/08/2020 Coronary artery disease invo lving [place] coronary artery of mohegan heart without angina pectoris 11/21/2018 Abnormality of [...] draped in usual sterile manner. 14 British flexible cystoscope inserted into urethra and guided [...] mRNA, LNP-s, No Pre serve, 2-Dose Series (Secoo) 05/14/2020,04/18/2020 H1N1 2009 Influenza, IM 04/22/2009 PPD [...] Description 08/30/2023 9:30 AM EDT Imaging Radiology, [facility] [place] [address] [place] [address] 09/08/2023 2:30 PM EDT Office Visit Cardiology, [facility] [address] [place] [address] Job Bravo PA-C [address] [place] [address] 09/14/2023 10:30 AM EDT Nurse Only Rheumatology [facility] [place] [address] [place] [address] Pf, [place] [address] [place] [address] 10/20/2023 7:00 AM EDT Office Visit Nephrology, [place] [address] [place] [address] Yumiko Philippe MD [address] [facility] [place] [address] 11/07/2023 2:30 PM EDT Imaging Radiology, [facility] 2520 [facility] [place] [address] 11/30/2023 12:30 PM EDT Office Visit Orthopaedics [facility] 132 [place] [address] Ely Cabrales MD 132 [facility] [place] [address] 12/20/2023 9:45 AM EDT Office Visit Urology, [facility] 132 [facility] [place] [address] Man Gu MD [address] [place] [address] 12/26/2023 11:20 AM EST Office Visit General Internal Medicine [facility] [address] [facility] [place] [address] Jennifer Sarkar MD [address] [facility] [place], [place] [address] Scheduled Orders Name Type Priority Associated Diagnoses Orde r Schedule PSA WITH FREE PSA IF INDICATED Lab Routine BPH with obstruction/lower urinary tract symptoms Expected: 11/22/2023, Expires: 08/18/2024 Scheduled Procedures Name Priority Associated Diagnoses Date/Ti [...] D LEVEL ONCE IN A LIFETIME-USE SMARTSET# [id number] Completed 08/17/2023, 12/01/2022, 09/09/2021, Additional history exists [...] this encounter Medical Devices Implanted Type Area Legislative Assistant Device Identifier Shelf Expiration Date Model / Serial / Lot Lens Intraoc 23.0 - [id number] - [id number] Implanted:Qty: 1 on 12/21/2016 by Raj Bernard MD at OR [facility] Left: Eye BAUSCH & LOMB 06/20/2021 [id number] / [id number] / Lens Intraoc 22.0 - [id number] - [id number] Implanted:Qty: 1 on 01/06/2017 by Raj Bernard MD at OR [facility] Right: Eye BAUSCH & LOMB 08/20/2021 [id number] / [id number] / [id number] documented as of this encounter Visit Diagnoses Diagnosis Calculus of kidney- Primary BPH with obstruction/lower urinary tract symptoms Hypertrophy [...] Power of Attor bj? No Care Teams Interior Mechanic Relationship Specialty Start Date End Date Jennifer Sarkar MD [address] [facility] [place] [address] PCP - General Internal Medicine 10/06/20 documented as of this encounter
--- OUTSIDE RECORDS SUMMARY | 2023-10-28 23:15 | External Medical Summary | Summary of Care ---
Author Name Unknown Organization [facility] Address [address] [address] Phone [phone] Care Team Providers Care Plaster Machine Tender Name Role Phone Jennifer Sarkar MD Primary Care Provider [phone] Reason for Visit * Reason Onset Date Comments Med Request 08/17/2023 Encounter Details Date Type Department Care Team (Late st Contact Info) Description 08/17/2023 Telephone Cardiology, [facility] [address] [place] [address] Gala Martins CRNP [address] [place] [address] Med Request Allergies Active Allergy Reactions Criticality [...] Active Additional Information Patient taking differently:1,000 mg JztmH4B PRN, ,may take 3rd dose in between [...] right-sided heart failure (HCC),Coronary artery disease involving [place] coronary artery of [place] heart without angina pectoris,Bilateral leg edema TAKE [...] failure 04/08/2020 Coronary artery disease invo lving [place] coronary artery of [place] heart without angina pectoris 11/21/2018 Abnormality of [...] and draped in usual sterile manner. 14 Chinese flexible cystoscope inserted into urethra and guided [...] mRNA, LNP-s, No Pre serve, 2-Dose Series ([employer]) 05/14/2020,04/18/2020 H1N1 2009 Influenza, IM 04/22/2009 PPD [...] encounter Miscellaneous Notes * Addendum Note - Clarke Stern RN [...] with delayed healing Coronary artery disease involving [place] coronary artery of [place] heart without angina pectoris Abnormality of gait [...] specialty refill line. Thank you, Paulina Sandhu Commercial Construction Project Manager II Centralized Clinical Pharmacy Services (CCPS) (formerly Telepharmacy) 08/17/2023 2:20 PM documented in this encounter Plan of Treatment Upcoming Encounters Date Type Department Care Team (Late st Contact Info) Description 08/30/2023 9:30 AM EDT Imaging Radiology, [place] [address] [address] 09/08/2023 2:30 PM EDT Office Visit Cardiology, [facility] [address] [place] [address] Job Bravo PA-C [address] [place] [address] 09/14/2023 10:30 AM EDT Nurse Only Rheumatology [facility] [place] [address] Pf[facility] [address] [facility] [address] 10/20/2023 7:00 AM EDT Office Visit Nephrology, [facility] [address] Yumiko Philippe MD [address] [facility] [place] [address] 11/07/2023 2:30 PM EDT Imaging Radiology, [facility] [address] [facility] [place] [address] 11/30/2023 12:30 PM EDT Office Visit Orthopaedics [facility] 132 [facility] [place] [address] Ely Cabrales MD 132 [facility] [place] [address] 12/20/2023 9:45 AM EDT Office Visit Urology, [facility] 132 [facility] [place] [address] Man Gu MD [address] [place] [address] 12/26/2023 11:20 AM EST Office Visit General Internal Medicine [facility] 200 [place] [address] Jennifer Sarkar MD [facility] [place] [address] Scheduled Procedures Name Priority Associated Diagnoses Date/Ti [...] D LEVEL ONCE IN A LIFETIME-USE SMARTSET# [id number] Completed 08/17/2023, 12/01/2022, 09/09/2021, Additional history exists [...] this encounter Medical Devices Implanted Type Area Convict Guard Device Identifier Shelf Expiration Date Model / Serial / Lot Lens Intraoc 23.0 - [id number] - [id number] Implanted:Qty: 1 on 12/21/2016 by Raj Bernard MD at OR [facility] Left: Eye BAUSCH & LOMB 06/20/2021 [id number] / [id number] / Lens Intraoc 22.0 - [id number] - [id number] Implanted:Qty: 1 on 01/06/2017 by Raj Bernard MD at OR [facility] Right: Eye BAUSCH & LOMB 08/20/2021 [id number] / [id number] / [id number] documented as of this encounter Visit Diagnoses Diagnosis Chronic right-sided heart failure (HCC) Congestive heart failure, unspecified Coronary artery disease involving [place] coronary artery of [place] heart without angina pectoris Bilateral leg edema [...] Power of Attor bj? No Care Teams Plaster Machine Tender Relationship Specialty Start Date End Date Jennifer Sarkar MD [address] [place] [address] PCP - General Internal Medicine 10/06/20 documented as of this encounter
--- OUTSIDE RECORDS SUMMARY | 2023-10-28 23:15 | External Medical Summary | Summary of Care ---
Author Name Unknown Organization [facility] Address [address] [address] Phone [phone] Care Team Providers Care Transportation Analyst Name Role Phone Jennifer Sarkar MD Primary Care Provider [phone] Reason for Visit * Reason Onset Date Comments Med Request 08/17/2023 Encounter Details Date Type Department Care Team (Late st Contact Info) Description 08/17/2023 Telephone Cardiology, [facility] [address] [place] [address] Gala Martins CRNP [address] [place] [address] Med Request Allergies Active Allergy Reactions Criticality [...] Active Additional Information Patient taking differently:1,000 mg EwemN6C PRN, ,may take 3rd dose in between [...] lt at rest and with exertion per [employer]ix[employer] 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 Thank you, Paulina Sandhu Land Management Forester II Centralized Clinical Pharmacy Services (CCPS) (formerly Telepharmacy) 08/17/2023 2:20 PM documented in this encounter Plan of Treatment Upcoming Encounters Date Type Department Care Team (Late st Contact Info) Description 08/30/2023 9:30 AM EDT Imaging Radiology, [address] [place] [address] 09/14/2023 10:30 AM EDT Nurse Only Rheumatology [address] [place] [address] Pf, Nurse Rheum [address] [place] [address] [place] [address] 10/20/2023 7:00 AM EDT Office Visit Nephrology, [facility] 200 [facility] [place] [address] Yumiko Philippe MD 200 [facility] [place] [address] 11/07/2023 2:30 PM EDT Imaging Radiology, [address] [place] [address] 11/30/2023 12:30 PM EDT Office Visit Orthopaedics [facility] [address] [place] [address] Ely Cabrales MD [address] [place] [address] 12/20/2023 9:45 AM EDT Office Visit Urology, [facility] [address] [place] [address] Man Gu MD [address] [place] [address] 12/26/2023 11:20 AM EST Office Visit General Internal Medicine Zeke Dania [place] 200 [facility] [place] [address] Jennifer Sarkar MD 200 [facility] [place] [address] Scheduled Procedures Name Priority Associated Diagnoses Date/Ti [...] D LEVEL ONCE IN A LIFETIME-USE SMARTSET# [id number] Completed 08/17/2023, 12/01/2022, 09/09/2021, Additional history exists [...] this encounter Medical Devices Implanted Type Area Mems Engineer Device Identifier Shelf Expiration Date Model / Serial / Lot Lens Intraoc 23.0 - [id number] - [id number] Implanted:Qty: 1 on 12/21/2016 by Raj Bernard MD at OR [facility] Left: Eye BAUSCH & LOMB 06/20/2021 [id number] / [id number] / Lens Intraoc 22.0 - [id number] - [id number] Implanted:Qty: 1 on 01/06/2017 by Raj Bernard MD at OR [facility] Right: Eye BAUSCH & LOMB 08/20/2021 [id number] / [id number] / [id number] documented as of this encounter Advance Directives [...] Power of Attor bj? No Care Teams Transportation Analyst Relationship Specialty Start Date End Date Jennifer Sarkar MD 200 [place] [address] PCP - General Internal Medicine 10/06/20 documented as of this encounter
--- OUTSIDE RECORDS SUMMARY | 2023-10-28 23:15 | External Medical Summary | Summary of Care ---
Author Name Unknown Organization [facility] Address [address] [address] Phone [phone] Care Team Providers Care Mesh Man Name Role Phone Jennifer Sarkar MD Primary Care Provider [phone] Reason for Visit * Reason Onset Date Comments Med Request 08/17/2023 Encounter Details Date Type Department Care Team (Late st Contact Info) Description 08/17/2023 Telephone Cardiology, [facility] [address] [place] [address] Gala Martins CRNP [address] [place] [address] Med Request Allergies Active Allergy Reactions Criticality [...] Active Additional Information Patient taking differently:1,000 mg UdraJ9Q PRN, ,may take 3rd dose in between [...] right-sided heart failure (HCC),Coronary artery disease involving [place] coronary artery of [place] heart without angina pectoris,Bilateral leg edema TAKE [...] failure 04/08/2020 Coronary artery disease invo lving [place] coronary artery of [place] heart without angina pectoris 11/21/2018 Abnormality of [...] and draped in usual sterile manner. 14 Romanian flexible cystoscope inserted into urethra and guided [...] mRNA, LNP-s, No Pre serve, 2-Dose Series ([employer] 05/14/2020,04/18/2020 H1N1 2009 Influenza, IM 04/22/2009 [...] specialty refill line. Thank you, Paulina Sandhu Weighmaster Lead II Centralized Clinical Pharmacy Services (CCPS) (formerly Telepharmacy) 08/17/2023 2:20 PM documented in this encounter Plan of Treatment Upcoming Encounters Date Type Department Care Team (Late st Contact Info) Description 08/30/2023 9:30 AM EDT Imaging Radiology, [address] [place] [address] 09/14/2023 10:30 AM EDT Nurse Only Rheumatology [address] [place] [address] Pf, Nurse Rheum [address] [place] [address] [place] [address] 10/20/2023 7:00 AM EDT Office Visit Nephrology, [facility] 200 [facility] [place] [address] Yumiko Philippe MD [address] [facility] [place] [address] 11/07/2023 2:30 PM EDT Imaging Radiology, [address] [place] [address] 11/30/2023 12:30 PM EDT Office Visit Orthopaedics [facility] [address] [place] [address] Ely Cabrales MD [address] [place] [address] 12/20/2023 9:45 AM EDT Office Visit Urology, [facility] [address] [place] [address] Man Gu MD [address] [place] [address] 12/26/2023 11:20 AM EST Office Visit General Internal Medicine Zeke Dania [place] [address] [facility] [place] [address] Jennifer Sarkar MD [address] [facility] [place] [address] Scheduled Procedures Name Priority Associated Diagnoses Date/Ti [...] D LEVEL ONCE IN A LIFETIME-USE SMARTSET# 42297 Completed 08/17/2023, 12/01/2022, 09/09/2021, Additional history exists [...] this encounter Medical Devices Implanted Type Area Epic Specialist Device Identifier Shelf Expiration Date Model / Serial / Lot Lens Intraoc 23.0 - [id number] - [id number] Implanted:Qty: 1 on 12/21/2016 by Raj Bernard MD at OR [facility] Left: Eye BAUSCH & LOMB 06/20/2021 [id number] / [id number] / Lens Intraoc 22.0 - [id number] - [id number] Implanted:Qty: 1 on 01/06/2017 by Raj Bernard MD at OR [facility] Right: Eye BAUSCH & LOMB 08/20/2021 [id number] / [id number] / [id number] documented as of this encounter Advance Directives [...] Power of Attor bj? No Care Teams Mesh Man Relationship Specialty Start Date End Date Jennifer Sarkar MD 200 [place] [address] PCP - General Internal Medicine 10/06/20 documented as of this encounter
--- OUTSIDE RECORDS SUMMARY | 2023-10-28 23:15 | External Medical Summary | Summary of Care ---
Author Name Unknown Organization [facility] Address [address] [address] Phone [phone] Care Team Providers Care Press Operator Meat Name Role Phone Jennifer Sarkar MD Primary Care Provider [phone] Reason for Visit * Reason Onset Date Comments Med Request 08/17/2023 Encounter Details Date Type Department Care Team (Late st Contact Info) Description 08/17/2023 Telephone Cardiology, [facility] [address] [place] [address] Gala Martins CRNP [address] [place] [address] Med Request Allergies Active Allergy Reactions Criticality [...] Active Additional Information Patient taking differently:1,000 mg QrmcR5A PRN, ,may take 3rd dose in between [...] right-sided heart failure (HCC),Coronary artery disease involving [place] coronary artery of [place] heart without angina pectoris,Bilateral leg edema TAKE [...] failure 04/08/2020 Coronary artery disease invo lving [place] coronary artery of [place] heart without angina pectoris 11/21/2018 Abnormality of [...] and draped in usual sterile manner. 14 Albanian flexible cystoscope inserted into urethra and guided [...] mRNA, LNP-s, No Pre serve, 2-Dose Series ([employer]) 05/14/2020,04/18/2020 H1N1 2009 Influenza, IM 04/22/2009 PPD [...] encounter Miscellaneous Notes * Telephone Encounter - Shanta Cote OSA [...] from hosp dc. Need Dc summary from [facility] before RF lasix. * Addendum Note - [...] with delayed healing Coronary artery disease involving [place] coronary artery of [place] heart without angina pectoris Abnormality of gait [...] with Dr. Ramirez, patient has seen Job Lawrence. I called patient, and LM for himletting [...] specialty refill line. Thank you, Paulina Sandhu Building Coordinator II Centralized Clinical Pharmacy Services (CCPS) (formerly Telepharmacy) 08/17/2023 2:20 PM documented in this encounter Plan of Treatment Upcoming Encounters Date Type Department Care Team (Late st Contact Info) Description 08/30/2023 9:30 AM EDT Imaging Radiology, [address] [place] [address] 09/08/2023 2:30 PM EDT Office Visit Cardiology, [facility] [address] [place] [address] Job Bravo PA-C 132 [facility] [place] [address] 09/14/2023 10:30 AM EDT Nurse Only Rheumatology [address] [place] [address] Pf, Nurse Rheum [address] [place] [address] [place] [address] 10/20/2023 7:00 AM EDT Office Visit Nephrology, [facility] 200 [facility] [place] [address] PhilippeYumiko childers MD 200 [facility] [place] [address] 11/07/2023 2:30 PM EDT Imaging Radiology, [address] [place] [address] 11/30/2023 12:30 PM EDT Office Visit Orthopaedics [facility] [address] [place] [address] Ely Cabrales MD [address] [place] [address] 12/20/2023 9:45 AM EDT Office Visit Urology, [facility] [address] [place] [address] Man Gu MD [address] [place] [address] 12/26/2023 11:20 AM EST Office Visit General Internal Medicine [place] 200 [facility] [place] [address] Jennifer Sarkar MD 200 [facility] [place] [address] Scheduled Procedures Name Priority Associated Diagnoses Date/Ti me COLONOSCOPY FLEXIBLE PROXIMAL DIAGNOSTIC Recall History of colon polyps Health Maintenance Due Date Last Done Comments DXA Scan 08/05/2021 08/06/2019, 040 04/2017, 05/13/2015, Additional history exists Colonoscopy 06/03/2022 [...] D LEVEL ONCE IN A LIFETIME-USE SMARTSET# [id number] Completed 08/17/2023, 12/01/2022, 09/09/2021, Additional history exists [...] encounter Medical Devices Implanted Type Area Senior Interactive Producer Device Identifier Shelf Expiration Date Model / Serial / Lot Lens Intraoc 23.0 - [id number] - [id number] Implanted:Qty: 1 on 12/21/2016 by Raj Bernard MD at OR [facility] Left: Eye BAUSCH & LOMB 06/20/2021 [id number] / [id number] / Lens Intraoc 22.0 - [id number] - [id number] Implanted:Qty: 1 on 01/06/2017 by Raj Bernard MD at OR [facility] Right: Eye BAUSCH & LOMB 08/20/2021 [id number] / [id number] / [id number] documented as of this encounter Visit Diagnoses Diagnosis Chronic right-sided heart failure (HCC) Congestive heart failure, unspecified Coronary artery disease involving [place] coronary artery of [place] heart without angina pectoris Bilateral leg edema [...] Power of Attor bj? No Care Teams Press Operator Meat Relationship Specialty Start Date End Date Jennifer Sarkar MD 200 [facility] [place] [address] PCP - General Internal Medicine 10/06/20 documented as of this encounter
--- OUTSIDE RECORDS SUMMARY | 2023-10-28 23:15 | External Medical Summary | Summary of Care ---
Author Name Unknown Organization [facility] Address [address] [address] Phone [phone] Care Team Providers Care Artificial Cherry Maker Name Role Phone Jennifer Sarkar MD Primary Care Provider [phone] Reason for Visit * Reason Onset Date Comments Med Request 08/17/2023 Encounter Details Date Type Department Care Team (Late st Contact Info) Description 08/17/2023 Telephone Cardiology, [facility] [address] [place] [address] Gala Martins CRNP [address] [place] [address] Med Request Allergies Active Allergy Reactions Criticality [...] Active Additional Information Patient taking differently:1,000 mg RiceY3G PRN, ,may take 3rd dose in between [...] right-sided heart failure (HCC),Coronary artery disease involving [place] coronary artery of [place] heart without angina pectoris,Bilateral leg edema TAKE [...] failure 04/08/2020 Coronary artery disease invo lving [place] coronary artery of [place] heart without angina pectoris 11/21/2018 Abnormality of [...] mRNA, LNP-s, No Pre serve, 2-Dose Series ([employer]) 05/14/2020,04/18/2020 H1N1 2009 Influenza, IM 04/22/2009 PPD [...] specialty refill line. Thank you, Paulina Sandhu Biofuels Plant Construction Worker II Centralized Clinical Pharmacy Services (CCPS) (formerly Telepharmacy) 08/17/2023 2:20 PM documented in this encounter Plan of Treatment Upcoming Encounters Date Type Department Care Team (Late st Contact Info) Description 08/30/2023 9:30 AM EDT Imaging Radiology, [address] [place] [address] 09/14/2023 10:30 AM EDT Nurse Only Rheumatology [address] [place] [address] Pf, Nurse Rheum [address] [place] [address] [place] [address] 10/20/2023 7:00 AM EDT Office Visit Nephrology, [facility] 200 [facility] [place] [address] Yumiko Philippe MD 200 [facility] [place] [address] 11/07/2023 2:30 PM EDT Imaging Radiology, [address] [place] [address] 11/30/2023 12:30 PM EDT Office Visit Orthopaedics [facility] [address] [place] [address] Ely Cabrales MD [address] [place] [address] 12/20/2023 9:45 AM EDT Office Visit Urology, [facility] [address] [place] [address] Man Gu MD [address] [place] [address] 12/26/2023 11:20 AM EST Office Visit General Internal Medicine Zeke Dania [place] 200 [facility] [place] [address] Jennifer Sarkar MD 200 [facility] [place] [address] Scheduled Procedures Name Priority Associated Diagnoses Date/Ti [...] D LEVEL ONCE IN A LIFETIME-USE SMARTSET# [id number] Completed 08/17/2023, 12/01/2022, 09/09/2021, Additional history exists [...] this encounter Medical Devices Implanted Type Area Threat Analyst Device Identifier Shelf Expiration Date Model / Serial / Lot Lens Intraoc 23.0 - [id number] - [id number] Implanted:Qty: 1 on 12/21/2016 by Raj Bernard MD at OR [facility] Left: Eye BAUSCH & LOMB 06/20/2021 [id number] / [id number] / Lens Intraoc 22.0 - [id number] - [id number] Implanted:Qty: 1 on 01/06/2017 by Raj Bernard MD at OR [facility] Right: Eye BAUSCH & LOMB 08/20/2021 [id number] / [id number] / [id number] documented as of this encounter Advance Directives [...] Power of Attor bj? No Care Teams Artificial Cherry Maker Relationship Specialty Start Date End Date Jennifer Sarkar MD 200 [place] [address] PCP - General Internal Medicine 10/06/20 documented as of this encounter
--- OUTSIDE RECORDS SUMMARY | 2023-10-28 23:16 | External Medical Summary ---
Author Name Unknown Address Unknown Organization K[facility] [place] [address] Laboratory Report Ordering Provider Test Date Status JOSHUA GEE 08/17/2023 08:38:17 Final Observation Date Value Abnormality Reference (Units ) Status Calcium 08/17/2023 08:38:17 10.1 8.4-10.2 ( mg/dL) Final Performing Location [facility] [address] [place] [address]
--- OUTSIDE RECORDS SUMMARY | 2023-10-28 23:16 | External Medical Summary | Summary of Care ---
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 Chronic pain of both shoulders Chase Paz MD [address] [place] [address] Referral ID Status Reason Start Date Expiration Date Visits Requested Visits Authorized [id number] Pending Review Specialty Services Required 04/15/2023 [id number] Encounter Details Date Type Department Care Team (Late st Contact Info) Description 08/17/2023 8:00 AM EDT Office Visit Orthopaedics [facility] [address] [place] [address] Ely Cabrales MD [address] [place] [address] Nontraumatic complete tear of right rotator cuff*; Nontraumatic complete tear of left rotator cuff; Chronic pain of both shoulders [M25.511, G89.29, M25.512] Allergies Active Allergy Reactions Criticality Noted Date Comments Food (See Comments) 03/21/2018 Other reaction(s): WAS TOLD NOT TO TAKE grapefruit Tramadol Other (Please comment) High 10/06/2020 Hallucinations documented as of this encounter (statuses as of 08/17/2023) Medications Medication Sig Dispensed Refills Start Date [...] Active Additional Information Patient taking differently:1,000 mg [id number] PRN, ,may take 3rd dose in between [...] right-sided heart failure (HCC),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 4 Active Hospital, Clinic, or Other Facility Administered Medication Ordered Dose Route Frequency Start Date End Date Status lidocaine 1% 1 mL - triamcinolone acetonide 40 mg/mL 1 mL inj 2 mLIndications:Nontraumatic complete tear of right rotator cuff,Nontraumatic complete tear of left rotator cuff,Chronic pain of both shoulders 2 mL IJ ONCE 08/17/2023 08/17/2023 Ended lidocaine 1% 1 mL - triamcinolone acetonide 40 mg/mL 1 mL inj 2 mLIndications:Nontraumatic complete tear of right rotator cuff,Nontraumatic complete tear of left rotator cuff,Chronic pain of both shoulders 2 mL IJ ONCE 08/17/2023 08/17/2023 Ended documented as of this encounter (statuses as of 08/17/2023) Active Problems Problem Noted Date Diagnosed Date Hypercalcemia 12/03/2022 Supplemental oxygen dependent 05/06/2022 Nasal septal perforation 05/06/2022 Chronic respiratory failure with hypoxia 022 Granulomatous lung disease 09/18/2021 Chronic rhinitis 06/10/2021 Schatzki's ring of distal esophagus 06/10/2021 Chronic right-sided heart failure 04/08/2020 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 11/21/2018 Abnormality of [...] as of this encounter (statuses as of 08/17/2023) Resolved Problems Problem Noted Date Diagnosed Date [...] as of this encounter (statuses as of 08/17/2023) Immunizations Name Administration Dates Next Due COVID-19 mRNA, LNP-s, No Pre serve, 2-Dose Series (Mirantis) 05/14/2020,04/18/2020 H1N1 2009 Influenza, IM 04/22/2009 PPD [...] as of this encounter Progress Notes * Ely Cabrales MD - 08/17/2023 8:35 AM EDT Chief Complaint: NEW PATIENT (Bilateral shoulder) History of Present Illness: Nursing Notes: Mihaela Meyers, MED ASSIST 08/17/23 0809 Signed Patient presents today for bilateral shoulder injections. Previous 04/15/[address] Paz. Fabian Starks is a 82 year old right hand dominant male who presents for consultation to [facility] for bilateral shoulder injury/pain. Fabian Starks is here with his/her son Fabian Starks Has a well documented history of left rotator cuff arthropathy right shoulder rotatorcuff tear and glenohumeral joint arthritis. Has been followed by Joel Cristina PA-C and Dr. Paz previously. Has done well with subacromial injections. Was advised to follow up with primary care Sports Medicine to continue injections. Feels that the previous injections performed in March lastedhim 3-4 months. No numbness or tingling. Symptoms worse with overhead movement. Has done a home exercise program. Review of systems: All others negative except those noted above in HPI. Review of patient's allergies indicates: Allergen Reactions [...] split or chew the tablet--dec 12/21/2021(nml EGD 08/21/21)--[facility] timing 05/18/2022 (Patient taking differently: Take 1 Tablet by mouth in the morning.) 90 Tablet 3 Montelukast Sodium 10 MG Oral Tablet (Singulair) Take 1 Tablet by mouth in the morning. St 09/01/2022. 90 Tablet 3 Furosemide 20 MG Oral Tablet (Lasix) TAKE BY MOUTH 2 TABLETS IN THE MORNING. TAKE ADDITIONAL ONE FOR THREE DAYS AND DIRECTED. 270 Tablet 3 Benzonatate 100 MG Oral Capsule Take [...] Suspension (Mom) Take 30 mL by mouth. No current facility-administered medications for this visit. 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 11/21/2018 Dyslipidemia, goal [...] by ANSHU FOFANA at [facility] COLONOSCOPY W/ LESION REMOVAL, SNARE 02/01/2007 repeat in 5-10 yrs COLONOSCOPY, DIAGNOSTIC (RECTUM) 06/03/2017 adenomatous polyp, repeat 5 yrs/[facility] CYSTOSCOPY 03/30/2005 stent removal EGD, FLEXIBLE, DIAGNOSTIC 11/24/2012 UPPER GI ENDOSCOPY DIAGNOSTIC performed by Nakia Benton DO at [facility] EGD, FLEXIBLE, DIAGNOSTIC 07/15/2015 Schatzki ring, sm HH/[facility] EGD, FLEXIBLE, DIAGNOSTIC 03/21/2018 erosive gastropathy, tortous esophagus, Schatzki ring/[facility] EGD, FLEXIBLE, DIAGNOSTIC 08/21/2021 sm hiatal hernia / [facility] FRAGMENT KIDNEY STONE BY SHOCK WAVE 03/26/2005 ESWL (Extracorporeal Shock Wave Lithotripsy) INFORMATION bilateral hernia repair REMOVAL OF TONSILS, UNDER AGE 13 REMOVE CATARACT, INSERT LENS PROSTH Left 12/21/2016 left EXTRACAPSULAR CATARACT REMOVAL WITH INTRAOCULAR LENS performed by Raj Bernard MD at OR [facility] REMOVE CATARACT, INSERT LENS PROSTH Right 01/06/2017 right EXTRACAPSULAR CATARACT REMOVAL WITH INTRAOCULAR LENS performed by Raj Bernard MD at OR [facility] Social History Socioeconomic History Marital status: Spouse name: Not on file Number of children: 2 Years of education: Not on file Highest education level: Not on file Occupational History Occupation: [employer] Employer: [employer] Comment: 30 yrs Tobacco Use Smoking status: Former Types: Pipe, Cigars Quit date: 2 Years since quittin.5 Smokeless tobacco: Never Tobacco comments: Smoked a [...] Cancer Other nephew 26 lung cancer Family History; none relevant to acute HPI 08/17/2023 Objective: Physical Exam There were no vitals filed for this visit. Estimated body mass index is 26.79 kg/m as calculated from the following: Height as of 06/22/23: 1.651 m (5' 5"). Weight as of 08/11/23: 73 kg (161 lb). General: generally well-nourished and in no acute distress HEENT: normocephalic, atraumatic, sclera anicteric Psych: mood and affect normal , cooperative Card: Peripheral pulses: normal in affected extremity (s) Resp: equal chest rise, non-tachypneic, On oxygen Skin: no rash, normal Neuro: Coordination: normal; Sensation: normal on affected extremity (s) slight tremor MSK: Shoulder exam, bilateral Inspection: No visible deformity, redness, swelling or bruising Palpation: No tenderness to palpation Shoulder glenohumeral ACTIVE range of motion: Abduction to 90 on the right, 20 on the left External rotation to 30 bilaterally Radiology (I have personally reviewed the following films): Narrative & Impression EXAM XR SHOULDER, 2 OR MORE VIEWS - 04/15/2023 2:22 pm HISTORY right shoulder pain TECHNIQUE XR SHOULDER, 2 OR MORE VIEWS RT COMPARISON None 07/14/2016 CT. FINDINGS No acute fracture or dislocation. Moderate glenohumeral osteoarthritis. Likely rotator cuff calcific tendinitis. Os acromiale is noted. Right lung calcified granuloma. IMPRESSION IMPRESSION No acute fracture or dislocation. Moderate glenohumeral osteoarthritis. Os acromiale. Assessment and Plan: ICD-10-CM 1. Nontraumatic complete tear of right rotator cuff M75.121 2. Nontraumatic complete tear of left rotator cuff M75.122 3. Chronic pain of both shoulders [M25.511, G89.29, M25.512] M25.511 G89.29 M25.512 Mr. Thompson is a pleasant 82-year-old male who is seen today for bilateral shoulder pain due to rotator cuff arthropathy in the left shoulder my arthritis and cuff tear in the right shoulder. Has done well with subacromial injections in the past. Not a surgical candidate. He would like to continue with injections. We reviewed other various treatment options including physical therapy and various types of injections. Elected to proceed with corticosteroid injections in the subacromial space as this is what has provided him benefit in the past. See procedure note below. Procedure note: Subacromial injection on Bilateral: Time out: Prior to injection, a time out was called to confirm the administration of appropriate medicine, patient name, procedure and confirm to the best of our ability and knowledge the presence of any necessary risks and benefits. Patient verbalizes understanding. Posteriolateral approach used. Sterile techinique applied. Skin sterilized with chlorhexidine and cleaned with alcohol swab. Subacromial bursa injected using 1.5 inch, 25 gauge needle. Injected with 1 ml 1% Lidocaine + 1 ml of Triamcinolone acetonide 40 mg/mL. Patient tolerated procedure with no sig nificant bleeding or adverse reaction. Patient instructed to call or return to clinic for fever or warmth and redness at injection site for potential infection. Patient also advised as to potential for steroid flare reaction including increased pain and redness at injection site which should be treated with ice and resolve within 24 hours. Ely Cabrales MD The above assessment and plan were discussed at length. All questions were answered, and the patient expressed understanding. Ely Cabrales MD Primary Care [facility] [place] [address] documented in this encounter Nursing Notes * Mihaela Meyers MED ASSIST - 08/17/2023 8:08 AM EDT Patient presents today for bilateral shoulder injections. Previous 04/15/[address] Paz. documented in this encounter Plan of Treatment Upcoming Encounters Date Type Department Care Team (Late st Contact Info) Description 08/30/2023 9:30 AM EDT Imaging Radiology, [address] [place] [address] 09/14/2023 10:30 AM EDT Nurse Only Rheumatology [address] [place] [address] Pf, Nurse Rheum [address] [place] [address] [place] [address] 10/20/2023 7:00 AM EDT Office Visit Nephrology, [facility] [address] [place] [address] Yumiko Philippe MD [address] [place] [address] 11/07/2023 2:30 PM EDT Imaging Radiology, [address] [place] [address] 11/30/2023 12:30 PM EDT Office Visit [facility] [address] [facility] [place] [address] Ely Cabrales MD [address] [facility] [place] [address] 12/20/2023 9:45 AM EDT Office Visit Urology, [facility] [address] [place] [address] Man Gu MD [address] [address] [place] [address] 12/26/2023 11:20 AM EST Office Visit General Internal Medicine [facility] [address] [place] [address] Jennifer Sarkar MD [address] [facility] [place] [address] Scheduled Procedures Name Priority Associated Diagnoses Date/Ti [...] D LEVEL ONCE IN A LIFETIME-USE SMARTSET# [id number] Completed 12/01/2022, 09/09/2021, 04/08/2021, Additional history exists [...] this encounter Medical Devices Implanted Type Area Dermatologist Managing Partner Device Identifier Shelf Expiration Date Model / Serial / Lot Lens Intraoc 23.0 - [id number] - [id number] Implanted:Qty: 1 on 12/21/2016 by Raj Bernard MD at [facility] Left: Eye [employer] 06/20/2021 [id number] / [id number] / Lens Intraoc 22.0 - [id number] - [id number] Implanted:Qty: 1 on 01/06/2017 by Raj Bernard MD at [facility] Right: Eye [employer] 08/20/2021 [id number] / [id number] / [id number] documented as of this encounter Visit Diagnoses Diagnosis 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 Nontraumatic complete tear of left rotator cuff Chronic pain of both shoulders [M25.511, G89.29, M25.512] Pain in joint, shoulder region documented in this encounter Administered Medications Inactive Administered Medications - up to 3 most recent administrations Medication Order MAR Action Action Date Dose Rate Site lidocaine 1% 1 mL - triamcinolone acetonide 40 mg/mL 1 mL inj 2 mL 2 mL, Injection, ONCE, On Tue08/17/23 at 0915, For 1 dose, Lidocaine 1% 1mL Triamcinolone Acetonide 40 mg/mL 1 mL (Final concentration = 20 mg/mL) REFRIGERATE and SHAKE WELL Given 08/17/2023 8:45 AM EDT 2 mL Shoulder Right lidocaine 1% 1 mL - triamcinolone acetonide 40 mg/mL 1 mL inj 2 mL 2 mL, Injection, ONCE, On Tue08/17/23 at 0915, For 1 dose, Lidocaine 1% 1mL Triamcinolone Acetonide 40 mg/mL 1 mL (Final concentration = 20 mg/mL) REFRIGERATE and SHAKE WELL Given 08/17/2023 8:45 AM EDT 2 mL Shoulder Left documented in this encounter Advance Directives * [...] Power of Attor bj? No Care Teams Line Maintenance Supervisor Relationship Specialty Start Date End Date Jennifer Sarkar MD [address] [facility] [place] [address] PCP - General Internal Medicine 10/06/20 documented as of this encounter
--- OUTSIDE RECORDS SUMMARY | 2023-10-28 23:16 | External Medical Summary | Summary of Care ---
Author Name Unknown Organization [facility] Address [address] [facility] [address] Phone [phone] Care Team Providers Care Director Of Provider Relations Name Role Phone Jennifer Sarkar MD Primary Care Provider [phone] Reason for Visit * Reason Comments Rheum Follow Up Follow up - [facility] * Evaluate & Treat - Unlimited Visits (Within 30 days (routine)) - Closed Specialty Diagnoses / Procedures Referred By Derek t Referred To Contact Rheumatology Diagnoses Acute idiopathic gout of right hand Jennifer Sarkar MD [address] [place] [address] Referral ID Status Reason Start Date Expiration Date V isits Requested Visits Authorized [id number] Closed Specialty Services Required 09/01/[phone] Encounter Details Date Type Department Care Team (Late st Contact Info) Description 08/11/2023 8:00 AM EDT Office Visit Rheumatology [address] [place] [address] Meryl Santiago CRNP [address] [place] [address] Senile osteoporosis* Allergies Active Allergy Reactions Criticality Noted Date Comments Food (See Comments) 03/21/2018 Other reaction(s): WAS TOLD NOT TO TAKE grapefruit Tramadol Other (Please comment) High 10/06/2020 Hallucinations documented as of this encounter (statuses as of 08/18/2023) Medications Medication Sig Dispensed Refills Start Date [...] Active Additional Information Patient taking differently:1,000 mg [id number] PRN, ,may take 3rd dose in between [...] right-sided heart failure (HCC),Coronary artery disease involving [place] coronary artery of [place] heart without angina pectoris,Bilateral leg edema TAKE [...] as of this encounter (statuses as of 08/18/2023) Active Problems Problem Noted Date Diagnosed Date Hypercalcemia 12/03/2022 Supplemental oxygen dependent 05/06/2022 Nasal septal perforation 05/06/2022 Chronic respiratory failure with hypoxia 022 Granulomatous lung disease 09/18/2021 Chronic rhinitis 06/10/2021 Schatzki's ring of distal esophagus 06/10/2021 Chronic right-sided heart failure 04/08/2020 Coronary artery disease invo lving [place] coronary artery of [place] heart without angina pectoris 11/21/2018 Abnormality of [...] as of this encounter (statuses as of 08/18/2023) Resolved Problems Problem Noted Date Diagnosed Date [...] and draped in usual sterile manner. 14 [place] flexible cystoscope inserted into urethra and guided [...] as of this encounter (statuses as of 08/18/2023) Immunizations Name Administration Dates Next Due COVID-19 mRNA, LNP-s, No Pre serve, 2-Dose Series ([employer]) 05/14/2020,04/18/2020 H1N1 2009 Influenza, IM 04/22/2009 PPD [...] Sign Reading Time Taken Comments Blood Pressure - - Pulse - - Temperature 36.4 C (97.5 F) 08/11/2023 7:58 AM ED T Respiratory Rate - - Oxygen Saturation - - Inhaled Oxygen Concentration - - Weight 73 kg (161 lb) 08/11/2023 7:58 AM EDT Height - - Body Mass Index 26.79 06/22/2023 5:24 PM EDT documented in this encounter Patient Instructions * Patient Instructions* Meryl Santiago CRNP - 08/11/2023 8:28 AM EDT Labs: Calcium, Vit D, Creatine Schedule DEXA scan Start taking Vit D 3- 1,000 IU daily Medication Information: Prolia The following information was verbally provided to the patient and afterwards, a copy of the ACR medication guide was provided to supplement with more extensive information: Denosumab (Prolia) is a biologic medication used to prevent fragile bones, also known as osteoporosis, and bone fractures. It is available as an injection given twice a year along with vitamin D and calcium supplementation. The most common side effects observed are back pain, pain in hands and feet, and cystitis. More serious side effects include the increased risk of infections, osteonecrosis of the jaw, hypocalcemia, atypical femoral fractures, multiple vertebral fractures, and elevated cholesterol (rare) severe allergic reactions. Please make your physician aware if you are or planning to become , have kidney/liver damage, have current infection, any new cancer or malignancy, planning to get any vaccinations, or if you have new or changed medications on your medication list as these factors may impact your care plan. This medication may take up to 6-12 weeks to see an effect on your joints. For your safety, we will monitor you routinely through a series of blood work, dental exams, etc. For further inquiries, please refer to the medication information provided to you as well as your rheumatology care team. Vitamin D Level < 20 50,000 units twice weekly x 30 doses Level 20-30 50,000 units once weekly x 15 doses Level 30-35 800- 1,000 units QD (OTC) Level normal Level > 60 Provider referral Calcium (Post-Menopausal) Women 1,200 mg QD (600 mg BID) Men 1,000 mg PO (500 mg BID) Types of Calcium Calcium citrate Can be taken with or without food Calcium carbonate Absorbed better with meals Dietary Calcium Milk, cheese, yogurt, as well as green vegetables, such as kale and broccoli, oranges, beans, almonds documented in this encounter Progress Notes * Meryl Santiago CRNP - 08/11/2023 8:05 AM EDT [facility] ([facility]): follow up Supervised by: Dr. Cecilio Harmon Previous Visit Plan from 08/05/2021 reviewed. Prior medication: Fosamax 10 years Reason for visit: Patient seen today for further follow-up/evaluation of osteoporosis. He has accompanied by a son today. He received Reclast in 2018 in 2019. He was supposed to get a 3rd dose and had a fall and was unable to have it done. Last dose Reclast was July,. He had a fall last summerand fractured his lumbar spine. Unfortunately unable to review the imaging at this time. He has notcurrently taking vitamin-D or calcium supplementation. He was taken off calcium after having elevated level of 10.6. He uses a walker daily and is on chronic O2. He is prone to falls. His son lives 2doors down as able to check in on him. He is past due on his DEXA scan. Bone Health Summary: Risks: Falls since last [facility] visit: yes Personal History of Fx since last [facility] Visit: yes Prevention: Exercise : 3 or more times weekly: No Nutrition: eats calcium rich foods, Yes Gait: unsteady with walking, Yes, use of cane/walker, Yes, Walker Calcium and Vitamin D supplements in adequate doses: No Current Smoker: No Chronic Glucocorticoid use: No Rheumatoid Arthritis: No Alcohol 3 or more per day: No ROS: . Constitutional: normal . Head normal . Eyes: normal . Ears, nose, throat, mouth: normal . Cardiovascular: normal . Respiratory: normal . Gastrointestinal: normal . Musculoskeletal: joint pain . Neurologic: normal . Skin: normal . Psychiatric: normal . Endocrine: normal . Hematologic/lymphatic: normal . Allergic/immunologic: normal . Genitourinary: normal All other ROS reviewed and negative. Pertinent positives listed in HPI. Medications: Current Outpatient Medications Medication Sig Dispense Refill [...] Suspension (Mom) Take 30 mL by mouth. Zoledronic Acid 5 MG/100ML Intravenous Solution Administer 5 mg intravenously once. Yearly administration No current facility-administered medications for this visit. Social History: Social History Tobacco Use Smoking status: Former Types: Pipe, Cigars Quit date: 1961 Years since quittin.5 Smokeless tobacco: Never Tobacco comments: Smoked a occasional pipe or cigar socially when was younger. Vaping Use Vaping status: Never Used Substance Use Topics Alcohol use: Yes Comment: rarely Drug use: No PHYSICAL EXAM: General appearance: NAD Eyes: Normal Heme/Lymph: goiter: No Musculoskeletal: Kyphosis Yes/scoliosis, slow gait with walker Heart: normal Lungs: normal Neuro: weak in upper right extremity, 05/26. Left UE 02/25 due to rotator cuff injury. Weak in lower extremity, 05/26 Diagnostic Testing: Results of labs and DXA were reviewed and discussed with the patient. Labs: November, Satisfactory: 25-OH Vitamin D- 35 Calcium 10.6 Creatinine 0.9 DXA Result: Left femoral neck: 0.639 gms/cm2 T-score: -2.1 FRAX not indicated. VFA not indicated Addendum 08/18/2023 CT of the cervical spine reviewed from 07/03/2023 Degenerative changes seen in the spine degenerative changes without evidence of acute bony injury CT of lumbar spine Degenerative changes in the spine no evidence of acute fracture Assessment: (M81.0) Senile osteoporosis (primary encounter diagnosis) Plan: DEXA SCAN/BONE MINERAL AXIAL, CALCIUM, CREATININE, 25-HYDROXY VITAMIN D 82 year old male with osteoporosis who needs assessment for ongoing treatment. Patient is prone to falls and fractured his lumbar spine last summer. Has had 3 doses of Reclast in the past. We discussed anabolic treatment, unsure how compliant the patient would be with Forteo and Tymlos. 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 Recommend treatment with Prolia for 10 years. Patient is due for DEXA scan. Labs ordered. Patient's son discussed they can get labs done Tuesday as they have another appointment at [facility]. Recommended starting vitamin D3 1000 units daily. We will recheck labs to determine if calcium supplementation is appropriate as his last calcium level is elevated and he was taken off of it by his PCP. I also reviewed that in the unfortunate event of a major fracture, specifically hip fracture, mortality rate is 20% or higher in the first 12 months after the fracture. I recommend continuation of a healthy diet with calcium rich foods as well as calcium and vitamin D supplement. Patient encouragedto participate in weight-bearing exercise (ie walking). Discussed fall avoidance measures and recommend fall prevention. Although falls are never planned, I discussed with the patient the goal of therapy to slow down / stop the process of osteoporosis from progressing. Treatment is currently recommended to prevent fractures in the event of a fall. Patient voiced understanding of the discussion. Encouraged patient to contact clinic with any questions or concerns. Plan: The following items are ordered or are in progress: 1. Education: Osteoporosis education was provided by the [facility] team (topics included disease process, DXA, calcium/vitamin D, osteoporosis medications - including administration instructions and risks/benefits, weight bearing exercise, fall prevention/safety). The patient was provided with [facility] patient education instruction sheet(s): Prolia. 2. Prevention: . Eye Examination recommended annually, as good vision may help to prevent falls . Exercise recommended: standing, walking, light lifting . Fall Prevention/Safety Education recommended and discussed . Continue walker at all times when ambulating . Continue calcium rich foods (goal of 3 servings daily) 3. Osteoporosis Medications : Consider Prolia 60mg subcutaneous injection every 6 months. Recommend taking vitamin-D 3 1000 units daily 4. Bone Density Testing: Overdue for DEXA scan. Ordered DEXA scan to schedule. 5. Laboratory: 25-OH Vitamin D, calcium, creatinine 6. Followup: Return on Nurse Schedule for Prolia in August for 1st dose of Prolia 7. Discussed the above in detail with the patient. All questions answered. 8. Contact clinic with any questions or concerns CC. ALFONSO Sweet [facility] Team I have reviewed the advanced practitioner's documentation on the date of service referenced in note, and I agree with, and take responsibility for the plan of care. Agree with risk stratification and plan to treat with something other than bisphosphonate therapy given past treatment with Reclast Suspected Prolia is the best option and this was presented to the patient and patient will be set up for 1st Prolia injection after appropriate pre authorization and further Education Cecilio Harmon MD documented in this encounter Nursing Notes * Niya Nunez LPN - 08/11/2023 7:56 AM EDT Chief Complaint Patient presents with Rheum Follow Up Follow up - [facility] documented in this encounter Plan of Treatment Upcoming Encounters Date Type Department Care Team (Late st Contact Info) Description 08/30/2023 9:30 AM EDT Imaging Radiology, [address] [place] [address] 09/14/2023 10:30 AM EDT Nurse Only Rheumatology [address] [place] [address] Pf, Nurse Rheum [address] [place] [address] [place] [address] 10/20/2023 7:00 AM EDT Office Visit Nephrology, [facility] [address] [place] [address] Yumiko Philippe MD [address] [place] [address] 11/07/2023 2:30 PM EDT Imaging Radiology, [address] [place] [address] 11/30/2023 12:30 PM EDT Office Visit Orthopaedics [facility] [address] [facility] [place] [address] Ely Cabrales MD [address] [place] [address] 12/20/2023 9:45 AM EDT Office Visit Urology, [facility] [address] [facility] [place] [address] aMn Gu MD [address] [place] [address] 12/26/2023 11:20 AM EST Office Visit General Internal Medicine [facility] [address] [place] [address] Jennifer Sarkar MD [address] [place] [address] Scheduled Orders Name Type Priority Associated Diagnoses Orde r Schedule DEXA SCAN/BONE MINERAL AXIAL Medical Imaging Routine Senile osteoporosis Expected: 08/18/2023 (Approximate), Expires: 08/10/2024 Scheduled Procedures Name Priority Associated Diagnoses Date/Ti [...] D LEVEL ONCE IN A LIFETIME-USE SMARTSET# 77727 Completed 08/17/2023, 12/01/2022, 09/09/2021, Additional history exists [...] this encounter Medical Devices Implanted Type Area Engineering Test Mechanic Device Identifier Shelf Expiration Date Model / Serial / Lot Lens Intraoc 23.0 - [id number] - [id number] Implanted:Qty: 1 on 12/21/2016 by Raj Bernard MD at OR [facility] Left: Eye [employer] 06/20/2021 [id number] / [id number] / Lens Intraoc 22.0 - [id number] - [id number] Implanted:Qty: 1 on 01/06/2017 by Raj Bernard MD at OR [facility] Right: Eye [employer] 08/20/2021 [id number] / [id number] / [id number] documented as of this encounter Results * 25-HYDROXY VITAMIN D (08/17/2023 8:38 AM EDT) 25-Hydroxy Vitamin D 27 >19 ng/mL 08/17/2023 3:16 PM EDT LAB[facility]ORY [facility] Blood Venous blood specimen / Unknown Venipuncture / Unknown 08/17/2023 8:38 AM EDT 08/17/2023 8:38 AM EDT Narrative LAB[facility]ATORY [facility] - 08/17/2023 3:16 PM EDT Deficient: <20 ng/mL Insufficient: 20-29 ng/mL Recommended/Optimum:30-50 ng/mL Vitamin D intoxication is rare. If suspicious of Vitamin D toxicity, evaluation of serum Calcium and PTH is recommended. Meryl HAMILTON LAB BLOOD ORDERAB LES LAB[facility]ATORY [facility] [address] [place] [address] * CREATININE (08/17/2023 8:38 AM EDT) Creatinine 0.9 0.6 - 1.2 mg/dL 08/17/2023 9:51 AM EDT [facility] [place] [facility] Estimated Glomerular Filtration Rate 86 >=60 mL/min 08/17/2023 9:51 AM EDT [facility] [place] [facility] Comment:eGFR is calculated b ased on the CKD-EPI 2020 equation Blood Venous blood specimen / Unknown Venipuncture / Unknown 08/17/2023 8:38 AM EDT 08/17/2023 8:38 AM EDT Meryl Santiago ALFONSO LAB BLOOD ORDERAB LES Performing Organization Address City/[facility]/ZIP Co de Phone Number LABORATORY [place] [phone] [place] [address] * CALCIUM (08/17/2023 8:38 AM EDT) Calcium 10.1 8.4 - 10.2 mg/dL 08/17/2023 9:51 AM EDT LAB[facility] [place] [facility] Blood Venous blood specimen / Unknown Venipuncture / Unknown 08/17/2023 8:38 AM EDT 08/17/2023 8:38 AM EDT Meryl Santiago ALFONSO LAB BLOOD ORDERAB LES Performing Organization Address City/[facility] Co de Phone Number LABORATORY [facility] [place] [phone] [place] [address] documented in this encounter Visit Diagnoses Diagnosis Senile osteoporosis- Primary documented in this encounter Advance Directives * [...] of Attor bj? No Care Teams Director Of Provider Relations Relationship Specialty Start Date End Date Jennifer Sarkar MD [address] [place] [address] PCP - General Internal Medicine 10/06/20 documented as of this encounter
--- OUTSIDE RECORDS SUMMARY | 2023-10-28 23:16 | External Medical Summary | Summary of Care ---
Author Name Unknown Organization [facility] Address [address] [facility] [place] [address] Phone [phone] Care Team Providers Care Informatics Pharmacist Name Role Phone Jennifer Sarkar MD Primary Care Provider [phone] Reason for Visit * Reason Comments NEW [...] shoulders Chase Paz MD [address] [place] [address] Referral ID Status Reason Start Date Expiration Date Visits Requested Visits Authorized [id number] Pending Review Specialty Services Required 04/15/[phone] Encounter Details Date Type Department Care Team (Late st Contact Info) Description 08/17/2023 8:00 AM EDT Office Visit Orthopaedics [facility] [address] [place] [address] Ely Cabrales MD [address] [place] [...] Active Additional Information Patient taking differently:1,000 mg [id number] PRN, ,may take 3rd dose in between [...] right-sided heart failure (HCC),Coronary artery disease involving [place] coronary artery of [place] heart without angina pectoris,Bilateral leg edema TAKE [...] failure 04/08/2020 Coronary artery disease invo lving [place] coronary artery of [place] heart without angina pectoris 11/21/2018 Abnormality of [...] mRNA, LNP-s, No Pre serve, 2-Dose Series ([employer]) 05/14/2020,04/18/2020 H1N1 2009 Influenza, IM 04/22/2009 PPD [...] dominant male who presents for consultation to [facility] for bilateral shoulder injury/pain. [...] split or chew the tablet--dec 12/21/2021(nml EGD 08/21/21)--[facility]18[facility]22 (Patient taking differently: Take [...] failure (HCC) 04/08/2020 Coronary artery disease involving [place] coronary artery of [place] heart without angina pectoris 11/21/2018 Dyslipidemia, goal [...] (RECTUM) 06/03/2017 adenomatous polyp, repeat 5 yrs/[facility] CYSTOSCOPY 03/30/2005 stent removal EGD, FLEXIBLE, DIAGNOSTIC 11/24/2012 UPPER GI ENDOSCOPY DIAGNOSTIC performed by Nakia Benton DO at ENDOS[facility] EGD, FLEXIBLE, DIAGNOSTIC 07/15/2015 Schatzki ring, sm HH/[facility] EGD, FLEXIBLE, DIAGNOSTIC 03/21/2018 erosive gastropathy, tortous esophagus, Schatzki ring/[facility] EGD, FLEXIBLE, DIAGNOSTIC 08/21/2021 sm hiatal hernia / [facility] FRAGMENT KIDNEY STONE BY SHOCK WAVE 03/26/2005 ESWL (Extracorporeal Shock Wave Lithotripsy) INFORMATION bilateral hernia repair REMOVAL OF TONSILS, UNDER AGE 12 REMOVE CATARACT, INSERT LENS PROSTH Left 12/21/2016 left EXTRACAPSULAR CATARACT REMOVAL WITH INTRAOCULAR LENS performed by Raj Bernard MD at OR [facility] REMOVE CATARACT, INSERT LENS PROSTH Right 01/06/2017 right EXTRACAPSULAR CATARACT REMOVAL WITH INTRAOCULAR LENS performed by Raj Bernard MD at OR [facility] Social History Socioeconomic History Marital status: Spouse name: Not on file Number of children: 2 Years of education: Not on file Highest education level: Not on file Occupational History Occupation: [employer] Employer: [id number] Comment: 30 yrs Tobacco Use Smoking [...] Ely Cabrales MD Primary Care Sports Medicine [facility] [address] [address] documented in this encounter Nursing Notes * Mihaela Meyers MED ASSIST - 08/17/2023 8:08 AM EDT Patient presents today for bilateral shoulder injections. Previous 04/15/[address] Paz. documented in this encounter Plan of Treatment Upcoming Encounters Date Type Department Care Team (Late st Contact Info) Description 08/17/2023 8:50 AM EDT Laboratory Laboratory, [address] [place] [phone] [facility] [address] [facility] [place], [place] [address] BPH with obstruction/lower urinary tract symptoms; Dysuria; Senile osteoporosis 08/30/2023 9:30 AM EDT Imaging Radiology, [address] [place] [address] 09/14/2023 10:30 AM EDT Nurse Only Rheumatology [address] [place] [address] Pf, Nurse Rheum [address] [place] [address] [place] [address] 10/20/2023 7:00 AM EDT Office Visit Nephrology, [facility] [address] [facility] [place] [address] Yumiko Philippe MD [address] [facility] [place] [address] 11/07/2023 2:30 PM EDT Imaging Radiology, [address] [place] [address] 11/30/2023 12:30 PM EDT Office Visit Orthopaedics [facility] [address] [facility] [place] [address] Ely Cabrales MD 132 [facility] [place] [address] 12/20/2023 9:45 AM EDT Office Visit Urology, [facility] 132 [facility] [place] [address] Man Gu MD [address] [place] [address] [place] [address] 12/26/2023 11:20 AM EST Office Visit General Internal Medicine [facility] [address] [place] [address] Jennifer Sarkar MD [address] [place] [address] Scheduled Procedures Name Priority Associated Diagnoses Date/Ti [...] D LEVEL ONCE IN A LIFETIME-USE SMARTSET# 41039 Completed 12/01/2022, 09/09/2021, 04/08/2021, Additional history exists [...] this encounter Medical Devices Implanted Type Area Vice President Of Engineering Device Identifier Shelf Expiration Date Model / Serial / Lot Lens Intraoc 23.0 - [id number] - [id number] Implanted:Qty: 1 on 12/21/2016 by Raj Bernard MD at OR [facility] Left: Eye [employer] 06/20/2021 [id number] / [id number] / Lens Intraoc 22.0 - [id number] - [id number] Implanted:Qty: 1 on 01/06/2017 by Raj Bernard MD at OR [facility] Right: Eye [employer]OM[employer] 08/20/2021 [id number] / [id number] / [id number] documented as of this encounter Visit Diagnoses Diagnosis 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 No Care Teams Informatics Pharmacist Relationship Specialty Start Date End Date Jennifer Sarkar MD [address] [place] [address] PCP - General Internal Medicine 10/06/20 documented as of this encounter
--- OUTSIDE RECORDS SUMMARY | 2023-10-28 23:16 | External Medical Summary | Summary of Care ---
Author Name Unknown Organization [facility] Address [address] [facility] [place] [address] Phone [phone] Care Team Providers Care Surveyor Name Role Phone Jennifer Sarkar MD Primary Care Provider Reason for Visit * Reason Comments NEW [...] shoulders Chase Paz MD [address] [place] [address] Referral ID Status Reason Start Date Expiration Date Visits Requested Visits Authorized [id number] Pending Review Specialty Services Required 04/15/[phone] Encounter Details Date Type Department Care Team (Late st Contact Info) Description 08/17/2023 8:00 AM EDT Office Visit Orthopaedics [facility] [address] [place] [address] Ely Cabrales MD [address] [place] [...] Active Additional Information Patient taking differently:1,000 mg [id number] PRN, ,may take 3rd dose in between [...] right-sided heart failure (HCC),Coronary artery disease involving tolowa dee-ni' coronary artery of tolowa dee-ni' heart without angina pectoris,Bilateral leg edema TAKE [...] failure 04/08/2020 Coronary artery disease invo lving tolowa dee-ni' coronary artery of tolowa dee-ni' heart without angina pectoris 11/21/2018 Abnormality of [...] mRNA, LNP-s, No Pre serve, 2-Dose Series (APERA BAGS) 05/14/2020,04/18/2020 H1N1 2009 Influenza, IM 04/22/2009 PPD [...] dominant male who presents for consultation to [facility] for bilateral shoulder [...] split or chew the tablet--dec 12/21/2021(nml EGD 08/21/21)--[facility] (Patient taking differently: Take [...] failure (HCC) 04/08/2020 Coronary artery disease involving tolowa dee-ni' coronary artery of tolowa dee-ni' heart without angina pectoris 11/21/2018 Dyslipidemia, goal [...] performed by ANSHU FOFANA at [facility] COLONOSCOPY W/ LESION REMOVAL, SNARE 02/01/2007 repeat in 5-10 yrs COLONOSCOPY, DIAGNOSTIC (RECTUM) 06/03/2017 adenomatous polyp, repeat 5 yrs/[facility] CYSTOSCOPY 03/30/2005 stent removal EGD, FLEXIBLE, DIAGNOSTIC 11/24/2012 UPPER GI ENDOSCOPY DIAGNOSTIC performed by Nakia Benton DO at [facility]OS[facility] EGD, FLEXIBLE, DIAGNOSTIC 07/15/2015 Schatzki ring, sm HH/[facility] EGD, FLEXIBLE, DIAGNOSTIC 03/21/2018 erosive gastropathy, tortous esophagus, Schatzki ring/[facility] EGD, FLEXIBLE, DIAGNOSTIC 08/21/2021 sm hiatal hernia / [facility] FRAGMENT KIDNEY STONE BY SHOCK WAVE 03/26/2005 ESWL (Extracorporeal Shock Wave Lithotripsy) INFORMATION bilateral hernia repair REMOVAL OF TONSILS, UNDER AGE 12 REMOVE CATARACT, INSERT LENS PROSTH Left 12/21/2016 left EXTRACAPSULAR CATARACT REMOVAL WITH INTRAOCULAR LENS performed by Raj Bernard MD at OR [facility] REMOVE CATARACT, INSERT LENS PROSTH Right 01/06/2017 right EXTRACAPSULAR CATARACT REMOVAL WITH INTRAOCULAR LENS performed by Raj Bernard MD at OR [facility] Social History Socioeconomic History Marital status: Spouse name: Not on file Number of children: 2 Years of education: Not on file Highest education level: Not on file Occupational History Occupation: [employer] Employer: [employer] Comment: 30 yrs Tobacco Use Smoking [...] MD Primary Care Sports [facility] [place] [address] documented in this encounter Nursing Notes * Mihaela Meyers MED ASSIST - 08/17/2023 8:08 AM EDT Patient presents today for bilateral shoulder injections. Previous 04/15/[address] Paz. documented in this encounter Plan of Treatment Upcoming Encounters Date Type Department Care Team (Late st Contact Info) Description 08/30/2023 9:30 AM EDT Imaging Radiology, [address] [place] [address] 09/14/2023 10:30 AM EDT Nurse Only Rheumatology [address] [place] [address] Pf, Nurse Rheum [address] [place] [address] [place] [address] 10/20/2023 7:00 AM EDT Office Visit Nephrology, [facility] [address] [place] [address] Yumiko Philippe MD [address] [place] [address] 11/07/2023 2:30 PM EDT Imaging Radiology, [address] [place] [address] 11/30/2023 12:30 PM EDT Office Visit Orthopaedics [facility] [address] Ely Cabrales MD 132 [facility] [address] 12/20/2023 9:45 AM EDT Office Visit Urology, [facility] 132 [facility] [place] [address] Man Gu MD [address] [place] [address] [place] [address] 12/26/2023 11:20 AM EST Office Visit General Internal Medicine [facility] [address] [place] [address] Jennifer Sarkar MD [address] [facility] [place] [address] Scheduled Procedures Name Priority Associated Diagnoses Date/Ti [...] D LEVEL ONCE IN A LIFETIME-USE SMARTSET# 44598 Completed 12/01/2022, 09/09/2021, 04/08/2021, Additional history exists [...] this encounter Medical Devices Implanted Type Area Backend Java Developer Device Identifier Shelf Expiration Date Model / Serial / Lot Lens Intraoc 23.0 - [id number] - [id number] Implanted:Qty: 1 on 12/21/2016 by Raj Bernard MD at [facility] Left: Eye BAUSCH & LOMB 06/20/2021 [id number] / [id number] / Lens Intraoc 22.0 - [id number] - [id number] Implanted:Qty: 1 on 01/06/2017 by Raj Bernard MD at [facility] Right: Eye BAUSCH & LOMB 08/20/2021 [id number] / [id number] / [id number] documented as of this encounter Visit Diagnoses [...] Power of Attor bj? No Care Teams Surveyor Relationship Specialty Start Date End Date Jennifer Sarkar MD 200 [place] [address] PCP - General Internal Medicine 10/06/20 documented as of this encounter
--- OUTSIDE RECORDS SUMMARY | 2023-10-28 23:16 | External Medical Summary | Summary of Care ---
Author Name Unknown Organization [facility] Address [address] [place] [address] Phone [phone] Care Team Providers Care Warehouse Freight Handler Name Role Phone Jennifer Sarkar MD Primary Care Provider [phone] Reason for Visit * Reason Onset Date Comments Med Request 08/17/2023 Encounter Details Date Type Department Care Team (Late st Contact Info) Description 08/17/2023 Telephone Cardiology, [facility] [address] [place] [address] Gala Martins CRNP [address] [place] [address] Med Request Allergies Active Allergy Reactions Criticality [...] Active Additional Information Patient taking differently:1,000 mg GhlgV5J PRN, ,may take 3rd dose in between [...] right-sided heart failure (HCC),Coronary artery disease involving [place] coronary artery of [place] heart without angina pectoris,Bilateral leg edema TAKE [...] failure 04/08/2020 Coronary artery disease invo lving [place] coronary artery of [place] heart without angina pectoris 11/21/2018 Abnormality of [...] mRNA, LNP-s, No Pre serve, 2-Dose Series (MideoMe) 05/14/2020,04/18/2020 H1N1 2009 Influenza, IM 04/22/2009 PPD [...] encounter Miscellaneous Notes * Telephone Encounter - Paulina Sandhu CPhT - 08/17/2023 2:20 PM EDT Nurse calling for a refill on Furosemide . This was last prescribed by Cardiology . Transfer to specialty refill line. Thank you, Paulina Sandhu Refrigeration Engineer II [facility] ([facility]) (formerly Telepharmacy) 08/17/2023 2:20 PM documented in this encounter Plan of Treatment Upcoming Encounters Date Type Department Care Team (Late st Contact Info) Description 08/30/2023 9:30 AM EDT Imaging Radiology, [facility] [address] [place] [address] 09/14/2023 10:30 AM EDT Nurse Only Rheumatology [facility] [address] [place] [address] Pf, Nurse Rheum [address] [place] [address] 10/20/2023 7:00 AM EDT Office Visit Nephrology, [facility] 200 [facility] [place] [address] Yumiko Philippe MD 200 [facility] [place] [address] 11/07/2023 2:30 PM EDT Imaging Radiology, [facility] [address] [facility] [place] [address] 11/30/2023 12:30 PM EDT Office Visit Orthopaedics [facility] 132 [facility] [place] [address] Ely Cabrales MD 132 [place] [address] 12/20/2023 9:45 AM EDT Office Visit Urology, [facility] 132 [place] [address] Man Gu MD [address] [place] [address] 12/26/2023 11:20 AM EST Office Visit General Internal Medicine [facility] 200 [facility] [place] [address] Jennifer Sarkar MD 200 [facility] [place] [address] Scheduled Procedures Name Priority Associated Diagnoses Date/Ti [...] D LEVEL ONCE IN A LIFETIME-USE SMARTSET# 57319 Completed 08/17/2023, 12/01/2022, 09/09/2021, Additional history exists [...] this encounter Medical Devices Implanted Type Area Wax Ball Molder Device Identifier Shelf Expiration Date Model / Serial / Lot Lens Intraoc 23.0 - [id number] - [id number] Implanted:Qty: 1 on 12/21/2016 by Raj Bernard MD at OR [facility] Left: Eye BAUSCH & LOMB 06/20/2021 [id number] / [id number] / Lens Intraoc 22.0 - [id number] - [id number] Implanted:Qty: 1 on 01/06/2017 by Raj Bernard MD at OR [facility] Right: Eye BAUSCH & LOMB 08/20/2021 [id number] / [id number] / [id number] documented as of this encounter Advance Directives [...] Power of Attor bj? No Care Teams Warehouse Freight Handler Relationship Specialty Start Date End Date Jennifer Sarkar MD 200 [facility] [place] [address] PCP - General Internal Medicine 10/06/20 documented as of this encounter
--- OUTSIDE RECORDS SUMMARY | 2023-10-28 23:16 | External Medical Summary ---
Author Name Unknown Address Unknown Organization [id number][facility] - [address] [place] [address] Laboratory Report Ordering Provider Test Date Status JOSHUA GEE 08/17/2023 08:38:17 Final Observation Date Value Abnormality Reference (Units ) Status Creatinine 08/17/2023 08:38:17 0.9 0.6-1.2 (mg/dL) Final Glomerular filtration rate/1.73 sq M.predicted [Volume Rate/Area] in Serum, Plasma or Blood by Creatinine-based formula (CKD-EPI) 08/17/2023 08:38:17 86 >=60 (mL/min) Final eGFR is calculated based on the CKD-EPI 2020 equation Performing Location LABORATORY [facility] [place] 57-[address] 0 - [address] [place] [address]
--- OUTSIDE RECORDS SUMMARY | 2023-10-28 23:16 | External Medical Summary ---
Author Name Unknown Address Unknown Organization K01:[facility]ATORY [facility] - [address] [place] [address] Laboratory Report Ordering Provider Test Date Status VINITA JONES 08/17/2023 08:38:17 Final Observation Date Value Abnormality Reference (Units ) Status PSA 08/17/2023 08:38:17 8.51 Above high normal <4 .10 (ng/mL) Final Performing Location LAB[facility]ATORY [facility] - [address] [place] [address]
--- OUTSIDE RECORDS SUMMARY | 2023-10-28 23:16 | External Medical Summary | Summary of Care ---
Author Name Unknown Organization [facility] Address [address] [place] [address] Phone [phone] Care Team Providers Care Survey Methodologist Name Role Phone Jennifer Sarkar MD Primary Care Provider [phone] Reason for Visit * Reason Onset Date Comments Abnormal Test Results 08/18/2023 Encounter Details Date Type Department Care Team (Late st Contact Info) Description 08/18/2023 Telephone Rheumatology [facility] [address] [place] [address] Meryl Santiago CRNP [address] [place] [address] Abnormal Test Results Allergies Active Allergy Reactions Criticality [...] Active Additional Information Patient taking differently:1,000 mg VscsY4N PRN, ,may take 3rd dose in between [...] right-sided heart failure (HCC),Coronary artery disease involving [place] coronary artery of [place] heart without angina pectoris,Bilateral leg edema TAKE [...] failure 04/08/2020 Coronary artery disease invo lving [place] de[place] coronary artery of [place] de[place] heart without angina pectoris 11/21/2018 Abnormality of [...] mRNA, LNP-s, No Pre serve, 2-Dose Series ([employer]) 05/14/2020,04/18/2020 H1N1 2009 Influenza, IM 04/22/2009 PPD [...] encounter Miscellaneous Notes * Telephone Encounter - Meryl Santiago CRNP - 08/18/2023 1:20 PM EDT Spoke to the patient at this time. Discussed calcium and kidney function are normal and vitamin-D is slightly decreased. Discussed starting his vitamin-D supplement again. Discussed rechecking vitamin-D level in the next 3-4 months. Order placed at this time. documented in this encounter Plan of Treatment Upcoming Encounters Date Type Department Care Team (Late st Contact Info) Description 08/30/2023 9:30 AM EDT Imaging Radiology, [facility] [place] [address] 09/14/2023 10:30 AM EDT Nurse Only Rheumatology [facility] [place] [address] Pf, Nurse [facility]um [facility] [place] [place] [address] 10/20/2023 7:00 AM EDT Office Visit Nephrology, [facility] 200 [facility] [place] [address] Yumiko Philippe MD 200 [facility] [place] [address] 11/07/2023 2:30 PM EDT Imaging Radiology, [facility] 25[address] [facility] [place] [address] 11/30/2023 12:30 PM EDT Office Visit Orthopaedics [facility] 132 [facility] [place] [address] Ely Cabrales MD 132 [facility] [address] 12/20/2023 9:45 AM EDT Office Visit Urology, [facility] 132 [facility] [place] [address] Man Gu MD [address] [place] [address] 12/26/2023 11:20 AM EST Office Visit General Internal Medicine [facility] 200 [facility] [place] [address] Jennifer Sarkar MD 200 [facility] [place] [address] Scheduled Orders Name Type Priority Associated Diagnoses Orde r Schedule 25-HYDROXY VITAMIN D Lab Routine Senile osteoporosis Expected: 10/24/2023, Expires: 08/17/2024 Scheduled Procedures Name Priority Associated Diagnoses Date/Ti [...] D LEVEL ONCE IN A LIFETIME-USE SMARTSET# [id number] Completed 08/17/2023, 12/01/2022, 09/09/2021, Additional history exists [...] this encounter Medical Devices Implanted Type Area Hand Cementer Device Identifier Shelf Expiration Date Model / Serial / Lot Lens Intraoc 23.0 - [id number] - [id number] Implanted:Qty: 1 on 12/21/2016 by Raj Bernard MD at OR [facility] Left: Eye BAUSCH & LOMB 06/20/2021 [id number] / [id number] / Lens Intraoc 22.0 - [id number] - [id number] Implanted:Qty: 1 on 01/06/2017 by Raj Bernard MD at [facility] Right: Eye BAUSCH & LOMB 08/20/2021 [id number] / [id number] / [id number] documented as of this encounter Visit Diagnoses Diagnosis Senile osteoporosis- [...] Power of Attor bj? No Care Teams Survey Methodologist Relationship Specialty Start Date End Date Jennifer Sarkar MD 200 [facility] [place] [address] PCP - General Internal Medicine 10/06/20 documented as of this encounter
--- OUTSIDE RECORDS SUMMARY | 2023-10-28 23:16 | External Medical Summary | Summary of Care ---
Author Name Unknown Organization [facility] Address [address] [facility] [place] [address] Phone [phone] Care Team Providers Care Tube Dispatcher Name Role Phone Jennifer Sarkar MD Primary Care Provider [phone] Reason for Visit * Reason Comments eRx-Medication Refill Encounter Details Date Type Department Care Team (Late st Contact Info) Description 08/17/2023 Refill General Internal Medicine [facility] 200 [facility] [place] [address] Bettina Lira PA-C 200 [facility] [address] Allergies Active Allergy Reactions Criticality Noted Date [...] Active Additional Information Patient taking differently:1,000 mg UyjaY1Y PRN, ,may take 3rd dose in between [...] right-sided heart failure (HCC),Coronary artery disease involving [place] coronary artery of [place] heart without angina pectoris,Bilateral leg edema TAKE [...] failure 04/08/2020 Coronary artery disease invo lving [place] coronary artery of [place] heart without angina pectoris 11/21/2018 Abnormality of [...] mRNA, LNP-s, No Pre serve, 2-Dose Series ([employer]) 05/14/2020,04/18/2020 H1N1 2009 Influenza, IM 04/22/2009 PPD [...] encounter Miscellaneous Notes * Telephone Encounter - Tawnya Love RPh - 08/17/2023 2:46 PM EDT Refused Prescriptions: Disp Refills Indomethacin 25 MG Oral Capsule (Indocin) 30 Cap*1 Sig: TAKE 1 CAPSULE BY MOUTH 3 TIMES A DAY NEEDED FOR PAIN. WITH FOODRefused By: TAWNYA LOVE for Refusal: Course of treatment complete documented in this encounter Plan of Treatment Upcoming Encounters Date Type Department Care Team (Late st Contact Info) Description 08/30/2023 9:30 AM EDT Imaging Radiology, [address], [place] [address] 09/14/2023 10:30 AM EDT Nurse Only Rheumatology [address] [place] [address] Pf, Nurse Rheum [address] [place] [address] [place] [address] 10/20/2023 7:00 AM EDT Office Visit Nephrology, [facility] [address] [place] [address] Yumiko Philippe MD 200 [facility] [place] [address] 11/07/2023 2:30 PM EDT Imaging Radiology, [address] [place] [address] 11/30/2023 12:30 PM EDT Office Visit Orthopaedics [facility] 132 [place] [address] Ely Cabrales MD 132 [facility] [place] [address] 12/20/2023 9:45 AM EDT Office Visit Urology, [facility] 132 [place] [address] Man Gu MD 27 [facility] [place] [address] 12/26/2023 11:20 AM EST Office Visit General Internal Medicine [facility] [address] [place] [address] Jennifer Sarkar MD [address] [place] [address] Scheduled Procedures Name Priority Associated Diagnoses Date/Ti [...] D LEVEL ONCE IN A LIFETIME-USE SMARTSET# 81233 Completed 12/01/2022, 09/09/2021, 04/08/2021, Additional history exists [...] this encounter Medical Devices Implanted Type Area Roof Mechanic Device Identifier Shelf Expiration Date Model / Serial / Lot Lens Intraoc 23.0 - [id number] - [id number] Implanted:Qty: 1 on 12/21/2016 by Raj Bernard MD at OR [facility] Left: Eye BAUSCH & LOMB 06/20/2021 [id number] / [id number] / Lens Intraoc 22.0 - [id number] - [id number] Implanted:Qty: 1 on 01/06/2017 by Raj Bernard MD at OR [facility] Right: Eye BAUSCH & LOMB 08/20/2021 [id number] / [id number] / [id number] documented as of this encounter Advance Directives [...] Power of Attor bj? No Care Teams Tube Dispatcher Relationship Specialty Start Date End Date Jennifer Sarkar MD 200 [facility] [place], [place] [address] PCP - General Internal Medicine 10/06/20 documented as of this encounter
--- OUTSIDE RECORDS SUMMARY | 2023-10-28 23:16 | External Medical Summary | Summary of Care ---
Author Name Unknown Organization [facility] Address [address] [place] [address] Phone [phone] Care Team Providers Care Forestry Adviser Name Role Phone Jennifer Sarkar MD Primary Care Provider [phone] Reason for Visit * Reason Comments Outpatient Testing Encounter Details Date Type Department Care Team (Late st Contact Info) Description 08/17/2023 8:50 AM EDT Laboratory Laboratory, [facility] 132 [facility] [place] [address] [facility] 132 [place] [address] BPH with obstruction/lower urinary tract symptoms; Dysuria; Senile osteoporosis Allergies Active Allergy Reactions Criticality Noted Date [...] Active Additional Information Patient taking differently:1,000 mg NsvwC8W PRN, ,may take 3rd dose in between [...] right-sided heart failure (HCC),Coronary artery disease involving [place] coronary artery of [place] heart without angina pectoris,Bilateral leg edema TAKE [...] failure 04/08/2020 Coronary artery disease invo lving [place] coronary artery of [place] heart without angina pectoris 11/21/2018 Abnormality of [...] Nocturnal hypoxemia 06/08/2007 Overview: [facility] SPINAL STENOSIS-LUMBAR 07/29/2005 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 14 Kyrgyz flexible cystoscope inserted into urethra and guided [...] mRNA, LNP-s, No Pre serve, 2-Dose Series (PEAK-IT) 05/14/2020,04/18/2020 H1N1 2009 Influenza, IM 04/22/2009 PPD [...] Description 08/30/2023 9:30 AM EDT Imaging Radiology, [facility] [address] [place] [address] 09/14/2023 10:30 AM EDT Nurse Only Rheumatology [facility] [address] [place] [address] Pf, [facility] [address] 10/20/2023 7:00 AM EDT Office Visit Nephrology, [facility] [address] [place] [address] Yumiko Philippe MD [address] [place] [address] 11/07/2023 2:30 PM EDT Imaging Radiology, [facility] [address] [place] [address] 11/30/2023 12:30 PM EDT Office Visit Orthopaedics [facility] 132 [facility] [place] [address] Ely Cabrales MD 132 [facility] [place] [address] 12/20/2023 9:45 AM EDT Office Visit Urology, [facility] 132 [facility] [place] [address] Man Gu MD 27 [facility] [address] [place] [address] 12/26/2023 11:20 AM EST Office Visit General Internal Medicine [facility] 200 [facility] [place] [address] Jennifer Sarkar MD 200 [facility] [place] [address] Pending Results Name Type Priority Associated Diagnoses Date /Time PSA Lab Routine BPH with obstruction/lower urinary tract symptoms Dysuria 08/17/2023 8:38 AM EDT CALCIUM Lab Routine Senile osteoporosis 08/17/2023 8:38 AM EDT CREATININE Lab Routine Senile osteoporosis 08/17/2023 8:38 AM EDT 25-HYDROXY VITAMIN D Lab Routine Senile osteoporosis 08/17/2023 8:38 AM EDT Scheduled Procedures Name Priority Associated Diagnoses Date/Ti me COLONOSCOPY FLEXIBLE PROXIMAL DIAGNOSTIC Recall History of colon polyps Health Maintenance Due Date Last Done Comments DXA Scan 08/05/2021 08/06/2019, 04/04/2017, 05/13/2015, Additional history exists Colonoscopy 06/03/2022 06/03/2017, [...] D LEVEL ONCE IN A LIFETIME-USE SMARTSET# [id number] Completed 12/01/2022, 09/09/2021, 04/08/2021, Additional history exists [...] this encounter Medical Devices Implanted Type Area Decal Applier Device Identifier Shelf Expiration Date Model / Serial / Lot Lens Intraoc 23.0 - [id number] - [id number] Implanted:Qty: 1 on 12/21/2016 by Raj Bernard MD at OR [facility] Left: Eye BAUSCH & LOMB 06/20/2021 [id number] / [id number] / Lens Intraoc 22.0 - [id number] - [id number] Implanted:Qty: 1 on 01/06/2017 by Raj Bernard MD at OR [facility] Right: Eye BAUSCH & LOMB 08/20/2021 [id number] / [id number] / [id number] documented as of this encounter Visit Diagnoses Diagnosis BPH with obstruction/lower urinary tract symptoms Hypertrophy of prostate with urinary obstruction and other lower urinary tract symptoms (LUTS) Dysuria Senile osteoporosis documented in this encounter Advance Directives * [...] Power of Attor bj? No Care Teams Forestry Adviser Relationship Specialty Start Date End Date Jennifer Sarkar MD 200 [place] [address] PCP - General Internal Medicine 10/06/20 documented as of this encounter
--- OUTSIDE RECORDS SUMMARY | 2023-10-28 23:16 | External Medical Summary | Summary of Care ---
Author Name Unknown Organization [facility] Address [address] [facility] [place] [address] Phone [phone] Care Team Providers Care Superintendent Stations Name Role Phone Jennifer Sarkar MD Primary Care Provider [phone] Reason for Visit * Reason Comments Rheum Follow Up Follow up - [facility] * Evaluate & Treat - Unlimited Visits (Within 30 days (routine)) - Closed Specialty Diagnoses / Procedures Referred By Derek t Referred To Contact Rheumatology Diagnoses Acute idiopathic gout of right hand Jennifer Sarkar MD [address] [place] [address] Referral ID Status Reason Start Date Expiration Date V isits Requested Visits Authorized [id number] Closed Specialty Services Required 09/01/[id number] Encounter Details Date Type Department Care Team (Late st Contact Info) Description 08/11/2023 8:00 AM EDT Office Visit Rheumatology [address] [place] [address] Meryl Santiago CRNP [address] [place] [address] Senile osteoporosis* Allergies Active Allergy Reactions Criticality Noted Date Comments Food (See Comments) 03/21/2018 Other reaction(s): WAS TOLD NOT TO TAKE grapefruit Tramadol Other (Please comment) High 10/06/2020 Hallucinations documented as of this encounter (statuses as of 08/11/2023) Medications Medication Sig Dispensed Refills Start Date [...] Active Additional Information Patient taking differently:1,000 mg [id number] PRN, ,may take 3rd dose in between [...] right-sided heart failure (HCC),Coronary artery disease involving [place] coronary artery of [place] heart without angina pectoris,Bilateral leg edema TAKE [...] as of this encounter (statuses as of 08/11/2023) Active Problems Problem Noted Date Diagnosed Date Hypercalcemia 12/03/2022 Supplemental oxygen dependent 05/06/2022 Nasal septal perforation 05/06/2022 Chronic respiratory failure with hypoxia 022 Granulomatous lung disease 09/18/2021 Chronic rhinitis 06/10/2021 Schatzki's ring of distal esophagus 06/10/2021 Chronic right-sided heart failure 04/08/2020 Coronary artery disease invo lving [place] coronary artery of [place] heart without angina pectoris 11/21/2018 Abnormality of [...] as of this encounter (statuses as of 08/11/2023) Resolved Problems Problem Noted Date Diagnosed Date [...] and draped in usual sterile manner. 14 Cymraes flexible cystoscope inserted into urethra and guided [...] as of this encounter (statuses as of 08/11/2023) Immunizations Name Administration Dates Next Due COVID-19 mRNA, LNP-s, No Pre serve, 2-Dose Series (Suo Yi) 05/14/2020,04/18/2020 H1N1 2009 Influenza, IM 04/22/2009 PPD [...] oranges, beans, almonds documented in this encounter Nursing Notes * Niya Nunez LPN - 08/11/2023 7:56 AM EDT Chief Complaint Patient presents with Rheum Follow Up Follow up - [facility] documented in this encounter Plan of Treatment Upcoming Encounters Date Type Department Care Team (Late st Contact Info) Description 08/17/2023 8:00 AM EDT Office Visit Orthopaedics [facility] [place] [address] Ely Cabrales MD [address] [facility] [place] [address] 08/30/2023 9:30 AM EDT Imaging Radiology, [address] [place] [address] 09/14/2023 10:30 AM EDT Nurse Only Rheumatology [address] [place] [address] Pf, Nurse Rheum [facility] [place] [address] 10/20/2023 7:00 AM EDT Office Visit Nephrology, [facility] [address] [place] [address] Yumiko Philippe MD [address] [place] [address] 11/07/2023 2:30 PM EDT Imaging Radiology, [place] [address] [address] [place] [address] 12/20/2023 9:45 AM EDT Office Visit Urology, [facility] [address] [facility] [place] [address] Man Gu MD [address] [place] [address] [place] [address] 12/26/2023 11:20 AM EST Office Visit General Internal Medicine [facility] [address] [place] [address] Jennifer Sarkar MD [address] [place] [address] Scheduled Orders Name Type Priority Associated Diagnoses Orde r Schedule DEXA SCAN/BONE MINERAL AXIAL Medical Imaging Routine Senile osteoporosis Expected: 08/18/2023 (Approximate), Expires: 08/10/2024 CALCIUM Lab Routine Senile osteoporosis Expected: 08/11/2023, Expires: 08/10/2024 CREATININE Lab Routine Senile osteoporosis Expected: 08/11/2023, Expires: 08/10/2024 25-HYDROXY VITAMIN D Lab Routine Senile osteoporosis Expected: 08/11/2023, Expires: 08/10/2024 Scheduled Procedures Name Priority Associated [...] D LEVEL ONCE IN A LIFETIME-USE SMARTSET# [id number] Completed 12/01/2022, 09/09/2021, 04/08/2021, Additional history exists [...] this encounter Medical Devices Implanted Type Area Cattle Feeder Device Identifier Shelf Expiration Date Model / Serial / Lot Lens Intraoc 23.0 - [id number] - [id number] Implanted:Qty: 1 on 12/21/2016 by Raj Bernard MD at OR [facility] Left: Eye BAUSCH & LOMB 06/20/2021 [id number] / [id number] / Lens Intraoc 22.0 - [id number] - [id number] Implanted:Qty: 1 on 01/06/2017 by Raj Bernard MD at OR [facility] Right: Eye BAUSCH & LOMB 08/20/2021 [id number] / [id number] / [id number] documented as of this encounter Visit Diagnoses [...] Power of Attor bj? No Care Teams Superintendent Stations Relationship Specialty Start Date End Date Jennifer Sarkar MD [address] [place] [address], [place] [address] PCP - General Internal Medicine 10/06/20 documented as of this encounter
--- OUTSIDE RECORDS SUMMARY | 2023-10-28 23:16 | External Medical Summary ---
Author Name Unknown Address Unknown Organization K01:[facility] [place] - [address] [place] [address] Laboratory Report Ordering Provider Test Date Status JOSHUA GEE 08/17/2023 08:38:17 Final Deficient: <20 ng/mL
Ins ufficient: 20-29 ng/mL
Recommended/Optimum:30-50 ng/mL

Vitamin D intoxication is rare. If suspicious of Vitamin D toxicity, evaluation of serum Calcium and PTH is recommended. Observation Date Value Abnormality Reference (Units ) Status 25-OH Vitamin D total 08/17/2023 08:38:17 27 >19 (ng/mL) Final Performing Location [facility] - [address] [place] [address]
--- OUTSIDE RECORDS SUMMARY | 2023-10-28 23:17 | External Medical Summary | Summary of Care ---
Author Name Unknown Organization [facility] Address [address] [facility] [place] [address] Phone [phone] Care Team Providers Care Dominatrix Name Role Phone Jennifer Sarkar MD Primary Care Provider [phone] Reason for Visit * Reason Onset Date Comments Test Results 07/01/2023 Encounter Details Date Type Department Care Team (Late st Contact Info) Description 07/01/2023 Telephone General Internal Medicine [facility] [address] [place] [address] Jennifer Sarkar MD [address] [place] [address] Test Results Allergies Active Allergy Reactions Criticality Noted Date Comments Food (See Comments) 03/21/2018 Other reaction(s): WAS TOLD NOT TO TAKE grapefruit Tramadol Other (Please comment) High 10/06/2020 Hallucinations documented as of this encounter (statuses as of 07/14/2023) Medications Medication Sig Dispensed Refills Start Date [...] Active Additional Information Patient taking differently:1,000 mg MgpaL0Q PRN, ,may take 3rd dose in between [...] dryness(nasal septal perforation) 14 g 3 Active Propranolol HCl 20 MG Oral [...] right-sided heart failure (HCC),Coronary artery disease involving [place] coronary artery of [place] heart without angina pectoris,Bilateral leg edema [...] as of this encounter (statuses as of 07/14/2023) Active Problems Problem Noted Date Diagnosed Date Hypercalcemia 12/03/2022 Supplemental oxygen dependent 05/06/2022 Nasal septal perforation 05/06/2022 Chronic respiratory failure with hypoxia 022 Granulomatous lung disease 09/18/2021 Chronic rhinitis 06/10/2021 Schatzki's ring of distal esophagus 06/10/2021 Chronic right-sided heart failure 04/08/2020 Coronary artery disease invo lving [place] coronary artery of [place] heart without angina pectoris 11/21/2018 Abnormality [...] as of this encounter (statuses as of 07/14/2023) Resolved Problems Problem Noted Date Diagnosed Date [...] and draped in usual sterile manner. 14 Bangladeshi flexible cystoscope inserted into urethra and guided [...] as of this encounter (statuses as of 07/14/2023) Immunizations Name Administration Dates Next Due COVID-19 mRNA, LNP-s, No Pre serve, 2-Dose Series (Agenus) 05/14/2020,04/18/2020 H1N1 2009 Influenza, IM 04/22/2009 PPD [...] Telephone Encounter - Melvin Trujillo OSA - 07/14/2023 12:15 PM EDT LMOM 07/14/23 * Telephone Encounter - Arpita Ridley LPN - 07/13/2023 6:04 PM EDT Patient was seen in ER on 07/02, please call and schedule er follow up with DR Sarkar. Thank you * Telephone Encounter - Isabel Hernandes MED ASSIST - 07/02/2023 11:30 AM EDT Called patient, left message to return call. * Telephone Encounter - Jennifer Sarkar MD - 07/01/2023 3:29 PM EDT Recent visit was advised to Avoid narcotics.(Risk falls, has chr resp failure with hypoxia) -we inc duloxetine 06/22/23 Take Tylenol 500 mg 2 tab q8 hrs prn For pain. -keep appt ortho in July -can refer to [facility] pain clinic if he agrees. * Telephone Encounter - Isabel Hernandes MED ASSIST - 07/01/2023 3:02 PM EDT Patient aware and verbalized understanding While on phone, pt requesting refill on oxycodone. Pended if appropriate * Telephone Encounter - Isabel Hernandes MED ASSIST - 07/01/2023 2:59 PM EDT ----- Message from Jennifer Sarkar MD sent at 06/27/2023 12:52 AM EDT ----- Urine culture negative, UA had shown moderate blood, microscopy was advised but not sent, to [facility] for microscopy documented in this encounter Plan of Treatment Upcoming Encounters Date Type Department Care Team (Late st Contact Info) Description 08/03/2023 9:30 AM EDT Office Visit Urology, [facility] [address] [place] [address] Man Gu MD [address] [facility] [address] [place] [address] 08/08/2023 1:30 PM EDT Office Visit Orthopaedics [facility] [address] [place] [address] Ricardo Licona, [address] [facility] [place] [address] 08/11/2023 8:00 AM EDT Office Visit Rheumatology [address] [place] [address] Meryl Santiago CRNP [address] [place] [address] [place] [address] 10/20/2023 7:00 AM EDT Office Visit Nephrology, [facility] [address] [place] [address] Yumiko Phiilppe MD [address] [place] [address] 11/07/2023 2:30 PM EDT Imaging Radiology, [address] [place] [address] 12/26/2023 11:20 AM EST Office Visit General Internal Medicine [facility] [address] [place] [address] Jennifer Sarkar MD [address] [place] [address] Scheduled Procedures Name Priority Associated Diagnoses Date/Ti [...] D LEVEL ONCE IN A LIFETIME-USE SMARTSET# [id number] Completed 12/01/2022, 09/09/2021, 04/08/2021, Additional history exists [...] this encounter Medical Devices Implanted Type Area Tour Actor Device Identifier Shelf Expiration Date Model / Serial / Lot Lens Intraoc 23.0 - [id number] - [id number] Implanted:Qty: 1 on 12/21/2016 by Raj Bernard MD at OR [facility] Left: Eye BAUSCH & LOMB 06/20/2021 [id number] / [id number] / Lens Intraoc 22.0 - [id number] - [id number] Implanted:Qty: 1 on 01/06/2017 by Raj Bernard MD at OR [facility] Right: Eye BAUSCH & LOMB 08/20/2021 [id number] / [id number] / [id number] documented as of this encounter Advance Directives [...] Power of Attor bj? No Care Teams Dominatrix Relationship Specialty Start Date End Date Jennifer Sarkar MD [address] [facility] [place] [address] PCP - General Internal Medicine 10/06/20 documented as of this encounter
--- OUTSIDE RECORDS SUMMARY | 2023-10-28 23:17 | External Medical Summary | Summary of Care ---
Author Name Unknown Organization [facility] Address [address] [facility] [place] [address] Phone [phone] Care Team Providers Care Chemical Pumper Name Role Phone Domenica Sarkar MD Primary Care Provider Reason for Visit * Reason Comments NEW PATIENT * Evaluate & Treat - Unlimited Visits (Within 30 days (routine)) - Closed Specialty Diagnoses / Procedures Referred By Derek t Referred To Contact Urology Diagnoses Bilateral nephrolithiasis Domenica Sarkar MD [address] [place] [address] Referral ID Status Reason Start Date Expiration Date V isits Requested Visits Authorized [id number] Closed Specialty Services Required 12/01/[phone] Encounter Details Date Type Department Care Team (Late st Contact Info) Description 08/03/2023 9:30 AM EDT Office Visit Urology, [facility] [address] [facility] [place] [address] Man Gu MD 27 [facility] [address] [place] [address] Calculus of kidney*; BPH with obstruction/lower urinary tract symptoms; Dysuria Allergies Active Allergy Reactions Criticality Noted Date Comments Food (See Comments) 03/21/2018 Other reaction(s): WAS TOLD NOT TO TAKE grapefruit Tramadol Other (Please comment) High 10/06/2020 Hallucinations documented as of this encounter (statuses as of 08/03/2023) Medications Medication Sig Dispensed Refills Start Date [...] Active Additional Information Patient taking differently:1,000 mg [id number] PRN, ,may take 3rd dose in between [...] right-sided heart failure (HCC),Coronary artery disease involving table mountain coronary artery of table mountain heart without angina pectoris,Bilateral leg edema TAKE [...] the morning. 90 Tablet 3 4 Active documented as of this encounter (statuses as of 08/03/2023) Active Problems Problem Noted Date Diagnosed Date Hypercalcemia 12/03/2022 Supplemental oxygen dependent 05/06/2022 Nasal septal perforation 05/06/2022 Chronic respiratory failure with hypoxia 022 Granulomatous lung disease 09/18/2021 Chronic rhinitis 06/10/2021 Schatzki's ring of distal esophagus 06/10/2021 Chronic right-sided heart failure 04/08/2020 Coronary artery disease invo lving table mountain coronary artery of table mountain heart without angina pectoris 11/21/2018 Abnormality of [...] as of this encounter (statuses as of 08/03/2023) Resolved Problems Problem Noted Date Diagnosed Date [...] as of this encounter (statuses as of 08/03/2023) Immunizations Name Administration Dates Next Due COVID-19 mRNA, LNP-s, No Pre serve, 2-Dose Series ([employer]) 05/14/2020,04/18/2020 H1N1 2009 Influenza, IM 04/22/2009 PPD [...] as of this encounter Progress Notes * Man Gu MD - 08/03/2023 9:30 AM EDT [id number] PCP: DOMENICA SARKAR [facility], [place] [id number] Fabian Starks is a 82 year old male, who presents in referral for evaluation of history of kidney stones. Patient's past notes reviewed. Previous CT scan demonstrates bilateral nonobstructing stones.ER notes and CT scan done July 11, 2023 are reviewed demonstrating a 15 mm left stone. He notes his stones have been present for years. He is here with family. He notes dysuria, slow stream. He notes COPD, felt to due to work at [employer]. Past notes with Dr. Fields and Arben are noted. Patient denies recent stone passage. BPH: Patient is being seen for BPH today. He has had the following symptoms: slow stream, intermittency,and nocturia. Severity is moderate. He has tried tamsulosin, started by PMD Jul 2023. He has previously had cysto done 2005. Problem has been present for years. Problem is getting worse. Urolithiasis: Patient is being seen for stone disease today. Problem has been present for years.. They have had anumber of previous stones. and They have previously required surgery for stone management. Severity is moderate Problem is about the same. Patient has had the following imaging done: CT scan. In the past they have had extracorporeal shockwave lithotripsy & stent placement to manage their stones. Previous evaluation was done by urologist. Creatinine Results: Lab Results Component Value Date/Time CREATININE - [facility] 0.9 03/23/2023 01:05 PM CREATININE - [facility] 0.9 12/01/2022 12:22 PM CREATININE - [facility] 1.1 04/06/2022 12:44 PM CREATININE - [facility] 1.0 01/02/2020 12:23 PM CREATININE - [facility] 1.1 09/10/2019 09:34 AM CREATININE - [facility] 1.1 11/21/2018 02:46 PM CREATININE, RANDOM URINE - [facility] 62 09/09/2021 02:10 PM CREATININE, RANDOM URINE - [facility] 116 10/10/2012 10:41 AM CREATININE-OUTSIDE LAB 1.00 10/03/2020 12:00 AM CREATININE-OUTSIDE LAB 1.01 06/12/2014 12:00 AM PSA Results: Lab Results Component Value Date/Time PSA - [facility] 0.83 07/27/2004 11:41 AM PSA - [facility] 1.01 12/19/2002 02:44 PM PSA - [facility] 0.97 11/02/2001 03:44 PM PSA SCREENING 1.34 10/13/2010 10:07 AM PSA SCREENING 1.39 08/28/2009 12:05 PM PSA SCREENING 1.14 01/15/2008 11:26 AM Current Outpatient Medications Medication Sig Dispense Refill [...] split or chew the tablet--dec 12/21/2021(nml EGD 08/21/21)--[facility] timing 05/18/2022 (Patient taking differently: Take [...] at bedtime. St 06/22/2023 90 Capsule 0 No current facility-administered medications for this visit. Review of patient's allergies indicates: Allergen Reactions Tramadol Other (Please comment) Hallucinations Food (See Comments) Other reaction(s): WAS TOLD NOT TO TAKE grapefruit Social History: Social History Tobacco Use Smoking status: Former Types: Pipe, Cigars Quit date: 1961 Years since quittin.4 Smokeless tobacco: Never Tobacco comments: Smoked a occasional pipe or cigar socially when was younger. Substance Use Topics Alcohol use: Yes Comment: rarely Vaping/E-Cigarette Use Vaping/E-Cigarette Use Never User Vaping/E-Cigarette Substances Vaping/E-Cigarette Devices Family History Problem Relation Name Age of Onset Diabetes Mother Type II Cancer Aunt (Unspecified) maternal Arthritis None Cancer Other nephew 26 lung cancer Past Surgical History: Procedure Laterality Date ABDOMEN (KUB) 1 VIEW 03/30/2005 CATHETERIZE LEFT HEART THRU SKIN 10/09/2008 LEFT HEART CATH, PERCUTANEOUS [place]U FOFANA [place] [facility] [place] W/ LESION REMOVAL, SNARE 02/01/2007 repeat in 5-10 yrs COLONOSCOPY, DIAGNOSTIC (RECTUM) 06/03/2017 adenomatous polyp, repeat 5 yrs/[facility] CYSTOSCOPY 03/30/2005 stent removal EGD, FLEXIBLE, DIAGNOSTIC 11/24/2012 UPPER GI ENDOSCOPY DIAGNOSTIC performed by Nakia Benton DO at [facility] EGD, FLEXIBLE, DIAGNOSTIC 07/15/2015 becca Perez /[facility] EGD, FLEXIBLE, DIAGNOSTIC 03/21/2018 erosive gastropathy, tortous esophagus, Clemente beltran/[facility] EGD, FLEXIBLE, DIAGNOSTIC 08/21/2021 hiatal hernia / [facility] FRAGMENT KIDNEY STONE BY SHOCK WAVE 03/26/2005 ESWL (Extracorporeal Shock Wave Lithotripsy) INFORMATION bilateral hernia repair REMOVAL OF TONSILS, UNDER AGE 13 REMOVE CATARACT, INSERT LENS PROSTH Left 12/21/2016 left EXTRACAPSULAR CATARACT REMOVAL WITH INTRAOCULAR LENS performed by Raj Bernard MD at [facility] REMOVE CATARACT, INSERT LENS PROSTH Right 01/06/2017 right EXTRACAPSULAR CATARACT REMOVAL WITH INTRAOCULAR LENS performed by Raj Bernard MD at [facility] Past Medical History: Diagnosis Date Acquired hypothyroidism ANGIOPLASTY WITH CORONARY STENT TO LAD - bare Metal 10/16/2008 Calculus of ureter 04/01/2005 Chronic respiratory failure with hypoxia (HCC) 11/14/2021 Chronic right-sided heart failure (HCC) 04/08/2020 Coronary artery disease involving table mountain coronary artery of table mountain heart without angina pectoris 11/21/2018 Dyslipidemia, goal [...] 06/08/2007 3 LPM at bedtime [facility] [employer] OBSTRUCTIVE SLEEP APNEA - refuses CPAP 01/15/2008 [...] with delayed healing Coronary artery disease involving table mountain coronary artery of table mountain heart without angina pectoris Abnormality of gait Chronic right-sided heart failure (HCC) Chronic rhinitis 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 Constitutional: General: He is in acute distress (Respiratory distress). Appearance: He is ill-appearing. He is not toxic-appearing. Comments: Using walker and nasal cannula oxygen HENT: Head: Normocephalic. Right Ear: External ear normal. Left Ear: External ear normal. Nose: Nose normal. Mouth/Throat: Mouth: Mucous membranes are moist. Eyes: Extraocular Movements: Extraocular movements intact. Cardiovascular: Pulses: Normal pulses. Pulmonary: Effort: Respiratory distress present. Abdominal: General: Abdomen is protuberant. Palpations: Abdomen is soft. Skin: Coloration: Skin is not pale. Neurological: Mental Status: He is oriented to person, place, and time. Motor: Weakness present. Gait: Gait abnormal. Psychiatric: Behavior: Behavior normal. Thought Content: Thought content normal. Impression/Plan: 82 yo male with stone disease, BPH. Findings reviewed with patient and son. Will add finasteride to his regimen, continue tamsulosin. Expected timeframe to symptom improvement are reviewed. Seen the patient's comorbidities will avoid elective stone management. Will request outside imaging for personal review. It has been a number of years since the patient's PSA, will check with next labs. Will see the patient back in 4 months witha KUB to check on his progress and symptom response. Patient can certainly contact us sooner with any significant difficulties associated with his medication use. Possible side effects reviewed. Above content is personally reviewed. Patient vocalizes good understanding of the treatment plan. Man Gu MD 8:47 AM 08/03/2023 documented in this encounter Nursing Notes * Hien Buchanan LPN - 08/03/2023 9:31 AM EDT New pt. Patient presents with neighbor. Hx stones. Bilat stones. Recent hematuria. documented in this encounter Plan of Treatment Upcoming Encounters Date Type Department Care Team (Late st Contact Info) Description 08/08/2023 1:30 PM EDT Office Visit Orthopaedics [facility] [address] [facility] [place] [address] Ricardo Licona, 132 [facility] [place] [address] 08/11/2023 8:00 AM EDT Office Visit Rheumatology [address] [place] [address] Meryl Santiago CRNP [address] [place] [address] [place] [address] 10/20/2023 7:00 AM EDT Office Visit Nephrology, [facility] [place] [address] Yumiko Philippe MD 200 [facility] [place] [address] 11/07/2023 2:30 PM EDT Imaging Radiology, [address] [place] [address] 12/20/2023 9:45 AM EDT Office Visit Urology, [facility] [address] [facility] [place] [address] Man Gu MD 27 [facility] [address] [place] [address] 12/26/2023 11:20 AM EST Office Visit General Internal Medicine [facility] [place] [address] Domenica Sarkra MD [facility] [place] [address] Scheduled Orders Name Type Priority Associated Diagnoses Orde r Schedule PSA Lab Routine BPH with obstruction/lower urinary tract symptoms Dysuria Expected: 08/03/2023, Expires: 08/02/2024 Scheduled Procedures Name Priority Associated Diagnoses Date/Ti [...] D LEVEL ONCE IN A LIFETIME-USE SMARTSET# [id number] Completed 12/01/2022, 09/09/2021, 04/08/2021, Additional history exists [...] this encounter Medical Devices Implanted Type Area Manager Of Loss Prevention Operations Device Identifier Shelf Expiration Date Model / Serial / Lot Lens Intraoc 23.0 - [id number] - [id number] Implanted:Qty: 1 on 12/21/2016 by Raj Bernard MD at [facility] Left: Eye [employer]USCH [employer] LOMB 06/20/2021 [id number] / [id number] / Lens Intraoc 22.0 - [id number] - [id number] Implanted:Qty: 1 on 01/06/2017 by Raj Bernard MD at OR [facility] Right: Eye [employer]USCH [employer] LOMB 08/20/2021 [id number] / [id number] / [id number] documented as of this encounter Visit Diagnoses Diagnosis Calculus of kidney- Primary BPH with obstruction/lower urinary tract symptoms Hypertrophy of prostate with urinary obstruction and other lower urinary tract symptoms (LUTS) Dysuria documented in this encounter Advance Directives * [...] Power of Attor bj? No Care Teams Chemical Pumper Relationship Specialty Start Date End Date Domenica Sarkar MD 200 [place] [address] PCP - General Internal Medicine 10/06/20 documented as of this encounter
--- OUTSIDE RECORDS SUMMARY | 2023-10-28 23:17 | External Medical Summary | Summary of Care ---
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 Name Role Phone Jennifer Sarkar MD Primary Care Provider [phone] Reason for Visit * Reason Onset Date Comments Appointment 07/01/2023 Encounter Details Date Type Department Care Team (Late st Contact Info) Description 07/01/2023 Telephone General Internal Medicine [facility] 200 [facility] [place] [place] [address] Jennifer Sarkar MD 200 [place] [address] Appointment Allergies Active Allergy Reactions Criticality Noted Date Comments Food (See Comments) 03/21/2018 Other reaction(s): WAS TOLD NOT TO TAKE grapefruit Tramadol Other (Please comment) High 10/06/2020 Hallucinations documented as of this encounter (statuses as of 07/12/2023) Medications Medication Sig Dispensed Refills Start Date [...] Active Additional Information Patient taking differently:1,000 mg [id number] PRN, ,may take 3rd dose in between [...] bedtime. St 06/22/2023 30 Capsule 1 4 Active documented as of this encounter (statuses as of 07/12/2023) Active Problems Problem Noted Date Diagnosed Date [...] as of this encounter (statuses as of 07/12/2023) Resolved Problems Problem Noted Date Diagnosed Date [...] and draped in usual sterile manner. 14 English flexible cystoscope inserted into urethra and guided [...] as of this encounter (statuses as of 07/12/2023) Immunizations Name Administration Dates Next Due COVID-19 mRNA, LNP-s, No Pre serve, 2-Dose Series ([employer]) 05/14/2020,04/18/2020 H1N1 2009 Influenza, IM 04/22/2009 PPD [...] encounter Miscellaneous Notes * Telephone Encounter - Gypsy Bella OSA - 07/12/2023 3:46 PM EDT LMOM. 07/12/2023 * Telephone Encounter - Abril Mayo OSA - 07/01/2023 11:41 AM EDT Pt needs to schedule with Neurology. Essential tremor [G25.0] Cerebral microvascular disease [I67.89] Please contact pt to schedule appointment. Thank You documented in this encounter Plan of Treatment Upcoming Encounters Date Type Department Care Team (Late st Contact Info) Description 08/03/2023 9:30 AM EDT Office Visit Urology, [facility] 132 [facility] [place] [address] Man Gu MD [address] [place] [address] [place] [address] 08/08/2023 1:30 PM EDT Office Visit Orthopaedics [facility] [address] [place] [address] Ricardo Licona, [address] [place] [address] 08/11/2023 8:00 AM EDT Office Visit Rheumatology [place] [address] [facility] [place] [address] Meryl Santiago CRNP [address] [place] [address] 10/20/2023 7:00 AM EDT Office Visit Nephrology, [facility] 200 [facility] [place], [place] [address] Yumiko Philippe MD 200 [facility] [place], [place] [address] 11/07/2023 2:30 PM EDT Imaging Radiology, [facility] [address] [place], [place] [address] 12/26/2023 11:20 AM EST Office Visit General Internal Medicine [facility] 200 [facility] [place], [place] [address] Jennifer Sarkar MD 200 [facility] [place], [place] [address] Scheduled Procedures Name Priority Associated Diagnoses Date/Ti [...] D LEVEL ONCE IN A LIFETIME-USE SMARTSET# [id number] Completed 12/01/2022, 09/09/2021, 04/08/2021, Additional history exists [...] this encounter Medical Devices Implanted Type Area Warehouse Team Leader Device Identifier Shelf Expiration Date Model / Serial / Lot Lens Intraoc 23.0 - [id number] - [id number] Implanted:Qty: 1 on 12/21/2016 by Raj Bernard MD at OR [facility] Left: Eye [employer]CH [employer] LOMB 06/20/2021 [id number] / [id number] / Lens Intraoc 22.0 - [id number] - [id number] Implanted:Qty: 1 on 01/06/2017 by Raj Bernard MD at OR [facility] Right: Eye [employer]CH [employer]OMB 08/20/2021 [id number] / [id number] / [id number] documented as of this encounter Advance Directives [...] Power of Attor bj? No Care Teams Propeller Driven Airplane Mechanic Relationship Specialty Start Date End Date Jennifer Sarkar MD 200 [place] [address] PCP - General Internal Medicine 10/06/20 documented as of this encounter
--- OUTSIDE RECORDS SUMMARY | 2023-10-28 23:17 | External Medical Summary | Summary of Care ---
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 Name Role Phone Jennifer Sarkar MD Primary Care Provider [phone] Reason for Referral * Evaluate & Treat - Unlimited Visits (Within 30 days (routine)) - Pending Review Specialty Diagnoses / Procedures Referred By Contac t Referred To Contact Neurology Diagnoses Essential tremor Cerebral microvascular disease Jennifer Sarkar MD [address] [place] [id number] Referral ID Status Reason Start Date Expiration Date Visits Requested Visits Authorized [id number] Pending Review Specialty Services Required 06/22/[phone] Question Answer Referral Priority Within 30 days (routine) Where should this appointment be scheduled? [facility] This patient already has care established with Neurology. Do not place this order. Please use Ask A Doc to expedite care. Acknowledge Is this referral being placed for insurance purposes ONLY Yes Reason for Visit * Reason Comments Follow Up Encounter Details Date Type Department Care Team (Latest Contact Info) Description 06/22/2023 5:00 PM EDT Office Visit General Internal Medicine [facility] [address] [place] [phone] Jennifer Sarkar MD [address] [place] [address] Dysuria*; Chronic respiratory failure with hypoxia (HCC); Restrictive lung disease; Severe obstructive sleep apnea; Nocturnal hypoxemia; At risk for aspiration pneumonia; Granulomatous lung disease (HCC); Coronary artery disease involving ninilchik coronary artery of ninilchik heart without angina pectoris; Chronic right-sided heart failure (HCC); Dyslipidemia, goal LDL below 70; Acquired hypothyroidism; Senile osteoporosis; Other idiopathic scoliosis, lumbar region; Essential tremor; Cerebral microvascular disease; History of esophageal dilatation; Chronic pain of both shoulders; SPINAL STENOSIS-LUMBAR; BPH with obstruction/lower urinary tract symptoms; Advance directive discussed with patient; Bilateral nephrolithiasis; Current moderate episode of major depressive disorder without prior episode (HCC) Allergies Active Allergy Reactions Criticality Noted Date Comments Food (See Comments) 03/21/2018 Other reaction(s): WAS TOLD NOT TO TAKE grapefruit Tramadol Other (Please comment) High 10/06/2020 Hallucinations documented as of this encounter (statuses as of 07/10/2023) Medications Medication Sig Dispensed Refills Start Date [...] Active Additional Information Patient taking differently:1,000 mg [id number] PRN, ,may take 3rd dose in between [...] 3 Active Furosemide 20 MG Oral Tablet (Lasix)Indications:C hronic right-sided heart failure (HCC),Coronary artery disease involving ninilchik coronary artery of ninilchik heart without angina pectoris,Bilateral leg edema TAKE [...] depressive disorder without prior episode ([facility]) Take 1 Capsule by mouth in the morning. Do not cut, crush or chew--inc from 06/23/2023. 90 Capsule 1 4 Active Tamsulosin HCl 0.4 MG Oral Capsule (Flomax)Indications: BPH with obstruction/lower urinary tract symptoms Take 1 Capsule by mouth at bedtime. St 06/22/2023 30 Capsule 1 4 Active Citalopram Hydrobromide 40 MG Oral Tablet (CeleXA)Indications: Anxiety Take 0.5 Tablets by mouth in the morning. --dec dose 05/18/2022 as adding duloxetine 30 In evening from 05/18/2022. 90 Tablet 3 3 06/22/19 24 Discontin ued(Medic ation List Clean Up) DULoxetine HCl 30 MG Oral Capsule Delayed Release Particles (Cymbalta)Indication s:Chronic bilateral low back pain without sciatica,Levoscolios is of lumbar spine TAKE 1 CAPSULE BY MOUTH EVERY EVENING. DO NOT CUT, CRUSH OR CHEW--START 05/18/2022 AND DEC CITALOPRAM TO 20MG 90 Capsule 1 3 06/22/19 24 Discontin ued(Medic ation/Dos e Changed) documented as of this encounter (statuses as of 07/10/2023) Active Problems Problem Noted Date Diagnosed Date Hypercalcemia 12/03/2022 Supplemental oxygen dependent 05/06/2022 Nasal septal perforation 05/06/2022 Chronic respiratory failure with hypoxia 022 Granulomatous lung disease 09/18/2021 Chronic rhinitis 06/10/2021 Schatzki's ring of distal esophagus 06/10/2021 Chronic right-sided heart failure 04/08/2020 Coronary artery disease invo lving ninilchik coronary artery of ninilchik heart without angina pectoris 11/21/2018 Abnormality of [...] as of this encounter (statuses as of 07/10/2023) Resolved Problems Problem Noted Date Diagnosed Date [...] as of this encounter (statuses as of 07/10/2023) Immunizations Name Administration Dates Next Due COVID-19 [...] Sign Reading Time Taken Comments Blood Pressure 114/80 06/22/2023 5:24 PM EDT Pulse 68 06/22/2023 5:24 PM EDT Temperature 36.8 C (98.2 F) 06/22/2023 5 :24 PM EDT Respiratory Rate 16 06/22/2023 5:24 PM EDT Oxygen Saturation 94% 06/22/2023 5:2 4 PM EDT 3 liters of oxygen Inhaled Oxygen Concentration - - Weight 74.8 kg (164 lb 12.8 oz) 06/22/2023 5:24 PM EDT Height 165.1 cm (5' 5") 06/22/2023 5:24 PM EDT Body Mass Index 27.42 06/22/2023 5:24 PM EDT documented in this encounter Progress Notes * Jennifer Sarkar MD - 06/22/2023 5:29 PM EDT SUBJECTIVE: Fabian Starks is a 82 year old male. Chief Complaint Patient presents with Follow Up Nursing Notes: Tia Lomas, BARRON 06/22/23 1728 Signed Patient presents today for a follow up. He is having pain in both of his arms that runs down into his hands. He has been having issues with his vision being blurry as well. HPI: Patient presents today for 3 mth f/u Wt Readings from Last 6 Encounters: 06/22/23 74.8 kg (164 lb 12.8 oz) 03/23/23 71.6 kg (157 lb 14.4 oz) 12/21/22 73.3 kg (161 lb 8 oz) 12/20/22 74.5 kg (164 lb 3.2 oz) 12/01/22 73.7 kg (162 lb 6.4 oz) 09/01/22 80.5 kg (177 lb 6.4 oz) BP Readings from Last 6 Encounters: 06/22/23 114/80 03/23/23 112/70 12/21/22 112/62 12/20/22 110/70 12/01/22 110/72 09/01/22 110/78 History of CAD H/o AMI SP BM Stent 09/2008, HTN, dyslipidemia, hypothyroidism, chronic peripheral edema, right heart failure, severe EZEQUIEL Untreated(sev EZEQUIEL on PSG 2007 with hypoxia) and RLD with chronically elevated right hemidiaphragm,scoliosis; on nocturnal oxygen 4 lts and in day, essential tremor s, Osteoporosis, Depression, history of C2 fracture from [...] 2019 --had wish to follow-up and had /4/2022 which he missed-will refer back 07/14 Admitted 10/14/2022- 11/13/2022 with a final diagnosis of acute on chronic respiratory failure, pulmonary edema, COPD exacerbation, possible MRSA pneumonia versus aspiration pneumonia, probable C diff colitis. -sent to short-term rehab at [facility] and discharged from there on 11/26/2022 with home health through [facility]. Was treated with IV vancomycin and cefepime [...] and function. hosp f/u 12/21/22 -Admitted to [facility] 12/08- with diagnosis of ambulatory dysfunction, suspectaspiration pneumonia. [...] status post fall at home and felt had physical deconditioning, insurance denied SNF placement, discharged home with home health.,Pt,OT Was empirically started on Augmentin. Speech therapy consulted-video swallow tepan-ugqh-uh-moderate oropharyngeal dysphagia with suspected esophageal dysfunction, aspiration [...] for swelling or shortness of breath, levothyroxine [facility] [place] 12/03/22, lab in feb, meclizine p.r.n., Protonix 20 mg, duloxetine 30 mg, O2 2l with exertion. IV Reclast yearly;--LD 10/14/22 -next rheumatology follow-up 04/12/2023 --dexa needs ann-last in 2019, had order from [facility] 08/12 but not ann yet - seen yesterday for cough, got RF Tessalon, respiratory pathogen panel positive for rhino virus. -daughter accompanies him today again. He has not been using the Combivent, has a cough seems productive of sputum which he is unable to expectorate. No fever or chills. No leg edema. Denies diarrhea. [facility] nurse came in yesterday, to start PT, [...] 112 mcg daily.-rx sent --ch TSH in [place] Urinalysis shows trace blood, keep appointment with Urology and Nephrology --Nml VD PTH,PHOS,refer to endocrinology eval of hypercalcemia 03/23/23--was admitted to [facility] 01/03/23 to 01/09/2023 and discharged to rehab [facility] 01/22/2023, seen in the ED 03/12/2023 Accompanied by his neighbor today. Daughter is in the process of finding permanent placement at assisted living facility Has nursing through [facility] home health. Reviewed [facility] from prison, discharged on oxygen 3 L was to [...] for p.r.n. use at discharge from the prison, is asking for refill, given his history of falls try to avoid narcotics. Home health has been feeling his medication boxes he wants them to continue to come in for few moreweeks 03/23/23-Normal CMP except calcium high at 10.5 stable lipids TSH. -confirm he is not taking multivitamin or calcium supplement. -check ionized calcium, vitamin-D, PTH on 04/07 at [facility] -submit 24 hour urine for uro risk that was ordered in November --dexa is ann in sep Saw Ortho 04/15/2023-bilateral rotator cuff tears with the left worse than right. -given steroid injections, refer to physical therapy, f/u 3mths --has appt in july 26-has not schedule appointment for physical therapy yet, wants to know if he can get pain medications, due to risk of falling will again try to avoid narcotics, to take Tylenol on a regular basis,duloxetine was added at last visit, will increase dose to 60 mg, keep Ortho follow-up 08/08/2023 -neighbor accompanies him today and will follow-up on the same. Complains of a burning sensation slight urgency with urination, no hematuria has Urology appointment 08/03/23 Weight up from last visit, no increase in leg edema chest pain or worsening shortness of breath. Compliant with oxygen therapy. Discussed about covid booster, RSV vaccine. Cardiology appointment in April scx Has not been ann pulm appt [facility] apt 08/11/23 Patient Active Problem List Diagnosis Code Acquired [...] major depressive disorder without prior episode (HCC) F32.1 Displaced fracture of middle third of navicular bone of right wrist with delayed healing S62.021G Coronary artery disease involving ninilchik coronary artery of ninilchik heart without angina pectoris I25.10 Abnormality of gait R26.9 Chronic right-sided heart failure (HCC) I50.812 Chronic rhinitis J31.0 Schatzki's ring of distal esophagus K22.2 Granulomatous lung disease ([facility]) J84.10 Chronic respiratory failure with hypoxia ([facility]) J96.11 Supplemental oxygen dependent Z99.81 [...] EVERY DAY FOR DEPRESSION 90 Tablet 0 No current facility-administered medications for this visit. Review of patient's allergies indicates: Allergen Reactions Tramadol Other (Please comment) Hallucinations Food (See Comments) Other reaction(s): WAS TOLD NOT TO TAKE grapefruit Immunization History Administered Date(s) Administered COVID-19 mRNA, LNP-s, No Preserve, 2-Dose Series (Cignifi) 04/18/2020, 05/14/2020 H1N1 2009 Influenza, IM 04/22/2009 [...] Vaccine Recombinant (Shingrix) 09/17/2019, 01/28/2020 OBJECTIVE: BP 114/80 | Pulse 68 | Temp 36.8 C (98.2 F) (Tympanic) | Resp 16 | Ht 1.651 m (5' 5") | Wt 74.8kg (164 lb 12.8 oz) | SpO2 94% Comment: 3 liters of oxygen | BMI 27.42 kg/m | BSA 1.85 m PHYSICAL EXAM: General: alert, healthy, no [...] slow, motor no focal deficits, Neg cerebellar signs.-omkb-ci-svyk, dysdiadochokinesis, Ext--+tremors Back--mild left convex lumbar scoliosis , dec rom shoulders. Gait with cane-slow Abdomen: Soft, non-tender,small umb hernia, normal bowel sounds, no masses or organomegaly, no bruits Extremities:1+pitting ,no clubbing, no cyanosis with O2. Results for orders placed or performed in visit on 06/22/23 URINALYSIS, POINT OF CARE (ENTER/EDIT) Result Value Ref Range Color, Urine Yellow Yellow or Light Yellow Clarity, Urine Clear Clear Glucose, Urine Negative Negative mg/dL Bilirubin, Urine Negative Negative Ketone, Urine Negative Negative mg/dL Specific Merrick, Urine 1.020 1.003 - 1.030 Blood, Urine Moderate Negative pH, Urine 7.0 5.0 - 7.5 units Protein, Urine Negative Negative mg/dL Urobilinogen, Urine 0.2 0.2 - 1.0 mg/dL Nitrite, Urine Negative Negative Esterase, Urine Negative Negative *Note: Due to a large number of results and/or encounters for the requested time period, some results have not been displayed. A complete set of results can be found in Results Review. ASSESSMENT/PLAN: Dysuria (Primary) - URINALYSIS, POINT OF CARE (ENTER/EDIT) - CULTURE, URINE, QUANTITATIVE - MICROSCOPIC EXAM, URINE; Future; Expected date: 06/22/2023 - MICROSCOPIC EXAM, URINE Chronic respiratory failure with hypoxia (HCC) - CBC WITH WBC DIFFERENTIAL; Future; Expected date: 12/23/2023 - RENAL FUNCTION PANEL; Future; Expected date: 12/23/2023 Restrictive lung disease - CBC WITH WBC DIFFERENTIAL; Future; Expected date: 12/23/2023 Severe obstructive sleep apnea - CBC WITH WBC DIFFERENTIAL; Future; Expected date: 12/23/2023 Nocturnal hypoxemia - CBC WITH WBC DIFFERENTIAL; Future; Expected date: 12/23/2023 At risk for aspiration pneumonia Granulomatous lung disease (HCC) Coronary artery disease involving ninilchik coronary artery of ninilchik heart without angina pectoris - HEPATIC FUNCTION PANEL; Future; Expected date: 12/23/2023 - LDL CHOLESTEROL (DIRECT MEASURE); Future; Expected date: 12/23/2023 - ALT; Future; Expected date: 12/23/2023 Chronic right-sided heart failure (HCC) Dyslipidemia, goal LDL below 70 - LDL CHOLESTEROL (DIRECT MEASURE); Future; Expected date: 12/23/2023 - ALT; Future; Expected date: 12/23/2023 Acquired hypothyroidism - TSH WITH FREE T4 IF INDICATED; Future; Expected date: 12/23/2023 Senile osteoporosis - RENAL FUNCTION PANEL; Future; Expected date: 12/23/2023 Other idiopathic scoliosis, lumbar region Essential tremor - NEUROLOGY REFERRAL OP Cerebral microvascular disease - NEUROLOGY REFERRAL OP History of esophageal dilatation Chronic pain of both shoulders - DULoxetine HCl 60 MG Oral Capsule Delayed Release Particles (Cymbalta); Take 1 Capsule by mouth in the morning. Do not cut, crush or chew--inc from 06/23/2023. SPINAL STENOSIS-LUMBAR - DULoxetine HCl 60 MG Oral Capsule Delayed Release Particles (Cymbalta); Take 1 Capsule by mouth in the morning. Do not cut, crush or chew--inc from 06/23/2023. BPH with obstruction/lower urinary tract symptoms - Tamsulosin HCl 0.4 MG Oral Capsule (Flomax); Take 1 Capsule by mouth at bedtime. 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 Do not cut, crush or chew--inc from 06/23/2023. UA as above, no evidence of infection, await microscopy and culture ct current meds, continue using walker, fall aspiration precautions. Follow up with pulmonology Avoid narcotics.;Tylenol 500 mg 2 tab q8 hrs prn For pain., inc duloxetine Appts as below 6 mth labs ordered 40 min total time spent with patient, time spent reviewing subspecialty notes, diagnostic studies done, follow-up orders/medication refills,over 1/2 time spent in counseling, coordinating care. Follow Up: Return in about 6 months (around 12/23/2023), or if symptoms worsen or fail to improve, for Return with Physician. | For: Return with Physician | Check-out note: Labs soon. And 24 hr urine Ann appt pulm --referred in [place]. [facility] PT as per ortho referral in mar Ludy card appt. [facility] neurology appt (This note was completed using the dictation [...] with plan of care. Jennifer Sarkar MD 06/22/2023 Urine culture negative, microscopy was not sent, to repeat UA. documented in this encounter Nursing Notes * Tia Lomas LPN - 06/22/2023 5:21 PM EDT Patient presents today for a follow up. He is having pain in both of his arms that runs down into his hands. He has been having issues with his vision being blurry as well. documented in this encounter Miscellaneous Notes * Result Encounter Note - Jennifer Sarkar MD - 06/27/2023 12:52 AM EDT Urine culture negative, UA had shown moderate blood, microscopy was advised but not sent, to repeaturine for microscopy documented in this encounter Plan of Treatment Upcoming Encounters Date Type Department Care Team (Late st Contact Info) Description 08/03/2023 9:30 AM EDT Office Visit Urology, [facility] [address] [facility] [place] [address] Man Gu MD [address] [facility] [address] [address] 08/08/2023 1:30 PM EDT Office Visit Orthopaedics [facility] [address] [place] [address] Ricardo Licona, [address] [place] [address] 08/11/2023 8:00 AM EDT Office Visit Rheumatology [address] [place] [address] Meryl Santiago CRNP [address] [place] [address] [place] [address] 10/20/2023 7:00 AM EDT Office Visit Nephrology, [facility] [address] [facility] [place] [address] Yumiko Philippe MD [address] [facility] [place] [address] 11/07/2023 2:30 PM EDT Imaging Radiology, [address] [place] [address] 12/26/2023 11:20 AM EST Office Visit General Internal Medicine [facility] [address] [facility] [place] [address] Jennifer Sarkar MD [address] [facility] [place] [address] Scheduled Orders Name Type Priority Associated Diagnoses Orde r Schedule CBC WITH WBC DIFFERENTIAL Lab Routine Chronic respiratory failure with hypoxia (HCC) Restrictive lung disease Severe obstructive sleep apnea Nocturnal hypoxemia Expected: 12/23/2023 (Approximate), Expires: 06/21/2024 HEPATIC FUNCTION PANEL Lab Routine Coronary artery disease involving ninilchik coronary artery of ninilchik heart without angina pectoris Expected: 12/23/2023 (Approximate), Expires: 06/21/2024 TSH WITH FREE T4 IF INDICATED Lab Routine Acquired hypothyroidism Expected: 12/23/2023 (Approximate), Expires: 06/21/2024 LDL CHOLESTEROL (DIRECT MEASURE) Lab Routine Coronary artery disease involving ninilchik coronary artery of ninilchik heart without angina pectoris Dyslipidemia, goal LDL below 70 Expected: 12/23/2023 (Approximate), Expires: 06/21/2024 ALT Lab Routine Coronary artery disease involving ninilchik coronary artery of ninilchik heart without angina pectoris Dyslipidemia, goal LDL below 70 Expected: 12/23/2023 (Approximate), Expires: 06/21/2024 RENAL FUNCTION PANEL Lab Routine Chronic respiratory failure with hypoxia (HCC) Senile osteoporosis Bilateral nephrolithiasis Expected: 12/23/2023 (Approximate), Expires: 06/21/2024 MICROSCOPIC EXAM, URINE Lab Routine Dysuria Expected: 06/22/2023 (Approximate), Expires: 06/21/2024 Scheduled Procedures Name Priority Associated Diagnoses Date/Ti me COLONOSCOPY FLEXIBLE PROXIMAL DIAGNOSTIC Recall History of colon polyps Scheduled Referrals Name Type Priority Associated Diagnoses Orde r Schedule NEUROLOGY REFERRAL OP Referral Within 30 days (routine) Essential tremor Cerebral microvascular disease Ordered: 06/22/2023 Health Maintenance Due Date Last Done Comments [...] D LEVEL ONCE IN A LIFETIME-USE SMARTSET# [id number] Completed 12/01/2022, 09/09/2021, 04/08/2021, Additional history exists [...] this encounter Medical Devices Implanted Type Area Etl Application Developer Device Identifier Shelf Expiration Date Model / Serial / Lot Lens Intraoc 23.0 - [id number] - [id number] Implanted:Qty: 1 on 12/21/2016 by Raj Bernard MD at OR [facility] Left: Eye [employer] 06/20/2021 [id number] / [id number] / Lens Intraoc 22.0 - [id number] - [id number] Implanted:Qty: 1 on 01/06/2017 by Raj Bernard MD at OR [facility] Right: Eye [employer] 08/20/2021 [id number] / [id number] / [id number] documented as of this encounter Procedures Procedure Name Priority Date/Time Associated Diagnosis Comments CULTURE, URINE, QUANTITATIVE Routine 06/22/2023 6:24 PM EDT Dysuria URINALYSIS, POINT OF CARE (ENTER/EDIT) Routine 06/22/2023 Dysuria documented in this encounter Results * CULTURE, URINE, QUANTITATIVE (06/22/2023 6:24 PM EDT) Culture Growth No significant growth 06/24/2023 9:31 AM EDT [facility] Urine Urine specimen obtained by clean catch procedure / Unknown Non-blood Collection / Unknown 06/22/2023 6:24 PM EDT 06/23/2023 6:45 AM EDT Jennifer Sarkar MD LAB MICRO - GENERAL ORDERABLES [facility]ORY [facility] [address] [place] [address] * URINALYSIS, POINT OF CARE (ENTER/EDIT) (06/22/2023) Color, Urine Yellow Yellow or Light Yellow Clarity, Urine Clear Clear Glucose, Urine Negative Negative mg/dL Bilirubin, Urine Negative Negative Ketone, Urine Negative Negative mg/dL Specific Merrick, Urine 1.020 1.003 - 1.030 Blood, Urine Moderate Negative pH, Urine 7.0 5.0 - 7.5 units Protein, Urine Negative Negative mg/dL Urobilinogen, Urine 0.2 0.2 - 1.0 mg/dL Nitrite, Urine Negative Negative Esterase, Urine Negative Negative Urine 06/22/2023 Jennifer Sarkar MD LAB POINT OF CARE [facility] ENTER/EDIT ORDERABLES documented in this encounter Visit Diagnoses Diagnosis Dysuria- Primary Chronic respiratory failure with hypoxia (HCC) Chronic respiratory failure Restrictive lung disease Other diseases of lung, not elsewhere classified Severe obstructive sleep apnea Obstructive sleep apnea (adult) (pediatric) Nocturnal hypoxemia Hypoxemia At risk for aspiration pneumonia Granulomatous lung disease (HCC) Other diseases of lung, not elsewhere classified Coronary artery disease involving ninilchik coronary artery of ninilchik heart without angina pectoris Chronic right-sided heart failure (HCC) Congestive heart failure, unspecified Dyslipidemia, goal LDL below 70 Other and unspecified hyperlipidemia Acquired hypothyroidism Unspecified hypothyroidism Senile osteoporosis Other idiopathic scoliosis, lumbar region Essential tremor Essential and other specified forms of tremor Cerebral microvascular disease Cerebrovascular disease, unspecified History of esophageal dilatation Chronic pain of both shoulders Pain in joint, shoulder region SPINAL STENOSIS-LUMBAR Spinal stenosis, lumbar region, without neurogenic claudication BPH with obstruction/lower urinary tract symptoms Hypertrophy of prostate with urinary obstruction and other lower urinary tract symptoms (LUTS) Advance directive discussed with patient Other specified counseling Bilateral nephrolithiasis Current moderate episode of major depressive disorder [...] Power of Attor bj? No Care Teams [employer] Shothole [employer]iller Relationship Specialty Start Date End Date Jennifer Sarkar MD [address] [place] [id number] PCP - General Internal Medicine 10/06/20 documented as of this encounter
--- OUTSIDE RECORDS SUMMARY | 2023-10-28 23:17 | External Medical Summary | Summary of Care ---
Author Name Unknown Organization [facility] Address [address] [place] [address] Phone [phone] Care Team Providers Care Instrument Assembly Supervisor Name Role Phone Jennifer Sarkar MD Primary Care Provider [phone] Reason for Visit * Reason Onset Date Comments Hospital Follow-Up 07/14/2023 TONA Encounter Details Date Type Department Care Team (Late st Contact Info) Description 07/14/2023 Telephone General Internal Medicine [facility] 200 [facility] [place] [address] Jennifer Sarkar MD 200 [place] [address] Hospital Follow-Up (TONA) Allergies Active Allergy Reactions Criticality Noted Date [...] Active Additional Information Patient taking differently:1,000 mg [id number] PRN, ,may take 3rd dose in between [...] right-sided heart failure (HCC),Coronary artery disease involving [place] coronary artery of [place] heart without angina pectoris,Bilateral leg edema TAKE [...] failure 04/08/2020 Coronary artery disease invo lving [place] coronary artery of [place] heart without angina pectoris 11/21/2018 Abnormality of [...] encounter Miscellaneous Notes * Telephone Encounter - Meghan Chua RN - 07/14/2023 7:49 AM EDT Transitions of Care Note Reason for Referral:Recent Admission Phone visit for follow up: Inpatient Hospitalization Admitted to: [facility], Date: 07/03/23 Discharged to: SNF, Date: 07/13/23 TONA call not indicated due to patient discharged to SNF. documented in this encounter Plan of Treatment Upcoming Encounters Date Type Department Care Team (Late st Contact Info) Description 08/03/2023 9:30 AM EDT Office Visit Urology, [facility] 132 [facility] [place] [address] Man Gu MD 27 [facility] [address] [place] [address] 08/08/2023 1:30 PM EDT Office Visit Orthopaedics [facility] [address] [place] [address] Ricardo Licona, 132 [facility] [place] [address] 08/11/2023 8:00 AM EDT Office Visit Rheumatology [facility] [address] [place] [address] Meryl Santiago CRNP [address] [facility] [place] [address] 10/20/2023 7:00 AM EDT Office Visit Nephrology, [address] [place] [address] Yumiko Philippe MD 200 [facility] [place], [place] [address] 11/07/2023 2:30 PM EDT Imaging Radiology, [facility] 2520 [facility] [place] [address] 12/26/2023 11:20 AM EST Office Visit General Internal Medicine [facility] 200 [facility] [place] [address] Jennifer Sarkar MD 200 [facility] [place] [address] Scheduled Procedures Name Priority Associated Diagnoses Date/Ti [...] D LEVEL ONCE IN A LIFETIME-USE SMARTSET# [id number] Completed 12/01/2022, 09/09/2021, 04/08/2021, Additional history exists [...] this encounter Medical Devices Implanted Type Area Business Development Director Device Identifier Shelf Expiration Date Model / Serial / Lot Lens Intraoc 23.0 - [id number] - [id number] Implanted:Qty: 1 on 12/21/2016 by Raj Bernard MD at OR [facility] Left: Eye BAUSCH & LOMB 06/20/2021 [id number] / [id number] / Lens Intraoc 22.0 - [id number] - [id number] Implanted:Qty: 1 on 01/06/2017 by Raj Bernard MD at OR [facility] Right: Eye BAUSCH & LOMB 08/20/2021 [id number] / [id number] / [id number] documented as of this encounter Advance Directives [...] Power of Attor bj? No Care Teams Instrument Assembly Supervisor Relationship Specialty Start Date End Date Jennifer Sarkar MD 200 [place] [address] PCP - General Internal Medicine 10/06/20 documented as of this encounter
--- OUTSIDE RECORDS SUMMARY | 2023-10-28 23:17 | External Medical Summary | Summary of Care ---
Author Name Unknown Organization [facility] Address [address] [facility] [place] [address] Phone [phone] Care Team Providers Care Gospel Worker Name Role Phone Jennifer Sarkar MD Primary Care Provider Reason for Visit * Reason Comments eRx-Medication Refill Encounter Details Date Type Department Care Team (Late st Contact Info) Description 07/22/2023 Refill General Internal Medicine [facility] 200 [facility] [place] [address] Jennifer Sarkar MD 200 [facility] [place] [address] Allergies Active Allergy Reactions Criticality Noted Date Comments Food (See Comments) 03/21/2018 Other reaction(s): WAS TOLD NOT TO TAKE grapefruit Tramadol Other (Please comment) High 10/06/2020 Hallucinations documented as of this encounter (statuses as of 07/23/2023) Medications Medication Sig Dispensed Refills Start Date [...] Active Additional Information Patient taking differently:1,000 mg HrutA2V PRN, ,may take 3rd dose in between [...] right-sided heart failure (HCC),Coronary artery disease involving [place] coronary artery of [place] heart without angina pectoris,Bilateral leg edema [...] 06/23/2023. 90 Capsule 1 06/22/19 24 Active Tamsulosin HCl 0.4 MG Oral Capsule (Flomax)Indications: BPH with obstruction/lower urinary tract symptoms Take 1 Capsule by mouth at bedtime. St 06/22/2023 30 Capsule 1 06/22/19 24 Active Propranolol HCl 20 MG Oral Tablet (Inderal) Take 1 Tablet by mouth in the morning and 1 Tablet at noon and 1 Tablet before bedtime. 270 Tablet 3 07/23/19 24 Active Propranolol HCl 20 MG Oral Tablet (Inderal) Take 1 Tablet by mouth in the morning and 1 Tablet at noon and 1 Tablet before bedtime. 270 Tablet 3 06/19/19 23 024 Discontinued documented as of this encounter (statuses as of 07/23/2023) Active Problems Problem Noted Date Diagnosed Date Hypercalcemia 12/03/2022 Supplemental oxygen dependent 05/06/2022 Nasal septal perforation 05/06/2022 Chronic respiratory failure with hypoxia 022 Granulomatous lung disease 09/18/2021 Chronic rhinitis 06/10/2021 Schatzki's ring of distal esophagus 06/10/2021 Chronic right-sided heart failure 04/08/2020 Coronary artery disease invo lving [place] coronary artery of [place] heart without angina pectoris 11/21/2018 Abnormality [...] as of this encounter (statuses as of 07/23/2023) Resolved Problems Problem Noted Date Diagnosed Date [...] as of this encounter (statuses as of 07/23/2023) Immunizations Name Administration Dates Next Due COVID-19 mRNA, LNP-s, No Pre serve, 2-Dose Series (Meldium) 05/14/2020,04/18/2020 H1N1 2009 Influenza, IM 04/22/2009 PPD [...] encounter Miscellaneous Notes * Telephone Encounter - Renate Hunter [facility] - 07/23/2023 6:50 AM EDTSigned Prescriptions: Disp Refills Propranolol HCl 20 MG Oral Tablet (Inderal)270 Ta*3 Sig: Take 1 Tablet by mouth in the morning and 1 Tablet at noon and 1 Tablet before bedtime.Authorizing Provider: Tabitha SARKAR User: RENATE HUNTER documented in this encounter Plan of Treatment Upcoming Encounters Date Type Department Care Team (Late st Contact Info) Description 07/27/2023 4:00 PM EDT Office Visit General Internal Medicine [facility] [address] [place] [address] Jennifer Sarkar MD [address] [place] [address] 08/03/2023 9:30 AM EDT Office Visit Urology, [facility] 132 [facility] [place] [id number] Man Gu MD 27 [facility] [address] [place] [address] 08/08/2023 1:30 PM EDT Office Visit Orthopaedics [facility] [address] [place] [address] Ricardo Licona, [address] [place] [address] 08/11/2023 8:00 AM EDT Office Visit Rheumatology [address] [place] [address] Meryl Santiago CRNP [address] [place] [address] [place] [address] 10/20/2023 7:00 AM EDT Office Visit Nephrology, [facility] 200 [facility] [place] [address] Yumiko Philippe MD 200 [facility] [place] [address] 11/07/2023 2:30 PM EDT Imaging Radiology, [address] [place] [address] 12/26/2023 11:20 AM EST Office Visit General Internal Medicine [facility] 200 [facility] [place] [address] Jennifer Sarkar MD 200 [facility] [place] [address] Scheduled Procedures Name Priority Associated Diagnoses Date/Ti [...] D LEVEL ONCE IN A LIFETIME-USE SMARTSET# [id number] Completed 12/01/2022, 09/09/2021, 04/08/2021, Additional history exists [...] this encounter Medical Devices Implanted Type Area Skin Pass Operator Device Identifier Shelf Expiration Date Model / Serial / Lot Lens Intraoc 23.0 - [id number] - [id number] Implanted:Qty: 1 on 12/21/2016 by Raj Bernard MD at OR [facility] Left: Eye BAUSCH & LOMB 06/20/2021 [id number] / [id number] / Lens Intraoc 22.0 - [id number] - [id number] Implanted:Qty: 1 on 01/06/2017 by Raj Bernard MD at OR [facility] Right: Eye BAUSCH & LOMB 08/20/2021 [id number] / [id number] / [id number] documented as of this encounter Advance Directives [...] Power of Attor bj? No Care Teams Gospel Worker Relationship Specialty Start Date End Date Jennifer Sarkar MD 200 [place] [address] PCP - General Internal Medicine 10/06/20 documented as of this encounter
--- OUTSIDE RECORDS SUMMARY | 2023-10-28 23:17 | External Medical Summary | Summary of Care ---
Author Name Unknown Organization [facility] Address [address] [facility] [place] [address] Phone [phone] Care Team Providers Care Pipefitter Helper Name Role Phone Jennifer Sarkar MD Primary Care Provider [phone] Reason for Visit * Reason Onset Date Comments Appointment 07/01/2023 Encounter Details Date Type Department Care Team (Late st Contact Info) Description 07/01/2023 Telephone General Internal Medicine [facility] [address] [facility] [place] [address] Jennifer Sarkar MD 200 [place] [address] Appointment Allergies Active Allergy Reactions Criticality Noted [...] Active Additional Information Patient taking differently:1,000 mg FzcvL1W PRN, ,may take 3rd dose in between [...] heart failure (HCC),Coronary artery disease involving [place] coronary artery of [place] heart without angina pectoris,Bilateral leg edema [...] 04/08/2020 Coronary artery disease invo lving [place] coronary artery of [place] heart without angina pectoris 11/21/2018 Abnormality [...] and draped in usual sterile manner. 14 Lebanese flexible cystoscope inserted into urethra and guided [...] mRNA, LNP-s, No Pre serve, 2-Dose Series (D-Share) 05/14/2020,04/18/2020 H1N1 2009 Influenza, IM 04/22/2009 PPD [...] Encounter - Melvin Trujillo OSA - 07/14/2023 12:13 PM EDT LMOM 07/14/23 * Telephone Encounter - Gypsy Bella OSA [...] 08/03/2023 9:30 AM EDT Office Visit Urology, [facility] [address] [place] [address] Man Gu MD [address] [address] [place] [address] 08/08/2023 1:30 PM EDT Office Visit Orthopaedics [facility] [address] [place] [address] Ricardo Licona S, DO [address] [place] [address] 08/11/2023 8:00 AM EDT Office Visit Rheumatology [address] [place] [address] Meryl Santiago CRNP [address] [place] [address] [place] [address] 10/20/2023 7:00 AM EDT Office Visit Nephrology, [facility] [address] [facility] [place] [address] Yumiko Philippe MD [address] [facility] [place] [address] 11/07/2023 2:30 PM EDT Imaging Radiology, [address] [place] [address] 12/26/2023 11:20 AM EST Office Visit General Internal Medicine [facility] [address] [facility] [place] [address] Jennifer Sarkar MD [address] [facility] [place] [address] Scheduled Procedures Name Priority Associated Diagnoses Date/Ti [...] D LEVEL ONCE IN A LIFETIME-USE SMARTSET# [id number] Completed 12/01/2022, 09/09/2021, 04/08/2021, Additional history exists [...] this encounter Medical Devices Implanted Type Area Avionics Electronics Technician Device Identifier Shelf Expiration Date Model / Serial / Lot Lens Intraoc 23.0 - [id number] - [id number] Implanted:Qty: 1 on 12/21/2016 by Raj Bernard MD at OR [facility] Left: Eye BAUSCH & LOMB 06/20/2021 [id number] / [id number] / Lens Intraoc 22.0 - [id number] - [id number] Implanted:Qty: 1 on 01/06/2017 by Raj Bernard MD at OR [facility] Right: Eye BAUSCH & LOMB 08/20/2021 [id number] / [id number] / [id number] documented as of this encounter Advance Directives [...] Power of Attor bj? No Care Teams Pipefitter Helper Relationship Specialty Start Date End Date Jennifer Sarkar MD 200 [place] [address] PCP - General Internal Medicine 10/06/20 documented as of this encounter
--- OUTSIDE RECORDS SUMMARY | 2023-10-28 23:17 | External Medical Summary | Summary of Care ---
Author Name Unknown Organization [facility] Address [address] [facility] [place] [address] Phone [phone] Care Team Providers Care Trader Name Role Phone Jennifer Sarkar MD Primary Care Provider [phone] Reason for Visit * Reason Onset Date Comments Appointment 07/01/2023 Encounter Details Date Type Department Care Team (Late st Contact Info) Description 07/01/2023 Telephone General Internal Medicine [facility] 200 [facility] [place] [address] Jennifer Sarkar MD 200 [place] [address] Appointment Allergies Active Allergy Reactions Criticality Noted Date Comments Food (See Comments) 03/21/2018 Other reaction(s): WAS TOLD NOT TO TAKE grapefruit Tramadol Other (Please comment) High 10/06/2020 Hallucinations documented as of this encounter (statuses as of 07/15/2023) Medications Medication Sig Dispensed Refills Start Date [...] Active Additional Information Patient taking differently:1,000 mg HcphD5H PRN, ,may take 3rd dose in between [...] right-sided heart failure (HCC),Coronary artery disease involving [place] coronary artery of [place] heart without angina pectoris,Bilateral leg edema TAKE [...] as of this encounter (statuses as of 07/15/2023) Active Problems Problem Noted Date Diagnosed Date Hypercalcemia 12/03/2022 Supplemental oxygen dependent 05/06/2022 Nasal septal perforation 05/06/2022 Chronic respiratory failure with hypoxia 022 Granulomatous lung disease 09/18/2021 Chronic rhinitis 06/10/2021 Schatzki's ring of distal esophagus 06/10/2021 Chronic right-sided heart failure 04/08/2020 Coronary artery disease invo lving [place] coronary artery of [place] heart without angina pectoris 11/21/2018 Abnormality of [...] as of this encounter (statuses as of 07/15/2023) Resolved Problems Problem Noted Date Diagnosed Date [...] as of this encounter (statuses as of 07/15/2023) Immunizations Name Administration Dates Next Due COVID-19 mRNA, LNP-s, No Pre serve, 2-Dose Series ([employer]) 05/14/2020,04/18/2020 H1N1 2009 Influenza, IM 04/22/2009 PPD [...] Telephone Encounter - Melvin Trujillo OSA - 07/15/2023 10:21 AM EDT 2 contact attempts made - patient unable to be reached - Letter Sent * Telephone Encounter - Melvin Trujillo OSA [...] 08/03/2023 9:30 AM EDT Office Visit Urology, [facility] 132 [facility] [place] [address] Man Gu MD 27 [facility] [address] [place] [address] 08/08/2023 1:30 PM EDT Office Visit Orthopaedics [facility] [address] [place] [address] Ricardo Licona DO [address] [place] [address] 08/11/2023 8:00 AM EDT Office Visit Rheumatology [address] [place] [address] Meryl Santiago CRNP [address] [place] [address] [place] [address] 10/20/2023 7:00 AM EDT Office Visit Nephrology, [facility] 200 [facility] [place] [address] Yumiko Philippe MD 200 [facility] [place] [address] 11/07/2023 2:30 PM EDT Imaging Radiology, [address] [place] [address] 12/26/2023 11:20 AM EST Office Visit General Internal Medicine [facility] [address] [place] [address] Jennifer Sarkar MD 200 [facility] [place] [address] Scheduled Procedures Name Priority Associated Diagnoses Date/Ti [...] D LEVEL ONCE IN A LIFETIME-USE SMARTSET# [id number] Completed 12/01/2022, 09/09/2021, 04/08/2021, Additional history exists [...] this encounter Medical Devices Implanted Type Area Slat Basket Maker Helper Device Identifier Shelf Expiration Date Model / Serial / Lot Lens Intraoc 23.0 - [id number] - [id number] Implanted:Qty: 1 on 12/21/2016 by Raj Bernard MD at OR [facility] Left: Eye BAUSCH & LOMB 06/20/2021 [id number] / [id number] / Lens Intraoc 22.0 - [id number] - [id number] Implanted:Qty: 1 on 01/06/2017 by Raj Bernard MD at OR [facility] Right: Eye BAUSCH & LOMB 08/20/2021 [id number] / [id number] / [id number] documented as of this encounter Advance Directives [...] Power of Attor bj? No Care Teams Trader Relationship Specialty Start Date End Date Jennifer Sarkar MD 200 [place] [address] PCP - General Internal Medicine 10/06/20 documented as of this encounter
[2023-10-29 01:11] LABS: Magnesium 1.9 mg/dl (1.7-2.4)
[2023-10-29 01:28] LABS: Base Excess VBG 10.2 mEq/L; HCO3 VBG 36 mmol/L; Oxygen Saturation VBG 94.7 %; PCO2 VBG 52 mmHg (38-50); PO2 VBG 69 mmHg; pH VBG 7.45 (7.36-7.41)
--- NOTE | 2023-10-29 02:00 | History & Physical Report ---
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 SCDs Re: Head trauma Full code Patient daughter requesting updates from providers. Ms. Ciara Mcgrath, contact #[phone]. Text document was generated using hopTo voice recognition software. It may contain grammatical or spelling errors. Kindly contact undersigned for clarification of any documentation item in question. History of Present Illness Chief Complaint: Fall, dizziness Primary Care Provider: Jennifer Sarkar MD History obtained from patient and records. 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 Patient felt lightheaded and dizzy after coming out of a diner yesterday. Denies unusual chest pain or SOB. [place] like he was going to pass out. Patient thinks he is not drinking enough water. Patient fell backwards hitting his head. No LOC. Patient brought to ER for evaluation. MEDICAL HISTORY: As above. SURGERIES: Hernia surgery, foot surgery, ESWL, tonsillectomy, cataract surgeri es, urologic procedures FAMILY HISTORY: Lung cancer, DM PERSONAL SOCIAL HISTORY: Past tobacco use. 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 Home Medications Medication Instructions Recorded Confirmed Type acetaminophen 500 mg tablet 1,000 mg (2 x 500 mg) PO Q8H PRN 07/13/23 10/29/23 Rx (Tylenol Extra Strength) fever or pain #90 tabs albuterol sulfate 90 mcg/actuation 2 puff inhalation Q6H PRN 07/13/23 10/29/23 Rx aerosol inhaler Shortness Of Breath Or Wheezing #8.5 grams benzonatate 100 mg capsule 100 mg PO TID PRN Cough #90 caps 07/13/23 10/29/23 Rx citalopram 40 mg tablet 20 mg (1/2 x 40 mg) PO QAM #30 tabs 07/13/23 10/29/23 Rx clopidogrel 75 mg tablet (Plavix) See Rx Instructions .Route 07/13/23 10/29/23 Rx .COMPLEX #30 tabs duloxetine 30 mg capsule,delayed 60 mg (2 x 30 mg) PO QAM Pain #30 07/13/23 10/29/23 Rx release caps furosemide 20 mg tablet 20 mg PO QAM #30 tabs 07/13/23 10/29/23 Rx ipratropium 20 mcg-albuterol 100 1 puff inhalation QID #4 grams 07/13/23 10/29/23 Rx mcg/actuation mist for inhalation levothyroxine 112 mcg tablet 112 mcg PO DAILYBB #30 tabs 07/13/23 10/29/23 Rx montelukast 10 mg tablet 10 mg PO QAM #30 tabs 07/13/23 10/29/23 Rx (Singulair) nitroglycerin 0.4 mg sublingual 1 tab sublingual UD PRN Angina #30 07/13/23 10/29/23 Rx tablet tabs pantoprazole 20 mg tablet,delayed 20 mg PO DAILYBB #30 tabs 07/13/23 10/29/23 Rx release propranolol 20 mg tablet 20 mg PO TID #90 tabs 07/13/23 10/29/23 Rx rosuvastatin 5 mg tablet 5 mg PO QAM #30 tabs 05/22/24 09/07/24 Rx sodium chloride-aloe vera nasal 1 applic intranasal BID PRN Dry 07/13/23 10/29/23 Rx gel (Saline Nasal (aloe vera) gel) Nasal Passages #14.1 grams tamsulosin 0.4 mg capsule 0.4 mg PO HS #30 caps 07/13/23 10/29/23 Rx Past Med/Surg History Problem List (Updated 10/29/23 @ 09:00 by Mele Aguila MD) Chronic respiratory failure (Acute) Dizziness (Acute) Fall (Acute) Kidney stones ONE PRESENT/NO PROBLEMS WITH Hematuria Ambulatory dysfunction (Acute) Chronic hypoxic respiratory failure, on home oxygen therapy (Acute) Fall (Acute) Dizziness (Acute) Leukocytosis (Acute) Ambulatory dysfunction (Acute) Generalized weakness (Acute) COPD (chronic obstructive pulmonary disease) (Acute) Physical deconditioning (Acute) Dependence on supplemental oxygen (Acute) Fall Elevated hemidiaphragm Pneumonia Scoliosis Right heart failure Hypokalemia Acute and chronic respiratory failure Chronic obstructive pulmonary disease Depression Hyperlipidemia Hypertension Shortness of breath (Acute) Pulmonary edema (Acute) Acute exacerbation of CHF (congestive heart failure) (Acute) Encounter for pre-operative examination Spinal stenosis (Chronic) Encounter for pre-operative examination Acute respiratory failure (Acute) Shortness of breath Leukocytosis Aspiration into airway Medical History (Updated 10/29/23 @ 09:00 by Mele Aguila MD) Bilateral shoulder pain Fall Restrictive lung disease Acute on chronic respiratory failure with hypoxemia Acute and chronic respiratory failure with hypercapnia Pulmonary embolism COVID-19 Choking REASON FOR UPCOMING PROCEDURE PER PT Ankle swelling PT PLANS TO DISCUSS WITH PT REPORTS DR HAD HIM STOP FLUID PILL AND NOT SURE WHY Infected dental caries Subperiosteal abscess of jaw Acute periodontal abscess Pain, dental Generalized muscle weakness Lower urinary tract symptoms (LUTS) Hypoxia DVT prophylaxis Chronic right-sided heart failure Fall HX, NOT RECENTLY Cervical spine fracture LAST SUMMER NO LIMITATIONS SOB (shortness of breath) on exertion with wheezing Scoliosis Chronic back pain GERD (gastroesophageal reflux disease) Hypothyroidism On anticoagulant therapy plavix daily 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 Myocardial Infarction 2009 Sleep apnea uses 4 L N/C MOSTLY ALL THE TIME On home oxygen therapy 3-4 L CONTINUOUS MOSTLY, AND PRN PER PT COPD (chronic obstructive pulmonary disease) Dyslipidemia HTN (hypertension) Hypothyroidism CAD (coronary artery disease) Surgical History Hx of oral surgery (07/05/21) Multiple Teeth Extractions for Facial Infection - Sin Chacko, DMD NO CURRENT INFECTION PER PT (PAT CALL 08/18/21) History of testicular surgery "sac full of blood in testicle drained at 26 yrs old" History of heart artery stent x1 2009--[facility] [place] History of open reduction and internal fixation (ORIF) procedure left foot fx/pinky toe fx--hardware in place History of lithotripsy Hx of vasectomy Hx of right inguinal hernia repair History of colonoscopy History of esophagogastroduodenoscopy (EGD) History of wisdom tooth extraction History of tonsillectomy History of bilateral cataract extraction History of cardiac cath 2009 @ [facility] [place] with 1 stent--follows with Dr. Ramirez Stented coronary artery "bare metal stent to LAD 2008" Family History Sister Family history of reaction to anesthesia nausea/vomiting Mother Family history of diabetes mellitus Social History Smoking Status: Former smoker Tobacco Type: Pipe Cigarettes Per Day: SMOKED PIPE/CIGAR AGE 21'S; Second Hand Exposure: No; Do You Dip or Chew Tobacco: No; Hx Alcohol Use: No Hx Substance Use: No Preferred Language: Chinese Communication Ability: Effective Communication Tools: Other Visual Impairment: No Limitations Child And Family Services Worker Required: No Beliefs That Will Affect Care: None marital status: Current Living Situation: Alone Current Living Situation Comment: DOG How many Children do You have: 1 Other Information That Helps Us Care for You: No Feels Safe at Home: Yes Safety Concerns: Feels Safe At This Time Assistive Devices: Cane and Walker Review of Systems Review of Systems: As per HPI, all other systems reviewed and negative Physical Exam Physical Exam: GENERAL: Slightly uncomfortable, no respiratory distress SKIN: Normal color, warm HEENT: Gantt palpebral conjunctivae, no ptosis, dry buccal mucosa, nasal cannula in place NECK : Supple, no tenderness CHEST : Decreased breath sounds, no wheezes, no tenderness HEART : RRR, no obvious murmurs ABDOMEN: Some distention, nontender EXTREMITIES : Minimal LE swelling, no LE tenderness, no other conspicuous deformities noted NEUROLOGIC : Coherent, no facial asymmetry, rest tremors, gait and stance not assessed Results & Data Results & Data Vital Signs (Past 12 Hours) Vital Signs Temp Pulse Resp BP BP Pulse Ox O2 Del Method 10/28/23 23:34 66 10/28/23 23:03 67 22 119/84 96 10/28/23 22:18 66 23 121/79 95 10/28/23 22:09 67 19 125/95 96 10/28/23 21:51 73 19 120/80 10/28/23 21:42 67 19 108/80 98 10/28/23 19:45 90 Nasal Cannula 10/28/23 19:27 78 16 120/89 89 L 10/28/23 19:24 79 10/28/23 19:24 Nasal Cannula 10/28/23 19:24 36.5 C 10/28/23 19:24 36.5 C 19 120/89 89 L Nasal Cannula 10/28/23 19:24 36.5 C 78 19 120/89 89 L Nasal Cannula O2 Flow Rate 10/28/23 23:34 10/28/23 23:03 10/28/23 22:18 10/28/23 22:09 10/28/23 21:51 10/28/23 21:42 10/28/23 19:45 5 10/28/23 19:27 10/28/23 19:24 10/28/23 19:24 3 10/28/23 19:24 10/28/23 19:24 3 10/28/23 19:24 3 Laboratory Results Laboratory Results WBC 12.28 K/ul (4.8-10.8) H 10/28/23 19:45 RBC 4.85 M/uL (4.70-6.10) 10/28/23 19:45 Hgb 15.0 g/dl (14.0-18.0) 10/28/23 19:45 Hct 44.5 % (42.0-52.0) 10/28/23 19:45 MCV 91.8 fL (80.0-100.0) 10/28/23 19:45 MCH 30.9 pg (25.0-34.0) 10/28/23 19:45 MCHC 33.7 g/dL (32.0-36.0) 10/28/23 19:45 RDW Std Deviation 47.0 fL (36.4-46.3) H 10/28/23 19:45 RDW Coeff of Mannie 13.9 % (11.5-14.5) 10/28/23 19:45 Plt Count 185 K/uL (130-400) 10/28/23 19:45 MPV 9.4 fL (9.4-12.4) 10/28/23 19:45 Immature Gran % (Auto) 0.9 % 10/28/23 19:45 Neut % (Auto) 65.3 % 10/28/23 19:45 Lymph % (Auto) 18.5 % 10/28/23 19:45 [place] % (Auto) 11.4 % 10/28/23 19:45 Eos % (Auto) 3.3 % 10/28/23 19:45 Baso % (Auto) 0.6 % 10/28/23 19:45 Neut # (Auto) 8.02 K/uL (1.40-6.50) H 10/28/23 19:45 Lymph # (Auto) 2.27 K/uL (1.20-3.40) 10/28/23 19:45 [place] # (Auto) 1.40 K/uL (0.11-0.59) H 10/28/23 19:45 Eos # (Auto) 0.41 K/uL (0.00-0.50) 10/28/23 19:45 Baso # (Auto) 0.07 K/uL (0.00-0.20) 10/28/23 19:45 Immature Gran # (Auto) 0.11 K/uL (0.01-0.20) 10/28/23 19:45 PT 10.6 Seconds (9.0-12.0) 10/28/23 19:45 INR 1.0 (0.9-1.1) 10/28/23 19:45 VBG pH 7.45 (7.36-7.41) H 10/29/23 00:53 VBG pCO2 52 mmHg (38-50) H 10/29/23 00:53 VBG pO2 69 mmHg 10/29/23 00:53 VBG HCO3 36 mmol/L 10/29/23 00:53 VBG O2 Saturation 94.7 % 10/29/23 00:53 VBG Base Excess 10.2 mEq/L 10/29/23 00:53 Sodium 136 mmol/L (136-145) 10/28/23 19:45 Potassium 3.5 mmol/L (3.5-5.1) 10/28/23 19:45 Chloride 94 mmol/L (98-107) L 10/28/23 19:45 Carbon Dioxide 38 mmol/L (21-32) H 10/28/23 19:45 Anion Gap 4 (3-11) 10/28/23 19:45 BUN 12 mg/dl (6-23) 10/28/23 19:45 Creatinine 1.02 mg/dl (0.6-1.4) 10/28/23 19:45 Est Cr Clr Drug Dosing 53.6 ml/min 10/28/23 19:45 Est GFR ( Amer) 79.0 ml/min 10/28/23 19:45 Est GFR (Non-Af Amer) 68.1 ml/min 10/28/23 19:45 BUN/Creatinine Ratio 11.8 (10-20) 10/28/23 19:45 Glucose 124 mg/dl (70-99(Fasting)) H 10/28/23 19:45 Calcium 9.9 mg/dl (8.6-10.3) 10/28/23 19:45 Magnesium 1.9 mg/dl (1.7-2.4) 10/28/23 19:45 Total Bilirubin 0.6 mg/dl (0.2-1.0) 10/28/23 19:45 AST 18 U/L (13-39) 10/28/23 19:45 ALT 12 U/L (7-52) 10/28/23 19:45 Alkaline Phosphatase 103 U/L (34-104) 10/28/23 19:45 Troponin I High Sens 9.9 pg/ml (0-20) 10/28/23 19:45 B-Natriuretic Peptide 32 pg/ml (0-100) 10/28/23 19:45 Total Protein 7.2 gm/dl (6.0-8.3) 10/28/23 19:45 Albumin 4.4 gm/dl (3.4-5.0) 10/28/23 19:45 Globulin 2.8 gm/dl (2.5-4.0) 10/28/23 19:45 Albumin/Globulin Ratio 1.6 (0.9-2) 10/28/23 19:45 Urine Color Yellow 10/28/23 21:54 Urine Appearance Clear (Clear) 10/28/23 21:54 Urine pH 8.0 (4.5-7.5) H 10/28/23 21:54 Ur Specific [place] > 1.045 (1.000-1.030) H 10/28/23 21:54 Urine Protein Negative (Negative) 10/28/23 21:54 Urine Glucose (UA) Negative (Negative) 10/28/23 21:54 Urine Ketones Negative (Negative) 10/28/23 21:54 Urine Blood Trace (Negative) H 10/28/23 21:54 Urine Nitrite Negative (Negative) 10/28/23 21:54 Urine Bilirubin Negative (Negative) 10/28/23 21:54 Urine Urobilinogen Negative (Negative) 10/28/23 21:54 Ur Leukocyte Esterase Trace (Negative) H 10/28/23 21:54 Urine WBC (Auto) 0-5 /hpf (0-5) 10/28/23 21:54 Urine RBC (Auto) 11-20 /hpf (0-2) H 10/28/23 21:54 U Hyaline Cast (Auto) 0-2 /lpf (0-2) 10/28/23 21:54 U Epithel Cells (Auto) 0-2 /hpf (0-2) 10/28/23 21:54 Urine Bacteria (Auto) None Seen (None Seen) 10/28/23 21:54 Adenovirus (PCR) Not Detected (NotDetected) 10/28/23 19:47 B. pertussis DNA (PCR) Not Detected (NotDetected) 10/28/23 19:47 B.parapertussis DNA PCR Not Detected (NotDetected) 10/28/23 19:47 C. pneumoniae DNA (PCR) Not Detected (NotDetected) 10/28/23 19:47 Coronavirus OC43 (PCR) Not Detected (NotDetected) 10/28/23 19:47 Coronavirus HKU1 (PCR) Not Detected (NotDetected) 10/28/23 19:47 Coronavirus 229E (PCR) Not Detected (NotDetected) 10/28/23 19:47 SARS-CoV-2 (PCR) Not Detected (NotDetected) 10/28/23 19:47 Coronavirus NL63 (PCR) Not Detected (NotDetected) 10/28/23 19:47 Human Metapneumovir PCR Not Detected (NotDetected) 10/28/23 19:47 Influenza Type A (PCR) Not Detected (NotDetected) 10/28/23 19:47 Influenza Type B (PCR) Not Detected (NotDetected) 10/28/23 19:47 M. pneumoniae (PCR) Not Detected (NotDetected) 10/28/23 19:47 Parainfluenza 1 (PCR) Not Detected (NotDetected) 10/28/23 19:47 Parainfluenza 2 (PCR) Not Detected (NotDetected) 10/28/23 19:47 Parainfluenza 3 (PCR) Not Detected (NotDetected) 10/28/23 19:47 Parainfluenza 4 (PCR) Not Detected (NotDetected) 10/28/23 19:47 RSV (PCR) Not Detected (NotDetected) 10/28/23 19:47 Entero/Rhino (PCR) Not Detected (NotDetected) 10/28/23 19:47 Impressions Chest CTA 10/28/23 19:35 Exam(s): CTA CHEST EXAM: CT Angiography Chest With Intravenous Contrast CLINICAL HISTORY: Reason for exam: PE, fall, dizzy, chronic hypoxia. TECHNIQUE: Axial computed tomographic angiography images of the chest with intravenous contrast. CTDI is 25.35 mGy and DLP is 786.77 mGy-cm. Automated exposure control was utilized for the study. A dose lowering technique was utilized adhering to the principles of ALARA. MIP reconstructed images were created and reviewed. COMPARISON: 10/14/22 FINDINGS: Pulmonary arteries: Adequate pulmonary artery opacification. Normal caliber main pulmonary artery. No evidence of pulmonary embolism. Aorta: No acute findings. No aortic aneurysm or dissection. Lungs: Calcified right lower lobe granuloma. Calcified right upper lobe granuloma. Bilateral lower lobe atelectasis. No consolidation or mass. Pleural space: Unremarkable. No significant effusion. No pneumothorax. Heart: Unremarkable. No cardiomegaly. No significant pericardial effusion. Bones/joints: Marked thoracolumbar scoliosis with resultant thoracic cavity deformity. No acute fracture or dislocation. Soft tissues: Unremarkable. Lymph nodes: Calcified hilar lymph nodes in keeping with chronic granulomatous disease. No adenopathy by size criteria. Liver: Calcified hepatic granulomas. Gallbladder and bile ducts: Cholelithiasis. Spleen: Calcified splenic granulomas. IMPRESSION: 1. No evidence of pulmonary embolism. 2. Atelectasis. Electronically signed by: Latasha Langford M.D. 10/28/23 22:[address] 10/28/23 19:36 Exam(s): CT C SPINE EXAM: CT Cervical Spine Without Intravenous Contrast CLINICAL HISTORY: Reason for exam: Trauma. TECHNIQUE: Axial computed tomography images of the cervical spine without intravenous contrast. CTDI is 23.29 mGy and DLP is 469.02 mGy-cm. Automated exposure control was utilized for the study. A dose lowering technique was utilized adhering to the principles of ALARA. COMPARISON: No relevant prior studies available. FINDINGS: Vertebrae: Osteopenia. No acute fracture or subluxation. Discs/spinal canal/neural foramina: Multilevel disc, facet, and uncovertebral joint degeneration. Mild lower cervical central spinal canal narrowing. Varying degrees of foraminal narrowing, greatest on the right at C3-C4, C4-C5, and C5-C6. Soft tissues: Unremarkable. IMPRESSION: No acute findings in the cervical spine. Electronically signed by: Latasha Langford M.D. 10/28/23 22:[address] 10/28/23 19:36 Exam(s): CT HEAD Without Contrast IV Amt: 118ml optiray 320 EXAM: CT Head Without Intravenous Contrast CLINICAL HISTORY: Reason for exam: Trauma, hit back of head. TECHNIQUE: Axial computed tomography images of the head/brain without intravenous contrast. CTDI is 34.46 mGy and DLP is 624.41 mGy-cm. Automated exposure control was utilized for the study. A dose lowering technique was utilized adhering to the principles of ALARA. COMPARISON: No relevant prior studies available. FINDINGS: Brain: Generalized parenchymal volume loss. Periventricular and deep cerebral white matter hypoattenuation suggesting chronic small vessel ischemic change. [place]-white matter differentiation maintained. No hemorrhage, mass effect, parenchymal edema, or midline shift. Ventricles: Unremarkable. No hydrocephalus. Bones/joints: Unremarkable. No acute fracture. Soft tissues: Unremarkable. Vasculature: Intracranial atherosclerosis. Sinuses: Unremarkable as visualized. Mastoid air cells: Unremarkable as visualized. No mastoid effusion. IMPRESSION: No acute intracranial process. Electronically signed by: Latasha Langford M.D. 10/28/23 22:28 PM Diagnostic Findings EKG as per my interpretation :Rate 75, NSR, normal axis, incomplete RBBB, no ischemia, multiple artifacts
[2023-10-29] MEDS ORDERED: PROMETHAZINE 6.25 MG/50.25 ML BAG IV PRN (02:03)
[2023-10-29] MEDS: ACETAMINOPHEN 325 MG TAB PO PRN (02:21)
[2023-10-29] MEDS: NSS + 20MEQ KCL 20 MEQ/1,000 ML BAG IV ONE (02:21)
[2023-10-29] MEDS ORDERED: NITROGLYCERIN SL 0.4 MG/TAB TAB SL PRN (04:11)
[2023-10-29 05:11] LABS: Basophils # (auto) 0.06 K/uL (0.00-0.20); Basophils % (auto) 0.6 %; Eosinophils # (auto) 0.37 K/uL (0.00-0.50); Eosinophils % (auto) 3.5 %; Hematocrit (blood only) 41.6 % (42.0-52.0); Hemoglobin 13.8 g/dl (14.0-18.0); Immature Granulocytes # (auto) 0.09 K/uL (0.01-0.20); Immature Granulocytes % (auto) 0.8 %; Lymphocytes # (auto) 2.58 K/uL (1.20-3.40); Lymphocytes % (auto) 24.1 %; Mean Corpuscular Hemoglobin 30.3 pg (25.0-34.0); Mean Corpuscular Hgb Conc 33.2 g/dL (32.0-36.0); Mean Corpuscular Volume 91.4 fL (80.0-100.0); Mean Platelet Volume 9.9 fL (9.4-12.4); Monocytes # (auto) 1.38 K/uL (0.11-0.59); Monocytes % (auto) 12.9 %; Neutrophils # (auto) 6.21 K/uL (1.40-6.50); Neutrophils % (auto) 58.1 %; Platelet Count 163 K/uL (130-400); RDW Coefficient of Variation 14.2 % (11.5-14.5); RDW Standard Deviation 47.8 fL (36.4-46.3); Red Blood Count 4.55 M/uL (4.70-6.10); White Blood Count 10.69 K/ul (4.8-10.8)
[2023-10-29 05:25] LABS: BUN Creatinine Ratio 13.8 (10-20); Calcium 9.7 mg/dl (8.6-10.3); Creatinine Clr Calc Pharmacy 62.8 ml/min; Est GFR (African American) 93.2 ml/min; Est GFR (Non-African American) 80.4 ml/min; Potassium 3.5 mmol/L (3.5-5.1)
[2023-10-29] MEDS: PANTOprazole 40 MG TAB PO SCH (06:37)
[2023-10-29] MEDS: LEVOTHYROXINE SODIUM 112 MCG TABLET PO SCH (06:37)
[2023-10-29] MEDS: DULoxetine HCL 60 MG CAP PO SCH (08:36)
[2023-10-29] MEDS: ROSUVASTATIN CALCIUM 5 MG TAB PO SCH (08:36)
[2023-10-29] MEDS: MONTELUKAST SODIUM 10 MG TABLET PO SCH (08:36)
[2023-10-29] MEDS: PROPRANOLOL HCL 20 MG TAB PO SCH (08:36)
[2023-10-29] MEDS: CITALOPRAM 20 MG TAB PO SCH (08:36)
--- NOTE | 2023-10-29 08:58 | CT Scan Report ---
CT head/brain wo con CLINICAL HISTORY: 83 years-old Male with head trauma, ffup. Acute head trauma TECHNIQUE: Multiple axial CT images of the head were obtained without contrast. A dose lowering tech nique was utilized adhering to the principles of ALARA. CT DOSE: 625.8 mGy.cm COMPARISON: Head CT 10/28/2023, 07/03/2023 FINDINGS: No acute intracranial hemorrhage, midline shift, intracranial mass, hydrocephalus, territorial ischem ia or abnormal extra-axial collection. Involutional changes with chronic microvascular ischemic disea se. The calvarium is intact. Mastoid air cells are clear. Mucosal thickening of the right-sided ethmoid air cells. Unremarkable soft tissues. Prior bilateral lens repair. IMPRESSION: No acute intracranial abnormality or calvarial fracture. ACT 112: Negative or not required by law. The above report was generated using voice recognition software. It may contain grammatical, syntax o r spelling errors. Electronically signed by: Michael Fofana M.D. 10/29/2023 8:56 AM
--- NOTE | 2023-10-29 09:20 | XRay Report ---
XR chest 1V portable HISTORY: 83 years-old Male fall, dizzy, sob acute chest trauma status post fall COMPARISON: CTA chest of same day TECHNIQUE: AP view of the chest FINDINGS: Cardiac silhouette is enlarged. Mild right hemidiaphragmatic elevation. Calcified hilar lymph nodes w ith a few scattered calcified pulmonary granulomata. Mild linear subsegmental bibasilar densities wit hout pneumothorax, or pleural effusion. Sigmoidal thoracolumbar scoliosis. IMPRESSION: 1. Cardiomegaly with mild bibasilar atelectasis. 2. Prior granulomatous disease. 3. Sigmoidal thoracolumbar scoliosis. ACT 112: Negative or not required by law. The above report was generated using voice recognition software. It may contain grammatical, syntax o r spelling errors. Electronically signed by: Michael Fofana M.D. 10/29/2023 9:19 AM
--- NOTE | 2023-10-29 14:22 | Hospitalist Progress Note ---
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 Dizziness Pre-syncope Rule out orthostasis. Check orthostatic vitals. 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 SCDs Re: Head trauma Dispo: pending PT/OT recs Admission and Anticipated Discharge Date Admission Date: October 29, 2023 Subjective pt was seen laying in bed. Resting comfortably. Denied current dizziness, but notes he has not been up walking much Review of Systems Review of Systems: All systems reviewed & are unremarkable except as noted in Subjective Physical Exam Physical Exam: General: Alert, oriented. No acute distress Psych: Appropriate mood and affect Neuro: weakness, no facial droop, some slurring of words HEENT: NC/AT Chest: Nontender to palpation. CV: RRR Resp: Breath sounds clear bilaterally, no increased effort of breathing. Abdomen: Soft, nontender, nondistended Extremities: No edema in lower extremities bilaterally. Results & Data Results & Data Vital Signs (Past 12 Hours) Vital Signs Temp Pulse Pulse Pulse Resp BP BP 10/29/23 12:06 36.7 C 67 16 113/65 10/29/23 10:13 63 10/29/23 08:32 36.6 C 65 16 137/84 10/29/23 06:55 59 L 10/29/23 05:47 62 20 146/78 H 10/29/23 04:01 64 10/29/23 02:24 66 18 141/92 H Pulse Ox O2 Del Method O2 Flow Rate 10/29/23 12:06 93 Room Air 10/29/23 10:13 10/29/23 08:32 93 Room Air 10/29/23 06:55 10/29/23 05:47 94 Nasal Cannula 3 10/29/23 04:01 10/29/23 02:24 94
[2023-10-29] MEDS: GADOBUTROL 65ML VIAL IV ONE (17:37)
--- NOTE | 2023-10-29 17:55 | Magnetic Resonance Report ---
MR brain wo/w con HISTORY: 83 years-old Male persistent dizziness, syncope acute strokelike symptoms with dizziness COMPARISON: Head CT of same day TECHNIQUE: Multiplanar multisequence MRI the brain was obtained with and without IV contrast FINDINGS: No restricted diffusion. No acute intracranial hemorrhage, midline shift, abnormal extra-axial collec tion, hydrocephalus or intra-axial mass. Involutional changes. Extensive and confluent T2/FLAIR hyper intense foci throughout the white matter compatible with chronic microvascular ischemic disease. No a bnormal enhancement. Cerebral venous sinuses and major arterial flow voids are patent prior bilateral lens repair. Mastoid air cells are clear. Mild leftward bowing and spurring of the nasal septum. IMPRESSION: 1. No acute intracranial abnormality. No acute or subacute infarct. 2. No abnormal enhancement. ACT 112: Negative or not required by law. The above report was generated using voice recognition software. It may contain grammatical, syntax o r spelling errors. Electronically signed by: Michael Fofana M.D. 10/29/2023 5:53 PM
[2023-10-29] MEDS: KETOROLAC TROMETHAMINE 15 MG/ML VIAL IV ONE (20:06)
[2023-10-29] MEDS ORDERED: TAMSULOSIN HCL 0.4 MG CAP PO SCH (21:00)
[2023-10-30 07:06] LABS: Hematocrit (blood only) 42.7 % (42.0-52.0); Hemoglobin 14.1 g/dl (14.0-18.0); Mean Corpuscular Hemoglobin 30.9 pg (25.0-34.0); Mean Corpuscular Volume 93.4 fL (80.0-100.0); Mean Platelet Volume 9.5 fL (9.4-12.4); Platelet Count 148 K/uL (130-400); RDW Coefficient of Variation 14.2 % (11.5-14.5); RDW Standard Deviation 48.3 fL (36.4-46.3); Red Blood Count 4.57 M/uL (4.70-6.10); White Blood Count 10.33 K/ul (4.8-10.8)
[2023-10-30 07:27] LABS: BUN Creatinine Ratio 15.2 (10-20); Calcium 9.4 mg/dl (8.6-10.3); Creatinine Clr Calc Pharmacy 53.8 ml/min; Est GFR (African American) 89.5 ml/min; Est GFR (Non-African American) 77.2 ml/min; Magnesium 1.9 mg/dl (1.7-2.4); Phosphorus 3.8 mg/dl (2.5-4.9); Potassium 4.1 mmol/L (3.5-5.1)
[2023-10-30] MEDS ORDERED: MECLIZINE 12.5 MG TAB PO PRN (15:16)
--- NOTE | 2023-10-30 15:20 | Hospitalist Progress Note ---
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 Dizziness Pre-syncope Rule out orthostasis. Check orthostatic vitals. 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 SCDs Re: Head trauma Dispo: pending PT/OT recs- recommending home with services Admission and Anticipated Discharge Date Admission Date: October 29, 2023 Subjective pt was seen sitting in chair at bedside. Resting comfortably. Denied current dizziness, but notes it occurs when he gets up. notes a chronic hx of this. Asking for "pain pill" for his back. Review of Systems Review of Systems: All systems reviewed & are unremarkable except as noted in Subjective Physical Exam Physical Exam: General: Alert, oriented. No acute distress Psych: Appropriate mood and affect Neuro: weakness, no facial droop, slow speech HEENT: NC/AT Chest: Nontender to palpation. CV: RRR Resp: Breath sounds clear bilaterally, no increased effort of breathing. Abdomen: Soft, nontender, nondistended Extremities: No edema in lower extremities bilaterally. Results & Data Results & Data Vital Signs (Past 12 Hours) Vital Signs Temp Pulse Pulse Resp BP BP Pulse Ox 10/30/23 11:36 36.7 C 61 17 121/78 91 10/30/23 08:21 36.6 C 61 18 130/78 92 10/30/23 07:35 64 10/30/23 04:00 36.5 C 64 18 145/70 H 93 O2 Del Method O2 Flow Rate 10/30/23 11:36 Nasal Cannula 3 10/30/23 08:21 Nasal Cannula 3 10/30/23 07:35 10/30/23 04:00 Nasal Cannula 4
[2023-10-30] MEDS: LIDOCAINE 5% 1 PATCH TD SCH (16:32)
[2023-10-30 16:35] VITALS: RESP 18
--- NOTE | 2023-10-30 21:00 | Electrocardiogram Report ---
Test Reason : Blood Pressure : */* mmHG Vent. Rate : 73 BPM Atrial Rate : 73 BPM P-R Int : 160 ms QRS Dur : 86 ms QT Int : 376 ms P-R-T Axes : 55 69 87 degrees QTcB Int : 414 ms Poor data quality, interpretation may be adversely affected Normal sinus rhythm Cannot rule out Septal infarct (cited on or before 08-Dec-2022) Abnormal ECG When compared with ECG of 03-Jul-2023 07:47, No significant change Confirmed by Gaston Cannon ([id number]) on 10/30/2023 9:00:16 PM Referred By: REFERRED SELF Confirmed By: Gaston Cannon
[2023-10-31] MEDS: KETOROLAC TROMETHAMINE 15 MG/ML VIAL IV PRN (00:54)
[2023-10-31 07:10] LABS: Hematocrit (blood only) 40.4 % (42.0-52.0); Hemoglobin 13.6 g/dl (14.0-18.0); Mean Corpuscular Hemoglobin 30.7 pg (25.0-34.0); Mean Corpuscular Hgb Conc 33.7 g/dL (32.0-36.0); Mean Corpuscular Volume 91.2 fL (80.0-100.0); Mean Platelet Volume 9.6 fL (9.4-12.4); Platelet Count 151 K/uL (130-400); RDW Coefficient of Variation 14.3 % (11.5-14.5); RDW Standard Deviation 47.9 fL (36.4-46.3); Red Blood Count 4.43 M/uL (4.70-6.10); White Blood Count 10.39 K/ul (4.8-10.8)
[2023-10-31 07:21] LABS: BUN Creatinine Ratio 13.3 (10-20); Calcium 9.5 mg/dl (8.6-10.3); Creatinine Clr Calc Pharmacy 50.6 ml/min; Est GFR (African American) 82.9 ml/min; Est GFR (Non-African American) 71.5 ml/min; Phosphorus 3.7 mg/dl (2.5-4.9); Potassium 4.2 mmol/L (3.5-5.1)
[2023-10-31 07:45] VITALS: TEMP 97.5
--- OUTSIDE RECORDS SUMMARY | 2023-10-31 11:40 | External Medical Summary | Summary of Care ---
Author Name Unknown Organization [facility] Address [address] [facility] [place] [address] Phone [phone] Care Team Providers Care Campus Recruiting Coordinator Name Role Phone Jennifer Sarkar MD Primary Care Provider [phone] Encounter Details Date Type Department Care Team (Late st Contact Info) Description 10/29/2023 Orders Only PATIENT PORTAL DO NOT DELETE THIS DEPT USED BY [place] [id number] Allergies Active Allergy Reactions Criticality Noted Date Comments Food (See Comments) 03/21/2018 Other reaction(s): WAS TOLD NOT TO TAKE grapefruit Tramadol Other (Please comment) High 10/06/2020 Hallucinations documented as of this encounter (statuses as of 10/29/2023) Medications Medication Sig Dispensed Refills Start Date [...] Active Additional Information Patient taking differently:1,000 mg [id number] PRN, ,may take 3rd dose in between [...] Oral Tablet (Lasix)Indications:Co ronary artery disease involving muscogee coronary artery of muscogee heart without angina pectoris,Chronic right-sided heart failure [...] as of this encounter (statuses as of 10/29/2023) Active Problems Problem Noted Date Diagnosed Date Hypercalcemia 12/03/2022 Supplemental oxygen dependent 05/06/2022 Nasal septal perforation 05/06/2022 Chronic respiratory failure with hypoxia 022 Granulomatous lung disease 09/18/2021 Chronic rhinitis 06/10/2021 Schatzki's ring of distal esophagus 06/10/2021 Chronic right-sided heart failure 04/08/2020 Coronary artery disease invo lving muscogee coronary artery of muscogee heart without angina pectoris 11/21/2018 Abnormality of [...] Overview: 3 LPM at bedtime [facility] [employer] SPINAL STENOSIS-LUMBAR 07/29/2005 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 Essential tremor documented as of this encounter (statuses as of 10/29/2023) Resolved Problems Problem Noted Date Diagnosed Date [...] and draped in usual sterile manner. 14 Irish flexible cystoscope inserted into urethra and [...] as of this encounter (statuses as of 10/29/2023) Immunizations Name Administration Dates Next Due COVID-19 mRNA, LNP-s, No Pre serve, 2-Dose Series ([employer]) 05/14/2020,04/18/2020 H1N1 2009 Influenza, IM 04/22/2009 PPD [...] 12:20 PM EDT Office Visit Pulmonary Medicine, Health system [address] [facility] [place] [address] Bashir Harding MD [address] [place] [id number] 11/30/2023 12:30 PM EDT Office Visit Orthopaedics Health system [address] [facility] [place] [id number] Ely Cabrales MD [address] [facility] [place] [address] 12/20/2023 9:45 AM EDT Office Visit Urology, Health system [address] [place] [address] Man Gu MD [address] [place] [id number] 12/26/2023 11:20 AM EST [facility] [place] [address] [place] [address] Jennifer Sarkar MD [address] [place] [id number] 03/16/2024 2:00 PM EST Office Visit Cardiology, Health system [address] [place] [address] Job Bravo PA-C [address] [facility] [place] [id number] Scheduled Procedures Name Priority Associated Diagnoses Date/Ti [...] D LEVEL ONCE IN A LIFETIME-USE SMARTSET# [id number] Completed 10/20/2023, 08/17/2023, 12/01/2022, Additional history exists [...] this encounter Medical Devices Implanted Type Area Voice Instructor Device Identifier Shelf Expiration Date Model / Serial / Lot Lens Intraoc 23.0 - [id number] - [id number] Implanted:Qty: 1 on 12/21/2016 by Raj Bernard MD at [facility] Left: Eye [employer] 06/20/2021 [id number] / [id number] / Lens Intraoc 22.0 - [id number] - [id number] Implanted:Qty: 1 on 01/06/2017 by Raj Bernard MD at [facility] Right: Eye [employer] 08/20/2021 [id number] / [id number] / [id number] documented as of this encounter Advance Directives [...] Power of Attor bj? No Care Teams Campus Recruiting Coordinator Relationship Specialty Start Date End Date Jennifer Sarkar MD [address] [place] [id number] PCP - General Internal Medicine 10/06/20 documented as of this encounter
[2023-10-31 11:42] VITALS: O2SAT 93
--- NOTE | 2023-10-31 15:06 | Discharge Summary ---
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 Dizziness Fall Rule out orthostasis. Check orthostatic vitals. IVF Head trauma resulting from above head CT x2 with no acute pathology Brain MRI with no acute finding Lyme screen negative Covid and respiratory testing negative EKG NSR, Echo 2022, chronic right-sided heart failure, (EF 55 to 60%) Held home diuretic with home flomax, resumed on discharge. PCP followup for continued management in setting of above. 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 Patient felt lightheaded and dizzy after coming out of a diner yesterday. Denies unusual chest pain or SOB. [place] like he was going to pass out. Patient thinks he is not drinking enough water. Patient fell backwards hitting his head. No LOC. Patient brought to ER for evaluation. MEDICAL HISTORY: As above. SURGERIES: Hernia surgery, foot surgery, ESWL, tonsillectomy, cataract surgeries, urologic procedures FAMILY HISTORY: Lung cancer, DM PERSONAL SOCIAL HISTORY: Past tobacco use. 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 No acute distress Psych: Appropriate mood and affect Neuro: weakness, no facial droop, slow speech HEENT: NC/AT Chest: Nontender to palpation. CV: RRR Resp: Breath sounds clear bilaterally, no increased effort of breathing. Abdomen: Soft, nontender, nondistended Extremities: No edema in lower extremities bilaterally. Updated Medication List Medication Instructions Recorded Confirmed Type acetaminophen 500 mg tablet 1,000 mg (2 x 500 mg) PO Q8H PRN 07/13/23 10/29/23 Rx (Tylenol Extra Strength) fever or pain #90 tabs albuterol sulfate 90 mcg/actuation 2 puff inhalation Q6H PRN 07/13/23 10/29/23 Rx aerosol inhaler Shortness Of Breath Or Wheezing #8.5 grams benzonatate 100 mg capsule 100 mg PO TID PRN Cough #90 caps 07/13/23 10/29/23 Rx citalopram 40 mg tablet 20 mg (1/2 x 40 mg) PO QAM #30 tabs 07/13/23 10/29/23 Rx clopidogrel 75 mg tablet (Plavix) See Rx Instructions .Route 07/13/23 10/29/23 Rx .COMPLEX #30 tabs duloxetine 30 mg capsule,delayed 60 mg (2 x 30 mg) PO QAM Pain #30 07/13/23 10/29/23 Rx release caps furosemide 20 mg tablet 20 mg PO QAM #30 tabs 07/13/23 10/29/23 Rx ipratropium 20 mcg-albuterol 100 1 puff inhalation QID #4 grams 07/13/23 10/29/23 Rx mcg/actuation mist for inhalation levothyroxine 112 mcg tablet 112 mcg PO DAILYBB #30 tabs 07/13/23 10/29/23 Rx montelukast 10 mg tablet 10 mg PO QAM #30 tabs 07/13/23 10/29/23 Rx (Singulair) nitroglycerin 0.4 mg sublingual 1 tab sublingual UD PRN Angina #30 07/13/23 10/29/23 Rx tablet tabs pantoprazole 20 mg tablet,delayed 20 mg PO DAILYBB #30 tabs 07/13/23 10/29/23 Rx release propranolol 20 mg tablet 20 mg PO TID #90 tabs 07/13/23 10/29/23 Rx rosuvastatin 5 mg tablet 5 mg PO QAM #30 tabs 07/13/23 10/29/23 Rx sodium chloride-aloe vera nasal 1 applic intranasal BID PRN Dry 07/13/23 10/29/23 Rx gel (Saline Nasal (aloe vera) gel) Nasal Passages #14.1 grams tamsulosin 0.4 mg capsule 0.4 mg PO HS #30 caps 07/13/23 10/29/23 Rx Hospital Stay Data Consultations 10/29/23 00:28 ED Decision to Admit Stat Diagnostic Imagining Performed 10/28/23 19:35 CT angio chest PE protocol Stat 10/28/23 19:36 CT cervical spine wo con Stat CT head/brain wo con Stat 10/29/23 07:30 CT head/brain wo con Urgent 10/29/23 16:08 MRI Brain [MR brain wo/w con] Routine Chest CTA 10/28/23 19:35 Exam(s): CTA CHEST EXAM: CT Angiography Chest With Intravenous Contrast CLINICAL HISTORY: Reason for exam: PE, fall, dizzy, chronic hypoxia. TECHNIQUE: Axial computed tomographic angiography images of the chest with intravenous contrast. CTDI is 25.35 mGy and DLP is 786.77 mGy-cm. Automated exposure control was utilized for the study. A dose lowering technique was utilized adhering to the principles of ALARA. MIP reconstructed images were created and reviewed. COMPARISON: 10/14/22 FINDINGS: Pulmonary arteries: Adequate pulmonary artery opacification. Normal caliber main pulmonary artery. No evidence of pulmonary embolism. Aorta: No acute findings. No aortic aneurysm or dissection. Lungs: Calcified right lower lobe granuloma. Calcified right upper lobe granuloma. Bilateral lower lobe atelectasis. No consolidation or mass. Pleural space: Unremarkable. No significant effusion. No pneumothorax. Heart: Unremarkable. No cardiomegaly. No significant pericardial effusion. Bones/joints: Marked thoracolumbar scoliosis with resultant thoracic cavity deformity. No acute fracture or dislocation. Soft tissues: Unremarkable. Lymph nodes: Calcified hilar lymph nodes in keeping with chronic granulomatous disease. No adenopathy by size criteria. Liver: Calcified hepatic granulomas. Gallbladder and bile ducts: Cholelithiasis. Spleen: Calcified splenic granulomas. IMPRESSION: 1. No evidence of pulmonary embolism. 2. Atelectasis. Electronically signed by: Latasha Langford M.D. 10/28/23 22:[address] 10/28/23 19:36 Exam(s): CT C SPINE EXAM: CT Cervical Spine Without Intravenous Contrast CLINICAL HISTORY: Reason for exam: Trauma. TECHNIQUE: Axial computed tomography images of the cervical spine without intravenous contrast. CTDI is 23.29 mGy and DLP is 469.02 mGy-cm. Automated exposure control was utilized for the study. A dose lowering technique was utilized adhering to the principles of ALARA. COMPARISON: No relevant prior studies available. FINDINGS: Vertebrae: Osteopenia. No acute fracture or subluxation. Discs/spinal canal/neural foramina: Multilevel disc, facet, and uncovertebral joint degeneration. Mild lower cervical central spinal canal narrowing. Varying degrees of foraminal narrowing, greatest on the right at C3-C4, C4-C5, and C5-C6. Soft tissues: Unremarkable. IMPRESSION: No acute findings in the cervical spine. Electronically signed by: Latasha Langford M.D. 10/28/23 22:[address] 10/28/23 19:36 Exam(s): CT HEAD Without Contrast IV Amt: 118ml optiray 320 EXAM: CT Head Without Intravenous Contrast CLINICAL HISTORY: Reason for exam: Trauma, hit back of head. TECHNIQUE: Axial computed tomography images of the head/brain without intravenous contrast. CTDI is 34.46 mGy and DLP is 624.41 mGy-cm. Automated exposure control was utilized for the study. A dose lowering technique was utilized adhering to the principles of ALARA. COMPARISON: No relevant prior studies available. FINDINGS: Brain: Generalized parenchymal volume loss. Periventricular and deep cerebral white matter hypoattenuation suggesting chronic small vessel ischemic change. [place]-white matter differentiation maintained. No hemorrhage, mass effect, parenchymal edema, or midline shift. Ventricles: Unremarkable. No hydrocephalus. Bones/joints: Unremarkable. No acute fracture. Soft tissues: Unremarkable. Vasculature: Intracranial atherosclerosis. Sinuses: Unremarkable as visualized. Mastoid air cells: Unremarkable as visualized. No mastoid effusion. IMPRESSION: No acute intracranial process. Electronically signed by: Latasha Langford M.D. 10/28/23 22:28 PM Chest X-Ray 10/28/23 19:39 XR chest 1V portable HISTORY: 83 years-old Male fall, dizzy, sob acute chest trauma status post fall COMPARISON: CTA chest of same day TECHNIQUE: AP view of the chest FINDINGS: Cardiac silhouette is enlarged. Mild right hemidiaphragmatic elevation. Calcified hilar lymph nodes with a few scattered calcified pulmonary granulomata. Mild linear subsegmental bibasilar densities without pneumothorax, or pleural effusion. Sigmoidal thoracolumbar scoliosis. IMPRESSION: 1. Cardiomegaly with mild bibasilar atelectasis. 2. Prior granulomatous disease. 3. Sigmoidal thoracolumbar scoliosis. ACT 112: Negative or not required by law. The above report was generated using voice recognition software. It may contain grammatical, syntax or spelling errors. Electronically signed by: Michael Fofana M.D. 10/29/2023 9:[address] 10/29/23 07:30 CT head/brain wo con CLINICAL HISTORY: 83 years-old Male with head trauma, ffup. Acute head trauma TECHNIQUE: Multiple axial CT images of the head were obtained without contrast. A dose lowering technique was utilized adhering to the principles of ALARA. CT DOSE: 625.8 mGy.cm COMPARISON: Head CT 10/28/2023, 07/03/2023 FINDINGS: No acute intracranial hemorrhage, midline shift, intracranial mass, hydrocephalus, territorial ischemia or abnormal extra-axial collection. Involutional changes with chronic microvascular ischemic disease. The calvarium is intact. Mastoid air cells are clear. Mucosal thickening of the right-sided ethmoid air cells. Unremarkable soft tissues. Prior bilateral lens repair. IMPRESSION: No acute intracranial abnormality or calvarial fracture. ACT 112: Negative or not required by law. The above report was generated using voice recognition software. It may contain grammatical, syntax or spelling errors. Electronically signed by: Michael Fofana M.D. 10/29/2023 8:56 AM Brain MRI 10/29/23 16:08 MR brain wo/w con HISTORY: 83 years-old Male persistent dizziness, syncope acute strokelike symptoms with dizziness COMPARISON: Head CT of same day TECHNIQUE: Multiplanar multisequence MRI the brain was obtained with and without IV contrast FINDINGS: No restricted diffusion. No acute intracranial hemorrhage, midline shift, abnormal extra-axial collection, hydrocephalus or intra-axial mass. Involutional changes. Extensive and confluent T2/FLAIR hyperintense foci throughout the white matter compatible with chronic microvascular ischemic disease. No abnormal enhancement. Cerebral venous sinuses and major arterial flow voids are patent prior bilateral lens repair. Mastoid air cells are clear. Mild leftward bowing and spurring of the nasal septum. IMPRESSION: 1. No acute intracranial abnormality. No acute or subacute infarct. 2. No abnormal enhancement. ACT 112: Negative or not required by law. The above report was generated using voice recognition software. It may contain grammatical, syntax or spelling errors. Electronically signed by: Michael Fofana M.D. 10/29/2023 5:53 PM Discharge Instructions Given to Patient (Per Discharging Provider) Mr. Starks, You are being discharged home with home health services. Your symptoms have resolved and/or improved. Please resume all your home medications after discharge. Please continue with physical therapy services at home. Please keep close follow up with your primary care provider after discharge. Please do not hesitate to come back to the emergency room if your symptoms worsen or return. It was a pleasure taking care of you while you were here. Total Time Total Time Spent Total Time Spent (In Minutes): 75
[2023-10-31 16:05] VITALS: BP 131/82; PULSE 62
== END 2023-10-31 15:40 | disposition home health service (06) ==
LOC: ED 19:20 → EDINP 19:20 → 2N 10-29 07:58

== ENCOUNTER 2023-12-25 23:31 | Observation (INO) ==
--- OUTSIDE RECORDS SUMMARY | 2023-12-25 23:41 | External Medical Summary | Summary of Care ---
Author Name Unknown Organization [facility] Address [address] [facility] [place] [address] Phone [phone] Care Team Providers Care Seed Collector Name Role Phone Jennifer Sarkar MD Primary Care Provider [phone] Encounter Details Date Type Department Care Team (Late st Contact Info) Description 12/22/2023 Telephone Urology, [facility] 132 [facility] [place] [address] Man Gu MD 27 [facility] [place] [address] Allergies Active Allergy Reactions Criticality Noted Date Comments Food (See Comments) 03/21/2018 Other reaction(s): WAS TOLD NOT TO TAKE grapefruit Tramadol Other (Please comment) High 10/06/2020 Hallucinations documented as of this encounter (statuses as of 12/22/2023) Medications Medication Sig Dispensed Refills Start Date [...] Active Additional Information Patient taking differently:1,000 mg [id number] PRN, ,may take 3rd dose in between --12/21/2021, Reported on 12/21/2022 Saline Nasal Gel (Nasogel)Indications: Chronic respiratory failure [...] before bedtime. 270 Tablet 3 4 Active Furosemide 40 MG Oral Tablet (Lasix)Indications:Co ronary artery disease involving shoshone-bannock coronary artery of shoshone-bannock heart without angina pectoris,Chronic right-sided heart failure (HCC),Bilateral leg edema,Encounter for monitoring diuretic therapy 40 mg in the AM and 20 mg in the early afternoon 135 Tablet 3 4 Active Levothyroxine Sodium 112 MCG Oral [...] FROM 06/23/2023. 90 Capsule 3 4 Active Rosuvastatin Calcium 5 MG Oral Tablet (Crestor)Indications: Dyslipidemia, goal LDL below 100,S/P primary angioplasty with coronary stent TAKE 1 TABLET BY MOUTH EVERY DAY 30 Tablet 5 4 Active Albuterol Sulfate HFA 108 (90 Base) MCG/ACT Inhalation Aerosol Solution Inhale 2 Puffs by mouth every 6 hours as needed for Wheezing or Dyspnea. 18 g 11 4 09/04/19 25 Active Combivent Respimat 20-100 MCG/ACT Inhalation Aerosol Solution (Ipratropium-Albutero l)Indications:Granulo matous lung disease (HCC),Chronic respiratory failure with hypoxia (HCC) Inhale 1 Puff by mouth in the morning and 1 Puff at noon and 1 Puff in the evening and 1 Puff before bedtime. 12 g 2 4 08/05/19 25 Active Dutasteride 0.5 MG Oral Capsule (Avodart) Take 1 Capsule by mouth in the morning. 90 Capsule 3 4 Active documented as of this encounter (statuses as of 12/22/2023) Active Problems Problem Noted Date Diagnosed Date Hypercalcemia 12/03/2022 Supplemental oxygen dependent 05/06/2022 Nasal septal perforation 05/06/2022 Chronic respiratory failure with hypoxia 022 Granulomatous lung disease 09/18/2021 Chronic rhinitis 06/10/2021 Schatzki's ring of distal esophagus 06/10/2021 Chronic right-sided heart failure 04/08/2020 Coronary artery disease invo lving shoshone-bannock coronary artery of shoshone-bannock heart without angina pectoris 11/21/2018 Abnormality of [...] as of this encounter (statuses as of 12/22/2023) Resolved Problems Problem Noted Date Diagnosed Date [...] and draped in usual sterile manner. 14 Greenlandic flexible cystoscope inserted into urethra and guided [...] as of this encounter (statuses as of 12/22/2023) Immunizations Name Administration Dates Next Due COVID-19 mRNA, LNP-s, No Pre serve, 2-Dose Series (kooldiner) 05/14/2020,04/18/2020 H1N1 2009 Influenza, IM 04/22/2009 PPD 01/18/2023, 3,11/22/2022,11/13,08/20/2020,08/11/2020 Pneumococcal Conjugate Vacc, 13 Valent (Prevnar) 11/12/2014 Pneumococcal Polysaccharide PPV23 (Pneumovax) 07/20/2007 Season Influenza, Quad, PF, Adjuvanted, 65+ Yrs, IM (FLUAD) 11/29/2019 Seasonal Influenza Vac., MDV , IM, 0.5 mL (Fluzone) 11/12/2014,11/26/2013,10/31/2012,01/20,11/10/2010,12/23/2009,12/18/2008 ,12/14/2007,01/03/2007,12/15/2005 Seasonal Influenza, High Dos e, Trivalent, PF, IM (Fluzone HD) 10/25/2023 Seasonal Influenza, PF, 6 M & above, IM , (FluLaval or Fluzone) 04/06/2022,11/21/2017,11/29/2016 Seasonal Influenza, Quadriva lent Hd (Fluzone Hd) 11/22/2022,04/06/2022,12/09/2020 Seasonal Influenza, Quadriva lent, No Preserve, IM 12/25/2015,04/22/2009 Seasonal Influenza, Trivalen t, Adjuvanted, 65+ YRS, [...] Telephone Encounter - Hien Buchanan LPN - 12/22/2023 1:31 PM EDT Spoke with pt, aware of results, no further questions. * Telephone Encounter - Hien Buchanan LPN - 12/22/2023 10:23 AM EDT ----- Message from Man Gu MD sent at 12/21/2023 3:59 PM EDT ----- Okay to notify pt PSA improved. Thx, HM documented in this encounter Plan of Treatment Upcoming Encounters Date Type Department Care Team (Late st Contact Info) Description 12/26/2023 11:20 AM EST Office Visit General Internal Medicine [facility] [address] [place] [address] Jennifer Sarkar MD [address] [place] [address] 03/16/2024 2:00 PM EST Office Visit Cardiology, [facility] [address] [place] [address] Job Bravo PA-C 132 [place] [address] 03/21/2024 10:30 AM EST Office Visit Orthopaedics [facility] 132 [facility] [place] [address] Ely Cabrales MD [address] [place] [address] 04/18/2024 3:30 PM EST Procedure Only Urology, [facility] 132 [facility] [place] [address] Man Gu MD [address] [place] [phone] 05/14/2024 12:20 PM EDT Office Visit Pulmonary Medicine, [facility] 132 [facility] [place] [address] Bashir Harding MD [address] [place] [address] Scheduled Procedures Name Priority Associated Diagnoses Date/Ti me COLONOSCOPY FLEXIBLE PROXIMAL DIAGNOSTIC Recall History of colon polyps Health Maintenance Due Date Last Done Comments Adult Wellness Visit 11/29/2017 11/29/2016 Colonoscopy 06/03/2022 06/03/2017, 02/01/2007 Depression Monitoring 09/09/2022 09/09/2021 COVID-19 Vaccine ( season) 2023 05/14/2020, 04/18/2020 Albumin/Creatinine Ratio 09/09/2024 09/09/2021, 09/22 GFR 12/19/2024 12/20/2023, 09/22, 09/08/2023, Additional history exists TSH 12/19/2024 12/20/2023, 04/2023, 03/23/2023, Additional history exists DXA Scan 08/29/2025 08/30/2023, 07/22, 05/24/2017, Additional history exists DTap/Tdap Vaccines (2 - Td or Tdap) 07/19/2028 07/19/2018, 12/14/2007 Pneumococcal Vaccine: 65+ Years Completed 11/12/2014, 07/20/2007, 02/25/2002 RETIRED - COLONOSCOPY-EVERY 5 YRS AGES 18-100 Discontinued 06/03/2017, 02/01/2007 Zoster Vaccines Completed 01/28/2020, 09/17/2019 VITAMIN D LEVEL ONCE IN A LIFETIME-USE SMARTSET# [id number] Completed 10/20/2023, 08/17/2023, 12/01/2022, Additional history exists [...] this encounter Medical Devices Implanted Type Area Fuel Yard Operator Device Identifier Shelf Expiration Date Model / Serial / Lot Lens Intraoc 23.0 - [id number] - [id number] Implanted:Qty: 1 on 12/21/2016 by Raj Bernard MD at OR [facility] Left: Eye BAUSCH [employer] LOMB 06/20/2021 [id number] / [id number] / Lens Intraoc 22.0 - [id number] - [id number] Implanted:Qty: 1 on 01/06/2017 by Raj Bernard MD at OR [facility] Right: Eye BAUSCH & LOMB 08/20/2021 [id number] / [id number] / [id number] documented as of this encounter Advance Directives [...] Power of Attor bj? No Care Teams Seed Collector Relationship Specialty Start Date End Date Jennifer Sarkar MD [address] [place] [address] PCP - General Internal Medicine 10/06/20 documented as of this encounter
--- OUTSIDE RECORDS SUMMARY | 2023-12-25 23:41 | External Medical Summary | Summary of Care ---
Author Name Unknown Organization [facility] Address [address] [facility] [place] [address] Phone [phone] Care Team Providers Care General Education Instructor Name Role Phone Jennifer Sarkar MD Primary Care Provider [phone] Reason for Visit * Reason Onset Date Comments Test Results 12/23/2023 Encounter Details Date Type Department Care Team (Late st Contact Info) Description 12/23/2023 Telephone Nephrology, [facility] [address] [place] [address] Yumiko Philippe MD [address] [place] [address] Test Results Allergies Active Allergy Reactions Criticality Noted Date Comments Food (See Comments) 03/21/2018 Other reaction(s): WAS TOLD NOT TO TAKE grapefruit Tramadol Other (Please comment) High 10/06/2020 Hallucinations documented as of this encounter (statuses as of 12/23/2023) Medications Medication Sig Dispensed Refills Start Date [...] Active Additional Information Patient taking differently:1,000 mg [id number] PRN, ,may take 3rd dose in between [...] Oral Tablet (Lasix)Indications:Co ronary artery disease involving upper sioux coronary artery of upper sioux heart without angina pectoris,Chronic right-sided heart failure [...] as of this encounter (statuses as of 12/23/2023) Active Problems Problem Noted Date Diagnosed Date Hypercalcemia 12/03/2022 Supplemental oxygen dependent 05/06/2022 Nasal septal perforation 05/06/2022 Chronic respiratory failure with hypoxia 022 Granulomatous lung disease 09/18/2021 Chronic rhinitis 06/10/2021 Schatzki's ring of distal esophagus 06/10/2021 Chronic right-sided heart failure 04/08/2020 Coronary artery disease invo lving upper sioux coronary artery of upper sioux heart without angina pectoris 11/21/2018 Abnormality of [...] as of this encounter (statuses as of 12/23/2023) Resolved Problems Problem Noted Date Diagnosed Date [...] and draped in usual sterile manner. 14 [place]ican flexible cystoscope inserted into urethra and guided [...] as of this encounter (statuses as of 12/23/2023) Immunizations Name Administration Dates Next Due COVID-19 mRNA, LNP-s, No Pre serve, 2-Dose Series (HealOr) 05/14/2020,04/18/2020 H1N1 2009 Influenza, IM 04/22/2009 PPD [...] encounter Miscellaneous Notes * Telephone Encounter - Yuliet Winters LPN - 12/23/2023 4:31 PM EDT LMM on identified line that all labs/urine stable per Dr Philippe Pt will return call with any questions or concerns he may have * Telephone Encounter - Yuliet Winters LPN - 12/23/2023 4:30 PM EDT ----- Message from Yumiko Philippe MD sent at 12/23/2023 4:21 PM EDT ----- Kidney labs stable on urine studies; continue same. documented in this encounter Plan of Treatment Upcoming Encounters Date Type Department Care Team (Late st Contact Info) Description 12/26/2023 11:20 AM EST Office Visit General Internal Medicine [facility] [place] [address] [place] [address] Jennifer Sarkar MD [address] [facility] [place] [address] 03/16/2024 2:00 PM EST Office Visit Cardiology, [facility] [address] [place] [address] Job Bravo [place] [address] [place] [address] 03/21/2024 10:30 AM EST Office Visit Orthopaedics [facility] 132 [facility] [place] [address] Ely Cabrales MD 132 [facility] [place] [address] 04/18/2024 3:30 PM EST Procedure Only Urology, [facility] 132 [facility] [place] [address] Man Gu MD [address] [place] [phone] 05/14/2024 12:20 PM EDT Office Visit Pulmonary Medicine, [facility] 132 [facility] [place] [address] Bashir Harding MD [address] [place] [address] Scheduled Procedures Name Priority Associated Diagnoses Date/Ti [...] D LEVEL ONCE IN A LIFETIME-USE SMARTSET# [id number] Completed 10/20/2023, 08/17/2023, 12/01/2022, Additional history exists [...] this encounter Medical Devices Implanted Type Area Pond Tender Device Identifier Shelf Expiration Date Model / Serial / Lot Lens Intraoc 23.0 - [id number] - [id number] Implanted:Qty: 1 on 12/21/2016 by Raj Bernard MD at OR [facility] Left: Eye [employer]USCH [employer] LOMB 06/20/2021 [id number] / [id number] / Lens Intraoc 22.0 - [id number] - [id number] Implanted:Qty: 1 on 01/06/2017 by Raj Bernard MD at OR [facility] Right: Eye BAUSCH [employer] LOMB 08/20/2021 [id number] / [id number] / [id number] documented as of this encounter Advance Directives [...] Power of Attor bj? No Care Teams General Education Instructor Relationship Specialty Start Date End Date Jennifer Sarkar MD [address] [place] [address] PCP - General Internal Medicine 10/06/20 documented as of this encounter
--- OUTSIDE RECORDS SUMMARY | 2023-12-25 23:41 | External Medical Summary | Summary of Care ---
Author Name Unknown Organization [facility] Address [address] [place] [address] Phone [phone] Care Team Providers Care Acid Conditioner Name Role Phone Jennifer Sarkar MD Primary Care Provider [phone] Reason for Visit * Reason Comments Outpatient Testing Encounter Details Date Type Department Care Team (Late st Contact Info) Description 12/20/2023 10:50 AM EDT Laboratory Laboratory, [facility] 132 [facility] [place] [address] [facility] 132 [place] [address] Chronic respiratory failure with hypoxia (HCC); Restrictive lung disease; Severe obstructive sleep apnea; Nocturnal hypoxemia; Coronary artery disease involving little river coronary artery of little river heart without angina pectoris; Acquired hypothyroidism; Dyslipidemia, goal LDL below 70; Senile osteoporosis; Bilateral nephrolithiasis; BPH with obstruction/lower urinary tract symptoms; Elevated prostate specific antigen (PSA); Hematuria, microscopic; Nephrolithiasis; Hyperuricemia; History of UTI; Dysuria Allergies Active Allergy Reactions Criticality Noted Date Comments Food (See Comments) 03/21/2018 Other reaction(s): WAS TOLD NOT TO TAKE grapefruit Tramadol Other (Please comment) High 10/06/2020 Hallucinations documented as of this encounter (statuses as of 12/20/2023) Medications Medication Sig Dispensed Refills Start Date [...] Active Additional Information Patient taking differently:1,000 mg [id number] PRN, ,may take 3rd dose in between [...] Oral Tablet (Lasix)Indications:Co ronary artery disease involving little river coronary artery of little river heart without angina pectoris,Chronic right-sided heart failure [...] as of this encounter (statuses as of 12/20/2023) Active Problems Problem Noted Date Diagnosed Date Hypercalcemia 12/03/2022 Supplemental oxygen dependent 05/06/2022 Nasal septal perforation 05/06/2022 Chronic respiratory failure with hypoxia 022 Granulomatous lung disease 09/18/2021 Chronic rhinitis 06/10/2021 Schatzki's ring of distal esophagus 06/10/2021 Chronic right-sided heart failure 04/08/2020 Coronary artery disease invo lving little river coronary artery of little river heart without angina pectoris 11/21/2018 Abnormality [...] as of this encounter (statuses as of 12/20/2023) Resolved Problems Problem Noted Date Diagnosed Date [...] and draped in usual sterile manner. 14 Montenegrin flexible cystoscope inserted into urethra and guided [...] as of this encounter (statuses as of 12/20/2023) Immunizations Name Administration Dates Next Due COVID-19 mRNA, LNP-s, No Pre serve, 2-Dose Series (Zymeworks) 05/14/2020,04/18/2020 H1N1 2009 Influenza, IM 04/22/2009 PPD [...] AM EST Office Visit General Internal Medicine [facility] [address] [place] [address] Jennifer Sarkar MD [address] [place] [address] 03/16/2024 2:00 PM EST Office Visit Cardiology, [facility] [address] [place] [address] Job Bravo PA-C 132 [place] [address] 03/21/2024 10:30 AM EST Office Visit Orthopaedics [facility] [address] [place] [address] Ely Cabrales MD 132 [place] [address] 04/18/2024 3:30 PM EST Procedure Only Urology, [facility] 132 [facility] [place] [address] Man Gu MD [address] [place] [id number] 05/14/2024 12:20 PM EDT Office Visit Pulmonary Medicine, [facility] 132 [facility] [place] [address] Bashir Harding MD [address] [place] [phone] Pending Results Name Type Priority Associated Diagnoses Date /Time CBC WITH WBC DIFFERENTIAL Lab Routine Chronic respiratory failure with hypoxia (HCC) Restrictive lung disease Severe obstructive sleep apnea Nocturnal hypoxemia 12/20/2023 10:49 AM EDT TSH WITH FREE T4 IF INDICATED Lab Routine Acquired hypothyroidism 12/20/2023 10:49 AM EDT LDL CHOLESTEROL (DIRECT MEASURE) Lab Routine Coronary artery disease involving little river coronary artery of little river heart without angina pectoris Dyslipidemia, goal LDL below 70 12/20/2023 10:49 AM EDT ALT Lab Routine Coronary artery disease involving little river coronary artery of little river heart without angina pectoris Dyslipidemia, goal LDL below 70 12/20/2023 10:49 AM EDT RENAL FUNCTION PANEL Lab Routine Chronic respiratory failure with hypoxia (HCC) Senile osteoporosis Bilateral nephrolithiasis 12/20/2023 10:49 AM EDT PSA WITH FREE PSA IF INDICATED Lab Routine BPH with obstruction/lower urinary tract symptoms 12/20/2023 10:49 AM EDT CBC Lab Routine Chronic respiratory failure with hypoxia (HCC) Restrictive lung disease Severe obstructive sleep apnea Nocturnal hypoxemia 12/20/2023 10:49 AM EDT DIFFERENTIAL, AUTOMATED Lab Routine Chronic respiratory failure with hypoxia (HCC) Restrictive lung disease Severe obstructive sleep apnea Nocturnal hypoxemia 12/20/2023 10:49 AM EDT ALKALINE PHOSPHATASE Lab Routine Coronary artery disease involving little river coronary artery of little river heart without angina pectoris 12/20/2023 10:49 AM EDT PROTEIN Lab Routine Coronary artery disease involving little river coronary artery of little river heart without angina pectoris 12/20/2023 10:49 AM EDT AST Lab Routine Coronary artery disease involving little river coronary artery of little river heart without angina pectoris 12/20/2023 10:49 AM EDT BILIRUBIN, DIRECT Lab Routine Coronary artery disease involving little river coronary artery of little river heart without angina pectoris 12/20/2023 10:49 AM EDT BILIRUBIN, TOTAL Lab Routine Coronary artery disease involving little river coronary artery of little river heart without angina pectoris 12/20/2023 10:49 AM EDT URINALYSIS, REFLEX TO CULTURE (NOT FOR NEUTROPENIC PATIENTS) Lab STAT History of UTI Dysuria BPH with obstruction/lower urinary tract symptoms 12/20/2023 11:05 AM EDT URINALYSIS, REFLEX TO CULTURE (CUP ONLY) Lab STAT History of UTI Dysuria BPH with obstruction/lower urinary tract symptoms 12/20/2023 11:05 AM EDT URINALYSIS, REFLEX TO CULTURE Lab STAT History of UTI Dysuria BPH with obstruction/lower urinary tract symptoms 12/20/2023 11:05 AM EDT Scheduled Procedures Name Priority [...] D LEVEL ONCE IN A LIFETIME-USE SMARTSET# [id number] Completed 10/20/2023, 08/17/2023, 12/01/2022, Additional history exists [...] this encounter Medical Devices Implanted Type Area Beef Cattle Farm Worker Device Identifier Shelf Expiration Date Model / Serial / Lot Lens Intraoc 23.0 - [id number] - [id number] Implanted:Qty: 1 on 12/21/2016 by Raj Bernard MD at OR [facility] Left: Eye BAUSCH & LOMB 06/20/2021 [id number] / [id number] / Lens Intraoc 22.0 - [id number] - [id number] Implanted:Qty: 1 on 01/06/2017 by Raj Bernard MD at OR [facility] Right: Eye BAUSCH & LOMB 08/20/2021 [id number] / [id number] / [id number] documented as of this encounter Visit Diagnoses Diagnosis Chronic respiratory failure with hypoxia (HCC) Chronic respiratory failure Restrictive lung disease Other diseases of lung, not elsewhere classified Severe obstructive sleep apnea Obstructive sleep apnea (adult) (pediatric) Nocturnal hypoxemia Hypoxemia Coronary artery disease involving little river coronary artery of little river heart without angina pectoris Acquired hypothyroidism Unspecified hypothyroidism Dyslipidemia, goal LDL below 70 Other and unspecified hyperlipidemia Senile osteoporosis Bilateral nephrolithiasis BPH with obstruction/lower urinary tract symptoms Hypertrophy of prostate with urinary obstruction and other lower urinary tract symptoms (LUTS) Elevated prostate specific antigen (PSA) Hematuria, microscopic Microscopic hematuria Nephrolithiasis Calculus of kidney Hyperuricemia Other abnormal blood chemistry History of UTI Personal history of urinary (tract) infection Dysuria documented in this encounter Advance Directives [...] Power of Attor bj? No Care Teams Acid Conditioner Relationship Specialty Start Date End Date Jennifer Sarkar MD [address] [place] [address] PCP - General Internal Medicine 10/06/20 documented as of this encounter
--- NOTE | 2023-12-25 23:42 | Emergency Department Note ---
Impression & Plan Generalized weakness, Ambulatory dysfunction, Scoliosis ED Provider Note NAME: BLANCA MAHONEY AGE: 83 SEX: M : 1940 ARRIVES VIA: Ambulance INFORMANT: Patient ED PROVIDER(S): Steve Last MD CHIEF COMPLAINT: Weakness, slipped out of lift chair PLAN: Disposition: Admit MEDICAL DECISION MAKING: The patient is a pleasant 83 gentleman with a past medical history chronic weakness/ambulatory dysfunction with home lift chair and walker, history of chronic right-sided heart failure, mild MR, CAD with history of PCI, chronic respiratory failure secondary to restrictive lung disease/granulomatous disease on home oxygen, EZEQUIEL with CPAP intolerance, nocturnal hypoxemia on nasal cannula at night, hypertension, hypothyroidism, anemia with baseline hemoglobin of 13, essential tremor, anxiety, chronic back pain, prior history of tobacco abuse who presents emergency department via EMS from his home after he had slipped out of his lift chair and could not get up. Patient has hitting his head and losing consciousness. He reports he attempted to get up on his own but was unsuccessful. He does not feel he was on the ground for long before EMS arrived. He denies any new shortness of breath, cough, or congestion from baseline. Denies fevers, chills, GI/ symptoms. On evaluation patient is no distress, afebrile with stable vital signs. He appears clinically ill. He exhibits generalized weakness in all extremities without focal neurologic deficits. There is no lower extremity clonus. L5 intact bilaterally. EKG without overt acute ischemia. CXR with stable findings/negative for acute cardiopulmonary process per my personal preliminary review/interpretation. WBC 11.8 K with neutrophil predominance but no left shift, nonspecific. H/H and platelets within normal limits. Chemistry without metabolic acidosis. Bicarbonate 37 consistent with chronic hypercapnia in the setting of COPD. LFTs are unremarkable. High-sensitivity troponin 15.6, within normal limits. TSH 5.8, mildly elevated however free T4 within normal limits. UA without convincing evidence of infection with WBCs and RBCs but no bacteria or nitrites. CT of the cervical spine demonstrates spondylitic changes similar to prior. CT of the head demonstrates age-related volume loss and small vessel disease similar to prior. Paranasal sinus disease also stable from prior. CT of the lumbar spine demonstrates severe levoscoliosis which is only partially appreciated as it extends into the thoracic spine previously identified on CT imaging of the chest per my interpretation. Moderate to severe degenerative changes are seen including facet arthropathy and variable neuroforaminal narrowing. No significant interval change however. Given the patient's worsening weakness patient agrees with plan for admission for further evaluation. Case was discussed with [facility]. [facility] who will evaluate the patient for admission. Further management per admitting team. Triage Nursing notes reviewed and agree them. Prior/external medical records reviewed Vital Signs: reviewed Differential diagnosis: Infection, dehydration, metabolic abnormality, hypo/hyperglycemia, electrolyte disturbance, anemia, hypoxia, cardiac sources, intracerebral event, toxicologic, neurologic, as well as other pathologies. ER treatment provided: See below. Diagnostics interpreted by me: ECG: Normal sinus rhythm, 64 bpm, no ectopy, no overt ST elevation or depression, QTc 468, QTc 84 Cardiac Monitoring: An order for continuous cardiac monitoring was placed and demonstrated Normal sinus rhythm, 64 bpm, no ectopy. Laboratory studies: See below Imaging studies: See below Consultation(s): Case was discussed with Dr. Aguila [facility] who will evaluate the patient for admission. HPI: The patient is a pleasant 83 gentleman with a past medical history chronic weakness/amatory dysfunction with home lift chair and walker, history of chronic right-sided heart failure, mild MR, CAD with history of PCI, chronic respiratory failure secondary to restrictive lung disease/granulomatous disease on home oxygen, EZEQUIEL with CPAP intolerance, nocturnal hypoxemia on nasal cannula at night, hypertension, hypothyroidism, anemia with baseline hemoglobin of 13, essential tremor, anxiety, chronic back pain, prior history of tobacco abuse who presents emergency department via EMS from his home after he had slipped out of his lift chair and could not get up. Patient has hitting his head and losing consciousness. He reports he attempted to get up on his own but was unsuccessful. He does not feel he was on the ground for long before EMS arrived. He denies any new shortness of breath, cough, or congestion from baseline. Denies fevers, chills, GI/ symptoms. ROS: See above HPI for pertinent positives & negatives. A total of 10 systems reviewed and were otherwise negative. VITALS:See Below PHYSICAL EXAMINATION: GENERAL: Awake, alert, chronically-appearing, in no distress HENT: Normocephalic, atraumatic. Oropharynx unremarkable. EYES: Normal conjunctiva. Sclera non-icteric. NECK: Supple. No nuchal rigidity. FROM. No JVD. RESPIRATORY: Clear to auscultation. CARDIAC: Regular rate, normal rhythm. Extremities warm and well perfused. Pulses equal. ABDOMEN: Soft, non-distended. No tenderness to palpation. No rebound or guarding. No masses. MUSCULOSKELETAL: Chest examination reveals no tenderness. The back is symmetrical on inspection without obvious abnormality. There is no CVA tenderness to palpation. No joint edema. LOWER EXTREMITIES: Calves are equal size bilaterally and non-tender. No edema. No discoloration. NEURO: Generalized weakness with 4/5 strength and SILT x 4 EXT. No focal sensory or motor deficits noted. SKIN: No rash or jaundice noted. Steve Last MD Past Med/Surg History Problem List Back pain Chronic respiratory failure (Acute) Dizziness (Acute) Fall (Acute) Kidney stones ONE PRESENT/NO PROBLEMS WITH Hematuria Ambulatory dysfunction (Acute) Chronic hypoxic respiratory failure, on home oxygen therapy (Acute) Fall (Acute) Dizziness (Acute) Leukocytosis (Acute) Ambulatory dysfunction (Acute) Generalized weakness (Acute) COPD (chronic obstructive pulmonary disease) (Acute) Physical deconditioning (Acute) Dependence on supplemental oxygen (Acute) Fall Elevated hemidiaphragm Pneumonia Scoliosis (Acute) Right heart failure Hypokalemia Acute and chronic respiratory failure Chronic obstructive pulmonary disease Depression Hyperlipidemia Hypertension Shortness of breath (Acute) Pulmonary edema (Acute) Acute exacerbation of CHF (congestive heart failure) (Acute) Encounter for pre-operative examination Spinal stenosis (Chronic) Encounter for pre-operative examination Acute respiratory failure (Acute) Shortness of breath Leukocytosis Aspiration into airway Medical History Bilateral shoulder pain Fall Restrictive lung disease Acute on chronic respiratory failure with hypoxemia Acute and chronic respiratory failure with hypercapnia Pulmonary embolism COVID-19 Choking REASON FOR UPCOMING PROCEDURE PER PT Ankle swelling PT PLANS TO DISCUSS WITH PT REPORTS DR HAD HIM STOP FLUID PILL AND NOT SURE WHY Infected dental caries Subperiosteal abscess of jaw Acute periodontal abscess Pain, dental Generalized muscle weakness Lower urinary tract symptoms (LUTS) Hypoxia DVT prophylaxis Chronic right-sided heart failure Fall HX, NOT RECENTLY Cervical spine fracture LAST SUMMER NO LIMITATIONS SOB (shortness of breath) on exertion with wheezing Scoliosis Chronic back pain GERD (gastroesophageal reflux disease) Hypothyroidism On anticoagulant therapy plavix daily 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 Myocardial Infarction 2009 Sleep apnea uses 4 L N/C MOSTLY ALL THE TIME On home oxygen therapy 3-4 L CONTINUOUS MOSTLY, AND PRN PER PT COPD (chronic obstructive pulmonary disease) Dyslipidemia HTN (hypertension) Hypothyroidism CAD (coronary artery disease) Surgical History Hx of oral surgery (07/05/21) Multiple Teeth Extractions for Facial Infection - Sin Chacko, DMD NO CURRENT INFECTION PER PT (PAT CALL 08/18/21) History of testicular surgery "sac full of blood in testicle drained at 26 yrs old" History of heart artery stent x1 2009--[facility] [place] History of open reduction and internal fixation (ORIF) procedure left foot fx/pinky toe fx--hardware in place History of lithotripsy Hx of vasectomy Hx of right inguinal hernia repair History of colonoscopy History of esophagogastroduodenoscopy (EGD) History of wisdom tooth extraction History of tonsillectomy History of bilateral cataract extraction History of cardiac cath 2009 @ [facility] [place] with 1 stent--follows with Dr. Ramirez Stented coronary artery "bare metal stent to LAD 2008" Family History Sister Family history of reaction to anesthesia nausea/vomiting Mother Family history of diabetes mellitus Social History Smoking Status: Former smoker Tobacco Type: Pipe and Cigars Cigarettes Per Day: SMOKED PIPE/CIGAR AGE 21'S; Second Hand Exposure: No; Do You Dip or Chew Tobacco: No; Tobacco Cessation Education Requested by Patient: No Hx Alcohol Use: No Hx Substance Use: No Preferred Language: Palestinian Communication Ability: Effective Communication Tools: Other Visual Impairment: No Limitations Administrative Underwriter Required: No Beliefs That Will Affect Care: None marital status: Current Living Situation: Alone Current Living Situation Comment: DOG How many Children do You have: 1 Other Information That Helps Us Care for You: No Feels Safe at Home: Yes Safety Concerns: Feels Safe At This Time Assistive Devices: Cane, Hospital Bed, Oxygen - Continuous and Walker Assistive Devices Comment: Cane short distances, walker long distance. Allergies Allergies Allergy/AdvReac Type Severity Reaction Status Date / Time tramadol AdvReac Intermediate Hallucinati Verified 03/12/23 02:38 ng grapefruit AdvReac Unknown WAS TOLD Verified 03/12/23 02:38 NOT TO TAKE BECAUSE OF CHOLESTROL PILL. Home Meds Home Medications Medication Instructions Recorded Confirmed sodium chloride-aloe vera nasal 1 applic intranasal PM PRN Dry 12/26/23 12/26/23 gel (Saline Nasal (aloe vera) gel) Nasal Passages Previous Rx's Medication Instructions Recorded acetaminophen 500 mg tablet 1,000 mg (2 x 500 mg) PO Q8H PRN 07/13/23 (Tylenol Extra Strength) fever or pain #90 tabs citalopram 40 mg tablet 20 mg (1/2 x 40 mg) PO QAM #30 tabs 07/13/23 clopidogrel 75 mg tablet (Plavix) See Rx Instructions .Route 07/13/23 .COMPLEX #30 tabs duloxetine 30 mg capsule,delayed 60 mg (2 x 30 mg) PO QAM Pain #30 07/13/23 release caps furosemide 20 mg tablet 20 mg PO QAM #30 tabs 07/13/23 ipratropium 20 mcg-albuterol 100 1 puff inhalation QID #4 grams 07/13/23 mcg/actuation mist for inhalation levothyroxine 112 mcg tablet 112 mcg PO DAILYBB #30 tabs 07/13/23 montelukast 10 mg tablet 10 mg PO QAM #30 tabs 07/13/23 (Singulair) nitroglycerin 0.4 mg sublingual 1 tab sublingual UD PRN Angina #30 07/13/23 tablet tabs pantoprazole 20 mg tablet,delayed 20 mg PO DAILYBB #30 tabs 07/13/23 release propranolol 20 mg tablet 20 mg PO TID #90 tabs 07/13/23 rosuvastatin 5 mg tablet 5 mg PO QAM #30 tabs 07/13/23 tamsulosin 0.4 mg capsule 0.4 mg PO HS #30 caps 07/13/23 Results & Data (ED) Vital Signs Vital Signs - 24 hr 12/25/23 23:42 12/26/23 00:13 12/26/23 00:14 Temperature 36.4 C L Temperature Source Oral Pulse Rate 64 63 Pulse Rate [Left Radial] 63 Pulse Rhythm Regular Regular Pulse Rhythm [Left Radial] Regular Pulse Strength Normal Pulse Strength [Left Radial] Normal Respiratory Rate 20 20 20 Respiratory Effort / Characteristics Non-Labored Spontaneous Non-Labored Spontaneous Respiratory Depth Normal Normal Respiratory Pattern Regular Regular Blood Pressure 132/80 Blood Pressure [Right Arm] 127/88 Blood Pressure Mean 97 Blood Pressure Mean [Right Arm] 101 Blood Pressure Position Lying Pulse Oximetry 96 95 91 Oxygen Delivery Method Nasal Cannula Room Air Nasal Cannula Oxygen Flow Rate 3.5 3.5 Sepsis Recent Fever Within 48 Hours No Sepsis New/Unexplained Change in Mental Status N/A Sepsis Action Taken by Nursing No Action Required 12/26/23 00:30 12/26/23 00:44 12/26/23 02:30 Temperature Temperature Source Pulse Rate 68 Pulse Rate [Left Radial] 62 66 Pulse Rhythm Pulse Rhythm [Left Radial] Regular Regular Pulse Strength Pulse Strength [Left Radial] Normal Normal Respiratory Rate 20 20 Respiratory Effort / Characteristics Non-Labored Spontaneous Non-Labored Spontaneous Respiratory Depth Normal Normal Respiratory Pattern Regular Regular Blood Pressure Blood Pressure [Right Arm] 133/80 130/81 Blood Pressure Mean Blood Pressure Mean [Right Arm] 97 97 Blood Pressure Position Pulse Oximetry 96 96 Oxygen Delivery Method Nasal Cannula Nasal Cannula Oxygen Flow Rate 3.5 3.5 Sepsis Recent Fever Within 48 Hours Sepsis New/Unexplained Change in Mental Status Sepsis Action Taken by Nursing Laboratory Data Attestation: I reviewed the patient's lab results. 12/26/23 00:02 12/26/23 00:02 Lab Results 12/26/23 Range/Units 00:02 WBC 11.89 H (4.8-10.8) K/ul RBC 5.23 (4.70-6.10) M/uL Hgb 16.6 (14.0-18.0) g/dl Hct 49.1 (42.0-52.0) % MCV 93.9 (80.0-100.0) fL MCH 31.7 (25.0-34.0) pg MCHC 33.8 (32.0-36.0) g/dL RDW Std Deviation 47.5 H (36.4-46.3) fL RDW Coeff of Mannie 13.8 (11.5-14.5) % Plt Count 151 (130-400) K/uL MPV 9.3 L (9.4-12.4) fL Immature Gran % (Auto) 1.0 % Neut % (Auto) 71.6 % Lymph % (Auto) 16.7 % [place] % (Auto) 8.3 % Eos % (Auto) 2.1 % Baso % (Auto) 0.3 % Neut # (Auto) 8.51 H (1.40-6.50) K/uL Lymph # (Auto) 1.98 (1.20-3.40) K/uL [place] # (Auto) 0.99 H (0.11-0.59) K/uL Eos # (Auto) 0.25 (0.00-0.50) K/uL Baso # (Auto) 0.04 (0.00-0.20) K/uL Immature Gran # (Auto) 0.12 (0.01-0.20) K/uL PT 10.4 (9.0-12.0) Seconds INR 1.0 (0.9-1.1) Sodium 140 (136-145) mmol/L Potassium 4.0 (3.5-5.1) mmol/L Chloride 96 L (98-107) mmol/L Carbon Dioxide 37 H (21-32) mmol/L Anion Gap 7 (3-11) BUN 13 (6-23) mg/dl Creatinine 0.92 (0.6-1.4) mg/dl Est Cr Clr Drug Dosing 59.5 ml/min eGFR 83.05 BUN/Creatinine Ratio 14.1 (10-20) Glucose 114 H (70-99(Fasting)) mg/dl Estimat Average Glucose 126 mg/dl Hemoglobin A1c 6.0 H (4.5-5.6) % Calcium 10.0 (8.6-10.3) mg/dl Phosphorus 3.7 (2.5-4.9) mg/dl Magnesium 2.1 (1.7-2.4) mg/dl Total Bilirubin 0.7 (0.2-1.0) mg/dl AST 19 (13-39) U/L ALT 17 (7-52) U/L Alkaline Phosphatase 88 (34-104) U/L Total Creatine Kinase 74 (30-223) U/L Troponin I High Sens 15.6 (0-20) pg/ml Total Protein 7.7 (6.0-8.3) gm/dl Albumin 4.3 (3.4-5.0) gm/dl Globulin 3.4 (2.5-4.0) gm/dl Albumin/Globulin Ratio 1.3 (0.9-2) TSH 5.848 H (0.300-4.500) uIu/ml Free T4 1.12 (0.61-1.60) ng/dl Administered Medications Albuterol (Albuterol Hfa 8 Gm Inhaler (Combivent Respimat P&T Subs)) 1 puffs [facility]; Protocol Stop: 01/25/24 06:59 Last Admin: 12/26/23 10:56 Dose: 1 puffs Documented By: [id number] Admin: 12/26/23 07:36 Dose: 1 puffs Documented By: JAIDEN Citalopram Hydrobromide (Citalopram 20 Mg Tab) 20 mg PO [facility] Stop: 01/25/24 08:59 Last Admin: 12/26/23 07:54 Dose: 20 mg Documented By: JUNIOR Clopidogrel Bisulfate (Clopidogrel Bisulfate 75 Mg Tab) 75 mg PO [facility] Stop: 01/25/24 08:59 Last Admin: 12/26/23 07:55 Dose: 75 mg Documented By: JUNIOR Duloxetine HCl (Duloxetine Hcl 60 Mg Cap) 60 mg PO [facility] Stop: 01/25/24 08:59 Last Admin: 12/26/23 07:54 Dose: 60 mg Documented By: JUNIOR Furosemide (Furosemide 20 Mg Tab) 20 mg PO [facility] Stop: 01/25/24 08:59 Last Admin: 12/26/23 07:55 Dose: 20 mg Documented By: JUNIOR Ipratropium [place] (Ipratropium Hfa Inhaler (Combivent Respimat P&T Subs)) 1 puffs INH [facility]; Protocol Stop: 01/25/24 06:59 Last Admin: 12/26/23 10:57 Dose: 1 puffs Documented By: [id number] Admin: 12/26/23 07:36 Dose: 1 puffs Documented By: JAIDEN Levothyroxine Sodium (Levothyroxine Sodium 112 Mcg Tablet) 112 mcg PO [facility] Stop: 01/25/24 06:29 Last Admin: 12/26/23 05:49 Dose: 112 mcg Documented By: KATRIN Montelukast Sodium (Montelukast Sodium 10 Mg Tablet) 10 mg PO QAM SAHIL Stop: 01/25/24 08:59 Last Admin: 12/26/23 07:54 Dose: 10 mg Documented By: JUNIOR Oxycodone HCl (Oxycodone Hcl Ir 5 Mg Tab (Immediate Release)) 5 - 10 mg PO QID PRN PRN Reason: Pain Stop: 01/09/24 02:44 Last Admin: 12/26/23 05:38 Dose: 10 mg Documented By: GINO Pantoprazole Sodium (Pantoprazole 40 Mg Tab) 40 mg PO DAILYBB SAHIL Stop: 01/25/24 06:29 Last Admin: 12/26/23 05:49 Dose: 40 mg Documented By: KATRIN Propranolol HCl (Propranolol Hcl 20 Mg Tab) 20 mg PO TID SAHIL Stop: 01/25/24 08:59 Last Admin: 12/26/23 07:55 Dose: 20 mg Documented By: JUNIOR Rosuvastatin Calcium (Rosuvastatin Calcium 5 Mg Tab) 5 mg PO QAM SAHIL Stop: 01/25/24 08:59 Last Admin: 12/26/23 07:55 Dose: 5 mg Documented By: JUNIOR Discontinued Medications Ketorolac Tromethamine (Ketorolac Tromethamine 15 Mg/Ml Vial) 15 mg IV NOW ONE Stop: 12/26/23 02:40 Last Admin: 12/26/23 03:00 Dose: 15 mg Documented By: ZOLTAN Oxycodone HCl (Oxycodone Hcl Ir 5 Mg Tab (Immediate Release)) 5 mg PO NOW STA Stop: 12/26/23 01:51 Last Admin: 12/26/23 01:57 Dose: 5 mg Documented By: ZOLTAN Tizanidine HCl (Tizanidine Hcl 4 Mg Tablet) 2 mg PO NOW STA Stop: 12/26/23 02:40 Last Admin: 12/26/23 03:00 Dose: 2 mg Documented By: ZOLTAN Imaging Data Radiologist's Impression: Chest X-Ray 12/25/23 23:50 EXAM: XR chest 1V portable CLINICAL HISTORY: GENERALIZED WEAKNESS JMF TECHNIQUE: An X-ray image of the chest is obtained in AP projection. COMPARISON: Compared with the previous study dated 10/28/2023 FINDINGS: Limited study due to expiratory film Pulmonary Parenchyma: Evidence of right para cardiac patchy opacity obscuring right heart border suggesting infectious process. A well-defined small pulmonary nodule is seen in the right mid/lower lung zone. Elevation of right diaphragmatic coupla with mild obliteration of right costophrenic angle suggests mild right pleural effusion. Retrocardiac opacity is seen. Heart and Mediastinum: Heart size is increased taking into consideration expiratory film. Bony Thorax: Scoliotic changes of the thoracic spine with convexity to the right side The bony thorax appears intact without fractures or deformities. Soft Tissues: Soft tissues overlying the chest wall are unremarkable. IMPRESSION: Right para cardiac patchy opacity obscuring right heart border suggesting of infectious/inflammatory process ( no significant changes in comparison with the previous study) Right mid/lower lung zone small pulmonary nodule (same finding in comparison with the previous study) Elevation of right diaphragmatic coupla with mild obliteration of right hemidiaphragm suggesting mild right pleural effusion( no significant changes). Increase cardiac size with retrocardiac opacity ( same finding) Electronically signed by Gail Bender 12-26-2023 01:[address] 12/26/23 00:40 EXAM: CT cervical spine wo con CLINICAL HISTORY: Extremity weakness TECHNIQUE: Axial sections of CT cervical spine were obtained without administration of intravenous contrast. Reformatted coronal and sagittal images were acquired. "one of the following dose reduction techniques were utilized for this exam: Automated exposure control, adjustment of the mA and/or kV according to patient size, use of iterative reconstruction." COMPARISON: 10/28/2023 FINDINGS: No acute vertebral fracture is seen. Loss of cervical lordosis, likely secondary to muscular spasm. Subtle anterior listhesis of C7 over T1. Spondylotic changes in the visualized spine with multilevel osteophytes, facet arthropathic changes, endplate changes and reduced intervertebral disc space. Multilevel disc osteophyte complexes exerting effects on the spinal canal and neural foramina in combination with facet arthropathic changes. Atlantoaxial joint degenerative changes are seen. Reduced bone density. No significant abnormality in the visualized soft tissues. IMPRESSION: No acute fracture seen. Spondylotic changes in the cervical spine, unchanged from prior CT examination. Electronically signed by Gail Bender 12-26-2023 02:[address] 12/26/23 00:40 EXAM: CT head/brain wo con CLINICAL HISTORY: Extremity weakness TECHNIQUE: Axial non-contrast CT scan of the brain was performed from the skull base to the high parietal region. One of the following dose reduction techniques were utilized for this exam: Automated exposure control, adjustment of the mA and/or kV according to patient size, use of iterative reconstruction. COMPARISON: 10/29/2023 FINDINGS: Brain Parenchyma: Age-related parenchymal volume loss with capacious extra-axial CSF spaces. Periventricular extensive confluent hypodensities, likely related to high-grade small vessel disease. No evidence of acute infarct, hemorrhage, or mass effect. Ventricular System: No evidence of hydrocephalus or ventricular enlargement. Subarachnoid Spaces: No evidence of subarachnoid hemorrhage or extra-axial fluid collections. Cerebellum and Brainstem: No masses, lesions, or areas of abnormal density. Orbits: No evidence of orbital masses or abnormal density. Sinuses: Mucosal thickening of paranasal sinuses with partial opacification of the right ethmoid air cells, associated with right lamina papyracea thinning and remodeling. Mastoid Air Cells: Clear mastoid air cells. No evidence of mastoiditis. IMPRESSION: 1. No acute brain hemorrhage. 2. Nearly stable parenchymal volume loss and bilateral periventricular hypodensities, likely high-grade small vessel disease, if clinically indicated please correlate with brain MRI. 3. Nearly stable mucosal thickening of paranasal sinuses and partial opacification of the right ethmoidal air cells with bone remodeling, clinical correlation is advised. Electronically signed by Gail Bender 12-26-2023 02:[address] 12/26/23 00:40 EXAM: CT lumbar spine wo con CLINICAL HISTORY: Extremity weakness TECHNIQUE: CT non-contrast scan of lumbar spine done. Axial images obtained with reformatted coronal and sagittal images and submitted for interpretation. One of the following dose reduction techniques were utilized for this exam: Automated exposure control, adjustment of the mA and/or kV according to patient size, use of iterative reconstruction. COMPARISON: 01/02/2023 FINDINGS: Severe levoscoliosis is present in the lumbar spine with only partially covered curvature, the probable Linda angle measures up to 51. Generalized reduced bone mineralization. Moderate to severe degenerative changes are seen in the spine with multilevel marginal osteophytes, variably reduced intervertebral disc spaces, discal calcifications and vacuum phenomena. Multilevel facet arthropathy is also present. Variable neural foraminal narrowing more marked at the level of lower lumbar spine. No definite fractures, lytic or sclerotic lesions. Spinal canal is of normal caliber with no evidence of spinal stenosis. Fatty degeneration is seen in the paravertebral muscles. Incidental note is made of few non-obstructing right renal calyceal calculi, partially covered right renal cyst and cholelithiasis. IMPRESSION: 1. Severe levoscoliosis is present in the lumbar spine with only partially covered curvature, the probable Linda angle measures up to 51. 2. Moderate to severe degenerative changes are seen in the spine. Contributed by facet arthropathy, variable neural foraminal narrowing more marked at the level of lower lumbar spine. 3. No significant interval change. 4. Incidental note is made of few non-obstructing right renal calyceal calculi, partially covered right renal cyst and cholelithiasis. [facility] was called at [phone] at 1:28 AM MATHEMATICS EDUCATION PROFESSOR on 12/26/2023 and results were verbally communicated with Steve Perla . Electronically signed by Gail Bender 12-26-2023 02:32 AM Discharge Plan Visit Data Chief Complaint: Fall Stated Complaint: Fall, Leg Weakness ED Provider: Steve Last Discharge Problem: Generalized weakness, Ambulatory dysfunction, Scoliosis Patient Disposition: Admitted As Inpatient Discharge Instructions Interventions: ED Discharge Assessment Last Done: 12/26/23 03:31 Discharge Problem: Scoliosis Qualifiers: Scoliosis type: unspecified scoliosis Spinal region: thoracolumbar Qualified Code(s): M41.9 - Scoliosis, unspecified
--- OUTSIDE RECORDS SUMMARY | 2023-12-25 23:42 | External Medical Summary ---
Author Name Unknown Address Unknown Organization [id number]:[facility]ORY [facility] - [address] [facility] [address] [place] [address] Laboratory Report Ordering Provider Test Date Status JESSA METZGER 12/20/2023 10:49:53 Final Observation Date Value Abnormality Reference (Units ) Status BUN 12/20/2023 10:49:53 16 6-20 (mg/dL) Final Creatinine 12/20/2023 10:49:53 1.0 0.6-1.2 (mg/dL) Final Glomerular filtration rate/1.73 sq M.predicted [Volume Rate/Area] in Serum, Plasma or Blood by Creatinine-based formula (CKD-EPI) 12/20/2023 10:49:53 77 >=60 (mL/min) Final eGFR is calculated based on the CKD-EPI 2020 equation. Sodium 12/20/2023 10:49:53 139 135-146 (m mol/L) Final Potassium 12/20/2023 10:49:53 4.1 3.5-5.1 (m mol/L) Final Cl 12/20/2023 10:49:53 94 Below low normal 98- 107 (mmol/L) Final CO2 12/20/2023 10:49:53 35 Above high normal 22 -32 (mmol/L) Final Anion gap 12/20/2023 10:49:53 10 7-15 (mmol /L) Final Glucose 12/20/2023 10:49:53 94 70-120 (mg /dL) Final Calcium 12/20/2023 10:49:53 9.8 8.4-10.2 ( mg/dL) Final Albumin 12/20/2023 10:49:53 4.4 3.8-5.0 (g /dL) Final Phosphate 12/20/2023 10:49:53 4.1 2.5-4.8 (m g/dL) Final Performing Location LABORATORY C - [address] [place] [address]
--- OUTSIDE RECORDS SUMMARY | 2023-12-25 23:42 | External Medical Summary ---
Author Name Unknown Address Unknown Organization [id number][facility] [address] [place] [address] Laboratory Report Ordering Provider Test Date Status DOMENICAJESSA 12/20/2023 10:49:53 Final Observation Date Value Abnormality Reference (Units ) Status SYNC LEUKOCYTES IN BLOOD BY AUTOMATED COUNT 12/20/2023 10:49:53 10.97 Above high normal 4.00-10.80 (K/uL) Final Segs 12/20/2023 10:49:53 62.9 40.0-75.0 (%) Final Lymphs % 12/20/2023 10:49:53 22.1 18.0-42.0 (%) Final Monos 12/20/2023 10:49:53 12.2 Above high normal 1.0-11.0 (%) Final Eosinophils 12/20/2023 10:49:53 2.6 0.0-6.0 (%) Final Basos 12/20/2023 10:49:53 0.2 0.0-2.0 (%) Final Absolute Segs 12/20/2023 10:49:53 6.91 1.80-7.70 (K/uL) Final Lymphs, absolute 12/20/2023 10:49:53 2.42 1.00-4.80 (K/ul) Final Monos, Abs 12/20/2023 10:49:53 1.34 Above high normal 0.00-1.10 (K/uL) Final Eos, Abs 12/20/2023 10:49:53 0.28 0.00-0.70 (K/uL) Final Basos, Abs 12/20/2023 10:49:53 0.02 0.00-0.20 (K/uL) Final Performing Location LAB[facility]ATORY [facility] - [address] [place] [address]
--- OUTSIDE RECORDS SUMMARY | 2023-12-25 23:42 | External Medical Summary | Summary of Care ---
Author Name Unknown Organization [facility] Address [address] [place] [address] Phone [phone] Care Team Providers Care Farm Operations Technical Director Name Role Phone Jennifer Sarkar MD Primary Care Provider [phone] Reason for Visit * Reason Onset Date Comments Pre Cert/Prior Auth 09/08/2023 Prolia, wait ing on FA Encounter Details Date Type Department Care Team (Late st Contact Info) Description 09/08/2023 Telephone Rheumatology [facility] [address] [place] [address] Meryl Santiago CRNP [address] [place] [address] Pre Cert/Prior Auth (Prolia, waiting on FA) Allergies Active Allergy Reactions Criticality Noted Date Comments Food (See Comments) 03/21/2018 Other reaction(s): WAS TOLD NOT TO TAKE grapefruit Tramadol Other (Please comment) High 10/06/2020 Hallucinations documented as of this encounter (statuses as of 12/19/2023) Medications Medication Sig Dispensed Refills Start Date [...] administration Active Acetaminophen 500 MG Oral Tablet (Tylenol)Indication s:Spinal stenosis of lumbar region without neurogenic claudication Take by mouth 2 Tablets in the morning AND 2 Tablets before bedtime. ,may take 3rd dose in between --12/21/2021. 1 Tablet 12/22/19 22 Active Additional Information Patient taking differently:1,000 mg [id number] PRN, ,may take 3rd dose in between --12/21/2021, Reported on 12/21/2022 Saline Nasal Gel (Nasogel)Indication s:Chronic respiratory failure with hypoxia (HCC),Supplemental oxygen dependent,Nasal septal perforation,Nose dryness Administer into each nostril daily. 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 90 Tablet 3 08/03/19 24 Active Furosemide 40 MG Oral Tablet (Lasix)Indications: Coronary artery disease involving [place] coronary artery of [place] heart without angina pectoris,Chronic right-sided heart failure (HCC),Bilateral leg edema,Encounter for monitoring diuretic therapy 40 mg in the AM and 20 mg in the early afternoon 135 Tablet 3 09/08/19 24 Active Ipratropium-Albuter ol 20-100 MCG/ACT Inhalation Aerosol Solution (Combivent Respimat)Indication s:Granulomatous lung disease (HCC),Chronic respiratory failure with hypoxia (HCC) Inhale 1 Puff by mouth in the morning and 1 Puff at noon and 1 Puff in the evening and 1 Puff before bedtime. 4 g 2 04/06/19 23 024 Discontinued(R efill) Albuterol Sulfate HFA 108 (90 Base) MCG/ACT Inhalation Aerosol Solution Inhale 2 Puffs by mouth every 6 hours as needed for Wheezing. 18 g 04/07/19 23 024 Discontinued(R efill) Rosuvastatin Calcium 5 MG Oral Tablet (Crestor)Indication s:Dyslipidemia, goal LDL below 100,S/P primary angioplasty with coronary stent Take 1 Tablet by mouth in the morning. Restart 04/16/2022. 90 Tablet 3 04/16/19 23 024 Discontinued Pantoprazole Sodium 20 MG Oral Tablet Delayed Release (Protonix)Indicatio ns:History of gastroesophageal reflux (GERD),History of esophageal dilatation Take 1 Tablet by mouth at bedtime. 30 minutes before the first meal of the day. Do not crush, split or chew the tablet--dec 12/21/2021(nml EGD 08/21/21)--chg timing 05/18/2022 90 Tablet 3 08/10/19 23 024 Discontinued Montelukast Sodium 10 MG Oral Tablet (Singulair)Indicati ons:Chronic pansinusitis Take 1 Tablet by mouth in the morning. St 09/01/2022. 90 Tablet 3 09/02/19 23 024 Discontinued Benzonatate 100 MG Oral CapsuleIndications: Aspiration into airway, subsequent encounter Take 1 Capsule by mouth 3 times a day as needed for Cough. 30 Capsule 1 12/21/19 23 024 Discontinued(E nd of Procedure) oxyCODONE HCl 5 MG Oral Tablet (Oxy IR) Take 1 Tablet by mouth every 8 hours as needed for Pain, Severe. 01/10/20 23 024 Discontinued(E nd of Procedure) Levothyroxine Sodium 112 MCG Oral Tablet (Levoxyl)Indication s:Acquired hypothyroidism TAKE 1 TABLET BY MOUTH IN THE MORNING. (AT LEAST 30 MIN PRIOR TO BREAKFAST OR OTHER MEDS) 90 Tablet 06/16/19 24 024 Discontinued Citalopram Hydrobromide 20 MG Oral Tablet (CeleXA) TAKE 1 TABLET BY MOUTH EVERY DAY FOR DEPRESSION 90 Tablet 06/16/19 24 024 Discontinued DULoxetine HCl 60 MG Oral Capsule Delayed Release Particles (Cymbalta)Indicatio ns:Chronic pain of both shoulders,Spinal stenosis of lumbar region without neurogenic claudication,Curren t moderate episode of major depressive disorder without prior episode (HCC) Take 1 Capsule by mouth in the morning. Do not cut, crush or chew--inc from 06/23/2023. 90 Capsule 1 06/22/19 24 024 Discontinued Tamsulosin HCl 0.4 MG Oral Capsule (Flomax)Indications :BPH with obstruction/lower urinary tract symptoms Take 1 Capsule by mouth at bedtime. St 06/22/2023 90 Capsule 07/28/19 24 024 Discontinued Magnesium Hydroxide 400 MG/5ML Oral Suspension (Mom) Take 30 mL by mouth. 07/07/19 24 024 Discontinued(P atient preference/dis continuation) documented as of this encounter (statuses as of 12/19/2023) Active Problems Problem Noted Date Diagnosed Date Hypercalcemia 12/03/2022 Supplemental oxygen dependent 05/06/2022 Nasal septal perforation 05/06/2022 Chronic respiratory failure with hypoxia 022 Granulomatous lung disease 09/18/2021 Chronic rhinitis 06/10/2021 Schatzki's ring of distal esophagus 06/10/2021 Chronic right-sided heart failure 04/08/2020 Coronary artery disease invo lving ramona coronary artery of ramona heart without angina pectoris 11/21/2018 Abnormality of [...] as of this encounter (statuses as of 12/19/2023) Resolved Problems Problem Noted Date Diagnosed Date [...] as of this encounter (statuses as of 12/19/2023) Immunizations Name Administration Dates Next Due COVID-19 mRNA, LNP-s, No Pre serve, 2-Dose Series ([employer]) 05/14/2020,04/18/2020 H1N1 2009 Influenza, IM 04/22/2009 PPD 01/18/2023, 3,11/22/2022,11/13,08/20/2020,08/11/2020 Pneumococcal Conjugate Vacc, 13 Valent (Prevnar) 11/12/2014 Pneumococcal Polysaccharide PPV23 (Pneumovax) 07/20/2007,02/25/2002 Season Influenza, Quad, PF, Adjuvanted, 65+ Yrs, IM (FLUAD) 11/29/2019 Seasonal Influenza Vac., MDV , IM, 0.5 mL (Fluzone) 11/12/2014,11/26/2013,10/31/2012,01/20,11/10/2010,12/23/2009,12/18/2008 ,12/14/2007,01/03/2007,12/15/2005,11/22,02/26/2004,12/19/2002, 2 Seasonal Influenza, High Dos e, Trivalent, PF, [...] encounter Miscellaneous Notes * Telephone Encounter - Raymundo Pyle LPN - 12/19/2023 3:22 PM EDT Spoke with pt sister"will talk to pt tomorrow about FA, then will call this office with the info" * Telephone Encounter - Meryl Santiago CRNP - 10/21/2023 4:39 PM EDT Any update? * Telephone Encounter - Marielle Nunez LPN - 10/11/2023 3:43 PM EDT Has he been approved yet? * Telephone Encounter - Marielle Nunez LPN - 09/15/2023 11:48 AM EDT Pt is going to apply for FA * Telephone Encounter - Niya Nunez LPN - 09/08/2023 4:07 PM EDT Images from the original note were not included. Abby Lujan, EZEQUIEL You4 hours ago (12:04 PM) AN Date of Services: 09/14/2023 Facility: Estimate of Services for the following CPT(s): J0897 Estimated Out of Pocket: $321.14 (301.14- 20% Coinsurance & 20.00 copay) Contacted patient: Yes spoke with patient, He stated that a lot for once every 6 months, Explained his insurance has a 20%. Patient would like to sign up for FA. He was going to talk to daughter about keeping apt or not. * Telephone Encounter - Niya Nunez LPN - 09/08/2023 9:21 AM EDT Pt has an upcoming appointment to received Micronotes. Please notify pt of any out of pocket costs. Thank you! Vit D level is okay per Ladi documented in this encounter Plan of Treatment Upcoming Encounters Date Type Department Care Team (Late st Contact Info) Description 12/20/2023 9:45 AM EDT Office Visit Urology, [facility] [address] [facility] [place] [address] Man Gu MD [address] [place] [address] 12/26/2023 11:20 AM EST Office Visit General Internal Medicine [facility] [address] [facility] [place] [address] Jennifer Sarkar MD [address] [facility] [place] [address] 03/16/2024 2:00 PM EST Office Visit Cardiology, [facility] [place] [address] Job Bravo PA-C [address] [place] [address] 03/21/2024 10:30 AM EST Office Visit Orthopaedics [facility] [address] [place] [address] Ely Cabrales MD [address] [facility] [place] [address] 05/14/2024 12:20 PM EDT Office Visit Pulmonary Medicine, [facility] [address] [place] [address] Bashir Harding MD [address] [place] [address] Scheduled Procedures Name Priority Associated Diagnoses Date/Ti [...] D LEVEL ONCE IN A LIFETIME-USE SMARTSET# 71556 Completed 10/20/2023, 08/17/2023, 12/01/2022, Additional history exists [...] this encounter Medical Devices Implanted Type Area Plate Driller Device Identifier Shelf Expiration Date Model / Serial / Lot Lens Intraoc 23.0 - [id number] - [id number] Implanted:Qty: 1 on 12/21/2016 by Raj Bernard MD at OR [facility] Left: Eye [employer] 06/20/2021 [id number] / [id number] / Lens Intraoc 22.0 - [id number] - [id number] Implanted:Qty: 1 on 01/06/2017 by Raj Bernard MD at [facility] Right: Eye [employer]OM[employer] 08/20/2021 [id number] / [id number] / [id number] documented as of this encounter Advance Directives [...] Power of Attor bj? No Care Teams Farm Operations Technical Director Relationship Specialty Start Date End Date Jennifer Sarkar MD [address] [place] [address] PCP - General Internal Medicine 10/06/20 documented as of this encounter
--- OUTSIDE RECORDS SUMMARY | 2023-12-25 23:42 | External Medical Summary ---
Author Name Unknown Address Unknown Organization [id number] [address] [place] [address] Laboratory Report Ordering Provider Test Date Status JESSA METZGER 12/20/2023 10:49:53 Final Observation Date Value Abnormality Reference (Units ) Status ALT (Alanine aminotransferase) 12/20/2023 10:49:53 22 10-50 (U/L) Final Performing Location [facility] 0 - [address] [place] [address]
--- OUTSIDE RECORDS SUMMARY | 2023-12-25 23:42 | External Medical Summary ---
Author Name Unknown Address Unknown Organization K0G:[facility]ATORY [facility] [address] - [address] [place] [address] Laboratory Report Ordering Provider Test Date Status DOMENICAJESSA 12/20/2023 11:05:45 Final Observation Date Value Abnormality Reference (Units ) Status Color of Urine by Auto 12/20/2023 11:05:45 Yellow Light Yellow, Yellow, Dark Yellow Final Clarity, Urine 12/20/2023 11:05:45 Clear Clear Final Glucose [Mass/volume] in Urine by Automated test strip 12/20/2023 11:05:45 Negative Negative (mg/dL) Final Bilirubin.total [Presence] in Urine by Automated test strip 12/20/2023 11:05:45 Negative Negative Final Ketones [Mass/volume] in Urine by Automated test strip 12/20/2023 11:05:45 Negative Negative (mg/dL) Final Specific gravity, Urine 12/20/2023 11:05:45 1.020 1.003-1.030 Final Hemoglobin [Presence] in Urine by Automated test strip 12/20/2023 11:05:45 Trace Abnormal Negative Final pH, Urine 12/20/2023 11:05:45 7.0 5.0-7.5 (Units) Final Protein [Mass/volume] in Urine by Automated test strip 12/20/2023 11:05:45 Negative Negative (mg/dL) Final Urobilinogen [Mass/volume] in Urine by Automated test strip 12/20/2023 11:05:45 0.2 0.2, 1.0 (mg/dL) Final Nitrite [Presence] in Urine by Automated test strip 12/20/2023 11:05:45 Negative Negative Final Leukocyte esterase [Presence] in Urine by Automated test strip 12/20/2023 11:05:45 Trace Abnormal Negative Final RBC, Urine 12/20/2023 11:05:45 3-5 Abnormal 0-2 (/HPF) Final WBC, Urine 12/20/2023 11:05:45 3-5 Abnormal 0-2 (/HPF) Final Bacteria [#/area] in Urine sediment by Microscopy high power field 12/20/2023 11:05:45 0-25 0-25 (/HPF) Final CULTURE, URINE - [facility] 12/20/2023 11:05:45 Final Culture not indicated by uri nalysis results\X09\ Performing Location LABORATORY [place] [address] - [address] [place] [address]
--- OUTSIDE RECORDS SUMMARY | 2023-12-25 23:42 | External Medical Summary ---
Author Name Unknown Address Unknown Organization K01:[facility] [place] [address] [place] [address] Laboratory Report Ordering Provider Test Date Status JESSA METZGER 12/20/2023 10:49:53 Final Observation Date Value Abnormality Reference (Units ) Status LDL, (direct) 12/20/2023 10:49:53 62 <=129 (mg/dL) Final LDL Cholesterol Reference Ra nges (mg/dL):
<70 Target level for high risk ASCVD patient
<100 Optimal for general population
100-129 Near optimal for general population
130-159 Borderline high
160-189 High
>=190 Very high Performing Location LABORATORY [facility] - [address] [place] [address]
--- OUTSIDE RECORDS SUMMARY | 2023-12-25 23:42 | External Medical Summary ---
Author Name Unknown Address Unknown Organization K0G:[facility]ATORY [place] [address] - [address] [place] [address] Laboratory Report Ordering Provider Test Date Status JESSA METZGER 12/20/2023 10:49:53 Final Observation Date Value Abnormality Reference (Units ) Status Protein 12/20/2023 10:49:53 7.1 6.0-8.3 (g /dL) Final [facility]forming [facility] 0 - [address] [place] [address]
--- OUTSIDE RECORDS SUMMARY | 2023-12-25 23:42 | External Medical Summary ---
Author Name Unknown Address Unknown Organization K01:[facility] [place] [address] [place] [address] Laboratory Report Ordering Provider Test Date Status VINITA JONES 12/20/2023 10:49:53 Final Observation Date Value Abnormality Reference (Units ) Status Free PSA 12/20/2023 10:49:53 1.29 (ng/mL) Final Free PSA % 12/20/2023 10:49:53 19 Below low normal >2 5 (%) Final Performing Location [facility] [place] [address] [place] [address]
--- OUTSIDE RECORDS SUMMARY | 2023-12-25 23:42 | External Medical Summary ---
Author Name Unknown Address Unknown Organization K0G:[facility] [place] [address] - [address] [place] [address] Laboratory Report Ordering Provider Test Date Status JESSA METZGER 12/20/2023 10:49:53 Final Observation Date Value Abnormality Reference (Units ) Status Bilirubin, Direct 12/20/2023 10:49:53 <0.2 0. 0-0.3 (mg/dL) Final Performing Location [facility] [place] [place] [facility] 57-[address] 0 - [address] [place] [address]
--- OUTSIDE RECORDS SUMMARY | 2023-12-25 23:42 | External Medical Summary ---
Author Name Unknown Address Unknown Organization K0G:[facility]ORY [place] [address] - [address] [place] [address] Laboratory Report Ordering Provider Test Date Status JESSA METZGER 12/20/2023 10:49:53 Final Observation Date Value Abnormality Reference (Units ) Status Nucleated erythrocytes/100 leukocytes [Ratio] in Blood by Automated count 12/20/2023 10:49:53 Final Variant lymphocytes [Presence] in Blood by Light microscopy 12/20/2023 10:49:53 Present Abnormal None Seen Final Performing Location [facility]ORY [place] [address] - [address] [place] [address]
--- OUTSIDE RECORDS SUMMARY | 2023-12-25 23:42 | External Medical Summary ---
Author Name Unknown Address Unknown Organization [facility] - [address] [place] [address] Laboratory Report Ordering Provider Test Date Status JESSA METZGER 12/20/2023 10:49:53 Final Observation Date Value Abnormality Reference (Units ) Status AST (Aspartate aminotransferase) 12/20/2023 10:49:53 22 10-50 (U/L) Final Performing [facility] 0 - [address] [place] [address]
--- OUTSIDE RECORDS SUMMARY | 2023-12-25 23:42 | External Medical Summary | Summary of Care ---
Author Name Unknown Organization [facility] Address [address] [place] [address] Phone [phone] Care Team Providers Care Helpdesk Manager Name Role Phone Jennifer Sarkar MD Primary Care Provider [phone] Reason for Visit * Reason Onset Date Comments Pre Cert/Prior Auth 09/08/2023 Prolia, wait ing on FA Encounter Details Date Type Department Care Team (Late st Contact Info) Description 09/08/2023 Telephone Rheumatology [facility] [address] [place] [address] Meryl Santiago CRNP [address] [place] [address] Pre Cert/Prior Auth (Prolia, waiting on FA) Allergies Active Allergy Reactions Criticality Noted Date Comments Food (See Comments) 03/21/2018 Other reaction(s): WAS TOLD NOT TO TAKE grapefruit Tramadol Other (Please comment) High 10/06/2020 Hallucinations documented as of this encounter (statuses as of 12/08/2023) Medications Medication Sig Dispensed Refills Start Date [...] Active Additional Information Patient taking differently:1,000 mg EjyaF4M PRN, ,may take 3rd dose in between [...] Tablet 1 02/12/20 23 Active oxygen 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: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 (HCC),Chronic right-sided [...] Oral Tablet (Lasix)Indications: Coronary artery disease involving [place] coronary artery of [place] heart without angina pectoris,Chronic right-sided heart failure [...] as of this encounter (statuses as of 12/08/2023) Active Problems Problem Noted Date Diagnosed Date Hypercalcemia 12/03/2022 Supplemental oxygen dependent 05/06/2022 Nasal septal perforation 05/06/2022 Chronic respiratory failure with hypoxia 022 Granulomatous lung disease 09/18/2021 Chronic rhinitis 06/10/2021 Schatzki's ring of distal esophagus 06/10/2021 Chronic right-sided heart failure 04/08/2020 Coronary artery disease invo lving [place] coronary artery of [place] heart without angina pectoris 11/21/2018 Abnormality of [...] as of this encounter (statuses as of 12/08/2023) Resolved Problems Problem Noted Date Diagnosed Date [...] and draped in usual sterile manner. 14 Latvian flexible cystoscope inserted into urethra and guided [...] as of this encounter (statuses as of 12/08/2023) Immunizations Name Administration Dates Next Due COVID-19 mRNA, LNP-s, No Pre serve, 2-Dose Series ([employer]) 05/14/2020,04/18/2020 H1N1 2009 Influenza, IM 04/22/2009 PPD 01/18/2023, 3,11/22/2022,11/13,08/20/2020,08/11/2020 Pneumococcal Conjugate Vacc, 13 Valent (Prevnar) 11/12/2014 Pneumococcal Polysaccharide PPV23 (Pneumovax) 07/20/2007 Season Influenza, Quad, PF, Adjuvanted, 65+ Yrs, IM (FLUAD) 11/29/2019 Seasonal Influenza Vac., MDV , IM, 0.5 mL (Fluzone) 11/12/2014,11/26/2013,10/31/2012,01/20,11/10/2010,12/23/2009,12/18/2008 ,12/14/2007,01/03/2007,12/15/2005 Seasonal Influenza, PF, 6 M & above, [...] Pt has an upcoming appointment to received Prolia. Please notify pt of any out of pocket costs. Thank you! Vit D level is okay per Ladi documented in this encounter Plan of Treatment Upcoming Encounters Date Type Department Care Team (Late st Contact Info) Description 12/20/2023 9:45 AM EDT Office Visit Urology, [facility] [address] [facility] [place] [address] Man Gu MD [address] [place] [id number] 12/26/2023 11:20 AM EST Office Visit General Internal Medicine [facility] [address] [place] [address] Jennifer Sarkar MD [address] [facility] [place] [address] 03/16/2024 2:00 PM EST Office Visit Cardiology, [facility] [address] [facility] [place] [address] Job Bravo PA-C [address] [place] [address] 03/21/2024 10:30 AM EST Office Visit Orthopaedics [facility] [address] [facility] [place] [address] Ely Cabrales MD [address] [place] [address] 05/14/2024 12:20 PM EDT Office Visit Pulmonary Medicine, [facility] [address] [facility] [place] [address] Bashir Harding MD [address] [place] [place] [address] Scheduled Procedures Name Priority Associated Diagnoses Date/Ti [...] D LEVEL ONCE IN A LIFETIME-USE SMARTSET# [id number] Completed 10/20/2023, 08/17/2023, 12/01/2022, Additional history exists [...] this encounter Medical Devices Implanted Type Area Polytechnic Registrar Device Identifier Shelf Expiration Date Model / Serial / Lot Lens Intraoc 23.0 - [id number] - [id number] Implanted:Qty: 1 on 12/21/2016 by Raj Bernard MD at OR [facility] Left: Eye [employer] 06/20/2021 [id number] / [id number] / Lens Intraoc 22.0 - [id number] - [id number] Implanted:Qty: 1 on 01/06/2017 by Raj Bernard MD at OR [facility] Right: Eye [employer]OM[employer] 08/20/2021 [id number] / [id number] / [id number] documented as of this encounter Advance Directives [...] Power of Attor bj? No Care Teams Helpdesk Manager Relationship Specialty Start Date End Date Jennifer Sarkar MD [address] [place] [address] PCP - General Internal Medicine 10/06/20 documented as of this encounter
--- OUTSIDE RECORDS SUMMARY | 2023-12-25 23:42 | External Medical Summary ---
Author Name Unknown Address Unknown Organization K01[place] [place] [address] [place] [address] Laboratory Report Ordering Provider Test Date Status VINITA JONES 12/20/2023 10:49:53 Final Observation Date Value Abnormality Reference (Units ) Status PSA 12/20/2023 10:49:53 6.94 Above high normal <4 .10 (ng/mL) Final Performing Location [facility] - [address] [place] [address]
--- OUTSIDE RECORDS SUMMARY | 2023-12-25 23:42 | External Medical Summary | Summary of Care ---
Author Name Unknown Organization [facility] Address [address] [address] Phone [phone] Care Team Providers Care It Coordinator Name Role Phone Jennifer Sarkar MD Primary Care Provider [phone] Reason for Visit * Reason Onset Date Comments Pre Cert/Prior Auth 09/08/2023 Prolia, wait ing on FA Encounter Details Date Type Department Care Team (Late st Contact Info) Description 09/08/2023 Telephone Rheumatology [facility] [address] [place] [address] Meryl Santiago CRNP [address] [place] [address] Pre Cert/Prior Auth (Prolia, waiting on [...] Active Additional Information Patient taking differently:1,000 mg [id number] PRN, ,may take 3rd dose in between [...] Tablet 1 02/12/20 23 Active oxygen 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: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 (HCC),Chronic right-sided [...] Oral Tablet (Lasix)Indications: Coronary artery disease involving campo coronary artery of campo heart without angina pectoris,Chronic right-sided heart failure [...] failure 04/08/2020 Coronary artery disease invo lving campo coronary artery of campo heart without angina pectoris 11/21/2018 Abnormality of [...] mRNA, LNP-s, No Pre serve, 2-Dose Series (Couchbase) 05/14/2020,04/18/2020 H1N1 2009 Influenza, IM 04/22/2009 PPD [...] Office Visit Urology, [facility] [address] [facility] [place] [address] Man Gu MD [address] [place] [id number] 12/26/2023 11:20 AM EST Office Visit General Internal Medicine [facility] [address] [place] [address] Jennifer Sarkar MD 200 [facility] [place] [address] 03/16/2024 2:00 PM EST Office Visit Cardiology, [facility] [address] [facility] [place] [address] Job Bravo PA-C [address] [place] [address] 03/21/2024 10:30 AM EST Office Visit Orthopaedics [facility] [address] [facility] [place] [address] Ely Cabrales MD [address] [place] [address] 05/14/2024 12:20 PM EDT Office Visit Pulmonary Medicine, [facility] 132 [facility] [place] [address] Bashir Harding MD [address] [place] [address] Scheduled Procedures Name Priority Associated Diagnoses Date/Ti [...] D LEVEL ONCE IN A LIFETIME-USE SMARTSET# 13364 Completed 10/20/2023, 08/17/2023, 12/01/2022, Additional history exists [...] this encounter Medical Devices Implanted Type Area Pad Extraction Tender Device Identifier Shelf Expiration Date Model / Serial / Lot Lens Intraoc 23.0 - [id number] - [id number] Implanted:Qty: 1 on 12/21/2016 by Raj Bernard MD at OR [facility] Left: Eye [employer]USCH [employer] LOMB 06/20/2021 [id number] / [id number] / Lens Intraoc 22.0 - [id number] - [id number] Implanted:Qty: 1 on 01/06/2017 by Raj Bernard MD at OR [facility] Right: Eye BAUSCH & LOMB 08/20/2021 [id number] / [id number] / [id number] documented as of this encounter Advance Directives [...] Power of Attor bj? No Care Teams It Coordinator Relationship Specialty Start Date End Date Jennifer Sarkar MD 200 [place] [address] PCP - General Internal Medicine 10/06/20 documented as of this encounter
--- OUTSIDE RECORDS SUMMARY | 2023-12-25 23:42 | External Medical Summary ---
Author Name Unknown Address Unknown Organization K0G:[facility] [address] [place] [address] Laboratory Report Ordering Provider Test Date Status JESSA METZGER 12/20/2023 10:49:53 Final Observation Date Value Abnormality Reference (Units ) Status Bilirubin, Total 12/20/2023 10:49:53 0.5 <=1 .2 (mg/dL) Final [facility] - [address] [place] [address]
--- OUTSIDE RECORDS SUMMARY | 2023-12-25 23:42 | External Medical Summary | Summary of Care ---
Author Name Unknown Organization [facility] Address [address] [facility] [place] [address] Phone [phone] Care Team Providers Care Residential Construction Instructor Name Role Phone Domenica Sarkar MD Primary Care Provider [phone] Reason for Visit * Reason Onset Date Comments Advice 11/23/2023 Encounter Details Date Type Department Care Team (Late st Contact Info) Description 11/23/2023 Telephone General Internal Medicine [facility] 200 [place] [address] Domenica Sarkar MD 200 [place] [address] Advice Allergies Active Allergy Reactions Criticality Noted Date Comments Food (See Comments) 03/21/2018 Other reaction(s): WAS TOLD NOT TO TAKE grapefruit Tramadol Other (Please comment) High 10/06/2020 Hallucinations documented as of this encounter (statuses as of 12/14/2023) Medications Medication Sig Dispensed Refills Start Date [...] Active Additional Information Patient taking differently:1,000 mg WmyzK1T PRN, ,may take 3rd dose in between [...] Oral Tablet (Lasix)Indications:Co ronary artery disease involving belkofski coronary artery of belkofski heart without angina pectoris,Chronic right-sided heart failure [...] 12 g 2 4 08/05/19 25 Active Amoxicillin 500 MG Oral Capsule (Amoxil)Indications:A cute infective rhinitis,Chronic respiratory failure with hypoxia (HCC) Take 1 Capsule by mouth in the morning and 1 Capsule at noon and 1 Capsule before bedtime. Do all this for 7 days. 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 14 [place] flexible cystoscope inserted into urethra and guided [...] as of this encounter (statuses as of 12/14/2023) Immunizations Name Administration Dates Next Due COVID-19 mRNA, LNP-s, No Pre serve, 2-Dose Series (Bustle) 05/14/2020,04/18/2020 H1N1 2009 Influenza, IM 04/22/2009 PPD [...] Miscellaneous Notes * Telephone Encounter - Michelle Camara LPN - 12/14/2023 2:24 PM EDT See TE from 12/07 * Addendum Note - Domenica Sarkar MD - 11/30/2023 4:47 PM EDTAddended by: DOMENICA SARKAR on: 11/30/2023 04:47 PM Modules accepted: Orders * Telephone Encounter - Domenica Sarkar MD - 11/30/2023 4:42 PM EDT Amox tid x 7days sent, if n/b ann appt Ann f/u ortho for shoulder pain, as cannot use narcotics with his fall risk and hypoxia, jose not oncpap. If for back pain advice pain clinic referral -if willing pend referral * Telephone Encounter - Altagracia Shelton LPN - 11/30/2023 3:09 PM EDT JOHN. Patient is scheduled for visit with Dr. Sarkar on 12/26/23. * Telephone Encounter - Italia Rollins OSA - 11/23/2023 3:40 PM EDT Hussein from [facility] is giving a heads up with mutual pt. Fabian's weight dropped nearly 4 pounds since the last time Hussein has seen him on 11/16/23. Pt now weighing 162.4. Pt did state that he was drinking prune juice in which seemed to be very effective for him. Pt does have some chronic back pain and rated it a 5/10. He is coughing up yellow phlegm, and a runny nose something yellow sometimes clear. He is also asking if he can get something stronger than tylenol. documented in this encounter Plan of Treatment Upcoming Encounters Date Type Department Care Team (Late st Contact Info) Description 12/20/2023 9:45 AM EDT Office Visit Urology, [facility] [address] [place] [address] Man Gu MD [address] [place] [address] 12/26/2023 11:20 AM EST Office [facility] [place] [address] Domenica Sarkar MD [address] [facility] [place] [address] 03/16/2024 2:00 PM EST Office Visit Cardiology, [facility] [address] [place] [address] Job Bravo PA-C [address] [place] [address] 03/21/2024 10:30 AM EST Office Visit Orthopaedics [facility] [address] [place] [address] Ely Cabrales MD [address] [place] [address] 05/14/2024 12:20 PM EDT Office Visit Pulmonary Medicine, [facility] [address] [place] [address] Bashir Harding MD [address] [place] [address] Scheduled Procedures Name Priority Associated Diagnoses Date/Ti [...] D LEVEL ONCE IN A LIFETIME-USE SMARTSET# 05602 Completed 10/20/2023, 08/17/2023, 12/01/2022, Additional history exists [...] this encounter Medical Devices Implanted Type Area Gas Tester Device Identifier Shelf Expiration Date Model / Serial / Lot Lens Intraoc 23.0 - [id number] - [id number] Implanted:Qty: 1 on 12/21/2016 by Raj Bernard MD at OR [facility] Left: Eye BAUSCH & LOMB 06/20/2021 [id number] / [id number] / Lens Intraoc 22.0 - [id number] - [id number] Implanted:Qty: 1 on 01/06/2017 by Raj Bernard MD at OR [facility] Right: Eye BAUSCH & LOMB 08/20/2021 [id number] / [id number] / [id number] documented as of this encounter Visit Diagnoses Diagnosis Acute infective rhinitis- Primary Acute nasopharyngitis (common cold) Chronic respiratory failure with hypoxia (HCC) Chronic respiratory failure documented in this encounter Advance Directives * [...] Power of Attor bj? No Care Teams Residential Construction Instructor Relationship Specialty Start Date End Date Domenica Sarkar MD 200 [facility] [place] [address] PCP - General Internal Medicine 10/06/20 documented as of this encounter
--- OUTSIDE RECORDS SUMMARY | 2023-12-25 23:42 | External Medical Summary | Summary of Care ---
Author Name Unknown Organization [facility] Address [address] [facility] [place] [address] Phone [phone] Care Team Providers Care Electric Pile Driver Operator Name Role Phone Domenica Sarkar MD Primary Care Provider Reason for Visit * Reason Onset Date Comments Advice 11/23/2023 Encounter Details Date Type Department Care Team (Late st Contact Info) Description 11/23/2023 Telephone General Internal Medicine [facility] 200 [place] [address] Domenica Sarkar MD 200 [place] [address] Advice Allergies Active Allergy Reactions Criticality Noted Date Comments Food (See Comments) 03/21/2018 Other reaction(s): WAS TOLD NOT TO TAKE grapefruit Tramadol Other (Please comment) High 10/06/2020 Hallucinations documented as of this encounter (statuses as of 11/30/2023) Medications Medication Sig Dispensed Refills Start Date [...] Active Additional Information Patient taking differently:1,000 mg BdjqD9I PRN, ,may take 3rd dose in between [...] Oral Tablet (Lasix)Indications:Co ronary artery disease involving standing rock coronary artery of standing rock heart without angina pectoris,Chronic right-sided heart failure [...] this for 7 days. 21 Capsule 4 10/16/20 24 Active documented as of this encounter (statuses as of 11/30/2023) Active Problems Problem Noted Date Diagnosed Date Hypercalcemia 12/03/2022 Supplemental oxygen dependent 05/06/2022 Nasal septal perforation 05/06/2022 Chronic respiratory failure with hypoxia 022 Granulomatous lung disease 09/18/2021 Chronic rhinitis 06/10/2021 Schatzki's ring of distal esophagus 06/10/2021 Chronic right-sided heart failure 04/08/2020 Coronary artery disease invo lving standing rock coronary artery of standing rock heart without angina pectoris 11/21/2018 Abnormality of [...] as of this encounter (statuses as of 11/30/2023) Resolved Problems Problem Noted Date Diagnosed Date [...] and draped in usual sterile manner. 14 [place] flexible cystoscope inserted into urethra and guided [...] as of this encounter (statuses as of 11/30/2023) Immunizations Name Administration Dates Next Due COVID-19 mRNA, LNP-s, No Pre serve, 2-Dose Series (OmniGuide) 05/14/2020,04/18/2020 H1N1 2009 Influenza, IM 04/22/2009 PPD [...] encounter Miscellaneous Notes * Addendum Note - Domenica Sarkar MD [...] Shelton LPN - 11/30/2023 3:09 PM EDT FYI. Patient is scheduled for visit with Dr. Sarkar on 12/26/23. * Telephone Encounter - Italia Rollins OSA - 11/23/2023 3:40 PM EDT Hussein from [facility] is giving a heads up with mutual [...] Visit Urology, [facility] [address] [address] Man Gu MD [address] [place] [address] 12/26/2023 11:20 AM EST Office Visit General Internal Medicine [facility] 200 [facility] [place] [address] Domenica Sarkar MD 200 [facility] [place] [address] 03/16/2024 2:00 PM EST Office Visit Cardiology, [facility] [address] [address] Job Bravo PA-C [address] [place] [address] 03/21/2024 10:30 AM EST Office Visit Orthopaedics [facility] [address] [place] [address] Ely Cabrales MD [address] [place] [address] 05/14/2024 12:20 PM EDT Office Visit Pulmonary Medicine, [facility] [address] [place] [address] Bashir Harding MD [address] [place] [address] Scheduled Procedures Name Priority Associated Diagnoses Date/Ti [...] D LEVEL ONCE IN A LIFETIME-USE SMARTSET# 07073 Completed 10/20/2023, 08/17/2023, 12/01/2022, Additional history exists [...] encounter Medical Devices Implanted Type Area Rail Setter Device Identifier Shelf Expiration Date Model / Serial / Lot Lens Intraoc 23.0 - [id number] - [id number] Implanted:Qty: 1 on 12/21/2016 by Raj Bernard MD at OR [facility] Left: Eye BAUSCH & LOMB 06/20/2021 [id number] / [id number] / Lens Intraoc 22.0 - [id number] - [id number] Implanted:Qty: 1 on 01/06/2017 by Raj Bernard MD at OR [facility] Right: Eye BAUSCH & LOMB 08/20/2021 [id number] / [id number] / [id number] documented as of this encounter Visit Diagnoses [...] Power of Attor bj? No Care Teams Electric Pile Driver Operator Relationship Specialty Start Date End Date Domenica Sarkar MD [address] [place] [address] PCP - General Internal Medicine 10/06/20 documented as of this encounter
--- OUTSIDE RECORDS SUMMARY | 2023-12-25 23:42 | External Medical Summary ---
Author Name Unknown Address Unknown Organization [facility] - [address] [place] [address] Laboratory Report Ordering Provider Test Date Status JESSA METZGER 12/20/2023 10:49:53 Final Observation Date Value Abnormality Reference (Units ) Status WBC, Total 12/20/2023 10:49:53 10.97 Above high normal 4 .00-10.80 (K/uL) Final RBC 12/20/2023 10:49:53 4.93 4.50-5.25 (M/uL) Final Hemoglobin 12/20/2023 10:49:53 15.3 14.0-16.8 (g/dL) Final HCT 12/20/2023 10:49:53 47.8 40.0-48.4 (%) Final MCV 12/20/2023 10:49:53 97.0 82.0-99.5 (fL) Final MCH 12/20/2023 10:49:53 31.0 27.0-34.0 (pg) Final MCHC 12/20/2023 10:49:53 32.0 32.0-36.0 (g/dL) Final RDW 12/20/2023 10:49:53 14.0 11.5-15.5 (%) Final Platelets 12/20/2023 10:49:53 159 140-400 (K /uL) Final MPV 12/20/2023 10:49:53 9.8 6.6-11.1 ( fL) Final Performing Location [facility]ORY [facility] [place] [address] - [address] [place] [address]
--- OUTSIDE RECORDS SUMMARY | 2023-12-25 23:42 | External Medical Summary | Summary of Care ---
Author Name Unknown Organization [facility] Address [address] [facility] [place] [address] Phone [phone] Care Team Providers Care Oil Well Drilling Manager Name Role Phone Jennifer Sarkar MD Primary Care Provider [phone] Reason for Visit * Reason Onset Date Comments Advice 11/23/2023 Encounter Details Date Type Department Care Team (Late st Contact Info) Description 11/23/2023 Telephone General Internal Medicine [facility] 200 [place] [address] Jennifer Sarkar MD 200 [place] [address] Advice Allergies Active Allergy Reactions Criticality Noted [...] Active Additional Information Patient taking differently:1,000 mg HlbrY4H PRN, ,may take 3rd dose in between [...] Oral Tablet (Lasix)Indications:Co ronary artery disease involving kletsel dehe wintun coronary artery of kletsel dehe wintun heart without angina pectoris,Chronic right-sided heart failure [...] 12 g 2 4 08/05/19 25 Active documented as of this encounter (statuses as of 11/30/2023) Active Problems Problem Noted Date Diagnosed Date Hypercalcemia 12/03/2022 Supplemental oxygen dependent 05/06/2022 Nasal septal perforation 05/06/2022 Chronic respiratory failure with hypoxia 022 Granulomatous lung disease 09/18/2021 Chronic rhinitis 06/10/2021 Schatzki's ring of distal esophagus 06/10/2021 Chronic right-sided heart failure 04/08/2020 Coronary artery disease invo lving kletsel dehe wintun coronary artery of kletsel dehe wintun heart without angina pectoris 11/21/2018 Abnormality of [...] mRNA, LNP-s, No Pre serve, 2-Dose Series (BidThatProject) 05/14/2020,04/18/2020 H1N1 2009 Influenza, IM 04/22/2009 PPD [...] - 11/23/2023 3:40 PM EDT Hussein from [facility] is giving a heads up with mutual [...] 12/20/2023 9:45 AM EDT Office Visit Urology, [facility] 132 [facility] [place] [address] Man Gu MD [address] [place] [address] 12/26/2023 11:20 AM EST Office Visit General Internal Medicine [facility] [address] [place] [address] Jennifer Sarkar MD [address] [place] [address] 03/16/2024 2:00 PM EST Office Visit Cardiology, [facility] [address] [facility] [place] [address] Job Bravo PA-C [address] [place] [address] 03/21/2024 10:30 AM EST Office Visit Orthopaedics [facility] [address] [place] [address] Ely Cabrales MD [address] [place] [address] 05/14/2024 12:20 PM EDT Office Visit Pulmonary Medicine, [facility] 132 [facility] [place] [address] Bashir Harding MD [address] [place] [place] [address] Scheduled Procedures Name Priority Associated Diagnoses Date/Ti [...] D LEVEL ONCE IN A LIFETIME-USE SMARTSET# 80173 Completed 10/20/2023, 08/17/2023, 12/01/2022, Additional history exists [...] this encounter Medical Devices Implanted Type Area Vineyard Worker Device Identifier Shelf Expiration Date Model / Serial / Lot Lens Intraoc 23.0 - [id number] - [id number] Implanted:Qty: 1 on 12/21/2016 by Raj Bernard MD at OR [facility] Left: Eye BAUSCH [employer] LOMB 06/20/2021 [id number] / [id number] / Lens Intraoc 22.0 - [id number] - [id number] Implanted:Qty: 1 on 01/06/2017 by Raj Bernard MD at OR [facility] Right: Eye BAUSCH & LOMB 08/20/2021 [id number] / [id number] / [id number] documented as of this encounter Advance Directives [...] Power of Attor bj? No Care Teams Oil Well Drilling Manager Relationship Specialty Start Date End Date Jennifer Sarkar MD 200 [place] [address] PCP - General Internal Medicine 10/06/20 documented as of this encounter
--- OUTSIDE RECORDS SUMMARY | 2023-12-25 23:42 | External Medical Summary ---
Author Name Unknown Address Unknown Organization K01:[facility] [address] [place] [address] Laboratory Report Ordering Provider Test Date Status JESSA METZGER 12/20/2023 10:49:53 Final Observation Date Value Abnormality Reference (Units ) Status T4, Free 12/20/2023 10:49:53 1.6 0.9-1.7 (n g/dL) Final Performing Location [facility] - [address] [place] [address]
--- OUTSIDE RECORDS SUMMARY | 2023-12-25 23:42 | External Medical Summary ---
Author Name Unknown Address Unknown Organization [id number]:LABORATORY [facility] [place] - [address] [place] [address] Laboratory Report Ordering Provider Test Date Status JESSA METZGER 12/20/2023 10:49:53 Final Observation Date Value Abnormality Reference (Units ) Status TSH 12/20/2023 10:49:53 6.60 Above high normal 0. 27-4.20 (uIU/mL) Final Performing Location LABORATORY C - [address] [address]
--- OUTSIDE RECORDS SUMMARY | 2023-12-25 23:42 | External Medical Summary | Summary of Care ---
Author Name Unknown Organization [facility] Address [address] [facility] [place] [address] Phone [phone] Care Team Providers Care Fabrics And Material Cutter Name Role Phone Domenica Sarkar MD Primary Care Provider Reason for Visit * Reason Comments Follow Up Encounter Details Date Type Department Care Team (Late st Contact Info) Description 12/20/2023 9:45 AM EDT [facility] [address] [facility] [place] [address] Man Gu MD [address] [place] [address] Calculus of kidney*; BPH with obstruction/lower urinary tract symptoms; Dysuria; Elevated prostate specific antigen (PSA); Urge incontinence Allergies Active Allergy Reactions Criticality Noted Date [...] Active Additional Information Patient taking differently:1,000 mg [id number] PRN, ,may take 3rd dose in between --12/21/2021, Reported on 12/21/2022 Saline Nasal Gel (Nasogel)Indications :Chronic respiratory failure [...] Tablet 1 02/12/20 23 Active oxygen 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:Chron ic respiratory [...] bedtime. 270 Tablet 3 07/23/19 24 Active Furosemide 40 MG Oral Tablet (Lasix)Indications:C oronary artery disease involving unga coronary artery of unga heart without angina pectoris,Chronic right-sided heart failure (HCC),Bilateral leg edema,Encounter for monitoring diuretic therapy 40 mg in the AM and 20 mg in the early afternoon 135 Tablet 3 09/08/19 24 Active Levothyroxine Sodium 112 MCG Oral [...] 06/23/2023. 90 Capsule 3 10/18/19 24 Active Rosuvastatin Calcium 5 MG Oral Tablet (Crestor)Indications :Dyslipidemia, goal LDL below 100,S/P primary angioplasty with coronary stent TAKE 1 TABLET BY MOUTH EVERY DAY 30 Tablet 11/08/19 24 Active Albuterol Sulfate HFA 108 (90 Base) MCG/ACT Inhalation Aerosol Solution Inhale 2 Puffs by mouth every 6 hours as needed for Wheezing or Dyspnea. 18 g 11 11/08/19 24 025 Active Combivent Respimat 20-100 MCG/ACT Inhalation Aerosol Solution (Ipratropium-Albuter ol)Indications:Granu lomatous lung disease (HCC),Chronic respiratory failure with hypoxia (HCC) Inhale 1 Puff by mouth in the morning and 1 Puff at noon and 1 Puff in the evening and 1 Puff before bedtime. 12 g 2 11/08/19 24 025 Active Dutasteride 0.5 MG Oral Capsule (Avodart) Take 1 Capsule by mouth in the morning. 90 Capsule 3 12/20/19 24 Active Finasteride 5 MG Oral Tablet (Proscar) Take 1 Tablet by mouth in the morning. 90 Tablet 3 08/03/19 24 024 Discontinued documented as of this encounter (statuses as of 12/20/2023) Active Problems Problem Noted Date Diagnosed Date Hypercalcemia 12/03/2022 Supplemental oxygen dependent 05/06/2022 Nasal septal perforation 05/06/2022 Chronic respiratory failure with hypoxia 022 Granulomatous lung disease 09/18/2021 Chronic rhinitis 06/10/2021 Schatzki's ring of distal esophagus 06/10/2021 Chronic right-sided heart failure 04/08/2020 Coronary artery disease invo lving unga coronary artery of unga heart without angina pectoris 11/21/2018 Abnormality of [...] and draped in usual sterile manner. 14 [place]i flexible cystoscope inserted into urethra and guided [...] mRNA, LNP-s, No Pre serve, 2-Dose Series ([place]) 05/14/2020,04/18/2020 H1N1 2009 Influenza, IM 04/22/2009 PPD [...] Progress Notes * Man Gu MD - 12/20/2023 9:52 AM EDT [id number] [place]: [place] [address] [phone] Fabian Starks is a comorbid 83 year old male, who presents for follow-up of his bothersome voiding symptoms. Patient's past notes reviewed. Patient is currently on maximal medical therapy but continues to have bothersome voiding symptoms. He is here with his son. He notes hesitancy, dysuria, persistent bother. BPH: Patient is being seen for BPH today. He has had the following symptoms: hesitancy, dysuria, slow stream, intermittency, and nocturia. Severity is moderate. He has tried tamsulosin, started by PMD Jul 2023. He has previously had cysto done 2005. Problem has been present for years. Problem is getting worse. CT scan June of 2023 demonstrates BPH and 15 mm left renal stone. Using 1-3 pull ups per day. Urolithiasis: Patient is being seen for stone [...] stones. Previous evaluation was done by urologist. PSA Results: Lab Results Component Value Date/Time PSA - [facility] 8.51 (H) 08/17/2023 08:38 AM PSA - [facility] 0.83 07/27/2004 11:41 AM [...] dose in between --12/21/2021) 1 Tablet 0 Saline Nasal Gel (Nasogel) Administer into each nostril daily. For dryness(nasal septal perforation) 14 g 0 Meclizine HCl 12.5 MG Oral Tablet (Antivert) TAKE 1 TABLET BY MOUTH THREE TIMES A DAY NEEDED FORDIZZINESS 30 Tablet 1 Clopidogrel Bisulfate 75 MG Oral Tablet (pLAVix) TAKE 1 TABLET DAILY 90 Tablet 1 oxygen IN GAS Use 3lpm continuous, increased to 4lpm with exertion. Changed 03/23/23 1 Each 0 Propranolol HCl 20 MG Oral Tablet (Inderal) Take 1 Tablet by mouth in the morning and 1 Tablet at noon and 1 Tablet before bedtime. 270 Tablet 3 Finasteride 5 MG Oral Tablet (Proscar) Take 1 Tablet by mouth in the morning. 90 Tablet 3 Furosemide 40 MG Oral Tablet (Lasix) 40 mg in the AM and 20 mg in the early afternoon 135 Tablet 3 Levothyroxine Sodium 112 MCG Oral [...] OR CHEW--INC FROM 06/23/2023. 90 Capsule 3 Rosuvastatin Calcium 5 MG Oral Tablet (Crestor) TAKE 1 TABLET BY MOUTH EVERY DAY 30 Tablet 5 Albuterol Sulfate HFA 108 (90 Base) MCG/ACT Inhalation Aerosol Solution Inhale 2 Puffs by mouth every 6 hours as needed for Wheezing or Dyspnea. 18 g 11 Combivent Respimat 20-100 MCG/ACT Inhalation Aerosol Solution (Ipratropium- Albuterol) Inhale 1 Puffby mouth in the morning and 1 Puff at noon and 1 Puff in the evening and 1 Puff before bedtime. 12 g 2 No current facility-administered medications for this visit. Review of patient's allergies indicates: Allergen Reactions Tramadol Other (Please comment) Hallucinations Food (See Comments) Other reaction(s): WAS TOLD NOT TO TAKE grapefruit Social History: Social History Tobacco Use Smoking status: Former Types: Pipe, Cigars Quit date: 1961 Years since quittin.8 Smokeless tobacco: Never Tobacco comments: Smoked a [...] performed by ANSHU FOFANA at [facility] [place]ONOSCOPY W/ LESION REMOVAL, SNARE 02/01/2007 repeat in 5-10 yrs COLONOSCOPY, DIAGNOSTIC (RECTUM) 06/03/2017 adenomatous polyp, repeat 5 yrs/[facility] CYSTOSCOPY 03/30/2005 stent removal EGD, FLEXIBLE, DIAGNOSTIC 11/24/2012 UPPER GI ENDOSCOPY DIAGNOSTIC performed by Nakia Benton DO at [facility] EGD, FLEXIBLE, DIAGNOSTIC 07/15/2015 Schatzki ring, sm HH/[facility] EGD, FLEXIBLE, DIAGNOSTIC 03/21/2018 erosive gastropathy, [facility] EGD, FLEXIBLE, DIAGNOSTIC 08/21/2021 hiatal hernia / [facility] FRAGMENT KIDNEY STONE BY SHOCK WAVE 03/26/2005 ESWL (Extracorporeal Shock Wave Lithotripsy) INFORMATION bilateral hernia repair REMOVAL OF TONSILS, UNDER AGE 12 REMOVE CATARACT, INSERT LENS PROSTH Left 12/21/2016 left EXTRACAPSULAR CATARACT REMOVAL WITH INTRAOCULAR LENS performed by Raj Bernard MD at OR [facility] REMOVE CATARACT, INSERT LENS PROSTH Right 01/06/2017 right EXTRACAPSULAR CATARACT REMOVAL WITH INTRAOCULAR LENS performed by Raj Bernard MD at OR [facility] Past Medical History: Diagnosis Date Acquired hypothyroidism ANGIOPLASTY WITH CORONARY STENT TO LAD - bare Metal 10/16/2008 Calculus of ureter 04/01/2005 Chronic respiratory failure with hypoxia (HCC) 11/14/2021 Chronic right-sided heart failure (HCC) 04/08/2020 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 of unga heart without angina pectoris 11/21/2018 Dyslipidemia, goal [...] with delayed healing 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 of unga heart without angina pectoris Abnormality of gait Chronic right-sided heart failure (HCC) Chronic rhinitis Schatzki'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 Constitutional: General: He is in acute distress (respiratory). Appearance: He is obese. He is ill-appearing. He is not toxic-appearing. Comments: Using cane HENT: Head: Normocephalic. Right Ear: External ear normal. Left Ear: External ear normal. Nose: Nose normal. Mouth/Throat: Mouth: Mucous membranes are moist. Eyes: Extraocular Movements: Extraocular movements intact. Cardiovascular: Pulses: Normal pulses. Pulmonary: Effort: Respiratory distress (dyspnea with speech, NC O2) present. Breath sounds: Rales present. Abdominal: General: There is no distension. Palpations: Abdomen is soft. Skin: Coloration: Skin is not pale. Neurological: Mental Status: He is oriented to person, place, and time. Motor: Weakness present. Gait: Gait abnormal. Psychiatric: Thought Content: Thought content normal. Impression/Plan: 83-year-old male with stone disease, persistent BPH symptoms. Findings reviewed with the patient. Elevated PSA noted, will recheck a value today. I suspect BPH and inflammation to be the source of the patient's difficulties. Will try switching to dutasteride tosee if this improves the patient's voiding at all. Will avoid increasing dose of tamsulosin seen baseline unsteadiness. Will see the patient back in 4 months, can consider cystoscopy at that time if he continues to have persistent voiding difficulties. However, considering his poor pulmonary status, we will try to avoid surgical intervention if at all possible. Worrisome signs and symptoms are reviewed. Above content is personally reviewed. Patient vocalizes good understanding of the treatment plan. Man Gu MD 9:53 AM 12/20/2023 documented in this encounter Nursing Notes * Lorena David LPN - 12/20/2023 9:53 AM EDT 4 month ret Stones, BPH Tamsulosin, finasteride PSA Results: Lab Results Component Value Date/Time PSA - [facility] 8.51 (H) 08/17/2023 08:38 AM PSA - [facility] 0.83 07/27/2004 11:41 AM PSA - [facility] 1.01 12/19/2002 02:44 PM PSA - [facility] 0.97 11/02/2001 03:44 PM PSA SCREENING 1.34 10/13/2010 10:07 AM PSA SCREENING 1.39 08/28/2009 12:05 PM PSA SCREENING 1.14 01/15/2008 11:26 AM C/o- hesitancy with urination, difficult starting/pain with urination Pvr-324 ml documented in this encounter Plan of Treatment Upcoming Encounters Date Type Department Care Team (Late st Contact Info) Description 12/26/2023 11:20 AM EST Office Visit General Internal Medicine [facility] [place] [address] [place] [address] Domenica Sarkar MD [address] [place] [address] 03/16/2024 2:00 PM EST [facility] [address] [place], [place] [address] Job Bravo PA-C [address] [place], [place] [address] 03/21/2024 10:30 AM EST [facility] [place] [address] Ely Cabrales MD [address] [place] [address] 05/14/2024 12:20 PM EDT Office Visit Pulmonary [facility] [address] [place], [place] [address] Bashir Harding MD [address] [place] [address] Scheduled Orders Name Type Priority Associated Diagnoses Orde r Schedule PSA WITH FREE PSA IF INDICATED Lab Routine Elevated prostate specific antigen (PSA) Expected: 12/20/2023, Expires: 12/19/2024 Scheduled Procedures Name Priority Associated Diagnoses Date/Ti [...] D LEVEL ONCE IN A LIFETIME-USE SMARTSET# 86101 Completed 10/20/2023, 08/17/2023, 12/01/2022, Additional history exists [...] this encounter Medical Devices Implanted Type Area Lunchroom Operator Device Identifier Shelf Expiration Date Model / Serial / Lot Lens Intraoc 23.0 - [id number] - [id number] Implanted:Qty: 1 on 12/21/2016 by Raj Bernard MD at OR [facility] Left: Eye BAUSCH & LOMB 06/20/2021 [id number] / [id number] / Lens Intraoc 22.0 - [id number] - [id number] Implanted:Qty: 1 on 01/06/2017 by Raj Bernard MD at OR [facility] Right: Eye BAUSCH & LOMB 08/20/2021 [id number] / [id number] / [id number] documented as of this encounter Visit Diagnoses Diagnosis Calculus of kidney- Primary BPH with obstruction/lower urinary tract symptoms Hypertrophy of prostate with urinary obstruction and other lower urinary tract symptoms (LUTS) Dysuria Elevated prostate specific antigen (PSA) Urge incontinence documented in this encounter Advance Directives * [...] Power of Attor bj? No Care Teams Fabrics And Material Cutter Relationship Specialty Start Date End Date Domenica Sarkar MD [address] [place] [address], [place] [address] PCP - General Internal Medicine 10/06/20 documented as of this encounter
--- OUTSIDE RECORDS SUMMARY | 2023-12-25 23:42 | External Medical Summary | Summary of Care ---
Author Name Unknown Organization [facility] Address [address] [facility] [place] [address] Phone [phone] Care Team Providers Care Flap Curer Name Role Phone Jennifer Sarkar MD Primary Care Provider [phone] Reason for Visit * Reason Onset Date Comments Advice 12/08/2023 Encounter Details Date Type Department Care Team (Late st Contact Info) Description 12/08/2023 Telephone General Internal Medicine [facility] [address] [place] [address] Jennifer Sarkar MD [address] [place] [address] Advice Allergies Active Allergy Reactions Criticality Noted [...] Active Additional Information Patient taking differently:1,000 mg [id number] PRN, ,may take 3rd dose in between [...] Oral Tablet (Lasix)Indications:Co ronary artery disease involving [place] coronary artery of [place] heart without angina pectoris,Chronic right-sided heart [...] failure 04/08/2020 Coronary artery disease invo lving [place] coronary artery of [place] heart without angina pectoris 11/21/2018 Abnormality [...] mRNA, LNP-s, No Pre serve, 2-Dose Series (get2play) 05/14/2020,04/18/2020 H1N1 2009 Influenza, IM 04/22/2009 PPD [...] Telephone Encounter - Karissa Ryan LPN - 12/08/2023 11:40 AM EDT Cornel SEPULVEDA, Calling from: [facility] He is just calling in to get clarification on why patient was prescribed the Amoxicillin 500mg. Advised that on 11/23/2023 I looks like there was a call placed that patient was coughing up yellow phlegm, runny nose with yellow to clear drainage. Associated Diagnosis with the script: Acute infective rhinitis [J00] - Primary Chronic respiratory failure with hypoxia (HCC) [J96.11] No further questions or concerns at this time. * Telephone Encounter - Chapincito García OSA - 12/08/2023 11:34 AM EDT Reason for patient's call: Medication Question for patient of Dr Mello Hahn was transferred to Karissa at the nurse line. documented in this encounter Plan of Treatment Upcoming Encounters Date Type Department Care Team (Late st Contact Info) Description 12/20/2023 9:45 AM EDT Office Visit Urology, [facility] 132 [facility] [place] [address] Man Gu MD [address] [place] [address] 12/26/2023 11:20 AM EST Office Visit General Internal Medicine [facility] [address] [place] [address] Jennifer Sarkar MD [address] [place] [address] 03/16/2024 2:00 PM EST Office Visit Cardiology, [facility] [address] [facility] [place] [address] Job Bravo PA-C [address] [place] [address] 03/21/2024 10:30 AM EST Office Visit Orthopaedics [facility] [address] [place] [address] Ely Cabrales MD [address] [place] [address] 05/14/2024 12:20 PM EDT Office Visit Pulmonary Medicine, [facility] 132 [facility] [place] [address] Bashir Harding MD [address] [place] [address] Scheduled Procedures Name Priority Associated Diagnoses Date/Ti [...] D LEVEL ONCE IN A LIFETIME-USE SMARTSET# [id number] Completed 10/20/2023, 08/17/2023, 12/01/2022, Additional history exists [...] this encounter Medical Devices Implanted Type Area Concert Manager Device Identifier Shelf Expiration Date Model / Serial / Lot Lens Intraoc 23.0 - [id number] - [id number] Implanted:Qty: 1 on 12/21/2016 by Raj Bernard MD at OR [facility] Left: Eye BAUSCH & LOMB 06/20/2021 [id number] / [id number] / Lens Intraoc 22.0 - [id number] - [id number] Implanted:Qty: 1 on 01/06/2017 by Raj Bernard MD at OR [facility] Right: Eye BAUSCH & LOMB 08/20/2021 [id number] / [id number] / [id number] documented as of this encounter Advance Directives [...] Power of Attor bj? No Care Teams Flap Curer Relationship Specialty Start Date End Date Jennifer Sarkar MD [address] [place] [address] PCP - General Internal Medicine 10/06/20 documented as of this encounter
--- OUTSIDE RECORDS SUMMARY | 2023-12-25 23:42 | External Medical Summary ---
Author Name Unknown Address Unknown Organization K[facility] [address] [place] [address] Laboratory Report Ordering Provider Test Date Status JESSA METZGER 12/20/2023 10:49:53 Final Observation Date Value Abnormality Reference (Units ) Status Alk Phos 12/20/2023 10:49:53 116 35-130 (U/ L) Final Performing Location LABORATORY [facility] [place] [address] 0 - [address] [place] [address]
--- OUTSIDE RECORDS SUMMARY | 2023-12-25 23:42 | External Medical Summary | Summary of Care ---
Author Name Unknown Organization [facility] Address [address] [facility] [place] [address] Phone [phone] Care Team Providers Care Celery Tier Name Role Phone Domenica Sarkar MD Primary Care Provider [phone] Reason for Visit * Reason Comments Follow Up Encounter Details Date Type Department Care Team (Late st Contact Info) Description 12/20/2023 9:45 AM EDT Office Visit Urology, [facility] 132 [facility] [place] [address] Man Gu MD [address] [place] [...] Active Additional Information Patient taking differently:1,000 mg [id number] PRN, ,may take 3rd dose in between [...] Oral Tablet (Lasix)Indications:C oronary artery disease involving [place] coronary artery of [place] heart without angina pectoris,Chronic right-sided heart failure [...] failure 04/08/2020 Coronary artery disease invo lving [place] coronary artery of [place] heart without angina pectoris 11/21/2018 Abnormality of [...] and draped in usual sterile manner. 14 [place] flexible cystoscope inserted into urethra and guided [...] mRNA, LNP-s, No Pre serve, 2-Dose Series (B[place]r) 05/14/2020,04/18/2020 H1N1 2009 Influenza, IM 04/22/2009 PPD [...] Gu MD - 12/20/2023 9:52 AM EDT [id number] PCP: [place] [address] [phone] Fabian Starks is a comorbid 83 year [...] performed by ANSHU FOFANA at [facility] COLONOSCOPY W/ LESION REMOVAL, SNARE 02/01/2007 repeat in 5-10 yrs COLONOSCOPY, DIAGNOSTIC (RECTUM) 06/03/2017 adenomatous polyp, repeat 5 yrs/[facility]STOS[facility] 03/30/2005 stent removal EGD, FLEXIBLE, DIAGNOSTIC 11/24/2012 UPPER GI ENDOSCOPY DIAGNOSTIC performed by Nakia Benton DO at [facility] EGD, FLEXIBLE, DIAGNOSTIC 07/15/2015 Schatzki ring, sm HH/[facility] EGD, FLEXIBLE, DIAGNOSTIC 03/21/2018 erosive gastropathy, [facility]ous es[facility] EGD, FLEXIBLE, DIAGNOSTIC 08/21/2021 hiatal hernia / [facility] FRAGMENT KIDNEY STONE BY SHOCK WAVE 03/26/2005 ESWL (Extracorporeal Shock Wave Lithotripsy) INFORMATION bilateral hernia repair REMOVAL OF TONSILS, UNDER AGE 12 REMOVE CATARACT, INSERT LENS PROSTH Left 12/21/2016 left EXTRACAPSULAR CATARACT REMOVAL WITH INTRAOCULAR LENS performed by Raj Bernard MD at [facility] REMOVE CATARACT, INSERT LENS PROSTH Right 01/06/2017 right EXTRACAPSULAR CATARACT REMOVAL WITH INTRAOCULAR LENS performed by Raj Bernard MD at OR [facility] Past Medical History: Diagnosis Date Acquired hypothyroidism ANGIOPLASTY WITH CORONARY STENT TO LAD - bare Metal 10/16/2008 Calculus of ureter 04/01/2005 Chronic respiratory failure with hypoxia (HCC) 11/14/2021 Chronic right-sided heart failure (HCC) 04/08/2020 Coronary artery disease involving [place] coronary artery of [place] heart without angina pectoris 11/21/2018 Dyslipidemia, goal [...] with delayed healing Coronary artery disease involving [place] coronary artery of [place] heart without angina pectoris Abnormality of gait [...] Description 12/20/2023 10:50 AM EDT Laboratory Laboratory, [facility] [address] [place] [phone] Michael Sampson [address] [place] [address] Arrived 12/26/2023 11:20 AM EST Office Visit General Internal Medicine [facility] 200 [facility] [place] [address] Domenica Sarkar MD 200 [facility] [place] [address] 03/16/2024 2:00 PM EST Office Visit Cardiology, [facility] 132 [facility] [place] [address] Job Bravo PA-C 132 [facility] [place] [address] 03/21/2024 10:30 AM EST Office Visit Orthopaedics [facility] 132 [facility] [place] [address] Ely Cabrales MD 132 [place] [address] 04/18/2024 3:30 PM EST Procedure Only Urology, [facility] 132 [facility] [place] [address] Man Gu MD [address] [place] [address] 05/14/2024 12:20 PM EDT Office Visit Pulmonary Medicine, [facility] 132 [facility] [place] [address] Bashir Harding MD [address] [place] [address] Scheduled Orders Name Type Priority Associated Diagnoses [...] D LEVEL ONCE IN A LIFETIME-USE SMARTSET# [id number] Completed 10/20/2023, 08/17/2023, 12/01/2022, Additional history exists [...] this encounter Medical Devices Implanted Type Area Sample Patternmaker Device Identifier Shelf Expiration Date Model / Serial / Lot Lens Intraoc 23.0 - [id number] - [id number] Implanted:Qty: 1 on 12/21/2016 by Raj Bernard MD at OR [facility] Left: Eye BAUSCH & LOMB 06/20/2021 [id number] / [id number] / Lens Intraoc 22.0 - [id number] - [id number] Implanted:Qty: 1 on 01/06/2017 by Raj Bernard MD at [facility] Right: Eye BAUSCH & LOMB 08/20/2021 [id number] / [id number] / [id number] documented as of this encounter Visit Diagnoses [...] Power of Attor bj? No Care Teams Celery Tier Relationship Specialty Start Date End Date Domenica Sarkar MD 200 [facility] [place] [address] PCP - General Internal Medicine 10/06/20 documented as of this encounter
--- OUTSIDE RECORDS SUMMARY | 2023-12-25 23:43 | External Medical Summary | Summary of Care ---
Author Name Unknown Organization [facility] Address [address] [facility] [place] [address] Phone [phone] Care Team Providers Care Mold Car Pusher Name Role Phone Jennifer Sarkar MD Primary Care Provider [phone] Reason for Visit * Reason Onset Date Comments Test Results 11/15/2023 Encounter Details Date Type Department Care Team (Late st Contact Info) Description 11/15/2023 Telephone Nephrology, [facility] [address] [place] [address] Yumiko Philippe MD 200 [place] [address] Test Results Allergies Active Allergy Reactions Criticality Noted Date Comments Food (See Comments) 03/21/2018 Other reaction(s): WAS TOLD NOT TO TAKE grapefruit Tramadol Other (Please comment) High 10/06/2020 Hallucinations documented as of this encounter (statuses as of 11/16/2023) Medications Medication Sig Dispensed Refills Start Date [...] Active Additional Information Patient taking differently:1,000 mg [id number] PRN, ,may take 3rd dose in between [...] Oral Tablet (Lasix)Indications:Co ronary artery disease involving [place] coronary artery of [place] heart without angina pectoris,Chronic right-sided heart failure [...] or Dyspnea. 18 g 11 4 09/04/19 Active Combivent Respimat 20-100 MCG/ACT Inhalation Aerosol Solution (Ipratropium-Albutero l)Indications:Granulo matous lung disease (HCC),Chronic respiratory failure with hypoxia (HCC) Inhale 1 Puff by mouth in the morning and 1 Puff at noon and 1 Puff in the evening and 1 Puff before bedtime. 12 g 2 4 08/05/19 25 Active documented as of this encounter (statuses as of 11/16/2023) Active Problems Problem Noted Date Diagnosed Date [...] as of this encounter (statuses as of 11/16/2023) Resolved Problems Problem Noted Date Diagnosed Date [...] in usual sterile manner. 14 Citizen Of [place] flexible cystoscope inserted into urethra and guided [...] as of this encounter (statuses as of 11/16/2023) Immunizations Name Administration Dates Next Due COVID-19 mRNA, LNP-s, No Pre serve, 2-Dose Series ([employer]) 05/14/2020,04/18/2020 H1N1 2009 Influenza, IM 04/22/2009 PPD [...] Telephone Encounter - Pippa Ryan RN - 11/15/2023 4:02 PM EDT TE with pt regarding urine results. Asking about urorisk results which appear to still be in process. Will follow up with this. * Telephone Encounter - Pippa Ryan RN - 11/15/2023 4:02 PM EDT ----- Message from Yumiko Philippe MD sent at 11/15/2023 4:01 PM EDT ----- No blood protein or infection in urine; continue same documented in this encounter Plan of Treatment Upcoming Encounters Date Type Department Care Team (Late st Contact Info) Description 11/29/2023 11:20 AM EDT Office Visit General Internal Medicine [facility] [address] [place] [address] Jennifer Sarkar MD [address] [place] [address] 11/30/2023 12:30 PM EDT Office Visit Orthopaedics [facility] [address] [address] Ely Cabrales MD [address] [place] [address] 12/20/2023 9:45 AM EDT Office Visit Urology, [facility] 132 [facility] [place] [address] Man Gu MD [address] [place] [address] 12/26/2023 11:20 AM EST Office Visit General Internal Medicine [facility] 200 [facility] [place] [address] Jennifer Sarkar MD 200 [facility] [place] [address] 03/16/2024 2:00 PM EST Office Visit Cardiology, [facility] 132 [facility] [place] [address] Job Bravo PA-C 132 [facility] [place] [address] 05/14/2024 12:20 PM EDT Office Visit Pulmonary Medicine, [facility] 132 [facility] [place] [address] Bashir Harding MD [address] [place] [address] Scheduled Procedures Name Priority Associated Diagnoses Date/Ti [...] D LEVEL ONCE IN A LIFETIME-USE SMARTSET# [id number] Completed 10/20/2023, 08/17/2023, 12/01/2022, Additional history exists [...] this encounter Medical Devices Implanted Type Area Counter Stitcher Device Identifier Shelf Expiration Date Model / Serial / Lot Lens Intraoc 23.0 - [id number] - [id number] Implanted:Qty: 1 on 12/21/2016 by Raj Bernard MD at OR [facility] Left: Eye [employer] LOMB 06/20/2021 [id number] / [id number] / Lens Intraoc 22.0 - [id number] - [id number] Implanted:Qty: 1 on 01/06/2017 by Raj Bernard MD at OR [facility] Right: Eye BAUSCH [employer] LOMB 08/20/2021 [id number] / [id number] / [id number] documented as of this encounter Advance Directives [...] Power of Attor bj? No Care Teams Mold Car Pusher Relationship Specialty Start Date End Date Jennifer Sarkar MD 200 [place] [address] PCP - General Internal Medicine 10/06/20 documented as of this encounter
--- OUTSIDE RECORDS SUMMARY | 2023-12-25 23:43 | External Medical Summary | Summary of Care ---
Author Name Unknown Organization [facility] Address [address] [place] [address] Phone [phone] Care Team Providers Care Drill Foreman Name Role Phone Jennifer Sarkar MD Primary Care Provider Reason for Visit * Reason Comments Follow Up Bilateral shoulder Encounter Details Date Type Department Care Team (Late st Contact Info) Description 11/30/2023 12:30 PM EDT Office Visit Orthopaedics [facility] [address] [place] [address] Ely Cabrales MD [address] [place] [address] Nontraumatic complete tear of right rotator cuff*; Nontraumatic complete tear of left rotator cuff; Osteoarthritis of bilateral glenohumeral joints Allergies Active Allergy Reactions Criticality Noted Date [...] Active Additional Information Patient taking differently:1,000 mg [id number] PRN, ,may take 3rd dose in between [...] Oral Tablet (Lasix)Indications:Co ronary artery disease involving tribal coronary artery of tribal heart without angina pectoris,Chronic right-sided heart failure [...] 12 g 2 4 08/05/19 25 Active Hospital, Clinic, or Other Facility Administered Medication Ordered Dose Route Frequency Start Date End Date Status lidocaine 1% 1 mL - triamcinolone acetonide 40 mg/mL 1 mL inj 2 mLIndications:Nontraumatic complete tear of right rotator cuff,Nontraumatic complete tear of left rotator cuff 2 mL IJ ONCE 11/30/2023 12/01/2023 Active lidocaine 1% 1 mL - triamcinolone acetonide 40 mg/mL 1 mL inj 2 mLIndications:Nontraumatic complete tear of right rotator cuff,Nontraumatic complete tear of left rotator cuff 2 mL IJ ONCE 11/30/2023 12/01/2023 Active documented as of this encounter (statuses as of 11/30/2023) Active Problems Problem Noted Date Diagnosed Date Hypercalcemia 12/03/2022 Supplemental oxygen dependent 05/06/2022 Nasal septal perforation 05/06/2022 Chronic respiratory failure with hypoxia 022 Granulomatous lung disease 09/18/2021 Chronic rhinitis 06/10/2021 Schatzki's ring of distal esophagus 06/10/2021 Chronic right-sided heart failure 04/08/2020 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 Screening for prostate cancer 01/03/2007 [...] Date Smoking Tobacco: Former Pipe Q uit: 1962 Cigars Quit: 1961 Smokeless Tobacco: Never Comments:Smoked [...] Progress Notes * Ely Cabrales MD - 11/30/2023 1:01 PM EDT Fabian Starks is a 83 year old male who presents for follow up of bilateral shoulder to [facility]. Fabian Starks is here unaccompanied History: Chief Complaint Patient presents with Follow Up Bilateral shoulder Nursing Notes: Mihaela Meyers MED ASSIST 11/30/23 1230 Signed Patient presents today for bilateral shoulder injection. Previously injected 08/17/23, which only lasted 3 weeks. I initially saw patient 08/17/2023 for bilateral shoulder pain due to arthritis and rotator cuff arthropathy. Patient had done well with landmark guided subacromial injections in the past. This was repeated at that visit. Unfortunately, it only provided him with one-month of relief. He does feel that one-month relief is worth going through the injections Continues to do home exercise program Review of systems: All others negative except those noted above in HPI. Objective: Physical Exam There were no vitals filed for this visit. Estimated body mass index is 27.42 kg/m as calculated from the following: Height as of 11/08/23: 1.651 m (5' 5"). Weight as of 11/08/23: 74.7 kg (164 lb 12 oz). General: generally well-nourished and in no acute [...] (I have personally reviewed the following films): Assessment and Plan: ICD-10-CM 1. Nontraumatic complete tear of right rotator cuff M75.121 2. Nontraumatic complete tear of left rotator cuff M75.122 3. Osteoarthritis of bilateral glenohumeral joints M19.011 M19.012 Mr. Thompson is a pleasant 83-year-old male who is seen today for bilateral shoulder pain due to rotator cuff arthropathy and glenohumeral joint osteoarthritis. Has done well with subacromial injectionsin the past but most recent injections only provided him with one-month relief. Discussed option of trialing a glenohumeral joint injection to see if this provides him anymore relief as he does have bilateral glenohumeral joint osteoarthritis. After reviewing indications risks benefits alternativespatient elected to proceed. See procedure note below. We will have him follow up in 3-4 months but he will contact me sooner if needed If he does not have greater than one-month of relief with this injection recommend suprascapular nerve block and possible referral to pain management for suprascapular nerve ablation The above assessment and plan were discussed at length. All questions were answered, and the patient expressed understanding. Ely Cabrales MD Primary Care Sports Medicine [facility] [address] [address] PROCEDURE NOTE: SHOULDER GLENOHUMERAL JOINT INJECTION Laterality: Bilateral Time out: Prior to injection, a time out was called to confirm the administration of appropriate medicine, patient name, procedure and confirm to the best of our ability and knowledge the presence of any necessary risks and benefits. Patient verbalized understanding. Ultrasound required due to high risk for complications without ultrasound guidance (risk for neurovascular damage) and location of joint being too deep to accurately inject without ultrasound guidance Ultrasound utilized to guide injection. During the procedure, the needle was visualized in plane and was advanced with continuous ultrasound guidance to the appropriate anatomical landmark as described in the procedure. Sterile technique applied using gloves, chlorhexadine, and alcohol swabs. Ethyl chloride spray for local anesthetic. Glenohumeral joint injected using 2.5 inch, 22 gauge needle. Injected with 1 mL Lidocaine 1% - 1 mLTriamcinolone Acetonide 40 mg/mL >> inject 2 mL. Patient tolerated procedure with no significant bleeding or adverse reaction. Patient instructed to call or return to clinic for fever, warmth, unusual redness at injection sitefor potential infection. Patient also advised regarding post-procedural pain. Ely Cabrales MD Sports Medicine Primary Care Orthopaedics [address] [address] documented in this encounter Nursing Notes * Mihaela Meyers MED ASSIST - 11/30/2023 12:29 PM EDT Patient presents today for bilateral shoulder injection. Previously injected 08/17/23, which only lasted 3 weeks. documented in this encounter Plan of Treatment Upcoming Encounters Date Type Department Care Team (Late st Contact Info) Description 12/20/2023 9:45 AM EDT Office Visit Urology, [facility] 132 [facility] [place] [address] Man Gu MD [address] [place] [address] 12/26/2023 11:20 AM EST Office Visit General Internal Medicine [facility] 200 [facility] [place] [address] Jennifer Sarkar MD 200 [facility] [place] [address] 03/16/2024 2:00 PM EST Office Visit Cardiology, [facility] 132 [facility] [place] [address] Job Bravo PALisa 132 [facility] [place] [address] 03/21/2024 10:30 AM EST Office Visit Orthopaedics [facility] 132 [facility] [place] [address] Ely Cabrales MD 132 [facility] [place] [address] 05/14/2024 12:20 PM EDT Office Visit Pulmonary Medicine, [facility] 132 [facility] [place] [address] Bashir Harding MD [address] [place] [address] Scheduled Procedures Name Priority Associated Diagnoses Date/Ti [...] D LEVEL ONCE IN A LIFETIME-USE SMARTSET# [id number] Completed 10/20/2023, 08/17/2023, 12/01/2022, Additional history exists [...] this encounter Medical Devices Implanted Type Area Acid Remover Device Identifier Shelf Expiration Date Model / Serial / Lot Lens Intraoc 23.0 - [id number] - [id number] Implanted:Qty: 1 on 12/21/2016 by Raj Bernard MD at OR [facility] Left: Eye BAUSCH [employer] LOMB 06/20/2021 [id number] / [id number] / Lens Intraoc 22.0 - [id number] - [id number] Implanted:Qty: 1 on 01/06/2017 by Raj Bernard MD at OR [facility] Right: Eye BAUSCH [employer] LOMB 08/20/2021 [id number] / [id number] / [id number] documented as of this encounter Visit Diagnoses Diagnosis 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 Nontraumatic complete tear of left rotator cuff Osteoarthritis of bilateral glenohumeral joints documented in this encounter Advance Directives * [...] Power of Attor bj? No Care Teams Drill Foreman Relationship Specialty Start Date End Date Jennifer Sarkar MD 200 [place] [address] PCP - General Internal Medicine 10/06/20 documented as of this encounter
--- OUTSIDE RECORDS SUMMARY | 2023-12-25 23:43 | External Medical Summary | Summary of Care ---
Author Name Unknown Organization [facility] Address [address] [facility] [place] [address] Phone [phone] Care Team Providers Care Upholstery Parts Sorter Name Role Phone Jennifer Sarkar MD Primary Care Provider [phone] Reason for Visit * Reason Onset Date Comments Test Results 11/15/2023 Encounter Details Date Type Department Care Team (Late st Contact Info) Description 11/15/2023 Telephone Nephrology, [facility] [address] [place] [address] Yumiko Philippe MD 200 [place] [address] Test Results Allergies Active Allergy Reactions Criticality Noted Date Comments Food (See Comments) 03/21/2018 Other reaction(s): WAS TOLD NOT TO TAKE grapefruit Tramadol Other (Please comment) High 10/06/2020 Hallucinations documented as of this encounter (statuses as of 11/15/2023) Medications Medication Sig Dispensed Refills Start Date [...] Active Additional Information Patient taking differently:1,000 mg RzsuN4D PRN, ,may take 3rd dose in between [...] Oral Tablet (Lasix)Indications:Co ronary artery disease involving k[place] coronary artery of [place]aw heart without angina pectoris,Chronic right-sided heart failure [...] as of this encounter (statuses as of 11/15/2023) Active Problems Problem Noted Date Diagnosed Date Hypercalcemia 12/03/2022 Supplemental oxygen dependent 05/06/2022 Nasal septal perforation 05/06/2022 Chronic respiratory failure with hypoxia 022 Granulomatous lung disease 09/18/2021 Chronic rhinitis 06/10/2021 Schatzki's ring of distal esophagus 06/10/2021 Chronic right-sided heart failure 04/08/2020 Coronary artery disease invo lving kaw coronary artery of kaw heart without angina pectoris 11/21/2018 Abnormality of [...] CORONARY STENT TO LAD - bare Me kassiyd 10/16/2008 Severe obstructive sleep apnea 01/15/2008 Overview: [...] as of this encounter (statuses as of 11/15/2023) Resolved Problems Problem Noted Date Diagnosed Date [...] and draped in usual sterile manner. 14 [place] flexible cystoscope inserted into urethra and guided [...] as of this encounter (statuses as of 11/15/2023) Immunizations Name Administration Dates Next Due COVID-19 mRNA, LNP-s, No Pre serve, 2-Dose Series ([employer]) 05/14/2020,04/18/2020 H1N1 2009 Influenza, IM 04/22/2009 PPD [...] AM EDT Office Visit General Internal Medicine [facility] [address] [place] [address] Jenniefr Sarkar MD [address] [place] [address] 11/30/2023 12:30 PM EDT Office Visit Orthopaedics [facility] [address] [address] Ely Cabrales MD [address] [place] [address] 12/20/2023 9:45 AM EDT Office Visit Urology, [facility] 132 [facility] [place] [address] Man Gu MD [address] [place] [address] 12/26/2023 11:20 AM EST Office Visit General Internal Medicine [facility] 200 [facility] [place] [address] Jennifer Sarkar MD 200 [facility] [place] [address] 03/16/2024 2:00 PM EST Office Visit Cardiology, [facility] 132 [facility] [place] [address] Job Bravo PA-C 132 [facility] [place] [address] 05/14/2024 12:20 PM EDT Office Visit Pulmonary Medicine, [facility] 132 [facility] [place] [address] Bashir Harding MD [address] [place] [address] Scheduled Procedures Name Priority Associated Diagnoses Date/Ti [...] D LEVEL ONCE IN A LIFETIME-USE SMARTSET# 79293 Completed 10/20/2023, 08/17/2023, 12/01/2022, Additional history exists [...] this encounter Medical Devices Implanted Type Area Impact Hammer Operator Device Identifier Shelf Expiration Date Model / Serial / Lot Lens Intraoc 23.0 - [id number] - [id number] Implanted:Qty: 1 on 12/21/2016 by Raj Bernard MD at OR [facility] Left: Eye BA[employer]CH [employer] LOMB 06/20/2021 [id number] / [id number] / Lens Intraoc 22.0 - [id number] - [id number] Implanted:Qty: 1 on 01/06/2017 by Raj Bernard MD at OR [facility] Right: Eye BAUSCH [employer] LOMB 08/20/2021 [id number] / [id number] / [id number] documented as of this encounter Advance Directives [...] Power of Attor bj? No Care Teams Upholstery Parts Sorter Relationship Specialty Start Date End Date Jennifer Sarkar MD 200 [place] [address] PCP - General Internal Medicine 10/06/20 documented as of this encounter
--- OUTSIDE RECORDS SUMMARY | 2023-12-25 23:43 | External Medical Summary | Summary of Care ---
Author Name Unknown Organization [facility] Address [address] [facility] [place] [address] Phone [phone] Care Team Providers Care Score Caller Name Role Phone Jennifer Sarkar MD Primary Care Provider [phone] Reason for Visit * Reason Onset Date Comments Appointment 11/14/2023 Encounter Details Date Type Department Care Team (Late st Contact Info) Description 11/14/2023 Telephone General Internal Medicine [facility] 200 [facility] [place] [address] Jennifer Sarkar MD 200 [place] [address] Appointment Allergies Active Allergy Reactions Criticality Noted Date Comments Food (See Comments) 03/21/2018 Other reaction(s): WAS TOLD NOT TO TAKE grapefruit Tramadol Other (Please comment) High 10/06/2020 Hallucinations documented as of this encounter (statuses as of 11/14/2023) Medications Medication Sig Dispensed Refills Start Date [...] Active Additional Information Patient taking differently:1,000 mg RndsD3Y PRN, ,may take 3rd dose in between [...] Oral Tablet (Lasix)Indications:Co ronary artery disease involving [place] coronary artery of [place] heart without angina pectoris,Chronic right-sided heart failure [...] as of this encounter (statuses as of 11/14/2023) Active Problems Problem Noted Date Diagnosed Date Hypercalcemia 12/03/2022 Supplemental oxygen dependent 05/06/2022 Nasal septal perforation 05/06/2022 Chronic respiratory failure with hypoxia 022 Granulomatous lung disease 09/18/2021 Chronic rhinitis 06/10/2021 Schatzki's ring of distal esophagus 06/10/2021 Chronic right-sided heart failure 04/08/2020 Coronary artery disease invo lving [place] coronary artery of [place] heart without angina pectoris 11/21/2018 Abnormality of [...] as of this encounter (statuses as of 11/14/2023) Resolved Problems Problem Noted Date Diagnosed Date [...] and draped in usual sterile manner. 14 [place] flexible cystoscope inserted into urethra and guided [...] as of this encounter (statuses as of 11/14/2023) Immunizations Name Administration Dates Next Due COVID-19 mRNA, LNP-s, No Pre serve, 2-Dose Series ([facility]) 05/14/2020,04/18/2020 H1N1 2009 Influenza, IM 04/22/2009 [...] encounter Miscellaneous Notes * Telephone Encounter - Gala Valentino OSA - 11/14/2023 1:29 PM EDT Spoke to pt and he scheduled * Telephone Encounter - Sujit Nowak CMA - 11/14/2023 1:05 PM EDT Pt needs appt 08/01/2023 pt no show. Needs appointment for provider to continue to fill out home health certifications. Please assist pt in making appt. documented in this encounter Plan of Treatment Upcoming Encounters Date Type Department Care Team (Late st Contact Info) Description 11/29/2023 11:20 AM EDT Office Visit General Internal Medicine [facility] [address] [place] [address] Jennifer Sarkar MD [address] [place] [address] 11/30/2023 12:30 PM EDT Office Visit Orthopaedics [facility] [address] [place] [address] Ely Cabrales MD [address] [place] [address] 12/20/2023 9:45 AM EDT Office Visit Urology, [facility] 132 [facility] [place] [address] Man Gu MD [address] [place] [address] 12/26/2023 11:20 AM EST Office Visit General Internal Medicine [facility] 200 [facility] [place] [address] Jennifer Sarkar MD 200 [facility] [place] [address] 03/16/2024 2:00 PM EST Office Visit Cardiology, [facility] 132 [facility] [place] [address] Job Bravo PALisa 132 [facility] [place] [address] 05/14/2024 12:20 PM EDT Office Visit Pulmonary Medicine, [facility] 132 [facility] [place] [address] Bashir Harding MD [address] [place] [address] Scheduled Procedures Name Priority Associated Diagnoses Date/Ti [...] D LEVEL ONCE IN A LIFETIME-USE SMARTSET# [id number] Completed 10/20/2023, 08/17/2023, 12/01/2022, Additional history exists [...] this encounter Medical Devices Implanted Type Area Shake Feeder Device Identifier Shelf Expiration Date Model / Serial / Lot Lens Intraoc 23.0 - [id number] - [id number] Implanted:Qty: 1 on 12/21/2016 by Raj Bernard MD at OR [facility] Left: Eye BAUSCH [employer] LOMB 06/20/2021 [id number] / [id number] / Lens Intraoc 22.0 - [id number] - [id number] Implanted:Qty: 1 on 01/06/2017 by Raj Bernard MD at OR [facility] Right: Eye BAUSCH [employer] LOMB 08/20/2021 [id number] / [id number] / [id number] documented as of this encounter Advance Directives [...] Power of Attor bj? No Care Teams Score Caller Relationship Specialty Start Date End Date Jennifer Sarkar MD [address] [place] [address] PCP - General Internal Medicine 10/06/20 documented as of this encounter
--- OUTSIDE RECORDS SUMMARY | 2023-12-25 23:43 | External Medical Summary | Summary of Care ---
Author Name Unknown Organization [facility] Address [address] [place] [address] Phone [phone] Care Team Providers Care Slubber Hand Name Role Phone Jennifer Sarkar MD Primary Care Provider [phone] Reason for Visit * Reason Onset Date Comments Home Health 11/09/2023 Encounter Details Date Type Department Care Team (Late st Contact Info) Description 11/09/2023 Telephone General Internal Medicine [facility] 200 [facility] [place] [address] Jennifer Sarkar MD 200 [place] [address] Home Health Allergies Active Allergy Reactions Criticality [...] Active Additional Information Patient taking differently:1,000 mg [id number] PRN, ,may take 3rd dose in between [...] Oral Tablet (Lasix)Indications:Co ronary artery disease involving [place] coronary artery of [place] heart without angina pectoris,Chronic right-sided heart failure [...] failure 04/08/2020 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 14 Citizen [place] flexible cystoscope inserted into urethra and guided [...] mRNA, LNP-s, No Pre serve, 2-Dose Series ([employer]) 05/14/2020,04/18/2020 H1N1 2009 Influenza, IM 04/22/2009 [...] Trivalen t, (IIV3), with Preserv, (Fluzone) 11/12/2014,11/26/2013,10/31/2012,01/20,11/10/2010,12/23/2009,12/18/2008 ,12/14/2007,01/03/2007,12/15/2005,11/22,02/26/2004,12/19/2002, 2 Seasonal Influenza, Trivalen t, Adjuvanted, 65+ YRS, [...] Telephone Encounter - Yuliet Winters LPN - 11/14/2023 1:[address] Sarkar's note * Telephone Encounter - Gala Valentino OSA - 11/11/2023 1:55 PM EDT Lmom for pt to call back and scheduled H/D with PCP * Telephone Encounter - Jennifer Sarkar MD - 11/11/2023 1:17 PM EDT He was adm to [facility] sp dizziness and fall 10/27-11/14. - [facility] f[facility]u appt and bring in all medication bottles again forreview Ua with reflex c/s ordered --- I am out of office today Rev er notes-/dc summary ER labs-nml cbc, BMP ex bicarb 38,k 3.5,nml coags, BNP,Troponin,LFT,Mg 1.9, UA with SG 1.045, no protein,11-20 RBC, resp biofire neg Chest x-mzn-bcpxrlxpuveb with by basilar atelectasis, prior granulomatous disease,S thoracolumbar scoliosis CTA chest-no PE CT c spine-DDD,no afracture CT head-chr sm vs ds,no acute findings--x2-neg EKG normal sinus rhythm. Lyme screen negative. Brain MRI no acute findings -home diuretic was held with Flomax but resumed on discharge discharge with home health and PT/OT Saw urologist in July, finasteride had been added and has follow-up in NovemberEdwige-Eilzabeth., * Telephone Encounter - Yumiko Philippe MD - 11/11/2023 12:45 PM EDT Pls call pt or/and HHN and get update Pt told me the one time I met him that dysuria/frequency is intermittent: what is different here ifanything? Moving forward PCP should be contacted/copied as well for these issues in addition to urology. A few wks ago asked for CMP, UACM repeat >> any updates Dr Mello LOPEZ Pls forward to his urologist as well * Telephone Encounter - Ainsley Castro LPN - 11/09/2023 11:17 AM EDT HH Concerns Jailene paredes RN, Calling from: [facility] Report/Concerns of: UTI Symptoms: uti- burning, urgency, and frequency Vitals: SP O2- 86-87 then went up to 93% - 3 LPM via [place] Weight-163.4- patient reported Narrative: Jailene Paredes states patient complains of burning,frequency , and urgency. Denies Fever or Hematuria. Urine ordered on 10/25 by urology, never completed. Order faxed to [facility] for nursing to collect during home visit on 11/10. Call back Fabian with any advice or orders at [phone] Please fax or call new orders to [facility] Home Health : JOHN * Telephone Encounter - Rosa Keane OSA - 11/09/2023 11:15 AM EDT Reason for patient's call: jailene with [facility] home health asking to talk to a nurse Caller was transferred to [facility] at the nurse line. documented in this encounter Plan of Treatment Upcoming Encounters Date Type Department Care Team (Late st Contact Info) Description 11/29/2023 11:20 AM EDT Office Visit General Internal Medicine [facility] 200 [facility] [place] [address] Jennifer Sarkar MD 200 [facility] [place] [address] 11/30/2023 12:30 PM EDT Office Visit Orthopaedics [facility] [address] [place] [address] Ely Cabrales MD [address] [place] [address] 12/20/2023 9:45 AM EDT Office Visit Urology, [facility] [address] [address] Man Gu MD [address] [place] [address] 12/26/2023 11:20 AM EST Office Visit General Internal Medicine [facility] [address] [place] [address] Jennifer Sarkar MD [address] [place] [address] 03/16/2024 2:00 PM EST Office Visit Cardiology, [facility] [address] [place] [address] Job Bravo PA-C [address] [place] [address] 05/14/2024 12:20 PM EDT Office Visit Pulmonary Medicine, [facility] [address] [place] [address] Bashir Harding MD [address] [place] [address] Scheduled Orders Name Type Priority Associated Diagnoses Orde r Schedule URINALYSIS, REFLEX TO CULTURE (NOT FOR NEUTROPENIC PATIENTS) Lab STAT History of UTI Dysuria BPH with obstruction/lower urinary tract symptoms Expected: 11/11/2023, Expires: 11/10/2024 Scheduled Procedures Name Priority Associated Diagnoses Date/Ti [...] D LEVEL ONCE IN A LIFETIME-USE SMARTSET# [id number] Completed 10/20/2023, 08/17/2023, 12/01/2022, Additional history exists [...] this encounter Medical Devices Implanted Type Area Student Advisor Device Identifier Shelf Expiration Date Model / Serial / Lot Lens Intraoc 23.0 - [id number] - [id number] Implanted:Qty: 1 on 12/21/2016 by Raj Bernard MD at OR [facility] Left: Eye [employer]OM[employer] 06/20/2021 [id number] / [id number] / Lens Intraoc 22.0 - [id number] - [id number] Implanted:Qty: 1 on 01/06/2017 by Raj Bernard MD at OR [facility] Right: Eye [employer]OMB 08/20/2021 [id number] / [id number] / [id number] documented as of this encounter Visit Diagnoses Diagnosis Dysuria- Primary History of UTI Personal history of urinary (tract) infection BPH with obstruction/lower urinary tract symptoms Hypertrophy [...] Power of Attor bj? No Care Teams Slubber Hand Relationship Specialty Start Date End Date Jennifer Sarkar MD 200 [place] [address] PCP - General Internal Medicine 10/06/20 documented as of this encounter
--- OUTSIDE RECORDS SUMMARY | 2023-12-25 23:43 | External Medical Summary | Summary of Care ---
Author Name Unknown Organization [facility] Address [address] [address] Phone [phone] Care Team Providers Care Business Services Clerk Name Role Phone Jennifer Sarkar MD Primary Care Provider [phone] Reason for Visit * Reason Onset Date Comments Home Health 11/09/2023 Encounter Details Date Type Department Care Team (Late st Contact Info) Description 11/09/2023 Telephone General Internal Medicine [facility] [address] [facility] [place] [address] Jennifer Sarkar MD 200 [place] [address] Home Health Allergies Active Allergy Reactions Criticality Noted Date Comments Food (See Comments) 03/21/2018 Other reaction(s): WAS TOLD NOT TO TAKE grapefruit Tramadol Other (Please comment) High 10/06/2020 Hallucinations documented as of this encounter (statuses as of 11/11/2023) Medications Medication Sig Dispensed Refills Start Date [...] Active Additional Information Patient taking differently:1,000 mg WubnH9E PRN, ,may take 3rd dose in between [...] Oral Tablet (Lasix)Indications:Co ronary artery disease involving [place] coronary artery of [place] heart without angina pectoris,Chronic right-sided heart failure [...] as of this encounter (statuses as of 11/11/2023) Active Problems Problem Noted Date Diagnosed Date Hypercalcemia 12/03/2022 Supplemental oxygen dependent 05/06/2022 Nasal septal perforation 05/06/2022 Chronic respiratory failure with hypoxia 022 Granulomatous lung disease 09/18/2021 Chronic rhinitis 06/10/2021 Schatzki's ring of distal esophagus 06/10/2021 Chronic right-sided heart failure 04/08/2020 Coronary artery disease invo lving [place] coronary artery of [place] heart without angina pectoris 11/21/2018 Abnormality of [...] as of this encounter (statuses as of 11/11/2023) Resolved Problems Problem Noted Date Diagnosed Date [...] and draped in usual sterile manner. 14 [place] flexible cystoscope inserted into urethra and guided [...] as of this encounter (statuses as of 11/11/2023) Immunizations Name Administration Dates Next Due COVID-19 mRNA, LNP-s, No Pre serve, 2-Dose Series ([employer]) 05/14/2020,04/18/2020 H1N1 2009 Influenza, IM 04/22/2009 PPD [...] 1:17 PM EDT He was adm to [facility] sp dizziness and fall 10/27-11/14. - [facility] f[facility]u appt and bring in all medication bottles again forreview Ua with reflex c/s ordered --- I am out of office today Rev er notes-/dc summary ER labs-nml cbc, BMP ex bicarb 38,k 3.5,nml coags, BNP,Troponin,LFT,Mg 1.9, UA with SG 1.045, no protein,11-20 RBC, resp biofire neg Chest k-ake-wiuvmqlkrwne with by basilar atelectasis, prior granulomatous disease,S thoracolumbar scoliosis CTA chest-no PE CT c spine-DDD,no afracture CT head-chr sm vs ds,no acute findings--x2-neg EKG normal sinus rhythm. Lyme screen negative. Brain MRI no acute findings -home diuretic was held with Flomax but resumed on discharge discharge with home health and PT/OT Saw urologist in July, finasteride had been added and has follow-up in November-Elizabeth.Dr.Miller * Telephone Encounter - Yumiko Philippe MD [...] - 11/09/2023 11:17 AM EDT HH Concerns Jaileen paredes RN, Calling from: [facility] Report/Concerns of: UTI Symptoms: uti- burning, urgency, and frequency Vitals: SP O2- 86-87 then went up to 93% - 3 LPM via [place] Weight-163.4- patient reported Narrative: Jailene Paredes states patient complains of burning,frequency , and urgency. Denies Fever or Hematuria. Urine ordered on 10/25 by urology, never completed. Order faxed to [facility] for nursing to collect during home visit on 11/10. Call back Fbaian with any advice or orders at [phone] Please fax or call new orders to [facility] Health : JOHN * Telephone Encounter - Rosa Keane OSA - 11/09/2023 11:15 AM EDT Reason for patient's call: jailene with [facility] health asking to talk to a nurse Caller was transferred to [facility] at the nurse line. documented in this encounter Plan of Treatment Upcoming Encounters Date Type Department Care Team (Late st Contact Info) Description 11/30/2023 12:30 PM EDT Office Visit Orthopaedics [facility] [address] [place] [address] Ely Cabrales MD [address] [place] [address] 12/20/2023 9:45 AM EDT Office Visit Urology, [facility] [address] [place] [address] Man Gu MD [address] [place] [address] 12/26/2023 11:20 AM EST Office Visit General Internal Medicine [facility] [address] [facility] [place] [address] Jennifer Sarkar MD [address] [facility] [place] [address] 03/16/2024 2:00 PM EST Office Visit Cardiology, [facility] [address] [place] [address] Job Bravo PA-C 132 [facility] [place] [address] 05/14/2024 12:20 PM EDT Office Visit Pulmonary Medicine, [facility] [address] [place] [address] Bashir Harding MD [address] [place] [address] Scheduled Orders Name Type Priority Associated Diagnoses [...] D LEVEL ONCE IN A LIFETIME-USE SMARTSET# [id number] Completed 10/20/2023, 08/17/2023, 12/01/2022, Additional history exists [...] this encounter Medical Devices Implanted Type Area Sonoscope Operator Device Identifier Shelf Expiration Date Model / Serial / Lot Lens Intraoc 23.0 - [id number] - [id number] Implanted:Qty: 1 on 12/21/2016 by Raj Bernard MD at OR [facility] Left: Eye [employer]OM[employer] 06/20/2021 [id number] / [id number] / Lens Intraoc 22.0 - [id number] - [id number] Implanted:Qty: 1 on 01/06/2017 by Raj Bernard MD at OR [facility] Right: Eye [employer] LOMB 08/20/2021 [id number] / [id number] / [id number] documented as of this encounter Visit Diagnoses [...] Power of Attor bj? No Care Teams Business Services Clerk Relationship Specialty Start Date End Date Jennifer Sarkar MD [address] [place] [address], [place] [address] PCP - General Internal Medicine 10/06/20 documented as of this encounter
--- OUTSIDE RECORDS SUMMARY | 2023-12-25 23:43 | External Medical Summary | Summary of Care ---
Author Name Unknown Organization [facility] Address [address] [facility] [place] [address] Phone [phone] Care Team Providers Care Extension Forester Name Role Phone Jennifer Sarkar MD Primary Care Provider [phone] Reason for Visit * Reason Onset Date Comments Advice 08/19/2023 Encounter Details Date Type Department Care Team (Late st Contact Info) Description 08/19/2023 Telephone General Internal Medicine [facility] 200 [place] [address] Jennifer Sarkar MD 200 [place] [address] Advice Allergies Active Allergy Reactions Criticality Noted Date Comments Food (See Comments) 03/21/2018 Other reaction(s): WAS TOLD NOT TO TAKE grapefruit Tramadol Other (Please comment) High 10/06/2020 Hallucinations documented as of this encounter (statuses as of 11/18/2023) Medications Medication Sig Dispensed Refills Start Date [...] Active Additional Information Patient taking differently:1,000 mg BvotF6F PRN, ,may take 3rd dose in between --12/21/2021, Reported on 12/21/2022 Saline Nasal Gel (Nasogel)Indicatio ns:Chronic respiratory failure [...] the morning. 90 Tablet 3 08/03/2023 Active documented as of this encounter (statuses as of 11/18/2023) Active Problems Problem Noted Date Diagnosed Date Hypercalcemia 12/03/2022 Supplemental oxygen dependent 05/06/2022 Nasal septal perforation 05/06/2022 Chronic respiratory failure with hypoxia 022 Granulomatous lung disease 09/18/2021 Chronic rhinitis 06/10/2021 Schatzki's ring of distal esophagus 06/10/2021 Chronic right-sided heart failure 04/08/2020 Coronary artery disease invo lving [place] coronary artery of [place] heart without angina pectoris 11/21/2018 Abnormality of [...] hypoxemia 06/08/2007 Overview: 3 LPM at bedtime [facility] [employer] SPINAL STENOSIS-LUMBAR 07/29/2005 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 Essential tremor documented as of this encounter (statuses as of 11/18/2023) Resolved Problems Problem Noted Date Diagnosed Date [...] and draped in usual sterile manner. 14 [place] flexible cystoscope inserted into urethra and guided [...] as of this encounter (statuses as of 11/18/2023) Immunizations Name Administration Dates Next Due COVID-19 mRNA, LNP-s, No Pre serve, 2-Dose Series (snapp.me) 05/14/2020,04/18/2020 H1N1 2009 Influenza, IM 04/22/2009 PPD [...] AM EDT Office Visit General Internal Medicine [facility] 200 [facility] [place] [address] Jennifer Sarkar MD 200 [facility] [place] [address] 11/30/2023 12:30 PM EDT Office Visit Orthopaedics [facility] [address] [place] [address] Ely Cabrales MD [address] [place] [address] 12/20/2023 9:45 AM EDT Office Visit Urology, [facility] [address] [place] [address] Man Gu MD [address] [place] [address] 12/26/2023 11:20 AM EST Office Visit General Internal Medicine [facility] 200 [facility] [place] [address] Jennifer Sarkar MD 200 [facility] [place] [address] 03/16/2024 2:00 PM EST Office Visit Cardiology, [facility] [address] [place] [address] Job Bravo PA-C [address] [place] [address] 05/14/2024 12:20 PM EDT Office Visit Pulmonary Medicine, [facility] [address] [place] [address] Bashir Harding MD [address] [place] [address] Scheduled Procedures Name Priority Associated Diagnoses Date/Ti [...] D LEVEL ONCE IN A LIFETIME-USE SMARTSET# [id number] Completed 10/20/2023, 08/17/2023, 12/01/2022, Additional history exists [...] this encounter Medical Devices Implanted Type Area Diet Consultant Device Identifier Shelf Expiration Date Model / Serial / Lot Lens Intraoc 23.0 - [id number] - [id number] Implanted:Qty: 1 on 12/21/2016 by Raj Bernard MD at OR [facility] Left: Eye [employer]OMB 06/20/2021 [id number] / [id number] / Lens Intraoc 22.0 - [id number] - [id number] Implanted:Qty: 1 on 01/06/2017 by Raj Bernard MD at OR [facility] Right: Eye [employer]CH [employer]OMB 08/20/2021 [id number] / [id number] / [id number] documented as of this encounter Advance Directives [...] Power of Attor bj? No Care Teams Extension Forester Relationship Specialty Start Date End Date Jennifer Sarkar MD 200 [place] [address] PCP - General Internal Medicine 10/06/20 documented as of this encounter
--- OUTSIDE RECORDS SUMMARY | 2023-12-25 23:43 | External Medical Summary | Summary of Care ---
Author Name Unknown Organization [facility] Address [address] [facility] [place] [address] Phone [phone] Care Team Providers Care Drone Software Development Engineer Name Role Phone Jennifer Sarkar MD Primary Care Provider [phone] Reason for Visit * Reason Onset Date Comments Pre Cert/Prior Auth 08/12/2023 Prolia - citlaly ting for oop cost to pt Encounter Details Date Type Department Care Team (Late st Contact Info) Description 08/12/2023 Telephone Rheumatology [facility], [place] [address] [place] [address] Meryl Santiago CRNP [address] [place] [address] Pre Cert/Prior Auth (Prolia - waiting for ... Allergies Active Allergy Reactions Criticality Noted Date [...] Active Additional Information Patient taking differently:1,000 mg LabtO2R PRN, ,may take 3rd dose in between [...] Tablet 1 02/12/20 23 Active oxygen 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:Canary Breeder jonathan respiratory failure with hypoxia (HCC),Chronic right-sided [...] morning. 90 Tablet 3 08/03/19 24 Active Ipratropium-Albuter ol 20-100 MCG/ACT Inhalation [...] 90 Tablet 3 09/02/19 23 024 Discontinued Furosemide 20 MG Oral Tablet (Lasix)Indications: Chronic right-sided heart failure (HCC),Coronary artery disease involving [place] coronary artery of [place] heart without angina pectoris,Bilateral leg edema TAKE BY MOUTH 2 TABLETS IN THE MORNING. TAKE ADDITIONAL ONE FOR THREE DAYS AND DIRECTED. 270 Tablet 3 10/09/19 23 024 Discontinued(R efill) Benzonatate 100 MG Oral CapsuleIndications: Aspiration into [...] failure 04/08/2020 Coronary artery disease invo lving [place] coronary artery of [place] heart without angina pectoris 11/21/2018 Abnormality of [...] and draped in usual sterile manner. 14 Frisian flexible cystoscope inserted into urethra and guided [...] mRNA, LNP-s, No Pre serve, 2-Dose Series (kompany) 05/14/2020,04/18/2020 H1N1 2009 Influenza, IM 04/22/2009 PPD [...] encounter Miscellaneous Notes * Telephone Encounter - Niya Nunez LPN - 08/22/2023 3:32 PM EDT Drug name: PROLIA [facility] code(s): J0897 AUTH #: approved spoke to santa at [facility] Prolia approved st dt 08/22/2023 end dt 08/21/2024 auth - [id number] 2 injections approved for buy and bill Valid auth start date: 08/22/2023 Valid auth end date: 08/21/2024 Location: [facility] # of Visits: 2 Billing Units Approved: 2 Diagnosis Code(s): M81.0 Medical Necessity: MEETS Clinic Stock: Clinic stock/ buy& bill Is this insurance In Network or Out of Network?: In Network Insurance Verified: [employer] MEDICARE PPO Reference #: NA MAC review needed? Yes Referral sent to: CLINIC/PRC * Telephone Encounter - Marielle Nunez LPN - 08/18/2023 2:38 PM EDT Already scheduled for 09/13 * Telephone Encounter - Meryl Santiago CRNP - 08/18/2023 1:24 PM EDT Labs resulted. Vitamin-D is slightly decreased at 27, spoke with the patient and states he will start taking his vitamin-D supplements. I am okay to start Prolia. We will get vitamin-D rechecked in 3-4 months. Order placed. Please note in his chart to have vitamin-D rechecked before his 2nd Prolia. * Telephone Encounter - Meryl Santiago CRNP - 08/12/2023 7:49 AM EDT Rheumatology Education, Pre-Certification, and/or Pharmacist Co-Management Request Medication Education: yes Pre-Certification: [facility]: Pre-cert for Prednisone, DMARDs & IV/IM/SC Osteoporosis Meds ([facility] rheumatology pharmacist pool p [phone]) Pharmacist Co-Management ([facility] ONLY; [place] select "no"): No Pharmacist Co-Management Medication/Disease State Information: Diagnosis: Osteoporosis without current pathological fracture [M81.0] Medication:Prolia 60 mg SQ once every 6 months Failed or Intolerant to or Contraindicated: Reclast Comments Labs pending Rheumatology Pharmacist Disease Modifying Antirheumatic Drug (DMARD) Co- Management (If Applicable) Minimum frequency patient should be seen in person for medication management: As appropriate per clinical condition and patient status By my signature, I understand that my patient will have medication [facility]) per established policies, procedures, and protocols. I also certify that this referral may serve as an initiation of service for the management of drug therapy in the above noted patient. [facility] providers will be responsible for scheduling patient visits, obtaining appropriate laboratory studies, and adjusting medication management therapy per patient's need, in addition to those roles spelled out in the clinic policy, procedures, and drug management protocols. I understand that the service provided by the [facility] is voluntary and have informed patient that they can refuse the service at their discretion. I am aware that the [facility] will provide me with a copy of the patient encounter via my [employer] In-Basket. I authorize the [facility] to carryout these activities on my behalf. I consider this program to be a necessary part of the patient's medical care. ALFONSO Burkett documented in this encounter Plan of Treatment Upcoming Encounters Date Type Department Care Team (Late st Contact Info) Description 11/30/2023 12:30 PM EDT Office Visit Orthopaedics [facility] [address] [place] [address] Ely Cabrales MD [address] [place] [address] 12/20/2023 9:45 AM EDT Office Visit Urology, [facility] [address] [facility] [place] [address] Man Gu MD [address] [place] [address] 12/26/2023 11:20 AM EST Office Visit General Internal Medicine [facility] 200 [facility] [place] [address] Jennifer Sarkar MD 200 [facility] [place] [address] 03/16/2024 2:00 PM EST Office Visit Cardiology, [facility] 132 [facility] [place] [address] Job Bravo PALisa 132 [facility] [place] [address] 05/14/2024 12:20 PM EDT Office Visit Pulmonary Medicine, [facility] [address] [place] [address] Bashir Harding MD [address] [place] [address] Scheduled Procedures Name Priority Associated Diagnoses Date/Ti [...] D LEVEL ONCE IN A LIFETIME-USE SMARTSET# [id number] Completed 10/20/2023, 08/17/2023, 12/01/2022, Additional history exists [...] this encounter Medical Devices Implanted Type Area Locomotive Firer/Fireman Device Identifier Shelf Expiration Date Model / Serial / Lot Lens Intraoc 23.0 - [id number] - [id number] Implanted:Qty: 1 on 12/21/2016 by Raj Bernard MD at OR [facility] Left: Eye BAUSCH & LOMB 06/20/2021 [id number] / [id number] / Lens Intraoc 22.0 - [id number] - [id number] Implanted:Qty: 1 on 01/06/2017 by Raj Bernard MD at OR [facility] Right: Eye BAUSCH & LOMB 08/20/2021 [id number] / [id number] / [id number] documented as of this encounter Advance Directives [...] Power of Attor bj? No Care Teams Drone Software Development Engineer Relationship Specialty Start Date End Date Jennifer Sarkar MD 200 [place] [address] PCP - General Internal Medicine 10/06/20 documented as of this encounter
--- OUTSIDE RECORDS SUMMARY | 2023-12-25 23:43 | External Medical Summary | Summary of Care ---
Author Name Unknown Organization [facility] Address [address] [facility] [place] [address] Phone [phone] Care Team Providers Care Sociology Research Assistant Name Role Phone Jennifer Sarkar MD Primary Care Provider [phone] Reason for Visit * Reason Comments Outpatient Testing Encounter Details Date Type Department Care Team (Late st Contact Info) Description 11/11/2023 3:50 PM EDT Laboratory Laboratory, [place] [address] [place] [address] [place], Laboratory [address] [place] [address] Dyslipidemia, goal LDL below 160; Hematuria, microscopic; Calculus of kidney; Uricacidemia Allergies Active Allergy Reactions Criticality Noted Date [...] Active Additional Information Patient taking differently:1,000 mg MwvtC7Z PRN, ,may take 3rd dose in between [...] Oral Tablet (Lasix)Indications:Co ronary artery disease involving [place] coronary artery of cheesh-na heart without angina pectoris,Chronic right-sided heart failure [...] failure 04/08/2020 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 11/21/2018 Abnormality of [...] mRNA, LNP-s, No Pre serve, 2-Dose Series ([place]) 05/14/2020,04/18/2020 H1N1 2009 Influenza, IM 04/22/2009 PPD [...] 11/30/2023 12:30 PM EDT Office Visit Orthopaedics [facility] [address] [place] [address] [address] Ely Cabrales MD [address] [place] [address] 12/20/2023 9:45 AM EDT Office Visit Urology, [facility] [address] [place] [address] Man Gu MD [address] [place] [address] 12/26/2023 11:20 AM EST Office [facility] [address] [place] [address] Jennifer Sarkar MD [address] [place] [address] 03/16/2024 2:00 PM EST Office Visit Cardiology, [facility] [address] [place] [address] Job Bravo PA-C [address] [place] [address] 05/14/2024 12:20 PM EDT Office Visit Pulmonary Medicine, [facility] [address] [place] [address] Bashir Harding MD [address] [place] [address] Pending Results Name Type Priority Associated Diagnoses Date /Time URINALYSIS, REFLEX TO MICROSCOPIC Lab Routine Dyslipidemia, goal LDL below 160 Hematuria, microscopic Calculus of kidney Uricacidemia 11/11/2023 3:45 PM EDT Scheduled Procedures Name Priority Associated [...] D LEVEL ONCE IN A LIFETIME-USE SMARTSET# [id number] Completed 10/20/2023, 08/17/2023, 12/01/2022, Additional history exists [...] this encounter Medical Devices Implanted Type Area Nuclear Engineering Technician Device Identifier Shelf Expiration Date Model / Serial / Lot Lens Intraoc 23.0 - [id number] - [id number] Implanted:Qty: 1 on 12/21/2016 by Raj Bernard MD at OR [facility] Left: Eye BAUSCH & LOMB 06/20/2021 [id number] / [id number] / Lens Intraoc 22.0 - [id number] - [id number] Implanted:Qty: 1 on 01/06/2017 by Raj Bernard MD at OR [facility] Right: Eye BAUSCH & LOMB 08/20/2021 [id number] / [id number] / [id number] documented as of this encounter Visit Diagnoses Diagnosis Dyslipidemia, goal LDL below 160 Other and unspecified hyperlipidemia Hematuria, microscopic Microscopic hematuria Calculus of kidney Uricacidemia Other abnormal blood chemistry documented in this [...] Power of Attor bj? No Care Teams Sociology Research Assistant Relationship Specialty Start Date End Date Jennifer Sarkar MD 200 [facility] [place] [address] PCP - General Internal Medicine 10/06/20 documented as of this encounter
--- OUTSIDE RECORDS SUMMARY | 2023-12-25 23:43 | External Medical Summary | Summary of Care ---
Author Name Unknown Organization [facility] Address [address] [place] [address] Phone [phone] Care Team Providers Care Element Winding Machine Tender Name Role Phone Jennifer Sarkar MD Primary Care Provider [phone] Reason for Visit * Reason Onset Date Comments Home Health 11/09/2023 Encounter Details Date Type Department Care Team (Late st Contact Info) Description 11/09/2023 Telephone General Internal Medicine [facility] 200 [facility] [place] [address] Jennifer Sarkar MD 200 [place] [address] Home Health Allergies Active Allergy Reactions Criticality [...] Active Additional Information Patient taking differently:1,000 mg QrrsK0I PRN, ,may take 3rd dose in between [...] Oral Tablet (Lasix)Indications:Co ronary artery disease involving [place] coronary artery of [place] heart without angina pectoris,Chronic right-sided heart failure [...] failure 04/08/2020 Coronary artery disease invo lving [place] coronary artery of [place] heart without angina pectoris 11/21/2018 Abnormality of [...] mRNA, LNP-s, No Pre serve, 2-Dose Series ([employer]) 05/14/2020,04/18/2020 H1N1 2009 Influenza, IM 04/22/2009 PPD [...] encounter Miscellaneous Notes * Telephone Encounter - Yamile Ramirez OSA - 11/15/2023 2:26 PM EDT Patient is scheduled for 11/29/[address] Sarkar * Telephone Encounter - Yuliet Winters LPN - 11/14/2023 1:[address] Sarkar's note * Telephone Encounter - Gala Valentino OSA - 11/11/2023 1:55 PM EDT Lmom for pt to call back and scheduled H/D with PCP * Telephone Encounter - Jennifer Sarkar MD - 11/11/2023 1:17 PM EDT He was adm to [facility] sp dizziness and fall 10/27-11/14. - [facility] f/u appt and bring in all medication bottles again forreview Ua with reflex c/s ordered --- I am out of office today Rev er notes-/dc summary ER labs-nml cbc, BMP ex bicarb 38,k 3.5,nml coags, BNP,Troponin,LFT,Mg 1.9, UA with SG 1.045, no protein,11-20 RBC, resp biofire neg Chest u-mna-nafyibseedyx with by basilar atelectasis, prior granulomatous disease,S thoracolumbar scoliosis CTA chest-no PE CT c spine-DDD,no afracture CT head-chr sm vs ds,no acute findings--x2-neg EKG normal sinus rhythm. Lyme screen negative. Brain MRI no acute findings -home diuretic was held with Flomax but resumed on discharge discharge with home health and PT/OT Saw urologist in July, finasteride had been added and has follow-up in November-Elizabeth., * Telephone Encounter - Yumiko Philippe MD [...] CMP, UACM repeat >> any updates Dr Melol LOPEZ Pls forward to his urologist as well * Telephone Encounter - Ainsley Castro LPN - 11/09/2023 11:17 AM EDT HH Concerns Jailene paredes RN, Calling from: [facility] Report/Concerns of: UTI Symptoms: uti- burning, urgency, and frequency Vitals: SP O2- 86-87 then went up to 93% - 3 LPM via MT Weight-163.4- patient reported Narrative: Jailene Paredes HH states patient complains of burning,frequency , and urgency. Denies Fever or Hematuria. Urine ordered on 10/25 by urology, never completed. Order faxed to [facility] for nursing to collect during home visit on 11/10. Call back Fabian with any advice or orders at [phone] Please fax or call new orders to [facility] Home Health : JOHN * Telephone Encounter - Rosa Keane OSA - 11/09/2023 11:15 AM EDT Reason for patient's call: jailene with [facility] home health asking to talk to a nurse Caller was transferred to Ainsley at the nurse line. documented in this encounter Plan of Treatment Upcoming Encounters Date Type Department Care Team (Late st Contact Info) Description 11/29/2023 11:20 AM EDT Office Visit General Internal Medicine [place] [address] [place] [address] Jennifer Sarkar MD [address] [place] [address] 11/30/2023 12:30 PM EDT Office Visit Orthopaedics [facility] [address] [place] [address] Ely Cabrales MD [address] [place] [address] 12/20/2023 9:45 AM EDT Office Visit Urology, [facility] [address] [place] [address] Man Gu MD [address] [place] [address] 12/26/2023 11:20 AM EST Office Visit General Internal Medicine [facility] [address] [place] [address] Jennifer Sarkar MD [address] [place] [address] 03/16/2024 2:00 PM EST Office Visit Cardiology, [facility] [address] [place] [address] Job Bravo PA-C [address] [place], [place] [address] 05/14/2024 12:20 PM EDT Office Visit Pulmonary Medicine, [facility] 132 [facility] [place] [address] Bashir Harding MD [address] [place] [address] Scheduled Orders Name Type Priority Associated Diagnoses [...] D LEVEL ONCE IN A LIFETIME-USE SMARTSET# [id number] Completed 10/20/2023, 08/17/2023, 12/01/2022, Additional history exists [...] this encounter Medical Devices Implanted Type Area Aircraft Metalsmith Device Identifier Shelf Expiration Date Model / Serial / Lot Lens Intraoc 23.0 - [id number] - [id number] Implanted:Qty: 1 on 12/21/2016 by Raj Bernard MD at OR [facility] Left: Eye BAUSCH & LOMB 06/20/2021 [id number] / [id number] / Lens Intraoc 22.0 - [id number] - [id number] Implanted:Qty: 1 on 01/06/2017 by Raj Bernard MD at OR [facility] Right: Eye BAUSCH & LOMB 08/20/2021 [id number] / [id number] / [id number] documented as of this encounter Visit Diagnoses [...] Power of Attor bj? No Care Teams Element Winding Machine Tender Relationship Specialty Start Date End Date Jennifer Sarkar MD 200 [place] [address] PCP - General Internal Medicine 10/06/20 documented as of this encounter
--- OUTSIDE RECORDS SUMMARY | 2023-12-25 23:43 | External Medical Summary | Summary of Care ---
Author Name Unknown Organization [facility] Address [address] [place] [address] Phone [phone] Care Team Providers Care Carpenter Assistant Name Role Phone Jennifer Sarkar MD Primary Care Provider [phone] Reason for Visit * Reason Comments Follow Up Bilateral shoulder Encounter Details Date Type Department Care Team (Late st Contact Info) Description 11/30/2023 12:30 PM EDT Office Visit Orthopaedics [facility] [address] [place] [address] Ely Cabrales MD [address] [place] [address] Nontraumatic complete tear of right rotator cuff*; [...] Active Additional Information Patient taking differently:1,000 mg SqtlT2Y PRN, ,may take 3rd dose in between [...] Oral Tablet (Lasix)Indications:Co ronary artery disease involving [place] coronary artery of [...] rotator cuff 2 mL IJ ONCE 11/30/2023 11/30/2023 Ended lidocaine 1% 1 mL - triamcinolone acetonide 40 mg/mL 1 mL inj 2 mLIndications:Nontraumatic complete tear of right rotator cuff,Nontraumatic complete tear of left rotator cuff 2 mL IJ ONCE 11/30/2023 11/30/2023 Ended documented as of this encounter (statuses [...] and draped in usual sterile manner. 14 Samoan flexible cystoscope inserted into urethra and guided into bladder under direct vision. Findings :normal bladder mucosa, normal anatomical position of ureteral orifices.Ureteral stent removed completely Calculus of ureter 04/01/2005 8 ADVANCE DIRECTIVE INFORMATION 07/27/2004 07/21/2016 Overview: Patient does not have an advanced directive. Patient given information booklet. Bacterial pneumonia 07/31/2002 09/17/19 16 Depression with anxiety 11/18/2000 1002/2017 HYPERTENSION NOS 01/13/2009 Overview: Modified per [facility] [...] for follow up of bilateral shoulder to [facility]. Fabian Starks is here unaccompanied [...] have him follow up in 3-4 months buthe will contact me sooner if needed If he does not have greater than one-month of relief with this injection recommend suprascapular nerve block and possible referral to pain management for suprascapular nerve ablation The above assessment and plan were discussed at length. All questions were answered, and the patient expressed understanding. Ely Cabrales MD Primary Care Sports Medicine [facility] Orthopaedics [address] [address] PROCEDURE NOTE: SHOULDER GLENOHUMERAL JOINT INJECTION Laterality: [...] Cabrales MD Sports Medicine Primary Care Orthopaedics [address] [address] documented in this encounter Nursing Notes * Mihaela Meyers MED ASSIST - 11/30/2023 12:29 PM EDT Patient presents today for bilateral shoulder injection. Previously injected 08/17/23, which only lasted 3 weeks. documented in this encounter Plan of Treatment Upcoming Encounters Date Type Department Care Team (Late st Contact Info) Description 12/20/2023 9:45 AM EDT Office Visit Urology, [facility] [address] [address] Man Gu MD [address] [place] [address] 12/26/2023 11:20 AM EST Office Visit General Internal Medicine [facility] 200 [facility] [place] [address] Jennifer Sarkar MD 200 [facility] [place] [address] 03/16/2024 2:00 PM EST Office Visit Cardiology, [facility] [address] [address] Job Bravo PALisa [address] [place] [address] 03/21/2024 10:30 AM EST Office Visit Orthopaedics [facility] [address] [place] [address] Ely Cabrales MD [address] [place] [address] 05/14/2024 12:20 PM EDT Office Visit Pulmonary Medicine, [facility] [address] [place] [address] Bashir Harding MD [address] [place] [address] [id number] Scheduled Procedures Name Priority Associated Diagnoses Date/Ti [...] D LEVEL ONCE IN A LIFETIME-USE SMARTSET# [id number] Completed 10/20/2023, 08/17/2023, 12/01/2022, Additional history exists [...] this encounter Medical Devices Implanted Type Area [place] Worker Device Identifier Shelf Expiration Date Model / Serial / Lot Lens Intraoc 23.0 - [id number] - [id number] Implanted:Qty: 1 on 12/21/2016 by Raj Bernard MD at OR [facility] Left: Eye BAUSCH & LOMB 06/20/2021 [id number] / [id number] / Lens Intraoc .0 - [id number] - [id number] Implanted:Qty: 1 on 01/06/2017 by Raj Bernard MD at [facility] Right: Eye BAUSCH & LOMB 08/20/2021 [id number] / [id number] / [id number] documented as of this encounter Visit Diagnoses Diagnosis 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 Nontraumatic complete tear of left rotator cuff Osteoarthritis of bilateral glenohumeral joints documented in this encounter Administered Medications Inactive Administered Medications - up to 3 most recent administrations Medication Order MAR Action Action Date Dose Rate Site lidocaine 1% 1 mL - triamcinolone acetonide 40 mg/mL 1 mL inj 2 mL 2 mL, Injection, ONCE, On Tue11/30/23 at 1345, For 1 dose, Lidocaine 1% 1mL Triamcinolone Acetonide 40 mg/mL 1 mL (Final concentration = 20 mg/mL) REFRIGERATE and SHAKE WELL Given 11/30/2023 1:33 PM EDT 2 mL Shoulder Left lidocaine 1% 1 mL - triamcinolone acetonide 40 mg/mL 1 mL inj 2 mL 2 mL, Injection, ONCE, On Tue11/30/23 at 1345, For 1 dose, Lidocaine 1% 1mL Triamcinolone Acetonide 40 mg/mL 1 mL (Final concentration = 20 mg/mL) REFRIGERATE and SHAKE WELL Given 11/30/2023 1:33 PM EDT 2 mL Shoulder Right documented in this encounter Advance Directives * [...] Power of Attor bj? No Care Teams Carpenter Assistant Relationship Specialty Start Date End Date Jennifer Sarkar MD 200 [facility] [place] [address] PCP - General Internal Medicine 10/06/20 documented as of this encounter
--- OUTSIDE RECORDS SUMMARY | 2023-12-25 23:43 | External Medical Summary | Summary of Care ---
Author Name Unknown Organization [facility] Address [address] [facility] [place] [address] Phone [phone] Care Team Providers Care Powerplant Operator Name Role Phone Jennifer Sarkar MD Primary Care Provider [phone] Reason for Visit * Reason Onset Date Comments Test Results 11/16/2023 Encounter Created in Error 11/16/2023 Encounter Details Date Type Department Care Team (Late st Contact Info) Description 11/16/2023 Telephone Nephrology, [place] [address] [place] [address] Yumiko Philippe MD [address] [place] [address] Test Results; Encounter Created in Error Allergies Active Allergy Reactions Criticality Noted Date [...] Active Additional Information Patient taking differently:1,000 mg [id number] PRN, ,may take 3rd dose in between [...] Oral Tablet (Lasix)Indications:Co ronary artery disease involving anvik coronary artery of anvik heart without angina pectoris,Chronic right-sided heart failure [...] before bedtime. 12 g 2 4 08/05/19 Active documented as of this encounter (statuses as of 11/16/2023) Active Problems Problem Noted Date Diagnosed Date Hypercalcemia 12/03/2022 Supplemental oxygen dependent 05/06/2022 Nasal septal perforation 05/06/2022 Chronic respiratory failure with hypoxia 022 Granulomatous lung disease 09/18/2021 Chronic rhinitis 06/10/2021 Schatzki's ring of distal esophagus 06/10/2021 Chronic right-sided heart failure 04/08/2020 Coronary artery disease invo lving anvik coronary artery of anvik heart without angina pectoris 11/21/2018 Abnormality of [...] and draped in usual sterile manner. 14 Nigerien flexible cystoscope inserted into urethra and guided [...] mRNA, LNP-s, No Pre serve, 2-Dose Series (Domosite) 05/14/2020,04/18/2020 H1N1 2009 Influenza, IM 04/22/2009 PPD [...] Telephone Encounter - Yuliet Winters LPN - 11/16/2023 8:56 AM EDT Duplicate encounter * Telephone Encounter - Yuliet Winters LPN - 11/16/2023 8:55 AM EDT ----- Message from Yumiko Philippe MD sent at 11/15/2023 4:01 PM EDT ----- No blood protein or infection in urine; continue same documented in this encounter Plan of Treatment Upcoming Encounters Date Type Department Care Team (Late st Contact Info) Description 11/29/2023 11:20 AM EDT Office Visit General Internal Medicine [facility] [address] [place] [address] Jennifer Sarkar MD [address] [place] [address] 11/30/2023 12:30 PM EDT Office Visit Orthopaedics [facility] [address] [address] Ely Cabrales MD [address] [address] 12/20/2023 9:45 AM EDT Office Visit Urology, [facility] [address] [facility] [place] [address] Man Gu MD [address] [place] [id number] 12/26/2023 11:20 AM EST Office Visit General Internal Medicine [facility] [address] [place] [address] Jennifer Sarkar MD [address] [place] [address] 03/16/2024 2:00 PM EST Office Visit Cardiology, [facility] [address] [facility] [place] [address] Job Bravo, PA-C [address] [facility] [place] [address] 05/14/2024 12:20 PM EDT Office Visit Pulmonary Medicine, [facility] [address] [facility] [place] [address] Bashir Harding MD [address] [place] [address] Scheduled Procedures Name Priority Associated Diagnoses Date/Ti [...] D LEVEL ONCE IN A LIFETIME-USE SMARTSET# 14617 Completed 10/20/2023, 08/17/2023, 12/01/2022, Additional history exists [...] this encounter Medical Devices Implanted Type Area Continuous Improvement Manager Device Identifier Shelf Expiration Date Model / Serial / Lot Lens Intraoc 23.0 - [id number] - [id number] Implanted:Qty: 1 on 12/21/2016 by Rja Bernard MD at OR [facility] Left: Eye [employer] 06/20/2021 [id number] / [id number] / Lens Intraoc 22.0 - [id number] - [id number] Implanted:Qty: 1 on 01/06/2017 by Raj Bernard MD at OR [facility] Right: Eye [employer] 08/20/2021 [id number] / [id number] / [id number] documented as of this encounter Advance Directives [...] Power of Attor bj? No Care Teams Powerplant Operator Relationship Specialty Start Date End Date Jennifer Sarkar MD [address] [facility] [place] [address] PCP - General Internal Medicine 10/06/20 documented as of this encounter
--- OUTSIDE RECORDS SUMMARY | 2023-12-25 23:44 | External Medical Summary | Summary of Care ---
Author Name Unknown Organization [facility] Address [address] [place] [address] Phone [phone] Care Team Providers Care Canoe Inspector Name Role Phone Jennifer Sarkar MD Primary Care Provider Reason for Visit * Reason Onset Date Comments Hospital Follow-Up Patient state s it has been a while since being in the hospl. Patient states Hospital Follow-Up 10/25/2023 Medication Administration 10/25/2023 Flu an d/or Pneumo Inj Encounter Details Date Type Department Care Team (Latest Contact Info) Description 10/25/2023 10:20 AM EDT Office Visit General Internal Medicine [facility] [place] [address] [facility] [address] Jennifer Sarkar MD [address] [place] [address] Hospital discharge follow-up*; Ambulatory dysfunction; Spinal stenosis of lumbar region without neurogenic claudication; Chronic pain of both shoulders; History of UTI; Bilateral nephrolithiasis; BPH with obstruction/lower urinary tract symptoms; History of Clostridium difficile infection; Acquired hypothyroidism; Dyslipidemia, goal LDL below 100; S/P primary angioplasty with coronary stent; Severe obstructive sleep apnea; Nocturnal hypoxemia; Chronic respiratory failure with hypoxia (HCC); Chronic right-sided heart failure (HCC); Essential tremor; Senile osteoporosis; Schatzki's ring of distal esophagus; History of esophageal dilatation; Noncompliance with medications; At risk for aspiration pneumonia; Cerebral microvascular disease; Knee abrasion, left, subsequent encounter; Granulomatous lung disease (HCC); Need for prophylactic vaccination and inoculation against influenza Allergies Active Allergy Reactions Criticality Noted Date Comments Food (See Comments) 03/21/2018 Other reaction(s): WAS TOLD NOT TO TAKE grapefruit Tramadol Other (Please comment) High 10/06/2020 Hallucinations documented as of this encounter (statuses as of 11/06/2023) Medications Medication Sig Dispensed Refills Start Date [...] Active Additional Information Patient taking differently:1,000 mg [id number] PRN, ,may take 3rd dose in between [...] 18 g 3 Active Saline Nasal Gel (Nasogel)Indications :Chronic [...] 90 Tablet 1 3 Active oxygen 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:Chron ic respiratory [...] Oral Tablet (Lasix)Indications:C oronary artery disease involving [place] coronary artery of [place] heart without angina pectoris,Chronic right-sided heart failure [...] FROM 06/23/2023. 90 Capsule 3 4 Active Benzonatate 100 MG Oral CapsuleIndications:A spiration into airway, subsequent encounter Take 1 Capsule by mouth 3 times a day as needed for Cough. 30 Capsule 1 3 10/25/19 24 Discontin ued(End of Procedure ) oxyCODONE HCl 5 MG Oral Tablet (Oxy IR) Take 1 Tablet by mouth every 8 hours as needed for Pain, Severe. 3 10/25/19 24 Discontin ued(End of Procedure ) Magnesium Hydroxide 400 MG/5ML Oral Suspension (Mom) Take 30 mL by mouth. 4 10/25/19 24 Discontin ued(Patie nt preferenc e/discont inuation) documented as of this encounter (statuses as of 11/06/2023) Active Problems Problem Noted Date Diagnosed Date [...] as of this encounter (statuses as of 11/06/2023) Resolved Problems Problem Noted Date Diagnosed Date [...] and draped in usual sterile manner. 14 Israeli flexible cystoscope inserted into urethra and guided [...] as of this encounter (statuses as of 11/06/2023) Immunizations Name Administration Dates Next Due COVID-19 mRNA, LNP-s, No Pre serve, 2-Dose Series (Nubisio) 05/14/2020,04/18/2020 H1N1 2009 Influenza, IM 04/22/2009 PPD [...] Sign Reading Time Taken Comments Blood Pressure 128/78 10/25/2023 10:53 AM EDT Pulse 52 10/25/2023 10:53 AM EDT Temperature 36.1 C (97 F) 10/25/2023 10: 53 AM EDT Respiratory Rate 24 10/25/2023 10:5 3 AM EDT Oxygen Saturation 85% 10/25/2023 10: 53 AM EDT Inhaled Oxygen Concentration - - Weight 75.3 kg (165 lb 14.4 oz) 024 10:53 AM EDT Height 165.1 cm (5' 5") 10/25/2023 10:5 3 AM EDT Body Mass Index 27.61 10/25/2023 10:53 AM EDT documented in this encounter Progress Notes * Beverley Kidd LPN - 10/25/2023 11:48 AM EDT PRE - ADMINISTRATION DOCUMENTATION Are you experiencing any cold symptoms or fever? No Have you had Guillain-Bayfield Syndrome (an illness that causes paralysis) within the last 6 weeks? No Have you had the flu shot in the past? YES Have you ever had a reaction to the flu shot? No Beverley Kidd LPN, 10/25/2023 11:48 AM Immunization Administration Documentation Time Out Procedure Performed: Yes Patient Identified (Ask Name/Date of ): Yes Does the patient have a fever greater than 101 degrees today? No Patient allergic to latex? No VFC Stock: No Immunization(s) verified: Yes, Immunization Name: Flu, VIS Sheet(s) given: Yes Verified Side and Site: Yes Verified Shot(s) with Parent(s)/Patient: Yes * Jennifer Sarkar MD - 10/25/2023 10:52 AM EDT SUBJECTIVE: Fabian Starks is a 82 year old male. Chief Complaint Patient presents with Hospital Follow-Up Patient states it has been a while since being in the hospl. Patient states HPI: Patient presents today for delayed hosp f/u appt Wt Readings from Last 6 Encounters: 10/25/23 75.3 kg (165 lb 14.4 oz) 10/20/23 74.4 kg (164 lb) 09/08/23 73.5 kg (162 lb) 08/11/23 73 kg (161 lb) 06/22/23 74.8 kg (164 lb 12.8 oz) 03/23/23 71.6 kg (157 lb 14.4 oz) BP Readings from Last 6 Encounters: 10/25/23 128/78 10/20/23 115/66 09/08/23 130/82 06/22/23 114/80 03/23/23 112/70 12/21/22 112/62 History of CAD H/o AMI SP BM [...] 2019 --had wish to follow-up and had yeanzzavfxu52/4/2022 which he missed-will refer back 07/14 Admitted 10/14/2022- 11/13/2022 with a final diagnosis of acute on chronic respiratory failure, pulmonary edema, COPD exacerbation, possible MRSA pneumonia versus aspiration pneumonia, probable C diff colitis. -sent to short-term rehab at [facility] and discharged from there on 11/26/2022 with home health through [facility]. Was treated with IV vancomycin and cefepime [...] and function. hosp f/u 12/21/22 -Admitted to [facility] 12/08- with diagnosis of ambulatory dysfunction, [...] started on Augmentin. Speech therapy consulted-video swallow zhuqp-ouna-ex-moderate oropharyngeal dysphagia with suspected esophageal dysfunction, aspiration [...] breath, levothyroxine 112mcg-we dec 12/03/22, lab in [place], meclizine p.r.n., Protonix 20 mg, duloxetine 30 mg, O2 2l with exertion. IV Reclast yearly;--LD 10/14/22 -next rheumatology follow-up 04/12/2023 --dexa needs ann-last in 2019, had order from [facility] 08/12 but not ann yet - seen yesterday for cough, got RF Tessalon, respiratory pathogen panel positive for rhino virus. -daughter accompanies him today again. He has not been using the Combivent, has a cough seems productive of sputum which he is unable to expectorate. No fever or chills. No leg edema. Denies diarrhea. [facility] nurse came in yesterday, to start PT, [...] endocrinology eval of hypercalcemia 03/23/23--was admitted to [facility] 01/03/23 to 01/09/2023 and discharged to rehab [facility] 01/22/2023, seen in the ED 03/12/2023 Accompanied by his neighbor today. Daughter is in the process of finding permanent placement at assisted living facility Has nursing through [facility] home health. Reviewed discharge instructions from care home, discharged on oxygen 3 L was to [...] for p.r.n. use at discharge from the care home, is asking for refill, given his history of falls try to avoid narcotics. Home health has been feeling his medication boxes he wants them to continue to come in for few moreweeks 03/23/23-Normal CMP except calcium high at 10.5 stable lipids TSH. -confirm he is not taking multivitamin or calcium supplement. -check ionized calcium, vitamin-D, PTH on 04/07 at [facility] -submit 24 hour urine for uro [...] shortness of breath. Compliant with oxygen therapy. ----- 11/14-patient was admitted the hospital 07/03/2023 discharged 07/13/2023 to send a crest, unsure when he was discharged from there as discharge summary not available. -discharge diagnosis-ambulatory dysfunction, severe thoracolumbar scoliosis, lumbar stenosis. He was taken to the ED status post fall but patient states he slowly descended to the ground, did not hit his head and had been there for approximately 6 hours until he decided to call EMS CT head no acute findings, see stable C-spine chest x-ray Labs had shown elevated CK 539 BNP 77 TSH 15 free T4 0.79 UA with RBC no bacteria, EKG normal sinusrhythm Evaluated by PT and OT recommended discharge to fdc facility. Chest x-ray showed small right pleural effusion/atelectasis. CT abdomen pelvis shows thickening of the left collecting system 15 mm stone and diffuse bladder wall thickening Urology was consulted, urine culture showed Proteus resistant to ceftriaxone sensitiveto cefepime blood cultures were negative, completed 7 days of cefepime. Then had diarrhea stool positive for C diff gene but not toxin given p.o. vancomycin. Elevated CK resolved with IV fluids. History of dysphagia with Schatzki's ring, he requested speech referral was advised aspiration precautions soft diet. Cymbalta had been increased from 30-60 mg in June, they recommended continuing 30 mg in case it was contributing to confusion or falls but he has continued to take 60 mg Medications reviewed, unsure if he is taking Combivent or finasteride to call us and let us know. Also had 30 and 60 mg Cymbalta bottles, advised to stay on just the 60 mg use 2 x 30 mg until done without bottle Cardiology appointment in April scx-had f/u 09/08/23-no chg done. 10/14 labs reviewed. Has not been ann pulm appt [facility] apt 08/11/23 --Consider Prolia 60mg subcutaneous injection every 6 months. Recommend taking vitamin-D 3 1000 units daily --OOP 321 dollars and was going to apply FA Had urology f/u - 08/03/23 , had CT 07/11/23 [facility] adm--ER notes and CT scan done July 11, 2023 are reviewed demonstrating a 15 mm left stone -BPH, stone ds--added finasreride , f/u 4 mths 12/20/23 with shira menendez 10/20/23--ordered labs, 24 urine test Discussed about covid booster, RSV vaccine. TSH Results: Lab Results Component Value Date/Time TSH - [facility] 1.70 03/23/2023 01:05 PM TSH - [facility] 0.28 12/01/2022 12:22 PM TSH - [facility] 1.65 08/11/2022 10:27 AM TSH - [facility] 1.32 01/02/2020 12:23 PM TSH - [facility] 1.54 11/21/2018 02:46 PM TSH - [facility] 9.66 (H) 07/19/2018 09:48 AM Component Latest Ref Rng 12/01/2022 Uric Acid 3.4 - 7.0 mg/dL 6.4 25-Hydroxy Vitamin D >19 ng/mL 35 PTH 15 - 65 pg/mL 37 Results for orders placed or performed in visit on 10/20/23 25-HYDROXY VITAMIN D Result Value Ref Range 25-Hydroxy Vitamin D 32 >19 ng/mL BASIC METABOLIC PANEL Result Value Ref Range BUN 12 6 - 20 mg/dL Creatinine 1.0 0.6 - 1.2 mg/dL Estimated Glomerular Filtration Rate 73 >=60 mL/min Sodium 141 135 - 146 mmol/L Potassium 3.8 3.5 - 5.1 mmol/L Chloride 96 (L) 98 - 107 mmol/L CO2 33 (H) 22 - 32 mmol/L Anion Gap 12 7 - 15 mmol/L Glucose 116 70 - 120 mg/dL Calcium 9.7 8.4 - 10.2 mg/dL *Note: Due to a large number of results and/or encounters for the requested time period, some results have not been displayed. A complete set of results can be found in Results Review. Patient Active Problem List Diagnosis Acquired hypothyroidism [...] Supplemental oxygen dependent Nasal septal perforation Hypercalcemia Current Outpatient Medications Medication Sig Dispense Refill [...] 1 Tablet before bedtime. 270 Tablet 3 Furosemide 40 MG Oral Tablet [...] OR CHEW--INC FROM 06/23/2023. 90 Capsule 3 Ipratropium-Albuterol 20-100 MCG/ACT Inhalation Aerosol Solution (Combivent Respimat) Inhale 1 Puffby mouth in the morning and 1 Puff at noon and 1 Puff in the evening and 1 Puff before bedtime. 4 g2 Finasteride 5 MG Oral Tablet (Proscar) Take 1 Tablet by mouth in the morning. 90 Tablet 3 No current facility-administered medications for this visit. Review of patient's allergies indicates: Allergen Reactions Tramadol Other (Please comment) Hallucinations Food (See Comments) Other reaction(s): WAS TOLD NOT TO TAKE grapefruit Flu vac today Immunization History Administered Date(s) Administered COVID-19 mRNA, LNP-s, No Preserve, 2-Dose Series (Nubisio) 04/18/2020, 05/14/2020 H1N1 2009 Influenza, IM 04/22/2009 [...] No Preserve, IM 04/22/2009, 12/25/2015 Seasonal Influenza, Trivalent, (IIV3), with Preserv, (Fluzone) 01/17/2002, 12/19/2002, 02/26/2004, 12/14/2004, 12/15/2005, 01/03/2007, 12/14/2007, 12/18/2008, 12/23/2009, 11/10/2010, 01/21/2012, 10/31/2012, 11/26/2013, 11/12/2014 Seasonal Influenza, Trivalent, Adjuvanted, 65+ YRS, PF, (Fluad) 11/21/2018 TD, Preservative Free 12/14/2007 TDAP (age 10 and older)(Boostrix) 07/19/2018 Zoster Vaccine Recombinant (Shingrix) 09/17/2019, 01/28/2020 OBJECTIVE: BP 128/78 (BP Site: Left Arm, BP Position: Sitting, BP Cuff Size: Regular) | Pulse 52 | Temp 36.1 C (97 F) (Tympanic) | Resp 24 | Ht 1.651 m (5' 5") | Wt 75.3 kg (165 lb 14.4 oz) | SpO2 85% | BMI27.61 kg/m | BSA 1.86 m PHYSICAL EXAM: General: alert, healthy, no [...] slow, motor no focal deficits, Neg cerebellar signs.-firk-jy-vwwa, dysdiadochokinesis, Ext--+tremors Back--mild left convex lumbar scoliosis , dec rom shoulders. Gait with cane-slow Abdomen: Soft, non-tender,small umb hernia, normal bowel sounds, no masses or organomegaly, no bruits Extremities:1+pitting ,no clubbing, no cyanosis with O2. ASSESSMENT/PLAN: Hospital discharge follow-up (Primary) - DISCH MED RECON CUR MED LIS Ambulatory dysfunction - DISCH MED RECON CUR MED LIS Spinal stenosis of lumbar region without neurogenic claudication - DISCH MED RECON CUR MED LIS Chronic pain of both shoulders History of UTI Bilateral nephrolithiasis BPH with obstruction/lower urinary tract symptoms History of Clostridium difficile infection Acquired hypothyroidism - TSH WITH FREE T4 IF INDICATED; Future; Expected date: 10/25/2023 Dyslipidemia, goal LDL below 100 S/P primary angioplasty with coronary stent Severe obstructive sleep apnea Nocturnal hypoxemia Chronic respiratory failure with hypoxia (HCC) Chronic right-sided heart failure (HCC) Essential tremor Senile osteoporosis Schatzki's ring of distal esophagus History of esophageal dilatation Noncompliance with medications - TSH WITH FREE T4 IF INDICATED; Future; Expected date: 10/25/2023 At risk for aspiration pneumonia Cerebral microvascular disease Knee abrasion, left, subsequent encounter Granulomatous lung disease (HCC) ct current meds, continue using walker, fall aspiration precautions. Nan Follow up with pulmonology Avoid narcotics.;Tylenol 500 mg 2 tab q8 hrs prn For pain., ct duloxetine 60mg Call us to make sure he is taking finasteride and Combivent TSH today. Other labs before next appointment in December, advised to bring in all pill bottles to appointment Appts as below 40 min total time spent with patient, time spent reviewing subspecialty notes, diagnostic studies done, follow-up orders/medication refills,over 1/2 time spent in counseling, coordinating care. Follow Up: Return if symptoms worsen or fail to improve, for Return with Physician, Labs Today, Fasting Labs 2-5 Days Before Next Visit. | For: Return with Physician, Labs Today, Fasting Labs 2-5 Days Before Next Visit | Check-out note: TSH only today Ann lab appt end of NOV Ann pulm appt --referred in june (This note was completed using the dictation [...] instructions and agrees with plan of care. Jnenifer Sarkar MD 06/22/2023 Urine culture negative, microscopy was not sent, to repeat UA. documented in this encounter Nursing Notes * Beverley Kidd LPN - 10/25/2023 10:53 AM EDT Chief Complaint Patient presents with Hospital Follow-Up Patient states it has been a while since being in the hospl. Patient states documented in this encounter Plan of Treatment Upcoming Encounters Date Type Department Care Team (Late st Contact Info) Description 11/08/2023 12:20 PM EDT Office Visit Pulmonary Medicine, [facility] [address] [facility] [place] [address] Bashir Harding MD [address] [place] [place] [address] 11/30/2023 12:30 PM EDT Office Visit Orthopaedics [facility] [address] [facility] [address] [place] [address] Ely Cabrales MD [address] [facility] [place] [address] 12/20/2023 9:45 AM EDT Office Visit Urology, [facility] [address] [facility] [place] [address] Man Gu MD [address] [place] [id number] 12/26/2023 11:20 AM EST Office Visit General Internal Medicine [facility] [address] [facility] [place] [address] Jennifer [facility] MD [address] [facility] [address] 03/16/2024 2:00 PM EST Office Visit Cardiology, [facility] [address] [facility] [place] [address] Job Bravo PA-C [address] [facility] [place] [address] Scheduled Procedures Name Priority Associated Diagnoses Date/Ti [...] D LEVEL ONCE IN A LIFETIME-USE SMARTSET# [id number] Completed 10/20/2023, 08/17/2023, 12/01/2022, Additional history exists [...] this encounter Medical Devices Implanted Type Area Sales Executive Insurance Device Identifier Shelf Expiration Date Model / Serial / Lot Lens Intraoc 23.0 - [id number] - [id number] Implanted:Qty: 1 on 12/21/2016 by Raj Bernard MD at OR [facility] Left: Eye [employer] 06/20/2021 [id number] / [id number] / Lens Intraoc 22.0 - [id number] - [id number] Implanted:Qty: 1 on 01/06/2017 by Raj Bernard MD at OR [facility] Right: Eye [employer] 08/20/2021 [id number] / [id number] / [id number] documented as of this encounter Results * TSH WITH FREE T4 IF INDICATED (10/25/2023 12:04 PM EDT) TSH 1.38 0.27 - 4.20 uIU/mL 10/26/2023 12:37 AM EDT [facility] Blood Venous blood specimen / Unknown Venipuncture / Unknown 10/25/2023 12:04 PM EDT 10/25/2023 12:04 PM EDT Jennifer Sarkar MD LAB BLOOD ORDERABLES [facility] [address] [place] [address] documented in this encounter Visit Diagnoses Diagnosis Hospital discharge follow-up- Primary Other follow-up examination Ambulatory dysfunction Spinal stenosis of lumbar region without neurogenic claudication Spinal stenosis, lumbar region, without neurogenic claudication Chronic pain of both shoulders Pain in joint, shoulder region History of UTI Personal history of urinary (tract) infection Bilateral nephrolithiasis BPH with obstruction/lower urinary tract symptoms Hypertrophy of prostate with urinary obstruction and other lower urinary tract symptoms (LUTS) History of Clostridium difficile infection Personal history of other infectious and parasitic disease Acquired hypothyroidism Unspecified hypothyroidism Dyslipidemia, goal LDL below 100 Other and unspecified hyperlipidemia S/P primary angioplasty with coronary stent Postsurgical percutaneous transluminal coronary angioplasty status Severe obstructive sleep apnea Obstructive sleep apnea (adult) (pediatric) Nocturnal hypoxemia Hypoxemia Chronic respiratory failure with hypoxia (HCC) Chronic respiratory failure Chronic right-sided heart failure (HCC) Congestive heart failure, unspecified Essential tremor Essential and other specified forms of tremor Senile osteoporosis Schatzki's ring of distal esophagus History of esophageal dilatation Noncompliance with medications Personal history of noncompliance with medical treatment, presenting hazards to health At risk for aspiration pneumonia Cerebral microvascular disease Cerebrovascular disease, unspecified Knee abrasion, left, subsequent encounter Granulomatous lung disease (HCC) Other diseases of lung, not elsewhere classified Need for prophylactic vaccination and inoculation against influenza documented in this encounter Advance Directives * [...] Power of Attor bj? No Care Teams Canoe Inspector Relationship Specialty Start Date End Date Jennifer Sarkar MD [address] [place] [address] PCP - General Internal Medicine 10/06/20 documented as of this encounter
--- OUTSIDE RECORDS SUMMARY | 2023-12-25 23:44 | External Medical Summary | Summary of Care ---
Author Name Unknown Organization [facility] Address [address] [facility] [place] [address] Phone [phone] Care Team Providers Care Seam Press Operator Name Role Phone Jennifer Sarkar MD Primary Care Provider [phone] Reason for Visit * Evaluate & Treat - Unlimited Visits (Within 10 days (routine)) - Closed Specialty Diagnoses / Procedures Referred By Contac t Referred To Contact Pulmonary Diseases / Pulmonary Diagnoses Nocturnal hypoxemia Severe obstructive sleep apnea Restrictive lung disease Chronic right-sided heart failure (HCC) At high risk for aspiration Granulomatous lung disease (HCC) Jennifer Sarkar MD [address] [place] [address] Referral ID Status Reason Start Date Expiration Date V isits Requested Visits Authorized [id number] Closed Specialty Services Required 03/23/[phone] Encounter Details Date Type Department Care Team (Late st Contact Info) Description 11/08/2023 12:20 PM EDT Office Visit Pulmonary Medicine, Health system [address] [address] Bashir Harding MD [address] [place] [phone] SOB (shortness of breath)*; Granulomatous lung disease (HCC); Chronic respiratory failure with hypoxia (HCC) Allergies Active Allergy Reactions Criticality Noted Date Comments Food (See Comments) 03/21/2018 Other reaction(s): WAS TOLD NOT TO TAKE grapefruit Tramadol Other (Please comment) High 10/06/2020 Hallucinations documented as of this encounter (statuses as of 11/08/2023) Medications Medication Sig Dispensed Refills Start Date [...] Active Additional Information Patient taking differently:1,000 mg RtohM2D PRN, ,may take 3rd dose in between [...] Oral Tablet (Lasix)Indications:C oronary artery disease involving [place] coronary artery of [place] heart without angina pectoris,Chronic right-sided heart failure [...] 12 g 2 4 08/05/19 25 Active Ipratropium-Albutero l 20-100 MCG/ACT Inhalation Aerosol Solution (Combivent Respimat)Indications :Granulomatous lung disease (HCC),Chronic respiratory failure with hypoxia (HCC) Inhale 1 Puff by mouth in the morning and 1 Puff at noon and 1 Puff in the evening and 1 Puff before bedtime. 4 g 2 3 11/08/19 24 Discontin ued(Refil l) Albuterol Sulfate HFA 108 (90 Base) MCG/ACT Inhalation Aerosol Solution Inhale 2 Puffs by mouth every 6 hours as needed for Wheezing. 18 g 3 11/08/19 24 Discontin ued(Refil l) documented as of this encounter (statuses as of 11/08/2023) Active Problems Problem Noted Date Diagnosed Date Hypercalcemia 12/03/2022 Supplemental oxygen dependent 05/06/2022 Nasal septal perforation 05/06/2022 Chronic respiratory failure with hypoxia 022 Granulomatous lung disease 09/18/2021 Chronic rhinitis 06/10/2021 Schatzki's ring of distal esophagus 06/10/2021 Chronic right-sided heart failure 04/08/2020 Coronary artery disease invo lving [place] coronary artery of [place] heart without angina pectoris 11/21/2018 Abnormality [...] hypoxemia 06/08/2007 Overview: 3 LPM at bedtime [facility] [employer] [facility] SPINAL STENOSIS-LUMBAR 07/29/2005 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 Essential tremor documented as of this encounter (statuses as of 11/08/2023) Resolved Problems Problem Noted Date Diagnosed Date [...] and draped in usual sterile manner. 14 Nepali flexible cystoscope inserted into urethra and guided [...] as of this encounter (statuses as of 11/08/2023) Immunizations Name Administration Dates Next Due COVID-19 mRNA, LNP-s, No Pre serve, 2-Dose Series (Kensho) 05/14/2020,04/18/2020 H1N1 2009 Influenza, IM 04/22/2009 PPD [...] Sign Reading Time Taken Comments Blood Pressure 142/80 11/08/2023 12:38 PM EDT Pulse 66 11/08/2023 12:38 PM EDT Temperature 36.3 C (97.3 F) 11/08/2023 1 2:38 PM EDT Respiratory Rate 22 11/08/2023 12:3 8 PM EDT Oxygen Saturation 93% 11/08/2023 12: 39 PM EDT O2 3LPM, amb Inhaled Oxygen Concentration - - Weight 74.7 kg (164 lb 12 oz) 12:38 PM EDT Height 165.1 cm (5' 5") 11/08/2023 12:3 8 PM EDT Body Mass Index 27.42 11/08/2023 12:38 PM EDT documented in this encounter Progress Notes * Bashir Harding MD - 11/08/2023 12:56 PM EDT Images from the original note were not included. 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 Current bronchodilator regimen: Combivent, rescue albuterol Physical examination: Resting tremors Alert, awake, no distress Class 3 throat No JVD Adequate air entry, scattered coarse wheezing, scoliosis noted S1, S2, no murmur Soft, nontender abdomen Nonlateralizing Neuro examination Assessment: Retired [employer] worker Restrictive lung disease with scoliosis/hypoxic respiratory failure Hypertension CAD Hyperlipidemia History of granulomatous lung disease Request [facility] CXR and CT Chest record Maintain Aspiration Precautions Maintain Fall precautions C/w Albuterol and combivent, current oxygen regimen CXR PA and lateral view was ordered F/u 6 months DATA review: Pulmonary Stress Test: Performed on 2021: PT SPO2 ON ROOM AIR WAS 86%. Placed on 2 liters, Exercise oximetry performed on 2 liters x 6 minutes. Pt ambulated with cane 1080 feet/ 329 meters. No rest periods were required. Lowest SPO2 on 2 liters was 91%. Pulmonary Function Test Results: Performed 2021: BMI 29. Flow loops restrictive. Spirometry is restrictive. There is no significant bronchodilator response. Lung volumes with mild restriction and air trapping vs extra thoracic weakness. DLCO uncorrected for hemoglobin is moderately reduced. Overall mild restrictive lung disease. Recommend trending PFTs and getting bugle pressures in 3-6 months. No prior PFT compare.This interpretation has been electronically signed: Augustus Constantino 11/17/2021 03:10:37 PM Performed on 2016: spirometry is restrictive. There is no significant bronchodilator response. Lung volumes with moderate restriction. DLCO uncorrected for hemoglobin is moderately reduced. No prior PFT to compare. Chest CT, [facility] 11/2021, report only: Compromised imaging due to respiratory motion artifact. No definite pulmonary emboli are identified. Apparent filling defects within side mental left upper lobe pulmonary artery are likely artifactual. No pericardial effusion. No thoracic aortic dissection is noted. Moderate coronary artery calcification. Heart size within normal limits. No thoracic lymphadenopathy. Thoracic lumbar spine scoliosis. No consolidation. Calcified granuloma in the right upper lobe is noted. Subpleural opacities reflecting atelectasis. No suspicious lung nodules. Calcified granulomas within the spleen. Echocardiogram: Performed on 2018: The wall thickness is normal in segments with normal wall motion. There is a small sized anteroseptal wall motion abnormality with akinesis of the apical anteroseptal and apical anterior segments. The qualitative LV ejection fraction is 55-59% (normal). Mild aortic valve sclerosis is present. Aortic stenosis is absent. The right ventricular cavity size is qualitatively normal. Image resolution does not allow dimension measurements. There is mild diffuse right ventricular hypokinesis as demonstrated with the administration of sonic contrast. Bashir Harding MD Subjective CC: No chief complaint on file. HPI: Nursing Notes: Irvin Bettina Chaz, DECAL CUTTER 11/08/23 1242 Addendum Pt is here for pulmonary f/u. MMRC Dyspnea Scale = 4 (I am too breathless to leave the house or I am breathless when dressing) Interm History/Respiratory Symptoms Cough: occasional, yellow phlegm Hemoptysis: no Sinus Symptoms: no Hospitalizations: no ED Trips: no Triggers: exertion, humidity Nocturnal: no problems CPAP/BiPAP/O2: O2 3LPM at rest and night, 4 LPM with exertion DME Supplier: [facility] Flu Vaccine: 10/25/2023 Pneumovax: 2008 Prevnar: 2015 COVID 19: x 2 Objective Filed Vitals: 11/08/23 1238 11/08/23 1239 BP: 142/80 Pulse: 66 Resp: 22 Temp: 36.3 C (97.3 F) TempSrc: Tympanic SpO2: 96% 93% Weight: 74.7 kg (164 lb 12 oz) Height: 1.651 m (5' 5") Exam: Const: No signs of acute distress present. Head/Face: Normal on inspection. Eyes: Conjunctivae clear. Pupils equal round and reactive to light. ENMT: Oropharynx: No erythema, exudate or masses. Posterior pharynx is normal. Neck: Supple and symmetric. Resp: Respiratory examination as outlined above CV: Rate is regular. Rhythm is regular. No heart murmur appreciated. Extremities: No edema of the lower limbs bilaterally. Skin: Skin is warm and dry. Neuro: Coordination normal. No involuntary movement. Psych: Patient's attitude is cooperative. Mood is normal. Affect is normal. Tests reviewed with the patient: DEXA SCAN/BONE MINERAL AXIAL Result Date: 08/31/2023 S: Fracture risk is based on current National Osteoporosis Foundation (www.nof.org) Clinicians Guide and [place] Association of Clinical Endocrinology (AACE) Guidelines (www.aace.com) and the application of current WHO FRAX tool (https://www.angi.ac.uk/FRAX/) as well as the 2017 [place] College of Rheumatology Glucocorticoid Induced Osteoporosis (GIOP) Guidelines (rheumatology.org/Practice-Quality/Clinical-Support/Noygwucw-Hmnvdato-Vtjsq lines) using Bone mineral density derived T-scoresand clinical risk factors obtained from the patient questionnaire. 1. The fracture risk is HIGH (remains HIGH) 2. The quality of the examination is GOOD. 3. No previous study for comparison. DEXA machine was recently upgraded so comparison study can not be made The low Z-score reflects a low bone mineral density compared to age, and gender-matched controls. SUGGESTIONS: Information concerning the evaluation and treatment of osteoporosis can be found at the National Osteoporosis Foundation website (www.nof.org) and [place] Association of Clinical Endocrinology (AACE-www.aace.com). Osteoporosis prevention and treatment begins by modifying risk factors (such as smoking cessation and avoiding alcohol excess) and by participating in weight-bearing activities and exercise. Issues related to fall prevention and home safety should be addressed. Current NOF guidelines suggest 1200 to 1500 mg of calcium from diet and or supplemental sources. It is generally felt best to get calcium from ones diet. Calcium carbonate and calcium citrate are common calcium thomas pplement choices in most local pharmacies. If the patient is taking a proton pump inhibitor, then calcium citrate should be the preferred supplement, if that is necessary. NOF guidelines for vitamin D are 800 to 1000 units of vitamin D3 daily. However, this may best be guided by measurement of 25-OH vitamin-D level, aiming for a level between 30 to 50 units (ng/ml). Additional information can be found at the FRAX website (https://www.angi.ac.uk/FRAX/), and the [place] College of Rheumatology website (https://www.rheumatology.org/Practice-Quality/Clinical-Support/Clinical-Pr actice-Guidelines). 1. The optimal duration of treatment for a patient with osteoporosis is unclear. There is evidence that ongoing treatment of a high risk patient for at least 5 years has clinical benefits to reduce fracture risk. The ongoing benefits and risks of treatment after 5 years are continually debated. It is suggested that the clinical circumstances and patient's desires be taken into consideration to determine ongoing treatment. Ongoing treatment for a patient who is at significant risk for future fracture remains reasonable. This would include patients with T-scores at the femoral neck that remain below -2.5 and patients who have suffered an osteoporotic vertebral or hip fracture. 2. Giventhe present level of Bone Mineral Density and past treatment and considering the current NOF and AACE guidelines, as well as ACR GIOP 2017 Guidelines for treatment, one might consider discontinuationof Reclast/Zoledronic Acid with a repeat study in 2 years. MARK CORONA M.D. GRAY Certified Clinical General Road Foreman Department of Rheumatology [facility] Available Radiologic data was reviewed by me in PACS. The images were shown to the patient and findings were discussed with the patient. HOME MEDICATIONS: Rosuvastatin Calcium 5 MG Oral Tablet (Crestor) DULoxetine HCl 60 MG Oral Capsule Delayed Release Particles (Cymbalta) Montelukast Sodium 10 MG Oral Tablet (Singulair) Citalopram Hydrobromide 20 MG Oral Tablet (CeleXA) Levothyroxine Sodium 112 MCG Oral Tablet (Levoxyl) Pantoprazole Sodium 20 MG Oral Tablet Delayed Release (Protonix) Tamsulosin HCl 0.4 MG Oral Capsule (Flomax) Furosemide 40 MG Oral Tablet (Lasix) Finasteride 5 MG Oral Tablet (Proscar) Propranolol HCl 20 MG Oral Tablet (Inderal) oxygen IN GAS Clopidogrel Bisulfate 75 MG Oral Tablet (pLAVix) Meclizine HCl 12.5 MG Oral Tablet (Antivert) Saline Nasal Gel (Nasogel) Albuterol Sulfate HFA 108 (90 Base) MCG/ACT Inhalation Aerosol Solution Ipratropium-Albuterol 20-100 MCG/ACT Inhalation Aerosol Solution (Combivent Respimat) Acetaminophen 500 MG Oral Tablet (Tylenol) Zoledronic Acid 5 MG/100ML Intravenous Solution NITROGLYCERIN 0.4 MG SL SUBL ROS: No reported history of Hemoptysis, Hematemesis, Melena No reported history of Dysuria, Hematuria, Flank Pain No reported history of chronic headache, seizures No reported history of Fall or trauma . No reported history of recent change in weight or appetite. Past Medical History: Diagnosis Date Acquired hypothyroidism ANGIOPLASTY WITH CORONARY STENT TO LAD - bare Metal 10/16/2008 Calculus of ureter 04/01/2005 Chronic respiratory failure with hypoxia (HCC) 11/14/2021 Chronic right-sided heart failure (HCC) 04/08/2020 Coronary artery disease involving [place] coronary artery of [place] heart without angina pectoris 11/21/2018 Dyslipidemia, goal [...] 06/08/2007 3 LPM at bedtime [facility] OBSTRUCTIVE SLEEP APNEA - refuses CPAP 01/15/2008 uses oxygen at night Osteoporosis Schatzki's ring Sleep apnea, obstructive SPINAL STENOSIS-LUMBAR 07/29/2005 Past Surgical History: Procedure Laterality Date ABDOMEN (KUB) 1 VIEW 03/30/2005 CATHETERIZE LEFT HEART THRU SKIN 10/09/2008 LEFT HEART CATH, PERCUTANEOUS performed by ANSHU FOFANA at [facility] COLONOSCOPY W/ LESION REMOVAL, SNARE 02/01/2007 repeat in 5-10 yrs COLONOSCOPY, DIAGNOSTIC (RECTUM) 06/03/2017 adenomatous polyp, repeat 5 yrs/[facility] CYSTOSCOPY 03/30/2005 stent removal EGD, FLEXIBLE, DIAGNOSTIC 11/24/2012 UPPER GI ENDOSCOPY DIAGNOSTIC performed by Nakia Benton DO at [facility] EGD, FLEXIBLE, DIAGNOSTIC 07/15/2015 Schatzki ring, sm HH/[facility] EGD, FLEXIBLE, DIAGNOSTIC 03/21/2018 erosive gastropathy, [facility] EGD, FLEXIBLE, DIAGNOSTIC 08/21/2021 hiatal hernia / [facility] FRAGMENT KIDNEY STONE BY SHOCK WAVE 03/26/2005 ESWL (Extracorporeal Shock Wave Lithotripsy) INFORMATION bilateral hernia repair REMOVAL OF TONSILS, UNDER AGE 13 REMOVE CATARACT, INSERT LENS PROSTH Left 12/21/2016 left EXTRACAPSULAR CATARACT REMOVAL WITH INTRAOCULAR LENS performed by Raj Bernard MD at [facility] REMOVE CATARACT, INSERT LENS PROSTH Right 01/06/2017 right EXTRACAPSULAR CATARACT REMOVAL WITH INTRAOCULAR LENS performed by Raj Bernard MD at [facility] Social History Socioeconomic History Marital status: Number of children: 2 Occupational History Occupation: [employer] Employer: [employer]KS 0101 Comment: 30 yrs Tobacco Use Smoking status: Former Types: Pipe, Cigars Quit date: 2 Years since quittin.7 Smokeless tobacco: Never Tobacco [...] Food in the Last Year: Never true Social Connections Family History Problem Relation Name Age of Onset Diabetes Mother Type II Cancer Aunt (Unspecified) maternal Arthritis None Cancer Other nephew 26 lung cancer Review of patient's allergies indicates: Allergen Reactions Tramadol Other (Please comment) Hallucinations Food (See Comments) Other reaction(s): WAS TOLD NOT TO TAKE grapefruit documented in this encounter Nursing Notes * Bettina Bryan LPN - 11/08/2023 12:33 PM EDT Pt is here for pulmonary f/u. MMRC Dyspnea Scale = 4 (I am too breathless to leave the house or I am breathless when dressing) Interm History/Respiratory Symptoms Cough: occasional, yellow phlegm Hemoptysis: no Sinus Symptoms: no Hospitalizations: no ED Trips: no Triggers: exertion, humidity Nocturnal: no problems CPAP/BiPAP/O2: O2 3LPM at rest and night, 4 LPM with exertion DME Supplier: [facility] Flu Vaccine: 10/25/2023 Pneumovax: 2008 Prevnar: 2014 COVID 19: x 2 documented in this encounter Plan of Treatment Upcoming Encounters Date Type Department Care Team (Late st Contact Info) Description 11/30/2023 12:30 PM EDT Office Visit Orthopaedics [facility] [address] [address] Ely Cabrales MD [address] [address] 12/20/2023 9:45 AM EDT Office Visit Urology, Health system [address] [address] Man Gu MD [address] [phone] 12/26/2023 11:20 AM EST Office Visit General Internal Medicine [facility] [address] [place] [address] Jennifer Sarkar MD [address] [place] [address] 03/16/2024 2:00 PM EST Office Visit Cardiology, Health system [address] [facility] [place] [address] Job Bravo PA-C [address] [place] [address] 05/14/2024 12:20 PM EDT Office Visit Pulmonary Medicine, Health system [address] [facility] [place] [address] Bashir Harding MD [address] [place] [address] Pending Results Name Type Priority Associated Diagnoses Date /Time XR CHEST 2 VIEWS Medical Imaging Routine Granulomatous lung disease (HCC) Chronic respiratory failure with hypoxia (HCC) 11/08/2023 1:42 PM EDT Scheduled Procedures Name Priority Associated [...] D LEVEL ONCE IN A LIFETIME-USE SMARTSET# [id number] Completed 10/20/2023, 08/17/2023, 12/01/2022, Additional history exists [...] this encounter Medical Devices Implanted Type Area Route Manager Device Identifier Shelf Expiration Date Model / Serial / Lot Lens Intraoc 23.0 - [id number] - [id number] Implanted:Qty: 1 on 12/21/2016 by Raj Bernard MD at OR [facility] Left: Eye [employer] 06/20/2021 [id number] / [id number] / Lens Intraoc 22.0 - [id number] - [id number] Implanted:Qty: 1 on 01/06/2017 by Raj Bernard MD at OR [facility] Right: Eye [employer] 08/20/2021 [id number] / [id number] / [id number] documented as of this encounter Visit Diagnoses Diagnosis SOB (shortness of breath)- Primary Shortness of breath Granulomatous lung disease (HCC) Other diseases of lung, not elsewhere classified Chronic respiratory failure with hypoxia (HCC) Chronic [...] Power of Attor bj? No Care Teams Seam Press Operator Relationship Specialty Start Date End Date Jennifer Sarkar MD [address] [place] [phone] PCP - General Internal Medicine 10/06/20 documented as of this encounter
--- OUTSIDE RECORDS SUMMARY | 2023-12-25 23:44 | External Medical Summary | Summary of Care ---
Author Name Unknown Organization [facility] Address [address] [place] [address] Phone [phone] Care Team Providers Care Quality Assurance Inspector Name Role Phone Jennifer Sarkar MD Primary Care Provider [phone] Reason for Visit * Reason Onset Date Comments Hospital Follow-Up 11/01/2023 [facility] d/c 10/30 Encounter Details Date Type Department Care Team (Late st Contact Info) Description 11/01/2023 Telephone General Internal Medicine [facility] [place] [address] [place] [address] Shanta Jamison, KORIN Hospital Follow-Up ([facility] d/c 10/30) Allergies Active Allergy Reactions Criticality Noted Date Comments Food (See Comments) 03/21/2018 Other reaction(s): WAS TOLD NOT TO TAKE grapefruit Tramadol Other (Please comment) High 10/06/2020 Hallucinations documented as of this encounter (statuses as of 11/02/2023) Medications Medication Sig Dispensed Refills Start Date [...] Active Additional Information Patient taking differently:1,000 mg [id number] PRN, ,may take 3rd dose in between [...] Oral Tablet (Lasix)Indications:Co ronary artery disease involving [place] coronary artery of [place] heart without angina pectoris,Chronic right-sided heart failure [...] as of this encounter (statuses as of 11/02/2023) Active Problems Problem Noted Date Diagnosed Date Hypercalcemia 12/03/2022 Supplemental oxygen dependent 05/06/2022 Nasal septal perforation 05/06/2022 Chronic respiratory failure with hypoxia 022 Granulomatous lung disease 09/18/2021 Chronic rhinitis 06/10/2021 Schatzki's ring of distal esophagus 06/10/2021 Chronic right-sided heart failure 04/08/2020 Coronary artery disease invo lving [place] coronary artery of [place] heart without angina pectoris 11/21/2018 Abnormality [...] as of this encounter (statuses as of 11/02/2023) Resolved Problems Problem Noted Date Diagnosed Date [...] as of this encounter (statuses as of 11/02/2023) Immunizations Name Administration Dates Next Due COVID-19 mRNA, LNP-s, No Pre serve, 2-Dose Series ([employer]) 05/14/2020,04/18/2020 H1N1 2009 Influenza, IM 04/22/2009 PPD [...] Miscellaneous Notes * Telephone Encounter - Shanta Jamison RN - 11/02/2023 9:34 AM EDT Attempted Phone Call Second Attempt Call Outcome Left Voicemail/Message * Telephone Encounter - Shanta Jamison RN - 11/01/2023 10:32 AM EDT Transitions of Care Note Reason for Referral:Recent Admission Phone visit for follow up: TONA Admitted to: [facility], Date: 10/27 Discharged to: home, Date: 10/30 Diagnosis driving hospitalization: dizziness and pre syncope Attempted Phone Call First Attempt Call Outcome Left Voicemail/Message documented in this encounter Plan of Treatment Upcoming Encounters Date Type Department Care Team (Late st Contact Info) Description 11/03/2023 10:20 AM EDT Office Visit General Internal Medicine [facility] [address] [place], [place] [address] Jennifer Sarkar MD 200 [facility] [place] [address] 11/08/2023 12:20 PM EDT Office Visit Pulmonary Medicine, [facility] 132 [facility] [place] [address] Bashir Harding MD [address] [facility] [place] [address] 11/30/2023 12:30 PM EDT Office Visit [facility]edics [facility] [place] [address] Ely Cabrales MD [address] [place] [address] 12/20/2023 9:45 AM EDT Office Visit Urology, [facility] [place] [address] Man Gu MD [address] [place] [address] 12/26/2023 11:20 AM EST Office Visit General Internal Medicine [facility] 200 [facility] [place] [address] Jennifer Sarkar MD 200 [facility] [place] [address] 03/16/2024 2:00 PM EST Office Visit Cardiology, [facility] [place] [address] Job Bravo PA-C [address] [place] [address] Scheduled Procedures Name Priority Associated Diagnoses Date/Ti [...] D LEVEL ONCE IN A LIFETIME-USE SMARTSET# [id number] Completed 10/20/2023, 08/17/2023, 12/01/2022, Additional history exists [...] Medical Devices Implanted Type Area De Icer Kit Assembler Device Identifier Shelf Expiration Date Model / Serial / Lot Lens Intraoc 23.0 - [id number] - [id number] Implanted:Qty: 1 on 12/21/2016 by Raj Bernard MD at OR [facility] Left: Eye [employer]OMB 06/20/2021 [id number] / [id number] / Lens Intraoc 22.0 - [id number] - [id number] Implanted:Qty: 1 on 01/06/2017 by Raj Bernard MD at OR [facility] Right: Eye [employer]CH [employer] LOMB 08/20/2021 [id number] / [id number] / [id number] documented as of this encounter Advance Directives [...] Power of Attor bj? No Care Teams Quality Assurance Inspector Relationship Specialty Start Date End Date Jennifer Sarkar MD [address] [place] [address] PCP - General Internal Medicine 10/06/20 documented as of this encounter
--- OUTSIDE RECORDS SUMMARY | 2023-12-25 23:44 | External Medical Summary ---
Author Name Unknown Address Unknown Organization K01:[facility] [address] [facility] [address] [place] [address] Laboratory Report Ordering Provider Test Date Status SHIRA MACK 11/11/2023 15:45:36 Final Observation Date Value Abnormality Reference (Units ) Status Color of Urine by Auto 11/11/2023 15:45:36 Light Yellow Colorless, Light Yellow, Yellow, Dark Yellow Final Clarity, Urine 11/11/2023 15:45:36 Clear Clear Final Glucose [Mass/volume] in Urine by Automated test strip 11/11/2023 15:45:36 Negative Negative (mg/dL) Final Bilirubin.total [Presence] in Urine by Automated test strip 11/11/2023 15:45:36 Negative Negative Final Ketones [Mass/volume] in Urine by Automated test strip 11/11/2023 15:45:36 Negative Negative (mg/dL) Final Specific gravity, Urine 11/11/2023 15:45:36 1.012 1.003-1.030 Final Hemoglobin [Presence] in Urine by Automated test strip 11/11/2023 15:45:36 Negative Negative Final pH, Urine 11/11/2023 15:45:36 7.0 5.0-7.5 (Units) Final Protein [Mass/volume] in Urine by Automated test strip 11/11/2023 15:45:36 Negative Negative (mg/dL) Final Urobilinogen [Mass/volume] in Urine by Automated test strip 11/11/2023 15:45:36 Normal Normal (mg/dL) Final Nitrite [Presence] in Urine by Automated test strip 11/11/2023 15:45:36 Negative Negative Final Leukocyte esterase [Presence] in Urine by Automated test strip 11/11/2023 15:45:36 Trace Abnormal Negative Final RBC, Urine 11/11/2023 15:45:36 0-2 0-2 (/HPF) Final WBC, Urine 11/11/2023 15:45:36 10-19 Abnormal 0-2 (/HPF) Final Bacteria [#/area] in Urine sediment by Microscopy high power field 11/11/2023 15:45:36 0-25 0-25 (/HPF) Final Performing Location [facility] [address] Harish Mendez. [facility] [address]
--- OUTSIDE RECORDS SUMMARY | 2023-12-25 23:44 | External Medical Summary | Summary of Care ---
Author Name Unknown Organization [facility] Address [address] [facility] [place] [address] Phone [phone] Care Team Providers Care Heel Dipper Name Role Phone Jennifer Sarkar MD Primary Care Provider [phone] Reason for Visit * Reason Comments eRx-Medication Refill Encounter Details Date Type Department Care Team (Late st Contact Info) Description 11/06/2023 Refill General Internal Medicine [facility] 200 [place] [address] Jennifer Sarkar MD 200 [place] [address] Dyslipidemia, goal LDL below 100; ANGIOPLASTY WITH [...] Active Additional Information Patient taking differently:1,000 mg [id number] PRN, ,may take 3rd dose in between [...] Oral Tablet (Lasix)Indications:C oronary artery disease involving [place] coronary artery of [place] heart without angina pectoris,Chronic right-sided heart failure [...] BY MOUTH EVERY DAY 30 Tablet 5 11/08/19 24 Active Rosuvastatin Calcium 5 MG Oral Tablet (Crestor)Indications :Dyslipidemia, goal LDL below 100,S/P primary angioplasty with coronary stent TAKE 1 TABLET BY MOUTH EVERY DAY 30 Tablet 1 09/15/19 24 024 Discontinued documented as of this encounter (statuses as of 11/08/2023) Active Problems Problem Noted Date Diagnosed Date Hypercalcemia 12/03/2022 Supplemental oxygen dependent 05/06/2022 Nasal septal perforation 05/06/2022 Chronic respiratory failure with hypoxia 022 Granulomatous lung disease 09/18/2021 Chronic rhinitis 06/10/2021 Schatzki's ring of distal esophagus 06/10/2021 Chronic right-sided heart failure 04/08/2020 Coronary artery disease invo lving [place] coronary artery of [place] heart without angina pectoris 11/21/2018 Abnormality of [...] and draped in usual sterile manner. 14 Vietnamese flexible cystoscope inserted into urethra and guided [...] mRNA, LNP-s, No Pre serve, 2-Dose Series ([employer]) 05/14/2020,04/18/2020 H1N1 2009 Influenza, IM 04/22/2009 PPD [...] encounter Miscellaneous Notes * Telephone Encounter - Mahnaz Rowland [facility] - 11/08/2023 9:20 AM EDT Signed Prescriptions: Disp Refills Rosuvastatin Calcium 5 MG Oral Tablet (Cre*30 Tab*5 Sig: TAKE 1 TABLET BY MOUTH EVERY DAYAuthorizing Provider: Tabitha SARKAR User: MAHNAZ ROWLAND---- documented in this encounter Plan of Treatment Upcoming Encounters Date Type Department Care Team (Late st Contact Info) Description 11/08/2023 12:20 PM EDT Office Visit Pulmonary Medicine, [facility] 132 [facility] [place] [address] Bashir Harding MD [address] [place] [address] 11/30/2023 12:30 PM EDT Office Visit Orthopaedics [facility] [place] [address] Ely Cabrales MD 132 [facility] [place] [address] 12/20/2023 9:45 AM EDT Office Visit Urology, [facility] 132 [facility] [place] [address] Man Gu MD [address] [place] [address] 12/26/2023 11:20 AM EST Office Visit General Internal Medicine [facility] 200 [place] [address] Jennifer Sarkar MD [address] [facility] [place] [address] 03/16/2024 2:00 PM EST Office Visit Cardiology, [facility] 132 [facility] [place] [address] Job Bravo PA-C [address] [facility] [place] [address] Scheduled Procedures Name Priority Associated Diagnoses Date/Ti [...] D LEVEL ONCE IN A LIFETIME-USE SMARTSET# [id number] Completed 10/20/2023, 08/17/2023, 12/01/2022, Additional history exists [...] this encounter Medical Devices Implanted Type Area Skid Adzer Device Identifier Shelf Expiration Date Model / Serial / Lot Lens Intraoc 23.0 - [id number] - [id number] Implanted:Qty: 1 on 12/21/2016 by Raj Bernard MD at OR [facility] Left: Eye BAUSCH [employer] LOMB 06/20/2021 [id number] / [id number] / Lens Intraoc 22.0 - [id number] - [id number] Implanted:Qty: 1 on 01/06/2017 by Raj Bernard MD at OR [facility] Right: Eye BAUSCH [employer] LOMB 08/20/2021 [id number] / [id number] / [id number] documented as of this encounter Visit Diagnoses [...] Power of Attor bj? No Care Teams Heel Dipper Relationship Specialty Start Date End Date Jennifer Sarkar MD 200 [place] [address] PCP - General Internal Medicine 10/06/20 documented as of this encounter
--- OUTSIDE RECORDS SUMMARY | 2023-12-25 23:44 | External Medical Summary | Summary of Care ---
Author Name Unknown Organization [facility] Address [address] [address] Phone [phone] Care Team Providers Care Windows Mobile Developer Name Role Phone Domencia Sarkar MD Primary Care Provider [phone] Reason for Visit * Reason Onset Date Comments Medication Refill 10/17/2023 Encounter Details Date Type Department Care Team (Late st Contact Info) Description 10/17/2023 Refill General Internal Medicine [facility] 200 [facility] [place] [address] Domenica Sarkar MD 200 [facility] [place] [address] Dyslipidemia, goal LDL below 100; ANGIOPLASTY WITH CORONARY STENT TO LAD - bare Metal Allergies Active Allergy Reactions Criticality Noted Date Comments Food (See Comments) 03/21/2018 Other reaction(s): WAS TOLD NOT TO TAKE grapefruit Tramadol Other (Please comment) High 10/06/2020 Hallucinations documented as of this encounter (statuses as of 10/31/2023) Medications Medication Sig Dispensed Refills Start Date [...] Active Additional Information Patient taking differently:1,000 mg [id number] PRN, ,may take 3rd dose in between --12/21/2021, Reported on 12/21/2022 Ipratropium-Albuter ol 20-100 MCG/ACT Inhalation Aerosol Solution [...] g 04/07/19 23 Active Saline Nasal Gel (Nasogel)Indication s:Chronic respiratory failure [...] Tablet 1 02/12/20 23 Active oxygen 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:[employer] jonathan respiratory failure with hypoxia (HCC),Chronic right-sided [...] Oral Tablet (Lasix)Indications: Coronary artery disease involving [place] coronary artery of [place] heart without angina pectoris,Chronic right-sided heart failure (HCC),Bilateral leg edema,Encounter for monitoring diuretic therapy 40 mg in the AM and 20 mg in the early afternoon 135 Tablet 3 09/08/19 24 Active Rosuvastatin Calcium 5 MG Oral Tablet (Crestor)Indication s:Dyslipidemia, goal LDL below 100,S/P primary angioplasty with coronary stent TAKE 1 TABLET BY MOUTH EVERY DAY 30 Tablet 1 09/15/19 24 Active Levothyroxine Sodium 112 MCG Oral Tablet (Levoxyl)Indication [...] Active Tamsulosin HCl 0.4 MG Oral Capsule (Flomax)Indications :BPH with obstruction/lower urinary tract symptoms TAKE 1 CAPSULE BY MOUTH EVERYDAY AT BEDTIME 90 Capsule 1 09/27/19 24 Active Citalopram Hydrobromide 20 MG Oral Tablet (CeleXA) TAKE 1 TABLET BY MOUTH EVERY DAY FOR DEPRESSION 90 Tablet 1 09/27/19 24 Active Montelukast Sodium 10 MG Oral Tablet (Singulair)Indicati [...] 01/10/20 23 024 Discontinued(E nd of Procedure) DULoxetine HCl 60 MG Oral Capsule Delayed Release Particles (Cymbalta)Indicatio ns:Chronic pain of both shoulders,Spinal stenosis of lumbar region without neurogenic claudication,Curren t moderate episode of major depressive disorder without prior episode (HCC) Take 1 Capsule by mouth in the morning. Do not cut, crush or chew--inc from 06/23/2023. 90 Capsule 1 06/22/19 24 024 Discontinued Magnesium Hydroxide 400 MG/5ML Oral Suspension (Mom) Take 30 mL by mouth. 07/07/19 24 024 Discontinued(P atient preference/dis continuation) documented as of this encounter (statuses as of 10/31/2023) Active Problems Problem Noted Date Diagnosed Date Hypercalcemia 12/03/2022 Supplemental oxygen dependent 05/06/2022 Nasal septal perforation 05/06/2022 Chronic respiratory failure with hypoxia 022 Granulomatous lung disease 09/18/2021 Chronic rhinitis 06/10/2021 Schatzki's ring of distal esophagus 06/10/2021 Chronic right-sided heart failure 04/08/2020 Coronary artery disease invo lving [place] coronary artery of [place] heart without angina pectoris 11/21/2018 Abnormality [...] hypoxemia 06/08/2007 Overview: 3 LPM at bedtime Na[facility] Ko[facility]ers SPINAL STENOSIS-LUMBAR 07/29/2005 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 Essential tremor documented as of this encounter (statuses as of 10/31/2023) Resolved Problems Problem Noted Date Diagnosed Date [...] as of this encounter (statuses as of 10/31/2023) Immunizations Name Administration Dates Next Due COVID-19 [...] encounter Miscellaneous Notes * Telephone Encounter - Domenica Sarkar MD - 10/17/2023 5:34 PM EDTRefused Prescriptions: Disp Refills Rosuvastatin Calcium 5 MG Oral Tablet (Cre*30 Tab*6 Sig: Take 1 Tablet by mouth in the morning. Refused By: DOMENICA SARKAR Reason for Refusal: Too soon * Telephone Encounter - Tia Lomas LPN - 10/17/2023 4:09 PM EDT Pending Prescriptions: Disp Refills Rosuvastatin Calcium 5 MG Oral Tablet (Cre*30 Tab*6 Sig: Take 1 Tablet by mouth in the morning. * Telephone Encounter - Mahnaz Ma OSA - 10/17/2023 1:13 PM EDT Did you pend patient's preferred pharmacy and medication before forwarding?yes Pharmacy: Pending Prescriptions: Disp Refills Rosuvastatin Calcium 5 MG Oral Tablet (Cr*30 Tab*1 Sig: Take 1 Tablet by mouth in the morning. Last Visit: 06/22/2023 (in office), Visit date not found (telemedicine) Next Visit: 12/26/2023 If no future appointments scheduled, and last appointment is greater than a year ago, please schedule patient for a follow-up appointment Last date the medication was ordered: [id number] Is this request for a controlled substance?No Urine Drug Screen:No results found. However, due to the size of the patient record, not all encounters were searched. Please check Results Review for a complete set of results. Patient Phone Numbers Labs: Lab Results Component Value Date/Time CREAT 1.0 09/08/2023 03:24 PM CREAT 1.00 10/03/2020 12:00 AM CREAT 1.0 01/02/2020 12:23 PM POTASSIUM 4.2 09/08/2023 03:24 PM POTASSIUM 4.0 10/03/2020 12:00 AM POTASSIUM [...] AM EDT Office Visit General Internal Medicine [facility] [address] [place] [address] Domenica Sarkar MD 200 [facility] [place] [address] 11/08/2023 12:20 PM EDT Office Visit Pulmonary Medicine, [facility] 132 [facility] [place] [address] Bashir Harding MD [address] [place] [address] 11/30/2023 12:30 PM EDT Office Visit Orthopaedics [facility] 132 [facility] [place] [address] Ely Cabrales MD 132 [facility] [place] [address] 12/20/2023 9:45 AM EDT Office Visit Urology, [facility] 132 [facility] [place] [address] Man Gu MD [address] [place] [address] 12/26/2023 11:20 AM EST Office Visit General Internal Medicine [facility] [address] [place] [address] Domenica Sarkar MD [address] [place] [address] 03/16/2024 2:00 PM EST Office Visit Cardiology, [facility] [address] [place] [address] Job Bravo PA-C [address] [place] [address] Scheduled Procedures Name Priority Associated Diagnoses Date/Ti [...] D LEVEL ONCE IN A LIFETIME-USE SMARTSET# [id number] Completed 10/20/2023, 08/17/2023, 12/01/2022, Additional history exists [...] this encounter Medical Devices Implanted Type Area Refinery Operator Light Ends Recovery Device Identifier Shelf Expiration Date Model / Serial / Lot Lens Intraoc 23.0 - [id number] - [id number] Implanted:Qty: 1 on 12/21/2016 by Raj Bernard MD at OR [facility] Left: Eye [employer]CH [employer] LOMB 06/20/2021 [id number] / [id number] / Lens Intraoc 22.0 - [id number] - [id number] Implanted:Qty: 1 on 01/06/2017 by Raj Bernard MD at OR [facility] Right: Eye BAUSCH & LOMB 08/20/2021 [id number] / [id number] / [id number] documented as of this encounter Visit Diagnoses [...] Power of Attor bj? No Care Teams Windows Mobile Developer Relationship Specialty Start Date End Date Domenica Sarkar MD 200 [facility] [place] [address] PCP - General Internal Medicine 10/06/20 documented as of this encounter
--- OUTSIDE RECORDS SUMMARY | 2023-12-25 23:45 | External Medical Summary ---
Author Name Unknown Address Unknown Organization : Laboratory Report Ordering Provider Test Date Status JESSA METZGER 10/18/2023 11:05:44 Final Observation Date Value Abnormality Reference (Units ) Status TOTAL URINE VOLUME 10/18/2023 11:05:44 1.01 Below low normal >2.00 (L/day) Final This test was developed and its analytical
performance characteristics have been determined
by [facility]. It has not been cleared or
approved by the FDA. This assay has been validated
pursuant to the CLIA regulations and is used for
clinical purposes. PH URINE 10/18/2023 11:05:44 5.9 5.5-7.0 Final CALCIUM, 24 HOUR URINE 10/18/2023 11:05:44 225 <250.0 (mg/day) Final This test was developed and its analytical
performance characteristics have been determined
by [facility]. It has not been cleared or
approved by the FDA. This assay has been validated
pursuant to the CLIA regulations and is used for
clinical purposes. OXALATE, 24 HOUR URINE 10/18/2023 11:05:44 12 <45 (mg/day) Final This test was developed and its analytical
performance characteristics have been determined
by [facility]. It has not been cleared or
approved by the FDA. This assay has been validated
pursuant to the CLIA regulations and is used for
clinical purposes. URIC ACID, 24 HOUR URINE 10/18/2023 11:05:44 324 <700 (mg/day) Final This test was developed and its analytical
performance characteristics have been determined
by [facility]. It has not been cleared or
approved by the FDA. This assay has been validated
pursuant to the CLIA regulations and is used for
clinical purposes. CITRIC ACID, 24 HOUR URINE 10/18/2023 11:05:44 246 Below low normal >320 (mg/day) Fin al This test was developed and its analytical
performance characteristics have been determined
by [facility]. It has not been cleared or
approved by the FDA. This assay has been validated
pursuant to the CLIA regulations and is used for
clinical purposes. SODIUM, 24 HOUR URINE 10/18/2023 11:05:44 53 <200 (mEq/day) Final This test was developed and its analytical
performance characteristics have been determined
by [facility]. It has not been cleared or
approved by the FDA. This assay has been validated
pursuant to the CLIA regulations and is used for
clinical purposes. SULFATE, 24 HOUR URINE 10/18/2023 11:05:44 7 <30 (mmol/day) Final This test was developed and its analytical
performance characteristics have been determined
by [facility]. It has not been cleared or
approved by the FDA. This assay has been validated
pursuant to the CLIA regulations and is used for
clinical purposes. PHOSPHORUS, 24 HOUR URINE 10/18/2023 11:05:44 531 <1100 (mg/day) Final This test was developed and its analytical
performance characteristics have been determined
by [facility]. It has not been cleared or
approved by the FDA. This assay has been validated
pursuant to the CLIA regulations and is used for
clinical purposes. MAGNESIUM, 24 HOUR URINE 10/18/2023 11:05:44 58 Below low normal >60.0 (mg/day) Final This test was developed and its analytical
performance characteristics have been determined
by [facility]. It has not been cleared or
approved by the FDA. This assay has been validated
pursuant to the CLIA regulations and is used for
clinical purposes. POTASSIUM, 24 HOUR URINE 10/18/2023 11:05:44 31 19-135 (mEq/day) Final This test was developed and its analytical
performance characteristics have been determined
by [facility]. It has not been cleared or
approved by the FDA. This assay has been validated
pursuant to the CLIA regulations and is used for
clinical purposes. CREATININE, 24 HOUR URINE 10/18/2023 11:05:44 686 Below low normal 800-2000 (mg/day) Final This test was developed and its analytical
performance characteristics have been determined
by [facility]. It has not been cleared or
approved by the FDA. This assay has been validated
pursuant to the CLIA regulations and is used for
clinical purposes. CALCIUM OXALATE 10/18/2023 11:05:44 2.08 Above high nor mal <2.00 (CALC) Final BRUSHITE 10/18/2023 11:05:44 2.63 Above high normal <2 .00 (CALC) Final SODIUM URATE 10/18/2023 11:05:44 1.17 <2.00 ( CALC) Final URIC ACID 10/18/2023 11:05:44 1.62 <2.00 (ALEXANDER C) Final THE PATIENT HAS: 10/18/2023 11:05:44 SEE BELOW (CA LC) Final Hypocitraturia
Low urine volume SUPERSATURATION INDEX: 10/18/2023 11:05:44 SEE BELOW Final Calcium oxalate
Brushite (Ca phosphate) SUSPECTED PROBLEM IS: 10/18/2023 11:05:44 SEE BELOW (CALC) Final Hypocitraturic Nephrolithias is COMMENTS 10/18/2023 11:05:44 DNR Final Test performed by [facility]
[id number],
[place] [address]

Correction Officer Supervisor: Mana Orona MD,PHD,VIRGIE
[facility],
[facility],
[address], [place]
Byron Batres M.D., Ph.D., Director of Laboratories
, [facility] [id number] Performing Location
[2023-12-26 00:17] LABS: Basophils # (auto) 0.04 K/uL (0.00-0.20); Basophils % (auto) 0.3 %; Eosinophils # (auto) 0.25 K/uL (0.00-0.50); Eosinophils % (auto) 2.1 %; Hematocrit (blood only) 49.1 % (42.0-52.0); Hemoglobin 16.6 g/dl (14.0-18.0); Immature Granulocytes # (auto) 0.12 K/uL (0.01-0.20); Lymphocytes # (auto) 1.98 K/uL (1.20-3.40); Lymphocytes % (auto) 16.7 %; Mean Corpuscular Hemoglobin 31.7 pg (25.0-34.0); Mean Corpuscular Hgb Conc 33.8 g/dL (32.0-36.0); Mean Corpuscular Volume 93.9 fL (80.0-100.0); Mean Platelet Volume 9.3 fL (9.4-12.4); Monocytes # (auto) 0.99 K/uL (0.11-0.59); Monocytes % (auto) 8.3 %; Neutrophils # (auto) 8.51 K/uL (1.40-6.50); Neutrophils % (auto) 71.6 %; Platelet Count 151 K/uL (130-400); RDW Coefficient of Variation 13.8 % (11.5-14.5); RDW Standard Deviation 47.5 fL (36.4-46.3); Red Blood Count 5.23 M/uL (4.70-6.10); White Blood Count 11.89 K/ul (4.8-10.8)
[2023-12-26 00:32] LABS: Albumin Globulin Ratio 1.3 (0.9-2); Albumin Level 4.3 gm/dl (3.4-5.0); BUN Creatinine Ratio 14.1 (10-20); Bilirubin,Total 0.7 mg/dl (0.2-1.0); Creatinine Clr Calc Pharmacy 59.5 ml/min; Globulin 3.4 gm/dl (2.5-4.0); Magnesium 2.1 mg/dl (1.7-2.4); Phosphorus 3.7 mg/dl (2.5-4.9); Total Protein 7.7 gm/dl (6.0-8.3)
[2023-12-26 00:39] LABS: Prothrombin Time 10.4 Seconds (9.0-12.0); Troponin I High Sensitivity 15.6 pg/ml (0-20)
[2023-12-26 00:48] LABS: Thyroid Stimulating Hormone 5.848 uIu/ml (0.300-4.500)
[2023-12-26 01:24] LABS: T4 Free Thyroxine 1.12 ng/dl (0.61-1.60)
--- NOTE | 2023-12-26 01:47 | XRay Report ---
EXAM: XR chest 1V portable CLINICAL HISTORY: [facility] TECHNIQUE: An X-ray image of the chest is obtained in AP projection. COMPARISON: Compared with the previous study dated 10/28/2023 FINDINGS: Limited study due to expiratory film Pulmonary Parenchyma: Evidence of right para cardiac patchy opacity obscuring right heart border suggesting infectious process. A well-defined small pulmonary nodule is seen in the right mid/lower lung zone. Elevation of right diaphragmatic coupla with mild obliteration of right costophrenic angle suggests mild right pleural effusion. Retrocardiac opacity is seen. Heart and Mediastinum: Heart size is increased taking into consideration expiratory film. Bony Thorax: Scoliotic changes of the thoracic spine with convexity to the right side The bony thorax appears intact without fractures or deformities. Soft Tissues: Soft tissues overlying the chest wall are unremarkable. IMPRESSION: Right para cardiac patchy opacity obscuring right heart border suggesting of infectious/inflammatory process ( no significant changes in comparison with the previous study) Right mid/lower lung zone small pulmonary nodule (same finding in comparison with the previous study) Elevation of right diaphragmatic coupla with mild obliteration of right hemidiaphragm suggesting mild right pleural effusion( no significant changes). Increase cardiac size with retrocardiac opacity ( same finding) Electronically signed by Gail Bender 12-26-2023 01:47 AM
[2023-12-26] MEDS: oxyCODONE HCL IR 5 MG TAB (IMMEDIATE RELEASE) PO STA (01:57)
--- NOTE | 2023-12-26 02:18 | CT Scan Report ---
EXAM: CT head/brain wo con CLINICAL HISTORY: Extremity weakness TECHNIQUE: Axial non-contrast CT scan of the brain was performed from the skull base to the high parietal region. One of the following dose reduction techniques were utilized for this exam: Automated exposure control, adjustment of the mA and/or kV according to patient size, use of iterative reconstruction. COMPARISON: 10/29/2023 FINDINGS: Brain Parenchyma: Age-related parenchymal volume loss with capacious extra-axial CSF spaces. Periventricular extensive confluent hypodensities, likely related to high-grade small vessel disease. No evidence of acute infarct, hemorrhage, or mass effect. Ventricular System: No evidence of hydrocephalus or ventricular enlargement. Subarachnoid Spaces: No evidence of subarachnoid hemorrhage or extra-axial fluid collections. Cerebellum and Brainstem: No masses, lesions, or areas of abnormal density. Orbits: No evidence of orbital masses or abnormal density. Sinuses: Mucosal thickening of paranasal sinuses with partial opacification of the right ethmoid air cells, associated with right lamina papyracea thinning and remodeling. Mastoid Air Cells: Clear mastoid air cells. No evidence of mastoiditis. IMPRESSION: 1. No acute brain hemorrhage. 2. Nearly stable parenchymal volume loss and bilateral periventricular hypodensities, likely high-grade small vessel disease, if clinically indicated please correlate with brain MRI. 3. Nearly stable mucosal thickening of paranasal sinuses and partial opacification of the right ethmoidal air cells with bone remodeling, clinical correlation is advised. Electronically signed by Gail Bender 12-26-2023 02:17 AM
--- NOTE | 2023-12-26 02:32 | CT Scan Report ---
EXAM: CT lumbar spine wo con CLINICAL HISTORY: Extremity weakness TECHNIQUE: CT non-contrast scan of lumbar spine done. Axial images obtained with reformatted coronal and sagittal images and submitted for interpretation. One of the following dose reduction techniques were utilized for this exam: Automated exposure control, adjustment of the mA and/or kV according to patient size, use of iterative reconstruction. COMPARISON: 01/02/2023 FINDINGS: Severe levoscoliosis is present in the lumbar spine with only partially covered curvature, the probable Linda angle measures up to 51. Generalized reduced bone mineralization. Moderate to severe degenerative changes are seen in the spine with multilevel marginal osteophytes, variably reduced intervertebral disc spaces, discal calcifications and vacuum phenomena. Multilevel facet arthropathy is also present. Variable neural foraminal narrowing more marked at the level of lower lumbar spine. No definite fractures, lytic or sclerotic lesions. Spinal canal is of normal caliber with no evidence of spinal stenosis. Fatty degeneration is seen in the paravertebral muscles. Incidental note is made of few non-obstructing right renal calyceal calculi, partially covered right renal cyst and cholelithiasis. IMPRESSION: 1. Severe levoscoliosis is present in the lumbar spine with only partially covered curvature, the probable Linda angle measures up to 51. 2. Moderate to severe degenerative changes are seen in the spine. Contributed by facet arthropathy, variable neural foraminal narrowing more marked at the level of lower lumbar spine. 3. No significant interval change. 4. Incidental note is made of few non-obstructing right renal calyceal calculi, partially covered right renal cyst and cholelithiasis. [facility] was called at [phone] at 1:28 AM COMPUTER OPERATIONS TECHNICIAN on 12/26/2023 and results were verbally communicated with Steve Perla . Electronically signed by Gail Bender 12-26-2023 02:32 AM
--- NOTE | 2023-12-26 02:33 | CT Scan Report ---
EXAM: CT cervical spine wo con CLINICAL HISTORY: Extremity weakness TECHNIQUE: Axial sections of CT cervical spine were obtained without administration of intravenous contrast. Reformatted coronal and sagittal images were acquired. "one of the following dose reduction techniques were utilized for this exam: Automated exposure control, adjustment of the mA and/or kV according to patient size, use of iterative reconstruction." COMPARISON: 10/28/2023 FINDINGS: No acute vertebral fracture is seen. Loss of cervical lordosis, likely secondary to muscular spasm. Subtle anterior listhesis of C7 over T1. Spondylotic changes in the visualized spine with multilevel osteophytes, facet arthropathic changes, endplate changes and reduced intervertebral disc space. Multilevel disc osteophyte complexes exerting effects on the spinal canal and neural foramina in combination with facet arthropathic changes. Atlantoaxial joint degenerative changes are seen. Reduced bone density. No significant abnormality in the visualized soft tissues. IMPRESSION: No acute fracture seen. Spondylotic changes in the cervical spine, unchanged from prior CT examination. Electronically signed by Gail Bender 12-26-2023 02:32 AM
[2023-12-26] MEDS ORDERED: PROMETHAZINE 6.25 MG/50.25 ML BAG IV PRN (02:45)
[2023-12-26] MEDS ORDERED: ACETAMINOPHEN 325 MG TAB PO PRN (02:45)
--- NOTE | 2023-12-26 02:46 | History & Physical Report ---
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 chronic anemia, hemoglobin better than baseline likely secondary to hemoconcentration anxiety/mood disorder, at baseline Essential tremors on propranolol BPH, patient on maximal medical therapy for voiding symptoms as per outpatient recent urology note from last week. Hyperglycemia rule out DM past tobacco abuse OBS GMF Analgesia PT OT eval Check hemoglobin A1c DVT prophylaxis. SCDs recent trauma Full code Patient daughter requesting updates from providers. Ms. Ciara Mcgrath, contact #[phone]. Text document was generated using [email or web address] voice recognition software. It may contain grammatical or spelling errors. Kindly contact undersigned for clarification of any documentation item in question. History of Present Illness Chief Complaint: Fall, back pain Primary Care Provider: Jennifer Sarkar MD History obtained from patient and records. 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 Patient discharged home with home health PT recommendations. Patient slipped out of lift chair and had trouble getting up. Denies head trauma, LOC. No chest pain. Usual SOB. Patient had trouble getting up. Worsening of chronic back pain without unusual leg weakness or incontinence symptoms. MEDICAL HISTORY: As above. SURGERIES: Hernia surgery, foot surgery, ESWL, tonsillectomy, cataract surgeries, urologic procedures FAMILY HISTORY: Lung cancer, DM PERSONAL SOCIAL HISTORY: Past tobacco use. Occasional EtOH intake, retired [employer] employee Allergies Allergy/AdvReac Type Severity Reaction Status Date / Time tramadol AdvReac Intermediate Hallucinati Verified 03/12/23 02:38 ng grapefruit AdvReac Unknown WAS TOLD Verified 03/12/23 02:38 NOT TO TAKE BECAUSE OF CHOLESTROL PILL. Home Medications Medication Instructions Recorded Confirmed Type acetaminophen 500 mg tablet 1,000 mg (2 x 500 mg) PO Q8H PRN 07/13/23 12/26/23 Rx (Tylenol Extra Strength) fever or pain #90 tabs citalopram 40 mg tablet 20 mg (1/2 x 40 mg) PO QAM #30 tabs 07/13/23 12/26/23 Rx clopidogrel 75 mg tablet (Plavix) See Rx Instructions .Route 07/13/23 12/26/23 Rx .COMPLEX #30 tabs duloxetine 30 mg capsule,delayed 60 mg (2 x 30 mg) PO QAM Pain #30 07/13/23 12/26/23 Rx release caps furosemide 20 mg tablet 20 mg PO QAM #30 tabs 07/13/23 12/26/23 Rx ipratropium 20 mcg-albuterol 100 1 puff inhalation QID #4 grams 07/13/23 12/26/23 Rx mcg/actuation mist for inhalation levothyroxine 112 mcg tablet 112 mcg PO DAILYBB #30 tabs 07/13/23 12/26/23 Rx montelukast 10 mg tablet 10 mg PO QAM #30 tabs 07/13/23 12/26/23 Rx (Singulair) nitroglycerin 0.4 mg sublingual 1 tab sublingual UD PRN Angina #30 07/13/23 12/26/23 Rx tablet tabs pantoprazole 20 mg tablet,delayed 20 mg PO DAILYBB #30 tabs 07/13/23 12/26/23 Rx release propranolol 20 mg tablet 20 mg PO TID #90 tabs 07/13/23 12/26/23 Rx rosuvastatin 5 mg tablet 5 mg PO QAM #30 tabs 07/13/23 12/26/23 Rx tamsulosin 0.4 mg capsule 0.4 mg PO HS #30 caps 07/13/23 12/26/23 Rx sodium chloride-aloe vera nasal 1 applic intranasal PM PRN Dry 12/26/23 12/26/23 History gel (Saline Nasal (aloe vera) gel) Nasal Passages Past Med/Surg History Problem List (Updated 12/26/23 @ 11:02 by Mele Aguila MD) Back pain Chronic respiratory failure (Acute) Dizziness (Acute) Fall (Acute) Kidney stones ONE PRESENT/NO PROBLEMS WITH Hematuria Ambulatory dysfunction (Acute) Chronic hypoxic respiratory failure, on home oxygen therapy (Acute) Fall (Acute) Dizziness (Acute) Leukocytosis (Acute) Ambulatory dysfunction (Acute) Generalized weakness (Acute) COPD (chronic obstructive pulmonary disease) (Acute) Physical deconditioning (Acute) Dependence on supplemental oxygen (Acute) Fall Elevated hemidiaphragm Pneumonia Scoliosis (Acute) Right heart failure Hypokalemia Acute and chronic respiratory failure Chronic obstructive pulmonary disease Depression Hyperlipidemia Hypertension Shortness of breath (Acute) Pulmonary edema (Acute) Acute exacerbation of CHF (congestive heart failure) (Acute) Encounter for pre-operative examination Spinal stenosis (Chronic) Encounter for pre-operative examination Acute respiratory failure (Acute) Shortness of breath Leukocytosis Aspiration into airway Medical History (Updated 12/26/23 @ 11:02 by Mele Aguila MD) Bilateral shoulder pain Fall Restrictive lung disease Acute on chronic respiratory failure with hypoxemia Acute and chronic respiratory failure with hypercapnia Pulmonary embolism COVID-19 Choking REASON FOR UPCOMING PROCEDURE PER PT Ankle swelling PT PLANS TO DISCUSS WITH DR PT REPORTS DR HAD HIM STOP FLUID PILL AND NOT SURE WHY Infected dental caries Subperiosteal abscess of jaw Acute periodontal abscess Pain, dental Generalized muscle weakness Lower urinary tract symptoms (LUTS) Hypoxia DVT prophylaxis Chronic right-sided heart failure Fall HX, NOT RECENTLY Cervical spine fracture LAST SUMMER NO LIMITATIONS SOB (shortness of breath) on exertion with wheezing Scoliosis Chronic back pain GERD (gastroesophageal reflux disease) Hypothyroidism On anticoagulant therapy plavix daily 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 Myocardial Infarction 2009 Sleep apnea uses 4 L N/C MOSTLY ALL THE TIME On home oxygen therapy 3-4 L CONTINUOUS MOSTLY, AND PRN PER PT COPD (chronic obstructive pulmonary disease) Dyslipidemia HTN (hypertension) Hypothyroidism CAD (coronary artery disease) Surgical History (Updated 12/01/23 @ 00:09 by Johnie Carter) Hx of oral surgery (07/05/21) Multiple Teeth Extractions for Facial Infection - Sin Chacko DMD NO CURRENT INFECTION PER PT (PAT CALL 08/18/21) History of testicular surgery "sac full of blood in testicle drained at 26 yrs old" History of heart artery stent x1 2009--[facility] History of open reduction and internal fixation (ORIF) procedure left foot fx/pinky toe fx--hardware in place History of lithotripsy Hx of vasectomy Hx of right inguinal hernia repair History of colonoscopy History of esophagogastroduodenoscopy (EGD) History of wisdom tooth extraction History of tonsillectomy History of bilateral cataract extraction History of cardiac cath 2009 @ [facility] with 1 stent--follows with Dr. Ramirez Stented coronary artery "bare metal stent to LAD 2008" Family History Sister Family history of reaction to anesthesia nausea/vomiting Mother Family history of diabetes mellitus Social History Smoking Status: Former smoker Tobacco Type: Pipe and Cigars Cigarettes Per Day: SMOKED PIPE/CIGAR AGE 21'S; Second Hand Exposure: No; Do You Dip or Chew Tobacco: No; Tobacco Cessation Education Requested by Patient: No Hx Alcohol Use: No Hx Substance Use: No Preferred Language: Bulgarian Communication Ability: Effective Communication Tools: Other Visual Impairment: No Limitations Auto Body Repairer Required: No Beliefs That Will Affect Care: None marital status: Current Living Situation: Alone Current Living Situation Comment: DOG How many Children do You have: 1 Other Information That Helps Us Care for You: No Feels Safe at Home: Yes Safety Concerns: Feels Safe At This Time Assistive Devices: Cane, Hospital Bed, Oxygen - Continuous and Walker Assistive Devices Comment: Cane short distances, walker long distance. Review of Systems Review of Systems: As per HPI, all other systems reviewed and negative Physical Exam Physical Exam: GENERAL: Slightly uncomfortable, pleasant, slightly hard of hearing, no respiratory distress SKIN: Pallor, warm HEENT: Alopecia, pale palpebral conjunctivae, no ptosis, dry buccal mucosa, nasal cannula in place NECK : Supple, no tenderness CHEST : Decreased breath sounds, no tenderness HEART : RRR, no obvious murmurs ABDOMEN: Some distention, nontender BACK : Mid to low back tenderness EXTREMITIES : Minimal LE swelling, no LE tenderness, no other conspicuous deformities noted NEUROLOGIC : Coherent, no facial asymmetry, rest tremors, gait and stance not as sessed Results & Data Results & Data Vital Signs (Past 12 Hours) Vital Signs Temp Pulse Resp BP Pulse Ox O2 Del Method O2 Flow Rate 12/26/23 00:44 68 12/26/23 00:13 63 20 95 Room Air 3.5 12/25/23 23:42 36.4 C L 64 20 132/80 96 Nasal Cannula Laboratory Results Laboratory Results WBC 11.89 K/ul (4.8-10.8) H 12/26/23 00:02 RBC 5.23 M/uL (4.70-6.10) 12/26/23 00:02 Hgb 16.6 g/dl (14.0-18.0) 12/26/23 00:02 Hct 49.1 % (42.0-52.0) 12/26/23 00:02 MCV 93.9 fL (80.0-100.0) 12/26/23 00:02 MCH 31.7 pg (25.0-34.0) 12/26/23 00:02 MCHC 33.8 g/dL (32.0-36.0) 12/26/23 00:02 RDW Std Deviation 47.5 fL (36.4-46.3) H 12/26/23 00:02 RDW Coeff of Mannie 13.8 % (11.5-14.5) 12/26/23 00:02 Plt Count 151 K/uL (130-400) 12/26/23 00:02 MPV 9.3 fL (9.4-12.4) L 12/26/23 00:02 Immature Gran % (Auto) 1.0 % 12/26/23 00:02 Neut % (Auto) 71.6 % 12/26/23 00:02 Lymph % (Auto) 16.7 % 12/26/23 00:02 [place] % (Auto) 8.3 % 12/26/23 00:02 Eos % (Auto) 2.1 % 12/26/23 00:02 Baso % (Auto) 0.3 % 12/26/23 00:02 Neut # (Auto) 8.51 K/uL (1.40-6.50) H 12/26/23 00:02 Lymph # (Auto) 1.98 K/uL (1.20-3.40) 12/26/23 00:02 [place] # (Auto) 0.99 K/uL (0.11-0.59) H 12/26/23 00:02 Eos # (Auto) 0.25 K/uL (0.00-0.50) 12/26/23 00:02 Baso # (Auto) 0.04 K/uL (0.00-0.20) 12/26/23 00:02 Immature Gran # (Auto) 0.12 K/uL (0.01-0.20) 12/26/23 00:02 PT 10.4 Seconds (9.0-12.0) 12/26/23 00:02 INR 1.0 (0.9-1.1) 12/26/23 00:02 Sodium 140 mmol/L (136-145) 12/26/23 00:02 Potassium 4.0 mmol/L (3.5-5.1) 12/26/23 00:02 Chloride 96 mmol/L (98-107) L 12/26/23 00:02 Carbon Dioxide 37 mmol/L (21-32) H 12/26/23 00:02 Anion Gap 7 (3-11) 12/26/23 00:02 BUN 13 mg/dl (6-23) 12/26/23 00:02 Creatinine 0.92 mg/dl (0.6-1.4) 12/26/23 00:02 Est Cr Clr Drug Dosing 59.5 ml/min 12/26/23 00:02 eGFR 83.05 12/26/23 00:02 BUN/Creatinine Ratio 14.1 (10-20) 12/26/23 00:02 Glucose 114 mg/dl (70-99(Fasting)) H 12/26/23 00:02 Calcium 10.0 mg/dl (8.6-10.3) 12/26/23 00:02 Phosphorus 3.7 mg/dl (2.5-4.9) 12/26/23 00:02 Magnesium 2.1 mg/dl (1.7-2.4) 12/26/23 00:02 Total Bilirubin 0.7 mg/dl (0.2-1.0) 12/26/23 00:02 AST 19 U/L (13-39) 12/26/23 00:02 ALT 17 U/L (7-52) 12/26/23 00:02 Alkaline Phosphatase 88 U/L (34-104) 12/26/23 00:02 Total Creatine Kinase 74 U/L (30-223) 12/26/23 00:02 Troponin I High Sens 15.6 pg/ml (0-20) 12/26/23 00:02 Total Protein 7.7 gm/dl (6.0-8.3) 12/26/23 00:02 Albumin 4.3 gm/dl (3.4-5.0) 12/26/23 00:02 Globulin 3.4 gm/dl (2.5-4.0) 12/26/23 00:02 Albumin/Globulin Ratio 1.3 (0.9-2) 12/26/23 00:02 TSH 5.848 uIu/ml (0.300-4.500) H 12/26/23 00:02 Free T4 1.12 ng/dl (0.61-1.60) 12/26/23 00:02 Impressions Chest X-Ray 12/25/23 23:50 EXAM: XR chest 1V portable CLINICAL HISTORY: GENERALIZED WEAKNESS [facility] TECHNIQUE: An X-ray image of the chest is obtained in AP projection. COMPARISON: Compared with the previous study dated 10/28/2023 FINDINGS: Limited study due to expiratory film Pulmonary Parenchyma: Evidence of right para cardiac patchy opacity obscuring right heart border suggesting infectious process. A well-defined small pulmonary nodule is seen in the right mid/lower lung zone. Elevation of right diaphragmatic coupla with mild obliteration of right costophrenic angle suggests mild right pleural effusion. Retrocardiac opacity is seen. Heart and Mediastinum: Heart size is increased taking into consideration expiratory film. Bony Thorax: Scoliotic changes of the thoracic spine with convexity to the right side The bony thorax appears intact without fractures or deformities. Soft Tissues: Soft tissues overlying the chest wall are unremarkable. IMPRESSION: Right para cardiac patchy opacity obscuring right heart border suggesting of infectious/inflammatory process ( no significant changes in comparison with the previous study) Right mid/lower lung zone small pulmonary nodule (same finding in comparison with the previous study) Elevation of right diaphragmatic coupla with mild obliteration of right hemidiaphragm suggesting mild right pleural effusion( no significant changes). Increase cardiac size with retrocardiac opacity ( same finding) Electronically signed by Gail Bender 12-26-2023 01:[address] 12/26/23 00:40 EXAM: CT cervical spine wo con CLINICAL HISTORY: Extremity weakness TECHNIQUE: Axial sections of CT cervical spine were obtained without administration of intravenous contrast. Reformatted coronal and sagittal images were acquired. "one of the following dose reduction techniques were utilized for this exam: Automated exposure control, adjustment of the mA and/or kV according to patient size, use of iterative reconstruction." COMPARISON: 10/28/2023 FINDINGS: No acute vertebral fracture is seen. Loss of cervical lordosis, likely secondary to muscular spasm. Subtle anterior listhesis of C7 over T1. Spondylotic changes in the visualized spine with multilevel osteophytes, facet arthropathic changes, endplate changes and reduced intervertebral disc space. Multilevel disc osteophyte complexes exerting effects on the spinal canal and neural foramina in combination with facet arthropathic changes. Atlantoaxial joint degenerative changes are seen. Reduced bone density. No significant abnormality in the visualized soft tissues. IMPRESSION: No acute fracture seen. Spondylotic changes in the cervical spine, unchanged from prior CT examination. Electronically signed by Gail Bender 12-26-2023 02:[address] 12/26/23 00:40 EXAM: CT head/brain wo con CLINICAL HISTORY: Extremity weakness TECHNIQUE: Axial non-contrast CT scan of the brain was performed from the skull base to the high parietal region. One of the following dose reduction techniques were utilized for this exam: Automated exposure control, adjustment of the mA and/or kV according to patient size, use of iterative reconstruction. COMPARISON: 10/29/2023 FINDINGS: Brain Parenchyma: Age-related parenchymal volume loss with capacious extra-axial CSF spaces. Periventricular extensive confluent hypodensities, likely related to high-grade small vessel disease. No evidence of acute infarct, hemorrhage, or mass effect. Ventricular System: No evidence of hydrocephalus or ventricular enlargement. Subarachnoid Spaces: No evidence of subarachnoid hemorrhage or extra-axial fluid collections. Cerebellum and Brainstem: No masses, lesions, or areas of abnormal density. Orbits: No evidence of orbital masses or abnormal density. Sinuses: Mucosal thickening of paranasal sinuses with partial opacification of the right ethmoid air cells, associated with right lamina papyracea thinning and remodeling. Mastoid Air Cells: Clear mastoid air cells. No evidence of mastoiditis. IMPRESSION: 1. No acute brain hemorrhage. 2. Nearly stable parenchymal volume loss and bilateral periventricular hypodensities, likely high-grade small vessel disease, if clinically indicated please correlate with brain MRI. 3. Nearly stable mucosal thickening of paranasal sinuses and partial opacification of the right ethmoidal air cells with bone remodeling, clinical correlation is advised. Electronically signed by Gail Bender 12-26-2023 02:[address] 12/26/23 00:40 EXAM: CT lumbar spine wo con CLINICAL HISTORY: Extremity weakness TECHNIQUE: CT non-contrast scan of lumbar spine done. Axial images obtained with reformatted coronal and sagittal images and submitted for interpretation. One of the following dose reduction techniques were utilized for this exam: Automated exposure control, adjustment of the mA and/or kV according to patient size, use of iterative reconstruction. COMPARISON: 01/02/2023 FINDINGS: Severe levoscoliosis is present in the lumbar spine with only partially covered curvature, the probable Linda angle measures up to 51. Generalized reduced bone mineralization. Moderate to severe degenerative changes are seen in the spine with multilevel marginal osteophytes, variably reduced intervertebral disc spaces, discal calcifications and vacuum phenomena. Multilevel facet arthropathy is also present. Variable neural foraminal narrowing more marked at the level of lower lumbar spine. No definite fractures, lytic or sclerotic lesions. Spinal canal is of normal caliber with no evidence of spinal stenosis. Fatty degeneration is seen in the paravertebral muscles. Incidental note is made of few non-obstructing right renal calyceal calculi, partially covered right renal cyst and cholelithiasis. IMPRESSION: 1. Severe levoscoliosis is present in the lumbar spine with only partially covered curvature, the probable Linda angle measures up to 51. 2. Moderate to severe degenerative changes are seen in the spine. Contributed by facet arthropathy, variable neural foraminal narrowing more marked at the level of lower lumbar spine. 3. No significant interval change. 4. Incidental note is made of few non-obstructing right renal calyceal calculi, partially covered right renal cyst and cholelithiasis. [facility] was called at [phone] at 1:28 AM PAYROLL BENEFITS CLERK on 12/26/2023 and results were verbally communicated with Steve Perla . Electronically signed by Gail Bender 12-26-2023 02:32 AM Diagnostic Findings EKG as per my interpretation :Rate 65, NSR, normal axis, no ischemia Code Status & VTE Plan VTE Prophylaxis Plan VTE Prophylaxis will be ordered: Yes
[2023-12-26] MEDS: tiZANidine HCL 4 MG TABLET PO STA (03:00)
[2023-12-26] MEDS: KETOROLAC TROMETHAMINE 15 MG/ML VIAL IV ONE (03:00)
[2023-12-26] MEDS: oxyCODONE HCL IR 5 MG TAB (IMMEDIATE RELEASE) PO PRN (05:38)
[2023-12-26] MEDS: LEVOTHYROXINE SODIUM 112 MCG TABLET PO SCH (05:49)
[2023-12-26] MEDS: PANTOprazole 40 MG TAB PO SCH (05:49)
[2023-12-26 06:22] LABS: Appearance Urine Clear (Clear); Bacteria Urine Automated None Seen (None Seen); Bilirubin Urine Negative (Negative); Blood Urine Negative (Negative); Cast Urine Automated 0-2 /lpf (0-2); Color Urine Yellow; Epithelial Cell Urine Auto 0-2 /hpf (0-2); Glucose Urine UA Negative (Negative); Ketones Urine Negative (Negative); Leukocyte Esterase Urine Trace (Negative); Nitrite Urine Negative (Negative); Protein Urine Negative (Negative); Specific Gravity Urine 1.014 (1.000-1.030); Urobilinogen Urine Negative (Negative); pH Urine 7.5 (4.5-7.5)
[2023-12-26] MEDS: Ipratropium HFA Inhaler (Combivent Respimat P&T Subs) INH SCH (07:36)
[2023-12-26] MEDS: Albuterol HFA 8 GM Inhaler (Combivent Respimat P&T Subs) INH SCH (07:36)
[2023-12-26] MEDS: CITALOPRAM 20 MG TAB PO SCH (07:54)
[2023-12-26] MEDS: DULoxetine HCL 60 MG CAP PO SCH (07:54)
[2023-12-26] MEDS: MONTELUKAST SODIUM 10 MG TABLET PO SCH (07:54)
[2023-12-26] MEDS: FUROSEMIDE 20 MG TAB PO SCH (07:55)
[2023-12-26] MEDS: PROPRANOLOL HCL 20 MG TAB PO SCH (07:55)
[2023-12-26] MEDS: CLOPIDOGREL BISULFATE 75 MG TAB PO SCH (07:55)
[2023-12-26] MEDS: ROSUVASTATIN CALCIUM 5 MG TAB PO SCH (07:55)
[2023-12-26 08:36] LABS: Estimated Average Glucose 126 mg/dl
[2023-12-26] MEDS ORDERED: IPRATROPIUM BROMIDE/ALBUTEROL respimat INH INH SCH (09:00)
--- NOTE | 2023-12-26 14:03 | Hospitalist Progress Note ---
Date of Service December 26, 2023 Assessment & Plan (1) Back pain: Plan: Acute on chronic back pain due to degenerative disc disease with some lumbar stenosis/severe levoscoliosis Recurrent falls Ambulatory dysfunction --Lumbar CT:Severe levoscoliosis is present in the lumbar spine with only partially covered curvature, the probable Linda angle measures up to 51. Moderate to severe degenerative changes are seen in the spine. Contributed by facet arthropathy, variable neural foraminal narrowing more marked at the level of lower lumbar spine. No significant interval change. -- Cervical CT:No acute fracture seen. Spondylotic changes in the cervical spine, unchanged from prior CT examination. -- Head CT no acute changes Fall precautions PT OT May need rehab placement Chronic respiratory failure with hypoxia Multifactorial:Restrictive lung disease/granulomatous lung disease, EZEQUIEL Chronic oxygen dependency on 3.5 L at rest and 4.5 with activity Chronic pulmonary nodule Chronic elevated right diaphragm --CXR:Right para cardiac patchy opacity obscuring right heart border suggesting of infectious/inflammatory process ( no significant changes in comparison with the previous study). Right mid/lower lung zone small pulmonary nodule (same finding in comparison with the previous study). Elevation of right diaphragmatic coupla with mild obliteration of right hemidiaphragm suggesting mild right pleural effusion( no significant changes). Increase cardiac size with retrocardiac opacity ( same finding) H/O CPAP intolerance Past tobacco use as per record -- Check procalcitonin Continue supplemental oxygen Continue nebs Coronary artery disease S/P stent Hyperlipidemia Continue Plavix, statin, propranolol Hypothyroidism Mildly elevated TSH, normal free T4 Continue levothyroxine Needs repeat thyroid function test as outpatient Prediabetes HbA1c 6.0 Other chronic conditions Anxiety/mood disorder, at baseline Essential tremors on propranolol BPH, patient on maximal medical therapy for voiding symptoms as per outpatient recent urology note from last week. Continue home medications DVT Px: Heparin SQ Code Status Full code Admission and Anticipated Discharge Date Admission Date: December 26, 2023 Subjective Patient is seen and examined at bedside Reports chronic back pain No other complaints today Denies any chest pain, dyspnea, nausea, vomiting, abdominal pain Review of Systems Review of Systems: All systems reviewed & are unremarkable except as noted in Subjective Physical Exam Physical Exam: Physical Exam: Vitals signs as noted above General Appearance:Moderately built and nourished, no apparent distress Head: normocephalic, Atraumatic Eyes: normal inspection, EOMI Neck: supple, Trachea midline Respiratory/Chest: Decreased breath sounds, CTA, No accessory muscle use Cardiovascular: S1, S2, No murmur Abdomen/GI:Soft, Non tender, Bowel sounds present Extremities/Musculoskeletal:normal inspection, no edema Neurologic/Psych:AAOX3, grossly no focal neurological deficits, chronic tremor Skin: normal color, warm Results & Data Results & Data Vital Signs (Past 12 Hours) Vital Signs Temp Pulse Pulse Pulse Resp BP BP 12/26/23 10:58 60 14 12/26/23 08:01 12/26/23 07:37 94 H 17 12/26/23 07:04 36.5 C 61 18 128/78 12/26/23 03:45 12/26/23 03:45 12/26/23 03:45 36.5 C 72 16 106/69 12/26/23 03:31 71 20 133/82 12/26/23 02:30 66 20 130/81 Pulse Ox O2 Del Method O2 Flow Rate 12/26/23 10:58 95 Nasal Cannula 3 12/26/23 08:01 Nasal Cannula 12/26/23 07:37 91 Nasal Cannula 3.5 12/26/23 07:04 96 Nasal Cannula 3 12/26/23 03:45 Nasal Cannula 3.5 12/26/23 03:45 Nasal Cannula 3.5 12/26/23 03:45 94 Nasal Cannula 3.5 12/26/23 03:31 95 Nasal Cannula 3.5 12/26/23 02:30 96 Nasal Cannula 3.5 Laboratory Results Short CBC 12/26/23 Range/Units 00:02 WBC 11.89 H (4.8-10.8) K/ul Hgb 16.6 (14.0-18.0) g/dl Hct 49.1 (42.0-52.0) % Plt Count 151 (130-400) K/uL BMP 12/26/23 00:02 Sodium 140 Potassium 4.0 Chloride 96 L Carbon Dioxide 37 H BUN 13 Creatinine 0.92 Glucose 114 H Calcium 10.0 Cardiac Enzymes 12/26/23 Range/Units 00:02 Total Creatine Kinase 74 (30-223) U/L Liver Function 12/26/23 Range/Units 00:02 Total Bilirubin 0.7 (0.2-1.0) mg/dl AST 19 (13-39) U/L ALT 17 (7-52) U/L Alkaline Phosphatase 88 (34-104) U/L Albumin 4.3 (3.4-5.0) gm/dl Urine 12/26/23 Range/Units 06:05 Urine Color Yellow Urine Appearance Clear (Clear) Urine pH 7.5 (4.5-7.5) Ur Specific [place] 1.014 (1.000-1.030) Urine Protein Negative (Negative) Urine Glucose (UA) Negative (Negative)
--- NOTE | 2023-12-26 14:29 | Electrocardiogram Report ---
Test Reason : Blood Pressure : */* mmHG Vent. Rate : 64 BPM Atrial Rate : 64 BPM P-R Int : 166 ms QRS Dur : 84 ms QT Int : 454 ms P-R-T Axes : 52 71 86 degrees QTcB Int : 468 ms Poor data quality, interpretation may be adversely affected Normal sinus rhythm Nonspecific T wave abnormality Abnormal ECG When compared with ECG of 28-Oct-2023 19:28, QT has lengthened Confirmed by Bull Maciel ([id number]) on 12/26/2023 2:29:06 PM Referred By: Confirmed By: Bull Maciel
[2023-12-26] MEDS: HEPARIN SOD 5,000 UNIT/0.5 ML VIAL SQ SCH (22:00)
[2023-12-26] MEDS: TAMSULOSIN HCL 0.4 MG CAP PO SCH (22:00)
[2023-12-27 06:13] LABS: Hematocrit (blood only) 42.7 % (42.0-52.0); Hemoglobin 14.3 g/dl (14.0-18.0); Mean Corpuscular Hemoglobin 31.4 pg (25.0-34.0); Mean Corpuscular Hgb Conc 33.5 g/dL (32.0-36.0); Mean Corpuscular Volume 93.8 fL (80.0-100.0); Mean Platelet Volume 9.4 fL (9.4-12.4); Platelet Count 136 K/uL (130-400); RDW Coefficient of Variation 13.8 % (11.5-14.5); RDW Standard Deviation 46.5 fL (36.4-46.3); Red Blood Count 4.55 M/uL (4.70-6.10); White Blood Count 9.15 K/ul (4.8-10.8)
[2023-12-27 06:23] LABS: BUN Creatinine Ratio 18.9 (10-20); Calcium 9.3 mg/dl (8.6-10.3); Creatinine Clr Calc Pharmacy 59.7 ml/min; Potassium 4.3 mmol/L (3.5-5.1)
--- NOTE | 2023-12-27 14:59 | Hospitalist Progress Note ---
Date of Service December 27, 2023 Assessment & Plan (1) Back pain: Plan: Acute on chronic back pain due to degenerative disc disease with some lumbar stenosis/severe levoscoliosis Recurrent falls Ambulatory dysfunction --Lumbar CT:Severe levoscoliosis is present in the lumbar spine with only partially covered curvature, the probable Linda angle measures up to 51. Moderate to severe degenerative changes are seen in the spine. Contributed by facet arthropathy, variable neural foraminal narrowing more marked at the level of lower lumbar spine. No significant interval change. -- Cervical CT:No acute fracture seen. Spondylotic changes in the cervical spine, unchanged from prior CT examination. -- Head CT no acute changes Fall precautions Continue PT OT PT recommends rehab placement Plan to discharge to rehab facility as able Chronic respiratory failure with hypoxia Multifactorial:Restrictive lung disease/granulomatous lung disease, EZEQUIEL Chronic oxygen dependency on 3.5 L at rest and 4.5 with activity Chronic pulmonary nodule Chronic elevated right diaphragm --CXR:Right para cardiac patchy opacity obscuring right heart border suggesting of infectious/inflammatory process ( no significant changes in comparison with the previous study). Right mid/lower lung zone small pulmonary nodule (same finding in comparison with the previous study). Elevation of right diaphragmatic coupla with mild obliteration of right hemidiaphragm suggesting mild right pleural effusion( no significant changes). Increase cardiac size with retrocardiac opacity ( same finding) H/O CPAP intolerance Past tobacco use as per record -- Check procalcitonin Continue supplemental oxygen Continue nebs Coronary artery disease S/P stent Hyperlipidemia Continue Plavix, statin, propranolol Hypothyroidism Mildly elevated TSH, normal free T4 Continue levothyroxine Needs repeat thyroid function test as outpatient Prediabetes HbA1c 6.0 Other chronic conditions Anxiety/mood disorder, at baseline Essential tremors on propranolol BPH, patient on maximal medical therapy for voiding symptoms as per outpatient recent urology note from last week. Continue home medications DVT Px: Heparin SQ Code Status Full code Admission and Anticipated Discharge Date Admission Date: December 26, 2023 Subjective Patient is seen and examined at bedside Subjectively feels a lot better today Sitting in chair during my encounter Chronic back pain is controlled No new complaints today Denies any chest pain, dyspnea, nausea, vomiting, abdominal pain Had PT evaluation earlier today Review of Systems Review of Systems: All systems reviewed & are unremarkable except as noted in Subjective Physical Exam Physical Exam: Physical Exam: Vitals signs as noted above General Appearance:Moderately built and nourished, no apparent distress Head: normocephalic, Atraumatic Eyes: normal inspection, EOMI Neck: supple, Trachea midline Respiratory/Chest: Decreased breath sounds, CTA, No accessory muscle use Cardiovascular: S1, S2, No murmur Abdomen/GI:Soft, Non tender, Bowel sounds present Extremities/Musculoskeletal:normal inspection, no edema Neurologic/Psych:AAOX3, grossly no focal neurological deficits, chronic tremor Skin: normal color, warm Results & Data Results & Data Vital Signs (Past 12 Hours) Vital Signs Temp Pulse Resp BP Pulse Ox O2 Del Method O2 Flow Rate 12/27/23 11:29 65 17 95 Nasal Cannula 3.5 12/27/23 09:14 Nasal Cannula 3.5 12/27/23 08:23 68 96 Nasal Cannula 3.5 12/27/23 07:12 36.8 C 56 L 18 111/65 94 Nasal Cannula 3 12/27/23 07:06 56 L 17 94 Nasal Cannula 3.5 Laboratory Results Short CBC 12/27/23 Range/Units 05:43 WBC 9.15 (4.8-10.8) K/ul Hgb 14.3 (14.0-18.0) g/dl Hct 42.7 (42.0-52.0) % Plt Count 136 (130-400) K/uL BMP 12/27/23 05:43 Sodium 138 Potassium 4.3 Chloride 99 Carbon Dioxide 35 H BUN 17 Creatinine 0.90 Glucose 114 H Calcium 9.3
[2023-12-28 06:20] LABS: Hematocrit (blood only) 44.1 % (42.0-52.0); Hemoglobin 14.6 g/dl (14.0-18.0); Mean Corpuscular Hemoglobin 31.1 pg (25.0-34.0); Mean Corpuscular Hgb Conc 33.1 g/dL (32.0-36.0); Mean Platelet Volume 9.2 fL (9.4-12.4); Platelet Count 144 K/uL (130-400); RDW Coefficient of Variation 13.7 % (11.5-14.5); RDW Standard Deviation 46.5 fL (36.4-46.3); Red Blood Count 4.69 M/uL (4.70-6.10); White Blood Count 10.47 K/ul (4.8-10.8)
[2023-12-28 06:37] LABS: BUN Creatinine Ratio 17.2 (10-20); Calcium 9.6 mg/dl (8.6-10.3); Creatinine Clr Calc Pharmacy 57.8 ml/min; Potassium 4.2 mmol/L (3.5-5.1)
--- NOTE | 2023-12-28 16:22 | Hospitalist Progress Note ---
Date of Service December 28, 2023 Assessment & Plan (1) Back pain: Plan: Acute on chronic back pain due to degenerative disc disease with some lumbar stenosis/severe levoscoliosis Recurrent falls Ambulatory dysfunction --Lumbar CT:Severe levoscoliosis is present in the lumbar spine with only partially covered curvature, the probable Linda angle measures up to 51. Moderate to severe degenerative changes are seen in the spine. Contributed by facet arthropathy, variable neural foraminal narrowing more marked at the level of lower lumbar spine. No significant interval change. -- Cervical CT:No acute fracture seen. Spondylotic changes in the cervical spine, unchanged from prior CT examination. -- Head CT no acute changes Fall precautions Continue PT OT-PT recommends rehab placement Patient refused to go to rehab and wants to go home Advised to ambulate in the room and in the hallway with a walker and likely discharge tomorrow home Chronic respiratory failure with hypoxia Multifactorial:Restrictive lung disease/granulomatous lung disease, EZEQUIEL Chronic oxygen dependency on 3.5 L at rest and 4.5 with activity Chronic pulmonary nodule Chronic elevated right diaphragm --CXR:Right para cardiac patchy opacity obscuring right heart border suggesting of infectious/inflammatory process ( no significant changes in comparison with the previous study). Right mid/lower lung zone small pulmonary nodule (same finding in comparison with the previous study). Elevation of right diaphragmatic coupla with mild obliteration of right hemidiaphragm suggesting mild right pleural effusion( no significant changes). Increase cardiac size with retrocardiac opacity ( same finding) H/O CPAP intolerance Past tobacco use as per record -- Check procalcitonin-Normal Continue supplemental oxygen Continue nebs Coronary artery disease S/P stent Hyperlipidemia Continue Plavix, statin, propranolol Hypothyroidism Mildly elevated TSH, normal free T4 Continue levothyroxine Needs repeat thyroid function test as outpatient Prediabetes HbA1c 6.0 Other chronic conditions Chronic HFpEF-Continue Furosemide Anxiety/mood disorder, at baseline Essential tremors on propranolol BPH, patient on maximal medical therapy for voiding symptoms as per outpatient recent urology note from last week. Continue home medications DVT Px: Heparin SQ Code Status Full code Admission and Anticipated Discharge Date Admission Date: December 27, 2023 Subjective 12/28/2023 The patient was seen and examined in medical floor He complains to have back pain seems to be stable and also left shoulder pain with movement Has been ambulating in the room without any difficulties Has had physical therapy but wants to go home with home PT Review of Systems Review of Systems: All systems reviewed and are unremarkable except as noted below Physical Exam Physical Exam: Sitting on a chair without any acute distress Constitutional: well developed, well nourished, + ill appearing and average body habitus Eyes: PERRL, conjunctivae normal, anicteric sclerae ENMT: external ear and nose normal, oropharynx normal Neck: trachea midline, no thyromegaly Respiratory: no respiratory distress Auscultation: lungs clear to auscultation bilaterally Cardiovascular: Rate/Rhythm: regular rate and regular rhythm; not tachycardic Heart Sounds: normal S1 and normal S2; no murmur Extremities: no edema Gastrointestinal (Abdomen): Inspection/Auscultation: normal bowel sounds; abdomen not distended Percussion/Palpation: abdomen soft; abdomen nontender Musculoskeletal: No acute arthritis involving any of the joint Neurologic: normal touch/pain/proprioception and moves all extremities; no focal motor deficits Lymphatic: no cervical or axillary lymphadenopathy Results & Data Results & Data Vital Signs (Past 12 Hours) Vital Signs Temp Pulse Resp BP Pulse Ox O2 Del Method O2 Flow Rate 12/28/23 15:37 61 18 97 Nasal Cannula 3 12/28/23 14:50 64 18 136/80 92 Nasal Cannula 3.0 12/28/23 12:46 4 12/28/23 08:22 Nasal Cannula 3.5 12/28/23 07:11 78 16 95 Nasal Cannula 3.5 12/28/23 06:58 36.3 C L 60 16 128/75 94 Nasal Cannula 3.0 Laboratory Results Short CBC 12/28/23 Range/Units 05:59 WBC 10.47 (4.8-10.8) K/ul Hgb 14.6 (14.0-18.0) g/dl Hct 44.1 (42.0-52.0) % Plt Count 144 (130-400) K/uL BMP 12/28/23 05:59 Sodium 138 Potassium 4.2 Chloride 98 Carbon Dioxide 33 H BUN 16 Creatinine 0.93 Glucose 116 H Calcium 9.6 Medications Administered Current Inpatient Medications Acetaminophen (Acetaminophen 325 Mg Tab) 650 mg PO QID PRN PRN Reason: pain/fever Stop: 01/25/24 02:44 Albuterol (Albuterol Hfa 8 Gm Inhaler (Combivent Respimat P&T Subs)) 1 puffs INH QIDR [facility]; Protocol Stop: 01/25/24 06:59 Last Admin: 12/28/23 15:36 Dose: 1 puffs Citalopram Hydrobromide (Citalopram 20 Mg Tab) 20 mg PO [facility] Stop: 01/25/24 08:59 Last Admin: 12/28/23 08:04 Dose: 20 mg Clopidogrel Bisulfate (Clopidogrel Bisulfate 75 Mg Tab) 75 mg PO [facility] Stop: 01/25/24 08:59 Last Admin: 12/28/23 08:04 Dose: 75 mg Duloxetine HCl (Duloxetine Hcl 60 Mg Cap) 60 mg PO [facility] Stop: 01/25/24 08:59 Last Admin: 12/28/23 08:04 Dose: 60 mg Furosemide (Furosemide 20 Mg Tab) 20 mg PO [facility] Stop: 01/25/24 08:59 Last Admin: 12/28/23 08:03 Dose: 20 mg Heparin Sodium (Porcine) (Heparin Sod 5,000 Unit/0.5 Ml Vial) 5,000 units SQ Q12 [facility] Stop: 01/25/24 20:59 Last Admin: 12/28/23 08:04 Dose: 5,000 units Promethazine HCl (Phenergan) 6.25 mg in 50.25 mls @ 201 mls/hr IV Q6H PRN PRN Reason: Nausea And Vomiting Stop: 01/25/24 02:44 Ipratropium [place] (Ipratropium Hfa Inhaler (Combivent Respimat P&T Subs)) 1 puffs INH QIDR [facility]; Protocol Stop: 01/25/24 06:59 Last Admin: 12/28/23 15:36 Dose: 1 puffs Levothyroxine Sodium (Levothyroxine Sodium 112 Mcg Tablet) [facility] Stop: 01/25/24 06:29 Last Admin: 12/28/23 05:41 Dose: 112 mcg Montelukast Sodium (Montelukast Sodium 10 Mg Tablet) [facility] Stop: 01/25/24 08:59 Last Admin: 12/28/23 08:03 Dose: 10 mg Oxycodone HCl (Oxycodone Hcl Ir 5 Mg Tab (Immediate Release)) 5 - 10 mg PO QID PRN PRN Reason: Pain Stop: 01/09/24 02:44 Last Admin: 12/27/23 21:28 Dose: 10 mg Pantoprazole Sodium (Pantoprazole 40 Mg Tab) 40 mg PO DAILYBB [facility] Stop: 01/25/24 06:29 Last Admin: 12/28/23 05:41 Dose: 40 mg Propranolol HCl (Propranolol Hcl 20 Mg Tab) 20 mg PO TID [facility] Stop: 01/25/24 08:59 Last Admin: 12/28/23 14:09 Dose: 20 mg Rosuvastatin Calcium (Rosuvastatin Calcium 5 Mg Tab) 5 mg PO QAM [facility] Stop: 01/25/24 08:59 Last Admin: 12/28/23 08:04 Dose: 5 mg Tamsulosin HCl (Tamsulosin Hcl 0.4 Mg Cap) 0.4 mg PO HS [facility] Stop: 01/25/24 20:59 Last Admin: 12/27/23 21:23 Dose: 0.4 mg
--- NOTE | 2023-12-29 16:05 | Hospitalist Progress Note ---
Date of Service December 29, 2023 Assessment & Plan (1) Back pain: Plan: Acute on chronic back pain due to degenerative disc disease with some lumbar stenosis/severe levoscoliosis Recurrent falls Ambulatory dysfunction --Lumbar CT:Severe levoscoliosis is present in the lumbar spine with only partially covered curvature, the probable Linda angle measures up to 51. Moderate to severe degenerative changes are seen in the spine. Contributed by facet arthropathy, variable neural foraminal narrowing more marked at the level of lower lumbar spine. No significant interval change. -- Cervical CT:No acute fracture seen. Spondylotic changes in the cervical spine, unchanged from prior CT examination. -- Head CT no acute changes Fall precautions Continue PT OT-PT recommends rehab placement Patient refused to go to rehab and wants to go home Advised to ambulate in the room and in the hallway with a walker and likely discharge tomorrow home likely discharge tomorrow Chronic respiratory failure with hypoxia Multifactorial:Restrictive lung disease/granulomatous lung disease, EZEQUIEL Chronic oxygen dependency on 3.5 L at rest and 4.5 with activity Chronic pulmonary nodule Chronic elevated right diaphragm --CXR:Right para cardiac patchy opacity obscuring right heart border suggesting of infectious/inflammatory process ( no significant changes in comparison with the previous study). Right mid/lower lung zone small pulmonary nodule (same finding in comparison with the previous study). Elevation of right diaphragmatic coupla with mild obliteration of right hemidiaphragm suggesting mild right pleural effusion( no significant changes). Increase cardiac size with retrocardiac opacity ( same finding) H/O CPAP intolerance Past tobacco use as per record -- Check procalcitonin-Normal Continue supplemental oxygen Continue nebs Will give adose of IV Lasix today Coronary artery disease S/P stent Hyperlipidemia Continue Plavix, statin, propranolol Hypothyroidism Mildly elevated TSH, normal free T4 Continue levothyroxine Needs repeat thyroid function test as outpatient Prediabetes HbA1c 6.0 Other chronic conditions Chronic HFpEF-Continue Furosemide Anxiety/mood disorder, at baseline Essential tremors on propranolol BPH, patient on maximal medical therapy for voiding symptoms as per outpatient recent urology note from last week. Continue home medications DVT Px: Heparin SQ Code Status Full code Admission and Anticipated Discharge Date Admission Date: December 27, 2023 Subjective 12/28/2023 The patient was seen and examined in medical floor He complains to have back pain seems to be stable and also left shoulder pain with movement Has been ambulating in the room without any difficulties Has had physical therapy but wants to go home with home PT 12/29/2023 The patient was seen and examined in medical floor He has been complaining of some shortness of breath since this morning Feels that he is not yet ready to be discharged His back pain is reasonably controlled Refused to go to rehab Review of Systems Review of Systems: All systems reviewed and are unremarkable except as noted below Physical Exam Physical Exam: Sitting on a chair without any acute distress Constitutional: well developed, well nourished, + ill appearing and average body habitus Eyes: PERRL, conjunctivae normal, anicteric sclerae ENMT: external ear and nose normal, oropharynx normal Neck: trachea midline, no thyromegaly Respiratory: no respiratory distress Auscultation: lungs clear to auscultation bilaterally Cardiovascular: Rate/Rhythm: regular rate and regular rhythm; not tachycardic Heart Sounds: normal S1 and normal S2; no murmur Extremities: no edema Gastrointestinal (Abdomen): Inspection/Auscultation: normal bowel sounds; abdomen not distended Percussion/Palpation: abdomen soft; abdomen nontender Neurologic: normal touch/pain/proprioception and moves all extremities; no focal motor deficits Lymphatic: no cervical or axillary lymphadenopathy Results & Data Results & Data Vital Signs (Past 12 Hours) Vital Signs Temp Pulse Pulse Resp BP Pulse Ox O2 Del Method 12/29/23 15:21 68 16 93 Nasal Cannula 12/29/23 14:45 36.6 C 66 18 131/76 96 Room Air 12/29/23 11:06 83 16 93 Nasal Cannula 12/29/23 07:54 36.3 C L 59 L 18 123/78 91 Nasal Cannula 12/29/23 06:55 86 16 95 Nasal Cannula O2 Flow Rate 12/29/23 15:21 3 12/29/23 14:45 12/29/23 11:06 3.5 12/29/23 07:54 3.5 12/29/23 06:55 3 Medications Administered Current Inpatient Medications Acetaminophen (Acetaminophen 325 Mg Tab) 650 mg PO QID PRN PRN Reason: pain/fever Stop: 01/25/24 02:44 Albuterol (Albuterol Hfa 8 Gm Inhaler (Combivent Respimat P&T Subs)) 1 puffs INH QIDR [facility]; Protocol Stop: 01/25/24 06:59 Last Admin: 12/29/23 15:21 Dose: 1 puffs Citalopram Hydrobromide (Citalopram 20 Mg Tab) 20 mg PO [facility] Stop: 01/25/24 08:59 Last Admin: 12/29/23 08:24 Dose: 20 mg Clopidogrel Bisulfate (Clopidogrel Bisulfate 75 Mg Tab) 75 mg PO [facility] Stop: 01/25/24 08:59 Last Admin: 12/29/23 08:24 Dose: 75 mg Duloxetine HCl (Duloxetine Hcl 60 Mg Cap) 60 mg PO [facility] Stop: 01/25/24 08:59 Last Admin: 12/29/23 08:24 Dose: 60 mg Furosemide (Furosemide 20 Mg Tab) 20 mg PO [facility] Stop: 01/25/24 08:59 Last Admin: 12/29/23 08:24 Dose: 20 mg Heparin Sodium (Porcine) (Heparin Sod 5,000 Unit/0.5 Ml Vial) 5,000 units SQ Q12 [facility] Stop: 01/25/24 20:59 Last Admin: 12/29/23 08:20 Dose: Not Given Promethazine HCl (Phenergan) 6.25 mg in 50.25 mls @ 201 mls/hr IV Q6H PRN PRN Reason: Nausea And Vomiting Stop: 01/25/24 02:44 Ipratropium [place] (Ipratropium Hfa Inhaler (Combivent Respimat P&T Subs)) [facility]; Protocol Stop: 01/25/24 06:59 Last Admin: 12/29/23 15:21 Dose: 1 puffs Levothyroxine Sodium (Levothyroxine Sodium 112 Mcg Tablet) [facility] Stop: 01/25/24 06:29 Last Admin: 12/29/23 05:59 Dose: 112 mcg Montelukast Sodium (Montelukast Sodium 10 Mg Tablet) 10 mg PO [facility] Stop: 01/25/24 08:59 Last Admin: 12/29/23 08:24 Dose: 10 mg Oxycodone HCl (Oxycodone Hcl Ir 5 Mg Tab (Immediate Release)) 5 - 10 mg PO QID PRN PRN Reason: Pain Stop: 01/09/24 02:44 Last Admin: 12/27/23 21:28 Dose: 10 mg Pantoprazole Sodium (Pantoprazole 40 Mg Tab) 40 mg PO DAILYBB [facility] Stop: 01/25/24 06:29 Last Admin: 12/29/23 05:59 Dose: 40 mg Propranolol HCl (Propranolol Hcl 20 Mg Tab) 20 mg PO TID [facility] Stop: 01/25/24 08:59 Last Admin: 12/29/23 15:37 Dose: 20 mg Rosuvastatin Calcium (Rosuvastatin Calcium 5 Mg Tab) 5 mg PO QAM [facility] Stop: 01/25/24 08:59 Last Admin: 12/29/23 08:24 Dose: 5 mg Tamsulosin HCl (Tamsulosin Hcl 0.4 Mg Cap) 0.4 mg PO HS [facility] Stop: 01/25/24 20:59 Last Admin: 12/28/23 21:01 Dose: 0.4 mg Done during okay I think David I was just reviewed and he had to take care of and I will be going next Tuesday for this. All results fall and refusing to go to and speaks very slow yeah so last I did talk with him okay yeah okay see you
[2023-12-29] MEDS: FUROSEMIDE INJ 20 MG/2 ML VIAL IV ONE (16:55)
[2023-12-30 06:21] LABS: BUN Creatinine Ratio 25.6 (10-20); Calcium 9.8 mg/dl (8.6-10.3); Creatinine Clr Calc Pharmacy 62.5 ml/min; Potassium 3.9 mmol/L (3.5-5.1)
[2023-12-30 07:14] VITALS: BP 121/83; TEMP 97.7
[2023-12-30 07:21] VITALS: RESP 18
[2023-12-30 10:14] VITALS: PULSE 67; O2SAT 98
--- NOTE | 2023-12-30 11:55 | Hospitalist Progress Note ---
Date of Service December 30, 2023 Assessment & Plan (1) Back pain: Plan: Acute on chronic back pain due to degenerative disc disease with some lumbar stenosis/severe levoscoliosis Recurrent falls Ambulatory dysfunction --Lumbar CT:Severe levoscoliosis is present in the lumbar spine with only partially covered curvature, the probable Linda angle measures up to 51. Moderate to severe degenerative changes are seen in the spine. Contributed by facet arthropathy, variable neural foraminal narrowing more marked at the level of lower lumbar spine. No significant interval change. -- Cervical CT:No acute fracture seen. Spondylotic changes in the cervical spine, unchanged from prior CT examination. -- Head CT no acute changes Fall precautions Continue PT OT-PT recommends rehab placement Patient refused to go to rehab and wants to go home Advised to ambulate in the room and in the hallway with a walker and likely discharge tomorrow home Remains medically stable and is willing to go home today Chronic respiratory failure with hypoxia Multifactorial:Restrictive lung disease/granulomatous lung disease, EZEQUIEL Chronic oxygen dependency on 3.5 L at rest and 4.5 with activity Chronic pulmonary nodule Chronic elevated right diaphragm --CXR:Right para cardiac patchy opacity obscuring right heart border suggesting of infectious/inflammatory process ( no significant changes in comparison with the previous study). Right mid/lower lung zone small pulmonary nodule (same finding in comparison with the previous study). Elevation of right diaphragmatic coupla with mild obliteration of right hemidiaphragm suggesting mild right pleural effusion( no significant changes). Increase cardiac size with retrocardiac opacity ( same finding) H/O CPAP intolerance Past tobacco use as per record -- Check procalcitonin-Normal Continue supplemental oxygen Continue nebs Will give adose of IV Lasix today Feeling a little better following the dose of Lasix Coronary artery disease S/P stent Hyperlipidemia Continue Plavix, statin, propranolol Hypothyroidism Mildly elevated TSH, normal free T4 Continue levothyroxine Needs repeat thyroid function test as outpatient Prediabetes HbA1c 6.0 Other chronic conditions Chronic HFpEF-Continue Furosemide Anxiety/mood disorder, at baseline Essential tremors on propranolol BPH, patient on maximal medical therapy for voiding symptoms as per outpatient recent urology note from last week. Continue home medications DVT Px: Heparin SQ Code Status Full code Tried to call the daughter x 2 without any reply Admission and Anticipated Discharge Date Admission Date: December 27, 2023 Subjective 12/28/2023 The patient was seen and examined in medical floor He complains to have back pain seems to be stable and also left shoulder pain with movement Has been ambulating in the room without any difficulties Has had physical therapy but wants to go home with home PT 12/29/2023 The patient was seen and examined in medical floor He has been complaining of some shortness of breath since this morning Feels that he is not yet ready to be discharged His back pain is reasonably controlled Refused to go to rehab 12/30/2023 The patient was seen and examined in medical floor He has been feeling much better today Minimal back pain and no shortness of breath at rest He still does not want to go to rehab Review of Systems Review of Systems: All systems reviewed and are unremarkable except as noted below Physical Exam Physical Exam: Sitting on a chair without any acute distress Constitutional: well developed, well nourished, + ill appearing and average body habitus Eyes: PERRL, conjunctivae normal, anicteric sclerae ENMT: external ear and nose normal, oropharynx normal Neck: trachea midline, no thyromegaly Respiratory: no respiratory distress Auscultation: lungs clear to auscultation bilaterally Cardiovascular: Rate/Rhythm: regular rate and regular rhythm; not tachycardic Heart Sounds: normal S1 and normal S2; no murmur Extremities: no edema Gastrointestinal (Abdomen): Inspection/Auscultation: normal bowel sounds; abdomen not distended Percussion/Palpation: abdomen soft; abdomen nontender Musculoskeletal: chronic back pain without radiation Neurologic: normal touch/pain/proprioception and moves all extremities; no focal motor deficits Lymphatic: no cervical or axillary lymphadenopathy Results & Data Results & Data Vital Signs (Past 12 Hours) Vital Signs Temp Pulse Resp BP Pulse Ox O2 Del Method O2 Flow Rate 12/30/23 10:11 67 18 98 Nasal Cannula 3 12/30/23 07:18 72 18 92 Nasal Cannula 3 12/30/23 07:12 36.5 C 71 15 121/83 92 Nasal Cannula 3.5 [place] [facility] [place]/30/23 05:45 Sodium 139 Potassium 3.9 Chloride 99 Carbon Dioxide 35 H BUN 22 Creatinine 0.86 Glucose 165 H Calcium 9.8 Medications Administered Current Inpatient Medications Acetaminophen (Acetaminophen 325 Mg Tab) 650 mg PO QID PRN PRN Reason: pain/fever Stop: 01/25/24 02:44 Albuterol (Albuterol Hfa 8 Gm Inhaler (Combivent Respimat P&T Subs)) 1 puffs [facility]; Protocol Stop: 01/25/24 06:59 Last Admin: 12/30/23 10:01 Dose: 1 puffs Citalopram Hydrobromide (Citalopram 20 Mg Tab) 20 mg PO [facility] Stop: 01/25/24 08:59 Last Admin: 12/30/23 09:58 Dose: 20 mg Clopidogrel Bisulfate (Clopidogrel Bisulfate 75 Mg Tab) 75 mg PO [facility] Stop: 01/25/24 08:59 Last Admin: 12/30/23 09:58 Dose: 75 mg Duloxetine HCl (Duloxetine Hcl 60 Mg Cap) 60 mg PO [facility] Stop: 01/25/24 08:59 Last Admin: 12/30/23 09:58 Dose: 60 mg Furosemide (Furosemide 20 Mg Tab) 20 mg PO [facility] Stop: 01/25/24 08:59 Last Admin: 12/30/23 09:58 Dose: 20 mg Heparin Sodium (Porcine) (Heparin Sod 5,000 Unit/0.5 Ml Vial) 5,000 units SQ Q12 [facility] Stop: 01/25/24 20:59 Last Admin: 12/30/23 10:34 Dose: Not Given Promethazine HCl (Phenergan) 6.25 mg in 50.25 mls @ 201 mls/hr IV Q6H PRN PRN Reason: Nausea And Vomiting Stop: 01/25/24 02:44 Ipratropium Opal (Ipratropium Hfa Inhaler (Combivent Respimat P&T Subs)) 1 puffs [facility]; Protocol Stop: 01/25/24 06:59 Last Admin: 12/30/23 10:00 Dose: 1 puffs Levothyroxine Sodium (Levothyroxine Sodium 112 Mcg Tablet) [facility] Stop: 01/25/24 06:29 Last Admin: 12/30/23 05:24 Dose: 112 mcg Montelukast Sodium (Montelukast Sodium 10 Mg Tablet) [facility] [place] Stop: 01/25/24 08:59 Last Admin: 12/30/23 09:59 Dose: 10 mg Oxycodone HCl (Oxycodone Hcl Ir 5 Mg Tab (Immediate Release)) 5 - 10 mg PO QID PRN PRN Reason: Pain Stop: 01/09/24 02:44 Last Admin: 12/30/23 10:42 Dose: 5 mg Pantoprazole Sodium (Pantoprazole 40 Mg Tab) 40 mg PO DAILYBB [facility] Stop: 01/25/24 06:29 Last Admin: 12/30/23 05:24 Dose: 40 mg Propranolol HCl (Propranolol Hcl 20 Mg Tab) 20 mg PO TID [facility] Stop: 01/25/24 08:59 Last Admin: 12/30/23 09:59 Dose: 20 mg Rosuvastatin Calcium (Rosuvastatin Calcium 5 Mg Tab) 5 mg PO QAM [facility] Stop: 01/25/24 08:59 Last Admin: 12/30/23 09:59 Dose: 5 mg Tamsulosin HCl (Tamsulosin Hcl 0.4 Mg Cap) 0.4 mg PO HS [facility] Stop: 01/25/24 20:59 Last Admin: 12/29/23 20:04 Dose: 0.4 mg
--- NOTE | 2023-12-31 07:33 | Discharge Summary ---
Date of Service December 31, 2023 Admission HPI Per Admitting Provider History obtained from patient and records. 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 Patient discharged home with home health PT recommendations. Patient slipped out of lift chair and had trouble getting up. Denies head trauma, LOC. No chest pain. Usual SOB. Patient had trouble getting up. Worsening of chronic back pain without unusual leg weakness or incontinence symptoms. MEDICAL HISTORY: As above. SURGERIES: Hernia surgery, foot surgery, ESWL, tonsillectomy, cataract surgeries, urologic procedures FAMILY HISTORY: Lung cancer, DM PERSONAL SOCIAL HISTORY: Past tobacco use. 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 Admission Exam Per Admitting Provider Physical Exam: GENERAL: Slightly uncomfortable, pleasant, slightly hard of hearing, no respiratory distress SKIN: Pallor, warm HEENT: Alopecia, pale palpebral conjunctivae, no ptosis, dry buccal mucosa, nasal cannula in place NECK : Supple, no tenderness CHEST : Decreased breath sounds, no tenderness HEART : RRR, no obvious murmurs ABDOMEN: Some distention, nontender BACK : Mid to low back tenderness EXTREMITIES : Minimal LE swelling, no LE tenderness, no other conspicuous deformities noted NEUROLOGIC : Coherent, no facial asymmetry, rest tremors, gait and stance not assessed Principal Diagnosis Acute on chronic back pain, chronic respiratory failure with hypoxia dependent on oxygen, hypothyroidism Discharge Exam Sitting on a chair without any acute distress Constitutional well developed, well nourished, + ill appearing and average body habitus Eyes PERRL, conjunctivae normal, anicteric sclerae ENMT external ear and nose normal, oropharynx normal Neck trachea midline, no thyromegaly Respiratory no respiratory distress Auscultation: lungs clear to auscultation bilaterally Cardiovascular Rate/Rhythm: regular rate and regular rhythm; not tachycardic Heart Sounds: normal S1 and normal S2; no murmur Extremities: no edema Gastrointestinal (Abdomen) Inspection/Auscultation: normal bowel sounds; abdomen not distended Percussion/Palpation: abdomen soft; abdomen nontender Neurologic normal touch/pain/proprioception and moves all extremities; no focal motor deficits Lymphatic no cervical or axillary lymphadenopathy Discharge Data Allergies Allergy/AdvReac Type Severity Reaction Status Date / Time tramadol AdvReac Intermediate Hallucinati Verified 03/12/23 02:38 ng grapefruit AdvReac Unknown WAS TOLD Verified 03/12/23 02:38 NOT TO TAKE BECAUSE OF CHOLESTROL PILL. Consultations 12/26/23 02:02 ED Decision to Admit Stat Ordered Studies 12/26/23 00:40 CT cervical spine wo con Stat CT head/brain wo con Stat CT lumbar spine wo con Stat Hospital Course (1) Back pain: Acute on chronic back pain due to degenerative disc disease with some lumbar stenosis/severe levoscoliosis Recurrent falls Ambulatory dysfunction --Lumbar CT:Severe levoscoliosis is present in the lumbar spine with only partially covered curvature, the probable Linda angle measures up to 51. Moderate to severe degenerative changes are seen in the spine. Contributed by facet arthropathy, variable neural foraminal narrowing more marked at the level of lower lumbar spine. No significant interval change. -- Cervical CT:No acute fracture seen. Spondylotic changes in the cervical spine, unchanged from prior CT examination. -- Head CT no acute changes Fall precautions Continue PT OT-PT recommends rehab placement Patient refused to go to rehab and wants to go home Advised to ambulate in the room and in the hallway with a walker and likely discharge tomorrow home Remains medically stable and is willing to go home today Chronic respiratory failure with hypoxia Multifactorial:Restrictive lung disease/granulomatous lung disease, EZEQUIEL Chronic oxygen dependency on 3.5 L at rest and 4.5 with activity Chronic pulmonary nodule Chronic elevated right diaphragm --CXR:Right para cardiac patchy opacity obscuring right heart border suggesting of infectious/inflammatory process ( no significant changes in comparison with the previous study). Right mid/lower lung zone small pulmonary nodule (same finding in comparison with the previous study). Elevation of right diaphragmatic coupla with mild obliteration of right hemidiaphragm suggesting mild right pleural effusion( no significant changes). Increase cardiac size with retrocardiac opacity ( same finding) H/O CPAP intolerance Past tobacco use as per record -- Check procalcitonin-Normal Continue supplemental oxygen Continue nebs Will give adose of IV Lasix today Feeling a little better following the dose of Lasix Coronary artery disease S/P stent Hyperlipidemia Continue Plavix, statin, propranolol Hypothyroidism Mildly elevated TSH, normal free T4 Continue levothyroxine Needs repeat thyroid function test as outpatient Prediabetes HbA1c 6.0 Other chronic conditions Chronic HFpEF-Continue Furosemide Anxiety/mood disorder, at baseline Essential tremors on propranolol BPH, patient on maximal medical therapy for voiding symptoms as per outpatient recent urology note from last week. Continue home medications DVT Px: Heparin SQ Code Status Full code Tried to call the daughter x 2 without any reply Total Time Total Time Spent Total Time Spent (In Minutes): 40 minutes Discharge Plan Discharge Items Patient Disposition: Home - Home Health Services Reason For Visit: BACK PAIN Discharge Diagnosis: acute on chronic back pain, chronic respiratory failure with hypoxia dependent on oxygen, hypothyroidism Condition on Discharge: Fair Activity: Resume your previous activity Non-emergency contact: Primary Care Provider Call non-emergency contact if: you have any medication questions and your symptoms worsen Follow-up/Referrals: Jennifer Sarkar MD [Primary Care Provider] - (Date & Time 01/03/2024 10:20 AM Provider Jennifer Sarkar MD Department General Internal Medicine [facility] ) Diet: Heart Healthy Addtl Attending Provider Instructions: Please take extra precautions to avoid falls Take your medications as advised Keep using oxygen all the time as advised before Use Tylenol for back pain most of the time and Can use ibuprofen 400 mg after food occasionally Pending Studies at Discharge: No Stand-Alone Forms: [facility], Smoking Cessation Medications and DC Order Prescriptions: Continued acetaminophen [Tylenol Extra Strength] 500 mg Tablet 1,000 mg PO Q8H PRN (Reason: fever or pain) Qty: 90 0RF citalopram 40 mg Tablet 20 mg PO QAM Qty: 30 0RF clopidogrel [Plavix] 75 mg Tablet See Rx Instructions .ROUTE .COMPLEX Qty: 30 0RF Rx Instructions: never filled with pharmacy 07/03/23 pantoprazole 20 mg tablet,delayed release (DR/EC) 20 mg PO DAILYBB Qty: 30 0RF tamsulosin 0.4 mg capsule 0.4 mg PO HS Qty: 30 0RF nitroglycerin 0.4 mg Tablet, Sublingual 1 tab Sublingual UD PRN (Reason: Angina) Qty: 30 0RF Rx Instructions: never picked up NEEDED FOR CHEST PAIN : ONE TABLET UNDER THE TONGUE EVERY 5 MINUTES X THREE DOSES. montelukast [Singulair] 10 mg Tablet 10 mg PO QAM Qty: 30 0RF furosemide 20 mg tablet 20 mg PO QAM Qty: 30 0RF propranolol 20 mg Tablet 20 mg PO TID Qty: 90 0RF levothyroxine 112 mcg tablet 112 mcg PO DAILYBB Qty: 30 0RF rosuvastatin 5 mg tablet 5 mg PO QAM Qty: 30 0RF duloxetine 30 mg capsule,delayed release(DR/EC) 60 mg PO QAM Qty: 30 0RF ipratropium-albuterol 20-100 mcg/actuation Mist 1 puff INHALATION QID Qty: 4 0RF Rx Instructions: unable to verify with pharmacy 07/03/23 space evenly during waking hours Saline Nasal (aloe vera) Gel 1 applic intranasal PM PRN (Reason: Dry Nasal Passages) Rx Instructions: otc unable to verify Discharge Orders: Discharge Order (Routine); Ordered 12/30/23 Ordered By: Tony John/Other Patient Handouts: A1C Admission Data Admit Date/Time: 12/27/23 15:29 Attending Provider: Tony Giang Admit Provider: Barber Duenas Primary Care Provider: Jennifer Sarkar Other Providers: Mele Aguila; Barber Duenas; [facility] Other Interventions: Discharge Summary Assessment (RN) Last Done: 12/30/23 14:31
== END 2023-12-30 14:48 | disposition home health service (06) | DRG 552 ==
LOC: ED 23:31 → 3E 23:31 → SUATTDRO 12-26 02:44 → 3E 12-26 03:31 → SUATTDRO 12-27 15:29

== ENCOUNTER 2024-04-20 00:06 | Observation (INO) ==
[2024-04-20 01:24] LABS: Basophils # (auto) 0.06 K/uL (0.00-0.20); Basophils % (auto) 0.5 %; Eosinophils # (auto) 0.38 K/uL (0.00-0.50); Eosinophils % (auto) 3.1 %; Hematocrit (blood only) 46.3 % (42.0-52.0); Hemoglobin 15.6 g/dl (14.0-18.0); Immature Granulocytes # (auto) 0.18 K/uL (0.01-0.20); Immature Granulocytes % (auto) 1.5 %; Lymphocytes # (auto) 1.19 K/uL (1.20-3.40); Lymphocytes % (auto) 9.8 %; Mean Corpuscular Hemoglobin 31.5 pg (25.0-34.0); Mean Corpuscular Hgb Conc 33.7 g/dL (32.0-36.0); Mean Corpuscular Volume 93.5 fL (80.0-100.0); Mean Platelet Volume 9.7 fL (9.4-12.4); Monocytes # (auto) 1.15 K/uL (0.11-0.59); Monocytes % (auto) 9.5 %; Neutrophils % (auto) 75.6 %; Platelet Count 189 K/uL (130-400); RDW Coefficient of Variation 13.7 % (11.5-14.5); RDW Standard Deviation 46.6 fL (36.4-46.3); Red Blood Count 4.95 M/uL (4.70-6.10); White Blood Count 12.16 K/ul (4.8-10.8)
--- NOTE | 2024-04-20 01:33 | Emergency Department Note ---
Impression & Plan Weakness, Ambulatory dysfunction admit to the [facility] ED Provider Note NAME: BLANCA MAHONEY AGE: 83 SEX: Male INFORMANT: Patient ED PROVIDER(S): Analilia Ridley DO CHIEF COMPLAINT: weakness PLAN: Disposition: admit to the [facility] group MEDICAL DECISION MAKING: this is AN 83-year-old male patient with history of familial tremor who presents to the emergency department with generalized weakness. The patient states that he has good days and bad days and unfortunately today he sat on the toilet and was unable to get off of it. he contacted his neighbor who was able to help him but states that his rotator cuff on the left sometimes precludes him from being able to use the railing on a wall. The workup here in the emergency department which was essentially negative. Laboratory studies revealed no significant leukocytosis. H&H were stable. TSH was normal. Upper respiratory bio fire test was negative. Chest x-ray was normal. Urinalysis showed no signs of infection although patient did have hematuria. However, when we attempted to ambulate the patient with a walker, he had significant difficulty with going from sitting to standing and standing to sitting to the point that he felt very unsafe. He has no in-home services and relies heavily on a neighbor that is not always available. The case was discussed at length with the community affairs manager and [facility] for [facility] care and possible placement in rehab Care/management discussed with: community affairs [facility] Triage Nursing notes: reviewed and agree With them. 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 Differential Diagnosis: UTI, dehydration, hypoglycemia, sepsis, infection Diagnostics, independently interpreted by me: ECG: normal sinus rhythm at a rate of [address] segment elevation or signs of ischemia. There is no ectopy. Cardiac Monitoring: Normal sinus rhythm at a rate of 77 Imaging studies: portable chest x-ray: No acute pulmonary infiltrates or consolidation as per my independent interpretation HPI: 83 year old Male arrives for evaluation of weakness. The patient states that he has good days and bad days and unfortunately today he sat on the toilet and was unable to get off of it. he contacted his neighbor who was able to help him but states that his rotator cuff on the left sometimes precludes him from being able to use the railing on a wall. PAST MEDICAL HISTORY: See Below, PAST SURGICAL HISTORY: See Below, SOCIAL HISTORY: See Below, HOME MEDICATIONS: see list ALLERGIES: see list VITALS: See Below PHYSICAL EXAMINATION: HEENT: Head - normocephalic and atraumatic. Pupils are equal, round, and reactive to light. Extraocular eye muscles are intact, and sclera are anicteric. Nose - moist nasal mucosa without discharge. Mouth - moist buccal mucosa. Oropharynx is nonerythematous and there is no tonsillar exudate or edema noted. Neck: Supple; no Cervical lymphadenopathy or JVD Heart: Regular rate and rhythm. There is a normal S1 and S2 with no murmurs, clicks, or gallops appreciated. Lungs: diminished breath sounds in all lung benavides Abdomen: Soft, completely nontender, nondistended, with good bowel sounds. There are no palpable pulsatile masses or hepatosplenomegaly. There is no guarding, rigidity, or rebound noted. Extremities: No evidence of cyanosis, clubbing, or edema. There are easily palpable peripheral pulses. Skin: warm and dry with good turgor and no rashes. neuro: The patient is alert and oriented to date time and place. He is easily able to communicate but has significant tremor. Emergency Department course: The patient was evaluated in room A-12. A complete history and physical was performed. An order was placed for continuous cardiac monitoring. The patient was in a normal sinus rhythm at a rate of 77. A twelve-lead EKG was obtained as described above. Laboratory studies were drawn as above. Portable chest x-ray was performed. Upper respiratory bio fire testing was obtained. Urinalysis was obtained. We attempted to ambulate the patient in preparation for discharge but felt he was too unsafe and discussed the case with the ED case management who felt the patient may benefit from rehab. We discussed the case with the [facility] Hospitalist and they will evaluate for further inpatient care. Past Med/Surg History Problem List (Updated 04/20/24 @ 17:19 by Analilia Ridley DO) Ambulatory dysfunction (Acute) Weakness (Acute) Back pain Chronic respiratory failure (Acute) Dizziness (Acute) Fall (Acute) Kidney stones ONE PRESENT/NO PROBLEMS WITH Hematuria Ambulatory dysfunction (Acute) Chronic hypoxic respiratory failure, on home oxygen therapy (Acute) Fall (Acute) Dizziness (Acute) Leukocytosis (Acute) Ambulatory dysfunction (Acute) Generalized weakness (Acute) COPD (chronic obstructive pulmonary disease) (Acute) Physical deconditioning (Acute) Dependence on supplemental oxygen (Acute) Fall Elevated hemidiaphragm Pneumonia Scoliosis (Acute) Right heart failure Hypokalemia Acute and chronic respiratory failure Chronic obstructive pulmonary disease Depression Hyperlipidemia Hypertension Shortness of breath (Acute) Pulmonary edema (Acute) Acute exacerbation of CHF (congestive heart failure) (Acute) Encounter for pre-operative examination Spinal stenosis (Chronic) Encounter for pre-operative examination Acute respiratory failure (Acute) Shortness of breath Leukocytosis Aspiration into airway Medical History Bilateral shoulder pain Fall Restrictive lung disease Acute on chronic respiratory failure with hypoxemia Acute and chronic respiratory failure with hypercapnia Pulmonary embolism COVID-19 Choking REASON FOR UPCOMING PROCEDURE PER PT Ankle swelling PT PLANS TO DISCUSS WITH DR PT REPORTS DR HAD HIM STOP FLUID PILL AND NOT SURE WHY Infected dental caries Subperiosteal abscess of jaw Acute periodontal abscess Pain, dental Generalized muscle weakness Lower urinary tract symptoms (LUTS) Hypoxia DVT prophylaxis Chronic right-sided heart failure Fall HX, NOT RECENTLY Cervical spine fracture LAST SUMMER NO LIMITATIONS SOB (shortness of breath) on exertion with wheezing Scoliosis Chronic back pain GERD (gastroesophageal reflux disease) Hypothyroidism On anticoagulant therapy plavix daily 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 Myocardial Infarction 2009 Sleep apnea uses 4 L N/C MOSTLY ALL THE TIME On home oxygen therapy 3-4 L CONTINUOUS MOSTLY, AND PRN PER PT COPD (chronic obstructive pulmonary disease) Dyslipidemia HTN (hypertension) Hypothyroidism CAD (coronary artery disease) Surgical History Hx of oral surgery (07/05/21) Multiple Teeth Extractions for Facial Infection - Sin Chacko DMD NO CURRENT INFECTION PER PT (PAT CALL 08/18/21) History of testicular surgery "sac full of blood in testicle drained at 26 yrs old" History of heart artery stent x1 2010--[facility] History of open reduction and internal fixation (ORIF) procedure left foot fx/pinky toe fx--hardware in place History of lithotripsy Hx of vasectomy Hx of right inguinal hernia repair History of colonoscopy History of esophagogastroduodenoscopy (EGD) History of wisdom tooth extraction History of tonsillectomy History of bilateral cataract extraction History of cardiac cath 2009 @ [facility] with 1 stent--follows with Dr. Ramirez Stented coronary artery "bare metal stent to LAD 2008" Family History Sister Family history of reaction to anesthesia nausea/vomiting Mother Family history of diabetes mellitus Social History Smoking Status: Former smoker Tobacco Type: Pipe and Cigars Cigarettes Per Day: SMOKED PIPE/CIGAR AGE 21'S; Second Hand Exposure: No; Do You Dip or Chew Tobacco: No; Hx Alcohol Use: Yes Alcohol type: beer Hx Substance Use: No Preferred Language: Tajik Communication Tools: Other Visual Impairment: No Limitations Silverer Required: No marital status: Current Living Situation: Alone Current Living Situation Comment: DOG How many Children do You have: 1 Feels Safe at Home: Yes Assistive Devices: Cane and Walker Allergies Allergies Allergy/AdvReac Type Severity Reaction Status Date / Time tramadol AdvReac Intermediate Hallucinati Verified 03/12/23 02:38 ng grapefruit AdvReac Unknown WAS TOLD Verified 03/12/23 02:38 NOT TO TAKE BECAUSE OF CHOLESTROL PILL. Home Meds Home Medications Medication Instructions Recorded Confirmed allopurinol 100 mg tablet 200 mg PO 1XD 04/20/24 04/20/24 citalopram 20 mg tablet 20 mg PO 1XD 04/20/24 04/20/24 clopidogrel 75 mg tablet (Plavix) 75 mg PO 1XD 04/20/24 04/20/24 duloxetine 60 mg capsule,delayed 60 mg PO 1XD 04/20/24 04/20/24 release dutasteride 0.5 mg capsule 0.5 mg PO 1XD 04/20/24 04/20/24 furosemide 40 mg tablet 40 mg PO 2XD 04/20/24 04/20/24 solifenacin 5 mg tablet 5 mg PO 1XD 04/20/24 04/20/24 spironolactone 25 mg tablet See Rx Instructions .Route .COMPLEX 04/20/24 04/20/24 Previous Rx's Medication Instructions Recorded acetaminophen 500 mg tablet 1,000 mg (2 x 500 mg) PO Q8H PRN 07/13/23 (Tylenol Extra Strength) fever or pain #90 tabs levothyroxine 112 mcg tablet 112 mcg PO DAILYBB #30 tabs 07/13/23 montelukast 10 mg tablet 10 mg PO QAM #30 tabs 07/13/23 (Singulair) pantoprazole 20 mg tablet,delayed 20 mg PO DAILYBB #30 tabs 07/13/23 release propranolol 20 mg tablet 20 mg PO TID #90 tabs 07/13/23 rosuvastatin 5 mg tablet 5 mg PO QAM #30 tabs 07/13/23 tamsulosin 0.4 mg capsule 0.4 mg PO HS #30 caps 07/13/23 Results & Data (ED) Vital Signs Vital Signs - 24 hr 04/19/24 23:56 04/19/24 23:56 04/20/24 00:49 Temperature 37.4 C Temperature Source Oral Pulse Rate 75 75 Pulse Rate [Apical] Pulse Rhythm Regular Pulse Rhythm [Apical] Pulse Strength Normal Pulse Strength [Apical] Respiratory Rate 20 Respiratory Effort / Characteristics Non-Labored Spontaneous Respiratory Depth Normal Respiratory Pattern Regular Blood Pressure 124/76 Blood Pressure [Right Arm] Blood Pressure Mean 92 Blood Pressure Mean [Right Arm] Blood Pressure Position Lying Blood Pressure Position [Right Arm] Pulse Oximetry 94 88 L Oxygen Delivery Method Nasal Cannula Nasal Cannula Oxygen Flow Rate 6 3 Sepsis Recent Fever Within 48 Hours No Sepsis New/Unexplained Change in Mental Status No Sepsis Action Taken by Nursing No Action Required Oxygen Flow Rate - Titration 6 Pulse Oximetry Post Tiitration 94 04/20/24 01:01 04/20/24 02:00 04/20/24 04:00 Temperature Temperature Source Pulse Rate 77 Pulse Rate [Apical] 75 75 Pulse Rhythm Regular Pulse Rhythm [Apical] Regular Regular Pulse Strength Pulse Strength [Apical] Normal Normal Respiratory Rate 20 20 20 Respiratory Effort / Characteristics Non-Labored Spontaneous Non-Labored Spontaneous Respiratory Depth Normal Normal Respiratory Pattern Regular Regular Blood Pressure Blood Pressure [Right Arm] 129/84 115/71 Blood Pressure Mean Blood Pressure Mean [Right Arm] 99 85 Blood Pressure Position Blood Pressure Position [Right Arm] Lying Lying Pulse Oximetry 93 95 97 Oxygen Delivery Method Nasal Cannula Room Air Room Air Oxygen Flow Rate 6 Sepsis Recent Fever Within 48 Hours Sepsis New/Unexplained Change in Mental Status Sepsis Action Taken by Nursing Oxygen Flow Rate - Titration Pulse Oximetry Post Tiitration 04/20/24 06:00 Temperature Temperature Source Pulse Rate Pulse Rate [Apical] 74 Pulse Rhythm Pulse Rhythm [Apical] Regular Pulse Strength Pulse Strength [Apical] Normal Respiratory Rate 20 Respiratory Effort / Characteristics Non-Labored Spontaneous Respiratory Depth Normal Respiratory Pattern Regular Blood Pressure Blood Pressure [Right Arm] 117/77 Blood Pressure Mean Blood Pressure Mean [Right Arm] 90 Blood Pressure Position Blood Pressure Position [Right Arm] Lying Pulse Oximetry 94 Oxygen Delivery Method Nasal Cannula Oxygen Flow Rate 3 Sepsis Recent Fever Within 48 Hours Sepsis New/Unexplained Change in Mental Status Sepsis Action Taken by Nursing Oxygen Flow Rate - Titration Pulse Oximetry Post Tiitration Laboratory Data 04/20/24 00:20 04/20/24 00:20 Lab Results 04/20/24 04/20/24 04/20/24 Range/Units 00:11 00:20 03:09 WBC 12.16 H (4.8-10.8) K/ul RBC 4.95 (4.70-6.10) M/uL Hgb 15.6 (14.0-18.0) g/dl Hct 46.3 (42.0-52.0) % MCV 93.5 (80.0-100.0) fL MCH 31.5 (25.0-34.0) pg MCHC 33.7 (32.0-36.0) g/dL RDW Std Deviation 46.6 H (36.4-46.3) fL RDW Coeff of Mannie 13.7 (11.5-14.5) % Plt Count 189 (130-400) K/uL MPV 9.7 (9.4-12.4) fL Immature Gran % (Auto) 1.5 % Neut % (Auto) 75.6 % Lymph % (Auto) 9.8 % [place] % (Auto) 9.5 % Eos % (Auto) 3.1 % Baso % (Auto) 0.5 % Neut # (Auto) 9.20 H (1.40-6.50) K/uL Lymph # (Auto) 1.19 L (1.20-3.40) K/uL [place] # (Auto) 1.15 H (0.11-0.59) K/uL Eos # (Auto) 0.38 (0.00-0.50) K/uL Baso # (Auto) 0.06 (0.00-0.20) K/uL Immature Gran # (Auto) 0.18 (0.01-0.20) K/uL Sodium 138 (136-145) mmol/L Potassium 4.3 (3.5-5.1) mmol/L Chloride 93 L (98-107) mmol/L Carbon Dioxide 39 H (21-32) mmol/L Anion Gap 6 (3-11) BUN 12 (6-23) mg/dl Creatinine 1.07 (0.6-1.4) mg/dl Est Cr Clr Drug Dosing 51.5 ml/min eGFR 69.28 BUN/Creatinine Ratio 11.2 (10-20) Glucose 108 H (70-99(Fasting)) mg/dl Calcium 10.3 (8.6-10.3) mg/dl Total Bilirubin 0.9 (0.2-1.0) mg/dl AST 20 (13-39) U/L ALT 16 (7-52) U/L Alkaline Phosphatase 102 (34-104) U/L Total Protein 7.9 (6.0-8.3) gm/dl Albumin 4.4 (3.4-5.0) gm/dl Globulin 3.5 (2.5-4.0) gm/dl Albumin/Globulin Ratio 1.3 (0.9-2) TSH 1.788 (0.300-4.500) uIu/ml Urine Color Yellow Urine Appearance Clear (Clear) Urine pH 8.5 H (4.5-7.5) Ur Specific [place] 1.014 (1.000-1.030) Urine Protein Negative (Negative) Urine Glucose (UA) Negative (Negative) Urine Ketones Negative (Negative) Urine Blood 2+ H (Negative) Urine Nitrite Negative (Negative) Urine Bilirubin Negative (Negative) Urine Urobilinogen Negative (Negative) Ur Leukocyte Esterase Negative (Negative) Urine WBC (Auto) 0-5 (0-5) /hpf Urine RBC (Auto) >20 H (0-2) /hpf U Hyaline Cast (Auto) 0-2 (0-2) /lpf U Epithel Cells (Auto) 0-2 (0-2) /hpf Urine Bacteria (Auto) None Seen (None Seen) Adenovirus (PCR) Not Detected (NotDetected) B. pertussis DNA (PCR) Not Detected (NotDetected) B.parapertussis DNA PCR Not Detected (NotDetected) C. pneumoniae DNA (PCR) Not Detected (NotDetected) Coronavirus OC43 (PCR) Not Detected (NotDetected) Coronavirus HKU1 (PCR) Not Detected (NotDetected) Coronavirus 229E (PCR) Not Detected (NotDetected) SARS-CoV-2 (PCR) Not Detected (NotDetected) Coronavirus NL63 (PCR) Not Detected (NotDetected) Human Metapneumovir PCR Not Detected (NotDetected) Influenza Type A (PCR) Not Detected (NotDetected) Influenza Type B (PCR) Not Detected (NotDetected) M. pneumoniae (PCR) Not Detected (NotDetected) Parainfluenza 1 (PCR) Not Detected (NotDetected) Parainfluenza 2 (PCR) Not Detected (NotDetected) Parainfluenza 3 (PCR) Not Detected (NotDetected) Parainfluenza 4 (PCR) Not Detected (NotDetected) RSV (PCR) Not Detected (NotDetected) Entero/Rhino (PCR) Not Detected (NotDetected) Administered Medications Allopurinol (Allopurinol 100 Mg Tab) 200 mg PO DAILY [facility] Stop: 05/20/24 09:28 Last Admin: 04/20/24 10:49 Dose: 200 mg Documented By: MANUELA Citalopram Hydrobromide (Citalopram 20 Mg Tab) 20 mg PO DAILY [facility] Stop: 05/20/24 09:28 Last Admin: 04/20/24 10:49 Dose: 20 mg Documented By: MANUELA Clopidogrel Bisulfate (Clopidogrel Bisulfate 75 Mg Tab) 75 mg PO DAILY [facility] Stop: 05/20/24 09:28 Last Admin: 04/20/24 10:49 Dose: 75 mg Documented By: MANUELA Duloxetine HCl (Duloxetine Hcl 60 Mg Cap) 60 mg PO DAILY [facility] Stop: 05/20/24 09:28 Last Admin: 04/20/24 10:49 Dose: 60 mg Documented By: MANUELA Finasteride (Finasteride 5 Mg Tab) 5 mg PO DAILY [facility] Stop: 05/20/24 09:34 Last Admin: 04/20/24 10:44 Dose: 5 mg Documented By: MANUELA Furosemide (Furosemide 40 Mg Tab) 40 mg PO DAILY [facility] Stop: 05/20/24 09:28 Last Admin: 04/20/24 10:45 Dose: 40 mg Documented By: MANUELA Heparin Sodium (Porcine) (Heparin Sod 5,000 Unit/0.5 Ml Vial) 5,000 units SQ Q12H [facility] Stop: 05/20/24 09:44 Last Admin: 04/20/24 10:57 Dose: Not Given Documented By: MANUELA Montelukast Sodium (Montelukast Sodium 10 Mg Tablet) [facility] Stop: 05/20/24 09:28 Last Admin: 04/20/24 10:45 Dose: 10 mg Documented By: MANUELA Oxybutynin Chloride (Oxybutynin Chloride Xl 5 Mg Tabcr) 5 mg PO DAILY [facility] Stop: 05/20/24 10:59 Last Admin: 04/20/24 13:51 Dose: 5 mg Documented By: ALEXANDRE Propranolol HCl (Propranolol Hcl 20 Mg Tab) 20 mg PO TID [facility] Stop: 05/20/24 09:28 Last Admin: 04/20/24 13:51 Dose: 20 mg Documented By: Admin: 04/20/24 10:46 Dose: 20 mg Documented By: MANUELA Rosuvastatin Calcium (Rosuvastatin Calcium 5 Mg Tab) 5 mg PO [facility] Stop: 05/20/24 09:28 Last Admin: 04/20/24 10:45 Dose: 5 mg Documented By: MANUELA Spironolactone (Spironolactone 12.5 Mg Tab) 12.5 mg PO [id number] [facility] Stop: 05/20/24 09:28 Last Admin: 04/20/24 10:44 Dose: 12.5 mg Documented By: MANUELA Discharge Plan Visit Data Chief Complaint: Weakness Stated Complaint: WEAKNESS ED Provider: Analilia Ridley Discharge Problem: Weakness, Ambulatory dysfunction Patient Disposition: Admitted As Inpatient Discharge Instructions Interventions: ED Discharge Assessment Last Done: 04/20/24 09:30
[2024-04-20 01:38] LABS: Albumin Globulin Ratio 1.3 (0.9-2); Albumin Level 4.4 gm/dl (3.4-5.0); BUN Creatinine Ratio 11.2 (10-20); Bilirubin,Total 0.9 mg/dl (0.2-1.0); Calcium 10.3 mg/dl (8.6-10.3); Creatinine Clr Calc Pharmacy 51.5 ml/min; Globulin 3.5 gm/dl (2.5-4.0); Potassium 4.3 mmol/L (3.5-5.1); Total Protein 7.9 gm/dl (6.0-8.3)
[2024-04-20 01:53] LABS: Thyroid Stimulating Hormone 1.788 uIu/ml (0.300-4.500)
[2024-04-20 02:14] LABS: Adenovirus PCR Not Detected (NotDetected); Bordetella parapertussis PCR Not Detected (NotDetected); Bordetella pertussis PCR Not Detected (NotDetected); Chlamydia pneumoniae PCR Not Detected (NotDetected); Coronavirus 229E PCR Not Detected (NotDetected); Coronavirus CoV-2 (COVID19)PCR Not Detected (NotDetected); Coronavirus HKU1 PCR Not Detected (NotDetected); Coronavirus NL63 PCR Not Detected (NotDetected); Coronavirus OC43PCR Not Detected (NotDetected); Human Metapneumovirus PCR Not Detected (NotDetected); Influenza A PCR Not Detected (NotDetected); Influenza B PCR Not Detected (NotDetected); Mycoplasma pneumoniae PCR Not Detected (NotDetected); Parainfluenza Virus 1 PCR Not Detected (NotDetected); Parainfluenza Virus 2 PCR Not Detected (NotDetected); Parainfluenza Virus 3 PCR Not Detected (NotDetected); Parainfluenza Virus 4 PCR Not Detected (NotDetected); Respiratory Syncytial VirusPCR Not Detected (NotDetected); Rhinovirus/Enterovirus PCR Not Detected (NotDetected)
--- NOTE | 2024-04-20 02:37 | XRay Report ---
EXAM: XR chest 1V portable CLINICAL HISTORY: weakness TECHNIQUE: Radiograph of chest was acquired. 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 Elevated right hemidiaphram with blunting of right costophrenic angle. A small nodule in right lower zone. Bulky right hilar shadow. Mild cardiomegaly. Rest no lung infiltrates. No acute osseous abnormality. IMPRESSION: 1. No interval change compatred with previous study. Electronically signed by Jaime Humphrey 04-20-2024 02:36 AM
[2024-04-20 03:31] LABS: Appearance Urine Clear (Clear); Bacteria Urine Automated None Seen (None Seen); Bilirubin Urine Negative (Negative); Blood Urine 2+ (Negative); Cast Urine Automated 0-2 /lpf (0-2); Color Urine Yellow; Epithelial Cell Urine Auto 0-2 /hpf (0-2); Glucose Urine UA Negative (Negative); Ketones Urine Negative (Negative); Leukocyte Esterase Urine Negative (Negative); Nitrite Urine Negative (Negative); Protein Urine Negative (Negative); RBC Urine Automated >20 /hpf (0-2); Specific Gravity Urine 1.014 (1.000-1.030); Urobilinogen Urine Negative (Negative); WBC Urine Automated 0-5 /hpf (0-5); pH Urine 8.5 (4.5-7.5)
--- OUTSIDE RECORDS SUMMARY | 2024-04-20 04:01 | External Medical Summary | Summary of Care ---
Author Name Unknown Organization [facility] Address [address] [facility] [place] [address] Phone [phone] Care Team Providers Care Equipment Services Associate Name Role Phone Jennifer Sarkar MD Primary Care Provider [phone] Reason for Visit * Reason Onset Date Comments Abnormal Test Results 03/15/2024 Vit D Encounter Details Date Type Department Care Team (Late st Contact Info) Description 03/15/2024 Telephone Rheumatology [facility] [address] [place] [phone] [facility] [address] [facility] [address] Abnormal Test Results (Vit D) Allergies Active Allergy Reactions Criticality Noted Date Comments Food (See Comments) 03/21/2018 Other reaction(s): WAS TOLD NOT TO TAKE grapefruit Tramadol Other (Please comment) High 10/06/2020 Hallucinations documented as of this encounter (statuses as of 04/19/2024) Medications NITROGLYCERIN 0.4 MG SL SUBLIndications:Ol d myocardial infarct,S/P primary angioplasty with coronary stent,Obstructive sleep apnea (adult) (pediatric),HTN, goal to be determined 1every 5 min as needed with chest pain up to 3 doses in 15 minutes 25 Tab 11 012 Active Zoledronic Acid 5 MG/100ML Intravenous Solution Administer 5 mg intravenously once. Yearly administration Active Acetaminophen 500 MG Oral Tablet (Tylenol)Indicatio ns:Spinal stenosis of lumbar region without neurogenic claudication Take by mouth 2 Tablets in the morning AND 2 Tablets before bedtime. ,may take 3rd dose in between --12/21/2021. 1 Tablet 022 Active Additional Information Patient taking differently:1,000 mg [id number] PRN, ,may take 3rd dose in between --12/21/2021, Reported on 03/16/2024 Saline Nasal Gel (Nasogel)Indicatio ns:Chronic respiratory failure with hypoxia (HCC),Supplemental oxygen dependent,Nasal septal perforation,Nose dryness Administer into each nostril daily. For dryness(nasal septal perforation) 14 g 023 Active oxygen 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:Chr onic respiratory failure with hypoxia (HCC),Chronic right-sided heart failure (HCC),Granulomatou s lung disease (HCC) Use 3lpm continuous, increased to 4lpm with exertion. Changed 03/23/23 1 Each 024 Active Propranolol HCl 20 MG Oral Tablet (Inderal) Take 1 Tablet by mouth in the morning and 1 Tablet at noon and 1 Tablet before bedtime. 270 Tablet 3 024 Active Pantoprazole Sodium 20 MG Oral Tablet Delayed Release (Protonix)Indicati ons:History of gastroesophageal reflux (GERD),History of esophageal dilatation Take 1 Tablet by mouth in the morning. 30 minutes before the first meal of the day. Do not crush, split or chew the tablet. 90 Tablet 3 024 Active Citalopram Hydrobromide 20 MG Oral Tablet (CeleXA) TAKE 1 TABLET BY MOUTH EVERY DAY FOR DEPRESSION 90 Tablet 1 024 Active Montelukast Sodium 10 MG Oral Tablet (Singulair)Indicat ions:Chronic pansinusitis TAKE 1 TABLET BY MOUTH IN THE MORNING. ST 09/01/2022. 90 Tablet 3 024 Active DULoxetine HCl 60 MG Oral Capsule Delayed Release Particles (Cymbalta)Indicati ons:Chronic pain of both shoulders,Spinal stenosis of lumbar region without neurogenic claudication,Curre nt moderate episode of major depressive disorder without prior episode (HCC) TAKE 1 CAPSULE BY MOUTH IN THE MORNING. DO NOT CUT, CRUSH OR CHEW--INC FROM 06/23/2023. 90 Capsule 3 024 Active Rosuvastatin Calcium 5 MG Oral Tablet (Crestor)Indicatio ns:Dyslipidemia, goal LDL below 100,S/P primary angioplasty with coronary stent TAKE 1 TABLET BY MOUTH EVERY DAY 30 Tablet 5 024 Active Albuterol Sulfate HFA 108 (90 Base) MCG/ACT Inhalation Aerosol Solution Inhale 2 Puffs by mouth every 6 hours as needed for Wheezing or Dyspnea. 18 g 11 024 09/03 Active Combivent Respimat 20-100 MCG/ACT Inhalation Aerosol Solution (Ipratropium-Albut denise)Indications:G ranulomatous lung disease (HCC),Chronic respiratory failure with hypoxia (HCC) Inhale 1 Puff by mouth in the morning and 1 Puff at noon and 1 Puff in the evening and 1 Puff before bedtime. 12 g 2 024 08/04 Active Dutasteride 0.5 MG Oral Capsule (Avodart) Take 1 Capsule by mouth in the morning. 90 Capsule 3 024 Active Lidocaine 4 % External Patch (Aspercreme)Indica tions:Ambulatory dysfunction,Spinal stenosis of lumbar region without neurogenic claudication,Chron ic pain of both shoulders,Primary generalized (osteo)arthritis,C hronic low back pain without sciatica, unspecified back pain laterality Place 1 Patch over 12 hours topically on the skin daily. 30 Patch 5 024 Active Meclizine HCl 12.5 MG Oral Tablet (Antivert)Indicati ons:Dizziness,Marco A gn paroxysmal positional vertigo, unspecified laterality Take 1 Tablet by mouth daily as needed for Dizziness. 30 Tablet 024 Active Clopidogrel Bisulfate 75 MG Oral Tablet (pLAVix)Indication s:S/P primary angioplasty with coronary stent TAKE 1 TABLET DAILY 90 Tablet 1 025 Active Levothyroxine Sodium 112 MCG Oral Tablet (Levoxyl)Indicatio ns:Acquired hypothyroidism TAKE 1 TABLET BY MOUTH IN THE MORNING. (AT LEAST 30 MIN PRIOR TO BREAKFAST OR OTHER MEDS) 90 Tablet 1 024 03/22 Discontinued( Refill) Tamsulosin HCl 0.4 MG Oral Capsule (Flomax)Indication s:BPH with obstruction/lower urinary tract symptoms TAKE 1 CAPSULE BY MOUTH EVERYDAY AT BEDTIME 90 Capsule 1 024 04/12 Discontinued documented as of this encounter (statuses as of 04/19/2024) Active Problems Problem Noted Date Diagnosed Date Hypercalcemia 12/03/2022 Supplemental oxygen dependent 05/06/2022 Nasal septal perforation 05/06/2022 Chronic respiratory failure with hypoxia 022 Granulomatous lung disease 09/18/2021 Chronic rhinitis 06/10/2021 Schatzki's ring of distal esophagus 06/10/2021 Chronic right-sided heart failure 04/08/2020 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 11/21/2018 Abnormality of gait 11/21/2018 Displaced fracture of middle third of navicular bone of right wrist with delayed healing 10/04/2018 Current moderate episode of major depressive disorder without prior episode 11/21/2017 Senile osteoporosis 02/24/2017 Restrictive lung disease 09/06/2013 Overview (11/15/2021): 11/15/21--86% rest, 91% ambln>to st O2 2 lt at rest and with exertion per Nixon Elevated hemidiaphragm 09/06/2013 EDITH inhibitor intolerance 10/13/2010 Overview (10/13/2010): hypotension Dyslipidemia, goal LDL below 70 08/28/2009 HTN, GOAL BELOW 140/90 01/13/2009 Overview (01/13/2009): Modified per HTN protocol #16. Old myocardial infarct 10/21/2008 ANGIOPLASTY WITH CORONARY STENT TO LAD - bare Me kassidy 10/16/2008 Severe obstructive sleep apnea 01/15/2008 Overview (11/13/2012): 2007 PSG -- AHI 49.4/hr, hypoxemia Nocturnal hypoxemia 06/08/2007 Overview (11/13/2012): 3 LPM at bedtime [employer] SPINAL STENOSIS-LUMBAR 07/29/2005 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 Essential tremor documented as of this encounter (statuses as of 04/19/2024) Resolved Problems Problem Noted Date Diagnosed Date [...] 05/21/2005 07/21/2016 Abdominal pain, generalized 04/01/2005 01/19/2017 Overview (04/01/2005): 03/29: Office cystoscopy for :cystoscopy and stent [...] 04/01/2005 8 ADVANCE DIRECTIVE INFORMATION 07/27/2004 07/21/2016 Overview (07/27/2004): Patient does not have an advanced directive. Patient given information booklet. Bacterial pneumonia 07/31/2002 09/17/19 16 Depression with anxiety 11/18/200002/2017 HYPERTENSION NOS 01/13/2009 Overview (01/13/2009): Modified per HTN protocol #16. Screening for prostate cancer 01/03/2007 Asthma, allergic 04/22/2009 Osteoporosis 02/24/2017 documented as of this encounter (statuses as of 04/19/2024) Immunizations Name Administration Dates Next Due COVID-19 mRNA, LNP-s, No Pre serve, 2-Dose Series ([employer]) 05/14/2020,04/18/2020 Covid-19, Mrna, Lnp-s, Pf, B ivalent, 30 Mcg, IM, 12 yrs and above (Pfizer) 07/01/2023 H1N1 2009 Influenza, IM 04/22/2009 PPD 01/18/2023,,11/22/2022,11/13,08/20/2020,08/11/2020 Pneumococcal Conjugate Vacc, 13 Valent (Prevnar) 11/12/2014 Pneumococcal Polysaccharide PPV23 (Pneumovax) 07/20/2007,02/25/2002 RSV Vac., Recomb, Adjuvant, PF,0.5 Ml (Arexvy) 07/03/2023 Season Influenza, Quad, PF, Adjuvanted, 65+ Yrs, IM (FLUAD) 11/29/2019 Seasonal Influenza Vac., MDV , IM, 0.5 mL (Fluzone) 11/12/2014,11/26/2013,10/31/2012,01/20,11/10/2010,12/23/2009,12/18/2008 ,12/14/2007,01/03/2007,12/15/2005,11/22,02/26/2004,12/19/2002, 2 Seasonal Influenza Virus Vac cine, Unspecified Formulation 04/06/2022 Seasonal Influenza, High Dos e, Trivalent, PF, [...] Assigned at Male 09/12/2018 4:46 PM EDT Legal Sex Male 7:13 AM EST Gender Identity Male 09/12/2018 4:46 PM EDT Sexual Orientation Straight 09/12/2018 4: 46 PM EDT Occupation Industry Job Start Date Job End Date [employer] Not on file Not on file Not on file documented as of this encounter Miscellaneous Notes * Telephone Encounter - Niya Nunez LPN - 03/23/2024 9:05 AM EST PT did not apply for FA at this time, but I can reach out to them and offer and will mail application to them. Thank you, Danica Mccauley, PFC * Telephone Encounter - Niya Nunez LPN - 03/22/2024 2:44 PM EST Did pt apply for FA for prolia? Thank you! * Telephone Encounter - Meryl Santiago CRNP - 03/21/2024 4:05 PM EST Checking in to see if anyone able to reach this patients daughter? * Telephone Encounter - Meryl Santiago CRNP - 03/15/2024 8:00 AM EST Spoke with Octavia she stated to call Ciara. Please contact Pt Daughter Ciara to see if they got FA for Prolia. Pt did not follow up. * Telephone Encounter - Meryl Santiago CRNP - 03/15/2024 7:49 AM EST Spoke to the patient at this time. Discussed vitamin-D level is low at 25 in increase vitamin-D by 2,000 units daily. Patient reports she was unable to get Prolia due to the [id number] cost. Advised me to contact his daughter to discuss Prolia further. documented in this encounter Plan of Treatment Upcoming Encounters Date Type Department Care Team (Late st Contact Info) Description 05/14/2024 12:00 PM EDT Office Visit Pulmonary Medicine, [facility] [address] [facility] [place] [address] Bashir Harding MD [address] [facility] [place] [address] 06/07/2024 2:00 PM EDT Office Visit Dermatology, [address] [place] [phone] Gypsy Mujica, [place] [address] [place] [address] [place] [address] 06/19/2024 10:30 AM EDT Office Visit Orthopaedics [facility] [address] [place] [phone] Ely Cabrales MD [address] [place] [phone] 07/11/2024 3:00 PM EDT Office Visit General Internal Medicine [facility] [address] [facility] [address] [place] [address] Jennifer Sarkar MD [address] [facility] [place] [address] Scheduled Procedures Name Priority Associated Diagnoses Date/Ti me CYSTOURETHROSCOPY, WITH INSE RTION OF PERMANENT ADJUSTABLE TRANSPROSTATI IMPLANT; SINGLE IMPLANT Calculus of kidney BPH with obstruction/lower urinary tract symptoms COLONOSCOPY FLEXIBLE PROXIMA L DIAGNOSTIC Recall History of colon polyps Health Maintenance Due Date Last Done Comments Adult Wellness Visit 11/29/2017 11/29/2016 Colonoscopy 06/03/2022 06/03/2017, 02/01/2007 Depression Monitoring 09/09/2022 09/09/2021 COVID-19 Vaccine ( season) 2023 07/01/2023, 05/14/2020, 04/18/2020 Albumin/Creatinine Ratio 09/09/2024 09/09/2021, 09/22 TSH 03/14/2025 03/14/2024, 11/22, 10/25/2023, Additional history exists GFR 04/18/2025 04/18/2024, 02/22, 02/13/2024, Additional history exists DXA Scan 08/29/2025 08/30/2023, 07/22, 05/24/2017, Additional history exists DTap/Tdap Vaccines (2 - Td or Tdap) 07/19/2028 07/19/2018, 12/14/2007 Pneumococcal Vaccine: 50+ Years Completed 11/12/2014, 07/20/2007, 02/25/2002 RETIRED - COLONOSCOPY-EVERY 5 YRS AGES 18-100 Discontinued 06/03/2017, 02/01/2007 Zoster Vaccines Completed 01/28/2020, 09/17/2019 Influenza Vaccine (FLU shot) Completed 10/25/2023, 11/22/2022, 04/06/2022, Additional history exists VITAMIN D LEVEL ONCE IN A LIFETIME-USE SMARTSET# [id number] Completed 03/14/2024, 10/20/2023, 08/17/2023, Additional history exists HPV (Gardasil) Vaccine Aged Out No lo nger eligible based on patient's age to complete this topic Hepatitis B Vaccine Aged Out No longe r eligible based on patient's age to complete this topic MENINGOCOCCAL (MENACTRA/MENVEO) Aged Out No longer eligible based on patient's age to complete this topic Meningitis B Vaccine (Bexsero/Trumemba) Aged Out No longer eligible based on patient's age to complete this topic documented as of this encounter Medical Devices Implanted Type Area X Ray Technologist Device Identifier Shelf Expiration Date Model / Serial / Lot Lens Intraoc 23.0 - [id number] - [id number] Implanted:Qty: 1 on 12/21/2016 by Raj Bernard MD at OR [facility] Left: Eye [employer] 06/20/2021 [id number] / [id number] / Lens Intraoc 22.0 - [id number] - [id number] Implanted:Qty: 1 on 01/06/2017 by Raj Bernard MD at OR [facility] Right: Eye [employer] 08/20/2021 [id number] / [id number] / [id number] documented as of this encounter Advance Directives [...] Power of Attor bj? No Care Teams Equipment Services Associate Relationship Specialty Start Date End Date Jennifer Sarkar MD [address] [place] [address] PCP - General Internal Medicine 10/06/20 documented as of this encounter
--- OUTSIDE RECORDS SUMMARY | 2024-04-20 04:02 | External Medical Summary | Summary of Care ---
Author Name Unknown Organization [facility] Address [address] [facility] [place] [address] Phone [phone] Care Team Providers Care Spot Facer Name Role Phone Domenica Sarkar MD Primary Care Provider [phone] Encounter Details Date Type Department Care Team (Latest Contact Info) Description 04/18/2024 3:30 PM EST Procedure Only Urology, [facility] [address] [facility] [place] [phone] Man Gu MD [address] [place] [id number] Calculus of kidney*; Elevated prostate specific antigen (PSA); BPH with obstruction/lower urinary tract symptoms; Dysuria; Urge incontinence Allergies Active Allergy Reactions Criticality Noted Date Comments Food (See Comments) 03/21/2018 Other reaction(s): WAS TOLD NOT TO TAKE grapefruit Tramadol Other (Please comment) High 10/06/2020 Hallucinations documented as of this encounter (statuses as of 04/19/2024) Medications NITROGLYCERIN 0.4 MG SL SUBLIndications:Old myocardial infarct,S/P [...] Active Additional Information Patient taking differently:1,000 mg [id number] PRN, ,may take 3rd dose in between --12/21/2021, Reported on 03/16/2024 Saline Nasal Gel (Nasogel)Indication s:Chronic respiratory failure with hypoxia (HCC),Supplemental oxygen dependent,Nasal septal perforation,Nose dryness Administer into each nostril daily. 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 Changed 03/23/23 1 Each 04/10/19 24 Active Propranolol HCl 20 MG Oral Tablet (Inderal) Take 1 Tablet by mouth in the morning and 1 Tablet at noon and 1 Tablet before bedtime. 270 Tablet 3 07/23/19 24 Active Pantoprazole Sodium 20 MG Oral Tablet Delayed Release (Protonix)Indicatio ns:History of gastroesophageal reflux (GERD),History of esophageal dilatation Take 1 Tablet by mouth in the morning. 30 minutes before the first meal of the day. Do not crush, split or chew the tablet. 90 Tablet 3 09/27/19 24 Active Citalopram Hydrobromide 20 MG Oral Tablet (CeleXA) TAKE 1 TABLET BY MOUTH EVERY DAY FOR DEPRESSION 90 Tablet 1 09/27/19 24 Active Montelukast Sodium 10 MG Oral Tablet (Singulair)Indicati ons:Chronic pansinusitis TAKE 1 TABLET BY MOUTH IN [...] DAY 30 Tablet 5 11/08/19 24 Active Albuterol Sulfate HFA 108 (90 Base) MCG/ACT Inhalation Aerosol Solution Inhale 2 Puffs by mouth every 6 hours as needed for Wheezing or Dyspnea. 18 g 11 11/08/19 24 2024 Active Combivent Respimat 20-100 MCG/ACT Inhalation Aerosol Solution (Ipratropium-Albute rol)Indications:Gra nulomatous lung disease (HCC),Chronic respiratory failure with hypoxia (HCC) Inhale 1 Puff by mouth in the morning and 1 Puff at noon and 1 Puff in the evening and 1 Puff before bedtime. 12 g 2 11/08/19 24 2024 Active Dutasteride 0.5 MG Oral Capsule (Avodart) Take 1 Capsule by mouth in the morning. 90 Capsule 3 12/20/19 24 Active Lidocaine 4 % External Patch (Aspercreme)Indicat ions:Ambulatory dysfunction,Spinal stenosis of lumbar region without neurogenic claudication,Chroni c pain of both shoulders,Primary generalized (osteo)arthritis,Ch ronic low back pain without sciatica, unspecified back pain laterality Place 1 Patch over 12 hours topically on the skin daily. 30 Patch 5 01/10/20 24 Active Meclizine HCl 12.5 MG Oral Tablet (Antivert)Indicatio ns:Dizziness,Benign paroxysmal positional vertigo, unspecified laterality Take 1 Tablet by mouth daily as needed for Dizziness. 30 Tablet 01/11/20 24 Active Clopidogrel Bisulfate 75 MG Oral Tablet (pLAVix)Indications :S/P primary angioplasty with coronary stent TAKE 1 TABLET DAILY 90 Tablet 1 02/22/19 25 Active Allopurinol 100 MG Oral Tablet (Zyloprim) Take 2 Tablets by mouth in the morning. 60 Tablet 5 03/16/19 25 Active Spironolactone 25 MG Oral Tablet (Aldactone) Take 0.5 Tablets by mouth once a day on Tuesday, Tuesday, and Tuesday only. 13 Tablet 5 03/16/19 25 Active Levothyroxine Sodium 112 MCG Oral Tablet (Levoxyl)Indication s:Acquired hypothyroidism Take 1 Tablet by mouth daily first thing in the morning. (at least 30 min prior to breakfast or other meds) 90 Tablet 1 03/22/19 25 Active Tamsulosin HCl 0.4 MG Oral Capsule (Flomax)Indications :BPH with obstruction/lower urinary tract symptoms TAKE 1 CAPSULE BY MOUTH EVERYDAY AT BEDTIME 90 Capsule 1 04/12/19 25 Active Furosemide 40 MG Oral Tablet (Lasix)Indications: Coronary artery disease involving suquamish coronary artery of suquamish heart without angina pectoris,Chronic right-sided heart failure (HCC),Bilateral leg edema,Encounter for monitoring diuretic therapy Take 1 Tablet by mouth 2 times a day. 180 Tablet 3 04/11/19 25 Active Solifenacin Succinate 5 MG Oral Tablet (VESIcare) Take 1 Tablet by mouth in the morning. 30 Tablet 6 04/18/19 25 Active Hospital, Clinic, or Other Facility Administered Medication Ordered Dose Route Frequency Start Date End Date Status Sulfamethoxazole-Trimethopr im DS (Bactrim DS) 800-160 MG 1 TabletIndications:Elevated prostate specific antigen (PSA),BPH with obstruction/lower urinary tract symptoms 1 Tablet OR ONCE 04/18/2024 04/19/2024 Active documented as of this encounter (statuses as of 04/19/2024) Active Problems Problem Noted Date Diagnosed Date Calculus of kidney 04/18/2024 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 Hypercalcemia 12/03/2022 Supplemental oxygen dependent 05/06/2022 Nasal septal perforation 05/06/2022 Chronic respiratory failure with hypoxia 022 Granulomatous lung disease 09/18/2021 Chronic rhinitis 06/10/2021 Schatzki's ring of distal esophagus 06/10/2021 Chronic right-sided heart failure 04/08/2020 Coronary artery disease invo lving suquamish coronary artery of suquamish heart without angina pectoris 11/21/2018 Abnormality of [...] (02/03/2006): copd and restrictive lung disease CXR 2005: [...] and draped in usual sterile manner. 14 [place] flexible cystoscope inserted into urethra and guided [...] mRNA, LNP-s, No Pre serve, 2-Dose Series (Clipboard) 05/14/2020,04/18/2020 Covid-19, Mrna, Lnp-s, Pf, B ivalent, 30 Mcg, IM, 12 yrs and above (Clipboard) 07/01/2023 H1N1 2009 Influenza, IM 04/22/2009 PPD 01/18/2023, 3,11/22/2022,11/13,08/20/2020,08/11/2020 Pneumococcal Conjugate Vacc, 13 Valent (Prevnar) 11/12/2014 Pneumococcal Polysaccharide PPV23 (Pneumovax) 07/20/2007 RSV Vac., Recomb, Adjuvant, PF,0.5 Ml (Arexvy) 07/03/2023 Season Influenza, Quad, PF, Adjuvanted, 65+ Yrs, IM (FLUAD) 11/29/2019 Seasonal Influenza Vac., MDV , IM, 0.5 mL (Fluzone) 11/12/2014,11/26/2013,10/31/2012,01/20,11/10/2010,12/23/2009,12/18/2008 ,12/14/2007,01/03/2007,12/15/2005 Seasonal Influenza Virus Vac cine, Unspecified Formulation [...] Industry Job Start Date Job End Date [employer] Not on file Not on file Not on file documented as of this encounter Progress Notes * Man Gu MD - 04/18/2024 3:30 PM EST [id number] PCP: [address] [place], [place] [id number] Fabian Starks is a 83 year old male, who presents for cystoscopy for evaluation of his refractory voiding symptoms. Patient's past notes reviewed. PSA value from November of 2023 is appreciated, slightly improved from previous. BPH: Patient is being seen for BPH today. He has had the following symptoms: hesitancy, dysuria, slow stream, intermittency, and nocturia. Severity is moderate. He has tried tamsulosin, started by PMD Jul 2023. He has previously had cysto done 2005 & 2024. Problem has been present for years. Problem is getting worse. CT scan June of 2023 demonstrates BPH and 15 mm left renal stone. Started dutasteride Nov 2023 without significant improvement. Cysto Mar 2024 shows BPH and LUNA. Using 1-3 pull ups per day. Urolithiasis: [...] Results Component Value Date/Time PSA - [facility] 6.94 (H) 12/20/2023 10:49 AM PSA - [facility] 8.51 (H) 08/17/2023 08:38 [...] For dryness(nasal septal perforation) 14 g 0 oxygen IN GAS Use 3lpm continuous, increased to 4lpm with exertion. Changed 03/23/23 1 Each 0 Propranolol HCl 20 MG Oral Tablet (Inderal) Take 1 Tablet by mouth in the morning and 1 Tablet at noon and 1 Tablet before bedtime. 270 Tablet 3 Pantoprazole Sodium 20 MG Oral Tablet Delayed Release (Protonix) Take 1 Tablet by mouth in the morning. 30 minutes before the first meal of the day. Do not crush, split or chew the tablet. 90 Tablet 3 Citalopram Hydrobromide 20 MG Oral Tablet (CeleXA) [...] 1 Puff before bedtime. 12 g 2 Dutasteride 0.5 MG Oral Capsule (Avodart) Take 1 Capsule by mouth in the morning. 90 Capsule 3 Lidocaine 4 % External Patch (Aspercreme) Place 1 Patch over 12 hours topically on the skin daily. 30 Patch 5 Meclizine HCl 12.5 MG Oral Tablet (Antivert) Take 1 Tablet by mouth daily as needed for Dizziness. 30 Tablet 0 Clopidogrel Bisulfate 75 MG Oral Tablet (pLAVix) TAKE 1 TABLET DAILY 90 Tablet 1 Allopurinol 100 MG Oral Tablet (Zyloprim) Take 2 Tablets by mouth in the morning. 60 Tablet 5 Spironolactone 25 MG Oral Tablet (Aldactone) Take 0.5 Tablets by mouth once a day on Tuesday, Tuesday, and Tuesday only. 13 Tablet 5 Levothyroxine Sodium 112 MCG Oral Tablet (Levoxyl) Take 1 Tablet by mouth daily first thing in the morning. (at least 30 min prior to breakfast or other meds) 90 Tablet 1 Tamsulosin HCl 0.4 MG Oral Capsule (Flomax) TAKE 1 CAPSULE BY MOUTH EVERYDAY AT BEDTIME 90 Capsule 1 Furosemide 40 MG Oral Tablet (Lasix) Take 1 Tablet by mouth 2 times a day. 180 Tablet 3 No current facility-administered medications for this visit. Review of patient's allergies indicates: Allergen Reactions Tramadol Other (Please comment) Hallucinations Food (See Comments) Other reaction(s): WAS TOLD NOT TO TAKE grapefruit Social History: Social History Tobacco Use Smoking status: Former Types: Pipe, Cigars Quit date: 1961 Years since quittin.1 Smokeless tobacco: Never Tobacco comments: Smoked a occasional pipe or cigar socially when was younger. Substance Use Topics Alcohol use: Yes Comment: rarely Vaping/E-Cigarette Use Vaping/E-Cigarette Use Never User Vaping/E-Cigarette Substances Vaping/E-Cigarette Devices Past Surgical History: Procedure Laterality Date ABDOMEN (KUB) 1 VIEW 03/30/2005 CATHETERIZE LEFT HEART THRU SKIN 10/09/2008 LEFT HEART CATH, PERCUTANEOUS performed by ANSHU FOFANA at [facility] COLONOSCOPY W/ LESION REMOVAL, SNARE 02/01/2007 repeat in 5-10 yrs COLONOSCOPY, DIAGNOSTIC (RECTUM) 06/03/2017 adenomatous polyp, repeat 5 yrs/[facility] CYSTOSCOPY 03/30/2005 stent removal EGD, FLEXIBLE, DIAGNOSTIC 11/24/2012 UPPER GI ENDOSCOPY DIAGNOSTIC performed by Nakia Benton DO at [facility] EGD, FLEXIBLE, DIAGNOSTIC 07/15/2015 becca Perez /[facility] EGD, FLEXIBLE, DIAGNOSTIC 03/21/2018 erosive gastropathy, tortous esophagus, Schatzki ring/[facility] EGD, FLEXIBLE, DIAGNOSTIC 08/21/2021 sm hiatal hernia / [facility] FRAGMENT KIDNEY STONE BY SHOCK WAVE 03/26/2005 ESWL (Extracorporeal Shock Wave Lithotripsy) INFORMATION bilateral hernia repair REMOVAL OF TONSILS, UNDER AGE 12 REMOVE CATARACT, INSERT LENS PROSTH Left 12/21/2016 left EXTRACAPSULAR CATARACT REMOVAL WITH INTRAOCULAR LENS performed by Raj Bernard MD at OR [facility] REMOVE CATARACT, INSERT LENS PROSTH Right 01/06/2017 right EXTRACAPSULAR CATARACT REMOVAL WITH INTRAOCULAR LENS performed by Raj Bernard MD at OR [facility] Past Medical History: Diagnosis Date Acquired hypothyroidism ANGIOPLASTY WITH CORONARY STENT TO LAD - bare Metal 10/16/2008 Calculus of ureter 04/01/2005 Chronic respiratory failure with hypoxia (HCC) 11/14/2021 Chronic right-sided heart failure (HCC) 04/08/2020 Coronary artery disease involving suquamish coronary artery of suquamish heart without angina pectoris 11/21/2018 Dyslipidemia, goal [...] 06/08/2007 3 LPM at bedtime [facility] [employer]IVE SLEEP APNEA - refuses CPAP 01/15/2008 [...] with delayed healing Coronary artery disease involving suquamish coronary artery of suquamish heart without angina pectoris Abnormality of gait Chronic right-sided heart failure (HCC) Chronic rhinitis Schatzki's ring of distal esophagus Granulomatous lung disease (HCC) Chronic respiratory failure with hypoxia (HCC) Supplemental oxygen dependent Nasal septal perforation Hypercalcemia Pulmonary: (+) dyspnea Male : see HPI Physical Exam Nursing note reviewed. Constitutional: General: He is not in acute distress. Appearance: He is obese. He is ill-appearing and toxic-appearing. Comments: Using walker Pulmonary: Effort: Respiratory distress (NC O2) present. Abdominal: General: Abdomen is protuberant. Neurological: Motor: Weakness present. Gait: Gait abnormal. Cystoscopy Procedure Note: Patient was properly identified and appropriate consent was confirmed. Risks and benefits of the procedure were reviewed and the patient was prepped and draped in the standard fashion for the procedure. A well lubricated 16 [place]an flexible cystoscope was introduced through the meatus into the urethra. Urethra demonstrated no abnormalities. Prostatic urethra demonstrated moderate lateral lobe prostatic obstruction and minimal bladder neck elevation or median lobe element . Bladder neck was visualized and bladder was entered. Sterile saline irrigation was used to distend the bladder which was noted to have no tumors, stones or mucosal abnormalities with grade 3 trabeculation with cellules. Sherman dder was completely inspected including retroflexion of the scope. Ureteral orifices were noted to be in the normal anatomic position bilaterally. After this was completed the cystoscope was removed.Patient tolerated the procedure well without complications or difficulties. Classification Counselor was present for entire procedure. Perioperative Bactrim was provided. Impression/Plan: 83-year-old male with bladder outlet obstruction and BPH on cystoscopy. Findings reviewed with the patient. His main difficulty is his severe COPD. I suspect patient wouldbe best served with a GreenLight TURP, but it is unclear that he would tolerate the anesthesia. UroLift may be an option but might not provide the same degree of symptomatic relief. Patient is unclear what he wishes to do. Rx for low dose solifenacin 5 mg provided for irritative voiding symptoms inthe meanwhile. Man Gu MD 9:00 AM 04/18/2024 documented in this encounter Nursing Notes * Lorena David LPN - 04/18/2024 3:38 PM EST CYSTO / stones, BPH C/o-burning with urination, hesitation, incomplete emptying, slow stream PSA Results: Lab Results Component Value Date/Time PSA - [facility] 6.94 (H) 12/20/2023 10:49 AM PSA - [facility] 8.51 (H) 08/17/2023 08:38 AM PSA - [facility] 0.83 07/27/2004 11:41 AM PSA - [facility] 1.01 12/19/2002 02:44 PM PSA - [facility] 0.97 11/02/2001 03:44 PM PSA SCREENING 1.34 10/13/2010 10:07 AM PSA SCREENING 1.39 08/28/2009 12:05 PM PSA SCREENING 1.14 01/15/2008 11:26 AM Patient's skin was prepped with hibiclens, and 2% lidocaine jelly was inserted into urethra for cystoscopy. Patient tolerated well. Consent signed documented in this encounter Plan of Treatment Upcoming Encounters Date Type Department Care Team (Late st Contact Info) Description 05/14/2024 12:00 PM EDT Office Visit Pulmonary Medicine, [facility] [address] [place] [address] Bashir Harding MD [address] [facility] [place] [id number] 06/07/2024 2:00 PM EDT [facility] [address] [facility] [place] [phone] Gypsy Mujica PA-C [address] [place] [address] [place] [address] 06/19/2024 10:30 AM EDT Office Visit Orthopaedics [facility] [address] [place] [phone] Ely Cabrales MD [address] [facility] [place] [phone] 07/11/2024 3:00 PM EDT Office Visit General Internal Medicine [facility] [address] [place] [address] Domenica Sarkar MD [address] [place] [address] Scheduled Orders Name Type Priority Associated Diagnoses Orde r Schedule CYSTOSCOPY Procedures Routine Calculus of kidney Elevated prostate specific antigen (PSA) BPH with obstruction/lower urinary tract symptoms Ordered: 04/18/2024 Scheduled Procedures Name Priority Associated Diagnoses Date/Ti [...] 04/18/2020 Albumin/Creatinine Ratio 09/09/2024 09/09/2021, 09/22 GFR 03/14/2025 04/18/2024, 02/22, 02/13/2024, Additional history exists TSH 03/14/2025 03/14/2024, 11/22, 10/25/2023, Additional history exists DXA Scan 08/29/2025 08/30/2023, [...] D LEVEL ONCE IN A LIFETIME-USE SMARTSET# [id number] Completed 03/14/2024, 10/20/2023, 08/17/2023, Additional history exists [...] encounter Medical Devices Implanted Type Area Manager Financial Device Identifier Shelf Expiration Date Model / Serial / Lot Lens Intraoc 23.0 - [id number] - [id number] Implanted:Qty: 1 on 12/21/2016 by Raj Bernard MD at OR [facility] Left: Eye [employer] 06/20/2021 [id number] / [id number] / Lens Intraoc 22.0 - [id number] - [id number] Implanted:Qty: 1 on 01/06/2017 by Raj Bernard MD at OR [facility] Right: Eye [employer] 08/20/2021 [id number] / [id number] / [id number] documented as of this encounter Visit Diagnoses Diagnosis Calculus of kidney- Primary Elevated prostate specific antigen (PSA) BPH with obstruction/lower urinary tract symptoms Hypertrophy of prostate with urinary obstruction and other lower urinary tract symptoms (LUTS) Dysuria Urge incontinence documented in this encounter Advance [...] Power of Attor bj? No Care Teams Spot Facer Relationship Specialty Start Date End Date Domenica Sarkar MD [address] [place] [address] PCP - General Internal Medicine 10/06/20 documented as of this encounter
--- OUTSIDE RECORDS SUMMARY | 2024-04-20 04:02 | External Medical Summary | Summary of Care ---
Author Name Unknown Organization [facility] Address [address] [facility] [place] [address] Phone [phone] Care Team Providers Care Training Instructor Name Role Phone Jennifer Sarkar MD Primary Care Provider [phone] Reason for Visit * Reason Onset Date Comments Medication Refill 04/11/2024 Encounter Details Date Type Department Care Team (Late st Contact Info) Description 04/11/2024 Refill General Internal Medicine [facility] 200 [facility] [place] [address] Jennifer Sarkar MD 200 [place] [address] Allergies Active Allergy Reactions Criticality Noted Date Comments Food (See Comments) 03/21/2018 Other reaction(s): WAS TOLD NOT TO TAKE grapefruit Tramadol Other (Please comment) High 10/06/2020 Hallucinations documented as of this encounter (statuses as of 04/11/2024) Medications NITROGLYCERIN 0.4 MG SL SUBLIndications:Old myocardial [...] Active Additional Information Patient taking differently:1,000 mg LiazS6D PRN, ,may take 3rd dose in between --12/21/2021, Reported on 03/16/2024 Saline Nasal Gel (Nasogel)Indication s:Chronic respiratory failure with hypoxia (HCC),Supplemental oxygen dependent,Nasal septal perforation,Nose dryness Administer into each nostril daily. 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 90 Tablet 3 024 Active Tamsulosin HCl 0.4 MG Oral Capsule (Flomax)Indications :BPH with obstruction/lower urinary tract symptoms TAKE 1 CAPSULE BY MOUTH EVERYDAY AT BEDTIME 90 Capsule 1 024 Active Citalopram Hydrobromide 20 MG Oral [...] Wheezing or Dyspnea. 18 g 11 024 2024 Active Combivent Respimat 20-100 MCG/ACT Inhalation Aerosol Solution (Ipratropium-Albute rol)Indications:Gra nulomatous lung disease (HCC),Chronic respiratory failure with hypoxia (HCC) Inhale 1 Puff by mouth in the morning and 1 Puff at noon and 1 Puff in the evening and 1 Puff before bedtime. 12 g 2 024 2024 Active Dutasteride 0.5 MG Oral Capsule (Avodart) Take 1 Capsule by mouth in the morning. 90 Capsule 3 024 Active Lidocaine 4 % External Patch (Aspercreme)Indicat [...] TABLET DAILY 90 Tablet 1 025 Active Allopurinol 100 MG Oral Tablet (Zyloprim) Take 2 Tablets by mouth in the morning. 60 Tablet 025 Active Spironolactone 25 MG Oral Tablet (Aldactone) Take 0.5 Tablets by mouth once a day on Tuesday, Tuesday, and Tuesday only. 13 Tablet 5 025 Active Levothyroxine Sodium 112 MCG Oral Tablet (Levoxyl)Indication s:Acquired hypothyroidism Take 1 Tablet by mouth daily first thing in the morning. (at least 30 min prior to breakfast or other meds) 90 Tablet 1 025 Active Furosemide 40 MG Oral Tablet (Lasix)Indications: Coronary artery disease involving tunica-biloxi coronary artery of tun[place]bil[place] heart without angina pectoris,Chronic right-sided heart failure (HCC),Bilateral leg edema,Encounter for monitoring diuretic therapy Take 1 Tablet by mouth 2 times a day. 025 2024 Disconti nued(Ref ill) documented as of this encounter (statuses as of 04/11/2024) Active Problems Problem Noted Date Diagnosed Date Hypercalcemia 12/03/2022 Supplemental oxygen dependent 05/06/2022 Nasal septal perforation 05/06/2022 Chronic respiratory failure with hypoxia 022 Granulomatous lung disease 09/18/2021 Chronic rhinitis 06/10/2021 Schatzki's ring of distal esophagus 06/10/2021 Chronic right-sided heart failure 04/08/2020 Coronary artery disease invo lving tunica-biloxi coronary artery of tun[place]-biloxi heart without angina pectoris 11/21/2018 Abnormality of [...] as of this encounter (statuses as of 04/11/2024) Resolved Problems Problem Noted Date Diagnosed Date [...] as of this encounter (statuses as of 04/11/2024) Immunizations Name Administration Dates Next Due COVID-19 mRNA, LNP-s, No Pre serve, 2-Dose Series (RecruitTalk) 05/14/2020,04/18/2020 Covid-19, Mrna, Lnp-s, Pf, B ivalent, [...] Industry Job Start Date Job End Date Julian 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 Not on file Not on file Not on file documented as of this encounter Miscellaneous Notes * Telephone Encounter - Kellee Cooper PHARM Tech - 04/11/2024 3:18 PM EST Transferred pt to specialty tech line Thank you, Kellee Cooper CPhT Photo Tech II [facility] 04/11/2024,3:19 PM documented in this encounter Plan of Treatment Upcoming Encounters Date Type Department Care Team (Late st Contact Info) Description 04/18/2024 3:30 PM EST Procedure Only Urology, [address] [place] [address] Man Gu MD [address] [place] [id number] 05/14/2024 12:00 PM EDT Office Visit Pulmonary Medicine, [facility] [address] [place] [address] Bashir Harding MD [address] [place] [phone] 06/07/2024 2:00 PM EDT [facility] [place] [facility] [address] [facility] [place] [phone] Gypsy Mujica PA-C [address] [place] [address] [place] [address] 06/19/2024 10:30 AM EDT Office Visit Orthopaedics [facility] [address] [place] [phone] Ely Cabrales MD [address] [place] [phone] 07/11/2024 3:00 PM EDT Office Visit General Internal Medicine [facility] 200 [facility] [place], [place] [address] Jennifer Sarkar MD 200 [facility] [place], [place] [address] Scheduled Procedures Name Priority Associated Diagnoses Date/Ti me COLONOSCOPY FLEXIBLE PROXIMAL DIAGNOSTIC Recall History of colon polyps Health Maintenance Due Date Last Done Comments Adult Wellness Visit 11/29/2017 11/29/2016 Colonoscopy 06/03/2022 06/03/2017, 02/01/2007 Depression Monitoring 09/09/2022 09/09/2021 COVID-19 Vaccine ( season) 2023 07/01/2023, 05/14/2020, 04/18/2020 Albumin/Creatinine Ratio 09/09/2024 09/09/2021, 09/22 GFR 03/14/2025 03/14/2024, 01/22, 12/20/2023, Additional history exists TSH 03/14/2025 03/14/2024, 11/22, [...] D LEVEL ONCE IN A LIFETIME-USE SMARTSET# [id number] Completed 03/14/2024, 10/20/2023, 08/17/2023, Additional history exists [...] this encounter Medical Devices Implanted Type Area Tire Balancer Device Identifier Shelf Expiration Date Model / Serial / Lot Lens Intraoc 23.0 - [id number] - [id number] Implanted:Qty: 1 on 12/21/2016 by Raj Bernard MD at [facility] Left: Eye [employer] LOMB 06/20/2021 [id number] / [id number] / Lens Intraoc 22.0 - [id number] - [id number] Implanted:Qty: 1 on 01/06/2017 by aRj Bernard MD at OR [facility] Right: Eye BAUSCH [employer] LOMB 08/20/2021 [id number] / [id number] / [id number] documented as of this encounter Advance Directives [...] Power of Attor bj? No Care Teams Training Instructor Relationship Specialty Start Date End Date Jennifer Sarkar MD 200 [place] [address] PCP - General Internal Medicine 10/06/20 documented as of this encounter
--- OUTSIDE RECORDS SUMMARY | 2024-04-20 04:02 | External Medical Summary | Summary of Care ---
Author Name Unknown Organization [facility] Address [address] [facility] [place] [address] Phone [phone] Care Team Providers Care Harbor Department Manager Name Role Phone Jennifer Sarkar MD Primary Care Provider [phone] Reason for Visit * Reason Comments eRx-Medication Refill Encounter Details Date Type Department Care Team (Late st Contact Info) Description 04/11/2024 Refill General Internal Medicine [facility] 200 [facility] [place] [address] Jennifer Sarkar MD 200 [place] [address] BPH with obstruction/lower urinary tract symptoms Allergies Active Allergy Reactions Criticality Noted Date Comments Food (See Comments) 03/21/2018 Other reaction(s): WAS TOLD NOT TO TAKE grapefruit Tramadol Other (Please comment) High 10/06/2020 Hallucinations documented as of this encounter (statuses as of 04/12/2024) Medications NITROGLYCERIN 0.4 MG SL SUBLIndications:Ol d [...] Active Additional Information Patient taking differently:1,000 mg [id number] PRN, ,may take 3rd dose in between [...] mouth in the morning. 60 Tablet 5 025 Active Spironolactone 25 MG Oral Tablet (Aldactone) Take 0.5 Tablets by mouth once a day on Tuesday, Tuesday, and Tuesday only. 13 Tablet 5 025 Active Levothyroxine Sodium 112 MCG Oral Tablet (Levoxyl)Indicatio ns:Acquired hypothyroidism Take 1 Tablet by mouth daily first thing in the morning. (at least 30 min prior to breakfast or other meds) 90 Tablet 1 025 Active Tamsulosin HCl 0.4 MG Oral Capsule (Flomax)Indication s:BPH with obstruction/lower urinary tract symptoms TAKE 1 CAPSULE BY MOUTH EVERYDAY AT BEDTIME 90 Capsule 1 025 Active Furosemide 40 MG Oral Tablet (Lasix)Indications :Coronary artery disease involving confed[place] gosh[place] coronary artery of conf[place] heart without angina pectoris,Chronic right-sided heart failure (HCC),Bilateral leg edema,Encounter for monitoring diuretic therapy Take 1 Tablet by mouth 2 times a day. 180 Tablet 3 025 Active Tamsulosin HCl 0.4 MG Oral Capsule (Flomax)Indication s:BPH with obstruction/lower urinary tract symptoms TAKE 1 CAPSULE BY MOUTH EVERYDAY AT BEDTIME 90 Capsule 1 024 04/12 Discontinued documented as of this encounter (statuses as of 04/12/2024) Active Problems Problem Noted Date Diagnosed Date [...] as of this encounter (statuses as of 04/12/2024) Resolved Problems Problem Noted Date Diagnosed Date [...] as of this encounter (statuses as of 04/12/2024) Immunizations Name Administration Dates Next Due COVID-19 mRNA, LNP-s, No Pre serve, 2-Dose Series (VisualDNA) 05/14/2020,04/18/2020 Covid-19, Mrna, Lnp-s, Pf, B ivalent, [...] Industry Job Start Date Job End Date [place] Glass Not on file Not on file Not on file documented as of this encounter Miscellaneous Notes * Telephone Encounter - Ada Brenner [facility] - 04/12/2024 6:26 AM ESTSigned Prescriptions: Disp Refills Tamsulosin HCl 0.4 MG Oral Capsule (Flomax)90 Cap*1 Sig: TAKE 1 CAPSULE BY MOUTH EVERYDAY AT BEDTIMEAuthorizing Provider: Tabitha SARKAR User: ADA BRENNER--- documented in this encounter Plan of Treatment Upcoming Encounters Date Type Department Care Team (Late st Contact Info) Description 04/18/2024 3:30 PM EST Procedure Only [facility], [facility] [place] [address] Man Gu MD 27 [place] [phone] 05/14/2024 12:00 PM EDT Office Visit Pulmonary Medicine, [facility] [address] [place] [address] Bashir Harding MD [address] [place] [address] 06/07/2024 2:00 PM EDT Office Visit Dermatology, [place] [place] [phone] Gypsy Mujica PA-C [address] [place] [address] [place] [address] 06/19/2024 10:30 AM EDT Office Visit Orthopaedics [facility] [address] [place] [phone] Ely Cabrales MD [address] [place] [phone] 07/11/2024 3:00 PM EDT Office Visit General Internal Medicine [facility] [place] [address] [place] [address] Jennifer Sarkar MD [address] [place] [address] Scheduled Procedures Name Priority Associated Diagnoses Date/Ti [...] D LEVEL ONCE IN A LIFETIME-USE SMARTSET# [id number] Completed 03/14/2024, 10/20/2023, 08/17/2023, Additional history exists [...] this encounter Medical Devices Implanted Type Area Semiconductor Bonder Device Identifier Shelf Expiration Date Model / Serial / Lot Lens Intraoc 23.0 - [id number] - [id number] Implanted:Qty: 1 on 12/21/2016 by Raj Bernard MD at OR [facility] Left: Eye [employer] LOMB 06/20/2021 [id number] / [id number] / Lens Intraoc 22.0 - [id number] - [id number] Implanted:Qty: 1 on 01/06/2017 by Raj Bernard MD at OR [facility] Right: Eye BAUSCH [employer] LOMB 08/20/2021 [id number] / [id number] / [id number] documented as of this encounter Visit Diagnoses [...] Power of Attor bj? No Care Teams Harbor Department Manager Relationship Specialty Start Date End Date Jennifer Sarkar MD [address] [place] [address] [place] [address] PCP - General Internal Medicine 10/06/20 documented as of this encounter
--- OUTSIDE RECORDS SUMMARY | 2024-04-20 04:02 | External Medical Summary | Summary of Care ---
Author Name Unknown Organization [facility] Address [address] [place] [address] Phone [phone] Care Team Providers Care Loan Servicing Officer Name Role Phone Jennifer Sarkar MD Primary Care Provider [phone] Reason for Visit * Reason Onset Date Comments Test Results 04/19/2024 Encounter Details Date Type Department Care Team (Late st Contact Info) Description 04/19/2024 Telephone Cardiology, [facility] [address] [place] [address] Job Bravo PA-C [address] [place] [address] Test Results Allergies Active Allergy Reactions Criticality [...] Active Additional Information Patient taking differently:1,000 mg XosiE7I PRN, ,may take 3rd dose in between --12/21/2021, Reported on 03/16/2024 Saline Nasal Gel (Nasogel)Indication s:Chronic respiratory failure with hypoxia (HCC),Supplemental oxygen dependent,Nasal septal perforation,Nose dryness Administer into each nostril daily. 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 180 Tablet 3 04/11/19 25 Active Solifenacin Succinate 5 MG Oral Tablet (VESIcare) Take 1 Tablet by mouth in the morning. 30 Tablet 6 04/18/19 25 Active documented as of this encounter [...] failure 04/08/2020 Coronary artery disease invo lving torres martinez coronary artery of torres martinez heart without angina pectoris 11/21/2018 Abnormality of [...] and draped in usual sterile manner. 14 Amharic flexible cystoscope inserted into urethra and guided into bladder under direct vision. Findings :normal bladder mucosa, normal anatomical position of ureteral orifices.Ureteral stent removed completely Calculus of ureter 04/01/2005 8 ADVANCE DIRECTIVE INFORMATION 07/27/2004 07/21/2016 Overview (07/27/2004): Patient does not have an advanced directive. Patient given information booklet. Bacterial pneumonia 07/31/2002 09/17/19 Depression with anxiety 11/18/2000 1002/2017 HYPERTENSION NOS 01/13/2009 Overview (01/13/2009): Modified per HTN protocol #16. Screening for prostate cancer 01/03/2007 Asthma, allergic 04/22/2009 Osteoporosis 02/24/2017 documented as of this encounter (statuses as of 04/19/2024) Immunizations Name Administration Dates Next Due COVID-19 mRNA, LNP-s, No Pre serve, 2-Dose Series (View and Chew) 05/14/2020,04/18/2020 Covid-19, Mrna, Lnp-s, Pf, B ivalent, 30 Mcg, IM, 12 yrs and above (View and Chew) 07/01/2023 H1N1 2009 Influenza, IM 04/22/2009 PPD [...] Industry Job Start Date Job End Date [place] [employer] Not on file Not on file Not on file documented as of this encounter Miscellaneous Notes * Telephone Encounter - Tonia Tyson LPN - 04/19/2024 8:37 AM EST Letter sent * Telephone Encounter - Tonia Tyson LPN - 04/19/2024 8:35 AM EST ----- Message from Job Bravo sent at 04/19/2024 7:21 AM EST ----- OK/stable documented in this encounter Plan of Treatment Upcoming Encounters Date Type Department Care Team (Late st Contact Info) Description 05/14/2024 12:00 PM EDT Office Visit Pulmonary Medicine, [facility] [address] [place] [address] Bashir Harding MD [address] [place] [address] 06/07/2024 2:00 PM EDT [facility] [place] [phone] Gypsy Mujica PA-C [address] [place] [address] [place] [address] 06/19/2024 10:30 AM EDT Office Visit Orthopaedics [facility] [address] [place] [phone] Ely Cabrales MD [address] [place] [phone] 07/11/2024 3:00 PM EDT Office Visit General Internal Medicine [facility] [address] [place] [address] Jennifer Sarkar MD 200 [facility] [place] [address] Scheduled Procedures Name Priority Associated Diagnoses Date/Ti [...] D LEVEL ONCE IN A LIFETIME-USE SMARTSET# [id number] Completed 03/14/2024, 10/20/2023, 08/17/2023, Additional history exists [...] this encounter Medical Devices Implanted Type Area Angle Dozer Operator Device Identifier Shelf Expiration Date Model / Serial / Lot Lens Intraoc 23.0 - [id number] - [id number] Implanted:Qty: 1 on 12/21/2016 by Raj Bernard MD at OR [facility] Left: Eye [employer]CH [employer] LOMB 06/20/2021 [id number] / [id number] / Lens Intraoc 22.0 - [id number] - [id number] Implanted:Qty: 1 on 01/06/2017 by Raj Bernard MD at OR [facility] Right: Eye BAUSCH [employer] LOMB 08/20/2021 [id number] / [id number] / [id number] documented as of this encounter Advance Directives [...] Power of Attor bj? No Care Teams Loan Servicing Officer Relationship Specialty Start Date End Date Jennifer Sarkar MD 200 [facility] [place] [address] PCP - General Internal Medicine 10/06/20 documented as of this encounter
--- OUTSIDE RECORDS SUMMARY | 2024-04-20 04:02 | External Medical Summary | Summary of Care ---
Author Name Unknown Organization [facility] Address [address] [facility] [place] [address] Phone [phone] Care Team Providers Care Floor Coverings Installer Name Role Phone Jennifer Sarkar MD Primary Care Provider Reason for Visit * Reason Onset Date Comments Test Results 03/15/2024 Encounter Details Date Type Department Care Team (Late st Contact Info) Description 03/15/2024 Telephone Nephrology, [place] [address] [facility] [place] [address] Yumiko Philippe MD [address] [facility] [place] [address] Test Results Allergies Active Allergy Reactions Criticality Noted Date Comments Food (See Comments) 03/21/2018 Other reaction(s): WAS TOLD NOT TO TAKE grapefruit Tramadol Other (Please comment) High 10/06/2020 Hallucinations documented as of this encounter (statuses as of 04/06/2024) Medications NITROGLYCERIN 0.4 MG SL SUBLIndications:Ol d [...] Active Additional Information Patient taking differently:1,000 mg [id number] PRN, ,may take 3rd dose in between --12/21/2021, Reported on 01/11/2024 Saline Nasal Gel (Nasogel)Indicatio ns:Chronic respiratory failure [...] skin daily. 30 Patch 5 024 Active Additional Information Patient not taking.Reported on 01/11/2024 Meclizine HCl 12.5 MG Oral Tablet (Antivert)Indicati [...] the morning. 60 Tablet 5 025 Active Furosemide 40 MG Oral Tablet (Lasix)Indications :Coronary artery disease involving [place] coronary artery of [place] heart without angina pectoris,Chronic right-sided heart failure (HCC),Bilateral leg edema,Encounter for monitoring diuretic therapy 40 mg in the AM and 20 mg in the early afternoon 135 Tablet 3 024 03/16 Discontinued Levothyroxine Sodium 112 MCG Oral Tablet (Levoxyl)Indicatio ns:Acquired hypothyroidism TAKE 1 TABLET BY MOUTH IN THE MORNING. (AT LEAST 30 MIN PRIOR TO BREAKFAST OR OTHER MEDS) 90 Tablet 1 024 03/22 Discontinued( Refill) documented as of this encounter (statuses as of 04/06/2024) Active Problems Problem Noted Date Diagnosed Date Hypercalcemia 12/03/2022 Supplemental oxygen dependent 05/06/2022 Nasal septal perforation 05/06/2022 Chronic respiratory failure with hypoxia 022 Granulomatous lung disease 09/18/2021 Chronic rhinitis 06/10/2021 Schatzki's ring of distal esophagus 06/10/2021 Chronic right-sided heart failure 04/08/2020 Coronary artery disease invo lving [place] coronary artery of [place] heart without angina pectoris 11/21/2018 Abnormality of [...] as of this encounter (statuses as of 04/06/2024) Resolved Problems Problem Noted Date Diagnosed Date [...] as of this encounter (statuses as of 04/06/2024) Immunizations Name Administration Dates Next Due COVID-19 mRNA, LNP-s, No Pre serve, 2-Dose Series ([employer]) 05/14/2020,04/18/2020 Covid-19, Mrna, Lnp-s, Pf, B ivalent, 30 Mcg, IM, 12 yrs and above ([employer]) 07/01/2023 H1N1 2009 Influenza, IM 04/22/2009 PPD [...] Industry Job Start Date Job End Date [employer] Not on file Not on file Not on file documented as of this encounter Miscellaneous Notes * Telephone Encounter - Yuliet Winters LPN - 03/15/2024 2:50 PM EST Rx pended MD please approve * Telephone Encounter - Yuliet Winters LPN - 03/15/2024 2:29 PM EST Spoke with Pt he is made aware his uric acid level is elevated and Dr Philippe wishes him to start Allopurinol 200 mg every morning Pt request this rx to [facility] Pt will be having this medication titrated through PCP Dr Sarkar and he verbalizes understanding Pt will repeat another uric acid in April at Pulmonology apt as to have results available Orders have already been placed by Dr Sarkar * Telephone Encounter - Yuliet Winters LPN - 03/15/2024 2:25 PM EST ----- Message from Jennifer Sarkar MD sent at 03/15/2024 2:14 PM EST ----- Noted. Thank you . Request nephrology nurse to please let him know > Uric acid only to be repeated in april at [facility] [place] appt-, other labs 2-5d before appt with me in June ----- Message ----- From: Yumiko Philippe MD Sent: 03/15/2024 12:45 PM EST To: Jennifer Sarkar MD; # Kidney labs stable but with elevated uric acid levels. Patient not currently on allopurinol and is on obligate torsemide to manage volume overload from cardiac conditions: Significant risk to developgout; would preemptively treat hyperuricemia here. Nephrology nurse to do: Suggest allopurinol 200 mg p.o. daily -thereafter suggest following up with PCP for titration of allopurinol dose Dr. Mello LOPEZ * Telephone Encounter - Yuliet Winters LPN - 03/15/2024 2:25 PM EST ----- Message from Jennifer Sarkar MD sent at 03/15/2024 2:14 PM EST ----- Noted. Thank you . Request nephrology nurse to please let him know > Uric acid only to be repeated in april at [facility] [place] appt-, other labs 2-5d before appt with me in June ----- Message ----- From: Yumiko Philippe MD Sent: 03/15/2024 12:45 PM EST To: Jennifer Sarkar MD; # Kidney labs stable but with elevated uric acid levels. Patient not currently on allopurinol and is on obligate torsemide to manage volume overload from cardiac conditions: Significant risk to developgout; would preemptively treat hyperuricemia here. Nephrology nurse to do: Suggest allopurinol 200 mg p.o. daily -thereafter suggest following up with PCP for titration of allopurinol dose Dr. Mello LOPEZ documented in this encounter Plan of Treatment Upcoming Encounters Date Type Department Care Team (Late st Contact Info) Description 04/18/2024 3:30 PM EST Procedure Only Urology, [facility] [address] [facility] [place] [address] Man Gu MD [address] [place] [phone] 05/14/2024 12:00 PM EDT Office Visit Pulmonary Medicine, [facility] [address] [facility] [place] [address] Bashir Harding MD [address] [facility] [place] [address] 06/07/2024 2:00 PM EDT [facility] [address] [facility] [place] [phone] Gypsy Mujica PA-C [address] [place] [address] [place] [address] 06/19/2024 10:30 AM EDT Office Visit Orthopaedics [facility] [address] [place] [phone] Ely Cabrales MD [address] [place] [address] 07/11/2024 3:00 PM EDT Office Visit General Internal Medicine [facility] [address] [place] [address] Jennifer Sarkar MD [address] [place] [address] Scheduled Procedures Name Priority Associated Diagnoses Date/Ti [...] D LEVEL ONCE IN A LIFETIME-USE SMARTSET# [id number] Completed 03/14/2024, 10/20/2023, 08/17/2023, Additional history exists [...] encounter Medical Devices Implanted Type Area Lunchroom Aide Device Identifier Shelf Expiration Date Model / Serial / Lot Lens Intraoc 23.0 - [id number] - [id number] Implanted:Qty: 1 on 12/21/2016 by Raj Bernard MD at OR [facility] Left: Eye [employer] LOMB 06/20/2021 [id number] / [id number] / Lens Intraoc 22.0 - [id number] - [id number] Implanted:Qty: 1 on 01/06/2017 by Raj Bernard MD at OR [facility] Right: Eye BA[employer]CH [employer] LOMB 08/20/2021 [id number] / [id number] / [id number] documented as of this encounter Advance Directives [...] Power of Attor bj? No Care Teams Floor Coverings Installer Relationship Specialty Start Date End Date Jennifer Sarkar MD [address] [place] [address] PCP - General Internal Medicine 10/06/20 documented as of this encounter
--- OUTSIDE RECORDS SUMMARY | 2024-04-20 04:02 | External Medical Summary ---
Author Name Unknown Address Unknown Organization K01:LABORATORY [facility] - [address] [place] [address] Laboratory Report Ordering Provider Test Date Status ROBER ENRIQUEZ 04/18/2024 16:59:10 Final Observation Date Value Abnormality Reference (Units ) Status BUN 04/18/2024 16:59:10 10 6-20 (mg/dL) Final Creatinine 04/18/2024 16:59:10 0.9 0.6-1.2 (mg/dL) Final Glomerular filtration rate/1.73 sq M.predicted [Volume Rate/Area] in Serum, Plasma or Blood by Creatinine-based formula (CKD-EPI) 04/18/2024 16:59:10 85 >=60 (mL/min) Final eGFR is calculated based on the CKD-EPI 2020 equation. Sodium 04/18/2024 16:59:10 145 135-146 (m mol/L) Final Potassium 04/18/2024 16:59:10 4.5 3.5-5.1 (m mol/L) Final Cl 04/18/2024 16:59:10 100 98-107 (mm ol/L) Final CO2 04/18/2024 16:59:10 36 Above high normal 22 -32 (mmol/L) Final Anion gap 04/18/2024 16:59:10 9 7-15 (mmol /L) Final Glucose 04/18/2024 16:59:10 134 Above high normal 70 -120 (mg/dL) Final Calcium 04/18/2024 16:59:10 10.3 Above high normal 8. 4-10.2 (mg/dL) Final Performing Location LABORATORY [facility] - [address] [place] [address]
--- OUTSIDE RECORDS SUMMARY | 2024-04-20 04:02 | External Medical Summary | Summary of Care ---
Author Name Unknown Organization [facility] Address [address] [place] [address] Phone [phone] Care Team Providers Care Armored Truck Driver Name Role Phone Jennifer Sarkar MD Primary Care Provider [phone] Reason for Visit * Reason Onset Date Comments Medication Refill 04/11/2024 Encounter Details Date Type Department Care Team (Late st Contact Info) Description 04/11/2024 Refill Cardiology, [facility] [address] [place] [address] Zoe Richter PA-C [address] [place] [address] Coronary artery disease involving [place] coronary artery of [place] heart without angina pectoris; Chronic right-sided heart [...] Active Additional Information Patient taking differently:1,000 mg [id number] PRN, ,may take 3rd dose in between --12/21/2021, Reported on 03/16/2024 Saline Nasal Gel (Nasogel)Indication s:Chronic respiratory failure with hypoxia (HCC),Supplemental oxygen dependent,Nasal septal perforation,Nose dryness Administer into each nostril daily. 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 180 Tablet 3 025 Active Furosemide 40 MG Oral Tablet (Lasix)Indications: Coronary artery disease involving [place] coronary artery of [place] heart without angina pectoris,Chronic right-sided heart failure [...] Coronary artery disease invo lving [place] coronary artery of [place] heart without angina pectoris 11/21/2018 Abnormality of [...] and draped in usual sterile manner. 14 Swazi flexible cystoscope inserted into urethra and guided [...] mRNA, LNP-s, No Pre serve, 2-Dose Series ([facility]) 05/14/2020,04/18/2020 Covid-19, Mrna, Lnp-s, Pf, B ivalent, 30 Mcg, IM, 12 yrs and above ([employer] [facility]) 07/01/2023 H1N1 2009 Influenza, IM 04/22/2009 PPD [...] Industry Job Start Date Job End Date [employer] Not on file Not on file Not on file documented as of this encounter Miscellaneous Notes * Telephone Encounter - Zoe Richter PA-C - 04/11/2024 3:48 PM ESTSigned Prescriptions: Disp Refills Furosemide 40 MG Oral Tablet (Lasix) 180 Ta*3 Sig: Take 1 Tablet by mouth 2 times a day. Authorizing Provider: ZOE RICHTER * Telephone Encounter - Gala Dubois, grinder set up operator thread - 04/11/2024 3:23 PM EST Patient is up to date for office visits. Pending Prescriptions: Disp Refills Furosemide 40 MG Oral Tablet (Lasix) Sig: Take 1 Tablet by mouth 2 times a day. Last Visit: 03/16/2024 (in office), 07/05/2019 (telemedicine) Next Visit: Visit date not found If no future appointments scheduled, and last appointment is greater than a year ago, please schedule patient for a follow-up appointment Last date the medication was ordered: 03/16/24 Pharmacy: [id number] [address] [facility] Is this request for a controlled substance?No it is not controlled. Urine Drug Screen:No results found. However, due to the size of the patient record, not all encounters were searched. Please check Results Review for a complete set of results. Patient Phone Numbers Labs: Lab Results Component Value Date/Time CREAT 1.0 03/14/2024 03:00 PM CREAT 0.97 02/13/2024 12:00 AM CREAT 1.0 01/02/2020 12:23 PM POTASSIUM 3.5 03/14/2024 03:00 PM POTASSIUM 3.7 02/13/2024 12:00 AM POTASSIUM 4.0 01/02/2020 12:23 PM TSH 1.22 03/14/2024 03:00 PM TSH 1.32 01/02/2020 12:23 PM LDL 62 12/20/2023 10:49 AM LDL 57 01/02/2020 12:23 PM LDL 43 11/21/2017 02:01 PM ALT 12 03/14/2024 03:00 PM ALT 20 01/02/2020 12:23 PM HGBA1C 5.6 10/09/2008 01:40 PM documented in this encounter Plan of Treatment Upcoming Encounters Date Type Department Care Team (Late st Contact Info) Description 04/18/2024 3:30 PM EST Procedure Only Urology, [facility] [address] [facility] [place] [address] Man Gu MD [address] [place] [address] 05/14/2024 12:00 PM EDT Office Visit Pulmonary Medicine, [facility] [address] [place] [address] Bashir Harding MD [address] [place] [address] 06/07/2024 2:00 PM EDT Office Visit Dermatology, [place]ilia P[facility]rez [address] [facility] [place] [phone] Gypsy Mujica PA-C [address] [place] [address] [place] [address] 06/19/2024 10:30 AM EDT Office Visit Orthopaedics [facility] [address] [place] [phone] Ely Cabrales MD [address] [place] [phone] 07/11/2024 3:00 PM EDT Office Visit General Internal Medicine [place] [address] [place] [address] Jennifer Sarkar MD [address] [facility] [place] [address] Scheduled Procedures Name Priority Associated Diagnoses Date/Ti [...] D LEVEL ONCE IN A LIFETIME-USE SMARTSET# [id number] Completed 03/14/2024, 10/20/2023, 08/17/2023, Additional history exists [...] this encounter Medical Devices Implanted Type Area Freight Flow Sales Leader Device Identifier Shelf Expiration Date Model / Serial / Lot Lens Intraoc 23.0 - [id number] - [id number] Implanted:Qty: 1 on 12/21/2016 by Raj Bernard MD at OR [facility] Left: Eye BAUSCH [employer] LOMB 06/20/2021 [id number] / [id number] / Lens Intraoc 22.0 - [id number] - [id number] Implanted:Qty: 1 on 01/06/2017 by Raj Bernard MD at OR [facility] Right: Eye BAUSCH & LOMB 08/20/2021 [id number] / [id number] / [id number] documented as of this encounter Visit Diagnoses Diagnosis Coronary artery disease involving [place] coronary artery of [place] heart without angina pectoris Chronic right-sided heart [...] Power of Attor bj? No Care Teams Armored Truck Driver Relationship Specialty Start Date End Date Jennifer Sarkar MD [address] [facility] [place] [address] PCP - General Internal Medicine 10/06/20 documented as of this encounter
--- OUTSIDE RECORDS SUMMARY | 2024-04-20 04:02 | External Medical Summary | Summary of Care ---
Author Name Unknown Organization [facility] Address [address] [place] [address] Phone [phone] Care Team Providers Care Hydro Mechanic Name Role Phone Jennifer Sarkar MD Primary Care Provider [phone] Reason for Visit * Reason Comments Outpatient Testing Encounter Details Date Type Department Care Team (Late st Contact Info) Description 04/18/2024 2:20 PM EST Laboratory Laboratory, [facility] [address] [facility] [place] [phone] [facility] [address] Chronic right-sided heart failure (HCC) Allergies Active Allergy Reactions Criticality Noted [...] Active Additional Information Patient taking differently:1,000 mg HfuoU1H PRN, ,may take 3rd dose in between --12/21/2021, Reported on 03/16/2024 Saline Nasal Gel (Nasogel)Indication s:Chronic respiratory failure with hypoxia (HCC),Supplemental oxygen dependent,Nasal septal perforation,Nose dryness Administer into each nostril daily. 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 Timber jonathan respiratory failure with hypoxia (HCC),Chronic right-sided [...] Oral Tablet (Lasix)Indications: Coronary artery disease involving [place] coronary artery of [place] heart without angina pectoris,Chronic right-sided heart failure [...] failure 04/08/2020 Coronary artery disease invo lving [place] coronary artery of [place] heart without angina pectoris 11/21/2018 Abnormality of gait 11/21/2018 Displaced fracture of middle third of navicular bone of right wrist with delayed healing 10/04/2018 Current moderate episode of major depressive disorder without prior episode 11/21/2017 Senile osteoporosis 02/24/2017 Restrictive lung disease 09/06/2013 Overview (11/15/2021): 11/15/21--86% rest, 91% ambln>to st O2 2 lt at rest and with exertion per DrSilverman Elevated hemidiaphragm 09/06/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 14 Korean flexible cystoscope inserted into urethra and [...] mRNA, LNP-s, No Pre serve, 2-Dose Series ([facility]) 05/14/2020,04/18/2020 Covid-19, Mrna, Lnp-s, Pf, B ivalent, 30 Mcg, IM, 12 yrs and above ([facility]) 07/01/2023 H1N1 2009 Influenza, IM 04/22/2009 PPD [...] Industry Job Start Date Job End Date [employer] Not on file Not on file Not on file documented as of this encounter Plan of Treatment Upcoming Encounters Date Type Department Care Team (Late st Contact Info) Description 05/14/2024 12:00 PM EDT Office Visit Pulmonary Medicine, [facility] [address] [place] [address] Bashir Harding MD [address] [place] [address] 06/07/2024 2:00 PM EDT [facility] [address] [facility] [place] [phone] Gypsy Mujica PA-C [address] [place] [address] [place] [address] 06/19/2024 10:30 AM EDT Office Visit Orthopaedics [facility] [address] [place] [phone] Ely Cabrales MD [address] [place] [phone] 07/11/2024 3:00 PM EDT Office Visit General Internal Medicine [facility] [address] [facility] [place] [address] Jennifer Sarkar MD 200 [place] [address] Scheduled Procedures Name Priority Associated Diagnoses Date/Ti [...] D LEVEL ONCE IN A LIFETIME-USE SMARTSET# [id number] Completed 03/14/2024, 10/20/2023, 08/17/2023, Additional history exists [...] this encounter Medical Devices Implanted Type Area Spline Rolling Machine Job Setter Device Identifier Shelf Expiration Date Model / Serial / Lot Lens Intraoc 23.0 - [id number] - [id number] Implanted:Qty: 1 on 12/21/2016 by Raj Bernard MD at OR [facility] Left: Eye BAUSCH & LOMB 06/20/2021 [id number] / [id number] / Lens Intraoc 22.0 - [id number] - [id number] Implanted:Qty: 1 on 01/06/2017 by Raj Bernard MD at OR [facility] Right: Eye BAUSCH & LOMB 08/20/2021 [id number] / [id number] / [id number] documented as of this encounter Procedures Procedure Name Priority Date/Time Associated Diagnosis Comments BASIC METABOLIC PANEL Routine 04/18/2024 4:59 PM EST Chronic right-sided heart failure (HCC) documented in this encounter Results * (ABNORMAL) BASIC METABOLIC PANEL (04/18/2024 4:59 PM EST) BUN 10 6 - 20 mg/dL 04/18/2024 11:43 PM EST [facility] CREATININE 0.9 0.6 - 1.2 mg/dL 04/18/2024 11:43 PM EST [facility] EGFR 85 >=60 mL/min 04/18/2024 11:43 PM EST [facility] Comment:eGFR is calculated b ased on the CKD-EPI 2020 equation. SODIUM 145 135 - 146 mmol/L 04/18/2024 11:43 PM EST [facility] POTASSIUM 4.5 3.5 - 5.1 mmol/L 04/18/2024 11:43 PM EST [facility] CHLORIDE 100 98 - 107 mmol/L 04/18/2024 11:43 PM EST [facility] CO2 36(H) 22 - 32 mmol/L 04/18/2024 11:43 PM EST [facility] ANION GAP 9 7 - 15 mmol/L 04/18/2024 11:43 PM EST [facility] GLUCOSE 134(H) 70 - 120 mg/dL 04/18/2024 11:43 PM EST [facility] CALCIUM 10.3(H) 8.4 - 10.2 mg/dL 04/18/2024 11:43 PM EST [facility] Blood Venous blood specimen / Unknown Venipuncture / Unknown 04/18/2024 4:59 PM EST 04/18/2024 4:59 PM EST Job Bravo PA-C LAB BLOOD ORDERABLES Final Result [facility] [address] [facility] [place] [address] documented in this encounter Visit Diagnoses Diagnosis Chronic right-sided heart failure (HCC) Congestive heart failure, unspecified documented in this encounter Advance Directives * [...] Power of Attor bj? No Care Teams Hydro Mechanic Relationship Specialty Start Date End Date Jennifer Sarkar MD [address] [place] [address] PCP - General Internal Medicine 10/06/20 documented as of this encounter
--- OUTSIDE RECORDS SUMMARY | 2024-04-20 04:03 | External Medical Summary | Summary of Care ---
Author Name Unknown Organization [facility] Address [address] [facility] [place] [address] Phone [phone] Care Team Providers Care Beef Cattle Farm Worker Name Role Phone Jennifer Sarkar MD Primary Care Provider [phone] Reason for Visit * Reason Onset Date Comments Test Results 03/15/2024 Encounter Details Date Type Department Care Team (Late st Contact Info) Description 03/15/2024 Telephone Nephrology, [place] 200 [place] [address] Yumiko Philippe MD 200 [facility] [place] [address] Test Results Allergies Active Allergy Reactions Criticality Noted Date Comments Food (See Comments) 03/21/2018 Other reaction(s): WAS TOLD NOT TO TAKE grapefruit Tramadol Other (Please comment) High 10/06/2020 Hallucinations documented as of this encounter (statuses as of 03/16/2024) Medications NITROGLYCERIN 0.4 MG SL SUBLIndications:Old myocardial [...] Active Additional Information Patient taking differently:1,000 mg [id number] PRN, ,may take 3rd dose in between --12/21/2021, Reported on 01/11/2024 Saline Nasal Gel (Nasogel)Indication s:Chronic respiratory failure with hypoxia (HCC),Supplemental oxygen dependent,Nasal septal perforation,Nose dryness Administer into each nostril daily. 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 30 Patch 5 01/10/20 Active Additional Information Patient not taking.Reported on 01/11/2024 Meclizine HCl 12.5 MG Oral Tablet (Antivert)Indicatio [...] morning. 60 Tablet 5 03/16/19 25 Active documented as of this encounter (statuses as of 03/16/2024) Active Problems Problem Noted Date Diagnosed Date Hypercalcemia 12/03/2022 Supplemental oxygen dependent 05/06/2022 Nasal septal perforation 05/06/2022 Chronic respiratory failure with hypoxia 022 Granulomatous lung disease 09/18/2021 Chronic rhinitis 06/10/2021 Schatzki's ring of distal esophagus 06/10/2021 Chronic right-sided heart failure 04/08/2020 Coronary artery disease invo lving [place] coronary artery of [place] heart without angina pectoris 11/21/2018 Abnormality of [...] as of this encounter (statuses as of 03/16/2024) Resolved Problems Problem Noted Date Diagnosed Date [...] and draped in usual sterile manner. 14 Icelandic flexible cystoscope inserted into urethra and guided [...] as of this encounter (statuses as of 03/16/2024) Immunizations Name Administration Dates Next Due COVID-19 mRNA, LNP-s, No Pre serve, 2-Dose Series ([employer]) 05/14/2020,04/18/2020 Covid-19, Mrna, Lnp-s, Pf, B ivalent, [...] Industry Job Start Date Job End Date [employer] Not on file Not on file [...] every morning Pt request this rx to [facility] Pt will be having this medication titrated [...] only to be repeated in april at [facility] appt-, other labs 2-5d before appt with [...] only to be repeated in april at [facility] appt-, other labs 2-5d before appt with [...] Care Team (Late st Contact Info) Description 03/16/2024 2:00 PM EST Office Visit Cardiology, [facility] 132 [facility] [place] [address] Job Bravo PA-C 132 [facility] [place] [address] 03/21/2024 10:30 AM EST Office Visit Orthopaedics [facility] 132 [facility] [place] [phone] Ely Cabrales MD 132 [facility] [place] [address] 04/18/2024 3:30 PM EST Procedure Only Urology, [facility] 132 [facility] [place] [address] Man Gu MD [address] [place] [phone] 05/14/2024 12:00 PM EDT Office Visit Pulmonary Medicine, [facility] 132 [facility] [place] [address] Bashir Harding MD [address] [place] [address] 06/07/2024 2:00 PM EDT [facility] [place] [phone] Gypys Mujica PA-C [address] [place] [address] [place] [address] 07/11/2024 3:00 PM EDT Office Visit General Internal Medicine [facility] [address] [place] [address] Jennifer Sarkar MD [address] [place] [address] Scheduled Procedures Name Priority Associated Diagnoses Date/Ti [...] D LEVEL ONCE IN A LIFETIME-USE SMARTSET# [id number] Completed 03/14/2024, 10/20/2023, 08/17/2023, Additional history exists [...] this encounter Medical Devices Implanted Type Area Dairy Husbandry Teacher Device Identifier Shelf Expiration Date Model / Serial / Lot Lens Intraoc 23.0 - [id number] - [id number] Implanted:Qty: 1 on 12/21/2016 by Raj Bernard MD at OR [facility] Left: Eye [employer]OM[employer] 06/20/2021 [id number] / [id number] / Lens Intraoc 22.0 - [id number] - [id number] Implanted:Qty: 1 on 01/06/2017 by Raj Bernard MD at OR [facility] Right: Eye [employer]USCH [employer] LOMB 08/20/2021 [id number] / [id number] / [id number] documented as of this encounter Advance Directives [...] Power of Attor bj? No Care Teams Beef Cattle Farm Worker Relationship Specialty Start Date End Date Jennifer Sarkar MD [address] [place] [address] [place] [address] PCP - General Internal Medicine 10/06/20 documented as of this encounter
--- OUTSIDE RECORDS SUMMARY | 2024-04-20 04:03 | External Medical Summary ---
Author Name Unknown Address Unknown Organization K09:[facility] [place] [address] Laboratory Report Ordering Provider Test Date Status SHIRA MACK 03/14/2024 15:00:07 Final Observation Date Value Abnormality Reference (Units ) Status BUN 03/14/2024 15:00:07 13 6-20 (mg/dL) Final Creatinine 03/14/2024 15:00:07 1.0 0.6-1.2 (mg/dL) Final Glomerular filtration rate/1.73 sq M.predicted [Volume Rate/Area] in Serum, Plasma or Blood by Creatinine-based formula (CKD-EPI) 03/14/2024 15:00:07 78 >=60 (mL/min) Final eGFR is calculated based on the CKD-EPI 2020 equation. Sodium 03/14/2024 15:00:07 143 135-146 (m mol/L) Final Potassium 03/14/2024 15:00:07 3.5 3.5-5.1 (m mol/L) Final Cl 03/14/2024 15:00:07 96 Below low normal 98- 107 (mmol/L) Final CO2 03/14/2024 15:00:07 37 Above high normal 22 -32 (mmol/L) Final Anion gap 03/14/2024 15:00:07 10 7-15 (mmol /L) Final Glucose 03/14/2024 15:00:07 108 70-120 (mg /dL) Final Albumin 03/14/2024 15:00:07 4.4 3.8-5.0 (g /dL) Final AST (Aspartate aminotransferase) 03/14/2024 15:00:07 22 10-50 (U/L) Fin al Alk Phos 03/14/2024 15:00:07 115 35-130 (U/ L) Final Bilirubin, Total 03/14/2024 15:00:07 0.4 <=1 .2 (mg/dL) Final Calcium 03/14/2024 15:00:07 10.4 Above high normal 8. 4-10.2 (mg/dL) Final Protein 03/14/2024 15:00:07 7.1 6.0-8.3 (g /dL) Final ALT (Alanine aminotransferase) 03/14/2024 15:00:07 12 10-50 (U/L) Benito tamez Performing Location [facility] [address] [place] [address]
--- OUTSIDE RECORDS SUMMARY | 2024-04-20 04:03 | External Medical Summary ---
Author Name Unknown Address Unknown Organization K01:[facility] [place] - [address] [address] Laboratory Report Ordering Provider Test Date Status JOSHUA GEE 03/14/2024 15:00:07 Final Deficient: <20 ng/mL
Ins ufficient: 20-29 ng/mL
Recommended/Optimum:30-50 ng/mL

Vitamin D intoxication is rare. If suspicious of Vitamin D toxicity, evaluation of serum Calcium and PTH is recommended. Observation Date Value Abnormality Reference (Units ) Status 25-OH Vitamin D total 03/14/2024 15:00:07 25 >19 (ng/mL) Final Performing Location [facility] - [address] [address]
--- OUTSIDE RECORDS SUMMARY | 2024-04-20 04:03 | External Medical Summary | Summary of Care ---
Author Name Unknown Organization [facility] Address [address] [facility] [place] [address] Phone [phone] Care Team Providers Care Plastics Worker Name Role Phone Jennifer Sarkar MD Primary Care Provider [phone] Reason for Visit * Reason Onset Date Comments Abnormal Test Results 03/15/2024 Vit D Encounter Details Date Type Department Care Team (Late st Contact Info) Description 03/15/2024 Telephone Rheumatology [facility] [address] [place] [phone] Meryl Santiago CRNP [facility] [facility] [address] Abnormal Test Results (Vit D) Allergies Active Allergy Reactions Criticality Noted Date Comments Food (See Comments) 03/21/2018 Other reaction(s): WAS TOLD NOT TO TAKE grapefruit Tramadol Other (Please comment) High 10/06/2020 Hallucinations documented as of this encounter (statuses as of 03/23/2024) Medications NITROGLYCERIN 0.4 MG SL SUBLIndications:Old myocardial [...] Active Additional Information Patient taking differently:1,000 mg [id number] PRN, ,may take 3rd dose in between --12/21/2021, Reported on 03/16/2024 Saline Nasal Gel (Nasogel)Indication s:Chronic respiratory failure with hypoxia (HCC),Supplemental oxygen dependent,Nasal septal perforation,Nose dryness Administer into each nostril daily. 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 respiratory failure with hypoxia (HCC),Chronic right-sided heart [...] OR OTHER MEDS) 90 Tablet 1 024 2024 Disconti nued(Ref ill) documented as of this encounter (statuses as of 03/23/2024) Active Problems Problem Noted Date Diagnosed Date Hypercalcemia 12/03/2022 Supplemental oxygen dependent 05/06/2022 Nasal septal perforation 05/06/2022 Chronic respiratory failure with hypoxia 022 Granulomatous lung disease 09/18/2021 Chronic rhinitis 06/10/2021 Schatzki's ring of distal esophagus 06/10/2021 Chronic right-sided heart failure 04/08/2020 Coronary artery disease invo lving [place] coronary artery of [place] heart without angina pectoris [...] as of this encounter (statuses as of 03/23/2024) Resolved Problems Problem Noted Date Diagnosed Date [...] and draped in usual sterile manner. 14 Togolese flexible cystoscope inserted into urethra and guided [...] as of this encounter (statuses as of 03/23/2024) Immunizations Name Administration Dates Next Due COVID-19 mRNA, LNP-s, No Pre serve, 2-Dose Series ([employer] 05/14/2020,04/18/2020 Covid-19, Mrna, Lnp-s, Pf, B ivalent, [...] Industry Job Start Date Job End Date [employer] [place] Not on file Not on file [...] unable to get Prolia due to the [id number] cost. Advised me to contact his daughter to discuss Prolia further. documented in this encounter Plan of Treatment Upcoming Encounters Date Type Department Care Team (Late st Contact Info) Description 04/18/2024 3:30 PM EST Procedure Only Urology, [facility] 132 [facility] [place] [address] Man Gu MD [address] [place] [address] 05/14/2024 12:00 PM EDT Office Visit Pulmonary Medicine, [facility] 132 [facility] [place] [address] Bashir Harding MD [address] [place] [address] 06/07/2024 2:00 PM EDT Office Visit Dermatology, [facility] [address] [place] [phone] Gypsy Mujica PA-C [address] [place] [address] [place] [address] 06/19/2024 10:30 AM EDT Office Visit Orthopaedics [facility] [address] [place] [phone] Ely Cabrales MD [address] [place] [phone] 07/11/2024 3:00 PM EDT Office Visit General Internal Medicine [facility] [address] [place] [address] Jennifer Sarkar MD [address] [place] [address] Scheduled Procedures Name Priority Associated Diagnoses Date/Ti [...] D LEVEL ONCE IN A LIFETIME-USE SMARTSET# [id number] Completed 03/14/2024, 10/20/2023, 08/17/2023, Additional history exists [...] encounter Medical Devices Implanted Type Area Insurance Defense Paralegal Device Identifier Shelf Expiration Date Model / Serial / Lot Lens Intraoc 23.0 - [id number] - [id number] Implanted:Qty: 1 on 12/21/2016 by Raj Bernard MD at OR [facility] Left: Eye [employer]OMB 06/20/2021 [id number] / [id number] / Lens Intraoc 22.0 - [id number] - [id number] Implanted:Qty: 1 on 01/06/2017 by Raj Bernard MD at OR [facility] Right: Eye BAUSCH [employer] LOMB 08/20/2021 [id number] / [id number] / [id number] documented as of this encounter Advance Directives [...] Power of Attor bj? No Care Teams Plastics Worker Relationship Specialty Start Date End Date Jennifer Sarkar MD 200 [place] [address] PCP - General Internal Medicine 10/06/20 documented as of this encounter
--- OUTSIDE RECORDS SUMMARY | 2024-04-20 04:03 | External Medical Summary ---
Author Name Unknown Address Unknown Organization K01:[facility] [place] - [address] [address] Laboratory Report Ordering Provider Test Date Status SHIRA MACK 03/14/2024 15:00:07 Final Observation Date Value Abnormality Reference (Units ) Status Uric Acid 03/14/2024 15:00:07 7.2 Above high normal 3. 4-7.0 (mg/dL) Final Performing Location [facility] - [address] [address]
--- OUTSIDE RECORDS SUMMARY | 2024-04-20 04:03 | External Medical Summary | Summary of Care ---
Author Name Unknown Organization [facility] Address [address] [facility] [place] [address] Phone [phone] Care Team Providers Care Ob/Gyn Doctor Name Role Phone Jennifer Sarkar MD Primary Care Provider [phone] Reason for Visit * Reason Comments Outpatient Testing Encounter Details Date Type Department Care Team (Late st Contact Info) Description 03/14/2024 3:00 PM EST Laboratory Laboratory [facility] [address] [place] [phone] [facility] [address] [place] [address] Senile osteoporosis; Dyslipidemia, goal LDL below 70; Hematuria, microscopic; Nephrolithiasis; Hyperuricemia; Acquired hypothyroidism; Abnormal TSH; HTN, GOAL BELOW 140/90 Allergies Active Allergy Reactions Criticality Noted Date Comments Food (See Comments) 03/21/2018 Other reaction(s): WAS TOLD NOT TO TAKE grapefruit Tramadol Other (Please comment) High 10/06/2020 Hallucinations documented as of this encounter (statuses as of 03/14/2024) Medications NITROGLYCERIN 0.4 MG SL SUBLIndications:Old myocardial [...] Active Additional Information Patient taking differently:1,000 mg [id number] PRN, ,may take 3rd dose in between --12/21/2021, Reported on 01/11/2024 Saline Nasal Gel (Nasogel)Indication s:Chronic respiratory failure with hypoxia (HCC),Supplemental oxygen dependent,Nasal septal perforation,Nose dryness Administer into each nostril daily. 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 30 Patch 5 01/10/20 24 Active Additional Information Patient not taking.Reported on 01/11/2024 Meclizine HCl 12.5 MG Oral Tablet (Antivert)Indicatio ns:Dizziness,Benign paroxysmal positional vertigo, unspecified laterality Take 1 Tablet by mouth daily as needed for Dizziness. 30 Tablet 01/11/20 24 Active Clopidogrel Bisulfate 75 MG Oral Tablet (pLAVix)Indications :S/P primary angioplasty with coronary stent TAKE 1 TABLET DAILY 90 Tablet 1 02/22/19 25 Active documented as of this encounter (statuses as of 03/14/2024) Active Problems Problem Noted Date Diagnosed Date Hypercalcemia 12/03/2022 Supplemental oxygen dependent 05/06/2022 Nasal septal perforation 05/06/2022 Chronic respiratory failure with hypoxia 022 Granulomatous lung disease 09/18/2021 Chronic rhinitis 06/10/2021 Schatzki's ring of distal esophagus 06/10/2021 Chronic right-sided heart failure 04/08/2020 Coronary artery disease invo lving [place] coronary artery of [place] heart without angina pectoris 11/21/2018 Abnormality [...] as of this encounter (statuses as of 03/14/2024) Resolved Problems Problem Noted Date Diagnosed Date [...] and draped in usual sterile manner. 14 Portuguese flexible cystoscope inserted into urethra and guided [...] as of this encounter (statuses as of 03/14/2024) Immunizations Name Administration Dates Next Due COVID-19 mRNA, LNP-s, No Pre serve, 2-Dose Series ([employer]) 05/14/2020,04/18/2020 Covid-19, Mrna, Lnp-s, Pf, B ivalent, [...] Industry Job Start Date Job End Date [employer] Not on file Not on file Not on file documented as of this encounter Plan of Treatment Upcoming Encounters Date Type Department Care Team (Late st Contact Info) Description 03/16/2024 2:00 PM EST Office Visit Cardiology, [facility] [address] [place] [address] Job Bravo PA-C [address] [place] [address] 03/21/2024 10:30 AM EST Office Visit Orthopaedics [facility] [address] [place] [phone] Ely Cabrales MD [address] [place] [phone] 04/18/2024 3:30 PM EST Procedure Only Urology, [facility] 132 [facility] [place] [address] Man Gu MD [address] [place] [address] 05/14/2024 12:00 PM EDT Office Visit Pulmonary Medicine, [facility] 132 [facility] [place] [address] Bashir Harding MD [address] [place] [address] 06/07/2024 2:00 PM EDT Office Visit Dermatology, [facility] [phone] Gypsy Mujica PA-C [address] [place] [address] [place] [address] 07/11/2024 3:00 PM EDT Office Visit General Internal Medicine [facility] 200 [facility] [place] [address] Jennifer Sarkar MD [address] [place] [address] Pending Results Name Type Priority Associated Diagnoses Date /Time 25-HYDROXY VITAMIN D Lab Routine Senile osteoporosis 03/14/2024 3:00 PM EST COMPREHENSIVE METABOLIC PANEL Lab Routine Dyslipidemia, goal LDL below 70 Hematuria, microscopic Nephrolithiasis Hyperuricemia 03/14/2024 3:00 PM EST TSH WITH FREE T4 IF INDICATED Lab Routine Acquired hypothyroidism Abnormal TSH 03/14/2024 3:00 PM EST URIC ACID Lab Routine HTN, GOAL BELOW 140/90 Hyperuricemia 03/14/2024 3:00 PM EST Scheduled Procedures Name Priority Associated Diagnoses Date/Ti me COLONOSCOPY FLEXIBLE PROXIMAL DIAGNOSTIC Recall History of colon polyps Health Maintenance Due Date Last Done Comments Adult Wellness Visit 11/29/2017 11/29/2016 Colonoscopy 06/03/2022 06/03/2017, 02/01/2007 Depression Monitoring 09/09/2022 09/09/2021 COVID-19 Vaccine ( season) 2023 07/01/2023, 05/14/2020, 04/18/2020 Albumin/Creatinine Ratio 09/09/2024 09/09/2021, 09/22 TSH 12/19/2024 12/20/2023, 04/2023, 03/23/2023, Additional history exists GFR 02/12/2025 02/13/2024, 11/22, 10/20/2023, Additional history exists DXA Scan 08/29/2025 08/30/2023, 07/22, 05/24/2017, Additional history exists DTap/Tdap Vaccines (2 - Td or Tdap) 07/19/2028 07/19/2018, 12/14/2007 Pneumococcal Vaccine: 50+ Years Completed 11/12/2014, 07/20/2007, 02/25/2002 RETIRED - COLONOSCOPY-EVERY 5 YRS AGES 18-100 Discontinued 06/03/2017, 02/01/2007 Zoster Vaccines Completed 01/28/2020, 09/17/2019 VITAMIN D LEVEL ONCE IN A LIFETIME-USE SMARTSET# [id number] Completed 10/20/2023, 08/17/2023, 12/01/2022, Additional history exists [...] encounter Medical Devices Implanted Type Area Associate Theatre Professor Device Identifier Shelf Expiration Date Model / Serial / Lot Lens Intraoc 23.0 - [id number] - [id number] Implanted:Qty: 1 on 12/21/2016 by Raj Bernard MD at OR [facility] Left: Eye [employer]USCH [employer] LOMB 06/20/2021 [id number] / [id number] / Lens Intraoc 22.0 - [id number] - [id number] Implanted:Qty: 1 on 01/06/2017 by Raj Bernard MD at OR [facility] Right: Eye BAUSCH [employer] LOMB 08/20/2021 [id number] / [id number] / [id number] documented as of this encounter Visit Diagnoses Diagnosis Senile osteoporosis Dyslipidemia, goal LDL below 70 Other and unspecified hyperlipidemia Hematuria, microscopic Microscopic hematuria Nephrolithiasis Calculus of kidney Hyperuricemia Other abnormal blood chemistry Acquired hypothyroidism Unspecified hypothyroidism Abnormal TSH Other abnormal clinical finding HTN, GOAL BELOW 140/90 Unspecified essential hypertension documented in this encounter Advance Directives * [...] Power of Attor bj? No Care Teams Ob/Gyn Doctor Relationship Specialty Start Date End Date Jennifer Sarkar MD [address] [place] [address] PCP - General Internal Medicine 10/06/20 documented as of this encounter
--- OUTSIDE RECORDS SUMMARY | 2024-04-20 04:03 | External Medical Summary ---
Author Name Unknown Address Unknown Organization K01:[facility] [place] - [address] [address] Laboratory Report Ordering Provider Test Date Status JESSA METZGER 03/14/2024 15:00:07 Final Observation Date Value Abnormality Reference (Units ) Status TSH 03/14/2024 15:00:07 1.22 0.27-4.20 (uIU/mL) Final Performing Location [facility] - [address] [address]
--- OUTSIDE RECORDS SUMMARY | 2024-04-20 04:03 | External Medical Summary | Summary of Care ---
Author Name Unknown Organization [facility] Address [address] [facility] [place] [address] Phone [phone] Care Team Providers Care Home Performance Consultant Name Role Phone Jennifer Sarkar MD Primary Care Provider [phone] Reason for Visit * Reason Onset Date Comments Abnormal Test Results 03/15/2024 Vit D Encounter Details Date Type Department Care Team (Late st Contact Info) Description 03/15/[address] [facility] [address] [place] [phone] Meryl Santiago CRNP [address] [facility] [address] Abnormal Test Results (Vit D) Allergies Active Allergy Reactions Criticality Noted Date Comments Food (See Comments) 03/21/2018 Other reaction(s): WAS TOLD NOT TO TAKE grapefruit Tramadol Other (Please comment) High 10/06/2020 Hallucinations documented as of this encounter (statuses as of 03/22/2024) Medications NITROGLYCERIN 0.4 MG SL SUBLIndications:Old myocardial [...] Active Additional Information Patient taking differently:1,000 mg [id number] PRN, ,may take 3rd dose in between --12/21/2021, Reported on 03/16/2024 Saline Nasal Gel (Nasogel)Indication s:Chronic respiratory failure with hypoxia (HCC),Supplemental oxygen dependent,Nasal septal perforation,Nose dryness Administer into each nostril daily. 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..] as of this encounter (statuses as of 03/22/2024) Resolved Problems Problem Noted Date Diagnosed Date [...] and draped in usual sterile manner. 14 Georgian flexible cystoscope inserted into urethra and guided [...] as of this encounter (statuses as of 03/22/2024) Immunizations Name Administration Dates Next Due COVID-19 mRNA, LNP-s, No Pre serve, 2-Dose Series ([email or web address]) 05/14/2020,04/18/2020 Covid-19, Mrna, Lnp-s, Pf, B ivalent, [...] Industry Job Start Date Job End Date [employer] Not on file Not on file [...] unable to get Prolia due to the [id number] cost. Advised me to contact his daughter to discuss Prolia further. documented in this encounter Plan of Treatment Upcoming Encounters Date Type Department Care Team (Late st Contact Info) Description 04/18/2024 3:30 PM EST Procedure Only Urology, [facility] [address] [facility] [place] [address] Man Gu MD [address] [place] [address] 05/14/2024 12:00 PM EDT Office Visit Pulmonary Medicine, [facility] [address] [facility] [place] [address] Bashir Harding [facility] [address] [facility] [address] 06/07/2024 2:00 PM EDT Office Visit Dermatology, Lilia Pérez [address] [place] [phone] Gypsy Mujica PA-C [address] [place] [address] [place] [address] 06/19/2024 10:30 AM EDT Office Visit Orthopaedics [facility] [address] [place] [phone] Ely Cabrales MD [address] [place] [phone] 07/11/2024 3:00 PM EDT Office Visit General Internal Medicine [facility] [address] [facility] [place] [address] Jennifer Sarkar MD 200 [facility] [place] [address] Scheduled Procedures Name Priority Associated Diagnoses [...] D LEVEL ONCE IN A LIFETIME-USE SMARTSET# [id number] Completed 03/14/2024, 10/20/2023, 08/17/2023, Additional history exists [...] this encounter Medical Devices Implanted Type Area Capsule Filler Device Identifier Shelf Expiration Date Model / Serial / Lot Lens Intraoc 23.0 - [id number] - [id number] Implanted:Qty: 1 on 12/21/2016 by Raj Bernard MD at OR [facility] Left: Eye BAUSCH & LOMB 06/20/2021 [id number] / [id number] / Lens Intraoc 22.0 - [id number] - [id number] Implanted:Qty: 1 on 01/06/2017 by Raj Bernard MD at OR [facility] Right: Eye BAUSCH & LOMB 08/20/2021 [id number] / [id number] / [id number] documented as of this encounter Advance Directives [...] of Attor bj? No Care Teams Home Performance Consultant Relationship Specialty Start Date End Date Jennifer Sarkar MD [address] [place] [address], [place] [address] PCP - General Internal Medicine 10/06/20 documented as of this encounter
--- OUTSIDE RECORDS SUMMARY | 2024-04-20 04:03 | External Medical Summary | Summary of Care ---
Author Name Unknown Organization [facility] Address [address] [place] [address] Phone [phone] Care Team Providers Care Material Crew Supervisor Name Role Phone Jennifer Sarkar MD Primary Care Provider [phone] Reason for Visit * Reason Comments Follow Up Encounter Details Date Type Department Care Team (Late st Contact Info) Description 03/16/2024 2:00 PM EST Office Visit Cardiology, [facility] [address] [place] [address] Job Bravo PA-C [address] [place] [address] Chronic right-sided heart failure (HCC)*; Dyslipidemia, goal LDL below 70; Old myocardial infarct; Coronary artery disease involving timbi-sha shoshone coronary artery of timbi-sha shoshone heart without angina pectoris; HTN, goal below 140/90; Bilateral leg edema; Encounter for monitoring diuretic therapy Allergies Active Allergy Reactions Criticality Noted Date Comments Food (See Comments) 03/21/2018 Other reaction(s): WAS TOLD NOT TO TAKE grapefruit Tramadol Other (Please comment) High 10/06/2020 Hallucinations documented as of this encounter (statuses as of 03/16/2024) Medications NITROGLYCERIN 0.4 MG SL SUBLIndications:Ol d [...] Active Additional Information Patient taking differently:1,000 mg VelkW0U PRN, ,may take 3rd dose in between [...] before bedtime. 270 Tablet 3 024 Active Levothyroxine Sodium 112 MCG Oral Tablet (Levoxyl)Indicatio ns:Acquired hypothyroidism TAKE 1 TABLET BY MOUTH IN THE MORNING. (AT LEAST 30 MIN PRIOR TO BREAKFAST OR OTHER MEDS) 90 Tablet 1 024 Active Pantoprazole Sodium 20 MG Oral [...] Oral Tablet (Lasix)Indications :Coronary artery disease involving timbi-sha shoshone coronary artery of timbi-sha shoshone heart without angina pectoris,Chronic right-sided heart failure (HCC),Bilateral leg edema,Encounter for monitoring diuretic therapy Take 1 Tablet by mouth 2 times a day. 025 Active Spironolactone 25 MG Oral Tablet (Aldactone) Take 0.5 Tablets by mouth once a day on Tuesday, Tuesday, and Tuesday only. 13 Tablet 5 025 Active Furosemide 40 MG Oral Tablet (Lasix)Indications :Coronary artery disease involving timbi-sha shoshone coronary artery of timbi-sha shoshone heart without angina pectoris,Chronic right-sided heart failure (HCC),Bilateral leg edema,Encounter for monitoring diuretic therapy 40 mg in the AM and 20 mg in the early afternoon 135 Tablet 3 024 03/16 Discontinued documented as of this encounter (statuses as of 03/16/2024) Active Problems Problem Noted Date Diagnosed Date Hypercalcemia 12/03/2022 Supplemental oxygen dependent 05/06/2022 Nasal septal perforation 05/06/2022 Chronic respiratory failure with hypoxia 022 Granulomatous lung disease 09/18/2021 Chronic rhinitis 06/10/2021 Schatzki's ring of distal esophagus 06/10/2021 Chronic right-sided heart failure 04/08/2020 Coronary artery disease invo lving timbi-sha shoshone coronary artery of timbi-sha shoshone heart without angina pectoris 11/21/2018 Abnormality of [...] mRNA, LNP-s, No Pre serve, 2-Dose Series ([id number]) 05/14/2020,04/18/2020 Covid-19, Mrna, Lnp-s, Pf, B ivalent, 30 Mcg, IM, 12 yrs and above ([id number]) 07/01/2023 H1N1 2009 Influenza, IM 04/22/2009 PPD [...] Industry Job Start Date Job End Date [employer] Not on file Not on file Not on file documented as of this encounter Last Filed Vital Signs Vital Sign Reading Time Taken Comments Blood Pressure 132/80 03/16/2024 2:03 PM EST Pulse 76 03/16/2024 2:03 PM EST Temperature - - Respiratory Rate 22 03/16/2024 2:03 PM EST Oxygen Saturation 90% 03/16/2024 2:03 PM EST 3 LPM NC Inhaled Oxygen Concentration - - Weight 75.9 kg (167 lb 4 oz) 03/16/2024 2:03 PM EST Height - - Body Mass Index 27.83 01/11/2024 4:03 PM EST documented in this encounter Progress Notes * Job Bravo PA-C - 03/16/2024 2:09 PM EST History of Present Illness: Fabian Starks is a 83 year old male here followed by Dr. Ramirez, returning to [facility] for routine cardiology follow-up Notes good days and bad days Breathing "becomes an issue when doing something I might not should have been doing." Supplemental oxygen, 3 L/min via NC, . "If I keep this stomach sort of soft then it's not pushing on my lungs." Left greater than right lower extremity edema improved since increase furosemide to 40 BID in earlyto mid January, also using compression stockings now that he got for . Yesterday was the first day he was at the diner since . Dizziness aided by as needed meclizine. Ambulatory dysfunction, utilizing a walker The left rotator cuff is "shot" and the right one is "half shot." No chest pain, tachypalpitations, orthopnea, PND, syncope, melena or hematochezia. History: Atherosclerotic coronary disease, status post acute thrombotic left anterior descending occlusion treated with stenting with bare metal stent, September 2008. Hypertension. Hyperlipidemia. Asthmatic lung disease with severe obstructive sleep apnea (untreated) and restrictive component secondary to chronically elevated right hemidiaphragm, nocturnal O2 dependent, retired [employer] Work[employer] Severe thoracolumbar scoliosis Chronic peripheral edema/right heart [...] with delayed healing Coronary artery disease involving timbi-sha shoshone coronary artery of timbi-sha shoshone heart without angina pectoris Abnormality of gait Chronic right-sided heart failure (HCC) Chronic rhinitis Schatzki's ring of distal esophagus Granulomatous lung disease (HCC) Chronic respiratory failure with hypoxia (HCC) Supplemental oxygen dependent Nasal septal perforation Hypercalcemia Past Medical History: Diagnosis Date Acquired hypothyroidism ANGIOPLASTY WITH CORONARY STENT TO LAD - bare Metal 10/16/2008 Calculus of ureter 04/01/2005 Chronic respiratory failure with hypoxia ([facility]) 11/14/2021 Chronic right-sided heart failure (HCC) 04/08/2020 Coronary artery disease involving timbi-sha shoshone coronary artery of timbi-sha shoshone heart without angina pectoris 11/21/2018 Dyslipidemia, goal [...] performed by ANSHU FOFANA at [facility] COLONOSCOPY W/ LESION REMOVAL, SNARE 02/01/2007 repeat in 5-10 yrs COLONOSCOPY, DIAGNOSTIC (RECTUM) 06/03/2017 adenomatous polyp, repeat 5 yrs/[facility] CYSTOSCOPY 03/30/2005 stent removal EGD, FLEXIBLE, DIAGNOSTIC 11/24/2012 UPPER GI ENDOSCOPY DIAGNOSTIC performed by Nakia Benton DO at [facility] EGD, FLEXIBLE, DIAGNOSTIC 07/15/2015 becca Perez /[facility] EGD, FLEXIBLE, DIAGNOSTIC 03/21/2018 erosive gastropathy, tortous esophagus, Clemente beltran/[facility] EGD, FLEXIBLE, DIAGNOSTIC 08/21/2021 sm hiatal hernia / [facility] FRAGMENT KIDNEY STONE BY SHOCK WAVE 03/26/2005 ESWL (Extracorporeal Shock Wave Lithotripsy) INFORMATION bilateral hernia repair REMOVAL OF TONSILS, UNDER AGE 12 REMOVE CATARACT, INSERT LENS PROSTH Left 12/21/2016 left EXTRACAPSULAR CATARACT REMOVAL WITH INTRAOCULAR LENS performed by Raj Bernard MD at [facility] REMOVE CATARACT, INSERT LENS PROSTH Right 01/06/2017 [...] level: Not on file Occupational History Occupation: [employer] Employer: [employer] Comment: 30 yrs Social Needs Financial [...] mouth in the morning. 60 Tablet 5 No current facility-administered medications for this visit. PHYSICAL EXAMINATION: BP 132/80 (BP Site: Left Arm, BP Position: Sitting, BP Cuff Size: Large) | Pulse 76 | Resp 22 | Wt 75.9 kg (167 lb 4 oz) | SpO2 90% Comment: 3 LPM NC | BMI 27.83 kg/m | BSA 1.87 m General: A&Ox3. NAD HEENT: Normocephalic. Atraumatic. Neck: No carotid bruits. No JVD Lungs: Diminished. Decreased. No abnormal breath sounds appreciated. Heart: RRR. No audible murmur Abdomen: +BS. + Umbilical hernia. Somewhat firm. No organomegaly. Extremities: Trace to 1+ edema [...] hypervolemia. Reduction in dietary sodium discussed. Continue furosemide 40 mg BID. Add spironolactone 12.5 mg only on MWF. Check a basic metabolic panel in 10-14 days. ASCVD. Seemingly stable. Continue appropriate medical management. Ventricular ectopy. Asymptomatic. Continue beta-james therapy with propanolol as past attempts with alternatives beta-james therapy resulted in worsening tremor. Hypertension. Blood pressure acceptably controlled Dyslipidemia. LDL 62 mg/dL on 12/20/2023. Asthmatic lung disease with severe obstructive sleep apnea (untreated) and restrictive component secondary to chronically elevated right hemidiaphragm, O2 dependent. Continued oxygen use encouraged. Continue follow-up with Pulmonary Medicine. Ambulatory dysfunction. Walker use encouraged. Routine cardiology follow-up in 4-6 months or as needed. ER with emergencies Job Bravo PA-C Department of Cardiology I spent a total of 30-39 minutes (exact time 35 mins) on the date of service in preparation, delivery, and documentation of the care provided to Fabian Starks excluding any time spent in the performance of separately billed services. This visit involved medical care services related to at least oneserious condition or complex condition requiring ongoing care. This chart was completed in part util [employer] Speech Voice Recognition Software. Grammatical errors, random [...] documented in this encounter Nursing Notes * Mayra Celestin CMA - 03/16/2024 1:52 PM EST Examination Room: 1 Name: Fabian Starks Date of : (1940). Reason for Visit: 7M f/u Interim Hospitalization(s): [facility] Oct 2023 dizziness Problems/Concerns: Dizzy spells - uses meclizine. Minimal LE swelling at this time - wearing compression socks. Chest Pain/SOB: Denies CP or unusual SOB. [facility] Discussed: Not applicable My [facility] is a way you can talk to [...] Care Team (Late st Contact Info) Description 03/21/2024 10:30 AM EST Office Visit Orthopaedics [facility] 132 [facility] [place] [phone] Ely Cabrales MD 132 [facility] [place] [phone] 04/18/2024 3:30 PM EST Procedure Only Urology, [facility] 132 [facility] [place] [address] Man Gu MD 27 [facility] [place] [phone] 05/14/2024 12:00 PM EDT Office Visit Pulmonary Medicine, [facility] 132 [facility] [place] [address] Bashir Harding MD [address] [facility] [address] 06/07/2024 2:00 PM EDT [facility] [address] [facility] [place] [phone] Gypsy Mujica PA-C [address] [place] [address] [place] [address] 07/11/2024 3:00 PM EDT Office Visit General Internal Medicine [employer] 200 [facility] [place] [address] Jennifer Sarkar MD 200 [facility] [place] [address] Scheduled Orders Name Type Priority Associated Diagnoses Orde r Schedule BASIC METABOLIC PANEL Lab Routine Chronic right-sided heart failure (HCC) Expected: 03/30/2024, Expires: 03/16/2025 Scheduled Procedures Name Priority Associated Diagnoses Date/Ti [...] D LEVEL ONCE IN A LIFETIME-USE SMARTSET# [id number] Completed 03/14/2024, 10/20/2023, 08/17/2023, Additional history exists [...] this encounter Medical Devices Implanted Type Area Heel Curver Device Identifier Shelf Expiration Date Model / Serial / Lot Lens Intraoc 23.0 - [id number] - [id number] Implanted:Qty: 1 on 12/21/2016 by Raj Bernard MD at OR [facility] Left: Eye BAUSCH & LOMB 06/20/2021 [id number] / [id number] / Lens Intraoc 22.0 - [id number] - [id number] Implanted:Qty: 1 on 01/06/2017 by Raj Bernard MD at OR [facility] Right: Eye BAUSCH & LOMB 08/20/2021 [id number] / [id number] / [id number] documented as of this encounter Visit Diagnoses Diagnosis Chronic right-sided heart failure (HCC)- Primary Congestive heart failure, unspecified Dyslipidemia, goal LDL below 70 Other and unspecified hyperlipidemia Old myocardial infarct Old myocardial infarction Coronary artery disease involving timbi-sha shoshone coronary artery of timbi-sha shoshone heart without angina pectoris HTN, goal below 140/90 Unspecified essential hypertension Bilateral leg edema Edema Encounter for monitoring [...] Power of Attor bj? No Care Teams Material Crew Supervisor Relationship Specialty Start Date End Date Jennifer Sarkar MD 200 [place] [address] PCP - General Internal Medicine 10/06/20 documented as of this encounter
--- OUTSIDE RECORDS SUMMARY | 2024-04-20 04:03 | External Medical Summary | Summary of Care ---
Author Name Unknown Organization [facility] Address [address] [facility] [place] [address] Phone [phone] Care Team Providers Care Windmill Mechanic Name Role Phone Jennifer Sarkar MD Primary Care Provider Reason for Visit * Reason Onset Date Comments Test Results 03/15/2024 Encounter Details Date Type Department Care Team (Late st Contact Info) Description 03/15/2024 Telephone Nephrology, [place] 200 [place] [address] Yumiko Philippe MD 200 [place] [address] Test Results Allergies Active Allergy Reactions Criticality Noted Date Comments Food (See Comments) 03/21/2018 Other reaction(s): WAS TOLD NOT TO TAKE grapefruit Tramadol Other (Please comment) High 10/06/2020 Hallucinations documented as of this encounter (statuses as of 03/19/2024) Medications NITROGLYCERIN 0.4 MG SL SUBLIndications:Ol d [...] Active Additional Information Patient taking differently:1,000 mg QiazS8B PRN, ,may take 3rd dose in between [...] Oral Tablet (Lasix)Indications :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,Chronic right-sided heart failure (HCC),Bilateral leg edema,Encounter for monitoring diuretic therapy 40 mg in the AM and 20 mg in the early afternoon 135 Tablet 3 024 03/16 Discontinued documented as of this encounter (statuses as of 03/19/2024) Active Problems Problem Noted Date Diagnosed Date Hypercalcemia 12/03/2022 Supplemental oxygen dependent 05/06/2022 Nasal septal perforation 05/06/2022 Chronic respiratory failure with hypoxia 022 Granulomatous lung disease 09/18/2021 Chronic rhinitis 06/10/2021 Schatzki's ring of distal esophagus 06/10/2021 Chronic right-sided heart failure 04/08/2020 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 14 Nigerian flexible cystoscope inserted into urethra and guided into bladder under direct vision. Findings :normal bladder mucosa, normal anatomical position of ureteral orifices.Ureteral stent removed completely Calculus of ureter 04/01/2005 8 ADVANCE DIRECTIVE INFORMATION 07/27/2004 07/21/2016 Overview (07/27/2004): Patient does not have an advanced directive. Patient given information booklet. Bacterial pneumonia 07/31/2002 09/17/19 16 Depression with anxiety 11/18/2000 10/02/2017 HYPERTENSION NOS 01/13/2009 Overview (01/13/2009): Modified per HTN protocol #16. Screening for prostate cancer 01/03/2007 Asthma, allergic 04/22/2009 Osteoporosis 02/24/2017 documented as of this encounter (statuses as of 03/19/2024) Immunizations Name Administration Dates Next Due COVID-19 mRNA, LNP-s, No Pre serve, 2-Dose Series ([employer]) 05/14/2020,04/18/2020 Covid-19, Mrna, Lnp-s, Pf, B ivalent, 30 Mcg, IM, 12 yrs and above ([employer]) 07/01/2023 H1N1 2009 Influenza, IM 04/22/2009 PPD [...] Industry Job Start Date Job End Date [employer] Not on file Not on file Not on file documented as of this encounter Miscellaneous Notes * Telephone Encounter - Yuliet Winters LPN - 03/15/2024 2:50 PM EST Rx pended please approve * Telephone Encounter - Yuliet Winters LPN - 03/15/2024 2:29 PM EST Spoke with Pt he is made aware his uric acid level is elevated and Dr Philippe wishes him to start Allopurinol 200 mg every morning Pt request this rx to [facility] Pt will be having this medication [...] only to be repeated in april at [facility] appt-, other labs 2-5d before appt with [...] only to be repeated in april at [facility] appt-, other labs 2-5d before appt with me in June ----- Message ----- From: Yuimko Philippe MD Sent: 03/15/2024 12:45 PM EST [...] 03/21/2024 10:30 AM EST Office Visit Orthopaedics [facility] 132 [facility] [place] [phone] Ely Cabrales MD 132 [facility] [place] [phone] 04/18/2024 3:30 PM EST Procedure Only Urology, [facility] 132 [facility] [place] [address] Man Gu MD [address] [place] [id number] 05/14/2024 12:00 PM EDT Office Visit Pulmonary Medicine, [facility] 132 [facility] [place] [address] Bashir Harding MD [address] [facility] [place] [address] 06/07/2024 2:00 PM EDT Office [facility] 226 [facility] [place] [phone] Gypsy Mujica PA-C [address] [place] [address] [place] [phone] 07/11/2024 3:00 PM EDT Office Visit General Internal Medicine [place] 200 [place] [address] Jennifer Sarkar MD 200 [facility] [place] [address] Scheduled Procedures Name Priority Associated Diagnoses Date/Ti [...] D LEVEL ONCE IN A LIFETIME-USE SMARTSET# [id number] Completed 03/14/2024, 10/20/2023, 08/17/2023, Additional history exists [...] this encounter Medical Devices Implanted Type Area Terminologist Device Identifier Shelf Expiration Date Model / Serial / Lot Lens Intraoc 23.0 - [id number] - [id number] Implanted:Qty: 1 on 12/21/2016 by aRj Bernard MD at OR [facility] Left: Eye BAUSCH & LOMB 06/20/2021 [id number] / [id number] / Lens Intraoc 22.0 - [id number] - [id number] Implanted:Qty: 1 on 01/06/2017 by Raj Bernard MD at OR [facility] Right: Eye BAUSCH & LOMB 08/20/2021 [id number] / [id number] / [id number] documented as of this encounter Advance Directives [...] Power of Attor bj? No Care Teams Windmill Mechanic Relationship Specialty Start Date End Date Jennifer Sarkar MD [address] [place] [address] PCP - General Internal Medicine 10/06/20 documented as of this encounter
--- OUTSIDE RECORDS SUMMARY | 2024-04-20 04:03 | External Medical Summary | Summary of Care ---
Author Name Unknown Organization [facility] Address [address] [facility] [place] [address] Phone [phone] Care Team Providers Care Press Officer Name Role Phone Jennifer Sarkar MD Primary Care Provider [phone] Reason for Visit * Reason Onset Date Comments Test Results 02/24/2024 Encounter Details Date Type Department Care Team (Late st Contact Info) Description 02/24/2024 Telephone Nephrology, [place] 200 [place] [address] Yumiko Philippe MD 200 [facility] [place] [address] Test Results Allergies Active Allergy Reactions Criticality Noted Date Comments Food (See Comments) 03/21/2018 Other reaction(s): WAS TOLD NOT TO TAKE grapefruit Tramadol Other (Please comment) High 10/06/2020 Hallucinations documented as of this encounter (statuses as of 02/27/2024) Medications NITROGLYCERIN 0.4 MG SL SUBLIndications:Old myocardial [...] Active Additional Information Patient taking differently:1,000 mg DiwmR5I PRN, ,may take 3rd dose in between --12/21/2021, Reported on 01/11/2024 Saline Nasal Gel (Nasogel)Indication s:Chronic respiratory failure with hypoxia (HCC),Supplemental oxygen dependent,Nasal septal perforation,Nose dryness Administer into each nostril daily. For dryness(nasal septal perforation) 14 g 05/07/19 23 Active oxygen 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:Area Representative jonathan respiratory failure with hypoxia (HCC),Chronic right-sided [...] Oral Tablet (Lasix)Indications: Coronary artery disease involving [place] coronary artery [...] as of this encounter (statuses as of 02/27/2024) Active Problems Problem Noted Date Diagnosed Date [...] as of this encounter (statuses as of 02/27/2024) Resolved Problems Problem Noted Date Diagnosed Date [...] as of this encounter (statuses as of 02/27/2024) Immunizations Name Administration Dates Next Due COVID-19 mRNA, LNP-s, No Pre serve, 2-Dose Series (Glamit) 05/14/2020,04/18/2020 Covid-19, Mrna, Lnp-s, Pf, B ivalent, [...] Industry Job Start Date Job End Date [employer] Not on file Not on file Not on file documented as of this encounter Miscellaneous Notes * Telephone Encounter - Pippa Ryan RN - 02/27/2024 10:32 AM EST TE with pt regarding stable lab results. He is planning to complete other labs when he goes to cardiology. * Telephone Encounter - Pippa Ryan RN - 02/24/2024 11:09 AM EST LMAM with call back number regarding test results. * Telephone Encounter - Pippa Ryan RN - 02/24/2024 11:07 AM EST ----- Message from Yumiko Philippe MD sent at 02/20/2024 5:15 PM EST ----- Kidney labs stable; I had asked for uric acid level but does not appear this was done. 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 Plan of Treatment Upcoming Encounters Date Type Department Care Team (Late st Contact Info) Description 03/16/2024 2:00 PM EST Office Visit Cardiology, [facility] 132 [facility] [place] [address] Job Bravo PA-C 132 [facility] [place] [address] 03/21/2024 10:30 AM EST Office Visit Orthopaedics [facility] [address] [facility] [place] [address] Ely Cabrales MD 132 [facility] [place] [address] 04/18/2024 3:30 PM EST Procedure Only Urology, [facility] [address] [facility] [place] [address] Man Gu MD [address] [place] [id number] 05/14/2024 12:20 PM EDT Office Visit Pulmonary Medicine, [facility] 132 [facility] [place] [address] Bashir Harding MD [address] [place] [id number] 06/07/2024 2:00 PM EDT Office Visit Dermatology, [address] [place] [address] Gypsy Mujica PA-C [address] [place] [address] [place] [address] 07/11/2024 3:00 PM EDT Office Visit General Internal Medicine [facility] 200 [facility] [place] [address] Jennifer Sarkar MD 200 [facility] [place] [address] Scheduled Procedures Name Priority Associated Diagnoses Date/Ti [...] D LEVEL ONCE IN A LIFETIME-USE SMARTSET# 13796 Completed 10/20/2023, 08/17/2023, 12/01/2022, Additional history exists [...] this encounter Medical Devices Implanted Type Area Director Client Services Device Identifier Shelf Expiration Date Model / Serial / Lot Lens Intraoc 23.0 - [id number] - [id number] Implanted:Qty: 1 on 12/21/2016 by Raj Bernard MD at OR [facility] Left: Eye BAUSCH & LOMB 06/20/2021 [id number] / [id number] / Lens Intraoc 22.0 - [id number] - [id number] Implanted:Qty: 1 on 01/06/2017 by Raj Bernard MD at OR [facility] Right: Eye BAUSCH & LOMB 08/20/2021 [id number] / [id number] / [id number] documented as of this encounter Advance Directives [...] of Attor bj? No Care Teams Press Officer Relationship Specialty Start Date End Date Jennifer Sarkar MD 200 [place] [address] PCP - General Internal Medicine 10/06/20 documented as of this encounter
--- OUTSIDE RECORDS SUMMARY | 2024-04-20 04:04 | External Medical Summary | Summary of Care ---
Author Name Unknown Organization [facility] Address [address] [facility] [place] [address] Phone [phone] Care Team Providers Care Business Analysis Analyst Name Role Phone Jennifer Sarkar MD Primary Care Provider Reason for Visit * Reason Onset Date Comments Test Results 02/21/2024 Encounter Details Date Type Department Care Team (Late st Contact Info) Description 02/21/2024 Telephone Nephrology, [place] 200 [facility] [place] [address] Yumiko Philippe MD 200 [facility] [place] [address] Test Results Allergies Active Allergy Reactions Criticality Noted Date Comments Food (See Comments) 03/21/2018 Other reaction(s): WAS TOLD NOT TO TAKE grapefruit Tramadol Other (Please comment) High 10/06/2020 Hallucinations documented as of this encounter (statuses as of 02/21/2024) Medications NITROGLYCERIN 0.4 MG SL SUBLIndications:Old myocardial [...] Active Additional Information Patient taking differently:1,000 mg GepuW8Z PRN, ,may take 3rd dose in between --12/21/2021, Reported on 01/11/2024 Saline Nasal Gel (Nasogel)Indication s:Chronic respiratory failure with hypoxia (HCC),Supplemental oxygen dependent,Nasal septal perforation,Nose dryness Administer into each nostril daily. 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 30 Tablet 01/11/20 24 Active documented as of this encounter (statuses as of 02/21/2024) Active Problems Problem Noted Date Diagnosed Date Hypercalcemia 12/03/2022 Supplemental oxygen dependent 05/06/2022 Nasal septal perforation 05/06/2022 Chronic respiratory failure with hypoxia 022 Granulomatous lung disease 09/18/2021 Chronic rhinitis 06/10/2021 Schatzki's ring of distal esophagus 06/10/2021 Chronic right-sided heart failure 04/08/2020 Coronary artery disease invo lving [place] coronary artery of [place] heart without angina pectoris 11/21/2018 Abnormality of [...] as of this encounter (statuses as of 02/21/2024) Resolved Problems Problem Noted Date Diagnosed Date [...] and draped in usual sterile manner. 14 Ghanaian flexible cystoscope inserted into urethra and guided [...] as of this encounter (statuses as of 02/21/2024) Immunizations Name Administration Dates Next Due COVID-19 mRNA, LNP-s, No Pre serve, 2-Dose Series (Zoji) 05/14/2020,04/18/2020 Covid-19, Mrna, Lnp-s, Pf, B ivalent, 30 Mcg, IM, 12 yrs and above (Zoji) 07/01/2023 H1N1 2009 Influenza, IM 04/22/2009 PPD [...] Industry Job Start Date Job End Date [place] [employer] Not on file Not on file Not on file documented as of this encounter Miscellaneous Notes * Telephone Encounter - Pippa Ryan RN - 02/21/2024 9:11 AM EST LMAM with call back number. 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 documented in this encounter Plan of Treatment Upcoming Encounters Date Type Department Care Team (Late st Contact Info) Description 03/16/2024 2:00 PM EST Office Visit Cardiology, [facility] 132 [facility] [place] [address] Job Bravo PA-C 132 [facility] [place] [address] 03/21/2024 10:30 AM EST Office Visit Orthopaedics [facility] 132 [facility] [place] [address] Ely Cabrales MD 132 [facility] [place] [address] 04/18/2024 3:30 PM EST Procedure Only Urology, [facility] 132 [facility] [place] [address] Man Gu MD [address] [place] [id number] 05/14/2024 12:20 PM EDT Office Visit Pulmonary Medicine, [facility] 132 [facility] [place] [address] Bashir Harding MD [address] [facility] [address] 06/07/2024 2:00 PM EDT Office Visit Dermatology, [address] [place] [address] Gypsy Mujica PAJogreC [address] [place] [address] [place] [address] 07/11/2024 3:00 PM EDT Office Visit General Internal Medicine [facility] 200 [facility] [place] [address] Jennifer Sarkar MD [address] [place] [address] Scheduled Procedures Name Priority Associated Diagnoses Date/Ti [...] D LEVEL ONCE IN A LIFETIME-USE SMARTSET# 75962 Completed 10/20/2023, 08/17/2023, 12/01/2022, Additional history exists [...] this encounter Medical Devices Implanted Type Area Electrician Rectifier Maintenance Device Identifier Shelf Expiration Date Model / Serial / Lot Lens Intraoc 23.0 - [id number] - [id number] Implanted:Qty: 1 on 12/21/2016 by Raj Bernard MD at OR [facility] Left: Eye BAUSCH & LOMB 06/20/2021 [id number] / [id number] / Lens Intraoc 22.0 - [id number] - [id number] Implanted:Qty: 1 on 01/06/2017 by Raj Bernard MD at OR [facility] Right: Eye BAUSCH & LOMB 08/20/2021 [id number] / [id number] / [id number] documented as of this encounter Advance Directives [...] of Attor bj? No Care Teams Business Analysis Analyst Relationship Specialty Start Date End Date Jennifer Sarkar MD 200 [place] [address] PCP - General Internal Medicine 10/06/20 documented as of this encounter
--- OUTSIDE RECORDS SUMMARY | 2024-04-20 04:04 | External Medical Summary | Summary of Care ---
Author Name Unknown Organization [facility] Address [address] [facility] [place] [address] Phone [phone] Care Team Providers Care Clicking Machine Operator Name Role Phone Jennifer Sarkar MD Primary Care Provider [phone] Reason for Visit * Reason Onset Date Comments Home Health 02/02/2024 Encounter Details Date Type Department Care Team (Late st Contact Info) Description 02/02/2024 Telephone General Internal Medicine [facility] 200 [facility] [place] [address] Jennifer Sarkar MD 200 [place] [address] Home Health Allergies Active Allergy Reactions Criticality [...] Active Additional Information Patient taking differently:1,000 mg PwjdY1P PRN, ,may take 3rd dose in between [...] Tablet 1 02/12/20 23 Active oxygen 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: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 (HCC),Chronic right-sided [...] Oral Tablet (Lasix)Indications: Coronary artery disease involving [place] coronary artery of [place] heart without angina pectoris,Chronic right-sided heart failure [...] failure 04/08/2020 Coronary artery disease invo lving [place] coronary artery of [place] heart without angina pectoris 11/21/2018 Abnormality of [...] mRNA, LNP-s, No Pre serve, 2-Dose Series ([place] to the [place]) 05/14/2020,04/18/2020 Covid-19, Mrna, Lnp-s, Pf, B ivalent, [...] Industry Job Start Date Job End Date [place] [employer] Not on file Not on file Not on file documented as of this encounter Miscellaneous Notes * Telephone Encounter - Sharona Mehta LPN - 02/20/2024 3:52 PM EST KORIN Randall from [facility] is calling. Made her aware of message from Job Bravo PA-C. Reports that the pt's edema and breathing improved. Weight is stable at 164.8 lbs. Believes that the 40 mg of Furosemide has greatly helped. Does not think the Spironolactone is needed at this time added unless pt would regress/not improve. WNII. * Telephone Encounter - Phillip Hess LPN - 02/20/2024 1:23 PM EST Called patient and left a detailed message on an identified voicemail to make patient aware. Awaiting call back. * Telephone Encounter - Job Bravo PA-C - 02/20/2024 12:47 PM EST Potassium on the lower side of normal at 3.7. Sodium normal (137). BUN and creatinine normal at 17 and 0.97. Bicarb normal at 32. If ongoing decompensation/fluid retention observed would add low-dose spironolactone - 12.5 mg by mouth only on Mondays, Wednesdays, and Fridays. Continue furosemide of 40 mg twice per day No vumf-tcz-nnbkcvo potassium, multivitamin, salt substitute, or NSAIDs. Repeat basic metabolic panel 1 week after starting spironolactone. Keep cardiology follow-up as scheduled on 03/16/2024. Job Bravo PA-C Department of Cardiology * Telephone Encounter - Jennifer Sarkar MD - 02/20/2024 11:40 AM EST Pt had lab 02/13/24 for Elizabeth. Job --pl review and advice HH nurse to let cardiology know of his edema and symptom status * Telephone Encounter - Gala Valentino OSA - 02/09/2024 9:42 AM EST Pt did not want to schedule because he does not see cardio until 03-16 this would be a check up to make sure everything is goingokay following up between his cardio apt He said he dose not want to be seen around the holidays I asked him to call us when he was ready toschedule. I will call pt back after the holidays to see if he would like to schedule * Telephone Encounter - Hugh Mantilla RN - 02/07/2024 3:34 PM EST Called and spoke with Cathie nurse from [facility] Home Health and informed her of Jerri's and Byron's previous message. She verbalized understanding of all information. She asked if they should schedule another check with the nurse this week. Said ok to have nurse check on the patient again this week. She said they will cancel the nurse check if patient is seen in the office. Scheduling: Please schedule patient for an appointment in PCP's office, first available any provider. Thank you. WINI. * Telephone Encounter - Jerri Infante PA-C - 02/06/2024 12:33 PM EST Please let [facility] know as below If no sooner appt, needs to see int med If lasix not working, then needs er Jerri Infante PA-C 02/06/2024 12:33 PM * Telephone Encounter - Byron Otoole OSA - 02/06/2024 11:14 AM EST Currently we have no sooner appts patient has been placed on the wait list. * Telephone Encounter - Daksha Lynn LPN - 02/06/2024 10:32 AM EST Concerns Tonia LANGLEY, Calling from: [facility] Report/Concerns of: increased weight from last week Symptoms: sob- exertion- minimal Vitals: T 97.1 P 69 RR 18 BP 132/88 SP O2 95 on 3 lpm Lung sounds clear, diminished. Teeny bit of wheezing at the top. Weight 168.2 weight is down a little today. Blood sugar n/a Narrative: KORIN Randall calling from [facility] HH. Asking about the patient. She had called last week and then she never heard back. Informed of Job Bravo's message: Increase furosemide to 40 mg twice per day. Take the first 40 mg first thing in the morning and the second 40 mg in the early afternoon. Check a basic metabolic panel in 7 to 10 days. Move up Cardiology follow-up appointment if willing/able and available. She is changing his pill box. Would like cardiology to call the patient with a sooner appointment. Faxed over order for BMP with confirmed receipt. Call back Tonia with any advice or orders at [phone] Please fax new orders to [facility] Home Health * Telephone Encounter - Linh Gray LPN - 02/03/2024 12:31 PM EST Attempted to call pt, no answer, LMOM * Telephone Encounter - Job Bravo PA-C - 02/02/2024 4:55 PM EST Increase furosemide to 40 mg twice per day. Take the first 40 mg first thing in the morning and thesecond 40 mg in the early afternoon. Check a basic metabolic panel in 7 to 10 days. Move up Cardiology follow-up appointment if willing/able and available. Job Bravo PA-C Department of Cardiology * Telephone Encounter - Jerri Infante PA-C - 02/02/2024 4:30 PM EST Is cardiology willing to address withotu seeing patient? Jerri Infante PA-C * Telephone Encounter - Hugh Mantilla RN - 02/02/2024 4:13 PM EST Called patient and informed him of Jerri's previous message. He verbalized understanding of all information. Patient said he would rather be treated at home, would like cardiology to increase his fluid pill. Patient said he takes 40 mg in the morning and 20 mg in the afternoon of Lasix. Please advise. * Telephone Encounter - Jerri Infante PA-C - 02/02/2024 1:04 PM EST Between the salt intake and the lack of hose, he is filling up with fluid This is going to directly lead to him being admitted unless cardiology is willing to do outpatient diuresis in clinic. Does patient want us to see if that can happen ? ([facility] go to [facility], get iv medication andit would cause him to urinate off the fluid). As he is not listening to the restrictions on sodium and not wearing hose, this could happen fairly often - a few times a month. The other options is admission or seeing ir cardiology will increase his fluid pill. What is his preference? Jerri Infante PA-C 02/02/2024 1:05 PM * Telephone Encounter - Daksha Lynn LPN - 02/02/2024 10:15 AM EST HH Concerns Tonia LANGLEY, Calling from: [facility] Report/Concerns of: lower back pain, weight gain Symptoms: belly is distended, legs little distended, sob Vitals: T 97.3 P 64 RR 18 BP 138/88 SP O2 96 on 3 lpm Lung sounds clear Weight 172.6 was 168 on 01/28/24 and 165 on 01/23 Blood sugar n/a Narrative: Tonia calling from [facility] Patient has more of a weight gain. His abdomen is mildly distended. He does have plus one edema, which is about the same. Definitely more short of breath today. He doesn't wear LINDSAY Hose. He lives by himself and can't get them on. He has not been compliant with thesalt intake and has had too much. Given educational material to read about salt intake. Call back fabian with any advice or orders at [phone] Please fax new orders to [facility] Home Health documented in this encounter Plan of Treatment Upcoming Encounters Date Type Department Care Team (Late st Contact Info) Description 03/16/2024 2:00 PM EST Office Visit Cardiology, [facility] 132 [facility] [place] [address] Job Bravo PA-C [address] [place] [address] 03/21/2024 10:30 AM EST Office Visit Orthopaedics [facility] 132 [facility] [place] [address] Ely Cabrales MD [address] [place] [address] 04/18/2024 3:30 PM EST Procedure Only Urology, [facility] 132 [facility] [place] [address] Man Gu MD [address] [place] [id number] 05/14/2024 12:20 PM EDT Office Visit Pulmonary Medicine, [facility] 132 [facility] [place] [address] Bashir Harding MD [address] [place] [id number] 06/07/2024 2:00 PM EDT Office Visit Dermatology, [address] [place] [address] Gypsy Mujica PA-C [address] [place] [address] [place] [address] 07/11/2024 3:00 PM EDT Office Visit General Internal Medicine [employer] 200 [facility] [place] [address] Jennifer Sarkar MD 200 [facility] [place] [address] Scheduled Procedures Name Priority Associated Diagnoses Date/Ti [...] D LEVEL ONCE IN A LIFETIME-USE SMARTSET# [id number] Completed 10/20/2023, 08/17/2023, 12/01/2022, Additional history exists [...] this encounter Medical Devices Implanted Type Area Talent Acquisition Coordinator Device Identifier Shelf Expiration Date Model / Serial / Lot Lens Intraoc 23.0 - [id number] - [id number] Implanted:Qty: 1 on 12/21/2016 by Raj Bernard MD at OR [facility] Left: Eye BAUSCH & LOMB 06/20/2021 [id number] / [id number] / Lens Intraoc 22.0 - [id number] - [id number] Implanted:Qty: 1 on 01/06/2017 by Raj Bernard MD at OR [facility] Right: Eye BAUSCH & LOMB 08/20/2021 [id number] / [id number] / [id number] documented as of this encounter Advance Directives [...] Power of Attor bj? No Care Teams Clicking Machine Operator Relationship Specialty Start Date End Date Jennifer Sarkar MD 200 [facility] [place] [address] PCP - General Internal Medicine 10/06/20 documented as of this encounter
--- OUTSIDE RECORDS SUMMARY | 2024-04-20 04:04 | External Medical Summary | Summary of Care ---
Author Name Unknown Organization [facility] Address [address] [facility] [place] [address] Phone [phone] Care Team Providers Care Estate Tax Examiner Name Role Phone Jennifer Sarkar MD Primary Care Provider [phone] Reason for Visit * Reason Onset Date Comments Test Results 02/24/2024 Encounter Details Date Type Department Care Team (Late st Contact Info) Description 02/24/2024 Telephone Nephrology, [place] 200 [facility] [place] [address] Yumiko Philippe MD 200 [place] [address] Test Results Allergies Active Allergy Reactions Criticality Noted Date Comments Food (See Comments) 03/21/2018 Other reaction(s): WAS TOLD NOT TO TAKE grapefruit Tramadol Other (Please comment) High 10/06/2020 Hallucinations documented as of this encounter (statuses as of 02/24/2024) Medications NITROGLYCERIN 0.4 MG SL SUBLIndications:Old myocardial [...] Active Additional Information Patient taking differently:1,000 mg [id number] PRN, ,may take 3rd dose in between --12/21/2021, Reported on 01/11/2024 Saline Nasal Gel (Nasogel)Indication s:Chronic respiratory failure with hypoxia (HCC),Supplemental oxygen dependent,Nasal septal perforation,Nose dryness Administer into each nostril daily. 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 (HCC),Chronic right-sided [...] Oral Tablet (Lasix)Indications: Coronary artery disease involving washoe coronary artery of washoe heart without angina pectoris,Chronic right-sided heart failure [...] as of this encounter (statuses as of 02/24/2024) Active Problems Problem Noted Date Diagnosed Date Hypercalcemia 12/03/2022 Supplemental oxygen dependent 05/06/2022 Nasal septal perforation 05/06/2022 Chronic respiratory failure with hypoxia 022 Granulomatous lung disease 09/18/2021 Chronic rhinitis 06/10/2021 Schatzki's ring of distal esophagus 06/10/2021 Chronic right-sided heart failure 04/08/2020 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 14 [place] flexible cystoscope inserted into urethra and guided [...] as of this encounter (statuses as of 02/24/2024) Immunizations Name Administration Dates Next Due COVID-19 mRNA, LNP-s, No Pre serve, 2-Dose Series ([employer]) 05/14/2020,04/18/2020 Covid-19, Mrna, Lnp-s, Pf, B ivalent, [...] Industry Job Start Date Job End Date [place] [employer] Not on file Not on file [...] 03/16/2024 2:00 PM EST Office Visit Cardiology, [facility] 132 [facility] [place] [address] Job Braov PAJorgeC 132 [facility] [place] [address] 03/21/2024 10:30 AM EST Office Visit Orthopaedics [facility] 132 [facility] [place] [address] Ely Cabrales MD 132 [facility] [place] [address] 04/18/2024 3:30 PM EST Procedure Only Urology, [facility] 132 [facility] [place] [address] Man Gu MD [address] [place] [id number] 05/14/2024 12:20 PM EDT Office Visit Pulmonary Medicine, [facility] 132 [facility] [place] [address] Bashir Harding [facility] [address] [facility] [address] 06/07/2024 2:00 PM EDT Office Visit Dermatology, [place] [place] [address] Gypsy Mujica PA-C [address] [place] [address] [place] [address] 07/11/2024 3:00 PM EDT Office Visit General Internal Medicine [facility] [address] Jennifer Sarakr MD 200 [address] [place], [place] [address] Scheduled Procedures Name Priority Associated Diagnoses Date/Ti [...] D LEVEL ONCE IN A LIFETIME-USE SMARTSET# [id number] Completed 10/20/2023, 08/17/2023, 12/01/2022, Additional history exists [...] this encounter Medical Devices Implanted Type Area Miniature Train Driver Device Identifier Shelf Expiration Date Model / Serial / Lot Lens Intraoc 23.0 - [id number] - [id number] Implanted:Qty: 1 on 12/21/2016 by Raj Bernard MD at OR [facility] Left: Eye [employer] 06/20/2021 [id number] / [id number] / Lens Intraoc 22.0 - [id number] - [id number] Implanted:Qty: 1 on 01/06/2017 by Raj Bernard MD at OR [facility] Right: Eye [employer]OM[employer] 08/20/2021 [id number] / [id number] / [id number] documented as of this encounter Advance Directives [...] Power of Attor bj? No Care Teams Estate Tax Examiner Relationship Specialty Start Date End Date Jennifer Sarkar MD 200 [place] [address] PCP - General Internal Medicine 10/06/20 documented as of this encounter
--- OUTSIDE RECORDS SUMMARY | 2024-04-20 04:04 | External Medical Summary | Summary of Care ---
Author Name Unknown Organization [facility] Address [address] [facility] [place] [address] Phone [phone] Care Team Providers Care Aquatic Biologist Name Role Phone Jennifer Sarkar MD Primary Care Provider [phone] Reason for Visit * Reason Comments eRx-Medication Refill Encounter Details Date Type Department Care Team (Late st Contact Info) Description 02/22/2024 Refill General Internal Medicine [facility] 200 [facility] [place] [address] Jennifer Sarkar MD 200 [place] [address] ANGIOPLASTY WITH CORONARY STENT TO LAD - bare Metal Allergies Active Allergy Reactions Criticality Noted Date Comments Food (See Comments) 03/21/2018 Other reaction(s): WAS TOLD NOT TO TAKE grapefruit Tramadol Other (Please comment) High 10/06/2020 Hallucinations documented as of this encounter (statuses as of 02/23/2024) Medications NITROGLYCERIN 0.4 MG SL SUBLIndications:Ol d [...] Active Additional Information Patient taking differently:1,000 mg [id number] PRN, ,may take 3rd dose in between [...] before bedtime. 270 Tablet 3 024 Active Furosemide 40 MG Oral Tablet (Lasix)Indications :Coronary artery disease involving comanche coronary artery of comanche heart without angina pectoris,Chronic right-sided heart failure (HCC),Bilateral leg edema,Encounter for monitoring diuretic therapy 40 mg in the AM and 20 mg in the early afternoon 135 Tablet 3 024 Active Levothyroxine Sodium 112 [...] on the skin daily. 30 Patch 5 Active Additional Information Patient not taking.Reported on 01/11/2024 Meclizine HCl 12.5 MG Oral Tablet (Antivert)Indicati ons:Dizziness,Marco A gn paroxysmal positional vertigo, unspecified laterality Take 1 Tablet by mouth daily as needed for Dizziness. 30 Tablet 024 Active Clopidogrel Bisulfate 75 MG Oral Tablet (pLAVix)Indication s:S/P primary angioplasty with coronary stent TAKE 1 TABLET DAILY 90 Tablet 1 025 Active Clopidogrel Bisulfate 75 MG Oral Tablet (pLAVix)Indication s:S/P primary angioplasty with coronary stent TAKE 1 TABLET DAILY 90 Tablet 1 023 02/22 Discontinued documented as of this encounter (statuses as of 02/23/2024) Active Problems Problem Noted Date Diagnosed Date Hypercalcemia 12/03/2022 Supplemental oxygen dependent 05/06/2022 Nasal septal perforation 05/06/2022 Chronic respiratory failure with hypoxia 022 Granulomatous lung disease 09/18/2021 Chronic rhinitis 06/10/2021 Schatzki's ring of distal esophagus 06/10/2021 Chronic right-sided heart failure 04/08/2020 Coronary artery disease invo lving comanche coronary artery of comanche heart without angina pectoris 11/21/2018 Abnormality of [...] as of this encounter (statuses as of 02/23/2024) Resolved Problems Problem Noted Date Diagnosed Date [...] and draped in usual sterile manner. 14 Uzbek flexible cystoscope inserted into urethra and guided [...] as of this encounter (statuses as of 02/23/2024) Immunizations Name Administration Dates Next Due COVID-19 mRNA, LNP-s, No Pre serve, 2-Dose Series ([employer]) 05/14/2020,04/18/2020 Covid-19, Mrna, Lnp-s, Pf, B ivalent, 30 Mcg, IM, 12 yrs and above (ACTON) 07/01/2023 H1N1 2009 Influenza, IM 04/22/2009 PPD [...] Industry Job Start Date Job End Date [place] [employer] Not on file Not on file Not on file documented as of this encounter Miscellaneous Notes * Telephone Encounter - Cherri Albert RPh - 02/23/2024 7:44 PM EST Signed Prescriptions: Disp Refills Clopidogrel Bisulfate 75 MG Oral Tablet (p*90 Tab*1 Sig: TAKE 1 TABLET DAILYAuthorizing Provider: Tabitha SARKAR User: CHERRI ALBERT documented in this encounter Plan of Treatment Upcoming Encounters Date Type Department Care Team (Late st Contact Info) Description 03/16/2024 2:00 PM EST Office Visit Cardiology, [facility] 132 [facility] [place] [address] Job Bravo PA-C 132 [facility] [place] [address] 03/21/2024 10:30 AM EST Office Visit Orthopaedics [facility] 132 [facility] [place] [address] Ely Cabrales MD 132 [facility] [place] [address] 04/18/2024 3:30 PM EST Procedure Only Urology, [facility] 132 [facility] [place] [address] Man Gu MD [address] [place] [id number] 05/14/2024 12:20 PM EDT Office Visit Pulmonary Medicine, [facility] 132 [facility] [place] [address] Bashir Harding MD [address] [facility] [id number] 06/07/2024 2:00 PM EDT Office Visit Dermatology, Lilia Pérez 226 [facility] [place] [address] Gypsy Mujica PA-C [address] [place] [address] [place] [address] 07/11/2024 3:00 PM EDT Office Visit General Internal Medicine [facility] [address] [place] [address] Jennifer Sarkar MD 200 [place] [address] Scheduled Procedures Name Priority Associated Diagnoses Date/Ti [...] D LEVEL ONCE IN A LIFETIME-USE SMARTSET# 45615 Completed 10/20/2023, 08/17/2023, 12/01/2022, Additional history exists [...] this encounter Medical Devices Implanted Type Area Management Retail Intern Device Identifier Shelf Expiration Date Model / Serial / Lot Lens Intraoc 23.0 - [id number] - [id number] Implanted:Qty: 1 on 12/21/2016 by Raj Bernard MD at OR [facility] Left: Eye [employer]OM[employer] 06/20/2021 [id number] / [id number] / Lens Intraoc 22.0 - [id number] - [id number] Implanted:Qty: 1 on 01/06/2017 by Raj Bernard MD at OR [facility] Right: Eye [employer]OM[employer] 08/20/2021 [id number] / [id number] / [id number] documented as of this encounter Visit Diagnoses Diagnosis ANGIOPLASTY WITH CORONARY STENT TO LAD - [...] Power of Attor bj? No Care Teams Aquatic Biologist Relationship Specialty Start Date End Date Jennifer Sarkar MD [address] [place] [address], [place] [address] PCP - General Internal Medicine 10/06/20 documented as of this encounter
--- OUTSIDE RECORDS SUMMARY | 2024-04-20 04:05 | External Medical Summary | Summary of Care ---
Author Name Unknown Organization [facility] Address [address] [facility] [place] [address] Phone [phone] Care Team Providers Care Cobbler Mckay Name Role Phone Jennifer Sarkar MD Primary Care Provider [phone] Reason for Visit * Reason Onset Date Comments Home Health 02/02/2024 Encounter Details Date Type Department Care Team (Late st Contact Info) Description 02/02/2024 Telephone General Internal Medicine [facility] 200 [place] [address] Jennifer Sarkar MD 200 [place] [address] Home Health Allergies Active Allergy Reactions Criticality Noted Date Comments Food (See Comments) 03/21/2018 Other reaction(s): WAS TOLD NOT TO TAKE grapefruit Tramadol Other (Please comment) High 10/06/2020 Hallucinations documented as of this encounter (statuses as of 02/20/2024) Medications NITROGLYCERIN 0.4 MG SL SUBLIndications:Old myocardial [...] Active Additional Information Patient taking differently:1,000 mg QfemO5M PRN, ,may take 3rd dose in between [...] Tablet 1 02/12/20 23 Active oxygen 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: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 respiratory failure with hypoxia (HCC),Chronic right-sided [...] Oral Tablet (Lasix)Indications: Coronary artery disease involving [place] [...] as of this encounter (statuses as of 02/20/2024) Active Problems Problem Noted Date Diagnosed Date [...] as of this encounter (statuses as of 02/20/2024) Resolved Problems Problem Noted Date Diagnosed Date [...] as of this encounter (statuses as of 02/20/2024) Immunizations Name Administration Dates Next Due COVID-19 mRNA, LNP-s, No Pre serve, 2-Dose Series ([employer]) 05/14/2020,04/18/2020 Covid-19, Mrna, Lnp-s, Pf, B ivalent, [...] Industry Job Start Date Job End Date [employer] [employer] Not on file Not on file Not on file documented as of this encounter Miscellaneous Notes * Telephone Encounter - Jennifer Sarkar MD - 02/20/2024 11:40 AM EST Pt had lab 02/13/[address] [facility]Andersen. [facility] --pl review and advice nurse to let cardiology know of his [...] Called and spoke with Cathie nurse from [facility] and informed her of Jerri's [...] office, first available any provider. Thank you. JOHN. * Telephone Encounter - Jerri Infante PA-C - 02/06/2024 12:33 PM EST Please let [facility] know as below If no sooner appt, needs to see int med If lasix not working, then needs er Jerri Infante PA-C 02/06/2024 12:33 PM * Telephone Encounter - Byron Otoole OSA - 02/06/2024 11:14 AM EST Currently we have no sooner appts patient has been placed on the wait list. * Telephone Encounter - Daksha Lynn LPN - 02/06/2024 10:32 AM EST HH Concerns Tonia LANGLEY, Calling from: [facility] Report/Concerns of: increased weight from last week Symptoms: sob- exertion- minimal Vitals: T 97.1 P 69 RR 18 BP 132/88 SP O2 95 on 3 lpm Lung sounds clear, diminished. Teeny bit of wheezing at the top. Weight 168.2 weight is down a little today. Blood sugar n/a Narrative: Tonia, RN calling from [facility]. Asking about the patient. She had called [...] Tonia with any advice or orders at [phone] Please fax new orders to [facility] * Telephone Encounter - Linh [...] Department of Cardiology * Telephone Encounter - Jerir Infante PA-C - 02/02/2024 4:30 PM EST [...] can happen ? (He would go to [facility], get iv medication andit would cause him [...] 02/02/2024 10:15 AM EST HH Concerns Tonia RN, Calling from: [facility] Report/Concerns of: lower back pain, weight gain Symptoms: belly is distended, legs little distended, sob Vitals: T 97.3 P 64 RR 18 BP 138/88 SP O2 96 on 3 lpm Lung sounds clear Weight 172.6 was 168 on 01/28/24 and 165 on 01/23 Blood sugar n/a Narrative: Tonia calling from [facility] Patient has more of a weight gain. [...] fabian with any advice or orders at [phone] Please fax new orders to [facility] documented in this encounter Plan of Treatment Upcoming Encounters Date Type Department Care Team (Late st Contact Info) Description 03/16/2024 2:00 PM EST Office Visit Cardiology, [facility] 132 [facility] [place] [address] Job Bravo PA-C 132 [facility] [place] [address] 03/21/2024 10:30 AM EST Office Visit Orthopaedics [facility] [address] [place] [address] Ely Cabrales MD [address] [place] [address] 04/18/2024 3:30 PM EST Procedure Only Urology, [facility] 132 [facility] [place] [address] Man Gu MD [address] [place] [address] 05/14/2024 12:20 PM EDT Office Visit Pulmonary Medicine, [facility] 132 [facility] [place] [address] Bashir Harding MD [address] [facility] [address] 06/07/2024 2:00 PM EDT Office Visit Dermatology, [address] [place] [address] Gypsy Mujica PA-C [address] [place] [address] [place] [address] 07/11/2024 3:00 PM EDT Office Visit General Internal Medicine [facility] 200 [facility] [place] [address] Jennifer Sarkar MD [address] [place] [address] Scheduled Procedures Name Priority Associated Diagnoses Date/Ti [...] D LEVEL ONCE IN A LIFETIME-USE SMARTSET# [id number] Completed 10/20/2023, 08/17/2023, 12/01/2022, Additional history exists [...] this encounter Medical Devices Implanted Type Area Buffer Automatic Device Identifier Shelf Expiration Date Model / Serial / Lot Lens Intraoc 23.0 - [id number] - [id number] Implanted:Qty: 1 on 12/21/2016 by Raj Bernard MD at OR [facility] Left: Eye [employer] 06/20/2021 [id number] / [id number] / Lens Intraoc 22.0 - [id number] - [id number] Implanted:Qty: 1 on 01/06/2017 by Raj Bernard MD at OR [facility] Right: Eye [employer]CH [employer]OMB 08/20/2021 [id number] / [id number] / [id number] documented as of this encounter Advance Directives [...] Power of Attor bj? No Care Teams Cobbler Mckay Relationship Specialty Start Date End Date Jennifer Sarkar MD 200 [place] [address] PCP - General Internal Medicine 10/06/20 documented as of this encounter
--- OUTSIDE RECORDS SUMMARY | 2024-04-20 04:05 | External Medical Summary | Summary of Care ---
Author Name Unknown Organization [facility] Address [address] [facility] [place] [address] Phone [phone] Care Team Providers Care Shape Brick Molder Name Role Phone Jennifer Sarkar MD Primary Care Provider [phone] Encounter Details Date Type Department Care Team (Late st Contact Info) Description 02/17/2024 Orders Only Nephrology, [place] [facility] [place] [id number] Yumiko Philippe MD [address] [place] [address] Allergies Active Allergy Reactions Criticality Noted Date Comments Food (See Comments) 03/21/2018 Other reaction(s): WAS TOLD NOT TO TAKE grapefruit Tramadol Other (Please comment) High 10/06/2020 Hallucinations documented as of this encounter (statuses as of 02/17/2024) Medications NITROGLYCERIN 0.4 MG SL SUBLIndications:Old myocardial [...] Active Additional Information Patient taking differently:1,000 mg [id number] PRN, ,may take 3rd dose in between [...] Tablet 1 02/12/20 23 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 oxygen 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: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 hypoxia (HCC),Chronic right-sided [...] Oral Tablet (Lasix)Indications: 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 artery of red devil heart without angina pectoris,Chronic right-sided heart failure [...] as of this encounter (statuses as of 02/17/2024) Active Problems Problem Noted Date Diagnosed Date Hypercalcemia 12/03/2022 Supplemental oxygen dependent 05/06/2022 Nasal septal perforation 05/06/2022 Chronic respiratory failure with hypoxia 022 Granulomatous lung disease 09/18/2021 Chronic rhinitis 06/10/2021 Schatzki's ring of distal esophagus 06/10/2021 Chronic right-sided heart failure 04/08/2020 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 14 Qatari flexible cystoscope inserted into urethra and guided [...] as of this encounter (statuses as of 02/17/2024) Immunizations Name Administration Dates Next Due COVID-19 mRNA, LNP-s, No Pre serve, 2-Dose Series ([employer]) 05/14/2020,04/18/2020 Covid-19, Mrna, Lnp-s, Pf, B ivalent, 30 Mcg, IM, 12 yrs and above ([employer]) 07/01/2023 H1N1 2009 Influenza, IM 04/22/2009 PPD [...] Industry Job Start Date Job End Date [place] [employer] Not on file Not on file Not on file documented as of this encounter Plan of Treatment Upcoming Encounters Date Type Department Care Team (Late st Contact Info) Description 03/16/2024 2:00 PM EST Office Visit Cardiology, [facility] [address] [place] [place] [address] Job Bravo PA-C [address] [place] [address] 03/21/2024 10:30 AM EST Office Visit Orthopaedics [facility] [address] [address] [address] Ely Cabrales MD [address] [place] [address] 04/18/2024 3:30 PM EST Procedure Only Urology, [facility] [address] [place] [address] Man Gu MD [address] [place] [address] 05/14/2024 12:20 PM EDT Office Visit Pulmonary Medicine, [facility] [address] [place] [address] Bashir Harding MD [address] [place] [address] 06/07/2024 2:00 PM EDT Office Visit Dermatology, [address] [facility] [place] [phone] Gypsy Mujica PA-C [address] [place] [address] [place] [address] 07/11/2024 3:00 PM EDT Office Visit General Internal Medicine [facility] [address] [facility] [place] [address] Jennifer Sarkar MD [address] [facility] [place] [address] Scheduled Procedures Name Priority Associated Diagnoses Date/Ti me COLONOSCOPY FLEXIBLE PROXIMAL DIAGNOSTIC Recall History of colon polyps Health Maintenance Due Date Last Done Comments Adult Wellness Visit 11/29/2017 11/29/2016 Colonoscopy 06/03/2022 06/03/2017, 02/01/2007 Depression Monitoring 09/09/2022 09/09/2021 COVID-19 Vaccine ( season) 2023 07/01/2023, 05/14/2020, 04/18/2020 Albumin/Creatinine Ratio 09/09/2024 09/09/2021, 09/22 GFR 12/19/2024 02/13/2024, 11/22, 10/20/2023, Additional history exists TSH 12/19/2024 12/20/2023, 04/2023, 03/23/2023, Additional history exists DXA Scan 08/29/2025 08/30/2023, 07/22, 05/24/2017, Additional history exists DTap/Tdap Vaccines (2 - Td or Tdap) 07/19/2028 07/19/2018, 12/14/2007 Pneumococcal Vaccine: 50+ Years Completed 11/12/2014, 07/20/2007, 02/25/2002 RETIRED - COLONOSCOPY-EVERY 5 YRS AGES 18-100 Discontinued 06/03/2017, 02/01/2007 Zoster Vaccines Completed 01/28/2020, 09/17/2019 VITAMIN D LEVEL ONCE IN A LIFETIME-USE SMARTSET# [id number] Completed 10/20/2023, 08/17/2023, 12/01/2022, Additional history exists [...] this encounter Medical Devices Implanted Type Area Entry Level Truck Driver Device Identifier Shelf Expiration Date Model / Serial / Lot Lens Intraoc 23.0 - [id number] - [id number] Implanted:Qty: 1 on 12/21/2016 by Raj Bernard MD at OR [facility] Left: Eye BAUSCH & LOMB 06/20/2021 [id number] / [id number] / Lens Intraoc 22.0 - [id number] - [id number] Implanted:Qty: 1 on 01/06/2017 by Raj Bernard MD at OR [facility] Right: Eye BAUSCH & LOMB 08/20/2021 [id number] / [id number] / [id number] documented as of this encounter Procedures Procedure Name Priority Date/Time Associated Diagnosis Comments CHEMISTRY-OUTSIDE Routine 02/13/2024 documented in this encounter Results * (ABNORMAL) CHEMISTRY-OUTSIDE (02/13/2024) Not all results display below - see scan for full detail OUTSIDE LAB (SEE SCANNED REPORT) Comment:SCAN INCLUDES - BMP CREATININE 0.97 0.6 - 1.4 MG/DL OUTSIDE LAB (SEE SCANNED REPORT) EGFR 77.94 OUTSIDE LA B (SEE SCANNED REPORT) POTASSIUM 3.7 3.5 - 5.1 MMOL/L OUTSIDE LAB (SEE SCANNED REPORT) GLUCOSE 214(A) 70 - 99 MG/DL OUTSIDE LAB (SEE SCANNED REPORT) HOURS FASTING OUTSID E LAB (SEE SCANNED REPORT) TRIGLYCERIDES-OUT SIDE LAB OUTSIDE LAB (SEE SCANNED REPORT) CHOLESTEROL-OUTSI DE LAB OUTSIDE LAB (SEE SCANNED REPORT) HDL-OUTSIDE LAB OUTS AMEYA LAB (SEE SCANNED REPORT) CHOL/HDL RATIO-OUTSIDE LAB OUTSIDE LA B (SEE SCANNED REPORT) LDL (CALCULATED)-OUTS AMEYA LAB OUTSIDE LAB (SEE SCANNED REPORT) LDL (DIRECT MEASURE)-OUTSIDE LAB OUTSIDE LAB (SEE SCANNED REPORT) HEMOGLOBIN, [id number] LAB OUTSIDE LAB (SEE SCANNED REPORT) PHOSPHORUS-OUTSID E LAB OUTSIDE LAB (SEE SCANNED REPORT) PTH-OUTSIDE LAB OUTS AMEYA LAB (SEE SCANNED REPORT) MICROALBUMIN RATIO-OUTSIDE LAB OUTSIDE LA B (SEE SCANNED REPORT) PROTEIN, UA-OUTSIDE LAB OUTSIDE LAB (SEE SCANNED REPORT) HGB OUTSIDE LA B (SEE SCANNED REPORT) 02/13/2024 us Yumiko Philippe MD LABORATORY Final Res ult OUTSIDE LAB (SEE SCANNED REPORT) documented in this encounter Advance Directives * [...] Power of Attor bj? No Care Teams Shape Brick Molder Relationship Specialty Start Date End Date Mello, Jennifer, MD 200 [facility], [place] [phone] PCP - General Internal Medicine 10/06/20 documented as of this encounter
--- OUTSIDE RECORDS SUMMARY | 2024-04-20 04:05 | External Medical Summary | Summary of Care ---
Author Name Unknown Organization [facility] Address [address] [facility] [place] [address] Phone [phone] Care Team Providers Care Pressure Dispatcher Name Role Phone Jennifer Sarkar MD Primary Care Provider Reason for Visit * Reason Onset Date Comments Home Health 02/02/2024 Encounter Details Date Type Department Care Team (Late st Contact Info) Description 02/02/2024 Telephone General Internal Medicine [facility] 200 [facility] [place] [address] Jennifer Sarkar MD 200 [place] [address] Home Health Allergies Active Allergy Reactions Criticality [...] Active Additional Information Patient taking differently:1,000 mg WoxcH5G PRN, ,may take 3rd dose in between [...] Tablet 1 02/12/20 23 Active oxygen 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: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 respiratory failure with hypoxia (HCC),Chronic right-sided [...] Oral Tablet (Lasix)Indications: Coronary artery disease involving iliamna coronary artery of iliamna heart without angina pectoris,Chronic right-sided heart failure [...] failure 04/08/2020 Coronary artery disease invo lving iliamna coronary artery of iliamna heart without angina pectoris 11/21/2018 Abnormality of [...] mRNA, LNP-s, No Pre serve, 2-Dose Series ([employer]) 05/14/2020,04/18/2020 Covid-19, Mrna, Lnp-s, Pf, B ivalent, [...] Industry Job Start Date Job End Date [place] [employer] Not on file Not on file [...] of 40 mg twice per day No swcv-ywd-nruwnxi potassium, multivitamin, salt substitute, or NSAIDs. Repeat [...] 3:34 PM EST Called and spoke with nurse Cathie from [facility] and informed her of [...] - 02/06/2024 12:33 PM EST Please let [facility] know as below If no sooner [...] AM EST Concerns Tonia LANGLEY, Calling from: [facility] Report/Concerns of: increased weight from last week Symptoms: sob- exertion- minimal Vitals: T 97.1 P 69 RR 18 BP 132/88 SP O2 95 on 3 lpm Lung sounds clear, diminished. Teeny bit of wheezing at the top. Weight 168.2 weight is down a little today. Blood sugar n/a Narrative: KORIN Randall calling from [facility]. Asking about the patient. She [...] Tonia with any advice or orders at [phone] Please fax new orders to [facility] * Telephone Encounter - [...] can happen ? (He would go to [facility], get iv medication andit would [...] EST HH Concerns Tonia RN, Calling from: [facility] Report/Concerns of: lower back pain, weight gain Symptoms: belly is distended, legs little distended, sob Vitals: T 97.3 P 64 RR 18 BP 138/88 SP O2 96 on 3 lpm Lung sounds clear Weight 172.6 was 168 on 01/28/24 and 165 on 01/23 Blood sugar n/a Narrative: Tonia calling from [facility] Patient has more of a weight [...] fabian with any advice or orders at [phone] Please fax new orders to [facility] documented in this encounter Plan of Treatment Upcoming Encounters Date Type Department Care Team (Late st Contact Info) Description 03/16/2024 2:00 PM EST Office Visit Cardiology, [address] [place] [address] Job Bravo PA-C [address] [place] [address] 03/21/2024 10:30 AM EST Office Visit Orthopaedics [facility] 132 [facility] [place] [address] Ely Cabrales MD 132 [facility] [place] [address] 04/18/2024 3:30 PM EST Procedure Only Urology, [facility] 132 [facility] [place] [address] Man Gu MD [address] [place] [id number] 05/14/2024 12:20 PM EDT Office Visit Pulmonary Medicine, [facility] 132 [facility] [place] [address] Bashir Harding MD [address] [facility] [address] 06/07/2024 2:00 PM EDT Office Visit Dermatology, [facility] [phone] Gypsy Mujica PA-C [address] [place] [address] [place] [address] 07/11/2024 3:00 PM EDT Office Visit General Internal Medicine [facility] [place] [address] [facility] [place] [address] Jennifer Sarkar MD 200 [facility] [place] [address] Scheduled Procedures Name Priority Associated Diagnoses Date/Ti [...] D LEVEL ONCE IN A LIFETIME-USE SMARTSET# [id number] Completed 10/20/2023, 08/17/2023, 12/01/2022, Additional history exists [...] this encounter Medical Devices Implanted Type Area Science Education Professor Device Identifier Shelf Expiration Date Model / Serial / Lot Lens Intraoc 23.0 - [id number] - [id number] Implanted:Qty: 1 on 12/21/2016 by Raj Bernard MD at OR [facility] Left: Eye BAUSCH [employer] LOMB 06/20/2021 [id number] / [id number] / Lens Intraoc 22.0 - [id number] - [id number] Implanted:Qty: 1 on 01/06/2017 by Raj Bernard MD at OR [facility] Right: Eye BAUSCH & LOMB 08/20/2021 [id number] / [id number] / [id number] documented as of this encounter Advance Directives [...] Power of Attor bj? No Care Teams Pressure Dispatcher Relationship Specialty Start Date End Date Jennifer Sarkar MD [address] [place] [address] PCP - General Internal Medicine 10/06/20 documented as of this encounter
--- OUTSIDE RECORDS SUMMARY | 2024-04-20 04:05 | External Medical Summary | Summary of Care ---
Author Name Unknown Organization [facility] Address [address] [facility] [place] [address] Phone [phone] Care Team Providers Care Search Marketing Analyst Name Role Phone Jennifer Sarkar MD Primary Care Provider [phone] Reason for Visit * Reason Onset Date Comments Home Health 02/02/2024 Encounter Details Date Type Department Care Team (Late st Contact Info) Description 02/02/2024 Telephone General Internal Medicine [facility] 200 [facility] [place] [address] Jennifer Sarkar MD 200 [place] [address] Home Health Allergies Active Allergy Reactions Criticality [...] Active Additional Information Patient taking differently:1,000 mg DccyK0M PRN, ,may take 3rd dose in between [...] Tablet 1 02/12/20 23 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 14 Croatian flexible cystoscope inserted into urethra and guided [...] mRNA, LNP-s, No Pre serve, 2-Dose Series ([employer]) 05/14/2020,04/18/2020 Covid-19, Mrna, Lnp-s, Pf, B ivalent, [...] Industry Job Start Date Job End Date [employer] [employer] Not on file Not on file Not on file documented as of this encounter Miscellaneous Notes * Telephone Encounter - Job Bravo PA-C [...] of 40 mg twice per day No wjnv-iqj-jkcwarc potassium, multivitamin, salt substitute, or NSAIDs. Repeat [...] Called and spoke with Cathie nurse from [facility] and informed her of Jerri's [...] - 02/06/2024 12:33 PM EST Please let [facility] know as below If no sooner [...] AM EST Concerns Tonia LANGLEY, Calling from: [facility] Report/Concerns of: increased weight from last week Symptoms: sob- exertion- minimal Vitals: T 97.1 P 69 RR 18 BP 132/88 SP O2 95 on 3 lpm Lung sounds clear, diminished. Teeny bit of wheezing at the top. Weight 168.2 weight is down a little today. Blood sugar n/a Narrative: KORIN Randall calling from [facility]. Asking about the patient. She had called [...] Tonia with any advice or orders at [phone] Please fax new orders to [facility] * Telephone Encounter - Linh [...] can happen ? (He would go to [facility], get iv medication andit would [...] EST HH Concerns Tonia RN, Calling from: [facility] Report/Concerns of: lower back pain, weight gain Symptoms: belly is distended, legs little distended, sob Vitals: T 97.3 P 64 RR 18 BP 138/88 SP O2 96 on 3 lpm Lung sounds clear Weight 172.6 was 168 on 01/28/24 and 165 on 01/23 Blood sugar n/a Narrative: Tonia calling from [facility] Patient has more of a weight gain. [...] fabian with any advice or orders at [phone] Please fax new orders to [facility] documented in this encounter Plan of Treatment Upcoming Encounters Date Type Department Care Team (Late st Contact Info) Description 03/16/2024 2:00 PM EST Office Visit Cardiology, [facility] [address] [place] [address] Job Bravo PA-C [address] [place] [address] 03/21/2024 10:30 AM EST Office Visit Orthopaedics [facility] [address] [place] [address] Ely Cabrales MD [address] [place] [address] 04/18/2024 3:30 PM EST Procedure Only Urology, [facility] [place] [address] Man Gu MD 27 [facility] [place] [id number] 05/14/2024 12:20 PM EDT Office Visit Pulmonary Medicine, [facility] 132 [facility] [place] [address] Bashir Harding MD [address] [place] [address] 06/07/2024 2:00 PM EDT Office Visit Dermatology, [facility] [phone] Gypsy Mujica PA-C [address] [place] [address] [place] [address] 07/11/2024 3:00 PM EDT Office Visit General Internal Medicine [facility] 200 [facility] [place] [address] Jennifer Sarkar MD 200 [facility] [place] [address] Scheduled Procedures Name Priority Associated Diagnoses Date/Ti me COLONOSCOPY FLEXIBLE PROXIMAL DIAGNOSTIC Recall History of colon polyps Health Maintenance Due Date Last Done Comments Adult Wellness Visit 11/29/2017 11/29/2016 Colonoscopy 06/03/2022 06/03/2017, 02/01/2007 Depression Monitoring 09/09/2022 09/09/2021 COVID-19 Vaccine ( season) 2023 07/01/2023, 05/14/2020, 04/18/2020 Albumin/Creatinine Ratio 09/09/2024 09/09/2021, 09/22 TSH 12/19/2024 12/20/2023, 09/04/2023, 03/23/2023, Additional history exists GFR 02/12/2025 02/13/2024, 11/22, 10/20/2023, Additional history exists DXA Scan 08/29/2025 08/30/2023, 07/22, 05/24/2017, Additional history exists DTap/Tdap Vaccines (2 - Td or Tdap) 07/19/2028 07/19/2018, 12/14/2007 Pneumococcal Vaccine: 50+ Years Completed 11/12/2014, 07/20/2007, 02/25/2002 RETIRED - COLONOSCOPY-EVERY 5 YRS AGES 18-100 Discontinued 06/03/2017, 02/01/2007 Zoster Vaccines Completed 01/28/2020, 09/17/2019 VITAMIN D LEVEL ONCE IN A LIFETIME-USE SMARTSET# [id number] Completed 10/20/2023, 08/17/2023, 12/01/2022, Additional history exists [...] this encounter Medical Devices Implanted Type Area Lepidopterist Device Identifier Shelf Expiration Date Model / Serial / Lot Lens Intraoc 23.0 - [id number] - [id number] Implanted:Qty: 1 on 12/21/2016 by Raj Bernard MD at OR [facility] Left: Eye BAUSCH & LOMB 06/20/2021 [id number] / [id number] / Lens Intraoc 22.0 - [id number] - [id number] Implanted:Qty: 1 on 01/06/2017 by Raj Bernard MD at OR [facility] Right: Eye BAUSCH & LOMB 08/20/2021 [id number] / [id number] documented as of this encounter Advance Directives [...] Power of Attor bj? No Care Teams Search Marketing Analyst Relationship Specialty Start Date End Date Jennifer Sarkar MD 200 [place] [address] PCP - General Internal Medicine 10/06/20 documented as of this encounter
--- OUTSIDE RECORDS SUMMARY | 2024-04-20 04:05 | External Medical Summary | Summary of Care ---
Author Name Unknown Organization [facility] Address [address] [facility] [place] [address] Phone [phone] Care Team Providers Care Java Developer With Security Clearance Name Role Phone Jennifer Sarkar MD Primary Care Provider [phone] Reason for Visit * Reason Onset Date Comments Home Health 02/02/2024 Encounter Details Date Type Department Care Team (Late st Contact Info) Description 02/02/2024 Telephone General Internal Medicine [facility] [address] [facility] [place] [address] Jennifer Sarkar MD 200 [place] [address] Home Health Allergies Active Allergy Reactions Criticality [...] Active Additional Information Patient taking differently:1,000 mg UcaqH1K PRN, ,may take 3rd dose in between [...] Tablet 1 02/12/20 23 Active oxygen 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: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 respiratory failure with hypoxia (HCC),Chronic right-sided [...] Oral Tablet (Lasix)Indications: Coronary artery disease involving [place] ind[place] coronary artery of [place] heart without angina pectoris,Chronic right-sided heart failure [...] mRNA, LNP-s, No Pre serve, 2-Dose Series ([employer]) 05/14/2020,04/18/2020 Covid-19, Mrna, Lnp-s, Pf, B ivalent, [...] Industry Job Start Date Job End Date [employer] Not on file Not on file Not on file documented as of this encounter Miscellaneous Notes * Telephone Encounter - Sharona Mehta LPN - 02/20/2024 3:52 PM EST KORIN Randall from [facility] is calling. Made her aware of message from Job Bravo PA-C. Reports that the pt's edema and breathing improved. Weight is stable at 164.8 lbs. Believes that the 40 mg of Furosemide has greatly helped. Does not think the Spironolactone is needed at this time added unless pt would regress/not improve. WINI. * Telephone Encounter - Phillip Hess LPN [...] of 40 mg twice per day No [id number] potassium, multivitamin, salt substitute, or NSAIDs. Repeat [...] Called and spoke with Cathie nurse from [facility] and informed her of Jerri's [...] - 02/06/2024 12:33 PM EST Please let [facility] know as below If no [...] AM EST Concerns Tonia LANGLEY, Calling from: [facility] Report/Concerns of: increased weight from last week Symptoms: sob- exertion- minimal Vitals: T 97.1 P 69 RR 18 BP 132/88 SP O2 95 on 3 lpm Lung sounds clear, diminished. Teeny bit of wheezing at the top. Weight 168.2 weight is down a little today. Blood sugar n/a Narrative: KORIN Randall calling from [facility]. Asking about the patient. She had [...] Tonia with any advice or orders at [phone] Please fax new orders to [facility] * Telephone Encounter - Linh [...] can happen ? (He would go to [facility], get iv medication andit would [...] EST HH Concerns Tonia LANGLEY, Calling from: [facility] Report/Concerns of: lower back pain, weight gain Symptoms: belly is distended, legs little distended, sob Vitals: T 97.3 P 64 RR 18 BP 138/88 SP O2 96 on 3 lpm Lung sounds clear Weight 172.6 was 168 on 01/28/24 and 165 on 01/23 Blood sugar n/a Narrative: Tonia calling from [facility] Patient has more of a weight gain. [...] fabian with any advice or orders at [phone] Please fax new orders to [facility] documented in this encounter Plan of Treatment Upcoming Encounters Date Type Department Care Team (Late st Contact Info) Description 03/16/2024 2:00 PM EST Office Visit Cardiology, [facility] [address] [facility] [place] [address] Job Bravo PA-C [address] [place] [address] 03/21/2024 10:30 AM EST Office Visit Orthopaedics [facility] 132 [facility] [place] [address] Ely Cabrales MD [address] [place] [address] 04/18/2024 3:30 PM EST Procedure Only Urology, [facility] 132 [facility] [place] [address] Man Gu MD [address] [place] [id number] 05/14/2024 12:20 PM EDT Office Visit Pulmonary Medicine, [facility] 132 [facility] [place] [address] Bashir Harding MD [address] [place] [id number] 06/07/2024 2:00 PM EDT Office Visit Dermatology, [address] [place] [address] Gypsy Mujica PA-C [address] [place] [address] [place] [address] 07/11/2024 3:00 PM EDT Office Visit General Internal Medicine [employer] [address] [facility] [place] [address] Jennifer Sarkar MD [address] [facility] [place] [address] Scheduled Procedures Name Priority Associated Diagnoses Date/Ti [...] D LEVEL ONCE IN A LIFETIME-USE SMARTSET# 62039 Completed 10/20/2023, 08/17/2023, 12/01/2022, Additional history exists [...] this encounter Medical Devices Implanted Type Area Rn Shift Mgr Device Identifier Shelf Expiration Date Model / Serial / Lot Lens Intraoc 23.0 - [id number] - [id number] Implanted:Qty: 1 on 12/21/2016 by Raj Bernard MD at OR [facility] Left: Eye [employer] LOMB 06/20/2021 [id number] / [id number] / Lens Intraoc 22.0 - [id number] - [id number] Implanted:Qty: 1 on 01/06/2017 by Raj Bernard MD at OR [facility] Right: Eye [employer]USCH [employer] LOMB 08/20/2021 [id number] / [id number] / [id number] documented as of this encounter Advance Directives [...] Power of Attor bj? No Care Teams Java Developer With Security Clearance Relationship Specialty Start Date End Date Jennifer Sarkar MD 200 [facility] [address] PCP - General Internal Medicine 10/06/20 documented as of this encounter
--- OUTSIDE RECORDS SUMMARY | 2024-04-20 04:05 | External Medical Summary | Summary of Care ---
Author Name Unknown Organization [facility] Address [address] [facility] [place] [address] Phone [phone] Care Team Providers Care Auto Air Conditioning Installer Name Role Phone Jennifer Sarkar MD Primary Care Provider [phone] Reason for Visit * Reason Onset Date Comments Home Health 02/02/2024 Encounter Details Date Type Department Care Team (Late st Contact Info) Description 02/02/2024 Telephone General Internal Medicine [facility] 200 [facility] [place] [address] Jennifer Sarkar MD 200 [place] [address] Home Health Allergies Active Allergy Reactions Criticality [...] Active Additional Information Patient taking differently:1,000 mg PygmO5O PRN, ,may take 3rd dose in between [...] Tablet 1 02/12/20 23 Active oxygen 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: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..] Called and spoke with Cathie nurse from [facility] and informed her of [...] - 02/06/2024 12:33 PM EST Please let [facility] know as below If no sooner appt, [...] EST HH Concerns Tonia LANGLEY, Calling from: [facility] Report/Concerns of: increased weight from last week Symptoms: sob- exertion- minimal Vitals: T 97.1 P 69 RR 18 BP 132/88 SP O2 95 on 3 lpm Lung sounds clear, diminished. Teeny bit of wheezing at the top. Weight 168.2 weight is down a little today. Blood sugar n/a Narrative: Tonia, RN calling from [facility]. Asking about the patient. She had called [...] Tonia with any advice or orders at [phone] Please fax new orders to [facility] * Telephone Encounter - [...] EST HH Concerns Tonia RN, Calling from: [facility] Report/Concerns of: lower back pain, weight gain Symptoms: belly is distended, legs little distended, sob Vitals: T 97.3 P 64 RR 18 BP 138/88 SP O2 96 on 3 lpm Lung sounds clear Weight 172.6 was 168 on 01/28/24 and 165 on 01/23 Blood sugar n/a Narrative: Tonia calling from [facility] Patient has more of a weight [...] fabian with any advice or orders at [phone] Please fax new orders to [facility] documented in this encounter Plan of Treatment Upcoming Encounters Date Type Department Care Team (Late st Contact Info) Description 03/16/2024 2:00 PM EST Office Visit Cardiology, [facility] 132 [facility] [place] [address] Job Bravo PA-C 132 [facility] [place] [address] 03/21/2024 10:30 AM EST Office Visit Orthopaedics [facility] [address] [place] [address] Ely Cabrales MD [address] [place] [address] 04/18/2024 3:30 PM EST Procedure Only Urology, [facility] 132 [facility] [place] [address] Man Gu MD [address] [place] [id number] 05/14/2024 12:20 PM EDT Office Visit Pulmonary Medicine, [facility] 132 [facility] [place] [address] Bashir Harding MD [address] [facility] [place] [address] 06/07/2024 2:00 PM EDT Office Visit Dermatology, [address] [place] [address] Gypsy Mujica PA-C [address] [place] [address] [place] [address] 07/11/2024 3:00 PM EDT Office Visit General Internal Medicine [facility] 200 [facility] [place] [address] Jennifer Sarkar MD [address] [place] [address] Scheduled Procedures Name Priority Associated Diagnoses Date/Ti [...] D LEVEL ONCE IN A LIFETIME-USE SMARTSET# [id number] Completed 10/20/2023, 08/17/2023, 12/01/2022, Additional history exists [...] this encounter Medical Devices Implanted Type Area Photocomposing Machine Operator Device Identifier Shelf Expiration Date Model / Serial / Lot Lens Intraoc 23.0 - [id number] - [id number] Implanted:Qty: 1 on 12/21/2016 by Raj Bernard MD at OR [facility] Left: Eye [employer]CH [employer] LOMB 06/20/2021 [id number] / [id number] / Lens Intraoc 22.0 - [id number] - [id number] Implanted:Qty: 1 on 01/06/2017 by Raj Bernard MD at OR [facility] Right: Eye BAUSCH [employer] LOMB 08/20/2021 [id number] / [id number] / [id number] documented as of this encounter Advance Directives [...] Power of Attor bj? No Care Teams Auto Air Conditioning Installer Relationship Specialty Start Date End Date Jennifer Sarkar MD 200 [place] [address] PCP - General Internal Medicine 10/06/20 documented as of this encounter
--- NOTE | 2024-04-20 09:04 | History & Physical Report ---
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 Generalized weakness Likely physical deconditioning Patient presents to the hospital after unable to get off the commode. At baseline oxygen requirement of 3 L by nasal cannula Mild leukocytosis present B MP grossly unremarkable Urinalysis does not show signs of infection Respiratory viral panel negative EKG reviewed; normal sinus rhythm Chest x-rayno acute findings Continue PT OT evaluation; possible discharge to rehab Chronic respiratory failure with hypoxia, on 3 to 4 L of oxygen Restrictive lung disease/granulomatous lung disease Oxygen requirement is at baseline Will start flutter valve for airway clearance while inpatient Chest x-ray read as no acute findings CPAP intolerant Essential tremorscontinue on propranolol BPHcontinue on dutasteride and tamsulosin HFpEF, compensatedon Lasix 40 mg twice daily; will do once a day for now given elevated bicarb. Mood disordercontinue duloxetine, citalopram Coronary artery disease S/P stent Hyperlipidemia Continue Plavix, statin, propranolol Hypothyroidismcontinue levothyroxine Full code DVT prophylaxis heparin Time spent evaluating patient, direct bedside care, chart review, placing orders, interpretation of diagnostic studies, discussion with consultants, patient, and family members, as well as other required patient management activities is 75 minutes Please note the above document was generated using voice recognition software. It may contain grammatical, syntax or spelling errors. Any formal questions or concerns about the content, text or information contained within the body of this dictation should be directly addressed to the provider for clarification History of Present Illness Chief Complaint: Generalized weakness for 1 day Primary Care Provider: Jennifer Sarkar MD History obtained from chart review and interview with the patient Medical history significant for chronic right-sided heart failure, mild MR, CAD status post stenting, chronic respiratory failure secondary to restrictive lung disease/granulomatous lung disease on home O2 at 3L, EZEQUIEL (CPAP intolerance), nocturnal hypoxemia nasal cannula at night, HTN, hypothyroidism, essential tremors, anxiety/mood disorder, chronic back pain, BPH, past tobacco abuse Last admission in December 2023 after slipping out of the chair and trouble getting up; was discharged home with home health Patient presents today after he was unable to get off the commode. Patient denies any focal weakness/numbness, visual issues, headache, fever, chills, abdominal pain, chest pain or increasing shortness of breath .Patient also denies loss of consciousness or dizziness He lives by himself and walks with the help of a walker. Patient was observed in the ED; was initially planned to be discharged. However, patient reported that he will likely benefit from rehab; was then referred for admission. Allergies Allergy/AdvReac Type Severity Reaction Status Date / Time tramadol AdvReac Intermediate Hallucinati Verified 03/12/23 02:38 ng grapefruit AdvReac Unknown WAS TOLD Verified 03/12/23 02:38 NOT TO TAKE BECAUSE OF CHOLESTROL PILL. Home Medications Medication Instructions Recorded Confirmed Type acetaminophen 500 mg tablet 1,000 mg (2 x 500 mg) PO Q8H PRN 07/13/23 04/20/24 Rx (Tylenol Extra Strength) fever or pain #90 tabs levothyroxine 112 mcg tablet 112 mcg PO DAILYBB #30 tabs 07/13/23 04/20/24 Rx montelukast 10 mg tablet 10 mg PO QAM #30 tabs 07/13/23 04/20/24 Rx (Singulair) pantoprazole 20 mg tablet,delayed 20 mg PO DAILYBB #30 tabs 07/13/23 04/20/24 Rx release propranolol 20 mg tablet 20 mg PO TID #90 tabs 07/13/23 04/20/24 Rx rosuvastatin 5 mg tablet 5 mg PO QAM #30 tabs 07/13/23 04/20/24 Rx tamsulosin 0.4 mg capsule 0.4 mg PO HS #30 caps 07/13/23 04/20/24 Rx allopurinol 100 mg tablet 200 mg PO 1XD 04/20/24 04/20/24 History citalopram 20 mg tablet 20 mg PO 1XD 04/20/24 04/20/24 History clopidogrel 75 mg tablet (Plavix) 75 mg PO 1XD 04/20/24 04/20/24 History duloxetine 60 mg capsule,delayed 60 mg PO 1XD 04/20/24 04/20/24 History release dutasteride 0.5 mg capsule 0.5 mg PO 1XD 04/20/24 04/20/24 History furosemide 40 mg tablet 40 mg PO 2XD 04/20/24 04/20/24 History solifenacin 5 mg tablet 5 mg PO 1XD 04/20/24 04/20/24 History spironolactone 25 mg tablet See Rx Instructions .Route .COMPLEX 04/20/24 04/20/24 History Past Med/Surg History Problem List (Updated 01/30/24 @ 00:06 by Johnie Carter) Back pain Chronic respiratory failure (Acute) Dizziness (Acute) Fall (Acute) Kidney stones ONE PRESENT/NO PROBLEMS WITH Hematuria Ambulatory dysfunction (Acute) Chronic hypoxic respiratory failure, on home oxygen therapy (Acute) Fall (Acute) Dizziness (Acute) Leukocytosis (Acute) Ambulatory dysfunction (Acute) Generalized weakness (Acute) COPD (chronic obstructive pulmonary disease) (Acute) Physical deconditioning (Acute) Dependence on supplemental oxygen (Acute) Fall Elevated hemidiaphragm Pneumonia Scoliosis (Acute) Right heart failure Hypokalemia Acute and chronic respiratory failure Chronic obstructive pulmonary disease Depression Hyperlipidemia Hypertension Shortness of breath (Acute) Pulmonary edema (Acute) Acute exacerbation of CHF (congestive heart failure) (Acute) Encounter for pre-operative examination Spinal stenosis (Chronic) Encounter for pre-operative examination Acute respiratory failure (Acute) Shortness of breath Leukocytosis Aspiration into airway Medical History Bilateral shoulder pain Fall Restrictive lung disease Acute on chronic respiratory failure with hypoxemia Acute and chronic respiratory failure with hypercapnia Pulmonary embolism COVID-19 Choking REASON FOR UPCOMING PROCEDURE PER PT Ankle swelling PT PLANS TO DISCUSS WITH PT REPORTS DR HAD HIM STOP FLUID PILL AND NOT SURE WHY Infected dental caries Subperiosteal abscess of jaw Acute periodontal abscess Pain, dental Generalized muscle weakness Lower urinary tract symptoms (LUTS) Hypoxia DVT prophylaxis Chronic right-sided heart failure Fall HX, NOT RECENTLY Cervical spine fracture LAST SUMMER NO LIMITATIONS SOB (shortness of breath) on exertion with wheezing Scoliosis Chronic back pain GERD (gastroesophageal reflux disease) Hypothyroidism On anticoagulant therapy plavix daily 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 Myocardial Infarction 2009 Sleep apnea uses 4 L N/C MOSTLY ALL THE TIME On home oxygen therapy 3-4 L CONTINUOUS MOSTLY, AND PRN PER PT COPD (chronic obstructive pulmonary disease) Dyslipidemia HTN (hypertension) Hypothyroidism CAD (coronary artery disease) Surgical History Hx of oral surgery (07/05/21) Multiple Teeth Extractions for Facial Infection - Sin Chacko, DMD NO CURRENT INFECTION PER PT (PAT CALL 08/18/21) History of testicular surgery "sac full of blood in testicle drained at 26 yrs old" [place] [place] History of open reduction and internal fixation (ORIF) procedure left foot fx/pinky toe fx--hardware in place History of lithotripsy Hx of vasectomy Hx of right inguinal hernia repair History of colonoscopy History of esophagogastroduodenoscopy (EGD) History of wisdom tooth extraction History of tonsillectomy History of bilateral cataract extraction [place] of cardiac cath 2009 [place] [facility] [place]--follows with Dr. Ramirez Stented coronary artery "bare metal stent to LAD 2008" Family History Sister Family history of reaction to anesthesia nausea/vomiting Mother Family history of diabetes mellitus Social History Smoking Status: Former smoker Tobacco Type: Pipe and Cigars Cigarettes Per Day: SMOKED PIPE/CIGAR AGE 21'S; Second Hand Exposure: No; Do You Dip or Chew Tobacco: No; Hx Alcohol Use: No Hx Substance Use: No Preferred Language: Faroese Communication Ability: Effective Communication Tools: Other Visual Impairment: No Limitations Gauge Maker Apprentice Required: No Beliefs That Will Affect Care: None marital status: Current Living Situation: Alone Current Living Situation Comment: DOG How many Children do You have: 1 Feels Safe at Home: Yes Assistive Devices: Cane and Walker Review of Systems Review of Systems: All systems reviewed & are unremarkable except as noted in Subjective Physical Exam Physical Exam: Constitutional: Awake alert oriented x 3. Has essential tremors. Respiratory: Bilateral vesicular breath sound. Cardiovascular: RRR, no murmur, no edema Vessels: no JVD or carotid bruit Chest: normal inspection of chest Abdomen: normal bowel sounds, soft, nontender, no hepatosplenomegaly Musculoskeletal: no cyanosis or clubbing, extremities motor strength 5/5 Skin: no rashes, warm and dry normal turgor Neurologic: PERRL, EOMI, accommodation nl, no face palsy, no dysarthria CN's II- XI intact bilaterally and moves all extremities Results & Data Results & Data Vital Signs (Past 12 Hours) Vital Signs Temp Pulse Pulse Resp BP BP Pulse Ox 04/20/24 06:00 74 20 117/77 94 04/20/24 04:00 75 20 115/71 97 04/20/24 02:00 75 20 129/84 95 04/20/24 01:01 77 20 93 04/20/24 00:49 75 04/19/24 23:56 88 L 04/19/24 23:56 37.4 C 75 20 124/76 94 O2 Del Method O2 Flow Rate 04/20/24 06:00 Nasal Cannula 3 04/20/24 04:00 Room Air 04/20/24 02:00 Room Air 04/20/24 01:01 Nasal Cannula 6 04/20/24 00:49 04/19/24 23:56 Nasal Cannula 3 04/19/24 23:56 Nasal Cannula 6 Code Status & VTE Plan VTE Prophylaxis Plan VTE Prophylaxis will be ordered: Yes
[2024-04-20] MEDS ORDERED: ALUMINUM/MAGNESIUM SUSP 30 ML UDC PO PRN (09:29)
[2024-04-20] MEDS: SPIRONOLACTONE 12.5 MG TAB PO SCH (10:44)
[2024-04-20] MEDS: FINASTERIDE 5 MG TAB PO SCH (10:44)
[2024-04-20] MEDS: FUROSEMIDE 40 MG TAB PO SCH (10:45)
[2024-04-20] MEDS: ROSUVASTATIN CALCIUM 5 MG TAB PO SCH (10:45)
[2024-04-20] MEDS: MONTELUKAST SODIUM 10 MG TABLET PO SCH (10:45)
[2024-04-20] MEDS: PROPRANOLOL HCL 20 MG TAB PO SCH (10:46)
[2024-04-20] MEDS: CITALOPRAM 20 MG TAB PO SCH (10:49)
[2024-04-20] MEDS: CLOPIDOGREL BISULFATE 75 MG TAB PO SCH (10:49)
[2024-04-20] MEDS: allopurinoL 100 MG TAB PO SCH (10:49)
[2024-04-20] MEDS: DULoxetine HCL 60 MG CAP PO SCH (10:49)
[2024-04-20] MEDS: HEPARIN SOD 5,000 UNIT/0.5 ML VIAL SQ SCH (10:55)
[2024-04-20] MEDS: OXYBUTYNIN CHLORIDE XL 5 MG TABCR PO SCH (13:51)
[2024-04-20] MEDS: TAMSULOSIN HCL 0.4 MG CAP PO SCH (20:19)
[2024-04-20] MEDS: ACETAMINOPHEN 500 MG TAB PO PRN (20:19)
--- NOTE | 2024-04-20 23:15 | Electrocardiogram Report ---
Test Reason : Blood Pressure : */* mmHG Vent. Rate : 76 BPM Atrial Rate : 76 BPM P-R Int : 152 ms QRS Dur : 86 ms QT Int : 368 ms P-R-T Axes : 35 59 79 degrees QTcB Int : 414 ms Normal sinus rhythm Septal infarct (cited on or before 08-Dec-2022) Abnormal ECG When compared with ECG of 25-Dec-2023 23:43, QT has shortened Confirmed by Gaston Cannon ([id number]) on 04/20/2024 11:15:35 PM Referred By: REFERRED SELF Confirmed By: Gaston Cannon
[2024-04-21] MEDS: LEVOTHYROXINE SODIUM 112 MCG TABLET PO SCH (05:49)
[2024-04-21] MEDS: PANTOprazole 40 MG TAB PO SCH (05:49)
--- NOTE | 2024-04-21 16:38 | Hospitalist Progress Note ---
Date of Service April 21, 2024 Assessment & Plan (1) Ambulatory dysfunction: (2) Chronic hypoxic respiratory failure, on home oxygen therapy: (3) Physical deconditioning: Plan Patient is a 83-year-old male with past medical history of chronic right-sided heart failure, mild MR, CAD status post stenting, chronic respiratory failure secondary to restrictive lung disease/granulomatous lung disease on home O2 at 3L, EZEQUIEL (CPAP intolerance), nocturnal hypoxemia nasal cannula at night, HTN, hypothyroidism, essential tremors, anxiety/mood disorder, chronic back pain, BPH, past tobacco abuse who presented to the hospital after he was unable to get up from commode. Generalized weakness Likely physical deconditioning Patient presents to the hospital after unable to get off the commode. At baseline oxygen requirement of 3 L by nasal cannula Mild leukocytosis present B MP grossly unremarkable Urinalysis does not show signs of infection Respiratory viral panel negative EKG reviewed; normal sinus rhythm Chest x-rayno acute findings Continue PT OT evaluation; possible discharge to rehab Chronic respiratory failure with hypoxia, on 3 to 4 L of oxygen Restrictive lung disease/granulomatous lung disease Oxygen requirement is at baseline Conitnue flutter valve for airway clearance while inpatient Chest x-ray read as no acute findings CPAP intolerant Essential tremorscontinue on propranolol BPHcontinue on dutasteride and tamsulosin HFpEF, compensatedon Lasix 40 mg twice daily; will do once a day for now given elevated bicarb. Mood disordercontinue duloxetine, citalopram Coronary artery disease S/P stent Hyperlipidemia Continue Plavix, statin, propranolol Hypothyroidismcontinue levothyroxine Full code DVT prophylaxis heparin Please note the above document was generated using voice recognition software. It may contain grammatical, syntax or spelling errors. Any formal questions or concerns about the content, text or information contained within the body of this dictation should be directly addressed to the provider for clarification Admission and Anticipated Discharge Date Admission Date: April 20, 2024 Subjective Patient seen and examined at bedside. Comfortable; not in distress. Denies fever, chills, chest pain, shortness of breath, abdominal pain or urinary symptoms. No significant overnight events Review of Systems Review of Systems: All systems reviewed & are unremarkable except as noted in Subjective Physical Exam Physical Exam: Constitutional: Awake alert oriented x 3. Has essential tremors. Respiratory: Bilateral vesicular breath sound. Cardiovascular: RRR, no murmur, no edema Vessels: no JVD or carotid bruit Chest: normal inspection of chest Abdomen: normal bowel sounds, soft, nontender, no hepatosplenomegaly Musculoskeletal: no cyanosis or clubbing, extremities motor strength 5/5 Skin: no rashes, warm and dry normal turgor Neurologic: PERRL, EOMI, accommodation nl, no face palsy, no dysarthria CN's II- XI intact bilaterally and moves all extremities Results & Data Results & Data Vital Signs (Past 12 Hours) Vital Signs Temp Pulse Resp BP Pulse Ox Pulse Ox O2 Del Method 04/21/24 14:40 98 04/21/24 13:16 63 16 120/76 93 Room Air 04/21/24 07:45 Nasal Cannula 04/21/24 07:38 36.4 C L 58 L 18 115/71 93 Nasal Cannula O2 Flow Rate O2 Flow Rate 04/21/24 14:40 3 04/21/24 13:16 04/21/24 07:45 3 04/21/24 07:38 3
[2024-04-21] MEDS ORDERED: traMADol HCL 50 MG TABLET PO STA (19:57)
[2024-04-21] MEDS: traMADol HCL 50 MG TABLET PO STA (20:21)
[2024-04-22] MEDS: POLYETHYLENE (MIRALAX) 17 GM PACK PO PRN (05:45)
[2024-04-22 07:04] LABS: Calcium 9.7 mg/dl (8.6-10.3); Creatinine Clr Calc Pharmacy 65.6 ml/min
--- NOTE | 2024-04-22 08:06 | Hospitalist Progress Note ---
Date of Service April 22, 2024 Assessment & Plan (1) Ambulatory dysfunction: (2) Chronic hypoxic respiratory failure, on home oxygen therapy: (3) Physical deconditioning: Plan Patient is a 83-year-old male with past medical history of chronic right-sided heart failure, mild MR, CAD status post stenting, chronic respiratory failure secondary to restrictive lung disease/granulomatous lung disease on home O2 at 3L, EZEQUIEL (CPAP intolerance), nocturnal hypoxemia nasal cannula at night, HTN, hypothyroidism, essential tremors, anxiety/mood disorder, chronic back pain, BPH, past tobacco abuse who presented to the hospital after he was unable to get up from commode. Generalized weakness Likely physical deconditioning Patient presented to the hospital for weakness after unable to get off the commode 2 days ago. At baseline oxygen requirement of 3 L by nasal cannula No significant electrolyte abnormality. UA does not show signs of infection. Respiratory viral panel was negative CXR no acute findings PT OT evaluation is pending. Anticipate pt will need acute rehab as lives home alone. CM made referral to [facility] and are awaiting formal PT recommendations Chronic respiratory failure with hypoxia, on 3 to 4 L of oxygen Restrictive lung disease/granulomatous lung disease Oxygen requirement is at baseline 3 L Continue flutter valve for airway clearance while inpatient Chest x-ray read as no acute findings CPAP intolerant Essential tremors Continue on propranolol BPH Continue on dutasteride and tamsulosin HFpEF, compensated Home Lasix 40 mg twice daily. Currently doing once daily Lasix and will reassess tomorrow Mood disorder Continue duloxetine, citalopram Coronary artery disease HLD S/P stent Continue Plavix, statin, propranolol Hypothyroidism Continue levothyroxine Full code DVT prophylaxis: SQ heparin Admitted med surg PCP: Dr Sarkar Disposition: Anticipate pt will need acute rehab as lives home alone. CM made referral to [facility] and are awaiting formal PT recommendations at this time I spent a total of 40 minutes reviewing notes, outpatient records, labs, medication, coordinating, documenting and providing care for this patient excluding time spent in the performance of separately billed services and excluding time spent by another provider/QHP. Admission and Anticipated Discharge Date Admission Date: April 20, 2024 Subjective Seen and examined in 378-2 lying in bed. Reports hasn't had BM in 2 days and is feeling constipated and bloated. Reports passing flatus. Denies abdominal pain, nausea or vomiting. Otherwise patient feels that he is getting a bit stronger. He states he was able to ambulate to bathroom with walker with one person assist. He states not back at baseline yet but improved from yesterday. Denies fever/chills, diaphoresis, ASHLEY, dizziness, syncope, CP, SOB, orthopnea, palpitations, cough, sore throat, rhinorrhea, extremity edema, rashes, hematuria. Reports chronic urinary urgency, sensation of incomplete bladder empting and dysuria. Feels urinary symptoms at baseline. Follows with urology. Review of Systems Review of Systems: All systems reviewed & are unremarkable except as noted in HPI & below Physical Exam Physical Exam: General: no distress, WDWN, pleasant talkative elderly male Head: normocephalic, atraumatic Eyes: conjunctiva non-injected, anicteric ENT: normal inspection external ears, nose, mucous membranes moist Neck: supple, trachea midline Lungs: clear, no respiratory distress on chronic 3L O2 via NC, no wheezing/rhonchi/rales noted CV: RRR, no pretibial edema Abd: normal BS, soft, non-tender Ext: no cyanosis, no calf tenderness Neuro: A&O x 3, no focal deficits noted, normal affect Skin: warm, dry Results & Data Results & Data Vital Signs (Past 12 Hours) Vital Signs Temp Pulse Resp BP BP Pulse Ox O2 Del Method 04/22/24 07:59 36.5 C 56 L 18 135/74 94 Nasal Cannula 04/21/24 20:20 Nasal Cannula 04/21/24 20:19 36.3 C L 65 14 125/73 95 Nasal Cannula O2 Flow Rate 04/22/24 07:59 3 04/21/24 20:20 3 04/21/24 20:19 3 Laboratory Results [facility] 04/22/24 06:13 Sodium 136 Potassium 4.0 Chloride 95 L Carbon Dioxide 34 H BUN 16 Creatinine 0.84 Glucose 146 H Calcium 9.7
[2024-04-22] MEDS: MAGNESIUM HYDROXIDE SUSP 30 ML UDC PO PRN (12:15)
--- NOTE | 2024-04-22 12:41 | Hospitalist Progress Note ---
Date of Service April 22, 2024 Assessment & Plan Admission and Anticipated Discharge Date Admission Date: April 20, 2024 Supervising Physician Co-Signing Physician Notes Discussed with above provider. Patient is awaiting placement to rehab. Labs reviewed; BMP unremarkable. Continue PT OT while inpatient. I have reviewed the advanced practitioner's documentation, and I agree with, and take responsibility for the plan of care Results & Data Results & Data Vital Signs (Past 12 Hours) Vital Signs Temp Pulse Resp BP Pulse Ox O2 Del Method O2 Flow Rate 04/22/24 09:43 Nasal Cannula 3 04/22/24 07:59 36.5 C 56 L 18 135/74 94 Nasal Cannula 3
[2024-04-22] MEDS: bisacodyL 10 MG SUPP PR STA ×2 (13:57→21:31)
[2024-04-22] MEDS ORDERED: traMADol HCL 50 MG TABLET PO PRN (15:38)
[2024-04-22] MEDS: oxyCODONE HCL IR 5 MG TAB (IMMEDIATE RELEASE) PO PRN (16:39)
--- NOTE | 2024-04-23 09:43 | Hospitalist Progress Note ---
Date of Service April 23, 2024 Assessment & Plan (1) Ambulatory dysfunction: (2) Chronic hypoxic respiratory failure, on home oxygen therapy: (3) Physical deconditioning: Plan Patient is a 83-year-old male with past medical history of chronic right-sided heart failure, mild MR, CAD status post stenting, chronic respiratory failure secondary to restrictive lung disease/granulomatous lung disease on home O2 at 3L, EZEQUIEL (CPAP intolerance), nocturnal hypoxemia nasal cannula at night, HTN, hypothyroidism, essential tremors, anxiety/mood disorder, chronic back pain, BPH, past tobacco abuse who presented to the hospital after he was unable to get up from commode. Generalized weakness Likely physical deconditioning Patient presented to the hospital for weakness after unable to get off the commode 2 days ago. At baseline oxygen requirement of 3 L by nasal cannula No significant electrolyte abnormality. UA does not show signs of infection. Respiratory viral panel was negative CXR no acute findings PT OT evaluation is pending. Anticipate pt will need acute rehab as lives home alone. CM made referral to [facility] and are awaiting formal PT recommendations Chronic respiratory failure with hypoxia, on 3 to 4 L of oxygen Restrictive lung disease/granulomatous lung disease Oxygen requirement is at baseline 3 L Continue flutter valve for airway clearance while inpatient Chest x-ray read as no acute findings CPAP intolerant Essential tremors Continue on propranolol BPH Continue on dutasteride and tamsulosin HFpEF, compensated Home Lasix 40 mg twice daily. Currently doing once daily Lasix and is well compensated. BP 116/72 add daily weights, repeat labs cbc, bmp in a.m. Mood disorder Continue duloxetine, citalopram Coronary artery disease HLD S/P stent Continue Plavix, statin, propranolol Hypothyroidism Continue levothyroxine Full code DVT prophylaxis: SQ heparin Admitted med surg PCP: Dr Sarkar Disposition: Anticipate pt will need acute rehab as lives home alone. CM made referral to [facility] and awaiting call back, medically ready to discharge when bed available I spent a total of 42 minutes reviewing notes, outpatient records, labs, medication, coordinating, documenting and providing care for this patient excluding time spent in the performance of separately billed services and excluding time spent by another provider/QHP. Admission and Anticipated Discharge Date Admission Date: April 20, 2024 Subjective Pt was seen and examined in 378-2. He is sitting up in bedside chair. He reports finally moving some bowel last night. He feels being constipated aggravated his hemorrhoid. He denies f/c/s, chest pain, sob, n/v/d. He feels his breathing is at baseline. Review of Systems Review of Systems: All systems reviewed & are unremarkable except as noted in HPI & below Physical Exam Physical Exam: Gen: WD/WN, M, elderly, sitting in bedside chair on 3L of O2 via NC, NAD, A&O x3 HEENT: Normocephalic, atraumatic, conjunctivae moist, sclerae anicteric, mucous membranes moist. Lung: Clear to Auscultation bilaterally, diminished BS at bases, no wheezes/rales/rhonchi Heart: Regular rate, regular rhythm, no murmurs, rubs, or gallops Abdomen: Soft, NT, ND +BS x 4 Extremities: No edema Skin: Warm, no rash, negative turgor. Results & Data Results & Data Vital Signs (Past 12 Hours) Vital Signs Temp Pulse Pulse Resp BP Pulse Ox O2 Del Method 04/23/24 08:00 36.4 C L 60 16 116/72 Nasal Cannula 04/23/24 07:52 36.5 C 56 L 16 110/71 94 Nasal Cannula 04/23/24 07:45 Nasal Cannula O2 Flow Rate 04/23/24 08:00 3 04/23/24 07:52 3 04/23/24 07:45 3 Medications Administered Current Inpatient Medications Acetaminophen (Acetaminophen 500 Mg Tab) 1,000 mg PO Q8H PRN PRN Reason: fever or pain Stop: 05/20/24 09:28 Last Admin: 04/23/24 06:19 Dose: 1,000 mg Al Hydrox/Mg Hydrox/Simethicone (Aluminum/Magnesium Susp 30 Ml Udc) 30 ml PO Q6H PRN PRN Reason: Dyspepsia Stop: 05/20/24 09:28 Allopurinol (Allopurinol 100 Mg Tab) 200 mg PO DAILY [facility] Stop: 05/20/24 09:28 Last Admin: 04/23/24 07:50 Dose: 200 mg Citalopram Hydrobromide (Citalopram 20 Mg Tab) 20 mg PO DAILY [facility] Stop: 05/20/24 09:28 Last Admin: 04/23/24 07:50 Dose: 20 mg Clopidogrel Bisulfate (Clopidogrel Bisulfate 75 Mg Tab) 75 mg PO DAILY [facility] Stop: 05/20/24 09:28 Last Admin: 04/23/24 07:50 Dose: 75 mg Duloxetine HCl (Duloxetine Hcl 60 Mg Cap) 60 mg PO DAILY [facility] Stop: 05/20/24 09:28 Last Admin: 04/23/24 07:50 Dose: 60 mg Finasteride (Finasteride 5 Mg Tab) 5 mg PO DAILY [facility] Stop: 05/20/24 09:34 Last Admin: 04/23/24 07:51 Dose: 5 mg Furosemide (Furosemide 40 Mg Tab) 40 mg PO DAILY [facility] Stop: 05/20/24 09:28 Last Admin: 04/23/24 07:50 Dose: 40 mg Heparin Sodium (Porcine) (Heparin Sod 5,000 Unit/0.5 Ml Vial) 5,000 units SQ Q12H [facility] Stop: 05/20/24 09:44 Last Admin: 04/23/24 07:49 Dose: Not Given Hydrocortisone (Hydrocortisone Hc 2.5% Crm 30gm Tube) 1 appln EXT BID [facility] Stop: 05/23/24 20:59 Levothyroxine Sodium (Levothyroxine Sodium 112 Mcg Tablet) 112 mcg PO DAILYBB [facility] Stop: 05/21/24 06:29 Last Admin: 04/23/24 06:19 Dose: 112 mcg Magnesium Hydroxide (Magnesium Hydroxide Susp 30 Ml Udc) 30 ml PO Q6H PRN PRN Reason: Constipation Stop: 05/20/24 09:28 Last Admin: 04/22/24 12:15 Dose: 30 ml Montelukast Sodium (Montelukast Sodium 10 Mg Tablet) 10 mg PO QAM [facility] Stop: 05/20/24 09:28 Last Admin: 04/23/24 07:51 Dose: 10 mg Oxybutynin Chloride (Oxybutynin Chloride Xl 5 Mg Tabcr) 5 mg PO DAILY [facility] Stop: 05/20/24 10:59 Last Admin: 04/23/24 07:50 Dose: 5 mg Oxycodone HCl (Oxycodone Hcl Ir 5 Mg Tab (Immediate Release)) 2.5 mg PO Q6H PRN PRN Reason: Mod-Sev Pain (Scale 4-10) Stop: 05/06/24 16:17 Last Admin: 04/23/24 08:02 Dose: 2.5 mg Pantoprazole Sodium (Pantoprazole 40 Mg Tab) 40 mg PO DAILYBB [facility] Stop: 05/21/24 06:29 Last Admin: 04/23/24 06:19 Dose: 40 mg Polyethylene Glycol (Polyethylene (Miralax) 17 Gm Pack) 17 gm PO DAILY PRN PRN Reason: Constipation Stop: 05/20/24 09:28 Last Admin: 04/22/24 05:45 Dose: 17 gm Propranolol HCl (Propranolol Hcl 20 Mg Tab) 20 mg PO TID [facility] Stop: 05/20/24 09:28 Last Admin: 04/23/24 07:50 Dose: 20 mg Rosuvastatin Calcium (Rosuvastatin Calcium 5 Mg Tab) 5 mg PO QAM [facility] Stop: 05/20/24 09:28 Last Admin: 04/23/24 07:50 Dose: 5 mg Spironolactone (Spironolactone 12.5 Mg Tab) 12.5 mg PO MoWeFr@0900 [facility] Stop: 05/20/24 09:28 Last Admin: 04/23/24 07:51 Dose: 12.5 mg Tamsulosin HCl (Tamsulosin Hcl 0.4 Mg Cap) 0.4 mg PO HS [facility] Stop: 05/20/24 20:59 Last Admin: 04/22/24 21:13 Dose: 0.4 mg
[2024-04-23] MEDS: HYDROCORTISONE HC 2.5% CRM 30GM TUBE EXT SCH (22:03)
[2024-04-24 01:12] LABS: Appearance Urine Clear (Clear); Bacteria Urine Automated None Seen (None Seen); Bilirubin Urine Negative (Negative); Blood Urine 2+ (Negative); Cast Urine Automated 0-2 /lpf (0-2); Color Urine Yellow; Epithelial Cell Urine Auto 0-2 /hpf (0-2); Glucose Urine UA Negative (Negative); Ketones Urine Negative (Negative); Leukocyte Esterase Urine Trace (Negative); Nitrite Urine Negative (Negative); Protein Urine Negative (Negative); RBC Urine Automated >20 /hpf (0-2); Specific Gravity Urine 1.014 (1.000-1.030); Urobilinogen Urine Negative (Negative); WBC Urine Automated 0-5 /hpf (0-5)
--- NOTE | 2024-04-24 07:32 | Hospitalist Progress Note ---
Date of Service April 24, 2024 Assessment & Plan (1) Ambulatory dysfunction: (2) Chronic hypoxic respiratory failure, on home oxygen therapy: (3) Physical deconditioning: Plan Patient is a 83-year-old male with past medical history of chronic right-sided heart failure, mild MR, CAD status post stenting, chronic respiratory failure secondary to restrictive lung disease/granulomatous lung disease on home O2 at 3L, EZEQUIEL (CPAP intolerance), nocturnal hypoxemia nasal cannula at night, HTN, hypothyroidism, essential tremors, anxiety/mood disorder, chronic back pain, BPH, past tobacco abuse who presented to the hospital after he was unable to get up from commode. Generalized weakness Likely physical deconditioning Patient presented to the hospital for weakness after unable to get off the commode 2 days ago. At baseline oxygen requirement of 3 L by nasal cannula No significant electrolyte abnormality. UA does not show signs of infection. Respiratory viral panel was negative CXR no acute findings PT/OT saw pt Pt with some mild confusion yesterday, thought maybe 2/2 oxy which has since been discontinued Discharge to [facility] on Chronic respiratory failure with hypoxia and hypercarbia, on 3 to 4 L of oxygen Restrictive lung disease/granulomatous lung disease Oxygen requirement is at baseline 3 L Continue flutter valve for airway clearance while inpatient Chest x-ray read as no acute findings CPAP intolerant, pt with chronic hypercarbia, if pt has return of confusion could trial bipap Essential tremors Continue on propranolol BPH Continue on dutasteride and tamsulosin HFpEF, compensated Home Lasix 40 mg twice daily. Currently doing once daily Lasix and is well compensated. BP 116/72 add daily weights, repeat labs cbc, bmp in a.m. Mood disorder Continue duloxetine, citalopram Coronary artery disease HLD S/P stent Continue Plavix, statin, propranolol Hypothyroidism Continue levothyroxine Full code DVT prophylaxis: SQ heparin Admitted med surg PCP: Dr Sarkar Disposition: Pt medically stable for D/C, Plan for [facility] on I spent a total of 41 minutes reviewing notes, outpatient records, labs, medication, coordinating, documenting and providing care for this patient excluding time spent in the performance of separately billed services and excluding time spent by another provider/QHP. Admission and Anticipated Discharge Date Admission Date: April 20, 2024 Subjective Pt was seen and examined in 378-2. He reports wanting to walk the halls yesterday, but he wasn't allowed. He denies f/c/s, chest pain, n/v/d. He has chronic SOB and feels it is at baseline. Review of Systems Review of Systems: All systems reviewed & are unremarkable except as noted in HPI & below Physical Exam Physical Exam: Gen: WD/WN, M, elderly, sitting up in bed on 3L of O2 via NC, NAD, A&O x3 HEENT: Normocephalic, atraumatic, conjunctivae moist, sclerae anicteric, mucous membranes moist. Lung: Clear to Auscultation bilaterally, diminished BS at bases, no wheezes/rales/rhonchi Heart: Regular rate, regular rhythm, no murmurs, rubs, or gallops Abdomen: Soft, NT, ND +BS x 4 Extremities: No edema Skin: Warm, no rash, negative turgor. Results & Data Results & Data Vital Signs (Past 12 Hours) Vital Signs Temp Pulse Resp BP BP Pulse Ox O2 Del Method 04/24/24 07:16 36.6 C 59 L 18 116/73 94 Nasal Cannula 04/23/24 22:00 Nasal Cannula 04/23/24 21:59 67 119/73 96 Nasal Cannula 04/23/24 20:35 36.4 C L 61 18 120/74 94 Nasal Cannula O2 Flow Rate 04/24/24 07:16 3.0 04/23/24 22:00 3 04/23/24 21:59 3 04/23/24 20:35 3 Laboratory Results I have independently reviewed and interpreted patient's cbc, bmp, vbg Medications Administered Current Inpatient Medications Acetaminophen (Acetaminophen 500 Mg Tab) 1,000 mg PO Q8H PRN PRN Reason: fever or pain Stop: 05/20/24 09:28 Last Admin: 04/23/24 06:19 Dose: 1,000 mg Al Hydrox/Mg Hydrox/Simethicone (Aluminum/Magnesium Susp 30 Ml Udc) 30 ml PO Q6H PRN PRN Reason: Dyspepsia Stop: 05/20/24 09:28 Allopurinol (Allopurinol 100 Mg Tab) 200 mg PO DAILY [facility] Stop: 05/20/24 09:28 Last Admin: 04/24/24 08:41 Dose: 200 mg Citalopram Hydrobromide (Citalopram 20 Mg Tab) 20 mg PO DAILY [facility] Stop: 05/20/24 09:28 Last Admin: 04/24/24 08:40 Dose: 20 mg Clopidogrel Bisulfate (Clopidogrel Bisulfate 75 Mg Tab) 75 mg PO DAILY [facility] Stop: 05/20/24 09:28 Last Admin: 04/24/24 08:40 Dose: 75 mg Duloxetine HCl (Duloxetine Hcl 60 Mg Cap) 60 mg PO DAILY [facility] Stop: 05/20/24 09:28 Last Admin: 04/24/24 08:40 Dose: 60 mg Finasteride (Finasteride 5 Mg Tab) 5 mg PO DAILY [facility] Stop: 05/20/24 09:34 Last Admin: 04/24/24 08:40 Dose: 5 mg Furosemide (Furosemide 40 Mg Tab) 40 mg PO DAILY [facility] Stop: 05/20/24 09:28 Last Admin: 04/24/24 08:41 Dose: 40 mg Heparin Sodium (Porcine) (Heparin Sod 5,000 Unit/0.5 Ml Vial) 5,000 units SQ Q12H [facility] Stop: 05/20/24 09:44 Last Admin: 04/24/24 08:41 Dose: Not Given Hydrocortisone (Hydrocortisone Hc 2.5% Crm 30gm Tube) 1 appln EXT BID [facility] Stop: 05/23/24 20:59 Last Admin: 04/24/24 08:41 Dose: 1 appln Levothyroxine Sodium (Levothyroxine Sodium 112 Mcg Tablet) 112 mcg PO DAILYBB [facility] Stop: 05/21/24 06:29 Last Admin: 04/24/24 05:41 Dose: 112 mcg Magnesium Hydroxide (Magnesium Hydroxide Susp 30 Ml Udc) 30 ml PO Q6H PRN PRN Reason: Constipation Stop: 05/20/24 09:28 Last Admin: 04/22/24 12:15 Dose: 30 ml Montelukast Sodium (Montelukast Sodium 10 Mg Tablet) 10 mg PO QAM [facility] Stop: 05/20/24 09:28 Last Admin: 04/24/24 08:41 Dose: 10 mg Oxybutynin Chloride (Oxybutynin Chloride Xl 5 Mg Tabcr) 5 mg PO DAILY [facility] Stop: 05/20/24 10:59 Last Admin: 04/24/24 08:40 Dose: 5 mg Pantoprazole Sodium (Pantoprazole 40 Mg Tab) 40 mg PO DAILYBB [facility] Stop: 05/21/24 06:29 Last Admin: 04/24/24 05:41 Dose: 40 mg Polyethylene Glycol (Polyethylene (Miralax) 17 Gm Pack) 17 gm PO DAILY PRN PRN Reason: Constipation Stop: 05/20/24 09:28 Last Admin: 04/22/24 05:45 Dose: 17 gm Propranolol HCl (Propranolol Hcl 20 Mg Tab) 20 mg PO TID [facility] Stop: 05/20/24 09:28 Last Admin: 04/24/24 08:40 Dose: Not Given Rosuvastatin Calcium (Rosuvastatin Calcium 5 Mg Tab) 5 mg PO QAM [facility] Stop: 05/20/24 09:28 Last Admin: 04/24/24 08:40 Dose: 5 mg Spironolactone (Spironolactone 12.5 Mg Tab) 12.5 mg PO MoWeFr@0900 [facility] Stop: 05/20/24 09:28 Last Admin: 04/23/24 07:51 Dose: 12.5 mg Tamsulosin HCl (Tamsulosin Hcl 0.4 Mg Cap) 0.4 mg PO HS [facility] Stop: 05/20/24 20:59 Last Admin: 04/23/24 22:01 Dose: 0.4 mg
[2024-04-24 08:09] LABS: Base Excess VBG 14.6 mEq/L; HCO3 VBG 41 mmol/L; Oxygen Saturation VBG < 60.0 %; PCO2 VBG 58 mmHg (38-50); PO2 VBG 32 mmHg; pH VBG 7.46 (7.36-7.41)
[2024-04-24 08:22] LABS: Hematocrit (blood only) 41.1 % (42.0-52.0); Hemoglobin 13.6 g/dl (14.0-18.0); Mean Corpuscular Hemoglobin 30.7 pg (25.0-34.0); Mean Corpuscular Hgb Conc 33.1 g/dL (32.0-36.0); Mean Corpuscular Volume 92.8 fL (80.0-100.0); Mean Platelet Volume 9.7 fL (9.4-12.4); Platelet Count 151 K/uL (130-400); RDW Coefficient of Variation 13.8 % (11.5-14.5); RDW Standard Deviation 46.6 fL (36.4-46.3); Red Blood Count 4.43 M/uL (4.70-6.10); White Blood Count 9.88 K/ul (4.8-10.8)
[2024-04-24 08:39] LABS: BUN Creatinine Ratio 13.8 (10-20); Calcium 9.8 mg/dl (8.6-10.3); Creatinine Clr Calc Pharmacy 68.9 ml/min; Potassium 4.1 mmol/L (3.5-5.1)
[2024-04-24] MEDS: MELATONIN 3 MG TAB PO PRN (21:05)
--- NOTE | 2024-04-25 11:23 | Hospitalist Progress Note ---
Date of Service April 25, 2024 Assessment & Plan (1) Ambulatory dysfunction: (2) Chronic hypoxic respiratory failure, on home oxygen therapy: (3) Physical deconditioning: Plan Patient is a 83-year-old male with past medical history of chronic right-sided heart failure, mild MR, CAD status post stenting, chronic respiratory failure secondary to restrictive lung disease/granulomatous lung disease on home O2 at 3L, EZEQUIEL (CPAP intolerance), nocturnal hypoxemia nasal cannula at night, HTN, hypothyroidism, essential tremors, anxiety/mood disorder, chronic back pain, BPH, past tobacco abuse who presented to the hospital after he was unable to get up from commode. Generalized weakness Likely physical deconditioning Patient presented to the hospital for weakness after unable to get off the commode 2 days ago. At baseline oxygen requirement of 3 L by nasal cannula No significant electrolyte abnormality. UA does not show signs of infection. Respiratory viral panel was negative CXR no acute findings PT/OT saw pt Pt with some mild confusion on 04/24, thought maybe 2/2 oxy which has since been discontinued vs hypoxia as pt was without his oxygen Discharge to [facility] on Chronic respiratory failure with hypoxia and hypercarbia, on 3 to 4 L of oxygen Restrictive lung disease/granulomatous lung disease Oxygen requirement is at baseline 3 L Continue flutter valve for airway clearance while inpatient Chest x-ray read as no acute findings CPAP intolerant, pt with chronic hypercarbia Essential tremors Continue on propranolol BPH Continue on dutasteride and tamsulosin HFpEF, compensated Home Lasix 40 mg twice daily. Currently doing once daily Lasix and is well compensated. BP 116/72 daily weights weight down to 68.4kg from 77kg on admission Mood disorder Continue duloxetine, citalopram Coronary artery disease HLD S/P stent Continue Plavix, statin, propranolol Hypothyroidism Continue levothyroxine Full code DVT prophylaxis: SQ heparin Admitted med surg PCP: Dr Sarkar Disposition: Pt medically stable for D/C, Plan for [facility] on I spent a total of 40 minutes reviewing notes, outpatient records, labs, medication, coordinating, documenting and providing care for this patient excluding time spent in the performance of separately billed services and excluding time spent by another provider/QHP. Pt was seen and examined in collaboration with Dr. Duenas, please see addendum Admission and Anticipated Discharge Date Admission Date: April 20, 2024 Supervising Physician Co-Signing Physician Notes Patient is seen and examined at bedside. Sleepy during my encounter. Seem to have generalized tremors. Offers no specific complaints, poor historian. Patient is chronically appearing, no apparent distress, generalized tremor, decreased breath sounds, S1, S2, no murmur. Patient currently being managed for generalized weakness secondary to physical deconditioning, chronic restrictive lung disease, essential tremors. Waiting for rehab placement. I personally interviewed and examined the patient at bedside. I have reviewed the advanced practitioner's documentation on the date of service referred in note and agree with plan. Patient's care is coordinated with Shanta Jean Baptiste. Please refer to the documentation above for details of patient's presentation and for discussion of other issues. I spent a total [id number] coordinating, documenting, and providing care for this patient excluding time spent in the performance of separately billed services or time spent by another provider/QHP. Subjective Pt was seen and examined in 378-2. He is sitting up in bedside chair eating breakfast. He feels his tremors are worse today. He denies f/c/s, chest pain, sob, n/v. He feels his breathing is at baseline. Review of Systems Review of Systems: All systems reviewed & are unremarkable except as noted in HPI & below Physical Exam Physical Exam: Gen: WD/WN, M, elderly, sitting up in bedside chair on 3L of O2 via NC, NAD, A&O x3 to basics HEENT: Normocephalic, atraumatic, conjunctivae moist, sclerae anicteric, mucous membranes moist. Lung: Clear to Auscultation bilaterally, diminished BS at bases, no wheezes/rales/rhonchi Heart: Regular rate, regular rhythm, no murmurs, rubs, or gallops Abdomen: Soft, NT, ND +BS x 4 Extremities: No edema Skin: Warm, no rash, negative turgor. Results & Data Results & Data Vital Signs (Past 12 Hours) Vital Signs Temp Pulse Resp BP Pulse Ox O2 Del Method O2 Flow Rate 04/25/24 07:40 36.5 C 57 L 16 110/65 94 Nasal Cannula 3 04/25/24 07:28 Nasal Cannula 3 Medications Administered Current Inpatient Medications Acetaminophen (Acetaminophen 500 Mg Tab) 1,000 mg PO Q8H PRN PRN Reason: fever or pain Stop: 05/20/24 09:28 Last Admin: 04/25/24 09:38 Dose: 1,000 mg Al Hydrox/Mg Hydrox/Simethicone (Aluminum/Magnesium Susp 30 Ml Udc) 30 ml PO Q6H PRN PRN Reason: Dyspepsia Stop: 05/20/24 09:28 Allopurinol (Allopurinol 100 Mg Tab) 200 mg PO DAILY SAHIL Stop: 05/20/24 09:28 Last Admin: 04/25/24 09:38 Dose: 200 mg Citalopram Hydrobromide (Citalopram 20 Mg Tab) 20 mg PO DAILY SAHIL Stop: 05/20/24 09:28 Last Admin: 04/25/24 09:39 Dose: 20 mg Clopidogrel Bisulfate (Clopidogrel Bisulfate 75 Mg Tab) 75 mg PO DAILY SAHIL Stop: 05/20/24 09:28 Last Admin: 04/25/24 09:38 Dose: 75 mg Duloxetine HCl (Duloxetine Hcl 60 Mg Cap) 60 mg PO DAILY SAHIL Stop: 05/20/24 09:28 Last Admin: 04/25/24 09:39 Dose: 60 mg Finasteride (Finasteride 5 Mg Tab) 5 mg PO DAILY SAHIL Stop: 05/20/24 09:34 Last Admin: 04/25/24 09:41 Dose: 5 mg Furosemide (Furosemide 40 Mg Tab) 40 mg PO DAILY SAHIL Stop: 05/20/24 09:28 Last Admin: 04/25/24 09:39 Dose: 40 mg Heparin Sodium (Porcine) (Heparin Sod 5,000 Unit/0.5 Ml Vial) 5,000 units SQ Q12H SAHIL Stop: 05/20/24 09:44 Last Admin: 04/25/24 09:48 Dose: Not Given Hydrocortisone (Hydrocortisone Hc 2.5% Crm 30gm Tube) 1 appln EXT BID SAHIL Stop: 05/23/24 20:59 Last Admin: 04/25/24 09:41 Dose: 1 appln Levothyroxine Sodium (Levothyroxine Sodium 112 Mcg Tablet) 112 mcg PO DAILYBB SAHIL Stop: 05/21/24 06:29 Last Admin: 04/25/24 06:20 Dose: 112 mcg Magnesium Hydroxide (Magnesium Hydroxide Susp 30 Ml Udc) 30 ml PO Q6H PRN PRN Reason: Constipation Stop: 05/20/24 09:28 Last Admin: 04/22/24 12:15 Dose: 30 ml Melatonin (Melatonin 3 Mg Tab) 3 mg PO HS PRN PRN Reason: Sleep Stop: 05/24/24 19:35 Last Admin: 04/24/24 21:05 Dose: 3 mg Montelukast Sodium (Montelukast Sodium 10 Mg Tablet) 10 mg PO QAM [facility] Stop: 05/20/24 09:28 Last Admin: 04/25/24 09:39 Dose: 10 mg Oxybutynin Chloride (Oxybutynin Chloride Xl 5 Mg Tabcr) 5 mg PO DAILY SAHIL Stop: 05/20/24 10:59 Last Admin: 04/25/24 09:39 Dose: 5 mg Pantoprazole Sodium (Pantoprazole 40 Mg Tab) 40 mg PO DAILYBB [facility] Stop: 05/21/24 06:29 Last Admin: 04/25/24 06:20 Dose: 40 mg Polyethylene Glycol (Polyethylene (Miralax) 17 Gm Pack) 17 gm PO DAILY PRN PRN Reason: Constipation Stop: 05/20/24 09:28 Last Admin: 04/22/24 05:45 Dose: 17 gm Propranolol HCl (Propranolol Hcl 20 Mg Tab) 20 mg PO TID [facility] Stop: 05/20/24 09:28 Last Admin: 04/25/24 09:39 Dose: Not Given Rosuvastatin Calcium (Rosuvastatin Calcium 5 Mg Tab) 5 mg PO QAM [facility] Stop: 05/20/24 09:28 Last Admin: 04/25/24 09:38 Dose: 5 mg Spironolactone (Spironolactone 12.5 Mg Tab) 12.5 mg PO MoWeFr@0900 [facility] Stop: 05/20/24 09:28 Last Admin: 04/25/24 09:39 Dose: 12.5 mg Tamsulosin HCl (Tamsulosin Hcl 0.4 Mg Cap) 0.4 mg PO HS [facility] Stop: 05/20/24 20:59 Last Admin: 04/24/24 21:05 Dose: 0.4 mg
[2024-04-25 20:48] VITALS: O2SAT 96
--- NOTE | 2024-04-26 07:06 | Discharge Summary ---
Discharge Summary Date of Service April 26, 2024 Principal Dx & Hospital Course #1 = Principal Diagnosis (1) Physical deconditioning: (2) Ambulatory dysfunction: Fabian Starks is an 83y/o M with PMHx significant for chronic R-sided HF, mild MR, CAD s/p stenting, chronic respiratory failure with hypoxia 2/2 restrictive lung disease/granulomatous lung disease on baseline 3-4L O2, EZEQUIEL with CPAP intolerance, nocturnal hypoxemia with NC HS, HTN, hypothyroidism, essential tremors, anxiety/mood disorder, chronic back pain, BPH and past tobacco abuse who presented to [facility] on 04/20/24 after he was unable to get up from the commode at home. Presented to the ED with generalized weakness after he was unable to get up off of the commode as per above. At baseline O2 requirement of 3-4L NC. No significant electrolyte abnormality. UA without evidence of infection. RVP negative. CXR with no acute findings. PT/OT evaluated patient; recommended rehab placement. Patient being discharged to [facility] today. Back to baseline mentation status at time of discharge; Had some mild confusion on 04/24/24 - thought 2/2 oxycodone which has since been discontinued vs acute hypoxia as patient was w/o his O2 when this occurred. (3) Restrictive lung disease: (4) Chronic hypoxic respiratory failure, on home oxygen therapy: On baseline 3-4L NC O2 requirement. CXR was unremarkable as per above. CPAP intolerant; patient with chronic hypercarbia. Continue Singulair. (5) Essential tremor: Chronic, stable. Continue propranolol on discharge. (6) BPH (benign prostatic hyperplasia): Chronic, stable. Continue dutasteride and tamsulosin on discharge. (7) (HFpEF) heart failure with preserved ejection fraction: Weight down from 77kg on admission to 71.6kg on discharge. Continue spironolactone. Lasix dose decreased from 40mg BID to 40mg daily. Well compensated, continue new Lasix dose on discharge. (8) Mood disorder: Chronic, stable. Continue duloxetine and citalopram. (9) Hyperlipidemia: (10) CAD (coronary artery disease): S/p stenting. Continue Plavix, statin and propranolol on discharge. (11) Hypothyroidism: TSH WNL this admission. Continue levothyroxine. PCP: Jennifer Sarkar MD Disposition: Patient is being discharged in stable condition to [facility] for rehabilitation services. Patient seen in collaboration with Dr. Duenas. Please see addendum. I spent a total of 50 minutes coordinating, documenting, and providing care for this patient excluding time spent in the performance of separately billed services or time spent by another provider/QHP. This included personally reviewing all current laboratories and imaging studies, medical reconciliation, outpatient chart review and discussion with specialists. This chart was completed in part utilizing Speech Voice Recognition Software. Grammatical errors, random word insertions, pronoun errors, and incomplete sentences are an occasional consequence of this system due to software limitations, ambient noise, and hardware issues. Any formal questions or concerns about the content, text, or information contained within the body of this dictation should be directly addressed to the provider for clarification. Notes For Next Care Provider Will need PCP follow-up appointment within the next 1 to 2 weeks. Medication Changes From Visit Lasix dose decreased from 40mg BID to 40mg once daily. Admission HPI Per Admitting Provider History obtained from chart review and interview with the patient Medical history significant for chronic right-sided heart failure, mild MR, CAD status post stenting, chronic respiratory failure secondary to restrictive lung disease/granulomatous lung disease on home O2 at 3L, EZEQUIEL (CPAP intolerance), nocturnal hypoxemia nasal cannula at night, HTN, hypothyroidism, essential tremors, anxiety/mood disorder, chronic back pain, BPH, past tobacco abuse Last admission in December 2023 after slipping out of the chair and trouble getting up; was discharged home with home health Patient presents today after he was unable to get off the commode. Patient denies any focal weakness/numbness, visual issues, headache, fever, chills, abdominal pain, chest pain or increasing shortness of breath .Patient also denies loss of consciousness or dizziness He lives by himself and walks with the help of a walker. Patient was observed in the ED; was initially planned to be discharged. However, patient reported that he will likely benefit from rehab; was then referred for admission. Admission Exam Per Admitting Provider Constitutional: Awake alert oriented x 3. Has essential tremors. Respiratory: Bilateral vesicular breath sound. Cardiovascular: RRR, no murmur, no edema Vessels: no JVD or carotid bruit Chest: normal inspection of chest Abdomen: normal bowel sounds, soft, nontender, no hepatosplenomegaly Musculoskeletal: no cyanosis or clubbing, extremities motor strength 5/5 Skin: no rashes, warm and dry normal turgor Neurologic: PERRL, EOMI, accommodation nl, no face palsy, no dysarthria CN's II- XI intact bilaterally and moves all extremities Discharge Exam General: WD/WN, NAD, sitting up in bed, very pleasant, conversing appropriately. A+Ox3. Generalized tremor. HEENT: Normocephalic, atraumatic. Conjunctivae normal. External ear and nose normal, oropharynx normal. Respiratory: Normal respiratory effort, decreased breath sounds throughout. On baseline 3L NC. Cardiovascular: Regular rate, rhythm, normal peripheral pulses, no BLE edema. Vessels: No JVD. Abdomen/GI: Normal bowel sounds, soft, nondistended, nontender to palpation in all quadrants. Extremities/Musculoskeletal: No cyanosis or clubbing. Able to actively move all extremities. Neurologic: No overt focal deficits, CN's II-XI not formally tested but appear grossly intact bilaterally. Updated Medication List Medication Instructions Recorded Confirmed Type acetaminophen 500 mg tablet 1,000 mg (2 x 500 mg) PO Q8H PRN 07/13/23 04/20/24 Rx (Tylenol Extra Strength) fever or pain #90 tabs levothyroxine 112 mcg tablet 112 mcg PO DAILYBB #30 tabs 07/13/23 04/20/24 Rx montelukast 10 mg tablet 10 mg PO QAM #30 tabs 07/13/23 04/20/24 Rx (Singulair) pantoprazole 20 mg tablet,delayed 20 mg PO DAILYBB #30 tabs 07/13/23 04/20/24 Rx release propranolol 20 mg tablet 20 mg PO TID #90 tabs 07/13/23 04/20/24 Rx rosuvastatin 5 mg tablet 5 mg PO QAM #30 tabs 07/13/23 04/20/24 Rx tamsulosin 0.4 mg capsule 0.4 mg PO HS #30 caps 07/13/23 04/20/24 Rx allopurinol 100 mg tablet 200 mg PO 1XD 04/20/24 04/20/24 History citalopram 20 mg tablet 20 mg PO 1XD 04/20/24 04/20/24 History clopidogrel 75 mg tablet (Plavix) 75 mg PO 1XD 04/20/24 04/20/24 History duloxetine 60 mg capsule,delayed 60 mg PO 1XD 04/20/24 04/20/24 History release dutasteride 0.5 mg capsule 0.5 mg PO 1XD 04/20/24 04/20/24 History solifenacin 5 mg tablet 5 mg PO 1XD 04/20/24 04/20/24 History spironolactone 25 mg tablet See Rx Instructions .Route .COMPLEX 04/20/24 04/20/24 History furosemide 40 mg tablet 40 mg PO DAILY #30 tabs 04/26/24 Rx Hospital Stay Data Consultations 04/20/24 07:59 ED Decision to Admit Stat Discharge Instructions Given to Patient (Per Discharging Provider) Mr. Starks, kalani were admitted to [facility] due to generalized weakness and overall physical deconditioning. Physical deconditioning refers to the process where your body becomes weaker and less efficient due to a period of inactivity or not using your muscles as much as normal. This often happens when you're unable to move around or exercise as you usually would. When you dont use your muscles regularly, they can shrink and lose strength. You might feel more tired, weak, or out of breath with even simple activities. This is a common issue, especially after long periods of not being active. We performed several tests to rule-out any source of infection that could be contributing to your weakness including chest x-ray, respiratory viral panel and urinalysis which all came back NEGATIVE. You received both physical and occupational therapy services while you were admitted. It was recommended that you are discharged to a [facility] facility for further rehabilitation services in order to eventually return home safely. You are being discharged to [facility] for rehabilitation services. MEDICATION CHANGES: 1. Furosemide (Lasix) dose DECREASED from twice daily to ONCE DAILY in the morning. RECOMMENDATIONS FOR FOLLOW-UP: A hospital discharge follow-up appointment with your primary care provider (PCP) will be arranged by [facility]. Please take good care of yourself! It has been a pleasure taking care of you. If you have any questions regarding your recent hospitalization please contact [facility] and request Vincentella Erika @ [phone]. Total Time Total Time Spent Total Time Spent (In Minutes): 50 Supervising Physician Co-Signing Physician Notes Patient is seen and examined at bedside on day of discharge. Patient offers no new complaints today. Tremors seem to be much better today. Plan to be discharged to SNF today. Patient is chronically appearing, no apparent distress, generalized tremor, decreased breath sounds, S1, S2, no murmur. Patient currently being managed for generalized weakness secondary to physical deconditioning, chronic restrictive lung disease, essential tremors. Waiting f or rehab placement. I personally interviewed and examined the patient at bedside. I have reviewed the advanced practitioner's documentation on the date of service referred in note and agree with plan. Patient's care is coordinated with Doris Chavez PA-C. Please refer to the documentation above for details of patient's presentation and for discussion of other issues. I spent a total [id number] coordinating, documenting, and providing care for this patient excluding time spent in the performance of separately billed services or time spent by another provider/QHP.
[2024-04-26 07:33] VITALS: BP 101/69; PULSE 57; RESP 16; TEMP 97.7
== END 2024-04-26 13:43 | DRG 948 ==
LOC: ED 00:06 → INTOOBSV 08:50 → SUATTDRO 08:50 → EDINP 08:50 → 3N 09:30

== ENCOUNTER 2024-05-28 02:40 | Inpatient (IN) ==
--- OUTSIDE RECORDS SUMMARY | 2024-05-28 02:47 | External Medical Summary | Summary of Care ---
Author Name Unknown Organization [facility] Address [address] [place] [address] Phone [phone] Care Team Providers Care Federal Java Developer Name Role Phone Jennifer Sarkar MD Primary Care Provider Reason for Visit * Reason Onset Date Comments Test Results 05/18/2024 Encounter Details Date Type Department Care Team (Late st Contact Info) Description 05/18/2024 Telephone Cardiology, [facility] [address] [place] [address] Job Bravo PA-C [address] [place] [address] Test Results Allergies Active Allergy Reactions Criticality Noted Date Comments Food (See Comments) 03/21/2018 Other reaction(s): WAS TOLD NOT TO TAKE grapefruit Tramadol Other (Please comment) High 10/06/2020 Hallucinations documented as of this encounter (statuses as of 05/26/2024) Medications NITROGLYCERIN 0.4 MG SL SUBLIndications:Old myocardial [...] Active Additional Information Patient taking differently:1,000 mg [id number] PRN, ,may take 3rd dose in between --12/21/2021, Reported on 05/09/2024 Saline Nasal Gel (Nasogel)Indication s:Chronic respiratory failure with hypoxia (HCC),Supplemental oxygen dependent,Nasal septal perforation,Nose dryness Administer into each nostril daily. 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 90 Tablet 3 024 Active Montelukast Sodium 10 MG Oral [...] FROM 06/23/2023. 90 Capsule 3 024 Active Albuterol Sulfate HFA 108 (90 [...] the morning. 90 Capsule 3 024 Active Clopidogrel Bisulfate 75 MG Oral Tablet (pLAVix)Indications :S/P primary angioplasty with coronary stent TAKE 1 TABLET DAILY 90 Tablet 1 025 Active Allopurinol 100 MG Oral Tablet (Zyloprim) Take 2 Tablets by mouth in the morning. 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 180 Tablet 3 025 Active Citalopram Hydrobromide 20 MG Oral Tablet (CeleXA) TAKE 1 TABLET BY MOUTH EVERY DAY FOR DEPRESSION 90 Tablet 1 025 Active Docusate Sodium 100 MG Oral Capsule (Colace)Indications :Other constipation Take 1 Capsule by mouth in the morning and 1 Capsule before bedtime. 60 Capsule 11 025 Active Polyethylene Glycol 3350 17 GM/SCOOP Oral Powder (MiraLax)Indication s:Other constipation Dissolve one heaping tablespoon in 8 ounces of water or juice every 3 days as needed for constipation 025 Active Solifenacin Succinate 5 MG Oral Tablet (VESIcare) Take 1 Tablet by mouth in the morning. 90 Tablet 1 025 Active Spironolactone 25 MG Oral Tablet (Aldactone) Take 0.5 Tablets by mouth in the morning. 45 Tablet 3 025 Active Rosuvastatin Calcium 5 MG Oral Tablet (Crestor)Indication s:Dyslipidemia, goal LDL below 100,S/P primary angioplasty with coronary stent TAKE 1 TABLET BY MOUTH EVERY DAY 30 Tablet 5 024 2024 Discontin ued(Refil l) Spironolactone 25 MG Oral Tablet (Aldactone) Take 0.5 Tablets by mouth once a day on Tuesday, Tuesday, and Tuesday only. 13 Tablet 5 025 2024 Discontin ued(Refil l) Potassium Chloride ER 20 MEQ Oral Tablet Extended Release Take 2 Tablets by mouth once for 1 dose. 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 Hypercalcemia 12/03/2022 Supplemental oxygen dependent 05/06/2022 Nasal septal perforation 05/06/2022 Chronic respiratory failure with hypoxia 022 Granulomatous lung disease 09/18/2021 Chronic rhinitis 06/10/2021 Schatzki's ring of distal esophagus 06/10/2021 Chronic right-sided heart failure 04/08/2020 Coronary artery disease invo lving kaltag coronary artery of k[place] heart without angina pectoris 11/21/2018 Abnormality of [...] as of this encounter (statuses as of 05/26/2024) Resolved Problems Problem Noted Date Diagnosed Date Resolved Date Right-sided heart failure 01/30/2020 Gastroesophageal reflux dise ase without esophagitis 03/12/2019 10/03/2019 Hepatomegaly 04/22/2011 11/21/2017 EXT ASTHMA W/O STATUS ASTHMATIC OR AC EXACER 0 04/22/2009 Dysuria 10/14/2008 05/20/2011 Other chest pain 10/09/2008 10/16/2008 INTERFACED RESULT 10/09/2008 05/20/2011 Acute coronary syndrome 10/09/200804/22 Labyrinthitis, unspecified 08/30/2005 0 07/21/2016 Overview (05/23/2024): ICD-10 Update of Inactive Term Edema 08/30/2005 11/21/2017 Benign localized hyperplasia of [...] as of this encounter (statuses as of 05/26/2024) Immunizations Name Administration Dates Next Due COVID-19 mRNA, LNP-s, No Pre serve, 2-Dose Series ([employer]Rover) 05/14/2020,04/18/2020 Covid-19, Mrna, Lnp-s, Pf, B ivalent, 30 Mcg, IM, 12 yrs and above ([employer]Rover) 07/01/2023 H1N1 2009 Influenza, IM 04/22/2009 PPD [...] Industry Job Start Date Job End Date [employer] Not on file Not on file Not on file documented as of this encounter Miscellaneous Notes * Telephone Encounter - Phillip Hess LPN - 05/18/2024 4:50 PM EDT Called patient and left a message on an identified voicemail to make patient aware. Lab ordered. Prescription pended. * Telephone Encounter - Job Bravo PA-C - 05/18/2024 4:44 PM EDT One time dose of potassium Message received from PCP, patient is taking furosemide 40 mg twice per day since 05/09/2024. On spironolactone 12.5 mg on MWF. Increase spironolactone to 12.5 mg daily Repeat basic metabolic panel in about 10 to 14 days Job Bravo PA-C Department of Cardiology * Telephone Encounter - Marley Booth CMA - 05/18/2024 3:21 PM EDT Called patient, he does not have current potassium rx. Preferred pharmacy is [facility]. Pendedjust one dose, unsure if you would like pt to take on routine basis. Pt asked if eating potassium rich foods would help as well. Stated importance of taking 40mEq forthwith as ordered by Job. Attempted to confirm medications, patient states his neighbor usually sorts his meds into pill case. Pt stated he was "pretty sure" he takes 40mg of Furosemide QAM and 20mg of Furosemide QPM. Med list states 40mg BID but pt said he thought that was changed to the above regimen. When asked about Spironolactone dose, pt could not recall this medication. Asked pt if prescriptions were nearby so he could confirm. Pt denied and asked what Med List instructions had listed, told him med list stated to take Spironolactone 12.5mg on MWF. Pt stated he was taking as prescribed and added that he believed Job only wanted him to take this until his next appt. Please advise. * Telephone Encounter - Marley Booth CMA - 05/18/2024 9:39 AM EDT LMOMTRC * Telephone Encounter - Marley Booth CMA - 05/18/2024 9:37 AM EDT ----- Message from Job Bravo sent at 05/18/2024 9:36 AM EDT ----- Potassium is low at 3.3 mmol/L Recommend a one time dose of potassium chloride, 40 mEq now Please verify current doses of both furosemide and spironolactone documented in this encounter Plan of Treatment Upcoming Encounters Date Type Department Care Team (Late st Contact Info) Description 05/28/2024 3:00 PM EDT [facility], [place] [address] [facility] [address] Krystal Wilson CRNP [address] [facility] [place] [address] 05/31/2024 10:40 AM EDT Office Visit Neurology [facility] [address] [facility] [place] [address] Ana María Santos MD [address] [facility] [place] [address] 06/07/2024 2:00 PM EDT Office Visit [address] [place] [address] Gypsy Mujica PA-C [address] [place] [address] [place] [address] 06/19/2024 10:30 AM EDT Office Visit Orthopaedics [facility] [address] [place] [phone] Ely Cabrales MD [address] [place] [phone] 07/11/2024 3:00 PM EDT Office Visit General Internal Medicine [facility] [address] [facility] [place] [address] Jennifer Sarkar MD [address] [facility] [place] [address] 07/23/2024 10:30 AM EDT Office Visit Urology, [facility] [address] [place] [phone] Man Gu MD [address] [place] [id number] Scheduled Orders Name Type Priority Associated Diagnoses Orde r Schedule BASIC METABOLIC PANEL Lab Routine Hypokalemia Expected: 05/25/2024 (Approximate), Expires: 05/18/2025 Scheduled Procedures Name Priority Associated Diagnoses Date/Ti me CYSTOURETHROSCOPY, WITH INSE RTION OF PERMANENT ADJUSTABLE TRANSPROSTATI IMPLANT; SINGLE IMPLANT Calculus of kidney BPH with obstruction/lower urinary tract symptoms COLONOSCOPY FLEXIBLE PROXIMA L DIAGNOSTIC Recall History of colon polyps Health Maintenance Due Date Last Done Comments Depression Monitoring 1952 Adult Wellness Visit 11/29/2017 11/29/2016 Colonoscopy 06/03/2022 06/03/2017, 02/01/2007 COVID-19 Vaccine ( season) 2023 07/01/2023, 05/14/2020, 04/18/2020 Albumin/Creatinine Ratio 09/09/2024 09/09/2021, 09/22 TSH 03/14/2025 03/14/2024, 11/22, 10/25/2023, Additional history exists GFR 05/17/2025 05/17/2024, 03/25, 03/14/2024, Additional history exists DXA Scan 08/29/2025 08/30/2023, [...] D LEVEL ONCE IN A LIFETIME-USE SMARTSET# [id number] Completed 03/14/2024, 10/20/2023, 08/17/2023, Additional history exists [...] encounter Medical Devices Implanted Type Area Nuclear Medicine Officer Device Identifier Shelf Expiration Date Model / Serial / Lot Lens Intraoc 23.0 - [id number] - [id number] Implanted:Qty: 1 on 12/21/2016 by Raj Bernard MD at OR [facility] Left: Eye [employer]OMB 06/20/2021 [id number] / [id number] / Lens Intraoc 22.0 - [id number] - [id number] Implanted:Qty: 1 on 01/06/2017 by Raj Bernard MD at OR [facility] Right: Eye BAUSCH [employer] LOMB 08/20/2021 [id number] / [id number] / [id number] documented as of this encounter Visit Diagnoses Diagnosis Hypokalemia- Primary Hypopotassemia documented in this encounter Advance Directives * [...] Power of Attor bj? No Care Teams Federal Java Developer Relationship Specialty Start Date End Date Jennifer Sarkar MD [address] [place] [address] PCP - General Internal Medicine 10/06/20 documented as of this encounter
--- OUTSIDE RECORDS SUMMARY | 2024-05-28 02:47 | External Medical Summary | Summary of Care ---
Author Name Unknown Organization [facility] Address [address] [facility] [place] [address] Phone [phone] Care Team Providers Care Tool Designer Apprentice Name Role Phone Jennifer Sarkar MD Primary Care Provider [phone] Reason for Visit * Reason Onset Date Comments Abnormal Test Results 03/15/2024 Vit D Encounter Details Date Type Department Care Team (Late st Contact Info) Description 03/15/2024 Telephone Rheumatology [facility] [address] [place] [phone] Meryl Santiago [facility] [address] [facility] [address] Abnormal Test Results (Vit D) Allergies Active Allergy Reactions Criticality Noted Date Comments Food (See Comments) 03/21/2018 Other reaction(s): WAS TOLD NOT TO TAKE grapefruit Tramadol Other (Please comment) High 10/06/2020 Hallucinations documented as of this encounter (statuses as of 05/22/2024) Medications NITROGLYCERIN 0.4 MG SL SUBLIndications:Ol d [...] Active Additional Information Patient taking differently:1,000 mg [id number] PRN, ,may take 3rd dose in between --12/21/2021, Reported on 05/09/2024 Saline Nasal Gel (Nasogel)Indicatio ns:Chronic respiratory failure [...] BEDTIME 90 Capsule 1 024 04/12 Discontinued Citalopram Hydrobromide 20 MG Oral Tablet (CeleXA) TAKE 1 TABLET BY MOUTH EVERY DAY FOR DEPRESSION 90 Tablet 1 024 04/24 Discontinued Rosuvastatin Calcium 5 MG Oral Tablet (Crestor)Indicatio ns:Dyslipidemia, goal LDL below 100,S/P primary angioplasty with coronary stent TAKE 1 TABLET BY MOUTH EVERY DAY 30 Tablet 5 024 05/21 Discontinued( Refill) Lidocaine 4 % External Patch (Aspercreme)Indica tions:Ambulatory dysfunction,Spinal stenosis of lumbar region without neurogenic claudication,Chron ic pain of both shoulders,Primary generalized (osteo)arthritis,C hronic low back pain without sciatica, unspecified back pain laterality Place 1 Patch over 12 hours topically on the skin daily. 30 Patch 5 024 05/09 Discontinued( Medication List Clean Up) Meclizine HCl 12.5 MG Oral Tablet (Antivert)Indicati ons:Dizziness,Marco A gn paroxysmal positional vertigo, unspecified laterality Take 1 Tablet by mouth daily as needed for Dizziness. 30 Tablet 024 04/20 Discontinued( End of Procedure) documented as of this encounter (statuses as of 05/22/2024) Active Problems Problem Noted Date Diagnosed Date [...] hypoxemia 06/08/2007 Overview (11/13/2012): [facility] [employer] SPINAL STENOSIS-LUMBAR 07/29/2005 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 Essential tremor documented as of this encounter (statuses as of 05/22/2024) Resolved Problems Problem Noted Date Diagnosed Date [...] and draped in usual sterile manner. 14 Japanese flexible cystoscope inserted into urethra and guided [...] as of this encounter (statuses as of 05/22/2024) Immunizations Name Administration Dates Next Due COVID-19 mRNA, LNP-s, No Pre serve, 2-Dose Series (Syllabuster) 05/14/2020,04/18/2020 Covid-19, Mrna, Lnp-s, Pf, B ivalent, [...] Industry Job Start Date Job End Date [employer] Not on file Not on file Not on file documented as of this encounter Miscellaneous Notes * Telephone Encounter - Danica Mccauley OSA - 05/22/2024 3:51 PM EDT I have not received the application back as of this date. I did call and left a voicemail asking for his daughter Ciara, who was handling this initially, to call and let me know if they have decided to proceed with financial assistance or do not wish to at this time. * Telephone Encounter - Raymundo Pyle LPN - 05/22/2024 2:27 PM EDT Was the FA application received for [facility]? * Telephone Encounter - Danica Mccauley OSA - 04/26/2024 12:15 PM EST SPOKE WITH DAUGHTER CIARA WHO STATED DID NOT RECEIVE APPLICATION IN MAIL. PROVIDED EMAIL ADDRESS AND EMAILED APPLICATION TO HER. SHE WILL GATHER THE INFORMATION AND RETURN WHEN ABLE, STATING SHE LIVES 3 HOURS AWAY FROM HER DAD. * Telephone Encounter - Niya Nunez LPN - 04/20/2024 3:10 PM EST Please reach out to pt to offer FA for prolia Thank you! * Telephone Encounter - Niya Nunez LPN - 03/23/2024 9:05 AM EST PT did not apply for FA at this time, but I can reach out to them and offer and will mail application to them. Thank you, [facility] Anna * Telephone Encounter - Niya Nunez LPN [...] unable to get Prolia due to the xak-ol-ylbcus cost. Advised me to contact his daughter to discuss Prolia further. documented in this encounter Plan of Treatment Upcoming Encounters Date Type Department Care Team (Late st Contact Info) Description 05/28/2024 3:00 PM EDT Office Visit Cardiology, [place] [address] [address] Krystal Wilson CRNP [address] [place] [address] 05/31/2024 10:40 AM EDT Office Visit Neurology [place] [address] [facility] [place] [address] Ana María Santos MD [address] [facility] [place] [address] 06/07/2024 2:00 PM EDT Office Visit [address] [place] [phone] Gypsy Mujica PA-C [address] [place] [address] [place] [address] 06/19/2024 10:30 AM EDT Office Visit Orthopaedics [facility] [address] [place] [phone] Ely Cabrales MD [address] [place] [phone] 07/11/2024 3:00 PM EDT Office Visit General Internal Medicine [facility] [address] [facility] [place] [address] Jennifer Sarkar MD [address] [facility] [place] [address] 07/23/2024 10:30 AM EDT Office Visit Urology, [facility] [address] [place] [phone] Man Gu MD [address] [place] [id number] Scheduled Procedures Name Priority Associated Diagnoses Date/Ti [...] D LEVEL ONCE IN A LIFETIME-USE SMARTSET# [id number] Completed 03/14/2024, 10/20/2023, 08/17/2023, Additional history exists [...] this encounter Medical Devices Implanted Type Area Registered Nurse Float Pool Device Identifier Shelf Expiration Date Model / Serial / Lot Lens Intraoc 23.0 - [id number] - [id number] Implanted:Qty: 1 on 12/21/2016 by Raj Bernard MD at OR [facility] Left: Eye BAUSCH [employer] LOMB 06/20/2021 [id number] / [id number] / Lens Intraoc 22.0 - [id number] - [id number] Implanted:Qty: 1 on 01/06/2017 by Raj Bernard MD at OR [facility] Right: Eye BAUSCH & LOMB 08/20/2021 [id number] / [id number] / [id number] documented as of this encounter Advance Directives [...] Power of Attor bj? No Care Teams Tool Designer Apprentice Relationship Specialty Start Date End Date Jennifer Sarkar MD [address] [facility] [place] [address] PCP - General Internal Medicine 10/06/20 documented as of this encounter
--- OUTSIDE RECORDS SUMMARY | 2024-05-28 02:47 | External Medical Summary | Summary of Care ---
Author Name Unknown Organization [facility] Address [address] [facility] [place] [address] Phone [phone] Care Team Providers Care Wire Coater Name Role Phone Jennifer Sarkar MD Primary Care Provider [phone] Encounter Details Date Type Department Care Team (Late st Contact Info) Description 05/18/2024 Refill Urology, [facility] [address] [facility] [place] [address] Man Talamantes MD 27 [facility] [place] [address] Allergies Active Allergy Reactions Criticality Noted Date Comments Food (See Comments) 03/21/2018 Other reaction(s): WAS TOLD NOT TO TAKE grapefruit Tramadol Other (Please comment) High 10/06/2020 Hallucinations documented as of this encounter (statuses as of 05/21/2024) Medications NITROGLYCERIN 0.4 MG SL SUBLIndications:Old myocardial [...] Active Additional Information Patient taking differently:1,000 mg OmvsK0V PRN, ,may take 3rd dose in between --12/21/2021, Reported on 05/09/2024 Saline Nasal Gel (Nasogel)Indication s:Chronic respiratory failure with hypoxia (HCC),Supplemental oxygen dependent,Nasal septal perforation,Nose dryness Administer into each nostril daily. 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 90 Tablet 1 025 Active Rosuvastatin Calcium 5 MG Oral Tablet (Crestor)Indication s:Dyslipidemia, goal LDL below 100,S/P primary angioplasty with coronary stent TAKE 1 TABLET BY MOUTH EVERY DAY 30 Tablet 5 024 2024 Disconti nued(Ref ill) Spironolactone 25 MG Oral Tablet (Aldactone) Take 0.5 Tablets by mouth once a day on Tuesday, Tuesday, and Tuesday only. 13 Tablet 5 025 2024 Disconti nued(Ref ill) Solifenacin Succinate 5 MG Oral Tablet (VESIcare) Take 1 Tablet by mouth in the morning. 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 Hypercalcemia 12/03/2022 Supplemental oxygen dependent 05/06/2022 Nasal septal perforation 05/06/2022 Chronic respiratory failure with hypoxia 022 Granulomatous lung disease 09/18/2021 Chronic rhinitis 06/10/2021 Schatzki's ring of distal esophagus 06/10/2021 Chronic right-sided heart failure 04/08/2020 Coronary artery disease invo lving nenana coronary artery of nenana heart without angina pectoris 11/21/2018 Abnormality of [...] 06/08/2007 Overview (11/13/2012): 3 LPM at bedtime NuPathe SPINAL STENOSIS-LUMBAR 07/29/2005 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 Essential tremor documented as of this encounter (statuses as of 05/21/2024) Resolved Problems Problem Noted Date Diagnosed Date [...] as of this encounter (statuses as of 05/21/2024) Immunizations Name Administration Dates Next Due COVID-19 mRNA, LNP-s, No Pre serve, 2-Dose Series (ViVu) 05/14/2020,04/18/2020 Covid-19, Mrna, Lnp-s, Pf, B ivalent, 30 Mcg, IM, 12 yrs and above (ViVu) 07/01/2023 H1N1 2009 Influenza, IM 04/22/2009 PPD [...] Industry Job Start Date Job End Date [employer] Not on file Not on file Not on file documented as of this encounter Miscellaneous Notes * Telephone Encounter - Martinez Valadez OSA - 05/21/2024 3:37 PM EDT Pt scheduled Elda 2nd at 10:30 AM * Telephone Encounter - Man Talamantes MD - 05/18/2024 1:21 PM EDTSigned Prescriptions: Disp Refills Solifenacin Succinate 5 MG Oral Tablet (VE*90 Tab*1 Sig: Take 1 Tablet by mouth in the morning.Authorizing Provider: MAN TALAMANTES * Telephone Encounter - Man Talamantes MD - 05/18/2024 1:21 PM EDT Please reschedule follow-up in July of 2024. Fifi, * Telephone Encounter - Lorena David LPN - 05/18/2024 10:19 AM EDT Received refill request off fax Please refill Solifenacin 12/20/2023 (in office), Visit date not found (telemedicine) Visit date not found . Review of patient's allergies indicates: Allergen Reactions Tramadol Other (Please comment) Hallucinations Food (See Comments) Other reaction(s): WAS TOLD NOT TO TAKE grapefruit documented in this encounter Plan of Treatment Upcoming Encounters Date Type Department Care Team (Late st Contact Info) Description 05/28/2024 3:00 PM EDT Office Visit Cardiology, [place] [address] [place] [address] Krystal Wilson CRNP [address] [address] 05/31/2024 10:40 AM EDT Office Visit Neurology [facility] [address] [facility] [place] [address] Ana María Santos MD 200 [facility] [place] [address] 06/07/2024 2:00 PM EDT Office Visit Dermatology, [place] [facility] [address] [facility] [place] [phone] Gypsy Mujica PA-C [address] [place] [address] [place] [address] 06/19/2024 10:30 AM EDT Office Visit Orthopaedics [facility] [address] [place] [phone] Ely Cabrales MD [address] [place] [phone] 07/11/2024 3:00 PM EDT Office Visit General Internal Medicine [facility] 200 [facility] [place] [address] Jennifer Sarkar MD 200 [facility] [place] [address] 07/23/2024 10:30 AM EDT Office Visit Urology, [facility] [address] [place] [phone] Man Talamantes MD 27 [place] [id number] Scheduled Procedures Name Priority Associated Diagnoses Date/Ti me CYSTOURETHROSCOPY, WITH INSE RTION OF PERMANENT ADJUSTABLE TRANSPROSTATI IMPLANT; SINGLE IMPLANT Calculus of kidney BPH with obstruction/lower urinary tract symptoms COLONOSCOPY FLEXIBLE PROXIMA L DIAGNOSTIC Recall History of colon polyps Health Maintenance Due Date Last Done Comments Adult Wellness Visit 11/29/2017 11/29/2016 Colonoscopy 06/03/2022 06/03/2017, 02/01/2007 Depression Monitoring 09/09/2022 COVID-19 Vaccine ( season) 2023 07/01/2023, 05/14/2020, [...] D LEVEL ONCE IN A LIFETIME-USE SMARTSET# [id number] Completed 03/14/2024, 10/20/2023, 08/17/2023, Additional history exists [...] this encounter Medical Devices Implanted Type Area Pump Installer Device Identifier Shelf Expiration Date Model / Serial / Lot Lens Intraoc 23.0 - [id number] - [id number] Implanted:Qty: 1 on 12/21/2016 by Raj Bernard MD at OR [facility] Left: Eye BAUSCH [employer] LOMB 06/20/2021 [id number] / [id number] / Lens Intraoc 22.0 - [id number] - [id number] Implanted:Qty: 1 on 01/06/2017 by Raj Bernard MD at OR [facility] Right: Eye BAUSCH & LOMB 08/20/2021 [id number] / [id number] / [id number] documented as of this encounter Advance Directives [...] Power of Attor bj? No Care Teams Wire Coater Relationship Specialty Start Date End Date Jennifer Sarkar MD 200 [place] [address] PCP - General Internal Medicine 10/06/20 documented as of this encounter
--- OUTSIDE RECORDS SUMMARY | 2024-05-28 02:47 | External Medical Summary | Summary of Care ---
Author Name Unknown Organization [facility] Address [address] [facility] [place] [address] Phone [phone] Care Team Providers Care Reed Or Wind Instrument Repairer Name Role Phone Jennifer Sarkar MD Primary Care Provider [phone] Reason for Visit * Reason Onset Date Comments Abnormal Test Results 03/15/2024 Vit D Encounter Details Date Type Department Care Team (Late st Contact Info) Description 03/15/[address] [facility] [address] [place] [address] Meryl Santiago [facility] [address] Abnormal Test Results (Vit D) Allergies Active Allergy Reactions Criticality Noted Date Comments Food (See Comments) 03/21/2018 Other reaction(s): WAS TOLD NOT TO TAKE grapefruit Tramadol Other (Please comment) High 10/06/2020 Hallucinations documented as of this encounter (statuses as of 05/23/2024) Medications NITROGLYCERIN 0.4 MG SL SUBLIndications:Ol d [...] Active Additional Information Patient taking differently:1,000 mg [id number] PRN, ,may take 3rd dose in between [...] as of this encounter (statuses as of 05/23/2024) Active Problems Problem Noted Date Diagnosed Date Calculus of kidney 04/18/2024 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 Hypercalcemia 12/03/2022 Supplemental oxygen dependent 05/06/2022 Nasal septal perforation 05/06/2022 Chronic respiratory failure with hypoxia 022 Granulomatous lung disease 09/18/2021 Chronic rhinitis 06/10/2021 Schatzki's ring of distal esophagus 06/10/2021 Chronic right-sided heart failure 04/08/2020 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 Essential tremor documented as of this encounter (statuses as of 05/23/2024) Resolved Problems Problem Noted Date Diagnosed Date [...] and draped in usual sterile manner. 14 Divehi flexible cystoscope inserted into urethra and guided [...] as of this encounter (statuses as of 05/23/2024) Immunizations Name Administration Dates Next Due COVID-19 mRNA, LNP-s, No Pre serve, 2-Dose Series (Edamam) 05/14/2020,04/18/2020 Covid-19, Mrna, Lnp-s, Pf, B ivalent, [...] Industry Job Start Date Job End Date [employer] Not on file Not on file [...] EDT Was the FA application received for [employer]? * Telephone Encounter - Danica Mccauley OSA [...] unable to get Prolia due to the [id number] cost. Advised me to contact his daughter to discuss Prolia further. documented in this encounter Plan of Treatment Upcoming Encounters Date Type Department Care Team (Late st Contact Info) Description 05/28/2024 3:00 PM EDT Office Visit Cardiology, [place] [address] [place] [address] Krystal Wilson CRNP [address] [place] [address] 05/31/2024 10:40 AM EDT Office Visit Neurology [place] 200 [facility] [place] [address] Ana María Santos MD 200 [facility] [place] [address] 06/07/2024 2:00 PM EDT Office Visit [address] [place] [address] Gypsy Mujica PA-C [address] [place] [address] [place] [address] 06/19/2024 10:30 AM EDT Office Visit Orthopaedics [facility] [address] [place] [address] Ely Cabrales MD [address] [place] [address] 07/11/2024 3:00 PM EDT Office Visit General Internal Medicine [facility] 200 [facility] [place] [address] Jennifer Sarkar MD 200 [facility] [place] [address] 07/23/2024 10:30 AM EDT Office Visit Urology, [facility] [address] [place] [address] Man [...] D LEVEL ONCE IN A LIFETIME-USE SMARTSET# [id number] Completed 03/14/2024, 10/20/2023, 08/17/2023, Additional history exists [...] this encounter Medical Devices Implanted Type Area Bracelet Form Coverer Device Identifier Shelf Expiration Date Model / Serial / Lot Lens Intraoc 23.0 - [id number] - [id number] Implanted:Qty: 1 on 12/21/2016 by Raj Bernard MD at OR [facility] Left: Eye BAUSCH [employer] LOMB 06/20/2021 [id number] / [id number] / Lens Intraoc 22.0 - [id number] - [id number] Implanted:Qty: 1 on 01/06/2017 by Raj Bernard MD at OR [facility] Right: Eye BAUSCH [employer] LOMB 08/20/2021 [id number] / [id number] / [id number] documented as of this encounter Advance Directives [...] Power of Attor bj? No Care Teams Reed Or Wind Instrument Repairer Relationship Specialty Start Date End Date Jennifer Sarkar MD 200 [place] [address] PCP - General Internal Medicine 10/06/20 documented as of this encounter
--- OUTSIDE RECORDS SUMMARY | 2024-05-28 02:47 | External Medical Summary | Summary of Care ---
Author Name Unknown Organization [facility] Address [address] [facility] [place] [address] Phone [phone] Care Team Providers Care Caravan Park And Camping Ground Manager Name Role Phone Jennifer Sarkar MD Primary Care Provider [phone] Encounter Details Date Type Department Care Team (Late st Contact Info) Description 05/18/2024 Refill Urology, [facility] 132 [facility] [place] [address] Man Talamantes MD 27 [facility] [place] [address] Allergies Active Allergy Reactions Criticality Noted Date Comments Food (See Comments) 03/21/2018 Other reaction(s): WAS TOLD NOT TO TAKE grapefruit Tramadol Other (Please comment) High 10/06/2020 Hallucinations documented as of this encounter (statuses as of 05/18/2024) Medications NITROGLYCERIN 0.4 MG SL SUBLIndications:Old myocardial [...] Active Additional Information Patient taking differently:1,000 mg [id number] PRN, ,may take 3rd dose in between --12/21/2021, Reported on 05/09/2024 Saline Nasal Gel (Nasogel)Indication s:Chronic respiratory failure with hypoxia (HCC),Supplemental oxygen dependent,Nasal septal perforation,Nose dryness Administer into each nostril daily. 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 14 Ukrainian flexible cystoscope inserted into urethra and guided [...] as of this encounter (statuses as of 05/18/2024) Immunizations Name Administration Dates Next Due COVID-19 mRNA, LNP-s, No Pre serve, 2-Dose Series (LivePerson) 05/14/2020,04/18/2020 Covid-19, Mrna, Lnp-s, Pf, B ivalent, 30 Mcg, IM, 12 yrs and above (LivePerson) 07/01/2023 H1N1 2009 Influenza, IM 04/22/2009 PPD [...] Industry Job Start Date Job End Date [employer] Not on file Not on file Not on file documented as of this encounter Miscellaneous Notes * Telephone Encounter - Man Talamantes MD - 05/18/2024 1:21 PM EDTSigned Prescriptions: Disp Refills Solifenacin Succinate 5 MG Oral Tablet (VE*90 Tab*1 Sig: Take 1 Tablet by mouth in the morning.Authorizing Provider: MAN TALAMANTES * Telephone Encounter - Man Talamantes MD - 05/18/2024 1:21 PM EDT Please reschedule follow-up in July of 2024. Thanks, HM * Telephone Encounter - Lorena David LPN [...] 05/28/2024 3:00 PM EDT Office Visit Cardiology, [place] [address] [place] [address] Krystal [facility] CRNP [facility] [place] [address] 05/31/2024 10:40 AM EDT Office Visit Neurology [place] [facility] [address] Ana María Santos MD 200 [facility] [place] [address] 06/07/2024 2:00 PM EDT Office Visit Dermatology, [address] [facility] [place] [phone] Gypsy Mujica PA-C [address] [place] [address] [place] [address] 06/19/2024 10:30 AM EDT Office Visit Orthopaedics [facility] [address] [place] [phone] Ely Cabrales MD [address] [place] [address] 07/11/2024 3:00 PM EDT Office Visit General Internal Medicine [facility] [place] [address] Jennifer Sarkar MD [facility] [place] [address] Scheduled Procedures Name Priority Associated Diagnoses Date/Ti [...] D LEVEL ONCE IN A LIFETIME-USE SMARTSET# [id number] Completed 03/14/2024, 10/20/2023, 08/17/2023, Additional history exists [...] this encounter Medical Devices Implanted Type Area Watch And Clock Maker And Repairer Device Identifier Shelf Expiration Date Model / Serial / Lot Lens Intraoc 23.0 - [id number] - [id number] Implanted:Qty: 1 on 12/21/2016 by Raj Bernard MD at OR [facility] Left: Eye BAUSCH & LOMB 06/20/2021 [id number] / [id number] / Lens Intraoc 22.0 - [id number] - [id number] Implanted:Qty: 1 on 01/06/2017 by Raj Bernard MD at OR [facility] Right: Eye BAUSCH & LOMB 08/20/2021 [id number] / [id number] / [id number] documented as of this encounter Advance Directives [...] Power of Attor bj? No Care Teams Caravan Park And Camping Ground Manager Relationship Specialty Start Date End Date Jennifer Sarkar MD [address] [place] [address] PCP - General Internal Medicine 10/06/20 documented as of this encounter
--- OUTSIDE RECORDS SUMMARY | 2024-05-28 02:47 | External Medical Summary | Summary of Care ---
Author Name Unknown Organization [facility] Address [address] [facility] [place] [address] Phone [phone] Care Team Providers Care General Passenger Agent Name Role Phone Domenica Sarkar MD Primary Care Provider [phone] Reason for Visit * Reason Onset Date Comments Medication Refill 05/21/2024 Encounter Details Date Type Department Care Team (Late st Contact Info) Description 05/21/2024 Refill General Internal Medicine [facility] [address] [facility] [place] [address] Domenica Sarkar MD [address] [facility] [place] [address] Dyslipidemia, goal LDL below 100; ANGIOPLASTY WITH CORONARY STENT TO LAD - bare Metal Allergies Active Allergy Reactions Criticality Noted Date Comments Food (See Comments) 03/21/2018 Other reaction(s): WAS TOLD NOT TO TAKE grapefruit Tramadol Other (Please comment) High 10/06/2020 Hallucinations documented as of this encounter (statuses as of 05/27/2024) Medications NITROGLYCERIN 0.4 MG SL SUBLIndications:Old myocardial [...] Active Additional Information Patient taking differently:1,000 mg [id number] PRN, ,may take 3rd dose in between --12/21/2021, Reported on 05/09/2024 Saline Nasal Gel (Nasogel)Indication s:Chronic respiratory failure with hypoxia (HCC),Supplemental oxygen dependent,Nasal septal perforation,Nose dryness Administer into each nostril daily. For dryness(nasal septal perforation) 14 g 023 Active oxygen 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:Social Media Strategist jonathan respiratory failure with hypoxia (HCC),Chronic right-sided [...] BY MOUTH EVERYDAY AT BEDTIME 90 Capsule 025 Active Furosemide 40 MG Oral Tablet (Lasix)Indications: Coronary artery disease involving little traverse coronary artery of little traverse heart without angina pectoris,Chronic right-sided heart failure [...] Tablet 5 024 2024 Disconti nued(Ref ill) documented as of this encounter (statuses as of 05/27/2024) Active Problems Problem Noted Date Diagnosed Date Calculus of kidney 04/18/2024 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 Hypercalcemia 12/03/2022 Supplemental oxygen dependent 05/06/2022 Nasal septal perforation 05/06/2022 Chronic respiratory failure with hypoxia 022 Granulomatous lung disease 09/18/2021 Chronic rhinitis 06/10/2021 Schatzki's ring of distal esophagus 06/10/2021 Chronic right-sided heart failure 04/08/2020 Coronary artery disease invo lving little traverse coronary artery of little traverse heart without angina pectoris 11/21/2018 Abnormality of [...] 06/08/2007 Overview (11/13/2012): 3 LPM at bedtime [employer] SPINAL STENOSIS-LUMBAR 07/29/2005 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 Essential tremor documented as of this encounter (statuses as of 05/27/2024) Resolved Problems Problem Noted Date Diagnosed Date [...] as of this encounter (statuses as of 05/27/2024) Immunizations Name Administration Dates Next Due COVID-19 mRNA, LNP-s, No Pre serve, 2-Dose Series ([employer]) 05/14/2020,04/18/2020 Covid-19, Mrna, Lnp-s, Pf, B ivalent, 30 Mcg, IM, 12 yrs and above ([employer]) 07/01/2023 H1N1 2009 Influenza, IM 04/22/2009 PPD [...] Industry Job Start Date Job End Date [employer] Not on file Not on file Not on file documented as of this encounter Miscellaneous Notes * Telephone Encounter - Domenica Sarkar MD - 05/21/2024 4:50 PM EDTSigned Prescriptions: Disp Refills Rosuvastatin Calcium 5 MG Oral Tablet (Cre*90 Tab*1 Sig: Take 1 Tablet by mouth in the morning. Authorizing Provider: DOMENICA SARKAR * Telephone Encounter - Danika Chen CMA - 05/21/2024 4:08 PM EDTPending Prescriptions: Disp Refills Rosuvastatin Calcium 5 MG Oral Tablet (Cre*90 Tab*1 Sig: Take 1 Tablet by mouth in the morning. * Telephone Encounter - Danika Chen CMA - 05/21/2024 4:07 PM EDT day request Did you pend patient's preferred pharmacy and medication before forwarding?yes Pharmacy: [id number] [address] [facility] Pending Prescriptions: Disp Refills Rosuvastatin Calcium 5 MG Oral Tablet (Cr*90 Tab*3 Sig: Take 1 Tablet by mouth in the morning. Last Visit: 05/09/2024 (in office), Visit date not found (telemedicine) Next Visit: 07/11/2024 If no future appointments scheduled, and last appointment is greater than a year ago, please schedule patient for a follow-up appointment Last date the medication was ordered: 11/08/23 Is this request for a controlled substance?No Urine Drug Screen:No results found. However, due to the size of the patient record, not all encounters were searched. Please check Results Review for a complete set of results. Patient Phone Numbers Labs: Lab Results Component Value Date/Time CREAT 0.9 05/17/2024 03:19 PM CREAT 0.97 02/13/2024 12:00 AM CREAT 1.0 01/02/2020 12:23 PM POTASSIUM 3.3 (L) 05/17/2024 03:19 PM POTASSIUM 3.7 02/13/2024 12:00 AM POTASSIUM 4.0 01/02/2020 12:23 PM TSH 1.22 03/14/2024 03:00 PM TSH 1.32 01/02/2020 12:23 PM LDL 62 12/20/2023 10:49 AM LDL 57 01/02/2020 12:23 PM LDL 43 11/21/2017 02:01 PM ALT 12 03/14/2024 03:00 PM ALT 20 01/02/2020 12:23 PM HGBA1C 5.6 10/09/2008 01:40 PM * Telephone Encounter - Yani Chun OSA - 05/21/2024 3:41 PM EDT PHARMACY [id number] DAY SUPPLY Pending Prescriptions: Disp Refills Rosuvastatin Calcium 5 MG Oral Tablet (Cr*30 Tab*5 Sig: Take 1 Tablet by mouth in the morning. 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 (HCC) Chronic respiratory failure with hypoxia (HCC) Supplemental oxygen dependent Nasal septal perforation Hypercalcemia Calculus of kidney BPH with obstruction/lower urinary tract symptoms Labs: Lab Results Component Value Date/Time CREATININE - [facility] 0.9 05/17/2024 03:19 PM CREATININE - [facility] 0.97 02/13/2024 12:00 AM CREATININE - [facility] 1.0 01/02/2020 12:23 PM CREATININE, 24 HOUR URINE 686 (L) 10/18/2023 11:05 AM CREATININE, RANDOM URINE - [facility] 62 09/09/2021 02:10 PM CREATININE, RANDOM URINE - [facility] 116 10/10/2012 10:41 AM Lab Results Component Value Date/Time POTASSIUM - [facility] 3.3 (L) 05/17/2024 03:19 PM POTASSIUM - [facility] 3.7 02/13/2024 12:00 AM POTASSIUM - [facility] 4.0 01/02/2020 12:23 PM POTASSIUM, 24 HOUR URINE 31 10/18/2023 11:05 AM Lab Results Component Value Date/Time TSH - [facility] 1.22 03/14/2024 03:00 PM TSH - [facility] 1.32 01/02/2020 12:23 PM Lab Results Component Value Date/Time LDL CHOLESTEROL (CALCULATED) - [facility] 43 11/21/2017 02:01 PM LDL CHOLESTEROL (CALCULATED) - [facility] 47 01/19/2017 08:04 AM LDL CHOLESTEROL (DIRECT MEASURE) - [facility] 62 12/20/2023 10:49 AM LDL CHOLESTEROL (DIRECT MEASURE) - [facility] 52 03/23/2023 01:05 PM LDL CHOLESTEROL (DIRECT MEASURE) - [facility] 57 01/02/2020 12:23 PM LDL CHOLESTEROL (DIRECT MEASURE) - [facility] 54 11/21/2018 02:46 PM LDL CHOLESTEROL (DIRECT MEASURE) - [facility] 39 04/27/2013 11:50 AM LDL CHOLESTEROL (DIRECT MEASURE) - [facility] 48 03/23/2012 02:49 PM Lab Results Component Value Date/Time ALT - [facility] 12 03/14/2024 03:00 PM ALT - [facility] 20 01/02/2020 12:23 PM Hemoglobin AIC Results: Lab Results Component Value Date/Time HEMOGLOBIN A1C - [facility] 5.6 10/09/2008 01:40 PM HEMOGLOBIN A1C - [facility] 4.9 01/16/2008 10:43 AM documented in this encounter Plan of Treatment Upcoming Encounters Date Type Department Care Team (Late st Contact Info) Description 05/28/2024 3:00 PM EDT Office Visit Cardiology, [place] [address] [place] [address] Krystal Wilson CRNP [address] [place] [address] 05/31/2024 10:40 AM EDT Office Visit Neurology [facility] [place] [address] [facility] [place] [address] Ana María Santos MD [address] [facility] [place] [address] 06/07/2024 2:00 PM EDT Office Visit DermatologyLilia [address] [place] [phone] Gypsy Mujica PA-C [address] [place] [address] [place] [address] 06/19/2024 10:30 AM EDT Office Visit Orthopaedics [facility] [address] [place] [phone] Ely Cabrales MD [address] [place] [phone] 07/11/2024 3:00 PM EDT Office Visit General Internal Medicine [facility] [address] [facility] [place] [address] Domenica Sarkar MD [address] [facility] [place] [address] 07/23/2024 10:30 AM EDT Office Visit Urology, [facility] [address] [place] [phone] [...] D LEVEL ONCE IN A LIFETIME-USE SMARTSET# [id number] Completed 03/14/2024, 10/20/2023, 08/17/2023, Additional history exists [...] this encounter Medical Devices Implanted Type Area Wire Weaver Device Identifier Shelf Expiration Date Model / Serial / Lot Lens Intraoc 23.0 - [id number] - [id number] Implanted:Qty: 1 on 12/21/2016 by Raj Bernard MD at OR [facility] Left: Eye [employer] 06/20/2021 [id number] / [id number] / Lens Intraoc 22.0 - [id number] - [id number] Implanted:Qty: 1 on 01/06/2017 by Raj Bernard MD at OR [facility] Right: Eye [employer] 08/20/2021 [id number] / [id number] / [id number] documented as of this encounter Visit Diagnoses [...] of Attor bj? No Care Teams General Passenger Agent Relationship Specialty Start Date End Date Domenica Sarkar MD [address] [place] [address], [place] [address] PCP - General Internal Medicine 10/06/20 documented as of this encounter
--- OUTSIDE RECORDS SUMMARY | 2024-05-28 02:47 | External Medical Summary | Summary of Care ---
Author Name Unknown Organization [facility] Address [address] [place] [address] Phone [phone] Care Team Providers Care Enhanced Environmental Operator Name Role Phone Jennifer Sarkar MD Primary Care Provider [phone] Reason for Referral * Evaluate & Treat - Unlimited Visits (Within 10 days (routine)) - Authorized Specialty Diagnoses / Procedures Referred By Derek knight Referred To Contact Physical Therapy / Physical Medicine And Rehab Diagnoses Dizziness Jennifer Sarkar MD [address] [place] [address] Phone: tel: fax: Referral ID Status Reason Start Date Expiration Date Visits Requested Visits Authorized [id number] Authorized Specialty Services Required 05/09/2024 [id number] Question Answer Referral Priority Within 10 days (routine) Where should this appointment be scheduled? External Comments Vestibular rehab * Evaluate & Treat - Unlimited Visits (Within 30 days (routine)) - Authorized Specialty Diagnoses / Procedures Referred By Derek knight Referred To Contact Neurology Diagnoses Ambulatory dysfunction Essential tremor Dizziness Other abnormalities of gait and mobility Rigidity (muscles) Jennifer Sarkar MD [address] [place] [address] Phone: tel: fax: Referral ID Status Reason Start Date Expiration Date Visits Requested Visits Authorized [id number] Authorized Specialty Services Required 05/09/2024 [id number] Question Answer Referral Priority Within 30 days (routine) Where should this appointment be scheduled? [facility] This patient already has care established with Neurology. Do not place this order. Please use Ask A Doc to expedite care. Acknowledge Is this referral being placed for insurance purposes ONLY No, patient needs appointment [facility] NEUROLOGY REFERRAL QUESTIONS Movement - r/o PD Reason for Visit * Reason Onset Date Comments Hospital Follow-Up Hospital Follow-Up 05/09/2024 Encounter Details Date Type Department Care Team (Latest Contact Info) Description 05/09/2024 4:00 PM EDT Office Visit General Internal Medicine State Quentin Hidalgo [address] [facility] [place] [id number] Jennifer Sarkar MD [address] [facility] [place] [id number] Hospital discharge follow-up*; Ambulatory dysfunction; Chronic respiratory failure with hypoxia (HCC); Restrictive lung disease; Severe obstructive sleep apnea; Supplemental oxygen dependent; Nasal septal perforation; Chronic right-sided heart failure (HCC); 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; HTN, GOAL BELOW 140/90; Essential tremor; Calculus of kidney; Current moderate episode of major depressive disorder without prior episode (HCC); Senile osteoporosis; Acquired hypothyroidism; Dyslipidemia, goal LDL below 70; Hypercalcemia; Dizziness; Other abnormalities of gait and mobility; Rigidity (muscles); Other constipation; Hyperuricemia Allergies Active Allergy Reactions Criticality Noted [...] Active Additional Information Patient taking differently:1,000 mg [id number] PRN, ,may take 3rd dose in between --12/21/2021, Reported on 05/09/2024 Saline Nasal Gel (Nasogel)Indication s:Chronic respiratory failure with hypoxia (HCC),Supplemental oxygen dependent,Nasal septal perforation,Nose dryness Administer into each nostril daily. For dryness(nasal septal perforation) 14 g 023 Active oxygen 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:Dress Designer jonathan respiratory failure with hypoxia (HCC),Chronic right-sided [...] Oral Tablet (Lasix)Indications: 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,Chronic right-sided heart failure [...] days as needed for constipation 025 Active Lidocaine 4 % External Patch (Aspercreme)Indicat ions:Ambulatory dysfunction,Spinal stenosis of lumbar region without neurogenic claudication,Chroni c pain of both shoulders,Primary generalized (osteo)arthritis,Ch ronic low back pain without sciatica, unspecified back pain laterality Place 1 Patch over 12 hours topically on the skin daily. 30 Patch 5 024 2024 Disconti nued([facility] List Clean Up) Spironolactone 25 MG Oral Tablet (Aldactone) Take [...] failure 04/08/2020 Coronary artery disease invo lving [place] coronary artery of [place] heart without angina pectoris 11/21/2018 Abnormality of [...] and draped in usual sterile manner. 14 Mal[place]ian flexible cystoscope inserted into urethra and guided [...] mRNA, LNP-s, No Pre serve, 2-Dose Series ([place]) 05/14/2020,04/18/2020 Covid-19, Mrna, Lnp-s, Pf, B ivalent, 30 Mcg, IM, 12 yrs and above ([place]) 07/01/2023 H1N1 2009 Influenza, IM 04/22/2009 PPD [...] Industry Job Start Date Job End Date Eric Snow Not on file Not on file Not on file documented as of this encounter Last Filed Vital Signs Vital Sign Reading Time Taken Comments Blood Pressure 118/62 05/09/2024 5:31 PM EDT Pulse 62 05/09/2024 5:31 PM EDT Temperature 36.9 °C (98.5 °F) 05/09/2024 4:08 PM ED T Respiratory Rate - - Oxygen Saturation 98% 05/09/2024 4:08 PM EDT Inhaled Oxygen Concentration - - Weight 73.8 kg (162 lb 9.6 oz) 05/09/2024 4:08 P M EDT Height - - Body Mass Index 27.06 01/11/2024 4:03 PM EST documented in this encounter Progress Notes * Jennifer Sarkar MD - 05/09/2024 4:31 PM EDT SUBJECTIVE: Fabian Starks is a 82 year old male. Chief Complaint Patient presents with Hospital Follow-Up Nursing Notes: Lacie Abreu LPN 05/09/24 1630 Signed The patient has been properly identified by confirmation of name and date of . Chief Complaint Patient presents with Hospital Follow-Up Hospital follow up chronic hypoxic respiratory failure Dr Gu Urology is recommending prostate surgery-is not scheduled yet. Your thoughts? Patient also asking about getting back on something to help with dizziness that he takes PRN. HPI: Patient presents today for hosp f/u appt Wt Readings from Last 6 Encounters: 05/09/24 162 lb 9.6 oz (73.8 kg) 03/16/24 167 lb 4 oz (75.9 kg) 01/11/24 168 lb 3.2 oz (76.3 kg) 11/08/23 164 lb 12 oz (74.7 kg) 10/25/23 165 lb 14.4 oz (75.3 kg) 10/20/23 164 lb (74.4 kg) BP Readings from Last 6 Encounters: 05/09/24 120/70 03/21/24 112/80 03/16/24 132/80 01/11/24 116/80 11/08/23 142/80 10/25/23 128/78 History of CAD H/o AMI SP BM Stent 09/2008, HTN, Dyslipidemia, Hypothyroidism, chronic peripheral edema, right heart failure, Severe EZEQUIEL Untreated (sev EZEQUIEL on PSG 2007 with hypoxia) and RLD with chronically elevated right hemidiaphragm,scoliosis; on nocturnal oxygen 4 lts and in day, nasal septal pe rforation, Essential tremors, Depression, h/o C2 fracture from a mechanical fall 08/11 managed conservatively; Cervical + Lumbar DDD Lumbar spinal stenosis, shoulder arthritis, Nephrolithiasis noted on CT 04/2017-saw Michael for other issue.BPH f/b urology H/o periodontal abscess and several teeth extraction done 07/05/2021. H/o Schatzki's ring, status post Eso dilation, erosions in 2018 history of dysphagia, EGD 09/11 was normal empirically dilated esophagus, small hiatal hernia Osteoporosis on reclast Essential tremors, last saw Neurology in October 2019 --had wish to f/u appointment 11/24/2021 which he missed-will refer back 07/14 Admitted 10/14/2022- 11/13/2022 with a final diagnosis of acute on chronic respiratory failure, pulmonary edema, COPD exacerbation, possible MRSA pneumonia versus aspiration pneumonia, probable C diff colitis. -sent to short-term rehab at [facility] and discharged from there on 11/26/2022 with home health through [facility]. Was treated with IV vancomycin and cefepime [...] and function. hosp f/u 12/21/22 -Admitted to [facility] 12/08- with diagnosis of ambulatory dysfunction, [...] started on Augmentin. Speech therapy consulted-video swallow dgfrr-sowc-mo-moderate oropharyngeal dysphagia with suspected esophageal dysfunction, aspiration reflux precautions recommended-minced and moist diet with smallportion, no straws --REC alternate solids and liquids fully alert and upright give meds in a carrier, oral hygiene, single bites, small sips, slow rate, no straws, head of the bed 30° all time ; upright with meals andadditional [...] needs ann-last in 2019, had order from [facility] 08/12 but not ann yet - seen yesterday for cough, got RF Tessalon, respiratory pathogen panel positive for rhino virus. -daughter accompanies him today again. He has not been using the Combivent, has a cough seems productive of sputum which he is unable to expectorate. No fever or chills. No leg edema. Denies diarrhea. [facility] nurse came in yesterday, to start PT, OT, they also have requested a speech therapy referral. Has not elevated the head end of the bed 30° recommended to as per speech pathology advise. [...] endocrinology eval of hypercalcemia 03/23/23--was admitted to [facility] 01/03/23 to 01/09/2023 and discharged to rehab [facility] 01/22/2023, seen in the ED 03/12/2023 Accompanied by his neighbor today. Daughter is in the process of finding permanent placement at assisted living facility Has nursing through [facility] health. Reviewed discharge instructions from care home, [...] ionized calcium, vitamin-D, PTH on 04/07 at [facility] -submit 24 hour urine for [...] admitted the hospital 07/03/2023 discharged 07/13/2023 to [facility], unsure when he was discharged from there [...] by PT and OT recommended discharge to care home facility. Chest x-ray showed small right pleural [...] done without bottle Cardiology appointment in April cx-had f/u 09/08/23-no chg done. 10/14 labs reviewed. Has not been [facility] pulm appt -admitted to the hospital 12/27/2023, discharged 12/31/2023 with a final diagnosis of ambulatory dysfunction chronic back pain. Accompanied by his neighbor States he was some getting out of his lift chair and slipped and had trouble getting up had worsening back pain. Workup- Lumbar CT-severe levoscoliosis the only partially covered curvature Linda angle 51°, ralbscik-xy-ahbkix degenerative changes, facet arthropathy, neuroforaminal narrowing more marked at the level of lower lumbar spine and no interval change. Cervical CT-no acute fracture, spondylotic changes C-spine unchanged from prior. Head CT-no acute findings. Chest x-ray-right parietal pericardiac patchy opacity obscuring right heart border with no change from prior study as well as in the right mid to lower lung zone small pulmonary nodule elevation of right diaphragm with mild obliteration suggesting mild right pleural effusion. --evaluated by PT/OT who recommended rehab placement but patient refused to go, was able to ambulate in the room and hallway with his walker and discharged home with home health through [facility], [facility] nurses coming about twice a week and is also having PT, OT coming in. He is using the walker more regularly now. -was given IV Lasix in the hospital. Did review discharge medications, Lasix is listed only as 20 mg daily though outpatient he is on 40mg in the morning 20 mg in the evening. -he had called for pain medications, lidocaine patch was sent but was not covered under insurance and a new prescription for the 4% patch was sent yesterday. He did have a shoulder injections by Dr. Cabrales 08/17/2023, 11/30/2023 and has appointment 03/21/2024. Discussed option of seeing pain management, he defers at this time. Neighbor to also check with his daughter regarding filling up forms for financial assistance for Prolia as per review of Rheumatology notes. Saw Pulmonology 11/08/23-notes rev -he is requesting refill on meclizine 12.5 mg which she uses as needed, last prescription given at rehab 10/18/2023, denies symptoms suggestive of vertigo, states it does help him when he has dizziness [facility] apt 08/11/23 --Consider Prolia 60mg subcutaneous injection every 6 months. Recommend taking vitamin-D 3 1000 units daily --OOP 321 dollars and was going to apply FA Had urology f/u - 08/03/23 , had CT 07/11/23 [facility] adm--ER notes and CT scan done July 11, 2023 are reviewed demonstrating a 15 mm left stone -BPH, stone ds--added finasteride , f/u 4 mths 12/20/23 with kuyobany menendez 10/20/23--ordered labs, 24 urine test,ur acid 7.1 10/26/23--Patient with active urine sediment which is new [...] 2-3 wks on drug along w/ cmp 01/14---saw Dr. uG 12/20/2023-medication was switched back to dutasteride tamsulosin 0.4 mg continued, PSA ordered Recent labs rev stable-sent tel enc to nephro reg allopurinol. 05/09/2024--admitted to the hospital 04/12/2024 discharged to rehab 04/26/2024 and sent home 05/07/2024. Final diagnosis physical deconditioning ambulatory dysfunction. States he was unable to get off the commode despite trying for 1 hour and called the ambulance Labs-normal CBC except WBC 44208, normal BMP except bicarb 39, normal LFT, TSH, UA, respiratory panel negative. Chest x-ray no acute findings. PT/OT evaluated him recommended rehab. Had mild confusion on 04/24/2024 thought to be due to oxycodone which was discontinued versus acute hypoxia as he was not wearing his oxygen at that time. --med changes-Lasix was increased from 40 mg once daily to twice daily-tho had been on this dose since 03/16/24 per cardiology -we started on allopurinol 03/14/2024 for hyperuricemia and stone disease as per . -continued-allopurinol 200 mg, Tylenol as needed clopidogrel 75 mg, Aldactone 12.5 mg MwF, rosuvastatin 5 mg daily, propranolol 20 mg three times daily Combivent four times daily, Singulair 10 mg daily,. Protonix 20 mg daily, levothyroxine 112 mcg daily citalopram 20 mg daily, duloxetine 60 mg daily Tamsulosin 0.5 mg daily, dutasteride 0.5 mg daily, VESIcare 5 mg daily Home health nurse through [facility], PT and OT, uses a walker, has been using compression socks regularly. Breakfast he may eat cereal or leftovers, lunch sandwich, neighbor brings him dinner Urology recommended uro lift procedure, has appointment with Pulmonology and Cardiology for preop Admits to constipation Continues to have feel dizziness, no symptoms suggestive of vertigo. Advised again meclizine is no longer recommended for BPV, obtain orthostatics if negative refer to physical therapy for vestibularrehab has been taking Colace twice daily, MiraLax 1 tsp every [address] had covid booster, RSV vaccine. TSH Results: Lab Results Component Value Date/Time TSH - [facility] 1.22 03/14/2024 03:00 PM TSH - [facility] 6.60 (H) 12/20/2023 10:49 AM TSH - [facility] 1.38 10/25/2023 12:04 PM TSH - [facility] 1.32 01/02/2020 12:23 PM TSH - [facility] 1.54 11/21/2018 02:46 PM TSH - [facility] 9.66 (H) 07/19/2018 09:48 AM Component Latest Ref Rng 12/01/2022 Uric Acid 3.4 - 7.0 mg/dL 6.4 25-Hydroxy Vitamin D >19 ng/mL 35 PTH 15 - 65 pg/mL 37 TSH Results: Lab Results Component Value Date/Time TSH - [facility] 1.22 03/14/2024 03:00 PM TSH - [facility] 6.60 (H) 12/20/2023 10:49 AM TSH - [facility] 1.38 10/25/2023 12:04 PM TSH - [facility] 1.32 01/02/2020 12:23 PM TSH - [facility] 1.54 11/21/2018 02:46 PM TSH - [facility] 9.66 (H) 07/19/2018 09:48 AM PSA Results: Lab Results Component Value Date/Time PSA - [facility] 6.94 (H) 12/20/2023 10:49 AM PSA - [facility] 8.51 (H) 08/17/2023 08:38 AM PSA - [facility] 0.83 07/27/2004 11:41 AM PSA - [facility] 1.01 12/19/2002 02:44 PM PSA - [facility] 0.97 11/02/2001 03:44 PM PSA SCREENING 1.34 10/13/2010 10:07 AM PSA SCREENING 1.39 08/28/2009 12:05 PM PSA SCREENING 1.14 01/15/2008 11:26 AM Component Latest Ref Rng 03/14/2024 04/18/2024 BUN 6 - 20 mg/dL 13 10 CREATININE 0.6 - 1.2 mg/dL 1.0 0.9 EGFR >=60 mL/min 78 85 SODIUM 135 - 146 mmol/L 143 145 POTASSIUM 3.5 - 5.1 mmol/L 3.5 4.5 CHLORIDE 98 - 107 mmol/L 96 (L) 100 CO2 22 - 32 mmol/L 37 (H) 36 (H) ANION GAP 7 - 15 mmol/L 10 9 GLUCOSE 70 - 120 mg/dL 108 134 (H) Albumin 3.8 - 5.0 g/dL 4.4 AST 10 - 50 U/L 22 Alkaline Phosphatase 35 - 130 U/L 115 Bilirubin, Total <=1.2 mg/dL 0.4 CALCIUM 8.4 - 10.2 mg/dL 10.4 (H) 10.3 (H) Protein 6.0 - 8.3 g/dL 7.1 ALT 10 - 50 U/L 12 25-Hydroxy Vitamin D >19 ng/mL 25 TSH 0.27 - 4.20 uIU/mL 1.22 Uric Acid 3.4 - 7.0 mg/dL 7.2 (H) Results for orders placed or performed in visit on 04/18/24 BASIC METABOLIC PANEL Result Value Ref Range BUN 10 6 - 20 mg/dL CREATININE 0.9 0.6 - 1.2 mg/dL EGFR 85 >=60 mL/min SODIUM 145 135 - 146 mmol/L POTASSIUM 4.5 3.5 - 5.1 mmol/L CHLORIDE 100 98 - 107 mmol/L CO2 36 (H) 22 - 32 mmol/L ANION GAP 9 7 - 15 mmol/L GLUCOSE 134 (H) 70 - 120 mg/dL CALCIUM 10.3 (H) 8.4 - 10.2 mg/dL *Note: Due to [...] with delayed healing 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 Abnormality of gait Chronic right-sided heart failure (HCC) Chronic rhinitis Schatzki's ring of distal esophagus Granulomatous lung disease (HCC) Chronic respiratory failure with hypoxia (HCC) Supplemental oxygen dependent Nasal septal perforation Hypercalcemia Calculus of kidney BPH with obstruction/lower urinary tract symptoms Current Outpatient Medications (Endocrine & Metabolic Agents) Medication Sig Dispense Refill Levothyroxine Sodium 112 MCG Oral Tablet (Levoxyl) Take 1 Tablet by mouth daily first thing in the morning. (at least 30 min prior to breakfast or other meds) 90 Tablet 1 Zoledronic Acid 5 MG/100ML Intravenous Solution Administer 5 mg intravenously once. Yearly administration Current Outpatient Medications (Cardiovascular Agents) Medication Sig Dispense Refill Furosemide 40 MG Oral Tablet (Lasix) Take 1 Tablet by mouth 2 times a day. 180 Tablet 3 Spironolactone 25 MG Oral Tablet (Aldactone) Take 0.5 Tablets by mouth once a day on Tuesday, Tuesday, and Tuesday only. 13 Tablet 5 Rosuvastatin Calcium 5 MG Oral Tablet (Crestor) TAKE 1 TABLET BY MOUTH EVERY DAY 30 Tablet 5 Propranolol HCl 20 MG Oral Tablet (Inderal) Take 1 Tablet by mouth in the morning and 1 Tablet at noon and 1 Tablet before bedtime. 270 Tablet 3 NITROGLYCERIN 0.4 MG SL SUBL 1every 5 min as needed with chest pain up to 3 doses in 15 minutes 25 Tab 11 Current Outpatient Medications (Antihistamines/Nasal Agents/Cough & Cold/Respiratory/Misc) Medication Sig Dispense Refill Albuterol Sulfate HFA 108 (90 Base) MCG/ACT Inhalation Aerosol Solution Inhale 2 Puffs by mouth every 6 hours as needed for Wheezing or Dyspnea. 18 g 11 Combivent Respimat 20-100 MCG/ACT Inhalation Aerosol Solution (Ipratropium- Albuterol) Inhale 1 Puffby mouth in the morning and 1 Puff at noon and 1 Puff in the evening and 1 Puff before bedtime. 12 g 2 Montelukast Sodium 10 MG Oral Tablet (Singulair) TAKE 1 TABLET BY MOUTH IN THE MORNING. ST 09/01/2022. 90 Tablet 3 Saline Nasal Gel (Nasogel) Administer into each nostril daily. For dryness(nasal septal perforation) 14 g 0 Current Outpatient Medications (Gastrointestinal Agents) Medication Sig Dispense Refill Pantoprazole Sodium 20 MG Oral Tablet Delayed Release (Protonix) Take 1 Tablet by mouth in the morning. 30 minutes before the first meal of the day. Do not crush, split or chew the tablet. 90 Tablet 3 Current Outpatient Medications (Genitourinary Antispasmodics/Vaginal Products/Misc) Medication Sig Dispense Refill Solifenacin Succinate 5 MG Oral Tablet (VESIcare) Take 1 Tablet by mouth in the morning. 30 Tablet 6 Tamsulosin HCl 0.4 MG Oral Capsule (Flomax) TAKE 1 CAPSULE BY MOUTH EVERYDAY AT BEDTIME 90 Capsule 1 Dutasteride 0.5 MG Oral Capsule (Avodart) Take 1 Capsule by mouth in the morning. 90 Capsule 3 Current Outpatient Medications (Central Nervous System Agents) Medication Sig Dispense Refill Citalopram Hydrobromide 20 MG Oral Tablet (CeleXA) TAKE 1 TABLET BY MOUTH EVERY DAY FOR DEPRESSION 90 Tablet 1 DULoxetine HCl 60 MG Oral Capsule Delayed Release Particles (Cymbalta) TAKE 1 CAPSULE BY MOUTH IN THE MORNING. DO NOT CUT, CRUSH OR CHEW--INC FROM 06/23/2023. 90 Capsule 3 Current Outpatient Medications (Analgesic/Anti-Inflammatory/Migraine/Gout Agents/Anesthetics) Medication Sig Dispense Refill Allopurinol 100 MG Oral Tablet (Zyloprim) Take 2 Tablets by mouth in the morning. 60 Tablet 5 Acetaminophen 500 MG Oral Tablet (Tylenol) Take by mouth 2 Tablets in the morning AND 2 Tablets before bedtime. ,may take 3rd dose in between --12/21/2021. (Patient taking differently: Take 2 Tabletsby mouth every 6 hours as needed. ,may take 3rd dose in between --12/21/2021) 1 Tablet 0 Current Outpatient Medications (Hematological Agents) Medication Sig Dispense Refill Clopidogrel Bisulfate 75 MG Oral Tablet (pLAVix) TAKE 1 TABLET DAILY 90 Tablet 1 Current Outpatient Medications (Other) Medication Sig Dispense Refill oxygen IN GAS Use 3lpm continuous, increased to 4lpm with exertion. Changed 03/23/23 1 Each 0 Review of patient's allergies indicates: Allergen Reactions Tramadol Other (Please comment) Hallucinations Food (See Comments) Other reaction(s): WAS TOLD NOT TO TAKE grapefruit Immunization History Administered Date(s) Administered COVID-19 mRNA, LNP-s, No Preserve, 2-Dose Series ([place]) 04/18/2020, 05/14/2020 Covid-19, Mrna, Lnp-s, Pf, Bivalent, 30 Mcg, IM, 12 yrs and above ([place]) 07/01/2023 H1N1 2009 Influenza, IM 04/22/2009 PPD 08/11/2020, 08/20/2020, 11/13/2022, 11/22/2022, 01/09/2023, 01/18/2023 Pneumococcal Conjugate Vacc, 13 Valent (Prevnar) 11/12/2014 Pneumococcal Polysaccharide PPV23 (Pneumovax) 02/25/2002, 07/20/2007 RSV Vac., Recomb, Adjuvant, PF,0.5 Ml (Arexvy) 07/03/2023 Season Influenza, Quad, PF, Adjuvanted, 65+ Yrs, IM (FLUAD) 11/29/2019 Seasonal Influenza Vac., MDV, IM, 0.5 mL (Fluzone) 01/17/2002, 12/19/2002, 02/26/2004, 12/14/2004, 12/15/2005, 01/03/2007, 12/14/2007, 12/18/2008, 12/23/2009, 11/10/2010, 01/21/2012, 10/31/2012, 11/26/2013, 11/12/2014 Seasonal Influenza Virus Vaccine, Unspecified Formulation 04/06/2022 Seasonal Influenza, High Dose, Trivalent, PF, IM (Fluzone HD) 10/25/2023 Seasonal Influenza, PF, 6 M & above, IM , (FluLaval or Fluzone) 11/29/2016, 11/21/2017, 04/06/2022 Seasonal Influenza, Quadrivalent Hd (Fluzone Hd) 12/09/2020, 04/06/2022, 11/22/2022 Seasonal Influenza, Quadrivalent, No Preserve, IM 04/22/2009, 12/25/2015 Seasonal Influenza, Trivalent, Adjuvanted, 65+ YRS, PF, (Fluad) 11/21/2018 TD, Preservative Free 12/14/2007 TDAP (age 10 and older)(Boostrix) 07/19/2018 Zoster Vaccine Recombinant (Shingrix) 09/17/2019, 01/28/2020 OBJECTIVE: BP 120/70 | Pulse 60 | Temp 98.5 °F (36.9 °C) (Tympanic) | Wt 162 lb 9.6 oz (73.8 kg) | SpO2 98% | PF (!) 3 L/min | BMI 27.06 kg/m² | BSA 1.84 m² PHYSICAL EXAM: General: alert, healthy, no distress, well nourished and well developed Eyes: conjunctiva non-injected, sclera white, gaze conjugate Ears: pinna normal shape and color ,clear canal,, TM nml Neck: supple, no adenopathy, no bruits, thyroid normal size, non-tender, without nodularity Heart: regular rate & rhythm, no gallops /murmurs. Lungs: lungs clear to auscultation, sl dec BS base left?sec scoliosis Neuro: alert, gait slow, motor no focal deficits, no nystagmus,Neg cerebellar signs.-vrhm-if-fiha, dysdiadochokinesis, Mild cog wheel rigidity arms Ext--+ tremors Back--mild left convex lumbar scoliosis , dec rom shoulders. Abdomen: Soft, non-tender,small umb hernia, normal bowel sounds, no masses or organomegaly, no bruits Extremities:1+pitting edema Rt >left; no clubbing, no cyanosis with O2. Skin--pearly lesion umb Rt cheek by nose and skin tag left sub ben area--derm appt 06/07/24 Has walker today , O2 tank ASSESSMENT/PLAN: Hospital discharge follow-up (Primary) - DISCH MED RECON CUR MED LIS - BASIC METABOLIC PANEL; Future; Expected date: 05/14/2024 Ambulatory dysfunction - DISCH MED RECON CUR MED LIS - BASIC METABOLIC PANEL; Future; Expected date: 05/14/2024 - 3 POSITIONAL BLOOD PRESSURE - ADULT NEUROLOGY REFERRAL OP Chronic respiratory failure with hypoxia (HCC) - BASIC METABOLIC PANEL; Future; Expected date: 05/14/2024 - 3 POSITIONAL BLOOD PRESSURE Restrictive lung disease - 3 POSITIONAL BLOOD PRESSURE Severe obstructive sleep apnea Supplemental oxygen dependent Nasal septal perforation Chronic right-sided heart failure (HCC) - BASIC METABOLIC PANEL; Future; Expected date: 05/14/2024 - 3 POSITIONAL BLOOD PRESSURE 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 - 3 POSITIONAL BLOOD PRESSURE HTN, GOAL BELOW 140/90 - BASIC METABOLIC PANEL; Future; Expected date: 05/14/2024 - 3 POSITIONAL BLOOD PRESSURE Essential tremor - ADULT NEUROLOGY REFERRAL OP Calculus of kidney Current moderate episode of major depressive disorder without prior episode (HCC) Senile osteoporosis Acquired hypothyroidism Dyslipidemia, goal LDL below 70 Hypercalcemia Dizziness - 3 POSITIONAL BLOOD PRESSURE - ADULT NEUROLOGY REFERRAL OP - PHYSICAL THERAPY REFERRAL OP Other abnormalities of gait and mobility - ADULT NEUROLOGY REFERRAL OP Rigidity (muscles) - ADULT NEUROLOGY REFERRAL OP Other constipation - Docusate Sodium 100 MG Oral Capsule (Colace); Take 1 Capsule by mouth in the morning and 1 Capsule before bedtime. - Polyethylene Glycol 3350 17 GM/SCOOP Oral Powder (MiraLax); Dissolve one heaping tablespoon in 8 ounces of water or juice every 3 days as needed for constipation Hyperuricemia Ct using walker, fall and aspiration precautions. , ct OT/PT at home Avoid narcotics.;Tylenol 500 mg 2 tab q8 hrs prn For pain., ct duloxetine 60mg Is off lidocaine patches -is using compression socks knee-high as daily -paving foreman recommended addition of allopurinol 03/14/2024, labs due next week. Lasix was decreased in the hospital to 40 mg once daily from twice daily that was increased by Cardiology in mid January, he does have edema, slight abdominal fullness, to increase Lasix back to 40 mg twice daily, labs on Tuesday before Pulmonology appointment, Keep Cardiology appointment June 07 for preoperative evaluation urolift procedure OS bp and pulse neg--refer to vest rehab Neighbor to assist with the getting him medications-Colace bid , MiraLax 1 capful in a glass of water every 3 days HIROC has f/u daughter regarding filling out forms for financial assistance for Rupert continue follow up with Ortho, he defers referral to pain management clinic. 40 min total time spent with patient, time spent reviewing subspecialty notes, diagnostic studies done, follow-up orders/medication refills,over 1/2 time spent in counseling, coordinating care. Follow Up: Return if symptoms worsen or fail to improve, for Return with Physician, Fasting Labs 2-5 Days Before Next Visit. | For: Return with Physician, Fasting Labs 2-5 Days Before Next Visit | Check-out note: BMP, uric acid Tuesday Appt As ann in June Ann neuro appt--saw Tez in past (This note was completed using the dictation [...] with plan of care. Jennifer Sarkar MD 05/09/2024 documented in this encounter Nursing Notes * Lacie Abreu LPN - 05/09/2024 3:59 PM EDT The patient has been properly identified by confirmation of name and date of . Chief Complaint Patient presents with Hospital Follow-Up Hospital follow up chronic hypoxic respiratory failure Dr Gu Urology is recommending prostate surgery-is not scheduled yet. Your thoughts? Patient also asking about getting back on something to help with dizziness that he takes PRN. documented in this encounter Plan of Treatment Upcoming Encounters Date Type Department Care Team (Late st Contact Info) Description 05/28/2024 3:00 PM EDT Office [facility] [place] [facility] [address] Krystal Wilson CRNP [address] [facility] [address] 05/31/2024 10:40 AM EDT Office Visit Neurology [facility] [address] [facility] [place] [address] Ana María Santos MD [address] [facility] [place] [address] 06/07/2024 2:00 PM EDT Office Visit [facility] [place] [facility] [address] [facility] [place] [phone] Gypsy Mujica PA-C [address] [place] [address] [place] [address] 06/19/2024 10:30 AM EDT Office Visit Orthopaedics [facility] [address] [place] [phone] Ely Cabrales MD [address] [place] [phone] 07/11/2024 3:00 PM EDT Office Visit General Internal Medicine [facility] [address] [place] [address] Jennifer Sarkar MD [address] [place] [address] [address] Scheduled Orders Name Type Priority Associated Diagnoses Orde r Schedule 3 POSITIONAL BLOOD PRESSURE Procedures Routine Ambulatory dysfunction Chronic respiratory failure with hypoxia (HCC) Restrictive lung disease Chronic right-sided heart failure (HCC) 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 HTN, GOAL BELOW 140/90 Dizziness Ordered: 05/09/2024 Scheduled Procedures Name Priority Associated Diagnoses Date/Ti me CYSTOURETHROSCOPY, WITH INSE RTION OF PERMANENT ADJUSTABLE TRANSPROSTATI IMPLANT; SINGLE IMPLANT Calculus of kidney BPH with obstruction/lower urinary tract symptoms COLONOSCOPY FLEXIBLE PROXIMA L DIAGNOSTIC Recall History of colon polyps Scheduled Referrals Name Type Priority Associated Diagnoses Orde r Schedule ADULT NEUROLOGY REFERRAL OP Referral Within 30 days (routine) Ambulatory dysfunction Essential tremor Dizziness Other abnormalities of gait and mobility Rigidity (muscles) Ordered: 05/09/2024 PHYSICAL THERAPY REFERRAL OP Referral Within 10 days (routine) Dizziness Ordered: 05/09/2024 Health Maintenance Due Date Last Done Comments [...] D LEVEL ONCE IN A LIFETIME-USE SMARTSET# [id number] Completed 03/14/2024, 10/20/2023, 08/17/2023, Additional history exists [...] this encounter Medical Devices Implanted Type Area Autocad Technician Device Identifier Shelf Expiration Date Model / Serial / Lot Lens Intraoc 23.0 - [id number] - [id number] Implanted:Qty: 1 on 12/21/2016 by Raj Bernard MD at OR [facility] Left: Eye [employer] 06/20/2021 [id number] / [id number] / Lens Intraoc 22.0 - [id number] - [id number] Implanted:Qty: 1 on 01/06/2017 by Raj Bernard MD at OR [facility] Right: Eye [employer]OMB 08/20/2021 [id number] / [id number] / [id number] documented as of this encounter Results * (ABNORMAL) BASIC METABOLIC PANEL (05/17/2024 3:19 PM EDT) [facility] BUN 10 6 - 20 mg/dL 05/18/2024 2:05 AM EDT [facility] CREATININE 0.9 0.6 - 1.2 mg/dL 05/18/2024 2:05 AM EDT LABORATORY GM EGFR 81 >=60 mL/min 05/18/2024 2:05 AM EDT [facility] Comment:eGFR is calculated b ased on the CKD-EPI 2020 equation. SODIUM 140 135 - 146 mmol/L 05/18/2024 2:05 AM EDT [facility] POTASSIUM 3.3(L) 3.5 - 5.1 mmol/L 05/18/2024 2:05 AM EDT [facility] CHLORIDE 92(L) 98 - 107 mmol/L 05/18/2024 2:05 AM EDT [facility] CO2 34(H) 22 - 32 mmol/L 05/18/2024 2:05 AM EDT [facility] ANION GAP 14 7 - 15 mmol/L 05/18/2024 2:05 AM EDT [facility] GLUCOSE 100 70 - 120 mg/dL 05/18/2024 2:05 AM EDT [facility] CALCIUM 9.7 8.4 - 10.2 mg/dL 05/18/2024 2:05 AM EDT [facility] Blood Venous blood specimen / Unknown Venipuncture / Unknown 05/17/2024 3:19 PM EDT 05/17/2024 3:21 PM EDT us Jennifer Sarkar MD LAB BLOOD ORDERABLES Final Resul t [facility] [address] [place] [address] documented in this encounter Visit Diagnoses Diagnosis Hospital discharge follow-up- Primary Other follow-up examination Ambulatory dysfunction Chronic respiratory failure with hypoxia (HCC) Chronic respiratory failure Restrictive lung disease Other diseases of lung, not elsewhere classified Severe obstructive sleep apnea Obstructive sleep apnea (adult) (pediatric) Supplemental oxygen dependent Dependence on supplemental oxygen Nasal septal perforation Other diseases of nasal cavity and sinuses Chronic right-sided heart failure (HCC) Congestive heart failure, unspecified 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 HTN, GOAL BELOW 140/90 Unspecified essential hypertension Essential tremor Essential and other specified forms of tremor Calculus of kidney Current moderate episode of major depressive disorder without prior episode (HCC) Senile osteoporosis Acquired hypothyroidism Unspecified hypothyroidism Dyslipidemia, goal LDL below 70 Other and unspecified hyperlipidemia Hypercalcemia Dizziness Dizziness and giddiness Other abnormalities of gait and mobility Rigidity (muscles) Other general symptoms Other constipation Hyperuricemia Other abnormal blood chemistry documented in [...] Power of Attor bj? No Care Teams Enhanced Environmental Operator Relationship Specialty Start Date End Date Jennifer Sarkar MD [address] [place] [address] PCP - General Internal Medicine 10/06/20 documented as of this encounter"
--- OUTSIDE RECORDS SUMMARY | 2024-05-28 02:48 | External Medical Summary | Summary of Care ---
Author Name Unknown Organization [facility] Address [address] [facility] [place] [id number] Phone [phone] Care Team Providers Care Environmental Services Worker Name Role Phone Domenica Sarkar MD Primary Care Provider [phone] Reason for Referral * Evaluate & Treat - Unlimited Visits (Within 10 days (routine)) - Authorized Specialty Diagnoses / Procedures Referred By Contac t Referred To Contact Physical Therapy / Physical Medicine And Rehab Diagnoses Dizziness Benign paroxysmal positional vertigo, unspecified laterality Domenica Sarkar MD [facility] [place] [id number] Phone: tel: fax: Referral ID Status Reason Start Date Expiration Date Visits Requested Visits Authorized [id number] Authorized Specialty Services Required 04/20/[phone] Question Answer Referral Priority Within 10 days (routine) Where should this appointment be scheduled? External Comments Vestibular rehab Reason for Visit * Reason Comments eRx-Medication Refill Encounter Details Date Type Department Care Team (Late st Contact Info) Description 04/18/2024 Refill General Internal Medicine [place] [address] [place] [address] Domenica Sarkar MD [address] [place] [address] Dizziness; Benign paroxysmal positional vertigo, unspecified laterality Allergies Active Allergy Reactions Criticality Noted Date Comments Food (See Comments) 03/21/2018 Other reaction(s): WAS TOLD NOT TO TAKE grapefruit Tramadol Other (Please comment) High 10/06/2020 Hallucinations documented as of this encounter (statuses as of 04/27/2024) Medications NITROGLYCERIN 0.4 MG SL SUBLIndications:Ol d [...] Active Additional Information Patient taking differently:1,000 mg [id number] PRN, ,may take 3rd dose in between [...] skin daily. 30 Patch 5 024 Active Clopidogrel Bisulfate 75 MG Oral [...] Oral Tablet (Lasix)Indications :Coronary artery disease involving nikolai coronary artery of nikolai heart without angina pectoris,Chronic right-sided heart failure (HCC),Bilateral leg edema,Encounter for monitoring diuretic therapy Take 1 Tablet by mouth 2 times a day. 180 Tablet 3 025 Active Solifenacin Succinate 5 MG Oral Tablet (VESIcare) Take 1 Tablet by mouth in the morning. 30 Tablet 6 025 Active Citalopram Hydrobromide 20 MG Oral Tablet (CeleXA) TAKE 1 TABLET BY MOUTH EVERY DAY FOR DEPRESSION 90 Tablet 1 024 04/24 Discontinued Meclizine HCl 12.5 MG Oral Tablet (Antivert)Indicati ons:Dizziness,Marco A gn paroxysmal positional vertigo, unspecified laterality Take 1 Tablet by mouth daily as needed for Dizziness. 30 Tablet 024 04/20 Discontinued( End of Procedure) documented as of this encounter (statuses as of 04/27/2024) Active Problems Problem Noted Date Diagnosed Date Calculus of kidney 04/18/2024 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 Hypercalcemia 12/03/2022 Supplemental oxygen dependent 05/06/2022 Nasal septal perforation 05/06/2022 Chronic respiratory failure with hypoxia 022 Granulomatous lung disease 09/18/2021 Chronic rhinitis 06/10/2021 Schatzki's ring of distal esophagus 06/10/2021 Chronic right-sided heart failure 04/08/2020 Coronary artery disease invo lving nikolai coronary artery of nikolai heart without angina pectoris 11/21/2018 Abnormality of [...] as of this encounter (statuses as of 04/27/2024) Resolved Problems Problem Noted Date Diagnosed Date [...] as of this encounter (statuses as of 04/27/2024) Immunizations Name Administration Dates Next Due COVID-19 mRNA, LNP-s, No Pre serve, 2-Dose Series ([email or web address]) 05/14/2020,04/18/2020 Covid-19, Mrna, Lnp-s, Pf, B ivalent, 30 Mcg, IM, 12 yrs and above ([email or web address]) 07/01/2023 H1N1 2009 Influenza, IM 04/22/2009 PPD [...] Industry Job Start Date Job End Date [employer] Not on file Not on file Not on file documented as of this encounter Miscellaneous Notes * Telephone Encounter - Altagracia Shelton LPN - 04/27/2024 3:43 PM EST Patient aware of below. He says that he can't afford to see all sorts of doctors when he can take the pill that helps when he gets dizzy. I again explained that per pharmacy note, this medication is not indicated for rrt use so Dr Sarkar is recommending he vestibular rehab. Patient again declined. * Telephone Encounter - Domenica Sarkar MD - 04/20/2024 10:31 AM ESTRefused Prescriptions: Disp Refills Meclizine HCl 12.5 MG Oral Tablet (Antiver*30 Tab*0 Sig: TAKE 1 TABLET BY MOUTH DAILY NEEDED FOR DIZZINESS Refused By: YUMIKO RAMOS Reason for Refusal: Dose needs clarification Meclizine HCl 12.5 MG Oral Tablet (Antiver*30 Tab*0 Sig: Take 1 Tablet by mouth daily as needed for Dizziness. Refused By: DOMENICA SARKAR Reason for Refusal: Other (comment below) * Telephone Encounter - Domenica Sarkar MD - 04/20/2024 10:29 AM EST Per March 30 message was routed to nurse ebro to let patient know to discontinue meclizine and if any dizziness persists then will refer him to vestibular rehab. --referral done--to schedule. * Telephone Encounter - Yumiko Ramos [facility] - 04/20/2024 10:10 AM ESTPending Prescriptions: Disp Refills Meclizine HCl 12.5 MG Oral Tablet (Antiver*30 Tab*0 Sig: Take 1 Tablet by mouth daily as needed for Dizziness. Refused Prescriptions: Disp Refills Meclizine HCl 12.5 MG Oral Tablet (Antiver*30 Tab*0 Sig: TAKE 1 TABLET BY MOUTH DAILY NEEDED FOR DIZZINESS Refused By: YUMIKO RAMOS Reason for Refusal: Dose needs clarification * Telephone Encounter - Yumiko Ramos [facility] - 04/20/2024 10:10 AM EST Unable to authorize medication refills for pended medication(s) at this time. Part of the protocol criteria used for refill authorization was not satisfied: Designations for the "Planned Duration" and "Indication" questions have not been selected. Meclizine is typically intended for acute use as a PRN medication and not for long-term routine use. Please consider referral to one of the following: Otolaryngology if there are associated aural complaints (hearing loss, tinnitus) associated with the dizziness or if the dizziness evolves spontaneously. Neurology if the dizziness is associated with migraine headache, diplopia, limb incoordination, weakness, dysarthria, dysphagia or inability to ambulate/highly frequent falls. Vestibular physical therapist if the dizziness is primarily related to position changes or head movement (BPPV). Thanks, Yumiko Scavone, PharmD Clinical Pharmacist [facility] ([facility]) [phone] 04/20/2024 10:10 AM * Telephone Encounter - Yumiko Ramos RPh - 04/20/2024 10:08 AM EST Pending Prescriptions: Disp Refills Meclizine HCl 12.5 MG Oral Tablet (Antive*30 Tab*0 Sig: Take 1 Tablet by mouth daily as needed for Dizziness. Last Visit: 01/11/2024 (in office), Visit date not found (telemedicine) Next Visit: 07/11/2024 If no future appointments scheduled, and last appointment is greater than a year ago, please schedule patient for a follow-up appointment Last date the medication was ordered: 01/11/24 Pharmacy: [id number] [address] [facility] Is this request for a controlled substance? No Urine Drug Screen:No results found. However, due to the size of the patient record, not all encounters were searched. Please check Results Review for a complete set of results. Patient Phone Numbers Labs: Lab Results Component Value Date/Time CREAT 0.9 04/18/2024 04:59 PM CREAT 0.97 02/13/2024 12:00 AM CREAT 1.0 01/02/2020 12:23 PM POTASSIUM 4.5 04/18/2024 04:59 PM POTASSIUM 3.7 02/13/2024 12:00 AM POTASSIUM [...] 12:00 PM EDT Office Visit Pulmonary Medicine, [facility] [address] [place] [address] Bashir Harding MD [address] [facility] [place] [address] 05/28/2024 3:00 PM EDT Office Visit [facility] [place] [facility] [phone] Krystal Wilson CRNP [address] [facility] [place], [place] [phone] 06/07/2024 2:00 PM EDT [facility] [address] [facility] [place] [phone] Gypsy Mujica PA-C [address] [place] [address] [place] [address] 06/19/2024 10:30 AM EDT Office Visit Orthopaedics [facility] [address] [place] [phone] Ely Cabrales MD [address] [place] [phone] 07/11/2024 3:00 PM EDT Office Visit General Internal Medicine [facility] [place] [address] [place] [address] Domenica Sarkar MD [address] [facility] [place] [address] Scheduled Procedures Name Priority Associated Diagnoses Date/Ti me CYSTOURETHROSCOPY, WITH INSE RTION OF PERMANENT ADJUSTABLE TRANSPROSTATI IMPLANT; SINGLE IMPLANT Calculus of kidney BPH with obstruction/lower urinary tract symptoms COLONOSCOPY FLEXIBLE PROXIMA L DIAGNOSTIC Recall History of colon polyps Scheduled Referrals Name Type Priority Associated Diagnoses Orde r Schedule PHYSICAL THERAPY REFERRAL OP Referral Within 10 days (routine) Dizziness Benign paroxysmal positional vertigo, unspecified laterality Ordered: 04/20/2024 Health Maintenance Due Date Last Done Comments [...] D LEVEL ONCE IN A LIFETIME-USE SMARTSET# [id number] Completed 03/14/2024, 10/20/2023, 08/17/2023, Additional history exists [...] encounter Medical Devices Implanted Type Area Medical Insurance Claims Specialist Device Identifier Shelf Expiration Date Model / Serial / Lot Lens Intraoc 23.0 - [id number] - [id number] Implanted:Qty: 1 on 12/21/2016 by Raj Bernard MD at OR [facility] Left: Eye [employer] 06/20/2021 [id number] / [id number] / Lens Intraoc 22.0 - [id number] - [id number] Implanted:Qty: 1 on 01/06/2017 by Raj Bernard MD at OR [facility] Right: Eye [employer]CH [employer]OMB 08/20/2021 [id number] / [id number] / [id number] documented as of this encounter Visit Diagnoses Diagnosis Dizziness Dizziness and giddiness Benign paroxysmal positional vertigo, unspecified laterality documented in this encounter Advance Directives * [...] Power of Attor bj? No Care Teams Environmental Services Worker Relationship Specialty Start Date End Date Domenica Sarkar MD [address] [place] [address] [place] [id number] PCP - General Internal Medicine 10/06/20 documented as of this encounter
--- OUTSIDE RECORDS SUMMARY | 2024-05-28 02:48 | External Medical Summary | Summary of Care ---
Author Name Unknown Organization [facility] Address [address] [facility] [place] [address] Phone [phone] Care Team Providers Care Rotary Driller Prospecting Name Role Phone Jennifer Sarkar MD Primary Care Provider [phone] Reason for Visit * Reason Onset Date Comments Appointment 05/04/2024 Encounter Details Date Type Department Care Team (Late st Contact Info) Description 05/04/2024 Telephone General Internal Medicine [facility] [address] [facility] [place] [address] Jennifer Sarkar MD 200 [place] [address] Appointment Allergies Active Allergy Reactions Criticality Noted Date Comments Food (See Comments) 03/21/2018 Other reaction(s): WAS TOLD NOT TO TAKE grapefruit Tramadol Other (Please comment) High 10/06/2020 Hallucinations documented as of this encounter (statuses as of 05/04/2024) Medications NITROGLYCERIN 0.4 MG SL SUBLIndications:Old myocardial [...] Active Additional Information Patient taking differently:1,000 mg [id number] PRN, ,may take 3rd dose in between --12/21/2021, Reported on 03/16/2024 Saline Nasal Gel (Nasogel)Indication s:Chronic respiratory failure with hypoxia (HCC),Supplemental oxygen dependent,Nasal septal perforation,Nose dryness Administer into each nostril daily. For dryness(nasal septal perforation) 14 g 05/07/19 23 Active oxygen 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:Tower Hand jonathan respiratory failure with hypoxia (HCC),Chronic right-sided [...] tablet. 90 Tablet 3 09/27/19 24 Active Montelukast Sodium 10 MG [...] daily. 30 Patch 5 01/10/20 24 Active Clopidogrel Bisulfate 75 MG Oral Tablet (pLAVix)Indications :S/P primary angioplasty with coronary stent TAKE 1 TABLET DAILY 90 Tablet 02/22/19 25 Active Allopurinol 100 MG Oral Tablet (Zyloprim) Take 2 Tablets by mouth in the morning. 60 Tablet 03/16/19 25 Active Spironolactone 25 MG Oral Tablet (Aldactone) Take 0.5 Tablets by mouth once a day on Tuesday, Tuesday, and Tuesday only. 13 Tablet 03/16/19 25 Active Levothyroxine Sodium 112 MCG Oral Tablet (Levoxyl)Indication s:Acquired hypothyroidism Take 1 Tablet by mouth daily first thing in the morning. (at least 30 min prior to breakfast or other meds) 90 Tablet 03/22/19 25 Active Tamsulosin HCl 0.4 MG Oral Capsule (Flomax)Indications :BPH with obstruction/lower urinary tract symptoms TAKE 1 CAPSULE BY MOUTH EVERYDAY AT BEDTIME 90 Capsule 04/12/19 25 Active Furosemide 40 MG Oral Tablet (Lasix)Indications: Coronary artery disease involving [place] coronary artery of [place] heart without angina pectoris,Chronic right-sided heart failure (HCC),Bilateral leg edema,Encounter for monitoring diuretic therapy Take 1 Tablet by mouth 2 times a day. 180 Tablet 3 04/11/19 25 Active Solifenacin Succinate 5 MG Oral Tablet (VESIcare) Take 1 Tablet by mouth in the morning. 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 Hypercalcemia 12/03/2022 Supplemental oxygen dependent 05/06/2022 Nasal septal perforation 05/06/2022 Chronic respiratory failure with hypoxia 022 Granulomatous lung disease 09/18/2021 Chronic rhinitis 06/10/2021 Schatzki's ring of distal esophagus 06/10/2021 Chronic right-sided heart failure 04/08/2020 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 artery of [place] heart without angina pectoris 11/21/2018 Abnormality of [...] as of this encounter (statuses as of 05/04/2024) Resolved Problems Problem Noted Date Diagnosed Date [...] as of this encounter (statuses as of 05/04/2024) Immunizations Name Administration Dates Next Due COVID-19 mRNA, LNP-s, No Pre serve, 2-Dose Series ([employer]) 05/14/2020,04/18/2020 Covid-19, Mrna, Lnp-s, Pf, B ivalent, [...] Industry Job Start Date Job End Date [employer] Not on file Not on file Not on file documented as of this encounter Miscellaneous Notes * Telephone Encounter - Ainsley Castro LPN - 05/04/2024 1:05 PM EDT [facility] Scheduled for hospital f/u on 05/09 with Jennifer Sarkar MD at 4:00 PM * Telephone Encounter - Bebo Costa OSA - 05/04/2024 1:00 PM EDT Reason for patient's call: Kaycee from [facility] calling; patient discharging PH [phone] Caller was transferred to [place] at the nurse line. documented in this encounter Plan of Treatment Upcoming Encounters Date Type Department Care Team (Late st Contact Info) Description 05/09/2024 4:00 PM EDT Office Visit General Internal Medicine [facility] [address] [facility] [place] [address] Jennifer Sarkar MD [address] [facility] [place] [address] 05/14/2024 12:00 PM EDT Office Visit Pulmonary Medicine, [facility] [address] [place] [address] Bashir Harding MD [address] [place] [address] 05/28/2024 3:00 PM EDT Office [facility] [place] [facility] [phone] Krystal Wilson CRNP [address] [place], [place] [phone] 06/07/2024 2:00 PM EDT Office Visit [facility], [place] [facility] [address] [facility] [place] [phone] Gypsy Mujica PA-C [address] [place] [address] [place] [address] 06/19/2024 10:30 AM EDT Office Visit Orthopaedics [facility] [address] [place] [phone] Ely Cabrales MD [address] [place] [phone] 07/11/2024 3:00 PM EDT Office Visit General Internal Medicine [place] [address] [facility] [place], [place] [address] Jennifer Sarkar MD [address] [facility] [place] [address] Scheduled Procedures Name Priority Associated Diagnoses Date/Ti [...] D LEVEL ONCE IN A LIFETIME-USE SMARTSET# [id number] Completed 03/14/2024, 10/20/2023, 08/17/2023, Additional history exists [...] this encounter Medical Devices Implanted Type Area Broaching Machine Operator Device Identifier Shelf Expiration Date Model / Serial / Lot Lens Intraoc 23.0 - [id number] - [id number] Implanted:Qty: 1 on 12/21/2016 by Raj Bernard MD at OR [facility] Left: Eye BAUSCH & LOMB 06/20/2021 [id number] / [id number] / Lens Intraoc 22.0 - [id number] - [id number] Implanted:Qty: 1 on 01/06/2017 by Raj Bernard MD at OR [facility] Right: Eye BAUSCH [employer] LOMB 08/20/2021 [id number] / [id number] / [id number] documented as of this encounter Advance Directives [...] Power of Attor bj? No Care Teams Rotary Driller Prospecting Relationship Specialty Start Date End Date Jennifer Sarkar MD 200 [place] [address] PCP - General Internal Medicine 10/06/20 documented as of this encounter
--- OUTSIDE RECORDS SUMMARY | 2024-05-28 02:48 | External Medical Summary | Summary of Care ---
Author Name Unknown Organization [facility] Address [address] [facility] [place] [address] Phone [phone] Care Team Providers Care Rn Pain Management Name Role Phone Jennifer Sarkar MD Primary Care Provider [phone] Reason for Visit * Reason Onset Date Comments Home Health 05/08/2024 Encounter Details Date Type Department Care Team (Late st Contact Info) Description 05/08/2024 Telephone General Internal Medicine [facility] 200 [place] [address] Jennifer Sarkar MD 200 [place] [address] Home Health Allergies Active Allergy Reactions Criticality Noted Date Comments Food (See Comments) 03/21/2018 Other reaction(s): WAS TOLD NOT TO TAKE grapefruit Tramadol Other (Please comment) High 10/06/2020 Hallucinations documented as of this encounter (statuses as of 05/08/2024) Medications NITROGLYCERIN 0.4 MG SL SUBLIndications:Old myocardial [...] Active Additional Information Patient taking differently:1,000 mg [id number] PRN, ,may take 3rd dose in between --12/21/2021, Reported on 03/16/2024 Saline Nasal Gel (Nasogel)Indication s:Chronic respiratory failure with hypoxia (HCC),Supplemental oxygen dependent,Nasal septal perforation,Nose dryness Administer into each nostril daily. 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 Hypercalcemia 12/03/2022 Supplemental oxygen dependent 05/06/2022 Nasal septal perforation 05/06/2022 Chronic respiratory failure with hypoxia 022 Granulomatous lung disease 09/18/2021 Chronic rhinitis 06/10/2021 Schatzki's ring of distal esophagus 06/10/2021 Chronic right-sided heart failure 04/08/2020 Coronary artery disease invo lving [place] coronary artery of [place] heart without angina pectoris 11/21/2018 Abnormality of [...] as of this encounter (statuses as of 05/08/2024) Resolved Problems Problem Noted Date Diagnosed Date [...] as of this encounter (statuses as of 05/08/2024) Immunizations Name Administration Dates Next Due COVID-19 mRNA, LNP-s, No Pre serve, 2-Dose Series ([employer]) 05/14/2020,04/18/2020 Covid-19, Mrna, Lnp-s, Pf, B ivalent, [...] Industry Job Start Date Job End Date [employer] Not on file Not on file Not on file documented as of this encounter Miscellaneous Notes * Telephone Encounter - Karissa yRan LPN - 05/08/2024 1:33 PM EDT Admission/Start of Care Admission/Start of Care: Tonia LANGLEY, Calling from: [facility] Referral ordered by: [facility] 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 Last Office Visit: 01/11/2024 Has patient been scheduled or seen in the office for a follow up visit: Yes- on05/09/2024 Advised that orders will be signed by Jennifer Sarkar MD and to fax to the office for signature. [facility] HH * Telephone Encounter - Jayde Lea OSA - 05/08/2024 1:31 PM EDT Tonia from [facility] care is calling to speak to a nurse on pt they state [facility] documented in this encounter Plan of Treatment Upcoming Encounters Date Type Department Care Team (Late st Contact Info) Description 05/09/2024 4:00 PM EDT Office Visit General Internal Medicine [facility] 200 [facility] [place] [address] Jennifer Sarkar MD 200 [place] [address] 05/14/2024 12:00 PM EDT Office Visit Pulmonary Medicine, [facility] [address] [facility] [place] [address] Bashir Harding MD [address] [facility] [place] [address] 05/28/2024 3:00 PM EDT Office Visit Cardiology, [place] [address] [place] [address] Krystla Wilson CRNP [address] [place] [address] 06/07/2024 2:00 PM EDT Office Visit Dermatology, [address] [place] [phone] Gypsy Mujica PA-C [address] [place] [address] [place] [address] 06/19/2024 10:30 AM EDT Office Visit Orthopaedics [facility] [address] [place] [phone] Ely Cabrales MD [address] [place] [phone] 07/11/2024 3:00 PM EDT Office Visit General Internal Medicine [facility] 200 [facility] [place] [address] Jennifer Sarkar MD 200 [facility] [place] [address] Scheduled Procedures Name Priority Associated Diagnoses Date/Ti [...] D LEVEL ONCE IN A LIFETIME-USE SMARTSET# [id number] Completed 03/14/2024, 10/20/2023, 08/17/2023, Additional history exists [...] encounter Medical Devices Implanted Type Area Director Of Casework Services Device Identifier Shelf Expiration Date Model / Serial / Lot Lens Intraoc 23.0 - [id number] - [id number] Implanted:Qty: 1 on 12/21/2016 by Raj Bernard MD at OR [facility] Left: Eye BAUSCH & LOMB 06/20/2021 [id number] / [id number] / Lens Intraoc 22.0 - [id number] - [id number] Implanted:Qty: 1 on 01/06/2017 by Raj Bernard MD at OR [facility] Right: Eye BAUSCH & LOMB 08/20/2021 [id number] / [id number] / [id number] documented as of this encounter Advance Directives [...] Power of Attor bj? No Care Teams Rn Pain Management Relationship Specialty Start Date End Date Jennifer Sarkar MD 200 [place] [address] PCP - General Internal Medicine 10/06/20 documented as of this encounter
--- OUTSIDE RECORDS SUMMARY | 2024-05-28 02:48 | External Medical Summary | Summary of Care ---
Author Name Unknown Organization [facility] Address [address] [facility] [place] [address] Phone [phone] Care Team Providers Care Artist Consultant Name Role Phone Jennifer Sarkar MD Primary Care Provider [phone] Reason for Visit * Reason Onset Date Comments Appointment 04/18/2024 Schedule surgery , cardio clearance, preop teaching, 3 week postop Encounter Details Date Type Department Care Team (Late st Contact Info) Description 04/18/2024 Telephone Urology, [facility] 132 [facility] [place] [address] Man Gu MD [address] [place] [address] Appointment (Schedule surgery, cardio clarisse... Allergies Active Allergy Reactions Criticality Noted Date Comments Food (See Comments) 03/21/2018 Other reaction(s): WAS TOLD NOT TO TAKE grapefruit Tramadol Other (Please comment) High 10/06/2020 Hallucinations documented as of this encounter (statuses as of 05/01/2024) Medications NITROGLYCERIN 0.4 MG SL SUBLIndications:Ol d [...] Active Additional Information Patient taking differently:1,000 mg [id number] PRN, ,may take 3rd dose in between [...] stent TAKE 1 TABLET DAILY 90 Tablet 025 Active Allopurinol 100 MG Oral Tablet (Zyloprim) Take 2 Tablets by mouth in the morning. 60 Tablet 025 Active Spironolactone 25 MG Oral Tablet (Aldactone) Take 0.5 Tablets by mouth once a day on Tuesday, Tuesday, and Tuesday only. 13 Tablet 025 Active Levothyroxine Sodium 112 MCG Oral Tablet (Levoxyl)Indicatio ns:Acquired hypothyroidism Take 1 Tablet by mouth daily first thing in the morning. (at least 30 min prior to breakfast or other meds) 90 Tablet 025 Active Tamsulosin HCl 0.4 MG Oral Capsule (Flomax)Indication s:BPH with obstruction/lower urinary tract symptoms TAKE 1 CAPSULE BY MOUTH EVERYDAY AT BEDTIME 90 Capsule 025 Active Furosemide 40 MG Oral Tablet (Lasix)Indications :Coronary artery disease involving [place] coronary artery of [place] heart without angina pectoris,Chronic right-sided heart failure [...] as of this encounter (statuses as of 05/01/2024) Active Problems Problem Noted Date Diagnosed Date Calculus of kidney 04/18/2024 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 Hypercalcemia 12/03/2022 Supplemental oxygen dependent 05/06/2022 Nasal septal perforation 05/06/2022 Chronic respiratory failure with hypoxia 022 Granulomatous lung disease 09/18/2021 Chronic rhinitis 06/10/2021 Schatzki's ring of distal esophagus 06/10/2021 Chronic right-sided heart failure 04/08/2020 Coronary artery disease invo lving [place] coronary artery of [place] heart without angina pectoris 11/21/2018 Abnormality of [...] as of this encounter (statuses as of 05/01/2024) Resolved Problems Problem Noted Date Diagnosed Date [...] as of this encounter (statuses as of 05/01/2024) Immunizations Name Administration Dates Next Due COVID-19 mRNA, LNP-s, No Pre serve, 2-Dose Series ([employer]) 05/14/2020,04/18/2020 Covid-19, Mrna, Lnp-s, Pf, B ivalent, 30 Mcg, IM, 12 yrs and above (FlexEl) 07/01/2023 H1N1 2009 Influenza, IM 04/22/2009 PPD [...] Industry Job Start Date Job End Date [employer] Not on file Not on file Not on file documented as of this encounter Miscellaneous Notes * Telephone Encounter - Vicenta Loco OSA - 05/01/2024 11:52 AM EDT Left another message on daughters cell. * Telephone Encounter - Martinez Valadez OSA - 04/26/2024 10:27 AM EST I spoke to adrianne. He wanted me to call his daughter to schedule surgery and all other appointments. Left message on daughter, Ciara's machine. * Telephone Encounter - Martinez Valadez OSA - 04/23/2024 2:18 PM EST lmom * Telephone Encounter - Martinez Valadez OSA - 04/19/2024 2:21 PM EST Lmom to offer surgery date and help schedule other visits. * Telephone Encounter - Kasey Radford OSA - 04/19/2024 9:40 AM EST Patient can be offered 05/31/24 at [facility] with . * Telephone Encounter - Hien Buchanan LPN - 04/19/2024 9:07 AM EST Urolift is only done at [facility]. * Telephone Encounter - Hien Buchanan LPN - 04/18/2024 4:42 PM EST Please call patient to schedule: Cardiology clearance Preop teaching 2 weeks prior to surgery Urolift under sedation 3 week postop Thank you Adilene documented in this encounter Plan of Treatment Upcoming Encounters Date Type Department Care Team (Late st Contact Info) Description 05/14/2024 12:00 PM EDT Office Visit Pulmonary Medicine, [facility] [address] [place] [address] Bashir Harding MD [address] [facility] [place] [address] 05/28/2024 3:00 PM EDT Office Visit Cardiology, [place] 400 [facility] [place], [place] [phone] Krystal Wilson CRNP 400 [facility] [place], [place] [phone] 06/07/2024 2:00 PM EDT Office Visit Dermatology, [facility] [address] [facility] [place] [phone] Gypsy Mujica PA-C [address] [place] [address] [place] [address] 06/19/2024 10:30 AM EDT Office Visit Orthopaedics [facility] [address] [place] [phone] Ely Cabrales MD [address] [place] [phone] 07/11/2024 3:00 PM EDT Office Visit General Internal Medicine [facility] [place] [address] [facility] [place] [address] Jennifer Sarkar MD 200 [facility] [place] [address] Scheduled Procedures Name Priority Associated Diagnoses Date/Ti [...] D LEVEL ONCE IN A LIFETIME-USE SMARTSET# [id number] Completed 03/14/2024, 10/20/2023, 08/17/2023, Additional history exists [...] this encounter Medical Devices Implanted Type Area Chronic Condition Nurse Device Identifier Shelf Expiration Date Model / Serial / Lot Lens Intraoc 23.0 - [id number] - [id number] Implanted:Qty: 1 on 12/21/2016 by Raj Bernard MD at OR [facility] Left: Eye [employer]CH [employer] LOMB 06/20/2021 [id number] / [id number] / Lens Intraoc 22.0 - [id number] - [id number] Implanted:Qty: 1 on 01/06/2017 by Raj Bernard MD at OR [facility] Right: Eye BAUSCH & LOMB 08/20/2021 [id number] / [id number] / [id number] documented as of this encounter Advance Directives [...] Power of Attor bj? No Care Teams Artist Consultant Relationship Specialty Start Date End Date Jennifer Sarkar MD [address] [place] [address] PCP - General Internal Medicine 10/06/20 documented as of this encounter
--- OUTSIDE RECORDS SUMMARY | 2024-05-28 02:48 | External Medical Summary | Summary of Care ---
Author Name Unknown Organization [facility] Address [address] [facility] [place] [address] Phone [phone] Care Team Providers Care Boring Machine Operator Name Role Phone Jennifer Sarkar MD Primary Care Provider [phone] Reason for Visit * Reason Onset Date Comments Appointment 04/18/2024 Schedule surgery , cardio clearance, preop teaching, 3 week postop Encounter Details Date Type Department Care Team (Late st Contact Info) Description 04/18/2024 Telephone Urology, [facility] [address] [facility] [place] [address] Man Gu MD [address] [place] [address] Appointment (Schedule surgery, cardio clarisse... Allergies Active Allergy Reactions Criticality Noted Date Comments Food (See Comments) 03/21/2018 Other reaction(s): WAS TOLD NOT TO TAKE grapefruit Tramadol Other (Please comment) High 10/06/2020 Hallucinations documented as of this encounter (statuses as of 05/10/2024) Medications NITROGLYCERIN 0.4 MG SL SUBLIndications:Ol d [...] Active Additional Information Patient taking differently:1,000 mg NcgqM7P PRN, ,may take 3rd dose in between [...] Oral Tablet (Lasix)Indications :Coronary artery disease involving stillaguamish coronary artery of stillaguamish heart without angina pectoris,Chronic right-sided heart failure [...] DEPRESSION 90 Tablet 1 024 04/24 Discontinued Lidocaine 4 % External Patch (Aspercreme)Indica tions:Ambulatory [...] as of this encounter (statuses as of 05/10/2024) Active Problems Problem Noted Date Diagnosed Date Calculus of kidney 04/18/2024 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 Hypercalcemia 12/03/2022 Supplemental oxygen dependent 05/06/2022 Nasal septal perforation 05/06/2022 Chronic respiratory failure with hypoxia 022 Granulomatous lung disease 09/18/2021 Chronic rhinitis 06/10/2021 Schatzki's ring of distal esophagus 06/10/2021 Chronic right-sided heart failure 04/08/2020 Coronary artery disease invo lving stillaguamish coronary artery of stillaguamish heart without angina pectoris 11/21/2018 Abnormality of [...] as of this encounter (statuses as of 05/10/2024) Resolved Problems Problem Noted Date Diagnosed Date [...] as of this encounter (statuses as of 05/10/2024) Immunizations Name Administration Dates Next Due COVID-19 mRNA, LNP-s, No Pre serve, 2-Dose Series (Absio) 05/14/2020,04/18/2020 Covid-19, Mrna, Lnp-s, Pf, B ivalent, 30 Mcg, IM, 12 yrs and above (Absio) 07/01/2023 H1N1 2009 Influenza, IM 04/22/2009 PPD [...] Industry Job Start Date Job End Date [employer] Not on file Not on file Not on file documented as of this encounter Miscellaneous Notes * Telephone Encounter - Kasey Radford OSA - 05/10/2024 3:37 PM EDT Date given below is no longer available. If patient calls back will have to look for the next available. Letter is being sent to patient to contact us to schedule. * Telephone Encounter - Vicenta Loco OSA - 05/01/2024 11:52 AM EDT Left another message on daughters cell. * Telephone Encounter - Martinez Valadez OSA - 04/26/2024 10:27 AM EST I spoke to adrianne. He wanted me to call his daughter to schedule surgery and all other appointments. Left message on daughter, [employer]. * Telephone Encounter - Martinez Valadez OSA - 04/23/2024 2:18 PM EST lmom * Telephone Encounter - Martinez Valadez OSA - 04/19/2024 2:21 PM EST Lmom to offer surgery date and help schedule other visits. * Telephone Encounter - Kasey Radford OSA - 04/19/2024 9:40 AM EST Patient can be offered 05/31/[address] [facility] with . * Telephone Encounter - Hien Buchanan LPN - 04/19/2024 9:07 AM EST Urolift is only done at [facility]. * Telephone Encounter - Hien Buchanan LPN - 04/18/2024 4:42 PM EST Please call patient to schedule: Cardiology clearance Preop teaching 2 weeks prior to surgery Urolift under sedation 3 week postop Thank you Adilene documented in this encounter Plan of Treatment Upcoming Encounters Date Type Department Care Team (Late st Contact Info) Description 05/14/2024 12:00 PM EDT Office Visit Pulmonary Medicine, [facility] [address] [facility] [place] [address] Bashir Harding MD [address] [facility] [place] [address] 05/28/2024 3:00 PM EDT Office Visit Cardiology, [place] [address] [place] [address] Krystal Wilson CRNP [address] [facility] [place] [address] 05/31/2024 10:40 AM EDT Office Visit Neurology [facility] [place] [place] [address] [place] [address] Ana María Santos MD [address] [place] [address] 06/07/2024 2:00 PM EDT Office Visit Dermatology, [address] [place] [address] Gypsy Mujica PA-C [address] [place] [address] [place] [address] 06/19/2024 10:30 AM EDT Office Visit Orthopaedics [facility] [address] [place] [address] Ely Cabrales MD [address] [place] [address] 07/11/2024 3:00 PM EDT Office Visit General Internal Medicine [facility] [address] [facility] [place] [address] Jennifer Sarkar MD [address] [facility] [place] [address] Scheduled Procedures Name Priority Associated Diagnoses Date/Ti [...] D LEVEL ONCE IN A LIFETIME-USE SMARTSET# [id number] Completed 03/14/2024, 10/20/2023, 08/17/2023, Additional history exists [...] this encounter Medical Devices Implanted Type Area Order Packer Device Identifier Shelf Expiration Date Model / Serial / Lot Lens Intraoc 23.0 - [id number] - [id number] Implanted:Qty: 1 on 12/21/2016 by Raj Bernard MD at OR [facility] Left: Eye [employer]CH [employer] LOMB 06/20/2021 [id number] / [id number] / Lens Intraoc 22.0 - [id number] - [id number] Implanted:Qty: 1 on 01/06/2017 by Raj Bernard MD at OR [facility] Right: Eye BAUSCH [employer] LOMB 08/20/2021 [id number] / [id number] / [id number] documented as of this encounter Advance Directives [...] Power of Attor bj? No Care Teams Boring Machine Operator Relationship Specialty Start Date End Date Jennifer Sarkar MD [address] [place] [address] PCP - General Internal Medicine 10/06/20 documented as of this encounter
--- OUTSIDE RECORDS SUMMARY | 2024-05-28 02:48 | External Medical Summary | Summary of Care ---
Author Name Unknown Organization [facility] Address [address] [facility] [place] [address] Phone [phone] Care Team Providers Care Sales Account Coordinator Name Role Phone Jennifer Sarkar MD Primary Care Provider [phone] Reason for Referral * Evaluate & Treat - Unlimited Visits (Within 10 days (routine)) - Authorized Specialty Diagnoses / Procedures Referred By Derek knight Referred To Contact Physical Therapy / Physical Medicine And Rehab Diagnoses Dizziness Jennifer Sarkar MD [address] [place] [address] Phone: tel: fax: Referral ID Status Reason Start Date Expiration Date Visits Requested Visits Authorized [id number] Authorized Specialty Services Required 05/09/2024 999 999 [...] mobility Rigidity (muscles) Jennifer Sarkar MD 200 [place] [address] Phone: tel: fax: Referral ID Status Reason Start Date Expiration Date Visits Requested Visits Authorized [id number] Authorized Specialty Services Required 05/09/2024 999 999 [...] General Internal Medicine [place] [address] [facility] [place] [address] Jennifer Sarkar MD [address] [facility] [place] [address] Hospital discharge follow-up*; Ambulatory dysfunction; Chronic respiratory failure with hypoxia (HCC); Restrictive lung disease; Severe obstructive sleep apnea; Supplemental oxygen dependent; Nasal septal perforation; Chronic right-sided heart failure (HCC); 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 30 Patch 5 024 2024 Disconti nued([facility] List Clean Up) documented as of this encounter (statuses as [...] failure 04/08/2020 Coronary artery disease invo lving yocha dehe coronary artery of yocha dehe heart without angina pectoris 11/21/2018 Abnormality [...] and draped in usual sterile manner. 14 [place] Islander flexible cystoscope inserted into urethra and [...] mRNA, LNP-s, No Pre serve, 2-Dose Series ([employer]) 05/14/2020,04/18/2020 Covid-19, Mrna, Lnp-s, Pf, B ivalent, 30 Mcg, IM, 12 yrs and above ([employer]) 07/01/2023 H1N1 2009 Influenza, IM 04/22/2009 PPD [...] Industry Job Start Date Job End Date [employer] Not on file Not on file [...] ring, status post Eso dilation, erosions in 2019 history of dysphagia, EGD 09/11 was normal [...] diff colitis. -sent to short-term rehab at [facility] and discharged from there on 11/26/2022 with home health through [facility]. Was treated with IV vancomycin and [...] function. hosp f/u 12/21/22 -Admitted to [facility] 12/08- with diagnosis of ambulatory dysfunction, [...] started on Augmentin. Speech therapy consulted-video swallow qrizv-qdeo-ph-moderate oropharyngeal dysphagia with suspected esophageal dysfunction, aspiration [...] needs ann-last in 2019, had order from [facility] 08/12 but not ann yet - seen yesterday for cough, got RF Tessalon, respiratory pathogen panel positive for rhino virus. -daughter accompanies him today again. He has not been using the Combivent, has a cough seems productive of sputum which he is unable to expectorate. No fever or chills. No leg edema. Denies diarrhea. [facility] nurse came in yesterday, to start [...] eval of hypercalcemia 03/23/23--was admitted to [facility] 01/03/23 to 01/09/2023 and discharged to rehab [facility] 01/22/2023, seen in the ED 03/12/2023 Accompanied by his neighbor today. Daughter is in the process of finding permanent placement at assisted living facility Has nursing through [facility] home health. Reviewed discharge instructions from custodial, discharged on oxygen 3 L was to [...] for p.r.n. use at discharge from the custodial, is asking for refill, given his history of falls try to avoid narcotics. Home health has been feeling his medication boxes he wants them to continue to come in for few moreweeks 03/23/23-Normal CMP except calcium high at 10.5 stable lipids TSH. -confirm he is not taking multivitamin or calcium supplement. -check ionized calcium, vitamin-D, PTH on 04/07 at [facility] -submit 24 hour urine for [...] admitted the hospital 07/03/2023 discharged 07/13/2023 to [facility], unsure when he was discharged from [...] by PT and OT recommended discharge to senior living facility. Chest x-ray showed small right pleural [...] reviewed. Has not been ann pulm appt -admitted to the hospital 12/27/2023, discharged 12/31/2023 with a final diagnosis of ambulatory dysfunction chronic back pain. Accompanied by his neighbor States he was some getting out of his lift chair and slipped and had trouble getting up had worsening back pain. Workup- Lumbar CT-severe levoscoliosis the only partially covered curvature Linda angle 51°, ktrvxmul-ty-vohfve degenerative changes, facet arthropathy, neuroforaminal narrowing more [...] and discharged home with home health through [facility], [facility] nurses coming about twice a week and [...] filling up forms for financial assistance for [place] as per review of Rheumatology notes. Saw [...] - 08/03/23 , had CT 07/11/23 [facility] adm--ER notes and CT scan done July 11, 2023 are reviewed demonstrating a 15 mm left stone -BPH, stone ds--added finasteride , f/u 4 mths 12/20/23 with kub Elizabeth menendez 10/20/23--ordered labs, 24 urine test,ur acid [...] on drug along w/ cmp 01/14---saw Dr. Gu 12/20/2023-medication was switched back to dutasteride tamsulosin 0.4 mg continued, PSA ordered Recent labs rev stable-sent tel enc to nephro reg allopurinol. 05/09/2024--admitted to the hospital 04/12/2024 discharged to rehab 04/26/2024 and sent home 05/07/2024. Final diagnosis physical deconditioning ambulatory dysfunction. States he was unable to get off the commode despite trying for 1 hour and called the ambulance Labs-normal CBC except WBC 50582, normal BMP except bicarb 39, normal LFT, [...] Tylenol as needed clopidogrel 75 mg, Aldactone 25 mg daily, rosuvastatin 5 mg daily, propranolol 20 mg three times daily Combivent four times daily, Singulair 10 mg daily,. Protonix 20 mg daily, levothyroxine 112 mcg daily citalopram 20 mg daily, duloxetine 60 mg daily Tamsulosin 0.5 mg daily, dutasteride 0.5 mg daily, VESIcare 5 mg daily Home health nurse through 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 Abnormality of gait [...] COVID-19 mRNA, LNP-s, No Preserve, 2-Dose Series ([employer]) 04/18/2020, 05/14/2020 Covid-19, Mrna, Lnp-s, Pf, Bivalent, 30 Mcg, IM, 12 yrs and above ([employer]) 07/01/2023 H1N1 2009 Influenza, IM 04/22/2009 PPD [...] motor no focal deficits, no nystagmus,Neg cerebellar signs.-mvuj-po-pmhd, dysdiadochokinesis, Mild cog wheel rigidity arms Ext--+ [...] METABOLIC PANEL; Future; Expected date: 05/14/2024 - POSITIONAL BLOOD PRESSURE - ADULT NEUROLOGY REFERRAL OP Chronic respiratory failure with hypoxia (HCC) - BASIC METABOLIC PANEL; Future; Expected date: 05/14/2024 - POSITIONAL BLOOD PRESSURE Restrictive lung disease - 3 POSITIONAL BLOOD PRESSURE Severe obstructive sleep apnea Supplemental oxygen dependent Nasal septal perforation Chronic right-sided heart failure (HCC) - BASIC METABOLIC PANEL; Future; Expected date: 05/14/2024 - POSITIONAL BLOOD PRESSURE 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 - 3 POSITIONAL BLOOD PRESSURE HTN, GOAL BELOW 140/90 - BASIC METABOLIC PANEL; Future; Expected date: 05/14/2024 - POSITIONAL BLOOD PRESSURE Essential tremor - ADULT [...] -is using compression socks knee-high as daily -front office manager recommended addition of allopurinol 03/14/2024, labs due [...] a glass of water every 3 days HIRMABEL has f/u daughter regarding filling out forms [...] 05/28/2024 3:00 PM EDT Office Visit Cardiology, [place] [address] [place] [address] Krystal Wilson CRNP [address] [facility] [place] [address] 05/31/2024 10:40 AM EDT Office Visit Neurology [facility] [address] [facility] [place] [address] Ana María Santos MD [address] [facility] [place] [address] 06/07/2024 2:00 PM EDT Office Visit Dermatology, [facility] [address] [facility] [place] [phone] Gypsy Mujica PA-C [address] [place] [address] [place] [address] 06/19/2024 10:30 AM EDT Office Visit Orthopaedics [facility] [address] [place] [phone] Ely Cabrales MD [address] [place] [phone] 07/11/2024 3:00 PM EDT Office Visit General Internal Medicine [facility] [place] [address] [facility] [place] [address] Jennifer Sarkar MD [address] [facility] [place] [address] Pending Results Name Type Priority Associated Diagnoses Date /Time BASIC METABOLIC PANEL Lab STAT Ambulatory dysfunction Hospital discharge follow-up Chronic respiratory failure with hypoxia (HCC) Chronic right-sided heart failure (HCC) HTN, GOAL BELOW 140/90 05/17/2024 3:19 PM EDT Scheduled Orders Name Type Priority Associated Diagnoses Orde r Schedule BASIC METABOLIC PANEL Lab STAT Ambulatory dysfunction Hospital discharge follow-up Chronic respiratory failure with hypoxia (HCC) Chronic right-sided heart failure (HCC) HTN, GOAL BELOW 140/90 Expected: 05/14/2024 (Approximate), Expires: 05/09/2025 3 POSITIONAL BLOOD PRESSURE Procedures Routine Ambulatory dysfunction Chronic respiratory failure with hypoxia (HCC) Restrictive lung disease Chronic right-sided heart failure (HCC) 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 HTN, GOAL BELOW 140/90 Dizziness Ordered: 05/09/2024 Scheduled Procedures Name Priority Associated Diagnoses Date/Ti la CYSTOURETHROSCOPY, WITH INSE RTION OF PERMANENT ADJUSTABLE [...] D LEVEL ONCE IN A LIFETIME-USE SMARTSET# [id number] Completed 03/14/2024, 10/20/2023, 08/17/2023, Additional history exists [...] this encounter Medical Devices Implanted Type Area Brick And Tile Making Machine Operator Device Identifier Shelf Expiration Date Model / Serial / Lot Lens Intraoc 23.0 - [id number] - [id number] Implanted:Qty: 1 on 12/21/2016 by Raj Bernard MD at OR [facility] Left: Eye [employer]CH [employer] LOMB 06/20/2021 [id number] / [id number] / Lens Intraoc 22.0 - [id number] - [id number] Implanted:Qty: 1 on 01/06/2017 by Raj Bernard MD at OR [facility] Right: Eye BAUSCH [employer] LOMB 08/20/2021 [id number] / [id number] / [id number] documented as of this encounter Visit Diagnoses [...] heart failure, unspecified 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 No Care Teams Sales Account Coordinator Relationship Specialty Start Date End Date Jennifer Sarkar MD [address] [place] [address] PCP - General Internal Medicine 10/06/20 documented as of this encounter"
--- OUTSIDE RECORDS SUMMARY | 2024-05-28 02:48 | External Medical Summary | Summary of Care ---
Author Name Unknown Organization [facility] Address [address] [place] [address] Phone [phone] Care Team Providers Care Junior Project Coordinator Name Role Phone Jennifer Sarkar MD Primary Care Provider [phone] Reason for Visit * Reason Comments Outpatient Testing Encounter Details Date Type Department Care Team (Late st Contact Info) Description 05/17/2024 3:20 PM EDT Laboratory Laboratory, [place] [address] [place] [address] [place], [facility] [address] [facility] [place] [id number] Ambulatory dysfunction; Hospital discharge follow-up; Chronic respiratory failure with hypoxia (HCC); Chronic right-sided heart failure (HCC); HTN, GOAL BELOW 140/90 Allergies Active Allergy Reactions Criticality Noted Date Comments Food (See Comments) 03/21/2018 Other reaction(s): WAS TOLD NOT TO TAKE grapefruit Tramadol Other (Please comment) High 10/06/2020 Hallucinations documented as of this encounter (statuses as of 05/17/2024) Medications NITROGLYCERIN 0.4 MG SL SUBLIndications:Old myocardial [...] Active Additional Information Patient taking differently:1,000 mg [id number] PRN, ,may take 3rd dose in between --12/21/2021, Reported on 05/09/2024 Saline Nasal Gel (Nasogel)Indication s:Chronic respiratory failure with hypoxia (HCC),Supplemental oxygen dependent,Nasal septal perforation,Nose dryness Administer into each nostril daily. 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 90 Capsule 3 12/20/19 24 Active Clopidogrel Bisulfate 75 MG Oral [...] Oral Tablet (Lasix)Indications: Coronary artery disease involving [place] coronary artery of [place] heart without angina pectoris,Chronic right-sided heart failure [...] DEPRESSION 90 Tablet 1 04/25/19 25 Active Docusate Sodium 100 MG Oral Capsule (Colace)Indications :Other constipation Take 1 Capsule by mouth in the morning and 1 Capsule before bedtime. 60 Capsule 11 05/10/19 25 Active Polyethylene Glycol 3350 17 GM/SCOOP Oral Powder (MiraLax)Indication s:Other constipation Dissolve one heaping tablespoon in 8 ounces of water or juice every 3 days as needed for constipation 05/10/19 25 Active documented as of this encounter (statuses as of 05/17/2024) Active Problems Problem Noted Date Diagnosed Date Calculus of kidney 04/18/2024 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 Hypercalcemia 12/03/2022 Supplemental oxygen dependent 05/06/2022 Nasal septal perforation 05/06/2022 Chronic respiratory failure with hypoxia 022 Granulomatous lung disease 09/18/2021 Chronic rhinitis 06/10/2021 Schatzki's ring of distal esophagus 06/10/2021 Chronic right-sided heart failure 04/08/2020 Coronary artery disease invo lving [place] coronary artery of [place] heart without angina pectoris 11/21/2018 Abnormality of [...] as of this encounter (statuses as of 05/17/2024) Resolved Problems Problem Noted Date Diagnosed Date [...] as of this encounter (statuses as of 05/17/2024) Immunizations Name Administration Dates Next Due COVID-19 mRNA, LNP-s, No Pre serve, 2-Dose Series ([facility]) 05/14/2020,04/18/2020 Covid-19, Mrna, Lnp-s, Pf, B ivalent, 30 Mcg, IM, 12 yrs and above ([facility]) 07/01/2023 H1N1 2009 Influenza, IM 04/22/2009 PPD [...] Industry Job Start Date Job End Date [employer] Not on file Not on file Not on file documented as of this encounter Plan of Treatment Upcoming Encounters Date Type Department Care Team (Late st Contact Info) Description 05/28/2024 3:00 PM EDT Office Visit Cardiology, [place] [address] [address] Krystal Wilson CRNP [address] [address] 05/31/2024 10:40 AM EDT Office Visit Neurology [facility] [address] [facility] [place], [place] [address] Ana María Santos MD [address] [place] [address] 06/07/2024 2:00 PM EDT Office Visit D[facility]atology, [place] [facility] [address] [facility] [place] [phone] Gypsy Mujica PA-C [address] [place] [address] [place] [address] 06/19/2024 10:30 AM EDT Office Visit Orthopaedics [facility] [address] [place] [phone] Ely Cabrales MD [address] [place] [phone] 07/11/2024 3:00 PM EDT Office Visit General Internal Medicine [facility] [address] [facility] [place], [place] [address] Jennifer Sarkar MD [address] [facility] [address] [place] [address] Pending Results Name Type Priority Associated Diagnoses Date /Time BASIC METABOLIC PANEL Lab STAT Ambulatory dysfunction Hospital discharge follow-up Chronic respiratory failure with hypoxia (HCC) Chronic right-sided heart failure (HCC) HTN, GOAL BELOW 140/90 05/17/2024 3:19 PM EDT Scheduled Procedures Name Priority Associated [...] D LEVEL ONCE IN A LIFETIME-USE SMARTSET# [id number] Completed 03/14/2024, 10/20/2023, 08/17/2023, Additional history exists [...] this encounter Medical Devices Implanted Type Area Aids Social Worker Device Identifier Shelf Expiration Date Model / Serial / Lot Lens Intraoc 23.0 - [id number] - [id number] Implanted:Qty: 1 on 12/21/2016 by Raj Bernard MD at OR [facility] Left: Eye [employer]OM[employer] 06/20/2021 [id number] / [id number] / Lens Intraoc 22.0 - [id number] - [id number] Implanted:Qty: 1 on 01/06/2017 by Raj Bernard MD at [facility] Right: Eye [employer]OMB 08/20/2021 [id number] / [id number] / [id number] documented as of this encounter Visit Diagnoses Diagnosis Ambulatory dysfunction Hospital discharge follow-up Other follow-up examination Chronic respiratory failure with hypoxia (HCC) Chronic respiratory failure Chronic right-sided heart failure (HCC) Congestive heart failure, unspecified HTN, GOAL BELOW 140/90 Unspecified essential hypertension [...] Power of Attor bj? No Care Teams Junior Project Coordinator Relationship Specialty Start Date End Date Jennifer Sarkar MD [address] [place] [address] PCP - General Internal Medicine 10/06/20 documented as of this encounter
--- OUTSIDE RECORDS SUMMARY | 2024-05-28 02:48 | External Medical Summary | Summary of Care ---
Author Name Unknown Organization [facility] Address [address] [facility] [place] [address] Phone [phone] Care Team Providers Care Health Information Management Director Name Role Phone Jennifer Sarkar MD Primary Care Provider [phone] Reason for Visit * Reason Comments eRx-Medication Refill Encounter Details Date Type Department Care Team (Late st Contact Info) Description 05/11/2024 Refill General Internal Medicine [facility] 200 [facility] [place] [address] Jennifer Sarkar MD 200 [place] [address] Dizziness; Benign paroxysmal positional vertigo, unspecified laterality Allergies Active Allergy Reactions Criticality Noted Date Comments Food (See Comments) 03/21/2018 Other reaction(s): WAS TOLD NOT TO TAKE grapefruit Tramadol Other (Please comment) High 10/06/2020 Hallucinations documented as of this encounter (statuses as of 05/12/2024) Medications NITROGLYCERIN 0.4 MG SL SUBLIndications:Old myocardial [...] Active Additional Information Patient taking differently:1,000 mg [id number] PRN, ,may take 3rd dose in between --12/21/2021, Reported on 05/09/2024 Saline Nasal Gel (Nasogel)Indication s:Chronic respiratory failure with hypoxia (HCC),Supplemental oxygen dependent,Nasal septal perforation,Nose dryness Administer into each nostril daily. 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 respiratory failure with hypoxia (HCC),Chronic right-sided [...] Oral Tablet (Lasix)Indications: Coronary artery disease involving koi coronary artery of koi heart without angina pectoris,Chronic right-sided heart failure [...] as of this encounter (statuses as of 05/12/2024) Active Problems Problem Noted Date Diagnosed Date [...] as of this encounter (statuses as of 05/12/2024) Resolved Problems Problem Noted Date Diagnosed Date [...] as of this encounter (statuses as of 05/12/2024) Immunizations Name Administration Dates Next Due COVID-19 mRNA, LNP-s, No Pre serve, 2-Dose Series ([employer]) 05/14/2020,04/18/2020 Covid-19, Mrna, Lnp-s, Pf, B ivalent, 30 Mcg, IM, 12 yrs and above ([employer]) 07/01/2023 H1N1 2009 Influenza, IM 04/22/2009 PPD [...] Industry Job Start Date Job End Date [place] [employer] Not on file Not on file Not on file documented as of this encounter Miscellaneous Notes * Telephone Encounter - Cristy Guerrero, [facility] - 05/12/2024 8:46 AM EDT Refused Prescriptions: Disp Refills Meclizine HCl 12.5 MG Oral Tablet (Antiver*30 Tab*0 Sig: TAKE 1TABLET BY MOUTH DAILY NEEDED FOR DIZZINESSRefused By: CRISTY GUERRERO for Refusal: Course of treatment complete documented in this encounter Plan of Treatment Upcoming Encounters Date Type Department Care Team (Late st Contact Info) Description 05/14/2024 12:00 PM EDT Office Visit Pulmonary Medicine, [facility] [address] [place] [address] Bashir Harding MD [address] [facility] [place] [address] 05/28/2024 3:00 PM EDT Office Visit Cardiology, [place] [address] [facility] [place] [phone] Krystal Wilson CRNP [address] [facility] [place], [place] [phone] 05/31/2024 10:40 AM EDT Office Visit [facility] [address] Ana Mar[facility] Santos [facility] [address] 06/07/2024 2:00 PM EDT [facility] [address] [facility] [place] [phone] Gypsy Mujica PA-C [address] [place] [address] [place] [address] 06/19/2024 10:30 AM EDT Office Visit Orthopaedics [facility] [address] [place] [phone] Ely Cabrales MD [address] [place] [phone] 07/11/2024 3:00 PM EDT Office Visit General Internal Medicine [facility] [address] [place] [address] Jennifer Sarkar MD [address] [facility] [place] [address] Scheduled Procedures Name Priority Associated Diagnoses Date/Ti [...] D LEVEL ONCE IN A LIFETIME-USE SMARTSET# [id number] Completed 03/14/2024, 10/20/2023, 08/17/2023, Additional history exists [...] this encounter Medical Devices Implanted Type Area Personal Lines Sales Executive Device Identifier Shelf Expiration Date Model / Serial / Lot Lens Intraoc 23.0 - [id number] - [id number] Implanted:Qty: 1 on 12/21/2016 by Raj Bernard MD at OR [facility] Left: Eye [employer]OM[employer] 06/20/2021 [id number] / [id number] / Lens Intraoc 22.0 - [id number] - [id number] Implanted:Qty: 1 on 01/06/2017 by Raj Bernard MD at OR [facility] Right: Eye [employer] LOMB 08/20/2021 [id number] / [id number] / [id number] documented as of this encounter Visit Diagnoses [...] Power of Attor bj? No Care Teams Health Information Management Director Relationship Specialty Start Date End Date Jennifer Sarkar MD [address] [place] [address], [place] [address] PCP - General Internal Medicine 10/06/20 documented as of this encounter
--- OUTSIDE RECORDS SUMMARY | 2024-05-28 02:48 | External Medical Summary | Summary of Care ---
Author Name Unknown Organization [facility] Address [address] [facility] [place] [address] Phone [phone] Care Team Providers Care Drawbridge Operator Name Role Phone Jennifer Sarkar MD Primary Care Provider [phone] Reason for Visit * Reason Comments eRx-Medication Refill Encounter Details Date Type Department Care Team (Late st Contact Info) Description 03/16/2024 Refill General Internal Medicine [facility] 200 [facility] [place] [address] Jennifer Sarkar MD 200 [place] [address] Dizziness; Benign paroxysmal positional vertigo, unspecified laterality [...] Active Additional Information Patient taking differently:1,000 mg [id number] PRN, ,may take 3rd dose in between [...] mRNA, LNP-s, No Pre serve, 2-Dose Series ([employer]) 05/14/2020,04/18/2020 Covid-19, Mrna, Lnp-s, Pf, B ivalent, 30 Mcg, IM, 12 yrs and above ([employer]) 07/01/2023 H1N1 2009 Influenza, IM 04/22/2009 PPD [...] Industry Job Start Date Job End Date [employer] Not on file Not on file Not on file documented as of this encounter Miscellaneous Notes * Telephone Encounter - Altagracia Shelton LPN - 04/27/2024 3:54 PM EST See 04/18 refill encounter. * Telephone Encounter - Hugh Mantilla RN - 04/13/2024 12:33 PM EST Attempted to call patient, there was no answer, left voicemail. When patient returns call, ok for EZEQUIEL to relay message, please refer to Dr. Sarkar's and Cristy's previous documentation. If needed, can transfer to dedicated nurse line. * Telephone Encounter - Jennifer Sarkar MD - 04/03/2024 12:26 PM EST See info below by pharmacist * Telephone Encounter - Michelle Camara LPN - 04/03/2024 9:40 AM EST What are the new guidelines? * Telephone Encounter - Jennifer Sarkar MD - 03/16/2024 1:43 PM EST Please let patient know of new guidelines for meclizine use and jose enrique appt for eval if still has dizziness * Telephone Encounter - Cristy Guerrero RP - 03/16/2024 12:53 PM EST Refused Prescriptions: Disp Refills Meclizine HCl 12.5 MG Oral Tablet (Antiver*30 Tab*0 Sig: TAKE 1 TABLET BY MOUTH DAILY NEEDED FOR DIZZINESS Refused By: CRISTY GUERRERO Reason for Refusal: Dose needs clarification * Telephone Encounter - Cristy Guerrero RPh - 03/16/2024 12:49 PM EST Unable to authorize medication refills for pended medication(s) at this time. Part of the protocol criteria used for refill authorization was not satisfied: The last prescription was ordered before the Planned Duration and Indication questions were implemented, so these have not been selected. Meclizine is typically intended for acute use as a PRN medication and not for long-term routine use, and the patient has been taking meclizine for more than 3 months. Please consider referral to one of the [...] to position changes or head movement (BPPV). Cristy Calix [facility] Clinical Pharmacist [facility] ([facility]) [phone] documented in this encounter Plan of Treatment Upcoming Encounters Date Type Department Care Team (Late st Contact Info) Description 05/14/2024 12:00 PM EDT Office Visit Pulmonary Medicine, [facility] [address] [facility] [place] [phone] Bashir Harding MD [address] [facility] [place] [address] 05/28/2024 3:00 PM EDT Office Visit Cardiology, [place] [address] [place] [address] Krystal Wilson CRNP [address] [facility] [place] [address] 06/07/2024 2:00 PM EDT Office Visit Dermatology, [address] [phone] Gypsy Mujica PA-C [address] [place] [address] [place] [phone] 06/19/2024 10:30 AM EDT Office Visit Orthopaedics [facility] [address] [place] [address] Ely Cabrales MD [address] [place] [address] 07/11/2024 3:00 PM EDT Office Visit General Internal Medicine [facility] 200 [facility] [place] [address] Jennifer Sarkar MD 200 [facility] [place] [address] Scheduled Procedures Name Priority Associated Diagnoses Date/Ti [...] D LEVEL ONCE IN A LIFETIME-USE SMARTSET# [id number] Completed 03/14/2024, 10/20/2023, 08/17/2023, Additional history exists [...] this encounter Medical Devices Implanted Type Area Public Relations Assistant Device Identifier Shelf Expiration Date Model / Serial / Lot Lens Intraoc 23.0 - [id number] - [id number] Implanted:Qty: 1 on 12/21/2016 by Raj Bernard MD at OR [facility] Left: Eye [employer]OMB 06/20/2021 [id number] / [id number] / Lens Intraoc 22.0 - [id number] - [id number] Implanted:Qty: 1 on 01/06/2017 by Raj Bernard MD at OR [facility] Right: Eye [employer]OMB 08/20/2021 [id number] / [id number] / [id number] documented as of this encounter Visit Diagnoses [...] Power of Attor bj? No Care Teams Drawbridge Operator Relationship Specialty Start Date End Date Jennifer Sarkar MD [address] [place] [address] PCP - General Internal Medicine 10/06/20 documented as of this encounter
--- OUTSIDE RECORDS SUMMARY | 2024-05-28 02:48 | External Medical Summary ---
Author Name Unknown Address Unknown Organization K01:[facility] [address] [facility] [address] [place] [address] Laboratory Report Ordering Provider Test Date Status JESSA METZGER 05/17/2024 15:19:15 Final Observation Date Value Abnormality Reference (Units ) Status BUN 05/17/2024 15:19:15 10 6-20 (mg/dL) Final Creatinine 05/17/2024 15:19:15 0.9 0.6-1.2 (mg/dL) Final Glomerular filtration rate/1.73 sq M.predicted [Volume Rate/Area] in Serum, Plasma or Blood by Creatinine-based formula (CKD-EPI) 05/17/2024 15:19:15 81 >=60 (mL/min) Final eGFR is calculated based on the CKD-EPI 2020 equation. Sodium 05/17/2024 15:19:15 140 135-146 (m mol/L) Final Potassium 05/17/2024 15:19:15 3.3 Below low normal 3.5 -5.1 (mmol/L) Final Cl 05/17/2024 15:19:15 92 Below low normal 98- 107 (mmol/L) Final CO2 05/17/2024 15:19:15 34 Above high normal 22 -32 (mmol/L) Final Anion gap 05/17/2024 15:19:15 14 7-15 (mmol /L) Final Glucose 05/17/2024 15:19:15 100 70-120 (mg /dL) Final Calcium 05/17/2024 15:19:15 9.7 8.4-10.2 ( mg/dL) Final Performing Location [facility] [address] [place] [address]
--- OUTSIDE RECORDS SUMMARY | 2024-05-28 02:49 | External Medical Summary | Summary of Care ---
Author Name Unknown Organization [facility] Address [address] [facility] [place] [address] Phone [phone] Care Team Providers Care Process Engineering Manager Name Role Phone Domenica Sarkar MD Primary Care Provider [phone] Reason for Referral * Evaluate & Treat - Unlimited Visits (Within 10 days (routine)) - Authorized Specialty Diagnoses / Procedures Referred By Contac t Referred To Contact Physical Therapy / Physical Medicine And Rehab Diagnoses Dizziness Benign paroxysmal positional vertigo, unspecified laterality Domenica Sarkar MD [facility] [place] [address] Phone: tel: fax: Referral ID Status Reason Start Date Expiration Date Visits Requested Visits Authorized [id number] Authorized Specialty Services Required 04/20/[phone] Question Answer Referral Priority Within 10 days (routine) Where should this appointment be scheduled? External Comments Vestibular rehab Reason for Visit * Reason Comments eRx-Medication Refill Encounter Details Date Type Department Care Team (Late st Contact Info) Description 04/18/2024 Refill General Internal Medicine [address] [place] [address] [place] [address] Domenica Sarkar MD [address] [place] [address] Dizziness; Benign paroxysmal positional vertigo, unspecified laterality Allergies Active Allergy Reactions Criticality Noted Date Comments Food (See Comments) 03/21/2018 Other reaction(s): WAS TOLD NOT TO TAKE grapefruit Tramadol Other (Please comment) High 10/06/2020 Hallucinations documented as of this encounter (statuses as of 04/20/2024) Medications NITROGLYCERIN 0.4 MG SL SUBLIndications:Old myocardial [...] Active Additional Information Patient taking differently:1,000 mg [id number] PRN, ,may take 3rd dose in between --12/21/2021, Reported on 03/16/2024 Saline Nasal Gel (Nasogel)Indication s:Chronic respiratory failure with hypoxia (HCC),Supplemental oxygen dependent,Nasal septal perforation,Nose dryness Administer into each nostril daily. For dryness(nasal septal perforation) 14 g 023 Active oxygen 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:Vp Clinical Research jonathan respiratory failure with hypoxia (HCC),Chronic right-sided [...] Oral Tablet (Lasix)Indications: Coronary artery disease involving [place] coronary artery of [place] heart without angina pectoris,Chronic right-sided heart failure (HCC),Bilateral leg edema,Encounter for monitoring diuretic therapy Take 1 Tablet by mouth 2 times a day. 180 Tablet 3 025 Active Solifenacin Succinate 5 MG Oral Tablet (VESIcare) Take 1 Tablet by mouth in the morning. 30 Tablet 6 025 Active Meclizine HCl 12.5 MG Oral Tablet (Antivert)Indicatio ns:Dizziness,Benign paroxysmal positional vertigo, unspecified laterality Take 1 Tablet by mouth daily as needed for Dizziness. 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 Essential tremor documented as of this encounter (statuses as of 04/20/2024) Resolved Problems Problem Noted Date Diagnosed Date [...] and draped in usual sterile manner. 14 Malaysian flexible cystoscope inserted into urethra and guided [...] as of this encounter (statuses as of 04/20/2024) Immunizations Name Administration Dates Next Due COVID-19 mRNA, LNP-s, No Pre serve, 2-Dose Series ([employer]) 05/14/2020,04/18/2020 Covid-19, Mrna, Lnp-s, Pf, B ivalent, 30 Mcg, IM, 12 yrs and above (SyMynd) 07/01/2023 H1N1 2009 Influenza, IM 04/22/2009 PPD [...] Industry Job Start Date Job End Date [employer] Not on file Not on file [...] March 30 message was routed to nurse pool to let patient know to discontinue meclizine and if any dizziness persists then will refer him to vestibular rehab. --referral done--to schedule. * Telephone Encounter - Yumiko Ramos [facility] - 04/20/2024 10:10 AM ESTPending Prescriptions: Disp [...] clarification * Telephone Encounter - Yumiko Ramos [facility] - 04/20/2024 10:10 AM EST Unable to [...] changes or head movement (BPPV). Thanks, Yumiko Ramos, PharmD Clinical Pharmacist [facility] ([facility]) [phone] 04/20/2024 10:10 AM * Telephone Encounter - Yumiko Ramos [facility] - 04/20/2024 10:08 AM EST Pending Prescriptions: [...] date the medication was ordered: 01/11/24 Pharmacy: [id number] [address] Is this request for a controlled substance? [...] 12:00 PM EDT Office Visit Pulmonary Medicine, [facility] [address] [place] [id number] Bashir Harding MD [address] [facility] [place] [address] 06/07/2024 2:00 PM EDT Office Visit Dermatology, [address] [place] [phone] Gypsy Mujica PA-C [address] [place] [address] [place] [address] 06/19/2024 10:30 AM EDT Office Visit Orthopaedics [facility] [address] [place] [phone] Ely Cabrales MD [address] [place] [address] 07/11/2024 3:00 PM EDT Office Visit General Internal Medicine [facility] 200 [facility] [place] [address] Domenica Sarkar MD 200 [facility] [place] [address] Scheduled Procedures Name Priority Associated Diagnoses Date/Ti [...] D LEVEL ONCE IN A LIFETIME-USE SMARTSET# [id number] Completed 03/14/2024, 10/20/2023, 08/17/2023, Additional history exists [...] Medical Devices Implanted Type Area Vice President Business & Corporate Development Device Identifier Shelf Expiration Date Model / Serial / Lot Lens Intraoc 23.0 - [id number] - [id number] Implanted:Qty: 1 on 12/21/2016 by Raj Bernard MD at OR [facility] Left: Eye BAUSCH [employer] LOMB 06/20/2021 [id number] / [id number] / Lens Intraoc 22.0 - [id number] - [id number] Implanted:Qty: 1 on 01/06/2017 by Raj eBrnard MD at OR [facility] Right: Eye BAUSCH & LOMB 08/20/2021 [id number] / [id number] / [id number] documented as of this encounter Visit Diagnoses [...] Power of Attor bj? No Care Teams Process Engineering Manager Relationship Specialty Start Date End Date Domenica Sarkar MD 200 [place] [address] PCP - General Internal Medicine 10/06/20 documented as of this encounter
--- OUTSIDE RECORDS SUMMARY | 2024-05-28 02:49 | External Medical Summary | Summary of Care ---
Author Name Unknown Organization [facility] Address [address] [facility] [place] [address] Phone [phone] Care Team Providers Care Lens Molding Equipment Operator Name Role Phone Jennifer Sarkar MD Primary Care Provider [phone] Reason for Visit * Reason Onset Date Comments Abnormal Test Results 03/15/2024 Vit D Encounter Details Date Type Department Care Team (Late st Contact Info) Description 03/15/2024 Telephone Rheumatology [facility] [address] [place] [phone] Meryl Santiago CRNP [address] [facility] [address] Abnormal Test Results (Vit D) Allergies Active Allergy Reactions Criticality Noted Date Comments Food (See Comments) 03/21/2018 Other reaction(s): WAS TOLD NOT TO TAKE grapefruit Tramadol Other (Please comment) High 10/06/2020 Hallucinations documented as of this encounter (statuses as of 04/26/2024) Medications NITROGLYCERIN 0.4 MG SL SUBLIndications:Ol d [...] Active Additional Information Patient taking differently:1,000 mg TrwbX3C PRN, ,may take 3rd dose in between [...] as of this encounter (statuses as of 04/26/2024) Active Problems Problem Noted Date Diagnosed Date Calculus of kidney 04/18/2024 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 14 Upper Sorbian flexible cystoscope inserted into urethra and guided [...] HYPERTENSION NOS 01/13/2009 Overview (01/13/2009): Modified per [facility] protocol #16. Screening for prostate cancer 01/03/2007 Asthma, allergic 04/22/2009 Osteoporosis 02/24/2017 documented as of this encounter (statuses as of 04/26/2024) Immunizations Name Administration Dates Next Due COVID-19 mRNA, LNP-s, No Pre serve, 2-Dose Series ([employer]) 05/14/2020,04/18/2020 Covid-19, Mrna, Lnp-s, Pf, B [...] Industry Job Start Date Job End Date [employer] Not on file Not on file [...] out to pt to offer FA for [place] Thank you! * Telephone Encounter - Niya [...] unable to get Prolia due to the ofm-yl-nlzmpw cost. Advised me to contact his daughter to discuss Prolia further. documented in this encounter Plan of Treatment Upcoming Encounters Date Type Department Care Team (Late st Contact Info) Description 05/14/2024 12:00 PM EDT Office Visit Pulmonary Medicine, [facility] [place] [address] Bashir Harding MD [address] [facility] [address] 05/28/2024 3:00 PM EDT Office Visit Cardiology, [place] [address] [facility] [place] [address] Krystal Wilson CRNP [address] [facility] [place], [place] [id number] 06/07/2024 2:00 PM EDT Office Visit Dermatology, [facility] [address] [facility] [phone] Gypsy Mujica PA-C [address] [place] [address] [place] [address] 06/19/2024 10:30 AM EDT Office Visit Orthopaedics [facility] [address] [place] [phone] Ely Cabrales MD [address] [place] [phone] 07/11/2024 3:00 PM EDT Office Visit General Internal Medicine [facility] 200 [facility] [place] [address] Jennifer Sarkar MD [address] [facility] [place] [address] Scheduled Procedures Name Priority Associated Diagnoses Date/Ti [...] D LEVEL ONCE IN A LIFETIME-USE SMARTSET# [id number] Completed 03/14/2024, 10/20/2023, 08/17/2023, Additional history exists [...] this encounter Medical Devices Implanted Type Area Youth Career Specialist Device Identifier Shelf Expiration Date Model / Serial / Lot Lens Intraoc 23.0 - [id number] - [id number] Implanted:Qty: 1 on 12/21/2016 by Raj Bernard MD at OR [facility] Left: Eye BAUSCH [employer] LOMB 06/20/2021 [id number] / [id number] / Lens Intraoc 22.0 - [id number] - [id number] Implanted:Qty: 1 on 01/06/2017 by Raj Bernard MD at OR [facility] Right: Eye BAUSCH [employer] LOMB 08/20/2021 [id number] / [id number] / [id number] documented as of this encounter Advance Directives [...] Power of Attor bj? No Care Teams Lens Molding Equipment Operator Relationship Specialty Start Date End Date Jennifer Sarkar MD [address] [place] [address], [place] [address] PCP - General Internal Medicine 10/06/20 documented as of this encounter
--- OUTSIDE RECORDS SUMMARY | 2024-05-28 02:49 | External Medical Summary | Summary of Care ---
Author Name Unknown Organization [facility] Address [address] [facility] [place] [address] Phone [phone] Care Team Providers Care Agricultural Plow Operator Name Role Phone Jennifer Sarkar MD Primary Care Provider [phone] Reason for Visit * Reason Onset Date Comments Abnormal Test Results 03/15/2024 Vit D Encounter Details Date Type Department Care Team (Late st Contact Info) Description 03/15/2024 Telephone Rheumatology [facility] [address] [place] [phone] Meryl Santiago CRNP [address] [facility] [address] Abnormal Test Results (Vit D) Allergies Active Allergy Reactions Criticality Noted Date Comments Food (See Comments) 03/21/2018 Other reaction(s): WAS TOLD NOT TO TAKE grapefruit Tramadol Other (Please comment) High 10/06/2020 Hallucinations documented as of this encounter (statuses as of 04/20/2024) Medications NITROGLYCERIN 0.4 MG SL SUBLIndications:Ol d [...] Active Additional Information Patient taking differently:1,000 mg WpnxZ5P PRN, ,may take 3rd dose in between [...] BEDTIME 90 Capsule 1 024 04/12 Discontinued Meclizine HCl 12.5 MG Oral Tablet [...] and draped in usual sterile manner. 14 Bahraini flexible cystoscope inserted into urethra and guided [...] mRNA, LNP-s, No Pre serve, 2-Dose Series ([employer]) 05/14/2020,04/18/2020 Covid-19, Mrna, Lnp-s, Pf, B ivalent, [...] Industry Job Start Date Job End Date [employer] Not on file Not on file [...] unable to get Prolia due to the hhw-zw-jdzyow cost. Advised me to contact his daughter to discuss Prolia further. documented in this encounter Plan of Treatment Upcoming Encounters Date Type Department Care Team (Late st Contact Info) Description 05/14/2024 12:00 PM EDT Office Visit Pulmonary Medicine, [facility] 132 [facility] [place] [address] Bashir Harding MD [facility] [address] [facility] [place] [address] 06/07/2024 2:00 PM EDT Office Visit Dermatology, [address] [place] [phone] Gypsy Mujica PA-C [address] [place] [address] [place] [address] 06/19/2024 10:30 AM EDT Office Visit Orthopaedics [facility] [address] [place] [phone] Ely Cabrales MD [address] [place] [phone] 07/11/2024 3:00 PM EDT Office Visit General Internal Medicine [facility] 200 [facility] [place] [address] Jennifer Sarkar MD 200 [facility] [place] [address] Scheduled Procedures Name Priority Associated Diagnoses Date/Ti [...] D LEVEL ONCE IN A LIFETIME-USE SMARTSET# [id number] Completed 03/14/2024, 10/20/2023, 08/17/2023, Additional history exists [...] this encounter Medical Devices Implanted Type Area Quality Process Auditor Device Identifier Shelf Expiration Date Model / Serial / Lot Lens Intraoc 23.0 - [id number] - [id number] Implanted:Qty: 1 on 12/21/2016 by Raj Bernard MD at OR [facility] Left: Eye BAUSCH & LOMB 06/20/2021 [id number] / [id number] / Lens Intraoc 22.0 - [id number] - [id number] Implanted:Qty: 1 on 01/06/2017 by Raj Bernard MD at OR [facility] Right: Eye BAUSCH & LOMB 08/20/2021 [id number] / [id number] / [id number] documented as of this encounter Advance Directives [...] Power of Attor bj? No Care Teams Agricultural Plow Operator Relationship Specialty Start Date End Date Jennifer Sarkar MD 200 [place] [address] PCP - General Internal Medicine 10/06/20 documented as of this encounter
--- OUTSIDE RECORDS SUMMARY | 2024-05-28 02:49 | External Medical Summary | Summary of Care ---
Author Name Unknown Organization [facility] Address [address] [facility] [place] [address] Phone [phone] Care Team Providers Care Marketing Information Coordinator Name Role Phone Jennifer Sarkar MD Primary Care Provider [phone] Reason for Visit * Reason Comments eRx-Medication Refill Encounter Details Date Type Department Care Team (Late st Contact Info) Description 04/22/2024 Refill General Internal Medicine [address] [place] [address] Jennifer Sarkar MD 200 [facility] [place] [address] Allergies Active Allergy Reactions Criticality Noted Date Comments Food (See Comments) 03/21/2018 Other reaction(s): WAS TOLD NOT TO TAKE grapefruit Tramadol Other (Please comment) High 10/06/2020 Hallucinations documented as of this encounter (statuses as of 04/24/2024) Medications NITROGLYCERIN 0.4 MG SL SUBLIndications:Ol d [...] Active Additional Information Patient taking differently:1,000 mg PtdsJ2D PRN, ,may take 3rd dose in between [...] Oral Tablet (Lasix)Indications :Coronary artery disease involving [place] coronary artery of [place] heart without angina pectoris,Chronic right-sided heart failure [...] FOR DEPRESSION 90 Tablet 1 025 Active Citalopram Hydrobromide 20 MG Oral Tablet (CeleXA) TAKE 1 TABLET BY MOUTH EVERY DAY FOR DEPRESSION 90 Tablet 1 024 04/24 Discontinued documented as of this encounter (statuses as of 04/24/2024) Active Problems Problem Noted Date Diagnosed Date Calculus of kidney 04/18/2024 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 Hypercalcemia 12/03/2022 Supplemental oxygen dependent 05/06/2022 Nasal septal perforation 05/06/2022 Chronic respiratory failure with hypoxia 022 Granulomatous lung disease 09/18/2021 Chronic rhinitis 06/10/2021 Schatzki's ring of distal esophagus 06/10/2021 Chronic right-sided heart failure 04/08/2020 Coronary artery disease invo lving [place] coronary artery of [place] heart without angina pectoris 11/21/2018 Abnormality of [...] as of this encounter (statuses as of 04/24/2024) Resolved Problems Problem Noted Date Diagnosed Date [...] and draped in usual sterile manner. 14 Montserratian flexible cystoscope inserted into urethra and guided into bladder under direct vision. Findings :normal bladder mucosa, normal anatomical position of ureteral orifices.Ureteral stent removed completely Calculus of ureter 04/01/2005 8 ADVANCE DIRECTIVE INFORMATION 07/27/2004 07/21/2016 Overview (07/27/2004): Patient does not have an advanced directive. Patient given information booklet. Bacterial pneumonia 07/31/2002 09/17/19 16 Depression with anxiety 11/18/2000 10/0 02/2017 HYPERTENSION NOS 01/13/2009 Overview (01/13/2009): Modified per [facility] protocol #16. Screening for prostate cancer 01/03/2007 Asthma, allergic 04/22/2009 Osteoporosis 02/24/2017 documented as of this encounter (statuses as of 04/24/2024) Immunizations Name Administration Dates Next Due COVID-19 mRNA, LNP-s, No Pre serve, 2-Dose Series ([employer]) 05/14/2020,04/18/2020 Covid-19, Mrna, Lnp-s, Pf, B ivalent, [...] Industry Job Start Date Job End Date [employer] Not on file Not on file Not on file documented as of this encounter Miscellaneous Notes * Telephone Encounter - John Ascencio, [facility] - 04/24/2024 7:38 AM ESTSigned Prescriptions: Disp Refills Citalopram Hydrobromide 20 MG Oral Tablet *90 Tab*1 Sig: TAKE 1 TABLET BY MOUTH EVERY DAY FOR DEPRESSIONAuthorizing Provider: Tabitha SARKAR User: JOHN WHITTINGTON documented in this encounter Plan of Treatment Upcoming Encounters Date Type Department Care Team (Late st Contact Info) Description 05/14/2024 12:00 PM EDT Office Visit Pulmonary Medicine, [facility] [address] [place] [address] Bashir Harding MD [address] [place] [address] 06/07/2024 2:00 PM EDT [facility] [place] [facility] [place] [phone] Gypsy Mujica PA-C [address] [place] [address] [place] [address] 06/19/2024 10:30 AM EDT Office Visit Orthopaedics [facility] [address] [place] [phone] Ely Cabrales MD [address] [place] [phone] 07/11/2024 3:00 PM EDT Office Visit General Internal Medicine [facility] [place] 200 [facility] [place] [address] Jennifer Sarkar MD 200 [facility] [place] [address] Scheduled Procedures Name Priority Associated Diagnoses Date/Ti [...] D LEVEL ONCE IN A LIFETIME-USE SMARTSET# [id number] Completed 03/14/2024, 10/20/2023, 08/17/2023, Additional history exists [...] this encounter Medical Devices Implanted Type Area Neonatal Doctor Device Identifier Shelf Expiration Date Model / Serial / Lot Lens Intraoc 23.0 - [id number] - [id number] Implanted:Qty: 1 on 12/21/2016 by Raj Bernard MD at OR [facility] Left: Eye BAUSCH & LOMB 06/20/2021 [id number] / [id number] / Lens Intraoc 22.0 - [id number] - [id number] Implanted:Qty: 1 on 01/06/2017 by Raj Bernard MD at OR [facility] Right: Eye BAUSCH & LOMB 08/20/2021 [id number] / [id number] / [id number] documented as of this encounter Advance Directives [...] Power of Attor bj? No Care Teams Marketing Information Coordinator Relationship Specialty Start Date End Date Jennifer Sarkar MD 200 [place] [address] PCP - General Internal Medicine 10/06/20 documented as of this encounter
--- OUTSIDE RECORDS SUMMARY | 2024-05-28 02:49 | External Medical Summary | Summary of Care ---
Author Name Unknown Organization [facility] Address [address] [facility] [place] [address] Phone [phone] Care Team Providers Care Planner Internship Name Role Phone Jennifer Sarkar MD Primary Care Provider [phone] Reason for Visit * Reason Onset Date Comments Abnormal Test Results 03/15/2024 Vit D Encounter Details Date Type Department Care Team (Late st Contact Info) Description 03/15/2024 Telephone Rheumatology [facility] [address] [place] [phone] [facility]yl Santiago [facility] [address] [facility] [address] Abnormal Test Results (Vit D) [...] Active Additional Information Patient taking differently:1,000 mg BuatC8A PRN, ,may take 3rd dose in between [...] failure 04/08/2020 Coronary artery disease invo lving agdaagux coronary artery of agdaagux heart without angina pectoris 11/21/2018 Abnormality of [...] HYPERTENSION NOS 01/13/2009 Overview (01/13/2009): Modified per [facility] protocol #16. Screening for prostate cancer 01/03/2007 Asthma, allergic 04/22/2009 Osteoporosis 02/24/2017 documented as of this encounter (statuses as of 04/26/2024) Immunizations Name Administration Dates Next Due COVID-19 mRNA, LNP-s, No Pre serve, 2-Dose Series (Arkmicro) 05/14/2020,04/18/2020 Covid-19, Mrna, Lnp-s, Pf, B ivalent, [...] Industry Job Start Date Job End Date [employer] Not on file Not on file [...] unable to get Prolia due to the xld-vu-opccpt cost. Advised me to contact his daughter to discuss Prolia further. documented in this encounter Plan of Treatment Upcoming Encounters Date Type Department Care Team (Late st Contact Info) Description 05/14/2024 12:00 PM EDT Office Visit Pulmonary Medicine, [facility] [address] [facility] [place] [address] Bashir Harding MD [address] [facility] [address] 05/28/2024 3:00 PM EDT Office Visit Cardiology, [place] [address] [place] [address] Krystal Wilson CRNP [address] [facility] [place], [place] [id number] 06/07/2024 2:00 PM EDT Office Visit [facility]atology, [facility] [address] [facility] [phone] Gypsy Mujica PA-C [address] [place] [address] [place] [address] 06/19/2024 10:30 AM EDT Office Visit Orthopaedics [facility] [address] [place] [phone] Ely Cabrales MD [address] [place] [phone] 07/11/2024 3:00 PM EDT Office Visit General Internal Medicine [facility] [address] [facility] [place] [address] Jennifer Sarkar MD [address] [facility] [place] [address] Scheduled Procedures Name Priority Associated Diagnoses Date/Ti [...] D LEVEL ONCE IN A LIFETIME-USE SMARTSET# [id number] Completed 03/14/2024, 10/20/2023, 08/17/2023, Additional history exists [...] this encounter Medical Devices Implanted Type Area Servicer Travel Trailers Device Identifier Shelf Expiration Date Model / Serial / Lot Lens Intraoc 23.0 - [id number] - [id number] Implanted:Qty: 1 on 12/21/2016 by Raj Bernard MD at OR [facility] Left: Eye [employer] 06/20/2021 [id number] / [id number] / Lens Intraoc 22.0 - [id number] - [id number] Implanted:Qty: 1 on 01/06/2017 by Raj Bernard MD at OR [facility] Right: Eye [employer] 08/20/2021 [id number] / [id number] / [id number] documented as of this encounter Advance Directives [...] Power of Attor bj? No Care Teams Planner Internship Relationship Specialty Start Date End Date Jennifer Sarkar MD [address] [place] [address], [place] [address] PCP - General Internal Medicine 10/06/20 documented as of this encounter
--- NOTE | 2024-05-28 03:02 | Emergency Department Note ---
Impression & Plan Fall ADMIT ED Provider Note HPI: History obtained from patient. The patient is a 83-year-old gentleman with history of Parkinson disease, heart failure with preserved ejection fraction, chronic hypoxic respiratory failure on home oxygen, presents the emergency department with a chief complaint of ambulatory dysfunction with a fall out of his chair tonight. Patient states he was trying to get out of his chair to his walking cane and he lost his balance and fell. On arrival here to the ED the patient denies any focal complaint of pain, he states he was unable to get up under his own power and therefore contacted EMS for transport to the ED. On arrival here to the ED the patient is hemodynamically stable, he otherwise appears to be in no acute distress. ROS: - Per HPI Differential Diagnosis: Hip fracture, pelvic fracture, rib fractures, pneumothorax, hemothorax, intracranial injury to include subdural hematoma, epidural hematoma, chronic physical deconditioning, chronic ambulatory dysfunction, amongst other potential pathologies. *Outpatient medications and allergy history reviewed. PE: General: Alert, frail-appearing, no acute distress HEENT: Normocephalic, trachea midline Eyes: Extraocular eye movement is intact, no scleral erythema Pulmonary: Clear to auscultation bilaterally, no wheezing Cardio: Regular rate and rhythm GI: Abdomen is soft to palpation : No suprapubic tenderness MSK: No evidence of trauma or malformation of the extremities, no edema, maintains flexion at the hips bilaterally Skin: No evidence of rash Neuro: Resting tremor of the bilateral upper extremities, otherwise alert, no focal deficits Psychiatric: Cooperative INDEPENDENT INTERPRETATIONS: media monitor: (As interpreted by myself): - An order was placed for continuous cardiac monitoring - Patient was noted to be in sinus rhythm with a rate of 68 EKG: (As interpreted by myself): Rate: 66 Rhythm: Normal sinus rhythm Intervals: Within normal limits ST changes: No ST elevation Time: 0247 Chest x-ray: (As interpreted by myself): Rib fractures or pneumothorax Medical Decision Making: IV was established and lab work obtained, patient was placed on media monitor. Lab work shows a nonspecific leukocytosis of 14.75, hemoglobin is normal, platelet count is normal, CMP does not show any evidence of any critical findings. Urinalysis is nonspecific, 1+ leukocyte Esterase with moderate pyuria as well as evidence of contamination with epithelial cells. X-ray imaging of the chest per my interpretation does not show any evidence of rib fractures or pneumothorax. X-ray imaging of the pelvis does not show any evidence of any grossly displaced fractures. Patient does maintain flexion at the hips bilaterally, low suspicion for acute fracture. CT imaging of the head does not show any evidence of any acute intracranial process. On my reassessment the patient is resting in bed, he is very tremulous at times with his Parkinson, he has chronic ambulatory dysfunction and he states that he fell out of his chair tonight when he was trying to get to his walking cane. I discussed the patient's presentation as well as his imaging and lab work findings with his daughter, Ciara, over the phone. She states at this time she would be in agreement for the patient to be placed for inpatient rehabilitation or possibly long term placement. I discussed this with the patient and he was also in agreement. Case was then discussed with the on-call hospitalist, Dr. Aguila, and the patient was placed for admission in stable condition. Consultants/Discussions held with other healthcare providers: -Hospitalist, Dr. Aguila Disposition discussion held by myself with: -Patient and patient's daughter over the phone Diagnosis: 1. Ambulatory dysfunction, acute on chronic 2. Mechanical fall, acute 3. History of Parkinson disease 4. History of chronic respiratory failure, on home oxygen 5. Leukocytosis, acute, nonspecific Disposition: Admission Job Giron DO Emergency Medicine Past Med/Surg History Problem List (Updated 05/28/24 @ 04:55 by Job Giron DO) Fall (Acute) (HFpEF) heart failure with preserved ejection fraction BPH (benign prostatic hyperplasia) Ambulatory dysfunction (Acute) Weakness (Acute) Back pain Chronic respiratory failure (Acute) Dizziness (Acute) Fall (Acute) Kidney stones ONE PRESENT/NO PROBLEMS WITH Hematuria Ambulatory dysfunction (Acute) Chronic hypoxic respiratory failure, on home oxygen therapy (Acute) Fall (Acute) Dizziness (Acute) Leukocytosis (Acute) Ambulatory dysfunction (Acute) Generalized weakness (Acute) COPD (chronic obstructive pulmonary disease) (Acute) Physical deconditioning (Acute) Dependence on supplemental oxygen (Acute) Fall Elevated hemidiaphragm Pneumonia Scoliosis (Acute) Right heart failure Hypokalemia Acute and chronic respiratory failure Chronic obstructive pulmonary disease Depression Hyperlipidemia Hypertension Shortness of breath (Acute) Pulmonary edema (Acute) Acute exacerbation of CHF (congestive heart failure) (Acute) Encounter for pre-operative examination Spinal stenosis (Chronic) Encounter for pre-operative examination Acute respiratory failure (Acute) Shortness of breath Leukocytosis Aspiration into airway Medical History Bilateral shoulder pain Fall Restrictive lung disease Acute on chronic respiratory failure with hypoxemia Acute and chronic respiratory failure with hypercapnia Pulmonary embolism COVID-19 Choking REASON FOR UPCOMING PROCEDURE PER PT Ankle swelling PT PLANS TO DISCUSS WITH DR PT REPORTS DR HAD HIM STOP FLUID PILL AND NOT SURE WHY Infected dental caries Subperiosteal abscess of jaw Acute periodontal abscess Pain, dental Generalized muscle weakness Lower urinary tract symptoms (LUTS) Hypoxia DVT prophylaxis Chronic right-sided heart failure Fall HX, NOT RECENTLY Cervical spine fracture LAST SUMMER NO LIMITATIONS SOB (shortness of breath) on exertion with wheezing Scoliosis Chronic back pain GERD (gastroesophageal reflux disease) Hypothyroidism On anticoagulant therapy plavix daily 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 Myocardial Infarction 2009 Sleep apnea uses 4 L N/C MOSTLY ALL THE TIME On home oxygen therapy 3-4 L CONTINUOUS MOSTLY, AND PRN PER PT COPD (chronic obstructive pulmonary disease) Dyslipidemia HTN (hypertension) Hypothyroidism CAD (coronary artery disease) Surgical History Hx of oral surgery (07/05/21) Multiple Teeth Extractions for Facial Infection - Sin Chacko DMD NO CURRENT INFECTION PER PT (PAT CALL 08/18/21) History of testicular surgery "sac full of blood in testicle drained at 26 yrs old" History of heart artery stent x1 2009--[facility] [place] History of open reduction and internal fixation (ORIF) procedure left foot fx/pinky toe fx--hardware in place History of lithotripsy Hx of vasectomy Hx of right inguinal hernia repair History of colonoscopy History of esophagogastroduodenoscopy (EGD) History of wisdom tooth extraction History of tonsillectomy History of bilateral cataract extraction History of cardiac cath 2009 @ [facility] [place] with 1 stent--follows with Dr. James Vickersed coronary artery "bare metal stent to LAD 2008" Family History Sister Family history of reaction to anesthesia nausea/vomiting Mother Family history of diabetes mellitus Social History Smoking Status: Never smoker Tobacco Type: Pipe and Cigars Cigarettes Per Day: SMOKED PIPE/CIGAR AGE 21'S; Second Hand Exposure: No; Do You Dip or Chew Tobacco: No; Hx Alcohol Use: Yes Alcohol type: beer Hx Substance Use: No Preferred Language: Uzbek Communication Ability: Effective Communication Tools: Other Visual Impairment: No Limitations Coin Machine Supervisor Required: No marital status: Current Living Situation: Alone Current Living Situation Comment: DOG How many Children do You have: 1 Feels Safe at Home: Yes Assistive Devices: Cane, Oxygen - Continuous and Walker Allergies Allergies Allergy/AdvReac Type Severity Reaction Status Date / Time tramadol AdvReac Intermediate Hallucinati Verified 03/12/23 02:38 ng grapefruit AdvReac Unknown WAS TOLD Verified 03/12/23 02:38 NOT TO TAKE BECAUSE OF CHOLESTROL PILL. Home Meds Home Medications Medication Instructions Recorded Confirmed allopurinol 100 mg tablet 200 mg PO 1XD 04/20/24 04/20/24 citalopram 20 mg tablet 20 mg PO 1XD 04/20/24 04/20/24 clopidogrel 75 mg tablet (Plavix) 75 mg PO 1XD 04/20/24 04/20/24 duloxetine 60 mg capsule,delayed 60 mg PO 1XD 04/20/24 04/20/24 release dutasteride 0.5 mg capsule 0.5 mg PO 1XD 04/20/24 04/20/24 solifenacin 5 mg tablet 5 mg PO 1XD 04/20/24 04/20/24 spironolactone 25 mg tablet See Rx Instructions .Route .COMPLEX 04/20/24 04/20/24 Previous Rx's Medication Instructions Recorded acetaminophen 500 mg tablet 1,000 mg (2 x 500 mg) PO Q8H PRN 07/13/23 (Tylenol Extra Strength) fever or pain #90 tabs levothyroxine 112 mcg tablet 112 mcg PO DAILYBB #30 tabs 07/13/23 montelukast 10 mg tablet 10 mg PO QAM #30 tabs 07/13/23 (Singulair) pantoprazole 20 mg tablet,delayed 20 mg PO DAILYBB #30 tabs 07/13/23 release propranolol 20 mg tablet 20 mg PO TID #90 tabs 07/13/23 rosuvastatin 5 mg tablet 5 mg PO QAM #30 tabs 07/13/23 tamsulosin 0.4 mg capsule 0.4 mg PO HS #30 caps 07/13/23 furosemide 40 mg tablet 40 mg PO DAILY #30 tabs 04/26/24 Results & Data (ED) Vital Signs Vital Signs - 24 hr 05/28/24 02:49 05/28/24 02:54 05/28/24 02:59 Temperature 36.8 C Temperature Source Oral Pulse Rate 65 80 Pulse Rhythm Regular Pulse Strength Normal Respiratory Rate 21 Respiratory Effort / Characteristics Non-Labored Spontaneous Respiratory Depth Normal Blood Pressure 112/70 Blood Pressure Mean 84 Blood Pressure Position Lying Pulse Oximetry 93 91 Oxygen Delivery Method Nasal Cannula Nasal Cannula Oxygen Flow Rate 4 3 Sepsis Recent Fever Within 48 Hours No Sepsis New/Unexplained Change in Mental Status N/A Sepsis Action Taken by Nursing No Action Required Laboratory Data 05/28/24 02:50 05/28/24 02:50 Lab Results 05/28/24 05/28/24 Range/Units 02:50 03:58 WBC 14.75 H (4.8-10.8) K/ul RBC 4.63 L (4.70-6.10) M/uL Hgb 14.4 (14.0-18.0) g/dl Hct 43.4 (42.0-52.0) % MCV 93.7 (80.0-100.0) fL MCH 31.1 (25.0-34.0) pg MCHC 33.2 (32.0-36.0) g/dL RDW Std Deviation 49.5 H (36.4-46.3) fL RDW Coeff of Mannie 14.6 H (11.5-14.5) % Plt Count 205 (130-400) K/uL MPV 9.9 (9.4-12.4) fL Immature Gran % (Auto) 1.0 % Neut % (Auto) 66.2 % Lymph % (Auto) 19.3 % Dale % (Auto) 10.9 % Eos % (Auto) 2.2 % Baso % (Auto) 0.4 % Neut # (Auto) 9.76 H (1.40-6.50) K/uL Lymph # (Auto) 2.85 (1.20-3.40) K/uL Dale # (Auto) 1.61 H (0.11-0.59) K/uL Eos # (Auto) 0.32 (0.00-0.50) K/uL Baso # (Auto) 0.06 (0.00-0.20) K/uL Immature Gran # (Auto) 0.15 (0.01-0.20) K/uL Sodium 138 (136-145) mmol/L Potassium 4.0 (3.5-5.1) mmol/L Chloride 94 L (98-107) mmol/L Carbon Dioxide 39 H (21-32) mmol/L Anion Gap 5 (3-11) BUN 9 (6-23) mg/dl Creatinine 0.97 (0.6-1.4) mg/dl Est Cr Clr Drug Dosing 51.1 ml/min eGFR 77.94 BUN/Creatinine Ratio 9.3 L (10-20) Glucose 120 H (70-99(Fasting)) mg/dl Calcium 10.2 (8.6-10.3) mg/dl Total Bilirubin 0.8 (0.2-1.0) mg/dl AST 15 (13-39) U/L ALT 9 (7-52) U/L Alkaline Phosphatase 104 (34-104) U/L Total Protein 7.4 (6.0-8.3) gm/dl Albumin 4.5 (3.4-5.0) gm/dl Globulin 2.9 (2.5-4.0) gm/dl Albumin/Globulin Ratio 1.6 (0.9-2) Urine Color Yellow Urine Appearance Clear (Clear) Urine pH 6.5 (4.5-7.5) Ur Specific Clyde 1.017 (1.000-1.030) Urine Protein 1+ H (Negative) Urine Glucose (UA) Negative (Negative) Urine Ketones Negative (Negative) Urine Blood 1+ H (Negative) Urine Nitrite Negative (Negative) Urine Bilirubin Negative (Negative) Urine Urobilinogen Negative (Negative) Ur Leukocyte Esterase 1+ H (Negative) Urine WBC (Auto) 11-20 H (0-5) /hpf Urine RBC (Auto) >20 H (0-2) /hpf U Hyaline Cast (Auto) 3-5 H (0-2) /lpf U Epithel Cells (Auto) 3-5 H (0-2) /hpf Urine Bacteria (Auto) None Seen (None Seen) Urine Mucus Present A (None Prsent) Imaging Data Radiologist's Impression: Head CT 05/28/24 02:59 EXAM: CT head/brain wo con CLINICAL HISTORY: fall TECHNIQUE: Multiple axial images are obtained from the skull base to the vertex without contrast. CT scan was performed according to ALARA (as low as reasonable achievable). 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 FINDINGS: There is cerebral atrophy. No evidence of space occupying lesion, hemorrhage, edema, mass effect, midline shift, extra axial collection, or hydrocephalus is noted. Basal cisterns are symmetric and normal in size and configuration. There are scattered periventricular hypodensities as can be seen with chronic microvascular ischemic changes. The henry-white matter differentiation is preserved. Ethmoid sinusitis. Rest of paranasal sinus and mastoid air cells are well aerated. Orbital contents are within normal limits. Bony structures are intact. IMPRESSION: 1. No evidence of acute intracranial abnormality is demonstrated. 2. Chronic microvascular ischemic changes. 3. Cerebral atrophy. No other new interval abnormality since prior study. Electronically signed by Jaime Humphrey 05-28-2024 03:47 AM Discharge Plan Visit Data Chief Complaint: Fall Stated Complaint: FALL, DIZZY, SHAKY ED Provider: Job Giron Discharge Problem: Fall Forms Stand Alone Forms: My [facility] [place] Prescriptions Prescriptions: No Action acetaminophen [Tylenol Extra Strength] 500 mg Tablet 1,000 mg PO Q8H PRN (Reason: fever or pain) Qty: 90 0RF pantoprazole 20 mg tablet,delayed release (DR/EC) 20 mg PO DAILYBB Qty: 30 0RF tamsulosin 0.4 mg capsule 0.4 mg PO HS Qty: 30 0RF montelukast [Singulair] 10 mg Tablet 10 mg PO QAM Qty: 30 0RF propranolol 20 mg Tablet 20 mg PO TID Qty: 90 0RF levothyroxine 112 mcg tablet 112 mcg PO DAILYBB Qty: 30 0RF rosuvastatin 5 mg tablet 5 mg PO QAM Qty: 30 0RF clopidogrel [Plavix] 75 mg tablet 75 mg PO 1XD allopurinol 100 mg tablet 200 mg PO 1XD spironolactone 25 mg tablet See Rx Instructions .ROUTE .COMPLEX Rx Instructions: 12.5 mg orally TAKE 1/2 TABLET BY MOUTH ONCE A DAY ON TUESDAY, TUESDAY, AND TUESDAY ONLY citalopram 20 mg tablet 20 mg PO 1XD dutasteride 0.5 mg capsule 0.5 mg PO 1XD duloxetine 60 mg capsule,delayed release(DR/EC) 60 mg PO 1XD solifenacin 5 mg tablet 5 mg PO 1XD furosemide 40 mg Tablet 40 mg PO DAILY Qty: 30 0RF Referrals Referrals: Jennifer Sarkar MD [Primary Care Provider] -
[2024-05-28 03:11] LABS: Basophils # (auto) 0.06 K/uL (0.00-0.20); Basophils % (auto) 0.4 %; Eosinophils # (auto) 0.32 K/uL (0.00-0.50); Eosinophils % (auto) 2.2 %; Hematocrit (blood only) 43.4 % (42.0-52.0); Hemoglobin 14.4 g/dl (14.0-18.0); Immature Granulocytes # (auto) 0.15 K/uL (0.01-0.20); Lymphocytes # (auto) 2.85 K/uL (1.20-3.40); Lymphocytes % (auto) 19.3 %; Mean Corpuscular Hemoglobin 31.1 pg (25.0-34.0); Mean Corpuscular Hgb Conc 33.2 g/dL (32.0-36.0); Mean Corpuscular Volume 93.7 fL (80.0-100.0); Mean Platelet Volume 9.9 fL (9.4-12.4); Monocytes # (auto) 1.61 K/uL (0.11-0.59); Monocytes % (auto) 10.9 %; Neutrophils # (auto) 9.76 K/uL (1.40-6.50); Neutrophils % (auto) 66.2 %; Platelet Count 205 K/uL (130-400); RDW Coefficient of Variation 14.6 % (11.5-14.5); RDW Standard Deviation 49.5 fL (36.4-46.3); Red Blood Count 4.63 M/uL (4.70-6.10); White Blood Count 14.75 K/ul (4.8-10.8)
[2024-05-28 03:29] LABS: Albumin Globulin Ratio 1.6 (0.9-2); Albumin Level 4.5 gm/dl (3.4-5.0); BUN Creatinine Ratio 9.3 (10-20); Bilirubin,Total 0.8 mg/dl (0.2-1.0); Calcium 10.2 mg/dl (8.6-10.3); Creatinine Clr Calc Pharmacy 51.1 ml/min; Globulin 2.9 gm/dl (2.5-4.0); Total Protein 7.4 gm/dl (6.0-8.3)
--- NOTE | 2024-05-28 03:47 | CT Scan Report ---
EXAM: CT head/brain wo con CLINICAL HISTORY: fall TECHNIQUE: Multiple axial images are obtained from the skull base to the vertex without contrast. CT scan was performed according to ALARA (as low as reasonable achievable). 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 FINDINGS: There is cerebral atrophy. No evidence of space occupying lesion, hemorrhage, edema, mass effect, midline shift, extra axial collection, or hydrocephalus is noted. Basal cisterns are symmetric and normal in size and configuration. There are scattered periventricular hypodensities as can be seen with chronic microvascular ischemic changes. The henry-white matter differentiation is preserved. Ethmoid sinusitis. Rest of paranasal sinus and mastoid air cells are well aerated. Orbital contents are within normal limits. Bony structures are intact. IMPRESSION: 1. No evidence of acute intracranial abnormality is demonstrated. 2. Chronic microvascular ischemic changes. 3. Cerebral atrophy. No other new interval abnormality since prior study. Electronically signed by Jaime Humphrey 05-28-2024 03:47 AM
[2024-05-28 04:30] LABS: Appearance Urine Clear (Clear); Bacteria Urine Automated None Seen (None Seen); Bilirubin Urine Negative (Negative); Blood Urine 1+ (Negative); Color Urine Yellow; Glucose Urine UA Negative (Negative); Ketones Urine Negative (Negative); Leukocyte Esterase Urine 1+ (Negative); Mucus Urine Present (None Prsent); Nitrite Urine Negative (Negative); Protein Urine 1+ (Negative); RBC Urine Automated >20 /hpf (0-2); Specific Gravity Urine 1.017 (1.000-1.030); Urobilinogen Urine Negative (Negative); pH Urine 6.5 (4.5-7.5)
--- NOTE | 2024-05-28 05:09 | History & Physical Report ---
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 History of chronic right-sided heart failure, EZEQUIEL (CPAP intolerance), nocturnal hypoxemia nasal cannula at night pulmonary congestion on imaging Complicated UTI, history of BPH, no sepsis for now history mild MR CAD status post stenting HTN, stable hypothyroidism, euthyroid as of last month's TSH chronic anemia, hemoglobin at baseline essential tremors on propranolol Hyperglycemia likely prediabetes, hemoglobin A1c of 6 from December 2023 Ambulatory dysfunction/functional disability past tobacco abuse Admit to med/tele Supplemental O2 Baseline VBG Lasix IV 1 dose now followed by patient home diuretic regimen Urine CS, Zosyn (history of Enterococcus on past outpatient urine CS) PT OT eval Social service re: placement, patient considering [facility] DVT prophylaxis. Lovenox subcu Full code Patient daughter requesting updates from providers. Ms. Ciara Mcgrath, contact #[phone]. Text document was generated using [employer] voice recognition software. It may contain grammatical or spelling errors. Kindly contact undersigned for clarification of any documentation item in question. History of Present Illness Chief Complaint: Fall Primary Care Provider: Jennifer Sarkar MD History obtained from patient and records. 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 Patient home oxycodone discontinued due to confusion. Patient discharged to [facility] for rehab where he stayed for 3 days. Few days history of dysuria symptoms without fever or chills. No hematuria. Patient slid off the chair and had had trouble getting up today. Denies head trauma, LOC. No chest pain. Usual SOB and cough symptoms. Patient denies weight gain. O2 sats 80s upon EMS arrival. MEDICAL HISTORY: As above. SURGERIES: Hernia surgery, foot surgery, ESWL, tonsillectomy, cataract s urgeries, urologic procedures FAMILY HISTORY: Lung cancer, DM PERSONAL SOCIAL HISTORY: Past tobacco use. 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 Home Medications Medication Instructions Recorded Confirmed Type acetaminophen 500 mg tablet 1,000 mg (2 x 500 mg) PO Q8H PRN 07/13/23 05/28/24 Rx (Tylenol Extra Strength) fever or pain #90 tabs levothyroxine 112 mcg tablet 112 mcg PO DAILYBB #30 tabs 07/13/23 05/28/24 Rx montelukast 10 mg tablet 10 mg PO QAM #30 tabs 07/13/23 05/28/24 Rx (Singulair) propranolol 20 mg tablet 20 mg PO TID #90 tabs 07/13/23 05/28/24 Rx rosuvastatin 5 mg tablet 5 mg PO QAM #30 tabs 07/13/23 05/28/24 Rx tamsulosin 0.4 mg capsule 0.4 mg PO HS #30 caps 07/13/23 05/28/24 Rx allopurinol 100 mg tablet 200 mg PO DAILY 04/20/24 05/28/24 History citalopram 20 mg tablet 20 mg PO DAILY 04/20/24 05/28/24 History clopidogrel 75 mg tablet (Plavix) 75 mg PO DAILY 04/20/24 05/28/24 History duloxetine 60 mg capsule,delayed 60 mg PO DAILY 04/20/24 05/28/24 History release dutasteride 0.5 mg capsule 0.5 mg PO DAILY 04/20/24 05/28/24 History solifenacin 5 mg tablet 5 mg PO DAILY 04/20/24 05/28/24 History spironolactone 25 mg tablet 25 mg PO DAILY 04/20/24 05/28/24 History albuterol sulfate 90 mcg/actuation 2 inh inhalation Q6 PRN Wheezing 05/28/24 05/28/24 History aerosol inhaler docusate sodium 100 mg capsule 100 mg PO HS 05/28/24 05/28/24 History furosemide 40 mg tablet 40 mg PO BID 05/28/24 05/28/24 History ipratropium 20 mcg-albuterol 100 1 puff inhalation TID 05/28/24 05/28/24 History mcg/actuation mist for inhalation (Combivent Respimat) pantoprazole 20 mg tablet,delayed 20 mg PO QAM 05/28/24 05/28/24 History release Past Med/Surg History Problem List (Updated 05/28/24 @ 04:55 by Job Giron, DO) Fall (Acute) (HFpEF) heart failure with preserved ejection fraction BPH (benign prostatic hyperplasia) Ambulatory dysfunction (Acute) Weakness (Acute) Back pain Chronic respiratory failure (Acute) Dizziness (Acute) Fall (Acute) Kidney stones ONE PRESENT/NO PROBLEMS WITH Hematuria Ambulatory dysfunction (Acute) Chronic hypoxic respiratory failure, on home oxygen therapy (Acute) Fall (Acute) Dizziness (Acute) Leukocytosis (Acute) Ambulatory dysfunction (Acute) Generalized weakness (Acute) COPD (chronic obstructive pulmonary disease) (Acute) Physical deconditioning (Acute) Dependence on supplemental oxygen (Acute) Fall Elevated hemidiaphragm Pneumonia Scoliosis (Acute) Right heart failure Hypokalemia Acute and chronic respiratory failure Chronic obstructive pulmonary disease Depression Hyperlipidemia Hypertension Shortness of breath (Acute) Pulmonary edema (Acute) Acute exacerbation of CHF (congestive heart failure) (Acute) Encounter for pre-operative examination Spinal stenosis (Chronic) Encounter for pre-operative examination Acute respiratory failure (Acute) Shortness of breath Leukocytosis Aspiration into airway Medical History Bilateral shoulder pain Fall Restrictive lung disease Acute on chronic respiratory failure with hypoxemia Acute and chronic respiratory failure with hypercapnia Pulmonary embolism COVID-19 Choking REASON FOR UPCOMING PROCEDURE PER PT Ankle swelling PT PLANS TO DISCUSS WITH PT REPORTS DR HAD HIM STOP FLUID PILL AND NOT SURE WHY Infected dental caries Subperiosteal abscess of jaw Acute periodontal abscess Pain, dental Generalized muscle weakness Lower urinary tract symptoms (LUTS) Hypoxia DVT prophylaxis Chronic right-sided heart failure Fall HX, NOT RECENTLY Cervical spine fracture LAST SUMMER NO LIMITATIONS SOB (shortness of breath) on exertion with wheezing Scoliosis Chronic back pain GERD (gastroesophageal reflux disease) Hypothyroidism On anticoagulant therapy plavix daily 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 Myocardial Infarction 2009 Sleep apnea uses 4 L N/C MOSTLY ALL THE TIME On home oxygen therapy 3-4 L CONTINUOUS MOSTLY, AND PRN PER PT COPD (chronic obstructive pulmonary disease) Dyslipidemia HTN (hypertension) Hypothyroidism CAD (coronary artery disease) Surgical History Hx of oral surgery (07/05/21) Multiple Teeth Extractions for Facial Infection - Sin Chacko, DMD NO CURRENT INFECTION PER PT (PAT CALL 08/18/21) History of testicular surgery "sac full of blood in testicle drained at 26 yrs old" History of heart artery stent x1 2009--[facility] [place] History of open reduction and internal fixation (ORIF) procedure left foot fx/pinky toe fx--hardware in place History of lithotripsy Hx of vasectomy Hx of right inguinal hernia repair History of colonoscopy History of esophagogastroduodenoscopy (EGD) History of wisdom tooth extraction History of tonsillectomy History of bilateral cataract extraction History of cardiac cath 2009 @ [facility] [place] with 1 stent--follows with Dr. Ramirez Stented coronary artery "bare metal stent to LAD 2008" Family History Sister Family history of reaction to anesthesia nausea/vomiting Mother Family history of diabetes mellitus Social History Smoking Status: Never smoker Tobacco Type: Pipe and Cigars Cigarettes Per Day: SMOKED PIPE/CIGAR AGE 21'S; Second Hand Exposure: No; Do You Dip or Chew Tobacco: No; Hx Alcohol Use: Yes Alcohol type: beer Hx Substance Use: No Preferred Language: Thai Communication Ability: Effective Communication Tools: Other Visual Impairment: No Limitations Doughnut Fryer Required: No marital status: Current Living Situation: Alone Current Living Situation Comment: DOG How many Children do You have: 1 Feels Safe at Home: Yes Assistive Devices: Cane, Oxygen - Continuous and Walker Review of Systems Review of Systems: As per HPI, all other systems reviewed and negative Physical Exam Physical Exam: GENERAL: Slightly anxious, episodic tachypnea SKIN: Normal color, warm HEENT: [place] palpebral conjunctivae, no ptosis, dry buccal mucosa, nasal cannula in place NECK : Supple, no tenderness CHEST : Decreased breath sounds, no wheezes, no tenderness HEART : RRR, no obvious murmurs ABDOMEN: Umbilical hernia, some distention, nontender EXTREMITIES : Minimal LE swelling, no LE tenderness, no other conspicuous deformities noted NEUROLOGIC : Coherent, no facial asymmetry, rest tremors, gait and stance not assessed Results & Data Results & Data Vital Signs (Past 12 Hours) Vital Signs Temp Pulse Resp BP Pulse Ox O2 Del Method O2 Flow Rate 05/28/24 02:59 91 Nasal Cannula 3 05/28/24 02:54 80 05/28/24 02:49 36.8 C 65 21 112/70 93 Nasal Cannula 4 Laboratory Results Laboratory Results WBC 14.75 K/ul (4.8-10.8) H 05/28/24 02:50 RBC 4.63 M/uL (4.70-6.10) L 05/28/24 02:50 Hgb 14.4 g/dl (14.0-18.0) 05/28/24 02:50 Hct 43.4 % (42.0-52.0) 05/28/24 02:50 MCV 93.7 fL (80.0-100.0) 05/28/24 02:50 MCH 31.1 pg (25.0-34.0) 05/28/24 02:50 MCHC 33.2 g/dL (32.0-36.0) 05/28/24 02:50 RDW Std Deviation 49.5 fL (36.4-46.3) H 05/28/24 02:50 RDW Coeff of Mannie 14.6 % (11.5-14.5) H 05/28/24 02:50 Plt Count 205 K/uL (130-400) 05/28/24 02:50 MPV 9.9 fL (9.4-12.4) 05/28/24 02:50 Immature Gran % (Auto) 1.0 % 05/28/24 02:50 Neut % (Auto) 66.2 % 05/28/24 02:50 Lymph % (Auto) 19.3 % 05/28/24 02:50 Pierce % (Auto) 10.9 % 05/28/24 02:50 Eos % (Auto) 2.2 % 05/28/24 02:50 Baso % (Auto) 0.4 % 05/28/24 02:50 Neut # (Auto) 9.76 K/uL (1.40-6.50) H 05/28/24 02:50 Lymph # (Auto) 2.85 K/uL (1.20-3.40) 05/28/24 02:50 Pierce # (Auto) 1.61 K/uL (0.11-0.59) H 05/28/24 02:50 Eos # (Auto) 0.32 K/uL (0.00-0.50) 05/28/24 02:50 Baso # (Auto) 0.06 K/uL (0.00-0.20) 05/28/24 02:50 Immature Gran # (Auto) 0.15 K/uL (0.01-0.20) 05/28/24 02:50 Sodium 138 mmol/L (136-145) 05/28/24 02:50 Potassium 4.0 mmol/L (3.5-5.1) 05/28/24 02:50 Chloride 94 mmol/L (98-107) L 05/28/24 02:50 Carbon Dioxide 39 mmol/L (21-32) H 05/28/24 02:50 Anion Gap 5 (3-11) 05/28/24 02:50 BUN 9 mg/dl (6-23) 05/28/24 02:50 Creatinine 0.97 mg/dl (0.6-1.4) 05/28/24 02:50 Est Cr Clr Drug Dosing 51.1 ml/min 05/28/24 02:50 eGFR 77.94 05/28/24 02:50 BUN/Creatinine Ratio 9.3 (10-20) L 05/28/24 02:50 Glucose 120 mg/dl (70-99(Fasting)) H 05/28/24 02:50 Calcium 10.2 mg/dl (8.6-10.3) 05/28/24 02:50 Total Bilirubin 0.8 mg/dl (0.2-1.0) 05/28/24 02:50 AST 15 U/L (13-39) 05/28/24 02:50 ALT 9 U/L (7-52) 05/28/24 02:50 Alkaline Phosphatase 104 U/L (34-104) 05/28/24 02:50 Total Protein 7.4 gm/dl (6.0-8.3) 05/28/24 02:50 Albumin 4.5 gm/dl (3.4-5.0) 05/28/24 02:50 Globulin 2.9 gm/dl (2.5-4.0) 05/28/24 02:50 Albumin/Globulin Ratio 1.6 (0.9-2) 05/28/24 02:50 Urine Color Yellow 05/28/24 03:58 Urine Appearance Clear (Clear) 05/28/24 03:58 Urine pH 6.5 (4.5-7.5) 05/28/24 03:58 Ur Specific [place] 1.017 (1.000-1.030) 05/28/24 03:58 Urine Protein 1+ (Negative) H 05/28/24 03:58 Urine Glucose (UA) Negative (Negative) 05/28/24 03:58 Urine Ketones Negative (Negative) 05/28/24 03:58 Urine Blood 1+ (Negative) H 05/28/24 03:58 Urine Nitrite Negative (Negative) 05/28/24 03:58 Urine Bilirubin Negative (Negative) 05/28/24 03:58 Urine Urobilinogen Negative (Negative) 05/28/24 03:58 Ur Leukocyte Esterase 1+ (Negative) H 05/28/24 03:58 Urine WBC (Auto) 11-20 /hpf (0-5) H 05/28/24 03:58 Urine RBC (Auto) >20 /hpf (0-2) H 05/28/24 03:58 U Hyaline Cast (Auto) 3-5 /lpf (0-2) H 05/28/24 03:58 U Epithel Cells (Auto) 3-5 /hpf (0-2) H 05/28/24 03:58 Urine Bacteria (Auto) None Seen (None Seen) 05/28/24 03:58 Urine Mucus Present (None Prsent) A 05/28/24 03:58 Impressions Chest X-Ray 05/28/24 02:59 EXAM: XR chest 1V portable CLINICAL HISTORY: Fall. TECHNIQUE: An X-ray image of the chest is obtained in AP projection. COMPARISON: 04/20/2024 CR. FINDINGS: Prominent bilateral bronchovasular shadows. Unchanged. Elevated right hemidiaphragm with blunting of right costophrenic angle. Unchanged. A small nodule in the right lower zone. Unchanged. Bulky right hilar shadow. Unchanged. Mild cardiomegaly. Unchanged. Rest no lung infiltrates. No acute osseous abnormality. IMPRESSION: 1. No evidence of pneumothorax. 2. Redemonstration of cardiomegaly with hilar congestion. 3. There is an unchanged small nodule in the right lower zone. 4. Unchanged elevation of right hemidiaphragm. 5. No interval change compared with the previous study. Electronically signed by Antwan Danielle 05-28-2024 05:[address] 05/28/24 02:59 EXAM: CT head/brain wo con CLINICAL HISTORY: fall TECHNIQUE: Multiple axial images are obtained from the skull base to the vertex without contrast. CT scan was performed according to ALARA (as low as reasonable achievable). COMPARISON: DEC 2505/2023 00:04:18 BLOCK CUTTER. FINDINGS: There is cerebral atrophy. No evidence of space occupying lesion, hemorrhage, edema, mass effect, midline shift, extra axial collection, or hydrocephalus is noted. Basal cisterns are symmetric and normal in size and configuration. There are scattered periventricular hypodensities as can be seen with chronic microvascular ischemic changes. The henry-white matter differentiation is preserved. Ethmoid sinusitis. Rest of paranasal sinus and mastoid air cells are well aerated. Orbital contents are within normal limits. Bony structures are intact. IMPRESSION: 1. No evidence of acute intracranial abnormality is demonstrated. 2. Chronic microvascular ischemic changes. 3. Cerebral atrophy. No other new interval abnormality since prior study. Electronically signed by Jaime Humphrey 05-28-2024 03:47 AM Diagnostic Findings EKG as per my interpretation :Rate 65, NSR, normal axis, septal infarct, no ischemia
--- NOTE | 2024-05-28 05:14 | XRay Report ---
EXAM: XR hip JOSÉ MIGUEL 2v w pelvis CLINICAL HISTORY: Fall. TECHNIQUE: X-ray images of both the hip joints and pelvis were obtained in anteroposterior (AP) projections. COMPARISON: No prior studies available for comparison. FINDINGS: Pelvic Bones: No evidence of fractures, dislocations, or significant osseous lesions. Acetabular structures appear normal and intact. No signs of acetabular fracture or dysplasia. Femoral heads are normal and centered within the acetabulum. No evidence of fractures, avascular necrosis, or significant deformities. Hip Joints: Bilateral hip osteoarthritic changes. No evidence of hip dislocation or subluxation. Bilateral degenerative chronic sacroiliitis. Symphysis Pubis: Symphysis pubis is normal and intact. No evidence of separation or widening. Soft Tissues: Visualized soft tissues are normal and unremarkable. No soft tissue swelling, calcifications, or masses. Pelvic pheliboli are seen. Additional Findings: No other significant abnormalities were noted. IMPRESSION: 1. Bilateral hip joints osteoarthritis. 2. No evidence of acute fractures or dislocations. Disclaimer: A subtle bone abnormality or fracture may not be readily apparent on X-rays, thus, clinical correlation and further imaging,including follow-up CT, MRI, or follow-up X-rays are advised as needed. Electronically signed by Antwan Danielle 05-28-2024 05:13 AM
[2024-05-28] MEDS: PIPERACILLIN/TAZOBACTAM 4.5 GM/100 ML BAG IV STA (06:09)
[2024-05-28 06:14] LABS: Base Excess VBG 16.7 mEq/L; HCO3 VBG 43 mmol/L; Oxygen Saturation VBG < 60.0 %; PCO2 VBG 58 mmHg (38-50); PO2 VBG 26 mmHg; pH VBG 7.48 (7.36-7.41)
[2024-05-28] MEDS: FUROSEMIDE 40 MG/4 ML VIAL IV STA (07:29)
[2024-05-28] MEDS: LEVOTHYROXINE SODIUM 112 MCG TABLET PO SCH (07:29)
[2024-05-28] MEDS: allopurinoL 100 MG TAB PO SCH (08:49)
[2024-05-28] MEDS: PANTOprazole 40 MG TAB PO SCH (08:49)
[2024-05-28] MEDS: DULoxetine HCL 60 MG CAP PO SCH (08:49)
[2024-05-28] MEDS: CLOPIDOGREL BISULFATE 75 MG TAB PO SCH (08:49)
[2024-05-28] MEDS: MONTELUKAST SODIUM 10 MG TABLET PO SCH (08:49)
[2024-05-28] MEDS: CITALOPRAM 20 MG TAB PO SCH (08:49)
[2024-05-28] MEDS: PROPRANOLOL HCL 20 MG TAB PO SCH (08:49)
[2024-05-28] MEDS: FINASTERIDE 5 MG TAB PO SCH (08:50)
[2024-05-28] MEDS: OXYBUTYNIN CHLORIDE XL 5 MG TABCR PO SCH (08:50)
[2024-05-28] MEDS: ROSUVASTATIN CALCIUM 5 MG TAB PO SCH (08:50)
[2024-05-28] MEDS: ENOXAPARIN INJ 40 MG/0.4 ML SYR SQ SCH (08:50)
[2024-05-28] MEDS ORDERED: FUROSEMIDE 40 MG TAB PO SCH (09:00)
--- NOTE | 2024-05-28 11:01 | Electrocardiogram Report ---
Test Reason : Blood Pressure : */* mmHG Vent. Rate : 66 BPM Atrial Rate : 66 BPM P-R Int : 184 ms QRS Dur : 92 ms QT Int : 430 ms P-R-T Axes : 49 63 77 degrees QTcB Int : 450 ms Poor data quality, interpretation may be adversely affected Normal sinus rhythm Septal infarct (cited on or before 08-Dec-2022) Abnormal ECG When compared with ECG of 20-Apr-2024 01:14, No significant change was found Confirmed by Gaston Cannon ([id number]) on 05/28/2024 11:01:25 AM Referred By: REFERRED SELF Confirmed By: Gaston Cannon
[2024-05-28] MEDS: ADVANCED PROBIOTIC 625 MG CAPSULE PO SCH (11:18)
[2024-05-28] MEDS: IPRATROPIUM BROMIDE/ALBUTEROL respimat INH INH SCH (12:25)
[2024-05-28] MEDS: PIPERACILLIN/TAZOBACTAM 4.5 GM/100 ML BAG IV SCH (12:59)
[2024-05-28] MEDS ORDERED: Albuterol HFA 8 GM Inhaler (Combivent Respimat P&T Subs) INH SCH (13:00)
[2024-05-28] MEDS: Ipratropium HFA Inhaler (Combivent Respimat P&T Subs) INH SCH (13:15)
[2024-05-28] MEDS: Albuterol HFA 8 GM Inhaler (Combivent Respimat P&T Subs) INH SCH (13:15)
--- NOTE | 2024-05-28 14:51 | Communication Note ---
Date of Service: May 28, 2024 Patient is seen and examined at bedside. Chart reviewed. Was having OT evaluation during my encounter. States having lower back pain. Also reports mild dysuria. No other complaints today. On exam patient is elderly, frail, chronic tremor, no distress, normocephalic atraumatic, EOMI, decreased breath sounds, clear to auscultation, S1-S2, trace pedal edema, alert, awake, oriented, grossly no focal deficits. Patient had recurrent admissions. Chronic respiratory failure with hypoxia, oxygen dependency due to history of restrictive lung disease, granulomatous lung disease. No obvious signs of volume overload. Thought to have UTI, empirically on Zosyn. PT OT, fall precautions. May need permanent placement. Case management to help with disch arge planning.
[2024-05-28] MEDS: FUROSEMIDE 40 MG TAB PO SCH (16:33)
[2024-05-28] MEDS: TAMSULOSIN HCL 0.4 MG CAP PO SCH (20:31)
[2024-05-28] MEDS: DOCUSATE SODIUM 100 MG CAP PO SCH (20:40)
[2024-05-29 05:51] LABS: Basophils # (auto) 0.05 K/uL (0.00-0.20); Basophils % (auto) 0.4 %; Eosinophils # (auto) 0.33 K/uL (0.00-0.50); Eosinophils % (auto) 2.6 %; Hematocrit (blood only) 41.5 % (42.0-52.0); Hemoglobin 14.1 g/dl (14.0-18.0); Immature Granulocytes # (auto) 0.27 K/uL (0.01-0.20); Immature Granulocytes % (auto) 2.1 %; Lymphocytes # (auto) 2.24 K/uL (1.20-3.40); Lymphocytes % (auto) 17.5 %; Mean Corpuscular Hemoglobin 31.1 pg (25.0-34.0); Mean Corpuscular Volume 91.6 fL (80.0-100.0); Mean Platelet Volume 9.7 fL (9.4-12.4); Monocytes # (auto) 1.31 K/uL (0.11-0.59); Monocytes % (auto) 10.2 %; Neutrophils # (auto) 8.59 K/uL (1.40-6.50); Neutrophils % (auto) 67.2 %; Platelet Count 189 K/uL (130-400); RDW Coefficient of Variation 14.5 % (11.5-14.5); RDW Standard Deviation 48.7 fL (36.4-46.3); Red Blood Count 4.53 M/uL (4.70-6.10); White Blood Count 12.79 K/ul (4.8-10.8)
[2024-05-29 06:03] LABS: BUN Creatinine Ratio 11.5 (10-20); Creatinine Clr Calc Pharmacy 51.6 ml/min; Potassium 3.5 mmol/L (3.5-5.1)
[2024-05-29] MEDS ORDERED: PIPERACILLIN/TAZOBACTAM 4.5 GM/100 ML BAG IV SCH (12:00)
--- NOTE | 2024-05-29 16:10 | Hospitalist Progress Note ---
Date of Service May 29, 2024 Assessment & Plan (1) Acute and chronic respiratory failure: Plan: H/O Restrictive lung disease/granulomatous lung disease on home O2 History of chronic right-sided heart failure, EZEQUIEL (CPAP intolerance), nocturnal hypoxemia nasal cannula at night pulmonary congestion on imaging Feels a little better since admission and has been requiring 3 L to maintain saturation Ambulatory dysfunction/functional disability Will need PT and OT evaluation prior to discharge Complicated UTI, history of BPH, no sepsis for now history Has been started on intravenously Zosyn given the history of Enterococcus infection in the past Urine culture is negative so far Will continue current antibiotic and await CAD status post stenting Mild MR Remains stable without any cardiac symptoms HTN, stable Continue current medications Other significant medical conditions are as below and remained stable: Hypothyroidism, euthyroid as of last month's TSH Cchronic anemia, hemoglobin at baseline essential tremors on propranolol Hyperglycemia likely prediabetes, hemoglobin A1c of 6 from December 2023 Past tobacco abuse Social service re: placement, patient considering [facility] DVT prophylaxis. Lovenox subcu Full code Patient daughter requesting updates from providers. Ciara Alcides, contact #[phone]. Admission and Anticipated Discharge Date Admission Date: May 28, 2024 Subjective 05/29/2024 The patient was seen and examined in medical telemetry unit He has been feeling better since admission and denies any significant symptoms Review of Systems Review of Systems: All systems reviewed and are unremarkable except as noted below Physical Exam Physical Exam: Lying in bed without any acute distress Constitutional: well developed, well nourished, + ill appearing and average body habitus Eyes: PERRL, conjunctivae normal, anicteric sclerae ENMT: external ear and nose normal, oropharynx normal Neck: trachea midline, no thyromegaly Respiratory: no respiratory distress Auscultation: lungs clear to auscultation bilaterally Cardiovascular: Rate/Rhythm: regular rate and regular rhythm; not tachycardic Heart Sounds: normal S1 and normal S2; no murmur Extremities: no edema Gastrointestinal (Abdomen): Inspection/Auscultation: normal bowel sounds; abdomen not distended Percussion/Palpation: abdomen soft; abdomen nontender Musculoskeletal: No acute arthritis involving any of the joint Neurologic: normal touch/pain/proprioception and moves all extremities; no focal motor deficits Lymphatic: no cervical or axillary lymphadenopathy Results & Data Results & Data Vital Signs (Past 12 Hours) Vital Signs Temp Pulse Pulse Resp BP Pulse Ox O2 Del Method 05/29/24 15:24 37.1 C 77 18 147/96 H 97 Nasal Cannula 05/29/24 13:45 64 05/29/24 13:32 66 18 95 Nasal Cannula 05/29/24 11:30 36.5 C 68 20 125/79 92 Nasal Cannula 05/29/24 08:00 Nasal Cannula 05/29/24 07:43 37.5 C 70 20 104/60 87 L Nasal Cannula 05/29/24 07:34 73 17 Nasal Cannula 05/29/24 07:00 72 05/29/24 04:01 36.5 C 66 18 125/73 92 Nasal Cannula O2 Flow Rate 05/29/24 15:24 3 05/29/24 13:45 05/29/24 13:32 3 05/29/24 11:30 05/29/24 08:00 3 05/29/24 07:43 05/29/24 07:34 3 05/29/24 07:00 05/29/24 04:01 2 Laboratory Results Short CBC 05/29/24 Range/Units 05:23 WBC 12.79 H (4.8-10.8) K/ul Hgb 14.1 (14.0-18.0) g/dl Hct 41.5 L (42.0-52.0) % Plt Count 189 (130-400) K/uL BMP 05/29/24 05:23 Sodium 136 Potassium 3.5 Chloride 92 L Carbon Dioxide 40 H BUN 11 Creatinine 0.96 Glucose 116 H Calcium 10.0 Medications Administered Current Inpatient Medications Acetaminophen (Acetaminophen 325 Mg Tab) 650 mg PO QID PRN PRN Reason: pain/fever Stop: 06/27/24 06:07 Albuterol (Albuterol Hfa 8 Gm Inhaler (Combivent Respimat P&T Subs)) 1 puffs INH TIDR [facility]; Protocol Stop: 06/27/24 12:59 Last Admin: 05/29/24 13:31 Dose: 1 puffs Allopurinol (Allopurinol 100 Mg Tab) 200 mg PO DAILY SAHIL Stop: 06/27/24 08:59 Last Admin: 05/29/24 07:53 Dose: 200 mg Citalopram Hydrobromide (Citalopram 20 Mg Tab) 20 mg PO DAILY [facility] Stop: 06/27/24 08:59 Last Admin: 05/29/24 07:53 Dose: 20 mg Clopidogrel Bisulfate (Clopidogrel Bisulfate 75 Mg Tab) 75 mg PO DAILY [facility] Stop: 06/27/24 08:59 Last Admin: 05/29/24 07:54 Dose: 75 mg Docusate Sodium (Docusate Sodium 100 Mg Cap) 100 mg PO HS SAHIL Stop: 06/27/24 20:59 Last Admin: 05/28/24 20:40 Dose: 100 mg Duloxetine HCl (Duloxetine Hcl 60 Mg Cap) 60 mg PO DAILY SAHIL Stop: 06/27/24 08:59 Last Admin: 05/29/24 07:54 Dose: 60 mg Enoxaparin Sodium (Enoxaparin Inj 40 Mg/0.4 Ml Syr) 40 mg SQ QAM [facility] Stop: 06/27/24 08:59 Last Admin: 05/29/24 07:52 Dose: Not Given Finasteride (Finasteride 5 Mg Tab) 5 mg PO DAILY [facility] Stop: 06/27/24 08:59 Last Admin: 05/29/24 07:56 Dose: 5 mg Furosemide (Furosemide 40 Mg Tab) 40 mg PO BID17 SAHIL Stop: 06/27/24 16:59 Last Admin: 05/29/24 07:55 Dose: 40 mg Piperacillin Sod/Tazobactam Sod (Zosyn) 4.5 gm in 100 mls @ 25 mls/hr IV Q8H [facility]; Protocol Stop: 06/07/24 11:59 Last Infusion: 05/29/24 15:48 Dose: Infused Ipratropium [place] (Ipratropium Hfa Inhaler (Combivent Respimat P&T Subs)) 1 puffs INH TIDR [facility]; Protocol Stop: 06/27/24 12:59 Last Admin: 05/29/24 13:31 Dose: 1 puffs Lactobacillus Acidophilus (Advanced Probiotic 625 Mg Capsule) 1,250 mg PO DAILY [facility] Stop: 06/27/24 08:59 Last Admin: 05/29/24 07:56 Dose: 1,250 mg Levothyroxine Sodium (Levothyroxine Sodium 112 Mcg Tablet) 112 mcg PO DAILYBB [facility] Stop: 06/27/24 06:29 Last Admin: 05/29/24 06:08 Dose: 112 mcg Melatonin (Melatonin 3 Mg Tab) 3 mg PO HS PRN PRN Reason: Sleep Stop: 06/28/24 00:39 Montelukast Sodium (Montelukast Sodium 10 Mg Tablet) 10 mg PO QAM [facility] Stop: 06/27/24 08:59 Last Admin: 05/29/24 07:55 Dose: 10 mg Oxybutynin Chloride (Oxybutynin Chloride Xl 5 Mg Tabcr) 5 mg PO DAILY SAHIL Stop: 06/27/24 08:59 Last Admin: 05/29/24 07:55 Dose: 5 mg Pantoprazole Sodium (Pantoprazole 40 Mg Tab) 40 mg PO QAM [facility] Stop: 06/27/24 08:59 Last Admin: 05/29/24 07:56 Dose: 40 mg Propranolol HCl (Propranolol Hcl 20 Mg Tab) 20 mg PO TID SAHIL Stop: 06/27/24 08:59 Last Admin: 05/29/24 14:02 Dose: 20 mg Rosuvastatin Calcium (Rosuvastatin Calcium 5 Mg Tab) 5 mg PO QAM [facility] Stop: 06/27/24 08:59 Last Admin: 05/29/24 07:53 Dose: 5 mg Tamsulosin HCl (Tamsulosin Hcl 0.4 Mg Cap) 0.4 mg PO HS SAHIL Stop: 06/27/24 20:59 Last Admin: 05/28/24 20:31 Dose: 0.4 mg
[2024-05-29] MEDS: MELATONIN 3 MG TAB PO PRN (19:40)
--- NOTE | 2024-05-30 12:21 | Hospitalist Progress Note ---
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 History of chronic right-sided heart failure, EZEQUIEL (CPAP intolerance), nocturnal hypoxemia nasal cannula at night pulmonary congestion on imaging Feels a little better since admission and has been requiring 3 L to maintain saturation Ambulatory dysfunction/functional disability Will need PT and OT evaluation prior to discharge Essential tremors Has been bothering him very much Has been on propranolol 20 mg 3 times daily Will get PT and OT evaluation Complicated UTI, history of BPH, no sepsis for now history Has been started on intravenously Zosyn given the history of Enterococcus infection in the past Urine culture is negative so far Will continue current antibiotic and await Urine culture remains negative and blood cultures have been negative Will discontinue antibiotic tomorrow CAD status post stenting Mild MR Remains stable without any cardiac symptoms HTN, stable Continue current medications Other significant medical conditions are as below and remained stable: Hypothyroidism, euthyroid as of last month's TSH Cchronic anemia, hemoglobin at baseline essential tremors on propranolol Hyperglycemia likely prediabetes, hemoglobin A1c of 6 from December 2023 Past tobacco abuse Social service re: placement, patient considering [facility] DVT prophylaxis. Lovenox subcu Full code Patient daughter requesting updates from providers. Antonietta Ciara Mcgrath, contact #[phone]. Admission and Anticipated Discharge Date Admission Date: May 28, 2024 Subjective 05/29/2024 The patient was seen and examined in medical telemetry unit He has been feeling better since admission and denies any significant symptoms 05/30/2024 Patient was seen and examined in medical telemetry unit He remains stable but has significant tremors especially with activity and also difficulty in speech-chronic Denies any other significant symptoms Review of Systems Review of Systems: All systems reviewed and are unremarkable except as noted below Physical Exam Physical Exam: Lying in bed without any acute distress Constitutional: well developed, well nourished, + ill appearing and average body habitus Eyes: PERRL, conjunctivae normal, anicteric sclerae ENMT: external ear and nose normal, oropharynx normal Neck: trachea midline, no thyromegaly Respiratory: no respiratory distress Auscultation: lungs clear to auscultation bilaterally Cardiovascular: Rate/Rhythm: regular rate and regular rhythm; not tachycardic Heart Sounds: normal S1 and normal S2; no murmur Extremities: no edema Gastrointestinal (Abdomen): Inspection/Auscultation: normal bowel sounds; abdomen not distended Percussion/Palpation: abdomen soft; abdomen nontender Musculoskeletal: Has significant tremors involving the extremities worse with activity Neurologic: normal touch/pain/proprioception and moves all extremities; no focal motor deficits Lymphatic: no cervical or axillary lymphadenopathy Results & Data Results & Data Vital Signs (Past 12 Hours) Vital Signs Temp Pulse Pulse Resp BP Pulse Ox O2 Del Method 05/30/24 11:38 36.7 C 79 20 129/82 94 Nasal Cannula 05/30/24 07:45 36.7 C 75 18 135/83 92 Nasal Cannula 05/30/24 07:30 Nasal Cannula 05/30/24 07:16 75 18 94 Nasal Cannula 05/30/24 07:00 72 05/30/24 03:35 36.5 C 72 20 120/71 94 Nasal Cannula O2 Flow Rate 05/30/24 11:38 5 05/30/24 07:45 5 05/30/24 07:30 3 05/30/24 07:16 4 05/30/24 07:00 05/30/24 03:35 2 Medications Administered Current Inpatient Medications Acetaminophen (Acetaminophen 325 Mg Tab) 650 mg PO QID PRN PRN Reason: pain/fever Stop: 06/27/24 06:07 Albuterol (Albuterol Hfa 8 Gm Inhaler (Combivent Respimat P&T Subs)) 1 puffs INH TIDR [facility]; Protocol Stop: 06/27/24 12:59 Last Admin: 05/30/24 07:16 Dose: 1 puffs Allopurinol (Allopurinol 100 Mg Tab) 200 mg PO DAILY [facility] Stop: 06/27/24 08:59 Last Admin: 05/30/24 07:33 Dose: 200 mg Citalopram Hydrobromide (Citalopram 20 Mg Tab) 20 mg PO DAILY [facility] Stop: 06/27/24 08:59 Last Admin: 05/30/24 07:33 Dose: 20 mg Clopidogrel Bisulfate (Clopidogrel Bisulfate 75 Mg Tab) 75 mg PO DAILY [facility] Stop: 06/27/24 08:59 Last Admin: 05/30/24 07:33 Dose: 75 mg Docusate Sodium (Docusate Sodium 100 Mg Cap) 100 mg PO HS [facility] Stop: 06/27/24 20:59 Last Admin: 05/29/24 19:40 Dose: 100 mg Duloxetine HCl (Duloxetine Hcl 60 Mg Cap) 60 mg PO DAILY [facility] Stop: 06/27/24 08:59 Last Admin: 05/30/24 07:33 Dose: 60 mg Enoxaparin Sodium (Enoxaparin Inj 40 Mg/0.4 Ml Syr) 40 mg SQ QAM [facility] Stop: 06/27/24 08:59 Last Admin: 05/30/24 07:32 Dose: Not Given Finasteride (Finasteride 5 Mg Tab) 5 mg PO DAILY [facility] Stop: 06/27/24 08:59 Last Admin: 05/30/24 07:34 Dose: 5 mg Furosemide (Furosemide 40 Mg Tab) 40 mg PO BID17 [facility] Stop: 06/27/24 16:59 Last Admin: 05/30/24 07:34 Dose: 40 mg Piperacillin Sod/Tazobactam Sod (Zosyn) 4.5 gm in 100 mls @ 25 mls/hr IV Q8H [facility]; Protocol Stop: 06/07/24 11:59 Last Admin: 05/30/24 11:44 Dose: 25 mls/hr Ipratropium [place] (Ipratropium Hfa Inhaler (Combivent Respimat P&T Subs)) 1 puffs INH TIDR [facility]; Protocol Stop: 06/27/24 12:59 Last Admin: 05/30/24 07:16 Dose: 1 puffs Lactobacillus Acidophilus (Advanced Probiotic 625 Mg Capsule) 1,250 mg PO DAILY [facility] Stop: 06/27/24 08:59 Last Admin: 05/30/24 07:34 Dose: 1,250 mg Levothyroxine Sodium (Levothyroxine Sodium 112 Mcg Tablet) 112 mcg PO DAILYBB [facility] Stop: 06/27/24 06:29 Last Admin: 05/30/24 04:43 Dose: 112 mcg Melatonin (Melatonin 3 Mg Tab) 3 mg PO HS PRN PRN Reason: Sleep Stop: 06/28/24 00:39 Last Admin: 05/29/24 19:40 Dose: 3 mg Montelukast Sodium (Montelukast Sodium 10 Mg Tablet) 10 mg PO QAM [facility] Stop: 06/27/24 08:59 Last Admin: 05/30/24 07:33 Dose: 10 mg Oxybutynin Chloride (Oxybutynin Chloride Xl 5 Mg Tabcr) 5 mg PO DAILY [facility] Stop: 06/27/24 08:59 Last Admin: 05/30/24 07:33 Dose: 5 mg Pantoprazole Sodium (Pantoprazole 40 Mg Tab) 40 mg PO QAM [facility] Stop: 06/27/24 08:59 Last Admin: 05/30/24 07:34 Dose: 40 mg Propranolol HCl (Propranolol Hcl 20 Mg Tab) 20 mg PO TID [facility] Stop: 06/27/24 08:59 Last Admin: 05/30/24 07:33 Dose: 20 mg Rosuvastatin Calcium (Rosuvastatin Calcium 5 Mg Tab) 5 mg PO QAM [facility] Stop: 06/27/24 08:59 Last Admin: 05/30/24 07:33 Dose: 5 mg Tamsulosin HCl (Tamsulosin Hcl 0.4 Mg Cap) 0.4 mg PO HS [facility] Stop: 06/27/24 20:59 Last Admin: 05/29/24 19:41 Dose: 0.4 mg
[2024-05-30] MEDS: ACETAMINOPHEN 325 MG TAB PO PRN (20:21)
--- NOTE | 2024-05-31 15:06 | Hospitalist Progress Note ---
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 History of chronic right-sided heart failure, EZEQUIEL (CPAP intolerance), nocturnal hypoxemia nasal cannula at night pulmonary congestion on imaging Feels a little better since admission and has been requiring 3 L to maintain saturation Ambulatory dysfunction/functional disability Will need PT and OT evaluation prior to discharge He has been much better today and seems to be more alert awake and communicating Has had physical therapy and recommended rehab Essential tremors Has been bothering him very much Has been on propranolol 20 mg 3 times daily tremor seems to be controlled Complicated UTI, history of BPH, no sepsis for now history Has been started on intravenously Zosyn given the history of Enterococcus infection in the past Urine culture is negative so far Will continue current antibiotic and await Urine culture remains negative and blood cultures have been negative Will discontinue antibiotic for a total of 5 days CAD status post stenting Mild MR Remains stable without any cardiac symptoms HTN, stable Continue current medications Other significant medical conditions are as below and remained stable: Hypothyroidism, euthyroid as of last month's TSH Cchronic anemia, hemoglobin at baseline essential tremors on propranolol Hyperglycemia likely prediabetes, hemoglobin A1c of 6 from December 2023 Past tobacco abuse Social service re: placement, patient considering [facility] DVT prophylaxis. Lovenox subcu Full code Patient daughter requesting updates from providers. Antonietta Ciara Mcgrath, contact #[phone]. Admission and Anticipated Discharge Date Admission Date: May 28, 2024 Subjective 05/29/2024 The patient was seen and examined in medical telemetry unit He has been feeling better since admission and denies any significant symptoms 05/30/2024 Patient was seen and examined in medical telemetry unit He remains stable but has significant tremors especially with activity and also difficulty in speech-chronic Denies any other significant symptoms 05/31/24 The patient was seen and examined in medical telemetry unit He has been much better today and communicating normally Still has significant tremors involving the hands Has had physical therapy and recommended SNF Review of Systems Review of Systems: All systems reviewed and are unremarkable except as noted below Physical Exam Physical Exam: Lying in bed without any acute distress Constitutional: well developed, well nourished, + ill appearing and average body habitus Eyes: PERRL, conjunctivae normal, anicteric sclerae ENMT: external ear and nose normal, oropharynx normal Neck: trachea midline, no thyromegaly Respiratory: no respiratory distress Auscultation: lungs clear to auscultation bilaterally Cardiovascular: Rate/Rhythm: regular rate and regular rhythm; not tachycardic Heart Sounds: normal S1 and normal S2; no murmur Extremities: no edema Gastrointestinal (Abdomen): Inspection/Auscultation: normal bowel sounds; abdomen not distended Percussion/Palpation: abdomen soft; abdomen nontender Neurologic: normal touch/pain/proprioception and moves all extremities; no focal motor deficits Lymphatic: no cervical or axillary lymphadenopathy Results & Data Results & Data Vital Signs (Past 12 Hours) Vital Signs Temp Pulse Pulse Resp BP Pulse Ox O2 Del Method 05/31/24 13:25 20 94 Nasal Cannula 05/31/24 11:19 36.4 C L 62 18 120/76 90 Nasal Cannula 05/31/24 08:00 Nasal Cannula 05/31/24 07:51 36.4 C L 57 L 18 122/78 93 Nasal Cannula 05/31/24 07:27 60 18 95 Nasal Cannula 05/31/24 07:23 68 05/31/24 03:40 36.5 C 67 18 106/68 92 Nasal Cannula O2 Flow Rate 05/31/24 13:25 4 05/31/24 11:19 4 05/31/24 08:00 4 05/31/24 07:51 4 05/31/24 07:27 4 05/31/24 07:23 05/31/24 03:40 4 Medications Administered Current Inpatient Medications Acetaminophen (Acetaminophen 325 Mg Tab) 650 mg PO QID PRN PRN Reason: pain/fever Stop: 06/27/24 06:07 Last Admin: 05/30/24 20:21 Dose: 650 mg Albuterol (Albuterol Hfa 8 Gm Inhaler (Combivent Respimat P&T Subs)) 1 puffs INH TIDR [facility]; Protocol Stop: 06/27/24 12:59 Last Admin: 05/31/24 13:25 Dose: 1 puffs Allopurinol (Allopurinol 100 Mg Tab) 200 mg PO DAILY [facility] Stop: 06/27/24 08:59 Last Admin: 05/31/24 08:21 Dose: 200 mg Citalopram Hydrobromide (Citalopram 20 Mg Tab) 20 mg PO DAILY [facility] Stop: 06/27/24 08:59 Last Admin: 05/31/24 08:21 Dose: 20 mg Clopidogrel Bisulfate (Clopidogrel Bisulfate 75 Mg Tab) 75 mg PO DAILY [facility] Stop: 06/27/24 08:59 Last Admin: 05/31/24 08:20 Dose: 75 mg Docusate Sodium (Docusate Sodium 100 Mg Cap) 100 mg PO HS [facility] Stop: 06/27/24 20:59 Last Admin: 05/30/24 20:20 Dose: 100 mg Duloxetine HCl (Duloxetine Hcl 60 Mg Cap) 60 mg PO DAILY [facility] Stop: 06/27/24 08:59 Last Admin: 05/31/24 08:20 Dose: 60 mg Enoxaparin Sodium (Enoxaparin Inj 40 Mg/0.4 Ml Syr) 40 mg SQ QAM [facility] Stop: 06/27/24 08:59 Last Admin: 05/31/24 08:22 Dose: 40 mg Finasteride (Finasteride 5 Mg Tab) 5 mg PO DAILY [facility] Stop: 06/27/24 08:59 Last Admin: 05/31/24 08:22 Dose: 5 mg Furosemide (Furosemide 40 Mg Tab) 40 mg PO BID17 [facility] Stop: 06/27/24 16:59 Last Admin: 05/31/24 08:21 Dose: 40 mg Piperacillin Sod/Tazobactam Sod (Zosyn) 4.5 gm in 100 mls @ 25 mls/hr IV Q8H [facility]; Protocol Stop: 06/07/24 11:59 Last Admin: 05/31/24 12:34 Dose: 25 mls/hr Ipratropium [place] (Ipratropium Hfa Inhaler (Combivent Respimat P&T Subs)) 1 puffs INH TIDR [facility]; Protocol Stop: 06/27/24 12:59 Last Admin: 05/31/24 13:25 Dose: 1 puffs Lactobacillus Acidophilus (Advanced Probiotic 625 Mg Capsule) 1,250 mg PO DAILY [facility] Stop: 06/27/24 08:59 Last Admin: 05/31/24 08:22 Dose: 1,250 mg Levothyroxine Sodium (Levothyroxine Sodium 112 Mcg Tablet) 112 mcg PO DAILYBB [facility] Stop: 06/27/24 06:29 Last Admin: 05/31/24 05:58 Dose: 112 mcg Melatonin (Melatonin 3 Mg Tab) 3 mg PO HS PRN PRN Reason: Sleep Stop: 06/28/24 00:39 Last Admin: 05/30/24 20:21 Dose: 3 mg Montelukast Sodium (Montelukast Sodium 10 Mg Tablet) 10 mg PO QAM [facility] Stop: 06/27/24 08:59 Last Admin: 05/31/24 08:22 Dose: 10 mg Oxybutynin Chloride (Oxybutynin Chloride Xl 5 Mg Tabcr) 5 mg PO DAILY [facility] Stop: 06/27/24 08:59 Last Admin: 05/31/24 08:21 Dose: 5 mg Pantoprazole Sodium (Pantoprazole 40 Mg Tab) 40 mg PO QAM [facility] Stop: 06/27/24 08:59 Last Admin: 05/31/24 08:21 Dose: 40 mg Propranolol HCl (Propranolol Hcl 20 Mg Tab) 20 mg PO TID [facility] Stop: 06/27/24 08:59 Last Admin: 05/31/24 08:21 Dose: 20 mg Rosuvastatin Calcium (Rosuvastatin Calcium 5 Mg Tab) 5 mg PO QAM [facility] Stop: 06/27/24 08:59 Last Admin: 05/31/24 08:20 Dose: 5 mg Tamsulosin HCl (Tamsulosin Hcl 0.4 Mg Cap) 0.4 mg PO HS [facility] Stop: 06/27/24 20:59 Last Admin: 05/30/24 20:21 Dose: 0.4 mg
[2024-06-01 07:37] LABS: Basophils # (auto) 0.05 K/uL (0.00-0.20); Basophils % (auto) 0.4 %; Eosinophils # (auto) 0.38 K/uL (0.00-0.50); Eosinophils % (auto) 3.4 %; Hematocrit (blood only) 39.7 % (42.0-52.0); Hemoglobin 13.5 g/dl (14.0-18.0); Immature Granulocytes # (auto) 0.09 K/uL (0.01-0.20); Immature Granulocytes % (auto) 0.8 %; Lymphocytes # (auto) 2.08 K/uL (1.20-3.40); Lymphocytes % (auto) 18.3 %; Mean Corpuscular Hemoglobin 31.2 pg (25.0-34.0); Mean Corpuscular Volume 91.7 fL (80.0-100.0); Monocytes # (auto) 1.26 K/uL (0.11-0.59); Monocytes % (auto) 11.1 %; Neutrophils # (auto) 7.48 K/uL (1.40-6.50); Platelet Count 171 K/uL (130-400); RDW Coefficient of Variation 14.5 % (11.5-14.5); RDW Standard Deviation 48.2 fL (36.4-46.3); Red Blood Count 4.33 M/uL (4.70-6.10); White Blood Count 11.34 K/ul (4.8-10.8)
[2024-06-01 07:56] LABS: BUN Creatinine Ratio 10.5 (10-20); Calcium 9.6 mg/dl (8.6-10.3); Creatinine Clr Calc Pharmacy 57.6 ml/min; Potassium 2.7 mmol/L (3.5-5.1)
--- NOTE | 2024-06-01 11:51 | Hospitalist Progress Note ---
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 History of chronic right-sided heart failure, EZEQUIEL (CPAP intolerance), nocturnal hypoxemia nasal cannula at night pulmonary congestion on imaging Feels a little better since admission and has been requiring 3 L to maintain saturation Ambulatory dysfunction/functional disability Will need PT and OT evaluation prior to discharge He has been much better today and seems to be more alert awake and communicating Has had physical therapy and recommended rehab He is clinically much better today and denies any significant symptoms Awaiting placement Essential tremors Has been bothering him very much Has been on propranolol 20 mg 3 times daily tremor seems to be controlled His tremors are much better Complicated UTI, history of BPH, no sepsis for now history Has been started on intravenously Zosyn given the history of Enterococcus infection in the past Urine culture is negative so far Will continue current antibiotic and await Urine culture remains negative and blood cultures have been negative Will discontinue antibiotic for a total of 5 days CAD status post stenting Mild MR Remains stable without any cardiac symptoms HTN, stable Continue current medications Other significant medical conditions are as below and remained stable: Hypothyroidism, euthyroid as of last month's TSH Cchronic anemia, hemoglobin at baseline essential tremors on propranolol Hyperglycemia likely prediabetes, hemoglobin A1c of 6 from December 2023 Past tobacco abuse Social service re: placement, patient considering [facility] DVT prophylaxis. Lovenox subcu Full code Patient daughter requesting updates from providers. Ms. Ciara Mcgrath, contact #[phone]. Admission and Anticipated Discharge Date Admission Date: May 28, 2024 Subjective 05/29/2024 The patient was seen and examined in medical telemetry unit He has been feeling better since admission and denies any significant symptoms 05/30/2024 Patient was seen and examined in medical telemetry unit He remains stable but has significant tremors especially with activity and also difficulty in speech-chronic Denies any other significant symptoms 05/31/24 The patient was seen and examined in medical telemetry unit He has been much better today and communicating normally Still has significant tremors involving the hands Has had physical therapy and recommended SNF 06/01/2024 The patient was seen and examined in medical telemetry unit He has been much better and his tremors are improved Will continue physical therapy and he will be discharged likely on Tuesday Review of Systems Review of Systems: All systems reviewed and are unremarkable except as noted below Physical Exam Physical Exam: Lying in bed without any acute distress Constitutional: well developed, well nourished, + ill appearing and average body habitus Eyes: PERRL, conjunctivae normal, anicteric sclerae ENMT: external ear and nose normal, oropharynx normal Neck: trachea midline, no thyromegaly Respiratory: no respiratory distress Auscultation: lungs clear to auscultation bilaterally Cardiovascular: Rate/Rhythm: regular rate and regular rhythm; not tachycardic Heart Sounds: normal S1 and normal S2; no murmur Extremities: no edema Gastrointestinal (Abdomen): Inspection/Auscultation: normal bowel sounds; abdomen not distended Percussion/Palpation: abdomen soft; abdomen nontender Neurologic: normal touch/pain/proprioception and moves all extremities; no focal motor deficits Lymphatic: no cervical or axillary lymphadenopathy Results & Data Results & Data Vital Signs (Past 12 Hours) Vital Signs Temp Pulse Pulse Pulse Resp BP Pulse Ox 06/01/24 11:30 36.7 C 88 18 113/69 94 06/01/24 11:29 06/01/24 07:13 36.9 C 59 L 18 113/73 92 06/01/24 07:06 58 L 06/01/24 06:04 60 18 90 06/01/24 04:00 36.7 C 60 20 112/64 90 O2 Del Method O2 Flow Rate 06/01/24 11:30 Nasal Cannula 3 06/01/24 11:29 5 06/01/24 07:13 Nasal Cannula 4 06/01/24 07:06 06/01/24 06:04 Nasal Cannula 4 06/01/24 04:00 Nasal Cannula 4 Laboratory Results Short CBC 06/01/24 Range/Units 06:53 WBC 11.34 H (4.8-10.8) K/ul Hgb 13.5 L (14.0-18.0) g/dl Hct 39.7 L (42.0-52.0) % Plt Count 171 (130-400) K/uL BMP 06/01/24 06:53 Sodium 137 Potassium 2.7 L Chloride 90 L Carbon Dioxide 41 H* BUN 9 Creatinine 0.86 Glucose 152 H Calcium 9.6 Medications Administered Current Inpatient Medications Acetaminophen (Acetaminophen 325 Mg Tab) 650 mg PO QID PRN PRN Reason: pain/fever Stop: 05/07/25 06:07 Last Admin: 05/30/24 20:21 Dose: 650 mg Albuterol (Albuterol Hfa 8 Gm Inhaler (Combivent Respimat P&T Subs)) 1 puffs INH TIDR [facility]; Protocol Stop: 06/27/24 12:59 Last Admin: 06/01/24 06:01 Dose: 1 puffs Allopurinol (Allopurinol 100 Mg Tab) 200 mg PO DAILY [facility] Stop: 06/27/24 08:59 Last Admin: 06/01/24 09:13 Dose: 200 mg Citalopram Hydrobromide (Citalopram 20 Mg Tab) 20 mg PO DAILY [facility] Stop: 06/27/24 08:59 Last Admin: 06/01/24 09:15 Dose: 20 mg Clopidogrel Bisulfate (Clopidogrel Bisulfate 75 Mg Tab) 75 mg PO DAILY [facility] Stop: 06/27/24 08:59 Last Admin: 06/01/24 09:15 Dose: 75 mg Docusate Sodium (Docusate Sodium 100 Mg Cap) 100 mg PO HS [facility] Stop: 06/27/24 20:59 Last Admin: 05/31/24 20:10 Dose: 100 mg Duloxetine HCl (Duloxetine Hcl 60 Mg Cap) 60 mg PO DAILY [facility] Stop: 06/27/24 08:59 Last Admin: 06/01/24 09:16 Dose: 60 mg Enoxaparin Sodium (Enoxaparin Inj 40 Mg/0.4 Ml Syr) 40 mg SQ QAM [facility] Stop: 06/27/24 08:59 Last Admin: 06/01/24 09:11 Dose: 40 mg Finasteride (Finasteride 5 Mg Tab) 5 mg PO DAILY [facility] Stop: 06/27/24 08:59 Last Admin: 06/01/24 09:16 Dose: 5 mg Furosemide (Furosemide 40 Mg Tab) 40 mg PO BID17 [facility] Stop: 06/27/24 16:59 Last Admin: 06/01/24 09:15 Dose: 40 mg Piperacillin Sod/Tazobactam Sod (Zosyn) 4.5 gm in 100 mls @ 25 mls/hr IV Q8H [facility]; Protocol Stop: 06/07/24 11:59 Last Infusion: 06/01/24 07:40 Dose: Infused Ipratropium [place] (Ipratropium Hfa Inhaler (Combivent Respimat P&T Subs)) 1 puffs INH TIDR [facility]; Protocol Stop: 06/27/24 12:59 Last Admin: 06/01/24 06:01 Dose: 1 puffs Lactobacillus Acidophilus (Advanced Probiotic 625 Mg Capsule) 1,250 mg PO DAILY [facility] Stop: 06/27/24 08:59 Last Admin: 06/01/24 09:13 Dose: 1,250 mg Levothyroxine Sodium (Levothyroxine Sodium 112 Mcg Tablet) 112 mcg PO DAILYBB [facility] Stop: 06/27/24 06:29 Last Admin: 06/01/24 06:16 Dose: 112 mcg Melatonin (Melatonin 3 Mg Tab) 3 mg PO PRN PRN Reason: Sleep Stop: 06/28/24 00:39 Last Admin: 05/30/24 20:21 Dose: 3 mg Montelukast Sodium ([facility]elukast Sodium 10 Mg Tablet) [facility] [place]: 06/27/24 08:59 Last Admin: 06/01/24 09:15 Dose: 10 mg Oxybutynin Chloride (Oxybutynin Chloride Xl 5 Mg Tabcr) 5 mg PO DAILY [facility] Stop: 06/27/24 08:59 Last Admin: 06/01/24 09:16 Dose: 5 mg Pantoprazole Sodium (Pantoprazole 40 Mg Tab) [facility] [place] Stop: 06/27/24 08:59 Last Admin: 06/01/24 09:17 Dose: 40 mg Propranolol HCl (Propranolol Hcl 20 Mg Tab) 20 mg PO TID [facility] Stop: 06/27/24 08:59 Last Admin: 06/01/24 09:16 Dose: 20 mg Rosuvastatin Calcium (Rosuvastatin Calcium 5 Mg Tab) 5 mg PO QAM [facility] Stop: 06/27/24 08:59 Last Admin: 06/01/24 09:17 Dose: 5 mg Tamsulosin HCl (Tamsulosin Hcl 0.4 Mg Cap) 0.4 mg PO HS [facility] Stop: 06/27/24 20:59 Last Admin: 05/31/24 20:10 Dose: 0.4 mg
--- NOTE | 2024-06-02 13:56 | Hospitalist Progress Note ---
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 History of chronic right-sided heart failure, EZEQUIEL (CPAP intolerance), nocturnal hypoxemia nasal cannula at night pulmonary congestion on imaging Feels a little better since admission and has been requiring 3 L to maintain saturation Ambulatory dysfunction/functional disability Will need PT and OT evaluation prior to discharge He has been much better today and seems to be more alert awake and communicating Has had physical therapy and recommended rehab He is clinically much better today and denies any significant symptoms Clinically much better and denies any shortness of breath at rest Requiring 4 L to maintain saturation and awaiting placement Essential tremors Has been bothering him very much Has been on propranolol 20 mg 3 times daily tremor seems to be controlled His tremors are much better Complicated UTI, history of BPH, no sepsis for now history Has been started on intravenously Zosyn given the history of Enterococcus infection in the past Urine culture is negative so far Will continue current antibiotic and await Urine culture remains negative and blood cultures have been negative Will discontinue antibiotic for a total of 5 days His antibiotic course is done and no more antibiotic from tomorrow CAD status post stenting Mild MR Remains stable without any cardiac symptoms HTN, stable Continue current medications Other significant medical conditions are as below and remained stable: Hypothyroidism, euthyroid as of last month's TSH Cchronic anemia, hemoglobin at baseline essential tremors on propranolol Hyperglycemia likely prediabetes, hemoglobin A1c of 6 from December 2023 Past tobacco abuse Social service re: placement, patient considering [facility] DVT prophylaxis. Lovenox subcu Full code Patient daughter requesting updates from providers. Ms. Ciara Mcgrath, contact #[phone]. Admission and Anticipated Discharge Date Admission Date: May 28, 2024 Subjective 05/29/2024 The patient was seen and examined in medical telemetry unit He has been feeling better since admission and denies any significant symptoms 05/30/2024 Patient was seen and examined in medical telemetry unit He remains stable but has significant tremors especially with activity and also difficulty in speech-chronic Denies any other significant symptoms 05/31/24 The patient was seen and examined in medical telemetry unit He has been much better today and communicating normally Still has significant tremors involving the hands Has had physical therapy and recommended SNF 06/01/2024 The patient was seen and examined in medical telemetry unit He has been much better and his tremors are improved Will continue physical therapy and he will be discharged likely on Tuesday06/02/2024 The patient was seen and examined in medical telemetry unit He has been much better but is very difficult to find a peripheral vein to have a IV line He denies any other significant symptoms and tremors are controlled Review of Systems Review of Systems: All systems reviewed and are unremarkable except as noted below Physical Exam Physical Exam: Lying in bed without any acute distress Constitutional: well developed, well nourished, + ill appearing and average body habitus Eyes: PERRL, conjunctivae normal, anicteric sclerae ENMT: external ear and nose normal, oropharynx normal Neck: trachea midline, no thyromegaly Respiratory: no respiratory distress Auscultation: lungs clear to auscultation bilaterally Cardiovascular: Rate/Rhythm: regular rate and regular rhythm; not tachycardic Heart Sounds: normal S1 and normal S2; no murmur Extremities: no edema Gastrointestinal (Abdomen): Inspection/Auscultation: normal bowel sounds; abdomen not distended Percussion/Palpation: abdomen soft; abdomen nontender Neurologic: normal touch/pain/proprioception and moves all extremities; no focal motor deficits Lymphatic: no cervical or axillary lymphadenopathy Results & Data Results & Data Vital Signs (Past 12 Hours) Vital Signs Temp Pulse Pulse Pulse Resp BP BP 06/02/24 12:42 87 19 06/02/24 12:19 36.4 C L 61 18 124/80 06/02/24 11:45 06/02/24 08:00 06/02/24 07:53 36.5 C 55 L 16 114/65 06/02/24 07:34 88 18 06/02/24 07:11 52 L 06/02/24 03:19 36.5 C 55 L 18 162/93 H Pulse Ox Pulse Ox O2 Del Method O2 Del Method O2 Flow Rate O2 Flow Rate 06/02/24 12:42 92 Nasal Cannula 4 06/02/24 12:19 90 Nasal Cannula 3 06/02/24 11:45 Nasal Cannula 3 06/02/24 08:00 95 Nasal Cannula 3 06/02/24 07:53 91 Nasal Cannula 3 06/02/24 07:34 90 Nasal Cannula 4 06/02/24 07:11 06/02/24 03:19 93 Nasal Cannula 3 Medications Administered Current Inpatient Medications Acetaminophen (Acetaminophen 325 Mg Tab) 650 mg PO QID PRN PRN Reason: pain/fever Stop: 06/27/24 06:07 Last Admin: 06/01/24 20:42 Dose: 650 mg Albuterol (Albuterol Hfa 8 Gm Inhaler (Combivent Respimat P&T Subs)) 1 puffs INH TIDR [facility]; Protocol Stop: 06/27/24 12:59 Last Admin: 06/02/24 12:41 Dose: 1 puffs Allopurinol (Allopurinol 100 Mg Tab) 200 mg PO DAILY [facility] Stop: 06/27/24 08:59 Last Admin: 06/02/24 08:48 Dose: 200 mg Citalopram Hydrobromide (Citalopram 20 Mg Tab) 20 mg PO DAILY [facility] Stop: 06/27/24 08:59 Last Admin: 06/02/24 08:47 Dose: 20 mg Clopidogrel Bisulfate (Clopidogrel Bisulfate 75 Mg Tab) 75 mg PO DAILY [facility] Stop: 06/27/24 08:59 Last Admin: 06/02/24 08:49 Dose: 75 mg Docusate Sodium (Docusate Sodium 100 Mg Cap) 100 mg PO HS [facility] Stop: 06/27/24 20:59 Last Admin: 06/01/24 20:42 Dose: 100 mg Duloxetine HCl (Duloxetine Hcl 60 Mg Cap) 60 mg PO DAILY [facility] Stop: 06/27/24 08:59 Last Admin: 06/02/24 08:47 Dose: 60 mg Enoxaparin Sodium (Enoxaparin Inj 40 Mg/0.4 Ml Syr) 40 mg SQ QAM [facility] Stop: 06/27/24 08:59 Last Admin: 06/02/24 08:47 Dose: 40 mg Finasteride (Finasteride 5 Mg Tab) 5 mg PO DAILY [facility] Stop: 06/27/24 08:59 Last Admin: 06/02/24 08:46 Dose: 5 mg Furosemide (Furosemide 40 Mg Tab) 40 mg PO BID17 [facility] Stop: 06/27/24 16:59 Last Admin: 06/02/24 08:49 Dose: 40 mg Piperacillin Sod/Tazobactam Sod (Zosyn) 4.5 gm in 100 mls @ 25 mls/hr IV Q8H [facility]; Protocol Stop: 06/07/24 11:59 Last Infusion: 06/02/24 08:16 Dose: Infused Ipratropium [place] (Ipratropium Hfa Inhaler (Combivent Respimat P&T Subs)) 1 puffs INH TIDR [facility]; Protocol Stop: 06/27/24 12:59 Last Admin: 06/02/24 12:42 Dose: 1 puffs Lactobacillus Acidophilus (Advanced Probiotic 625 Mg Capsule) 1,250 mg PO DAILY [facility] Stop: 06/27/24 08:59 Last Admin: 06/02/24 08:47 Dose: 1,250 mg Levothyroxine Sodium (Levothyroxine Sodium 112 Mcg Tablet) 112 mcg PO DAILYBB [facility] Stop: 06/27/24 06:29 Last Admin: 06/02/24 05:11 Dose: 112 mcg Melatonin (Melatonin 3 Mg Tab) 3 mg PO HS PRN PRN Reason: Sleep Stop: 06/28/24 00:39 Last Admin: 06/01/24 20:42 Dose: 3 mg Montelukast Sodium (Montelukast Sodium 10 Mg Tablet) 10 mg PO QAM [facility] Stop: 06/27/24 08:59 Last Admin: 06/02/24 08:48 Dose: 10 mg Oxybutynin Chloride (Oxybutynin Chloride Xl 5 Mg Tabcr) 5 mg PO DAILY [facility] Stop: 06/27/24 08:59 Last Admin: 06/02/24 08:47 Dose: 5 mg Pantoprazole Sodium (Pantoprazole 40 Mg Tab) 40 mg PO QAM [facility] Stop: 06/27/24 08:59 Last Admin: 06/02/24 08:49 Dose: 40 mg Propranolol HCl (Propranolol Hcl 20 Mg Tab) 20 mg PO TID [facility] Stop: 06/27/24 08:59 Last Admin: 06/02/24 08:48 Dose: 20 mg Rosuvastatin Calcium (Rosuvastatin Calcium 5 Mg Tab) 5 mg PO QAM [facility] Stop: 06/27/24 08:59 Last Admin: 06/02/24 08:47 Dose: 5 mg Tamsulosin HCl (Tamsulosin Hcl 0.4 Mg Cap) 0.4 mg PO HS [facility] Stop: 06/27/24 20:59 Last Admin: 06/01/24 20:43 Dose: 0.4 mg
--- NOTE | 2024-06-03 10:53 | Hospitalist Progress Note ---
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 History of chronic right-sided heart failure, EZEQUIEL (CPAP intolerance), nocturnal hypoxemia nasal cannula at night pulmonary congestion on imaging Feels a little better since admission and has been requiring 3 L to maintain saturation Ambulatory dysfunction/functional disability Will need PT and OT evaluation prior to discharge He has been much better today and seems to be more alert awake and communicating Has had physical therapy and recommended rehab He is clinically much better today and denies any significant symptoms Clinically much better and denies any shortness of breath at rest Requiring 4 L to maintain saturation and awaiting placement He has been stable and saturating normally on room air Will get BMP checked tomorrow Essential tremors Has been bothering him very much Has been on propranolol 20 mg 3 times daily tremor seems to be controlled His tremors are much better Complicated UTI, history of BPH, no sepsis for now history Has been started on intravenously Zosyn given the history of Enterococcus infection in the past Urine culture is negative so far Will continue current antibiotic and await Urine culture remains negative and blood cultures have been negative Will discontinue antibiotic for a total of 5 days His antibiotic course is done and no more antibiotic from tomorrow Course of antibiotic is done CAD status post stenting Mild MR Remains stable without any cardiac symptoms HTN, stable Continue current medications Other significant medical conditions are as below and remained stable: Hypothyroidism, euthyroid as of last month's TSH Cchronic anemia, hemoglobin at baseline essential tremors on propranolol Hyperglycemia likely prediabetes, hemoglobin A1c of 6 from December 2023 Past tobacco abuse Social service re: placement, patient considering [facility] DVT prophylaxis. Lovenox subcu Full code Patient daughter requesting updates from providers. Ms. Ciara Mcgrath, contact #[phone]. Likely discharge tomorrow in a facility Admission and Anticipated Discharge Date Admission Date: May 28, 2024 Subjective 05/29/2024 The patient was seen and examined in medical telemetry unit He has been feeling better since admission and denies any significant symptoms 05/30/2024 Patient was seen and examined in medical telemetry unit He remains stable but has significant tremors especially with activity and also difficulty in speech-chronic Denies any other significant symptoms 05/31/24 The patient was seen and examined in medical telemetry unit He has been much better today and communicating normally Still has significant tremors involving the hands Has had physical therapy and recommended SNF 06/01/2024 The patient was seen and examined in medical telemetry unit He has been much better and his tremors are improved Will continue physical therapy and he will be discharged likely on Tuesday06/02/2024 The patient was seen and examined in medical telemetry unit He has been much better but is very difficult to find a peripheral vein to have a IV line He denies any other significant symptoms and tremors are controlled 06/03/2024 The patient was seen and examined in medical telemetry unit He has been much better today and denies any significant symptoms He will be discharged tomorrow in a facility Review of Systems Review of Systems: All systems reviewed and are unremarkable except as noted below Physical Exam Physical Exam: Lying in bed without any acute distress Constitutional: well developed, well nourished, + ill appearing and average body habitus Eyes: PERRL, conjunctivae normal, anicteric sclerae ENMT: external ear and nose normal, oropharynx normal Neck: trachea midline, no thyromegaly Respiratory: no respiratory distress Auscultation: lungs clear to ausc ultation bilaterally Cardiovascular: Rate/Rhythm: regular rate and regular rhythm; not tachycardic Heart Sounds: normal S1 and normal S2; no murmur Extremities: no edema Gastrointestinal (Abdomen): Inspection/Auscultation: normal bowel sounds; abdomen not distended Percussion/Palpation: abdomen soft; abdomen nontender Neurologic: normal touch/pain/proprioception and moves all extremities; no focal motor deficits Lymphatic: no cervical or axillary lymphadenopathy Results & Data Results & Data Vital Signs (Past 12 Hours) Vital Signs Temp Pulse Pulse Resp BP Pulse Ox Pulse Ox 06/03/24 08:00 96 06/03/24 07:28 59 L 18 95 06/03/24 07:21 37.2 C 56 L 18 112/78 97 06/03/24 07:08 62 06/03/24 03:24 36.4 C L 53 L 16 106/63 93 06/02/24 23:12 36.5 C 54 L 18 109/65 95 O2 Del Method O2 Del Method O2 Flow Rate 06/03/24 08:00 Room Air 06/03/24 07:28 Nasal Cannula 4 06/03/24 07:21 Nasal Cannula 3 06/03/24 07:08 06/03/24 03:24 Nasal Cannula 4 06/02/24 23:12 Nasal Cannula 4 Medications Administered Current Inpatient Medications Acetaminophen (Acetaminophen 325 Mg Tab) 650 mg PO QID PRN PRN Reason: pain/fever Stop: 06/27/24 06:07 Last Admin: 06/02/24 20:38 Dose: 650 mg Albuterol (Albuterol Hfa 8 Gm Inhaler (Combivent Respimat P&T Subs)) 1 puffs I [place] TIDR [facility]; Protocol Stop: 06/27/24 12:59 Last Admin: 06/03/24 07:28 Dose: 1 puffs Allopurinol (Allopurinol 100 Mg Tab) 200 mg PO DAILY [facility] Stop: 06/27/24 08:59 Last Admin: 06/03/24 08:19 Dose: 200 mg Citalopram Hydrobromide (Citalopram 20 Mg Tab) 20 mg PO DAILY [facility] Stop: 06/27/24 08:59 Last Admin: 06/03/24 08:19 Dose: 20 mg Clopidogrel Bisulfate (Clopidogrel Bisulfate 75 Mg Tab) 75 mg PO DAILY [facility] Stop: 06/27/24 08:59 Last Admin: 06/03/24 08:20 Dose: 75 mg Docusate Sodium (Docusate Sodium 100 Mg Cap) 100 mg PO HS [facility] Stop: 06/27/24 20:59 Last Admin: 06/02/24 20:38 Dose: 100 mg Duloxetine HCl (Duloxetine Hcl 60 Mg Cap) 60 mg PO DAILY [facility] Stop: 06/27/24 08:59 Last Admin: 06/03/24 08:20 Dose: 60 mg Enoxaparin Sodium (Enoxaparin Inj 40 Mg/0.4 Ml Syr) 40 mg SQ QAM [facility] Stop: 06/27/24 08:59 Last Admin: 06/03/24 08:21 Dose: 40 mg Finasteride (Finasteride 5 Mg Tab) 5 mg PO DAILY [facility] Stop: 06/27/24 08:59 Last Admin: 06/03/24 08:20 Dose: 5 mg Furosemide (Furosemide 40 Mg Tab) 40 mg PO BID17 [facility] Stop: 06/27/24 16:59 Last Admin: 06/03/24 08:20 Dose: 40 mg Ipratropium [place] (Ipratropium Hfa Inhaler (Combivent Respimat P&T Subs)) 1 puffs INH TIDR [facility]; Protocol Stop: 06/27/24 12:59 Last Admin: 06/03/24 07:28 Dose: 1 puffs Lactobacillus Acidophilus (Advanced Probiotic 625 Mg Capsule) 1,250 mg PO DAILY [facility] Stop: 06/27/24 08:59 Last Admin: 06/03/24 08:19 Dose: 1,250 mg Levothyroxine Sodium (Levothyroxine Sodium 112 Mcg Tablet) 112 mcg PO DAILYBB [facility] Stop: 06/27/24 06:29 Last Admin: 06/03/24 05:47 Dose: 112 mcg Melatonin (Melatonin 3 Mg Tab) 3 mg PO PRN PRN Reason: Sleep Stop: 06/28/24 00:39 Last Admin: 06/02/24 20:42 Dose: 3 mg Montelukast Sodium (Montelukast Sodium 10 Mg Tablet) 10 mg PO QAM [facility] Stop: 06/27/24 08:59 Last Admin: 06/03/24 08:20 Dose: 10 mg Oxybutynin Chloride (Oxybutynin Chloride Xl 5 Mg Tabcr) 5 mg PO DAILY [facility] Stop: 06/27/24 08:59 Last Admin: 06/03/24 08:19 Dose: 5 mg Pantoprazole Sodium (Pantoprazole 40 Mg Tab) 40 mg PO QAM [facility] Stop: 06/27/24 08:59 Last Admin: 06/03/24 08:19 Dose: 40 mg Propranolol HCl (Propranolol Hcl 20 Mg Tab) 20 mg PO TID [facility] Stop: 06/27/24 08:59 Last Admin: 06/03/24 08:20 Dose: 20 mg Rosuvastatin Calcium (Rosuvastatin Calcium 5 Mg Tab) 5 mg PO QAM [facility] Stop: 06/27/24 08:59 Last Admin: 06/03/24 08:19 Dose: 5 mg Tamsulosin HCl (Tamsulosin Hcl 0.4 Mg Cap) 0.4 mg PO HS [facility] Stop: 06/27/24 20:59 Last Admin: 06/02/24 20:39 Dose: 0.4 mg
[2024-06-04 06:47] LABS: BUN Creatinine Ratio 9.5 (10-20); Calcium 9.5 mg/dl (8.6-10.3); Creatinine Clr Calc Pharmacy 66.9 ml/min; Potassium 2.9 mmol/L (3.5-5.1)
--- NOTE | 2024-06-04 11:15 | Hospitalist Progress Note ---
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 History of chronic right-sided heart failure, EZEQUIEL (CPAP intolerance), nocturnal hypoxemia nasal cannula at night pulmonary congestion on imaging Feels a little better since admission and has been requiring 3 L to maintain saturation Ambulatory dysfunction/functional disability Will need PT and OT evaluation prior to discharge He has been much better today and seems to be more alert awake and communicating Has had physical therapy and recommended rehab He is clinically much better today and denies any significant symptoms Clinically much better and denies any shortness of breath at rest Requiring 4 L to maintain saturation and awaiting placement He has been stable and saturating normally on room air Will get BMP checked tomorrow-kidney function remains stable and will be given potassium supplement Remains stable without any significant symptoms Will be discharged home this afternoon Essential tremors Has been bothering him very much Has been on propranolol 20 mg 3 times daily tremor seems to be controlled His tremors are much better Complicated UTI, history of BPH, no sepsis for now history Has been started on intravenously Zosyn given the history of Enterococcus infection in the past Urine culture is negative so far Will continue current antibiotic and await Urine culture remains negative and blood cultures have been negative Will discontinue antibiotic for a total of 5 days His antibiotic course is done and no more antibiotic from tomorrow Course of antibiotic is done CAD status post stenting Mild MR Remains stable without any cardiac symptoms HTN, stable Continue current medications Other significant medical conditions are as below and remained stable: Hypothyroidism, euthyroid as of last month's TSH Cchronic anemia, hemoglobin at baseline essential tremors on propranolol Hyperglycemia likely prediabetes, hemoglobin A1c of 6 from December 2023 Past tobacco abuse Social service re: placement, patient considering [facility] DVT prophylaxis. Lovenox subcu Full code Patient daughter requesting updates from providers. Ms. Ciara Mcgrath, contact #[phone]. Likely discharge tomorrow in a facility Admission and Anticipated Discharge Date Admission Date: May 28, 2024 Subjective 05/29/2024 The patient was seen and examined in medical telemetry unit He has been feeling better since admission and denies any significant symptoms 05/30/2024 Patient was seen and examined in medical telemetry unit He remains stable but has significant tremors especially with activity and also difficulty in speech-chronic Denies any other significant symptoms 05/31/24 The patient was seen and examined in medical telemetry unit He has been much better today and communicating normally Still has significant tremors involving the hands Has had physical therapy and recommended SNF 06/01/2024 The patient was seen and examined in medical telemetry unit He has been much better and his tremors are improved Will continue physical therapy and he will be discharged likely on Tuesday06/02/2024 The patient was seen and examined in medical telemetry unit He has been much better but is very difficult to find a peripheral vein to have a IV line He denies any other significant symptoms and tremors are controlled 06/03/2024 The patient was seen and examined in medical telemetry unit He has been much better today and denies any significant symptoms He will be discharged tomorrow in a facility 06/04/2024 Patient was seen and examined in medical telemetry unit He is out of bed on a chair denies any significant symptoms His tremors are controlled does not have any signs or symptoms of infection He has a physical therapy and recommended SNF and he will be discharged to SNF this afternoon Review of Systems Review of Systems: All systems reviewed and are unremarkable except as noted below Physical Exam Physical Exam: Sitting on a chair without any acute distress Constitutional: well developed, well nourished, + ill appearing and average body habitus Eyes: PERRL, conjunctivae normal, anicteric sclerae ENMT: external ear and nose normal, oropharynx normal Neck: trachea midline, no thyromegaly Respiratory: no respiratory distress Auscultation: lungs clear to auscultation bilaterally Cardiovascular: Rate/Rhythm: regular rate and regular rhythm; not tachycardic Heart Sounds: normal S1 and normal S2; no murmur Extremities: no edema Gastrointestinal (Abdomen): Inspection/Auscultation: normal bowel sounds; abdomen not distended Percussion/Palpation: abdomen soft; abdomen nontender Musculoskeletal: No acute arthritis involving any of the joints Neurologic: normal touch/pain/proprioception and moves all extremities; no focal motor deficits Lymphatic: no cervical or axillary lymphadenopathy Results & Data Results & Data Vital Signs (Past 12 Hours) Vital Signs Temp Pulse Pulse Pulse Resp BP BP 06/04/24 08:14 36.6 C 62 18 132/75 06/04/24 08:00 06/04/24 07:16 60 18 06/04/24 07:00 56 L 06/04/24 04:49 36.7 C 93 H 18 112/70 Pulse Ox Pulse Ox O2 Del Method O2 Del Method O2 Flow Rate 06/04/24 08:14 95 Nasal Cannula 3 06/04/24 08:00 95 Room Air 06/04/24 07:16 91 Nasal Cannula 3 06/04/24 07:00 06/04/24 04:49 93 Nasal Cannula 3 Laboratory Results BMP 06/04/24 05:44 Sodium 138 Potassium 2.9 L Chloride 91 L Carbon Dioxide 39 H BUN 7 Creatinine 0.74 Glucose 125 H Calcium 9.5 Medications Administered Current Inpatient Medications Acetaminophen (Acetaminophen 325 Mg Tab) 650 mg PO QID PRN PRN Reason: pain/fever Stop: 06/27/24 06:07 Last Admin: 06/04/24 10:05 Dose: 650 mg Albuterol (Albuterol Hfa 8 Gm Inhaler (Combivent Respimat P&T Subs)) 1 puffs INH TIDR SAHIL; Protocol Stop: 06/27/24 12:59 Last Admin: 06/04/24 07:07 Dose: 1 puffs Allopurinol (Allopurinol 100 Mg Tab) 200 mg PO DAILY [facility] Stop: 06/27/24 08:59 Last Admin: 06/04/24 10:06 Dose: 200 mg Citalopram Hydrobromide (Citalopram 20 Mg Tab) 20 mg PO DAILY [facility] Stop: 06/27/24 08:59 Last Admin: 06/04/24 10:08 Dose: 20 mg Clopidogrel Bisulfate (Clopidogrel Bisulfate 75 Mg Tab) 75 mg PO DAILY [facility] Stop: 06/27/24 08:59 Last Admin: 06/04/24 10:08 Dose: 75 mg Docusate Sodium (Docusate Sodium 100 Mg Cap) 100 mg PO HS [facility] Stop: 06/27/24 20:59 Last Admin: 06/03/24 20:43 Dose: 100 mg Duloxetine HCl (Duloxetine Hcl 60 Mg Cap) 60 mg PO DAILY [facility] Stop: 06/27/24 08:59 Last Admin: 06/04/24 10:08 Dose: 60 mg Enoxaparin Sodium (Enoxaparin Inj 40 Mg/0.4 Ml Syr) 40 mg SQ QAM [facility] Stop: 06/27/24 08:59 Last Admin: 06/04/24 10:15 Dose: Not Given Finasteride (Finasteride 5 Mg Tab) 5 mg PO DAILY [facility] Stop: 06/27/24 08:59 Last Admin: 06/04/24 10:09 Dose: 5 mg Furosemide (Furosemide 40 Mg Tab) 40 mg PO [id number] [facility] Stop: 06/27/24 16:59 Last Admin: 06/04/24 10:07 Dose: 40 mg Ipratropium [place] (Ipratropium Hfa Inhaler (Combivent Respimat P&T Subs)) 1 puffs INH TIDR SAHIL; Protocol Stop: 06/27/24 12:59 Last Admin: 06/04/24 07:08 Dose: 1 puffs Lactobacillus Acidophilus (Advanced Probiotic 625 Mg Capsule) 1,250 mg PO DAILY [facility] Stop: 06/27/24 08:59 Last Admin: 06/04/24 10:07 Dose: 1,250 mg Levothyroxine Sodium (Levothyroxine Sodium 112 Mcg Tablet) 112 mcg PO DAILYBB [facility] Stop: 06/27/24 06:29 Last Admin: 06/04/24 06:03 Dose: 112 mcg Melatonin (Melatonin 3 Mg Tab) 3 mg PO HS PRN PRN Reason: Sleep Stop: 06/28/24 00:39 Last Admin: 06/02/24 20:42 Dose: 3 mg Montelukast Sodium (Montelukast Sodium 10 Mg Tablet) 10 mg PO QAM [facility] Stop: 06/27/24 08:59 Last Admin: 06/04/24 10:07 Dose: 10 mg Oxybutynin Chloride (Oxybutynin Chloride Xl 5 Mg Tabcr) 5 mg PO DAILY [facility] Stop: 06/27/24 08:59 Last Admin: 06/04/24 10:07 Dose: 5 mg Pantoprazole Sodium (Pantoprazole 40 Mg Tab) 40 mg PO QAM [facility] Stop: 06/27/24 08:59 Last Admin: 06/04/24 10:07 Dose: 40 mg Propranolol HCl (Propranolol Hcl 20 Mg Tab) 20 mg PO TID [facility] Stop: 06/27/24 08:59 Last Admin: 06/04/24 10:07 Dose: 20 mg Rosuvastatin Calcium (Rosuvastatin Calcium 5 Mg Tab) 5 mg PO QAM [facility] Stop: 06/27/24 08:59 Last Admin: 06/04/24 10:07 Dose: 5 mg Tamsulosin HCl (Tamsulosin Hcl 0.4 Mg Cap) 0.4 mg PO [facility] Stop: 06/27/24 20:59 Last Admin: 06/03/24 20:43 Dose: 0.4 mg
[2024-06-04] MEDS: POTASSIUM CHLORIDE CRTAB 20 MEQ TABCR PO STA (11:35)
[2024-06-04] MEDS: POTASSIUM CHLORIDE / WTR 10 MEQ/100 ML PLCT IV SCH (11:35)
[2024-06-04 11:43] VITALS: TEMP 97.5
[2024-06-04 15:01] VITALS: RESP 18; O2SAT 94
[2024-06-04 15:06] VITALS: BP 130/85
[2024-06-04 15:07] LABS: BUN Creatinine Ratio 10.8 (10-20); Calcium 9.6 mg/dl (8.6-10.3); Creatinine Clr Calc Pharmacy 59.7 ml/min; Potassium 3.7 mmol/L (3.5-5.1)
[2024-06-04 15:58] VITALS: PULSE 74
--- NOTE | 2024-06-05 07:16 | Discharge Summary ---
Date of Service June 05, 2024 Admission HPI Per Admitting Provider History obtained from patient and records. 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 Patient home oxycodone discontinued due to confusion. Patient discharged to [facility] for rehab where he stayed for 3 days. Few days history of dysuria symptoms without fever or chills. No hematuria. Patient slid off the chair and had had trouble getting up today. Denies head trauma, LOC. No chest pain. Usual SOB and cough symptoms. Patient denies weight gain. O2 sats 80s upon EMS arrival. MEDICAL HISTORY: As above. SURGERIES: Hernia surgery, foot surgery, ESWL, tonsillectomy, cataract surgeries, urologic procedures FAMILY HISTORY: Lung cancer, DM PERSONAL SOCIAL HISTORY: Past tobacco use. 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 Admission Exam Per Admitting Provider Physical Exam: GENERAL: Slightly anxious, episodic tachypnea SKIN: Normal color, warm HEENT: [place] palpebral conjunctivae, no ptosis, dry buccal mucosa, nasal cannula in place NECK : Supple, no tenderness CHEST : Decreased breath sounds, no wheezes, no tenderness HEART : RRR, no obvious murmurs ABDOMEN: Umbilical hernia, some distention, nontender EXTREMITIES : Minimal LE swelling, no LE tenderness, no other conspicuous deformities noted NEUROLOGIC : Coherent, no facial asymmetry, rest tremors, gait and stance not assessed Principal Diagnosis Acute and chronic respiratory failure- improved to baseline, complicated UTI, essential tremors,HTN Discharge Exam Sitting on a chair without any acute distress Constitutional well developed, well nourished, + ill appearing and average body habitus Eyes PERRL, conjunctivae normal, anicteric sclerae ENMT external ear and nose normal, oropharynx normal Neck trachea midline, no thyromegaly Respiratory no respiratory distress Auscultation: lungs clear to auscultation bilaterally Cardiovascular Rate/Rhythm: regular rate and regular rhythm; not tachycardic Heart Sounds: normal S1 and normal S2; no murmur Extremities: no edema Gastrointestinal (Abdomen) Inspection/Auscultation: normal bowel sounds; abdomen not distended Percussion/Palpation: abdomen soft; abdomen nontender Neurologic normal touch/pain/proprioception and moves all extremities; no focal motor deficits Lymphatic no cervical or axillary lymphadenopathy Discharge Data Allergies Allergy/AdvReac Type Severity Reaction Status Date / Time tramadol AdvReac Intermediate Hallucinati Verified 03/12/23 02:38 ng grapefruit AdvReac Unknown WAS TOLD Verified 03/12/23 02:38 NOT TO TAKE BECAUSE OF CHOLESTROL PILL. Consultations 05/28/24 04:50 ED Decision to Admit Stat Ordered Studies 05/28/24 02:59 CT head/brain wo con Stat Hospital Course (1) Acute and chronic respiratory failure: H/O Restrictive lung disease/granulomatous lung disease on home O2 History of chronic right-sided heart failure, EZEQUIEL (CPAP intolerance), nocturnal hypoxemia nasal cannula at night pulmonary congestion on imaging Feels a little better since admission and has been requiring 3 L to maintain saturation Ambulatory dysfunction/functional disability Will need PT and OT evaluation prior to discharge He has been much better today and seems to be more alert awake and communicating Has had physical therapy and recommended rehab He is clinically much better today and denies any significant symptoms Clinically much better and denies any shortness of breath at rest Requiring 4 L to maintain saturation and awaiting placement He has been stable and saturating normally on room air Will get BMP checked tomorrow-kidney function remains stable and will be given potassium supplement Remains stable without any significant symptoms Will be discharged home this afternoon Essential tremors Has been bothering him very much Has been on propranolol 20 mg 3 times daily tremor seems to be controlled His tremors are much better Complicated UTI, history of BPH, no sepsis for now history Has been started on intravenously Zosyn given the history of Enterococcus infection in the past Urine culture is negative so far Will continue current antibiotic and await Urine culture remains negative and blood cultures have been negative Will discontinue antibiotic for a total of 5 days His antibiotic course is done and no more antibiotic from tomorrow Course of antibiotic is done CAD status post stenting Mild MR Remains stable without any cardiac symptoms HTN, stable Continue current medications Other significant medical conditions are as below and remained stable: Hypothyroidism, euthyroid as of last month's TSH Cchronic anemia, hemoglobin at baseline essential tremors on propranolol Hyperglycemia likely prediabetes, hemoglobin A1c of 6 from December 2023 Past tobacco abuse Social service re: placement, patient considering [facility] DVT prophylaxis. Lovenox subcu Full code Patient daughter requesting updates from providers. Ms. Ciara Mcgrath, contact #[phone]. Likely discharge tomorrow in a facility Total Time Total Time Spent Total Time Spent (In Minutes): 35 minutes Discharge Plan Discharge Items Patient Disposition: Transfer Intermediate Fac Reason For Visit: RESO FAILURE, COMP UTI Discharge Diagnosis: Acute and chronic respiratory failure- improved to baseline, complicated UTI, essential tremors,HTN Condition on Discharge: Fair Activity: As commented below Activity Comment: Continue PT and OT Non-emergency contact: Primary Care Provider Call non-emergency contact if: you have any medication questions and your symptoms worsen Follow-up/Referrals: Jennifer Sarkar MD [Primary Care Provider] - (Please make an appointment with your PCP within 7 days following discharge from the facility) Diet: Heart Healthy Addtl Attending Provider Instructions: Please take precautions to avoid falls Take your medications as advised No change of medications Please keep appointment with a healthcare provider Continue to take your oxygen Pending Studies at Discharge: No Stand-Alone Forms: My [employer] Skilled Items Patient informed of condition?: Yes DNR: No Discharge Level of Care: Skilled Communicable Disease: No Discharge Prognosis: Stable Lines: None Urinary Catheter: No Medications and DC Order Prescriptions: Continued acetaminophen [Tylenol Extra Strength] 500 mg Tablet 1,000 mg PO Q8H PRN (Reason: fever or pain) Qty: 90 0RF tamsulosin 0.4 mg capsule 0.4 mg PO HS Qty: 30 0RF montelukast [Singulair] 10 mg Tablet 10 mg PO QAM Qty: 30 0RF propranolol 20 mg Tablet 20 mg PO TID Qty: 90 0RF levothyroxine 112 mcg tablet 112 mcg PO DAILYBB Qty: 30 0RF rosuvastatin 5 mg tablet 5 mg PO QAM Qty: 30 0RF clopidogrel [Plavix] 75 mg tablet 75 mg PO DAILY allopurinol 100 mg tablet 200 mg PO DAILY spironolactone 25 mg tablet 25 mg PO DAILY citalopram 20 mg tablet 20 mg PO DAILY dutasteride 0.5 mg capsule 0.5 mg PO DAILY duloxetine 60 mg capsule,delayed release(DR/EC) 60 mg PO DAILY solifenacin 5 mg tablet 5 mg PO DAILY docusate sodium 100 mg capsule 100 mg PO HS albuterol sulfate 90 mcg/actuation HFA aerosol inhaler 2 inh INHALATION Q6 PRN (Reason: Wheezing) Combivent Respimat 20-100 mcg/actuation mist 1 puff INHALATION TID furosemide 40 mg tablet 40 mg PO BID pantoprazole 20 mg tablet,delayed release (DR/EC) 20 mg PO QAM Discharge Orders: Discharge Order (Routine); Ordered 06/04/24 Ordered By: Tony Giang Admission Data Admit Date/Time: 05/28/24 05:10 Attending Provider: oTny Giang Admit Provider: Mele Aguila Primary Care Provider: Jennifer Sarkar Other Providers: Mele Aguila; Barber Duenas; [facility] Other Interventions: Discharge Summary Assessment (RN) Last Done: 06/04/24 15:02
== END 2024-06-04 06:15 | DRG 189 ==
LOC: ED 02:40 → 2W 05:10 → SUATTDRO 05:10 → 2W 10:22 → 2N 06-03 18:23

== ENCOUNTER 2024-06-27 11:40 | Inpatient (IN) ==
--- NOTE | 2024-06-27 12:00 | Emergency Department Note ---
Impression & Plan Leukocytosis, Ambulatory dysfunction, Generalized weakness, Chronic hypoxic respiratory failure, on home oxygen therapy, Fall ED Provider Note NAME: BLANCA MAHONEY AGE: 83 SEX: M : 1940 ARRIVES VIA: Ambulance INFORMANT: Patient, nursing report ED PROVIDER(S): Collins Al MD CHIEF COMPLAINT: Weakness, fall, back pain MEDICAL DECISION MAKING: Patient's blood work showed a patient presents due to concern for weakness. IV was established and blood work was obtained. Initial white count of 15 but the patient's most recent white count was 15 on June 17. Patient with a normal hemoglobin and platelet count kidney function is unremarkable. Urinalysis does not show obvious infection. The patient's chest x-ray unremarkable. The patient did have back pain so did have thoracic and lumbar spine films completed. Patient did have x-ray of the ribs shows possible nondisplaced fracture of the left 10th rib. Patient did have more posterior rib pain. Left wrist is negative. Given the patient's weakness living by himself do not believe the patient is suitable for home at this time. I did speak the on-call hospital service Dr. Lozano and the patient was admitted to the medicine service. Discussion w/ other healthcare providers: Lupe Walker PA-C the patient was admitted by Dr. Mcgregor Prior /Outside records reviewed: None Differential diagnosis: Infection, dehydration, metabolic abnormality, hypo/hyperglycemia, electrolyte imbalance, anemia, UTI, pneumonia, thyroid dysfunction among others were considered. Diagnostics, as interpreted by me: ECG: Sinus with PVCs, rate of 69 normal intervals normal axis no obvious ST elevations Q-wave noted in V2. Cardiac monitoring: An order was placed for continuous cardiac monitoring. The monitor shows a rate of 72 with sinus rhythm. Patient was placed on pulse oximetry Medical decision rules: None Imaging studies: I informally interpreted the patient's chest x-ray without obvious pneumonia with formal report to follow. HPI: Patient presents due to concern for fall. The patient reportedly was running his medications last evening when he got up off the toilet started get lightheaded fell toward the sink and then it is back toward the tub. The patient was unable to get up on his own. Patient does have a known history of interstitial lung disease and is on chronic 4 L at all times. He states that he has had cough but it has been nonproductive. Patient denies any head strike or LOC. They report he was some tapping on the floor and his neighbor went up to go check on him and found him on the ground. Patient reports that he does have some back pain. Patient also notes some left wrist pain. PAST MEDICAL HISTORY: See Below PAST SURGICAL HISTORY: See Below SOCIAL HISTORY: See Below HOME MEDICATIONS: See Below ALLERGIES: See Below VITALS: See Below PHYSICAL EXAMINATION: GENERAL: NAD, non-toxic. Wearing glasses. EYE EXAM: Normal conjunctiva. PERRL, no anisocoria and EOM's grossly intact w/o pain. OROPHARYNX: Moist mucus membranes, missing several of his bottom teeth. NECK: Trachea midline, no stridor. Supple, no nuchal rigidity, no adenopathy, non-tender. No signs of meningismus. FROM of the neck with good chin to chest and neck extension. LUNGS: Clear to auscultation. Normal chest wall mechanics. Chest: No reproducible anterior chest wall pain but posterior left-sided rib pain. HEART: NSR, no MRG. ABDOMEN: Abdomen soft, non-tender, no masses, no rebound or guarding. BACK: No CVA TTP. Mild lower thoracic upper lumbar TTP, significant scoliosis noted. SKIN: No rashes and no bruising. UPPER EXTREMITIES: Upper extremities are grossly normal. Mild pain to the left wrist with an aged bruise. No obvious deformity. LOWER EXTREMITIES: Grossly normal, no edema. No TTP or deformity. NEURO EXAM: Awake and alert, follows commands, no obvious facial asymmetry, normal speech, moves all 4 extremities. Past Med/Surg History Problem List (Updated 06/28/24 @ 15:01 by Collins Al MD) Abnormal urinalysis Atrial tachycardia (Acute) Bilateral kidney stones (Acute) Chronic respiratory failure (Acute) Leukocytosis (Acute) Acute constipation (Acute) Fall (Acute) (HFpEF) heart failure with preserved ejection fraction BPH (benign prostatic hyperplasia) Ambulatory dysfunction (Acute) Weakness (Acute) Back pain Chronic respiratory failure (Acute) Dizziness (Acute) Fall (Acute) Kidney stones ONE PRESENT/NO PROBLEMS WITH Hematuria Ambulatory dysfunction (Acute) Chronic hypoxic respiratory failure, on home oxygen therapy (Acute) Fall (Acute) Dizziness (Acute) Leukocytosis (Acute) Ambulatory dysfunction (Acute) Generalized weakness (Acute) COPD (chronic obstructive pulmonary disease) (Acute) Physical deconditioning (Acute) Dependence on supplemental oxygen (Acute) Fall Elevated hemidiaphragm Pneumonia Scoliosis (Acute) Right heart failure Hypokalemia Acute and chronic respiratory failure Chronic obstructive pulmonary disease Depression Hyperlipidemia Hypertension Shortness of breath (Acute) Pulmonary edema (Acute) Acute exacerbation of CHF (congestive heart failure) (Acute) Encounter for pre-operative examination Spinal stenosis (Chronic) Encounter for pre-operative examination Acute respiratory failure (Acute) Shortness of breath Leukocytosis Aspiration into airway Medical History Mood disorder Bilateral shoulder pain Fall Acute on chronic respiratory failure with hypoxemia Acute and chronic respiratory failure with hypercapnia Pulmonary embolism COVID-19 Choking REASON FOR UPCOMING PROCEDURE PER PT Ankle swelling PT PLANS TO DISCUSS WITH DR PT REPORTS DR HAD HIM STOP FLUID PILL AND NOT SURE WHY Infected dental caries Subperiosteal abscess of jaw Acute periodontal abscess Pain, dental Generalized muscle weakness Lower urinary tract symptoms (LUTS) Hypoxia DVT prophylaxis Chronic right-sided heart failure Fall HX, NOT RECENTLY Cervical spine fracture LAST SUMMER NO LIMITATIONS SOB (shortness of breath) on exertion with wheezing Scoliosis Chronic back pain GERD (gastroesophageal reflux disease) Hypothyroidism On anticoagulant therapy plavix daily 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 Myocardial Infarction 2009 Sleep apnea uses 4 L N/C MOSTLY ALL THE TIME On home oxygen therapy 3-4 L CONTINUOUS MOSTLY, AND PRN PER PT COPD (chronic obstructive pulmonary disease) Dyslipidemia HTN (hypertension) Surgical History Hx of oral surgery (07/05/21) Multiple Teeth Extractions for Facial Infection - Sin Chacko DMD NO CURRENT INFECTION PER PT (PAT CALL 08/18/21) History of testicular surgery "sac full of blood in testicle drained at 26 yrs old" History of heart artery stent x1 2009--[facility] [place] History of open reduction and internal fixation (ORIF) procedure left foot fx/pinky toe fx--hardware in place History of lithotripsy Hx of vasectomy Hx of right inguinal hernia repair History of colonoscopy History of esophagogastroduodenoscopy (EGD) History of wisdom tooth extraction History of tonsillectomy History of bilateral cataract extraction History of cardiac cath 2009 @ [facility] [place] with 1 stent--follows with Dr. 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 Home Meds Home Medications Medication Instructions Recorded Confirmed allopurinol 100 mg tablet 200 mg PO DAILY 04/20/24 06/27/24 citalopram 20 mg tablet 20 mg PO DAILY 04/20/24 06/27/24 clopidogrel 75 mg tablet (Plavix) 75 mg PO DAILY 04/20/24 06/27/24 duloxetine 60 mg capsule,delayed 60 mg PO DAILY 04/20/24 06/27/24 release dutasteride 0.5 mg capsule 0.5 mg PO DAILY 04/20/24 06/27/24 solifenacin 5 mg tablet 5 mg PO DAILY 04/20/24 06/27/24 spironolactone 25 mg tablet 12.5 mg PO MOWEFR 04/20/24 06/27/24 albuterol sulfate 90 mcg/actuation 2 inh inhalation Q6 PRN Wheezing 05/28/24 06/27/24 aerosol inhaler docusate sodium 100 mg capsule 100 mg PO DAILY 05/28/24 06/27/24 furosemide 40 mg tablet 40 mg PO BID 05/28/24 06/27/24 ipratropium 20 mcg-albuterol 100 1 puff inhalation TID 05/28/24 06/27/24 mcg/actuation mist for inhalation (Combivent Respimat) pantoprazole 20 mg tablet,delayed 20 mg PO QAM 05/28/24 06/27/24 release Previous Rx's Medication Instructions Recorded acetaminophen 500 mg tablet 1,000 mg (2 x 500 mg) PO Q8H PRN 07/13/23 (Tylenol Extra Strength) fever or pain #90 tabs levothyroxine 112 mcg tablet 112 mcg PO DAILYBB #30 tabs 07/13/23 montelukast 10 mg tablet 10 mg PO QAM #30 tabs 07/13/23 (Singulair) propranolol 20 mg tablet 20 mg PO TID #90 tabs 07/13/23 rosuvastatin 5 mg tablet 5 mg PO QAM #30 tabs 07/13/23 tamsulosin 0.4 mg capsule 0.4 mg PO HS #30 caps 07/13/23 Results & Data (ED) Vital Signs Vital Signs - 24 hr 06/27/24 15:00 Pulse Rate [Apical] 63 Respiratory Rate 20 Blood Pressure [Right Arm] 110/73 Blood Pressure Mean [Right Arm] 85 Pulse Oximetry 93 Oxygen Delivery Method Nasal Cannula Oxygen Flow Rate 4 Home Medications Current Medication List: was personally reviewed by me Laboratory Data Attestation: I reviewed the patient's lab results. 06/28/24 08:23 06/28/24 08:23 Lab Results 06/27/24 06/27/24 Range/Units 12:25 14:05 WBC 15.91 H (4.8-10.8) K/ul RBC 5.01 (4.70-6.10) M/uL Hgb 15.4 (14.0-18.0) g/dl Hct 45.7 (42.0-52.0) % MCV 91.2 (80.0-100.0) fL MCH 30.7 (25.0-34.0) pg MCHC 33.7 (32.0-36.0) g/dL RDW Std Deviation 46.5 H (36.4-46.3) fL RDW Coeff of Mannie 14.0 (11.5-14.5) % Plt Count 197 (130-400) K/uL MPV 9.6 (9.4-12.4) fL Immature Gran % (Auto) 0.9 % Neut % (Auto) 87.1 % Lymph % (Auto) 7.0 % [place] % (Auto) 4.8 % Eos % (Auto) 0.0 % Baso % (Auto) 0.2 % Neut # (Auto) 13.85 H (1.40-6.50) K/uL Lymph # (Auto) 1.11 L (1.20-3.40) K/uL [place] # (Auto) 0.77 H (0.11-0.59) K/uL Eos # (Auto) 0.00 (0.00-0.50) K/uL Baso # (Auto) 0.03 (0.00-0.20) K/uL Immature Gran # (Auto) 0.15 (0.01-0.20) K/uL PT 10.9 (9.0-12.0) Seconds INR 1.0 (0.9-1.1) Sodium 138 (136-145) mmol/L Potassium 3.4 L (3.5-5.1) mmol/L Chloride 92 L (98-107) mmol/L Carbon Dioxide 37 H (21-32) mmol/L Anion Gap 9 (3-11) BUN 12 (6-23) mg/dl Creatinine 0.80 (0.6-1.4) mg/dl Est Cr Clr Drug Dosing 61.9 ml/min eGFR 88.36 BUN/Creatinine Ratio 15.0 (10-20) Glucose 146 H (70-99(Fasting)) mg/dl Calcium 10.4 H (8.6-10.3) mg/dl Magnesium 1.7 (1.7-2.4) mg/dl Total Bilirubin 0.9 (0.2-1.0) mg/dl AST 19 (13-39) U/L ALT 10 (7-52) U/L Alkaline Phosphatase 113 H (34-104) U/L Total Creatine Kinase 209 (30-223) U/L Total Protein 8.1 (6.0-8.3) gm/dl Albumin 4.5 (3.4-5.0) gm/dl Globulin 3.6 (2.5-4.0) gm/dl Albumin/Globulin Ratio 1.3 (0.9-2) TSH 0.204 L (0.300-4.500) uIu/ml Free T4 1.33 (0.61-1.60) ng/dl Urine Color Yellow Urine Appearance Clear (Clear) Urine pH 6.5 (4.5-7.5) Ur Specific [place] 1.015 (1.000-1.030) Urine Protein 2+ H (Negative) Urine Glucose (UA) Negative (Negative) Urine Ketones Trace H (Negative) Urine Blood 3+ H (Negative) Urine Nitrite Negative (Negative) Urine Bilirubin Negative (Negative) Urine Urobilinogen Negative (Negative) Ur Leukocyte Esterase 1+ H (Negative) Urine WBC (Auto) 11-20 H (0-5) /hpf Urine RBC (Auto) >20 H (0-2) /hpf U Hyaline Cast (Auto) 3-5 H (0-2) /lpf U Epithel Cells (Auto) 3-5 H (0-2) /hpf Urine Bacteria (Auto) None Seen (None Seen) Administered Medications Acetaminophen (Acetaminophen 325 Mg Tab) 650 mg PO Q4H PRN PRN Reason: Pain or Fever Stop: 07/27/24 16:46 Last Admin: 06/28/24 14:14 Dose: 650 mg Documented By: JIE Albuterol (Albuterol Hfa 8 Gm Inhaler (Combivent Respimat P&T Subs)) 1 puffs INH QIDR [facility]; Protocol Stop: 07/27/24 18:59 Last Admin: 06/28/24 12:19 Dose: 1 puffs Documented By: Admin: 06/28/24 07:34 Dose: 1 puffs Documented By: Admin: 06/27/24 20:18 Dose: 1 puffs Documented By: VASYL Allopurinol (Allopurinol 100 Mg Tab) 200 mg PO DAILY [facility] Stop: 07/28/24 08:59 Last Admin: 06/28/24 08:41 Dose: 200 mg Documented By: JEI Citalopram Hydrobromide (Citalopram 20 Mg Tab) 20 mg PO DAILY [facility] Stop: 07/28/24 08:59 Last Admin: 06/28/24 08:42 Dose: 20 mg Documented By: JIE Clopidogrel Bisulfate (Clopidogrel Bisulfate 75 Mg Tab) 75 mg PO DAILY [facility] Stop: 07/28/24 08:59 Last Admin: 06/28/24 08:41 Dose: 75 mg Documented By: JIE Docusate Sodium (Docusate Sodium 100 Mg Cap) 100 mg PO DAILY [facility] Stop: 07/28/24 08:59 Last Admin: 06/28/24 08:46 Dose: 100 mg Documented By: JIE Duloxetine HCl (Duloxetine Hcl 60 Mg Cap) 60 mg PO DAILY [facility] Stop: 07/28/24 08:59 Last Admin: 06/28/24 08:41 Dose: 60 mg Documented By: JIE Enoxaparin Sodium (Enoxaparin Inj 40 Mg/0.4 Ml Syr) 30 mg SQ Q24H [facility] Stop: 07/27/24 16:46 Last Admin: 06/27/24 17:50 Dose: Not Given Documented By: JIE Finasteride (Finasteride 5 Mg Tab) 5 mg PO DAILY [facility] Stop: 07/28/24 08:59 Last Admin: 06/28/24 08:41 Dose: 5 mg Documented By: JIE Furosemide (Furosemide 40 Mg Tab) 40 mg PO BID17 [facility] Stop: 07/27/24 16:59 Last Admin: 06/28/24 08:42 Dose: 40 mg Documented By: Admin: 06/27/24 17:46 Dose: 40 mg Documented By: JIE Ceftriaxone Sodium (Rocephin) 2,000 mg in 50 mls @ 100 mls/hr IV Q24H [facility] Stop: 06/30/24 14:59 Last Admin: 06/28/24 14:17 Dose: 100 mls/hr Documented By: JIE Ipratropium [place] (Ipratropium Hfa Inhaler (Combivent Respimat P&T Subs)) 1 puffs INH QIDR [facility]; Protocol Stop: 07/27/24 18:59 Last Admin: 06/28/24 12:19 Dose: 1 puffs Documented By: Admin: 06/28/24 07:34 Dose: 1 puffs Documented By: Admin: 06/27/24 20:19 Dose: 1 puffs Documented By: VASYL Levothyroxine Sodium (Levothyroxine Sodium 100 Mcg Tablet) 100 mcg PO DAILYBB [facility] Stop: 07/28/24 06:29 Last Admin: 06/28/24 06:09 Dose: 100 mcg Documented By: AKIRA Lidocaine (Lidocaine 5% 1 Patch) 1 patch TD QAM [facility] Stop: 07/28/24 08:59 Last Admin: 06/28/24 08:43 Dose: 1 patch Documented By: JIE [place] (Remove Lidoderm Patch) 1 each N/A DAILY@2100 [facility] Stop: 07/27/24 20:59 Last Admin: 06/27/24 20:29 Dose: 1 each Documented By: AKIRA Stanton (Remove Lidoderm Patch) 1 each N/A DAILY@2100 [facility] Stop: 07/27/24 20:59 Last Admin: 06/27/24 20:29 Dose: 1 each Documented By: AKIRA Montelukast Sodium (Montelukast Sodium 10 Mg Tablet) 10 mg PO [facility] Stop: 07/28/24 08:59 Last Admin: 06/28/24 08:41 Dose: 10 mg Documented By: JIE Oxybutynin Chloride (Oxybutynin Chloride Xl 5 Mg Tabcr) 5 mg PO DAILY [facility] Stop: 07/28/24 08:59 Last Admin: 06/28/24 08:41 Dose: 5 mg Documented By: JIE Pantoprazole Sodium (Pantoprazole 40 Mg Tab) 20 mg PO [facility] Stop: 07/28/24 08:59 Last Admin: 06/28/24 08:41 Dose: 20 mg Documented By: JIE Potassium Chloride (Potassium Chloride Crtab 20 Meq Tabcr) 20 meq PO [facility] Stop: 07/28/24 08:59 Last Admin: 06/28/24 08:46 Dose: 20 meq Documented By: JIE Propranolol HCl (Propranolol Hcl 20 Mg Tab) 20 mg PO TID [facility] Stop: 07/27/24 20:59 Last Admin: 06/28/24 13:09 Dose: 20 mg Documented By: Admin: 06/28/24 08:42 Dose: 20 mg Documented By: Admin: 06/27/24 20:28 Dose: 20 mg Documented By: AKIRA Rosuvastatin Calcium (Rosuvastatin Calcium 5 Mg Tab) 5 mg PO [facility] Stop: 07/28/24 08:59 Last Admin: 06/28/24 08:41 Dose: 5 mg Documented By: JIE Tamsulosin HCl (Tamsulosin Hcl 0.4 Mg Cap) 0.4 mg PO [facility] Stop: 07/27/24 20:59 Last Admin: 06/27/24 20:28 Dose: 0.4 mg Documented By: AKIRA Discontinued Medications Sodium Chloride (Nss) 500 mls @ 999 mls/hr IV .Q31M [facility] Stop: 06/27/24 12:45 Last Infusion: 06/27/24 14:38 Dose: Infused Documented By: Admin: 06/27/24 14:07 Dose: 999 mls/hr Documented By: YANI Acetaminophen (Ofirmev) 1,000 mg in 100 mls @ 400 mls/hr IV NOW STA Stop: 06/27/24 13:24 Last Infusion: 06/27/24 14:22 Dose: Infused Documented By: Admin: 06/27/24 14:07 Dose: 400 mls/hr Documented By: YANI Ceftriaxone Sodium (Rocephin) 2,000 mg in 50 mls @ 100 mls/hr IV NOW STA Stop: 06/27/24 15:52 Last Infusion: 06/27/24 16:14 Dose: Infused Documented By: LUIS ALBERTO Admin: 06/27/24 15:44 Dose: 100 mls/hr Documented By: LUIS ALBERTO Lidocaine (Lidocaine 5% 1 Patch) 1 patch TD NOW STA Stop: 06/27/24 15:29 Last Admin: 06/27/24 15:44 Dose: 1 patch Documented By: LUIS ALBERTO Potassium Chloride (Potassium Chloride Crtab 20 Meq Tabcr) 20 meq PO NOW STA Stop: 06/27/24 15:21 Last Admin: 06/27/24 15:44 Dose: 20 meq Documented By: LUIS ALBERTO Imaging Data Radiologist's Impression: Lumbar Spine X-Ray 06/27/24 12:13 XR lumbar spine 2-3V CLINICAL HISTORY: pain post fall COMPARISON STUDY: 12/26/2023 FINDINGS: Stable severe left convex upper lumbar scoliosis. Stable severe diffuse degenerative changes. No acute fracture or subluxation seen. Stable left lower quadrant calcification. IMPRESSION: No acute fracture seen at the lumbar spine. ACT 112: Negative or not required by law. Electronically signed by: Salvador Figueroa M.D. 06/27/2024 2:02 PM Ribs w/Chest X-Ray 06/27/24 12:13 XR ribs LT min 2V w CXR1V CLINICAL HISTORY: L posterior rib pain . Fall. COMPARISON: 05/28/2024 FINDINGS: Stable severe scoliosis. Stable cardiomegaly without pulmonary vascular congestion. Stable mild elevation of the right hemidiaphragm. Stable mild atelectasis or scarring at the right base. No consolidation or pleural effusion. No pneumothorax. Stable small granuloma at the right midlung. No displaced rib fractures seen. There is a possible nondisplaced fracture anteriorly at the left 10th rib. IMPRESSION: Possible nondisplaced fracture anterior left 10th rib with no pneumothorax. ACT 112: Negative or not required by law. Electronically signed by: Salvador Figueroa M.D. 06/27/2024 2:05 PM Thoracic Spine X-Ray 06/27/24 12:13 XR thoracic spine 3V routine CLINICAL HISTORY: midline pain COMPARISON STUDY: 10/14/2022 FINDINGS: Stable severe right convex scoliosis. Stable mild height loss at multiple mid thoracic vertebral bodies. No acute fracture or subluxation seen. IMPRESSION: No acute fracture seen at the thoracic spine. ACT 112: Negative or not required by law. Electronically signed by: Salvador Figueroa M.D. 06/27/2024 2:03 PM Wrist X-Ray 06/27/24 12:13 XR wrist LT min 3V routine CLINICAL HISTORY: pain post fall COMPARISON: None FINDINGS: No fracture or dislocation seen. There are mild degenerative changes at the first CMC joint without erosions. IMPRESSION: No fracture seen. ACT 112: Negative or not required by law. Electronically signed by: Salvador Figueroa M.D. 06/27/2024 2:07 PM Discharge Plan Visit Data Chief Complaint: Fall Stated Complaint: FALL, ED Provider: Collins Al Discharge Problem: Leukocytosis, Ambulatory dysfunction, Generalized weakness, Chronic hypoxic respiratory failure, on home oxygen therapy, Fall Patient Disposition: Admitted As Inpatient Condition: Fair Discharge Instructions Interventions: ED Discharge Assessment Last Done: 06/27/24 16:15 Discharge Problem: Leukocytosis Qualifiers: Leukocytosis type: unspecified Qualified Code(s): D72.829 - Elevated white blood cell count, unspecified Fall Qualifiers: Encounter type: initial encounter Qualified Code(s): W19.XXXA - Unspecified fall, initial encounter
[2024-06-27 12:57] LABS: Basophils # (auto) 0.03 K/uL (0.00-0.20); Basophils % (auto) 0.2 %; Hematocrit (blood only) 45.7 % (42.0-52.0); Hemoglobin 15.4 g/dl (14.0-18.0); Immature Granulocytes # (auto) 0.15 K/uL (0.01-0.20); Immature Granulocytes % (auto) 0.9 %; Lymphocytes # (auto) 1.11 K/uL (1.20-3.40); Mean Corpuscular Hemoglobin 30.7 pg (25.0-34.0); Mean Corpuscular Hgb Conc 33.7 g/dL (32.0-36.0); Mean Corpuscular Volume 91.2 fL (80.0-100.0); Mean Platelet Volume 9.6 fL (9.4-12.4); Monocytes # (auto) 0.77 K/uL (0.11-0.59); Monocytes % (auto) 4.8 %; Neutrophils # (auto) 13.85 K/uL (1.40-6.50); Neutrophils % (auto) 87.1 %; Platelet Count 197 K/uL (130-400); RDW Standard Deviation 46.5 fL (36.4-46.3); Red Blood Count 5.01 M/uL (4.70-6.10); White Blood Count 15.91 K/ul (4.8-10.8)
[2024-06-27 13:16] LABS: Albumin Globulin Ratio 1.3 (0.9-2); Albumin Level 4.5 gm/dl (3.4-5.0); Bilirubin,Total 0.9 mg/dl (0.2-1.0); Calcium 10.4 mg/dl (8.6-10.3); Creatinine Clr Calc Pharmacy 61.9 ml/min; Globulin 3.6 gm/dl (2.5-4.0); Magnesium 1.7 mg/dl (1.7-2.4); Potassium 3.4 mmol/L (3.5-5.1); Total Protein 8.1 gm/dl (6.0-8.3)
[2024-06-27 13:30] LABS: Thyroid Stimulating Hormone 0.204 uIu/ml (0.300-4.500)
[2024-06-27 13:32] LABS: Prothrombin Time 10.9 Seconds (9.0-12.0)
--- NOTE | 2024-06-27 14:03 | XRay Report ---
XR lumbar spine 2-3V CLINICAL HISTORY: pain post fall COMPARISON STUDY: 12/26/2023 FINDINGS: Stable severe left convex upper lumbar scoliosis. Stable severe diffuse degenerative change s. No acute fracture or subluxation seen. Stable left lower quadrant calcification. IMPRESSION: No acute fracture seen at the lumbar spine. ACT 112: Negative or not required by law. Electronically signed by: Salvador Figueroa M.D. 06/27/2024 2:02 PM
[2024-06-27 14:05] LABS: T4 Free Thyroxine 1.33 ng/dl (0.61-1.60)
--- NOTE | 2024-06-27 14:05 | XRay Report ---
XR thoracic spine 3V routine CLINICAL HISTORY: midline pain COMPARISON STUDY: 10/14/2022 FINDINGS: Stable severe right convex scoliosis. Stable mild height loss at multiple mid thoracic vert ebral bodies. No acute fracture or subluxation seen. IMPRESSION: No acute fracture seen at the thoracic spine. ACT 112: Negative or not required by law. Electronically signed by: Salvador Figueroa M.D. 06/27/2024 2:03 PM
[2024-06-27] MEDS: ACETAMINOPHEN 1,000 MG/100 ML VIAL IV STA (14:07)
[2024-06-27] MEDS: SODIUM CHLORIDE 0.9% 500 ML IV SCH (14:07)
--- NOTE | 2024-06-27 14:07 | XRay Report ---
XR ribs LT min 2V w CXR1V CLINICAL HISTORY: L posterior rib pain . Fall. COMPARISON: 05/28/2024 FINDINGS: Stable severe scoliosis. Stable cardiomegaly without pulmonary vascular congestion. Stable mild elevation of the right hemidiaphragm. Stable mild atelectasis or scarring at the right base. No consolidation or pleural effusion. No pneumothorax. Stable small granuloma at the right midlung. No displaced rib fractures seen. There is a possible nondisplaced fracture anteriorly at the left 10th r ib. IMPRESSION: Possible nondisplaced fracture anterior left 10th rib with no pneumothorax. ACT 112: Negative or not required by law. Electronically signed by: Salvador Figueroa M.D. 06/27/2024 2:05 PM
--- NOTE | 2024-06-27 14:08 | XRay Report ---
XR wrist LT min 3V routine CLINICAL HISTORY: pain post fall COMPARISON: None FINDINGS: No fracture or dislocation seen. There are mild degenerative changes at the first CMC join t without erosions. IMPRESSION: No fracture seen. ACT 112: Negative or not required by law. Electronically signed by: Salvador Figueroa M.D. 06/27/2024 2:07 PM
[2024-06-27 14:31] LABS: Appearance Urine Clear (Clear); Bacteria Urine Automated None Seen (None Seen); Bilirubin Urine Negative (Negative); Blood Urine 3+ (Negative); Color Urine Yellow; Glucose Urine UA Negative (Negative); Ketones Urine Trace (Negative); Leukocyte Esterase Urine 1+ (Negative); Nitrite Urine Negative (Negative); Protein Urine 2+ (Negative); RBC Urine Automated >20 /hpf (0-2); Specific Gravity Urine 1.015 (1.000-1.030); Urobilinogen Urine Negative (Negative); pH Urine 6.5 (4.5-7.5)
--- NOTE | 2024-06-27 15:10 | History & Physical Report ---
Date of Service June 27, 2024 Assessment & Plan (1) Fall: (2) Ambulatory dysfunction: (3) Abnormal urinalysis: (4) Chronic respiratory failure: (5) (HFpEF) heart failure with preserved ejection fraction: (6) Hyperlipidemia: (7) BPH (benign prostatic hyperplasia): Plan: Patient is 83 year old male with PMH chronic respiratory failure with hypoxia on home oxygen, hypothyroidism, hyperlipidemia, history of hypercalcemia, granulomatous lung disease, sleep apnea, restrictive lung disease, elevated hemidiaphragm, history of cad s/p stent hypertension, chronic right-sided heart failure, Schatzki's ring of the distal esophagus, idiopathic scoliosis, osteop orosis, essential tremor, depression, abnormality of gait and others listed below presented to ER with c/o losing balance fall last night and unable to get himself up. History recurrent hospital admissions for ambulatory dysfunction. #Ambulatory Dysfunction #Fall Today in ER afebrile, vitals stable. CK WNL Thoracic xray: No acute fracture seen at the thoracic spine. Lumbar xray: No acute fractures seen Ribs with CXR: Possible nondisplaced fracture anterior left 10th rib with no pneumothorax. Fall precautions PT/OT eval Anticipate pt will need acute rehab as lives home alone CBC, BMP, magnesium labs in AM #Possible Left 10th rib fracture Incentive spirometry Lidocaine patch Tylenol as needed #Abnormal UA UA:1+leuk esterase, 11-20 WBC, negative bacteria, negative nitrite Chronic leukocytosis. WBC: 15 (was 15 on ) reports some dysuria. chronic urgency and sensation incomplete bladder emptyin Urine culture pending Rocephin for now pending culture #Hypokalemia K: 3.4 Replace and monitor #Hypothyroidism TSH: 0.02 Will decrease home levothyroxine from 112mcg to 100mcg daily Will need follow up TSH in 6 weeks #Chronic respiratory failure with hypoxia, on 3 to 4 L of oxygen #Restrictive lung disease/granulomatous lung disease Oxygen requirement is at baseline 3-4 L Incentive spirometry Continue home oxygen Continue home Combivent #Chronic HFpEF Appears euvolemic Continue Lasix 40 mg BID and spironolactone Monitor volume status #Coronary artery disease #HLD S/P stent Continue Plavix, statin, propranolol #Essential tremors Continue on propranolol #BPH Continue on dutasteride and tamsulosin #Mood disorder Continue duloxetine, citalopram DVT Prophylaxis Lovenox SQ Admit med tele Full Code as per discussion with pt Follows with Dr Sarkar for routine care Pt was seen and care coordinated with Dr Mcgregor. See addendum I spent a total of 65 minutes reviewing notes, outpatient records, labs, medication, coordinating, documenting and providing care for this patient excluding time spent in the performance of separately billed services and excluding time spent by another provider/QHP. History of Present Illness Chief Complaint: Fall, unable to get up Primary Care Provider: Jennifer Sarkar MD Patient is 83 year old male with PMH chronic respiratory failure with hypoxia on home oxygen, hypothyroidism, hyperlipidemia, history of hypercalcemia, granulomatous lung disease, sleep apnea, restrictive lung disease, elevated hemidiaphragm, history of cad s/p stent hypertension, chronic right-sided heart failure, Schatzki's ring of the distal esophagus, idiopathic scoliosis, osteoporosis, essential tremor, depression, abnormality of gait and others listed below presented to ER with c/o fall. History obtained from patient and inpatient chart review. History recurrent hospital admissions for ambulatory dysfunction. Most recent admission 05/28/24-06/04/24 for ambulatory dysfunction and was discharged to SNF for rehab. Has since been at home. Using cane or walker at home. Patient living at home alone. States last night ambulated to bathroom and turned around and lost balance and fell with his back against the tub and knees against the sink. He doesn't think he hit his head and doesn't think he passed out. He was unable to get himself up off the floor. nurse found patient on the floor today. patient c/o some discomfort to left lateral posterior ribs. Denies other pain. Reports nonproductive coughing and denies increased SOB. Using his home oxygen as directed. Reports some dysuria. Reports chronic urinary urgency and incomplete bladder emptying. Denies fever/chills, diaphoresis, N/V/D/C, ASHLEY, dizziness, syncope, vision changes, neck pain, CP, palpitations, hemoptysis, rhinorrhea, abdominal pain, paresthesias, extremity edema, rashes, hematuria. Allergies Allergy/AdvReac Type Severity Reaction Status Date / Time tramadol AdvReac Intermediate Hallucinati Verified 03/12/23 02:38 ng grapefruit AdvReac Unknown WAS TOLD Verified 03/12/23 02:38 NOT TO TAKE BECAUSE OF CHOLESTROL PILL. Home Medications Medication Instructions Recorded Confirmed Type acetaminophen 500 mg tablet 1,000 mg (2 x 500 mg) PO Q8H PRN 07/13/23 06/27/24 Rx (Tylenol Extra Strength) fever or pain #90 tabs levothyroxine 112 mcg tablet 112 mcg PO DAILYBB #30 tabs 07/13/23 06/27/24 Rx montelukast 10 mg tablet 10 mg PO QAM #30 tabs 07/13/23 06/27/24 Rx (Singulair) propranolol 20 mg tablet 20 mg PO TID #90 tabs 07/13/23 06/27/24 Rx rosuvastatin 5 mg tablet 5 mg PO QAM #30 tabs 07/13/23 06/27/24 Rx tamsulosin 0.4 mg capsule 0.4 mg PO HS #30 caps 07/13/23 06/27/24 Rx allopurinol 100 mg tablet 200 mg PO DAILY 04/20/24 06/27/24 History citalopram 20 mg tablet 20 mg PO DAILY 04/20/24 06/27/24 History clopidogrel 75 mg tablet (Plavix) 75 mg PO DAILY 04/20/24 06/27/24 History duloxetine 60 mg capsule,delayed 60 mg PO DAILY 04/20/24 06/27/24 History release dutasteride 0.5 mg capsule 0.5 mg PO DAILY 04/20/24 06/27/24 History solifenacin 5 mg tablet 5 mg PO DAILY 04/20/24 06/27/24 History spironolactone 25 mg tablet 12.5 mg PO MOWEFR 04/20/24 06/27/24 History albuterol sulfate 90 mcg/actuation 2 inh inhalation Q6 PRN Wheezing 05/28/24 06/27/24 History aerosol inhaler docusate sodium 100 mg capsule 100 mg PO DAILY 05/28/24 06/27/24 History furosemide 40 mg tablet 40 mg PO BID 05/28/24 06/27/24 History ipratropium 20 mcg-albuterol 100 1 puff inhalation TID 05/28/24 06/27/24 History mcg/actuation mist for inhalation (Combivent Respimat) pantoprazole 20 mg tablet,delayed 20 mg PO QAM 05/28/24 06/27/24 History release Past Med/Surg History Problem List (Updated 06/27/24 @ 15:34 by Lupe Thayer PA-C) Abnormal urinalysis Atrial tachycardia (Acute) Bilateral kidney stones (Acute) Chronic respiratory failure (Acute) Leukocytosis (Acute) Acute constipation (Acute) Fall (Acute) (HFpEF) heart failure with preserved ejection fraction BPH (benign prostatic hyperplasia) Ambulatory dysfunction (Acute) Weakness (Acute) Back pain Chronic respiratory failure (Acute) Dizziness (Acute) Fall (Acute) Kidney stones ONE PRESENT/NO PROBLEMS WITH Hematuria Ambulatory dysfunction (Acute) Chronic hypoxic respiratory failure, on home oxygen therapy (Acute) Fall (Acute) Dizziness (Acute) Leukocytosis (Acute) Ambulatory dysfunction (Acute) Generalized weakness (Acute) COPD (chronic obstructive pulmonary disease) (Acute) Physical deconditioning (Acute) Dependence on supplemental oxygen (Acute) Fall Elevated hemidiaphragm Pneumonia Scoliosis (Acute) Right heart failure Hypokalemia Acute and chronic respiratory failure Chronic obstructive pulmonary disease Depression Hyperlipidemia Hypertension Shortness of breath (Acute) Pulmonary edema (Acute) Acute exacerbation of CHF (congestive heart failure) (Acute) Encounter for pre-operative examination Spinal stenosis (Chronic) Encounter for pre-operative examination Acute respiratory failure (Acute) Shortness of breath Leukocytosis Aspiration into airway Medical History Mood disorder Bilateral shoulder pain Fall Acute on chronic respiratory failure with hypoxemia Acute and chronic respiratory failure with hypercapnia Pulmonary embolism COVID-19 Choking REASON FOR UPCOMING PROCEDURE PER PT Ankle swelling PT PLANS TO DISCUSS WITH PT REPORTS DR HAD HIM STOP FLUID PILL AND NOT SURE WHY Infected dental caries Subperiosteal abscess of jaw Acute periodontal abscess Pain, dental Generalized muscle weakness Lower urinary tract symptoms (LUTS) Hypoxia DVT prophylaxis Chronic right-sided heart failure Fall HX, NOT RECENTLY Cervical spine fracture LAST SUMMER NO LIMITATIONS SOB (shortness of breath) on exertion with wheezing Scoliosis Chronic back pain GERD (gastroesophageal reflux disease) Hypothyroidism On anticoagulant therapy plavix daily 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 Myocardial Infarction 2009 Sleep apnea uses 4 L N/C MOSTLY ALL THE TIME On home oxygen therapy 3-4 L CONTINUOUS MOSTLY, AND PRN PER PT COPD (chronic obstructive pulmonary disease) Dyslipidemia HTN (hypertension) Surgical History Hx of oral surgery (07/05/21) Multiple Teeth Extractions for Facial Infection - Sin Chacko, DMD NO CURRENT INFECTION PER PT (PAT CALL 08/18/21) History of testicular surgery "sac full of blood in testicle drained at 26 yrs old" History of heart artery [place] [place] of open reduction and internal fixation (ORIF) procedure left foot fx/pinky toe fx--hardware in place History of lithotripsy Hx of vasectomy Hx of right inguinal hernia repair History of colonoscopy History of esophagogastroduodenoscopy (EGD) History of wisdom tooth extraction History of tonsillectomy History of bilateral cataract extraction History of cardiac cath 2009 [place] [facility] [place] 1 stent--follows with Dr. Ramirez Stented coronary artery "bare metal stent to LAD 2008" Family History Sister Family history of reaction to anesthesia nausea/vomiting Mother Family history of diabetes mellitus Social History Smoking Status: Never smoker Tobacco Type: Pipe and Cigars Cigarettes Per Day: SMOKED PIPE/CIGAR AGE 21'S; Second Hand Exposure: No; Do You Dip or Chew Tobacco: No; Hx Alcohol Use: Yes Alcohol type: beer Hx Substance Use: No Preferred Language: German Communication Ability: Effective Communication Tools: Other Visual Impairment: No Limitations Boxing And Pressing Supervisor Required: No Beliefs That Will Affect Care: None marital status: Current Living Situation: Alone Current Living Situation Comment: DOG How many Children do You have: 1 Feels Safe at Home: Yes Assistive Devices: Glasses Review of Systems Review of Systems: All systems reviewed & are unremarkable except as noted in HPI & below Physical Exam Physical Exam: PE per Dr Mcgregor Results & Data Results & Data Vital Signs (Past 12 Hours) Vital Signs Temp Pulse Pulse Resp BP BP Pulse Ox 06/27/24 14:00 36.7 C 70 18 121/91 96 06/27/24 13:00 36.7 C 64 18 144/78 H 96 06/27/24 12:37 76 18 125/84 94 06/27/24 12:28 74 06/27/24 12:13 96 06/27/24 11:35 36.5 C 70 18 128/89 94 O2 Del Method O2 Flow Rate 06/27/24 14:00 Room Air 06/27/24 13:00 Room Air 06/27/24 12:37 Room Air 06/27/24 12:28 06/27/24 12:13 Room Air 06/27/24 11:35 Nasal Cannula 4 Laboratory Results Short CBC 06/27/24 Range/Units 12:25 WBC 15.91 H (4.8-10.8) K/ul Hgb 15.4 (14.0-18.0) g/dl Hct 45.7 (42.0-52.0) % Plt Count 197 (130-400) K/uL BMP 06/27/24 12:25 Sodium 138 Potassium 3.4 L Chloride 92 L Carbon Dioxide 37 H BUN 12 Creatinine 0.80 Glucose 146 H Calcium 10.4 H Cardiac Enzymes 06/27/24 Range/Units 12:25 Total Creatine Kinase 209 (30-223) U/L Liver Function 06/27/24 Range/Units 12:25 Total Bilirubin 0.9 (0.2-1.0) mg/dl AST 19 (13-39) U/L ALT 10 (7-52) U/L Alkaline Phosphatase 113 H (34-104) U/L Albumin 4.5 (3.4-5.0) gm/dl Urine 06/27/24 Range/Units 14:05 Urine Color Yellow Urine Appearance Clear (Clear) Urine pH 6.5 (4.5-7.5) Ur Specific [place] 1.015 (1.000-1.030) Urine Protein 2+ H (Negative) Urine Glucose (UA) Negative (Negative) Diagnostic Findings Lumbar Spine X-Ray 06/27/24 12:13 XR lumbar spine 2-3V CLINICAL HISTORY: pain post fall COMPARISON STUDY: 12/26/2023 FINDINGS: Stable severe left convex upper lumbar scoliosis. Stable severe diffuse degenerative changes. No acute fracture or subluxation seen. Stable left lower quadrant calcification. IMPRESSION: No acute fracture seen at the lumbar spine. ACT 112: Negative or not required by law. Electronically signed by: Salvador Figueroa M.D. 06/27/2024 2:02 PM Ribs w/Chest X-Ray 06/27/24 12:13 XR ribs LT min 2V w CXR1V CLINICAL HISTORY: L posterior rib pain . Fall. COMPARISON: 05/28/2024 FINDINGS: Stable severe scoliosis. Stable cardiomegaly without pulmonary vascular congestion. Stable mild elevation of the right hemidiaphragm. Stable mild atelectasis or scarring at the right base. No consolidation or pleural effusion. No pneumothorax. Stable small granuloma at the right midlung. No displaced rib fractures seen. There is a possible nondisplaced fracture anteriorly at the left 10th rib. IMPRESSION: Possible nondisplaced fracture anterior left 10th rib with no pneumothorax. ACT 112: Negative or not required by law. Electronically signed by: Salvador Figueroa M.D. 06/27/2024 2:05 PM Thoracic Spine X-Ray 06/27/24 12:13 XR thoracic spine 3V routine CLINICAL HISTORY: midline pain COMPARISON STUDY: 10/14/2022 FINDINGS: Stable severe right convex scoliosis. Stable mild height loss at multiple mid thoracic vertebral bodies. No acute fracture or subluxation seen. IMPRESSION: No acute fracture seen at the thoracic spine. ACT 112: Negative or not required by law. Electronically signed by: Salvador Figueroa M.D. 06/27/2024 2:03 PM Wrist X-Ray 06/27/24 12:13 XR wrist LT min 3V routine CLINICAL HISTORY: pain post fall COMPARISON: None FINDINGS: No fracture or dislocation seen. There are mild degenerative changes at the first CMC joint without erosions. IMPRESSION: No fracture seen. ACT 112: Negative or not required by law. Electronically signed by: Salvador Figueroa M.D. 06/27/2024 2:07 PM Supervising Physician Co-Signing Physician Notes Presents after a fall at home and could not get up. Unknown downtime but stated he was down all night Denied LOC Reports left side pain. ROS noted urinary freq and dysuria which are not new On exam, General: +chronically ill elderly man in no distress Eyes: PERRL, conjunctivae normal, not pale, anicteric sclerae, EOM intact bilaterally ENMT: Some missing teeth Respiratory: Normal respiratory effort, no respiratory distress, diminished breath sounds Cardiovascular: RRR Gastrointestinal (Abdomen): Abdomen is not distended, soft, non-tender to palpation, no guarding, no palpable hepatosplenomegaly, normal bowel sounds Musculoskeletal: No pedal edema Neurologic: Alert and oriented to person, place and year Psychiatric: Euthymic affect Labs notable for leukocytosis. UA had leuk esterase and 11-20WBC XRays noted possible nondisplaced fracture of anterior left 10th rib Fall Ambulatory dysfunction Possible UTI PT/OT/CM consult May benefit from rn long term care placement considering patient lives alone and has had recurrent admission/SNF for same thing If patient ends up going home, needs more services at home and Life Alert button Other plans as detailed by Lupe Thayer PA-C I spent a total of 35 minutes coordinating, documenting and providing care for this patient excluding time spent in performance of separately billed services (4) Chronic respiratory failure Respiratory failure complication: hypoxia Qualified Code(s): J96.11 - Chronic respiratory failure with hypoxia
[2024-06-27] MEDS: cefTRIAXone SODIUM 2,000 MG/50 ML BAG IV STA (15:44)
[2024-06-27] MEDS: LIDOCAINE 5% 1 PATCH TD STA (15:44)
[2024-06-27] MEDS: POTASSIUM CHLORIDE CRTAB 20 MEQ TABCR PO STA (15:44)
[2024-06-27] MEDS ORDERED: POLYETHYLENE (MIRALAX) 17 GM PACK PO PRN (16:47)
[2024-06-27] MEDS ORDERED: PROMETHAZINE 6.25 MG/50.25 ML BAG IV PRN (16:47)
[2024-06-27] MEDS: ENOXAPARIN INJ 40 MG/0.4 ML SYR SQ SCH (17:46)
[2024-06-27] MEDS: FUROSEMIDE 40 MG TAB PO SCH (17:46)
--- OUTSIDE RECORDS SUMMARY | 2024-06-27 19:33 | External Medical Summary ---
Author Name Unknown Address Unknown Organization K01:[facility] [place] [address] [address] Laboratory Report Ordering Provider Test Date Status JESSA METZGER 06/26/2024 15:09:51 Final Observation Date Value Abnormality Reference (Units ) Status Uric Acid 06/26/2024 15:09:51 4.2 3.4-7.0 (m g/dL) Final Performing Location LAB[facility]ATORY [facility] - [address] [address]
--- OUTSIDE RECORDS SUMMARY | 2024-06-27 19:33 | External Medical Summary | Summary of Care ---
Author Name Unknown Organization [facility] Address [address] [address] Phone [phone] Care Team Providers Care Food Runner Name Role Phone Jennifer Sarkar MD Primary Care Provider [phone] Reason for Visit * Reason Onset Date Comments Test Results 06/26/2024 Encounter Details Date Type Department Care Team (Late st Contact Info) Description 06/26/2024 Telephone Cardiology, [facility] [address] [place] [phone] Job Bravo PA-C [address] [place] [address] Test Results Allergies Active Allergy Reactions Criticality Noted Date Comments Food (See Comments) 03/21/2018 Other reaction(s): WAS TOLD NOT TO TAKE grapefruit Tramadol Other (Please comment) High 10/06/2020 Hallucinations documented as of this encounter (statuses as of 06/27/2024) Medications NITROGLYCERIN 0.4 MG SL SUBLIndications:Old myocardial infarct,S/P primary angioplasty with coronary stent,Obstructive sleep apnea (adult) (pediatric),HTN, goal to be determined 1every 5 min as needed with chest pain up to 3 doses in 15 minutes 25 Tab 11 03/08/19 12 Active Zoledronic Acid 5 MG/100ML Intravenous Solution Administer 5 mg intravenously once. Yearly administration Active Saline Nasal Gel (Nasogel)Indication s:Chronic respiratory failure with hypoxia (HCC),Supplemental oxygen dependent,Nasal septal perforation,Nose dryness Administer into each nostril daily. For dryness(nasal septal perforation) 14 g 05/07/19 23 Active oxygen 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:Pediatric Genetic Counselor jonathan respiratory failure with hypoxia (HCC),Chronic right-sided [...] 06/23/2023. 90 Capsule 3 10/18/19 24 Active Albuterol Sulfate HFA 108 (90 [...] morning. 60 Tablet 5 03/16/19 25 Active Levothyroxine Sodium [...] Oral Tablet (Lasix)Indications: Coronary artery disease involving [place] coronary artery of [place] heart without angina pectoris,Chronic right-sided heart failure (HCC),Bilateral leg edema,Encounter for monitoring diuretic therapy Take 1 Tablet by mouth 2 times a day. 180 Tablet 3 04/11/19 25 Active Citalopram Hydrobromide 20 MG Oral [...] as needed for constipation 05/10/19 25 Active Additional Information Patient not taking.Reported on 06/20/2024 Solifenacin Succinate 5 MG Oral Tablet (VESIcare) Take 1 Tablet by mouth in the morning. 90 Tablet 1 05/19/19 25 Active Spironolactone 25 MG Oral Tablet (Aldactone) Take 0.5 Tablets by mouth in the morning. 45 Tablet 3 05/19/19 25 Active Additional Information Patient taking differently: No details specified, Reason: was DC on 25mg /d 06/05/24, Reported on 06/20/2024 Rosuvastatin Calcium 5 MG Oral Tablet (Crestor)Indication s:Dyslipidemia, goal LDL below 100,S/P primary angioplasty with coronary stent Take 1 Tablet by mouth in the morning. 90 Tablet 1 05/22/19 Active Acetaminophen 325 MG Oral Tablet (Tylenol) Take 1 Tablet by mouth every 6 hours as needed. Active Magnesium Hydroxide 400 MG/5ML Oral Suspension (Mom) Take 30 mL by mouth daily as needed. 04/27/19 Active Lidocaine 4 % External Patch Place 1 Patch topically on the skin daily. 06/07/19 Active documented as of this encounter (statuses as of 06/27/2024) Active Problems Problem Noted Date Diagnosed Date Calculus of kidney 04/18/2024 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 Hypercalcemia 12/03/2022 Supplemental oxygen dependent 05/06/2022 Nasal septal perforation 05/06/2022 Chronic respiratory failure with hypoxia 022 Granulomatous lung disease 09/18/2021 Chronic rhinitis 06/10/2021 Schatzki's ring of distal esophagus 06/10/2021 Chronic right-sided heart failure 04/08/2020 Coronary artery disease invo lving [place] coronary artery of [place] heart without angina pectoris 11/21/2018 Abnormality [...] as of this encounter (statuses as of 06/27/2024) Resolved Problems Problem Noted Date Diagnosed Date [...] and draped in usual sterile manner. 14 [place] flexible cystoscope inserted into urethra and guided [...] as of this encounter (statuses as of 06/27/2024) Immunizations Name Administration Dates Next Due COVID-19 mRNA, LNP-s, No Pre serve, 2-Dose Series ([place]) 05/14/2020,04/18/2020 Covid-19, Mrna, Lnp-s, Pf, B ivalent, 30 Mcg, IM, 12 yrs and above ([place]) 07/01/2023 H1N1 2009 Influenza, IM 04/22/2009 PPD [...] Industry Job Start Date Job End Date [employer] Not on file Not on file Not on file documented as of this encounter Miscellaneous Notes * Telephone Encounter - Phillip Hess LPN - 06/27/2024 8:45 AM EDT Called patient's listed phone numbers. Mobile number is identified but voicemail is full and unableto leave a message. Home number rings but no answer and no voicemail to leave a message. Sent patient a letter to make aware. Lab ordered. Awaiting call back to pend prescription. * Telephone Encounter - Phillip Hess LPN - 06/26/2024 4:38 PM EDT Called patient and voicemail was full and unable to leave a message at this time. ----- Message from Job Bravo sent at 06/26/2024 4:36 PM EDT ----- As best I can tell, patient is currently taking furosemide 40 mg twice a day and spironolactone 25 mg/day... Recommend adding potassium chloride 10 mEq's on Tuesday's, Tuesday's and Tuesday's Recheck a basic metabolic panel in about 3-4 weeks documented in this encounter Plan of Treatment Upcoming Encounters Date Type Department Care Team (Late st Contact Info) Description 07/23/2024 10:30 AM EDT Office Visit Urology, [facility] [address] [place] [phone] Man Gu MD [address] [place] [id number] 08/03/2024 10:20 AM EDT Office Visit General Internal Medicine [facility] [address] [place] [address] Jennifer Sarkar MD [address] [place] [address] 08/10/2024 2:30 PM EDT Office Visit Cardiology, [place] [address] [address] Krystal Wilson CRNP [address] [place] [id number] 09/26/2024 10:30 AM EDT Office Visit Orthopaedics [facility] [address] [place] [phone] Ely Cabrales MD [address] [place] [phone] 12/11/2024 2:20 PM EDT Office Visit Neurology [facility] [address] [place] [address] Wan Ureña MD [address] [place] [address] Scheduled Orders Name Type Priority Associated Diagnoses Orde r Schedule BASIC METABOLIC PANEL Lab Routine Coronary artery disease involving [place] coronary artery of [place] heart without angina pectoris HTN, goal below 140/90 Encounter for monitoring diuretic therapy Expected: 07/28/2024 (Approximate), Expires: 06/27/2025 Scheduled Procedures Name Priority Associated Diagnoses Date/Ti me COLONOSCOPY FLEXIBLE PROXIMAL DIAGNOSTIC Recall History of colon polyps Health Maintenance Due Date Last Done Comments Depression Monitoring 1952 Adult Wellness Visit 11/29/2017 11/29/2016 Colonoscopy 06/03/2022 06/03/2017, 02/01/2007 COVID-19 Vaccine ( season) 2023 07/01/2023, 05/14/2020, 04/18/2020 Albumin/Creatinine Ratio 09/09/2024 09/09/2021, 09/22 TSH 03/14/2025 03/14/2024, 11/22, 10/25/2023, Additional history exists GFR 06/26/2025 06/26/2024, 04/22, 04/18/2024, Additional history exists DXA Scan 08/29/2025 08/30/2023, [...] D LEVEL ONCE IN A LIFETIME-USE SMARTSET# [id number] Completed 03/14/2024, 10/20/2023, 08/17/2023, Additional history exists [...] this encounter Medical Devices Implanted Type Area Ticket Puller Device Identifier Shelf Expiration Date Model / Serial / Lot Lens Intraoc 23.0 - [id number] - [id number] Implanted:Qty: 1 on 12/21/2016 by Raj Bernard MD at OR [facility] Left: Eye BAUSCH 06/20/2021 [id number] / [id number] / Lens Intraoc 22.0 - [id number] - [id number] Implanted:Qty: 1 on 01/06/2017 by Raj Bernard MD at OR [facility] Right: Eye BAUSCH 08/20/2021 [id number] / [id number] / [id number] documented as of this encounter Visit Diagnoses Diagnosis Encounter for monitoring diuretic therapy- Primary Encounter for therapeutic drug monitoring Coronary artery disease involving [place] coronary artery of [place] heart without angina pectoris HTN, goal below [...] Power of Attor bj? No Care Teams Food Runner Relationship Specialty Start Date End Date Jennifer Sarkar MD [address] [place] [address] PCP - General Internal Medicine 10/06/20 documented as of this encounter
--- OUTSIDE RECORDS SUMMARY | 2024-06-27 19:33 | External Medical Summary | Summary of Care ---
Author Name Unknown Organization [facility] Address [address] [place] [address] Phone [phone] Care Team Providers Care Life Insurance Sales Name Role Phone Jennifer Sarkar MD Primary Care Provider [phone] Reason for Visit * Reason Comments Follow Up BLT shoulders Encounter Details Date Type Department Care Team (Late st Contact Info) Description 06/26/2024 3:30 PM EDT Office Visit Orthopaedics [facility] [address] [place] [phone] Ely Cabrales MD [address] [place] [phone] Nontraumatic complete tear of right rotator cuff*; Nontraumatic complete tear of left rotator cuff; Osteoarthritis of bilateral glenohumeral joints Allergies Active Allergy Reactions Criticality Noted Date Comments Food (See Comments) 03/21/2018 Other reaction(s): WAS TOLD NOT TO TAKE grapefruit Tramadol Other (Please comment) High 10/06/2020 Hallucinations documented as of this encounter (statuses as of 06/26/2024) Medications NITROGLYCERIN 0.4 MG SL SUBLIndications:Old myocardial [...] 14 g 05/07/19 23 Active oxygen 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:Tar Roofer jonathan respiratory failure with hypoxia (HCC),Chronic right-sided [...] Oral Tablet (Lasix)Indications: Coronary artery disease involving [place] coronary artery of [...] in the morning. 45 Tablet 3 05/19/19 Active Additional Information Patient taking differently: No [...] topically on the skin daily. 06/07/19 Active Hospital, Clinic, or Other Facility Administered Medication Ordered Dose Route Frequency Start Date End Date Status lidocaine 1% 1 mL - triamcinolone acetonide 40 mg/mL 1 mL inj 2 mLIndications:Nontraumatic complete tear of right rotator cuff,Nontraumatic complete tear of left rotator cuff,Osteoarthritis of bilateral glenohumeral joints 2 mL IJ ONCE 06/26/2024 06/27/2024 Active lidocaine 1% 1 mL - triamcinolone acetonide 40 mg/mL 1 mL inj 2 mLIndications:Nontraumatic complete tear of right rotator cuff,Nontraumatic complete tear of left rotator cuff,Osteoarthritis of bilateral glenohumeral joints 2 mL IJ ONCE 06/26/2024 06/27/2024 Active documented as of this encounter (statuses as of 06/26/2024) Active Problems Problem Noted Date Diagnosed Date [...] as of this encounter (statuses as of 06/26/2024) Resolved Problems Problem Noted Date Diagnosed Date [...] and draped in usual sterile manner. 14 Panamanian flexible cystoscope inserted into urethra and guided [...] as of this encounter (statuses as of 06/26/2024) Immunizations Name Administration Dates Next Due COVID-19 mRNA, LNP-s, No Pre serve, 2-Dose Series (Nomi) 05/14/2020,04/18/2020 Covid-19, Mrna, Lnp-s, Pf, B ivalent, 30 Mcg, IM, 12 yrs and above (Nomi) 07/01/2023 H1N1 2009 Influenza, IM 04/22/2009 PPD [...] Industry Job Start Date Job End Date [employer] Not on file Not on file Not on file documented as of this encounter Progress Notes * Ely Cabrales MD - 06/26/2024 3:26 PM EDT Fabian Starks is a 83 year old male who presents for follow up of bilateral shoulder to [facility]. Fabian Starks is here unaccompanied History: Chief Complaint Patient presents with Follow Up BLT shoulders Nursing Notes: Nakia Ely, ATC 06/26/24 1525 Signed Pt is here for BLT shoulder inj Previous inj last for about 2 months Here unaccompanied I initially saw patient 08/17/2023 for bilateral shoulder pain due to arthritis and rotator cuff arthropathy. Patient had done well with landmark guided subacromial injections in the past. This was repeated at that visit. Unfortunately, it only provided him with one-month of relief. He has had better results from ultrasound-guided glenohumeral joint injections lasting him at least2 months. Last injection March 21. He desires to continue with injections Per chart review has had multiple Emergency Department in hospitalizations since our last office visit in February. Review of systems: All others negative except those noted above in HPI. Objective: Physical Exam There were no vitals filed for this visit. Estimated body mass index is 25.34 kg/m² as calculated from the following: Height as of 06/20/24: 1.626 m (5' 4"). Weight as of 06/20/24: 67 kg (147 lb 9.6 oz). General: generally well-nourished and in no acute distress HEENT: normocephalic, atraumatic, sclera anicteric Psych: mood and affect normal , cooperative Card: Peripheral pulses: normal in affected extremity (s) Resp: equal chest rise, non-tachypneic, On oxygen Skin: no rash, normal Neuro: Tremor slightly increased from prior MSK: With significant difficulty with transitions from chair to exam table and lying down Shoulder exam, bilateral Inspection: No visible deformity, redness, swelling or bruising atrophy Palpation: No tenderness to palpation Shoulder glenohumeral ACTIVE range of motion: Abduction to 90° on the right, 20° on the left External rotation to 30° bilaterally Radiology (I have personally reviewed the following films): No new imaging studies Assessment and Plan: ICD-10-CM 1. Nontraumatic complete tear of right rotator cuff M75.121 2. Nontraumatic complete tear of left rotator cuff M75.122 3. Osteoarthritis of bilateral glenohumeral joints M19.011 M19.012 Mr. Starks is a pleasant 83-year-old male who is seen today for bilateral shoulder pain due to rotator cuff arthropathy and glenohumeral joint osteoarthritis. He had about 2 months of relief from his last glenohumeral joint injections. Elects to proceed with same. He feels that it is worthwhile to go through the injections for the 2 months of pain relief. See procedure note below. Follow up in 3 months for repeat injections The above assessment and plan were discussed at length. All questions were answered, and the patient expressed understanding. Ely Cabrales MD Primary Care Sports Medicine [facility] [address] [address] PROCEDURE NOTE: SHOULDER GLENOHUMERAL JOINT INJECTION Laterality: [...] Cabrales MD Sports Medicine Primary Care Orthopaedics [facility] [address] [place] [address] documented in this encounter Nursing Notes * Nakia Ely ATC - 06/26/2024 3:23 PM EDT Pt is here for BLT shoulder inj Previous inj last for about 2 months Here unaccompanied documented in this encounter Plan of Treatment Upcoming Encounters Date Type Department Care Team (Late st Contact Info) Description 07/23/2024 10:30 AM EDT Office Visit Urology, [facility] [address] [place] [phone] Man Gu MD 27 [facility] [place] [address] 08/03/2024 10:20 AM EDT Office Visit General Internal Medicine [facility] [address] [facility] [address] [place] [address] Jennifer Sarkar MD 200 [facility] [place] [address] 08/10/2024 2:30 PM EDT Office Visit Cardiology, [place] [address] [place] [address] Krystal Wilson CRNP [address] [place] [address] 09/26/2024 10:30 AM EDT Office Visit Orthopaedics [facility] [address] [place] [phone] Ely Cabrales MD [address] [place] [phone] 12/11/2024 2:20 PM EDT Office Visit Neurology [facility] [address] [place] [phone] Wan Ureña MD [address] [place] [address] Scheduled Orders Name Type Priority Associated Diagnoses Orde r Schedule POINT OF CARE US MAJOR JOINT INJECTION, ORTHO Medical Imaging Routine Nontraumatic complete tear of right rotator cuff Nontraumatic complete tear of left rotator cuff Osteoarthritis of bilateral glenohumeral joints Ordered: 06/26/2024 Scheduled Procedures Name Priority Associated Diagnoses Date/Ti [...] D LEVEL ONCE IN A LIFETIME-USE SMARTSET# [id number] Completed 03/14/2024, 10/20/2023, 08/17/2023, Additional history exists [...] this encounter Medical Devices Implanted Type Area Computer Systems Architect Device Identifier Shelf Expiration Date Model / Serial / Lot Lens Intraoc 23.0 - [id number] - [id number] Implanted:Qty: 1 on 12/21/2016 by Raj Bernard MD at OR [facility] Left: Eye BAUSCH 06/20/2021 [id number] / [id number] / Lens Intraoc 22.0 - [id number] - [id number] Implanted:Qty: 1 on 01/06/2017 by Raj Bernard MD at OR [facility] Right: Eye BAUSCH 08/20/2021 [id number] / [id number] / [id number] documented as of this encounter Visit Diagnoses [...] Power of Attor bj? No Care Teams Life Insurance Sales Relationship Specialty Start Date End Date Jennifer Sarkar MD 200 [facility] [place] [address] PCP - General Internal Medicine 10/06/20 documented as of this encounter
--- OUTSIDE RECORDS SUMMARY | 2024-06-27 19:33 | External Medical Summary | Summary of Care ---
Author Name Unknown Organization [facility] Address [address] [address] Phone [phone] Care Team Providers Care Structural Welder Name Role Phone Jennifer Sarkar MD Primary Care Provider [phone] Reason for Visit * Reason Comments Outpatient Testing Encounter Details Date Type Department Care Team (Late st Contact Info) Description 06/26/2024 4:00 PM EDT Laboratory [facility], [facility] [place] [phone] [facility] [place] [address] Severe obstructive sleep apnea; Nocturnal hypoxemia; Chronic right-sided heart failure (HCC); Nephrolithiasis; Hyperuricemia; Hypokalemia Allergies Active Allergy Reactions Criticality Noted Date [...] 14 g 05/07/19 23 Active oxygen 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: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 04/27/19 25 Active Lidocaine 4 % External Patch Place 1 Patch topically on the skin daily. 06/07/19 25 Active documented as of this encounter [...] mRNA, LNP-s, No Pre serve, 2-Dose Series (RF nano) 05/14/2020,04/18/2020 Covid-19, Mrna, Lnp-s, Pf, B ivalent, 30 Mcg, IM, 12 yrs and above (RF nano) 07/01/2023 H1N1 2009 Influenza, IM 04/22/2009 PPD [...] Industry Job Start Date Job End Date [employer] Not on file Not on file Not on file documented as of this encounter Miscellaneous Notes * Result Encounter Note - Job Bravo PA-C - 06/26/2024 4:36 PM EDT As best I can tell, patient is [...] Visit Urology, [facility] [address] [place] [phone] Man Gu MD [address] [place] [address] 08/03/2024 10:20 AM EDT Office Visit General Internal Medicine [facility] 200 [facility] [place] [address] Jennifer Sarkar MD [address] [facility] [place] [address] 08/10/2024 2:30 PM EDT Office Visit Cardiology, [place] [address] [facility] [place] [phone] Krystal Wilson CRNP [address] [facility] [place] [address] 09/26/2024 10:30 AM EDT Office Visit Orthopaedics [facility] [address] [phone] Ely Cabrales MD [address] [place] [phone] 12/11/2024 2:20 PM EDT Office Visit Neurology [facility] [address] [facility] [place] [address] Wan Ureña MD [address] [place] [address] Pending Results Name Type Priority Associated Diagnoses Date /Time URIC ACID Lab Routine Nephrolithiasis Hyperuricemia 06/26/2024 3:09 PM EDT Scheduled Procedures Name Priority Associated [...] D LEVEL ONCE IN A LIFETIME-USE SMARTSET# [id number] Completed 03/14/2024, 10/20/2023, 08/17/2023, Additional history exists [...] encounter Medical Devices Implanted Type Area Electrician Bus Device Identifier Shelf Expiration Date Model / Serial / Lot Lens Intraoc 23.0 - [id number] - [id number] Implanted:Qty: 1 on 12/21/2016 by Raj Bernard MD at OR [facility] Left: Eye BAUSCH 06/20/2021 [id number] / [id number] / Lens Intraoc 22.0 - [id number] - [id number] Implanted:Qty: 1 on 01/06/2017 by Raj Bernard MD at OR [facility] Right: Eye BAUSCH 08/20/2021 [id number] / [id number] / [id number] documented as of this encounter Procedures Procedure Name Priority Date/Time Associated Diagnosis Comments DIFFERENTIAL, AUTOMATED Routine 06/26/2024 3:09 PM EDT Severe obstructive sleep apnea Nocturnal hypoxemia Chronic right-sided heart failure (HCC) BASIC METABOLIC PANEL Routine 06/26/2024 3:09 PM EDT Hypokalemia CBC Routine 06/26/2024 3:09 PM EDT Severe obstructive sleep apnea Nocturnal hypoxemia Chronic right-sided heart failure (HCC) CBC Routine 06/26/2024 3:09 PM EDT Severe obstructive sleep apnea Nocturnal hypoxemia Chronic right-sided heart failure (HCC) DIFFERENTIAL, TECHNOLOGIST REVIEW Routine 06/26/2024 3:09 PM EDT Severe obstructive sleep apnea Nocturnal hypoxemia Chronic right-sided heart failure (HCC) documented in this encounter Results * DIFFERENTIAL, TECHNOLOGIST REVIEW (06/26/2024 3:09 PM EDT) Pathologist [facility] 06/26/2024 4:02 PM EDT [facility] [facility] Blood Venous blood specimen / Unknown Venipuncture / Unknown 06/26/2024 3:09 PM EDT 06/26/2024 3:09 PM EDT us Jennifer Sarkar MD LAB BLOOD ORDERABLES Final Resul t [facility] [place] [facility] [address] [place] [address] * (ABNORMAL) DIFFERENTIAL, AUTOMATED (06/26/2024 3:09 PM EDT) WBC 12.60(H) 4.00 - 10.80 K/uL 06/26/2024 4:02 PM EDT [facility] [place] [facility] Neutrophils % 62.9 40.0 - 75.0 % 06/26/2024 4:02 PM EDT [facility] [place] [facility] Lymphocytes % 21.0 18.0 - 42.0 % 06/26/2024 4:02 PM EDT [facility] [place] [facility] Monocytes % 12.5(H) 1.0 - 11.0 % 06/26/2024 4:02 PM EDT [facility] [place] [facility] Eosinophils % 3.4 0.0 - 6.0 % 06/26/2024 4:02 PM EDT [facility] [place] [facility] Basophils % 0.2 0.0 - 2.0 % 06/26/2024 4:02 PM EDT [facility] [place] [facility] Absolute Neutrophils 7.92(H) 1.80 - 7.70 K/uL 06/26/2024 4:02 PM EDT [facility] [place] [facility] Absolute Lymphocytes 2.65 1.00 - 4.80 K/ul 06/26/2024 4:02 PM EDT [facility] [place] [facility] Absolute Monocytes 1.58(H) 0.00 - 1.10 K/uL 06/26/2024 4:02 PM EDT [facility] [place] [facility] Absolute Eosinophils 0.43 0.00 - 0.70 K/uL 06/26/2024 4:02 PM EDT [facility] [place] [facility] Absolute Basophils 0.02 0.00 - 0.20 K/uL 06/26/2024 4:02 PM EDT [facility] [place] [facility] Blood Venous blood specimen / Unknown Venipuncture / Unknown 06/26/2024 3:09 PM EDT 06/26/2024 3:09 PM EDT us Jennifer Sarkar MD LAB BLOOD ORDERABLES Final Resul t [facility] [place] [facility] [address] [place], [place] [address] * (ABNORMAL) CBC (06/26/2024 3:09 PM EDT) WBC 12.60(H) 4.00 - 10.80 K/uL 06/26/2024 4:02 PM EDT [facility] [place] [facility] RBC 4.57 4.50 - 5.25 M/uL 06/26/2024 4:02 PM EDT LAB[facility]ATORY [facility] HGB 14.3 14.0 - 16.8 g/dL 06/26/2024 4:02 PM EDT LAB[facility] HCT 43.9 40.0 - 48.4 % 06/26/2024 4:02 PM EDT LAB[facility] MCV 96.1 82.0 - 99.5 fL 06/26/2024 4:02 PM EDT LAB[facility]ORY [facility] MCH 31.3 27.0 - 34.0 pg 06/26/2024 4:02 PM EDT [facility]10 MCHC 32.6 32.0 - 36.0 g/dL 06/26/2024 4:02 PM EDT LAB[facility]ORY [facility] RDW 14.1 11.5 - 15.5 % 06/26/2024 4:02 PM EDT [facility] PLT 185 140 - 400 K/uL 06/26/2024 4:02 PM EDT [facility] [place] [facility] MPV 9.7 6.6 - 11.1 fL 06/26/2024 4:02 PM EDT [facility]ORY [facility] Blood Venous blood specimen / Unknown Venipuncture / Unknown 06/26/2024 3:09 PM EDT 06/26/2024 3:09 PM EDT us Jennifer Sarkar MD LAB BLOOD ORDERABLES Final Resul t [facility] [address] [place] [address] * (ABNORMAL) BASIC METABOLIC PANEL (06/26/2024 3:09 PM EDT) BUN 8 6 - 20 mg/dL 06/26/2024 4:08 PM EDT [facility] CREATININE 0.9 0.6 - 1.2 mg/dL 06/26/2024 4:08 PM EDT [facility] EGFR 84 >=60 mL/min 06/26/2024 4:08 PM EDT [facility] Comment:eGFR is calculated b ased on the CKD-EPI 2020 equation. SODIUM 138 135 - 146 mmol/L 06/26/2024 4:08 PM EDT [facility] POTASSIUM 3.6 3.5 - 5.1 mmol/L 06/26/2024 4:08 PM EDT [facility] [place] [facility] CHLORIDE 92(L) 98 - 107 mmol/L 06/26/2024 4:08 PM EDT [facility] CO2 34(H) 22 - 32 mmol/L 06/26/2024 4:08 PM EDT [facility] ANION GAP 12 7 - 15 mmol/L 06/26/2024 4:08 PM EDT [facility] [place] [facility] GLUCOSE 97 70 - 120 mg/dL 06/26/2024 4:08 PM EDT [facility] CALCIUM 10.1 8.4 - 10.2 mg/dL 06/26/2024 4:08 PM EDT [facility] [place] [facility] Blood Venous blood specimen / Unknown Venipuncture / Unknown 06/26/2024 3:09 PM EDT 06/26/2024 3:09 PM EDT us Job Bravo PA-C LAB BLOOD ORDERABLES Final Result [facility] [place] [facility] [place] [address] documented in this encounter Visit Diagnoses Diagnosis Severe obstructive sleep apnea Obstructive sleep apnea (adult) (pediatric) Nocturnal hypoxemia Hypoxemia Chronic right-sided heart failure (HCC) Congestive heart failure, unspecified Nephrolithiasis Calculus of kidney Hyperuricemia Other abnormal blood chemistry Hypokalemia Hypopotassemia documented in this encounter Advance Directives [...] Power of Attor bj? No Care Teams Structural Welder Relationship Specialty Start Date End Date Jennifer Sarkar MD 200 [facility] [place] [address] PCP - General Internal Medicine 10/06/20 documented as of this encounter
--- OUTSIDE RECORDS SUMMARY | 2024-06-27 19:34 | External Medical Summary | Summary of Care ---
Author Name Unknown Organization [facility] Address [address] [facility] [place] [address] Phone [phone] Care Team Providers Care Pouring Crane Operator Name Role Phone Jennifer Sarkar MD Primary Care Provider [phone] Reason for Visit * Reason Comments NEW PATIENT New pt. Here for les ions on face. * Evaluate & Treat - Unlimited Visits (Within 30 days (routine)) - Authorized Specialty Diagnoses / Procedures Referred By Derek knight Referred To Contact Dermatology Diagnoses Skin lesion of face Jennifer Sarkar MD [address] [place] [address] Phone: tel: fax: Referral ID Status Reason Start Date Expiration Date Visits Requested Visits Authorized [id number] Authorized Specialty Services Required [phone] Encounter Details Date Type Department Care Team (Late st Contact Info) Description 06/07/2024 2:00 PM EDT Office Visit [address] [place] [address] Gypsy Mujica PA-C [address] [place] [address] [place] [address] Verrucous keratosis*; Seborrheic keratosis; Lentigines; Ephelides Allergies Active Allergy Reactions Criticality Noted Date Comments Food (See Comments) 03/21/2018 Other reaction(s): WAS TOLD NOT TO TAKE grapefruit Tramadol Other (Please comment) High 10/06/2020 Hallucinations documented as of this encounter (statuses as of 06/07/2024) Medications NITROGLYCERIN 0.4 MG SL SUBLIndications:Old myocardial [...] Active Additional Information Patient taking differently:1,000 mg [id number] PRN, ,may take 3rd dose in between --12/21/2021, Reported on 05/09/2024 Saline Nasal Gel (Nasogel)Indication s:Chronic respiratory failure with hypoxia (HCC),Supplemental oxygen dependent,Nasal septal perforation,Nose dryness Administer into each nostril daily. 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 90 Tablet 1 05/19/19 25 Active Spironolactone 25 MG Oral Tablet (Aldactone) Take 0.5 Tablets by mouth in the morning. 45 Tablet 3 05/19/19 25 Active Rosuvastatin Calcium 5 MG Oral Tablet (Crestor)Indication s:Dyslipidemia, goal LDL below 100,S/P primary angioplasty with coronary stent Take 1 Tablet by mouth in the morning. 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 Essential tremor documented as of this encounter (statuses as of 06/07/2024) Resolved Problems Problem Noted Date Diagnosed Date [...] and draped in usual sterile manner. 14 Macedonian flexible cystoscope inserted into urethra and guided [...] as of this encounter (statuses as of 06/07/2024) Immunizations Name Administration Dates Next Due COVID-19 mRNA, LNP-s, No Pre serve, 2-Dose Series ([employer]) 05/14/2020,04/18/2020 Covid-19, Mrna, Lnp-s, Pf, B ivalent, 30 Mcg, IM, 12 yrs and above ([employer]) 07/01/2023 H1N1 2009 Influenza, IM 04/22/2009 PPD [...] Industry Job Start Date Job End Date [employer] Not on file Not on file Not on file documented as of this encounter Progress Notes * Darnell Morrissey MD - 06/07/2024 3:04 PM EDT I have seen and examined the patient via teledermatology review of chart note and photos with Gypsy Mujica PA-C. I have reviewed and agree with the assessment and plan. * Gypsy Mujica PA-C - 06/07/2024 2:00 PM EDT SUBJECTIVE: HPI: Fabian Starks is a 83 year old male seen at the request of Jennifer Sarkar MD for evaluation and treatment of facial lesions. Pt. declined full skin exam. Pcp wanted pt's facial lesions to be evaluated. Asymptomatic to pt, no tx to date. REVIEW OF SYSTEMS: SKIN: No other new or changing moles. HEME/LYMPH: No new or enlarging lumps or bumps. CONSTITUTIONAL: No nausea, vomiting, fevers, chills, diarrhea. No recent unintended weight loss, night sweats, appetite or malaise. RESP: negative MSK/EXT: Negative or as per HPI GI: negative CV: Negative or as per HPI Rest of systems are negative or as per HPI SKIN CANCER HX: NONE Reviewed, same day as visit, 0 ozuke Dermatology lab work(s)/pathology report(s) as well as those sent by referring provider prior to seeing pt. 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 Nocturnal hypoxemia 06/08/2007 3 LPM at bedtime [facility] OBSTRUCTIVE SLEEP APNEA - refuses CPAP 01/15/2008 uses oxygen at night Osteoporosis Schatzki's ring Sleep apnea, obstructive SPINAL STENOSIS-LUMBAR 07/29/2005 FAMILY HISTORY: Skin CA: None Skin Disorders: none SOCIAL HISTORY: Social History Tobacco Use Smoking status: Former Types: Pipe, Cigars Quit date: 1961 Years since quittin.3 Smokeless tobacco: Never Tobacco comments: Smoked a occasional pipe or cigar socially when was younger. Substance Use Topics Alcohol use: Yes Comment: rarely Vaping/E-Cigarette Use Vaping/E-Cigarette Use Never User Vaping/E-Cigarette Substances Vaping/E-Cigarette Devices MEDICA TIONS: Current Outpatient Medications Medication Sig Dispense Refill [...] or chew the tablet. 90 Tablet 3 Montelukast Sodium 10 MG Oral Tablet (Singulair) TAKE 1 TABLET BY MOUTH IN THE MORNING. ST 09/01/2022. 90 Tablet 3 DULoxetine HCl 60 MG Oral Capsule Delayed Release Particles (Cymbalta) TAKE 1 CAPSULE BY MOUTH IN THE MORNING. DO NOT CUT, CRUSH OR CHEW--INC FROM 06/23/2023. 90 Capsule 3 Albuterol Sulfate HFA 108 (90 Base) [...] mouth in the morning. 90 Capsule 3 Clopidogrel Bisulfate 75 MG Oral Tablet (pLAVix) TAKE 1 TABLET DAILY 90 Tablet 1 Allopurinol 100 MG Oral Tablet (Zyloprim) Take 2 Tablets by mouth in the morning. 60 Tablet 5 Levothyroxine Sodium 112 MCG Oral [...] 2 times a day. 180 Tablet 3 Citalopram Hydrobromide 20 MG Oral Tablet (CeleXA) TAKE 1 TABLET BY MOUTH EVERY DAY FOR DEPRESSION 90 Tablet 1 Docusate Sodium 100 MG Oral Capsule (Colace) Take 1 Capsule by mouth in the morning and 1 Capsule before bedtime. 60 Capsule 11 Polyethylene Glycol 3350 17 GM/SCOOP Oral Powder (MiraLax) Dissolve one heaping tablespoon in 8 ounces of water or juice every 3 days as needed for constipation Solifenacin Succinate 5 MG Oral Tablet (VESIcare) Take 1 Tablet by mouth in the morning. 90 Tablet 1 Spironolactone 25 MG Oral Tablet (Aldactone) Take 0.5 Tablets by mouth in the morning. 45 Tablet 3 Rosuvastatin Calcium 5 MG Oral Tablet (Crestor) Take 1 Tablet by mouth in the morning. 90 Tablet 1 No current facility-administered medications for this visit. ALLERGY: Tramadol and Food (see comments) OBJECT HECTOR: GEN: alert, no distress, appears oriented, pleasant, cooperative, uses walker, and on oxygen by nasal cannula. SKIN: Detailed exam of face including lids and lips, neck, and back completed: 1. Face/neck/back-Many sharply defined, variegated brown, waxy flat papules with velvety to finely verrucous surfaces. Few white and verrucous on R eyebrow/L lateral cheek/L mid helix. 2. Face/back-Some well defined light to medium brown homogenous stellate and non stellate macules. ASSESS MENT/PLAN: 1. Seborrheic/Benign Keratoses and verrucoid keratoses on face/neck/back-no tx needed, pt given reassurance and written education about diagnosis. IVKs (x3) on R eyebrow/L lateral cheek/L mid helix-Cryosurgery explained to the patient. Discussed risk of blistering, crusting, infection, scarring, reoccurrence of lesions, hypopigmentation, postinflammatory hyperpigmentation with pt prior to procedure. Verbal consent obtained. Time out calledimmediately prior to procedure and patient identification and site verified. Cryo therapy performedwith Liquid Nitrogen via cryo spray unit to lesion (s) noted above. Location noted in physical exam. Post op course explained. Skin Cryosurgery (FREEZING) Instructions Most areas treated by freezing will need very little care. You may wash normally with soap and water and leave any small crusts in place. Vaseline to treated areas 2-3 times per day is a good idea, you do not need to keep them covered with bandages. If a large blister forms and breaks, you will want to apply a light dressing to the area. CHANGE DRESSING ONCE DAILY 1. Wash hands and remove the original dressing(s) in 12-24 hours. 2. Gently clean wound(s) with soap and water. Rinse with water and pat the wound dry. 3. Apply a thin layer of Vaseline ointment with a Q-tip. 4. Cover with a bandage if area(s) is not on the face or scalp. A dressing is not required on the face or scalp. Use non-adherent dressing and paper tape if you are sensitive to band-aid adhesive sensitive. 5. If you have any concerns about the healing wound, please either or our main Dermatology office in [place] at [phone]. If an emergency, please go to your nearest Emergency Department. 2. Lentigines and ephelides on face/back-No treatment needed, pt given reassurance. Skin cancer brochure given and ABCDE's discussed with patient. Annual full body skin examination (unless I recommended otherwise), self-examination, and sun protection (SPF 30+ daily to sun exposed areas, with reapplication every 1-2 hours when out in sun for long periods of time) advised and discussed. Recommended sooner follow up for new or changing lesions. These changes include rapid enlargement, changes in color or shape or symptoms, bleeding, or other concerns. The common features and behavior of non-melanoma skin cancers (e.g. BCC/SCC) as well as the ABCDEs and ugly duckling features of melanoma were also reviewed. Patient with son today. Photo(s) of #1-2 taken, pt verbally consented to having photo(s) taken. Follow-up: as needed Photos and chart reviewed by Dr. Darnell Morrissey. Presum ed diagnoses, expected natural histories, and management options discussed with the patient at length. Questions were addressed and anticipatory guidance provided. They were instructed to contact me (via general [employer] number and have a message sent to me from the deck supervisor that answers or through their My [employer] patient portal) if additional questions, concerns, or problems develop in the interim. If I deemed them a priority patient (and would have told them that at the end of the visit, ex: melanoma hx, transplant hx), then I told them that if they do not get scheduled for a follow up appointment in the appropriate time that we discussed, for them to follow the above instructions to make sure that we find a place for them on the schedule separately). -There were no barriers to learning and no other pain was related to today's visit. The patient and/or person accompanying patient demonstrates understanding of the visit and treatment. Gypsy Mujica PA-C 06/07/2024 1:[address] [place] [phone] documented in this encounter Nursing Notes * Kathrin Dietz LPN - 06/07/2024 1:41 PM EDT Patient identified by full name and date of Chief Complaint Patient presents with NEW PATIENT New pt. Here for lesions on face. documented in this encounter Plan of Treatment Upcoming Encounters Date Type Department Care Team (Late st Contact Info) Description 06/19/2024 10:30 AM EDT Office Visit Orthopaedics [facility] [address] [place] [phone] Ely Cabrales MD [address] [place] [phone] 07/11/2024 3:00 PM EDT Office Visit General Internal Medicine [facility] [address] [facility] [place] [address] Jennifer Sarkar MD [address] [facility] [place] [place] [place] [address] 07/23/2024 10:30 AM EDT Office Visit Urology, [facility] [address] [place] [address] Man Gu MD [address] [place] [id number] Scheduled Procedures Name Priority Associated Diagnoses Date/Ti [...] D LEVEL ONCE IN A LIFETIME-USE SMARTSET# 00570 Completed 03/14/2024, 10/20/2023, 08/17/2023, Additional history exists [...] this encounter Medical Devices Implanted Type Area Campaign Analyst Device Identifier Shelf Expiration Date Model / Serial / Lot Lens Intraoc 23.0 - [id number] - [id number] Implanted:Qty: 1 on 12/21/2016 by Raj Bernard MD at OR [facility] Left: Eye BAUSCH 06/20/2021 [id number] / [id number] / Lens Intraoc 22.0 - [id number] - [id number] Implanted:Qty: 1 on 01/06/2017 by Raj Bernard MD at OR [facility] Right: Eye BAUSCH 08/20/2021 [id number] / [id number] / [id number] documented as of this encounter Procedures Procedure Name Priority Date/Time Associated Diagnosis Comments DERM EXAM - DERM (IMAGES ONLY, NO REPORT) Routine 06/07/2024 2:03 PM EDT Seborrheic keratosis Verrucous keratosis Lentigines Ephelides documented in this encounter Results * DERM EXAM - DERM (IMAGES ONLY, NO REPORT) (06/07/2024 2:03 PM EDT) Narrative 06/07/2024 2:03 PM EDT This is an imaging study not interpreted or resulted by a [facility] or [facility] contracted radiologist. Gypsy Mujica PA-C RADIOLOGY ([facility] ) Final Result documented in this encounter Visit Diagnoses Diagnosis Verrucous keratosis- Primary Other specified dermatoses Seborrheic keratosis Other seborrheic keratosis Lentigines Other dyschromia Ephelides Other dyschromia documented in this encounter Advance Directives * [...] Power of Attor bj? No Care Teams Pouring Crane Operator Relationship Specialty Start Date End Date Jennifer Sarkar MD [address] [place] [address] [place] [address] PCP - General Internal Medicine 10/06/20 documented as of this encounter
--- OUTSIDE RECORDS SUMMARY | 2024-06-27 19:34 | External Medical Summary ---
Author Name Unknown Address Unknown Organization [id number][facility] [address] [place] [address] Laboratory Report Ordering Provider Test Date Status JESSA METZGER 06/26/2024 15:09:51 Final Observation Date Value Abnormality Reference (Units ) Status WBC, Total 06/26/2024 15:09:51 12.60 Above high normal 4 .00-10.80 (K/uL) Final RBC 06/26/2024 15:09:51 4.57 4.50-5.25 (M/uL) Final Hemoglobin 06/26/2024 15:09:51 14.3 14.0-16.8 (g/dL) Final HCT 06/26/2024 15:09:51 43.9 40.0-48.4 (%) Final MCV 06/26/2024 15:09:51 96.1 82.0-99.5 (fL) Final MCH 06/26/2024 15:09:51 31.3 27.0-34.0 (pg) Final MCHC 06/26/2024 15:09:51 32.6 32.0-36.0 (g/dL) Final RDW 06/26/2024 15:09:51 14.1 11.5-15.5 (%) Final Platelets 06/26/2024 15:09:51 185 140-400 (K /uL) Final MPV 06/26/2024 15:09:51 9.7 6.6-11.1 ( fL) Final Performing Location [facility] [address] [place] [address]
--- OUTSIDE RECORDS SUMMARY | 2024-06-27 19:34 | External Medical Summary | Summary of Care ---
Author Name Unknown Organization [facility] Address [address] [facility] [place] [address] Phone [phone] Care Team Providers Care Broadloom Weaver Name Role Phone Jennifer Sarkar MD Primary Care Provider [phone] Reason for Visit * Reason Comments eRx-Medication Refill Encounter Details Date Type Department Care Team (Late st Contact Info) Description 05/27/2024 Refill General Internal Medicine [facility] [address] [facility] [place] [address] Jennifer Sarkar MD [address] [place] [address] Dizziness; Benign paroxysmal positional vertigo, unspecified laterality Allergies Active Allergy Reactions Criticality Noted Date Comments Food (See Comments) 03/21/2018 Other reaction(s): WAS TOLD NOT TO TAKE grapefruit Tramadol Other (Please comment) High 10/06/2020 Hallucinations documented as of this encounter (statuses as of 05/28/2024) Medications NITROGLYCERIN 0.4 MG SL SUBLIndications:Old myocardial [...] Active Additional Information Patient taking differently:1,000 mg [id number] PRN, ,may take 3rd dose in between --12/21/2021, Reported on 05/09/2024 Saline Nasal Gel (Nasogel)Indication s:Chronic respiratory failure with hypoxia (HCC),Supplemental oxygen dependent,Nasal septal perforation,Nose dryness Administer into each nostril daily. 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 Hypercalcemia 12/03/2022 Supplemental oxygen dependent 05/06/2022 Nasal septal perforation 05/06/2022 Chronic respiratory failure with hypoxia 022 Granulomatous lung disease 09/18/2021 Chronic rhinitis 06/10/2021 Schatzki's ring of distal esophagus 06/10/2021 Chronic right-sided heart failure 04/08/2020 Coronary artery disease invo lving mesa grande coronary artery of mesa grande heart without angina pectoris 11/21/2018 Abnormality of [...] as of this encounter (statuses as of 05/28/2024) Resolved Problems Problem Noted Date Diagnosed Date [...] as of this encounter (statuses as of 05/28/2024) Immunizations Name Administration Dates Next Due COVID-19 mRNA, LNP-s, No Pre serve, 2-Dose Series ([employer]) 05/14/2020,04/18/2020 Covid-19, Mrna, Lnp-s, Pf, B ivalent, [...] Industry Job Start Date Job End Date [employer] Not on file Not on file Not on file documented as of this encounter Miscellaneous Notes * Telephone Encounter - Brandon Levine [facility] - 05/28/2024 1:54 PM EDTRefused Prescriptions: Disp Refills Meclizine HCl 12.5 MG Oral Tablet (Antiver*30 Tab*0 Sig: TAKE 1TABLET BY MOUTH DAILY NEEDED FOR DIZZINESSRefused By: BRANDON LEVINE for Refusal: RefillNot Appropriate documented in this encounter Plan of Treatment Upcoming Encounters Date Type Department Care Team (Late st Contact Info) Description 05/31/2024 10:40 AM EDT Office Visit Neurology [facility] [address] [facility] [place] [address] Ana María Santos MD [address] [facility] [place] [address] 06/07/2024 2:00 PM EDT Office Visit [address] [place] [phone] Gypsy Mujica PA-C [address] [place] [address] [place] [address] 06/19/2024 10:30 AM EDT Office Visit Orthopaedics [facility] [address] [place] [phone] Ely Cabrales MD [address] [place] [phone] 07/11/2024 3:00 PM EDT Office Visit General Internal Medicine [facility] [address] [place] [address] Jennifer Sarkar MD [address] [facility] [place] [address] 07/23/2024 10:30 AM EDT Office Visit Urology, [facility] [address] [place] [phone] Man Gu MD [address] [place] [id number] Scheduled Procedures Name Priority Associated Diagnoses Date/Ti [...] D LEVEL ONCE IN A LIFETIME-USE SMARTSET# [id number] Completed 03/14/2024, 10/20/2023, 08/17/2023, Additional history exists [...] this encounter Medical Devices Implanted Type Area Weed Burner Device Identifier Shelf Expiration Date Model / Serial / Lot Lens Intraoc 23.0 - [id number] - [id number] Implanted:Qty: 1 on 12/21/2016 by Raj Bernard MD at OR [facility] Left: Eye BAUSCH & LOMB 06/20/2021 [id number] / [id number] / Lens Intraoc 22.0 - [id number] - [id number] Implanted:Qty: 1 on 01/06/2017 by Raj Bernard MD at OR [facility] Right: Eye BAUSCH & LOMB 08/20/2021 [id number] / [id number] / [id number] documented as of this encounter Visit Diagnoses [...] Power of Attor bj? No Care Teams Broadloom Weaver Relationship Specialty Start Date End Date Jennifer Sarkar MD [address] [place] [address] PCP - General Internal Medicine 10/06/20 documented as of this encounter
--- OUTSIDE RECORDS SUMMARY | 2024-06-27 19:34 | External Medical Summary | Summary of Care ---
Author Name Unknown Organization [facility] Address [address] [facility] [place] [address] Phone [phone] Care Team Providers Care Brown Stock Washer Name Role Phone Jennifer Sarkar MD Primary Care Provider [phone] Reason for Visit * Reason Onset Date Comments Home Health 06/22/2024 Encounter Details Date Type Department Care Team (Late st Contact Info) Description 06/22/2024 Telephone General Internal Medicine [facility] [address] [facility] [place] [address] Jennifer Sarkar MD 200 [place] [address] Home Health Allergies Active Allergy Reactions Criticality Noted Date Comments Food (See Comments) 03/21/2018 Other reaction(s): WAS TOLD NOT TO TAKE grapefruit Tramadol Other (Please comment) High 10/06/2020 Hallucinations documented as of this encounter (statuses as of 06/25/2024) Medications NITROGLYCERIN 0.4 MG SL SUBLIndications:Old myocardial [...] 14 g 05/07/19 23 Active oxygen 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: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 jonathan respiratory failure with hypoxia (HCC),Chronic right-sided [...] Tablet (Lasix)Indications: Coronary artery disease involving [place] coronary artery of [place] heart without angina pectoris,Chronic right-sided heart failure [...] as of this encounter (statuses as of 06/25/2024) Active Problems Problem Noted Date Diagnosed Date Calculus of kidney 04/18/2024 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 Hypercalcemia 12/03/2022 Supplemental oxygen dependent 05/06/2022 Nasal septal perforation 05/06/2022 Chronic respiratory failure with hypoxia 022 Granulomatous lung disease 09/18/2021 Chronic rhinitis 06/10/2021 Schatzki's ring of distal esophagus 06/10/2021 Chronic right-sided heart failure 04/08/2020 Coronary artery disease invo lving [place] coronary artery of [place] heart without angina pectoris 11/21/2018 Abnormality of [...] as of this encounter (statuses as of 06/25/2024) Resolved Problems Problem Noted Date Diagnosed Date [...] as of this encounter (statuses as of 06/25/2024) Immunizations Name Administration Dates Next Due COVID-19 mRNA, LNP-s, No Pre serve, 2-Dose Series (Accountable) 05/14/2020,04/18/2020 Covid-19, Mrna, Lnp-s, Pf, B ivalent, [...] Industry Job Start Date Job End Date [place] [employer] Not on file Not on file Not on file documented as of this encounter Miscellaneous Notes * Telephone Encounter - Lacie Abreu LPN - 06/25/2024 8:47 AM EDT Ceci from [facility] Home Health advised. * Telephone Encounter - Jennifer Sarkar MD - 06/22/2024 4:39 PM EDT Noted,Agree for additional therapy. They can discuss with his daughter for SW consult. Please obtain copy of last speech pathology evaluation at [facility] * Telephone Encounter - Beverley Kidd LPN - 06/22/2024 4:05 PM EDT Ulisses, calling from [facility] HH speech therapy calling will fax over the order for her to continue to see him 2 times a week for 1 week and 1 time a week for 2 weeks. Also wants to let Dr. Sarkar know that Patient should be on pureed salad for now and has been eating other soft foods since being home. He needs reminders to wear his oxygen, when she arrived today he di dnot have it on it was 82 afterhaving it on it went up. She is suggesting more in home care due to needing more ques Also may be asking if family agrees to social work consult. documented in this encounter Plan of Treatment Upcoming Encounters Date Type Department Care Team (Late st Contact Info) Description 06/26/2024 3:30 PM EDT Office Visit Orthopaedics [facility] [address] [place] [place] [phone] Ely Cabrales MD [address] [phone] 07/23/2024 10:30 AM EDT Office Visit Urology, [facility] [address] [address] Man Gu MD [address] [place] [address] 08/03/2024 10:20 AM EDT Office Visit General Internal Medicine [facility] [address] [facility] [place] [address] Jennifer Sarkar MD [address] [facility] [place] [address] 12/11/2024 2:20 PM EDT Office Visit Neurology [facility] [address] [facility] [place] [address] Wan Ureña MD [address] [place] [address] Scheduled Procedures Name Priority Associated Diagnoses Date/Ti [...] D LEVEL ONCE IN A LIFETIME-USE SMARTSET# 89785 Completed 03/14/2024, 10/20/2023, 08/17/2023, Additional history exists [...] this encounter Medical Devices Implanted Type Area Surgical Services Asst Device Identifier Shelf Expiration Date Model / Serial / Lot Lens Intraoc 23.0 - [id number] - [id number] Implanted:Qty: 1 on 12/21/2016 by Raj Bernard MD at OR [facility] Left: Eye BAUSCH 06/20/2021 [id number] / [id number] / Lens Intraoc 22.0 - [id number] - [id number] Implanted:Qty: 1 on 01/06/2017 by Raj Bernard MD at OR [facility] Right: Eye BAUSCH 08/20/2021 [id number] / [id number] / [id number] documented as of this encounter Advance Directives * Full Code (Latest Code Status on File) Date Activated Date Inactivated Comments 01/06/2017 12:19 PM 01/10/2017 11:00 AM This ord er reflects the patients wishes and were consensually agreed upon. * Full Code Date Activated Date Inactivated Comments 12/21/2016 1:46 PM 12/21/2016 8:34 PM This orde r reflects the patients wishes and were consensually [...] Power of Attor bj? No Care Teams Brown Stock Washer Relationship Specialty Start Date End Date Jennifer Sarkar MD 200 [place] [address] PCP - General Internal Medicine 10/06/20 documented as of this encounter
--- OUTSIDE RECORDS SUMMARY | 2024-06-27 19:34 | External Medical Summary ---
Author Name Unknown Address Unknown Organization [facility] [place] [address] Laboratory Report Ordering Provider Test Date Status JESSA METZGER 06/26/2024 15:09:51 Final Observation Date Value Abnormality Reference (Units ) Status Nucleated erythrocytes/100 leukocytes [Ratio] in Blood by Automated count 06/26/2024 15:09:51 Final Performing Location [facility] [place] [address]
--- OUTSIDE RECORDS SUMMARY | 2024-06-27 19:34 | External Medical Summary | Summary of Care ---
Author Name Unknown Organization [facility] Address [address] [facility] [place] [address] Phone [phone] Care Team Providers Care Plate Glass Polisher Name Role Phone Jennifer Sarkar MD Primary Care Provider [phone] Reason for Visit * Reason Onset Date Comments Advice 06/21/2024 Encounter Details Date Type Department Care Team (Late st Contact Info) Description 06/21/2024 Telephone General Internal Medicine [facility] 200 [place] [address] Jennifer Sarkar MD 200 [place] [address] Advice Allergies Active Allergy Reactions Criticality Noted Date Comments Food (See Comments) 03/21/2018 Other reaction(s): WAS TOLD NOT TO TAKE grapefruit Tramadol Other (Please comment) High 10/06/2020 Hallucinations documented as of this encounter (statuses as of 06/21/2024) Medications NITROGLYCERIN 0.4 MG SL SUBLIndications:Old myocardial [...] 14 g 05/07/19 23 Active oxygen 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: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 90 Tablet 1 05/22/19 25 Active Acetaminophen 325 MG Oral Tablet (Tylenol) Take 1 Tablet by mouth every 6 hours as needed. Active Magnesium Hydroxide 400 MG/5ML Oral Suspension (Mom) Take 30 mL by mouth daily as needed. 04/27/19 25 Active Lidocaine 4 % External Patch Place 1 Patch topically on the skin daily. 06/07/19 25 Active documented as of this encounter (statuses as of 06/21/2024) Active Problems Problem Noted Date Diagnosed Date [...] as of this encounter (statuses as of 06/21/2024) Resolved Problems Problem Noted Date Diagnosed Date [...] as of this encounter (statuses as of 06/21/2024) Immunizations Name Administration Dates Next Due COVID-19 mRNA, LNP-s, No Pre serve, 2-Dose Series ([employer]) 05/14/2020,04/18/2020 Covid-19, Mrna, Lnp-s, Pf, B ivalent, [...] Industry Job Start Date Job End Date [place] [employer] Not on file Not on file Not on file documented as of this encounter Miscellaneous Notes * Telephone Encounter - Jennifer Sarkar MD - 06/21/2024 10:57 AM EDT Ok. * Telephone Encounter - Angie Juarez LPN - 06/21/2024 10:08 AM EDT HH PT/OT/ST Eval Start of Care/Continuation Kandy MART, Calling from: [facility] Plan of care: 2 times per week for 3 weeks: Then 1 times a week for 4 weeks Focusing on: Speech, PT and OT, Continued respiratory assessment, dysphagia Concerns: no None Symptoms: none Vitals: T 96.8 P 58 RR 17 BP 118/70 SP O2 93 3 l Lung sounds Clear Weight 147 Blood sugar N/A Narrative: Start of care started 06/21/24 Call back Kandy with any advice or orders at [phone] Please fax new orders to [facility] Home Health Advised that additional visit orders will be signed by PCP and to fax to the office for signature * Telephone Encounter - Jose Antonio Hylton OSA - 06/21/2024 10:06 AM EDT Reason for patient's call: Kandy with [facility] health calling to speak with nurse Caller was transferred to Angie at the nurse line. documented in this encounter Plan of Treatment Upcoming Encounters Date Type Department Care Team (Late st Contact Info) Description 06/26/2024 3:30 PM EDT Office Visit Orthopaedics [facility] [address] [phone] Ely Cabrales MD [address] [place] [place] [phone] 07/23/2024 10:30 AM EDT Office Visit Urology, [facility] [address] [phone] Man Gu MD [address] [place] [address] 08/03/2024 10:20 AM EDT Office Visit General Internal Medicine [facility] [address] [facility] [place] [address] Jennifer Sarkar MD [address] [facility] [place] [address] 12/11/2024 2:20 PM EDT Office Visit Neurology [facility] [address] [facility] [place] [address] Wan Ureña MD [address] [place] [address] Scheduled Procedures Name Priority Associated Diagnoses Date/Ti [...] D LEVEL ONCE IN A LIFETIME-USE SMARTSET# 52637 Completed 03/14/2024, 10/20/2023, 08/17/2023, Additional history exists [...] this encounter Medical Devices Implanted Type Area Commercial Attorney Device Identifier Shelf Expiration Date Model / Serial / Lot Lens Intraoc 23.0 - [id number] - [id number] Implanted:Qty: 1 on 12/21/2016 by Raj Bernard MD at OR [facility] Left: Eye BAUSCH 06/20/2021 [id number] / [id number] / Lens Intraoc 22.0 - [id number] - [id number] Implanted:Qty: 1 on 01/06/2017 by Raj Bernard MD at OR [facility] Right: Eye BAUSCH 08/20/2021 [id number] / [id number] / [id number] documented as of this encounter Advance Directives [...] Power of Attor bj? No Care Teams Plate Glass Polisher Relationship Specialty Start Date End Date Jennifer Sarkar MD [address] [place] [address], [place] [address] PCP - General Internal Medicine 10/06/20 documented as of this encounter
--- OUTSIDE RECORDS SUMMARY | 2024-06-27 19:34 | External Medical Summary ---
Author Name Unknown Address Unknown Organization [facility] [place] [address] Laboratory Report Ordering Provider Test Date Status ROBER ENRIQUEZ 06/26/2024 15:09:51 Final Observation Date Value Abnormality Reference (Units ) Status BUN 06/26/2024 15:09:51 8 6-20 (mg/dL) Final Creatinine 06/26/2024 15:09:51 0.9 0.6-1.2 (mg/dL) Final Glomerular filtration rate/1.73 sq M.predicted [Volume Rate/Area] in Serum, Plasma or Blood by Creatinine-based formula (CKD-EPI) 06/26/2024 15:09:51 84 >=60 (mL/min) Final eGFR is calculated based on the CKD-EPI 2020 equation. Sodium 06/26/2024 15:09:51 138 135-146 (m mol/L) Final Potassium 06/26/2024 15:09:51 3.6 3.5-5.1 (m mol/L) Final Cl 06/26/2024 15:09:51 92 Below low normal 98- 107 (mmol/L) Final CO2 06/26/2024 15:09:51 34 Above high normal 22 -32 (mmol/L) Final Anion gap 06/26/2024 15:09:51 12 7-15 (mmol /L) Final Glucose 06/26/2024 15:09:51 97 70-120 (mg /dL) Final Calcium 06/26/2024 15:09:51 10.1 8.4-10.2 ( mg/dL) Final Performing Location [facility] [address] [place] [address]
--- OUTSIDE RECORDS SUMMARY | 2024-06-27 19:34 | External Medical Summary | Summary of Care ---
Author Name Unknown Organization [facility] Address [address] [facility] [place] [address] Phone [phone] Care Team Providers Care Systems Consultant Name Role Phone Jennifer Sarkar MD Primary Care Provider [phone] Reason for Visit * Reason Onset Date Comments Abnormal Test Results 03/15/2024 Vit D Encounter Details Date Type Department Care Team (Late st Contact Info) Description 03/15/2024 Telephone Rheumatology [facility] [address] [place] [phone] Meryl Santiago [facility] [address] [facility] [address] Abnormal Test Results (Vit D) Allergies Active Allergy Reactions Criticality Noted Date Comments Food (See Comments) 03/21/2018 Other reaction(s): WAS TOLD NOT TO TAKE grapefruit Tramadol Other (Please comment) High 10/06/2020 Hallucinations documented as of this encounter (statuses as of 05/28/2024) Medications NITROGLYCERIN 0.4 MG SL SUBLIndications:Ol d [...] Active Additional Information Patient taking differently:1,000 mg HouiC0P PRN, ,may take 3rd dose in between [...] mRNA, LNP-s, No Pre serve, 2-Dose Series ([employer]) 05/14/2020,04/18/2020 Covid-19, Mrna, Lnp-s, Pf, B ivalent, 30 Mcg, IM, 12 yrs and above ([employer]) 07/01/2023 H1N1 2009 Influenza, IM 04/22/2009 PPD [...] Industry Job Start Date Job End Date [place] [employer] Not on file Not on file Not on file documented as of this encounter Miscellaneous Notes * Telephone Encounter - Raymundo Pyle LPN - 05/28/2024 12:02 PM EDT Spoke with daughter, application is still being worked on. * Telephone Encounter - Danica Mccauley OSA [...] EDT Was the FA application received for Prolia? * Telephone Encounter - Danica Mccauley OSA [...] unable to get Prolia due to the [id number] cost. Advised me to contact his daughter to discuss Prolia further. documented in this encounter Plan of Treatment Upcoming Encounters Date Type Department Care Team (Late st Contact Info) Description 05/31/2024 10:40 AM EDT Office Visit [facility] [address] [place] [address] Ana María Santos MD [address] [place] [address] 06/07/2024 2:00 PM EDT Office Visit [facility]ology[facility] [address] [phone] Gypsy Mujica PA-C [address] [place] [address] [place] [address] 06/19/2024 10:30 AM EDT Office Visit Orthopaedics [facility] [address] [place] [phone] Ely Cabrales MD [address] [place] [phone] 07/11/2024 3:00 PM EDT Office Visit General Internal Medicine [facility] 200 [facility] [place] [address] Jennifer Sarkar MD [address] [facility] [place] [address] 07/23/2024 10:30 AM EDT Office Visit Urology, [facility] [address] [place] [phone] Man Gu MD [address] [place] [id number] Scheduled Procedures Name Priority Associated Diagnoses Date/Ti [...] D LEVEL ONCE IN A LIFETIME-USE SMARTSET# [id number] Completed 03/14/2024, 10/20/2023, 08/17/2023, Additional history exists [...] this encounter Medical Devices Implanted Type Area Gut Puller Device Identifier Shelf Expiration Date Model / Serial / Lot Lens Intraoc 23.0 - [id number] - [id number] Implanted:Qty: 1 on 12/21/2016 by Raj Bernard MD at OR [facility] Left: Eye BAUSCH & LOMB 06/20/2021 [id number] / [id number] / Lens Intraoc 22.0 - [id number] - [id number] Implanted:Qty: 1 on 01/06/2017 by Raj Bernard MD at OR [facility] Right: Eye BAUSCH & LOMB 08/20/2021 [id number] / [id number] / [id number] documented as of this encounter Advance Directives [...] Power of Attor bj? No Care Teams Systems Consultant Relationship Specialty Start Date End Date Jennifer Sarkar MD 200 [facility] [place] [address] PCP - General Internal Medicine 10/06/20 documented as of this encounter
--- OUTSIDE RECORDS SUMMARY | 2024-06-27 19:34 | External Medical Summary | Summary of Care ---
Author Name Unknown Organization [facility] Address [address] [facility] [place] [address] Phone [phone] Care Team Providers Care [employer] Art Teacher Name Role Phone Jennifer Sarkar MD Primary Care Provider [phone] Reason for Visit * Reason Onset Date Comments Medical Records Request 05/09/2024 Encounter Details Date Type Department Care Team (Late st Contact Info) Description 05/09/2024 Telephone General Internal Medicine [facility] 200 [facility] [place] [address] Jennifer Sarkar MD 200 [place] [address] Medical Records Request Allergies Active Allergy Reactions Criticality Noted Date Comments Food (See Comments) 03/21/2018 Other reaction(s): WAS TOLD NOT TO TAKE grapefruit Tramadol Other (Please comment) High 10/06/2020 Hallucinations documented as of this encounter (statuses as of 06/11/2024) Medications NITROGLYCERIN 0.4 MG SL SUBLIndications:Old myocardial [...] Active Additional Information Patient taking differently:1,000 mg IvhiU2G PRN, ,may take 3rd dose in between --12/21/2021, Reported on 05/09/2024 Saline Nasal Gel (Nasogel)Indication s:Chronic respiratory failure with hypoxia (HCC),Supplemental oxygen dependent,Nasal septal perforation,Nose dryness Administer into each nostril daily. 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 Hypercalcemia 12/03/2022 Supplemental oxygen dependent 05/06/2022 Nasal septal perforation 05/06/2022 Chronic respiratory failure with hypoxia 022 Granulomatous lung disease 09/18/2021 Chronic rhinitis 06/10/2021 Schatzki's ring of distal esophagus 06/10/2021 Chronic right-sided heart failure 04/08/2020 Coronary artery disease invo lving [place] coronary artery of [place] heart without angina pectoris 11/21/2018 Abnormality of [...] as of this encounter (statuses as of 06/11/2024) Resolved Problems Problem Noted Date Diagnosed Date [...] as of this encounter (statuses as of 06/11/2024) Immunizations Name Administration Dates Next Due COVID-19 mRNA, LNP-s, No Pre serve, 2-Dose Series ([employer]) 05/14/2020,04/18/2020 Covid-19, Mrna, Lnp-s, Pf, B ivalent, 30 Mcg, IM, 12 yrs and above ([place] [employer]) 07/01/2023 H1N1 2009 Influenza, IM 04/22/2009 PPD [...] Industry Job Start Date Job End Date [place] [employer] Not on file Not on file Not on file documented as of this encounter Miscellaneous Notes * Telephone Encounter - Altagracia Shelton LPN - 05/24/2024 1:47 PM EDT Called medical records at [facility] again and got the voicemail for Zac Hu again. I left a message requesting patient's discharge summary from his admission in April. I added that this is the 3rd request we've made for these records and added that the patient is scheduled with us in a few weeks and the provider would like to have these records to review ahead of time. I provided our fax number as well as our call back # in case she has questions or there's a reason she can't provide the records. * Telephone Encounter - Hugh Mantilla RN - 05/16/2024 3:40 PM EDT Attempted to call Zac Mayte ([phone] ext [phone]) - medical records at [facility], there was no answer, left voicemail. When Zac returns call, ok for EZEQUIEL to relay message, please refer to below documentation. If needed, can transfer to dedicated nurse line. "I called and left a message at [facility], Dr Sarkar is looking for a discharge summary for this patient, we already have the nurse discharge note, but need the discharge summary to be faxed." * Telephone Encounter - Lacie Abreu LPN - 05/09/2024 4:55 PM EDT I called and left a message at [facility], Dr Sarkar is looking for a discharge summary for this patient, we already have the nurse discharge note, but need the discharge summary to be faxed. documented in this encounter Plan of Treatment Upcoming Encounters Date Type Department Care Team (Late st Contact Info) Description 06/19/2024 10:30 AM EDT Office Visit Orthopaedics [facility] [address] [place] [phone] Ely Cabrales MD [address] [place] [phone] 07/11/2024 3:00 PM EDT Office Visit General Internal Medicine [facility] [address] [place] [address] Jennifer Sarkar MD [address] [place] [address] 07/23/2024 10:30 AM EDT Office Visit Urology, [facility] [address] [place] [phone] Man Gu MD [address] [place] [address] Scheduled Procedures Name Priority Associated Diagnoses Date/Ti [...] D LEVEL ONCE IN A LIFETIME-USE SMARTSET# [id number] Completed 03/14/2024, 10/20/2023, 08/17/2023, Additional history exists [...] this encounter Medical Devices Implanted Type Area Command Post Craftsman Device Identifier Shelf Expiration Date Model / Serial / Lot Lens Intraoc 23.0 - [id number] - [id number] Implanted:Qty: 1 on 12/21/2016 by Raj Bernard MD at OR [facility] Left: Eye BAUSCH 06/20/2021 [id number] / [id number] / Lens Intraoc 22.0 - [id number] - [id number] Implanted:Qty: 1 on 01/06/2017 by Raj Bernard MD at OR [facility] Right: Eye BAUSCH 08/20/2021 [id number] / [id number] / [id number] documented as of this encounter Advance Directives [...] Power of Attor bj? No Care Teams [employer] Art Teacher Relationship Specialty Start Date End Date Jennifer Sarkar MD [address] [facility] [place] [address] PCP - General Internal Medicine 10/06/20 documented as of this encounter
--- OUTSIDE RECORDS SUMMARY | 2024-06-27 19:34 | External Medical Summary | Summary of Care ---
Author Name Unknown Organization [facility] Address [address] [place] [address] Phone [phone] Care Team Providers Care Food Beverage Supervisor Name Role Phone Jennifer Sarkar MD Primary Care Provider [phone] Encounter Details Date Type Department Care Team (Latest Contact Info) Description 06/07/2024 2:03 PM EDT - 06/07/2024 11:59 PM EDT Hospital Encounter Radiology Film File [address] [place] [address] Arrived Discharge Disposition: Home - Self Care Allergies Active Allergy Reactions Criticality Noted Date Comments Food (See Comments) 03/21/2018 Other reaction(s): WAS TOLD NOT TO TAKE grapefruit Tramadol Other (Please comment) High 10/06/2020 Hallucinations documented as of this encounter (statuses as of 06/08/2024) Medications NITROGLYCERIN 0.4 MG SL SUBLIndications:Old myocardial [...] Active Additional Information Patient taking differently:1,000 mg [id number] PRN, ,may take 3rd dose in between --12/21/2021, Reported on 05/09/2024 Saline Nasal Gel (Nasogel)Indication s:Chronic respiratory failure with hypoxia (HCC),Supplemental oxygen dependent,Nasal septal perforation,Nose dryness Administer into each nostril daily. 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 respiratory failure with hypoxia (HCC),Chronic right-sided [...] Oral Tablet (Lasix)Indications: Coronary artery disease involving the [place] coronary artery of [place] heart without angina pectoris,Chronic right-sided heart failure [...] as of this encounter (statuses as of 06/08/2024) Active Problems Problem Noted Date Diagnosed Date [...] hypoxemia 06/08/2007 Overview (11/13/2012): 3 LPM at [facility] SPINAL STENOSIS-LUMBAR 07/29/2005 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 Essential tremor documented as of this encounter (statuses as of 06/08/2024) Resolved Problems Problem Noted Date Diagnosed Date [...] as of this encounter (statuses as of 06/08/2024) Immunizations Name Administration Dates Next Due COVID-19 mRNA, LNP-s, No Pre serve, 2-Dose Series (Tempeest) 05/14/2020,04/18/2020 Covid-19, Mrna, Lnp-s, Pf, B ivalent, [...] Industry Job Start Date Job End Date [employer] Not on file Not on file Not on file documented as of this encounter Plan of Treatment Upcoming Encounters Date Type Department Care Team (Late st Contact Info) Description 06/19/2024 10:30 AM EDT Office Visit Orthopaedics [facility] [address] [phone] Ely Cabrales MD [address] [phone] 07/11/2024 3:00 PM EDT Office Visit General Internal Medicine [facility] [place] [address] [place] [address] Jennifer Sarkar MD [address] [place] [address] 07/23/2024 10:30 AM EDT Office Visit Urology, [facility] [address] [place] [...] D LEVEL ONCE IN A LIFETIME-USE SMARTSET# [id number] Completed 03/14/2024, 10/20/2023, 08/17/2023, Additional history exists [...] this encounter Medical Devices Implanted Type Area Animal Behaviorist Device Identifier Shelf Expiration Date Model / Serial / Lot Lens Intraoc 23.0 - [id number] - [id number] Implanted:Qty: 1 on 12/21/2016 by Raj Bernard MD at [facility] Left: Eye BAUSCH 06/20/2021 [id number] / [id number] / Lens Intraoc 22.0 - [id number] - [id number] Implanted:Qty: 1 on 01/06/2017 by Raj Bernard MD at [facility] Right: Eye BAUSCH 08/20/2021 [id number] / [id number] / [id number] documented as of this encounter Procedures Procedure [...] interpreted or resulted by a [facility] or [employer] contracted radiologist. Gypsy Mujica PA-C RADIOLOGY ([facility] ) Final Result documented in this encounter Advance Directives * [...] of Attor bj? No Care Teams Food Beverage Supervisor Relationship Specialty Start Date End Date Jennifer Sarkar MD [address] [place] [address] PCP - General Internal Medicine 10/06/20 documented as of this encounter
--- OUTSIDE RECORDS SUMMARY | 2024-06-27 19:34 | External Medical Summary | Summary of Care ---
Author Name Unknown Organization [facility] Address [address] [facility] [place] [address] Phone [phone] Care Team Providers Care Travel Service Consultant Name Role Phone Jennifer Sarkar MD Primary Care Provider [phone] Reason for Visit * Reason Comments NEW PATIENT New pt. Here for les ions on face. * Evaluate & Treat - Unlimited Visits (Within 30 days (routine)) - Authorized Specialty Diagnoses / Procedures Referred By Derek knight Referred To Contact Dermatology Diagnoses Skin lesion of face Jennifer Sarkar MD [address] [place] [address] Phone: tel: fax: Referral ID Status Reason Start Date Expiration Date Visits Requested Visits Authorized [id number] Authorized Specialty Services Required [phone] Encounter Details Date Type Department Care Team (Late st Contact Info) Description 06/07/2024 2:00 PM EDT Office [address] [place] [phone] Gypsy Mujica PA-C [address] [place] [address] [place] [address] Verrucous keratosis*; Seborrheic keratosis; Lentigines; Ephelides Allergies [...] Active Additional Information Patient taking differently:1,000 mg [id number] PRN, ,may take 3rd dose in between --12/21/2021, Reported on 05/09/2024 Saline Nasal Gel (Nasogel)Indication s:Chronic respiratory failure with hypoxia (HCC),Supplemental oxygen dependent,Nasal septal perforation,Nose dryness Administer into each nostril daily. 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 (HCC),Chronic right-sided [...] Oral Tablet (Lasix)Indications: Coronary artery disease involving [place] coronary artery of [place] heart without angina pectoris,Chronic right-sided heart failure [...] failure 04/08/2020 Coronary artery disease invo lving [place] coronary artery of [place] heart without angina pectoris 11/21/2018 Abnormality of [...] (11/13/2012): 3 LPM at bedtime [facility] [employer] SPINAL STENOSIS-LUMBAR 07/29/2005 Idiopathic scoliosis 03/04/2005 Acquired [...] mRNA, LNP-s, No Pre serve, 2-Dose Series ([employer]) 05/14/2020,04/18/2020 Covid-19, Mrna, Lnp-s, Pf, B ivalent, 30 Mcg, IM, 12 yrs and above ([employer]) 07/01/2023 H1N1 2009 Influenza, IM 04/22/2009 PPD [...] Industry Job Start Date Job End Date [employer] Not on file Not on file [...] NONE Reviewed, same day as visit, 0 [employer] D[facility] lab work(s)/pathology report(s) as well as those sent by referring provider prior to seeing pt. 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 Nocturnal hypoxemia 06/08/2007 3 LPM at bedtime [facility] [employer] OBSTRUCTIVE SLEEP APNEA - refuses CPAP 01/15/2008 [...] either or our main Dermatology office in [place] at [phone]. If an emergency, please go to your [...] were instructed to contact me (via general [employer] number and have a message sent to me from the administrative support assoc that answers or through their My [employer] patient portal) if additional questions, concerns, or [...] 1:[address] [place] [phone] documented in this encounter Nursing Notes * Kathrin Dietz LPN - 06/07/2024 1:41 PM EDT Patient identified by full name and date of Chief Complaint Patient presents with NEW PATIENT New pt. Here for lesions on face. documented in this encounter Plan of Treatment Upcoming Encounters Date Type Department Care Team (Late st Contact Info) Description 06/19/2024 10:30 AM EDT Office Visit Orthopaedics [facility] [address] [place] [phone] Ely Cabrales MD [address] [place] [phone] 07/11/2024 3:00 PM EDT Office Visit General Internal Medicine [facility] [address] [place] [address] Jennifer Sarkar MD [address] [place] [address] 07/23/2024 10:30 AM EDT Office Visit Urology, [facility] [address] [place] [phone] Man Gu MD [address] [place] [id number] Scheduled Procedures Name Priority Associated Diagnoses Date/Ti [...] D LEVEL ONCE IN A LIFETIME-USE SMARTSET# [id number] Completed 03/14/2024, 10/20/2023, 08/17/2023, Additional history exists [...] this encounter Medical Devices Implanted Type Area Safety Sealer Device Identifier Shelf Expiration Date Model / Serial / Lot Lens Intraoc 23.0 - [id number] - [id number] Implanted:Qty: 1 on 12/21/2016 by Raj Bernard MD at [facility] Left: Eye BAUSCH 06/20/2021 [id number] / [id number] / Lens Intraoc 22.0 - [id number] - [id number] Implanted:Qty: 1 on 01/06/2017 by Raj Bernard MD at [facility] Right: Eye BAUSCH 08/20/2021 [id number] / [id number] / [id number] documented as of this encounter Procedures Procedure [...] interpreted or resulted by a [facility] or [facility] contracted radiologist. Gypsy Mujica PA-C RADIOLOGY ([facility] ) Final Result documented in this [...] Power of Attor bj? No Care Teams Travel Service Consultant Relationship Specialty Start Date End Date Jennifer Sarkar MD [address] [place] [address] [place] [address] PCP - General Internal Medicine 10/06/20 documented as of this encounter
[2024-06-27] MEDS: Albuterol HFA 8 GM Inhaler (Combivent Respimat P&T Subs) INH SCH (20:18)
[2024-06-27] MEDS: Ipratropium HFA Inhaler (Combivent Respimat P&T Subs) INH SCH (20:19)
[2024-06-27] MEDS: PROPRANOLOL HCL 20 MG TAB PO SCH (20:28)
[2024-06-27] MEDS: TAMSULOSIN HCL 0.4 MG CAP PO SCH (20:28)
[2024-06-27] MEDS ORDERED: IPRATROPIUM BROMIDE/ALBUTEROL respimat INH INH SCH (21:00)
[2024-06-27] MEDS ORDERED: FUROSEMIDE 40 MG TAB PO SCH (21:00)
[2024-06-28] MEDS: LEVOTHYROXINE SODIUM 100 MCG TABLET PO SCH (06:09)
[2024-06-28] MEDS: PANTOprazole 40 MG TAB PO SCH (08:41)
[2024-06-28] MEDS: ROSUVASTATIN CALCIUM 5 MG TAB PO SCH (08:41)
[2024-06-28] MEDS: DULoxetine HCL 60 MG CAP PO SCH (08:41)
[2024-06-28] MEDS: allopurinoL 100 MG TAB PO SCH (08:41)
[2024-06-28] MEDS: MONTELUKAST SODIUM 10 MG TABLET PO SCH (08:41)
[2024-06-28] MEDS: FINASTERIDE 5 MG TAB PO SCH (08:41)
[2024-06-28] MEDS: OXYBUTYNIN CHLORIDE XL 5 MG TABCR PO SCH (08:41)
[2024-06-28] MEDS: CLOPIDOGREL BISULFATE 75 MG TAB PO SCH (08:41)
[2024-06-28] MEDS: CITALOPRAM 20 MG TAB PO SCH (08:42)
[2024-06-28] MEDS: LIDOCAINE 5% 1 PATCH TD SCH (08:43)
[2024-06-28] MEDS: DOCUSATE SODIUM 100 MG CAP PO SCH (08:46)
[2024-06-28] MEDS: POTASSIUM CHLORIDE CRTAB 20 MEQ TABCR PO SCH (08:46)
[2024-06-28 08:59] LABS: Basophils # (auto) 0.03 K/uL (0.00-0.20); Basophils % (auto) 0.2 %; Hematocrit (blood only) 41.3 % (42.0-52.0); Hemoglobin 13.7 g/dl (14.0-18.0); Immature Granulocytes # (auto) 0.17 K/uL (0.01-0.20); Lymphocytes % (auto) 6.6 %; Mean Corpuscular Hemoglobin 30.9 pg (25.0-34.0); Mean Corpuscular Hgb Conc 33.2 g/dL (32.0-36.0); Mean Platelet Volume 9.9 fL (9.4-12.4); Monocytes # (auto) 0.92 K/uL (0.11-0.59); Monocytes % (auto) 5.5 %; Neutrophils # (auto) 14.37 K/uL (1.40-6.50); Neutrophils % (auto) 86.7 %; Platelet Count 164 K/uL (130-400); RDW Coefficient of Variation 14.1 % (11.5-14.5); RDW Standard Deviation 48.1 fL (36.4-46.3); Red Blood Count 4.44 M/uL (4.70-6.10); White Blood Count 16.59 K/ul (4.8-10.8)
[2024-06-28 10:13] LABS: BUN Creatinine Ratio 22.4 (10-20); Calcium 9.5 mg/dl (8.6-10.3); Creatinine Clr Calc Pharmacy 73.9 ml/min; Magnesium 1.8 mg/dl (1.7-2.4)
--- NOTE | 2024-06-28 11:06 | Hospitalist Progress Note ---
Date of Service June 28, 2024 Assessment & Plan (1) Fall: (2) Ambulatory dysfunction: (3) Abnormal urinalysis: (4) Chronic respiratory failure: (5) (HFpEF) heart failure with preserved ejection fraction: (6) Hyperlipidemia: (7) BPH (benign prostatic hyperplasia): Plan: Patient is 83 year old male with PMH chronic respiratory failure with hypoxia on home oxygen, hypothyroidism, hyperlipidemia, history of hypercalcemia, granulomatous lung disease, sleep apnea, restrictive lung disease, elevated hemidiaphragm, history of cad s/p stent hypertension, chronic right-sided heart failure, Schatzki's ring of the distal esophagus, idiopathic scoliosis, osteop orosis, essential tremor, depression, abnormality of gait and others listed below presented to ER with c/o losing balance fall last night and unable to get himself up. History recurrent hospital admissions for ambulatory dysfunction. Ambulatory Dysfunction Fall- complained to have some dizziness prior to the fall Thoracic xray: No acute fracture seen at the thoracic spine. Lumbar xray: No acute fractures seen Ribs with CXR: Possible nondisplaced fracture anterior left 10th rib with no pneumothorax. Fall precautions PT/OT eval Anticipate pt will need acute rehab as lives home alone Will get orthostatic vitals Possible Left 10th rib fracture Incentive spirometry Lidocaine patch Tylenol as needed Denies any significant pain and does not have any shortness of breath at rest Abnormal UA- has history of complicated UTI UA:1+leuk esterase, 11-20 WBC, negative bacteria, negative nitrite Chronic leukocytosis. WBC: 15 (was 15 on /) Reports some dysuria. chronic urgency and sensation incomplete bladder emptyin Rocephin for now pending culture White count remains elevated at 16.59 Hypokalemia K: 3.4 Replace and monitor Hypothyroidism TSH: 0.02 Will decrease home levothyroxine from 112mcg to 100mcg daily Will need follow up TSH in 6 weeks Chronic respiratory failure with hypoxia, on 3 to 4 L of oxygen Restrictive lung disease/granulomatous lung disease Oxygen requirement is at baseline 3-4 L Incentive spirometry Continue home oxygen Continue home Combivent Chronic HFpEF Appears euvolemic Continue Lasix 40 mg BID and spironolactone Monitor volume status Coronary artery disease HLD S/P stent Continue Plavix, statin, propranolol Essential tremors Continue on propranolol BPH Continue on dutasteride and tamsulosin Mood disorder Continue duloxetine, citalopram DVT Prophylaxis Lovenox SQ Admit med tele Full Code as per discussion with pt Follows with Dr Sarkar for routine care Admission and Anticipated Discharge Date Admission Date: June 27, 2024 Subjective 06/28/2024 The patient was seen and examined in medical telemetry unit He was admitted with a fall and noted to have possible UTI Has been feeling better since admission Denies any significant symptoms Review of Systems Review of Systems: All systems reviewed and are unremarkable except as noted below Physical Exam Physical Exam: Lying in bed without any acute distress Constitutional: well developed, well nourished, + ill appearing and average body habitus Eyes: PERRL, conjunctivae normal, anicteric sclerae ENMT: external ear and nose normal, oropharynx normal Neck: trachea midline, no thyromegaly Respiratory: no respiratory distress Auscultation: lungs clear to auscultation bilaterally Cardiovascular: Rate/Rhythm: regular rate and regular rhythm; not tachycardic Heart Sounds: normal S1 and normal S2; no murmur Extremities: no edema Gastrointestinal (Abdomen): Inspection/Auscultation: normal bowel sounds; abdomen not distended Percussion/Palpation: abdomen soft; abdomen nontender Musculoskeletal: No acute arthritis involving any of the joint. Minimal tenderness noted with palpation of the left lateral thoracic wall Neurologic: normal touch/pain/proprioception and moves all extremities; no focal motor deficits Has significant tremors involving both upper extremities especially with activity Lymphatic: no cervical or axillary lymphadenopathy Results & Data Results & Data Vital Signs (Past 12 Hours) Vital Signs Temp Pulse Pulse Resp BP BP Pulse Ox 06/28/24 07:43 36.8 C 62 16 108/64 92 06/28/24 07:37 06/28/24 07:34 60 15 93 06/28/24 07:02 58 L 06/28/24 03:05 36.3 C L 58 L 18 106/59 L 90 06/27/24 23:35 O2 Del Method O2 Flow Rate 06/28/24 07:43 Nasal Cannula 2 06/28/24 07:37 Nasal Cannula 4 06/28/24 07:34 Nasal Cannula 2 06/28/24 07:02 06/28/24 03:05 Nasal Cannula 2 06/27/24 23:35 Nasal Cannula 4 Laboratory Results Short CBC 06/27/24 06/28/24 Range/Units 12:25 08:23 WBC 15.91 H 16.59 H (4.8-10.8) K/ul Hgb 15.4 13.7 L (14.0-18.0) g/dl Hct 45.7 41.3 L (42.0-52.0) % Plt Count 197 164 (130-400) K/uL BMP 06/27/24 06/28/24 12:25 08:23 Sodium 138 141 Potassium 3.4 L 4.0 Chloride 92 L 98 Carbon Dioxide 37 H 37 H BUN 12 15 Creatinine 0.80 0.67 Glucose 146 H 135 H Calcium 10.4 H 9.5 Cardiac Enzymes 06/27/24 Range/Units 12:25 Total Creatine Kinase 209 (30-223) U/L Liver Function 06/27/24 Range/Units 12:25 Total Bilirubin 0.9 (0.2-1.0) mg/dl AST 19 (13-39) U/L ALT 10 (7-52) U/L Alkaline Phosphatase 113 H (34-104) U/L Albumin 4.5 (3.4-5.0) gm/dl Urine 06/27/24 Range/Units 14:05 Urine Color Yellow Urine Appearance Clear (Clear) Urine pH 6.5 (4.5-7.5) Ur Specific [place] 1.015 (1.000-1.030) Urine Protein 2+ H (Negative) Urine Glucose (UA) Negative (Negative) Medications Administered Current Inpatient Medications Acetaminophen (Acetaminophen 325 Mg Tab) 650 mg PO Q4H PRN PRN Reason: Pain or Fever Stop: 07/27/24 16:46 Albuterol (Albuterol Hfa 8 Gm Inhaler (Combivent Respimat P&T Subs)) 1 puffs INH QIDR [facility]; Protocol Stop: 07/27/24 18:59 Last Admin: 06/28/24 07:34 Dose: 1 puffs Allopurinol (Allopurinol 100 Mg Tab) 200 mg PO DAILY [facility] Stop: 07/28/24 08:59 Last Admin: 06/28/24 08:41 Dose: 200 mg Citalopram Hydrobromide (Citalopram 20 Mg Tab) 20 mg PO DAILY [facility] Stop: 07/28/24 08:59 Last Admin: 06/28/24 08:42 Dose: 20 mg Clopidogrel Bisulfate (Clopidogrel Bisulfate 75 Mg Tab) 75 mg PO DAILY [facility] Stop: 07/28/24 08:59 Last Admin: 06/28/24 08:41 Dose: 75 mg Docusate Sodium (Docusate Sodium 100 Mg Cap) 100 mg PO DAILY [facility] Stop: 07/28/24 08:59 Last Admin: 06/28/24 08:46 Dose: 100 mg Duloxetine HCl (Duloxetine Hcl 60 Mg Cap) 60 mg PO DAILY [facility] Stop: 07/28/24 08:59 Last Admin: 06/28/24 08:41 Dose: 60 mg Enoxaparin Sodium (Enoxaparin Inj 40 Mg/0.4 Ml Syr) 30 mg SQ Q24H [facility] Stop: 07/27/24 16:46 Last Admin: 06/27/24 17:50 Dose: Not Given Finasteride (Finasteride 5 Mg Tab) 5 mg PO DAILY [facility] Stop: 07/28/24 08:59 Last Admin: 06/28/24 08:41 Dose: 5 mg Furosemide (Furosemide 40 Mg Tab) 40 mg PO BID17 [facility] Stop: 07/27/24 16:59 Last Admin: 06/28/24 08:42 Dose: 40 mg Ceftriaxone Sodium (Rocephin) 2,000 mg in 50 mls @ 100 mls/hr IV Q24H [facility] Stop: 06/30/24 14:59 Promethazine HCl (Phenergan) 6.25 mg in 50.25 mls @ 201 mls/hr IV Q6H PRN PRN Reason: Nausea And Vomiting Stop: 07/27/24 16:46 Ipratropium [place] (Ipratropium Hfa Inhaler (Combivent Respimat P&T Subs)) 1 puffs INH QIDR [facility]; Protocol Stop: 07/27/24 18:59 Last Admin: 06/28/24 07:34 Dose: 1 puffs Levothyroxine Sodium (Levothyroxine Sodium 100 Mcg Tablet) 100 mcg PO DAILYBB [facility] Stop: 07/28/24 06:29 Last Admin: 06/28/24 06:09 Dose: 100 mcg Lidocaine (Lidocaine 5% 1 Patch) 1 patch TD QAM [facility] Stop: 07/28/24 08:59 Last Admin: 06/28/24 08:43 Dose: 1 patch Miscellaneous (Remove Lidoderm Patch) 1 each N/A DAILY@2100 [facility] Stop: 07/27/24 20:59 Last Admin: 06/27/24 20:29 Dose: 1 each Miscellaneous (Remove Lidoderm Patch) 1 each N/A DAILY@2100 [facility] Stop: 07/27/24 20:59 Last Admin: 06/27/24 20:29 Dose: 1 each Montelukast Sodium (Montelukast Sodium 10 Mg Tablet) 10 mg PO QAM [facility] Stop: 07/28/24 08:59 Last Admin: 06/28/24 08:41 Dose: 10 mg Oxybutynin Chloride (Oxybutynin Chloride Xl 5 Mg Tabcr) 5 mg PO DAILY [facility] Stop: 07/28/24 08:59 Last Admin: 06/28/24 08:41 Dose: 5 mg Pantoprazole Sodium (Pantoprazole 40 Mg Tab) 20 mg PO QAM [facility] Stop: 07/28/24 08:59 Last Admin: 06/28/24 08:41 Dose: 20 mg Polyethylene Glycol (Polyethylene (Miralax) 17 Gm Pack) 17 gm PO DAILY PRN PRN Reason: Constipation Stop: 07/27/24 16:46 Potassium Chloride (Potassium Chloride Crtab 20 Meq Tabcr) [facility] Stop: 07/28/24 08:59 Last Admin: 06/28/24 08:46 Dose: 20 meq Propranolol HCl (Propranolol Hcl 20 Mg Tab) 20 mg PO TID [facility] Stop: 07/27/24 20:59 Last Admin: 06/28/24 08:42 Dose: 20 mg Rosuvastatin Calcium (Rosuvastatin Calcium 5 Mg Tab) 5 mg PO QAM [facility] Stop: 07/28/24 08:59 Last Admin: 06/28/24 08:41 Dose: 5 mg Spironolactone (Spironolactone 12.5 Mg Tab) 12.5 mg PO MOWEFR [facility] Stop: 07/29/24 08:59 Tamsulosin HCl (Tamsulosin Hcl 0.4 Mg Cap) 0.4 mg PO HS [facility] Stop: 07/27/24 20:59 Last Admin: 06/27/24 20:28 Dose: 0.4 mg (4) Chronic respiratory failure Respiratory failure complication: hypoxia Qualified Code(s): J96.11 - Chronic respiratory failure with hypoxia
[2024-06-28] MEDS: ACETAMINOPHEN 325 MG TAB PO PRN (14:14)
[2024-06-28] MEDS: cefTRIAXone SODIUM 2,000 MG/50 ML BAG IV SCH (14:17)
[2024-06-28] MEDS: DICLOFENAC SOD 1% GEL 100 GM TUBE EXT SCH (20:27)
[2024-06-29] MEDS: SPIRONOLACTONE 12.5 MG TAB PO SCH (08:29)
--- NOTE | 2024-06-29 11:00 | Hospitalist Progress Note ---
Date of Service June 29, 2024 Assessment & Plan (1) Fall: (2) Ambulatory dysfunction: (3) Abnormal urinalysis: (4) Chronic respiratory failure: (5) (HFpEF) heart failure with preserved ejection fraction: (6) Hyperlipidemia: (7) BPH (benign prostatic hyperplasia): Plan: Patient is 83 year old male with PMH chronic respiratory failure with hypoxia on home oxygen, hypothyroidism, hyperlipidemia, history of hypercalcemia, granulomatous lung disease, sleep apnea, restrictive lung disease, elevated hemidiaphragm, history of cad s/p stent hypertension, chronic right-sided heart failure, Schatzki's ring of the distal esophagus, idiopathic scoliosis, osteop orosis, essential tremor, depression, abnormality of gait and others listed below presented to ER with c/o losing balance fall last night and unable to get himself up. History recurrent hospital admissions for ambulatory dysfunction. Ambulatory Dysfunction Fall- complained to have some dizziness prior to the fall Thoracic xray: No acute fracture seen at the thoracic spine. Lumbar xray: No acute fractures seen Ribs with CXR: Possible nondisplaced fracture anterior left 10th rib with no pneumothorax. Fall precautions PT/OT eval Anticipate pt will need acute rehab as lives home alone Will get orthostatic vitalsnot yet done Remains stable without any significant pain- awaiting PT and OT evaluation Possible Left 10th rib fracture Incentive spirometry Lidocaine patch Tylenol as needed Denies any significant pain and does not have any shortness of breath at rest Abnormal UA- has history of complicated UTI UA:1+leuk esterase, 11-20 WBC, negative bacteria, negative nitrite Chronic leukocytosis. WBC: 15 (was 15 on /) Reports some dysuria. chronic urgency and sensation incomplete bladder emptyin Rocephin for now pending culture White count remains elevated at 16.59 Urine culture has been negative and will continue antibiotic for 3 days in total Will check CBC tomorrow Hypokalemia K: 3.4 Replace and monitor Hypothyroidism TSH: 0.02 Will decrease home levothyroxine from 112mcg to 100mcg daily Will need follow up TSH in 6 weeks Chronic respiratory failure with hypoxia, on 3 to 4 L of oxygen Restrictive lung disease/granulomatous lung disease Oxygen requirement is at baseline 3-4 L Incentive spirometry Continue home oxygen Continue home Combivent Chronic HFpEF Appears euvolemic Continue Lasix 40 mg BID and spironolactone Monitor volume status Coronary artery disease HLD S/P stent Continue Plavix, statin, propranolol Essential tremors Continue on propranolol BPH Continue on dutasteride and tamsulosin Mood disorder Continue duloxetine, citalopram DVT Prophylaxis Lovenox SQ Admit med tele Full Code as per discussion with pt Follows with Dr Sarkar for routine care Will likely need placement Admission and Anticipated Discharge Date Admission Date: June 27, 2024 Subjective 06/28/2024 The patient was seen and examined in medical telemetry unit He was admitted with a fall and noted to have possible UTI Has been feeling better since admission Denies any significant symptoms 06/29/2024 The patient was seen and examined in medical telemetry unit He has been stable without any significant pain in the chest on the left lateral side Denies any other significant symptoms except weakness Review of Systems Review of Systems: All systems reviewed and are unremarkable except as noted below Physical Exam Physical Exam: Lying in bed without any acute distress Constitutional: well developed, well nourished, + ill appearing and average body habitus Eyes: PERRL, conjunctivae normal, anicteric sclerae ENMT: external ear and nose normal, oropharynx normal Neck: trachea midline, no thyromegaly Respiratory: no respiratory distress Auscultation: lungs clear to auscultation bilaterally Cardiovascular: Rate/Rhythm: regular rate and regular rhythm; not tachycardic Heart Sounds: normal S1 and normal S2; no murmur Extremities: no edema Gastrointestinal (Abdomen): Inspection/Auscultation: normal bowel sounds; abdomen not distended Percussion/Palpation: abdomen soft; abdomen nontender Neurologic: normal touch/pain/proprioception and moves all extremities; no focal motor deficits Lymphatic: no cervical or axillary lymphadenopathy Results & Data Results & Data Vital Signs (Past 12 Hours) Vital Signs Temp Pulse Pulse Pulse Resp BP BP 06/29/24 07:55 37.2 C 60 14 109/55 L 06/29/24 07:41 06/29/24 07:20 66 18 06/29/24 06:07 53 L 06/29/24 02:51 36.4 C L 56 L 18 116/71 Pulse Ox O2 Del Method O2 Flow Rate 06/29/24 07:55 94 Nasal Cannula 06/29/24 07:41 Nasal Cannula 4 06/29/24 07:20 99 Nasal Cannula 4 06/29/24 06:07 06/29/24 02:51 95 Nasal Cannula 4 Medications Administered Current Inpatient Medications Acetaminophen (Acetaminophen 325 Mg Tab) 650 mg PO Q4H PRN PRN Reason: Pain or Fever Stop: 07/27/24 16:46 Last Admin: 06/29/24 05:27 Dose: 650 mg Albuterol (Albuterol Hfa 8 Gm Inhaler (Combivent Respimat P&T Subs)) 1 puffs INH QIDR [facility]; Protocol Stop: 07/27/24 18:59 Last Admin: 06/29/24 07:19 Dose: 1 puffs Allopurinol (Allopurinol 100 Mg Tab) 200 mg PO DAILY [facility] Stop: 07/28/24 08:59 Last Admin: 06/29/24 08:29 Dose: 200 mg Citalopram Hydrobromide (Citalopram 20 Mg Tab) 20 mg PO DAILY [facility] Stop: 07/28/24 08:59 Last Admin: 06/29/24 08:32 Dose: 20 mg Clopidogrel Bisulfate (Clopidogrel Bisulfate 75 Mg Tab) 75 mg PO DAILY [facility] Stop: 07/28/24 08:59 Last Admin: 06/29/24 08:31 Dose: 75 mg Diclofenac Sodium (Diclofenac Sod 1% Gel 100 Gm Tube) 2 gm EXT BID [facility]; Protocol Stop: 07/28/24 20:59 Last Admin: 06/29/24 08:36 Dose: Not Given Docusate Sodium (Docusate Sodium 100 Mg Cap) 100 mg PO DAILY [facility] Stop: 07/28/24 08:59 Last Admin: 06/29/24 08:29 Dose: 100 mg Duloxetine HCl (Duloxetine Hcl 60 Mg Cap) 60 mg PO DAILY [facility] Stop: 07/28/24 08:59 Last Admin: 06/29/24 08:29 Dose: 60 mg Enoxaparin Sodium (Enoxaparin Inj 40 Mg/0.4 Ml Syr) 30 mg SQ Q24H [facility] Stop: 07/27/24 16:46 Last Admin: 06/28/24 16:03 Dose: Not Given Finasteride (Finasteride 5 Mg Tab) 5 mg PO DAILY [facility] Stop: 07/28/24 08:59 Last Admin: 06/29/24 08:29 Dose: 5 mg Furosemide (Furosemide 40 Mg Tab) 40 mg PO BID17 [facility] Stop: 07/27/24 16:59 Last Admin: 06/29/24 08:29 Dose: 40 mg Ceftriaxone Sodium (Rocephin) 2,000 mg in 50 mls @ 100 mls/hr IV Q24H [facility] Stop: 06/30/24 14:59 Last Infusion: 06/28/24 14:47 Dose: Infused Promethazine HCl (Phenergan) 6.25 mg in 50.25 mls @ 201 mls/hr IV Q6H PRN PRN Reason: Nausea And Vomiting Stop: 07/27/24 16:46 Ipratropium [place] (Ipratropium Hfa Inhaler (Combivent Respimat P&T Subs)) 1 puffs INH QIDR [facility]; Protocol Stop: 07/27/24 18:59 Last Admin: 06/29/24 07:19 Dose: 1 puffs Levothyroxine Sodium (Levothyroxine Sodium 100 Mcg Tablet) [facility] Stop: 07/28/24 06:29 Last Admin: 06/29/24 05:00 Dose: 100 mcg Lidocaine (Lidocaine 5% 1 Patch) 1 patch TD [facility] Stop: 07/28/24 08:59 Last Admin: 06/29/24 08:36 Dose: 1 patch Miscellaneous (Remove Lidoderm Patch) 1 each N/A DAILY@2100 [facility] Stop: 07/27/24 20:59 Last Admin: 06/28/24 20:29 Dose: 1 each Miscellaneous (Remove Lidoderm Patch) 1 each N/A DAILY@2100 [facility] Stop: 07/27/24 20:59 Last Admin: 06/28/24 20:29 Dose: 1 each Montelukast Sodium (Montelukast Sodium 10 Mg Tablet) 10 mg PO [facility] Stop: 07/28/24 08:59 Last Admin: 06/29/24 08:31 Dose: 10 mg Oxybutynin Chloride (Oxybutynin Chloride Xl 5 Mg Tabcr) 5 mg PO DAILY [facility] Stop: 07/28/24 08:59 Last Admin: 06/29/24 08:32 Dose: 5 mg Pantoprazole Sodium (Pantoprazole 40 Mg Tab) 20 mg PO [facility] Stop: 07/28/24 08:59 Last Admin: 06/29/24 08:30 Dose: 20 mg Polyethylene Glycol (Polyethylene (Miralax) 17 Gm Pack) 17 gm PO DAILY PRN PRN Reason: Constipation Stop: 07/27/24 16:46 Potassium Chloride (Potassium Chloride Crtab 20 Meq Tabcr) 20 meq PO QAM [facility] Stop: 07/28/24 08:59 Last Admin: 06/29/24 08:28 Dose: 20 meq Propranolol HCl (Propranolol Hcl 20 Mg Tab) 20 mg PO TID [facility] Stop: 07/27/24 20:59 Last Admin: 06/29/24 08:30 Dose: 20 mg Rosuvastatin Calcium (Rosuvastatin Calcium 5 Mg Tab) 5 mg PO QAM [facility] Stop: 07/28/24 08:59 Last Admin: 06/29/24 08:29 Dose: 5 mg Spironolactone (Spironolactone 12.5 Mg Tab) 12.5 mg PO MOWEFR [facility] Stop: 07/29/24 08:59 Last Admin: 06/29/24 08:29 Dose: 12.5 mg Tamsulosin HCl (Tamsulosin Hcl 0.4 Mg Cap) 0.4 mg PO HS [facility] Stop: 07/27/24 20:59 Last Admin: 06/28/24 20:29 Dose: 0.4 mg (1) Fall Encounter type: initial encounter Qualified Code(s): W19.XXXA - Unspecified fall, initial encounter (4) Chronic respiratory failure Respiratory failure complication: hypoxia Qualified Code(s): J96.11 - Chronic respiratory failure with hypoxia
--- NOTE | 2024-06-30 04:46 | Electrocardiogram Report ---
Test Reason : Blood Pressure : */* mmHG Vent. Rate : 69 BPM Atrial Rate : 69 BPM P-R Int : 160 ms QRS Dur : 90 ms QT Int : 438 ms P-R-T Axes : 47 46 57 degrees QTcB Int : 469 ms Sinus rhythm with occasional Premature ventricular complexes Possible Left atrial enlargement Septal infarct (cited on or before 08-Dec-2022) Abnormal ECG When compared with ECG of 17-Jun-2024 22:09, Premature ventricular complexes are now Present Confirmed by Gaston Cannon [id number]) on 06/30/2024 4:46:08 AM Referred By: REFERRED SELF Confirmed By: Gaston Cannon
[2024-06-30 07:43] LABS: Basophils # (auto) 0.02 K/uL (0.00-0.20); Basophils % (auto) 0.2 %; Eosinophils # (auto) 0.05 K/uL (0.00-0.50); Eosinophils % (auto) 0.5 %; Hematocrit (blood only) 41.1 % (42.0-52.0); Hemoglobin 13.9 g/dl (14.0-18.0); Immature Granulocytes # (auto) 0.17 K/uL (0.01-0.20); Immature Granulocytes % (auto) 1.6 %; Lymphocytes # (auto) 1.32 K/uL (1.20-3.40); Lymphocytes % (auto) 12.5 %; Mean Corpuscular Hemoglobin 31.5 pg (25.0-34.0); Mean Corpuscular Hgb Conc 33.8 g/dL (32.0-36.0); Mean Corpuscular Volume 93.2 fL (80.0-100.0); Mean Platelet Volume 10.1 fL (9.4-12.4); Monocytes # (auto) 1.08 K/uL (0.11-0.59); Monocytes % (auto) 10.3 %; Neutrophils # (auto) 7.88 K/uL (1.40-6.50); Neutrophils % (auto) 74.9 %; Platelet Count 162 K/uL (130-400); RDW Standard Deviation 47.4 fL (36.4-46.3); Red Blood Count 4.41 M/uL (4.70-6.10); White Blood Count 10.52 K/ul (4.8-10.8)
[2024-06-30 07:58] LABS: BUN Creatinine Ratio 19.2 (10-20); Calcium 9.7 mg/dl (8.6-10.3); Creatinine Clr Calc Pharmacy 63.5 ml/min; Potassium 4.5 mmol/L (3.5-5.1)
--- NOTE | 2024-06-30 11:18 | Hospitalist Progress Note ---
Date of Service June 30, 2024 Assessment & Plan (1) Fall: (2) Ambulatory dysfunction: (3) Abnormal urinalysis: (4) Chronic respiratory failure: (5) (HFpEF) heart failure with preserved ejection fraction: (6) Hyperlipidemia: (7) BPH (benign prostatic hyperplasia): Plan: Patient is 83 year old male with PMH chronic respiratory failure with hypoxia on home oxygen, hypothyroidism, hyperlipidemia, history of hypercalcemia, granulomatous lung disease, sleep apnea, restrictive lung disease, elevated hemidiaphragm, history of cad s/p stent hypertension, chronic right-sided heart failure, Schatzki's ring of the distal esophagus, idiopathic scoliosis, osteo porosis, essential tremor, depression, abnormality of gait and others listed below presented to ER with c/o losing balance fall last night and unable to get himself up. History recurrent hospital admissions for ambulatory dysfunction. Ambulatory Dysfunction Fall- complained to have some dizziness prior to the fall Thoracic xray: No acute fracture seen at the thoracic spine. Lumbar xray: No acute fractures seen Ribs with CXR: Possible nondisplaced fracture anterior left 10th rib with no pneumothorax. Fall precautions PT/OT eval Anticipate pt will need acute rehab as lives home alone Will get orthostatic vitalsnot yet done Remains stable without any significant pain- awaiting PT and OT evaluation Clinically much better without any significant symptoms Has had PT evaluation and recommended rehab Possible Left 10th rib fracture Incentive spirometry Lidocaine patch Tylenol as needed Denies any significant pain and does not have any shortness of breath at rest Pain is much better with current medications Abnormal UA- has history of complicated UTI UA:1+leuk esterase, 11-20 WBC, negative bacteria, negative nitrite Chronic leukocytosis. WBC: 15 (was 15 on ) Reports some dysuria. chronic urgency and sensation incomplete bladder emptyin Rocephin for now pending culture White count remains elevated at 16.59 Urine culture has been negative and will continue antibiotic for 3 days in total Will check CBC tomorrow- white count has been normalized Will discontinue antibiotic from tomorrow Hypokalemia K: 3.4 Replace and monitor Hypothyroidism TSH: 0.02 Will decrease home levothyroxine from 112mcg to 100mcg daily Will need follow up TSH in 6 weeks Chronic respiratory failure with hypoxia, on 3 to 4 L of oxygen Restrictive lung disease/granulomatous lung disease Oxygen requirement is at baseline 3-4 L Incentive spirometry Continue home oxygen Continue home Combivent Chronic HFpEF Appears euvolemic Continue Lasix 40 mg BID and spironolactone Monitor volume status Coronary artery disease HLD S/P stent Continue Plavix, statin, propranolol Essential tremors Continue on propranolol BPH Continue on dutasteride and tamsulosin Mood disorder Continue duloxetine, citalopram DVT Prophylaxis Lovenox SQ Admit med tele Full Code as per discussion with pt Follows with Dr Sarkar for routine care Awaiting placement for rehab Admission and Anticipated Discharge Date Admission Date: June 27, 2024 Subjective 06/28/2024 The patient was seen and examined in medical telemetry unit He was admitted with a fall and noted to have possible UTI Has been feeling better since admission Denies any significant symptoms 06/29/2024 The patient was seen and examined in medical telemetry unit He has been stable without any significant pain in the chest on the left lateral side Denies any other significant symptoms except weakness 06/30/2024 The patient was seen and examined in medical telemetry unit He has been feeling much better and denies any pain at rest Denies any other significant symptoms Review of Systems Review of Systems: All systems reviewed and are unremarkable except as noted below Physical Exam Physical Exam: Lying in bed without any acute distress Constitutional: well developed, well nourished, + ill appearing and average body habitus Eyes: PERRL, conjunctivae normal, anicteric sclerae ENMT: external ear and nose normal, oropharynx normal Neck: trachea midline, no thyromegaly Respiratory: no respiratory distress Auscultation: lungs clear to auscultation bilaterally Cardiovascular: Rate/Rhythm: regular rate and regular rhythm; not tachycardic Heart Sounds: normal S1 and normal S2; no murmur Extremities: no edema Gastrointestinal (Abdomen): Inspection/Auscultation: normal bowel sounds; abdomen not distended Percussion/Palpation: abdomen soft; abdomen nontender Neurologic: normal touch/pain/proprioception and moves all extremities; no focal motor deficits Lymphatic: no cervical or axillary lymphadenopathy Results & Data Results & Data Vital Signs (Past 12 Hours) Vital Signs Temp Pulse Pulse Resp BP Pulse Ox O2 Del Method 06/30/24 09:02 54 L 06/30/24 07:40 36.6 C 55 L 16 120/76 94 Nasal Cannula 06/30/24 07:34 64 16 94 Nasal Cannula 06/30/24 07:24 Nasal Cannula 06/30/24 03:43 36.4 C L 56 L 18 115/73 94 Nasal Cannula 06/29/24 23:44 36.5 C 55 L 20 129/77 100 Nasal Cannula O2 Flow Rate 06/30/24 09:02 06/30/24 07:40 4 06/30/24 07:34 4 06/30/24 07:24 4 06/30/24 03:43 2 06/29/24 23:44 2 Laboratory Results Short CBC 06/30/24 Range/Units 06:39 WBC 10.52 (4.8-10.8) K/ul Hgb 13.9 L (14.0-18.0) g/dl Hct 41.1 L (42.0-52.0) % Plt Count 162 (130-400) K/uL BMP 06/30/24 06:39 Sodium 139 Potassium 4.5 Chloride 96 L Carbon Dioxide 39 H BUN 15 Creatinine 0.78 Glucose 120 H Calcium 9.7 Medications Administered Current Inpatient Medications Acetaminophen (Acetaminophen 325 Mg Tab) 650 mg PO Q4H PRN PRN Reason: Pain or Fever Stop: 07/27/24 16:46 Last Admin: 06/29/24 23:16 Dose: 650 mg Albuterol (Albuterol Hfa 8 Gm Inhaler (Combivent Respimat P&T Subs)) 1 puffs INH QIDR [facility]; Protocol Stop: 07/27/24 18:59 Last Admin: 06/30/24 07:33 Dose: 1 puffs Allopurinol (Allopurinol 100 Mg Tab) 200 mg PO DAILY [facility] Stop: 07/28/24 08:59 Last Admin: 06/30/24 08:28 Dose: 200 mg Citalopram Hydrobromide (Citalopram 20 Mg Tab) 20 mg PO DAILY [facility] Stop: 07/28/24 08:59 Last Admin: 06/30/24 08:28 Dose: 20 mg Clopidogrel Bisulfate (Clopidogrel Bisulfate 75 Mg Tab) 75 mg PO DAILY [facility] Stop: 07/28/24 08:59 Last Admin: 06/30/24 08:28 Dose: 75 mg Diclofenac Sodium (Diclofenac Sod 1% Gel 100 Gm Tube) 2 gm EXT BID [facility]; [facility] col Stop: 07/28/24 20:59 Last Admin: 06/30/24 08:29 Dose: 2 gm Docusate Sodium (Docusate Sodium 100 Mg Cap) 100 mg PO DAILY [facility] Stop: 07/28/24 08:59 Last Admin: 06/30/24 08:31 Dose: Not Given Duloxetine HCl (Duloxetine Hcl 60 Mg Cap) 60 mg PO DAILY [facility] Stop: 07/28/24 08:59 Last Admin: 06/30/24 08:28 Dose: 60 mg Enoxaparin Sodium (Enoxaparin Inj 40 Mg/0.4 Ml Syr) 30 mg SQ Q24H [facility] Stop: 07/27/24 16:46 Last Admin: 06/29/24 15:47 Dose: 30 mg Finasteride (Finasteride 5 Mg Tab) 5 mg PO DAILY [facility] Stop: 07/28/24 08:59 Last Admin: 06/30/24 08:34 Dose: 5 mg Furosemide (Furosemide 40 Mg Tab) 40 mg PO BID17 [facility] Stop: 07/27/24 16:59 Last Admin: 06/30/24 08:28 Dose: 40 mg Ceftriaxone Sodium (Rocephin) 2,000 mg in 50 mls @ 100 mls/hr IV Q24H [facility] Stop: 06/30/24 14:59 Last Infusion: 06/29/24 16:30 Dose: Infused Promethazine HCl (Phenergan) 6.25 mg in 50.25 mls @ 201 mls/hr IV Q6H PRN PRN Reason: Nausea And Vomiting Stop: 07/27/24 16:46 Ipratropium [place] (Ipratropium Hfa Inhaler (Combivent Respimat P&T Subs)) 1 puffs INH QIDR [facility]; Protocol Stop: 07/27/24 18:59 Last Admin: 06/30/24 07:33 Dose: 1 puffs Levothyroxine Sodium (Levothyroxine Sodium 100 Mcg Tablet) 100 mcg PO DAILYBB [facility] Stop: 07/28/24 06:29 Last Admin: 06/30/24 05:51 Dose: 100 mcg Lidocaine (Lidocaine 5% 1 Patch) 1 patch TD QAM [facility] Stop: 07/28/24 08:59 Last Admin: 06/30/24 08:33 Dose: 1 patch Miscellaneous (Remove Lidoderm Patch) 1 each N/A DAILY@2100 [facility] Stop: 07/27/24 20:59 Last Admin: 06/29/24 21:39 Dose: 1 each Miscellaneous (Remove Lidoderm Patch) 1 each N/A DAILY@2100 [facility] Stop: 07/27/24 20:59 Last Admin: 06/29/24 21:38 Dose: Not Given Montelukast Sodium (Montelukast Sodium 10 Mg Tablet) [facility] Stop: 07/28/24 08:59 Last Admin: 06/30/24 08:28 Dose: 10 mg Oxybutynin Chloride (Oxybutynin Chloride Xl 5 Mg Tabcr) 5 mg PO DAILY [facility] Stop: 07/28/24 08:59 Last Admin: 06/30/24 08:28 Dose: 5 mg Pantoprazole Sodium (Pantoprazole 40 Mg Tab) [facility] Stop: 07/28/24 08:59 Last Admin: 06/30/24 08:32 Dose: 20 mg Polyethylene Glycol (Polyethylene (Miralax) 17 Gm Pack) 17 gm PO DAILY PRN PRN Reason: Constipation Stop: 07/27/24 16:46 Potassium Chloride (Potassium Chloride Crtab 20 Meq Tabcr) 20 meq [facility] [place] Stop: 07/28/24 08:59 Last Admin: 06/30/24 08:39 Dose: 20 meq Propranolol HCl (Propranolol Hcl 20 Mg Tab) 20 mg PO TID [facility] Stop: 07/27/24 20:59 Last Admin: 06/30/24 08:28 Dose: Not Given Rosuvastatin Calcium (Rosuvastatin Calcium 5 Mg Tab) [facility] [place] Stop: 07/28/24 08:59 Last Admin: 06/30/24 08:28 Dose: 5 mg Spironolactone (Spironolactone 12.5 Mg Tab) 12.5 mg PO MOWEFR [facility] Stop: 07/29/24 08:59 Last Admin: 06/29/24 08:29 Dose: 12.5 mg Tamsulosin HCl (Tamsulosin Hcl 0.4 Mg Cap) 0.4 mg PO HS [facility] Stop: 07/27/24 20:59 Last Admin: 06/29/24 21:39 Dose: 0.4 mg (1) Fall Encounter type: initial encounter Qualified Code(s): W19.XXXA - Unspecified fall, initial encounter (4) Chronic respiratory failure Respiratory failure complication: hypoxia Qualified Code(s): J96.11 - Chronic respiratory failure with hypoxia
--- NOTE | 2024-07-01 13:59 | Hospitalist Progress Note ---
Date of Service July 01, 2024 Assessment & Plan (1) Fall: (2) Ambulatory dysfunction: (3) Abnormal urinalysis: (4) Chronic respiratory failure: (5) (HFpEF) heart failure with preserved ejection fraction: (6) Hyperlipidemia: (7) BPH (benign prostatic hyperplasia): Plan: Patient is 83 year old male with PMH chronic respiratory failure with hypoxia on home oxygen, hypothyroidism, hyperlipidemia, history of hypercalcemia, granulomatous lung disease, sleep apnea, restrictive lung disease, elevated hemidiaphragm, history of cad s/p stent hypertension, chronic right-sided heart failure, Schatzki's ring of the distal esophagus, idiopathic scoliosis, osteo porosis, essential tremor, depression, abnormality of gait and others listed below presented to ER with c/o losing balance fall last night and unable to get himself up. History recurrent hospital admissions for ambulatory dysfunction. Ambulatory Dysfunction Fall- complained to have some dizziness prior to the fall Thoracic xray: No acute fracture seen at the thoracic spine. Lumbar xray: No acute fractures seen Ribs with CXR: Possible nondisplaced fracture anterior left 10th rib with no pneumothorax. Fall precautions PT/OT eval Anticipate pt will need acute rehab as lives home alone Will get orthostatic vitalsnot yet done Remains stable without any significant pain- awaiting PT and OT evaluation Clinically much better without any significant symptoms Has had PT evaluation and recommended rehab He is a little upset today as he is not getting any physical therapy since yesterdayexplained about physical therapy during the week and Awaiting for placement and remains medically stable Possible Left 10th rib fracture Incentive spirometry Lidocaine patch Tylenol as needed Denies any significant pain and does not have any shortness of breath at rest Pain is much better with current medications Abnormal UA- has history of complicated UTI UA:1+leuk esterase, 11-20 WBC, negative bacteria, negative nitrite Chronic leukocytosis. WBC: 15 (was 15 on ) Reports some dysuria. chronic urgency and sensation incomplete bladder emptyin Rocephin for now pending culture White count remains elevated at 16.59 Urine culture has been negative and will continue antibiotic for 3 days in total Will check CBC tomorrow- white count has been normalized Antibiotic will be discontinued today Hypokalemia K: 3.4 Replace and monitor Hypothyroidism TSH: 0.02 Will decrease home levothyroxine from 112mcg to 100mcg daily Will need follow up TSH in 6 weeks Chronic respiratory failure with hypoxia, on 3 to 4 L of oxygen Restrictive lung disease/granulomatous lung disease Oxygen requirement is at baseline 3-4 L Incentive spirometry Continue home oxygen Continue home Combivent Chronic HFpEF Appears euvolemic Continue Lasix 40 mg BID and spironolactone Monitor volume status Coronary artery disease HLD S/P stent Continue Plavix, statin, propranolol Essential tremors Continue on propranolol BPH Continue on dutasteride and tamsulosin Mood disorder Continue duloxetine, citalopram DVT Prophylaxis Lovenox SQ Admit med tele Full Code as per discussion with pt Follows with Dr Sarkar for routine care Awaiting placement for rehab Admission and Anticipated Discharge Date Admission Date: June 27, 2024 Subjective 06/28/2024 The patient was seen and examined in medical telemetry unit He was admitted with a fall and noted to have possible UTI Has been feeling better since admission Denies any significant symptoms 06/29/2024 The patient was seen and examined in medical telemetry unit He has been stable without any significant pain in the chest on the left lateral side Denies any other significant symptoms except weakness 06/30/2024 The patient was seen and examined in medical telemetry unit He has been feeling much better and denies any pain at rest Denies any other significant symptoms 07/01/2024 The patient was seen and examined in medical telemetry unit He has been feeling much better and waiting for more physical therapy Denies any pain and or any other significant symptoms Review of Systems Review of Systems: All systems reviewed and are unremarkable except as noted below Physical Exam Physical Exam: Lying in bed without any acute distress Constitutional: well developed, well nourished, + ill appearing and average body habitus Eyes: PERRL, conjunctivae normal, anicteric sclerae ENMT: external ear and nose normal, oropharynx normal Neck: trachea midline, no thyromegaly Respiratory: no respiratory distress Auscultation: lungs clear to auscultation bilaterally Cardiovascular: Rate/Rhythm: regular rate and regular rhythm; not tachycardic Heart Sounds: normal S1 and normal S2; no murmur Extremities: no edema Gastrointestinal (Abdomen): Inspection/Auscultation: normal bowel sounds; abdomen not distended Percussion/Palpation: abdomen soft; abdomen nontender Neurologic: normal touch/pain/proprioception and moves all extremities; no f ocal motor deficits Lymphatic: no cervical or axillary lymphadenopathy Results & Data Results & Data Vital Signs (Past 12 Hours) Vital Signs Temp Pulse Pulse Resp BP Pulse Ox O2 Del Method 07/01/24 11:46 36.6 C 63 18 138/88 97 Nasal Cannula 07/01/24 11:26 64 16 97 Nasal Cannula 07/01/24 08:22 Nasal Cannula 07/01/24 07:42 69 20 97 Nasal Cannula 07/01/24 07:35 36.4 C L 61 18 128/65 96 Nasal Cannula 07/01/24 05:52 58 L 07/01/24 03:46 36.6 C 108 H 20 110/69 97 Nasal Cannula O2 Flow Rate 07/01/24 11:46 2 07/01/24 11:26 3 07/01/24 08:22 3 07/01/24 07:42 3 07/01/24 07:35 2 07/01/24 05:52 07/01/24 03:46 2 Medications Administered Current Inpatient Medications Acetaminophen (Acetaminophen 325 Mg Tab) 650 mg PO Q4H PRN PRN Reason: Pain or Fever Stop: 07/27/24 16:46 Last Admin: 06/30/24 20:48 Dose: 650 mg Albuterol (Albuterol Hfa 8 Gm Inhaler (Combivent Respimat P&T Subs)) 1 puffs INH QIDR [facility]; Protocol Stop: 07/27/24 18:59 Last Admin: 07/01/24 11:26 Dose: 1 puffs Allopurinol (Allopurinol 100 Mg Tab) 200 mg PO DAILY [facility] Stop: 07/28/24 08:59 Last Admin: 07/01/24 07:30 Dose: 200 mg Citalopram Hydrobromide (Citalopram 20 Mg Tab) 20 mg PO DAILY [facility] Stop: 07/28/24 08:59 Last Admin: 07/01/24 07:33 Dose: 20 mg Clopidogrel Bisulfate (Clopidogrel Bisulfate 75 Mg Tab) 75 mg PO DAILY [facility] Stop: 07/28/24 08:59 Last Admin: 07/01/24 07:34 Dose: 75 mg Diclofenac Sodium (Diclofenac Sod 1% Gel 100 Gm Tube) 2 gm EXT BID [facility]; Protocol Stop: 07/28/24 20:59 Last Admin: 07/01/24 07:34 Dose: 2 gm Docusate Sodium (Docusate Sodium 100 Mg Cap) 100 mg PO DAILY [facility] Stop: 07/28/24 08:59 Last Admin: 07/01/24 07:34 Dose: Not Given Duloxetine HCl (Duloxetine Hcl 60 Mg Cap) 60 mg PO DAILY [facility] Stop: 07/28/24 08:59 Last Admin: 07/01/24 07:33 Dose: 60 mg Enoxaparin Sodium (Enoxaparin Inj 40 Mg/0.4 Ml Syr) 30 mg SQ Q24H [facility] Stop: 07/27/24 16:46 Last Admin: 06/30/24 17:37 Dose: 30 mg Finasteride (Finasteride 5 Mg Tab) 5 mg PO DAILY [facility] Stop: 07/28/24 08:59 Last Admin: 07/01/24 07:34 Dose: 5 mg Furosemide (Furosemide 40 Mg Tab) 40 mg PO BID17 [facility] Stop: 07/27/24 16:59 Last Admin: 07/01/24 07:30 Dose: 40 mg Promethazine HCl (Phenergan) 6.25 mg in 50.25 mls @ 201 mls/hr IV Q6H PRN PRN Reason: Nausea And Vomiting Stop: 07/27/24 16:46 Ipratropium [place] (Ipratropium Hfa Inhaler (Combivent Respimat P&T Subs)) 1 puffs INH QIDR [facility]; Protocol Stop: 07/27/24 18:59 Last Admin: 07/01/24 11:26 Dose: 1 puffs Levothyroxine Sodium (Levothyroxine Sodium 100 Mcg Tablet) 100 mcg PO DAILYBB [facility] Stop: 07/28/24 06:29 Last Admin: 07/01/24 06:15 Dose: 100 mcg Lidocaine (Lidocaine 5% 1 Patch) 1 patch TD QAM [facility] Stop: 07/28/24 08:59 Last Admin: 07/01/24 07:38 Dose: 1 patch Miscellaneous (Remove Lidoderm Patch) 1 each N/A DAILY@2100 [facility] Stop: 07/27/24 20:59 Last Admin: 06/30/24 20:47 Dose: 1 each Miscellaneous (Remove Lidoderm Patch) 1 each N/A DAILY@2100 [facility] Stop: 07/27/24 20:59 Last Admin: 06/30/24 20:47 Dose: Not Given Montelukast Sodium (Montelukast Sodium 10 Mg Tablet) 10 mg PO QAM [facility] Stop: 07/28/24 08:59 Last Admin: 07/01/24 07:30 Dose: 10 mg Oxybutynin Chloride (Oxybutynin Chloride Xl 5 Mg Tabcr) 5 mg PO DAILY [facility] Stop: 07/28/24 08:59 Last Admin: 07/01/24 07:31 Dose: 5 mg Pantoprazole Sodium (Pantoprazole 40 Mg Tab) 20 mg PO QAM [facility] Stop: 07/28/24 08:59 Last Admin: 07/01/24 07:31 Dose: 20 mg Polyethylene Glycol (Polyethylene (Miralax) 17 Gm Pack) 17 gm PO DAILY PRN PRN Reason: Constipation Stop: 07/27/24 16:46 Potassium Chloride (Potassium Chloride Crtab 20 Meq Tabcr) [facility] [place]: 07/28/24 08:59 Last Admin: 07/01/24 07:39 Dose: 20 meq Propranolol HCl (Propranolol Hcl 20 Mg Tab) 20 mg PO TID [facility] Stop: 07/27/24 20:59 Last Admin: 07/01/24 13:35 Dose: 20 mg Rosuvastatin Calcium (Rosuvastatin Calcium 5 Mg Tab) 5 mg PO QAM [facility] Stop: 07/28/24 08:59 Last Admin: 07/01/24 07:30 Dose: 5 mg Spironolactone (Spironolactone 12.5 Mg Tab) 12.5 mg PO MOWEFR [facility] Stop: 07/29/24 08:59 Last Admin: 06/29/24 08:29 Dose: 12.5 mg Tamsulosin HCl (Tamsulosin Hcl 0.4 Mg Cap) 0.4 mg PO HS [facility] Stop: 07/27/24 20:59 Last Admin: 06/30/24 20:47 Dose: 0.4 mg (1) Fall Encounter type: initial encounter Qualified Code(s): W19.XXXA - Unspecified fall, initial encounter (4) Chronic respiratory failure Respiratory failure complication: hypoxia Qualified Code(s): J96.11 - Chronic respiratory failure with hypoxia
--- NOTE | 2024-07-02 10:50 | Hospitalist Progress Note ---
Date of Service July 02, 2024 Assessment & Plan (1) Fall: (2) Ambulatory dysfunction: (3) Abnormal urinalysis: (4) Chronic respiratory failure: (5) (HFpEF) heart failure with preserved ejection fraction: (6) Hyperlipidemia: (7) BPH (benign prostatic hyperplasia): Plan: Patient is 83 year old male with PMH chronic respiratory failure with hypoxia on home oxygen, hypothyroidism, hyperlipidemia, history of hypercalcemia, granulomatous lung disease, sleep apnea, restrictive lung disease, elevated hemidiaphragm, history of cad s/p stent hypertension, chronic right-sided heart failure, Schatzki's ring of the distal esophagus, idiopathic scoliosis, osteo porosis, essential tremor, depression, abnormality of gait and others listed below presented to ER with c/o losing balance fall last night and unable to get himself up. History recurrent hospital admissions for ambulatory dysfunction. Ambulatory Dysfunction Fall- complained to have some dizziness prior to the fall Thoracic xray: No acute fracture seen at the thoracic spine. Lumbar xray: No acute fractures seen Ribs with CXR: Possible nondisplaced fracture anterior left 10th rib with no pneumothorax. Fall precautions PT/OT eval Anticipate pt will need acute rehab as lives home alone Will get orthostatic vitalsnot yet done Remains stable without any significant pain- awaiting PT and OT evaluation Clinically much better without any significant symptoms Has had PT evaluation and recommended rehab He is a little upset today as he is not getting any physical therapy since yesterday,explained about physical therapy during the week and Awaiting for placement and remains medically stable Remains medically stable and pain is reasonably controlled with current medications and the patch Awaiting placement Possible Left 10th rib fracture Incentive spirometry Lidocaine patch Tylenol as needed Denies any significant pain and does not have any shortness of breath at rest Pain is much better with current medications Denies any significant pain at rest Abnormal UA- has history of complicated UTI UA:1+leuk esterase, 11-20 WBC, negative bacteria, negative nitrite Chronic leukocytosis. WBC: 15 (was 15 on ) Reports some dysuria. chronic urgency and sensation incomplete bladder emptyin Rocephin for now pending culture White count remains elevated at 16.59 Urine culture has been negative and will continue antibiotic for 3 days in total Will check CBC tomorrow- white count has been normalized Antibiotic will be discontinued today No urinary symptoms Hypokalemia K: 3.4 Replace and monitor Hypothyroidism TSH: 0.02 Will decrease home levothyroxine from 112mcg to 100mcg daily Will need follow up TSH in 6 weeks Chronic respiratory failure with hypoxia, on 3 to 4 L of oxygen Restrictive lung disease/granulomatous lung disease Oxygen requirement is at baseline 3-4 L Incentive spirometry Continue home oxygen Continue home Combivent Denies any respiratory symptoms Chronic HFpEF Appears euvolemic Continue Lasix 40 mg BID and spironolactone Monitor volume status Coronary artery disease HLD S/P stent Continue Plavix, statin, propranolol Essential tremors Continue on propranolol Continues to have essential tremors and seems to be not worse BPH Continue on dutasteride and tamsulosin Mood disorder Continue duloxetine, citalopram DVT Prophylaxis Lovenox SQ Admit med tele Full Code as per discussion with pt Follows with Dr Sarkar for routine care Awaiting placement for rehab- referral has been met to [facility] Admission and Anticipated Discharge Date Admission Date: June 27, 2024 Subjective 06/28/2024 The patient was seen and examined in medical telemetry unit He was admitted with a fall and noted to have possible UTI Has been feeling better since admission Denies any significant symptoms 06/29/2024 The patient was seen and examined in medical telemetry unit He has been stable without any significant pain in the chest on the left lateral side Denies any other significant symptoms except weakness 06/30/2024 The patient was seen and examined in medical telemetry unit He has been feeling much better and denies any pain at rest Denies any other significant symptoms 07/01/2024 The patient was seen and examined in medical telemetry unit He has been feeling much better and waiting for more physical therapy Denies any pain and or any other significant symptoms 07/02/2024 The patient was seen and examined in medical telemetry unit He has been stable and feeling a lot better Chest pain is controlled Still has significant tremors involving the extremities Review of Systems Review of Systems: All systems reviewed and are unremarkable except as noted below Physical Exam Physical Exam: Lying in bed without any acute distress Constitutional: well developed, well nourished, + ill appearing and average body habitus Eyes: PERRL, conjunctivae normal, anicteric sclerae ENMT: external ear and nose normal, oropharynx normal Neck: trachea midline, no thyromegaly Respiratory: no respiratory distress Auscultation: lungs clear to auscultation bilaterally Cardiovascular: Rate/Rhythm: regular rate and regular rhythm; not tachycardic Heart Sounds: normal S1 and normal S2; no murmur Extremities: no edema Gastrointestinal (Abdomen): Inspection/Auscultation: normal bowel sounds; abdomen not distended Percussion/Palpation: abdomen soft; abdomen nontender Musculoskeletal: No acute arthritis involving any of the joint Neurologic: normal touch/pain/proprioception and moves all extremities; no focal motor deficits Lymphatic: no cervical or axillary lymphadenopathy Results & Data Results & Data Vital Signs (Past 12 Hours) Vital Signs Temp Pulse Pulse Pulse Resp BP BP 07/02/24 08:08 78 106/80 07/02/24 08:04 72 92/61 L 07/02/24 08:03 71 112/71 07/02/24 07:47 36.9 C 62 18 112/65 07/02/24 07:17 62 20 07/02/24 05:31 60 07/02/24 03:46 36.6 C 78 20 107/70 07/02/24 00:21 36.4 C L 57 L 18 119/72 Pulse Ox O2 Del Method O2 Flow Rate 07/02/24 08:08 07/02/24 08:04 07/02/24 08:03 07/02/24 07:47 94 Nasal Cannula 3 07/02/24 07:17 95 Nasal Cannula 3 07/02/24 05:31 07/02/24 03:46 98 Nasal Cannula 3 07/02/24 00:21 96 Nasal Cannula 2 Medications Administered Current Inpatient Medications Acetaminophen (Acetaminophen 325 Mg Tab) 650 mg PO Q4H PRN PRN Reason: Pain or Fever Stop: 07/27/24 16:46 Last Admin: 06/30/24 20:48 Dose: 650 mg Albuterol (Albuterol Hfa 8 Gm Inhaler (Combivent Respimat P&T Subs)) 1 puffs INH QIDR [facility]; Protocol Stop: 07/27/24 18:59 Last Admin: 07/02/24 07:16 Dose: 1 puffs Allopurinol (Allopurinol 100 Mg Tab) 200 mg PO DAILY [facility] Stop: 07/28/24 08:59 Last Admin: 07/02/24 08:15 Dose: 200 mg Citalopram Hydrobromide (Citalopram 20 Mg Tab) 20 mg PO DAILY [facility] Stop: 07/28/24 08:59 Last Admin: 07/02/24 08:17 Dose: 20 mg Clopidogrel Bisulfate (Clopidogrel Bisulfate 75 Mg Tab) 75 mg PO DAILY [facility] Stop: 07/28/24 08:59 Last Admin: 07/02/24 08:13 Dose: 75 mg Diclofenac Sodium (Diclofenac Sod 1% Gel 100 Gm Tube) 2 gm EXT BID [facility]; Protocol Stop: 07/28/24 20:59 Last Admin: 07/02/24 08:16 Dose: 2 gm Docusate Sodium (Docusate Sodium 100 Mg Cap) 100 mg PO DAILY [facility] Stop: 07/28/24 08:59 Last Admin: 07/02/24 08:14 Dose: 100 mg Duloxetine HCl (Duloxetine Hcl 60 Mg Cap) 60 mg PO DAILY [facility] Stop: 07/28/24 08:59 Last Admin: 07/02/24 08:13 Dose: 60 mg Enoxaparin Sodium (Enoxaparin Inj 40 Mg/0.4 Ml Syr) 30 mg SQ Q24H [facility] Stop: 07/27/24 16:46 Last Admin: 07/01/24 16:06 Dose: Not Given Finasteride (Finasteride 5 Mg Tab) 5 mg PO DAILY [facility] Stop: 07/28/24 08:59 Last Admin: 07/02/24 08:17 Dose: 5 mg Furosemide (Furosemide 40 Mg Tab) 40 mg PO BID17 [facility] Stop: 07/27/24 16:59 Last Admin: 07/02/24 08:14 Dose: 40 mg Promethazine HCl (Phenergan) 6.25 mg in 50.25 mls @ 201 mls/hr IV Q6H PRN PRN Reason: Nausea And Vomiting Stop: 07/27/24 16:46 Ipratropium [place] (Ipratropium Hfa Inhaler (Combivent Respimat P&T Subs)) 1 puffs INH QIDR [facility]; Protocol Stop: 07/27/24 18:59 Last Admin: 07/02/24 07:15 Dose: 1 puffs Levothyroxine Sodium (Levothyroxine Sodium 100 Mcg Tablet) 100 mcg PO DAILYBB [facility] Stop: 07/28/24 06:29 Last Admin: 07/02/24 05:29 Dose: 100 mcg Lidocaine (Lidocaine 5% 1 Patch) 1 patch TD QAM [facility] Stop: 07/28/24 08:59 Last Admin: 07/02/24 08:16 Dose: 1 patch Miscellaneous (Remove Lidoderm Patch) 1 each N/A DAILY@2100 [facility] Stop: 07/27/24 20:59 Last Admin: 07/01/24 20:11 Dose: 1 each Miscellaneous (Remove Lidoderm Patch) 1 each N/A DAILY@2100 [facility] Stop: 07/27/24 20:59 Last Admin: 07/01/24 20:12 Dose: Not Given Montelukast Sodium (Montelukast Sodium 10 Mg Tablet) [facility] [place]: 07/28/24 08:59 Last Admin: 07/02/24 08:14 Dose: 10 mg Oxybutynin Chloride (Oxybutynin Chloride Xl 5 Mg Tabcr) 5 mg PO DAILY [facility] Stop: 07/28/24 08:59 Last Admin: 07/02/24 08:16 Dose: 5 mg Pantoprazole Sodium (Pantoprazole 40 Mg Tab) [facility] [place] Stop: 07/28/24 08:59 Last Admin: 07/02/24 08:14 Dose: 20 mg Polyethylene Glycol (Polyethylene (Miralax) 17 Gm Pack) 17 gm PO DAILY PRN PRN Reason: Constipation Stop: 07/27/24 16:46 Potassium Chloride (Potassium Chloride Crtab 20 Meq Tabcr) 20 meq PO [facility] Stop: 07/28/24 08:59 Last Admin: 07/02/24 08:14 Dose: 20 meq Propranolol HCl (Propranolol Hcl 20 Mg Tab) 20 mg PO TID [facility] Stop: 07/27/24 20:59 Last Admin: 07/02/24 08:13 Dose: 20 mg Rosuvastatin Calcium (Rosuvastatin Calcium 5 Mg Tab) 5 mg PO QAM [facility] Stop: 07/28/24 08:59 Last Admin: 07/02/24 08:14 Dose: 5 mg Spironolactone (Spironolactone 12.5 Mg Tab) 12.5 mg PO MOWEFR [facility] Stop: 07/29/24 08:59 Last Admin: 07/02/24 08:15 Dose: 12.5 mg Tamsulosin HCl (Tamsulosin Hcl 0.4 Mg Cap) 0.4 mg PO HS [facility] Stop: 07/27/24 20:59 Last Admin: 07/01/24 20:11 Dose: 0.4 mg (1) Fall Encounter type: initial encounter Qualified Code(s): W19.XXXA - Unspecified fall, initial encounter (4) Chronic respiratory failure Respiratory failure complication: hypoxia Qualified Code(s): J96.11 - Chronic respiratory failure with hypoxia
[2024-07-03 06:55] LABS: Basophils # (auto) 0.06 K/uL (0.00-0.20); Basophils % (auto) 0.4 %; Eosinophils % (auto) 2.2 %; Hematocrit (blood only) 39.8 % (42.0-52.0); Hemoglobin 13.5 g/dl (14.0-18.0); Immature Granulocytes # (auto) 0.29 K/uL (0.01-0.20); Immature Granulocytes % (auto) 2.1 %; Lymphocytes % (auto) 13.7 %; Mean Corpuscular Hemoglobin 31.4 pg (25.0-34.0); Mean Corpuscular Hgb Conc 33.9 g/dL (32.0-36.0); Mean Corpuscular Volume 92.6 fL (80.0-100.0); Monocytes # (auto) 1.24 K/uL (0.11-0.59); Monocytes % (auto) 8.9 %; Neutrophils # (auto) 10.12 K/uL (1.40-6.50); Neutrophils % (auto) 72.7 %; Platelet Count 169 K/uL (130-400); RDW Coefficient of Variation 14.2 % (11.5-14.5); RDW Standard Deviation 47.8 fL (36.4-46.3); White Blood Count 13.91 K/ul (4.8-10.8)
[2024-07-03 07:16] LABS: BUN Creatinine Ratio 17.4 (10-20); Calcium 9.6 mg/dl (8.6-10.3); Creatinine Clr Calc Pharmacy 71.8 ml/min; Potassium 3.9 mmol/L (3.5-5.1)
--- NOTE | 2024-07-03 11:43 | Hospitalist Progress Note ---
Date of Service July 03, 2024 Assessment & Plan (1) Fall: (2) Fracture of left tenth rib: (3) Ambulatory dysfunction: (4) Disabling essential tremor: (5) Chronic hypoxic respiratory failure, on home oxygen therapy: (6) COPD (chronic obstructive pulmonary disease): (7) Chronic respiratory failure: (8) (HFpEF) heart failure with preserved ejection fraction: (9) Hyperlipidemia: (10) BPH (benign prostatic hyperplasia): Plan Patient 83-year-old gentleman not on chronic oxygen presents with a fall and rib fracture. Pain appears to be controlled. Patient's severe essential tremor puts him at high risk for falls. Patient already on propranolol, can trial primidone as well. Continue therapies Case management pursuing placement options [facility] to [facility] Continue other medications as prescribed Admission and Anticipated Discharge Date Admission Date: June 27, 2024 Subjective Patient offers no acute complaints. Nurse reports that in the evening and overnight patient's essential tremor really becomes significant and making ambulation difficult. Patient reports his pain is controlled Physical Exam Physical Exam: Constitutional: Alert, nontoxic HEENT: Mucous membranes moist. Lungs: Decreased breath sounds, no wheezes CV: S1-S2, regular Abdomen: Soft, nontender, nondistended Extremities: No significant edema Neuro: Chronic essential tremor, tremor speech, chronic Psych: Cooperative, normal mood Results & Data Results & Data Vital Signs (Past 12 Hours) Vital Signs Temp Pulse Pulse Resp BP BP Pulse Ox 07/03/24 11:23 70 20 94 07/03/24 08:19 36.5 C 58 L 16 114/73 91 07/03/24 08:00 07/03/24 07:27 63 07/03/24 07:13 59 L 17 94 07/03/24 04:00 36.5 C 59 L 18 104/63 92 07/02/24 23:42 36.5 C 60 18 121/67 97 O2 Del Method O2 Flow Rate 07/03/24 11:23 Nasal Cannula 3 07/03/24 08:19 Nasal Cannula 07/03/24 08:00 Nasal Cannula 3 07/03/24 07:27 07/03/24 07:13 Nasal Cannula 3 07/03/24 04:00 Nasal Cannula 3 07/02/24 23:42 Nasal Cannula 3 Diagnostic Findings Reviewed imaging, laboratory and diagnostic studies. Pertinent findings as below. CBC, BMP stable (1) Fall Encounter type: initial encounter Qualified Code(s): W19.XXXA - Unspecified fall, initial encounter (7) Chronic respiratory failure Respiratory failure complication: hypoxia Qualified Code(s): J96.11 - Chronic respiratory failure with hypoxia
[2024-07-03] MEDS: PRIMIDONE 50 MG TAB PO SCH (20:53)
[2024-07-04] MEDS: PRIMIDONE 50 MG TAB PO PRN (01:11)
--- NOTE | 2024-07-04 10:30 | Discharge Summary ---
Discharge Summary Date of Service July 04, 2024 Principal Dx & Hospital Course #1 = Principal Diagnosis (1) Fall: (2) Fracture of left tenth rib: (3) Ambulatory dysfunction: (4) Disabling essential tremor: (5) Chronic hypoxic respiratory failure, on home oxygen therapy: (6) COPD (chronic obstructive pulmonary disease): (7) Chronic respiratory failure: (8) (HFpEF) heart failure with preserved ejection fraction: (9) Hyperlipidemia: (10) BPH (benign prostatic hyperplasia): (11) Hypothyroidism: Suppressed TSH Plan Patient 83-year-old gentleman who has been in and out of the hospital and rehab facilities for recurrent falls associated with his ambulatory dysfunction. Presented to the emergency room from home after he had lost his balance and fell against the tub. There is no definite loss of consciousness, however home health nurse found him on the floor and sent him to the emergency room. In the emergency room noted to have a rib fracture. Patient was admitted for pain control. He was treated with Lidoderm patch and Tylenol. He was seen by therapies and recommended rehab placement. Case management was involved in his care to help coordinate placement. It was noted that his TSH was suppressed and his Synthroid dose was decreased. He was up and ambulatory. Patient has known essential tremor. He is on scheduled propranolol. Still having significant symptoms with tremor affecting his ambulation. Primidone at bedtime was started to help control the symptoms. As needed primidone for severe tremors throughout the day. Patient's laboratory studies were stable. Vital signs were stable. Patient has chronic hypoxic respiratory failure on home oxygen. He was maintained on his usual home oxygen flow throughout his hospitalization. [facility]. Notes For Next Care Provider Recommend TSH in 4 to 6 weeks Recommend ongoing therapies Medication Changes From Visit Synthroid dose decreased to 100 mcg Primidone scheduled at bedtime and as needed through the day with complaints of severe tremor Admission HPI Per Admitting Provider Patient is 83 year old male with PMH chronic respiratory failure with hypoxia on home oxygen, hypothyroidism, hyperlipidemia, history of hypercalcemia, granulomatous lung disease, sleep apnea, restrictive lung disease, elevated hemidiaphragm, history of cad s/p stent hypertension, chronic right-sided heart failure, Schatzki's ring of the distal esophagus, idiopathic scoliosis, osteoporosis, essential tremor, depression, abnormality of gait and others listed below presented to ER with c/o fall. History obtained from patient and inpatient chart review. History recurrent hospital admissions for ambulatory dysfunction. Most recent admission 05/28/24-06/04/24 for ambulatory dysfunction and was discharged to SNF for rehab. Has since been at home. Using cane or walker at home. Patient living at home alone. States last night ambulated to bathroom and turned around and lost balance and fell with his back against the tub and knees against the sink. He doesn't think he hit his head and doesn't think he passed out. He was unable to get himself up off the floor. nurse found patient on the floor today. patient c/o some discomfort to left lateral posterior ribs. Denies other pain. Reports nonproductive coughing and denies increased SOB. Using his home oxygen as directed. Reports some dysuria. Reports chronic urinary urgency and incomplete bladder emptying. Denies fever/chills, diaphoresis, N/V/D/C, ASHLEY, dizziness, syncope, vision changes, neck pain, CP, palpitations, hemoptysis, rhinorrhea, abdominal pain, paresthesias, extremity edema, rashes, hematuria. Admission Exam Per Admitting Provider See H&P Discharge Exam Constitutional: Alert HEENT: Mucous membranes moist. Lungs: Clear to auscultation, decreased, no wheezes rales or rhonchi CV: S1-S2, regular Abdomen: Soft, nontender, nondistended Extremities: No significant edema Neuro: Chronic tremor, tremulous voice, at baseline Psych: Cooperative, normal mood Updated Medication List Medication Instructions Recorded Confirmed Type acetaminophen 500 mg tablet 1,000 mg (2 x 500 mg) PO Q8H PRN 07/13/23 06/27/24 Rx (Tylenol Extra Strength) fever or pain #90 tabs levothyroxine 112 mcg tablet 112 mcg PO DAILYBB #30 tabs 07/13/23 06/27/24 Rx docusate sodium 100 mg capsule 100 mg PO DAILY 05/28/24 06/27/24 History albuterol sulfate 90 mcg/actuation 2 inh inhalation Q2H PRN Wheezing 07/04/24 Rx aerosol inhaler #8.5 grams allopurinol 100 mg tablet 200 mg (2 x 100 mg) PO DAILY #60 07/04/24 Rx tabs citalopram 20 mg tablet 20 mg PO DAILY #30 tabs 07/04/24 Rx clopidogrel 75 mg tablet (Plavix) 75 mg PO DAILY #30 tabs 07/04/24 Rx duloxetine 60 mg capsule,delayed 60 mg PO DAILY #30 caps 07/04/24 Rx release dutasteride 0.5 mg capsule 0.5 mg PO DAILY #30 caps 07/04/24 Rx furosemide 40 mg tablet 40 mg PO BID #60 tabs 07/04/24 Rx ipratropium 20 mcg-albuterol 100 1 puff inhalation QID #4 grams 07/04/24 Rx mcg/actuation mist for inhalation (Combivent Respimat) levothyroxine 100 mcg tablet 100 mcg PO DAILYBB #30 tabs 07/04/24 Rx (Synthroid) lidocaine 5 % topical patch 1 patch transdermal QAM #20 ea 07/04/24 Rx montelukast 10 mg tablet 10 mg PO QAM #30 tabs 07/04/24 Rx (Singulair) pantoprazole 20 mg tablet,delayed 20 mg PO QAM #30 tabs 07/04/24 Rx release primidone 50 mg tablet 25 mg (1/2 x 50 mg) PO DAILY PRN 07/04/24 Rx Tremor #30 tabs primidone 50 mg tablet 50 mg PO HS #30 tabs 07/04/24 Rx propranolol 20 mg tablet 20 mg PO TID #90 tabs 07/04/24 Rx rosuvastatin 5 mg tablet 5 mg PO QAM #30 tabs 07/04/24 Rx solifenacin 5 mg tablet 5 mg PO DAILY #30 tabs 07/04/24 Rx spironolactone 25 mg tablet 12.5 mg (1/2 x 25 mg) PO MOWEFR 07/04/24 Rx #30 tabs tamsulosin 0.4 mg capsule 0.4 mg PO HS #30 caps 07/04/24 Rx Hospital Stay Data Consultations 06/27/24 14:36 ED Decision to Admit Stat Diagnostic Imagining Performed Reviewed imaging, laboratory and diagnostic studies. Pertinent findings as below. Wrist and lumbar spine x-rays unremarkable Rib series showed possible left 10th rib fracture nondisplaced, no pneumothorax WBCs 13.9, improved Hemoglobin 13.5 Platelets of 169 Electrolytes stable Creatinine 0.69 Pending Results Patient Have Any Pending Studies at Discharge: No Discharge Instructions Given to Patient (Per Discharging Provider) Continue with therapies Continue with home oxygen Total Time Total Time Spent Total Time Spent (In Minutes): 35
[2024-07-04 11:35] VITALS: RESP 20; TEMP 97.9; O2SAT 99
[2024-07-04 12:02] VITALS: BP 108/68; PULSE 70
== END 2024-07-04 14:06 | DRG 92 ==
LOC: ED 11:40 → 2N 15:18 → SUATTDRO 15:18 → 2N 16:15

== ENCOUNTER 2024-11-10 05:20 | Inpatient (IN) ==
[2024-11-10] MEDS: ONDANSETRON INJ 2 MG/ML 2 ML VIAL IV STA (05:40)
[2024-11-10] MEDS: ACETAMINOPHEN 1,000 MG/100 ML VIAL IV STA (05:42)
[2024-11-10 05:53] LABS: Hematocrit (blood only) 41.0 % (42.0-52.0); Hemoglobin 14.0 g/dl (14.0-18.0); Immature Granulocytes # (auto) 0.10 K/uL (0.01-0.20); Immature Granulocytes % (auto) 0.8 %; Mean Corpuscular Hemoglobin 32.1 pg (25.0-34.0); Mean Corpuscular Volume 94.0 fL (80.0-100.0); Platelet Count 158 K/uL (130-400); RDW Standard Deviation 49.3 fL (36.4-46.3); Red Blood Count 4.36 M/uL (4.70-6.10); White Blood Count 12.62 K/ul (4.8-10.8)
[2024-11-10 06:15] LABS: Alanine Aminotransferase 7.0 U/L (7-52); Albumin Globulin Ratio 1.5 (0.9-2); Albumin Level 4.2 gm/dl (3.4-5.0); Alkaline Phosphatase 91.0 U/L (34-104); Anion Gap 7.0 (3-11); Bilirubin,Total 0.6 mg/dl (0.2-1.0); Blood Urea Nitrogen 12.0 mg/dl (6-23); Calcium 9.7 mg/dl (8.6-10.3); Carbon Dioxide 32.0 mmol/L (21-32); Chloride 99.0 mmol/L (98-107); Creatinine Clr Calc Pharmacy 71.6 ml/min; Globulin 2.8 gm/dl (2.5-4.0); Glucose 113.0 mg/dl (70-99(Fasting)); Lipase 40.0 U/L (11-82); Potassium 3.4 mmol/L (3.5-5.1); Sodium 138.0 mmol/L (136-145); Total Protein 7.0 gm/dl (6.0-8.3)
[2024-11-10 06:20] LABS: Appearance Urine Cloudy (Clear); Glucose Urine UA Negative (Negative)
[2024-11-10] MEDS: OPTIRAY 320 100ml IV ONE (06:35)
[2024-11-10 06:46] LABS: Bacteria Urine Automated None Seen (Negative); Cast Urine Automated 0-2 /lpf (0-5); Epithelial Cell Urine Auto 0-2 /lpf (0-5); RBC Urine Automated >20 /hpf (0-4)
--- NOTE | 2024-11-10 08:19 | CT Scan Report ---
EXAM: CT abd pelvis IV con only CLINICAL HISTORY: grosss hematuria TECHNIQUE: Contiguous axial images were obtained from the level of the diaphragm to the pubic symphysis with intravenous contrast. Coronal and sagittal reconstructions were likewise performed and indicated to increase the sensitivity for detecting clinically relevant pathology. If IV contrast material had not been administered, the likelihood of detecting abnormalities relevant to the patient's condition would have been substantially decreased. The CT scan was performed according to ALARA (as low as reasonably achievable). COMPARISON: 19:34:13 [employer]. FINDINGS: Right diaphragmatic eventration. Few subsegmental areas of atelectasis are noted involving the bilateral lung bases. Severe levoscoliosis is noted involving the lumbar spine. The liver is normal in size and attenuation. No focal liver lesions are seen. There is no intrahepatic or extrahepatic biliary ductal dilatation. Hepatic vasculature is patent. The gallbladder is present. The spleen, pancreas, and adrenal glands are unremarkable. Multiple calcified splenic granulomas are present. The kidneys are normal in size and attenuation. About 8.5 mm sized calculus is noted involving the right renal pelvis. The right kidney also shows non-obstructing calculi measuring 2 mm in the mid-calyx and 9 mm in the lower calyx. About 15 mm sized calculus is noted involving the left renal pelvis. Few simple cortical cysts are noted in both kidneys?the largest measures about 9 cm on the right and 5 cm on the left side. The ureters are normal in caliber, and no ureteral calculi are seen. The bladder is collapsed with the Ibrahim's bulb seen in situ. A heterogeneously hyperdense area is noted within the bladder lumen adjacent to the Ibrahim's bulb; ultrasound correlation is suggested. Pelvic viscera are unremarkable. No focal or diffuse bowel wall thickening or evidence of bowel obstruction is identified. No imaging evidence of appendicitis. Abdominal and pelvic vasculature is patent. No adenopathy or fluid collections are seen. No aggressive appearing osseous lesions are identified. Fat-containing umbilical hernia. Degenerative changes are noted in the visualized spine in the form of marginal osteophytes, endplate irregularities and sclerosis, reduction in the disc height, small posterior disc bulges, vacuum phenomenon and facet arthropathy changes, predominantly at lower lumbar levels. Severe levoscoliosis of thoracolumbar spine IMPRESSION: 1. About 8.5 mm sized calculus is noted involving the right renal pelvis. Stable. 2. The right kidney also shows non-obstructing calculi of size 2 mm in the mid-calyx and 9 mm in the lower calyx. Stable. 3. About 15 mm sized calculus is noted involving the left renal pelvis. Stable. 4. Few simple cortical cysts are noted in both kidneys. Stable. 5. The bladder is collapsed with the Ibrahim's bulb seen in situ. A heterogeneously hyperdense area is noted within the bladder lumen adjacent to the Ibrahim's bulb, which could be a blood clot; ultrasound correlation is suggested. New finding. 6. Multiple calcified splenic granulomas. Stable. 7. Spondylodegenerative changes with severe levoscoliosis of thoracolumbar spine.stable 8. No other new interval abnormality since prior study. Electronically signed by Jaime Humphrey 11-10-2024 08:18 AM
--- NOTE | 2024-11-10 08:59 | Emergency Department Note ---
Impression & Plan Gross hematuria, Hypokalemia, Nephrolithiasis ED Provider Note NAME: BLANCA MAHONEY AGE: 84 SEX: M : 1940 ARRIVES VIA: Ambulance INFORMANT: Patient, EMS ED PROVIDER(S): Brennan Mas DO CHIEF COMPLAINT: gross hematuria HPI: This is a 84-year-old male who is medically complex with recent cysto/lithotripsy by Dr. Gu ([facility]) presenting to [facility] for further evaluation of ongoing groin pain associated with gross hematuria. Patient is accompanied by EMS who provide additional history. EMS states he currently resides at [facility]. EMS reports he was hemodynamically stable and route. They is nursing care facility was reporting confusion as well as possible fever. Patient has no complaints other than pain within his groin and discomfort from the urethral catheter. He has noted gross hematuria. Patient states he feels generally unwell. They deny fever or chills. No cough or congestion. Denies chest pain or palpitations. No shortness of breath. They deny abdominal pain, nausea and vomiting. No urinary complaints. No recent changes in bowel movements. Patient denies recent changes in medications or OTC supplements. Patient offers no other complaints, today. ADDITIONAL HISTORY OBTAINED: Per HPI Chronic Medical/Social Conditions Affecting Care: Per HPI PAST MEDICAL HISTORY: See Below PAST SURGICAL HISTORY: See Below FAMILY HISTORY: See Below SOCIAL HISTORY: See Below HOME MEDICATIONS: See Below ALLERGIES: See Below VITALS: See Below PHYSICAL EXAMINATION: GENERAL: Sitting up in bed, alert, well appearing, well nourished, no distress, non-toxic EYE EXAM: normal conjunctiva. PERRL and EOM's grossly intact. OROPHARYNX: no exudate, no erythema, lips, buccal mucosa, and tongue normal and mucous membranes are moist NECK: supple, no nuchal rigidity, no adenopathy, non-tender LUNGS: Clear to auscultation. Normal chest wall mechanics HEART: no murmurs, regular rate, regular rhythm ABDOMEN: abdomen soft, non-tender, no masses, no rebound or guarding. : urethral catheter in place draining ludin red blood. No large clots. No significant urethral erosion present. BACK: Back is symmetrical on inspection and there is no deformity, no midline tenderness, no CVA tenderness. SKIN: no rashes and no bruising UPPER EXTREMITIES: upper extremities are grossly normal. LOWER EXTREMITIES: No pitting edema. NEURO EXAM: Normal sensorium, GCS 15, normal speech, no gross weakness of arms, no gross weakness of legs. MEDICAL DECISION MAKING: Differential diagnoses includes but not limited to gross hematuria, postoperative bleeding, nephrolithiasis, ureterolithiasis, bladder cancer, symptomatic anemia, complicated UTI In summary, this is a 84 year old male who presented with gross hematuria. Differential as above. Nursing notes and pertinent past medical records reviewed. Vital signs reviewed and the patient is afebrile and hemodynamically stable. History and presentation revealed recent urologic procedure that sounds per patient report to be a cystoscopy with lithotripsy. I would expect some hematuria in the setting of this procedure but does appear to be ludin blood. Physical examination revealed as above. As a result of my initial evaluation, we will plan for manual irrigation of the patient's urethral catheter. He may benefit from CBI.. Diagnostics interpreted by me include EKG and cardiac monitoring as listed below: -Cardiac Monitoring: An order was placed for continuous cardiac monitoring. The monitor shows a rate of 60s with regular rhythm. -ECG: normal sinus rhythm at a ventricular rate of [address] segment changes to suggest STEMI. Intervals are otherwise within normal limits. Patient completed laboratory studies and imaging. Results independently interpreted by me are Minimal leukocytosis. No significant anemia. Hypokalemia noted and p.o. replenishment ordered. Patient does not have a urinary tract infection. Patient has normal kidney function. LFTs are normal. CT abdomen/pelvis independently interpreted by me as positive for multiple nephrolithiasis that appears stable as compared to prior. Patient does have hypertense material within the bladder likely related to blood clots. Will perform manual irrigation. He was initially managed with Tylenol as well as Zofran. He had minimal improvement and was given Uro-Jet as well as fentanyl with improvement in his symptoms. Patient was discussed with the skilled nursing. There can concern for acute encephalopathy as well as low-grade fevers. Patient has had gross hematuria. He has required multiple times of manual irrigation. Patient may need CBI. His procedure was performed by a [facility] urologist. I did not feel is necessary to touch base with them at this time as this is likely normal in the postoperative period from lithotripsy as well as cystoscopy. Patient was admitted to the hospitalist team. Ultimately, the decision was made to admit the patient for gross hematuria requiring manual irrigation and possible CBI. I discussed the case with the hospitalist service via telephone/TigerText and they are agreeable to admit the patient to their services. Based on the above, including the patient's age, coexisting illnesses, labs, imaging, and exam findings the decision to treat as an inpatient. I discussed the patient with the hospitalist team who recommended admission to their services. They received the medications, treatments, interventions indicated above and their condition Remained stable. I discussed my findings with the patient and their family and they understand and agree with the treatment plan. All patient / family questions were answered to their satisfaction. Consults/Care Managements Discussions: Per MDM ER treatment provided: See above Procedures:none Critical Care: None The chart was completed utilizing Voice Of TV Speech voice recognition software. Grammatical errors, random word insertions, pronoun errors, and incomplete sentences are an occasional consequence of this system due to software limitations, ambient noise, and hardware issues. Any formal questions or concerns about the content, text, or information contained within the body of this dictation should be directly addressed to the physician for clarification. Past Med/Surg History Problem List (Updated 11/13/24 @ 18:26 by Brennan Mas DO) Nephrolithiasis (Acute) Gross hematuria (Acute) BPH NOS w ur obs/LUTS Gross hematuria Disabling essential tremor Fracture of left tenth rib Abnormal urinalysis Leukocytosis (Acute) Fall (Acute) (HFpEF) heart failure with preserved ejection fraction BPH (benign prostatic hyperplasia) Ambulatory dysfunction (Acute) Weakness (Acute) Back pain Chronic respiratory failure (Acute) Dizziness (Acute) Fall (Acute) Kidney stones ONE PRESENT/NO PROBLEMS WITH Hematuria Ambulatory dysfunction (Acute) Chronic hypoxic respiratory failure, on home oxygen therapy (Acute) Fall (Acute) Dizziness (Acute) Leukocytosis (Acute) Ambulatory dysfunction (Acute) Generalized weakness (Acute) COPD (chronic obstructive pulmonary disease) (Chronic) Physical deconditioning (Acute) Dependence on supplemental oxygen (Acute) Fall Elevated hemidiaphragm Pneumonia Scoliosis (Acute) Right heart failure Hypokalemia (Acute) Acute and chronic respiratory failure Chronic obstructive pulmonary disease Depression Hyperlipidemia Hypertension Shortness of breath (Acute) Pulmonary edema (Acute) Acute exacerbation of CHF (congestive heart failure) (Acute) Encounter for pre-operative examination Spinal stenosis (Chronic) Encounter for pre-operative examination Acute respiratory failure (Acute) Shortness of breath Leukocytosis Aspiration into airway Medical History Mood disorder Bilateral shoulder pain Fall Acute on chronic respiratory failure with hypoxemia Acute and chronic respiratory failure with hypercapnia Pulmonary embolism COVID-19 Choking REASON FOR UPCOMING PROCEDURE PER PT Ankle swelling PT PLANS TO DISCUSS WITH DR PT REPORTS DR HAD HIM STOP FLUID PILL AND NOT SURE WHY Infected dental caries Subperiosteal abscess of jaw Acute periodontal abscess Pain, dental Generalized muscle weakness Lower urinary tract symptoms (LUTS) Hypoxia DVT prophylaxis Chronic right-sided heart failure Fall HX, NOT RECENTLY Cervical spine fracture LAST SUMMER NO LIMITATIONS SOB (shortness of breath) on exertion with wheezing Scoliosis Chronic back pain GERD (gastroesophageal reflux disease) Hypothyroidism On anticoagulant therapy plavix daily 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 Myocardial Infarction 2009 Sleep apnea uses 4 L N/C MOSTLY ALL THE TIME On home oxygen therapy 3-4 L CONTINUOUS MOSTLY, AND PRN PER PT COPD (chronic obstructive pulmonary disease) Dyslipidemia HTN (hypertension) Surgical History Hx of oral surgery (07/05/21) Multiple Teeth Extractions for Facial Infection - Sin Chacko DMD NO CURRENT INFECTION PER PT (PAT CALL 08/18/21) History of testicular surgery "sac full of blood in testicle drained at 26 yrs old" History of heart artery stent x1 2009--[facility] [place] History of open reduction and internal fixation (ORIF) procedure left foot fx/pinky toe fx--hardware in place History of lithotripsy Hx of vasectomy Hx of right inguinal hernia repair History of colonoscopy History of esophagogastroduodenoscopy (EGD) History of wisdom tooth extraction History of tonsillectomy History of bilateral cataract extraction History of cardiac cath 2009 @ [facility] [place] with 1 stent--follows with Dr. James Vickersed coronary artery "bare metal stent to LAD 2008" Family History Sister Family history of reaction to anesthesia nausea/vomiting Mother Family history of diabetes mellitus Social History Smoking Status: Former smoker Tobacco Type: Pipe Cigarettes Per Day: SMOKED PIPE/CIGAR AGE 20'S; Second Hand Exposure: No; Do You Dip or Chew Tobacco: No; Hx Alcohol Use: No Hx Substance Use: No Preferred Language: Polish Communication Ability: Effective Communication Tools: Other Visual Impairment: No Limitations Digital Advisor Required: No Beliefs That Will Affect Care: None marital status: Current Living Situation: [facility] Current Living Situation Comment: [facility] How many Children do You have: 1 Feels Safe at Home: Yes Assistive Devices: Cane, Oxygen - Continuous and Walker Allergies Allergies Allergy/AdvReac Type Severity Reaction Status Date / Time tramadol AdvReac Intermediate Hallucinati Verified 03/12/23 02:38 ng grapefruit AdvReac Unknown WAS TOLD Verified 03/12/23 02:38 NOT TO TAKE BECAUSE OF CHOLESTROL PILL. Home Meds Home Medications Medication Instructions Recorded Confirmed docusate sodium 100 mg capsule 100 mg PO QPM 05/28/24 11/10/24 acetaminophen 500 mg tablet 1,000 mg PO DAILY PRN Pain/Fever 11/10/24 11/10/24 acetaminophen 500 mg tablet 1,000 mg PO BID Chronic pain 11/10/24 11/10/24 (Tylenol Extra Strength) allopurinol 100 mg tablet 200 mg PO QAM 11/10/24 11/10/24 aspirin 81 mg chewable tablet 81 mg PO QAM 11/10/24 11/10/24 citalopram 20 mg tablet 20 mg PO QAM 11/10/24 11/10/24 clopidogrel 75 mg tablet (Plavix) 0 mg PO DAILY 11/10/24 11/10/24 diclofenac sodium 1 % topical gel 2 g topical TID PRN Pain 11/10/24 11/10/24 duloxetine 60 mg capsule,delayed 60 mg PO QAM 11/10/24 11/10/24 release finasteride 5 mg tablet 5 mg PO QAM 11/10/24 11/10/24 magnesium hydroxide 400 mg/5 mL 2,400 mg PO DAILY PRN Constipation 11/10/24 11/10/24 oral suspension (Milk of Magnesia) meclizine 12.5 mg tablet 12.5 mg PO Q8H PRN Dizziness Or 11/10/24 11/10/24 Vertigo oxybutynin chloride 10 mg 10 mg PO QAM 11/10/24 11/10/24 tablet,extended release 24 hr polyethylene glycol 3350 17 17 g PO QAM 11/10/24 11/10/24 gram/dose oral powder (Miralax) sodium chloride 0.65 % nasal spray 2 spray intranasal QID 11/10/24 11/10/24 aerosol ([place] Sea Nasal) sulfamethoxazole 800 1 tab PO BID 11/10/24 11/10/24 mg-trimethoprim 160 mg tablet (Bactrim DS) Previous Rx's Medication Instructions Recorded albuterol sulfate 90 mcg/actuation 2 inh inhalation Q2H PRN Wheezing 07/04/24 aerosol inhaler #8.5 grams furosemide 40 mg tablet 40 mg PO BID #60 tabs 07/04/24 ipratropium 20 mcg-albuterol 100 1 puff inhalation QID #4 grams 07/04/24 mcg/actuation mist for inhalation (Combivent Respimat) levothyroxine 100 mcg tablet 100 mcg PO DAILYBB #30 tabs 07/04/24 (Synthroid) montelukast 10 mg tablet 10 mg PO QAM #30 tabs 07/04/24 (Singulair) pantoprazole 20 mg tablet,delayed 20 mg PO QAM #30 tabs 07/04/24 release primidone 50 mg tablet 25 mg (1/2 x 50 mg) PO DAILY PRN 07/04/24 Tremor #30 tabs primidone 50 mg tablet 50 mg PO HS #30 tabs 07/04/24 propranolol 20 mg tablet 20 mg PO TID #90 tabs 07/04/24 rosuvastatin 5 mg tablet 5 mg PO QAM #30 tabs 07/04/24 spironolactone 25 mg tablet 12.5 mg (1/2 x 25 mg) PO MOWEFR 07/04/24 #30 tabs tamsulosin 0.4 mg capsule 0.4 mg PO HS #30 caps 07/04/24 Results & Data (ED) Vital Signs Vital Signs - 24 hr 11/10/24 05:24 11/10/24 05:26 11/10/24 05:36 Temperature 37.1 C Temperature Source Oral Pulse Rate 67 69 Pulse Rate [Apical] Pulse Rate from SpO2 Sensor Pulse Rhythm [Apical] Pulse Strength [Apical] Respiratory Rate 20 Respiratory Effort / Characteristics Non-Labored Spontaneous Respiratory Depth Normal Respiratory Pattern Blood Pressure 124/72 Blood Pressure [Left Arm] Blood Pressure Mean 89 Blood Pressure Mean [Left Arm] Blood Pressure Position [Left Arm] Pulse Oximetry 95 94 Oxygen Delivery Method Nasal Cannula Oxygen Flow Rate 3 3 Sepsis Recent Fever Within 48 Hours No Sepsis New/Unexplained Change in Mental Status N/A Sepsis Action Taken by Nursing No Action Required 11/10/24 06:00 11/10/24 06:30 11/10/24 07:00 Temperature Temperature Source Pulse Rate 64 65 Pulse Rate [Apical] 62 Pulse Rate from SpO2 Sensor Pulse Rhythm [Apical] Regular Pulse Strength [Apical] Normal Respiratory Rate 16 18 20 Respiratory Effort / Characteristics Non-Labored Spontaneous Respiratory Depth Normal Respiratory Pattern Regular Blood Pressure 129/76 125/68 Blood Pressure [Left Arm] 127/68 Blood Pressure Mean 85 99 Blood Pressure Mean [Left Arm] 87 Blood Pressure Position [Left Arm] Semi-fowlers Pulse Oximetry 97 92 94 Oxygen Delivery Method Nasal Cannula Oxygen Flow Rate 3 Sepsis Recent Fever Within 48 Hours Sepsis New/Unexplained Change in Mental Status Sepsis Action Taken by Nursing 11/10/24 09:00 11/10/24 09:16 11/10/24 11:07 Temperature 36.8 C Temperature Source Oral Pulse Rate 62 Pulse Rate [Apical] 66 Pulse Rate from SpO2 Sensor 62 Pulse Rhythm [Apical] Regular Pulse Strength [Apical] Normal Respiratory Rate 15 18 Respiratory Effort / Characteristics Non-Labored Spontaneous Respiratory Depth Normal Respiratory Pattern Regular Blood Pressure 125/70 Blood Pressure [Left Arm] 128/77 Blood Pressure Mean 88 Blood Pressure Mean [Left Arm] 94 Blood Pressure Position [Left Arm] Lying Pulse Oximetry 93 93 Oxygen Delivery Method Nasal Cannula Nasal Cannula Oxygen Flow Rate 3 3 Sepsis Recent Fever Within 48 Hours Sepsis New/Unexplained Change in Mental Status Sepsis Action Taken by Nursing 11/10/24 11:09 Temperature Temperature Source Pulse Rate 64 Pulse Rate [Apical] Pulse Rate from SpO2 Sensor 65 Pulse Rhythm [Apical] Pulse Strength [Apical] Respiratory Rate 17 Respiratory Effort / Characteristics Respiratory Depth Respiratory Pattern Blood Pressure Blood Pressure [Left Arm] Blood Pressure Mean Blood Pressure Mean [Left Arm] Blood Pressure Position [Left Arm] Pulse Oximetry 95 Oxygen Delivery Method Nasal Cannula Oxygen Flow Rate 3 Sepsis Recent Fever Within 48 Hours Sepsis New/Unexplained Change in Mental Status Sepsis Action Taken by Nursing Laboratory Data 11/13/24 05:50 11/13/24 05:50 Lab Results 11/10/24 11/10/24 Range/Units 05:35 05:47 WBC 12.62 H (4.8-10.8) K/ul RBC 4.36 L (4.70-6.10) M/uL Hgb 14.0 (14.0-18.0) g/dl Hct 41.0 L (42.0-52.0) % MCV 94.0 (80.0-100.0) fL MCH 32.1 (25.0-34.0) pg MCHC 34.1 (32.0-36.0) g/dL RDW Std Deviation 49.3 H (36.4-46.3) fL RDW Coeff of Mannie 14.1 (11.5-14.5) % Plt Count 158 (130-400) K/uL MPV 9.8 (9.4-12.4) fL Immature Gran % (Auto) 0.8 % Neut % (Auto) 75.0 % Lymph % (Auto) 13.1 % [place] % (Auto) 9.4 % Eos % (Auto) 1.3 % Baso % (Auto) 0.4 % Neut # (Auto) 9.46 H (1.40-6.50) K/uL Lymph # (Auto) 1.65 (1.20-3.40) K/uL [place] # (Auto) 1.19 H (0.11-0.59) K/uL Eos # (Auto) 0.17 (0.00-0.50) K/uL Baso # (Auto) 0.05 (0.00-0.20) K/uL Immature Gran # (Auto) 0.10 (0.01-0.20) K/uL Sodium 138 (136-145) mmol/L Potassium 3.4 L (3.5-5.1) mmol/L Chloride 99 (98-107) mmol/L Carbon Dioxide 32 (21-32) mmol/L Anion Gap 7 (3-11) BUN 12 (6-23) mg/dl Creatinine 0.68 (0.6-1.4) mg/dl Est Cr Clr Drug Dosing 71.6 ml/min eGFR 92.23 BUN/Creatinine Ratio 17.6 (10-20) Glucose 113 H (70-99(Fasting)) mg/dl Calcium 9.7 (8.6-10.3) mg/dl Total Bilirubin 0.6 (0.2-1.0) mg/dl AST 13 (13-39) U/L ALT 7 (7-52) U/L Alkaline Phosphatase 91 (34-104) U/L Troponin I High Sens 12.1 (0-20) pg/ml Total Protein 7.0 (6.0-8.3) gm/dl Albumin 4.2 (3.4-5.0) gm/dl Globulin 2.8 (2.5-4.0) gm/dl Albumin/Globulin Ratio 1.5 (0.9-2) Lipase 40 (11-82) U/L Urine Color Yellow Urine Appearance Cloudy A (Clear) Urine pH 8.5 H (4.5-7.5) Ur Specific [place] 1.018 (1.000-1.030) Urine Protein 3+ H (Negative) Urine Glucose (UA) Negative (Negative) Urine Ketones Negative (Negative) Urine Blood 3+ H (Negative) Urine Nitrite Negative (Negative) Urine Bilirubin Negative (Negative) Urine Urobilinogen Positive H (Negative) Ur Leukocyte Esterase 2+ H (Negative) Urine WBC (Auto) 6-10 (0-5) /hpf Urine RBC (Auto) >20 (0-4) /hpf U Hyaline Cast (Auto) 0-2 (0-5) /lpf U Epithel Cells (Auto) 0-2 (0-5) /lpf Urine Bacteria (Auto) None Seen (Negative) Urine Comment Administered Medications Acetaminophen (Acetaminophen 325 Mg Tab) 325 mg PO Q6H PRN PRN Reason: Pain or Fever Stop: 12/13/24 07:17 Last Admin: 11/13/24 15:50 Dose: 325 mg Documented By: CHAKA Albuterol (Albuterol Hfa 8 Gm Inhaler (Combivent Respimat P&T Subs)) 1 puffs INH QIDR SAHIL; Protocol Stop: 12/10/24 14:59 Last Admin: 11/13/24 15:12 Dose: 1 puffs Documented By: Admin: 11/13/24 11:45 Dose: 1 puffs Documented By: Admin: 11/13/24 07:02 Dose: 1 puffs Documented By: Admin: 11/12/24 20:56 Dose: 1 puffs Documented By: arlin Admin: 11/12/24 15:05 Dose: 1 puffs Documented By: Admin: 11/12/24 10:38 Dose: 1 puffs Documented By: Admin: 11/12/24 07:15 Dose: 1 puffs Documented By: Admin: 11/11/24 19:33 Dose: 1 puffs Documented By: vipul Admin: 11/11/24 15:49 Dose: 1 puffs Documented By: Admin: 11/11/24 11:02 Dose: 1 puffs Documented By: Admin: 11/11/24 07:51 Dose: 1 puffs Documented By: Admin: 11/10/24 19:48 Dose: 1 puffs Documented By: Admin: 11/10/24 15:48 Dose: 1 puffs Documented By: CECILIO [facility]op[facility]ol ([facility]ol 100 Mg Tab) [facility] [place]: 12/10/24 12:59 Last Admin: 11/13/24 08:56 Dose: 200 mg Documented By: Admin: 11/12/24 08:52 Dose: 200 mg Documented By: Admin: 11/11/24 09:33 Dose: 200 mg Documented By: Admin: 11/10/24 14:29 Dose: Not Given Documented By: KENNA Cefdinir (Cefdinir 300 Mg Cap) 300 mg PO BID SAHIL; Protocol Stop: 11/19/24 09:01 Last Admin: 11/13/24 08:53 Dose: 300 mg Documented By: juan f Co-signed By: CHAKA Admin: 11/12/24 21:02 Dose: 300 mg Documented By: OTILIO Citalopram Hydrobromide (Citalopram 20 Mg Tab) [facility] Stop: 12/10/24 12:59 Last Admin: 11/13/24 08:11 Dose: 20 mg Documented By: Admin: 11/12/24 08:53 Dose: 20 mg Documented By: Admin: 11/11/24 09:34 Dose: 20 mg Documented By: Admin: 11/10/24 14:29 Dose: Not Given Documented By: KENNA Docusate Sodium (Docusate Sodium 100 Mg Cap) 100 mg PO QPM SAHIL Stop: 12/10/24 20:59 Last Admin: 11/12/24 21:12 Dose: 100 mg Documented By: Admin: 11/11/24 21:31 Dose: 100 mg Documented By: vipul Admin: 11/10/24 20:28 Dose: 100 mg Documented By: vipul Duloxetine HCl (Duloxetine Hcl 60 Mg Cap) 60 [facility] Stop: 12/11/24 08:59 Last Admin: 11/13/24 08:56 Dose: 60 mg Documented By: Admin: 11/12/24 08:53 Dose: 60 mg Documented By: Admin: 11/11/24 09:33 Dose: 60 mg Documented By: KENNA Finasteride (Finasteride 5 Mg Tab) 5 mg PO QAM [facility] Stop: 12/11/24 08:59 Last Admin: 11/13/24 08:58 Dose: 5 mg Documented By: Admin: 11/12/24 08:53 Dose: 5 mg Documented By: Admin: 11/11/24 09:35 Dose: 5 mg Documented By: KENNA Ipratropium [place] (Ipratropium Hfa Inhaler (Combivent Respimat P&T Subs)) 1 puffs INH QIDR [facility]; Protocol Stop: 12/10/24 14:59 Last Admin: 11/13/24 15:12 Dose: 1 puffs Documented By: Admin: 11/13/24 11:45 Dose: 1 puffs Documented By: Admin: 11/13/24 07:03 Dose: 1 puffs Documented By: Admin: 11/12/24 20:55 Dose: 1 puffs Documented By: arlin Admin: 11/12/24 15:04 Dose: 1 puffs Documented By: Admin: 11/12/24 10:39 Dose: 1 puffs Documented By: Admin: 11/12/24 07:15 Dose: 1 puffs Documented By: Admin: 11/11/24 19:33 Dose: 1 puffs Documented By: vipul Admin: 11/11/24 15:49 Dose: 1 puffs Documented By: Admin: 11/11/24 11:02 Dose: 1 puffs Documented By: Admin: 11/11/24 07:51 Dose: 1 puffs Documented By: Admin: 11/10/24 19:48 Dose: 1 puffs Documented By: Admin: 11/10/24 15:48 Dose: 1 puffs Documented By: CECILIO Levothyroxine Sodium (Levothyroxine Sodium 100 Mcg Tablet) 100 mcg PO DAILYBB [facility] Stop: 12/11/24 06:29 Last Admin: 11/13/24 06:26 Dose: 100 mcg Documented By: Admin: 11/12/24 05:32 Dose: 100 mcg Documented By: vipul Admin: 11/11/24 05:42 Dose: 100 mcg Documented By: vipul Lidocaine (Lidocaine 5% 1 Patch) [facility] Stop: 12/11/24 08:59 Last Admin: 11/13/24 08:57 Dose: Not Given Documented By: Admin: 11/12/24 08:57 Dose: Not Given Documented By: Admin: 11/11/24 09:33 Dose: 1 patch Documented By: KENNA Magnesium Hydroxide (Magnesium Hydroxide Susp 30 Ml Udc) 30 ml PO Q6H PRN PRN Reason: Constipation Stop: 12/10/24 12:59 Last Admin: 11/12/24 21:12 Dose: 30 ml Documented By: OTILIO Miscellaneous (Remove Lidoderm Patch) 1 each N/A DAILY@2100 [facility] Stop: 12/10/24 20:59 Last Admin: 11/12/24 21:04 Dose: Not Given Documented By: Admin: 11/11/24 21:32 Dose: Not Given Documented By: vipul Admin: 11/10/24 20:31 Dose: 1 each Documented By: vipul Oxybutynin Chloride (Oxybutynin Chloride Xl 5 Mg Tabcr) 10 mg PO [facility] Stop: 12/11/24 08:59 Last Admin: 11/13/24 08:56 Dose: 10 mg Documented By: Admin: 11/12/24 08:51 Dose: 10 mg Documented By: Admin: 11/11/24 09:33 Dose: 10 mg Documented By: KENNA Pantoprazole Sodium (Pantoprazole 40 Mg Tab) 40 mg PO [facility] Stop: 12/11/24 08:59 Last Admin: 11/13/24 08:57 Dose: 40 mg Documented By: Admin: 11/12/24 08:54 Dose: 40 mg Documented By: Admin: 11/11/24 09:33 Dose: 40 mg Documented By: KENNA Polyethylene Glycol (Polyethylene (Miralax) 17 Gm Pack) 17 [facility] [place]: 12/11/24 08:59 Last Admin: 11/13/24 09:01 Dose: Not Given Documented By: Admin: 11/12/24 08:59 Dose: 17 gm Documented By: Admin: 11/11/24 09:43 Dose: 17 gm Documented By: KENNA Primidone (Primidone 50 Mg Tab) 50 mg PO HS SAHIL Stop: 12/10/24 20:59 Last Admin: 11/12/24 21:03 Dose: 50 mg Documented By: Admin: 11/11/24 22:14 Dose: 50 mg Documented By: vipul Admin: 11/10/24 20:33 Dose: 50 mg Documented By: vipul Propranolol HCl (Propranolol Hcl 20 Mg Tab) 20 mg PO TID SAHIL Stop: 12/10/24 13:59 Last Admin: 11/13/24 13:44 Dose: 20 mg Documented By: juan f(2) Admin: 11/13/24 08:13 Dose: 20 mg Documented By: Admin: 11/12/24 21:03 Dose: 20 mg Documented By: Admin: 11/12/24 14:03 Dose: 20 mg Documented By: Admin: 11/12/24 08:52 Dose: 20 mg Documented By: Admin: 11/11/24 21:31 Dose: 20 mg Documented By: vipul Admin: 11/11/24 13:32 Dose: 20 mg Documented By: Admin: 11/11/24 09:23 Dose: Not Given Documented By: Admin: 11/10/24 20:28 Dose: 20 mg Documented By: vipul Admin: 11/10/24 14:30 Dose: Not Given Documented By: KENNA Rosuvastatin Calcium (Rosuvastatin Calcium 5 Mg Tab) 5 mg PO QAM SAHIL Stop: 12/11/24 08:59 Last Admin: 11/13/24 08:56 Dose: 5 mg Documented By: Admin: 11/12/24 08:53 Dose: 5 mg Documented By: Admin: 11/11/24 09:33 Dose: 5 mg Documented By: KENNA Sodium Chloride (Sodium Chloride 0.65% Na Soln 45 Ml (Coryell)) 2 sprays NA QID SAHIL Stop: 12/10/24 12:59 Last Admin: 11/13/24 15:51 Dose: Not Given Documented By: Admin: 11/13/24 12:32 Dose: Not Given Documented By: Admin: 11/13/24 08:14 Dose: Not Given Documented By: Admin: 11/12/24 21:03 Dose: 2 sprays Documented By: Admin: 11/12/24 16:11 Dose: Not Given Documented By: Admin: 11/12/24 12:13 Dose: Not Given Documented By: CFRasheed Admin: 11/12/24 08:54 Dose: 2 sprays Documented By: Admin: 11/11/24 21:31 Dose: 2 sprays Documented By: vipul Admin: 11/11/24 18:20 Dose: Not Given Documented By: Admin: 11/11/24 13:32 Dose: 2 sprays Documented By: Admin: 11/11/24 09:33 Dose: 2 sprays Documented By: Admin: 11/10/24 20:35 Dose: 2 sprays Documented By: vipul Admin: 11/10/24 18:49 Dose: Not Given Documented By: Admin: 11/10/24 14:29 Dose: Not Given Documented By: KENNA Tamsulosin HCl (Tamsulosin Hcl 0.4 Mg Cap) 0.4 mg PO HS [facility] Stop: 12/10/24 20:59 Last Admin: 11/12/24 21:04 Dose: 0.4 mg Documented By: Admin: 11/11/24 21:31 Dose: 0.4 mg Documented By: vipul Admin: 11/10/24 20:28 Dose: 0.4 mg Documented By: vipul Discontinued Medications Albuterol (Albuterol 0.083% Nebu Soln 3 Ml Vial) 2.5 mg NEB TODAY@2356 [facility]; Protocol Stop: 11/11/24 02:30 Last Admin: 11/11/24 02:11 Dose: 2.5 mg Documented By: JESUSITA Albuterol (Albuterol 0.083% Nebu Soln 3 Ml Vial) Confirm Administered Dose 2.5 mg .ROUTE .STK-MED ONE Stop: 11/11/24 02:07 Last Admin: 11/11/24 03:09 Dose: Not Given Documented By: vipul Fentanyl Citrate (Fentanyl Citrate Pf 100 Mcg/2 Ml Vial) 50 mcg IV NOW ONE Stop: 11/10/24 09:00 Last Admin: 11/10/24 09:17 Dose: 50 mcg Documented By: TDM Furosemide (Furosemide 40 Mg Tab) 40 mg PO BID17 SAHIL Stop: 12/10/24 12:59 Last Admin: 11/10/24 14:29 Dose: Not Given Documented By: KENNA Acetaminophen (Ofirmev) 1,000 mg in 100 mls @ 400 mls/hr IV NOW STA Stop: 11/10/24 05:37 Last Infusion: 11/10/24 06:00 Dose: Infused Documented By: Admin: 11/10/24 05:42 Dose: 400 mls/hr Documented By: DON Piperacillin Sod/Tazobactam Sod (Zosyn) 4.5 gm in 100 mls @ 200 mls/hr IV NOW STA; Protocol Stop: 11/10/24 13:26 Last Infusion: 11/10/24 15:43 Dose: Infused Documented By: Infusion: 11/10/24 15:15 Dose: 200 mls/hr Documented By: Infusion: 11/10/24 14:52 Dose: 0 mls/hr Documented By: Admin: 11/10/24 14:34 Dose: 200 mls/hr Documented By: CHERYL Acetaminophen (Ofirmev) 1,000 mg in 100 mls @ 400 mls/hr IV Q8H PRN PRN Reason: Fever Stop: 11/13/24 14:40 Last Infusion: 11/12/24 21:29 Dose: Infused Documented By: Admin: 11/12/24 21:14 Dose: 400 mls/hr Documented By: Infusion: 11/12/24 13:44 Dose: Infused Documented By: Admin: 11/12/24 12:30 Dose: 400 mls/hr Documented By: Infusion: 11/11/24 22:29 Dose: Infused Documented By: riannab Admin: 11/11/24 21:44 Dose: 400 mls/hr Documented By: vipul Infusion: 11/11/24 11:49 Dose: Infused Documented By: KMMarkel Admin: 11/11/24 11:30 Dose: 400 mls/hr Documented By: Infusion: 11/11/24 00:11 Dose: Infused Documented By: riannab Admin: 11/10/24 23:38 Dose: 400 mls/hr Documented By: vipul Infusion: 11/10/24 15:13 Dose: Infused Documented By: Admin: 11/10/24 14:51 Dose: 400 mls/hr Documented By: CHERYL Piperacillin Sod/Tazobactam Sod (Zosyn) 4.5 gm in 100 mls @ 25 mls/hr IV Q8H SAHIL; Protocol Stop: 11/12/24 21:59 Last Infusion: 11/12/24 10:27 Dose: Infused Documented By: Admin: 11/12/24 05:31 Dose: 25 mls/hr Documented By: vipul Infusion: 11/12/24 02:16 Dose: Infused Documented By: vipul Admin: 11/11/24 21:44 Dose: 25 mls/hr Documented By: vipul Infusion: 11/11/24 17:34 Dose: Infused Documented By: Admin: 11/11/24 13:32 Dose: 25 mls/hr Documented By: Infusion: 11/11/24 10:06 Dose: Infused Documented By: Admin: 11/11/24 05:40 Dose: 25 mls/hr Documented By: vipul Infusion: 11/11/24 02:33 Dose: Infused Documented By: vipul Admin: 11/10/24 22:20 Dose: 25 mls/hr Documented By: vipul Lactated Ringer's (Lr) 1,000 mls @ 999 mls/hr IV .Q1H1M ONE Stop: 11/10/24 17:46 Last Infusion: 11/10/24 18:22 Dose: Infused Documented By: Admin: 11/10/24 17:09 Dose: 999 mls/hr Documented By: CHERYL Lactated Ringer's (Lr) 1,000 mls @ 125 mls/hr IV .Q8H SAHIL Stop: 11/13/24 16:59 Last Infusion: 11/12/24 13:45 Dose: Infused Documented By: Infusion: 11/11/24 00:11 Dose: 0 mls/hr Documented By: vipul Admin: 11/10/24 18:23 Dose: 125 mls/hr Documented By: HCERYL Vancomycin HCl 1,500 mg/ (Sodium Chloride) 530 mls @ 200 mls/hr IV NOW ONE Stop: 11/10/24 19:30 Last Infusion: 11/10/24 22:45 Dose: Infused Documented By: vipul Admin: 11/10/24 18:28 Dose: 200 mls/hr Documented By: CHERYL Vancomycin HCl 1,500 mg/ (Sodium Chloride) 530 mls @ 200 mls/hr IV Q24H SAHIL Stop: 11/13/24 03:59 Last Infusion: 11/12/24 05:57 Dose: Infused Documented By: vipul Admin: 11/12/24 03:01 Dose: 200 mls/hr Documented By: vpiul Infusion: 11/11/24 06:44 Dose: Infused Documented By: vipul Admin: 11/11/24 03:47 Dose: 200 mls/hr Documented By: vipul Ioversol (Optiray 320 100ml) 94 ml IV ONCE ONE Stop: 11/10/24 06:35 Last Admin: 11/10/24 06:35 Dose: 94 ml Documented By: OMAR Lidocaine HCl (Lidocaine 2% Jelly 5 Ml Tube) 5 ml EXT NOW ONE Stop: 11/10/24 09:39 Last Admin: 11/10/24 10:19 Dose: 5 ml Documented By: CARRIE Ondansetron HCl (Ondansetron Inj 2 Mg/Ml 2 Ml Vial) 4 mg IV NOW STA Stop: 11/10/24 05:24 Last Admin: 11/10/24 05:40 Dose: 4 mg Documented By: DON Potassium Chloride (Potassium Chloride Crtab 20 Meq Tabcr) 40 meq PO NOW STA Stop: 11/10/24 09:39 Last Admin: 11/10/24 10:18 Dose: 40 meq Documented By: CARRIE Imaging Data Radiologist's Impression: Abdomen/Pelvis CT 11/10/24 06:15 EXAM: CT abd pelvis IV con only CLINICAL HISTORY: grosss hematuria TECHNIQUE: Contiguous axial images were obtained from the level of the diaphragm to the pubic symphysis with intravenous contrast. Coronal and sagittal reconstructions were likewise performed and indicated to increase the sensitivity for detecting clinically relevant pathology. If IV contrast material had not been administered, the likelihood of detecting abnormalities relevant to the patient's condition would have been substantially decreased. The CT scan was performed according to ALARA (as low as reasonably achievable). COMPARISON: 19:34:13 [employer]KERCHIEF [employer]. FINDINGS: Right diaphragmatic eventration. Few subsegmental areas of atelectasis are noted involving the bilateral lung bases. Severe levoscoliosis is noted involving the lumbar spine. The liver is normal in size and attenuation. No focal liver lesions are seen. There is no intrahepatic or extrahepatic biliary ductal dilatation. Hepatic vasculature is patent. The gallbladder is present. The spleen, pancreas, and adrenal glands are unremarkable. Multiple calcified splenic granulomas are present. The kidneys are normal in size and attenuation. About 8.5 mm sized calculus is noted involving the right renal pelvis. The right kidney also shows non-obstructing calculi measuring 2 mm in the mid-calyx and 9 mm in the lower calyx. About 15 mm sized calculus is noted involving the left renal pelvis. Few simple cortical cysts are noted in both kidneys?the largest measures about 9 cm on the right and 5 cm on the left side. The ureters are normal in caliber, and no ureteral calculi are seen. The bladder is collapsed with the Ibrahim's bulb seen in situ. A heterogeneously hyperdense area is noted within the bladder lumen adjacent to the Ibrahim's bulb; ultrasound correlation is suggested. Pelvic viscera are unremarkable. No focal or diffuse bowel wall thickening or evidence of bowel obstruction is identified. No imaging evidence of appendicitis. Abdominal and pelvic vasculature is patent. No adenopathy or fluid collections are seen. No aggressive appearing osseous lesions are identified. Fat-containing umbilical hernia. Degenerative changes are noted in the visualized spine in the form of marginal osteophytes, endplate irregularities and sclerosis, reduction in the disc height, small posterior disc bulges, vacuum phenomenon and facet arthropathy changes, predominantly at lower lumbar levels. Severe levoscoliosis of thoracolumbar spine IMPRESSION: 1. About 8.5 mm sized calculus is noted involving the right renal pelvis. Stable. 2. The right kidney also shows non-obstructing calculi of size 2 mm in the mid-calyx and 9 mm in the lower calyx. Stable. 3. About 15 mm sized calculus is noted involving the left renal pelvis. Stable. 4. Few simple cortical cysts are noted in both kidneys. Stable. 5. The bladder is collapsed with the Ibrahim's bulb seen in situ. A heterogeneously hyperdense area is noted within the bladder lumen adjacent to the Ibrahim's bulb, which could be a blood clot; ultrasound correlation is suggested. New finding. 6. Multiple calcified splenic granulomas. Stable. 7. Spondylodegenerative changes with severe levoscoliosis of thoracolumbar spine.stable 8. No other new interval abnormality since prior study. Electronically signed by Jaime Humphrey 11-10-2024 08:18 AM Discharge Plan Visit Data Chief Complaint: Hematuria Stated Complaint: Groin Pain, Blood in Catheter, Recent Surgery ED Provider: Brennan Mas Discharge Problem: Gross hematuria, Hypokalemia, Nephrolithiasis Patient Disposition: Admitted As Inpatient Condition: Fair Discharge Instructions Interventions: ED Discharge Assessment Last Done: 11/10/24 12:26
[2024-11-10] MEDS: POTASSIUM CHLORIDE CRTAB 20 MEQ TABCR PO STA (10:18)
[2024-11-10] MEDS: LIDOCAINE 2% JELLY 5 ML TUBE EXT ONE (10:19)
--- NOTE | 2024-11-10 10:54 | History & Physical Report ---
Date of Service November 10, 2024 Assessment & Plan (1) BPH NOS w ur obs/LUTS: (2) Gross hematuria: (3) Disabling essential tremor: (4) Fracture of left tenth rib: (5) Abnormal urinalysis: (6) Leukocytosis: (7) (HFpEF) heart failure with preserved ejection fraction: (8) Ambulatory dysfunction: (9) Chronic respiratory failure: (10) Kidney stones: (11) COPD (chronic obstructive pulmonary disease): (12) Hypertension: (13) Hyperlipidemia: Plan Mr. Starks with PMH of BPH with LUTS, essential tremor, tenth rib fracture, fall, Ambulatory dysfunction, Heart failure with pre EF, Chronic respiratory failure, Dizziness, Kidney stones,CHRF, COPD, O2 dependance, Depression, Spinal stenosis presented to ED with h/o fever, confusion after urologic procedure, done 1 day back. Work up in ED revealed elevated WBCs and multiple stones in BL Kidneys with normal creatinine. He is admitted for observation and possible urinary tract infection. Urinary tract infection - Fever with recent uro-procedure - High grade fever after admission - WBCs elevated: 12.6 k - UA: Nitrite neg, Simona E postive, significant WBCs. - Urine CS: pending. - Urology on board: appreciate rec Rosalva for h/o ceftriaxone resistant bug in past. Continue catheter. - Repeat CBC, CMP AM. Gross Hematuria - Recent Uro- procedure. - HD stable - Per Urology, expected following Uro-Lift surgery (11/09) - Continue ramos's irrigation. Nephrolithiasis - Extensive BL Nephrolithiasis - Creatinine: WNL - Per Uro, hematuria less likely d/t stones, rather d/t procedure. - No active intervention planned Chronic hypoxic respiratory failure - Remains on home O2. - Will monitor SpO2. - CXR ordered Heart failure with PrEF: - No HF symptom at current. - Echo( 10/13): EF 50-55% - Continue home meds. Ambulatory dysfunction - Baseline Fx: uses walker - Living in Assisted living. - Fall precaution - OT/PT eval HTN- stable, continue home med Hyperlipidemia: Stable, continue home med Hypothyroidism: Stable, continue home 100, TSH 2.2 Coronary artery disease HLD S/P stent Continue Plavix, statin, propranolol Essential tremors: Continue on propranolol BPH:Continue on dutasteride and tamsulosin Mood disorder:Continue duloxetine, citalopram Dispo: Med/ Surg Tele DVT prophylaxis: SCDs Code Status: Full History of Present Illness Primary Care Provider: Marvin White, DO Mr. Starks with PMH of BPH with LUTS, essential tremor, tenth rib fracture, fall, Ambulatory dysfunction, Heart failure with pre EF, Chronic respiratory failure, Dizziness, Kidney stones,CHRF, COPD, O2 dependance, Depression, Spinal stenosis presented to ED via EMS from [facility] after they found Fabian has developed fever and was appeared confused. Patient is a poor historian, not aware that he is in hospital. Called his daughter, listed as primary contact. She gives history via phone. She said that urology procedure was done yesterday in [facility] by Dr. Conway, she is not sure what suergery was done but related to urinary obstruction. Then after she got call last night that Fabian developed fever and pos- surgery instruction was mentioning he should visit ED in case of fever so they brought him here. Daughter mentions that he was as baseline until last night when she talked to him, but does get confused when he gets sick or usually in fever. Patient endorsed that he is feeling cold, has some pain in his left belly towards flank, does not know where is he now but kept on repeating I feel cold, I need some warm blankets. He shared he has daughter and son nearby. Allergies Allergy/AdvReac Type Severity Reaction Status Date / Time tramadol AdvReac Intermediate Hallucinati Verified 03/12/23 02:38 ng grapefruit AdvReac Unknown WAS TOLD Verified 03/12/23 02:38 NOT TO TAKE BECAUSE OF CHOLESTROL PILL. Home Medications Medication Instructions Recorded Confirmed Type docusate sodium 100 mg capsule 100 mg PO QPM 05/28/24 11/10/24 History albuterol sulfate 90 mcg/actuation 2 inh inhalation Q2H PRN Wheezing 07/04/24 11/10/24 Rx aerosol inhaler #8.5 grams furosemide 40 mg tablet 40 mg PO BID #60 tabs 07/04/24 11/10/24 Rx ipratropium 20 mcg-albuterol 100 1 puff inhalation QID #4 grams 07/04/24 11/10/24 Rx mcg/actuation mist for inhalation (Combivent Respimat) levothyroxine 100 mcg tablet 100 mcg PO DAILYBB #30 tabs 07/04/24 11/10/24 Rx (Synthroid) montelukast 10 mg tablet 10 mg PO QAM #30 tabs 07/04/24 11/10/24 Rx (Singulair) pantoprazole 20 mg tablet,delayed 20 mg PO QAM #30 tabs 07/04/24 11/10/24 Rx release primidone 50 mg tablet 25 mg (1/2 x 50 mg) PO DAILY PRN 07/04/24 11/10/24 Rx Tremor #30 tabs primidone 50 mg tablet 50 mg PO HS #30 tabs 07/04/24 11/10/24 Rx propranolol 20 mg tablet 20 mg PO TID #90 tabs 07/04/24 11/10/24 Rx rosuvastatin 5 mg tablet 5 mg PO QAM #30 tabs 07/04/24 11/10/24 Rx spironolactone 25 mg tablet 12.5 mg (1/2 x 25 mg) PO MOWEFR 07/04/24 11/10/24 Rx #30 tabs tamsulosin 0.4 mg capsule 0.4 mg PO HS #30 caps 07/04/24 11/10/24 Rx acetaminophen 500 mg tablet 1,000 mg PO DAILY PRN Pain/Fever 11/10/24 11/10/24 History acetaminophen 500 mg tablet 1,000 mg PO BID Chronic pain 11/10/24 11/10/24 History (Tylenol Extra Strength) allopurinol 100 mg tablet 200 mg PO QAM 11/10/24 11/10/24 History aspirin 81 mg chewable tablet 81 mg PO QAM 11/10/24 11/10/24 History citalopram 20 mg tablet 20 mg PO QAM 11/10/24 11/10/24 History clopidogrel 75 mg tablet (Plavix) 0 mg PO DAILY 11/10/24 11/10/24 History diclofenac sodium 1 % topical gel 2 g topical TID PRN Pain 11/10/24 11/10/24 History duloxetine 60 mg capsule,delayed 60 mg PO QAM 11/10/24 11/10/24 History release finasteride 5 mg tablet 5 mg PO QAM 11/10/24 11/10/24 History magnesium hydroxide 400 mg/5 mL 2,400 mg PO DAILY PRN Constipation 11/10/24 11/10/24 History oral suspension (Milk of Magnesia) meclizine 12.5 mg tablet 12.5 mg PO Q8H PRN Dizziness Or 11/10/24 11/10/24 History Vertigo oxybutynin chloride 10 mg 10 mg PO QAM 11/10/24 11/10/24 History tablet,extended release 24 hr polyethylene glycol 3350 17 17 g PO QAM 11/10/24 11/10/24 History gram/dose oral powder (Miralax) sodium chloride 0.65 % nasal spray 2 spray intranasal QID 11/10/24 11/10/24 History aerosol (Deep Sea Nasal) sulfamethoxazole 800 1 tab PO BID 11/10/24 11/10/24 History mg-trimethoprim 160 mg tablet (Bactrim DS) Past Med/Surg History Problem List (Updated 11/10/24 @ 12:01 by Fawad Rey MD) BPH NOS w ur obs/LUTS Gross hematuria Disabling essential tremor Fracture of left tenth rib Abnormal urinalysis Leukocytosis (Acute) Fall (Acute) (HFpEF) heart failure with preserved ejection fraction BPH (benign prostatic hyperplasia) Ambulatory dysfunction (Acute) Weakness (Acute) Back pain Chronic respiratory failure (Acute) Dizziness (Acute) Fall (Acute) Kidney stones ONE PRESENT/NO PROBLEMS WITH Hematuria Ambulatory dysfunction (Acute) Chronic hypoxic respiratory failure, on home oxygen therapy (Acute) Fall (Acute) Dizziness (Acute) Leukocytosis (Acute) Ambulatory dysfunction (Acute) Generalized weakness (Acute) COPD (chronic obstructive pulmonary disease) (Chronic) Physical deconditioning (Acute) Dependence on supplemental oxygen (Acute) Fall Elevated hemidiaphragm Pneumonia Scoliosis (Acute) Right heart failure Hypokalemia Acute and chronic respiratory failure Chronic obstructive pulmonary disease Depression Hyperlipidemia Hypertension Shortness of breath (Acute) Pulmonary edema (Acute) Acute exacerbation of CHF (congestive heart failure) (Acute) Encounter for pre-operative examination Spinal stenosis (Chronic) Encounter for pre-operative examination Acute respiratory failure (Acute) Shortness of breath Leukocytosis Aspiration into airway Medical History Mood disorder Bilateral shoulder pain Fall Acute on chronic respiratory failure with hypoxemia Acute and chronic respiratory failure with hypercapnia Pulmonary embolism COVID-19 Choking REASON FOR UPCOMING PROCEDURE PER PT Ankle swelling PT PLANS TO DISCUSS WITH PT REPORTS DR HAD HIM STOP FLUID PILL AND NOT SURE WHY Infected dental caries Subperiosteal abscess of jaw Acute periodontal abscess Pain, dental Generalized muscle weakness Lower urinary tract symptoms (LUTS) Hypoxia DVT prophylaxis Chronic right-sided heart failure Fall HX, NOT RECENTLY Cervical spine fracture LAST SUMMER NO LIMITATIONS SOB (shortness of breath) on exertion with wheezing Scoliosis Chronic back pain GERD (gastroesophageal reflux disease) Hypothyroidism On anticoagulant therapy plavix daily 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 Myocardial Infarction 2009 Sleep apnea uses 4 L N/C MOSTLY ALL THE TIME On home oxygen therapy 3-4 L CONTINUOUS MOSTLY, AND PRN PER PT COPD (chronic obstructive pulmonary disease) Dyslipidemia HTN (hypertension) Surgical History Hx of oral surgery (07/05/21) Multiple Teeth Extractions for Facial Infection - Sin Chacko DMD NO CURRENT INFECTION PER PT (PAT CALL 08/18/21) History of testicular surgery "sac full of blood in testicle drained at 26 yrs old" History of heart artery stent x1 2009--[facility] History of open reduction and internal fixation (ORIF) procedure left foot fx/pinky toe fx--hardware in place History of lithotripsy Hx of vasectomy Hx of right inguinal hernia repair History of colonoscopy History of esophagogastroduodenoscopy (EGD) History of wisdom tooth extraction History of tonsillectomy History of bilateral cataract extraction History of cardiac cath 2009 @ [facility] with 1 stent--follows with Dr. James Vickersed coronary artery "bare metal stent to LAD 2008" Family History Sister Family history of reaction to anesthesia nausea/vomiting Mother Family history of diabetes mellitus Social History Smoking Status: Former smoker Tobacco Type: Pipe Cigarettes Per Day: SMOKED PIPE/CIGAR AGE 21'S; Second Hand Exposure: No; Do You Dip or Chew Tobacco: No; Hx Alcohol Use: No Hx Substance Use: No Preferred Language: Malay Communication Ability: Effective Communication Tools: Other Visual Impairment: No Limitations Financial Services Officer Required: No Beliefs That Will Affect Care: None marital status: Current Living Situation: [facility] Current Living Situation Comment: [facility] How many Children do You have: 1 Feels Safe at Home: Yes Assistive Devices: Cane, Oxygen - Continuous and Walker Review of Systems Review of Systems: As per HPI Physical Exam Physical Exam: Constitutional: O2 via NC, Frail appearing, Confused, No acute distress, Pale looking, shivering in cold. HEENT: Atraumatic, Normocephalic, No conjunctival injection CVS: S1 S2, murmur +, Regular Rhythm, no LE edema Respiratory: BL decreased air entry with Prolonged VBS. Occasional wheezes, No rhonchi or crackles. No increased work of breathing GI: Soft, Nondistended, Nontender, Normal Bowel sounds + MSK: No gross deformities noted Skin: Warm, Dry, No rashes Neuro: Alert, Oriented to TPP, No Focal deficit. Psych: Mood and Affect congruent, Cooperative on exam Results & Data Results & Data Vital Signs (Past 12 Hours) Vital Signs Temp Pulse Pulse Resp BP BP Pulse Ox 11/10/24 09:16 36.8 C 11/10/24 09:00 62 15 125/70 93 11/10/24 07:00 62 20 127/68 94 11/10/24 06:30 65 18 125/68 92 11/10/24 06:00 64 16 129/76 97 11/10/24 05:36 94 11/10/24 05:26 37.1 C 69 20 124/72 95 11/10/24 05:24 67 O2 Del Method O2 Flow Rate 11/10/24 09:16 11/10/24 09:00 Nasal Cannula 3 11/10/24 07:00 Nasal Cannula 3 11/10/24 06:30 11/10/24 06:00 11/10/24 05:36 Nasal Cannula 3 11/10/24 05:26 3 11/10/24 05:24 Supervising Physician Co-Signing Physician Notes I personally examined the patient and verified all sanderson points of history and exam, discussed case, and agree with decision making with Dr Finn PGY 2 Patient with hematuria, and low grade fever after urological procedure yesterday by [facility] Urologist. Patient will be [facility]. Will place on zosyn. Later in the day, patient became more febrile, ordered cultures urine and blood. Expanded antibiotics to include MRSA. Consulted urology, will exchange catheter and place a 3 way, and bladder irrigate as patient is having significant hematuria. sepsis protocol started: IVF bolus ordered. This is a complicated case given recent intervention, fever, sepsis. Resident Activity Tracking Resident Involvement: Resident Care Provided Care Provided: Adult Hospital Medicine (6) Leukocytosis Leukocytosis type: unspecified Qualified Code(s): D72.829 - Elevated white blood cell count, unspecified (9) Chronic respiratory failure Respiratory failure complication: hypoxia Qualified Code(s): J96.11 - Chronic respiratory failure with hypoxia
--- NOTE | 2024-11-10 11:38 | Urology Consultation ---
Date of Consultation November 10, 2024 Assessment & Plan (1) Gross hematuria: (2) BPH NOS w ur obs/LUTS: Plan 84-year-old male currently admitted due to confusion and gross hematuria. Afebrile with stable vitals. Labs show a white blood cell count of 12.6, hemoglobin of 14, creatinine of 0.68 which appears to be at his baseline and a urinalysis that was positive for 3+ blood, 2+ leukocyte esterase, 6-10 WBCs, greater than 20 RBCs and no bacteria. CT scan of the abdomen pelvis was performed and independently reviewed. This shows an 8 mm right renal pelvis stone which is stable from her previous scan in May. This shows a 1.5 cm left renal pelvis stone which is stable since May as well. Bladder is decompressed with a catheter in place. After discussing with his daughter, I think it is prudent to treat this as a UTI following a UroLift although it is unclear as it does not sound like he had a true febrile episode at home and it is hard to determine his cognitive baseline. His recent UroLift procedure explains his hematuria and I recommend maintaining his Ibrahim catheter until he can go back and see his primary urologist I reviewed his cultures and given that the only positive result in our system was a resistant to ceftriaxone, would recommend starting something such as Zosyn empirically after getting a urine culture from his catheter No urologic intervention necessary. His kidney stones are stable from previous scans and I do not think need to be addressed at this time Urology to follow peripherally. Patient needs to see his primary urologist for follow-up of this postoperative issue History of Present Illness History of Present Illness 84-year-old male currently admitted due to confusion and gross hematuria. Afebrile with stable vitals. Labs show a white blood cell count of 12.6, hemoglobin of 14, creatinine of 0.68 which appears to be at his baseline and a urinalysis that was positive for 3+ blood, 2+ leukocyte esterase, 6-10 WBCs, greater than 20 RBCs and no bacteria. CT scan of the abdomen pelvis was performed and independently reviewed. This shows an 8 mm right renal pelvis stone which is stable from her previous scan in May. This shows a 1.5 cm left renal pelvis stone which is stable since May as well. Bladder is decompressed with a catheter in place. Patient was seen as a consult in June 2023 and as he was stable no intervention was necessary and outpatient follow-up was set up however the patient no-showed to the appointment. Patient is a poor historian but did mention having a procedure yesterday. I called his daughter and it turns out he had a UroLift by Dr. Man Gu yesterday. His paperwork that he was sent home with said that if he developed a fever he need to go to the hospital. His facility checked a temp which was 99.4 and then they sent him to the hospital. I am unclear exactly what his cognitive baseline is. Allergies Allergy/AdvReac Type Severity Reaction Status Date / Time tramadol AdvReac Intermediate Hallucinati Verified 03/12/23 02:38 ng grapefruit AdvReac Unknown WAS TOLD Verified 03/12/23 02:38 NOT TO TAKE BECAUSE OF CHOLESTROL PILL. Home Medications Medication Instructions Recorded Confirmed Type docusate sodium 100 mg capsule 100 mg PO QPM 05/28/24 11/10/24 History albuterol sulfate 90 mcg/actuation 2 inh inhalation Q2H PRN Wheezing 07/04/24 11/10/24 Rx aerosol inhaler #8.5 grams furosemide 40 mg tablet 40 mg PO BID #60 tabs 07/04/24 11/10/24 Rx ipratropium 20 mcg-albuterol 100 1 puff inhalation QID #4 grams 07/04/24 11/10/24 Rx mcg/actuation mist for inhalation (Combivent Respimat) levothyroxine 100 mcg tablet 100 mcg PO DAILYBB #30 tabs 07/04/24 11/10/24 Rx (Synthroid) montelukast 10 mg tablet 10 mg PO QAM #30 tabs 07/04/24 11/10/24 Rx (Singulair) pantoprazole 20 mg tablet,delayed 20 mg PO QAM #30 tabs 07/04/24 11/10/24 Rx release primidone 50 mg tablet 25 mg (1/2 x 50 mg) PO DAILY PRN 07/04/24 11/10/24 Rx Tremor #30 tabs primidone 50 mg tablet 50 mg PO HS #30 tabs 07/04/24 11/10/24 Rx propranolol 20 mg tablet 20 mg PO TID #90 tabs 07/04/24 11/10/24 Rx rosuvastatin 5 mg tablet 5 mg PO QAM #30 tabs 07/04/24 11/10/24 Rx spironolactone 25 mg tablet 12.5 mg (1/2 x 25 mg) PO MOWEFR 07/04/24 11/10/24 Rx #30 tabs tamsulosin 0.4 mg capsule 0.4 mg PO HS #30 caps 07/04/24 11/10/24 Rx acetaminophen 500 mg tablet 1,000 mg PO DAILY PRN Pain/Fever 11/10/24 11/10/24 History acetaminophen 500 mg tablet 1,000 mg PO BID Chronic pain 11/10/24 11/10/24 History (Tylenol Extra Strength) allopurinol 100 mg tablet 200 mg PO QAM 11/10/24 11/10/24 History aspirin 81 mg chewable tablet 81 mg PO QAM 11/10/24 11/10/24 History citalopram 20 mg tablet 20 mg PO QAM 11/10/24 11/10/24 History clopidogrel 75 mg tablet (Plavix) 0 mg PO DAILY 11/10/24 11/10/24 History diclofenac sodium 1 % topical gel 2 g topical TID PRN Pain 11/10/24 11/10/24 History duloxetine 60 mg capsule,delayed 60 mg PO QAM 11/10/24 11/10/24 History release finasteride 5 mg tablet 5 mg PO QAM 11/10/24 11/10/24 History magnesium hydroxide 400 mg/5 mL 2,400 mg PO DAILY PRN Constipation 11/10/24 11/10/24 History oral suspension (Milk of Magnesia) meclizine 12.5 mg tablet 12.5 mg PO Q8H PRN Dizziness Or 11/10/24 11/10/24 History Vertigo oxybutynin chloride 10 mg 10 mg PO QAM 11/10/24 11/10/24 History tablet,extended release 24 hr polyethylene glycol 3350 17 17 g PO QAM 11/10/24 11/10/24 History gram/dose oral powder (Miralax) sodium chloride 0.65 % nasal spray 2 spray intranasal QID 11/10/24 11/10/24 History aerosol (Deep Sea Nasal) sulfamethoxazole 800 1 tab PO BID 11/10/24 11/10/24 History mg-trimethoprim 160 mg tablet (Bactrim DS) Patient History Medical History Mood disorder Bilateral shoulder pain Fall Acute on chronic respiratory failure with hypoxemia Acute and chronic respiratory failure with hypercapnia Pulmonary embolism COVID-19 Choking REASON FOR UPCOMING PROCEDURE PER PT Ankle swelling PT PLANS TO DISCUSS WITH DR PT REPORTS DR HAD HIM STOP FLUID PILL AND NOT SURE WHY Infected dental caries Subperiosteal abscess of jaw Acute periodontal abscess Pain, dental Generalized muscle weakness Lower urinary tract symptoms (LUTS) Hypoxia DVT prophylaxis Chronic right-sided heart failure Fall HX, NOT RECENTLY Cervical spine fracture LAST SUMMER NO LIMITATIONS SOB (shortness of breath) on exertion with wheezing Scoliosis Chronic back pain GERD (gastroesophageal reflux disease) Hypothyroidism On anticoagulant therapy plavix daily 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 Myocardial Infarction 2009 Sleep apnea uses 4 L N/C MOSTLY ALL THE TIME On home oxygen therapy 3-4 L CONTINUOUS MOSTLY, AND PRN PER PT COPD (chronic obstructive pulmonary disease) Dyslipidemia HTN (hypertension) Surgical History Hx of oral surgery (07/05/21) Multiple Teeth Extractions for Facial Infection - Sin Chacko DMD NO CURRENT INFECTION PER PT (PAT CALL 08/18/21) History of testicular surgery "sac full of blood in testicle drained at 26 yrs old" History of heart artery stent x1 2009[place] [place] History of open reduction and internal fixation (ORIF) procedure left foot fx/pinky toe fx--hardware in place History of lithotripsy Hx of vasectomy Hx of right inguinal hernia repair History of colonoscopy History of esophagogastroduodenoscopy (EGD) History of wisdom tooth extraction History of tonsillectomy History of bilateral cataract extraction History of cardiac cath 2009 @ [facility] [place] with 1 stent--follows with Dr. 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 Required: No Beliefs That Will Affect Care: None marital status: Current Living Situation: Alone Current Living Situation Comment: house alone with HH nurse visits How many Children do You have: 1 Feels Safe at Home: Yes Assistive Devices: Cane and Walker Physical Exam Physical Exam: General: Alert and oriented, no acute distress HEENT: Normocephalic, mucous membranes moist Pulmonary: Nonlabored respirations Abdomen: Nondistended : Ibrahim catheter draining thin red urine Extremities: Moves all 4 spontaneously Neuro: No gross deficits Skin: Warm, dry, no rashes noted Results & Data Vital Signs (Past 12 Hours) Vital Signs Temp Pulse Pulse Resp BP BP Pulse Ox 11/10/24 11:09 64 17 95 11/10/24 11:07 66 18 128/77 93 11/10/24 09:16 36.8 C 11/10/24 09:00 62 15 125/70 93 11/10/24 07:00 62 20 127/68 94 11/10/24 06:30 65 18 125/68 92 11/10/24 06:00 64 16 129/76 97 11/10/24 05:36 94 11/10/24 05:26 37.1 C 69 20 124/72 95 11/10/24 05:24 67 O2 Del Method O2 Flow Rate 11/10/24 11:09 Nasal Cannula 3 11/10/24 11:07 Nasal Cannula 3 11/10/24 09:16 11/10/24 09:00 Nasal Cannula 3 11/10/24 07:00 Nasal Cannula 3 11/10/24 06:30 11/10/24 06:00 11/10/24 05:36 Nasal Cannula 3 11/10/24 05:26 3 11/10/24 05:24 PG Care Time/CCT Total # of Minutes Spent Total Time Spent with Patient: Total time spent is greater than 50% in coordination of care (as documented) at patient's floor/unit and/or counseling patient: Coding Level of Care Code 17533 INT INP/OBS CARE 2/55MIN Diagnoses Gross hematuria R31.0 BPH NOS w ur obs/LUTS N40.1
--- NOTE | 2024-11-10 12:20 | Electrocardiogram Report ---
Test Reason : Blood Pressure : */* mmHG Vent. Rate : 68 BPM Atrial Rate : 68 BPM P-R Int : 170 ms QRS Dur : 90 ms QT Int : 432 ms P-R-T Axes : 10 56 67 degrees QTcB Int : 459 ms Normal sinus rhythm Septal infarct (cited on or before 08-Dec-2022) Abnormal ECG When compared with ECG of 27-Jun-2024 12:43, Premature ventricular complexes are no longer Present Confirmed by Dorothea Mosquera (Clif) on 11/10/2024 12:20:23 PM Referred By: REFERRED SELF Confirmed By: Dorothea Mosquera
[2024-11-10] MEDS ORDERED: ALBUTEROL HFA 8 GM INHALER INH PRN (13:00)
[2024-11-10] MEDS ORDERED: ALUMINUM/MAGNESIUM SUSP 30 ML UDC PO PRN (13:00)
[2024-11-10] MEDS ORDERED: IPRATROPIUM BROMIDE/ALBUTEROL respimat INH INH SCH (13:00)
[2024-11-10] MEDS ORDERED: POLYETHYLENE (MIRALAX) 17 GM PACK PO PRN (13:00)
[2024-11-10] MEDS ORDERED: PRIMIDONE 50 MG TAB PO PRN (13:00)
[2024-11-10] MEDS ORDERED: ACETAMINOPHEN 500 MG TAB PO PRN (13:00)
[2024-11-10] MEDS ORDERED: MECLIZINE 12.5 MG TAB PO PRN (13:00)
[2024-11-10] MEDS: ACETAMINOPHEN 325 MG TAB PO PRN (14:06)
[2024-11-10] MEDS: CITALOPRAM 20 MG TAB PO SCH (14:29)
[2024-11-10] MEDS: FUROSEMIDE 40 MG TAB PO SCH (14:29)
[2024-11-10] MEDS: SODIUM CHLORIDE 0.65% NA SOLN 45 ML (OCEAN) SCH (14:29)
[2024-11-10] MEDS: PROPRANOLOL HCL 20 MG TAB PO SCH (14:30)
[2024-11-10] MEDS: 4.5GM X1 IV STA (14:34)
[2024-11-10] MEDS: ACETAMINOPHEN 1,000 MG/100 ML VIAL IV PRN (14:51)
[2024-11-10] MEDS: Albuterol HFA 8 GM Inhaler (Combivent Respimat P&T Subs) INH SCH (15:48)
[2024-11-10] MEDS: Ipratropium HFA Inhaler (Combivent Respimat P&T Subs) INH SCH (15:48)
[2024-11-10] MEDS ORDERED: VANCOMYCIN CONSULT ACTIVE PRN (16:52)
[2024-11-10] MEDS: LACTATED RINGER'S 1,000 ML IV ONE (17:09)
--- NOTE | 2024-11-10 17:31 | Communication Note ---
Date of Service: November 10, 2024 RN informed at 4:24 that patient is high risk in EWS and tachycardic with BP on lower side, RR 30, sats with O2 at 4l. Went to bedside, patient's mental status is still confused, looks dehydrated, feverish, was breathing fast but not labored. Gross hematuria noted on ramos, clots noted around catheter at urethral meatus, still some bloody urine draining. Patient condition indicates he is going into uro-sepsis despite being on Zosyn, hence adding vancomycin for him. Blood CS, chest x-ray ordered. Vital (BP) Q30 min, patient is in tele monitor, A sked Bedside RN to inform MD WILLIS in case of low BP. Keep Tylenol 1000 Q8 for fever, continue cold fomentation. Switch ramos [address] for irrigation. Close monitor
--- NOTE | 2024-11-10 17:35 | XRay Report ---
HISTORY: Evaluation for pneumonia. Shortness of breath. TECHNIQUE: Portable AP chest radiograph COMPARISON: Chest radiograph dated 05/28/2024. FINDINGS: Elevated right hemidiaphragm. Right greater than left bibasilar airspace opacities.No pneumothorax.Normal heart size. Left-sided aortic arch. Midline trachea. Severe thoracic Dextroscoliosis. Degenerative changes of the shoulders. The included upper abdomen is unremarkable. IMPRESSION: * Elevated right hemidiaphragm. Similar nonspecific right greater than left basilar airspace opacities favoring atelectasis. Pneumonia is not excluded. Electronically signed by Bebo Jones 11-10-2024 5:34 PM
[2024-11-10] MEDS: LACTATED RINGER'S 1,000 ML IV SCH (18:23)
[2024-11-10] MEDS: VANCOMYCIN HCL 1,500 MG in SODIUM CHLORIDE 0.9% 500 ML IV ONE (18:28)
[2024-11-10] MEDS ORDERED: PIPERACILLIN/TAZOBACTAM 4.5 GM/100 ML BAG IV SCH (20:00)
[2024-11-10] MEDS: TAMSULOSIN HCL 0.4 MG CAP PO SCH (20:28)
[2024-11-10] MEDS: DOCUSATE SODIUM 100 MG CAP PO SCH (20:28)
[2024-11-10] MEDS: REMOVE LIDODERM PATCH SCH (20:31)
[2024-11-10] MEDS: PRIMIDONE 50 MG TAB PO SCH (20:33)
[2024-11-10] MEDS ORDERED: SULFAMETHOXAZOLE/TRIMETHOPRIM DS 800/160MG TAB PO SCH (21:00)
[2024-11-10] MEDS: PIPERACILLIN/TAZOBACTAM 4.5 GM/100 ML BAG IV SCH (22:20)
[2024-11-10] MEDS ORDERED: ALBUTEROL 0.083% NEBU SOLN 3 ML VIAL NEB STA (23:56)
[2024-11-11] MEDS: ALBUTEROL 0.083% NEBU SOLN 3 ML VIAL NEB SCH (02:11)
[2024-11-11] MEDS: ALBUTEROL 0.083% NEBU SOLN 3 ML VIAL ONE (03:09)
[2024-11-11] MEDS: VANCOMYCIN HCL 1,500 MG in SODIUM CHLORIDE 0.9% 500 ML IV SCH (03:47)
[2024-11-11] MEDS: LEVOTHYROXINE SODIUM 100 MCG TABLET PO SCH (05:42)
[2024-11-11 06:28] LABS: Hematocrit (blood only) 38.4 % (42.0-52.0); Hemoglobin 12.2 g/dl (14.0-18.0); Immature Granulocytes # (auto) 0.11 K/uL (0.01-0.20); Immature Granulocytes % (auto) 1.6 %; Mean Corpuscular Hemoglobin 30.4 pg (25.0-34.0); Mean Corpuscular Volume 95.8 fL (80.0-100.0); Platelet Count 124 K/uL (130-400); RDW Standard Deviation 51.2 fL (36.4-46.3); Red Blood Count 4.01 M/uL (4.70-6.10); White Blood Count 7.02 K/ul (4.8-10.8)
[2024-11-11 07:07] LABS: Alanine Aminotransferase 5.0 U/L (7-52); Albumin Globulin Ratio 1.5 (0.9-2); Albumin Level 3.7 gm/dl (3.4-5.0); Alkaline Phosphatase 75.0 U/L (34-104); Anion Gap 5.0 (3-11); Bilirubin,Total 0.6 mg/dl (0.2-1.0); Blood Urea Nitrogen 11.0 mg/dl (6-23); Calcium 8.8 mg/dl (8.6-10.3); Carbon Dioxide 30.0 mmol/L (21-32); Chloride 102.0 mmol/L (98-107); Creatinine Clr Calc Pharmacy 58.7 ml/min; Globulin 2.4 gm/dl (2.5-4.0); Glucose 121.0 mg/dl (70-99(Fasting)); Potassium 4.3 mmol/L (3.5-5.1); Sodium 137.0 mmol/L (136-145); Total Protein 6.1 gm/dl (6.0-8.3)
--- NOTE | 2024-11-11 08:12 | Urology Progress Note ---
Date of Service November 11, 2024 Assessment & Plan (1) Gross hematuria: (2) BPH NOS w ur obs/LUTS: Plan 84-year-old male currently admitted due to confusion and gross hematuria. Ibrahim catheter was swapped out to a 22 Romansh three-way and he was started on CBI on 11/10/2024. CBI clamped. Discussed with nursing and they can turn back on if urine gets significantly bloody. Can hand irrigate if necessary. Continue broad-spectrum antibiotics and follow-up cultures Urology to follow. Recommend patient be discharged with catheter because unclear how long outside urologist would want this left in after surgery so they can make that determination as an outpatient Admission and Anticipated Discharge Date Admission Date: November 10, 2024 Subjective No acute issues overnight. Afebrile with stable vitals. Labs today show leukocytosis of 7, previously 12.6. Creatinine stable at 0.83. Cultures are pending. Patient resting comfortably. Nursing reported no issues overnight and they titrated CBI down to a slow drip. Physical Exam Physical Exam: General: Alert and oriented, no acute distress HEENT: Normocephalic, mucous membranes moist Pulmonary: Nonlabored respirations Abdomen: Nondistended : 22 Romansh three-way catheter with light pink urine on very slow drip Extremities: Moves all 4 spontaneously Neuro: No gross deficits Skin: Warm, dry, no rashes noted Results & Data Vital Signs (Past 12 Hours) Vital Signs Temp Pulse Pulse Resp BP BP Pulse Ox 11/11/24 08:01 37.3 C 62 19 96/62 L 93 11/11/24 07:53 63 18 93 11/11/24 07:19 67 11/11/24 04:44 37.0 C 62 18 102/63 94 11/11/24 02:30 77 11/11/24 02:16 37.5 C 63 18 98/60 L 97 11/11/24 02:12 64 17 94 11/11/24 01:44 11/11/24 01:41 36.5 C 66 18 112/71 95 11/10/24 23:00 39.2 C H 82 20 108/68 90 O2 Del Method O2 Flow Rate 11/11/24 08:01 Nasal Cannula 5 11/11/24 07:53 Nasal Cannula 5 11/11/24 07:19 11/11/24 04:44 Nasal Cannula 5 11/11/24 02:30 11/11/24 02:16 Oxymask 5 11/11/24 02:12 Nasal Cannula 5 11/11/24 01:44 Nasal Cannula 5 11/11/24 01:41 Nasal Cannula 5 11/10/24 23:00 Nasal Cannula 5 PG Care Time/CCT Total # of Minutes Spent Total Time Spent with Patient: Total time spent is greater than 50% in coordination of care (as documented) at patient's floor/unit and/or counseling patient: Coding Level of Care Code 79501 SUB INP/OBS CARE 2/35MIN Diagnoses Gross hematuria R31.0 BPH NOS w ur obs/LUTS N40.1
[2024-11-11] MEDS: OXYBUTYNIN CHLORIDE XL 5 MG TABCR PO SCH (09:33)
[2024-11-11] MEDS: ROSUVASTATIN CALCIUM 5 MG TAB PO SCH (09:33)
[2024-11-11] MEDS: LIDOCAINE 5% 1 PATCH TD SCH (09:33)
[2024-11-11] MEDS: FINASTERIDE 5 MG TAB PO SCH (09:35)
[2024-11-11] MEDS: POLYETHYLENE (MIRALAX) 17 GM PACK PO SCH (09:43)
--- NOTE | 2024-11-11 13:32 | Hospitalist Progress Note ---
Date of Service November 11, 2024 Assessment & Plan (1) BPH NOS w ur obs/LUTS: (2) Gross hematuria: (3) Disabling essential tremor: (4) Fracture of left tenth rib: (5) Abnormal urinalysis: (6) Leukocytosis: (7) (HFpEF) heart failure with preserved ejection fraction: (8) Ambulatory dysfunction: (9) Chronic respiratory failure: (10) Kidney stones: (11) COPD (chronic obstructive pulmonary disease): (12) Hypertension: (13) Hyperlipidemia: Plan Mr. Starks with PMH of BPH with LUTS, essential tremor, tenth rib fracture, fall, Ambulatory dysfunction, Heart failure with pre EF, Chronic respiratory failure, Dizziness, Kidney stones,CHRF, COPD, O2 dependance, Depression, Spinal stenosis presented to ED with h/o fever, confusion after urologic procedure, done 1 day back. Work up in ED revealed elevated WBCs and multiple stones in BL Kidneys with normal creatinine. Post admission patient rapidly progressed to SIRS despite IV Zosyn. Admitted for Urosepsis management. Urosepsis - Presented with Fever with recent uro-procedure. - Decompensated very rapid on floor-- T max 39, WBCs 12.6, confusion, Low BP, Met SIRS criteria - Managed in line of Urosepsis: Zosyn+ Vanc, IV fluids( Bolus+ maintenance) - Lactate: Unremarkable - WBCs trending down. 7.02 this AM. - UA: Nitrite neg, Simona E postive, significant WBCs. - Urine CS: pending. - Urology on board: appreciate rec Continue Zosyn+ Vanc Continue catheter. - Repeat CBC, CMP AM. Gross Hematuria - Recent Uro- procedure( 11/09) - No Blood thinner use - 3 way continuous ramos's irrigation done last night. - Urine looks clean this AM; Continue intermittent irrigation. Nephrolithiasis - Extensive BL Nephrolithiasis - Creatinine: WNL - Per Uro, hematuria less likely d/t stones, rather d/t procedure. - No active intervention planned Chronic hypoxic respiratory failure - Remains on home O2. - Will monitor SpO2. - CXR: elevated RT HemiDiaph+ Basilar Atelectasis. - Duoneb during stay. Hold home albuterol. Heart failure with PrEF: - No HF symptom at current. - Echo( 10/13): EF 50-55% - Continue home meds. Ambulatory dysfunction - Baseline Fx: uses walker - Living in Assisted living. - Fall precaution - OT/PT eval HTN- stable, continue home med Hyperlipidemia: Stable, continue home med Hypothyroidism: Stable, continue home 100, TSH 2.2 Coronary artery disease HLD S/P stent Continue Plavix, statin, propranolol Essential tremors: Continue on propranolol BPH:Continue on dutasteride and tamsulosin Mood disorder:Continue duloxetine, citalopram Dispo: Med/ Surg Tele DVT prophylaxis: SCDs Code Status: Full Admission and Anticipated Discharge Date Admission Date: November 10, 2024 Supervising Physician Co-Signing Physician Notes I personally examined the patient and verified all sanderson points of history and exam, discussed case, and agree with decision making with Dr Finn PGY 2 Patient with hematuria, and low grade fever after urological procedure on 11/09 by [facility] Urologist. Patient will be admitted to med [facility]. Will empirically on zosyn and vanco. 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 Hematuria improved with bladder irrigation. Held it today for a trial but urine again became red. sepsis protocol started: IVF bolus ordered. This is a complicated case given recent intervention, fever, sepsis, but patient is improving. Subjective ON resident mentioned he had some rashes last night. Talked to bedside RN she was not aware of this time I talked to her. Patient sleeping comfortably on bedside. He was breathing normal and comfortable. No other ON issue noted by nurse. Physical Exam Physical Exam: Constitutional: O2 via NC, Frail appearing, Sleeping comfortable in bed,No acute distress, Pale looking. HEENT: Atraumatic, Normocephalic CVS: S1 S2, murmur +, Regular Rhythm, no LE edema Respiratory: BL decreased air entry with Prolonged VBS. Occasional wheezes, No rhonchi or crackles. No increased work of breathing GI: Soft, Nondistended, Nontender, Normal Bowel sounds + MSK: No gross deformities noted Skin: Warm, Dry, No rashes. Results & Data Results & Data Vital Signs (Past 12 Hours) Vital Signs Temp Pulse Pulse Resp BP BP Pulse Ox 11/11/24 13:23 37.1 C 11/11/24 13:23 37.7 C H 11/11/24 11:23 37.7 C H 75 21 104/66 90 11/11/24 11:03 62 18 94 11/11/24 10:17 11/11/24 08:01 37.3 C 62 19 96/62 L 93 11/11/24 07:53 63 18 93 11/11/24 07:19 67 11/11/24 04:44 37.0 C 62 18 102/63 94 11/11/24 02:30 77 11/11/24 02:16 37.5 C 63 18 98/60 L 97 11/11/24 02:12 64 17 94 11/11/24 01:44 11/11/24 01:41 36.5 C 66 18 112/71 95 O2 Del Method O2 Flow Rate 11/11/24 13:23 11/11/24 13:23 11/11/24 11:23 Nasal Cannula 5 11/11/24 11:03 Nasal Cannula 5 11/11/24 10:17 Nasal Cannula 3 11/11/24 08:01 Nasal Cannula 5 11/11/24 07:53 Nasal Cannula 5 11/11/24 07:19 11/11/24 04:44 Nasal Cannula 5 11/11/24 02:30 11/11/24 02:16 Oxymask 5 11/11/24 02:12 Nasal Cannula 5 11/11/24 01:44 Nasal Cannula 5 11/11/24 01:41 Nasal Cannula 5 Resident Activity Tracking Resident Involvement: Resident Care Provided Care Provided: Adult Hospital Medicine (6) Leukocytosis Leukocytosis type: unspecified Qualified Code(s): D72.829 - Elevated white blood cell count, unspecified (9) Chronic respiratory failure Respiratory failure complication: hypoxia Qualified Code(s): J96.11 - Chronic respiratory failure with hypoxia
[2024-11-11] MEDS ORDERED: ALBUT/IPRATROP 3MG/0.5MG NEB 3 ML VIAL NEB PRN (15:23)
--- NOTE | 2024-11-12 06:52 | Hospitalist Progress Note ---
Date of Service November 12, 2024 Assessment & Plan (1) BPH NOS w ur obs/LUTS: (2) Gross hematuria: (3) Disabling essential tremor: (4) Fracture of left tenth rib: (5) Abnormal urinalysis: (6) Leukocytosis: (7) (HFpEF) heart failure with preserved ejection fraction: (8) Ambulatory dysfunction: (9) Chronic respiratory failure: (10) Kidney stones: (11) COPD (chronic obstructive pulmonary disease): (12) Hypertension: (13) Hyperlipidemia: Plan Mr. Starks with PMH of BPH with LUTS, essential tremor, tenth rib fracture, fall, Ambulatory dysfunction, Heart failure with pre EF, Chronic respiratory failure, Dizziness, Kidney stones,CHRF, COPD, O2 dependance, Depression, Spinal stenosis presented to ED with h/o fever, confusion after urologic procedure, done 1 day back. Work up in ED revealed elevated WBCs and multiple stones in BL Kidneys with normal creatinine. Post admission patient rapidly progressed to SIRS despite IV Zosyn. Admitted for Urosepsis management. Today he is doing much better clinically and lab duff, Urine/ blood culture unremarkable. Will plan for oral transition. Hematuria clearing up with irrigation. Urosepsis *Improving - Presented with Fever with recent uro-procedure. - Decompensated very rapid on floor-- T max 39, WBCs 12.6, confusion, Low BP, Met SIRS criteria - Managed in line of Urosepsis: Zosyn+ Vanc, IV fluids( Bolus+ maintenance) - Lactate: Unremarkable - WBCs trending down: 6.08 this AM. - UA: Nitrite neg, Simona E positive, significant WBCs. - Urine CS/ Blood CS: unremarkable 24 hour reading - Urology on board: appreciate rec Continue catheter/Antibiotics Plan: Switch to oral Cefdinir, aiming gram -ve coverage. Recent most urine CS unremarkable. Patient clinically seem to be improved after fluid resuscitation rather than MRSA coverage per se. He got better pretty quick implying less of MRSA, which again is very rare for UTI. Hence would cover usual GNs for UTI and closely observe. Treating for complicated UTI for 7 days. - Repeat CBC AM. Gross Hematuria - Urine looks seed cleaner this AM; Continue intermittent irrigation. Nephrolithiasis - Extensive BL Nephrolithiasis - Creatinine: WNL - No active intervention per uro Chronic hypoxic respiratory failure - Remains on home O2. - Will monitor SpO2. - CXR: elevated RT HemiDiaph+ Basilar Atelectasis. - Duoneb during stay. Hold home albuterol. Heart failure with PrEF: - No HF symptom at current. - Echo( 10/13): EF 50-55% - Continue home meds. Ambulatory dysfunction - Baseline Fx: uses walker - Living in personal residential. - Fall precaution - OT/PT eval pending HTN- stable, continue home med Hyperlipidemia: Stable, continue home med Hypothyroidism: Stable, continue home 100, TSH 2.2 Coronary artery disease HLD S/P stent Continue Plavix, statin, propranolol Essential tremors: Continue on propranolol BPH:Continue on dutasteride and tamsulosin Mood disorder:Continue duloxetine, citalopram Dispo: Med/ Surg Tele DVT prophylaxis: SCDs Code Status: Full Admission and Anticipated Discharge Date Admission Date: November 10, 2024 Supervising Physician Co-Signing Physician Notes I personally examined the patient and verified all sanderson points of history and exam, discussed case, and agree with decision making with Dr Finn Resting comfortably. Ibrahim still draining. Irrigation turned off. Vitals noted, in general he is resting comfortably in bed appears to be in no distress. Breathing unlabored no accessory muscle use good effort. Skin withou t rashes pallor or icterus. Neuro without focal deficits. Urine in Ibrahim bag is light red UTI with sepsis present on admissionstatus post urologic procedure, potentially a complication of care; along with altered mental status that is likely metabolic encephalopathy related to the UTI/sepsis. Continue empiric antibiotic coveragehowever, given that he was not severe sepsis or septic shock, and cultures are negative (unfortunately after antibiotics) I doubt there is need for MRSA or pseudomonal coveragedowngrade to third-generation cephalosporin and follow. He will likely be under our care pending placement for a few days of observation anyway, although if he were to have placement sooner, I would reach out to the physician assuming his care to let them know about the recent downgradebut I suspect patient will do well. Otherwise as above. Subjective Mr. Starks remains still confused,not sure how deviated from baseline but much better than what I saw during admission, he was responsive to my questions here and there. Could not tell me his daughter's name, could not tell which day it is today but he shared what was going with him. He told me he was living in [facility] before he came in and he expresses that he feels a lot better than how he came in to ED. However still feels weak, which he thinks because he is ge tting old. Per Chart review Tmax 37.7 last 1 pm. Breathing better, remains O2, he is aware that he was using oxygen at home since long. Review of Systems Review of Systems: As per HPI Physical Exam Physical Exam: Constitutional: O2 via NC, Frail appearing, Sleeping comfortable in bed, No acute distress, Pale looking. HEENT: Atraumatic, Normocephalic CVS: S1 S2, murmur+, Regular Rhythm, no LE edema Respiratory: BL decreased air entry with Prolonged VBS. Occasional wheezes, No rhonchi or crackles. No increased work of breathing GI: Soft, Nondistended, Nontender, Normal Bowel sounds + : CBI ongoing, urine clearing up. MSK: No gross deformities noted Skin: Warm, Dry, No rashes. Results & Data Results & Data Vital Signs (Past 12 Hours) Vital Signs Temp Pulse Pulse Resp BP Pulse Ox O2 Del Method 11/12/24 04:30 108/69 11/12/24 04:12 36.6 C 59 L 18 98/60 L 96 Nasal Cannula 11/11/24 23:59 36.6 C 60 18 93/56 L 92 Oxymask 11/11/24 23:13 Oxymask 11/11/24 21:43 64 11/11/24 19:58 36.5 C 64 18 119/67 92 Oxymask O2 Flow Rate 11/12/24 04:30 11/12/24 04:12 3 11/11/24 23:59 3 11/11/24 23:13 3 11/11/24 21:43 11/11/24 19:58 3 Resident Activity Tracking Resident Involvement: Resident Care Provided Care Provided: Adult Hospital Medicine (6) Leukocytosis Leukocytosis type: unspecified Qualified Code(s): D72.829 - Elevated white blood cell count, unspecified (9) Chronic respiratory failure Respiratory failure complication: hypoxia Qualified Code(s): J96.11 - Chronic respiratory failure with hypoxia
[2024-11-12 07:20] LABS: Hematocrit (blood only) 34.2 % (42.0-52.0); Hemoglobin 11.0 g/dl (14.0-18.0); Immature Granulocytes # (auto) 0.08 K/uL (0.01-0.20); Immature Granulocytes % (auto) 1.3 %; Mean Corpuscular Hemoglobin 30.6 pg (25.0-34.0); Mean Corpuscular Volume 95.3 fL (80.0-100.0); Platelet Count 103 K/uL (130-400); RDW Standard Deviation 50.4 fL (36.4-46.3); Red Blood Count 3.59 M/uL (4.70-6.10); White Blood Count 6.08 K/ul (4.8-10.8)
[2024-11-12 07:46] LABS: Alanine Aminotransferase 7.0 U/L (7-52); Albumin Globulin Ratio 1.4 (0.9-2); Albumin Level 3.2 gm/dl (3.4-5.0); Alkaline Phosphatase 63.0 U/L (34-104); Anion Gap 3.0 (3-11); Bilirubin,Total 0.4 mg/dl (0.2-1.0); Blood Urea Nitrogen 8.0 mg/dl (6-23); Calcium 8.4 mg/dl (8.6-10.3); Carbon Dioxide 33.0 mmol/L (21-32); Chloride 102.0 mmol/L (98-107); Creatinine Clr Calc Pharmacy 68.6 ml/min; Globulin 2.3 gm/dl (2.5-4.0); Glucose 125.0 mg/dl (70-99(Fasting)); Potassium 3.8 mmol/L (3.5-5.1); Sodium 138.0 mmol/L (136-145); Total Protein 5.5 gm/dl (6.0-8.3)
--- NOTE | 2024-11-12 08:25 | Billing Data ---
Date of Service November 11, 2024 Coding Level of Care Code 09556 SUB INP/OBS CARE MIN
[2024-11-12] MEDS ORDERED: SPIRONOLACTONE 12.5 MG TAB PO SCH (09:00)
--- NOTE | 2024-11-12 09:49 | Urology Progress Note ---
Date of Service November 12, 2024 Assessment & Plan (1) Gross hematuria: (2) BPH NOS w ur obs/LUTS: Plan: 84-year-old male currently admitted due to confusion and gross hematuria. Ibrahim catheter was swapped out to a 22 [place] three-way and he was started on CBI on 11/10/2024. Ibrahim draining clear urine with minimal pink tinge with CBI on slow, CBI titrated down further during exam Plan to titrate CBI and perform clamp trial today Nursing can hand irrigate if necessary Continue broad-spectrum antibiotics and follow-up cultures Continue medical management per hospital medicine service Plan to maintain catheter upon discharge and follow-up with his urologist for further management Urology to follow Admission and Anticipated Discharge Date Admission Date: November 10, 2024 Subjective Patient seen and examined at bedside this morning. He is awake and resting comfortably in bed. Denies pain. No fever or chills overnight. No acute issues overnight. Ibrahim draining clear urine with CBI on slow. Labs reviewedcreatinine 0.71, WBC 6.08, hemoglobin 11.0 Review of Systems Constitutional: as per Subjective / HPI Genitourinary: + as per Subjective / HPI Physical Exam Constitutional: no acute distress Respiratory: normal respiratory effort; no respiratory distress Gastrointestinal (Abdomen): Inspection/Auscultation: abdomen normal to inspection Musculoskeletal: Head/Neck/Chest: normocephalic Neurologic: moves all extremities and awake Psychiatric: Orientation: alert Genitourinary: Ibrahim draining clear yellow urine with CBI on slow Results & Data Vital Signs (Past 12 Hours) Vital Signs Temp Pulse Pulse Resp BP Pulse Ox O2 Del Method 11/12/24 08:04 36.8 C 60 18 100/61 92 Oxymask 11/12/24 07:15 66 18 93 Oxymask 11/12/24 07:13 57 L 11/12/24 04:30 108/69 11/12/24 04:12 36.6 C 59 L 18 98/60 L 96 Nasal Cannula 11/11/24 23:59 36.6 C 60 18 93/56 L 92 Oxymask 11/11/24 23:13 Oxymask O2 Flow Rate 11/12/24 08:04 3 11/12/24 07:15 3 11/12/24 07:13 11/12/24 04:30 11/12/24 04:12 3 11/11/24 23:59 3 11/11/24 23:13 3 PG Care Time/CCT Total # of Minutes Spent Total Time Spent with Patient: Total time spent is greater than 50% in coordination of care (as documented) at patient's floor/unit and/or counseling patient: Coding Level of Care Code 01325 SUB INP/OBS CARE 2/35MIN Diagnoses Gross hematuria R31.0 BPH NOS w ur obs/LUTS N40.1
--- NOTE | 2024-11-12 16:08 | Billing Data ---
Date of Service November 12, 2024 Coding Level of Care Code 75997 SUB INP/OBS CARE
[2024-11-12] MEDS: CEFDINIR 300 MG CAP PO SCH (21:02)
[2024-11-12] MEDS: MAGNESIUM HYDROXIDE SUSP 30 ML UDC PO PRN (21:12)
--- NOTE | 2024-11-13 07:08 | Hospitalist Progress Note ---
Date of Service November 13, 2024 Assessment & Plan (1) BPH NOS w ur obs/LUTS: (2) Gross hematuria: (3) Disabling essential tremor: (4) Fracture of left tenth rib: (5) Abnormal urinalysis: (6) Leukocytosis: (7) (HFpEF) heart failure with preserved ejection fraction: (8) Ambulatory dysfunction: (9) Chronic respiratory failure: (10) Kidney stones: (11) COPD (chronic obstructive pulmonary disease): (12) Hypertension: (13) Hyperlipidemia: Plan Mr. Starks with PMH of BPH with LUTS, essential tremor, tenth rib fracture, fall, Ambulatory dysfunction, Heart failure with pre EF, Chronic respiratory failure, Dizziness, Kidney stones, CHRF, COPD, O2 dependance, Depression, Spinal stenosis presented to ED with h/o fever, confusion after urologic procedure, done 1 day before admission. Work up in ED revealed elevated WBCs and multiple stones in BL Kidneys with normal creatinine. Post admission patient rapidly progressed to SIRS despite IV Zosyn. Admitted for Urosepsis management. Got better very quick, Urine/ blood culture unremarkable. Oral cefdinir started yes terday. Hematuria clearing up with irrigation. Urosepsis *Improved. - Improved SIRS. - WBCs stable: 7.41 this AM. - Urine CS/ Blood CS: unremarkable 24 hour reading - Urology on board: Appreciate rec Continue catheter/Antibiotic Plan: Cefdinir BID for total 7 days. Stable for DC. Gross Hematuria - Urine looks graffiti cleaner this AM; Continue intermittent irrigation. Nephrolithiasis - Extensive BL Nephrolithiasis - Creatinine: WNL - No active intervention per uro Chronic hypoxic respiratory failure - Remains on home O2. - Will monitor SpO2. - CXR: elevated RT HemiDiaph+ Basilar Atelectasis. - Duoneb during stay. Hold home albuterol. Heart failure with PrEF: - No HF symptom at current. - Echo( 10/13): EF 50-55% - Continue home meds. Ambulatory dysfunction - Baseline Fx: uses walker - Living in personal fci. - Fall precaution ongoing. - OT/PT: recommends rehab. HTN- stable, continue home med Hyperlipidemia: Stable, continue home med Hypothyroidism: Stable, continue home 100, TSH 2.2 Coronary artery disease/HLD S/P stent Continue Plavix, statin, propranolol Essential tremors: Continue on propranolol BPH: Continue on dutasteride and tamsulosin Mood disorder: Continue duloxetine, citalopram Dispo: SNF DVT prophylaxis: SCDs Code Status: Full Admission and Anticipated Discharge Date Admission Date: November 10, 2024 Supervising Physician Co-Signing Physician Notes I personally examined the patient and verified all sanderson points of history and exam, discussed case, and agree with decision making with Dr Finn notes that he feels weak. Ate breakfast fairly well. No acute complaints. Vitals noted, in general he is awake seems to be easily confused, but pleasant and conversational. No distress. HEENT normocephalic atraumatic mucous membranes moist. Breathing unlabored no accessory muscle use good effort. Skin without rashes pallor or icterus. Ibrahim draining clear urine, irrigation is off. UTI with sepsis present on admissionstatus post urologic procedure, potenti ally a complication of care; along with altered mental status that is likely metabolic encephalopathy related to the UTI/sepsis. Continue empiric antibiotic coveragehowever, given that he was not severe sepsis or septic shock, and cultures are negative (unfortunately after antibiotics) I doubt there is need for MRSA or pseudomonal coveragedowngraded to third-generation cephalosporin and following. Very weak, awaiting to hear from his personal care, but I suspect he will need SNF or rehab. Otherwise as above. Chronic hypoxic respiratory failure on 3 L of oxygencontinue. DVT prophylaxisSCDs (pharmacologic on hold given recent hematuria) Subjective Remains stable. No new fever, no worsening of mental status. Ibrahim intermittently clamped. Urine clean on tube. Review of Systems Review of Systems: As per HPI Physical Exam Physical Exam: Constitutional: O2 via NC, Frail appearing, Sleeping comfortable in bed, No acute distress, Pale looking. HEENT: Atraumatic, Normocephalic CVS: S1 S2, murmur+, Regular Rhythm, no LE edema Respiratory: BL decreased air entry with Prolonged VBS. Occasional wheezes, No rhonchi or crackles. No increased work of breathing GI: Soft, Nondistended, Nontender, Normal Bowel sounds + : Ibrahim in situ, urine clearing up. MSK: No gross deformities noted Skin: Warm, Dry, No rashes. Results & Data Results & Data Vital Signs (Past 12 Hours) Vital Signs Temp Pulse Pulse Resp BP Pulse Ox O2 Del Method 11/13/24 07:04 66 18 94 Nasal Cannula 11/13/24 03:53 36.6 C 59 L 18 117/68 96 Nasal Cannula 11/13/24 00:35 36.5 C 59 L 18 112/65 93 Nasal Cannula 11/12/24 23:29 56 L 11/12/24 23:02 Nasal Cannula 11/12/24 20:59 95 Nasal Cannula 11/12/24 20:15 36.5 C 61 18 120/72 93 Nasal Cannula O2 Flow Rate 11/13/24 07:04 3 11/13/24 03:53 3 11/13/24 00:35 3 11/12/24 23:29 11/12/24 23:02 3 11/12/24 20:59 3 11/12/24 20:15 3 (6) Leukocytosis Leukocytosis type: unspecified Qualified Code(s): D72.829 - Elevated white blood cell count, unspecified (9) Chronic respiratory failure Respiratory failure complication: hypoxia Qualified Code(s): J96.11 - Chronic respiratory failure with hypoxia
[2024-11-13 07:20] LABS: Hematocrit (blood only) 34.0 % (42.0-52.0); Hemoglobin 11.4 g/dl (14.0-18.0); Immature Granulocytes # (auto) 0.12 K/uL (0.01-0.20); Immature Granulocytes % (auto) 1.6 %; Mean Corpuscular Hemoglobin 31.9 pg (25.0-34.0); Mean Corpuscular Volume 95.2 fL (80.0-100.0); Platelet Count 135 K/uL (130-400); RDW Standard Deviation 49.5 fL (36.4-46.3); Red Blood Count 3.57 M/uL (4.70-6.10); White Blood Count 7.41 K/ul (4.8-10.8)
[2024-11-13 07:46] LABS: Anion Gap 4.0 (3-11); Blood Urea Nitrogen 7.0 mg/dl (6-23); Calcium 8.6 mg/dl (8.6-10.3); Carbon Dioxide 34.0 mmol/L (21-32); Chloride 101.0 mmol/L (98-107); Creatinine Clr Calc Pharmacy 68.6 ml/min; Glucose 104.0 mg/dl (70-99(Fasting)); Potassium 3.6 mmol/L (3.5-5.1); Sodium 139.0 mmol/L (136-145)
--- NOTE | 2024-11-13 09:16 | Billing Data ---
Date of Service November 13, 2024 Coding Level of Care Code 05311 SUB INP/OBS CARE
--- NOTE | 2024-11-13 10:55 | Urology Progress Note ---
Date of Service November 13, 2024 Assessment & Plan (1) Gross hematuria: (2) BPH NOS w ur obs/LUTS: Plan: 84-year-old male currently admitted due to confusion and gross hematuria. Ibrahim catheter was swapped out to a 22 [place] three-way and he was started on CBI on 11/10/2024. Patient afebrile, hemodynamically stable Labs reviewedcreatinine 0.71 WBC 7.41, hemoglobin 11.4 Urine culture negative, blood cultures with no growth to date CBI clamped yesterday Ibrahim draining appropriately, urine is relatively clear, there is some bloody sediment on catheter tubing intermittently blushing urine Okay to discontinue CBI set up, maintain Ibrahim catheter Nursing can hand irrigate catheter if necessary Continue with empiric antibiotics Continue medical management per hospital medicine service Plan to maintain catheter upon discharge and follow-up with his urologist for further management Urology will sign off, please contact our service for any additional questions or concerns Admission and Anticipated Discharge Date Admission Date: November 10, 2024 Subjective Patient seen and examined awake and resting comfortably in bed. No acute issues overnight. CBI clamped yesterday. Ibrahim patent and draining relatively clear to pink urine. Denies fever or chills. Review of Systems Constitutional: as per Subjective / HPI Genitourinary: + as per Subjective / HPI Physical Exam Constitutional: no acute distress Respiratory: normal respiratory effort; no respiratory distress Gastrointestinal (Abdomen): Inspection/Auscultation: abdomen normal to inspection Musculoskeletal: Head/Neck/Chest: normocephalic Neurologic: moves all extremities and awake Psychiatric: Orientation: alert Genitourinary: Ibrahim draining relatively clear urine with CBI clamped. There is some bloody sediment in tubing intermittently blushing urine. Results & Data Vital Signs (Past 12 Hours) Vital Signs Temp Pulse Pulse Resp BP BP Pulse Ox 11/13/24 08:28 11/13/24 08:14 64 11/13/24 07:18 36.6 C 59 L 18 114/74 95 11/13/24 07:04 66 18 94 11/13/24 06:14 58 L 11/13/24 03:53 36.6 C 59 L 18 117/68 96 11/13/24 00:35 36.5 C 59 L 18 112/65 93 11/12/24 23:29 56 L 11/12/24 23:02 O2 Del Method O2 Flow Rate 11/13/24 08:28 Nasal Cannula 3 11/13/24 08:14 11/13/24 07:18 Nasal Cannula 3 11/13/24 07:04 Nasal Cannula 3 11/13/24 06:14 11/13/24 03:53 Nasal Cannula 3 11/13/24 00:35 Nasal Cannula 3 11/12/24 23:29 11/12/24 23:02 Nasal Cannula 3 PG Care Time/CCT Total # of Minutes Spent Total Time Spent with Patient: Total time spent is greater than 50% in coordination of care (as documented) at patient's floor/unit and/or counseling patient: Coding Level of Care Code 13871 SUB INP/OBS CARE 03/17MIN Diagnoses Gross hematuria R31.0 BPH NOS w ur obs/LUTS N40.1
[2024-11-13] MEDS: ACETAMINOPHEN 325 MG TAB PO PRN (15:50)
[2024-11-14 07:43] LABS: Hematocrit (blood only) 35.0 % (42.0-52.0); Hemoglobin 11.7 g/dl (14.0-18.0); Immature Granulocytes # (auto) 0.04 K/uL (0.01-0.20); Immature Granulocytes % (auto) 0.6 %; Mean Corpuscular Hemoglobin 31.8 pg (25.0-34.0); Mean Corpuscular Volume 95.1 fL (80.0-100.0); Platelet Count 151 K/uL (130-400); RDW Standard Deviation 49.6 fL (36.4-46.3); Red Blood Count 3.68 M/uL (4.70-6.10); White Blood Count 7.03 K/ul (4.8-10.8)
--- NOTE | 2024-11-14 10:41 | Hospitalist Progress Note ---
Date of Service November 14, 2024 Assessment & Plan (1) BPH NOS w ur obs/LUTS: (2) Gross hematuria: (3) Disabling essential tremor: (4) Fracture of left tenth rib: (5) Abnormal urinalysis: (6) Leukocytosis: (7) (HFpEF) heart failure with preserved ejection fraction: (8) Ambulatory dysfunction: (9) Chronic respiratory failure: (10) Kidney stones: (11) COPD (chronic obstructive pulmonary disease): (12) Hypertension: (13) Hyperlipidemia: Plan Mr. Starks with PMH of BPH with LUTS, essential tremor, tenth rib fracture, fall, Ambulatory dysfunction, Heart failure with pre EF, Chronic respiratory failure, Dizziness, Kidney stones, CHRF, COPD, O2 dependance, Depression, Spinal stenosis presented to ED with h/o fever, confusion after urologic procedure, done 1 day before admission. Work up in ED revealed elevated WBCs and multiple stones in BL Kidneys with normal creatinine. Post admission patient rapidly progressed to SIRS despite IV Zosyn. Admitted for Urosepsis management. Got better very quick, Urine/ blood culture unremarkable. Oral cefdinir started yes terday. Hematuria clearing up with irrigation. Urosepsis *Improved. - WBCs stable - Urine CS/ Blood CS: unremarkable 24 hour reading - Continue catheter Plan: Cefdinir BID for total 7 days. Stable for DC. Pending placement Gross Hematuria - Urine looks dry cleaner helper this AM; Nursing doing intermittent. - DC with ramos Nephrolithiasis - Extensive BL Nephrolithiasis - Creatinine: WNL - No active intervention per uro Chronic hypoxic respiratory failure - Remains on home O2. - Will monitor SpO2. - CXR: elevated RT HemiDiaph+ Basilar Atelectasis. - Resume home albuterol. Heart failure with PrEF: - No HF symptom at current. - Echo( 10/13): EF 50-55% - Continue home meds. Ambulatory dysfunction - Baseline Fx: uses walker - Living in personal group home. - Fall precaution ongoing. - OT/PT: recommends rehab. HTN- stable, continue home med Hyperlipidemia: Stable, continue home med Hypothyroidism: Stable, continue home 100, TSH 2.2 Coronary artery disease/HLD S/P stent Continue Plavix, statin, propranolol Essential tremors: Continue on propranolol BPH: Continue on dutasteride and tamsulosin Mood disorder: Continue duloxetine, citalopram Dispo: SNF/ Pending placement DVT prophylaxis: SCDs Code Status: Full Admission and Anticipated Discharge Date Admission Date: November 10, 2024 Supervising Physician Co-Signing Physician Notes I personally examined the patient and verified all sanderson points of history and exam, discussed case, and agree with decision making with Dr Finn No acute complaints. Awaiting decision from his [facility] if he can return or if he requires rehab first. Vitals noted, in general he is awake seems to be easily confused, but pleasant and conversational. No distress. HEENT normocephalic atraumatic mucous membranes moist. Breathing unlabored no accessory muscle use good effort. Skin without rashes pallor or icterus. Ramos draining clear urine, irrigation is off. UTI with sepsis present on admissionstatus post urologic procedure, potentially a complication of care; along with altered mental status that is likely metabolic encephalopathy related to the UTI/sepsis. Continue empiric antibiotic coveragehowever, given that he was not severe sepsis or septic shock, and cultures are negative (unfortunately after antibiotics) I doubt there is need for MRSA or pseudomonal coveragedowngraded to third-generation cephalosporin and following. he is doing well in this regard. Very weak, awaiting to hear from his personal care, but I suspect he will need SNF or rehab. Otherwise as above. Chronic hypoxic respiratory failure on 3 L of oxygencontinue. DVT prophylaxisSCDs (pharmacologic on hold given hematuria) Subjective Remains stable. Expresses feels better however not aware Review of Systems Review of Systems: As per HPI Physical Exam Physical Exam: Constitutional: O2 via NC, Frail appearing, Sleeping comfortable in bed, No acute distress, Pale looking. HEENT: Atraumatic, Normocephalic CVS: S1 S2, murmur+, Regular Rhythm, no LE edema Respiratory: BL decreased air entry with Prolonged VBS. No wheezes, No rhonchi or crackles. No increased work of breathing GI: Soft, Nondistended, Nontender, Normal Bowel sounds + : Ramos in situ, urine clearing up. MSK: No gross deformities noted Skin: Warm, Dry, No rashes. Results & Data Results & Data Vital Signs (Past 12 Hours) Vital Signs Temp Pulse Resp BP Pulse Ox O2 Del Method O2 Flow Rate 11/14/24 08:12 36.6 C 59 L 20 96/55 L 94 Room Air 11/14/24 07:48 53 L 18 92 Nasal Cannula 3 11/14/24 03:44 37.1 C 62 18 126/68 96 Nasal Cannula 3 11/14/24 00:15 37.3 C 60 18 119/76 96 Room Air Resident Activity Tracking Resident Involvement: Resident Care Provided Care Provided: Adult Hospital Medicine (6) Leukocytosis Leukocytosis type: unspecified Qualified Code(s): D72.829 - Elevated white blood cell count, unspecified (9) Chronic respiratory failure Respiratory failure complication: hypoxia Qualified Code(s): J96.11 - Chronic respiratory failure with hypoxia
--- NOTE | 2024-11-14 15:54 | Billing Data ---
Date of Service November 14, 2024 Coding Level of Care Code 18289 SUB INP/OBS CARE
[2024-11-14] MEDS: MoRPHine SULFATE 2 MG/ML CARP IV STA (20:32)
--- NOTE | 2024-11-15 12:28 | Hospitalist Progress Note ---
Date of Service November 15, 2024 Assessment & Plan (1) BPH NOS w ur obs/LUTS: (2) Gross hematuria: (3) Disabling essential tremor: (4) Fracture of left tenth rib: (5) Abnormal urinalysis: (6) Leukocytosis: (7) (HFpEF) heart failure with preserved ejection fraction: (8) Ambulatory dysfunction: (9) Chronic respiratory failure: (10) Kidney stones: (11) COPD (chronic obstructive pulmonary disease): (12) Hypertension: (13) Hyperlipidemia: Plan Mr. Starks with PMH of BPH with LUTS, essential tremor, tenth rib fracture, fall, Ambulatory dysfunction, Heart failure with pre EF, Chronic respiratory failure, Dizziness, Kidney stones, CHRF, COPD, O2 dependance, Depression, Spinal stenosis presented to ED with h/o fever, confusion after urologic procedure, done 1 day before admission. Work up in ED revealed elevated WBCs and multiple stones in BL Kidneys with normal creatinine. Post admission patient rapidly progressed to SIRS despite IV Zosyn. Admitted for Urosepsis management. Got better very quick, Urine/ blood culture unremarkable. Oral cefdinir started yes terday. Hematuria clearing up with irrigation. Urosepsis *Improved. - WBCs stable - Urine CS/ Blood CS: unremarkable 24 hour reading - Continue catheter Plan: Cefdinir BID for total 7 days. Stable for DC. 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 - DC with ramos Nephrolithiasis - Extensive BL Nephrolithiasis - Creatinine: WNL - No active intervention per uro Chronic hypoxic respiratory failure - Remains on home O2. - Will monitor SpO2. - CXR: elevated RT HemiDiaph+ Basilar Atelectasis. - Resume home albuterol. Heart failure with PrEF: - No HF symptom at current. - Echo( 10/13): EF 50-55% - Continue home meds. Ambulatory dysfunction - Baseline Fx: uses walker - Living in personal long-term. - Fall precaution ongoing. - OT/PT: recommends rehab. HTN- stable, continue home med Hyperlipidemia: Stable, continue home med Hypothyroidism: Stable, continue home 100, TSH 2.2 Coronary artery disease/HLD S/P stent Continue Plavix, statin, propranolol Essential tremors: Continue on propranolol BPH: Continue on dutasteride and tamsulosin Mood disorder: Continue duloxetine, citalopram Dispo: SNF/ Pending placement DVT prophylaxis: SCDs Code Status: Full Admission and Anticipated Discharge Date Admission Date: November 10, 2024 Review of Systems Review of Systems: As per HPI Physical Exam Physical Exam: Constitutional: O2 via NC, Frail appearing, Sleeping comfortable in bed, No acute distress, Pale looking. HEENT: Atraumatic, Normocephalic CVS: S1 S2, murmur+, Regular Rhythm, no LE edema Respiratory: BL decreased air entry with Prolonged VBS. No wheezes, No rhonchi or crackles. No increased work of breathing GI: Soft, Nondistended, Nontender, Normal Bowel sounds + : Ramos in situ, urine clearing up. MSK: No gross deformities noted Skin: Warm, Dry, No rashes. Results & Data Results & Data Vital Signs (Past 12 Hours) Vital Signs Temp Pulse Resp BP Pulse Ox O2 Del Method O2 Flow Rate 11/15/24 11:45 Nasal Cannula 3 11/15/24 11:06 67 18 96 Nasal Cannula 2 11/15/24 08:06 61 17 93 Nasal Cannula 3 11/15/24 07:55 37.0 C 79 20 113/70 95 Room Air (6) Leukocytosis Leukocytosis type: unspecified Qualified Code(s): D72.829 - Elevated white blood cell count, unspecified (9) Chronic respiratory failure Respiratory failure complication: hypoxia Qualified Code(s): J96.11 - Chronic respiratory failure with hypoxia
[2024-11-15] MEDS: ADVANCED PROBIOTIC 625 MG CAPSULE PO SCH (12:39)
--- NOTE | 2024-11-15 14:22 | Discharge Summary ---
Date of Service November 15, 2024 Admission HPI Per Admitting Provider Mr. Starks with PMH of BPH with LUTS, essential tremor, tenth rib fracture, fall, Ambulatory dysfunction, Heart failure with pre EF, Chronic respiratory failure, Dizziness, Kidney stones,CHRF, COPD, O2 dependance, Depression, Spinal stenosis presented to ED via EMS from [facility] after they found Fabian has developed fever and was appeared confused. Patient is a poor historian, not aware that he is in hospital. Called his daughter, listed as primary contact. She gives history via phone. She said that urology procedure was done yesterday in [facility] by Dr. Conway, she is not sure what suergery was done but related to urinary obstruction. Then after she got call last night that Fabian developed fever and pos- surgery instruction was mentioning he should visit ED in case of fever so they brought him here. Daughter mentions that he was as baseline until last night when she talked to him, but does get confused when he gets sick or usually in fever. Patient endorsed that he is feeling cold, has some pain in his left belly towards flank, does not know where is he now but kept on repeating I feel cold, I need some warm blankets. He shared he has daughter and son nearby. Admission Exam Per Admitting Provider Constitutional: O2 via NC, Frail appearing, Confused, No acute distress, Pale looking, shivering in cold. HEENT: Atraumatic, Normocephalic, No conjunctival injection CVS: S1 S2, murmur +, Regular Rhythm, no LE edema Respiratory: BL decreased air entry with Prolonged VBS. Occasional wheezes, No rhonchi or crackles. No increased work of breathing GI: Soft, Nondistended, Nontender, Normal Bowel sounds + MSK: No gross deformities noted Skin: Warm, Dry, No rashes Neuro: Alert, Oriented to TPP, No Focal deficit. Psych: Mood and Affect congruent, Cooperative on exam Principal Diagnosis Complicated UTI Discharge Exam Constitutional: O2 via NC, Frail appearing, Sleeping comfortable in bed, No acute distress, Pale looking. HEENT: Atraumatic, Normocephalic CVS: S1 S2, murmur+, Regular Rhythm, no LE edema Respiratory: BL decreased air entry with Prolonged VBS. No wheezes, No rhonchi or crackles. No increased work of breathing GI: Soft, Nondistended, Nontender, Normal Bowel sounds + : Ramos in situ, urine clearing up. MSK: No gross deformities noted Skin: Warm, Dry, No rashes. Discharge Data Allergies Allergy/AdvReac Type Severity Reaction Status Date / Time tramadol AdvReac Intermediate Hallucinati Verified 03/12/23 02:38 ng grapefruit AdvReac Unknown WAS TOLD Verified 03/12/23 02:38 NOT TO TAKE BECAUSE OF CHOLESTROL PILL. Consultations 11/10/24 10:11 ED Decision to Admit Stat 11/10/24 10:53 Consult Urology Routine Ordered Studies 11/10/24 06:15 CT Abd and Pelvis [CT abd pelvis IV con only] Stat Hospital Course (1) Nephrolithiasis: (2) Gross hematuria: (3) Gross hematuria: (4) (HFpEF) heart failure with preserved ejection fraction: (5) Ambulatory dysfunction: (6) Acute and chronic respiratory failure: (7) Hypertension: (8) Hyperlipidemia: (9) Sepsis: Plan Mr. Starks with PMH of BPH with LUTS, essential tremor, tenth rib fracture, fall, Ambulatory dysfunction, Heart failure with pre EF, Chronic respiratory failure, Dizziness, Kidney stones, CHRF, COPD, O2 dependance, Depression, Spinal stenosis presented to ED with h/o fever, confusion after urologic procedure, done 1 day before admission, admitted for Urosepsis management. Got better very quick, Urine/ blood culture unremarkable. Discharged on Oral cefdinir, He maturia clearing up with irrigation Urosepsis Urine CS/ Blood CS: unremarkable Cefdinir BID for total 7 days. Stable for DC. Pending placement Gross Hematuria Clearing before Discharge Continue Ramos's catheter until Urology apt. Nephrolithiasis - Extensive BL Nephrolithiasis - Creatinine: WNL - No active intervention per uro Chronic hypoxic respiratory failure : STABLE - Remains on home O2. - CXR: elevated RT HemiDiaph+ Basilar Atelectasis. - Resume home albuterol. Heart failure with PrEF: STABLE - No HF symptom at current. - Echo( 10/13): EF 50-55% - Continue home meds. Ambulatory dysfunction - Baseline Fx: uses walker - Living in personal fci - OT/PT: recs rehab Other chronic: HTN- stable, continue home med Hyperlipidemia: Stable, continue home med Hypothyroidism: Stable, continue home 100, TSH 2.2 Coronary artery disease/HLD S/P stent Continue Plavix, statin, propranolol Essential tremors: Continue on propranolol BPH: Continue on dutasteride and tamsulosin Mood disorder: Continue duloxetine, citalopram Total Time Total Time Spent Total Time Spent (In Minutes): <30 Discharge Plan Discharge Items Patient Disposition: Transfer [facility] Living Fac Reason For Visit: HEMATURIA/CONFUSION Discharge Diagnosis: Complicated UTI Resolving hematuria Condition on Discharge: Fair Activity: Per Instructions section Non-emergency contact: Primary Care Provider and Urologist Call non-emergency contact if: your symptoms worsen and your temperature is above 101 Follow-up/Referrals: Marvin White DO [Primary Care Provider] - Diet: Heart Healthy Addtl Attending Provider Instructions: Mr. Starks was admitted to the hospital for fever and confusion following urine procedure, ultimately diagnosed with urine infection, which rapidly progressed to sepsis, that was treated with broad spectrum antibiotics vancomycin and zosyn initially, after which he got better quick. Once urine culture and blood culture results were available, which actually did not show any microorganism, antibiotics were changed to oral cefdinir. He consistently improved in terms of Sepsis/SIRS. He also had blood in in urine, was already on ramos which was irrigated during hospital admission and ultimately became clear on discharge. Urology team also saw him inpatient and recommend him continued ramos's on Discharge and follow urology inpatient. On imaging he was found to have extensive BL kidney stones, however urology do not recommend any active intervention at current status, as he was not obstructing or kidneys were not infected, however recommend follow up with urology in outpatient and discuss management options. At current status the reason for which he was admitted i.e. Urine infection ( specifically Cystitis) with sepsis features and Hematuria( blood in urine) are optimized to discharge him. Physical therapy evaluation in hospital recommends continued physical therapy at rehab as his baseline function has been really worse. Hence we are discharging him to rehab for physical therapy. A discharge summary will be sent to your primary care physician to ensure continuity of care. Please bring this discharge summary with you to your next office appointment so that your provider can review it at that time. Medications: All medication list has been reviewed and reconciled upon discharge to ensure accuracy and continuity of care. An updated list of all your medications is included with your hospital discharge paperwork. Please review this list closely and make note of any changes to your medications. 1. Cefdinir 300 mg BID for 4 more doses( completes 7 days total, for complicated UTI) Follow up appointments: - Make a follow up appointment with your PCP within the next week. It is very important that you follow up with them shortly after discharge from the hospital. - F/u with Urology for continued care. Continue urine catheter( ramos) until Urology f.u - Keep all of your follow up appointments as already scheduled. If you cannot make an appointment, notify your provider. CONTACT YOUR PRIMARY CARE PROVIDER if you experience any of the following - Difficulty following your treatment plan - Difficulty taking any of your medications CALL 911 OR GO TO THE EMERGENCY DEPARTMENT if you experience any of the following: - Sudden, severe abdominal pain or nausea/vomiting - Severe chest pain or chest pain that radiates to your jaw or arm - Sudden, severe shortness of breath or difficulty breathing Pending Studies at Discharge: No Stand-Alone Forms: My [facility] Skilled Items Patient informed of condition?: Yes DNR: No Discharge Level of Care: Acute rehab Communicable Disease: No Discharge Prognosis: Improving Lines: None Urinary Catheter: Yes Medications and DC Order Prescriptions: New cefdinir 300 mg capsule 300 mg PO BID 2 Days Qty: 4 0RF Continued oxybutynin chloride 10 mg tablet extended release 24hr 10 mg PO QAM aspirin 81 mg Tablet,Chewable 81 mg PO QAM polyethylene glycol 3350 [Miralax] 17 gram/dose Powder 17 g PO QAM Rx Instructions: Hold for diarrhea meclizine 12.5 mg tablet 12.5 mg PO Q8H PRN (Reason: Dizziness Or Vertigo) acetaminophen 500 mg Tablet 1,000 mg PO DAILY PRN (Reason: Pain/Fever) magnesium hydroxide [Milk of Magnesia] 400 mg/5 mL Suspension 2,400 mg PO DAILY PRN (Reason: Constipation) finasteride 5 mg Tablet 5 mg PO QAM Deep Sea Nasal 0.65 % Aerosol,[place] 2 spray INTRANASAL QID diclofenac sodium 1 % Gel 2 g TOPICAL TID PRN (Reason: Pain) Rx Instructions: apply to single elbow, wrist or hand; for hand includes palm/fingers/back of hand clopidogrel [Plavix] 75 mg tablet 0 mg PO DAILY Patient Comments: Per medication list this is currently on hold, no restart date listed. 11/10/24 allopurinol 100 mg tablet 200 mg PO QAM acetaminophen [Tylenol Extra Strength] 500 mg tablet 1,000 mg PO BID citalopram 20 mg tablet 20 mg PO QAM duloxetine 60 mg capsule,delayed release(DR/EC) 60 mg PO QAM docusate sodium 100 mg capsule 100 mg PO QPM primidone 50 mg Tablet 25 mg PO DAILY PRN (Reason: Tremor) Qty: 30 0RF primidone 50 mg Tablet 50 mg PO HS Qty: 30 0RF levothyroxine [Synthroid] 100 mcg Tablet 100 mcg PO DAILYBB Qty: 30 0RF furosemide 40 mg tablet 40 mg PO BID Qty: 60 0RF spironolactone 25 mg tablet 12.5 mg PO MOWEFR Qty: 30 0RF pantoprazole 20 mg tablet,delayed release (DR/EC) 20 mg PO QAM Qty: 30 0RF tamsulosin 0.4 mg capsule 0.4 mg PO HS Qty: 30 0RF montelukast [Singulair] 10 mg Tablet 10 mg PO QAM Qty: 30 0RF albuterol sulfate 90 mcg/actuation HFA aerosol inhaler 2 inh INHALATION Q2H PRN (Reason: Wheezing) Qty: 8.5 0RF Rx Instructions: last filled 11/08/23 25 day supply propranolol 20 mg Tablet 20 mg PO TID Qty: 90 0RF rosuvastatin 5 mg tablet 5 mg PO QAM Qty: 30 0RF Combivent Respimat 20-100 mcg/actuation mist 1 puff INHALATION QID Qty: 4 0RF Discontinued sulfamethoxazole-trimethoprim [Bactrim DS] 800-160 mg Tablet 1 tab PO BID Rx Instructions: Start Date 11/09/24 - End Date 11/12/24 Discharge Orders: Discharge Order (Routine); Ordered 11/15/24 Ordered By: Marta John/Other Patient Handouts: ED Bladder Infection, Male (Adult) Admission Data Admit Date/Time: 11/10/24 11:19 Attending Provider: Antonio Schumacher Admit Provider: Marta Finn Primary Care Provider: Marvin White Other Providers: Luigi Thayer Supervising Physician Co-Signing Physician Notes I personally examined the patient and verified all sanderson points of history and exam, discussed case, and agree with decision making with Dr Huma Fortunately able to return to his personal care. No new problems. Vitals noted, in general he is awake and in no distress, pleasant and conversational. No distress. HEENT normocephalic atraumatic mucous membranes moist. Breathing unlabored no accessory muscle use good effort. Skin without rashes pallor or icterus. Ramos draining clear urine, irrigation is off. UTI with sepsis present on admissionstatus post urologic procedure, potentially a complication of care; along with altered mental status that is likely metabolic encephalopathy related to the UTI/sepsis. Continue empiric antibiotic coveragehowever, given that he was not severe sepsis or septic shock, and cultures are negative (unfortunately after antibiotics) I doubt there is need for MRSA or pseudomonal coveragedowngraded to third-generation cephalosporin and following. he is doing well in this regard. safe/stable for return to personal care. Finish out antibiotic course. Outpatient urology follow-up (I believe it is already scheduled) Ramos drainage at least until outpatient urology follow-up. Chronic hypoxic respiratory failure on 3 L of oxygencontinue. DVT prophylaxisSCDs (pharmacologic on hold given hematuria) Resident Activity Tracking Resident Involvement: Resident Care Provided Care Provided: Adult Hospital Medicine
--- NOTE | 2024-11-15 16:52 | Billing Data ---
Date of Service November 15, 2024 Coding Level of Care Code 39457 IN/OBS DISCH 30 MIN/LESS
--- NOTE | 2024-11-15 17:17 | Hospitalist Progress Note ---
Date of Service November 15, 2024 Assessment & Plan (1) Nephrolithiasis: (2) Gross hematuria: (3) (HFpEF) heart failure with preserved ejection fraction: (4) Ambulatory dysfunction: (5) Acute and chronic respiratory failure: (6) Hypertension: (7) Hyperlipidemia: (8) Sepsis: Plan Mr. Starks with PMH of BPH with LUTS, essential tremor, tenth rib fracture, fall, Ambulatory dysfunction, Heart failure with pre EF, pre EF, Chronic respiratory failure, Dizziness, Kidney stones, CHRF, COPD, O2 dependance, Depression, Spinal stenosis presented to ED with h/o fever, confusion after urologic procedure, done 1 day before admission. Work up in ED revealed elevated WBCs and multiple stones in BL Kidneys with normal creatinine. Post admission patient rapidly progressed to SIRS despite IV Zosyn. Admitted for Urosepsis management. Got better very quick, Urine/ blood culture unremarkable. Oral cefdinir started yesterday. Hematuria clearing up with irrigation. Urosepsis *Improved. - WBCs stable - Urine CS/ Blood CS: unremarkable 24 hour reading - Continue catheter Plan: Cefdinir BID for total 7 days. Stable for DC. Pending placement Gross Hematuria - Urine looks trolley cleaner this AM; Nursing doing intermittent. - DC with ramos Nephrolithiasis - Extensive BL Nephrolithiasis - Creatinine: WNL - No active intervention per uro Chronic hypoxic respiratory failure - Remains on home O2. - Will monitor SpO2. - CXR: elevated RT HemiDiaph+ Basilar Atelectasis. - Resume home albuterol. Heart failure with PrEF: - No HF symptom at current. - Echo( 10/13): EF 50-55% - Continue home meds. Ambulatory dysfunction - Baseline Fx: uses walker - Living in personal custodial. - Fall precaution ongoing. - OT/PT: recommends rehab. HTN- stable, continue home med Hyperlipidemia: Stable, continue home med Hypothyroidism: Stable, continue home 100, TSH 2.2 Coronary artery disease/HLD S/P stent Continue Plavix, statin, propranolol Essential tremors: Continue on propranolol BPH: Continue on dutasteride and tamsulosin Mood disorder: Continue duloxetine, citalopram Dispo: Transportation issue for Discharge today DVT prophylaxis: SCDs Code Status: Full Admission and Anticipated Discharge Date Admission Date: November 10, 2024 Subjective Remains stable. Expresses feels better, few episodes of diarrhoea this am. No fever, cough, sob. Per RN was clearing throat while eating and expressed he was eating puree diet in [facility]. No choking though. Physical Exam Physical Exam: Constitutional: O2 via NC, Frail appearing, Sleeping comfortable in bed, No acute distress, Pale looking. HEENT: Atraumatic, Normocephalic CVS: S1 S2, murmur+, Regular Rhythm, no LE edema Respiratory: BL decreased air entry with Prolonged VBS. No wheezes, No rhonchi or crackles. No increased work of breathing GI: Soft, Nondistended, Nontender, Normal Bowel sounds + : Ramos in situ, urine clearing up. MSK: No gross deformities noted Skin: Warm, Dry, No rashes. Results & Data Results & Data Vital Signs (Past 12 Hours) Vital Signs Temp Pulse Resp BP Pulse Ox O2 Del Method O2 Flow Rate 11/15/24 15:33 62 18 97 Nasal Cannula 2 11/15/24 15:08 36.8 C 79 18 137/91 93 Room Air 11/15/24 11:45 Nasal Cannula 3 11/15/24 11:06 67 18 96 Nasal Cannula 2 11/15/24 08:06 61 17 93 Nasal Cannula 3 11/15/24 07:55 37.0 C 79 20 113/70 95 Room Air Resident Activity Tracking Resident Involvement: Resident Care Provided Care Provided: Adult Hospital Medicine
[2024-11-15] MEDS: MELATONIN 3 MG TAB PO PRN (22:06)
[2024-11-16 11:59] VITALS: BP 135/79; TEMP 97.7
[2024-11-16 15:25] VITALS: PULSE 66; RESP 16; O2SAT 93
--- NOTE | 2024-11-16 16:55 | Billing Data ---
Date of Service November 16, 2024 Coding Level of Care Code 79433 IN/OBS DISCH 30 MIN/LESS
--- NOTE | 2024-11-16 16:55 | Billing Data ---
Date of Service November 15, 2024 Coding Level of Care Code 12742 SUB INP/OBS CARE Comment disregard [id number] on 11/15
== END 2024-11-16 18:33 | disposition home or self-care (01) | DRG 862 ==
LOC: ED 05:20 → 2N 11:19 → SUATTDRO 11:19 → 2N 12:26

== ENCOUNTER 2024-11-17 17:38 | Inpatient (IN) ==
--- NOTE | 2024-11-17 18:04 | Emergency Department Note ---
History of Present Illness General Chief complaint: Illness Stated complaint: Illness Time Seen by Provider: 11/17/24 17:48 History of Present Illness Provider complaint: Illness 84-year-old male presents emergency department for illness. Patient is from detention. Patient reports abdominal pain. Patient reports diarrhea. No melena hematochezia. No chest pain. Patient using oxygen more than usual. Home Medications Medication Instructions Recorded Confirmed Type docusate sodium 100 mg capsule 100 mg PO QPM 05/28/24 11/17/24 History albuterol sulfate 90 mcg/actuation 2 inh inhalation Q2H PRN Wheezing 07/04/24 11/17/24 Rx aerosol inhaler #8.5 grams furosemide 40 mg tablet 40 mg PO BID #60 tabs 07/04/24 11/17/24 Rx ipratropium 20 mcg-albuterol 100 1 puff inhalation QID #4 grams 07/04/24 11/17/24 Rx mcg/actuation mist for inhalation (Combivent Respimat) levothyroxine 100 mcg tablet 100 mcg PO DAILYBB #30 tabs 07/04/24 11/17/24 Rx (Synthroid) montelukast 10 mg tablet 10 mg PO QAM #30 tabs 07/04/24 11/17/24 Rx (Singulair) pantoprazole 20 mg tablet,delayed 20 mg PO QAM #30 tabs 07/04/24 11/17/24 Rx release primidone 50 mg tablet 25 mg (1/2 x 50 mg) PO DAILY PRN 07/04/24 11/17/24 Rx Tremor #30 tabs primidone 50 mg tablet 50 mg PO HS #30 tabs 07/04/24 11/17/24 Rx propranolol 20 mg tablet 20 mg PO TID #90 tabs 07/04/24 11/17/24 Rx rosuvastatin 5 mg tablet 5 mg PO QAM #30 tabs 07/04/24 11/17/24 Rx spironolactone 25 mg tablet 12.5 mg (1/2 x 25 mg) PO MOWEFR 07/04/24 11/17/24 Rx #30 tabs tamsulosin 0.4 mg capsule 0.4 mg PO HS #30 caps 07/04/24 11/17/24 Rx acetaminophen 500 mg tablet 1,000 mg PO DAILY PRN Pain/Fever 11/10/24 11/17/24 History acetaminophen 500 mg tablet 1,000 mg PO BID Chronic pain 11/10/24 11/17/24 History (Tylenol Extra Strength) allopurinol 100 mg tablet 200 mg PO QAM 11/10/24 11/17/24 History aspirin 81 mg chewable tablet 81 mg PO QAM 11/10/24 11/17/24 History citalopram 20 mg tablet 20 mg PO QAM 11/10/24 11/17/24 History clopidogrel 75 mg tablet (Plavix) 75 mg PO QAM 11/10/24 11/17/24 History diclofenac sodium 1 % topical gel 2 g topical TID PRN Pain 11/10/24 11/17/24 History duloxetine 60 mg capsule,delayed 60 mg PO QAM 11/10/24 11/17/24 History release finasteride 5 mg tablet 5 mg PO QAM 11/10/24 11/17/24 History magnesium hydroxide 400 mg/5 mL 2,400 mg PO DAILY PRN Constipation 11/10/24 11/17/24 History oral suspension (Milk of Magnesia) meclizine 12.5 mg tablet 12.5 mg PO Q8H PRN Dizziness Or 11/10/24 11/17/24 History Vertigo oxybutynin chloride 10 mg 10 mg PO QAM 11/10/24 11/17/24 History tablet,extended release 24 hr polyethylene glycol 3350 17 17 g PO QAM 11/10/24 11/17/24 History gram/dose oral powder (Miralax) sodium chloride 0.65 % nasal spray 2 spray intranasal QID 11/10/24 11/17/24 History aerosol (Deep Sea Nasal) cefdinir 300 mg capsule 300 mg PO BID for 2 days 11/17/24 11/17/24 History Allergies Allergy/AdvReac Type Severity Reaction Status Date / Time tramadol AdvReac Intermediate Hallucinati Verified 03/12/23 02:38 ng grapefruit AdvReac Unknown WAS TOLD Verified 03/12/23 02:38 NOT TO TAKE BECAUSE OF CHOLESTROL PILL. Past Med/Surg History Problem List (Updated 11/18/24 @ 02:22 by Sadiq Louis MD) Cystitis Acute on chronic hypoxic respiratory failure Diarrhea Sepsis Nephrolithiasis (Acute) Gross hematuria (Acute) BPH NOS w ur obs/LUTS Gross hematuria Disabling essential tremor Fracture of left tenth rib Abnormal urinalysis Leukocytosis (Acute) Fall (Acute) (HFpEF) heart failure with preserved ejection fraction BPH (benign prostatic hyperplasia) Ambulatory dysfunction (Acute) Weakness (Acute) Back pain Chronic respiratory failure (Acute) Dizziness (Acute) Fall (Acute) Kidney stones ONE PRESENT/NO PROBLEMS WITH Hematuria Ambulatory dysfunction (Acute) Chronic hypoxic respiratory failure, on home oxygen therapy (Acute) Fall (Acute) Dizziness (Acute) Leukocytosis (Acute) Ambulatory dysfunction (Acute) Generalized weakness (Acute) COPD (chronic obstructive pulmonary disease) (Chronic) Physical deconditioning (Acute) Dependence on supplemental oxygen (Acute) Fall Elevated hemidiaphragm Pneumonia Scoliosis (Acute) Right heart failure Hypokalemia (Acute) Acute and chronic respiratory failure Chronic obstructive pulmonary disease Depression Hyperlipidemia Hypertension Shortness of breath (Acute) Pulmonary edema (Acute) Acute exacerbation of CHF (congestive heart failure) (Acute) Encounter for pre-operative examination Spinal stenosis (Chronic) Encounter for pre-operative examination Acute respiratory failure (Acute) Shortness of breath Leukocytosis Aspiration into airway Medical History Mood disorder Bilateral shoulder pain Fall Acute on chronic respiratory failure with hypoxemia Acute and chronic respiratory failure with hypercapnia Pulmonary embolism COVID-19 Choking REASON FOR UPCOMING PROCEDURE PER PT Ankle swelling PT PLANS TO DISCUSS WITH PT REPORTS DR HAD HIM STOP FLUID PILL AND NOT SURE WHY Infected dental caries Subperiosteal abscess of jaw Acute periodontal abscess Pain, dental Generalized muscle weakness Lower urinary tract symptoms (LUTS) Hypoxia DVT prophylaxis Chronic right-sided heart failure Fall HX, NOT RECENTLY Cervical spine fracture LAST SUMMER NO LIMITATIONS SOB (shortness of breath) on exertion with wheezing Scoliosis Chronic back pain GERD (gastroesophageal reflux disease) Hypothyroidism On anticoagulant therapy plavix daily 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 Myocardial Infarction 2009 Sleep apnea uses 4 L N/C MOSTLY ALL THE TIME On home oxygen therapy 3-4 L CONTINUOUS MOSTLY, AND PRN PER PT COPD (chronic obstructive pulmonary disease) Dyslipidemia HTN (hypertension) Surgical History Hx of oral surgery (07/05/21) Multiple Teeth Extractions for Facial Infection - Sin Chacko DMD NO CURRENT INFECTION PER PT (PAT CALL 08/18/21) History of testicular surgery "sac full of blood in testicle drained at 26 yrs old" History of heart artery stent x1 2010--[facility] [place] History of open reduction and internal fixation (ORIF) procedure left foot fx/pinky toe fx--hardware in place History of lithotripsy Hx of vasectomy Hx of right inguinal hernia repair History of colonoscopy History of esophagogastroduodenoscopy (EGD) History of wisdom tooth extraction History of tonsillectomy History of bilateral cataract extraction History of cardiac cath 2010 @ [facility] [place] with 1 stent--follows with Dr. Ramirez Stented coronary artery "bare metal stent to LAD 2008" Family History Sister Family history of reaction to anesthesia nausea/vomiting Mother Family history of diabetes mellitus Social History Smoking Status: Former smoker Tobacco Type: Pipe Cigarettes Per Day: SMOKED PIPE/CIGAR AGE 21'S; Second Hand Exposure: No; Do You Dip or Chew Tobacco: No; Hx Alcohol Use: No Hx Substance Use: No Preferred Language: Uzbek Communication Ability: Effective Communication Tools: Other Visual Impairment: No Limitations Sales Clerk Required: No Beliefs That Will Affect Care: None marital status: Current Living Situation: Long-Term Current Living Situation Comment: [facility] How many Children do You have: 1 Feels Safe at Home: Yes Safety Concerns: Feels Safe At This Time Assistive Devices: Walker Physical Exam Vital Signs Vital Signs - 24 hr 11/17/24 17:43 11/17/24 17:46 11/17/24 17:48 Temperature 37.1 C Temperature Source Oral Pulse Rate 63 Pulse Rate [Forehead] Pulse Rate from SpO2 Sensor Respiratory Rate 18 Respiratory Effort / Characteristics Non-Labored Respiratory Depth Normal Respiratory Pattern Blood Pressure 119/71 125/74 125/74 Blood Pressure [Right Arm] Blood Pressure Mean 82 85 91 Blood Pressure Mean [Right Arm] Pulse Oximetry 91 Oxygen Delivery Method Nasal Cannula Oxygen Flow Rate 4 Sepsis Recent Fever Within 48 Hours No Sepsis New/Unexplained Change in Mental Status No Sepsis Action Taken by Nursing No Action Required 11/17/24 17:48 11/17/24 17:52 11/17/24 17:57 Temperature 37.1 C Temperature Source Oral Pulse Rate 62 63 Pulse Rate [Forehead] 91 H Pulse Rate from SpO2 Sensor 63 Respiratory Rate 18 27 H Respiratory Effort / Characteristics Non-Labored Respiratory Depth Normal Respiratory Pattern Blood Pressure Blood Pressure [Right Arm] 125/74 Blood Pressure Mean Blood Pressure Mean [Right Arm] 91 Pulse Oximetry 95 76 L Oxygen Delivery Method Nasal Cannula Oxygen Flow Rate 4 Sepsis Recent Fever Within 48 Hours Sepsis New/Unexplained Change in Mental Status Sepsis Action Taken by Nursing 11/17/24 18:07 11/17/24 21:13 11/17/24 22:04 Temperature Temperature Source Pulse Rate 60 65 Pulse Rate [Forehead] 64 Pulse Rate from SpO2 Sensor Respiratory Rate 18 17 Respiratory Effort / Characteristics Non-Labored Spontaneous Respiratory Depth Normal Respiratory Pattern Regular Blood Pressure Blood Pressure [Right Arm] 136/79 Blood Pressure Mean Blood Pressure Mean [Right Arm] 98 Pulse Oximetry 98 96 Oxygen Delivery Method Nasal Cannula Room Air Oxygen Flow Rate 4 Sepsis Recent Fever Within 48 Hours Sepsis New/Unexplained Change in Mental Status Sepsis Action Taken by Nursing Physical Exam HENT: Exam performed. - Head: Normocephalic and atraumatic. EYES: Conjunctivae and EOM are normal. Right eye exhibits no discharge. Left eye exhibits no discharge. No scleral icterus. NECK: Normal range of motion. Neck supple. No JVD present. CV: Normal rate, regular rhythm, normal heart sounds and intact distal pulses. There is no peripheral edema. Palpable radial pulses bue. PULM/CHEST: Effort normal and breath sounds normal. No respiratory distress. No stridor. no wheezes. no rales. ABD: The abdomen is soft. Pain on palpation of the right lower quadrant and left lower quadrant : Ibrahim catheter in place NEURO: Motor and sensation grossly intact. Tremor which is at baseline. Course Course 1748: The patient was evaluated in room B5. A complete history and physical exam was performed Cardiac monitoring: An order was placed for continuous cardiac monitoring. The monitor shows a rate of 70 with junctional rhythm interpreted by me 2130:Vital signs stable. Labs show leukocytosis of 14.9. VBG unremarkable. Imaging was concerning for intense information of the urinary bladder and inflammation of the renal pelvis. Patient be evaluated by the [facility] hospitalist team for admission. Administered Medications Vancomycin HCl 1,500 mg/ (Sodium Chloride) 530 mls @ 200 mls/hr IV NOW ONE Stop: 11/18/24 03:38 Last Admin: 11/18/24 01:31 Dose: 200 mls/hr Documented By: OTILIO Lactated Ringer's (Lr) 1,000 mls @ 65 mls/hr IV .[id number] SAHIL Stop: 11/18/24 16:00 Last Admin: 11/18/24 01:30 Dose: 65 mls/hr Documented By: OTILIO Discontinued Medications Piperacillin Sod/Tazobactam Sod (Zosyn) 4.5 gm in 100 mls @ 200 mls/hr IV NOW STA; Protocol Stop: 11/18/24 01:23 Last Admin: 11/18/24 01:52 Dose: 200 mls/hr Documented By: OTILIO Ioversol (Optiray 320 100ml) 90 ml IV ONCE ONE Stop: 11/17/24 19:08 Last Admin: 11/17/24 19:07 Dose: 90 ml Documented By: JAYLENE Medical Decision Making Laboratory Data Attestation: I reviewed the patient's lab results. 11/17/24 17:55 11/17/24 17:55 Lab Results 11/17/24 11/17/24 11/17/24 Range/Units 17:54 17:55 18:22 WBC 14.91 H (4.8-10.8) K/ul RBC 4.31 L (4.70-6.10) M/uL Hgb 13.3 L (14.0-18.0) g/dl POC Hgb 13.6 L (14.0-18.0) g/dl Hct 39.9 L (42.0-52.0) % POC Hct 40 L (42-52) % MCV 92.6 (80.0-100.0) fL MCH 30.9 (25.0-34.0) pg MCHC 33.3 (32.0-36.0) g/dL RDW Std Deviation 48.1 H (36.4-46.3) fL RDW Coeff of Mannie 14.3 (11.5-14.5) % Plt Count 287 (130-400) K/uL MPV 9.6 (9.4-12.4) fL Immature Gran % (Auto) 1.4 % Neut % (Auto) 74.1 % Lymph % (Auto) 12.0 % [place] % (Auto) 8.5 % Eos % (Auto) 3.7 % Baso % (Auto) 0.3 % Neut # (Auto) 11.04 H (1.40-6.50) K/uL Lymph # (Auto) 1.79 (1.20-3.40) K/uL [place] # (Auto) 1.27 H (0.11-0.59) K/uL Eos # (Auto) 0.55 H (0.00-0.50) K/uL Baso # (Auto) 0.05 (0.00-0.20) K/uL Immature Gran # (Auto) 0.21 H (0.01-0.20) K/uL PT 10.9 (9.0-12.0) Seconds INR 1.0 (0.9-1.1) APTT 31 (21-31) Seconds PTT Ratio 1.2 VBG pH 7.44 H (7.36-7.41) VBG pCO2 60 H (38-50) mmHg VBG pO2 < 20 mmHg VBG HCO3 41 mmol/L VBG O2 Saturation < 60.0 % VBG Base Excess 13.8 mEq/L POC Sodium 138 (135-144) mmol/L Sodium 138 (136-145) mmol/L POC Potassium 3.8 (3.3-5.0) mmol/L Potassium 3.8 (3.5-5.1) mmol/L POC Chloride 95 L (101-112) mmol/L Chloride 96 L (98-107) mmol/L Carbon Dioxide 35 H (21-32) mmol/L POC Total CO2 33 H (24-31) mmol/L Anion Gap 7 (3-11) POC Anion Gap 15.0 L (16-25) mmol/L POC BUN 4 L (7-18) mg/dl BUN 6 (6-23) mg/dl Creatinine 0.76 (0.6-1.4) mg/dl POC Creatinine 0.9 (0.6-1.3) mg/dl Est Cr Clr Drug Dosing 73.6 ml/min eGFR 89.18 BUN/Creatinine Ratio 7.9 L (10-20) Glucose 112 H (70-99(Fasting)) mg/dl POC Glucose (other) 113 H (70-99) mg/dl Lactate 1.0 (0.4-2.0) mmol/L Calcium 9.4 (8.6-10.3) mg/dl POC Ioniz Calcium Álvaro 1.13 (1.12-1.32) mmol/l Magnesium 2.0 (1.7-2.4) mg/dl Total Bilirubin 0.5 (0.2-1.0) mg/dl Direct Bilirubin 0.1 (0-0.2) mg/dl AST 12 L (13-39) U/L ALT 8 (7-52) U/L Alkaline Phosphatase 92 (34-104) U/L Troponin I High Sens 9.3 (0-20) pg/ml B-Natriuretic Peptide 57 (0-100) pg/ml Total Protein 7.6 (6.0-8.3) gm/dl Albumin 3.9 (3.4-5.0) gm/dl Procalcitonin 0.07 (0-0.5) ng/ml Adenovirus (PCR) Not Detected (NotDetected) B. pertussis DNA (PCR) Not Detected (NotDetected) B.parapertussis DNA PCR Not Detected (NotDetected) C. pneumoniae DNA (PCR) Not Detected (NotDetected) Coronavirus OC43 (PCR) Not Detected (NotDetected) Coronavirus HKU1 (PCR) Not Detected (NotDetected) Coronavirus 229E (PCR) Not Detected (NotDetected) SARS-CoV-2 (PCR) Not Detected (NotDetected) Coronavirus NL63 (PCR) Not Detected (NotDetected) Human Metapneumovir PCR Not Detected (NotDetected) Influenza Type A (PCR) Not Detected (NotDetected) Influenza Type B (PCR) Not Detected (NotDetected) M. pneumoniae (PCR) Not Detected (NotDetected) Parainfluenza 1 (PCR) Not Detected (NotDetected) Parainfluenza 2 (PCR) Not Detected (NotDetected) Parainfluenza 3 (PCR) Not Detected (NotDetected) Parainfluenza 4 (PCR) Not Detected (NotDetected) RSV (PCR) Not Detected (NotDetected) Entero/Rhino (PCR) Not Detected (NotDetected) Imaging Data Radiologist's Impression: Chest X-Ray 11/17/24 17:52 EXAM: Portable AP chest radiograph TECHNIQUE: AP portable radiograph of the chest was obtained. INDICATION: Shortness of breath Comparison: Chest radiograph November 10, 2024 FINDINGS: LINES and TUBES: None CARDIOVASCULAR: Cardiac silhouette is stably enlarged in size. LUNGS/PLEURA: Patchy bibasilar densities are overall similar to previous and may represent atelectasis though difficult to exclude mild pneumonia. Mild pulmonary vascular congestion and chronic interstitial lung changes are similar to the prior. No significant pleural fluid. No discernible pneumothorax. Unchanged elevation of the right hemidiaphragm. OSSEOUS/OTHER: No displaced acute osseous process identified. Scoliosis IMPRESSION: Patchy bibasilar densities are overall similar to previous and may represent atelectasis though difficult to exclude mild pneumonia. Electronically signed by Zion Martinez 11-17-2024 6:56 PM Abdomen/Pelvis CT 11/17/24 17:53 CT ABDOMEN and PELVIS with INTRAVENOUS CONTRAST HISTORY: Abdominal pain TECHNIQUE: CT abdomen and pelvis with contrast. IV CONTRAST: 100 mL of OMNIPAQUE 300 ENTERIC CONTRAST: Not Given COMPARISON: CT abdomen pelvis June 17, 2024 FINDINGS: LOWER CHEST: Unchanged elevation of the right hemidiaphragm. Confluent densities in the lung bases have increased from previous and may represent combination of atelectasis and pneumonia. Small pleural fluids. LIVER: No focal lesion identified. GALLBLADDER/BILIARY: Cholelithiasis without evidence for cholecystitis. No abnormal biliary dilatation. SPLEEN: Calcified granulomas. PANCREAS: Unremarkable. ADRENALS: Unremarkable. KIDNEYS: Unchanged partially obstructing 1.5 cm stone in the left renal pelvis with unchanged mild distention of the calyces. There are also unchanged inflammatory changes to the renal pelvis with wall enhancement. As before, the ureter is normal in caliber bilaterally. Also there are right renal pelvis calculus measuring 9 mm and a right intrarenal calculus measuring 5 mm that are unchanged. The right renal pelvis also demonstrates mild inflammatory changes that are similar to previous. Tiny 1 mm left kidney midpole calculus is also unchanged Large cortical and parapelvic cysts of the kidneys. PERITONEUM/RETROPERITONEUM. No lymphadenopathy by size criteria. No aortic aneurysm. GASTROINTESTINAL: No obstruction. Colonic diverticulosis without evidence of diverticulitis. Normal appendix. REPRODUCTIVE: Prostamegaly with central cystic change which may be due to interval TURP URINARY BLADDER: Intense information of the urinary bladder with wall thickening and perivesical inflammation intraluminal air likely related to current instrumentation ABDOMINAL WALL small fat-containing umbilical and left inguinal hernias BONES: No acute findings. Severe scoliosis. Healing lower rib fractures IMPRESSION: Intense inflammation of the urinary bladder is consistent with cystitis. Unchanged inflammation of the left greater than right renal pelvi and unchanged renal pelvi and intrarenal calculi bilaterally as above. Given these findings, urosepsis may be a consideration. Recommend correlation with urinalysis. Confluent densities in the lung bases have increased from previous and may represent combination of atelectasis and pneumonia. Electronically signed by Zion Martinez 11-17-2024 8:[address] 11/17/24 17:53 CT HEAD: HISTORY: Altered mental status TECHNIQUE: Noncontrast CT examination of the head is performed. Coronal and sagittal reformats were created. COMPARISON: Brain CT May 28, 2024 FINDINGS: There is no evidence of intracranial hemorrhage, focal mass effect or midline shift. No fluid collection is identified. The ventricular system is midline and symmetric. No evidence of acute major vascular territory infarction. No calvarial fracture is identified. Age-related involutional changes of the brain and advanced chronic white matter ischemic changes. The paranasal sinuses and mastoids are well aerated. IMPRESSION: No acute intracranial process identified. Chronic findings as above Electronically signed by Zion Martinez 11-17-2024 8:03 PM ECG Data Attestation: I personally reviewed and interpreted this ECG as follows: Additional Comments: Junctional rhythm with rate of 66. QRS and QTc intervals within normal limits. No ST elevation or ST depression. [facility] Narrative 1748: The patient was evaluated in room B5. A complete history and physical exam was performed Cardiac monitoring: An order was placed for continuous cardiac monitoring. The monitor shows a rate of 70 with junctional rhythm interpreted by me 2130:Vital signs stable. Labs show leukocytosis of 14.9. VBG unremarkable. Imaging was concerning for intense information of the urinary bladder and inflammation of the renal pelvis. Patient be evaluated by the [facility] team for admission. Impression & Plan Weakness Discharge Plan Visit Data Chief Complaint: Illness Stated Complaint: Illness ED Provider: Sadiq Louis Discharge Problem: Weakness Patient Disposition: Admitted As Inpatient Condition: Fair Discharge Instructions Interventions: ED Discharge Assessment Last Done: 11/18/24 00:01
[2024-11-17 18:05] LABS: Base Excess VBG 13.8 mEq/L; HCO3 VBG 41 mmol/L; Oxygen Saturation VBG < 60.0 %; PCO2 VBG 60 mmHg (38-50); PO2 VBG < 20 mmHg; pH VBG 7.44 (7.36-7.41)
[2024-11-17 18:08] LABS: Hematocrit (blood only) 39.9 % (42.0-52.0); Hemoglobin 13.3 g/dl (14.0-18.0); Immature Granulocytes # (auto) 0.21 K/uL (0.01-0.20); Immature Granulocytes % (auto) 1.4 %; Mean Corpuscular Hemoglobin 30.9 pg (25.0-34.0); Mean Corpuscular Volume 92.6 fL (80.0-100.0); Platelet Count 287 K/uL (130-400); RDW Standard Deviation 48.1 fL (36.4-46.3); Red Blood Count 4.31 M/uL (4.70-6.10); White Blood Count 14.91 K/ul (4.8-10.8)
[2024-11-17 18:27] LABS: Alanine Aminotransferase 8.0 U/L (7-52); Albumin Level 3.9 gm/dl (3.4-5.0); Alkaline Phosphatase 92.0 U/L (34-104); Anion Gap 7.0 (3-11); Bilirubin,Total 0.5 mg/dl (0.2-1.0); Blood Urea Nitrogen 6.0 mg/dl (6-23); Calcium 9.4 mg/dl (8.6-10.3); Carbon Dioxide 35.0 mmol/L (21-32); Chloride 96.0 mmol/L (98-107); Creatinine Clr Calc Pharmacy 73.6 ml/min; Glucose 112.0 mg/dl (70-99(Fasting)); Magnesium 2.0 mg/dl (1.7-2.4); Potassium 3.8 mmol/L (3.5-5.1); Sodium 138.0 mmol/L (136-145); Total Protein 7.6 gm/dl (6.0-8.3)
[2024-11-17 18:41] LABS: INR 1.0 (0.9-1.1); Partial Thromboplastin Time 31 Seconds (21-31); Prothrombin Time 10.9 Seconds (9.0-12.0)
--- NOTE | 2024-11-17 18:56 | XRay Report ---
EXAM: Portable AP chest radiograph TECHNIQUE: AP portable radiograph of the chest was obtained. INDICATION: Shortness of breath Comparison: Chest radiograph November 10, 2024 FINDINGS: LINES and TUBES: None CARDIOVASCULAR: Cardiac silhouette is stably enlarged in size. LUNGS/PLEURA: Patchy bibasilar densities are overall similar to previous and may represent atelectasis though difficult to exclude mild pneumonia. Mild pulmonary vascular congestion and chronic interstitial lung changes are similar to the prior. No significant pleural fluid. No discernible pneumothorax. Unchanged elevation of the right hemidiaphragm. OSSEOUS/OTHER: No displaced acute osseous process identified. Scoliosis IMPRESSION: Patchy bibasilar densities are overall similar to previous and may represent atelectasis though difficult to exclude mild pneumonia. Electronically signed by Zion Martinez 11-17-2024 6:56 PM
[2024-11-17] MEDS: OPTIRAY 320 100ml IV ONE (19:07)
[2024-11-17 19:16] LABS: Appearance Urine Clear (Clear); Bacteria Urine Automated None Seen (None Seen); Epithelial Cell Urine Auto 0-2 /hpf (0-2); Glucose Urine UA Negative (Negative); RBC Urine Automated >20 /hpf (0-2); WBC Urine Automated 21-50 /hpf (0-5)
[2024-11-17 19:20] LABS: Chlamydia pneumoniae PCR Not Detected (NotDetected); Coronavirus 229E PCR Not Detected (NotDetected); Coronavirus CoV-2 (COVID19)PCR Not Detected (NotDetected); Coronavirus HKU1 PCR Not Detected (NotDetected); Coronavirus NL63 PCR Not Detected (NotDetected); Coronavirus OC43PCR Not Detected (NotDetected); Human Metapneumovirus PCR Not Detected (NotDetected); Parainfluenza Virus 1 PCR Not Detected (NotDetected); Parainfluenza Virus 2 PCR Not Detected (NotDetected); Parainfluenza Virus 3 PCR Not Detected (NotDetected); Parainfluenza Virus 4 PCR Not Detected (NotDetected); Respiratory Syncytial VirusPCR Not Detected (NotDetected); Rhinovirus/Enterovirus PCR Not Detected (NotDetected)
--- NOTE | 2024-11-17 20:03 | CT Scan Report ---
CT HEAD: HISTORY: Altered mental status TECHNIQUE: Noncontrast CT examination of the head is performed. Coronal and sagittal reformats were created. COMPARISON: Brain CT May 28, 2024 FINDINGS: There is no evidence of intracranial hemorrhage, focal mass effect or midline shift. No fluid collection is identified. The ventricular system is midline and symmetric. No evidence of acute major vascular territory infarction. No calvarial fracture is identified. Age-related involutional changes of the brain and advanced chronic white matter ischemic changes. The paranasal sinuses and mastoids are well aerated. IMPRESSION: No acute intracranial process identified. Chronic findings as above Electronically signed by Zion Martinez 11-17-2024 8:03 PM
--- NOTE | 2024-11-17 20:03 | CT Scan Report ---
CT ABDOMEN and PELVIS with INTRAVENOUS CONTRAST HISTORY: Abdominal pain TECHNIQUE: CT abdomen and pelvis with contrast. IV CONTRAST: 100 mL of OMNIPAQUE 300 ENTERIC CONTRAST: Not Given COMPARISON: CT abdomen pelvis June 17, 2024 FINDINGS: LOWER CHEST: Unchanged elevation of the right hemidiaphragm. Confluent densities in the lung bases have increased from previous and may represent combination of atelectasis and pneumonia. Small pleural fluids. LIVER: No focal lesion identified. GALLBLADDER/BILIARY: Cholelithiasis without evidence for cholecystitis. No abnormal biliary dilatation. SPLEEN: Calcified granulomas. PANCREAS: Unremarkable. ADRENALS: Unremarkable. KIDNEYS: Unchanged partially obstructing 1.5 cm stone in the left renal pelvis with unchanged mild distention of the calyces. There are also unchanged inflammatory changes to the renal pelvis with wall enhancement. As before, the ureter is normal in caliber bilaterally. Also there are right renal pelvis calculus measuring 9 mm and a right intrarenal calculus measuring 5 mm that are unchanged. The right renal pelvis also demonstrates mild inflammatory changes that are similar to previous. Tiny 1 mm left kidney midpole calculus is also unchanged Large cortical and parapelvic cysts of the kidneys. PERITONEUM/RETROPERITONEUM. No lymphadenopathy by size criteria. No aortic aneurysm. GASTROINTESTINAL: No obstruction. Colonic diverticulosis without evidence of diverticulitis. Normal appendix. REPRODUCTIVE: Prostamegaly with central cystic change which may be due to interval TURP URINARY BLADDER: Intense information of the urinary bladder with wall thickening and perivesical inflammation intraluminal air likely related to current instrumentation ABDOMINAL WALL small fat-containing umbilical and left inguinal hernias BONES: No acute findings. Severe scoliosis. Healing lower rib fractures IMPRESSION: Intense inflammation of the urinary bladder is consistent with cystitis. Unchanged inflammation of the left greater than right renal pelvi and unchanged renal pelvi and intrarenal calculi bilaterally as above. Given these findings, urosepsis may be a consideration. Recommend correlation with urinalysis. Confluent densities in the lung bases have increased from previous and may represent combination of atelectasis and pneumonia. Electronically signed by Zion Martinez 11-17-2024 8:03 PM
--- NOTE | 2024-11-17 22:03 | History & Physical Report ---
Date of Service November 17, 2024 Assessment & Plan (1) Diarrhea: (2) Acute on chronic hypoxic respiratory failure: (3) Cystitis: (4) Ambulatory dysfunction: (5) (HFpEF) heart failure with preserved ejection fraction: Plan Pt is an 84 yo male with a past med hx of recent admission with discharge on 11/16 for urosepsis, BPH with LUTS and hx of kidney stones, CAD s/p stent, essential tremor, HFpEF, chronic respiratory failure/granulomatous lung disease/COPD with oxygen dependence, depression, spinal stenosis, hypothyroidism, schatzki's ring of distal esophagus, and ongoing ambulatory dysfunction with multiple admissions due to this who presents to the hospital on 11/17 for worsening hypoxia and diarrhea. #Diarrhea, nonbloody - ongoing for "a few days" per patient - did recently have antibiotic course so will do cdiff testing - monitor electrolytes - supportive care #Acute on chronic hypoxic respiratory failure #COPD/chronic respiratory failure #Hypoxia #Oxygen dependent - pt does have chronic lung disease with hypoxia, O2 dependent at baseline - home oxygen use is 2-4L at times - saturating well on admission on 4L NC at rest but with prolonged talking he does desat to low 80s - CXR notes; "Patchy bibasilar densities are overall similar to previous and may represent atelectasis though difficult to exclude mild pneumonia." - will treat for pneumonia given mild worsening; zosyn + vanc - not wheezy on exam, no cough/increased sputum so no clear COPD exac, so will defer steriods and atypical coverage but if worsens would add these #Cystitis - pt presented with ramos so symptoms hard to assess but is having bladder t enderness - discharged on 11/16 for hospitalization for urosepsis and was treated with zosyn due to CTX resistance noted previously, switched to po cefdinir for remaining course - CT abd on admission; "Intense inflammation of the urinary bladder is consistent with cystitis. Unchanged inflammation of the left greater than right renal pelvi and unchanged renal pelvi and intrarenal calculi bilaterally as above. " - question noninfectious cystitis, increased tamsulosin from 0.4 to 0.8 - consider urology consult - blood and urine cx pending #Ambulatory disfunction - CT head wnl - ongoing issue - PT/OT ordered #Hypothyroidism - continue home medication - am TSH #Umbilical hernia - reducible with ease on admission but slightly tender whe doing so - consider gen surgery f/u on an outpatient basis VTE: heparin SQ to start tomorrow morning, recent hx of hematuria, consider holding if hematuria noted overnight History of Present Illness Chief Complaint: Diarrhea, hypoxia Primary Care Provider: Mavrin White DO Pt is an 84 yo male with a past med hx of recent admission with discharge on 11/16 for urosepsis, BPH with LUTS and hx of kidney stones, CAD s/p stent, essential tremor, HFpEF, chronic respiratory failure/granulomatous lung disease/COPD with oxygen dependence, depression, spinal stenosis, hypothyroidism, schatzki's ring of distal esophagus, and ongoing ambulatory dysfunction with multiple admissions due to this who presents to the hospital on 11/17 for worsening hypoxia and diarrhea. Pt seen at bedside. He states that he is here because the senior care staff wanted him to get evaluated as he has been having diarrhea and feels SOB. He states "if it were up to him, he would not have come in." He states on discharge yesterday he did not feel ready to leave yet. He states he felt weak, more so than normal, and that he has been having diarrhea, but that started before he was discharged from the hospital. He states the senior care told him to come in to "get his oxygen under control." He states today he had about 3-4 episodes of diarrhea which was nonbloody. He denies abdominal pain or cramping. He still has ramos in place which is draining. Allergies Allergy/AdvReac Type Severity Reaction Status Date / Time tramadol AdvReac Intermediate Hallucinati Verified 03/12/23 02:38 ng grapefruit AdvReac Unknown WAS TOLD Verified 03/12/23 02:38 NOT TO TAKE BECAUSE OF CHOLESTROL PILL. Home Medications Medication Instructions Recorded Confirmed Type docusate sodium 100 mg capsule 100 mg PO QPM 05/28/24 11/17/24 History albuterol sulfate 90 mcg/actuation 2 inh inhalation Q2H PRN Wheezing 07/04/24 11/17/24 Rx aerosol inhaler #8.5 grams furosemide 40 mg tablet 40 mg PO BID #60 tabs 07/04/24 11/17/24 Rx ipratropium 20 mcg-albuterol 100 1 puff inhalation QID #4 grams 07/04/2411/17 Rx mcg/actuation mist for inhalation (Combivent Respimat) levothyroxine 100 mcg tablet 100 mcg PO DAILYBB #30 tabs 07/04/24 11/17/24 Rx (Synthroid) montelukast 10 mg tablet 10 mg PO QAM #30 tabs 07/04/24 11/17/24 Rx (Singulair) pantoprazole 20 mg tablet,delayed 20 mg PO QAM #30 tabs 07/04/24 11/17/24 Rx release primidone 50 mg tablet 25 mg (1/2 x 50 mg) PO DAILY PRN 07/04/24 11/17/24 Rx Tremor #30 tabs primidone 50 mg tablet 50 mg PO HS #30 tabs 07/04/24 11/17/24 Rx propranolol 20 mg tablet 20 mg PO TID #90 tabs 07/04/24 11/17/24 Rx rosuvastatin 5 mg tablet 5 mg PO QAM #30 tabs 07/04/24 11/17/24 Rx spironolactone 25 mg tablet 12.5 mg (1/2 x 25 mg) PO MOWEFR 07/04/24 11/17/24 Rx #30 tabs tamsulosin 0.4 mg capsule 0.4 mg PO HS #30 caps 07/04/24 11/17/24 Rx acetaminophen 500 mg tablet 1,000 mg PO DAILY PRN Pain/Fever 11/10/24 11/17/24 History acetaminophen 500 mg tablet 1,000 mg PO BID Chronic pain 11/10/24 11/17/24 History (Tylenol Extra Strength) allopurinol 100 mg tablet 200 mg PO QAM 11/10/24 11/17/24 History aspirin 81 mg chewable tablet 81 mg PO QAM 11/10/24 11/17/24 History citalopram 20 mg tablet 20 mg PO QAM 11/10/24 11/17/24 History clopidogrel 75 mg tablet (Plavix) 75 mg PO QAM 11/10/24 11/17/24 History diclofenac sodium 1 % topical gel 2 g topical TID PRN Pain 11/10/24 11/17/24 History duloxetine 60 mg capsule,delayed 60 mg PO QAM 11/10/24 11/17/24 History release finasteride 5 mg tablet 5 mg PO QAM 11/10/24 11/17/24 History magnesium hydroxide 400 mg/5 mL 2,400 mg PO DAILY PRN Constipation 11/10/24 11/17/24 History oral suspension (Milk of Magnesia) meclizine 12.5 mg tablet 12.5 mg PO Q8H PRN Dizziness Or 11/10/24 11/17/24 History Vertigo oxybutynin chloride 10 mg 10 mg PO QAM 11/10/24 11/17/24 History tablet,extended release 24 hr polyethylene glycol 3350 17 17 g PO QAM 11/10/24 11/17/24 History gram/dose oral powder (Miralax) sodium chloride 0.65 % nasal spray 2 spray intranasal QID 11/10/24 11/17/24 History aerosol (Deep Sea Nasal) cefdinir 300 mg capsule 300 mg PO BID for 2 days 11/17/24 11/17/24 History Past Med/Surg History Problem List (Updated 11/18/24 @ 02:22 by Sadiq Louis MD) Cystitis Acute on chronic hypoxic respiratory failure Diarrhea Sepsis Nephrolithiasis (Acute) Gross hematuria (Acute) BPH NOS w ur obs/LUTS Gross hematuria Disabling essential tremor Fracture of left tenth rib Abnormal urinalysis Leukocytosis (Acute) Fall (Acute) (HFpEF) heart failure with preserved ejection fraction BPH (benign prostatic hyperplasia) Ambulatory dysfunction (Acute) Weakness (Acute) Back pain Chronic respiratory failure (Acute) Dizziness (Acute) Fall (Acute) Kidney stones ONE PRESENT/NO PROBLEMS WITH Hematuria Ambulatory dysfunction (Acute) Chronic hypoxic respiratory failure, on home oxygen therapy (Acute) Fall (Acute) Dizziness (Acute) Leukocytosis (Acute) Ambulatory dysfunction (Acute) Generalized weakness (Acute) COPD (chronic obstructive pulmonary disease) (Chronic) Physical deconditioning (Acute) Dependence on supplemental oxygen (Acute) Fall Elevated hemidiaphragm Pneumonia Scoliosis (Acute) Right heart failure Hypokalemia (Acute) Acute and chronic respiratory failure Chronic obstructive pulmonary disease Depression Hyperlipidemia Hypertension Shortness of breath (Acute) Pulmonary edema (Acute) Acute exacerbation of CHF (congestive heart failure) (Acute) Encounter for pre-operative examination Spinal stenosis (Chronic) Encounter for pre-operative examination Acute respiratory failure (Acute) Shortness of breath Leukocytosis Aspiration into airway Medical History Mood disorder Bilateral shoulder pain Fall Acute on chronic respiratory failure with hypoxemia Acute and chronic respiratory failure with hypercapnia Pulmonary embolism COVID-19 Choking REASON FOR UPCOMING PROCEDURE PER PT Ankle swelling PT PLANS TO DISCUSS WITH DR PT REPORTS DR HAD HIM STOP FLUID PILL AND NOT SURE WHY Infected dental caries Subperiosteal abscess of jaw Acute periodontal abscess Pain, dental Generalized muscle weakness Lower urinary tract symptoms (LUTS) Hypoxia DVT prophylaxis Chronic right-sided heart failure Fall HX, NOT RECENTLY Cervical spine fracture LAST SUMMER NO LIMITATIONS SOB (shortness of breath) on exertion with wheezing Scoliosis Chronic back pain GERD (gastroesophageal reflux disease) Hypothyroidism On anticoagulant therapy plavix daily 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 Myocardial Infarction 2009 Sleep apnea uses 4 L N/C MOSTLY ALL THE TIME On home oxygen therapy 3-4 L CONTINUOUS MOSTLY, AND PRN PER PT COPD (chronic obstructive pulmonary disease) Dyslipidemia HTN (hypertension) Surgical History Hx of oral surgery (07/05/21) Multiple Teeth Extractions for Facial Infection - Sin Chacko DMD NO CURRENT INFECTION PER PT (PAT CALL 08/18/21) History of testicular surgery "sac full of blood in testicle drained at 26 yrs old" History of heart artery stent x1 2009--[facility] [place] History of open reduction and internal fixation (ORIF) procedure left foot fx/pinky toe fx--hardware in place History of lithotripsy Hx of vasectomy Hx of right inguinal hernia repair History of colonoscopy History of esophagogastroduodenoscopy (EGD) History of wisdom tooth extraction History of tonsillectomy History of bilateral cataract extraction History of cardiac cath 2009 @ [facility] [place] with 1 stent--follows with Dr. Ramirez Stented coronary artery "bare metal stent to LAD 2008" Family History Sister Family history of reaction to anesthesia nausea/vomiting Mother Family history of diabetes mellitus Social History Smoking Status: Former smoker Tobacco Type: Pipe Cigarettes Per Day: SMOKED PIPE/CIGAR AGE 21'S; Second Hand Exposure: No; Do You Dip or Chew Tobacco: No; Hx Alcohol Use: No Hx Substance Use: No Preferred Language: Faroese Communication Ability: Effective Communication Tools: Other Visual Impairment: No Limitations Corn Shredder Required: No Beliefs That Will Affect Care: None marital status: Current Living Situation: Senior Care Current Living Situation Comment: [facility] How many Children do You have: 1 Feels Safe at Home: Yes Safety Concerns: Feels Safe At This Time Assistive Devices: Oxygen - Continuous and Walker Review of Systems Review of Systems: Per HPI. Physical Exam Physical Exam: General: Alert, no acute distress, pleasant HEENT: Normocephalic, moist oral mucosa, Cardio: Regular rate and rhythm, Resp: Lungs mostly clear to auscultation b/l, no wheezes, faint bibasilar rhonchi, GI: Soft, nondistended, umbilical hernia noted that is reducible with some discomfort, some tenderness over the area of the bladder, bowel sounds active Skin: Warm, pink, dry, Results & Data Results & Data Vital Signs (Past 12 Hours) Vital Signs Temp Pulse Pulse Resp BP BP Pulse Ox 11/17/24 21:13 64 17 136/79 96 11/17/24 18:07 60 18 98 11/17/24 17:57 63 27 H 76 L 11/17/24 17:52 62 11/17/24 17:48 37.1 C 91 H 18 125/74 95 11/17/24 17:48 37.1 C 63 18 125/74 91 11/17/24 17:46 125/74 11/17/24 17:43 119/71 O2 Del Method O2 Flow Rate 11/17/24 21:13 Room Air 11/17/24 18:07 Nasal Cannula 4 11/17/24 17:57 11/17/24 17:52 11/17/24 17:48 Nasal Cannula 4 11/17/24 17:48 Nasal Cannula 4 11/17/24 17:46 11/17/24 17:43 Supervising Physician Co-Signing Physician Notes Attending addendum: I have physically seen this patient, have supervised the medical residents activities, and agree with the H&P unless as otherwise noted. Assessment and Plan: The patient is an 84-year-old male with past medical history including recent admission and discharged on 11/16 for sepsis due to UTI, BPH with LUTS, kidney stone, CAD status post stent, essential tremor, HFpEF, chronic respiratory failure/predominant lung disease/COPD with oxygen dependence, depression, spinal stenosis, hypothyroidism, Schatzki ring, ambulatory dysfunction with multiple admissions. He presents to the emergency department with worsening hypoxia diarrhea. Nonbloody diarrhea- For few days duration Since recently completed antibiotic, completed C. difficile testing Monitor BMP magnesium levels Supportive care Acute on chronic respiratory failure with hypoxia- COPD/chronic respiratory failure/oxygen dependency- Patient uses 2 to 4 L of oxygen at home as needed Presently doing well on 4 L nasal cannula Chest x-ray likely suggest pneumonia, gets hospital associated Place on vancomycin IV and Zosyn IV Cystitis- Presently has bladder tenderness Follow urine culture and sensitivity Antibiotics as above CT abdomen pelvis (cystitis and unchanged inflammation left greater than right renal pelvis Remaining orders and potation's as noted Resident Activity Tracking Resident Involvement: Resident Care Provided Care Provided: Adult Hospital Medicine
[2024-11-18] MEDS ORDERED: ONDANSETRON INJ 2 MG/ML 2 ML VIAL IV PRN (00:37)
[2024-11-18] MEDS ORDERED: VANCOMYCIN CONSULT ACTIVE PRN (00:37)
[2024-11-18] MEDS ORDERED: ALBUT/IPRATROP 3MG/0.5MG NEB 3 ML VIAL NEB PRN (00:37)
[2024-11-18] MEDS ORDERED: PRIMIDONE 50 MG TAB PO PRN (00:37)
[2024-11-18] MEDS ORDERED: POLYETHYLENE (MIRALAX) 17 GM PACK PO PRN (00:37)
[2024-11-18] MEDS: LACTATED RINGER'S 1,000 ML IV SCH (01:30)
[2024-11-18] MEDS: VANCOMYCIN HCL 1,500 MG in SODIUM CHLORIDE 0.9% 500 ML IV ONE (01:31)
[2024-11-18] MEDS: PIPERACILLIN/TAZOBACTAM 4.5 GM/100 ML BAG IV STA (01:52)
[2024-11-18] MEDS: ACETAMINOPHEN 500 MG TAB PO PRN (03:36)
[2024-11-18] MEDS: LEVOTHYROXINE SODIUM 100 MCG TABLET PO SCH (06:20)
[2024-11-18 07:50] LABS: Hematocrit (blood only) 33.6 % (42.0-52.0); Hemoglobin 11.3 g/dl (14.0-18.0); Immature Granulocytes # (auto) 0.16 K/uL (0.01-0.20); Immature Granulocytes % (auto) 1.4 %; Mean Corpuscular Hemoglobin 31.3 pg (25.0-34.0); Mean Corpuscular Volume 93.1 fL (80.0-100.0); Platelet Count 214 K/uL (130-400); RDW Standard Deviation 47.9 fL (36.4-46.3); Red Blood Count 3.61 M/uL (4.70-6.10); White Blood Count 11.34 K/ul (4.8-10.8)
[2024-11-18] MEDS: Albuterol HFA 8 GM Inhaler (Combivent Respimat P&T Subs) INH SCH (07:50)
[2024-11-18] MEDS: Ipratropium HFA Inhaler (Combivent Respimat P&T Subs) INH SCH (07:50)
[2024-11-18 08:09] LABS: Alanine Aminotransferase 5.0 U/L (7-52); Albumin Globulin Ratio 1.4 (0.9-2); Albumin Level 3.4 gm/dl (3.4-5.0); Alkaline Phosphatase 65.0 U/L (34-104); Anion Gap 7.0 (3-11); Bilirubin,Total 0.7 mg/dl (0.2-1.0); Blood Urea Nitrogen 7.0 mg/dl (6-23); Calcium 8.8 mg/dl (8.6-10.3); Carbon Dioxide 31.0 mmol/L (21-32); Chloride 100.0 mmol/L (98-107); Creatinine Clr Calc Pharmacy 71.6 ml/min; Globulin 2.5 gm/dl (2.5-4.0); Glucose 94.0 mg/dl (70-99(Fasting)); Potassium 3.5 mmol/L (3.5-5.1); Sodium 138.0 mmol/L (136-145); Total Protein 5.9 gm/dl (6.0-8.3)
[2024-11-18] MEDS: OXYBUTYNIN CHLORIDE XL 5 MG TABCR PO SCH (08:20)
[2024-11-18] MEDS: FUROSEMIDE 40 MG TAB PO SCH (08:20)
[2024-11-18] MEDS: MONTELUKAST SODIUM 10 MG TABLET PO SCH (08:20)
[2024-11-18] MEDS: FINASTERIDE 5 MG TAB PO SCH (08:20)
[2024-11-18] MEDS: CITALOPRAM 20 MG TAB PO SCH (08:20)
[2024-11-18] MEDS: PIPERACILLIN/TAZOBACTAM 4.5 GM/100 ML BAG IV SCH (08:20)
[2024-11-18] MEDS: HEPARIN SOD 5,000 UNIT/0.5 ML VIAL SQ SCH (08:20)
[2024-11-18] MEDS: PROPRANOLOL HCL 20 MG TAB PO SCH (08:20)
[2024-11-18 08:29] LABS: Thyroid Stimulating Hormone 3.767 uIu/ml (0.300-4.500)
[2024-11-18] MEDS: VANCOMYCIN 750 MG in SODIUM CHLORIDE 0.9% 250 ML IV SCH (09:00)
[2024-11-18] MEDS ORDERED: IPRATROPIUM BROMIDE/ALBUTEROL respimat INH INH SCH (09:00)
--- NOTE | 2024-11-18 09:46 | Pharmacy Report ---
Pharmacy PK ABX Note - Date of Service November 18, 2024 - Assessment and Plan Assessment 84 year old M receiving vancomycin and zosyn for treatment of pulmonary infection and cystitis. Blood cultures pending, urine culture (-). MRSA nasal ordered. Renal function stable. Day #1 of antimicrobial therapy. Plan Vancomycin * Loading dose: 1500 mg IV x 1 * Maintenance dose: 750 mg IV every 12 hours * Regimen is predicted to achieve target AUC/HARDEEP of 400-600 mg/L.hr * Random level tomorrow AM Pharmacy will continue to follow and will adjust dose/frequency as necessary. Thank you. Pharmacy has transitioned to AUC monitoring for vancomycin. AUC/HARDEEP is the preferred PK/PD target and is associated with decreased risk of nephrotoxicity compared to traditional trough targets.
--- NOTE | 2024-11-18 10:14 | Hospitalist Progress Note ---
Date of Service November 18, 2024 Assessment & Plan (1) Diarrhea: (2) Acute on chronic hypoxic respiratory failure: (3) Cystitis: (4) Ambulatory dysfunction: (5) (HFpEF) heart failure with preserved ejection fraction: Plan Pt is an 84 yo male with a past med hx of recent admission with discharge on 11/16 for urosepsis, BPH with LUTS and hx of kidney stones, CAD s/p stent, essential tremor, HFpEF, chronic respiratory failure/granulomatous lung disease/COPD with oxygen dependence, depression, spinal stenosis, hypothyroidism, schatzki's ring of distal esophagus, and ongoing ambulatory dysfunction with multiple admissions due to this who presents to the hospital on 11/17 for worsening hypoxia and diarrhea. #Diarrhea, nonbloody - ongoing for "a few days" per patient -Improved in loose stools so more suggestive towards antibiotic associated diarrhea or C,diff infection. - did recently have antibiotic course so will do cdiff testing, stool viral panel negative. - monitor electrolytes - supportive care #Acute on chronic hypoxic respiratory failure #COPD/chronic respiratory failure #Hypoxia #Oxygen dependent - pt does have chronic lung disease with hypoxia, O2 dependent at baseline - home oxygen use is 2-4L at times - saturating well on admission on 4L NC at rest but with prolonged talking he does desat to low 80s - CXR notes; "Patchy bibasilar densities are overall similar to previous and may represent atelectasis though difficult to exclude mild pneumonia." - was treated for pneumonia given mild worsening on admission; zosyn + vanc, Will stop vancomycin. Because patient has no acute respiratory issues or never mentioned about having breathing worsening on admission. - not wheezy on exam, no cough/increased sputum so no clear COPD exac. #Cystitis - pt presented with ramos so symptoms hard to assess but is having bladder tenderness - discharged on 11/16 for hospitalization for urosepsis and was treated with zosyn due to CTX resistance noted previously, switched to po cefdinir for remaining course - CT abd on admission; "Intense inflammation of the urinary bladder is consistent with cystitis. Unchanged inflammation of the left greater than right renal pelvi and unchanged renal pelvi and intrarenal calculi bilaterally as above. " - question noninfectious cystitis, increased tamsulosin from 0.4 to 0.8 - Urology consult - blood and urine cx pending - Ordered CRP to see if any inflammation going on as increased wbc of 11.34, If CRp is not concerning, then non specific cause of rise of wbc. #Ambulatory disfunction - CT head wnl - ongoing issue - PT/OT ordered #Hypothyroidism - continue home medication - am TSH #Umbilical hernia - reducible with ease on admission but slightly tender while doing so - consider gen surgery f/u on an outpatient basis VTE: heparin SQ, recent hx of hematuria. Admission and Anticipated Discharge Date Admission Date: November 17, 2024 Supervising Physician Co-Signing Physician Notes I personally examined the patient and verified all sanderson points of history and exam, discussed case, and agree with decision making with Dr Alvarado Feeling okay. No diarrhea today. Belly feels a bit bloated. Breathing feels normal. He is on 2 L nowhe notes normally he is somewhere between 24, but most commonly 3 or 4. No shortness of breath. Still has catheter, but no urinary symptoms. Vitals noted, in general he is awake and alert fatigued but no distress. HEENT normocephalic atraumatic mucous membranes moist. Lungs are clear without rales rhonchi or wheezes no accessory muscles no respiratory distress no conversational dyspnea and he is on 2 L at the time I see him. Abdomen soft mild to moderate distention nontender feels a little bit full throughout, soft reducible umbilical hernia ("that has been there for years"). Skin without rashes pallor or icterus. Diarrheanonspecific. Stool for C. difficile is pending, and this is reasonable given that he has been in the hospital and on antibiotics, but given that he has not had any diarrhea since yesterday, I highly doubt this is C. difficile. On review of the images of his CT, there is a lot of stoolbut it is largely homogenous, so the typical appearance of constipation with overflow does not appear to be there; he was recently on antibiotics, so I wonder about just a regular antibiotic associated diarrhea. Follow. Supportive care. Leukocytosisreally nonspecific. His urinary tract shows inflammatory find ings on CT but his exam and history do not corroborate thisI wonder if it is just residual from his recent procedure and presumed infection that was the crux of his last admission. Pneumonia was entertained, but given that he has chronic hypoxic and hypercapnic respiratory failure, the fact that he is actually better than his usual baseline right now would be completely inconsistent with a pneum onia or an acute exacerbation of COPD, etc. We discussed this in the context of them having a hard time getting a good pulse ox reading on him at [facility] does not appear that he was in respiratory distress at the time, and we discussed that it would be quite odd for him to have worsening respiratory failure superimposed on his baseline of fairly severe chronic lung disease and then get better than his normal so quickly with so little interventionI suspect the pulse ox was just not finding him. Serial exams, stop vancomycin. In regards to the potential for the leukocytosis being related to a urinary tract infection, clinically the picture does not fit except for the CT findings; at the same time, because he was on broad antibiotics before a urine culture was sent during his last admission, it is possible that it was something resistant to the cephalosporin we treated withbut even this is doubtful given that he was on a third-generation cephalosporin for days prior to discharge and continued to do better. His urine is clear/nonbloody at this time. His procalcitonin is low at 0.07, I will add a CRP to his labs to further clarify how inflamed his body is/how nonspecific the white count is. Continue Zosyn for now, but low threshold to return to the third-generation cephalosporin he was on before. Disposition is somewhat difficult as he appears better than whenever I last discharged him, but he was sent back from his personal care. Will need to make sure that they are comfortable with taking care of him. PT/OT eval and treat. Case management assistance appreciated as well. Chronic hypoxic and hypercapnic respiratory failurecontinue oxygen, continue home medications. DVT prophylaxisheparin subcu Subjective Was discharged on 11/16 for urosepsis, Reports having loose stools x 3-4 episodes after the discharge with cramping abdomen, resolved today, mentions he started having loose stools from the hospital. Slight Weakness because of ongoing loose stools. Shoulder pain 4/10 in severity. No pain abdomen, blood in stool, fever, SOB, chest pain. Review of Systems Review of Systems: Per HPI. Physical Exam Physical Exam: General: Alert, no acute distress, pleasant HEENT: Normocephalic, moist oral mucosa, Cardio: Regular rate and rhythm, Resp: Lungs b/l clear to auscultation, no wheezes. GI: Soft, nondistended, umbilical hernia noted that is reducible with some discomfort, some tenderness over the area of the bladder, bowel sounds active Skin: Warm, pink, dry, Results & Data Results & Data Vital Signs (Past 12 Hours) Vital Signs Temp Pulse Pulse Resp BP BP Pulse Ox 11/18/24 08:32 36.6 C 70 18 127/74 94 11/18/24 06:45 62 11/18/24 06:25 11/18/24 01:18 11/18/24 00:59 36.7 C 68 22 125/73 94 11/18/24 00:25 70 11/18/24 00:01 Pulse Ox O2 Del Method O2 Del Method O2 Flow Rate O2 Flow Rate 11/18/24 08:32 Nasal Cannula 2 11/18/24 06:45 11/18/24 06:25 96 Nasal Cannula 2 11/18/24 01:18 Nasal Cannula 4 11/18/24 00:59 Nasal Cannula 3 11/18/24 00:25 11/18/24 00:01 Nasal Cannula 4
--- NOTE | 2024-11-18 10:38 | Billing Data ---
Date of Service November 18, 2024 Coding Level of Care Code 52019 SUB INP/OBS CARE MIN
--- NOTE | 2024-11-18 18:54 | Billing Data ---
Date of Service November 18, 2024 Coding Level of Care Code 35628 INT INP/OBS CARE
[2024-11-18 19:33] LABS: Cdiff Toxin B Gene (2yr or >) Negative Cdiff Gene (Neg)
[2024-11-18 20:10] LABS: Adenovirus F 40/41 PCR Not Detected (NotDetected); Campylobacter PCR Not Detected (NotDetected); Enteroaggregative E.coli(EAEC) Not Detected (NotDetected); Shiga-like Toxin E.coli (STEC) Not Detected (NotDetected); Vibrio species PCR Not Detected (NotDetected)
[2024-11-18] MEDS: TAMSULOSIN HCL 0.4 MG CAP PO SCH (20:19)
[2024-11-18] MEDS: PRIMIDONE 50 MG TAB PO SCH (20:19)
--- NOTE | 2024-11-19 06:02 | Electrocardiogram Report ---
Test Reason : Blood Pressure : */* mmHG Vent. Rate : 66 BPM Atrial Rate : * BPM P-R Int : * ms QRS Dur : 86 ms QT Int : 416 ms P-R-T Axes : * 51 78 degrees QTcB Int : 436 ms Poor data quality, interpretation may be adversely affected Sinus rhythm Nonspecific ST abnormality Possible Septal infarct Abnormal ECG When compared with ECG of 10-Nov-2024 05:32, No significant change Confirmed by Gaston Cannon ([id number]) on 11/19/2024 6:01:34 AM Referred By: Marvin White Confirmed By: Gaston Cannon
--- NOTE | 2024-11-19 07:50 | Hospitalist Progress Note ---
Date of Service November 19, 2024 Assessment & Plan (1) Diarrhea: (2) Acute on chronic hypoxic respiratory failure: (3) Cystitis: (4) (HFpEF) heart failure with preserved ejection fraction: Plan Pt is an 84 yo male with a past med hx of recent admission with discharge on 10/23 6 for urosepsis, BPH with LUTS and hx of kidney stones, CAD s/p stent, essential tremor, HFpEF, chronic respiratory failure/granulomatous lung disease/COPD with oxygen dependence, depression, spinal stenosis, hypothyroidism, schatzki's ring of distal esophagus, and ongoing ambulatory dysfunction with multiple admissions due to this who presents to the hospital on 11/17 for worsening hypoxia and shanda rrhea. #Diarrhea, nonbloody - ongoing for "a few days" per patient - improving - c diff negative, stool viral panel negative. - monitor electrolytes - supportive care #Acute on chronic hypoxic respiratory failure #COPD/chronic respiratory failure #Hypoxia #Oxygen dependent - pt does have chronic lung disease with hypoxia, O2 dependent at baseline - home oxygen use is 2-4L at times - currently on his baseline 2LNC - CXR notes; "Patchy bibasilar densities are overall similar to previous and may represent atelectasis though difficult to exclude mild pneumonia." - was treated for pneumonia given mild worsening on admission; zosyn + vanc, Will stop vancomycin. Because patient has no acute respiratory issues or never mentioned about having breathing worsening on admission. - not wheezy on exam, no cough/increased sputum so no clear COPD exac. #Cystitis - pt presented with ramos so symptoms hard to assess but is having bladder tenderness - discharged on 11/16 for hospitalization for urosepsis and was treated with zosyn due to CTX resistance noted previously, switched to po cefdinir for remaining course - CT abd on admission; "Intense inflammation of the urinary bladder is consistent with cystitis. Unchanged inflammation of the left greater than right renal pelvi and unchanged renal pelvi and intrarenal calculi bilaterally as above. " - question noninfectious cystitis, increased tamsulosin from 0.4 to 0.8 - Urology consult - UCx and BCx with no growth - CRP minimally elevated #Ambulatory disfunction - CT head wnl - ongoing issue - PT/OT recommend return to [facility] #Hypothyroidism - continue home medication - TSH WNL #Umbilical hernia - reducible with ease on admission but slightly tender while doing so - consider gen surgery f/u on an outpatient basis VTE: heparin SQ, recent hx of hematuria. Admission and Anticipated Discharge Date Admission Date: November 17, 2024 Supervising Physician Co-Signing Physician Notes Attending attestation Pt seen and examined in concert with Dr. Scales. In agreement with the documented findings as noted in the resident documentation with any exceptions or additions as noted here. Resting comfortably in bed, engaged with rehab services. Does report ongoing feeling weaker than baseline but improved since admission. VS as noted, on examination S1/S2 nl RRR no MCG. CTAB. Abd NT/ND BS+ve Cystitis with recnet ramos placement - UCx as noted, agree w/ transition to augmentin from Zosyn and monitor for ongoing imrpovement Diarrhea - significantly improved, continue supportive care Acute on chronic hypioxic respiratory failure w/ 2L baseline - chronic with unknown originating etiology from at least 3 years prior. No apparent immediate issue, current treatment course covering for PNA as well. Deconditioning w/ ambulatory dysfunction - PT/OT consultation appreciated Else see resident documentation as noted. Subjective Patient seen and evaluated at bedside this morning. No acute events overnight. States that he is feeling better. Still having some diarrhea. VSS. Hypokalemic on labs. Seen by PT/OT - recommend return to [facility] when ready. Review of Systems Review of Systems: reviewed, per HPI Physical Exam Physical Exam: Constitutional: age appropriate, no acute distress HEENT: NCAT, no conjunctival injection CV: regular rhythm, no murmur appreciated, extremities well-perfused, no LE edema Resp: CTABL, no wheezes/rales/rhonchi appreciated, no increased work of breathing GI: soft, nondistended, nontender, BS normoactive MSK: no gross deformities appreciated : ramos catheter in place Skin: warm, dry, no rash appreciated Neuro: alert, oriented, no focal neurologic deficit appreciated Results & Data Results & Data Vital Signs (Past 12 Hours) Vital Signs Temp Pulse Pulse Pulse Resp BP Pulse Ox 11/19/24 07:43 36.8 C 61 18 109/68 95 11/19/24 07:12 90 17 93 11/19/24 03:53 36.9 C 62 16 113/70 92 11/18/24 23:13 37 C 64 18 117/74 95 11/18/24 21:46 56 L 11/18/24 20:16 O2 Del Method O2 Flow Rate 11/19/24 07:43 Nasal Cannula 2 11/19/24 07:12 Nasal Cannula 2 11/19/24 03:53 Nasal Cannula 2 11/18/24 23:13 Nasal Cannula 2 11/18/24 21:46 11/18/24 20:16 Nasal Cannula 2 Resident Activity Tracking Resident Involvement: Resident Care Provided Care Provided: Adult Hospital Medicine
[2024-11-19] MEDS: SPIRONOLACTONE 12.5 MG TAB PO SCH (08:13)
[2024-11-19] MEDS: FUROSEMIDE 40 MG TAB PO SCH (08:24)
[2024-11-19 08:34] LABS: Hematocrit (blood only) 33.6 % (42.0-52.0); Hemoglobin 11.2 g/dl (14.0-18.0); Immature Granulocytes # (auto) 0.18 K/uL (0.01-0.20); Immature Granulocytes % (auto) 1.8 %; Mean Corpuscular Hemoglobin 31.4 pg (25.0-34.0); Mean Corpuscular Volume 94.1 fL (80.0-100.0); Platelet Count 208 K/uL (130-400); RDW Standard Deviation 48.2 fL (36.4-46.3); Red Blood Count 3.57 M/uL (4.70-6.10); White Blood Count 9.89 K/ul (4.8-10.8)
[2024-11-19 08:50] LABS: Alanine Aminotransferase 5.0 U/L (7-52); Albumin Globulin Ratio 1.3 (0.9-2); Albumin Level 3.5 gm/dl (3.4-5.0); Alkaline Phosphatase 62.0 U/L (34-104); Anion Gap 5.0 (3-11); Bilirubin,Total 0.6 mg/dl (0.2-1.0); Blood Urea Nitrogen 6.0 mg/dl (6-23); Calcium 8.8 mg/dl (8.6-10.3); Carbon Dioxide 35.0 mmol/L (21-32); Chloride 96.0 mmol/L (98-107); Creatinine Clr Calc Pharmacy 64.9 ml/min; Globulin 2.6 gm/dl (2.5-4.0); Glucose 104.0 mg/dl (70-99(Fasting)); Potassium 3.2 mmol/L (3.5-5.1); Sodium 136.0 mmol/L (136-145); Total Protein 6.1 gm/dl (6.0-8.3)
[2024-11-19 09:04] LABS: Thyroid Stimulating Hormone 7.004 uIu/ml (0.300-4.500)
[2024-11-19] MEDS: POTASSIUM CHLORIDE CRTAB 20 MEQ TABCR PO STA (10:44)
[2024-11-19] MEDS: AMOXICILLIN/CLAVULANATE 875 MG TAB PO SCH (17:21)
[2024-11-19] MEDS: MELATONIN 3 MG TAB PO PRN (20:57)
[2024-11-19] MEDS: POTASSIUM CHLORIDE CRTAB 20 MEQ TABCR PO ONE (20:58)
[2024-11-20 08:32] LABS: Hematocrit (blood only) 32.9 % (42.0-52.0); Hemoglobin 10.8 g/dl (14.0-18.0); Immature Granulocytes # (auto) 0.13 K/uL (0.01-0.20); Immature Granulocytes % (auto) 1.3 %; Mean Corpuscular Hemoglobin 30.5 pg (25.0-34.0); Mean Corpuscular Volume 92.9 fL (80.0-100.0); Platelet Count 236 K/uL (130-400); RDW Standard Deviation 47.6 fL (36.4-46.3); Red Blood Count 3.54 M/uL (4.70-6.10); White Blood Count 9.80 K/ul (4.8-10.8)
--- NOTE | 2024-11-20 08:34 | Hospitalist Progress Note ---
Date of Service November 20, 2024 Assessment & Plan (1) Diarrhea: (2) Acute on chronic hypoxic respiratory failure: (3) Cystitis: (4) (HFpEF) heart failure with preserved ejection fraction: Plan Pt is an 84 yo male with a past med hx of recent admission with discharge on 10/23 6 for urosepsis, BPH with LUTS and hx of kidney stones, CAD s/p stent, essential tremor, HFpEF, chronic respiratory failure/granulomatous lung disease/COPD with oxygen dependence, depression, spinal stenosis, hypothyroidism, schatzki's ring of distal esophagus, and ongoing ambulatory dysfunction with multiple admissions due to this who presents to the hospital on 11/17 for worsening hypoxia and shanda rrhea. #Diarrhea, nonbloody - ongoing for "a few days" per patient - improving - c diff negative, stool viral panel negative. - monitor electrolytes - supportive care #Acute on chronic hypoxic respiratory failure #COPD/chronic respiratory failure #Hypoxia #Oxygen dependent - pt does have chronic lung disease with hypoxia, O2 dependent at baseline - home oxygen use is 2-4L at times - currently on his baseline oxygen use - CXR notes; "Patchy bibasilar densities are overall similar to previous and may represent atelectasis though difficult to exclude mild pneumonia." #Cystitis - pt presented with ramos so symptoms hard to assess but is having bladder tenderness - discharged on 11/16 for hospitalization for urosepsis and was treated with zosyn due to CTX resistance noted previously, switched to po cefdinir for remaining course - CT abd on admission; "Intense inflammation of the urinary bladder is consistent with cystitis. Unchanged inflammation of the left greater than right renal pelvi and unchanged renal pelvi and intrarenal calculi bilaterally as above. " - question noninfectious cystitis, increased tamsulosin from 0.4 to 0.8 - Urology consult - UCx and BCx with no growth - CRP minimally elevated - Continue Augmentin #Ambulatory disfunction - CT head wnl - ongoing issue - PT/OT recommend return to [facility] #Hypothyroidism - continue home medication - TSH WNL #Umbilical hernia - reducible with ease on admission but slightly tender while doing so - consider gen surgery f/u on an outpatient basis VTE: heparin SQ, recent hx of hematuria. Admission and Anticipated Discharge Date Admission Date: November 17, 2024 Supervising Physician Co-Signing Physician Notes Attending attestation Pt seen and examined in concert with Dr. Scales. In agreement with the documented findings as noted in the resident documentation with any exceptions or additions as noted here. Resting comfortably in bed, engaged with rehab services. Does report ongoing feeling weaker than baseline but improved since admission. VS as noted, on examination S1/S2 nl RRR no MCG. CTAB. Abd NT/ND BS+ve Cystitis with recnet ramos placement - UCx as noted, tolerating Augmentin to complete total 7 day course. Diarrhea - significantly improved, continue supportive care Acute on chronic hypioxic respiratory failure w/ 2L baseline - chronic with unknown originating etiology from at least 3 years prior. No apparent immediate issue, current treatment course covering for PNA as well. Deconditioning w/ ambulatory dysfunction - PT/OT consultation appreciated - [facility] rehab services, will re-engage with goals of care in mind. Else see resident documentation as noted. Subjective Patient seen and evaluated at bedside this morning. No acute events overnight. Patient without acute complaints. Diarrhea improving. Hopeful to return to [facility], however it seems they will want him to have rehab before accepting him back. VSS. Labs stable and largely WNL. Review of Systems Review of Systems: reviewed, per HPI Physical Exam Physical Exam: Constitutional: age appropriate, no acute distress HEENT: NCAT, no conjunctival injection CV: regular rhythm, no murmur appreciated, extremities well-perfused, no LE edema Resp: CTABL, no wheezes/rales/rhonchi appreciated, no increased work of breathing GI: soft, nondistended, nontender, BS normoactive MSK: no gross deformities appreciated : ramos catheter in place Skin: warm, dry, no rash appreciated Neuro: alert, oriented, no focal neurologic deficit appreciated Results & Data Results & Data Vital Signs (Past 12 Hours) Vital Signs Temp Pulse Pulse Resp BP Pulse Ox O2 Del Method 11/20/24 07:50 37.6 C H 69 16 107/63 92 Nasal Cannula 11/20/24 07:42 Nasal Cannula 11/20/24 07:32 63 11/20/24 07:16 65 18 91 Nasal Cannula 11/20/24 03:46 36.6 C 64 18 117/64 95 Nasal Cannula 11/19/24 23:40 36.8 C 68 20 118/71 94 Nasal Cannula 11/19/24 22:01 59 L 09/29/25 21:00 Nasal Cannula O2 Flow Rate 11/20/24 07:50 3 11/20/24 07:42 3 11/20/24 07:32 11/20/24 07:16 3 11/20/24 03:46 2 11/19/24 23:40 2 11/19/24 22:01 11/19/24 21:00 3 Resident Activity Tracking Resident Involvement: Resident Care Provided Care Provided: Adult Hospital Medicine
[2024-11-20 08:53] LABS: Alanine Aminotransferase 6.0 U/L (7-52); Albumin Globulin Ratio 1.4 (0.9-2); Albumin Level 3.6 gm/dl (3.4-5.0); Alkaline Phosphatase 68.0 U/L (34-104); Anion Gap 6.0 (3-11); Bilirubin,Total 0.6 mg/dl (0.2-1.0); Blood Urea Nitrogen 7.0 mg/dl (6-23); Calcium 9.0 mg/dl (8.6-10.3); Carbon Dioxide 32.0 mmol/L (21-32); Chloride 97.0 mmol/L (98-107); Creatinine Clr Calc Pharmacy 66.7 ml/min; Globulin 2.5 gm/dl (2.5-4.0); Glucose 110.0 mg/dl (70-99(Fasting)); Potassium 4.0 mmol/L (3.5-5.1); Sodium 135.0 mmol/L (136-145); Total Protein 6.1 gm/dl (6.0-8.3)
--- NOTE | 2024-11-21 09:54 | Discharge Summary ---
Date of Service November 21, 2024 Admission HPI Per Admitting Provider Pt is an 84 yo male with a past med hx of recent admission with discharge on 11/16 for urosepsis, BPH with LUTS and hx of kidney stones, CAD s/p stent, essential tremor, HFpEF, chronic respiratory failure/granulomatous lung disease/COPD with oxygen dependence, depression, spinal stenosis, hypothyroidism, schatzki's ring of distal esophagus, and ongoing ambulatory dysfunction with multiple admissions due to this who presents to the hospital on 11/17 for worsening hypoxia and diarrhea. Pt seen at bedside. He states that he is here because the retirement staff wanted him to get evaluated as he has been having diarrhea and feels SOB. He states "if it were up to him, he would not have come in." He states on discharge yesterday he did not feel ready to leave yet. He states he felt weak, more so than normal, and that he has been having diarrhea, but that started before he was discharged from the hospital. He states the retirement told him to come in to "get his oxygen under control." He states today he had about 3-4 episodes of diarrhea which was nonbloody. He denies abdominal pain or cramping. He still has ramos in place which is draining. Admission Exam Per Admitting Provider General: Alert, no acute distress, pleasant HEENT: Normocephalic, moist oral mucosa, Cardio: Regular rate and rhythm, Resp: Lungs mostly clear to auscultation b/l, no wheezes, faint bibasilar rhonchi, GI: Soft, nondistended, umbilical hernia noted that is reducible with some discomfort, some tenderness over the area of the bladder, bowel sounds active Skin: Warm, pink, dry, Principal Diagnosis Cystitis Discharge Exam Constitutional: age appropriate, no acute distress HEENT: NCAT, no conjunctival injection CV: regular rhythm, no murmur appreciated, extremities well-perfused, no LE edema Resp: CTABL, no wheezes/rales/rhonchi appreciated, no increased work of breathing GI: soft, nondistended, nontender, BS normoactive MSK: no gross deformities appreciated : ramos catheter in place Skin: warm, dry, no rash appreciated Neuro: alert, oriented, no focal neurologic deficit appreciated Discharge Data Allergies Allergy/AdvReac Type Severity Reaction Status Date / Time tramadol AdvReac Intermediate Hallucinati Verified 03/12/23 02:38 ng grapefruit AdvReac Unknown WAS TOLD Verified 03/12/23 02:38 NOT TO TAKE BECAUSE OF CHOLESTROL PILL. Consultations 11/17/24 21:28 ED Decision to Admit Stat Ordered Studies 11/17/24 17:53 CT abd pelvis IV con only Stat CT head/brain wo con Stat Hospital Course (1) Diarrhea: (2) Acute on chronic hypoxic respiratory failure: (3) Cystitis: (4) (HFpEF) heart failure with preserved ejection fraction: Plan Pt is an 84 yo male with a past med hx of recent admission with discharge on 11/16 for urosepsis, BPH with LUTS and hx of kidney stones, CAD s/p stent, essential tremor, HFpEF, chronic respiratory failure/granulomatous lung disease/COPD with oxygen dependence, depression, spinal stenosis, hypothyroidism, schatzki's ring of distal esophagus, and ongoing ambulatory dysfunction with multiple admissions due to this who presents to the hospital on 11/17 for worsening hypoxia and diarrhea. #Diarrhea, nonbloody - improved - c diff negative, stool viral panel negative. - supportive care #Acute on chronic hypoxic respiratory failure #COPD/chronic respiratory failure #Hypoxia #Oxygen dependent - pt does have chronic lung disease with hypoxia, O2 dependent at baseline - home oxygen use is 2-4L at times - currently on his baseline oxygen use - CXR notes; "Patchy bibasilar densities are overall similar to previous and may represent atelectasis though difficult to exclude mild pneumonia." #Cystitis - pt presented with ramos so symptoms hard to assess but is having bladder tenderness - discharged on 11/16 for hospitalization for urosepsis and was treated with zosyn due to CTX resistance noted previously, switched to po cefdinir for remaining course - CT abd on admission; "Intense inflammation of the urinary bladder is consistent with cystitis. Unchanged inflammation of the left greater than right renal pelvi and unchanged renal pelvi and intrarenal calculi bilaterally as above. " - question noninfectious cystitis, increased tamsulosin from 0.4 to 0.8 - UCx and BCx with no growth - CRP minimally elevated - Continue Augmentin with last dose on 11/26/2024 - Maintain ramos and follow up with urology as an outpatient #Ambulatory disfunction - CT head wnl - ongoing issue - PT/OT recommend return to [facility] #Hypothyroidism - continue home medication - TSH WNL #Umbilical hernia - reducible with ease on admission but slightly tender while doing so - consider gen surgery f/u on an outpatient basis Total Time Total Time Spent Total Time Spent (In Minutes): see attending documentation Discharge Plan Discharge Items Patient Disposition: Personal [facility] Reason For Visit: SOB, DIARRHEA Discharge Diagnosis: Cystitis Condition on Discharge: Good Activity: Resume your previous activity Activity Comment: as tolerated Non-emergency contact: Primary Care Provider and Urologist Call non-emergency contact if: you have any medication questions, your symptoms worsen and you have a fever Follow-up/Referrals: Marvin White DO [Primary Care Provider] - Fawad Rey MD [Physician] - Diet: Regular Addtl Attending Provider Instructions: You were admitted to the hospital for diarrhea, bladder tenderness. You were treated with antibiotics and supportive care. You will continue antibiotics until 11/26/24. We will send this to your pharmacy. You are also being discharged with a Ramos catheter in place. You will need to follow up with urology as an outpatient to evaluate when this can be removed. A discharge summary will be sent to your primary care physician to ensure continuity of care. Please bring this discharge summary with you to your next of fice appointment so that your provider can review it at that time. Follow-up appointments: Make a follow-up appointment with your PCP within the next week. It is very important that you follow up with them shortly after discharge from the hospital. Please be sure to follow up with urology. Their office should reach out to you to schedule an appointment. If you do not hear from them please call: Keep all your follow-up appointments as already scheduled. If you cannot make an appointment, notify your provider. Medications: Your medication list has been reviewed and reconciled upon discharge to ensure accuracy and continuity of care. An updated list of all your medications is included with your hospital discharge paperwork. Please review this list closely, and make note of any changes. We sent a new medication called Augmentin (amoxicillin-clavulanate) to your pharmacy. Take Augmentin (875mg) one tablet twice daily until finished. If you have any issues filling these prescriptions, please call [phone] and ask to leave a message for Dr. Marco Scales. Take your medications as instructed; do not skip a dose of your medicines. Make sure all of your doctors know every medicine you are taking (including jeiu-nue-ylhjsad medicines, vitamins, and supplements). Call your primary care provider before taking any new medicines (including kxda-mdf-gbefjmq medicines, vitamins, and supplements), because some of these may interact with your current medications, or may make your symptoms worse. Tell your primary care provider if you cannot afford your medications. CONTACT YOUR PRIMARY CARE PROVIDER if you experience any of the following: Fever Difficulty following your treatment plan, or difficulty taking medications CALL 911 OR GO TO THE EMERGENCY DEPARTMENT if you experience any of the following: Sudden, severe abdominal pain or nausea/vomiting Severe chest pain, or chest pain that radiates (moves) to your jaw or arm Sudden, severe shortness of breath or difficulty breathing Thank you for allowing us to participate in your care. Pending Studies at Discharge: No Stand-Alone Forms: My [facility] Skilled Items Patient informed of condition?: Yes DNR: No Discharge Level of Care: Other Communicable Disease: No Discharge Prognosis: Stable Lines: None Urinary Catheter: Yes Medications and DC Order Prescriptions: New amoxicillin-pot clavulanate 875-125 mg tablet 1 tab PO Q12H Qty: 11 0RF Continued oxybutynin chloride 10 mg tablet extended release 24hr 10 mg PO QAM aspirin 81 mg Tablet,Chewable 81 mg PO QAM polyethylene glycol 3350 [Miralax] 17 gram/dose Powder 17 g PO QAM Rx Instructions: Hold for diarrhea meclizine 12.5 mg tablet 12.5 mg PO Q8H PRN (Reason: Dizziness Or Vertigo) acetaminophen 500 mg Tablet 1,000 mg PO DAILY PRN (Reason: Pain/Fever) magnesium hydroxide [Milk of Magnesia] 400 mg/5 mL Suspension 2,400 mg PO DAILY PRN (Reason: Constipation) finasteride 5 mg Tablet 5 mg PO QAM Deep Sea Nasal 0.65 % Aerosol,[place] 2 spray INTRANASAL QID diclofenac sodium 1 % Gel 2 g TOPICAL TID PRN (Reason: Pain) Rx Instructions: apply to single elbow, wrist or hand; for hand includes palm/fingers/back of hand clopidogrel [Plavix] 75 mg tablet 75 mg PO QAM Patient Comments: Per medication list this is currently on hold, no restart date listed. 11/10/24 allopurinol 100 mg tablet 200 mg PO QAM acetaminophen [Tylenol Extra Strength] 500 mg tablet 1,000 mg PO BID citalopram 20 mg tablet 20 mg PO QAM duloxetine 60 mg capsule,delayed release(DR/EC) 60 mg PO QAM docusate sodium 100 mg capsule 100 mg PO QPM primidone 50 mg Tablet 25 mg PO DAILY PRN (Reason: Tremor) Qty: 30 0RF primidone 50 mg Tablet 50 mg PO HS Qty: 30 0RF levothyroxine [Synthroid] 100 mcg Tablet 100 mcg PO DAILYBB Qty: 30 0RF furosemide 40 mg tablet 40 mg PO BID Qty: 60 0RF spironolactone 25 mg tablet 12.5 mg PO MOWEFR Qty: 30 0RF pantoprazole 20 mg tablet,delayed release (DR/EC) 20 mg PO QAM Qty: 30 0RF tamsulosin 0.4 mg capsule 0.4 mg PO HS Qty: 30 0RF montelukast [Singulair] 10 mg Tablet 10 mg PO QAM Qty: 30 0RF albuterol sulfate 90 mcg/actuation HFA aerosol inhaler 2 inh INHALATION Q2H PRN (Reason: Wheezing) Qty: 8.5 0RF Rx Instructions: last filled 11/08/23 25 day supply propranolol 20 mg Tablet 20 mg PO TID Qty: 90 0RF rosuvastatin 5 mg tablet 5 mg PO QAM Qty: 30 0RF Combivent Respimat 20-100 mcg/actuation mist 1 puff INHALATION QID Qty: 4 0RF Discontinued cefdinir 300 mg capsule 300 mg PO BID Rx Instructions: 11/16-11/17 Discharge Orders: Discharge Order (Routine); Ordered 11/21/24 Ordered By: Marco Scales Admission Data Admit Date/Time: 11/17/24 23:30 Attending Provider: Fernando Leyva Admit Provider: Jayde Medina Primary Care Provider: Marvin White Other Providers: Dami Stein Other Interventions: Discharge Summary Assessment (RN) Last Done: 11/21/24 14:29 Supervising Physician Co-Signing Physician Notes Attending attestation Pt seen and examined in concert with Dr. Scales. In agreement with the documented findings as noted in the resident documentation with any exceptions or additions as noted here. Resting comfortably in bed, engaged with rehab services, no acute complaints. VS as noted, on examination S1/S2 nl RRR no MCG. CTAB. Abd NT/ND BS+ve Cystitis with recent ramos placement - UCx as noted - Augmentin to complete total 7 day course. Diarrhea - significantly improved, continue supportive care Acute on chronic hypoxic respiratory failure w/ 2L baseline - chronic with unknown originating etiology from at least 3 years prior. No apparent immediate issue, current treatment course covering for PNA as well. Deconditioning w/ ambulatory dysfunction - PT/OT consultation appreciated - c ontinue strengthening and support activities following discharge. Else see resident documentation as noted. Total attending physician time spent with this patient's care on the day of discharge: 32 minutes. Resident Activity Tracking Resident Involvement: Resident Care Provided Care Provided: Adult Hospital Medicine
[2024-11-21 11:12] VITALS: TEMP 97.5
[2024-11-21 14:30] VITALS: BP 117/67
[2024-11-21 15:27] VITALS: PULSE 60; RESP 18; O2SAT 95
== END 2024-11-21 15:46 | disposition home or self-care (01) | DRG 391 ==
LOC: ED 17:38 → SUATTDRO 23:30 → 2N 23:30
DX: N40.1 Benign prostatic hyperplasia with lower urinary tract symptoms; J44.9 Chronic obstructive pulmonary disease, unspecified; R19.7 Diarrhea, unspecified; Z99.81 Dependence on supplemental oxygen; G25.0 Essential tremor; J96.21 Acute and chronic respiratory failure with hypoxia; R26.2 Difficulty in walking, not elsewhere classified; J96.12 Chronic respiratory failure with hypercapnia; K42.9 Umbilical hernia without obstruction or gangrene; I50.32 Chronic diastolic (congestive) heart failure; K21.9 Gastro-esophageal reflux disease without esophagitis; Z86.711 Personal history of pulmonary embolism; E78.5 Hyperlipidemia, unspecified; F32.A Depression, unspecified; I11.0 Hypertensive heart disease with heart failure; I25.2 Old myocardial infarction; N30.00 Acute cystitis without hematuria; E03.9 Hypothyroidism, unspecified; I25.10 Atherosclerotic heart disease of native coronary artery without angina pectoris; Z95.5 Presence of coronary angioplasty implant and graft; D72.829 Elevated white blood cell count, unspecified; Z87.891 Personal history of nicotine dependence